=== PATIENT | male | born 1985 | race Caucasian/White ===

== ENCOUNTER 2016-10-18 | Inpatient (IN) | END 2017-10-17 23:59 | disposition other institution (70) | DRG 133 | DX: J96.10 Chronic respiratory failure, unspecified whether with hypoxia or hypercapnia (principal); G93.1 Anoxic brain damage, not elsewhere classified; G91.1 Obstructive hydrocephalus; Z93.0 Tracheostomy status; R13.10 Dysphagia, unspecified; I50.9 Heart failure, unspecified; Z93.1 Gastrostomy status; E11.9 Type 2 diabetes mellitus without complications; Z22.8 Carrier of other infectious diseases; Z98.2 Presence of cerebrospinal fluid drainage device; X58.XXXA Exposure to other specified factors, initial encounter; K59.00 Constipation, unspecified ==

== ENCOUNTER 2017-10-18 | Inpatient (IN) | END 2018-10-17 23:59 | disposition still patient (30) | DRG 133 | DX: J96.10 Chronic respiratory failure, unspecified whether with hypoxia or hypercapnia (principal); G93.1 Anoxic brain damage, not elsewhere classified; G91.1 Obstructive hydrocephalus; J18.9 Pneumonia, unspecified organism; Z93.0 Tracheostomy status; I50.9 Heart failure, unspecified; R13.10 Dysphagia, unspecified; Z93.1 Gastrostomy status; E11.9 Type 2 diabetes mellitus without complications; Z22.8 Carrier of other infectious diseases; Z98.2 Presence of cerebrospinal fluid drainage device; X58.XXXA Exposure to other specified factors, initial encounter; K59.00 Constipation, unspecified; E78.5 Hyperlipidemia, unspecified; H00.016 Hordeolum externum left eye, unspecified eyelid; H00.19 Chalazion unspecified eye, unspecified eyelid; L30.9 Dermatitis, unspecified ==

== ENCOUNTER 2018-10-18 | Inpatient (IN) | END 2019-10-17 23:59 | disposition still patient (30) | DRG 189 | DX: J96.10 Chronic respiratory failure, unspecified whether with hypoxia or hypercapnia (principal); G93.1 Anoxic brain damage, not elsewhere classified; G91.1 Obstructive hydrocephalus; Z93.0 Tracheostomy status; I50.9 Heart failure, unspecified; R13.10 Dysphagia, unspecified; Z93.1 Gastrostomy status; Z86.74 Personal history of sudden cardiac arrest; E11.9 Type 2 diabetes mellitus without complications; Z22.8 Carrier of other infectious diseases; Z98.2 Presence of cerebrospinal fluid drainage device; E78.5 Hyperlipidemia, unspecified; H01.003 Unspecified blepharitis right eye, unspecified eyelid; H10.9 Unspecified conjunctivitis; K21.9 Gastro-esophageal reflux disease without esophagitis; L08.9 Local infection of the skin and subcutaneous tissue, unspecified ==

== ENCOUNTER 2020-06-16 09:21 | Inpatient (IN) | payer MEDICARE, OTHER ==
[~2020-06-16] VITALS: Ht 167.6 cm; Wt 62.1 kg
[~2020-06-16 09:21] MED LIST: ACET650S26 GT; ALBU2.5V38 IH; BACL10TA GT; BISA10SU12 RC; CHOL100043 GT; HEPA500014 IJ; OMEG1CAP GT; OMEP20CA15 GT; [UNRECOGNIZED DRUG - OTHER] GT
--- NOTE | 2020-06-16 09:26 | NUR ---
MD at bedside to assess patient.
[2020-06-16] MEDS ORDERED: LORA10TA7 PO (10:01)
--- NOTE | 2020-06-16 10:05 | NUR ---
Patient suctiond via tracheostomy. Saturation 96%.
[2020-06-16] MEDS ORDERED: LACT-209 GT (10:10)
[2020-06-16] MEDS ORDERED: Z GUARD REMEDY PASTE TP (10:10)
[2020-06-16] MEDS ORDERED: VITAMIN A&D OINT TP (10:10)
[2020-06-16] MEDS ORDERED: HYDR237S13 TP (10:10)
[2020-06-16 11:38] LABS: BASOPHILS % (AUTO) 0.3 % (0.0-2.0); EOSINOPHILS # (AUTO) 0.1 K/uL (0.0-0.7); EOSINOPHILS % (AUTO) 0.7 % (0.0-7.0); HEMATOCRIT 47.6 % (36.7-47.1); HEMOGLOBIN 16.1 g/dL (12.5-16.3); LYMPHOCYTES # (AUTO) 2.2 K/uL (20.0-40.0); LYMPHOCYTES % (AUTO) 19.9 % (20.5-51.5); MEAN CORPUSCULAR HEMOGLOBIN 31.5 uug (23.8-33.4); MEAN CORPUSCULAR HGB CONC 34 g/dL (32.5-36.3); MEAN CORPUSCULAR VOLUME 93.2 fL (73.0-96.2); MONOCYTES % (AUTO) 8.7 % (0.0-11.0); NEUTROPHILS # (AUTO) 7.9 K/uL (1.8-8.9); NEUTROPHILS % (AUTO) 70.4 % (38.5-71.5); PLATELET COUNT (AUTO) 209 K/uL (152-348); WHITE BLOOD COUNT (AUTO) 11.2 K/uL (3.6-10.2)
[2020-06-16 11:45] LABS: CREATININE 0.8 mg/dL (0.6-1.3); POTASSIUM 4.6 mmol/L (3.5-5.1)
[2020-06-16 11:50] LABS: BILIRUBIN,TOTAL 0.7 mg/dL (0.2-1.0); TOTAL PROTEIN, SERUM 8.1 g/dL (6.4-8.2)
--- NOTE | 2020-06-16 12:47 | NUR ---
Report called to Rosalie patient being admitted to 3rd floor 312
[2020-06-16] MEDS ORDERED: HYDROCODONE/APAP 5-325MG TABLET GT PRN (13:00)
[2020-06-16] MEDS ORDERED: Z GUARD REMEDY PASTE 57 GM TUBE TOP PRN (13:00)
[2020-06-16] MEDS ORDERED: MAGNESIUM HYDROXIDE 30 ML LIQUID UDC GT PRN (13:00)
[2020-06-16] MEDS ORDERED: ONDANSETRON 4 MG/2 ML VIAL IV PRN (13:00)
--- NOTE | 2020-06-16 14:00 | NUR ---
Patient brought up from ER in bed. He is awake, eyes are open, unable to assess orientation. Patient shows no signs of respiratory distress at this time. Patient G-tube in out and patient is severely contracted. Patient has a mask on because he has been spitting at staff. Patient seems agitated when we try to reposition in bed. Patient is a aspiration risk so bed is elevated to 35 degrees. Patient is NPO. No IV access available. Safety precautions in place, be in the lowest position and locked with alarm activated. Will continue to observe and monitor. Addendum: 06/16/20 at 1916 by ANTOINETTE CHESTER RN Patient does have IV access in left forearm 20 gauge
[2020-06-16 15:00] VITALS: BP 122/46
--- NOTE | 2020-06-16 18:28 | NUR ---
Patient is resting in bed with no signs of distress noted. Patient is stable. No IV access. Patient is on 6 L of oxygen and saturating well. Patient is currently NPO pending EDG scheduled for tomorrow at 1130. Safety precautions in place, bed is lowest position and locked with alarm activated. Will endorse patient to the oncoming nurse.
--- NOTE | 2020-06-16 19:15 | NUR ---
Patient does have IV access in left forearm 20 gauge
--- NOTE | 2020-06-16 19:45 | NUR ---
Received patient asleep. Patient shows no signs or symptoms of distress at this time. Vital signs stable. NSR on tele monitor. Bed set to lowest position. Call light within reach. Padded side rails X2 are up. Will continue to monitor patient.
[2020-06-16 20:02] VITALS: BP 120/60
[2020-06-16] MEDS ORDERED: IV NS 1000 ML 1,000 ML IV PRN (21:30)
[2020-06-17 00:39] VITALS: BP 115/73
--- NOTE | 2020-06-17 00:45 | NUR ---
Report given to to GURJIT Moon for continuity of care.
[2020-06-17 04:00] VITALS: BP 113/61
[2020-06-17 06:37] LABS: BASOPHILS % (AUTO) 0.2 % (0.0-2.0); EOSINOPHILS # (AUTO) 0.1 K/uL (0.0-0.7); EOSINOPHILS % (AUTO) 0.8 % (0.0-7.0); HEMOGLOBIN 15.4 g/dL (12.5-16.3); LYMPHOCYTES # (AUTO) 2.4 K/uL (20.0-40.0); LYMPHOCYTES % (AUTO) 19.3 % (20.5-51.5); MEAN CORPUSCULAR HEMOGLOBIN 32.1 uug (23.8-33.4); MEAN CORPUSCULAR HGB CONC 34 g/dL (32.5-36.3); MEAN CORPUSCULAR VOLUME 93.7 fL (73.0-96.2); MONOCYTES # (AUTO) 1.6 K/uL (2.0-10.0); MONOCYTES % (AUTO) 12.4 % (0.0-11.0); NEUTROPHILS # (AUTO) 8.4 K/uL (1.8-8.9); NEUTROPHILS % (AUTO) 67.3 % (38.5-71.5); PLATELET COUNT (AUTO) 215 K/uL (152-348); WHITE BLOOD COUNT (AUTO) 12.5 K/uL (3.6-10.2)
--- NOTE | 2020-06-17 06:50 | NUR ---
Patient slept intermittently nonverbal with trach Fio2 at 28%, saturating well at 97% no s/s of distress.Bilateral upper ext and lower extremities contracted .HOB remained elevated.Suctioned PRN via trach tolerated well.Right upper arm 22 g intact with NS running well at 75cc /hr .Changed and repositioned patient with 2 person assist.Off load bilateral heel.Bed in lowest position and locked.Endorsed to oncoming shift.
[2020-06-17 06:54] LABS: CREATININE 0.8 mg/dL (0.6-1.3); MAGNESIUM 2.2 mg/dL (1.8-2.4); PHOSPHOROUS 3.3 mg/dL (2.5-4.9); POTASSIUM 4.1 mmol/L (3.5-5.1)
[2020-06-17 08:11] VITALS: BP 128/55
--- NOTE | 2020-06-17 09:40 | NUR ---
With I&O catheter patient with 350 cc urine output.
[2020-06-17] MEDS ORDERED: CLINDAMYCIN PHOSPHATE 600 MG/4 ML VIAL ONE (11:33)
--- NOTE | 2020-06-17 11:45 | NUR ---
Pt. taken down for PEG replacement. vitals stable.
--- NOTE | 2020-06-17 13:35 | NUR ---
Patient back from surgery G-T replaced vitals stable sbp of 117/67, HR of 88, 98.9, RR 18 and saturation of 98% on cool-aerosol. No visible signs of distress and orders to use G-t. received. Patient wearing a binder. Addendum: 06/17/20 at 1610 by AMANDA MCKEON RN PEG-T insertion site c.d.i. no s/of complications noted, binder abdominal binder in place.
[2020-06-17 13:36] VITALS: BP 117/67
--- NOTE | 2020-06-17 14:00 | NUR ---
Attending notified that patient is not wetting diaper, orders to continue monitor received.
[2020-06-17 16:00] VITALS: BP 140/75
--- NOTE | 2020-06-17 16:07 | NUR ---
Telephone report given to Palmira Natarajan. latest vitals reported: sbp 140/75, hr of 104 temp of 100.6 for which pt. was medicated and reported to receiving rn. SAt of 95-100% on cool aerosol. IV line to DENITA martin. Awaiting for pt. to be pickling grader.
--- NOTE | 2020-06-17 16:45 | NUR ---
Patient taken up via own bed by Palmira Natarajan. vitals stable no visible signs of distress.
== END 2020-06-17 16:40 | DRG 394 ==
LOC: ER 09:21 → TELE3 13:51
PROVIDERS: ADMIT Internal Medicine; ATTEND Internal Medicine
PROC: 0D20XUZ Change Feeding Device in Upper Intestinal Tract, External Approach (ICD-10-PCS; principal; 2020-06-17)
DX: Z43.1 Encounter for attention to gastrostomy (principal); G93.1 Anoxic brain damage, not elsewhere classified; J96.10 Chronic respiratory failure, unspecified whether with hypoxia or hypercapnia; G82.20 Paraplegia, unspecified; Z98.2 Presence of cerebrospinal fluid drainage device; D72.829 Elevated white blood cell count, unspecified; G40.909 Epilepsy, unspecified, not intractable, without status epilepticus; Z93.0 Tracheostomy status; K21.9 Gastro-esophageal reflux disease without esophagitis; Z86.69 Personal history of other diseases of the nervous system and sense organs
CPT/HCPCS: 36415; 71045; 74018; 83735; 84100; 85025; 85610; 87040; 87086; A4217; A4663; C1758; G0378; J3490; J7030

== ENCOUNTER → 2020-10-17 23:59 | Inpatient (IN) | payer MEDICARE, OTHER ==
[2019-10-19 11:28] VITALS: BP 125/61
[2019-10-19 20:14] VITALS: BP 95/58
[2019-10-19] MEDS: Z GUARD REMEDY PASTE 57 GM TUBE TOP SCH (20:28)
[2019-10-19] MEDS: [UNRECOGNIZED DRUG - OTHER] GT SCH (20:28)
[2019-10-19] MEDS: BACLOFEN 10 MG TABLET GT SCH (20:28)
[2019-10-19] MEDS: COD LIVER OIL/ZINC OXIDE OINT 113 GM TUBE TP SCH (20:28)
[2019-10-19] MEDS: BENZOYL PEROXIDE 10% GEL 60 GM TUBE TP SCH (20:28)
[2019-10-19] MEDS: OMEGA-3 FATTY ACIDS/FISH OIL CAPSULE GT SCH (20:28)
[2019-10-19] MEDS: [UNRECOGNIZED DRUG - OTHER] XX SCH (20:29)
[2019-10-19] MEDS: HYDROGEN PEROXIDE 3% 118 ML BOTTLE TP SCH (20:40)
[2019-10-19] MEDS: HEPARIN SODIUM,PORCINE 5,000 UNITS/ML VIAL SQ SCH (21:51)
[2019-10-19 22:25] VITALS: BP 95/58
[2019-10-20] MEDS: CHOLECALCIFEROL 1,000 UNIT TABLET GT SCH (05:51)
[2019-10-20] MEDS: LORATADINE 10 MG TABLET GT SCH (05:51)
[2019-10-20] MEDS: OMEPRAZOLE 20 MG CAPSULE.DR GT SCH (05:51)
[2019-10-20] MEDS: [UNRECOGNIZED DRUG - OTHER] GT SCH ×2 (08:07→20:25)
[2019-10-20] MEDS: BACLOFEN 10 MG TABLET GT SCH ×2 (08:07→20:25)
[2019-10-20] MEDS: HEPARIN SODIUM,PORCINE 5,000 UNITS/ML VIAL SQ SCH ×2 (08:08→21:00)
[2019-10-20] MEDS: COD LIVER OIL/ZINC OXIDE OINT 113 GM TUBE TP SCH ×2 (08:09→20:26)
[2019-10-20] MEDS: Z GUARD REMEDY PASTE 57 GM TUBE TOP SCH ×2 (08:09→20:26)
[2019-10-20] MEDS: VITAMINS A AND D OINT TP SCH (09:00)
[2019-10-20] MEDS: [UNRECOGNIZED DRUG - OTHER] XX SCH ×2 (09:00→20:26)
[2019-10-20] MEDS: HYDROGEN PEROXIDE 3% 118 ML BOTTLE TP SCH ×2 (09:54→21:31)
[2019-10-20 11:14] VITALS: BP 113/52
[2019-10-20 20:25] VITALS: BP 100/62
[2019-10-20] MEDS: OMEGA-3 FATTY ACIDS/FISH OIL CAPSULE GT SCH (20:25)
[2019-10-20] MEDS: BENZOYL PEROXIDE 10% GEL 60 GM TUBE TP SCH (20:26)
[2019-10-21] MEDS: JEVITY 1.2 1000 ML LIQUID GT PRN (05:31)
[2019-10-21] MEDS: LORATADINE 10 MG TABLET GT SCH (05:31)
[2019-10-21] MEDS: OMEPRAZOLE 20 MG CAPSULE.DR GT SCH (05:31)
[2019-10-21] MEDS: CHOLECALCIFEROL 1,000 UNIT TABLET GT SCH (05:31)
[2019-10-21 07:45] VITALS: BP 122/65
[2019-10-21] MEDS: [UNRECOGNIZED DRUG - OTHER] GT SCH ×2 (08:17→21:39)
[2019-10-21] MEDS: BACLOFEN 10 MG TABLET GT SCH ×2 (08:17→21:39)
[2019-10-21] MEDS: COD LIVER OIL/ZINC OXIDE OINT 113 GM TUBE TP SCH ×2 (08:18→21:46)
[2019-10-21] MEDS: Z GUARD REMEDY PASTE 57 GM TUBE TOP SCH ×2 (08:18→21:46)
[2019-10-21] MEDS: VITAMINS A AND D OINT TP SCH (08:19)
[2019-10-21] MEDS: [UNRECOGNIZED DRUG - OTHER] XX SCH ×2 (08:19→21:46)
[2019-10-21] MEDS: HEPARIN SODIUM,PORCINE 5,000 UNITS/ML VIAL SQ SCH ×2 (08:22→21:44)
[2019-10-21] MEDS: HYDROGEN PEROXIDE 3% 118 ML BOTTLE TP SCH ×2 (09:30→21:56)
[2019-10-21] MEDS: OMEGA-3 FATTY ACIDS/FISH OIL CAPSULE GT SCH (21:39)
[2019-10-21] MEDS: BENZOYL PEROXIDE 10% GEL 60 GM TUBE TP SCH (21:46)
[2019-10-21 22:35] VITALS: BP 100/70
[2019-10-22] MEDS: JEVITY 1.2 1000 ML LIQUID GT PRN (01:17)
[2019-10-22] MEDS: CHOLECALCIFEROL 1,000 UNIT TABLET GT SCH (06:04)
[2019-10-22] MEDS: OMEPRAZOLE 20 MG CAPSULE.DR GT SCH (06:04)
[2019-10-22] MEDS: LORATADINE 10 MG TABLET GT SCH (06:04)
[2019-10-22] MEDS: HYDROGEN PEROXIDE 3% 118 ML BOTTLE TP SCH ×2 (07:45→21:17)
[2019-10-22 08:03] VITALS: BP 108/67
[2019-10-22] MEDS: Z GUARD REMEDY PASTE 57 GM TUBE TOP SCH ×2 (08:33→21:47)
[2019-10-22] MEDS: HEPARIN SODIUM,PORCINE 5,000 UNITS/ML VIAL SQ SCH ×2 (08:33→20:21)
[2019-10-22] MEDS: BACLOFEN 10 MG TABLET GT SCH ×2 (08:33→20:19)
[2019-10-22] MEDS: [UNRECOGNIZED DRUG - OTHER] GT SCH ×2 (08:33→20:19)
[2019-10-22] MEDS: COD LIVER OIL/ZINC OXIDE OINT 113 GM TUBE TP SCH ×2 (08:34→21:47)
[2019-10-22] MEDS: [UNRECOGNIZED DRUG - OTHER] XX SCH ×2 (08:34→21:47)
[2019-10-22] MEDS: VITAMINS A AND D OINT TP SCH (08:34)
[2019-10-22] MEDS: OMEGA-3 FATTY ACIDS/FISH OIL CAPSULE GT SCH (20:19)
[2019-10-22] MEDS: BENZOYL PEROXIDE 10% GEL 60 GM TUBE TP SCH (21:47)
[2019-10-22 22:00] VITALS: BP 101/74
[2019-10-23] MEDS: CHOLECALCIFEROL 1,000 UNIT TABLET GT SCH (05:29)
[2019-10-23] MEDS: LORATADINE 10 MG TABLET GT SCH (05:29)
[2019-10-23] MEDS: OMEPRAZOLE 20 MG CAPSULE.DR GT SCH (05:29)
[2019-10-23] MEDS: JEVITY 1.2 1000 ML LIQUID GT PRN (06:03)
[2019-10-23 08:03] VITALS: BP 113/77
[2019-10-23] MEDS: [UNRECOGNIZED DRUG - OTHER] GT SCH ×2 (08:23→21:10)
[2019-10-23] MEDS: BACLOFEN 10 MG TABLET GT SCH ×2 (08:23→21:09)
[2019-10-23] MEDS: Z GUARD REMEDY PASTE 57 GM TUBE TOP SCH ×2 (08:24→21:10)
[2019-10-23] MEDS: HEPARIN SODIUM,PORCINE 5,000 UNITS/ML VIAL SQ SCH ×2 (08:24→21:14)
[2019-10-23] MEDS: COD LIVER OIL/ZINC OXIDE OINT 113 GM TUBE TP SCH ×2 (08:25→21:10)
[2019-10-23] MEDS: VITAMINS A AND D OINT TP SCH (08:25)
[2019-10-23] MEDS: HYDROGEN PEROXIDE 3% 118 ML BOTTLE TP SCH ×2 (09:00→21:07)
[2019-10-23] MEDS: [UNRECOGNIZED DRUG - OTHER] XX SCH ×2 (09:57→21:11)
[2019-10-23 20:29] VITALS: BP 110/69
[2019-10-23] MEDS: OMEGA-3 FATTY ACIDS/FISH OIL CAPSULE GT SCH (21:09)
[2019-10-23] MEDS: BENZOYL PEROXIDE 10% GEL 60 GM TUBE TP SCH (21:10)
[2019-10-24] MEDS: JEVITY 1.2 1000 ML LIQUID GT PRN (00:55)
[2019-10-24] MEDS: LORATADINE 10 MG TABLET GT SCH (05:52)
[2019-10-24] MEDS: CHOLECALCIFEROL 1,000 UNIT TABLET GT SCH (05:53)
[2019-10-24] MEDS: OMEPRAZOLE 20 MG CAPSULE.DR GT SCH (05:53)
[2019-10-24 08:03] VITALS: BP 118/72
[2019-10-24] MEDS: HEPARIN SODIUM,PORCINE 5,000 UNITS/ML VIAL SQ SCH ×2 (08:23→20:35)
[2019-10-24] MEDS: Z GUARD REMEDY PASTE 57 GM TUBE TOP SCH ×2 (08:34→20:33)
[2019-10-24] MEDS: [UNRECOGNIZED DRUG - OTHER] GT SCH ×2 (08:34→20:33)
[2019-10-24] MEDS: VITAMINS A AND D OINT TP SCH (08:34)
[2019-10-24] MEDS: BACLOFEN 10 MG TABLET GT SCH ×2 (08:34→20:33)
[2019-10-24] MEDS: COD LIVER OIL/ZINC OXIDE OINT 113 GM TUBE TP SCH ×2 (08:34→20:33)
[2019-10-24] MEDS: [UNRECOGNIZED DRUG - OTHER] XX SCH ×2 (08:35→20:33)
[2019-10-24] MEDS: HYDROGEN PEROXIDE 3% 118 ML BOTTLE TP SCH ×2 (09:00→20:33)
[2019-10-24 19:57] VITALS: BP 110/73
[2019-10-24] MEDS: OMEGA-3 FATTY ACIDS/FISH OIL CAPSULE GT SCH (20:33)
[2019-10-24] MEDS: BENZOYL PEROXIDE 10% GEL 60 GM TUBE TP SCH (20:40)
[2019-10-25] MEDS: LORATADINE 10 MG TABLET GT SCH (05:15)
[2019-10-25] MEDS: OMEPRAZOLE 20 MG CAPSULE.DR GT SCH (05:15)
[2019-10-25] MEDS: CHOLECALCIFEROL 1,000 UNIT TABLET GT SCH (05:16)
[2019-10-25 08:00] VITALS: BP 126/54
[2019-10-25] MEDS: Z GUARD REMEDY PASTE 57 GM TUBE TOP SCH ×2 (09:00→21:11)
[2019-10-25] MEDS: [UNRECOGNIZED DRUG - OTHER] GT SCH ×2 (09:00→21:10)
[2019-10-25] MEDS: [UNRECOGNIZED DRUG - OTHER] XX SCH ×2 (09:00→21:11)
[2019-10-25] MEDS: BACLOFEN 10 MG TABLET GT SCH ×2 (09:00→21:10)
[2019-10-25] MEDS: VITAMINS A AND D OINT TP SCH (09:00)
[2019-10-25] MEDS: COD LIVER OIL/ZINC OXIDE OINT 113 GM TUBE TP SCH ×2 (09:00→21:11)
[2019-10-25] MEDS: HEPARIN SODIUM,PORCINE 5,000 UNITS/ML VIAL SQ SCH ×2 (09:00→21:11)
[2019-10-25] MEDS: HYDROGEN PEROXIDE 3% 118 ML BOTTLE TP SCH ×2 (09:07→21:04)
--- NOTE | 2019-10-25 10:57 | NUR ---
SW called patient's mother Lizzette [phone] to discuss a time to meet to review and obtain signatures on patient's annual admission paperwork. Lizzette stated that she will be visiting the patient tomorrow night, and asked if SW can leave the forms for her to review and sign. CHARU stated that SW will leave the paperwork in a sealed envelope in patient's room, and that Lizzette can review and sign them, and return them to SW once she is done. Lizzette expressed agreement. CHARU prepared the packet of forms, and left them in patient's room, in a sealed envelope, with Lizzette's name written on the envelope.
[2019-10-25 20:19] VITALS: BP 101/73
[2019-10-25] MEDS: OMEGA-3 FATTY ACIDS/FISH OIL CAPSULE GT SCH (21:10)
[2019-10-25] MEDS: BENZOYL PEROXIDE 10% GEL 60 GM TUBE TP SCH (21:11)
[2019-10-25] MEDS: JEVITY 1.2 1000 ML LIQUID GT PRN (21:11)
[2019-10-26] MEDS: LORATADINE 10 MG TABLET GT SCH (06:20)
[2019-10-26] MEDS: CHOLECALCIFEROL 1,000 UNIT TABLET GT SCH (06:21)
[2019-10-26] MEDS: OMEPRAZOLE 20 MG CAPSULE.DR GT SCH (06:21)
[2019-10-26] MEDS: BACLOFEN 10 MG TABLET GT SCH ×2 (08:15→21:39)
[2019-10-26] MEDS: [UNRECOGNIZED DRUG - OTHER] GT SCH ×2 (08:16→21:39)
[2019-10-26] MEDS: VITAMINS A AND D OINT TP SCH (08:17)
[2019-10-26] MEDS: Z GUARD REMEDY PASTE 57 GM TUBE TOP SCH ×2 (08:17→21:42)
[2019-10-26] MEDS: HEPARIN SODIUM,PORCINE 5,000 UNITS/ML VIAL SQ SCH ×2 (08:17→21:41)
[2019-10-26] MEDS: COD LIVER OIL/ZINC OXIDE OINT 113 GM TUBE TP SCH ×2 (08:17→21:42)
[2019-10-26] MEDS: [UNRECOGNIZED DRUG - OTHER] XX SCH ×2 (08:18→21:44)
[2019-10-26 08:30] VITALS: BP 106/51
[2019-10-26] MEDS: HYDROGEN PEROXIDE 3% 118 ML BOTTLE TP SCH ×2 (09:00→21:57)
[2019-10-26] MEDS: JEVITY 1.2 1000 ML LIQUID GT PRN (17:11)
[2019-10-26 20:48] VITALS: BP 119/77
[2019-10-26] MEDS: OMEGA-3 FATTY ACIDS/FISH OIL CAPSULE GT SCH (21:38)
[2019-10-26] MEDS: BENZOYL PEROXIDE 10% GEL 60 GM TUBE TP SCH (21:42)
[2019-10-27] MEDS: OMEPRAZOLE 20 MG CAPSULE.DR GT SCH (06:00)
[2019-10-27] MEDS: CHOLECALCIFEROL 1,000 UNIT TABLET GT SCH (06:00)
[2019-10-27] MEDS: LORATADINE 10 MG TABLET GT SCH (06:00)
[2019-10-27 08:02] VITALS: BP 121/73
[2019-10-27] MEDS: [UNRECOGNIZED DRUG - OTHER] GT SCH ×2 (08:18→20:42)
[2019-10-27] MEDS: BACLOFEN 10 MG TABLET GT SCH ×2 (08:18→20:42)
[2019-10-27] MEDS: COD LIVER OIL/ZINC OXIDE OINT 113 GM TUBE TP SCH ×2 (08:19→20:42)
[2019-10-27] MEDS: Z GUARD REMEDY PASTE 57 GM TUBE TOP SCH ×2 (08:19→20:42)
[2019-10-27] MEDS: [UNRECOGNIZED DRUG - OTHER] XX SCH ×2 (08:19→20:42)
[2019-10-27] MEDS: HEPARIN SODIUM,PORCINE 5,000 UNITS/ML VIAL SQ SCH ×2 (08:19→20:42)
[2019-10-27] MEDS: VITAMINS A AND D OINT TP SCH (08:19)
[2019-10-27] MEDS: HYDROGEN PEROXIDE 3% 118 ML BOTTLE TP SCH ×2 (09:00→21:29)
[2019-10-27] MEDS: JEVITY 1.2 1000 ML LIQUID GT PRN (12:15)
[2019-10-27 20:41] VITALS: BP 111/76
[2019-10-27] MEDS: OMEGA-3 FATTY ACIDS/FISH OIL CAPSULE GT SCH (20:41)
[2019-10-27] MEDS: BENZOYL PEROXIDE 10% GEL 60 GM TUBE TP SCH (20:42)
[2019-10-28] MEDS: JEVITY 1.2 1000 ML LIQUID GT PRN ×2 (02:15→20:54)
[2019-10-28] MEDS: OMEPRAZOLE 20 MG CAPSULE.DR GT SCH (05:58)
[2019-10-28] MEDS: LORATADINE 10 MG TABLET GT SCH (05:58)
[2019-10-28] MEDS: CHOLECALCIFEROL 1,000 UNIT TABLET GT SCH (05:58)
[2019-10-28 08:02] VITALS: BP 128/86
[2019-10-28] MEDS: [UNRECOGNIZED DRUG - OTHER] XX SCH ×2 (09:00→20:26)
[2019-10-28] MEDS: Z GUARD REMEDY PASTE 57 GM TUBE TOP SCH ×2 (09:00→20:26)
[2019-10-28] MEDS: BACLOFEN 10 MG TABLET GT SCH ×2 (09:00→20:24)
[2019-10-28] MEDS: VITAMINS A AND D OINT TP SCH (09:00)
[2019-10-28] MEDS: [UNRECOGNIZED DRUG - OTHER] GT SCH ×2 (09:00→20:24)
[2019-10-28] MEDS: COD LIVER OIL/ZINC OXIDE OINT 113 GM TUBE TP SCH ×2 (09:00→20:26)
[2019-10-28] MEDS: HYDROGEN PEROXIDE 3% 118 ML BOTTLE TP SCH ×2 (09:00→20:52)
[2019-10-28] MEDS: HEPARIN SODIUM,PORCINE 5,000 UNITS/ML VIAL SQ SCH ×2 (09:00→20:24)
[2019-10-28] MEDS: OMEGA-3 FATTY ACIDS/FISH OIL CAPSULE GT SCH (20:24)
[2019-10-28] MEDS: BENZOYL PEROXIDE 10% GEL 60 GM TUBE TP SCH (20:26)
[2019-10-28 20:37] VITALS: BP 115/82
[2019-10-29] MEDS: CHOLECALCIFEROL 1,000 UNIT TABLET GT SCH (05:34)
[2019-10-29] MEDS: OMEPRAZOLE 20 MG CAPSULE.DR GT SCH (05:34)
[2019-10-29] MEDS: LORATADINE 10 MG TABLET GT SCH (05:34)
[2019-10-29 08:02] VITALS: BP 117/74
[2019-10-29] MEDS: HEPARIN SODIUM,PORCINE 5,000 UNITS/ML VIAL SQ SCH ×2 (08:33→20:19)
[2019-10-29] MEDS: [UNRECOGNIZED DRUG - OTHER] XX SCH ×2 (08:33→20:19)
[2019-10-29] MEDS: VITAMINS A AND D OINT TP SCH (08:33)
[2019-10-29] MEDS: Z GUARD REMEDY PASTE 57 GM TUBE TOP SCH ×2 (08:33→20:19)
[2019-10-29] MEDS: COD LIVER OIL/ZINC OXIDE OINT 113 GM TUBE TP SCH ×2 (08:33→20:19)
[2019-10-29] MEDS: BACLOFEN 10 MG TABLET GT SCH ×2 (09:06→20:18)
[2019-10-29] MEDS: [UNRECOGNIZED DRUG - OTHER] GT SCH ×2 (09:06→20:18)
[2019-10-29] MEDS: HYDROGEN PEROXIDE 3% 118 ML BOTTLE TP SCH ×2 (09:57→20:50)
[2019-10-29] MEDS: OMEGA-3 FATTY ACIDS/FISH OIL CAPSULE GT SCH (20:18)
[2019-10-29] MEDS: BENZOYL PEROXIDE 10% GEL 60 GM TUBE TP SCH (20:19)
[2019-10-29 20:20] VITALS: BP 110/66
[2019-10-30] MEDS: OMEPRAZOLE 20 MG CAPSULE.DR GT SCH (05:39)
[2019-10-30] MEDS: LORATADINE 10 MG TABLET GT SCH (05:39)
[2019-10-30] MEDS: CHOLECALCIFEROL 1,000 UNIT TABLET GT SCH (05:39)
[2019-10-30 08:03] VITALS: BP 110/65
[2019-10-30] MEDS: VITAMINS A AND D OINT TP SCH (09:00)
[2019-10-30] MEDS: COD LIVER OIL/ZINC OXIDE OINT 113 GM TUBE TP SCH ×2 (09:00→20:40)
[2019-10-30] MEDS: [UNRECOGNIZED DRUG - OTHER] GT SCH ×2 (09:00→20:39)
[2019-10-30] MEDS: BACLOFEN 10 MG TABLET GT SCH ×2 (09:00→20:39)
[2019-10-30] MEDS: HYDROGEN PEROXIDE 3% 118 ML BOTTLE TP SCH ×2 (09:00→20:13)
[2019-10-30] MEDS: HEPARIN SODIUM,PORCINE 5,000 UNITS/ML VIAL SQ SCH ×2 (09:00→21:43)
[2019-10-30] MEDS: [UNRECOGNIZED DRUG - OTHER] XX SCH ×2 (09:00→20:40)
[2019-10-30] MEDS: Z GUARD REMEDY PASTE 57 GM TUBE TOP SCH ×2 (09:00→20:40)
[2019-10-30] MEDS: OMEGA-3 FATTY ACIDS/FISH OIL CAPSULE GT SCH (20:39)
[2019-10-30] MEDS: BENZOYL PEROXIDE 10% GEL 60 GM TUBE TP SCH (20:40)
[2019-10-30 20:57] VITALS: BP 115/70
[2019-10-31] MEDS: CHOLECALCIFEROL 1,000 UNIT TABLET GT SCH (05:27)
[2019-10-31] MEDS: LORATADINE 10 MG TABLET GT SCH (05:27)
[2019-10-31] MEDS: OMEPRAZOLE 20 MG CAPSULE.DR GT SCH (05:27)
[2019-10-31 08:03] VITALS: BP 124/68
[2019-10-31] MEDS: HYDROGEN PEROXIDE 3% 118 ML BOTTLE TP SCH ×2 (09:00→20:58)
[2019-10-31] MEDS: BACLOFEN 10 MG TABLET GT SCH ×2 (09:21→21:24)
[2019-10-31] MEDS: [UNRECOGNIZED DRUG - OTHER] GT SCH ×2 (09:22→21:24)
[2019-10-31] MEDS: COD LIVER OIL/ZINC OXIDE OINT 113 GM TUBE TP SCH ×2 (09:24→21:24)
[2019-10-31] MEDS: HEPARIN SODIUM,PORCINE 5,000 UNITS/ML VIAL SQ SCH ×2 (09:24→21:29)
[2019-10-31] MEDS: Z GUARD REMEDY PASTE 57 GM TUBE TOP SCH ×2 (09:24→21:24)
[2019-10-31] MEDS: [UNRECOGNIZED DRUG - OTHER] XX SCH ×2 (09:24→21:24)
[2019-10-31] MEDS: VITAMINS A AND D OINT TP SCH (09:24)
[2019-10-31] MEDS: JEVITY 1.2 1000 ML LIQUID GT PRN (13:35)
[2019-10-31 20:17] VITALS: BP 119/78
[2019-10-31] MEDS: OMEGA-3 FATTY ACIDS/FISH OIL CAPSULE GT SCH (21:24)
[2019-10-31] MEDS: BENZOYL PEROXIDE 10% GEL 60 GM TUBE TP SCH (21:24)
[2019-11-01] MEDS: OMEPRAZOLE 20 MG CAPSULE.DR GT SCH (06:12)
[2019-11-01] MEDS: LORATADINE 10 MG TABLET GT SCH (06:12)
[2019-11-01] MEDS: CHOLECALCIFEROL 1,000 UNIT TABLET GT SCH (06:12)
[2019-11-01 08:03] VITALS: BP 122/55
[2019-11-01] MEDS: BACLOFEN 10 MG TABLET GT SCH ×2 (08:15→20:58)
[2019-11-01] MEDS: [UNRECOGNIZED DRUG - OTHER] GT SCH ×2 (08:15→20:58)
[2019-11-01] MEDS: Z GUARD REMEDY PASTE 57 GM TUBE TOP SCH ×2 (08:16→20:58)
[2019-11-01] MEDS: VITAMINS A AND D OINT TP SCH (08:16)
[2019-11-01] MEDS: COD LIVER OIL/ZINC OXIDE OINT 113 GM TUBE TP SCH ×2 (08:16→20:58)
[2019-11-01] MEDS: [UNRECOGNIZED DRUG - OTHER] XX SCH ×2 (08:16→20:59)
[2019-11-01] MEDS: HEPARIN SODIUM,PORCINE 5,000 UNITS/ML VIAL SQ SCH ×2 (08:16→21:08)
[2019-11-01] MEDS: HYDROGEN PEROXIDE 3% 118 ML BOTTLE TP SCH ×2 (08:42→21:08)
--- NOTE | 2019-11-01 11:23 | NUR ---
SW received patient's signed annual admission paperwork today, signed by patient's mother Lizzette. The paperwork included: Conditions of Admission, Patient Rights Acknowledgement, An Important Message from Medicare about your Rights, Documentation of Preferred Intensity of Care, Voluntary Prior Express Consent Form, Race and Ethnicity Patient Self-Identification, and the [facility] Agreement. For assessment/quarterly information, see patient's previous chart #[id number].
[2019-11-01 20:22] VITALS: BP 119/85
[2019-11-01] MEDS: OMEGA-3 FATTY ACIDS/FISH OIL CAPSULE GT SCH (20:58)
[2019-11-01] MEDS: BENZOYL PEROXIDE 10% GEL 60 GM TUBE TP SCH (20:59)
[2019-11-02] MEDS: JEVITY 1.2 1000 ML LIQUID GT PRN (04:27)
[2019-11-02] MEDS: CHOLECALCIFEROL 1,000 UNIT TABLET GT SCH (06:08)
[2019-11-02] MEDS: LORATADINE 10 MG TABLET GT SCH (06:08)
[2019-11-02] MEDS: OMEPRAZOLE 20 MG CAPSULE.DR GT SCH (06:08)
[2019-11-02 08:00] VITALS: BP_SYST 130; BP_SYST 150; BP_DIAS 120; BP_DIAS 60
[2019-11-02] MEDS: BACLOFEN 10 MG TABLET GT SCH ×2 (08:36→20:45)
[2019-11-02] MEDS: [UNRECOGNIZED DRUG - OTHER] GT SCH ×2 (08:36→20:50)
[2019-11-02] MEDS: HEPARIN SODIUM,PORCINE 5,000 UNITS/ML VIAL SQ SCH ×2 (08:36→20:51)
[2019-11-02] MEDS: VITAMINS A AND D OINT TP SCH (08:37)
[2019-11-02] MEDS: Z GUARD REMEDY PASTE 57 GM TUBE TOP SCH ×2 (08:37→20:50)
[2019-11-02] MEDS: COD LIVER OIL/ZINC OXIDE OINT 113 GM TUBE TP SCH ×2 (08:37→20:51)
[2019-11-02] MEDS: [UNRECOGNIZED DRUG - OTHER] XX SCH ×2 (08:37→20:51)
[2019-11-02] MEDS: HYDROGEN PEROXIDE 3% 118 ML BOTTLE TP SCH ×2 (09:20→21:30)
[2019-11-02 20:26] VITALS: BP 100/59
[2019-11-02] MEDS: OMEGA-3 FATTY ACIDS/FISH OIL CAPSULE GT SCH (20:45)
[2019-11-02] MEDS: BENZOYL PEROXIDE 10% GEL 60 GM TUBE TP SCH (20:51)
[2019-11-03] MEDS: JEVITY 1.2 1000 ML LIQUID GT PRN (01:28)
[2019-11-03] MEDS: LORATADINE 10 MG TABLET GT SCH (05:57)
[2019-11-03] MEDS: OMEPRAZOLE 20 MG CAPSULE.DR GT SCH (05:57)
[2019-11-03] MEDS: CHOLECALCIFEROL 1,000 UNIT TABLET GT SCH (05:57)
[2019-11-03 08:00] VITALS: BP 105/54
[2019-11-03] MEDS: HYDROGEN PEROXIDE 3% 118 ML BOTTLE TP SCH ×2 (09:00→21:23)
[2019-11-03] MEDS: HEPARIN SODIUM,PORCINE 5,000 UNITS/ML VIAL SQ SCH ×2 (09:10→21:32)
[2019-11-03] MEDS: [UNRECOGNIZED DRUG - OTHER] GT SCH ×2 (09:10→21:23)
[2019-11-03] MEDS: BACLOFEN 10 MG TABLET GT SCH ×2 (09:10→21:23)
[2019-11-03] MEDS: [UNRECOGNIZED DRUG - OTHER] XX SCH ×2 (09:11→21:23)
[2019-11-03] MEDS: Z GUARD REMEDY PASTE 57 GM TUBE TOP SCH ×2 (09:11→21:23)
[2019-11-03] MEDS: COD LIVER OIL/ZINC OXIDE OINT 113 GM TUBE TP SCH ×2 (09:11→21:23)
[2019-11-03] MEDS: VITAMINS A AND D OINT TP SCH (09:11)
[2019-11-03 20:15] VITALS: BP 113/69
[2019-11-03] MEDS: BENZOYL PEROXIDE 10% GEL 60 GM TUBE TP SCH (21:23)
[2019-11-03] MEDS: OMEGA-3 FATTY ACIDS/FISH OIL CAPSULE GT SCH (21:23)
[2019-11-04] MEDS: JEVITY 1.2 1000 ML LIQUID GT PRN (00:48)
[2019-11-04] MEDS: CHOLECALCIFEROL 1,000 UNIT TABLET GT SCH (05:01)
[2019-11-04] MEDS: LORATADINE 10 MG TABLET GT SCH (05:01)
[2019-11-04] MEDS: OMEPRAZOLE 20 MG CAPSULE.DR GT SCH (05:01)
[2019-11-04 08:05] VITALS: BP 108/66
[2019-11-04] MEDS: HYDROGEN PEROXIDE 3% 118 ML BOTTLE TP SCH ×2 (08:05→20:41)
[2019-11-04] MEDS: BACLOFEN 10 MG TABLET GT SCH ×2 (08:30→20:40)
[2019-11-04] MEDS: [UNRECOGNIZED DRUG - OTHER] GT SCH ×2 (08:30→20:40)
[2019-11-04] MEDS: HEPARIN SODIUM,PORCINE 5,000 UNITS/ML VIAL SQ SCH ×2 (08:34→20:43)
[2019-11-04] MEDS: Z GUARD REMEDY PASTE 57 GM TUBE TOP SCH ×2 (08:34→20:40)
[2019-11-04] MEDS: COD LIVER OIL/ZINC OXIDE OINT 113 GM TUBE TP SCH ×2 (08:34→20:41)
[2019-11-04] MEDS: [UNRECOGNIZED DRUG - OTHER] XX SCH ×2 (08:35→20:41)
[2019-11-04] MEDS: VITAMINS A AND D OINT TP SCH (08:35)
[2019-11-04] MEDS: ACETAMINOPHEN 650 MG/20 ML UDC- SA PATIENTS-FEVER ONLY GT PRN (17:30)
--- NOTE | 2019-11-04 18:20 | NUR ---
Noticed pt is breathing faster ,with moderate amount of thick yellowish secretions noted.temp 103 axillary p 115,f102 28 % with a o2 sat of 96%,b/p 109/65,checked for impaction,with moderated amount of soft Bm,Left message to Dr Diaz ,waiting for him to call back ,spoke to Hamzah,pt's mother and father aware.
--- NOTE | 2019-11-04 19:08 | NUR ---
DR Diaz call back with new orders noted.
--- NOTE | 2019-11-04 19:30 | NUR ---
Lizzette pt's mother aware of new orders .
[2019-11-04 19:37] LABS: BASOPHILS % (AUTO) 0.1 % (0.0-2.0); EOSINOPHILS % (AUTO) 0.3 % (0.0-7.0); HEMATOCRIT 44.8 % (36.7-47.1); HEMOGLOBIN 15.2 g/dL (12.5-16.3); LYMPHOCYTES # (AUTO) 0.8 K/uL (20.0-40.0); MEAN CORPUSCULAR HEMOGLOBIN 31.9 uug (23.8-33.4); MEAN CORPUSCULAR HGB CONC 34 g/dL (32.5-36.3); MEAN CORPUSCULAR VOLUME 94.3 fL (73.0-96.2); MONOCYTES # (AUTO) 1.2 K/uL (2.0-10.0); MONOCYTES % (AUTO) 14.9 % (0.0-11.0); NEUTROPHILS # (AUTO) 6.3 K/uL (1.8-8.9); NEUTROPHILS % (AUTO) 75.7 % (38.5-71.5); PLATELET COUNT (AUTO) 188 K/uL (152-348); RED BLOOD CELL COUNT(AUTO) 4.76 MIL/uL (4.06-5.63); WHITE BLOOD COUNT (AUTO) 8.3 K/uL (3.6-10.2)
[2019-11-04 19:59] LABS: CREATININE 0.9 mg/dL (0.6-1.3); POTASSIUM 3.7 mmol/L (3.5-5.1)
[2019-11-04 20:08] VITALS: BP 103/67
[2019-11-04] MEDS: OMEGA-3 FATTY ACIDS/FISH OIL CAPSULE GT SCH (20:40)
[2019-11-04] MEDS: BENZOYL PEROXIDE 10% GEL 60 GM TUBE TP SCH (20:41)
[2019-11-04] MEDS: ALBUTEROL SULFATE 2.5 MG/3 ML NEBU NEB PRN (20:51)
[2019-11-04 23:19] LABS: *BILIRUBIN,URIN NEGATIVE (NEGATIVE); *BLOOD, URINE NEGATIVE (NEGATIVE); *CLARITY,URINE CLOUDY (CLEAR); *COLOR,URINE YELLOW (YELLOW); *KETONES,URINE NEGATIVE (NEGATIVE); *UROBILINOGEN,URINE 0.2 E.U./dl (NORMAL); LEUKOCYTE ESTERASE ,URINE NEGATIVE (NEGATIVE); NITRITE, URINE NEGATIVE (NEGATIVE); PH,URINE 7.5 (5.0-8.0); UGLUCOSE NEGATIVE (NEGATIVE)
[2019-11-05 00:01] LABS: BACTERIA,URINE NONE SEEN /HPF (NONE SEEN); RBC,URINE NONE SEEN /HPF (0-3); SQUAMOUS EPITHELIAL CELL,UR NONE SEEN /HPF (NONE SEEN); WBC,URINE 0-3 /HPF (0-3)
[2019-11-05] MEDS: MEROPENEM 1 G in IV NORMAL SALINE 100 ML IV SCH ×4 (00:38→22:59)
[2019-11-05] MEDS: JEVITY 1.2 1000 ML LIQUID GT PRN ×2 (00:40→17:55)
--- NOTE | 2019-11-05 03:53 | NUR ---
STARTED ON IV N.S. @75ML/HR AND MERREM 1GM IVPB Q 8 HRS X 7 DAYS FOR FEVER, NO ADVERSE REACTION NOTED, T-98.9. NO RESPIRATORY DISTRESS NOTED. INFLUENZA ANTIGEN A+B: NOT DETECTED,NEGATIVE, LACTIC ACID-1.6, SLEPT ON AND OFF, BREATHING TX GIVEN, TOLERATED WELL.
[2019-11-05] MEDS: ACETAMINOPHEN 650 MG/20 ML UDC- SA PATIENTS-FEVER ONLY GT PRN (04:17)
[2019-11-05] MEDS: CHOLECALCIFEROL 1,000 UNIT TABLET GT SCH (05:06)
[2019-11-05] MEDS: LORATADINE 10 MG TABLET GT SCH (05:06)
[2019-11-05] MEDS: OMEPRAZOLE 20 MG CAPSULE.DR GT SCH (05:06)
[2019-11-05] MEDS: ALBUTEROL SULFATE 2.5 MG/3 ML NEBU NEB PRN (07:43)
[2019-11-05 08:04] VITALS: BP 101/70
[2019-11-05] MEDS: BACLOFEN 10 MG TABLET GT SCH ×2 (08:50→20:35)
[2019-11-05] MEDS: [UNRECOGNIZED DRUG - OTHER] GT SCH ×2 (08:50→20:35)
[2019-11-05] MEDS: HEPARIN SODIUM,PORCINE 5,000 UNITS/ML VIAL SQ SCH ×2 (08:53→20:38)
[2019-11-05] MEDS: [UNRECOGNIZED DRUG - OTHER] XX SCH ×2 (08:54→20:35)
[2019-11-05] MEDS: COD LIVER OIL/ZINC OXIDE OINT 113 GM TUBE TP SCH ×2 (08:54→20:35)
[2019-11-05] MEDS: VITAMINS A AND D OINT TP SCH (08:54)
[2019-11-05] MEDS: Z GUARD REMEDY PASTE 57 GM TUBE TOP SCH ×2 (08:54→20:35)
[2019-11-05] MEDS: HYDROGEN PEROXIDE 3% 118 ML BOTTLE TP SCH ×2 (09:00→21:06)
[2019-11-05] MEDS: IPRATROPIUM BROMIDE 0.5 MG/2.5 ML NEBU NEB SCH ×2 (13:21→19:21)
[2019-11-05] MEDS: ALBUTEROL SULFATE 2.5 MG/ 0.5 ML NEBU NEB SCH ×2 (13:21→19:21)
[2019-11-05 20:04] VITALS: BP 101/60
[2019-11-05] MEDS: OMEGA-3 FATTY ACIDS/FISH OIL CAPSULE GT SCH (20:35)
[2019-11-05] MEDS: BENZOYL PEROXIDE 10% GEL 60 GM TUBE TP SCH (20:35)
[2019-11-06] MEDS: ALBUTEROL SULFATE 2.5 MG/ 0.5 ML NEBU NEB SCH ×4 (00:40→19:12)
[2019-11-06] MEDS: IPRATROPIUM BROMIDE 0.5 MG/2.5 ML NEBU NEB SCH ×4 (00:40→19:12)
[2019-11-06] MEDS: CHOLECALCIFEROL 1,000 UNIT TABLET GT SCH (05:00)
[2019-11-06] MEDS: LORATADINE 10 MG TABLET GT SCH (05:00)
[2019-11-06] MEDS: OMEPRAZOLE 20 MG CAPSULE.DR GT SCH (05:00)
[2019-11-06] MEDS: MEROPENEM 1 G in IV NORMAL SALINE 100 ML IV SCH ×3 (05:12→22:24)
[2019-11-06] MEDS: ACETAMINOPHEN 650 MG/20 ML UDC- SA PATIENTS-FEVER ONLY GT PRN ×2 (07:05→16:03)
[2019-11-06 08:00] VITALS: BP 105/51
--- NOTE | 2019-11-06 08:00 | NUR ---
pt was seen by YARON GRESHAM aware of pt spiking temperature on Merrem 1 GM IV q 8hours. new ordered carried out for CBC and BMP. PRN tylenol 650 mg given for elevated temp. 10am faxed labs results to MD NO new orders at this time.
[2019-11-06] MEDS: BACLOFEN 10 MG TABLET GT SCH ×2 (08:28→21:01)
[2019-11-06] MEDS: [UNRECOGNIZED DRUG - OTHER] GT SCH ×2 (08:29→21:01)
[2019-11-06] MEDS: HEPARIN SODIUM,PORCINE 5,000 UNITS/ML VIAL SQ SCH ×2 (08:30→20:59)
[2019-11-06] MEDS: COD LIVER OIL/ZINC OXIDE OINT 113 GM TUBE TP SCH ×2 (08:30→21:01)
[2019-11-06] MEDS: Z GUARD REMEDY PASTE 57 GM TUBE TOP SCH ×2 (08:30→21:01)
[2019-11-06] MEDS: VITAMINS A AND D OINT TP SCH (09:00)
[2019-11-06] MEDS: [UNRECOGNIZED DRUG - OTHER] XX SCH ×2 (09:00→21:01)
[2019-11-06] MEDS: HYDROGEN PEROXIDE 3% 118 ML BOTTLE TP SCH ×2 (09:00→21:07)
[2019-11-06 09:20] LABS: CREATININE 0.8 mg/dL (0.6-1.3); POTASSIUM 3.7 mmol/L (3.5-5.1)
[2019-11-06 09:50] LABS: BASOPHILS % (AUTO) 0.2 % (0.0-2.0); EOSINOPHILS % (AUTO) 0.7 % (0.0-7.0); HEMATOCRIT 41.1 % (36.7-47.1); HEMOGLOBIN 13.9 g/dL (12.5-16.3); LYMPHOCYTES # (AUTO) 0.8 K/uL (20.0-40.0); LYMPHOCYTES % (AUTO) 12.7 % (20.5-51.5); MEAN CORPUSCULAR HEMOGLOBIN 31.9 uug (23.8-33.4); MEAN CORPUSCULAR HGB CONC 34 g/dL (32.5-36.3); MEAN CORPUSCULAR VOLUME 94.6 fL (73.0-96.2); MONOCYTES # (AUTO) 0.9 K/uL (2.0-10.0); MONOCYTES % (AUTO) 13.7 % (0.0-11.0); NEUTROPHILS # (AUTO) 4.5 K/uL (1.8-8.9); NEUTROPHILS % (AUTO) 72.7 % (38.5-71.5); PLATELET COUNT (AUTO) 144 K/uL (152-348); RED BLOOD CELL COUNT(AUTO) 4.34 MIL/uL (4.06-5.63)
[2019-11-06 09:57] LABS: WHITE BLOOD COUNT (AUTO) 6.2 K/uL (3.6-10.2)
[2019-11-06] MEDS: JEVITY 1.2 1000 ML LIQUID GT PRN ×2 (11:34→18:00)
--- NOTE | 2019-11-06 16:03 | NUR ---
Found pt with elevated temp of 101.2 axillary Tylenol 650mg/gt given PRN as ordered cooling measures initiated. Mother at bedside and aware. 1703 Rechecked temp 99.2 Axillary no pain/discomfort noted.
[2019-11-06 19:48] VITALS: BP 107/58
[2019-11-06] MEDS: OMEGA-3 FATTY ACIDS/FISH OIL CAPSULE GT SCH (21:00)
[2019-11-06] MEDS: BENZOYL PEROXIDE 10% GEL 60 GM TUBE TP SCH (21:01)
[2019-11-07] MEDS: ALBUTEROL SULFATE 2.5 MG/ 0.5 ML NEBU NEB SCH ×4 (00:54→19:23)
[2019-11-07] MEDS: IPRATROPIUM BROMIDE 0.5 MG/2.5 ML NEBU NEB SCH ×4 (00:54→19:23)
[2019-11-07] MEDS: LORATADINE 10 MG TABLET GT SCH (05:33)
[2019-11-07] MEDS: CHOLECALCIFEROL 1,000 UNIT TABLET GT SCH (05:33)
[2019-11-07] MEDS: OMEPRAZOLE 20 MG CAPSULE.DR GT SCH (05:33)
[2019-11-07] MEDS: MEROPENEM 1 G in IV NORMAL SALINE 100 ML IV SCH ×3 (05:44→21:43)
[2019-11-07 08:00] VITALS: BP 95/62
[2019-11-07] MEDS: HEPARIN SODIUM,PORCINE 5,000 UNITS/ML VIAL SQ SCH ×2 (08:05→20:19)
[2019-11-07] MEDS: Z GUARD REMEDY PASTE 57 GM TUBE TOP SCH ×2 (08:05→20:14)
[2019-11-07] MEDS: [UNRECOGNIZED DRUG - OTHER] GT SCH ×2 (08:05→20:14)
[2019-11-07] MEDS: [UNRECOGNIZED DRUG - OTHER] XX SCH ×2 (08:05→20:14)
[2019-11-07] MEDS: VITAMINS A AND D OINT TP SCH (08:05)
[2019-11-07] MEDS: BACLOFEN 10 MG TABLET GT SCH ×2 (08:05→20:14)
[2019-11-07] MEDS: COD LIVER OIL/ZINC OXIDE OINT 113 GM TUBE TP SCH ×2 (08:05→20:14)
[2019-11-07] MEDS: HYDROGEN PEROXIDE 3% 118 ML BOTTLE TP SCH ×2 (09:00→21:11)
--- NOTE | 2019-11-07 14:41 | NUR ---
INTERDISCIPLINARY PLAN OF CARE CONFERENCE was held today. Patient's parent were not able to attend the meeting. Dr. Castro and the Interdisciplinary Team reviewed the current plan of care in detail. RN reported on patient's current medical condition, findings of recent labs/tests, and subsequent treatment plan. See RN IDT conference notes. See also all other disciplines IDT notes and physician's progress notes for additional details.
--- NOTE | 2019-11-07 18:00 | NUR ---
Continue on Ivatb Merren 1 gm every 8 hours for 7 days,no adverse reaction noted,iv site changed to the R hand due to redness on the iv site.
[2019-11-07 19:35] VITALS: BP 122/81
[2019-11-07] MEDS: ACETAMINOPHEN 650 MG/20 ML UDC- SA PATIENTS-FEVER ONLY GT PRN (19:44)
[2019-11-07] MEDS: OMEGA-3 FATTY ACIDS/FISH OIL CAPSULE GT SCH (20:14)
[2019-11-07] MEDS: BENZOYL PEROXIDE 10% GEL 60 GM TUBE TP SCH (20:14)
[2019-11-07] MEDS: ALBUTEROL SULFATE 2.5 MG/3 ML NEBU NEB PRN (23:25)
[2019-11-08] MEDS: ALBUTEROL SULFATE 2.5 MG/ 0.5 ML NEBU NEB SCH ×2 (02:30→07:50)
[2019-11-08] MEDS: IPRATROPIUM BROMIDE 0.5 MG/2.5 ML NEBU NEB SCH ×2 (02:30→07:50)
[2019-11-08] MEDS: LORATADINE 10 MG TABLET GT SCH (05:19)
[2019-11-08] MEDS: CHOLECALCIFEROL 1,000 UNIT TABLET GT SCH (05:19)
[2019-11-08] MEDS: OMEPRAZOLE 20 MG CAPSULE.DR GT SCH (05:19)
[2019-11-08] MEDS: MEROPENEM 1 G in IV NORMAL SALINE 100 ML IV SCH ×3 (05:47→21:54)
[2019-11-08] MEDS: JEVITY 1.2 1000 ML LIQUID GT PRN (06:53)
--- NOTE | 2019-11-08 07:17 | NUR ---
Heplock on right hand pulled out, new IV heplock placed on Left hand g 20 with good blood return. Pt on Meropenem for fever and increased secretions and tachypnea, pt was noted with elevated temp of 100.2, provided with acetaminophen as and rechecked after 1 hr recorded 99.0. NO adverse reaction noted from IV ATB use. Continue to monitor.
[2019-11-08 08:00] VITALS: BP 104/52
[2019-11-08] MEDS: VITAMINS A AND D OINT TP SCH (09:10)
[2019-11-08] MEDS: Z GUARD REMEDY PASTE 57 GM TUBE TOP SCH ×2 (09:10→20:24)
[2019-11-08] MEDS: [UNRECOGNIZED DRUG - OTHER] GT SCH ×2 (09:10→20:24)
[2019-11-08] MEDS: BACLOFEN 10 MG TABLET GT SCH ×2 (09:10→20:24)
[2019-11-08] MEDS: [UNRECOGNIZED DRUG - OTHER] XX SCH ×2 (09:10→20:25)
[2019-11-08] MEDS: COD LIVER OIL/ZINC OXIDE OINT 113 GM TUBE TP SCH ×2 (09:10→20:25)
[2019-11-08] MEDS: HEPARIN SODIUM,PORCINE 5,000 UNITS/ML VIAL SQ SCH ×2 (09:12→21:00)
[2019-11-08] MEDS: HYDROGEN PEROXIDE 3% 118 ML BOTTLE TP SCH ×2 (09:14→20:57)
[2019-11-08] MEDS: ALBUTEROL SULFATE 2.5 MG/3 ML NEBU NEB PRN (19:38)
[2019-11-08 19:51] VITALS: BP 123/58
[2019-11-08] MEDS: OMEGA-3 FATTY ACIDS/FISH OIL CAPSULE GT SCH (20:24)
[2019-11-08] MEDS: BENZOYL PEROXIDE 10% GEL 60 GM TUBE TP SCH (20:25)
[2019-11-09] MEDS: JEVITY 1.2 1000 ML LIQUID GT PRN ×2 (03:00→20:04)
[2019-11-09] MEDS: CHOLECALCIFEROL 1,000 UNIT TABLET GT SCH (06:29)
[2019-11-09] MEDS: LORATADINE 10 MG TABLET GT SCH (06:29)
[2019-11-09] MEDS: OMEPRAZOLE 20 MG CAPSULE.DR GT SCH (06:29)
[2019-11-09] MEDS: MEROPENEM 1 G in IV NORMAL SALINE 100 ML IV SCH ×3 (06:56→21:58)
[2019-11-09 08:00] VITALS: BP 118/70
[2019-11-09] MEDS: [UNRECOGNIZED DRUG - OTHER] GT SCH ×2 (08:10→21:02)
[2019-11-09] MEDS: BACLOFEN 10 MG TABLET GT SCH ×2 (08:10→21:02)
[2019-11-09] MEDS: HEPARIN SODIUM,PORCINE 5,000 UNITS/ML VIAL SQ SCH ×2 (08:11→21:07)
[2019-11-09] MEDS: Z GUARD REMEDY PASTE 57 GM TUBE TOP SCH ×2 (08:18→21:02)
[2019-11-09] MEDS: [UNRECOGNIZED DRUG - OTHER] XX SCH ×2 (08:18→21:02)
[2019-11-09] MEDS: COD LIVER OIL/ZINC OXIDE OINT 113 GM TUBE TP SCH ×2 (08:18→21:02)
[2019-11-09] MEDS: VITAMINS A AND D OINT TP SCH (08:18)
[2019-11-09] MEDS: HYDROGEN PEROXIDE 3% 118 ML BOTTLE TP SCH ×2 (08:45→21:12)
[2019-11-09] MEDS: ALBUTEROL SULFATE 2.5 MG/3 ML NEBU NEB PRN (19:33)
[2019-11-09 20:38] VITALS: BP 112/70
[2019-11-09] MEDS: BENZOYL PEROXIDE 10% GEL 60 GM TUBE TP SCH (21:02)
[2019-11-09] MEDS: OMEGA-3 FATTY ACIDS/FISH OIL CAPSULE GT SCH (21:02)
--- NOTE | 2019-11-09 22:00 | NUR ---
Afebrile, trach intact and patent, on Merrem IV for fever, and increased secretions, IV site is intact and no signs of complications noted, no signs of any respiratory distress noted, suctioned with moderate pale yellow secretions, kept clean and comfortable.
[2019-11-10] MEDS: OMEPRAZOLE 20 MG CAPSULE.DR GT SCH (05:27)
[2019-11-10] MEDS: CHOLECALCIFEROL 1,000 UNIT TABLET GT SCH (05:27)
[2019-11-10] MEDS: LORATADINE 10 MG TABLET GT SCH (05:27)
[2019-11-10] MEDS: MEROPENEM 1 G in IV NORMAL SALINE 100 ML IV SCH ×3 (06:19→22:03)
[2019-11-10 08:00] VITALS: BP 107/59
[2019-11-10] MEDS: COD LIVER OIL/ZINC OXIDE OINT 113 GM TUBE TP SCH ×3 (08:02→21:08)
[2019-11-10] MEDS: [UNRECOGNIZED DRUG - OTHER] GT SCH ×3 (08:02→21:07)
[2019-11-10] MEDS: Z GUARD REMEDY PASTE 57 GM TUBE TOP SCH ×3 (08:02→21:08)
[2019-11-10] MEDS: VITAMINS A AND D OINT TP SCH (08:02)
[2019-11-10] MEDS: BACLOFEN 10 MG TABLET GT SCH ×3 (08:02→21:07)
[2019-11-10] MEDS: [UNRECOGNIZED DRUG - OTHER] XX SCH ×2 (08:03→21:08)
[2019-11-10] MEDS: HEPARIN SODIUM,PORCINE 5,000 UNITS/ML VIAL SQ SCH ×2 (08:24→21:08)
[2019-11-10] MEDS: HYDROGEN PEROXIDE 3% 118 ML BOTTLE TP SCH ×2 (09:00→21:08)
--- NOTE | 2019-11-10 09:27 | NUR ---
Received pt. in bed, non-communicative. Currently on IV Abx, noted with loose BM this AM. In no distress. All due medications administered as ordered. Kept pt. clean and dry. Turned and repositioned for comfort. Skin care rendered. Safety measures in place, all alarms working. Will continue to monitor accordingly.
[2019-11-10] MEDS: JEVITY 1.2 1000 ML LIQUID GT PRN (11:01)
[2019-11-10 20:45] VITALS: BP 122/68
[2019-11-10] MEDS: OMEGA-3 FATTY ACIDS/FISH OIL CAPSULE GT SCH (21:07)
[2019-11-10] MEDS: BENZOYL PEROXIDE 10% GEL 60 GM TUBE TP SCH (21:08)
--- NOTE | 2019-11-10 22:18 | NUR ---
On Merrem IV for fever, and increased secretions, no adverse reactions noted, IV site is intact and no signs of complications noted, no signs of any respiratory distress noted, suctioned with moderate pale yellow secretions, kept clean and comfortable.
[2019-11-11] MEDS: JEVITY 1.2 1000 ML LIQUID GT PRN (01:01)
[2019-11-11] MEDS: CHOLECALCIFEROL 1,000 UNIT TABLET GT SCH (05:47)
[2019-11-11] MEDS: LORATADINE 10 MG TABLET GT SCH (05:47)
[2019-11-11] MEDS: OMEPRAZOLE 20 MG CAPSULE.DR GT SCH (05:47)
[2019-11-11] MEDS: MEROPENEM 1 G in IV NORMAL SALINE 100 ML IV SCH ×2 (06:13→14:31)
[2019-11-11 08:00] VITALS: BP 114/60
[2019-11-11] MEDS: BACLOFEN 10 MG TABLET GT SCH ×2 (08:19→20:19)
[2019-11-11] MEDS: [UNRECOGNIZED DRUG - OTHER] GT SCH ×2 (08:19→20:19)
[2019-11-11] MEDS: VITAMINS A AND D OINT TP SCH (08:20)
[2019-11-11] MEDS: COD LIVER OIL/ZINC OXIDE OINT 113 GM TUBE TP SCH ×2 (08:20→20:19)
[2019-11-11] MEDS: HEPARIN SODIUM,PORCINE 5,000 UNITS/ML VIAL SQ SCH ×2 (08:20→20:19)
[2019-11-11] MEDS: [UNRECOGNIZED DRUG - OTHER] XX SCH ×2 (08:20→20:19)
[2019-11-11] MEDS: Z GUARD REMEDY PASTE 57 GM TUBE TOP SCH ×2 (08:20→20:19)
[2019-11-11] MEDS: HYDROGEN PEROXIDE 3% 118 ML BOTTLE TP SCH ×2 (09:00→21:09)
[2019-11-11] MEDS: OMEGA-3 FATTY ACIDS/FISH OIL CAPSULE GT SCH (20:19)
[2019-11-11] MEDS: BENZOYL PEROXIDE 10% GEL 60 GM TUBE TP SCH (20:19)
[2019-11-11 20:49] VITALS: BP 119/69
--- NOTE | 2019-11-11 21:47 | NUR ---
S/P antibiotic therapy for fever and increased secretions, trach is intact and patent, suctioned with moderate pale yellow secretions, no signs of respiratory distress noted, kept clean and comfortable.
[2019-11-12] MEDS: CHOLECALCIFEROL 1,000 UNIT TABLET GT SCH (05:34)
[2019-11-12] MEDS: OMEPRAZOLE 20 MG CAPSULE.DR GT SCH (05:34)
[2019-11-12] MEDS: LORATADINE 10 MG TABLET GT SCH (05:34)
--- NOTE | 2019-11-12 06:07 | NUR ---
Patient noted with left 2nd toe nail lifting, noted with dry blood on side of the nail, cleans e and initiated in- house treatment with triple antibiotic, no bleeding noted, handled affected nail gently, HR is 66, no signs of pain or discomfort noted, kept clean and comfortable.
[2019-11-12 08:00] VITALS: BP 125/77
[2019-11-12] MEDS: HYDROGEN PEROXIDE 3% 118 ML BOTTLE TP SCH ×2 (08:06→20:19)
[2019-11-12] MEDS: [UNRECOGNIZED DRUG - OTHER] GT SCH ×2 (08:15→20:19)
[2019-11-12] MEDS: BACLOFEN 10 MG TABLET GT SCH ×2 (08:15→20:18)
[2019-11-12] MEDS: Z GUARD REMEDY PASTE 57 GM TUBE TOP SCH ×2 (08:16→20:19)
[2019-11-12] MEDS: HEPARIN SODIUM,PORCINE 5,000 UNITS/ML VIAL SQ SCH ×2 (08:16→21:00)
[2019-11-12] MEDS: VITAMINS A AND D OINT TP SCH (08:17)
[2019-11-12] MEDS: COD LIVER OIL/ZINC OXIDE OINT 113 GM TUBE TP SCH ×2 (08:17→20:19)
[2019-11-12] MEDS: [UNRECOGNIZED DRUG - OTHER] XX SCH ×2 (08:18→20:19)
[2019-11-12] MEDS: NEOMY/BACITRA/POLYMYXIN B OINT UD PACKET TP SCH (09:00)
[2019-11-12] MEDS: JEVITY 1.2 1000 ML LIQUID GT PRN (12:43)
[2019-11-12 20:15] VITALS: BP 112/73
[2019-11-12] MEDS: BENZOYL PEROXIDE 10% GEL 60 GM TUBE TP SCH (20:19)
[2019-11-12] MEDS: OMEGA-3 FATTY ACIDS/FISH OIL CAPSULE GT SCH (20:20)
[2019-11-13] MEDS: CHOLECALCIFEROL 1,000 UNIT TABLET GT SCH (05:04)
[2019-11-13] MEDS: LORATADINE 10 MG TABLET GT SCH (05:04)
[2019-11-13] MEDS: OMEPRAZOLE 20 MG CAPSULE.DR GT SCH (05:04)
[2019-11-13 08:00] VITALS: BP 109/66
--- NOTE | 2019-11-13 08:37 | NUR ---
Pharmacy Update from 11/07/19 IDT meeting VS: Temp 98.9 BP 107/58 HR 85 LABS: (from 11/06/19) Wbc 6.2 H/H 13.9/41.1 Plt 144 Na 141 K 3.7 Cl 105 CO2 27 BUN/SCr 10/0.8 BS 168 Ca 8.7 MEDICATION USE REVIEWED: > Pt not on any anti-psych or anti-seizure medications > Pt on Heparin 5000 units q12hr; last plt 144. No signs of bleeding > Pt on Claritin 10mg daily :estimated CrCl is >120ml/min. Dose OK. > PRN MED USAGE: (Dec) Tylenol for pain used x 0 Tylenol for temp used x 0 Dulcolax used x 0 NEW ORDERS NOTED: > Albuterol 25mg q6hr ATC added 11/05-11/08 > Merrem 11/05-11/11 for possible pna - fevers, thick secretions Patient was reviewed and discussed in depth at IDT, with no medication issues or concerns noted per staff at this time. Remains stable, completing course of abx. No further recs per rx for now, will continue to monitor
[2019-11-13] MEDS: [UNRECOGNIZED DRUG - OTHER] GT SCH ×2 (08:39→21:27)
[2019-11-13] MEDS: BACLOFEN 10 MG TABLET GT SCH ×2 (08:39→21:27)
[2019-11-13] MEDS: Z GUARD REMEDY PASTE 57 GM TUBE TOP SCH ×2 (08:40→21:27)
[2019-11-13] MEDS: COD LIVER OIL/ZINC OXIDE OINT 113 GM TUBE TP SCH ×2 (08:40→21:27)
[2019-11-13] MEDS: HEPARIN SODIUM,PORCINE 5,000 UNITS/ML VIAL SQ SCH ×2 (08:40→21:00)
[2019-11-13] MEDS: HYDROGEN PEROXIDE 3% 118 ML BOTTLE TP SCH ×2 (09:00→21:51)
[2019-11-13] MEDS: VITAMINS A AND D OINT TP SCH (09:00)
[2019-11-13] MEDS: [UNRECOGNIZED DRUG - OTHER] XX SCH ×2 (09:00→21:28)
--- NOTE | 2019-11-13 09:06 | NUR ---
SEEN AND EXAMINED BY EFRAIN Vázquez AND WITH MYRAO.
[2019-11-13] MEDS: NEOMY/BACITRA/POLYMYXIN B OINT UD PACKET TP SCH (09:15)
[2019-11-13] MEDS: JEVITY 1.2 1000 ML LIQUID GT PRN (17:56)
[2019-11-13 20:09] VITALS: BP 118/74
[2019-11-13] MEDS: OMEGA-3 FATTY ACIDS/FISH OIL CAPSULE GT SCH (21:27)
[2019-11-13] MEDS: BENZOYL PEROXIDE 10% GEL 60 GM TUBE TP SCH (21:28)
[2019-11-14] MEDS: OMEPRAZOLE 20 MG CAPSULE.DR GT SCH (06:18)
[2019-11-14] MEDS: LORATADINE 10 MG TABLET GT SCH (06:18)
[2019-11-14] MEDS: CHOLECALCIFEROL 1,000 UNIT TABLET GT SCH (06:18)
[2019-11-14 08:03] VITALS: BP 112/65
[2019-11-14] MEDS: BACLOFEN 10 MG TABLET GT SCH ×2 (08:30→20:55)
[2019-11-14] MEDS: [UNRECOGNIZED DRUG - OTHER] GT SCH ×2 (08:32→20:55)
[2019-11-14] MEDS: HEPARIN SODIUM,PORCINE 5,000 UNITS/ML VIAL SQ SCH ×2 (08:36→20:58)
[2019-11-14] MEDS: Z GUARD REMEDY PASTE 57 GM TUBE TOP SCH ×2 (08:36→20:58)
[2019-11-14] MEDS: [UNRECOGNIZED DRUG - OTHER] XX SCH ×2 (08:37→20:58)
[2019-11-14] MEDS: NEOMY/BACITRA/POLYMYXIN B OINT UD PACKET TP SCH (08:37)
[2019-11-14] MEDS: VITAMINS A AND D OINT TP SCH (08:37)
[2019-11-14] MEDS: COD LIVER OIL/ZINC OXIDE OINT 113 GM TUBE TP SCH ×2 (08:37→20:58)
[2019-11-14] MEDS: HYDROGEN PEROXIDE 3% 118 ML BOTTLE TP SCH ×2 (09:00→21:05)
--- NOTE | 2019-11-14 11:00 | NUR ---
Seen and examined by Ame Cavanaugh,no new orders.
[2019-11-14] MEDS: JEVITY 1.2 1000 ML LIQUID GT PRN (12:04)
[2019-11-14 20:05] VITALS: BP 107/67
[2019-11-14] MEDS: OMEGA-3 FATTY ACIDS/FISH OIL CAPSULE GT SCH (20:54)
[2019-11-14] MEDS: BENZOYL PEROXIDE 10% GEL 60 GM TUBE TP SCH (20:58)
[2019-11-15] MEDS: JEVITY 1.2 1000 ML LIQUID GT PRN ×2 (05:00→21:32)
[2019-11-15] MEDS: OMEPRAZOLE 20 MG CAPSULE.DR GT SCH (06:15)
[2019-11-15] MEDS: CHOLECALCIFEROL 1,000 UNIT TABLET GT SCH (06:15)
[2019-11-15] MEDS: LORATADINE 10 MG TABLET GT SCH (06:15)
[2019-11-15 08:03] VITALS: BP 109/64
[2019-11-15] MEDS: BACLOFEN 10 MG TABLET GT SCH ×2 (08:12→21:14)
[2019-11-15] MEDS: [UNRECOGNIZED DRUG - OTHER] GT SCH ×2 (08:12→21:14)
[2019-11-15] MEDS: HYDROGEN PEROXIDE 3% 118 ML BOTTLE TP SCH ×2 (08:13→21:04)
[2019-11-15] MEDS: HEPARIN SODIUM,PORCINE 5,000 UNITS/ML VIAL SQ SCH ×2 (08:16→21:16)
[2019-11-15] MEDS: [UNRECOGNIZED DRUG - OTHER] XX SCH ×2 (08:19→21:19)
[2019-11-15] MEDS: VITAMINS A AND D OINT TP SCH (08:19)
[2019-11-15] MEDS: Z GUARD REMEDY PASTE 57 GM TUBE TOP SCH ×2 (08:19→21:18)
[2019-11-15] MEDS: NEOMY/BACITRA/POLYMYXIN B OINT UD PACKET TP SCH (08:19)
[2019-11-15] MEDS: COD LIVER OIL/ZINC OXIDE OINT 113 GM TUBE TP SCH ×2 (08:19→21:18)
[2019-11-15 19:49] VITALS: BP 121/73
[2019-11-15] MEDS: OMEGA-3 FATTY ACIDS/FISH OIL CAPSULE GT SCH (21:14)
[2019-11-15] MEDS: BENZOYL PEROXIDE 10% GEL 60 GM TUBE TP SCH (21:19)
[2019-11-16] MEDS: CHOLECALCIFEROL 1,000 UNIT TABLET GT SCH (06:14)
[2019-11-16] MEDS: LORATADINE 10 MG TABLET GT SCH (06:14)
[2019-11-16] MEDS: OMEPRAZOLE 20 MG CAPSULE.DR GT SCH (06:14)
[2019-11-16 08:02] VITALS: BP 137/79
[2019-11-16] MEDS: HYDROGEN PEROXIDE 3% 118 ML BOTTLE TP SCH ×2 (09:10→20:00)
[2019-11-16] MEDS: [UNRECOGNIZED DRUG - OTHER] GT SCH ×2 (09:26→20:00)
[2019-11-16] MEDS: BACLOFEN 10 MG TABLET GT SCH ×2 (09:26→20:00)
[2019-11-16] MEDS: Z GUARD REMEDY PASTE 57 GM TUBE TOP SCH ×2 (09:27→20:00)
[2019-11-16] MEDS: COD LIVER OIL/ZINC OXIDE OINT 113 GM TUBE TP SCH ×2 (09:27→20:00)
[2019-11-16] MEDS: [UNRECOGNIZED DRUG - OTHER] XX SCH ×2 (09:28→20:00)
[2019-11-16] MEDS: NEOMY/BACITRA/POLYMYXIN B OINT UD PACKET TP SCH (09:28)
[2019-11-16] MEDS: VITAMINS A AND D OINT TP SCH (09:28)
[2019-11-16] MEDS: HEPARIN SODIUM,PORCINE 5,000 UNITS/ML VIAL SQ SCH ×2 (09:32→21:00)
[2019-11-16] MEDS: JEVITY 1.2 1000 ML LIQUID GT PRN (17:18)
[2019-11-16 19:47] VITALS: BP 126/75
[2019-11-16] MEDS: OMEGA-3 FATTY ACIDS/FISH OIL CAPSULE GT SCH (20:00)
[2019-11-16] MEDS: BENZOYL PEROXIDE 10% GEL 60 GM TUBE TP SCH (20:00)
[2019-11-17] MEDS: OMEPRAZOLE 20 MG CAPSULE.DR GT SCH (05:06)
[2019-11-17] MEDS: LORATADINE 10 MG TABLET GT SCH (05:07)
[2019-11-17] MEDS: CHOLECALCIFEROL 1,000 UNIT TABLET GT SCH (05:07)
[2019-11-17 08:03] VITALS: BP 127/55
[2019-11-17] MEDS: BACLOFEN 10 MG TABLET GT SCH ×2 (08:14→21:41)
[2019-11-17] MEDS: Z GUARD REMEDY PASTE 57 GM TUBE TOP SCH ×2 (08:14→21:42)
[2019-11-17] MEDS: COD LIVER OIL/ZINC OXIDE OINT 113 GM TUBE TP SCH ×2 (08:14→21:42)
[2019-11-17] MEDS: NEOMY/BACITRA/POLYMYXIN B OINT UD PACKET TP SCH (08:14)
[2019-11-17] MEDS: [UNRECOGNIZED DRUG - OTHER] GT SCH ×2 (08:14→21:42)
[2019-11-17] MEDS: HEPARIN SODIUM,PORCINE 5,000 UNITS/ML VIAL SQ SCH ×2 (08:14→21:48)
[2019-11-17] MEDS: VITAMINS A AND D OINT TP SCH (08:14)
[2019-11-17] MEDS: [UNRECOGNIZED DRUG - OTHER] XX SCH ×2 (08:14→21:43)
[2019-11-17] MEDS: HYDROGEN PEROXIDE 3% 118 ML BOTTLE TP SCH ×2 (10:00→21:43)
[2019-11-17] MEDS: JEVITY 1.2 1000 ML LIQUID GT PRN (13:57)
[2019-11-17 20:00] VITALS: BP 128/59
[2019-11-17] MEDS: OMEGA-3 FATTY ACIDS/FISH OIL CAPSULE GT SCH (21:41)
[2019-11-17] MEDS: BENZOYL PEROXIDE 10% GEL 60 GM TUBE TP SCH (21:42)
[2019-11-18] MEDS: JEVITY 1.2 1000 ML LIQUID GT PRN ×2 (02:56→22:37)
[2019-11-18] MEDS: LORATADINE 10 MG TABLET GT SCH (05:17)
[2019-11-18] MEDS: CHOLECALCIFEROL 1,000 UNIT TABLET GT SCH (05:17)
[2019-11-18] MEDS: OMEPRAZOLE 20 MG CAPSULE.DR GT SCH (05:17)
[2019-11-18] MEDS: HYDROGEN PEROXIDE 3% 118 ML BOTTLE TP SCH ×2 (07:15→08:33)
[2019-11-18 08:05] VITALS: BP 108/64
[2019-11-18] MEDS: BACLOFEN 10 MG TABLET GT SCH ×2 (08:32→21:02)
[2019-11-18] MEDS: COD LIVER OIL/ZINC OXIDE OINT 113 GM TUBE TP SCH ×2 (08:33→21:02)
[2019-11-18] MEDS: [UNRECOGNIZED DRUG - OTHER] GT SCH ×2 (08:33→21:04)
[2019-11-18] MEDS: Z GUARD REMEDY PASTE 57 GM TUBE TOP SCH ×2 (08:33→21:02)
[2019-11-18] MEDS: NEOMY/BACITRA/POLYMYXIN B OINT UD PACKET TP SCH (08:34)
[2019-11-18] MEDS: [UNRECOGNIZED DRUG - OTHER] XX SCH ×2 (08:34→21:02)
[2019-11-18] MEDS: VITAMINS A AND D OINT TP SCH (08:34)
[2019-11-18] MEDS: HEPARIN SODIUM,PORCINE 5,000 UNITS/ML VIAL SQ SCH ×2 (08:38→21:07)
[2019-11-18 20:52] VITALS: BP 132/68
[2019-11-18] MEDS: BENZOYL PEROXIDE 10% GEL 60 GM TUBE TP SCH (21:02)
[2019-11-18] MEDS: OMEGA-3 FATTY ACIDS/FISH OIL CAPSULE GT SCH (21:02)
[2019-11-19] MEDS: OMEPRAZOLE 20 MG CAPSULE.DR GT SCH (06:11)
[2019-11-19] MEDS: LORATADINE 10 MG TABLET GT SCH (06:11)
[2019-11-19] MEDS: CHOLECALCIFEROL 1,000 UNIT TABLET GT SCH (06:11)
[2019-11-19 08:04] VITALS: BP 102/54
[2019-11-19] MEDS: [UNRECOGNIZED DRUG - OTHER] GT SCH ×2 (08:51→20:47)
[2019-11-19] MEDS: BACLOFEN 10 MG TABLET GT SCH ×2 (08:51→20:47)
[2019-11-19] MEDS: HEPARIN SODIUM,PORCINE 5,000 UNITS/ML VIAL SQ SCH ×2 (08:52→21:16)
[2019-11-19] MEDS: Z GUARD REMEDY PASTE 57 GM TUBE TOP SCH ×2 (08:52→20:47)
[2019-11-19] MEDS: COD LIVER OIL/ZINC OXIDE OINT 113 GM TUBE TP SCH ×2 (08:52→20:47)
[2019-11-19] MEDS: VITAMINS A AND D OINT TP SCH (08:53)
[2019-11-19] MEDS: [UNRECOGNIZED DRUG - OTHER] XX SCH ×2 (08:53→20:48)
[2019-11-19] MEDS: NEOMY/BACITRA/POLYMYXIN B OINT UD PACKET TP SCH (08:53)
[2019-11-19] MEDS: HYDROGEN PEROXIDE 3% 118 ML BOTTLE TP SCH ×2 (09:00→20:28)
[2019-11-19] MEDS: JEVITY 1.2 1000 ML LIQUID GT PRN (15:20)
[2019-11-19 20:22] VITALS: BP 126/65
[2019-11-19] MEDS: OMEGA-3 FATTY ACIDS/FISH OIL CAPSULE GT SCH (20:47)
[2019-11-19] MEDS: BENZOYL PEROXIDE 10% GEL 60 GM TUBE TP SCH (20:48)
[2019-11-20] MEDS: LORATADINE 10 MG TABLET GT SCH (05:40)
[2019-11-20] MEDS: OMEPRAZOLE 20 MG CAPSULE.DR GT SCH (05:40)
[2019-11-20] MEDS: CHOLECALCIFEROL 1,000 UNIT TABLET GT SCH (05:40)
[2019-11-20 08:03] VITALS: BP 101/68
[2019-11-20] MEDS: [UNRECOGNIZED DRUG - OTHER] GT SCH ×2 (08:40→20:33)
[2019-11-20] MEDS: BACLOFEN 10 MG TABLET GT SCH ×2 (08:40→20:33)
[2019-11-20] MEDS: Z GUARD REMEDY PASTE 57 GM TUBE TOP SCH ×2 (08:41→20:33)
[2019-11-20] MEDS: [UNRECOGNIZED DRUG - OTHER] XX SCH ×2 (08:41→20:33)
[2019-11-20] MEDS: VITAMINS A AND D OINT TP SCH (08:41)
[2019-11-20] MEDS: COD LIVER OIL/ZINC OXIDE OINT 113 GM TUBE TP SCH ×2 (08:41→20:33)
[2019-11-20] MEDS: NEOMY/BACITRA/POLYMYXIN B OINT UD PACKET TP SCH (08:41)
[2019-11-20] MEDS: HEPARIN SODIUM,PORCINE 5,000 UNITS/ML VIAL SQ SCH ×2 (08:41→20:33)
[2019-11-20] MEDS: HYDROGEN PEROXIDE 3% 118 ML BOTTLE TP SCH ×2 (09:58→21:06)
[2019-11-20 20:19] VITALS: BP 128/64
[2019-11-20] MEDS: OMEGA-3 FATTY ACIDS/FISH OIL CAPSULE GT SCH (20:32)
[2019-11-20] MEDS: BENZOYL PEROXIDE 10% GEL 60 GM TUBE TP SCH (20:33)
[2019-11-21] MEDS: LORATADINE 10 MG TABLET GT SCH (06:16)
[2019-11-21] MEDS: OMEPRAZOLE 20 MG CAPSULE.DR GT SCH (06:16)
[2019-11-21] MEDS: CHOLECALCIFEROL 1,000 UNIT TABLET GT SCH (06:16)
[2019-11-21] MEDS: JEVITY 1.2 1000 ML LIQUID GT PRN ×2 (06:17→21:58)
[2019-11-21 08:03] VITALS: BP 113/60
[2019-11-21] MEDS: BACLOFEN 10 MG TABLET GT SCH ×2 (08:43→21:58)
[2019-11-21] MEDS: [UNRECOGNIZED DRUG - OTHER] GT SCH ×2 (08:43→21:57)
[2019-11-21] MEDS: Z GUARD REMEDY PASTE 57 GM TUBE TOP SCH ×2 (08:43→21:58)
[2019-11-21] MEDS: HEPARIN SODIUM,PORCINE 5,000 UNITS/ML VIAL SQ SCH ×2 (08:43→22:00)
[2019-11-21] MEDS: COD LIVER OIL/ZINC OXIDE OINT 113 GM TUBE TP SCH ×2 (08:43→21:58)
[2019-11-21] MEDS: NEOMY/BACITRA/POLYMYXIN B OINT UD PACKET TP SCH (08:44)
[2019-11-21] MEDS: VITAMINS A AND D OINT TP SCH (08:44)
[2019-11-21] MEDS: [UNRECOGNIZED DRUG - OTHER] XX SCH ×2 (08:44→21:58)
[2019-11-21] MEDS: HYDROGEN PEROXIDE 3% 118 ML BOTTLE TP SCH ×2 (09:00→20:53)
[2019-11-21 20:24] VITALS: BP 129/69
[2019-11-21] MEDS: OMEGA-3 FATTY ACIDS/FISH OIL CAPSULE GT SCH (21:57)
[2019-11-21] MEDS: BENZOYL PEROXIDE 10% GEL 60 GM TUBE TP SCH (21:58)
[2019-11-22] MEDS: LORATADINE 10 MG TABLET GT SCH (05:07)
[2019-11-22] MEDS: CHOLECALCIFEROL 1,000 UNIT TABLET GT SCH (05:07)
[2019-11-22] MEDS: OMEPRAZOLE 20 MG CAPSULE.DR GT SCH (05:07)
[2019-11-22] MEDS: HYDROGEN PEROXIDE 3% 118 ML BOTTLE TP SCH ×2 (08:12→20:52)
[2019-11-22] MEDS: HEPARIN SODIUM,PORCINE 5,000 UNITS/ML VIAL SQ SCH ×2 (08:26→21:03)
[2019-11-22] MEDS: [UNRECOGNIZED DRUG - OTHER] GT SCH ×2 (08:26→21:17)
[2019-11-22] MEDS: VITAMINS A AND D OINT TP SCH (08:26)
[2019-11-22] MEDS: Z GUARD REMEDY PASTE 57 GM TUBE TOP SCH ×2 (08:26→21:17)
[2019-11-22] MEDS: BACLOFEN 10 MG TABLET GT SCH ×2 (08:26→21:17)
[2019-11-22] MEDS: COD LIVER OIL/ZINC OXIDE OINT 113 GM TUBE TP SCH (08:26)
[2019-11-22] MEDS: [UNRECOGNIZED DRUG - OTHER] XX SCH ×2 (08:26→21:17)
[2019-11-22 11:47] VITALS: BP 121/74
[2019-11-22 20:12] VITALS: BP 104/65
[2019-11-22] MEDS: BENZOYL PEROXIDE 10% GEL 60 GM TUBE TP SCH (21:17)
[2019-11-22] MEDS: OMEGA-3 FATTY ACIDS/FISH OIL CAPSULE GT SCH (21:17)
[2019-11-23] MEDS: CHOLECALCIFEROL 1,000 UNIT TABLET GT SCH (05:04)
[2019-11-23] MEDS: LORATADINE 10 MG TABLET GT SCH (05:04)
[2019-11-23] MEDS: OMEPRAZOLE 20 MG CAPSULE.DR GT SCH (05:04)
[2019-11-23] MEDS: VITAMINS A AND D OINT TP SCH (08:10)
[2019-11-23] MEDS: HEPARIN SODIUM,PORCINE 5,000 UNITS/ML VIAL SQ SCH ×2 (08:10→21:00)
[2019-11-23] MEDS: Z GUARD REMEDY PASTE 57 GM TUBE TOP SCH ×2 (08:10→21:00)
[2019-11-23] MEDS: [UNRECOGNIZED DRUG - OTHER] GT SCH ×2 (08:10→21:00)
[2019-11-23] MEDS: BACLOFEN 10 MG TABLET GT SCH ×2 (08:10→21:00)
[2019-11-23] MEDS: [UNRECOGNIZED DRUG - OTHER] XX SCH ×2 (08:11→21:00)
[2019-11-23 08:30] VITALS: BP 99/61
[2019-11-23] MEDS: HYDROGEN PEROXIDE 3% 118 ML BOTTLE TP SCH ×2 (09:59→21:23)
[2019-11-23 20:15] VITALS: BP 120/74
[2019-11-23] MEDS: BENZOYL PEROXIDE 10% GEL 60 GM TUBE TP SCH (21:00)
[2019-11-23] MEDS: OMEGA-3 FATTY ACIDS/FISH OIL CAPSULE GT SCH (21:00)
[2019-11-24] MEDS: JEVITY 1.2 1000 ML LIQUID GT PRN ×2 (01:00→17:45)
[2019-11-24] MEDS: CHOLECALCIFEROL 1,000 UNIT TABLET GT SCH (05:58)
[2019-11-24] MEDS: LORATADINE 10 MG TABLET GT SCH (05:58)
[2019-11-24] MEDS: OMEPRAZOLE 20 MG CAPSULE.DR GT SCH (05:58)
[2019-11-24 08:02] VITALS: BP 105/73
[2019-11-24] MEDS: HYDROGEN PEROXIDE 3% 118 ML BOTTLE TP SCH ×2 (09:02→20:36)
[2019-11-24] MEDS: [UNRECOGNIZED DRUG - OTHER] GT SCH ×2 (09:10→20:39)
[2019-11-24] MEDS: BACLOFEN 10 MG TABLET GT SCH ×2 (09:10→20:39)
[2019-11-24] MEDS: [UNRECOGNIZED DRUG - OTHER] XX SCH ×2 (09:13→20:40)
[2019-11-24] MEDS: VITAMINS A AND D OINT TP SCH (09:13)
[2019-11-24] MEDS: HEPARIN SODIUM,PORCINE 5,000 UNITS/ML VIAL SQ SCH ×2 (09:13→20:47)
[2019-11-24] MEDS: Z GUARD REMEDY PASTE 57 GM TUBE TOP SCH ×2 (09:13→20:40)
[2019-11-24 20:09] VITALS: BP 119/69
[2019-11-24] MEDS: OMEGA-3 FATTY ACIDS/FISH OIL CAPSULE GT SCH (20:39)
[2019-11-24] MEDS: BENZOYL PEROXIDE 10% GEL 60 GM TUBE TP SCH (20:40)
[2019-11-25] MEDS: CHOLECALCIFEROL 1,000 UNIT TABLET GT SCH (05:59)
[2019-11-25] MEDS: OMEPRAZOLE 20 MG CAPSULE.DR GT SCH (05:59)
[2019-11-25] MEDS: LORATADINE 10 MG TABLET GT SCH (05:59)
[2019-11-25 08:03] VITALS: BP 137/88
[2019-11-25] MEDS: BACLOFEN 10 MG TABLET GT SCH ×2 (08:44→20:17)
[2019-11-25] MEDS: [UNRECOGNIZED DRUG - OTHER] GT SCH ×2 (08:44→20:17)
[2019-11-25] MEDS: HEPARIN SODIUM,PORCINE 5,000 UNITS/ML VIAL SQ SCH ×2 (08:46→20:11)
[2019-11-25] MEDS: Z GUARD REMEDY PASTE 57 GM TUBE TOP SCH ×2 (08:46→20:17)
[2019-11-25] MEDS: [UNRECOGNIZED DRUG - OTHER] XX SCH ×2 (08:47→20:17)
[2019-11-25] MEDS: VITAMINS A AND D OINT TP SCH (08:47)
[2019-11-25] MEDS: JEVITY 1.2 1000 ML LIQUID GT PRN ×2 (08:52→22:06)
[2019-11-25] MEDS: HYDROGEN PEROXIDE 3% 118 ML BOTTLE TP SCH ×2 (09:00→21:00)
[2019-11-25] MEDS: BENZOYL PEROXIDE 10% GEL 60 GM TUBE TP SCH (20:17)
[2019-11-25] MEDS: OMEGA-3 FATTY ACIDS/FISH OIL CAPSULE GT SCH (20:17)
[2019-11-25 20:27] VITALS: BP 120/75
[2019-11-26] MEDS: OMEPRAZOLE 20 MG CAPSULE.DR GT SCH (06:03)
[2019-11-26] MEDS: LORATADINE 10 MG TABLET GT SCH (06:03)
[2019-11-26] MEDS: CHOLECALCIFEROL 1,000 UNIT TABLET GT SCH (06:03)
[2019-11-26] MEDS: HYDROGEN PEROXIDE 3% 118 ML BOTTLE TP SCH ×2 (07:10→20:03)
[2019-11-26 08:02] VITALS: BP 121/70
[2019-11-26] MEDS: [UNRECOGNIZED DRUG - OTHER] GT SCH ×2 (08:05→20:02)
[2019-11-26] MEDS: BACLOFEN 10 MG TABLET GT SCH ×2 (08:05→20:02)
[2019-11-26] MEDS: [UNRECOGNIZED DRUG - OTHER] XX SCH ×2 (08:07→20:03)
[2019-11-26] MEDS: Z GUARD REMEDY PASTE 57 GM TUBE TOP SCH ×2 (08:07→20:02)
[2019-11-26] MEDS: HEPARIN SODIUM,PORCINE 5,000 UNITS/ML VIAL SQ SCH ×2 (08:07→21:57)
[2019-11-26] MEDS: VITAMINS A AND D OINT TP SCH (08:07)
[2019-11-26] MEDS: JEVITY 1.2 1000 ML LIQUID GT PRN (17:18)
[2019-11-26] MEDS: OMEGA-3 FATTY ACIDS/FISH OIL CAPSULE GT SCH (20:02)
[2019-11-26] MEDS: BENZOYL PEROXIDE 10% GEL 60 GM TUBE TP SCH (20:03)
[2019-11-26 20:58] VITALS: BP 121/71
[2019-11-27] MEDS: LORATADINE 10 MG TABLET GT SCH (06:07)
[2019-11-27] MEDS: OMEPRAZOLE 20 MG CAPSULE.DR GT SCH (06:07)
[2019-11-27] MEDS: CHOLECALCIFEROL 1,000 UNIT TABLET GT SCH (06:07)
[2019-11-27] MEDS: VITAMINS A AND D OINT TP SCH (08:01)
[2019-11-27] MEDS: HEPARIN SODIUM,PORCINE 5,000 UNITS/ML VIAL SQ SCH ×2 (08:01→21:38)
[2019-11-27] MEDS: Z GUARD REMEDY PASTE 57 GM TUBE TOP SCH ×2 (08:01→21:31)
[2019-11-27] MEDS: [UNRECOGNIZED DRUG - OTHER] GT SCH ×2 (08:01→21:30)
[2019-11-27] MEDS: BACLOFEN 10 MG TABLET GT SCH ×2 (08:01→21:30)
[2019-11-27] MEDS: [UNRECOGNIZED DRUG - OTHER] XX SCH ×2 (08:02→21:31)
[2019-11-27 08:03] VITALS: BP 137/86
[2019-11-27] MEDS: HYDROGEN PEROXIDE 3% 118 ML BOTTLE TP SCH ×2 (09:56→21:06)
[2019-11-27 20:11] VITALS: BP 112/62
[2019-11-27] MEDS: OMEGA-3 FATTY ACIDS/FISH OIL CAPSULE GT SCH (21:30)
[2019-11-27] MEDS: BENZOYL PEROXIDE 10% GEL 60 GM TUBE TP SCH (21:31)
[2019-11-28] MEDS: LORATADINE 10 MG TABLET GT SCH (05:42)
[2019-11-28] MEDS: OMEPRAZOLE 20 MG CAPSULE.DR GT SCH (05:42)
[2019-11-28] MEDS: CHOLECALCIFEROL 1,000 UNIT TABLET GT SCH (05:42)
[2019-11-28 08:03] VITALS: BP 118/69
[2019-11-28] MEDS: HYDROGEN PEROXIDE 3% 118 ML BOTTLE TP SCH ×2 (09:00→20:36)
[2019-11-28] MEDS: VITAMINS A AND D OINT TP SCH (09:46)
[2019-11-28] MEDS: BACLOFEN 10 MG TABLET GT SCH ×2 (09:46→21:26)
[2019-11-28] MEDS: [UNRECOGNIZED DRUG - OTHER] XX SCH ×2 (09:46→21:26)
[2019-11-28] MEDS: Z GUARD REMEDY PASTE 57 GM TUBE TOP SCH ×2 (09:46→21:26)
[2019-11-28] MEDS: [UNRECOGNIZED DRUG - OTHER] GT SCH ×2 (09:46→21:26)
[2019-11-28] MEDS: HEPARIN SODIUM,PORCINE 5,000 UNITS/ML VIAL SQ SCH ×2 (09:48→21:00)
[2019-11-28 20:00] VITALS: BP 111/71
[2019-11-28] MEDS: BENZOYL PEROXIDE 10% GEL 60 GM TUBE TP SCH (21:26)
[2019-11-28] MEDS: OMEGA-3 FATTY ACIDS/FISH OIL CAPSULE GT SCH (21:26)
[2019-11-28] MEDS: JEVITY 1.2 1000 ML LIQUID GT PRN (21:29)
[2019-11-29] MEDS: CHOLECALCIFEROL 1,000 UNIT TABLET GT SCH (06:44)
[2019-11-29] MEDS: OMEPRAZOLE 20 MG CAPSULE.DR GT SCH (06:44)
[2019-11-29] MEDS: LORATADINE 10 MG TABLET GT SCH (06:44)
[2019-11-29 08:03] VITALS: BP 130/61
[2019-11-29] MEDS: VITAMINS A AND D OINT TP SCH (08:17)
[2019-11-29] MEDS: [UNRECOGNIZED DRUG - OTHER] XX SCH ×2 (08:17→21:36)
[2019-11-29] MEDS: BACLOFEN 10 MG TABLET GT SCH ×2 (08:17→21:36)
[2019-11-29] MEDS: [UNRECOGNIZED DRUG - OTHER] GT SCH ×2 (08:17→21:36)
[2019-11-29] MEDS: HEPARIN SODIUM,PORCINE 5,000 UNITS/ML VIAL SQ SCH ×2 (08:17→21:37)
[2019-11-29] MEDS: HYDROGEN PEROXIDE 3% 118 ML BOTTLE TP SCH ×2 (09:00→21:31)
[2019-11-29] MEDS: Z GUARD REMEDY PASTE 57 GM TUBE TOP SCH ×2 (09:19→21:36)
[2019-11-29 20:00] VITALS: BP 103/77
[2019-11-29] MEDS: BENZOYL PEROXIDE 10% GEL 60 GM TUBE TP SCH (21:36)
[2019-11-29] MEDS: OMEGA-3 FATTY ACIDS/FISH OIL CAPSULE GT SCH (21:36)
[2019-11-30] MEDS: CHOLECALCIFEROL 1,000 UNIT TABLET GT SCH (05:45)
[2019-11-30] MEDS: LORATADINE 10 MG TABLET GT SCH (05:45)
[2019-11-30] MEDS: OMEPRAZOLE 20 MG CAPSULE.DR GT SCH (05:45)
[2019-11-30] MEDS: Z GUARD REMEDY PASTE 57 GM TUBE TOP SCH ×2 (08:29→20:56)
[2019-11-30] MEDS: BACLOFEN 10 MG TABLET GT SCH ×2 (08:29→20:55)
[2019-11-30] MEDS: [UNRECOGNIZED DRUG - OTHER] GT SCH ×2 (08:29→20:55)
[2019-11-30] MEDS: VITAMINS A AND D OINT TP SCH (08:29)
[2019-11-30] MEDS: [UNRECOGNIZED DRUG - OTHER] XX SCH ×2 (08:29→20:56)
[2019-11-30] MEDS: HEPARIN SODIUM,PORCINE 5,000 UNITS/ML VIAL SQ SCH ×2 (08:29→21:00)
[2019-11-30] MEDS: HYDROGEN PEROXIDE 3% 118 ML BOTTLE TP SCH ×2 (08:40→21:04)
[2019-11-30 20:00] VITALS: BP 95/61
[2019-11-30] MEDS: OMEGA-3 FATTY ACIDS/FISH OIL CAPSULE GT SCH (20:55)
[2019-11-30] MEDS: BENZOYL PEROXIDE 10% GEL 60 GM TUBE TP SCH (20:56)
[2019-12-01] MEDS: JEVITY 1.2 1000 ML LIQUID GT PRN (02:53)
[2019-12-01] MEDS: OMEPRAZOLE 20 MG CAPSULE.DR GT SCH (06:10)
[2019-12-01] MEDS: CHOLECALCIFEROL 1,000 UNIT TABLET GT SCH (06:10)
[2019-12-01] MEDS: LORATADINE 10 MG TABLET GT SCH (06:10)
[2019-12-01] MEDS: HYDROGEN PEROXIDE 3% 118 ML BOTTLE TP SCH ×2 (09:00→20:30)
[2019-12-01] MEDS: [UNRECOGNIZED DRUG - OTHER] GT SCH ×2 (09:17→20:38)
[2019-12-01] MEDS: BACLOFEN 10 MG TABLET GT SCH ×2 (09:17→20:38)
[2019-12-01] MEDS: [UNRECOGNIZED DRUG - OTHER] XX SCH ×2 (09:18→20:38)
[2019-12-01] MEDS: VITAMINS A AND D OINT TP SCH (09:18)
[2019-12-01] MEDS: Z GUARD REMEDY PASTE 57 GM TUBE TOP SCH ×2 (09:18→20:38)
[2019-12-01] MEDS: HEPARIN SODIUM,PORCINE 5,000 UNITS/ML VIAL SQ SCH ×2 (09:18→20:37)
[2019-12-01 20:20] VITALS: BP 96/64
[2019-12-01] MEDS: OMEGA-3 FATTY ACIDS/FISH OIL CAPSULE GT SCH (20:38)
[2019-12-01] MEDS: BENZOYL PEROXIDE 10% GEL 60 GM TUBE TP SCH (20:38)
[2019-12-02] MEDS: JEVITY 1.2 1000 ML LIQUID GT PRN (00:06)
[2019-12-02] MEDS: LORATADINE 10 MG TABLET GT SCH (05:14)
[2019-12-02] MEDS: OMEPRAZOLE 20 MG CAPSULE.DR GT SCH (05:14)
[2019-12-02] MEDS: CHOLECALCIFEROL 1,000 UNIT TABLET GT SCH (05:14)
[2019-12-02] MEDS: [UNRECOGNIZED DRUG - OTHER] GT SCH ×2 (08:44→20:21)
[2019-12-02] MEDS: BACLOFEN 10 MG TABLET GT SCH ×2 (08:44→20:21)
[2019-12-02] MEDS: VITAMINS A AND D OINT TP SCH (08:46)
[2019-12-02] MEDS: [UNRECOGNIZED DRUG - OTHER] XX SCH ×2 (08:46→20:21)
[2019-12-02] MEDS: HEPARIN SODIUM,PORCINE 5,000 UNITS/ML VIAL SQ SCH ×2 (08:46→20:21)
[2019-12-02] MEDS: Z GUARD REMEDY PASTE 57 GM TUBE TOP SCH ×2 (08:46→20:21)
[2019-12-02] MEDS: HYDROGEN PEROXIDE 3% 118 ML BOTTLE TP SCH ×2 (09:00→21:27)
[2019-12-02 11:28] VITALS: BP 116/77
[2019-12-02 20:21] VITALS: BP 109/71
[2019-12-02] MEDS: BENZOYL PEROXIDE 10% GEL 60 GM TUBE TP SCH (20:21)
[2019-12-02] MEDS: OMEGA-3 FATTY ACIDS/FISH OIL CAPSULE GT SCH (20:21)
[2019-12-03] MEDS: JEVITY 1.2 1000 ML LIQUID GT PRN (02:50)
[2019-12-03] MEDS: CHOLECALCIFEROL 1,000 UNIT TABLET GT SCH (05:44)
[2019-12-03] MEDS: OMEPRAZOLE 20 MG CAPSULE.DR GT SCH (05:44)
[2019-12-03] MEDS: LORATADINE 10 MG TABLET GT SCH (05:44)
[2019-12-03] MEDS: [UNRECOGNIZED DRUG - OTHER] GT SCH ×2 (08:34→21:00)
[2019-12-03] MEDS: BACLOFEN 10 MG TABLET GT SCH ×2 (08:34→21:00)
[2019-12-03] MEDS: HEPARIN SODIUM,PORCINE 5,000 UNITS/ML VIAL SQ SCH ×2 (08:35→21:00)
[2019-12-03] MEDS: Z GUARD REMEDY PASTE 57 GM TUBE TOP SCH ×2 (08:36→21:00)
[2019-12-03] MEDS: VITAMINS A AND D OINT TP SCH (08:37)
[2019-12-03] MEDS: [UNRECOGNIZED DRUG - OTHER] XX SCH ×2 (08:37→21:00)
[2019-12-03] MEDS: HYDROGEN PEROXIDE 3% 118 ML BOTTLE TP SCH ×2 (09:00→20:31)
[2019-12-03 20:23] VITALS: BP 102/73
[2019-12-03] MEDS: OMEGA-3 FATTY ACIDS/FISH OIL CAPSULE GT SCH (21:00)
[2019-12-03] MEDS: BENZOYL PEROXIDE 10% GEL 60 GM TUBE TP SCH (21:00)
[2019-12-04] MEDS: OMEPRAZOLE 20 MG CAPSULE.DR GT SCH (05:02)
[2019-12-04] MEDS: LORATADINE 10 MG TABLET GT SCH (05:02)
[2019-12-04] MEDS: CHOLECALCIFEROL 1,000 UNIT TABLET GT SCH (05:02)
[2019-12-04 08:00] VITALS: BP 107/62
[2019-12-04] MEDS: HYDROGEN PEROXIDE 3% 118 ML BOTTLE TP SCH ×2 (08:08→20:16)
[2019-12-04] MEDS: BACLOFEN 10 MG TABLET GT SCH ×2 (08:32→20:15)
[2019-12-04] MEDS: [UNRECOGNIZED DRUG - OTHER] GT SCH ×2 (08:32→20:16)
[2019-12-04] MEDS: VITAMINS A AND D OINT TP SCH (08:33)
[2019-12-04] MEDS: HEPARIN SODIUM,PORCINE 5,000 UNITS/ML VIAL SQ SCH ×2 (08:33→21:55)
[2019-12-04] MEDS: Z GUARD REMEDY PASTE 57 GM TUBE TOP SCH ×2 (08:33→20:16)
[2019-12-04] MEDS: [UNRECOGNIZED DRUG - OTHER] XX SCH ×2 (09:00→20:16)
[2019-12-04] MEDS: JEVITY 1.2 1000 ML LIQUID GT PRN (17:51)
[2019-12-04] MEDS: OMEGA-3 FATTY ACIDS/FISH OIL CAPSULE GT SCH (20:15)
[2019-12-04] MEDS: BENZOYL PEROXIDE 10% GEL 60 GM TUBE TP SCH (20:16)
[2019-12-04 20:52] VITALS: BP 133/70
[2019-12-05] MEDS: OMEPRAZOLE 20 MG CAPSULE.DR GT SCH (05:02)
[2019-12-05] MEDS: CHOLECALCIFEROL 1,000 UNIT TABLET GT SCH (05:02)
[2019-12-05] MEDS: LORATADINE 10 MG TABLET GT SCH (05:02)
[2019-12-05 08:00] VITALS: BP 115/64
[2019-12-05] MEDS: BACLOFEN 10 MG TABLET GT SCH ×2 (08:47→21:00)
[2019-12-05] MEDS: VITAMINS A AND D OINT TP SCH (08:47)
[2019-12-05] MEDS: [UNRECOGNIZED DRUG - OTHER] XX SCH ×2 (08:47→21:00)
[2019-12-05] MEDS: Z GUARD REMEDY PASTE 57 GM TUBE TOP SCH ×2 (08:47→21:00)
[2019-12-05] MEDS: [UNRECOGNIZED DRUG - OTHER] GT SCH ×2 (08:47→21:00)
[2019-12-05] MEDS: HEPARIN SODIUM,PORCINE 5,000 UNITS/ML VIAL SQ SCH ×2 (08:49→21:00)
[2019-12-05] MEDS: HYDROGEN PEROXIDE 3% 118 ML BOTTLE TP SCH ×2 (09:41→20:58)
--- NOTE | 2019-12-05 14:22 | NUR ---
Pharmacy Update from Today's 12/05/19 IDT meeting VS: Temp 97.8 BP 115/64 HR 76 LABS: (from 11/06/19, no new labs) Wbc 6.2 H/H 13.9/41.1 Plt 144 Na 141 K 3.7 Cl 105 CO2 27 BUN/SCr 10/0.8 BS 168 Ca 8.7 MEDICATION USE REVIEWED: > Pt not on any anti-psych or anti-seizure medications > Pt on Heparin 5000 units q12hr; last plt 144. No signs of bleeding > Pt on Claritin 10mg daily :estimated CrCl is >120ml/min. Dose OK. > PRN MED USAGE: (Oct) Tylenol for pain used x 0 Tylenol for temp used x 5 Dulcolax used x 0 NEW ORDERS NOTED: > NA Patient was reviewed and discussed in depth at [facility], with no medication issues or concerns noted per staff at this time. No further recommendations at this time, will continue to monitor
--- NOTE | 2019-12-05 14:45 | NUR ---
INTERDISCIPLINARY PLAN OF CARE CONFERENCE was held today. Patient's parents were unable to attend the meeting. Dr. Castro and the Interdisciplinary Team reviewed the current plan of care in detail. RN reported on patient's current medical condition. No major changes were reported in patient's condition. See RN IDT conference notes. See also all other disciplines IDT notes and physician's progress notes for additional details.
[2019-12-05 19:47] VITALS: BP 109/79
[2019-12-05] MEDS: BENZOYL PEROXIDE 10% GEL 60 GM TUBE TP SCH (21:00)
[2019-12-05] MEDS: OMEGA-3 FATTY ACIDS/FISH OIL CAPSULE GT SCH (21:00)
[2019-12-06] MEDS: OMEPRAZOLE 20 MG CAPSULE.DR GT SCH (06:00)
[2019-12-06] MEDS: LORATADINE 10 MG TABLET GT SCH (06:00)
[2019-12-06] MEDS: CHOLECALCIFEROL 1,000 UNIT TABLET GT SCH (06:00)
--- NOTE | 2019-12-06 06:55 | NUR ---
shaquille paz n.p. was in, no new orders.
[2019-12-06 08:00] VITALS: BP 110/64
[2019-12-06] MEDS: [UNRECOGNIZED DRUG - OTHER] XX SCH ×2 (08:26→21:56)
[2019-12-06] MEDS: VITAMINS A AND D OINT TP SCH (08:26)
[2019-12-06] MEDS: BACLOFEN 10 MG TABLET GT SCH ×2 (08:26→21:53)
[2019-12-06] MEDS: [UNRECOGNIZED DRUG - OTHER] GT SCH ×2 (08:26→21:53)
[2019-12-06] MEDS: Z GUARD REMEDY PASTE 57 GM TUBE TOP SCH ×2 (08:26→21:55)
[2019-12-06] MEDS: HYDROGEN PEROXIDE 3% 118 ML BOTTLE TP SCH ×2 (09:00→21:39)
[2019-12-06] MEDS: HEPARIN SODIUM,PORCINE 5,000 UNITS/ML VIAL SQ SCH ×2 (09:00→21:55)
[2019-12-06] MEDS: JEVITY 1.2 1000 ML LIQUID GT PRN (10:42)
[2019-12-06] MEDS: OMEGA-3 FATTY ACIDS/FISH OIL CAPSULE GT SCH (21:52)
[2019-12-06] MEDS: BENZOYL PEROXIDE 10% GEL 60 GM TUBE TP SCH (21:55)
[2019-12-06 22:40] VITALS: BP 117/76
[2019-12-07] MEDS: JEVITY 1.2 1000 ML LIQUID GT PRN ×2 (04:00→21:00)
[2019-12-07] MEDS: CHOLECALCIFEROL 1,000 UNIT TABLET GT SCH (06:14)
[2019-12-07] MEDS: LORATADINE 10 MG TABLET GT SCH (06:14)
[2019-12-07] MEDS: OMEPRAZOLE 20 MG CAPSULE.DR GT SCH (06:14)
[2019-12-07 08:00] VITALS: BP 124/60
[2019-12-07] MEDS: [UNRECOGNIZED DRUG - OTHER] GT SCH ×2 (08:10→21:02)
[2019-12-07] MEDS: Z GUARD REMEDY PASTE 57 GM TUBE TOP SCH ×2 (08:10→21:03)
[2019-12-07] MEDS: BACLOFEN 10 MG TABLET GT SCH ×2 (08:10→21:02)
[2019-12-07] MEDS: [UNRECOGNIZED DRUG - OTHER] XX SCH ×2 (08:10→21:03)
[2019-12-07] MEDS: HEPARIN SODIUM,PORCINE 5,000 UNITS/ML VIAL SQ SCH ×2 (08:10→21:00)
[2019-12-07] MEDS: VITAMINS A AND D OINT TP SCH (08:10)
[2019-12-07] MEDS: HYDROGEN PEROXIDE 3% 118 ML BOTTLE TP SCH ×2 (09:00→21:11)
[2019-12-07] MEDS: OMEGA-3 FATTY ACIDS/FISH OIL CAPSULE GT SCH (21:01)
[2019-12-07] MEDS: BENZOYL PEROXIDE 10% GEL 60 GM TUBE TP SCH (21:03)
[2019-12-07 22:57] VITALS: BP 125/81
[2019-12-08] MEDS: OMEPRAZOLE 20 MG CAPSULE.DR GT SCH (05:03)
[2019-12-08] MEDS: LORATADINE 10 MG TABLET GT SCH (05:03)
[2019-12-08] MEDS: CHOLECALCIFEROL 1,000 UNIT TABLET GT SCH (05:03)
[2019-12-08] MEDS: BACLOFEN 10 MG TABLET GT SCH ×2 (08:39→20:01)
[2019-12-08] MEDS: [UNRECOGNIZED DRUG - OTHER] GT SCH ×2 (08:39→20:01)
[2019-12-08] MEDS: [UNRECOGNIZED DRUG - OTHER] XX SCH ×2 (08:40→21:00)
[2019-12-08] MEDS: HEPARIN SODIUM,PORCINE 5,000 UNITS/ML VIAL SQ SCH ×2 (08:40→21:00)
[2019-12-08] MEDS: VITAMINS A AND D OINT TP SCH (08:40)
[2019-12-08] MEDS: Z GUARD REMEDY PASTE 57 GM TUBE TOP SCH ×2 (08:40→21:00)
[2019-12-08] MEDS: HYDROGEN PEROXIDE 3% 118 ML BOTTLE TP SCH ×2 (09:15→20:51)
[2019-12-08 09:20] VITALS: BP 110/64
[2019-12-08] MEDS: JEVITY 1.2 1000 ML LIQUID GT PRN (17:31)
[2019-12-08] MEDS: OMEGA-3 FATTY ACIDS/FISH OIL CAPSULE GT SCH (20:01)
[2019-12-08] MEDS: BENZOYL PEROXIDE 10% GEL 60 GM TUBE TP SCH (21:00)
[2019-12-08 22:06] VITALS: BP 119/76
[2019-12-09] MEDS: CHOLECALCIFEROL 1,000 UNIT TABLET GT SCH (05:21)
[2019-12-09] MEDS: LORATADINE 10 MG TABLET GT SCH (05:21)
[2019-12-09] MEDS: OMEPRAZOLE 20 MG CAPSULE.DR GT SCH (05:21)
[2019-12-09] MEDS: BACLOFEN 10 MG TABLET GT SCH ×2 (09:49→21:52)
[2019-12-09] MEDS: [UNRECOGNIZED DRUG - OTHER] GT SCH ×2 (09:50→21:52)
[2019-12-09] MEDS: Z GUARD REMEDY PASTE 57 GM TUBE TOP SCH ×2 (09:51→21:52)
[2019-12-09] MEDS: HEPARIN SODIUM,PORCINE 5,000 UNITS/ML VIAL SQ SCH ×2 (09:51→21:00)
[2019-12-09] MEDS: VITAMINS A AND D OINT TP SCH (09:52)
[2019-12-09] MEDS: [UNRECOGNIZED DRUG - OTHER] XX SCH ×2 (09:52→21:52)
[2019-12-09] MEDS: HYDROGEN PEROXIDE 3% 118 ML BOTTLE TP SCH ×2 (09:52→21:00)
[2019-12-09 11:34] VITALS: BP 125/72
[2019-12-09] MEDS: JEVITY 1.2 1000 ML LIQUID GT PRN (13:42)
[2019-12-09] MEDS: BENZOYL PEROXIDE 10% GEL 60 GM TUBE TP SCH (21:52)
[2019-12-09] MEDS: OMEGA-3 FATTY ACIDS/FISH OIL CAPSULE GT SCH (21:52)
[2019-12-09 23:00] VITALS: BP 102/64
[2019-12-10] MEDS: CHOLECALCIFEROL 1,000 UNIT TABLET GT SCH (05:16)
[2019-12-10] MEDS: OMEPRAZOLE 20 MG CAPSULE.DR GT SCH (05:16)
[2019-12-10] MEDS: LORATADINE 10 MG TABLET GT SCH (05:16)
[2019-12-10 07:55] VITALS: BP 101/49
[2019-12-10] MEDS: [UNRECOGNIZED DRUG - OTHER] GT SCH ×2 (09:05→20:42)
[2019-12-10] MEDS: BACLOFEN 10 MG TABLET GT SCH ×2 (09:05→20:42)
[2019-12-10] MEDS: HEPARIN SODIUM,PORCINE 5,000 UNITS/ML VIAL SQ SCH ×2 (09:06→20:47)
[2019-12-10] MEDS: [UNRECOGNIZED DRUG - OTHER] XX SCH ×2 (09:06→20:42)
[2019-12-10] MEDS: VITAMINS A AND D OINT TP SCH (09:06)
[2019-12-10] MEDS: Z GUARD REMEDY PASTE 57 GM TUBE TOP SCH ×2 (09:06→20:42)
[2019-12-10] MEDS: HYDROGEN PEROXIDE 3% 118 ML BOTTLE TP SCH ×2 (09:42→21:20)
--- NOTE | 2019-12-10 12:00 | NUR ---
SEEN BY ALEXANDR CABALLERO.
[2019-12-10] MEDS: OMEGA-3 FATTY ACIDS/FISH OIL CAPSULE GT SCH (20:42)
[2019-12-10] MEDS: BENZOYL PEROXIDE 10% GEL 60 GM TUBE TP SCH (20:42)
[2019-12-10 22:28] VITALS: BP 108/75
[2019-12-11] MEDS: CHOLECALCIFEROL 1,000 UNIT TABLET GT SCH (05:48)
[2019-12-11] MEDS: LORATADINE 10 MG TABLET GT SCH (05:48)
[2019-12-11] MEDS: OMEPRAZOLE 20 MG CAPSULE.DR GT SCH (05:48)
[2019-12-11 08:04] VITALS: BP 136/50
--- NOTE | 2019-12-11 08:31 | NUR ---
PT. WAS SEEN AND EXAMINED BY EFRAIN CABALLERO.
[2019-12-11] MEDS: [UNRECOGNIZED DRUG - OTHER] GT SCH ×2 (08:46→20:45)
[2019-12-11] MEDS: Z GUARD REMEDY PASTE 57 GM TUBE TOP SCH ×2 (08:46→20:45)
[2019-12-11] MEDS: BACLOFEN 10 MG TABLET GT SCH ×2 (08:46→20:45)
[2019-12-11] MEDS: [UNRECOGNIZED DRUG - OTHER] XX SCH ×2 (08:47→20:45)
[2019-12-11] MEDS: VITAMINS A AND D OINT TP SCH (08:47)
[2019-12-11] MEDS: HEPARIN SODIUM,PORCINE 5,000 UNITS/ML VIAL SQ SCH ×2 (08:47→20:41)
[2019-12-11] MEDS: HYDROGEN PEROXIDE 3% 118 ML BOTTLE TP SCH ×2 (09:00→21:16)
[2019-12-11] MEDS: JEVITY 1.2 1000 ML LIQUID GT PRN (17:50)
[2019-12-11] MEDS: OMEGA-3 FATTY ACIDS/FISH OIL CAPSULE GT SCH (20:45)
[2019-12-11] MEDS: BENZOYL PEROXIDE 10% GEL 60 GM TUBE TP SCH (20:45)
[2019-12-11 21:00] VITALS: BP 119/77
[2019-12-12] MEDS: OMEPRAZOLE 20 MG CAPSULE.DR GT SCH (05:31)
[2019-12-12] MEDS: CHOLECALCIFEROL 1,000 UNIT TABLET GT SCH (05:31)
[2019-12-12] MEDS: LORATADINE 10 MG TABLET GT SCH (05:31)
[2019-12-12 08:03] VITALS: BP 91/49
[2019-12-12] MEDS: HYDROGEN PEROXIDE 3% 118 ML BOTTLE TP SCH ×2 (09:00→21:03)
[2019-12-12] MEDS: Z GUARD REMEDY PASTE 57 GM TUBE TOP SCH ×2 (09:52→20:27)
[2019-12-12] MEDS: [UNRECOGNIZED DRUG - OTHER] GT SCH ×2 (09:52→20:24)
[2019-12-12] MEDS: BACLOFEN 10 MG TABLET GT SCH ×2 (09:52→20:24)
[2019-12-12] MEDS: VITAMINS A AND D OINT TP SCH (09:52)
[2019-12-12] MEDS: [UNRECOGNIZED DRUG - OTHER] XX SCH ×2 (09:52→20:27)
[2019-12-12] MEDS: HEPARIN SODIUM,PORCINE 5,000 UNITS/ML VIAL SQ SCH ×2 (09:53→20:26)
[2019-12-12] MEDS: JEVITY 1.2 1000 ML LIQUID GT PRN (18:50)
[2019-12-12 19:42] VITALS: BP 105/58
[2019-12-12] MEDS: OMEGA-3 FATTY ACIDS/FISH OIL CAPSULE GT SCH (20:24)
[2019-12-12] MEDS: BENZOYL PEROXIDE 10% GEL 60 GM TUBE TP SCH (20:27)
[2019-12-13] MEDS: CHOLECALCIFEROL 1,000 UNIT TABLET GT SCH (05:51)
[2019-12-13] MEDS: LORATADINE 10 MG TABLET GT SCH (05:51)
[2019-12-13] MEDS: OMEPRAZOLE 20 MG CAPSULE.DR GT SCH (05:51)
[2019-12-13 08:03] VITALS: BP 98/52
[2019-12-13] MEDS: [UNRECOGNIZED DRUG - OTHER] GT SCH ×2 (08:38→21:08)
[2019-12-13] MEDS: BACLOFEN 10 MG TABLET GT SCH ×2 (08:38→21:08)
[2019-12-13] MEDS: HEPARIN SODIUM,PORCINE 5,000 UNITS/ML VIAL SQ SCH ×2 (08:43→21:00)
[2019-12-13] MEDS: Z GUARD REMEDY PASTE 57 GM TUBE TOP SCH ×2 (08:46→21:08)
[2019-12-13] MEDS: VITAMINS A AND D OINT TP SCH (08:47)
[2019-12-13] MEDS: [UNRECOGNIZED DRUG - OTHER] XX SCH ×2 (08:47→21:08)
[2019-12-13] MEDS: HYDROGEN PEROXIDE 3% 118 ML BOTTLE TP SCH ×2 (09:49→20:48)
[2019-12-13] MEDS: JEVITY 1.2 1000 ML LIQUID GT PRN (13:46)
[2019-12-13 19:35] VITALS: BP 95/65
[2019-12-13] MEDS: BENZOYL PEROXIDE 10% GEL 60 GM TUBE TP SCH (21:08)
[2019-12-13] MEDS: OMEGA-3 FATTY ACIDS/FISH OIL CAPSULE GT SCH (21:08)
[2019-12-14] MEDS: CHOLECALCIFEROL 1,000 UNIT TABLET GT SCH (05:14)
[2019-12-14] MEDS: OMEPRAZOLE 20 MG CAPSULE.DR GT SCH (05:14)
[2019-12-14] MEDS: LORATADINE 10 MG TABLET GT SCH (05:14)
[2019-12-14] MEDS: JEVITY 1.2 1000 ML LIQUID GT PRN ×2 (05:15→17:42)
[2019-12-14 08:30] VITALS: BP 98/59
[2019-12-14] MEDS: BACLOFEN 10 MG TABLET GT SCH ×2 (08:40→21:00)
[2019-12-14] MEDS: [UNRECOGNIZED DRUG - OTHER] GT SCH ×2 (08:40→21:00)
[2019-12-14] MEDS: Z GUARD REMEDY PASTE 57 GM TUBE TOP SCH ×2 (08:43→21:00)
[2019-12-14] MEDS: HEPARIN SODIUM,PORCINE 5,000 UNITS/ML VIAL SQ SCH ×2 (08:43→21:00)
[2019-12-14] MEDS: VITAMINS A AND D OINT TP SCH (09:00)
[2019-12-14] MEDS: [UNRECOGNIZED DRUG - OTHER] XX SCH ×2 (09:00→21:00)
[2019-12-14] MEDS: HYDROGEN PEROXIDE 3% 118 ML BOTTLE TP SCH ×2 (09:05→21:34)
[2019-12-14 19:43] VITALS: BP 107/78
[2019-12-14] MEDS: OMEGA-3 FATTY ACIDS/FISH OIL CAPSULE GT SCH (21:00)
[2019-12-14] MEDS: BENZOYL PEROXIDE 10% GEL 60 GM TUBE TP SCH (21:00)
[2019-12-15] MEDS: LORATADINE 10 MG TABLET GT SCH (05:52)
[2019-12-15] MEDS: CHOLECALCIFEROL 1,000 UNIT TABLET GT SCH (05:53)
[2019-12-15] MEDS: OMEPRAZOLE 20 MG CAPSULE.DR GT SCH (05:53)
[2019-12-15] MEDS: BACLOFEN 10 MG TABLET GT SCH ×2 (08:20→20:37)
[2019-12-15] MEDS: [UNRECOGNIZED DRUG - OTHER] GT SCH ×2 (08:20→20:37)
[2019-12-15] MEDS: Z GUARD REMEDY PASTE 57 GM TUBE TOP SCH ×2 (08:21→20:37)
[2019-12-15] MEDS: HEPARIN SODIUM,PORCINE 5,000 UNITS/ML VIAL SQ SCH ×2 (08:22→21:46)
[2019-12-15 08:30] VITALS: BP 117/61
[2019-12-15] MEDS: HYDROGEN PEROXIDE 3% 118 ML BOTTLE TP SCH ×2 (09:00→21:20)
[2019-12-15] MEDS: VITAMINS A AND D OINT TP SCH (09:00)
[2019-12-15] MEDS: [UNRECOGNIZED DRUG - OTHER] XX SCH ×2 (09:00→20:40)
[2019-12-15] MEDS: JEVITY 1.2 1000 ML LIQUID GT PRN (11:55)
[2019-12-15] MEDS: OMEGA-3 FATTY ACIDS/FISH OIL CAPSULE GT SCH (20:37)
[2019-12-15] MEDS: BENZOYL PEROXIDE 10% GEL 60 GM TUBE TP SCH (20:40)
[2019-12-15 20:55] VITALS: BP 102/61
[2019-12-16] MEDS: JEVITY 1.2 1000 ML LIQUID GT PRN ×2 (03:57→23:49)
[2019-12-16] MEDS: LORATADINE 10 MG TABLET GT SCH (06:06)
[2019-12-16] MEDS: OMEPRAZOLE 20 MG CAPSULE.DR GT SCH (06:06)
[2019-12-16] MEDS: CHOLECALCIFEROL 1,000 UNIT TABLET GT SCH (06:06)
[2019-12-16 08:00] VITALS: BP 104/47
[2019-12-16] MEDS: HYDROGEN PEROXIDE 3% 118 ML BOTTLE TP SCH ×2 (08:16→21:00)
[2019-12-16] MEDS: Z GUARD REMEDY PASTE 57 GM TUBE TOP SCH ×2 (08:46→20:42)
[2019-12-16] MEDS: VITAMINS A AND D OINT TP SCH (08:46)
[2019-12-16] MEDS: [UNRECOGNIZED DRUG - OTHER] XX SCH ×2 (08:46→20:43)
[2019-12-16] MEDS: BACLOFEN 10 MG TABLET GT SCH ×2 (08:47→20:42)
[2019-12-16] MEDS: [UNRECOGNIZED DRUG - OTHER] GT SCH ×2 (08:48→20:42)
[2019-12-16] MEDS: HEPARIN SODIUM,PORCINE 5,000 UNITS/ML VIAL SQ SCH ×2 (08:49→20:50)
--- NOTE | 2019-12-16 12:31 | NUR ---
Seen by Dr. Diaz, with no new orders.
[2019-12-16] MEDS: BENZOYL PEROXIDE 10% GEL 60 GM TUBE TP SCH (20:42)
[2019-12-16] MEDS: OMEGA-3 FATTY ACIDS/FISH OIL CAPSULE GT SCH (20:42)
[2019-12-16 22:00] VITALS: BP 116/72
[2019-12-17] MEDS: CHOLECALCIFEROL 1,000 UNIT TABLET GT SCH (06:09)
[2019-12-17] MEDS: OMEPRAZOLE 20 MG CAPSULE.DR GT SCH (06:09)
[2019-12-17] MEDS: LORATADINE 10 MG TABLET GT SCH (06:09)
[2019-12-17] MEDS: BACLOFEN 10 MG TABLET GT SCH ×2 (08:57→20:37)
[2019-12-17] MEDS: [UNRECOGNIZED DRUG - OTHER] GT SCH ×2 (09:00→20:37)
[2019-12-17] MEDS: VITAMINS A AND D OINT TP SCH (09:02)
[2019-12-17] MEDS: [UNRECOGNIZED DRUG - OTHER] XX SCH ×2 (09:02→20:37)
[2019-12-17] MEDS: Z GUARD REMEDY PASTE 57 GM TUBE TOP SCH ×2 (09:02→20:37)
[2019-12-17] MEDS: HEPARIN SODIUM,PORCINE 5,000 UNITS/ML VIAL SQ SCH ×2 (09:02→21:31)
[2019-12-17] MEDS: HYDROGEN PEROXIDE 3% 118 ML BOTTLE TP SCH ×2 (09:34→20:36)
[2019-12-17 11:11] VITALS: BP 110/58
[2019-12-17] MEDS: JEVITY 1.2 1000 ML LIQUID GT PRN (19:51)
[2019-12-17 20:03] VITALS: BP 100/70
[2019-12-17] MEDS: OMEGA-3 FATTY ACIDS/FISH OIL CAPSULE GT SCH (20:37)
[2019-12-17] MEDS: BENZOYL PEROXIDE 10% GEL 60 GM TUBE TP SCH (20:37)
[2019-12-18] MEDS: OMEPRAZOLE 20 MG CAPSULE.DR GT SCH (05:17)
[2019-12-18] MEDS: LORATADINE 10 MG TABLET GT SCH (05:17)
[2019-12-18] MEDS: CHOLECALCIFEROL 1,000 UNIT TABLET GT SCH (05:17)
[2019-12-18 08:03] VITALS: BP 125/53
[2019-12-18] MEDS: [UNRECOGNIZED DRUG - OTHER] GT SCH ×2 (08:13→20:06)
[2019-12-18] MEDS: BACLOFEN 10 MG TABLET GT SCH ×2 (08:13→20:04)
[2019-12-18] MEDS: Z GUARD REMEDY PASTE 57 GM TUBE TOP SCH ×2 (08:14→20:04)
[2019-12-18] MEDS: VITAMINS A AND D OINT TP SCH (08:14)
[2019-12-18] MEDS: [UNRECOGNIZED DRUG - OTHER] XX SCH ×2 (08:14→20:05)
[2019-12-18] MEDS: HEPARIN SODIUM,PORCINE 5,000 UNITS/ML VIAL SQ SCH ×2 (08:14→20:06)
[2019-12-18] MEDS: HYDROGEN PEROXIDE 3% 118 ML BOTTLE TP SCH ×2 (09:00→20:05)
[2019-12-18] MEDS: OMEGA-3 FATTY ACIDS/FISH OIL CAPSULE GT SCH (20:04)
[2019-12-18] MEDS: BENZOYL PEROXIDE 10% GEL 60 GM TUBE TP SCH (20:05)
[2019-12-18 20:06] VITALS: BP 96/63
[2019-12-19] MEDS: CHOLECALCIFEROL 1,000 UNIT TABLET GT SCH (05:12)
[2019-12-19] MEDS: LORATADINE 10 MG TABLET GT SCH (05:12)
[2019-12-19] MEDS: OMEPRAZOLE 20 MG CAPSULE.DR GT SCH (05:12)
[2019-12-19] MEDS: HYDROGEN PEROXIDE 3% 118 ML BOTTLE TP SCH ×2 (08:04→21:55)
[2019-12-19] MEDS: VITAMINS A AND D OINT TP SCH (08:24)
[2019-12-19] MEDS: BACLOFEN 10 MG TABLET GT SCH ×2 (08:24→21:19)
[2019-12-19] MEDS: Z GUARD REMEDY PASTE 57 GM TUBE TOP SCH ×2 (08:24→21:22)
[2019-12-19] MEDS: [UNRECOGNIZED DRUG - OTHER] GT SCH ×2 (08:24→21:19)
[2019-12-19] MEDS: HEPARIN SODIUM,PORCINE 5,000 UNITS/ML VIAL SQ SCH ×2 (08:25→21:22)
[2019-12-19] MEDS: [UNRECOGNIZED DRUG - OTHER] XX SCH ×2 (08:25→21:22)
[2019-12-19 08:30] VITALS: BP 123/77
[2019-12-19 19:39] VITALS: BP 104/65
[2019-12-19] MEDS: OMEGA-3 FATTY ACIDS/FISH OIL CAPSULE GT SCH (21:19)
[2019-12-19] MEDS: BENZOYL PEROXIDE 10% GEL 60 GM TUBE TP SCH (21:22)
[2019-12-20] MEDS: JEVITY 1.2 1000 ML LIQUID GT PRN (00:10)
[2019-12-20] MEDS: OMEPRAZOLE 20 MG CAPSULE.DR GT SCH (05:55)
[2019-12-20] MEDS: CHOLECALCIFEROL 1,000 UNIT TABLET GT SCH (05:55)
[2019-12-20] MEDS: LORATADINE 10 MG TABLET GT SCH (05:55)
[2019-12-20] MEDS: HYDROGEN PEROXIDE 3% 118 ML BOTTLE TP SCH ×2 (07:21→21:17)
[2019-12-20] MEDS: HEPARIN SODIUM,PORCINE 5,000 UNITS/ML VIAL SQ SCH ×2 (08:29→21:12)
[2019-12-20] MEDS: [UNRECOGNIZED DRUG - OTHER] XX SCH ×2 (08:29→21:12)
[2019-12-20] MEDS: BACLOFEN 10 MG TABLET GT SCH ×2 (08:29→21:11)
[2019-12-20] MEDS: [UNRECOGNIZED DRUG - OTHER] GT SCH ×2 (08:29→21:11)
[2019-12-20] MEDS: VITAMINS A AND D OINT TP SCH (08:29)
[2019-12-20] MEDS: Z GUARD REMEDY PASTE 57 GM TUBE TOP SCH ×2 (08:29→21:12)
[2019-12-20 11:22] VITALS: BP 106/69
[2019-12-20 20:03] VITALS: BP 104/58
[2019-12-20] MEDS: OMEGA-3 FATTY ACIDS/FISH OIL CAPSULE GT SCH (21:11)
[2019-12-20] MEDS: BENZOYL PEROXIDE 10% GEL 60 GM TUBE TP SCH (21:12)
[2019-12-21] MEDS: JEVITY 1.2 1000 ML LIQUID GT PRN ×2 (00:18→21:16)
[2019-12-21] MEDS: CHOLECALCIFEROL 1,000 UNIT TABLET GT SCH (05:46)
[2019-12-21] MEDS: OMEPRAZOLE 20 MG CAPSULE.DR GT SCH (05:46)
[2019-12-21] MEDS: LORATADINE 10 MG TABLET GT SCH (05:46)
[2019-12-21] MEDS: BACLOFEN 10 MG TABLET GT SCH ×2 (08:10→21:01)
[2019-12-21] MEDS: [UNRECOGNIZED DRUG - OTHER] GT SCH ×2 (08:10→21:01)
[2019-12-21] MEDS: HEPARIN SODIUM,PORCINE 5,000 UNITS/ML VIAL SQ SCH ×2 (08:12→21:02)
[2019-12-21] MEDS: VITAMINS A AND D OINT TP SCH (08:12)
[2019-12-21] MEDS: [UNRECOGNIZED DRUG - OTHER] XX SCH ×2 (08:12→21:02)
[2019-12-21] MEDS: Z GUARD REMEDY PASTE 57 GM TUBE TOP SCH ×2 (08:12→21:02)
[2019-12-21] MEDS: HYDROGEN PEROXIDE 3% 118 ML BOTTLE TP SCH ×2 (08:46→20:37)
[2019-12-21 11:59] VITALS: BP 128/65
--- NOTE | 2019-12-21 19:04 | NUR ---
SEEN BY DR. NEEMA CABALLERO.
[2019-12-21 20:45] VITALS: BP 120/77
[2019-12-21] MEDS: OMEGA-3 FATTY ACIDS/FISH OIL CAPSULE GT SCH (21:01)
[2019-12-21] MEDS: BENZOYL PEROXIDE 10% GEL 60 GM TUBE TP SCH (21:02)
[2019-12-22] MEDS: OMEPRAZOLE 20 MG CAPSULE.DR GT SCH (06:11)
[2019-12-22] MEDS: LORATADINE 10 MG TABLET GT SCH (06:11)
[2019-12-22] MEDS: CHOLECALCIFEROL 1,000 UNIT TABLET GT SCH (06:11)
[2019-12-22 08:02] VITALS: BP 128/81
[2019-12-22] MEDS: BACLOFEN 10 MG TABLET GT SCH ×2 (08:17→20:31)
[2019-12-22] MEDS: [UNRECOGNIZED DRUG - OTHER] GT SCH ×2 (08:17→20:31)
[2019-12-22] MEDS: HEPARIN SODIUM,PORCINE 5,000 UNITS/ML VIAL SQ SCH ×2 (08:18→20:31)
[2019-12-22] MEDS: Z GUARD REMEDY PASTE 57 GM TUBE TOP SCH ×2 (08:20→20:32)
[2019-12-22] MEDS: [UNRECOGNIZED DRUG - OTHER] XX SCH ×2 (08:20→20:32)
[2019-12-22] MEDS: VITAMINS A AND D OINT TP SCH (08:20)
[2019-12-22] MEDS: HYDROGEN PEROXIDE 3% 118 ML BOTTLE TP SCH ×2 (09:00→21:21)
[2019-12-22] MEDS: OMEGA-3 FATTY ACIDS/FISH OIL CAPSULE GT SCH (20:31)
[2019-12-22] MEDS: BENZOYL PEROXIDE 10% GEL 60 GM TUBE TP SCH (20:32)
[2019-12-22 20:42] VITALS: BP 110/70
[2019-12-23] MEDS: JEVITY 1.2 1000 ML LIQUID GT PRN (03:35)
[2019-12-23] MEDS: CHOLECALCIFEROL 1,000 UNIT TABLET GT SCH (05:06)
[2019-12-23] MEDS: OMEPRAZOLE 20 MG CAPSULE.DR GT SCH (05:06)
[2019-12-23] MEDS: LORATADINE 10 MG TABLET GT SCH (05:06)
[2019-12-23] MEDS: HYDROGEN PEROXIDE 3% 118 ML BOTTLE TP SCH ×2 (07:23→21:15)
[2019-12-23 08:03] VITALS: BP 128/68
[2019-12-23] MEDS: Z GUARD REMEDY PASTE 57 GM TUBE TOP SCH ×2 (08:56→20:23)
[2019-12-23] MEDS: [UNRECOGNIZED DRUG - OTHER] GT SCH ×2 (08:56→20:23)
[2019-12-23] MEDS: VITAMINS A AND D OINT TP SCH (08:56)
[2019-12-23] MEDS: [UNRECOGNIZED DRUG - OTHER] XX SCH ×2 (08:56→20:23)
[2019-12-23] MEDS: BACLOFEN 10 MG TABLET GT SCH ×2 (08:56→20:23)
[2019-12-23] MEDS: HEPARIN SODIUM,PORCINE 5,000 UNITS/ML VIAL SQ SCH ×2 (08:56→20:23)
[2019-12-23] MEDS: BENZOYL PEROXIDE 10% GEL 60 GM TUBE TP SCH (20:23)
[2019-12-23] MEDS: OMEGA-3 FATTY ACIDS/FISH OIL CAPSULE GT SCH (20:23)
[2019-12-23 20:44] VITALS: BP 118/80
[2019-12-24] MEDS: JEVITY 1.2 1000 ML LIQUID GT PRN ×2 (00:39→23:15)
[2019-12-24] MEDS: CHOLECALCIFEROL 1,000 UNIT TABLET GT SCH (05:15)
[2019-12-24] MEDS: LORATADINE 10 MG TABLET GT SCH (05:15)
[2019-12-24] MEDS: OMEPRAZOLE 20 MG CAPSULE.DR GT SCH (05:15)
[2019-12-24 08:02] VITALS: BP 114/74
[2019-12-24] MEDS: HYDROGEN PEROXIDE 3% 118 ML BOTTLE TP SCH ×2 (08:43→20:54)
[2019-12-24] MEDS: [UNRECOGNIZED DRUG - OTHER] GT SCH ×2 (09:25→20:25)
[2019-12-24] MEDS: BACLOFEN 10 MG TABLET GT SCH ×2 (09:25→20:25)
[2019-12-24] MEDS: [UNRECOGNIZED DRUG - OTHER] XX SCH ×2 (09:26→20:26)
[2019-12-24] MEDS: VITAMINS A AND D OINT TP SCH (09:26)
[2019-12-24] MEDS: HEPARIN SODIUM,PORCINE 5,000 UNITS/ML VIAL SQ SCH ×2 (09:26→20:26)
[2019-12-24] MEDS: Z GUARD REMEDY PASTE 57 GM TUBE TOP SCH ×2 (09:26→20:26)
[2019-12-24 20:15] VITALS: BP 112/73
[2019-12-24] MEDS: OMEGA-3 FATTY ACIDS/FISH OIL CAPSULE GT SCH (20:25)
[2019-12-24] MEDS: BENZOYL PEROXIDE 10% GEL 60 GM TUBE TP SCH (20:26)
[2019-12-25] MEDS: LORATADINE 10 MG TABLET GT SCH (05:13)
[2019-12-25] MEDS: CHOLECALCIFEROL 1,000 UNIT TABLET GT SCH (05:13)
[2019-12-25] MEDS: OMEPRAZOLE 20 MG CAPSULE.DR GT SCH (05:13)
[2019-12-25 08:03] VITALS: BP 113/51
[2019-12-25] MEDS: [UNRECOGNIZED DRUG - OTHER] GT SCH ×2 (08:58→21:22)
[2019-12-25] MEDS: BACLOFEN 10 MG TABLET GT SCH ×2 (08:58→21:21)
[2019-12-25] MEDS: HEPARIN SODIUM,PORCINE 5,000 UNITS/ML VIAL SQ SCH ×2 (09:00→21:23)
[2019-12-25] MEDS: VITAMINS A AND D OINT TP SCH (09:00)
[2019-12-25] MEDS: [UNRECOGNIZED DRUG - OTHER] XX SCH ×2 (09:00→21:24)
[2019-12-25] MEDS: Z GUARD REMEDY PASTE 57 GM TUBE TOP SCH ×2 (09:01→21:23)
[2019-12-25] MEDS: HYDROGEN PEROXIDE 3% 118 ML BOTTLE TP SCH ×2 (09:41→21:06)
[2019-12-25] MEDS: JEVITY 1.2 1000 ML LIQUID GT PRN (17:47)
[2019-12-25 20:12] VITALS: BP 109/64
[2019-12-25] MEDS: OMEGA-3 FATTY ACIDS/FISH OIL CAPSULE GT SCH (21:21)
[2019-12-25] MEDS: BENZOYL PEROXIDE 10% GEL 60 GM TUBE TP SCH (21:24)
[2019-12-26] MEDS: OMEPRAZOLE 20 MG CAPSULE.DR GT SCH (05:53)
[2019-12-26] MEDS: CHOLECALCIFEROL 1,000 UNIT TABLET GT SCH (05:53)
[2019-12-26] MEDS: LORATADINE 10 MG TABLET GT SCH (05:53)
[2019-12-26 08:03] VITALS: BP 105/57
[2019-12-26] MEDS: [UNRECOGNIZED DRUG - OTHER] GT SCH ×2 (08:17→21:00)
[2019-12-26] MEDS: BACLOFEN 10 MG TABLET GT SCH ×2 (08:17→21:00)
[2019-12-26] MEDS: HEPARIN SODIUM,PORCINE 5,000 UNITS/ML VIAL SQ SCH ×2 (08:21→21:01)
[2019-12-26] MEDS: Z GUARD REMEDY PASTE 57 GM TUBE TOP SCH ×2 (09:00→21:01)
[2019-12-26] MEDS: [UNRECOGNIZED DRUG - OTHER] XX SCH ×2 (09:00→21:01)
[2019-12-26] MEDS: VITAMINS A AND D OINT TP SCH (09:00)
[2019-12-26] MEDS: HYDROGEN PEROXIDE 3% 118 ML BOTTLE TP SCH ×2 (09:43→20:45)
[2019-12-26 20:18] VITALS: BP 108/66
[2019-12-26] MEDS: OMEGA-3 FATTY ACIDS/FISH OIL CAPSULE GT SCH (20:51)
[2019-12-26] MEDS: BENZOYL PEROXIDE 10% GEL 60 GM TUBE TP SCH (21:01)
[2019-12-27] MEDS: CHOLECALCIFEROL 1,000 UNIT TABLET GT SCH (05:58)
[2019-12-27] MEDS: LORATADINE 10 MG TABLET GT SCH (05:58)
[2019-12-27] MEDS: OMEPRAZOLE 20 MG CAPSULE.DR GT SCH (05:58)
[2019-12-27] MEDS: HEPARIN SODIUM,PORCINE 5,000 UNITS/ML VIAL SQ SCH ×2 (08:13→20:42)
[2019-12-27] MEDS: Z GUARD REMEDY PASTE 57 GM TUBE TOP SCH ×2 (08:14→20:44)
[2019-12-27] MEDS: BACLOFEN 10 MG TABLET GT SCH ×2 (08:14→20:41)
[2019-12-27] MEDS: [UNRECOGNIZED DRUG - OTHER] GT SCH ×2 (08:14→20:42)
[2019-12-27] MEDS: VITAMINS A AND D OINT TP SCH (08:22)
[2019-12-27] MEDS: [UNRECOGNIZED DRUG - OTHER] XX SCH ×2 (08:22→20:44)
[2019-12-27] MEDS: HYDROGEN PEROXIDE 3% 118 ML BOTTLE TP SCH ×2 (09:00→20:42)
[2019-12-27 09:36] VITALS: BP 122/53
[2019-12-27] MEDS: JEVITY 1.2 1000 ML LIQUID GT PRN (12:41)
[2019-12-27] MEDS: OMEGA-3 FATTY ACIDS/FISH OIL CAPSULE GT SCH (20:41)
[2019-12-27] MEDS: BENZOYL PEROXIDE 10% GEL 60 GM TUBE TP SCH (20:44)
[2019-12-28] MEDS: LORATADINE 10 MG TABLET GT SCH (06:17)
[2019-12-28] MEDS: OMEPRAZOLE 20 MG CAPSULE.DR GT SCH (06:17)
[2019-12-28] MEDS: CHOLECALCIFEROL 1,000 UNIT TABLET GT SCH (06:17)
[2019-12-28 08:30] VITALS: BP 103/57
[2019-12-28] MEDS: BACLOFEN 10 MG TABLET GT SCH ×2 (08:30→20:06)
[2019-12-28] MEDS: [UNRECOGNIZED DRUG - OTHER] GT SCH ×2 (08:30→20:06)
[2019-12-28] MEDS: HEPARIN SODIUM,PORCINE 5,000 UNITS/ML VIAL SQ SCH ×2 (08:33→20:20)
[2019-12-28] MEDS: Z GUARD REMEDY PASTE 57 GM TUBE TOP SCH ×2 (08:33→20:09)
[2019-12-28] MEDS: VITAMINS A AND D OINT TP SCH (08:33)
[2019-12-28] MEDS: [UNRECOGNIZED DRUG - OTHER] XX SCH ×2 (08:33→20:09)
[2019-12-28] MEDS: HYDROGEN PEROXIDE 3% 118 ML BOTTLE TP SCH ×2 (09:52→21:19)
[2019-12-28] MEDS: JEVITY 1.2 1000 ML LIQUID GT PRN (11:07)
[2019-12-28] MEDS: OMEGA-3 FATTY ACIDS/FISH OIL CAPSULE GT SCH (20:06)
[2019-12-28] MEDS: BENZOYL PEROXIDE 10% GEL 60 GM TUBE TP SCH (20:09)
[2019-12-28 20:20] VITALS: BP 113/72
[2019-12-29] MEDS: JEVITY 1.2 1000 ML LIQUID GT PRN (05:00)
[2019-12-29] MEDS: CHOLECALCIFEROL 1,000 UNIT TABLET GT SCH (05:39)
[2019-12-29] MEDS: OMEPRAZOLE 20 MG CAPSULE.DR GT SCH (05:39)
[2019-12-29] MEDS: LORATADINE 10 MG TABLET GT SCH (05:39)
[2019-12-29] MEDS: [UNRECOGNIZED DRUG - OTHER] GT SCH ×2 (08:14→20:03)
[2019-12-29] MEDS: BACLOFEN 10 MG TABLET GT SCH ×2 (08:14→20:03)
[2019-12-29] MEDS: HEPARIN SODIUM,PORCINE 5,000 UNITS/ML VIAL SQ SCH ×2 (08:15→21:33)
[2019-12-29] MEDS: Z GUARD REMEDY PASTE 57 GM TUBE TOP SCH ×2 (08:15→20:03)
[2019-12-29] MEDS: [UNRECOGNIZED DRUG - OTHER] XX SCH ×2 (08:15→20:03)
[2019-12-29] MEDS: VITAMINS A AND D OINT TP SCH (08:15)
[2019-12-29] MEDS: HYDROGEN PEROXIDE 3% 118 ML BOTTLE TP SCH ×2 (09:00→20:03)
[2019-12-29 11:19] VITALS: BP 125/71
--- NOTE | 2019-12-29 18:53 | NUR ---
This SW spoke with patient's father Daniel and mother Lizzette [phone] and informed them that per CDC and [facility] decision to minimize the risk of subacute residents becoming sick with the COVID-19 virus, visitation to all LTC facilities will be suspended, effective immediately, and until further notice. They both expressed understanding.
[2019-12-29] MEDS: OMEGA-3 FATTY ACIDS/FISH OIL CAPSULE GT SCH (20:03)
[2019-12-29] MEDS: BENZOYL PEROXIDE 10% GEL 60 GM TUBE TP SCH (20:03)
[2019-12-29 20:13] VITALS: BP 102/61
[2019-12-30] MEDS: JEVITY 1.2 1000 ML LIQUID GT PRN (04:36)
[2019-12-30] MEDS: OMEPRAZOLE 20 MG CAPSULE.DR GT SCH (05:09)
[2019-12-30] MEDS: LORATADINE 10 MG TABLET GT SCH (05:09)
[2019-12-30] MEDS: CHOLECALCIFEROL 1,000 UNIT TABLET GT SCH (05:09)
--- NOTE | 2019-12-30 08:00 | NUR ---
No respiratory distress noted,afebrile temp 97.4,trach to p mist 28 %,no changes of condition.
[2019-12-30] MEDS: BACLOFEN 10 MG TABLET GT SCH ×2 (08:35→21:29)
[2019-12-30] MEDS: [UNRECOGNIZED DRUG - OTHER] GT SCH ×2 (08:35→21:29)
[2019-12-30] MEDS: HEPARIN SODIUM,PORCINE 5,000 UNITS/ML VIAL SQ SCH ×2 (08:37→21:00)
[2019-12-30] MEDS: Z GUARD REMEDY PASTE 57 GM TUBE TOP SCH ×2 (08:37→21:29)
[2019-12-30] MEDS: VITAMINS A AND D OINT TP SCH (08:38)
[2019-12-30] MEDS: [UNRECOGNIZED DRUG - OTHER] XX SCH ×2 (08:38→21:29)
[2019-12-30] MEDS: HYDROGEN PEROXIDE 3% 118 ML BOTTLE TP SCH ×2 (09:00→21:30)
[2019-12-30 12:34] VITALS: BP 111/62
[2019-12-30 19:48] VITALS: BP 100/63
[2019-12-30] MEDS: BENZOYL PEROXIDE 10% GEL 60 GM TUBE TP SCH (21:29)
[2019-12-30] MEDS: OMEGA-3 FATTY ACIDS/FISH OIL CAPSULE GT SCH (21:29)
--- NOTE | 2019-12-30 21:30 | NUR ---
Patient is awake, temperature is 97.7 Fahrenheit, no respiratory distress, 02 sat @ 96%, HOB elevated, kept clean and comfortable.
[2019-12-31] MEDS: CHOLECALCIFEROL 1,000 UNIT TABLET GT SCH (05:44)
[2019-12-31] MEDS: OMEPRAZOLE 20 MG CAPSULE.DR GT SCH (05:44)
[2019-12-31] MEDS: LORATADINE 10 MG TABLET GT SCH (05:44)
[2019-12-31] MEDS: JEVITY 1.2 1000 ML LIQUID GT PRN (07:04)
[2019-12-31 08:03] VITALS: BP 130/64
[2019-12-31] MEDS: HYDROGEN PEROXIDE 3% 118 ML BOTTLE TP SCH ×2 (09:00→20:58)
[2019-12-31] MEDS: [UNRECOGNIZED DRUG - OTHER] GT SCH ×2 (09:25→20:34)
[2019-12-31] MEDS: Z GUARD REMEDY PASTE 57 GM TUBE TOP SCH ×2 (09:25→20:34)
[2019-12-31] MEDS: VITAMINS A AND D OINT TP SCH (09:25)
[2019-12-31] MEDS: BACLOFEN 10 MG TABLET GT SCH ×2 (09:25→20:34)
[2019-12-31] MEDS: HEPARIN SODIUM,PORCINE 5,000 UNITS/ML VIAL SQ SCH ×2 (09:25→20:36)
[2019-12-31] MEDS: [UNRECOGNIZED DRUG - OTHER] XX SCH ×2 (09:26→20:35)
--- NOTE | 2019-12-31 16:37 | NUR ---
Pt is afebrile temp 97.5,no increase secretions,no respiratory distress noted ,suctioned as needed,no changes of condition noted.
[2019-12-31 20:30] VITALS: BP 108/62
[2019-12-31] MEDS: OMEGA-3 FATTY ACIDS/FISH OIL CAPSULE GT SCH (20:34)
[2019-12-31] MEDS: BENZOYL PEROXIDE 10% GEL 60 GM TUBE TP SCH (20:34)
--- NOTE | 2019-12-31 21:45 | NUR ---
Afebrile, temperature is 97.8 Fahrenheit, trach is intact and patent, connected to vent, 02 sat is 97%, no respiratory distress noted, kept clean and comfortable.
[2020-01-01] MEDS: JEVITY 1.2 1000 ML LIQUID GT PRN ×2 (00:33→17:45)
[2020-01-01] MEDS: OMEPRAZOLE 20 MG CAPSULE.DR GT SCH (05:59)
[2020-01-01] MEDS: LORATADINE 10 MG TABLET GT SCH (05:59)
[2020-01-01] MEDS: CHOLECALCIFEROL 1,000 UNIT TABLET GT SCH (05:59)
[2020-01-01 08:03] VITALS: BP 128/63
[2020-01-01] MEDS: BACLOFEN 10 MG TABLET GT SCH ×2 (08:36→20:04)
[2020-01-01] MEDS: HEPARIN SODIUM,PORCINE 5,000 UNITS/ML VIAL SQ SCH ×2 (08:36→20:03)
[2020-01-01] MEDS: [UNRECOGNIZED DRUG - OTHER] GT SCH ×2 (08:36→20:04)
[2020-01-01] MEDS: Z GUARD REMEDY PASTE 57 GM TUBE TOP SCH ×2 (08:37→20:04)
[2020-01-01] MEDS: [UNRECOGNIZED DRUG - OTHER] XX SCH ×2 (08:37→20:04)
[2020-01-01] MEDS: VITAMINS A AND D OINT TP SCH (08:37)
[2020-01-01] MEDS: HYDROGEN PEROXIDE 3% 118 ML BOTTLE TP SCH ×2 (09:36→20:54)
--- NOTE | 2020-01-01 14:46 | NUR ---
Patient stable, no acute respiratory distress noted, repositioned q2hrs for comfort.
[2020-01-01] MEDS: OMEGA-3 FATTY ACIDS/FISH OIL CAPSULE GT SCH (20:04)
[2020-01-01] MEDS: BENZOYL PEROXIDE 10% GEL 60 GM TUBE TP SCH (20:04)
[2020-01-01 20:07] VITALS: BP 118/66
--- NOTE | 2020-01-01 21:31 | NUR ---
Temperature is 98.3, no SOB, no signs of any respiratory distress noted, patient is stable, turned and repositioned, kept clean and comfortable.
[2020-01-02] MEDS: CHOLECALCIFEROL 1,000 UNIT TABLET GT SCH (06:27)
[2020-01-02] MEDS: LORATADINE 10 MG TABLET GT SCH (06:27)
[2020-01-02] MEDS: OMEPRAZOLE 20 MG CAPSULE.DR GT SCH (06:27)
[2020-01-02 08:03] VITALS: BP 112/52
[2020-01-02] MEDS: HYDROGEN PEROXIDE 3% 118 ML BOTTLE TP SCH ×2 (08:21→20:52)
[2020-01-02] MEDS: BACLOFEN 10 MG TABLET GT SCH ×2 (08:38→20:44)
[2020-01-02] MEDS: [UNRECOGNIZED DRUG - OTHER] GT SCH ×2 (08:38→20:44)
[2020-01-02] MEDS: [UNRECOGNIZED DRUG - OTHER] XX SCH ×2 (08:39→20:44)
[2020-01-02] MEDS: VITAMINS A AND D OINT TP SCH (08:39)
[2020-01-02] MEDS: Z GUARD REMEDY PASTE 57 GM TUBE TOP SCH ×2 (08:39→20:44)
[2020-01-02] MEDS: HEPARIN SODIUM,PORCINE 5,000 UNITS/ML VIAL SQ SCH ×2 (08:39→20:44)
[2020-01-02] MEDS: JEVITY 1.2 1000 ML LIQUID GT PRN (17:02)
--- NOTE | 2020-01-02 18:12 | NUR ---
No respiratory distress noted,no increase secretions,afebrile temp98.6.
[2020-01-02 19:43] VITALS: BP 105/59
[2020-01-02] MEDS: OMEGA-3 FATTY ACIDS/FISH OIL CAPSULE GT SCH (20:44)
[2020-01-02] MEDS: BENZOYL PEROXIDE 10% GEL 60 GM TUBE TP SCH (20:44)
[2020-01-03] MEDS: OMEPRAZOLE 20 MG CAPSULE.DR GT SCH (05:40)
[2020-01-03] MEDS: LORATADINE 10 MG TABLET GT SCH (05:40)
[2020-01-03] MEDS: CHOLECALCIFEROL 1,000 UNIT TABLET GT SCH (05:40)
[2020-01-03 08:00] VITALS: BP 117/64
[2020-01-03] MEDS: [UNRECOGNIZED DRUG - OTHER] GT SCH ×2 (08:45→20:07)
[2020-01-03] MEDS: BACLOFEN 10 MG TABLET GT SCH ×2 (08:45→20:07)
[2020-01-03] MEDS: HEPARIN SODIUM,PORCINE 5,000 UNITS/ML VIAL SQ SCH ×2 (08:47→21:00)
[2020-01-03] MEDS: VITAMINS A AND D OINT TP SCH (08:48)
[2020-01-03] MEDS: Z GUARD REMEDY PASTE 57 GM TUBE TOP SCH ×2 (08:48→20:07)
[2020-01-03] MEDS: [UNRECOGNIZED DRUG - OTHER] XX SCH ×2 (08:48→20:07)
[2020-01-03] MEDS: HYDROGEN PEROXIDE 3% 118 ML BOTTLE TP SCH ×2 (09:23→21:57)
[2020-01-03] MEDS: JEVITY 1.2 1000 ML LIQUID GT PRN (15:45)
--- NOTE | 2020-01-03 18:15 | NUR ---
In stable condition,no respiratory distress,trach connected to p mist,afebrile temp 98.3.
[2020-01-03 19:45] VITALS: BP 100/61
[2020-01-03] MEDS: OMEGA-3 FATTY ACIDS/FISH OIL CAPSULE GT SCH (20:07)
[2020-01-03] MEDS: BENZOYL PEROXIDE 10% GEL 60 GM TUBE TP SCH (20:07)
[2020-01-04] MEDS: OMEPRAZOLE 20 MG CAPSULE.DR GT SCH (05:29)
[2020-01-04] MEDS: LORATADINE 10 MG TABLET GT SCH (05:29)
[2020-01-04] MEDS: CHOLECALCIFEROL 1,000 UNIT TABLET GT SCH (05:30)
[2020-01-04 08:00] VITALS: BP 120/64
[2020-01-04] MEDS: [UNRECOGNIZED DRUG - OTHER] GT SCH ×2 (08:31→20:47)
[2020-01-04] MEDS: BACLOFEN 10 MG TABLET GT SCH ×2 (08:31→20:47)
[2020-01-04] MEDS: VITAMINS A AND D OINT TP SCH (08:32)
[2020-01-04] MEDS: [UNRECOGNIZED DRUG - OTHER] XX SCH ×2 (08:32→20:47)
[2020-01-04] MEDS: HEPARIN SODIUM,PORCINE 5,000 UNITS/ML VIAL SQ SCH ×2 (08:32→21:04)
[2020-01-04] MEDS: Z GUARD REMEDY PASTE 57 GM TUBE TOP SCH ×2 (08:32→20:47)
[2020-01-04] MEDS: HYDROGEN PEROXIDE 3% 118 ML BOTTLE TP SCH ×2 (09:00→21:27)
[2020-01-04] MEDS: OMEGA-3 FATTY ACIDS/FISH OIL CAPSULE GT SCH (20:47)
[2020-01-04] MEDS: BENZOYL PEROXIDE 10% GEL 60 GM TUBE TP SCH (20:47)
[2020-01-04 20:55] VITALS: BP 100/64
[2020-01-05] MEDS: CHOLECALCIFEROL 1,000 UNIT TABLET GT SCH (06:06)
[2020-01-05] MEDS: LORATADINE 10 MG TABLET GT SCH (06:06)
[2020-01-05] MEDS: OMEPRAZOLE 20 MG CAPSULE.DR GT SCH (06:06)
[2020-01-05] MEDS: JEVITY 1.2 1000 ML LIQUID GT PRN (06:30)
[2020-01-05] MEDS: BACLOFEN 10 MG TABLET GT SCH ×2 (08:44→20:56)
[2020-01-05] MEDS: [UNRECOGNIZED DRUG - OTHER] XX SCH ×2 (08:44→20:56)
[2020-01-05] MEDS: [UNRECOGNIZED DRUG - OTHER] GT SCH ×2 (08:44→20:56)
[2020-01-05] MEDS: HEPARIN SODIUM,PORCINE 5,000 UNITS/ML VIAL SQ SCH ×2 (08:44→21:00)
[2020-01-05] MEDS: Z GUARD REMEDY PASTE 57 GM TUBE TOP SCH ×2 (08:44→20:56)
[2020-01-05] MEDS: VITAMINS A AND D OINT TP SCH (08:44)
[2020-01-05] MEDS: HYDROGEN PEROXIDE 3% 118 ML BOTTLE TP SCH ×2 (09:53→21:13)
[2020-01-05 11:25] VITALS: BP 109/67
[2020-01-05] MEDS: BENZOYL PEROXIDE 10% GEL 60 GM TUBE TP SCH (20:56)
[2020-01-05] MEDS: OMEGA-3 FATTY ACIDS/FISH OIL CAPSULE GT SCH (20:56)
[2020-01-05 21:44] VITALS: BP 102/65
[2020-01-06] MEDS: JEVITY 1.2 1000 ML LIQUID GT PRN (01:15)
[2020-01-06] MEDS: CHOLECALCIFEROL 1,000 UNIT TABLET GT SCH (05:08)
[2020-01-06] MEDS: LORATADINE 10 MG TABLET GT SCH (05:08)
[2020-01-06] MEDS: OMEPRAZOLE 20 MG CAPSULE.DR GT SCH (05:08)
[2020-01-06] MEDS: HEPARIN SODIUM,PORCINE 5,000 UNITS/ML VIAL SQ SCH ×2 (08:16→20:42)
[2020-01-06] MEDS: [UNRECOGNIZED DRUG - OTHER] GT SCH ×2 (08:19→20:40)
[2020-01-06] MEDS: [UNRECOGNIZED DRUG - OTHER] XX SCH ×2 (08:19→20:40)
[2020-01-06] MEDS: BACLOFEN 10 MG TABLET GT SCH ×2 (08:19→20:40)
[2020-01-06] MEDS: Z GUARD REMEDY PASTE 57 GM TUBE TOP SCH ×2 (08:19→20:40)
[2020-01-06] MEDS: VITAMINS A AND D OINT TP SCH (08:19)
[2020-01-06] MEDS: HYDROGEN PEROXIDE 3% 118 ML BOTTLE TP SCH ×2 (09:00→20:56)
--- NOTE | 2020-01-06 13:00 | NUR ---
SEEN BY DR. SANTA AND WITH NNO.
[2020-01-06] MEDS: OMEGA-3 FATTY ACIDS/FISH OIL CAPSULE GT SCH (20:40)
[2020-01-06] MEDS: BENZOYL PEROXIDE 10% GEL 60 GM TUBE TP SCH (20:40)
[2020-01-06 21:27] VITALS: BP 115/81
[2020-01-07] MEDS: JEVITY 1.2 1000 ML LIQUID GT PRN ×2 (02:49→23:37)
[2020-01-07] MEDS: CHOLECALCIFEROL 1,000 UNIT TABLET GT SCH (06:13)
[2020-01-07] MEDS: OMEPRAZOLE 20 MG CAPSULE.DR GT SCH (06:13)
[2020-01-07] MEDS: LORATADINE 10 MG TABLET GT SCH (06:13)
[2020-01-07] MEDS: HYDROGEN PEROXIDE 3% 118 ML BOTTLE TP SCH ×2 (07:50→21:11)
[2020-01-07 08:03] VITALS: BP 115/59
--- NOTE | 2020-01-07 08:38 | NUR ---
SEEN BY KALA ACOSTA WITH NNO.
[2020-01-07] MEDS: HEPARIN SODIUM,PORCINE 5,000 UNITS/ML VIAL SQ SCH ×2 (09:01→21:00)
[2020-01-07] MEDS: BACLOFEN 10 MG TABLET GT SCH ×2 (09:01→21:56)
[2020-01-07] MEDS: [UNRECOGNIZED DRUG - OTHER] GT SCH ×2 (09:01→21:56)
[2020-01-07] MEDS: VITAMINS A AND D OINT TP SCH (09:02)
[2020-01-07] MEDS: [UNRECOGNIZED DRUG - OTHER] XX SCH ×2 (09:02→21:57)
[2020-01-07] MEDS: Z GUARD REMEDY PASTE 57 GM TUBE TOP SCH ×2 (09:02→21:56)
[2020-01-07] MEDS: OMEGA-3 FATTY ACIDS/FISH OIL CAPSULE GT SCH (21:56)
[2020-01-07] MEDS: BENZOYL PEROXIDE 10% GEL 60 GM TUBE TP SCH (21:56)
[2020-01-07 22:45] VITALS: BP 105/58
[2020-01-08] MEDS: LORATADINE 10 MG TABLET GT SCH (05:49)
[2020-01-08] MEDS: CHOLECALCIFEROL 1,000 UNIT TABLET GT SCH (05:49)
[2020-01-08] MEDS: OMEPRAZOLE 20 MG CAPSULE.DR GT SCH (05:49)
--- NOTE | 2020-01-08 06:30 | NUR ---
GURJIT Thibodeaux reported scratch on the nose while changing patient. No bleeding. Dry and intact. Picture taken. Will continue to monitor.
[2020-01-08 08:05] VITALS: BP 107/55
[2020-01-08] MEDS: [UNRECOGNIZED DRUG - OTHER] GT SCH ×2 (08:25→20:39)
[2020-01-08] MEDS: BACLOFEN 10 MG TABLET GT SCH ×2 (08:25→20:39)
[2020-01-08] MEDS: HEPARIN SODIUM,PORCINE 5,000 UNITS/ML VIAL SQ SCH ×2 (08:34→20:46)
[2020-01-08] MEDS: Z GUARD REMEDY PASTE 57 GM TUBE TOP SCH ×2 (08:34→20:39)
[2020-01-08] MEDS: [UNRECOGNIZED DRUG - OTHER] XX SCH ×2 (08:34→20:39)
[2020-01-08] MEDS: VITAMINS A AND D OINT TP SCH (08:34)
[2020-01-08] MEDS: HYDROGEN PEROXIDE 3% 118 ML BOTTLE TP SCH ×2 (09:00→20:39)
[2020-01-08] MEDS: NEOMY/BACITRA/POLYMYXIN B OINT UD PACKET TP SCH (10:00)
[2020-01-08 20:00] VITALS: BP 107/73
[2020-01-08] MEDS: BENZOYL PEROXIDE 10% GEL 60 GM TUBE TP SCH (20:39)
[2020-01-08] MEDS: OMEGA-3 FATTY ACIDS/FISH OIL CAPSULE GT SCH (20:39)
[2020-01-08 20:56] VITALS: BP 149/92
[2020-01-09] MEDS: CHOLECALCIFEROL 1,000 UNIT TABLET GT SCH (05:22)
[2020-01-09] MEDS: LORATADINE 10 MG TABLET GT SCH (05:22)
[2020-01-09] MEDS: OMEPRAZOLE 20 MG CAPSULE.DR GT SCH (05:22)
[2020-01-09 08:03] VITALS: BP 130/73
[2020-01-09] MEDS: [UNRECOGNIZED DRUG - OTHER] GT SCH ×2 (08:42→21:00)
[2020-01-09] MEDS: BACLOFEN 10 MG TABLET GT SCH ×2 (08:42→21:00)
[2020-01-09] MEDS: Z GUARD REMEDY PASTE 57 GM TUBE TOP SCH ×2 (08:42→21:00)
[2020-01-09] MEDS: VITAMINS A AND D OINT TP SCH (08:43)
[2020-01-09] MEDS: [UNRECOGNIZED DRUG - OTHER] XX SCH ×2 (08:43→21:00)
[2020-01-09] MEDS: NEOMY/BACITRA/POLYMYXIN B OINT UD PACKET TP SCH (08:43)
[2020-01-09] MEDS: HEPARIN SODIUM,PORCINE 5,000 UNITS/ML VIAL SQ SCH ×2 (08:44→21:00)
[2020-01-09] MEDS: HYDROGEN PEROXIDE 3% 118 ML BOTTLE TP SCH ×2 (09:00→20:55)
--- NOTE | 2020-01-09 15:26 | NUR ---
Pharmacy Update from Today's 01/09/20 IDT meeting VS: Temp 98.7 BP 130/73 HR 91 LABS: (from 11/06/19, no new labs) Wbc 6.2 H/H 13.9/41.1 Plt 144 Na 141 K 3.7 Cl 105 CO2 27 BUN/SCr 10/0.8 BS 168 Ca 8.7 MEDICATION USE REVIEWED: > Pt not on any anti-psych or anti-seizure medications > Pt on Heparin 5000 units q12hr; last plt 144. No signs of bleeding > Pt on Claritin 10mg daily :estimated CrCl is >120ml/min. Dose OK. > PRN MED USAGE: (Nov) Tylenol for pain used x 0 Tylenol for temp used x 0 Dulcolax used x 0 NEW ORDERS NOTED: > NA Patient was reviewed and discussed in depth at IDT, with no medication issues or concerns noted per staff at this time. No further recommendations at this time, will continue to monitor
--- NOTE | 2020-01-09 15:34 | NUR ---
INTERDISCIPLINARY PLAN OF CARE CONFERENCE was held today. Patient's family was unable to attend the meeting. Dr. Castro and the Interdisciplinary Team reviewed the current plan of care in detail. RN reported on patient's medical condition. See RN IDT conference notes. No major changes in condition were reported. See also all other disciplines IDT notes and physician's progress notes for additional details.
[2020-01-09 20:15] VITALS: BP 102/61
[2020-01-09] MEDS: OMEGA-3 FATTY ACIDS/FISH OIL CAPSULE GT SCH (21:00)
[2020-01-09] MEDS: BENZOYL PEROXIDE 10% GEL 60 GM TUBE TP SCH (21:00)
[2020-01-10] MEDS: CHOLECALCIFEROL 1,000 UNIT TABLET GT SCH (06:12)
[2020-01-10] MEDS: OMEPRAZOLE 20 MG CAPSULE.DR GT SCH (06:12)
[2020-01-10] MEDS: LORATADINE 10 MG TABLET GT SCH (06:12)
[2020-01-10 08:03] VITALS: BP 100/51
[2020-01-10] MEDS: HYDROGEN PEROXIDE 3% 118 ML BOTTLE TP SCH ×2 (08:13→20:44)
[2020-01-10] MEDS: [UNRECOGNIZED DRUG - OTHER] XX SCH ×2 (09:28→20:39)
[2020-01-10] MEDS: [UNRECOGNIZED DRUG - OTHER] GT SCH ×2 (09:28→20:35)
[2020-01-10] MEDS: BACLOFEN 10 MG TABLET GT SCH ×2 (09:28→20:35)
[2020-01-10] MEDS: NEOMY/BACITRA/POLYMYXIN B OINT UD PACKET TP SCH (09:28)
[2020-01-10] MEDS: VITAMINS A AND D OINT TP SCH (09:28)
[2020-01-10] MEDS: Z GUARD REMEDY PASTE 57 GM TUBE TOP SCH ×2 (09:28→20:38)
[2020-01-10] MEDS: HEPARIN SODIUM,PORCINE 5,000 UNITS/ML VIAL SQ SCH ×2 (09:31→20:36)
[2020-01-10] MEDS: OMEGA-3 FATTY ACIDS/FISH OIL CAPSULE GT SCH (20:35)
[2020-01-10] MEDS: BENZOYL PEROXIDE 10% GEL 60 GM TUBE TP SCH (20:38)
[2020-01-10 20:43] VITALS: BP 121/57
[2020-01-11] MEDS: LORATADINE 10 MG TABLET GT SCH (05:53)
[2020-01-11] MEDS: OMEPRAZOLE 20 MG CAPSULE.DR GT SCH (05:53)
[2020-01-11] MEDS: CHOLECALCIFEROL 1,000 UNIT TABLET GT SCH (05:53)
[2020-01-11 08:04] VITALS: BP 126/72
[2020-01-11] MEDS: BACLOFEN 10 MG TABLET GT SCH ×2 (08:44→20:40)
[2020-01-11] MEDS: [UNRECOGNIZED DRUG - OTHER] GT SCH ×2 (08:45→20:42)
[2020-01-11] MEDS: Z GUARD REMEDY PASTE 57 GM TUBE TOP SCH ×2 (08:46→20:42)
[2020-01-11] MEDS: HEPARIN SODIUM,PORCINE 5,000 UNITS/ML VIAL SQ SCH ×2 (08:46→20:42)
[2020-01-11] MEDS: VITAMINS A AND D OINT TP SCH (09:00)
[2020-01-11] MEDS: HYDROGEN PEROXIDE 3% 118 ML BOTTLE TP SCH ×2 (09:00→20:42)
[2020-01-11] MEDS: NEOMY/BACITRA/POLYMYXIN B OINT UD PACKET TP SCH (09:00)
[2020-01-11] MEDS: [UNRECOGNIZED DRUG - OTHER] XX SCH ×2 (09:00→20:42)
[2020-01-11] MEDS: JEVITY 1.2 1000 ML LIQUID GT PRN (17:40)
[2020-01-11 20:04] VITALS: BP 110/62
[2020-01-11] MEDS: OMEGA-3 FATTY ACIDS/FISH OIL CAPSULE GT SCH (20:40)
[2020-01-11] MEDS: BENZOYL PEROXIDE 10% GEL 60 GM TUBE TP SCH (20:42)
[2020-01-12] MEDS: CHOLECALCIFEROL 1,000 UNIT TABLET GT SCH (05:44)
[2020-01-12] MEDS: OMEPRAZOLE 20 MG CAPSULE.DR GT SCH (05:44)
[2020-01-12] MEDS: LORATADINE 10 MG TABLET GT SCH (05:44)
[2020-01-12 08:02] VITALS: BP 108/56
[2020-01-12] MEDS: BACLOFEN 10 MG TABLET GT SCH ×2 (08:18→20:22)
[2020-01-12] MEDS: [UNRECOGNIZED DRUG - OTHER] GT SCH ×2 (08:18→20:22)
[2020-01-12] MEDS: Z GUARD REMEDY PASTE 57 GM TUBE TOP SCH ×2 (08:20→20:22)
[2020-01-12] MEDS: NEOMY/BACITRA/POLYMYXIN B OINT UD PACKET TP SCH (08:20)
[2020-01-12] MEDS: [UNRECOGNIZED DRUG - OTHER] XX SCH ×2 (08:20→20:22)
[2020-01-12] MEDS: VITAMINS A AND D OINT TP SCH (08:20)
[2020-01-12] MEDS: HEPARIN SODIUM,PORCINE 5,000 UNITS/ML VIAL SQ SCH ×2 (08:20→20:22)
[2020-01-12] MEDS: HYDROGEN PEROXIDE 3% 118 ML BOTTLE TP SCH ×2 (09:00→21:05)
--- NOTE | 2020-01-12 16:13 | NUR ---
This and Subacute Syrup Maker Joel Rodriguez provided an update to patient's mother Lizzette via email that per advisement from [facility], [facility], and CDC, visitation restrictions will continue to remain in place for all fci care facilities in order to protect the health and safety of residents and staff. Therefore [facility] will continue to restrict all visitations, until further notice.
[2020-01-12 20:07] VITALS: BP 115/61
[2020-01-12] MEDS: BENZOYL PEROXIDE 10% GEL 60 GM TUBE TP SCH (20:22)
[2020-01-12] MEDS: OMEGA-3 FATTY ACIDS/FISH OIL CAPSULE GT SCH (20:22)
[2020-01-12] MEDS: JEVITY 1.2 1000 ML LIQUID GT PRN (23:49)
[2020-01-13] MEDS: LORATADINE 10 MG TABLET GT SCH (05:41)
[2020-01-13] MEDS: CHOLECALCIFEROL 1,000 UNIT TABLET GT SCH (05:41)
[2020-01-13] MEDS: OMEPRAZOLE 20 MG CAPSULE.DR GT SCH (05:41)
[2020-01-13] MEDS: HYDROGEN PEROXIDE 3% 118 ML BOTTLE TP SCH ×2 (07:15→21:40)
[2020-01-13 08:00] VITALS: BP 120/62
[2020-01-13] MEDS: BACLOFEN 10 MG TABLET GT SCH ×2 (08:44→20:22)
[2020-01-13] MEDS: NEOMY/BACITRA/POLYMYXIN B OINT UD PACKET TP SCH (08:45)
[2020-01-13] MEDS: [UNRECOGNIZED DRUG - OTHER] GT SCH ×2 (08:45→20:22)
[2020-01-13] MEDS: Z GUARD REMEDY PASTE 57 GM TUBE TOP SCH ×2 (08:45→20:22)
[2020-01-13] MEDS: HEPARIN SODIUM,PORCINE 5,000 UNITS/ML VIAL SQ SCH ×2 (08:53→20:22)
[2020-01-13] MEDS: [UNRECOGNIZED DRUG - OTHER] XX SCH ×2 (09:21→20:22)
[2020-01-13] MEDS: VITAMINS A AND D OINT TP SCH (09:21)
[2020-01-13] MEDS: JEVITY 1.2 1000 ML LIQUID GT PRN (18:59)
[2020-01-13] MEDS: OMEGA-3 FATTY ACIDS/FISH OIL CAPSULE GT SCH (20:22)
[2020-01-13] MEDS: BENZOYL PEROXIDE 10% GEL 60 GM TUBE TP SCH (20:22)
[2020-01-13 20:32] VITALS: BP 100/69
[2020-01-14] MEDS: CHOLECALCIFEROL 1,000 UNIT TABLET GT SCH (05:11)
[2020-01-14] MEDS: OMEPRAZOLE 20 MG CAPSULE.DR GT SCH (05:11)
[2020-01-14] MEDS: LORATADINE 10 MG TABLET GT SCH (05:11)
[2020-01-14 08:00] VITALS: BP 114/54
[2020-01-14] MEDS: HYDROGEN PEROXIDE 3% 118 ML BOTTLE TP SCH ×2 (08:27→20:25)
[2020-01-14] MEDS: Z GUARD REMEDY PASTE 57 GM TUBE TOP SCH ×2 (08:45→20:27)
[2020-01-14] MEDS: [UNRECOGNIZED DRUG - OTHER] XX SCH ×2 (08:45→20:27)
[2020-01-14] MEDS: BACLOFEN 10 MG TABLET GT SCH ×2 (08:45→20:25)
[2020-01-14] MEDS: NEOMY/BACITRA/POLYMYXIN B OINT UD PACKET TP SCH (08:45)
[2020-01-14] MEDS: [UNRECOGNIZED DRUG - OTHER] GT SCH ×2 (08:45→20:25)
[2020-01-14] MEDS: HEPARIN SODIUM,PORCINE 5,000 UNITS/ML VIAL SQ SCH ×2 (08:45→20:29)
[2020-01-14] MEDS: VITAMINS A AND D OINT TP SCH (08:45)
[2020-01-14] MEDS: JEVITY 1.2 1000 ML LIQUID GT PRN (17:25)
[2020-01-14 20:07] VITALS: BP 123/79
[2020-01-14] MEDS: OMEGA-3 FATTY ACIDS/FISH OIL CAPSULE GT SCH (20:25)
[2020-01-14] MEDS: BENZOYL PEROXIDE 10% GEL 60 GM TUBE TP SCH (20:27)
[2020-01-15] MEDS: CHOLECALCIFEROL 1,000 UNIT TABLET GT SCH (05:09)
[2020-01-15] MEDS: OMEPRAZOLE 20 MG CAPSULE.DR GT SCH (05:09)
[2020-01-15] MEDS: LORATADINE 10 MG TABLET GT SCH (05:09)
[2020-01-15 08:00] VITALS: BP 105/62
[2020-01-15] MEDS: [UNRECOGNIZED DRUG - OTHER] XX SCH ×2 (08:20→21:00)
[2020-01-15] MEDS: Z GUARD REMEDY PASTE 57 GM TUBE TOP SCH ×2 (08:20→21:00)
[2020-01-15] MEDS: VITAMINS A AND D OINT TP SCH (08:20)
[2020-01-15] MEDS: BACLOFEN 10 MG TABLET GT SCH ×2 (08:20→21:59)
[2020-01-15] MEDS: [UNRECOGNIZED DRUG - OTHER] GT SCH ×2 (08:20→21:00)
[2020-01-15] MEDS: HEPARIN SODIUM,PORCINE 5,000 UNITS/ML VIAL SQ SCH ×2 (08:21→21:00)
[2020-01-15] MEDS: HYDROGEN PEROXIDE 3% 118 ML BOTTLE TP SCH ×2 (09:33→20:54)
[2020-01-15] MEDS: JEVITY 1.2 1000 ML LIQUID GT PRN (15:22)
[2020-01-15 20:00] VITALS: BP 100/67
[2020-01-15] MEDS: BENZOYL PEROXIDE 10% GEL 60 GM TUBE TP SCH (21:00)
[2020-01-15] MEDS: OMEGA-3 FATTY ACIDS/FISH OIL CAPSULE GT SCH (21:59)
[2020-01-16] MEDS: LORATADINE 10 MG TABLET GT SCH (05:39)
[2020-01-16] MEDS: OMEPRAZOLE 20 MG CAPSULE.DR GT SCH (05:40)
[2020-01-16] MEDS: CHOLECALCIFEROL 1,000 UNIT TABLET GT SCH (05:40)
[2020-01-16] MEDS: JEVITY 1.2 1000 ML LIQUID GT PRN ×2 (06:40→19:05)
[2020-01-16 08:03] VITALS: BP 123/54
--- NOTE | 2020-01-16 08:30 | NUR ---
Seen and examined by Jules MARRUFO,no new orders .
[2020-01-16] MEDS: HEPARIN SODIUM,PORCINE 5,000 UNITS/ML VIAL SQ SCH ×2 (08:55→21:57)
[2020-01-16] MEDS: BACLOFEN 10 MG TABLET GT SCH ×2 (08:55→21:57)
[2020-01-16] MEDS: [UNRECOGNIZED DRUG - OTHER] GT SCH ×2 (08:55→21:57)
[2020-01-16] MEDS: [UNRECOGNIZED DRUG - OTHER] XX SCH ×2 (08:56→21:57)
[2020-01-16] MEDS: VITAMINS A AND D OINT TP SCH (08:56)
[2020-01-16] MEDS: Z GUARD REMEDY PASTE 57 GM TUBE TOP SCH ×2 (08:56→21:57)
[2020-01-16] MEDS: HYDROGEN PEROXIDE 3% 118 ML BOTTLE TP SCH ×2 (09:32→21:51)
[2020-01-16 21:09] VITALS: BP 102/65
[2020-01-16] MEDS: BENZOYL PEROXIDE 10% GEL 60 GM TUBE TP SCH (21:57)
[2020-01-16] MEDS: OMEGA-3 FATTY ACIDS/FISH OIL CAPSULE GT SCH (21:57)
[2020-01-17] MEDS: LORATADINE 10 MG TABLET GT SCH (06:16)
[2020-01-17] MEDS: OMEPRAZOLE 20 MG CAPSULE.DR GT SCH (06:16)
[2020-01-17] MEDS: CHOLECALCIFEROL 1,000 UNIT TABLET GT SCH (06:16)
[2020-01-17] MEDS: HYDROGEN PEROXIDE 3% 118 ML BOTTLE TP SCH ×2 (07:58→21:29)
[2020-01-17 08:00] VITALS: BP 110/64
[2020-01-17] MEDS: [UNRECOGNIZED DRUG - OTHER] GT SCH ×2 (08:40→20:41)
[2020-01-17] MEDS: BACLOFEN 10 MG TABLET GT SCH ×2 (08:40→20:41)
[2020-01-17] MEDS: VITAMINS A AND D OINT TP SCH (08:41)
[2020-01-17] MEDS: [UNRECOGNIZED DRUG - OTHER] XX SCH ×2 (08:41→20:44)
[2020-01-17] MEDS: HEPARIN SODIUM,PORCINE 5,000 UNITS/ML VIAL SQ SCH ×2 (08:41→20:44)
[2020-01-17] MEDS: Z GUARD REMEDY PASTE 57 GM TUBE TOP SCH ×2 (08:41→20:44)
--- NOTE | 2020-01-17 14:00 | NUR ---
Operational Risk Consultant care done by Dr Duran.
--- NOTE | 2020-01-17 18:13 | NUR ---
Seen and examined by Dr Diaz with no new orders.
[2020-01-17 20:09] VITALS: BP 99/63
[2020-01-17] MEDS: OMEGA-3 FATTY ACIDS/FISH OIL CAPSULE GT SCH (20:41)
[2020-01-17] MEDS: BENZOYL PEROXIDE 10% GEL 60 GM TUBE TP SCH (20:44)
[2020-01-18] MEDS: OMEPRAZOLE 20 MG CAPSULE.DR GT SCH (06:21)
[2020-01-18] MEDS: CHOLECALCIFEROL 1,000 UNIT TABLET GT SCH (06:21)
[2020-01-18] MEDS: LORATADINE 10 MG TABLET GT SCH (06:21)
[2020-01-18 08:00] VITALS: BP 114/59
[2020-01-18] MEDS: BACLOFEN 10 MG TABLET GT SCH ×2 (08:31→20:41)
[2020-01-18] MEDS: [UNRECOGNIZED DRUG - OTHER] GT SCH ×2 (08:32→20:41)
[2020-01-18] MEDS: Z GUARD REMEDY PASTE 57 GM TUBE TOP SCH ×2 (08:32→20:43)
[2020-01-18] MEDS: HEPARIN SODIUM,PORCINE 5,000 UNITS/ML VIAL SQ SCH ×2 (08:33→20:43)
[2020-01-18] MEDS: VITAMINS A AND D OINT TP SCH (09:00)
[2020-01-18] MEDS: [UNRECOGNIZED DRUG - OTHER] XX SCH ×2 (09:00→20:43)
[2020-01-18] MEDS: HYDROGEN PEROXIDE 3% 118 ML BOTTLE TP SCH ×2 (09:00→21:02)
[2020-01-18] MEDS: JEVITY 1.2 1000 ML LIQUID GT PRN (11:45)
[2020-01-18 20:15] VITALS: BP 97/60
[2020-01-18] MEDS: OMEGA-3 FATTY ACIDS/FISH OIL CAPSULE GT SCH (20:41)
[2020-01-18] MEDS: BENZOYL PEROXIDE 10% GEL 60 GM TUBE TP SCH (20:43)
[2020-01-19] MEDS: LORATADINE 10 MG TABLET GT SCH (06:18)
[2020-01-19] MEDS: OMEPRAZOLE 20 MG CAPSULE.DR GT SCH (06:18)
[2020-01-19] MEDS: CHOLECALCIFEROL 1,000 UNIT TABLET GT SCH (06:18)
[2020-01-19 08:03] VITALS: BP 108/69
[2020-01-19] MEDS: [UNRECOGNIZED DRUG - OTHER] GT SCH ×2 (08:28→21:04)
[2020-01-19] MEDS: Z GUARD REMEDY PASTE 57 GM TUBE TOP SCH ×2 (08:28→21:03)
[2020-01-19] MEDS: VITAMINS A AND D OINT TP SCH (08:28)
[2020-01-19] MEDS: BACLOFEN 10 MG TABLET GT SCH ×2 (08:28→21:04)
[2020-01-19] MEDS: HEPARIN SODIUM,PORCINE 5,000 UNITS/ML VIAL SQ SCH ×2 (08:29→21:02)
[2020-01-19] MEDS: HYDROGEN PEROXIDE 3% 118 ML BOTTLE TP SCH ×2 (09:00→21:04)
[2020-01-19] MEDS: [UNRECOGNIZED DRUG - OTHER] XX SCH ×2 (09:00→21:04)
--- NOTE | 2020-01-19 09:57 | NUR ---
SEEN BY KALA STRANGE N.P. AND WITH NNO.
--- NOTE | 2020-01-19 11:07 | NUR ---
NEW ORDER CARRIED OUT FOR PT. EVAL FOR BOTH KNEES SPLINT.
[2020-01-19] MEDS: OMEGA-3 FATTY ACIDS/FISH OIL CAPSULE GT SCH (21:04)
[2020-01-19] MEDS: BENZOYL PEROXIDE 10% GEL 60 GM TUBE TP SCH (21:04)
[2020-01-19 21:09] VITALS: BP 92/60
[2020-01-20] MEDS: JEVITY 1.2 1000 ML LIQUID GT PRN ×2 (01:40→23:36)
[2020-01-20] MEDS: CHOLECALCIFEROL 1,000 UNIT TABLET GT SCH (05:28)
[2020-01-20] MEDS: LORATADINE 10 MG TABLET GT SCH (05:28)
[2020-01-20] MEDS: OMEPRAZOLE 20 MG CAPSULE.DR GT SCH (05:28)
[2020-01-20] MEDS: HYDROGEN PEROXIDE 3% 118 ML BOTTLE TP SCH ×2 (07:15→19:17)
[2020-01-20 08:02] VITALS: BP 94/61
[2020-01-20] MEDS: VITAMINS A AND D OINT TP SCH (08:44)
[2020-01-20] MEDS: Z GUARD REMEDY PASTE 57 GM TUBE TOP SCH ×2 (08:44→21:17)
[2020-01-20] MEDS: [UNRECOGNIZED DRUG - OTHER] GT SCH ×2 (08:44→21:17)
[2020-01-20] MEDS: BACLOFEN 10 MG TABLET GT SCH ×2 (08:44→21:17)
[2020-01-20] MEDS: [UNRECOGNIZED DRUG - OTHER] XX SCH ×2 (08:45→21:17)
[2020-01-20] MEDS: HEPARIN SODIUM,PORCINE 5,000 UNITS/ML VIAL SQ SCH ×2 (08:52→21:32)
[2020-01-20 20:11] VITALS: BP 136/74
[2020-01-20] MEDS: BENZOYL PEROXIDE 10% GEL 60 GM TUBE TP SCH (21:17)
[2020-01-20] MEDS: OMEGA-3 FATTY ACIDS/FISH OIL CAPSULE GT SCH (21:17)
--- NOTE | 2020-01-20 21:45 | NUR ---
Seen by Darcy Khan NP with no new orders.
[2020-01-21] MEDS: OMEPRAZOLE 20 MG CAPSULE.DR GT SCH (05:19)
[2020-01-21] MEDS: CHOLECALCIFEROL 1,000 UNIT TABLET GT SCH (05:19)
[2020-01-21] MEDS: LORATADINE 10 MG TABLET GT SCH (05:19)
[2020-01-21 08:03] VITALS: BP 138/72
[2020-01-21] MEDS: [UNRECOGNIZED DRUG - OTHER] GT SCH ×2 (08:12→20:28)
[2020-01-21] MEDS: HEPARIN SODIUM,PORCINE 5,000 UNITS/ML VIAL SQ SCH ×2 (08:12→20:31)
[2020-01-21] MEDS: VITAMINS A AND D OINT TP SCH (08:13)
[2020-01-21] MEDS: BACLOFEN 10 MG TABLET GT SCH ×2 (08:13→20:28)
[2020-01-21] MEDS: [UNRECOGNIZED DRUG - OTHER] XX SCH ×2 (08:13→20:28)
[2020-01-21] MEDS: Z GUARD REMEDY PASTE 57 GM TUBE TOP SCH ×2 (08:13→20:28)
[2020-01-21] MEDS: HYDROGEN PEROXIDE 3% 118 ML BOTTLE TP SCH ×2 (09:17→20:19)
[2020-01-21] MEDS: OMEGA-3 FATTY ACIDS/FISH OIL CAPSULE GT SCH (20:27)
[2020-01-21] MEDS: BENZOYL PEROXIDE 10% GEL 60 GM TUBE TP SCH (20:28)
[2020-01-21 21:09] VITALS: BP 91/53
[2020-01-22] MEDS: LORATADINE 10 MG TABLET GT SCH (05:23)
[2020-01-22] MEDS: CHOLECALCIFEROL 1,000 UNIT TABLET GT SCH (05:23)
[2020-01-22] MEDS: OMEPRAZOLE 20 MG CAPSULE.DR GT SCH (05:23)
[2020-01-22] MEDS: BACLOFEN 10 MG TABLET GT SCH ×2 (08:19→21:06)
[2020-01-22] MEDS: [UNRECOGNIZED DRUG - OTHER] GT SCH ×2 (08:19→21:06)
[2020-01-22] MEDS: HEPARIN SODIUM,PORCINE 5,000 UNITS/ML VIAL SQ SCH ×2 (08:22→21:53)
[2020-01-22] MEDS: [UNRECOGNIZED DRUG - OTHER] XX SCH ×2 (08:26→21:06)
[2020-01-22] MEDS: VITAMINS A AND D OINT TP SCH (08:26)
[2020-01-22] MEDS: Z GUARD REMEDY PASTE 57 GM TUBE TOP SCH ×2 (08:26→21:06)
[2020-01-22 08:30] VITALS: BP 90/58
[2020-01-22] MEDS: HYDROGEN PEROXIDE 3% 118 ML BOTTLE TP SCH ×2 (09:00→21:24)
--- NOTE | 2020-01-22 09:48 | NUR ---
SEEN AND EXAMINED BY DR. SANTA AND WITH NNO.
--- NOTE | 2020-01-22 10:47 | NUR ---
NEW ORDER WAS CARRIED OUT FROM DR. SANTA RECOMMENDED BY P.T.
[2020-01-22] MEDS: JEVITY 1.2 1000 ML LIQUID GT PRN (13:43)
[2020-01-22 20:54] VITALS: BP 90/55
[2020-01-22] MEDS: BENZOYL PEROXIDE 10% GEL 60 GM TUBE TP SCH (21:06)
[2020-01-22] MEDS: OMEGA-3 FATTY ACIDS/FISH OIL CAPSULE GT SCH (21:06)
[2020-01-23] MEDS: LORATADINE 10 MG TABLET GT SCH (05:07)
[2020-01-23] MEDS: OMEPRAZOLE 20 MG CAPSULE.DR GT SCH (05:07)
[2020-01-23] MEDS: CHOLECALCIFEROL 1,000 UNIT TABLET GT SCH (05:07)
[2020-01-23] MEDS: VITAMINS A AND D OINT TP SCH (09:21)
[2020-01-23] MEDS: Z GUARD REMEDY PASTE 57 GM TUBE TOP SCH ×2 (09:21→21:02)
[2020-01-23] MEDS: HYDROGEN PEROXIDE 3% 118 ML BOTTLE TP SCH ×2 (09:21→20:42)
[2020-01-23] MEDS: [UNRECOGNIZED DRUG - OTHER] XX SCH ×2 (09:21→21:02)
[2020-01-23] MEDS: [UNRECOGNIZED DRUG - OTHER] GT SCH ×2 (09:22→21:01)
[2020-01-23] MEDS: HEPARIN SODIUM,PORCINE 5,000 UNITS/ML VIAL SQ SCH ×2 (09:25→21:01)
[2020-01-23] MEDS: BACLOFEN 10 MG TABLET GT SCH ×2 (09:25→21:01)
[2020-01-23 10:16] VITALS: BP 105/58
[2020-01-23 20:16] VITALS: BP 104/54
[2020-01-23] MEDS: OMEGA-3 FATTY ACIDS/FISH OIL CAPSULE GT SCH (21:01)
[2020-01-23] MEDS: BENZOYL PEROXIDE 10% GEL 60 GM TUBE TP SCH (21:02)
[2020-01-24] MEDS: JEVITY 1.2 1000 ML LIQUID GT PRN (03:30)
[2020-01-24] MEDS: CHOLECALCIFEROL 1,000 UNIT TABLET GT SCH (06:10)
[2020-01-24] MEDS: LORATADINE 10 MG TABLET GT SCH (06:10)
[2020-01-24] MEDS: OMEPRAZOLE 20 MG CAPSULE.DR GT SCH (06:10)
[2020-01-24 08:00] VITALS: BP 120/62
[2020-01-24] MEDS: [UNRECOGNIZED DRUG - OTHER] GT SCH ×2 (08:16→21:01)
[2020-01-24] MEDS: BACLOFEN 10 MG TABLET GT SCH ×2 (08:16→21:00)
[2020-01-24] MEDS: Z GUARD REMEDY PASTE 57 GM TUBE TOP SCH ×2 (08:17→21:04)
[2020-01-24] MEDS: VITAMINS A AND D OINT TP SCH (08:17)
[2020-01-24] MEDS: [UNRECOGNIZED DRUG - OTHER] XX SCH ×2 (08:17→21:04)
[2020-01-24] MEDS: HEPARIN SODIUM,PORCINE 5,000 UNITS/ML VIAL SQ SCH ×2 (08:17→21:04)
[2020-01-24] MEDS: HYDROGEN PEROXIDE 3% 118 ML BOTTLE TP SCH ×2 (09:15→21:34)
[2020-01-24 20:04] VITALS: BP 113/66
[2020-01-24] MEDS: OMEGA-3 FATTY ACIDS/FISH OIL CAPSULE GT SCH (21:00)
[2020-01-24] MEDS: BENZOYL PEROXIDE 10% GEL 60 GM TUBE TP SCH (21:04)
[2020-01-25] MEDS: JEVITY 1.2 1000 ML LIQUID GT PRN (02:00)
[2020-01-25] MEDS: CHOLECALCIFEROL 1,000 UNIT TABLET GT SCH (06:20)
[2020-01-25] MEDS: LORATADINE 10 MG TABLET GT SCH (06:20)
[2020-01-25] MEDS: OMEPRAZOLE 20 MG CAPSULE.DR GT SCH (06:20)
[2020-01-25 08:00] VITALS: BP 110/63
[2020-01-25] MEDS: HYDROGEN PEROXIDE 3% 118 ML BOTTLE TP SCH ×2 (08:28→21:14)
[2020-01-25] MEDS: HEPARIN SODIUM,PORCINE 5,000 UNITS/ML VIAL SQ SCH ×2 (08:40→20:32)
[2020-01-25] MEDS: VITAMINS A AND D OINT TP SCH (08:41)
[2020-01-25] MEDS: [UNRECOGNIZED DRUG - OTHER] GT SCH ×2 (08:41→20:30)
[2020-01-25] MEDS: Z GUARD REMEDY PASTE 57 GM TUBE TOP SCH ×2 (08:41→20:32)
[2020-01-25] MEDS: [UNRECOGNIZED DRUG - OTHER] XX SCH ×2 (08:41→20:33)
[2020-01-25] MEDS: BACLOFEN 10 MG TABLET GT SCH ×2 (08:41→20:29)
[2020-01-25 20:00] VITALS: BP 105/68
[2020-01-25] MEDS: OMEGA-3 FATTY ACIDS/FISH OIL CAPSULE GT SCH (20:29)
[2020-01-25] MEDS: BENZOYL PEROXIDE 10% GEL 60 GM TUBE TP SCH (20:32)
[2020-01-26] MEDS: JEVITY 1.2 1000 ML LIQUID GT PRN (01:32)
[2020-01-26] MEDS: CHOLECALCIFEROL 1,000 UNIT TABLET GT SCH (06:08)
[2020-01-26] MEDS: OMEPRAZOLE 20 MG CAPSULE.DR GT SCH (06:08)
[2020-01-26] MEDS: LORATADINE 10 MG TABLET GT SCH (06:08)
[2020-01-26 08:02] VITALS: BP 114/61
[2020-01-26] MEDS: BACLOFEN 10 MG TABLET GT SCH ×2 (08:27→21:38)
[2020-01-26] MEDS: [UNRECOGNIZED DRUG - OTHER] GT SCH ×2 (08:27→21:38)
[2020-01-26] MEDS: Z GUARD REMEDY PASTE 57 GM TUBE TOP SCH ×2 (08:28→21:38)
[2020-01-26] MEDS: [UNRECOGNIZED DRUG - OTHER] XX SCH ×2 (08:28→21:38)
[2020-01-26] MEDS: VITAMINS A AND D OINT TP SCH (08:28)
[2020-01-26] MEDS: HEPARIN SODIUM,PORCINE 5,000 UNITS/ML VIAL SQ SCH ×2 (08:28→21:00)
[2020-01-26] MEDS: HYDROGEN PEROXIDE 3% 118 ML BOTTLE TP SCH ×2 (09:12→21:14)
[2020-01-26 21:18] VITALS: BP 106/72
[2020-01-26] MEDS: OMEGA-3 FATTY ACIDS/FISH OIL CAPSULE GT SCH (21:38)
[2020-01-26] MEDS: BENZOYL PEROXIDE 10% GEL 60 GM TUBE TP SCH (21:38)
[2020-01-27] MEDS: OMEPRAZOLE 20 MG CAPSULE.DR GT SCH (05:43)
[2020-01-27] MEDS: LORATADINE 10 MG TABLET GT SCH (05:43)
[2020-01-27] MEDS: CHOLECALCIFEROL 1,000 UNIT TABLET GT SCH (05:43)
[2020-01-27] MEDS: HYDROGEN PEROXIDE 3% 118 ML BOTTLE TP SCH ×2 (07:15→20:50)
[2020-01-27 08:02] VITALS: BP 109/68
[2020-01-27] MEDS: BACLOFEN 10 MG TABLET GT SCH ×2 (08:54→20:50)
[2020-01-27] MEDS: [UNRECOGNIZED DRUG - OTHER] GT SCH ×2 (08:54→20:50)
[2020-01-27] MEDS: VITAMINS A AND D OINT TP SCH (08:56)
[2020-01-27] MEDS: [UNRECOGNIZED DRUG - OTHER] XX SCH ×2 (08:56→20:50)
[2020-01-27] MEDS: HEPARIN SODIUM,PORCINE 5,000 UNITS/ML VIAL SQ SCH ×2 (08:56→21:00)
[2020-01-27] MEDS: Z GUARD REMEDY PASTE 57 GM TUBE TOP SCH ×2 (08:56→20:50)
[2020-01-27] MEDS: JEVITY 1.2 1000 ML LIQUID GT PRN (17:56)
[2020-01-27 19:52] VITALS: BP 101/65
[2020-01-27] MEDS: OMEGA-3 FATTY ACIDS/FISH OIL CAPSULE GT SCH (20:50)
[2020-01-27] MEDS: BENZOYL PEROXIDE 10% GEL 60 GM TUBE TP SCH (20:50)
[2020-01-28] MEDS: OMEPRAZOLE 20 MG CAPSULE.DR GT SCH (05:03)
[2020-01-28] MEDS: CHOLECALCIFEROL 1,000 UNIT TABLET GT SCH (05:03)
[2020-01-28] MEDS: LORATADINE 10 MG TABLET GT SCH (05:03)
[2020-01-28 08:03] VITALS: BP 108/68
[2020-01-28] MEDS: [UNRECOGNIZED DRUG - OTHER] GT SCH ×2 (09:00→20:53)
[2020-01-28] MEDS: Z GUARD REMEDY PASTE 57 GM TUBE TOP SCH ×2 (09:00→20:53)
[2020-01-28] MEDS: [UNRECOGNIZED DRUG - OTHER] XX SCH ×2 (09:00→21:50)
[2020-01-28] MEDS: VITAMINS A AND D OINT TP SCH (09:00)
[2020-01-28] MEDS: BACLOFEN 10 MG TABLET GT SCH ×2 (09:00→20:53)
[2020-01-28] MEDS: HEPARIN SODIUM,PORCINE 5,000 UNITS/ML VIAL SQ SCH ×2 (09:00→21:43)
[2020-01-28] MEDS: HYDROGEN PEROXIDE 3% 118 ML BOTTLE TP SCH ×2 (09:24→21:34)
--- NOTE | 2020-01-28 15:46 | NUR ---
HANDOVER REPORT GIVEN RESTING QUIETLY IN NO ACUTE DISTRESS
[2020-01-28] MEDS: JEVITY 1.2 1000 ML LIQUID GT PRN (18:23)
[2020-01-28 20:27] VITALS: BP 95/59
[2020-01-28] MEDS: OMEGA-3 FATTY ACIDS/FISH OIL CAPSULE GT SCH (20:53)
[2020-01-28] MEDS: BENZOYL PEROXIDE 10% GEL 60 GM TUBE TP SCH (21:50)
[2020-01-29] MEDS: LORATADINE 10 MG TABLET GT SCH (05:46)
[2020-01-29] MEDS: OMEPRAZOLE 20 MG CAPSULE.DR GT SCH (05:46)
[2020-01-29] MEDS: CHOLECALCIFEROL 1,000 UNIT TABLET GT SCH (05:46)
[2020-01-29 08:03] VITALS: BP 124/74
[2020-01-29] MEDS: HYDROGEN PEROXIDE 3% 118 ML BOTTLE TP SCH ×2 (08:06→20:01)
[2020-01-29] MEDS: HEPARIN SODIUM,PORCINE 5,000 UNITS/ML VIAL SQ SCH ×2 (08:18→20:33)
[2020-01-29] MEDS: VITAMINS A AND D OINT TP SCH (08:18)
[2020-01-29] MEDS: Z GUARD REMEDY PASTE 57 GM TUBE TOP SCH ×2 (08:18→20:01)
[2020-01-29] MEDS: [UNRECOGNIZED DRUG - OTHER] GT SCH ×2 (08:18→20:00)
[2020-01-29] MEDS: BACLOFEN 10 MG TABLET GT SCH ×2 (08:18→20:00)
[2020-01-29] MEDS: [UNRECOGNIZED DRUG - OTHER] XX SCH ×2 (08:18→20:01)
[2020-01-29] MEDS: OMEGA-3 FATTY ACIDS/FISH OIL CAPSULE GT SCH (20:00)
[2020-01-29] MEDS: BENZOYL PEROXIDE 10% GEL 60 GM TUBE TP SCH (20:01)
[2020-01-29 20:21] VITALS: BP 104/62
[2020-01-30] MEDS: JEVITY 1.2 1000 ML LIQUID GT PRN ×2 (04:23→22:20)
[2020-01-30] MEDS: OMEPRAZOLE 20 MG CAPSULE.DR GT SCH (05:04)
[2020-01-30] MEDS: LORATADINE 10 MG TABLET GT SCH (05:04)
[2020-01-30] MEDS: CHOLECALCIFEROL 1,000 UNIT TABLET GT SCH (05:04)
[2020-01-30 08:05] VITALS: BP 115/68
[2020-01-30] MEDS: [UNRECOGNIZED DRUG - OTHER] GT SCH ×2 (08:42→21:00)
[2020-01-30] MEDS: BACLOFEN 10 MG TABLET GT SCH ×2 (08:42→21:00)
[2020-01-30] MEDS: Z GUARD REMEDY PASTE 57 GM TUBE TOP SCH ×2 (08:43→21:00)
[2020-01-30] MEDS: VITAMINS A AND D OINT TP SCH (08:43)
[2020-01-30] MEDS: [UNRECOGNIZED DRUG - OTHER] XX SCH ×2 (08:43→21:00)
[2020-01-30] MEDS: HEPARIN SODIUM,PORCINE 5,000 UNITS/ML VIAL SQ SCH ×2 (08:43→21:00)
[2020-01-30] MEDS: HYDROGEN PEROXIDE 3% 118 ML BOTTLE TP SCH ×2 (09:00→21:00)
[2020-01-30] MEDS: BISACODYL 10 MG SUPP.RECT RC PRN (09:02)
[2020-01-30 20:45] VITALS: BP 105/79
[2020-01-30] MEDS: OMEGA-3 FATTY ACIDS/FISH OIL CAPSULE GT SCH (21:00)
[2020-01-30] MEDS: BENZOYL PEROXIDE 10% GEL 60 GM TUBE TP SCH (21:00)
[2020-01-31] MEDS: LORATADINE 10 MG TABLET GT SCH (05:55)
[2020-01-31] MEDS: OMEPRAZOLE 20 MG CAPSULE.DR GT SCH (05:55)
[2020-01-31] MEDS: CHOLECALCIFEROL 1,000 UNIT TABLET GT SCH (05:55)
[2020-01-31 08:00] VITALS: BP 106/59
[2020-01-31] MEDS: HYDROGEN PEROXIDE 3% 118 ML BOTTLE TP SCH ×2 (08:50→20:44)
[2020-01-31] MEDS: Z GUARD REMEDY PASTE 57 GM TUBE TOP SCH ×2 (09:00→20:44)
[2020-01-31] MEDS: [UNRECOGNIZED DRUG - OTHER] XX SCH ×2 (09:00→20:44)
[2020-01-31] MEDS: [UNRECOGNIZED DRUG - OTHER] GT SCH ×2 (09:00→20:44)
[2020-01-31] MEDS: VITAMINS A AND D OINT TP SCH (09:00)
[2020-01-31] MEDS: BACLOFEN 10 MG TABLET GT SCH ×2 (09:01→20:44)
[2020-01-31] MEDS: HEPARIN SODIUM,PORCINE 5,000 UNITS/ML VIAL SQ SCH ×2 (09:02→21:20)
[2020-01-31] MEDS: JEVITY 1.2 1000 ML LIQUID GT PRN (15:31)
[2020-01-31 20:30] VITALS: BP 103/65
[2020-01-31] MEDS: BENZOYL PEROXIDE 10% GEL 60 GM TUBE TP SCH (20:44)
[2020-01-31] MEDS: OMEGA-3 FATTY ACIDS/FISH OIL CAPSULE GT SCH (20:44)
[2020-02-01] MEDS: LORATADINE 10 MG TABLET GT SCH (05:11)
[2020-02-01] MEDS: CHOLECALCIFEROL 1,000 UNIT TABLET GT SCH (05:11)
[2020-02-01] MEDS: OMEPRAZOLE 20 MG CAPSULE.DR GT SCH (05:11)
[2020-02-01] MEDS: HYDROGEN PEROXIDE 3% 118 ML BOTTLE TP SCH ×2 (07:15→21:13)
[2020-02-01 08:04] VITALS: BP 105/50
[2020-02-01] MEDS: [UNRECOGNIZED DRUG - OTHER] GT SCH ×2 (08:15→20:01)
[2020-02-01] MEDS: Z GUARD REMEDY PASTE 57 GM TUBE TOP SCH ×2 (08:15→20:03)
[2020-02-01] MEDS: [UNRECOGNIZED DRUG - OTHER] XX SCH ×2 (08:15→20:03)
[2020-02-01] MEDS: BACLOFEN 10 MG TABLET GT SCH ×2 (08:15→20:01)
[2020-02-01] MEDS: VITAMINS A AND D OINT TP SCH (08:15)
[2020-02-01] MEDS: HEPARIN SODIUM,PORCINE 5,000 UNITS/ML VIAL SQ SCH ×2 (08:18→20:17)
--- NOTE | 2020-02-01 09:00 | NUR ---
Received pt in bed, no acute distress. All due AM medications given as ordered. Skin/wound care rendered. Will continue to monitor accordingly.
--- NOTE | 2020-02-01 13:30 | NUR ---
Nursing report given to receiving RN for continuation of care, no further question from receiving staff.
[2020-02-01] MEDS: OMEGA-3 FATTY ACIDS/FISH OIL CAPSULE GT SCH (20:01)
[2020-02-01] MEDS: BENZOYL PEROXIDE 10% GEL 60 GM TUBE TP SCH (20:03)
[2020-02-01] MEDS: JEVITY 1.2 1000 ML LIQUID GT PRN (20:03)
[2020-02-01 20:41] VITALS: BP 103/62
[2020-02-02] MEDS: LORATADINE 10 MG TABLET GT SCH (05:33)
[2020-02-02] MEDS: CHOLECALCIFEROL 1,000 UNIT TABLET GT SCH (05:33)
[2020-02-02] MEDS: OMEPRAZOLE 20 MG CAPSULE.DR GT SCH (05:33)
[2020-02-02 08:04] VITALS: BP 120/49
[2020-02-02] MEDS: BACLOFEN 10 MG TABLET GT SCH ×2 (08:31→20:59)
[2020-02-02] MEDS: [UNRECOGNIZED DRUG - OTHER] GT SCH ×2 (08:31→20:59)
[2020-02-02] MEDS: Z GUARD REMEDY PASTE 57 GM TUBE TOP SCH ×2 (08:32→21:00)
[2020-02-02] MEDS: [UNRECOGNIZED DRUG - OTHER] XX SCH ×2 (08:32→21:00)
[2020-02-02] MEDS: VITAMINS A AND D OINT TP SCH (08:32)
[2020-02-02] MEDS: HEPARIN SODIUM,PORCINE 5,000 UNITS/ML VIAL SQ SCH ×2 (08:32→20:59)
[2020-02-02] MEDS: HYDROGEN PEROXIDE 3% 118 ML BOTTLE TP SCH ×2 (09:00→21:18)
[2020-02-02 20:43] VITALS: BP 119/71
[2020-02-02] MEDS: OMEGA-3 FATTY ACIDS/FISH OIL CAPSULE GT SCH (20:59)
[2020-02-02] MEDS: BENZOYL PEROXIDE 10% GEL 60 GM TUBE TP SCH (21:00)
[2020-02-03] MEDS: LORATADINE 10 MG TABLET GT SCH (05:18)
[2020-02-03] MEDS: OMEPRAZOLE 20 MG CAPSULE.DR GT SCH (05:19)
[2020-02-03] MEDS: CHOLECALCIFEROL 1,000 UNIT TABLET GT SCH (05:19)
[2020-02-03 08:00] VITALS: BP 120/63
[2020-02-03] MEDS: [UNRECOGNIZED DRUG - OTHER] GT SCH ×2 (08:50→20:08)
[2020-02-03] MEDS: BACLOFEN 10 MG TABLET GT SCH ×2 (08:50→20:08)
[2020-02-03] MEDS: VITAMINS A AND D OINT TP SCH (08:53)
[2020-02-03] MEDS: Z GUARD REMEDY PASTE 57 GM TUBE TOP SCH ×2 (08:53→20:08)
[2020-02-03] MEDS: HEPARIN SODIUM,PORCINE 5,000 UNITS/ML VIAL SQ SCH ×2 (08:53→21:44)
[2020-02-03] MEDS: [UNRECOGNIZED DRUG - OTHER] XX SCH ×2 (08:53→20:09)
[2020-02-03] MEDS: HYDROGEN PEROXIDE 3% 118 ML BOTTLE TP SCH ×2 (09:00→20:48)
[2020-02-03] MEDS: JEVITY 1.2 1000 ML LIQUID GT PRN (17:40)
[2020-02-03] MEDS: OMEGA-3 FATTY ACIDS/FISH OIL CAPSULE GT SCH (20:08)
[2020-02-03] MEDS: BENZOYL PEROXIDE 10% GEL 60 GM TUBE TP SCH (20:08)
[2020-02-03 20:49] VITALS: BP 106/63
[2020-02-04] MEDS: OMEPRAZOLE 20 MG CAPSULE.DR GT SCH (05:15)
[2020-02-04] MEDS: CHOLECALCIFEROL 1,000 UNIT TABLET GT SCH (05:15)
[2020-02-04] MEDS: LORATADINE 10 MG TABLET GT SCH (05:15)
[2020-02-04 08:02] VITALS: BP 115/56
[2020-02-04] MEDS: BACLOFEN 10 MG TABLET GT SCH ×2 (09:34→20:44)
[2020-02-04] MEDS: VITAMINS A AND D OINT TP SCH (09:36)
[2020-02-04] MEDS: [UNRECOGNIZED DRUG - OTHER] GT SCH ×2 (09:36→20:44)
[2020-02-04] MEDS: Z GUARD REMEDY PASTE 57 GM TUBE TOP SCH ×2 (09:36→20:45)
[2020-02-04] MEDS: HYDROGEN PEROXIDE 3% 118 ML BOTTLE TP SCH ×2 (09:36→21:06)
[2020-02-04] MEDS: [UNRECOGNIZED DRUG - OTHER] XX SCH ×2 (09:37→20:45)
[2020-02-04] MEDS: HEPARIN SODIUM,PORCINE 5,000 UNITS/ML VIAL SQ SCH ×2 (09:38→20:46)
[2020-02-04 20:35] VITALS: BP 117/70
[2020-02-04] MEDS: OMEGA-3 FATTY ACIDS/FISH OIL CAPSULE GT SCH (20:44)
[2020-02-04] MEDS: BENZOYL PEROXIDE 10% GEL 60 GM TUBE TP SCH (20:45)
[2020-02-05] MEDS: OMEPRAZOLE 20 MG CAPSULE.DR GT SCH (06:22)
[2020-02-05] MEDS: CHOLECALCIFEROL 1,000 UNIT TABLET GT SCH (06:22)
[2020-02-05] MEDS: LORATADINE 10 MG TABLET GT SCH (06:22)
[2020-02-05 08:03] VITALS: BP 121/57
[2020-02-05] MEDS: BACLOFEN 10 MG TABLET GT SCH ×2 (08:30→21:57)
[2020-02-05] MEDS: [UNRECOGNIZED DRUG - OTHER] XX SCH ×2 (08:31→21:57)
[2020-02-05] MEDS: VITAMINS A AND D OINT TP SCH (08:31)
[2020-02-05] MEDS: HEPARIN SODIUM,PORCINE 5,000 UNITS/ML VIAL SQ SCH ×2 (08:31→21:58)
[2020-02-05] MEDS: Z GUARD REMEDY PASTE 57 GM TUBE TOP SCH ×2 (08:31→21:57)
[2020-02-05] MEDS: [UNRECOGNIZED DRUG - OTHER] GT SCH ×2 (08:31→21:57)
[2020-02-05] MEDS: HYDROGEN PEROXIDE 3% 118 ML BOTTLE TP SCH ×2 (09:00→21:37)
[2020-02-05 21:10] VITALS: BP 123/60
[2020-02-05] MEDS: OMEGA-3 FATTY ACIDS/FISH OIL CAPSULE GT SCH (21:57)
[2020-02-05] MEDS: BENZOYL PEROXIDE 10% GEL 60 GM TUBE TP SCH (21:57)
[2020-02-06] MEDS: JEVITY 1.2 1000 ML LIQUID GT PRN (01:16)
[2020-02-06] MEDS: CHOLECALCIFEROL 1,000 UNIT TABLET GT SCH (06:14)
[2020-02-06] MEDS: LORATADINE 10 MG TABLET GT SCH (06:14)
[2020-02-06] MEDS: OMEPRAZOLE 20 MG CAPSULE.DR GT SCH (06:14)
[2020-02-06 08:03] VITALS: BP 112/50
[2020-02-06] MEDS: BACLOFEN 10 MG TABLET GT SCH ×2 (08:26→21:35)
[2020-02-06] MEDS: [UNRECOGNIZED DRUG - OTHER] GT SCH ×2 (08:26→21:35)
[2020-02-06] MEDS: VITAMINS A AND D OINT TP SCH (08:28)
[2020-02-06] MEDS: HEPARIN SODIUM,PORCINE 5,000 UNITS/ML VIAL SQ SCH ×2 (08:28→21:38)
[2020-02-06] MEDS: Z GUARD REMEDY PASTE 57 GM TUBE TOP SCH ×2 (08:28→21:35)
[2020-02-06] MEDS: [UNRECOGNIZED DRUG - OTHER] XX SCH ×2 (08:28→21:35)
[2020-02-06] MEDS: HYDROGEN PEROXIDE 3% 118 ML BOTTLE TP SCH ×2 (09:00→21:21)
--- NOTE | 2020-02-06 14:20 | NUR ---
INTERDISCIPLINARY PLAN OF CARE CONFERENCE was held today. Patient's mother was unable to participate in the meeting. Dr. Castro and the Interdisciplinary Team reviewed the current plan of care in detail. RN reported on patient's medical condition. See RN IDT conference notes. No major changes in condition were reported. See also all other disciplines IDT notes and physician's progress notes for additional details.
--- NOTE | 2020-02-06 14:23 | NUR ---
SW called patient's mother Lizzette [phone] to check in on her and her family, and to assess for any concerns to community needs. CHARU was unable to connect with Lizzette, and therefore CHARU left Lizzette a voicemail message asking Lizzette to call this SW back.
--- NOTE | 2020-02-06 15:28 | NUR ---
Pharmacy Update from Today's 02/06/20 IDT meeting VS: Temp 98.4 BP 123/60 HR 76 LABS: (from 11/06/19, no new labs) Wbc 6.2 H/H 13.9/41.1 Plt 144 Na 141 K 3.7 Cl 105 CO2 27 BUN/SCr 10/0.8 BS 168 Ca 8.7 MEDICATION USE REVIEWED: > Pt not on any anti-psych or anti-seizure medications > Pt on Heparin 5000 units q12hr; last plt 144. No signs of bleeding > Pt on Claritin 10mg daily :estimated CrCl is >120ml/min. Dose OK. > PRN MED USAGE: (December) Tylenol for pain used x 0 Tylenol for temp used x 0 Dulcolax used x 0 NEW ORDERS NOTED: > NA Patient was reviewed and discussed in depth at [facility], with no medication issues or concerns noted per staff at this time. No further recommendations at this time, will continue to monitor
[2020-02-06 20:58] VITALS: BP 105/67
[2020-02-06] MEDS: BENZOYL PEROXIDE 10% GEL 60 GM TUBE TP SCH (21:35)
[2020-02-06] MEDS: OMEGA-3 FATTY ACIDS/FISH OIL CAPSULE GT SCH (21:35)
[2020-02-07] MEDS: LORATADINE 10 MG TABLET GT SCH (05:56)
[2020-02-07] MEDS: CHOLECALCIFEROL 1,000 UNIT TABLET GT SCH (05:56)
[2020-02-07] MEDS: OMEPRAZOLE 20 MG CAPSULE.DR GT SCH (05:56)
[2020-02-07 08:03] VITALS: BP 101/46
[2020-02-07] MEDS: HEPARIN SODIUM,PORCINE 5,000 UNITS/ML VIAL SQ SCH ×2 (09:00→21:21)
[2020-02-07] MEDS: [UNRECOGNIZED DRUG - OTHER] XX SCH ×2 (09:00→21:21)
[2020-02-07] MEDS: VITAMINS A AND D OINT TP SCH (09:00)
[2020-02-07] MEDS: Z GUARD REMEDY PASTE 57 GM TUBE TOP SCH ×2 (09:00→21:20)
[2020-02-07] MEDS: HYDROGEN PEROXIDE 3% 118 ML BOTTLE TP SCH ×2 (09:00→20:48)
[2020-02-07] MEDS: [UNRECOGNIZED DRUG - OTHER] GT SCH ×2 (09:00→21:20)
[2020-02-07] MEDS: BACLOFEN 10 MG TABLET GT SCH ×2 (09:00→21:20)
[2020-02-07] MEDS: JEVITY 1.2 1000 ML LIQUID GT PRN (13:25)
[2020-02-07 20:11] VITALS: BP 114/62
[2020-02-07] MEDS: OMEGA-3 FATTY ACIDS/FISH OIL CAPSULE GT SCH (21:20)
[2020-02-07] MEDS: BENZOYL PEROXIDE 10% GEL 60 GM TUBE TP SCH (21:20)
[2020-02-08] MEDS: CHOLECALCIFEROL 1,000 UNIT TABLET GT SCH (05:22)
[2020-02-08] MEDS: LORATADINE 10 MG TABLET GT SCH (05:22)
[2020-02-08] MEDS: OMEPRAZOLE 20 MG CAPSULE.DR GT SCH (05:22)
--- NOTE | 2020-02-08 06:00 | NUR ---
PT SLEPT INTERMITTENTLY.. PT IN NO ACUTE DISTRESS. TURNED AND REPOSITIONED. PRESCRIBED MEDICATION GIVEN AND PT TOLERATED IT WELL. WILL ENDORSE TO INCOMING NURSE FOR CONTINUITY OF CARE.
[2020-02-08 07:30] VITALS: BP 120/53
[2020-02-08] MEDS: VITAMINS A AND D OINT TP SCH (08:40)
[2020-02-08] MEDS: Z GUARD REMEDY PASTE 57 GM TUBE TOP SCH ×2 (08:40→20:52)
[2020-02-08] MEDS: [UNRECOGNIZED DRUG - OTHER] GT SCH ×2 (08:40→20:52)
[2020-02-08] MEDS: HEPARIN SODIUM,PORCINE 5,000 UNITS/ML VIAL SQ SCH ×2 (08:40→20:53)
[2020-02-08] MEDS: BACLOFEN 10 MG TABLET GT SCH ×2 (08:40→20:52)
[2020-02-08] MEDS: [UNRECOGNIZED DRUG - OTHER] XX SCH ×2 (08:40→20:52)
[2020-02-08] MEDS: HYDROGEN PEROXIDE 3% 118 ML BOTTLE TP SCH ×2 (09:00→20:49)
[2020-02-08] MEDS: JEVITY 1.2 1000 ML LIQUID GT PRN (09:34)
[2020-02-08 20:17] VITALS: BP 125/68
[2020-02-08] MEDS: BENZOYL PEROXIDE 10% GEL 60 GM TUBE TP SCH (20:52)
[2020-02-08] MEDS: OMEGA-3 FATTY ACIDS/FISH OIL CAPSULE GT SCH (20:52)
[2020-02-09] MEDS: JEVITY 1.2 1000 ML LIQUID GT PRN ×2 (03:41→22:30)
[2020-02-09] MEDS: OMEPRAZOLE 20 MG CAPSULE.DR GT SCH (05:51)
[2020-02-09] MEDS: LORATADINE 10 MG TABLET GT SCH (05:51)
[2020-02-09] MEDS: CHOLECALCIFEROL 1,000 UNIT TABLET GT SCH (05:51)
[2020-02-09 08:04] VITALS: BP 115/65
[2020-02-09] MEDS: HYDROGEN PEROXIDE 3% 118 ML BOTTLE TP SCH ×2 (09:32→21:36)
[2020-02-09] MEDS: BACLOFEN 10 MG TABLET GT SCH ×2 (09:36→20:42)
[2020-02-09] MEDS: [UNRECOGNIZED DRUG - OTHER] XX SCH ×2 (09:37→20:43)
[2020-02-09] MEDS: [UNRECOGNIZED DRUG - OTHER] GT SCH ×2 (09:37→20:42)
[2020-02-09] MEDS: VITAMINS A AND D OINT TP SCH (09:37)
[2020-02-09] MEDS: Z GUARD REMEDY PASTE 57 GM TUBE TOP SCH ×2 (09:37→20:42)
[2020-02-09] MEDS: HEPARIN SODIUM,PORCINE 5,000 UNITS/ML VIAL SQ SCH ×2 (09:45→20:44)
[2020-02-09 20:06] VITALS: BP 106/64
[2020-02-09] MEDS: OMEGA-3 FATTY ACIDS/FISH OIL CAPSULE GT SCH (20:42)
[2020-02-09] MEDS: BENZOYL PEROXIDE 10% GEL 60 GM TUBE TP SCH (20:42)
[2020-02-10] MEDS: OMEPRAZOLE 20 MG CAPSULE.DR GT SCH (05:25)
[2020-02-10] MEDS: LORATADINE 10 MG TABLET GT SCH (05:25)
[2020-02-10] MEDS: CHOLECALCIFEROL 1,000 UNIT TABLET GT SCH (05:25)
[2020-02-10 08:03] VITALS: BP 120/71
[2020-02-10] MEDS: HYDROGEN PEROXIDE 3% 118 ML BOTTLE TP SCH ×2 (08:22→21:26)
[2020-02-10] MEDS: BACLOFEN 10 MG TABLET GT SCH ×2 (09:28→20:34)
[2020-02-10] MEDS: [UNRECOGNIZED DRUG - OTHER] GT SCH ×2 (09:28→20:34)
[2020-02-10] MEDS: [UNRECOGNIZED DRUG - OTHER] XX SCH ×2 (09:30→20:35)
[2020-02-10] MEDS: Z GUARD REMEDY PASTE 57 GM TUBE TOP SCH ×2 (09:30→20:34)
[2020-02-10] MEDS: VITAMINS A AND D OINT TP SCH (09:30)
[2020-02-10] MEDS: HEPARIN SODIUM,PORCINE 5,000 UNITS/ML VIAL SQ SCH ×2 (09:30→20:53)
[2020-02-10] MEDS: JEVITY 1.2 1000 ML LIQUID GT PRN (17:14)
[2020-02-10 20:13] VITALS: BP 116/73
[2020-02-10] MEDS: OMEGA-3 FATTY ACIDS/FISH OIL CAPSULE GT SCH (20:34)
[2020-02-10] MEDS: BENZOYL PEROXIDE 10% GEL 60 GM TUBE TP SCH (20:35)
[2020-02-11] MEDS: LORATADINE 10 MG TABLET GT SCH (05:34)
[2020-02-11] MEDS: CHOLECALCIFEROL 1,000 UNIT TABLET GT SCH (05:34)
[2020-02-11] MEDS: OMEPRAZOLE 20 MG CAPSULE.DR GT SCH (05:34)
[2020-02-11] MEDS: HYDROGEN PEROXIDE 3% 118 ML BOTTLE TP SCH ×2 (07:55→20:43)
[2020-02-11 08:00] VITALS: BP 110/32
[2020-02-11] MEDS: BACLOFEN 10 MG TABLET GT SCH ×2 (08:27→20:42)
[2020-02-11] MEDS: [UNRECOGNIZED DRUG - OTHER] GT SCH ×2 (08:27→20:42)
[2020-02-11] MEDS: HEPARIN SODIUM,PORCINE 5,000 UNITS/ML VIAL SQ SCH ×2 (08:29→20:44)
[2020-02-11] MEDS: [UNRECOGNIZED DRUG - OTHER] XX SCH ×2 (08:32→20:43)
[2020-02-11] MEDS: VITAMINS A AND D OINT TP SCH (08:32)
[2020-02-11] MEDS: Z GUARD REMEDY PASTE 57 GM TUBE TOP SCH ×2 (08:32→20:42)
[2020-02-11] MEDS: OMEGA-3 FATTY ACIDS/FISH OIL CAPSULE GT SCH (20:42)
[2020-02-11] MEDS: BENZOYL PEROXIDE 10% GEL 60 GM TUBE TP SCH (20:43)
[2020-02-11 22:41] VITALS: BP 110/72
[2020-02-12] MEDS: JEVITY 1.2 1000 ML LIQUID GT PRN (00:02)
[2020-02-12] MEDS: OMEPRAZOLE 20 MG CAPSULE.DR GT SCH (04:56)
[2020-02-12] MEDS: CHOLECALCIFEROL 1,000 UNIT TABLET GT SCH (04:56)
[2020-02-12] MEDS: LORATADINE 10 MG TABLET GT SCH (04:56)
[2020-02-12 08:00] VITALS: BP 103/52
[2020-02-12] MEDS: BACLOFEN 10 MG TABLET GT SCH ×2 (08:46→20:19)
[2020-02-12] MEDS: [UNRECOGNIZED DRUG - OTHER] GT SCH ×2 (08:46→20:19)
[2020-02-12] MEDS: HEPARIN SODIUM,PORCINE 5,000 UNITS/ML VIAL SQ SCH ×2 (08:47→22:00)
[2020-02-12] MEDS: [UNRECOGNIZED DRUG - OTHER] XX SCH ×2 (08:48→20:19)
[2020-02-12] MEDS: Z GUARD REMEDY PASTE 57 GM TUBE TOP SCH ×2 (08:48→20:19)
[2020-02-12] MEDS: VITAMINS A AND D OINT TP SCH (08:48)
[2020-02-12] MEDS: HYDROGEN PEROXIDE 3% 118 ML BOTTLE TP SCH ×2 (09:08→20:19)
[2020-02-12] MEDS: BENZOYL PEROXIDE 10% GEL 60 GM TUBE TP SCH (20:19)
[2020-02-12] MEDS: OMEGA-3 FATTY ACIDS/FISH OIL CAPSULE GT SCH (20:19)
[2020-02-12 20:44] VITALS: BP 100/58
[2020-02-13] MEDS: LORATADINE 10 MG TABLET GT SCH (05:55)
[2020-02-13] MEDS: CHOLECALCIFEROL 1,000 UNIT TABLET GT SCH (05:57)
[2020-02-13] MEDS: OMEPRAZOLE 20 MG CAPSULE.DR GT SCH (05:58)
[2020-02-13 08:00] VITALS: BP 119/73
[2020-02-13] MEDS: [UNRECOGNIZED DRUG - OTHER] GT SCH ×2 (09:09→21:15)
[2020-02-13] MEDS: Z GUARD REMEDY PASTE 57 GM TUBE TOP SCH ×2 (09:09→21:16)
[2020-02-13] MEDS: BACLOFEN 10 MG TABLET GT SCH ×2 (09:09→21:15)
[2020-02-13] MEDS: VITAMINS A AND D OINT TP SCH (09:09)
[2020-02-13] MEDS: HEPARIN SODIUM,PORCINE 5,000 UNITS/ML VIAL SQ SCH ×2 (09:17→21:16)
[2020-02-13] MEDS: [UNRECOGNIZED DRUG - OTHER] XX SCH ×2 (09:18→21:16)
[2020-02-13] MEDS: HYDROGEN PEROXIDE 3% 118 ML BOTTLE TP SCH ×2 (09:51→21:34)
[2020-02-13 20:49] VITALS: BP 96/54
[2020-02-13] MEDS: OMEGA-3 FATTY ACIDS/FISH OIL CAPSULE GT SCH (21:14)
[2020-02-13] MEDS: JEVITY 1.2 1000 ML LIQUID GT PRN (21:16)
[2020-02-13] MEDS: BENZOYL PEROXIDE 10% GEL 60 GM TUBE TP SCH (21:16)
[2020-02-14] MEDS: LORATADINE 10 MG TABLET GT SCH (06:08)
[2020-02-14] MEDS: CHOLECALCIFEROL 1,000 UNIT TABLET GT SCH (06:08)
[2020-02-14] MEDS: OMEPRAZOLE 20 MG CAPSULE.DR GT SCH (06:08)
[2020-02-14 08:00] VITALS: BP 114/66
[2020-02-14] MEDS: Z GUARD REMEDY PASTE 57 GM TUBE TOP SCH ×2 (08:21→21:30)
[2020-02-14] MEDS: VITAMINS A AND D OINT TP SCH (08:21)
[2020-02-14] MEDS: BACLOFEN 10 MG TABLET GT SCH ×2 (08:21→21:28)
[2020-02-14] MEDS: [UNRECOGNIZED DRUG - OTHER] GT SCH ×2 (08:21→21:28)
[2020-02-14] MEDS: [UNRECOGNIZED DRUG - OTHER] XX SCH ×2 (08:21→21:30)
[2020-02-14] MEDS: HEPARIN SODIUM,PORCINE 5,000 UNITS/ML VIAL SQ SCH ×2 (08:29→21:30)
[2020-02-14] MEDS: HYDROGEN PEROXIDE 3% 118 ML BOTTLE TP SCH ×2 (09:00→21:00)
[2020-02-14] MEDS: JEVITY 1.2 1000 ML LIQUID GT PRN (17:44)
[2020-02-14 20:00] VITALS: BP 117/75
[2020-02-14] MEDS: OMEGA-3 FATTY ACIDS/FISH OIL CAPSULE GT SCH (21:27)
[2020-02-14] MEDS: BENZOYL PEROXIDE 10% GEL 60 GM TUBE TP SCH (21:30)
[2020-02-15] MEDS: LORATADINE 10 MG TABLET GT SCH (06:17)
[2020-02-15] MEDS: CHOLECALCIFEROL 1,000 UNIT TABLET GT SCH (06:17)
[2020-02-15] MEDS: OMEPRAZOLE 20 MG CAPSULE.DR GT SCH (06:17)
[2020-02-15 07:55] VITALS: BP 99/59
--- NOTE | 2020-02-15 09:00 | NUR ---
SEEN BY KALA STRANGE AND WITH NNO.
[2020-02-15] MEDS: [UNRECOGNIZED DRUG - OTHER] XX SCH ×2 (09:10→21:00)
[2020-02-15] MEDS: Z GUARD REMEDY PASTE 57 GM TUBE TOP SCH ×2 (09:10→21:00)
[2020-02-15] MEDS: BACLOFEN 10 MG TABLET GT SCH ×2 (09:10→20:58)
[2020-02-15] MEDS: [UNRECOGNIZED DRUG - OTHER] GT SCH ×2 (09:10→20:58)
[2020-02-15] MEDS: VITAMINS A AND D OINT TP SCH (09:10)
[2020-02-15] MEDS: HEPARIN SODIUM,PORCINE 5,000 UNITS/ML VIAL SQ SCH ×2 (09:11→21:00)
[2020-02-15] MEDS: HYDROGEN PEROXIDE 3% 118 ML BOTTLE TP SCH ×2 (09:57→21:19)
[2020-02-15 20:00] VITALS: BP_SYST 105; BP_SYST 117; BP_DIAS 53; BP_DIAS 63
[2020-02-15] MEDS: OMEGA-3 FATTY ACIDS/FISH OIL CAPSULE GT SCH (20:58)
[2020-02-15] MEDS: BENZOYL PEROXIDE 10% GEL 60 GM TUBE TP SCH (21:00)
[2020-02-16] MEDS: LORATADINE 10 MG TABLET GT SCH (05:53)
[2020-02-16] MEDS: CHOLECALCIFEROL 1,000 UNIT TABLET GT SCH (05:53)
[2020-02-16] MEDS: OMEPRAZOLE 20 MG CAPSULE.DR GT SCH (05:53)
[2020-02-16 08:09] VITALS: BP 101/60
[2020-02-16] MEDS: VITAMINS A AND D OINT TP SCH (09:35)
[2020-02-16] MEDS: HEPARIN SODIUM,PORCINE 5,000 UNITS/ML VIAL SQ SCH ×2 (09:35→20:12)
[2020-02-16] MEDS: BACLOFEN 10 MG TABLET GT SCH ×2 (09:35→20:12)
[2020-02-16] MEDS: Z GUARD REMEDY PASTE 57 GM TUBE TOP SCH ×2 (09:35→20:12)
[2020-02-16] MEDS: [UNRECOGNIZED DRUG - OTHER] XX SCH ×2 (09:35→20:12)
[2020-02-16] MEDS: [UNRECOGNIZED DRUG - OTHER] GT SCH ×2 (09:35→20:12)
[2020-02-16] MEDS: JEVITY 1.2 1000 ML LIQUID GT PRN ×2 (09:55→21:51)
[2020-02-16] MEDS: HYDROGEN PEROXIDE 3% 118 ML BOTTLE TP SCH ×2 (09:56→20:42)
--- NOTE | 2020-02-16 15:00 | NUR ---
SEEN BY DR. SANTA AND WITH NNO.
[2020-02-16 20:00] VITALS: BP 101/66
[2020-02-16] MEDS: BENZOYL PEROXIDE 10% GEL 60 GM TUBE TP SCH (20:12)
[2020-02-16] MEDS: OMEGA-3 FATTY ACIDS/FISH OIL CAPSULE GT SCH (20:12)
[2020-02-17] MEDS: LORATADINE 10 MG TABLET GT SCH (05:41)
[2020-02-17] MEDS: OMEPRAZOLE 20 MG CAPSULE.DR GT SCH (05:41)
[2020-02-17] MEDS: CHOLECALCIFEROL 1,000 UNIT TABLET GT SCH (05:41)
[2020-02-17 08:02] VITALS: BP 129/76
[2020-02-17] MEDS: HYDROGEN PEROXIDE 3% 118 ML BOTTLE TP SCH ×2 (08:23→21:40)
[2020-02-17] MEDS: [UNRECOGNIZED DRUG - OTHER] GT SCH ×2 (09:36→20:24)
[2020-02-17] MEDS: BACLOFEN 10 MG TABLET GT SCH ×2 (09:36→20:24)
[2020-02-17] MEDS: VITAMINS A AND D OINT TP SCH (09:36)
[2020-02-17] MEDS: Z GUARD REMEDY PASTE 57 GM TUBE TOP SCH ×2 (09:36→20:24)
[2020-02-17] MEDS: HEPARIN SODIUM,PORCINE 5,000 UNITS/ML VIAL SQ SCH ×2 (09:38→20:25)
[2020-02-17] MEDS: [UNRECOGNIZED DRUG - OTHER] XX SCH ×2 (09:55→20:24)
[2020-02-17] MEDS: JEVITY 1.2 1000 ML LIQUID GT PRN (15:55)
[2020-02-17 20:15] VITALS: BP 117/65
[2020-02-17] MEDS: BENZOYL PEROXIDE 10% GEL 60 GM TUBE TP SCH (20:24)
[2020-02-17] MEDS: OMEGA-3 FATTY ACIDS/FISH OIL CAPSULE GT SCH (20:24)
[2020-02-18] MEDS: OMEPRAZOLE 20 MG CAPSULE.DR GT SCH (05:07)
[2020-02-18] MEDS: CHOLECALCIFEROL 1,000 UNIT TABLET GT SCH (05:07)
[2020-02-18] MEDS: LORATADINE 10 MG TABLET GT SCH (05:07)
[2020-02-18 08:02] VITALS: BP 128/51
[2020-02-18] MEDS: HYDROGEN PEROXIDE 3% 118 ML BOTTLE TP SCH ×2 (08:38→21:22)
[2020-02-18] MEDS: BACLOFEN 10 MG TABLET GT SCH ×2 (09:11→20:30)
[2020-02-18] MEDS: [UNRECOGNIZED DRUG - OTHER] GT SCH ×2 (09:11→20:30)
[2020-02-18] MEDS: HEPARIN SODIUM,PORCINE 5,000 UNITS/ML VIAL SQ SCH ×2 (09:12→20:31)
[2020-02-18] MEDS: Z GUARD REMEDY PASTE 57 GM TUBE TOP SCH ×2 (09:12→20:30)
[2020-02-18] MEDS: VITAMINS A AND D OINT TP SCH (09:12)
[2020-02-18] MEDS: [UNRECOGNIZED DRUG - OTHER] XX SCH ×2 (09:13→20:30)
[2020-02-18 20:10] VITALS: BP 110/69
[2020-02-18] MEDS: BENZOYL PEROXIDE 10% GEL 60 GM TUBE TP SCH (20:30)
[2020-02-18] MEDS: OMEGA-3 FATTY ACIDS/FISH OIL CAPSULE GT SCH (20:30)
[2020-02-19] MEDS: OMEPRAZOLE 20 MG CAPSULE.DR GT SCH (05:51)
[2020-02-19] MEDS: CHOLECALCIFEROL 1,000 UNIT TABLET GT SCH (05:51)
[2020-02-19] MEDS: LORATADINE 10 MG TABLET GT SCH (05:51)
[2020-02-19 07:45] VITALS: BP 109/65
[2020-02-19] MEDS: [UNRECOGNIZED DRUG - OTHER] GT SCH ×2 (08:03→20:27)
[2020-02-19] MEDS: BACLOFEN 10 MG TABLET GT SCH ×2 (08:03→20:27)
[2020-02-19] MEDS: HYDROGEN PEROXIDE 3% 118 ML BOTTLE TP SCH ×2 (08:05→20:27)
[2020-02-19] MEDS: [UNRECOGNIZED DRUG - OTHER] XX SCH ×2 (08:05→20:27)
[2020-02-19] MEDS: VITAMINS A AND D OINT TP SCH (08:05)
[2020-02-19] MEDS: Z GUARD REMEDY PASTE 57 GM TUBE TOP SCH ×2 (08:05→20:27)
[2020-02-19] MEDS: HEPARIN SODIUM,PORCINE 5,000 UNITS/ML VIAL SQ SCH ×2 (08:06→21:52)
--- NOTE | 2020-02-19 11:51 | NUR ---
SEEN BY DR. SANTA AND WITH NNO.
[2020-02-19 19:50] VITALS: BP 96/74
[2020-02-19] MEDS: OMEGA-3 FATTY ACIDS/FISH OIL CAPSULE GT SCH (20:26)
[2020-02-19] MEDS: BENZOYL PEROXIDE 10% GEL 60 GM TUBE TP SCH (20:27)
[2020-02-20] MEDS: CHOLECALCIFEROL 1,000 UNIT TABLET GT SCH (05:17)
[2020-02-20] MEDS: OMEPRAZOLE 20 MG CAPSULE.DR GT SCH (05:17)
[2020-02-20] MEDS: LORATADINE 10 MG TABLET GT SCH (05:17)
[2020-02-20 07:42] VITALS: BP 117/60
[2020-02-20] MEDS: VITAMINS A AND D OINT TP SCH (08:23)
[2020-02-20] MEDS: HEPARIN SODIUM,PORCINE 5,000 UNITS/ML VIAL SQ SCH ×2 (08:23→21:11)
[2020-02-20] MEDS: Z GUARD REMEDY PASTE 57 GM TUBE TOP SCH ×2 (08:23→21:11)
[2020-02-20] MEDS: BACLOFEN 10 MG TABLET GT SCH ×2 (08:23→21:07)
[2020-02-20] MEDS: [UNRECOGNIZED DRUG - OTHER] GT SCH ×2 (08:23→21:07)
[2020-02-20] MEDS: [UNRECOGNIZED DRUG - OTHER] XX SCH ×2 (08:23→21:11)
[2020-02-20] MEDS: HYDROGEN PEROXIDE 3% 118 ML BOTTLE TP SCH ×2 (09:54→20:47)
[2020-02-20 19:53] VITALS: BP 110/48
[2020-02-20] MEDS: OMEGA-3 FATTY ACIDS/FISH OIL CAPSULE GT SCH (21:07)
[2020-02-20] MEDS: BENZOYL PEROXIDE 10% GEL 60 GM TUBE TP SCH (21:11)
[2020-02-21] MEDS: JEVITY 1.2 1000 ML LIQUID GT PRN (05:00)
[2020-02-21] MEDS: CHOLECALCIFEROL 1,000 UNIT TABLET GT SCH (06:09)
[2020-02-21] MEDS: OMEPRAZOLE 20 MG CAPSULE.DR GT SCH (06:09)
[2020-02-21] MEDS: LORATADINE 10 MG TABLET GT SCH (06:09)
[2020-02-21] MEDS: HYDROGEN PEROXIDE 3% 118 ML BOTTLE TP SCH ×2 (07:15→21:36)
[2020-02-21 07:45] VITALS: BP 117/60
[2020-02-21] MEDS: HEPARIN SODIUM,PORCINE 5,000 UNITS/ML VIAL SQ SCH ×2 (08:34→20:29)
[2020-02-21] MEDS: Z GUARD REMEDY PASTE 57 GM TUBE TOP SCH ×2 (08:34→20:29)
[2020-02-21] MEDS: [UNRECOGNIZED DRUG - OTHER] GT SCH ×2 (08:34→20:26)
[2020-02-21] MEDS: [UNRECOGNIZED DRUG - OTHER] XX SCH ×2 (08:34→20:29)
[2020-02-21] MEDS: BACLOFEN 10 MG TABLET GT SCH ×2 (08:34→20:26)
[2020-02-21] MEDS: VITAMINS A AND D OINT TP SCH (08:34)
[2020-02-21 20:00] VITALS: BP_SYST 104; BP_SYST 124; BP_DIAS 64; BP_DIAS 75
[2020-02-21] MEDS: OMEGA-3 FATTY ACIDS/FISH OIL CAPSULE GT SCH (20:26)
[2020-02-21] MEDS: BENZOYL PEROXIDE 10% GEL 60 GM TUBE TP SCH (20:29)
[2020-02-22] MEDS: JEVITY 1.2 1000 ML LIQUID GT PRN (01:15)
[2020-02-22] MEDS: OMEPRAZOLE 20 MG CAPSULE.DR GT SCH (06:19)
[2020-02-22] MEDS: LORATADINE 10 MG TABLET GT SCH (06:19)
[2020-02-22] MEDS: CHOLECALCIFEROL 1,000 UNIT TABLET GT SCH (06:20)
[2020-02-22 07:40] VITALS: BP 120/57
[2020-02-22] MEDS: HYDROGEN PEROXIDE 3% 118 ML BOTTLE TP SCH ×2 (09:00→21:04)
[2020-02-22] MEDS: [UNRECOGNIZED DRUG - OTHER] GT SCH ×2 (09:10→20:58)
[2020-02-22] MEDS: BACLOFEN 10 MG TABLET GT SCH ×2 (09:10→20:58)
[2020-02-22] MEDS: HEPARIN SODIUM,PORCINE 5,000 UNITS/ML VIAL SQ SCH ×2 (09:11→20:59)
[2020-02-22] MEDS: [UNRECOGNIZED DRUG - OTHER] XX SCH ×2 (09:12→21:00)
[2020-02-22] MEDS: VITAMINS A AND D OINT TP SCH (09:12)
[2020-02-22] MEDS: Z GUARD REMEDY PASTE 57 GM TUBE TOP SCH ×2 (09:12→21:00)
[2020-02-22 20:10] VITALS: BP 121/73
[2020-02-22] MEDS: OMEGA-3 FATTY ACIDS/FISH OIL CAPSULE GT SCH (20:58)
[2020-02-22] MEDS: BENZOYL PEROXIDE 10% GEL 60 GM TUBE TP SCH (21:00)
[2020-02-23] MEDS: JEVITY 1.2 1000 ML LIQUID GT PRN (02:00)
[2020-02-23] MEDS: OMEPRAZOLE 20 MG CAPSULE.DR GT SCH (05:13)
[2020-02-23] MEDS: LORATADINE 10 MG TABLET GT SCH (05:13)
[2020-02-23] MEDS: CHOLECALCIFEROL 1,000 UNIT TABLET GT SCH (05:13)
[2020-02-23 07:41] VITALS: BP 118/77
[2020-02-23] MEDS: HYDROGEN PEROXIDE 3% 118 ML BOTTLE TP SCH ×2 (08:24→21:23)
[2020-02-23] MEDS: BACLOFEN 10 MG TABLET GT SCH ×2 (09:39→21:50)
[2020-02-23] MEDS: [UNRECOGNIZED DRUG - OTHER] GT SCH ×2 (09:39→21:50)
[2020-02-23] MEDS: VITAMINS A AND D OINT TP SCH (09:40)
[2020-02-23] MEDS: [UNRECOGNIZED DRUG - OTHER] XX SCH ×2 (09:40→21:50)
[2020-02-23] MEDS: Z GUARD REMEDY PASTE 57 GM TUBE TOP SCH ×2 (09:40→21:50)
[2020-02-23] MEDS: HEPARIN SODIUM,PORCINE 5,000 UNITS/ML VIAL SQ SCH ×2 (09:42→21:00)
[2020-02-23 20:04] VITALS: BP 123/74
[2020-02-23] MEDS: BENZOYL PEROXIDE 10% GEL 60 GM TUBE TP SCH (21:50)
[2020-02-23] MEDS: OMEGA-3 FATTY ACIDS/FISH OIL CAPSULE GT SCH (21:50)
[2020-02-24] MEDS: JEVITY 1.2 1000 ML LIQUID GT PRN ×2 (02:49→17:38)
[2020-02-24] MEDS: LORATADINE 10 MG TABLET GT SCH (06:01)
[2020-02-24] MEDS: OMEPRAZOLE 20 MG CAPSULE.DR GT SCH (06:02)
[2020-02-24] MEDS: CHOLECALCIFEROL 1,000 UNIT TABLET GT SCH (06:02)
[2020-02-24 07:51] VITALS: BP 118/84
[2020-02-24] MEDS: [UNRECOGNIZED DRUG - OTHER] XX SCH ×2 (08:24→21:09)
[2020-02-24] MEDS: VITAMINS A AND D OINT TP SCH (08:24)
[2020-02-24] MEDS: BACLOFEN 10 MG TABLET GT SCH ×2 (08:24→21:09)
[2020-02-24] MEDS: [UNRECOGNIZED DRUG - OTHER] GT SCH ×2 (08:24→21:09)
[2020-02-24] MEDS: Z GUARD REMEDY PASTE 57 GM TUBE TOP SCH ×2 (08:24→21:09)
[2020-02-24] MEDS: HEPARIN SODIUM,PORCINE 5,000 UNITS/ML VIAL SQ SCH ×2 (08:25→21:00)
[2020-02-24] MEDS: HYDROGEN PEROXIDE 3% 118 ML BOTTLE TP SCH ×2 (08:44→20:40)
[2020-02-24 20:07] VITALS: BP 111/66
[2020-02-24] MEDS: BENZOYL PEROXIDE 10% GEL 60 GM TUBE TP SCH (21:09)
[2020-02-24] MEDS: OMEGA-3 FATTY ACIDS/FISH OIL CAPSULE GT SCH (21:09)
[2020-02-25] MEDS: CHOLECALCIFEROL 1,000 UNIT TABLET GT SCH (05:21)
[2020-02-25] MEDS: OMEPRAZOLE 20 MG CAPSULE.DR GT SCH (05:21)
[2020-02-25] MEDS: LORATADINE 10 MG TABLET GT SCH (05:21)
[2020-02-25] MEDS: HYDROGEN PEROXIDE 3% 118 ML BOTTLE TP SCH ×2 (07:15→21:39)
[2020-02-25 08:07] VITALS: BP 116/48
[2020-02-25] MEDS: BACLOFEN 10 MG TABLET GT SCH ×2 (08:18→20:03)
[2020-02-25] MEDS: Z GUARD REMEDY PASTE 57 GM TUBE TOP SCH ×2 (08:18→20:03)
[2020-02-25] MEDS: [UNRECOGNIZED DRUG - OTHER] GT SCH ×2 (08:18→20:03)
[2020-02-25] MEDS: VITAMINS A AND D OINT TP SCH (08:18)
[2020-02-25] MEDS: [UNRECOGNIZED DRUG - OTHER] XX SCH ×2 (08:18→20:03)
[2020-02-25] MEDS: HEPARIN SODIUM,PORCINE 5,000 UNITS/ML VIAL SQ SCH ×2 (08:19→21:00)
[2020-02-25] MEDS: JEVITY 1.2 1000 ML LIQUID GT PRN (13:30)
[2020-02-25] MEDS: OMEGA-3 FATTY ACIDS/FISH OIL CAPSULE GT SCH (20:03)
[2020-02-25] MEDS: BENZOYL PEROXIDE 10% GEL 60 GM TUBE TP SCH (20:03)
[2020-02-25 20:12] VITALS: BP 104/67
[2020-02-26] MEDS: OMEPRAZOLE 20 MG CAPSULE.DR GT SCH (05:31)
[2020-02-26] MEDS: CHOLECALCIFEROL 1,000 UNIT TABLET GT SCH (05:31)
[2020-02-26] MEDS: LORATADINE 10 MG TABLET GT SCH (05:31)
[2020-02-26 07:31] VITALS: BP 105/64
[2020-02-26] MEDS: [UNRECOGNIZED DRUG - OTHER] XX SCH ×2 (08:00→21:47)
[2020-02-26] MEDS: VITAMINS A AND D OINT TP SCH (08:00)
[2020-02-26] MEDS: [UNRECOGNIZED DRUG - OTHER] GT SCH ×2 (08:00→21:46)
[2020-02-26] MEDS: Z GUARD REMEDY PASTE 57 GM TUBE TOP SCH ×2 (08:00→21:46)
[2020-02-26] MEDS: BACLOFEN 10 MG TABLET GT SCH ×2 (08:01→21:46)
[2020-02-26] MEDS: HEPARIN SODIUM,PORCINE 5,000 UNITS/ML VIAL SQ SCH ×2 (08:03→21:50)
[2020-02-26] MEDS: HYDROGEN PEROXIDE 3% 118 ML BOTTLE TP SCH ×2 (09:10→21:02)
--- NOTE | 2020-02-26 09:30 | NUR ---
Seen by Adeola Pendleton with no new order.
[2020-02-26] MEDS: JEVITY 1.2 1000 ML LIQUID GT PRN (11:53)
[2020-02-26 20:22] VITALS: BP 115/71
[2020-02-26] MEDS: BENZOYL PEROXIDE 10% GEL 60 GM TUBE TP SCH (21:46)
[2020-02-26] MEDS: OMEGA-3 FATTY ACIDS/FISH OIL CAPSULE GT SCH (21:46)
[2020-02-27] MEDS: JEVITY 1.2 1000 ML LIQUID GT PRN (04:00)
[2020-02-27] MEDS: CHOLECALCIFEROL 1,000 UNIT TABLET GT SCH (05:45)
[2020-02-27] MEDS: OMEPRAZOLE 20 MG CAPSULE.DR GT SCH (05:45)
[2020-02-27] MEDS: LORATADINE 10 MG TABLET GT SCH (05:45)
[2020-02-27] MEDS: BACLOFEN 10 MG TABLET GT SCH ×2 (08:07→21:58)
[2020-02-27] MEDS: [UNRECOGNIZED DRUG - OTHER] GT SCH ×2 (08:07→21:58)
[2020-02-27 08:08] VITALS: BP 106/61
[2020-02-27] MEDS: Z GUARD REMEDY PASTE 57 GM TUBE TOP SCH ×2 (08:08→21:58)
[2020-02-27] MEDS: [UNRECOGNIZED DRUG - OTHER] XX SCH ×2 (08:08→21:58)
[2020-02-27] MEDS: VITAMINS A AND D OINT TP SCH (08:08)
[2020-02-27] MEDS: HEPARIN SODIUM,PORCINE 5,000 UNITS/ML VIAL SQ SCH ×2 (08:08→21:59)
[2020-02-27] MEDS: HYDROGEN PEROXIDE 3% 118 ML BOTTLE TP SCH ×2 (09:25→20:52)
[2020-02-27 20:00] VITALS: BP 103/56
[2020-02-27] MEDS: BENZOYL PEROXIDE 10% GEL 60 GM TUBE TP SCH (21:58)
[2020-02-27] MEDS: OMEGA-3 FATTY ACIDS/FISH OIL CAPSULE GT SCH (21:58)
[2020-02-28] MEDS: JEVITY 1.2 1000 ML LIQUID GT PRN ×2 (03:52→19:00)
[2020-02-28] MEDS: LORATADINE 10 MG TABLET GT SCH (05:30)
[2020-02-28] MEDS: OMEPRAZOLE 20 MG CAPSULE.DR GT SCH (05:30)
[2020-02-28] MEDS: CHOLECALCIFEROL 1,000 UNIT TABLET GT SCH (05:30)
[2020-02-28 07:35] VITALS: BP 107/60
[2020-02-28] MEDS: HYDROGEN PEROXIDE 3% 118 ML BOTTLE TP SCH ×2 (07:52→20:45)
[2020-02-28] MEDS: BACLOFEN 10 MG TABLET GT SCH ×2 (08:58→20:33)
[2020-02-28] MEDS: [UNRECOGNIZED DRUG - OTHER] GT SCH ×2 (08:58→20:33)
[2020-02-28] MEDS: Z GUARD REMEDY PASTE 57 GM TUBE TOP SCH ×2 (09:01→20:35)
[2020-02-28] MEDS: HEPARIN SODIUM,PORCINE 5,000 UNITS/ML VIAL SQ SCH ×2 (09:01→20:34)
[2020-02-28] MEDS: [UNRECOGNIZED DRUG - OTHER] XX SCH ×2 (09:02→20:35)
[2020-02-28] MEDS: VITAMINS A AND D OINT TP SCH (09:02)
--- NOTE | 2020-02-28 13:44 | NUR ---
1:15pm: CHARU called patient's mother Lizzette [phone] to check in. Lizzette was not available, and CHARU left Lizzette a voicemail message asking her to call CHARU back.
[2020-02-28 20:00] VITALS: BP 101/74
[2020-02-28] MEDS: OMEGA-3 FATTY ACIDS/FISH OIL CAPSULE GT SCH (20:32)
[2020-02-28] MEDS: BENZOYL PEROXIDE 10% GEL 60 GM TUBE TP SCH (20:35)
[2020-02-29] MEDS: OMEPRAZOLE 20 MG CAPSULE.DR GT SCH (05:34)
[2020-02-29] MEDS: LORATADINE 10 MG TABLET GT SCH (05:34)
[2020-02-29] MEDS: CHOLECALCIFEROL 1,000 UNIT TABLET GT SCH (05:34)
[2020-02-29 07:29] VITALS: BP 110/63
[2020-02-29] MEDS: BACLOFEN 10 MG TABLET GT SCH ×2 (08:36→21:42)
[2020-02-29] MEDS: HEPARIN SODIUM,PORCINE 5,000 UNITS/ML VIAL SQ SCH ×2 (08:37→21:00)
[2020-02-29] MEDS: Z GUARD REMEDY PASTE 57 GM TUBE TOP SCH ×2 (08:37→21:42)
[2020-02-29] MEDS: [UNRECOGNIZED DRUG - OTHER] GT SCH ×2 (08:37→21:42)
[2020-02-29] MEDS: VITAMINS A AND D OINT TP SCH (09:00)
[2020-02-29] MEDS: [UNRECOGNIZED DRUG - OTHER] XX SCH ×2 (09:00→21:42)
[2020-02-29] MEDS: HYDROGEN PEROXIDE 3% 118 ML BOTTLE TP SCH ×2 (09:00→21:04)
--- NOTE | 2020-02-29 09:09 | NUR ---
PT. WAS SEEN AND EXAMINED BY DR. SANTA AND WITH NNO.
[2020-02-29 20:00] VITALS: BP 97/68
[2020-02-29] MEDS: OMEGA-3 FATTY ACIDS/FISH OIL CAPSULE GT SCH (21:42)
[2020-02-29] MEDS: BENZOYL PEROXIDE 10% GEL 60 GM TUBE TP SCH (21:42)
[2020-03-01] MEDS: LORATADINE 10 MG TABLET GT SCH (05:20)
[2020-03-01] MEDS: CHOLECALCIFEROL 1,000 UNIT TABLET GT SCH (05:20)
[2020-03-01] MEDS: OMEPRAZOLE 20 MG CAPSULE.DR GT SCH (05:20)
[2020-03-01 07:30] VITALS: BP 110/67
[2020-03-01] MEDS: HYDROGEN PEROXIDE 3% 118 ML BOTTLE TP SCH ×2 (08:07→21:04)
[2020-03-01] MEDS: [UNRECOGNIZED DRUG - OTHER] GT SCH ×2 (08:59→21:09)
[2020-03-01] MEDS: BACLOFEN 10 MG TABLET GT SCH ×2 (08:59→21:09)
[2020-03-01] MEDS: Z GUARD REMEDY PASTE 57 GM TUBE TOP SCH ×2 (08:59→21:10)
[2020-03-01] MEDS: VITAMINS A AND D OINT TP SCH (09:01)
[2020-03-01] MEDS: [UNRECOGNIZED DRUG - OTHER] XX SCH ×2 (09:01→21:10)
[2020-03-01] MEDS: HEPARIN SODIUM,PORCINE 5,000 UNITS/ML VIAL SQ SCH ×2 (09:03→21:10)
[2020-03-01] MEDS: JEVITY 1.2 1000 ML LIQUID GT PRN (10:13)
[2020-03-01 20:00] VITALS: BP 101/67
[2020-03-01] MEDS: OMEGA-3 FATTY ACIDS/FISH OIL CAPSULE GT SCH (21:09)
[2020-03-01] MEDS: BENZOYL PEROXIDE 10% GEL 60 GM TUBE TP SCH (21:10)
[2020-03-02] MEDS: CHOLECALCIFEROL 1,000 UNIT TABLET GT SCH (05:16)
[2020-03-02] MEDS: OMEPRAZOLE 20 MG CAPSULE.DR GT SCH (05:16)
[2020-03-02] MEDS: LORATADINE 10 MG TABLET GT SCH (05:16)
[2020-03-02 07:39] VITALS: BP 120/68
[2020-03-02] MEDS: BACLOFEN 10 MG TABLET GT SCH ×2 (08:08→21:29)
[2020-03-02] MEDS: [UNRECOGNIZED DRUG - OTHER] GT SCH ×2 (08:08→21:29)
[2020-03-02] MEDS: HEPARIN SODIUM,PORCINE 5,000 UNITS/ML VIAL SQ SCH ×2 (08:10→21:30)
[2020-03-02] MEDS: Z GUARD REMEDY PASTE 57 GM TUBE TOP SCH ×2 (08:10→21:30)
[2020-03-02] MEDS: [UNRECOGNIZED DRUG - OTHER] XX SCH ×2 (08:10→21:30)
[2020-03-02] MEDS: VITAMINS A AND D OINT TP SCH (08:10)
[2020-03-02] MEDS: HYDROGEN PEROXIDE 3% 118 ML BOTTLE TP SCH ×2 (08:33→21:00)
[2020-03-02] MEDS: JEVITY 1.2 1000 ML LIQUID GT PRN (09:50)
[2020-03-02 20:00] VITALS: BP 116/71
[2020-03-02] MEDS: OMEGA-3 FATTY ACIDS/FISH OIL CAPSULE GT SCH (21:29)
[2020-03-02] MEDS: BENZOYL PEROXIDE 10% GEL 60 GM TUBE TP SCH (21:30)
[2020-03-03] MEDS: JEVITY 1.2 1000 ML LIQUID GT PRN ×2 (01:37→23:10)
[2020-03-03] MEDS: CHOLECALCIFEROL 1,000 UNIT TABLET GT SCH (05:58)
[2020-03-03] MEDS: OMEPRAZOLE 20 MG CAPSULE.DR GT SCH (05:58)
[2020-03-03] MEDS: LORATADINE 10 MG TABLET GT SCH (05:58)
[2020-03-03] MEDS: HYDROGEN PEROXIDE 3% 118 ML BOTTLE TP SCH ×2 (07:15→21:07)
[2020-03-03 07:28] VITALS: BP 103/62
[2020-03-03] MEDS: BACLOFEN 10 MG TABLET GT SCH ×2 (08:21→21:23)
[2020-03-03] MEDS: [UNRECOGNIZED DRUG - OTHER] GT SCH ×2 (08:21→21:23)
[2020-03-03] MEDS: VITAMINS A AND D OINT TP SCH (08:22)
[2020-03-03] MEDS: Z GUARD REMEDY PASTE 57 GM TUBE TOP SCH ×2 (08:22→21:23)
[2020-03-03] MEDS: HEPARIN SODIUM,PORCINE 5,000 UNITS/ML VIAL SQ SCH ×2 (08:26→21:00)
[2020-03-03] MEDS: [UNRECOGNIZED DRUG - OTHER] XX SCH ×2 (09:18→21:23)
[2020-03-03 20:18] VITALS: BP 105/64
[2020-03-03] MEDS: OMEGA-3 FATTY ACIDS/FISH OIL CAPSULE GT SCH (21:23)
[2020-03-03] MEDS: BENZOYL PEROXIDE 10% GEL 60 GM TUBE TP SCH (21:23)
[2020-03-04] MEDS: OMEPRAZOLE 20 MG CAPSULE.DR GT SCH (06:14)
[2020-03-04] MEDS: CHOLECALCIFEROL 1,000 UNIT TABLET GT SCH (06:14)
[2020-03-04] MEDS: LORATADINE 10 MG TABLET GT SCH (06:14)
[2020-03-04 07:46] VITALS: BP 117/50
[2020-03-04] MEDS: [UNRECOGNIZED DRUG - OTHER] GT SCH ×2 (08:32→21:31)
[2020-03-04] MEDS: BACLOFEN 10 MG TABLET GT SCH ×2 (08:32→21:31)
[2020-03-04] MEDS: HEPARIN SODIUM,PORCINE 5,000 UNITS/ML VIAL SQ SCH ×2 (08:36→21:00)
[2020-03-04] MEDS: [UNRECOGNIZED DRUG - OTHER] XX SCH ×2 (08:38→21:32)
[2020-03-04] MEDS: VITAMINS A AND D OINT TP SCH (08:38)
[2020-03-04] MEDS: Z GUARD REMEDY PASTE 57 GM TUBE TOP SCH ×2 (08:38→21:32)
[2020-03-04] MEDS: HYDROGEN PEROXIDE 3% 118 ML BOTTLE TP SCH ×2 (09:04→21:24)
--- NOTE | 2020-03-04 09:48 | NUR ---
SEEN AND EXAMINED Amaya STRANGE N.P. AND MYRAO.
--- NOTE | 2020-03-04 15:56 | NUR ---
CHARU sent patient's mother Lizzette an email informing him that effective March 05, video chats with the patient will be done through ZOOM.
[2020-03-04] MEDS: JEVITY 1.2 1000 ML LIQUID GT PRN (18:15)
[2020-03-04 20:19] VITALS: BP 118/53
[2020-03-04] MEDS: OMEGA-3 FATTY ACIDS/FISH OIL CAPSULE GT SCH (21:31)
[2020-03-04] MEDS: BENZOYL PEROXIDE 10% GEL 60 GM TUBE TP SCH (21:32)
[2020-03-05] MEDS: OMEPRAZOLE 20 MG CAPSULE.DR GT SCH (06:36)
[2020-03-05] MEDS: CHOLECALCIFEROL 1,000 UNIT TABLET GT SCH (06:36)
[2020-03-05] MEDS: LORATADINE 10 MG TABLET GT SCH (06:36)
[2020-03-05 07:30] VITALS: BP 119/66
[2020-03-05] MEDS: HEPARIN SODIUM,PORCINE 5,000 UNITS/ML VIAL SQ SCH ×2 (08:22→21:03)
[2020-03-05] MEDS: BACLOFEN 10 MG TABLET GT SCH ×2 (08:22→20:59)
[2020-03-05] MEDS: [UNRECOGNIZED DRUG - OTHER] GT SCH ×2 (08:22→20:59)
[2020-03-05] MEDS: Z GUARD REMEDY PASTE 57 GM TUBE TOP SCH ×2 (08:22→21:03)
[2020-03-05] MEDS: VITAMINS A AND D OINT TP SCH (08:22)
[2020-03-05] MEDS: [UNRECOGNIZED DRUG - OTHER] XX SCH ×2 (08:23→21:03)
[2020-03-05] MEDS: HYDROGEN PEROXIDE 3% 118 ML BOTTLE TP SCH ×2 (09:40→19:03)
--- NOTE | 2020-03-05 12:52 | NUR ---
INTERDISCIPLINARY PLAN OF CARE CONFERENCE was held today. Patient's mother was not available to participate in the meeting. Dr. Castro and the Interdisciplinary Team reviewed the current plan of care in detail. RN reported on patient's current medical condition and findings of most recent lab. No major changes in condition were reported at this time. See RN IDT conference notes. See all also other disciplines IDT notes and physician's progress notes for additional details.
--- NOTE | 2020-03-05 13:13 | NUR ---
Pharmacy Update from Today's 03/05/20 IDT meeting VS: Temp 97.7 BP 119/66 HR 68 LABS: (from 11/06/19, no new labs) Wbc 6.2 H/H 13.9/41.1 Plt 144 Na 141 K 3.7 Cl 105 CO2 27 BUN/SCr 10/0.8 BS 168 Ca 8.7 MEDICATION USE REVIEWED: > Pt not on any anti-psych or anti-seizure medications > Pt on Heparin 5000 units q12hr; last plt 144. No signs of bleeding > Pt on Claritin 10mg daily :estimated CrCl is >100ml/min. Dose OK. > PRN MED USAGE: (January) Tylenol for pain used x 0 Tylenol for temp used x 0 Dulcolax used x 1 NEW ORDERS NOTED: > NA Patient was reviewed and discussed in depth at NVT, with no medication issues or concerns noted per staff at this time. No further Rx recommendations at this time, will continue to monitor
[2020-03-05 20:54] VITALS: BP 135/81
[2020-03-05] MEDS: OMEGA-3 FATTY ACIDS/FISH OIL CAPSULE GT SCH (20:56)
[2020-03-05] MEDS: BENZOYL PEROXIDE 10% GEL 60 GM TUBE TP SCH (21:03)
[2020-03-06] MEDS: OMEPRAZOLE 20 MG CAPSULE.DR GT SCH (06:03)
[2020-03-06] MEDS: LORATADINE 10 MG TABLET GT SCH (06:03)
[2020-03-06] MEDS: CHOLECALCIFEROL 1,000 UNIT TABLET GT SCH (06:03)
[2020-03-06 07:44] VITALS: BP 101/55
[2020-03-06] MEDS: BACLOFEN 10 MG TABLET GT SCH ×2 (08:52→20:56)
[2020-03-06] MEDS: [UNRECOGNIZED DRUG - OTHER] GT SCH ×2 (08:52→20:56)
[2020-03-06] MEDS: HEPARIN SODIUM,PORCINE 5,000 UNITS/ML VIAL SQ SCH ×2 (08:53→20:57)
[2020-03-06] MEDS: [UNRECOGNIZED DRUG - OTHER] XX SCH ×2 (08:56→20:58)
[2020-03-06] MEDS: VITAMINS A AND D OINT TP SCH (08:56)
[2020-03-06] MEDS: Z GUARD REMEDY PASTE 57 GM TUBE TOP SCH ×2 (08:56→20:57)
[2020-03-06] MEDS: HYDROGEN PEROXIDE 3% 118 ML BOTTLE TP SCH ×2 (09:20→21:42)
[2020-03-06] MEDS: OMEGA-3 FATTY ACIDS/FISH OIL CAPSULE GT SCH (20:56)
[2020-03-06] MEDS: BENZOYL PEROXIDE 10% GEL 60 GM TUBE TP SCH (20:57)
[2020-03-06 23:23] VITALS: BP 120/82
[2020-03-07] MEDS: OMEPRAZOLE 20 MG CAPSULE.DR GT SCH (05:41)
[2020-03-07] MEDS: CHOLECALCIFEROL 1,000 UNIT TABLET GT SCH (05:41)
[2020-03-07] MEDS: LORATADINE 10 MG TABLET GT SCH (05:41)
[2020-03-07 07:40] VITALS: BP 133/64
[2020-03-07] MEDS: BACLOFEN 10 MG TABLET GT SCH ×2 (08:01→20:51)
[2020-03-07] MEDS: [UNRECOGNIZED DRUG - OTHER] GT SCH ×2 (08:01→20:51)
[2020-03-07] MEDS: Z GUARD REMEDY PASTE 57 GM TUBE TOP SCH ×2 (08:02→20:52)
[2020-03-07] MEDS: HEPARIN SODIUM,PORCINE 5,000 UNITS/ML VIAL SQ SCH ×2 (08:02→20:52)
[2020-03-07] MEDS: VITAMINS A AND D OINT TP SCH (08:02)
[2020-03-07] MEDS: [UNRECOGNIZED DRUG - OTHER] XX SCH ×2 (09:00→20:52)
[2020-03-07] MEDS: HYDROGEN PEROXIDE 3% 118 ML BOTTLE TP SCH ×2 (09:00→21:16)
[2020-03-07] MEDS: JEVITY 1.2 1000 ML LIQUID GT PRN (14:28)
[2020-03-07 20:19] VITALS: BP 108/69
[2020-03-07] MEDS: OMEGA-3 FATTY ACIDS/FISH OIL CAPSULE GT SCH (20:51)
[2020-03-07] MEDS: BENZOYL PEROXIDE 10% GEL 60 GM TUBE TP SCH (20:52)
[2020-03-08] MEDS: CHOLECALCIFEROL 1,000 UNIT TABLET GT SCH (05:39)
[2020-03-08] MEDS: OMEPRAZOLE 20 MG CAPSULE.DR GT SCH (05:39)
[2020-03-08] MEDS: LORATADINE 10 MG TABLET GT SCH (05:39)
[2020-03-08 07:34] VITALS: BP 108/65
[2020-03-08] MEDS: BACLOFEN 10 MG TABLET GT SCH ×2 (08:03→20:23)
[2020-03-08] MEDS: [UNRECOGNIZED DRUG - OTHER] GT SCH ×2 (08:03→20:23)
[2020-03-08] MEDS: Z GUARD REMEDY PASTE 57 GM TUBE TOP SCH ×2 (08:04→20:24)
[2020-03-08] MEDS: VITAMINS A AND D OINT TP SCH (08:04)
[2020-03-08] MEDS: [UNRECOGNIZED DRUG - OTHER] XX SCH ×2 (08:04→20:24)
[2020-03-08] MEDS: HEPARIN SODIUM,PORCINE 5,000 UNITS/ML VIAL SQ SCH ×2 (08:05→20:24)
[2020-03-08] MEDS: HYDROGEN PEROXIDE 3% 118 ML BOTTLE TP SCH ×2 (09:29→21:04)
[2020-03-08] MEDS: JEVITY 1.2 1000 ML LIQUID GT PRN ×2 (10:54→11:17)
--- NOTE | 2020-03-08 17:40 | NUR ---
Seen by Dr. Aviles with no new order.
[2020-03-08 20:15] VITALS: BP 103/73
[2020-03-08] MEDS: OMEGA-3 FATTY ACIDS/FISH OIL CAPSULE GT SCH (20:23)
[2020-03-08] MEDS: BENZOYL PEROXIDE 10% GEL 60 GM TUBE TP SCH (20:24)
[2020-03-09] MEDS: JEVITY 1.2 1000 ML LIQUID GT PRN ×2 (01:33→19:30)
[2020-03-09] MEDS: CHOLECALCIFEROL 1,000 UNIT TABLET GT SCH (05:38)
[2020-03-09] MEDS: OMEPRAZOLE 20 MG CAPSULE.DR GT SCH (05:38)
[2020-03-09] MEDS: LORATADINE 10 MG TABLET GT SCH (05:38)
[2020-03-09 07:41] VITALS: BP 120/66
[2020-03-09] MEDS: BACLOFEN 10 MG TABLET GT SCH ×2 (08:00→20:27)
[2020-03-09] MEDS: [UNRECOGNIZED DRUG - OTHER] GT SCH ×2 (08:00→20:27)
[2020-03-09] MEDS: VITAMINS A AND D OINT TP SCH (08:01)
[2020-03-09] MEDS: Z GUARD REMEDY PASTE 57 GM TUBE TOP SCH ×2 (08:01→20:27)
[2020-03-09] MEDS: [UNRECOGNIZED DRUG - OTHER] XX SCH ×2 (08:01→20:27)
[2020-03-09] MEDS: HEPARIN SODIUM,PORCINE 5,000 UNITS/ML VIAL SQ SCH ×2 (08:01→20:26)
[2020-03-09] MEDS: HYDROGEN PEROXIDE 3% 118 ML BOTTLE TP SCH ×2 (09:10→21:21)
[2020-03-09] MEDS: BENZOYL PEROXIDE 10% GEL 60 GM TUBE TP SCH (20:27)
[2020-03-09] MEDS: OMEGA-3 FATTY ACIDS/FISH OIL CAPSULE GT SCH (20:27)
[2020-03-09 21:39] VITALS: BP 107/75
[2020-03-10] MEDS: CHOLECALCIFEROL 1,000 UNIT TABLET GT SCH (05:35)
[2020-03-10] MEDS: OMEPRAZOLE 20 MG CAPSULE.DR GT SCH (05:35)
[2020-03-10] MEDS: LORATADINE 10 MG TABLET GT SCH (05:35)
[2020-03-10 07:38] VITALS: BP 109/70
[2020-03-10] MEDS: BACLOFEN 10 MG TABLET GT SCH ×2 (08:39→20:26)
[2020-03-10] MEDS: [UNRECOGNIZED DRUG - OTHER] GT SCH ×2 (08:39→20:26)
[2020-03-10] MEDS: HEPARIN SODIUM,PORCINE 5,000 UNITS/ML VIAL SQ SCH ×2 (08:41→20:27)
[2020-03-10] MEDS: Z GUARD REMEDY PASTE 57 GM TUBE TOP SCH ×2 (08:41→20:27)
[2020-03-10] MEDS: [UNRECOGNIZED DRUG - OTHER] XX SCH ×2 (08:43→20:27)
[2020-03-10] MEDS: VITAMINS A AND D OINT TP SCH (08:43)
[2020-03-10] MEDS: HYDROGEN PEROXIDE 3% 118 ML BOTTLE TP SCH ×2 (09:44→20:34)
[2020-03-10] MEDS: JEVITY 1.2 1000 ML LIQUID GT PRN (18:05)
[2020-03-10] MEDS: OMEGA-3 FATTY ACIDS/FISH OIL CAPSULE GT SCH (20:26)
[2020-03-10] MEDS: BENZOYL PEROXIDE 10% GEL 60 GM TUBE TP SCH (20:27)
[2020-03-10 20:53] VITALS: BP 105/68
[2020-03-11] MEDS: LORATADINE 10 MG TABLET GT SCH (05:37)
[2020-03-11] MEDS: CHOLECALCIFEROL 1,000 UNIT TABLET GT SCH (05:37)
[2020-03-11] MEDS: OMEPRAZOLE 20 MG CAPSULE.DR GT SCH (05:37)
[2020-03-11 08:01] VITALS: BP 100/59
[2020-03-11] MEDS: HEPARIN SODIUM,PORCINE 5,000 UNITS/ML VIAL SQ SCH ×2 (08:32→20:24)
[2020-03-11] MEDS: [UNRECOGNIZED DRUG - OTHER] XX SCH ×2 (08:32→20:25)
[2020-03-11] MEDS: Z GUARD REMEDY PASTE 57 GM TUBE TOP SCH ×2 (08:32→20:25)
[2020-03-11] MEDS: VITAMINS A AND D OINT TP SCH (08:32)
[2020-03-11] MEDS: BACLOFEN 10 MG TABLET GT SCH ×2 (08:32→20:24)
[2020-03-11] MEDS: [UNRECOGNIZED DRUG - OTHER] GT SCH ×2 (08:32→20:24)
[2020-03-11] MEDS: HYDROGEN PEROXIDE 3% 118 ML BOTTLE TP SCH ×2 (09:18→21:42)
[2020-03-11] MEDS: JEVITY 1.2 1000 ML LIQUID GT PRN (14:35)
[2020-03-11] MEDS: OMEGA-3 FATTY ACIDS/FISH OIL CAPSULE GT SCH (20:24)
[2020-03-11] MEDS: BENZOYL PEROXIDE 10% GEL 60 GM TUBE TP SCH (20:25)
[2020-03-11 21:04] VITALS: BP 101/66
[2020-03-12] MEDS: CHOLECALCIFEROL 1,000 UNIT TABLET GT SCH (05:17)
[2020-03-12] MEDS: OMEPRAZOLE 20 MG CAPSULE.DR GT SCH (05:17)
[2020-03-12] MEDS: LORATADINE 10 MG TABLET GT SCH (05:17)
[2020-03-12 07:46] VITALS: BP 100/55
[2020-03-12] MEDS: VITAMINS A AND D OINT TP SCH (08:41)
[2020-03-12] MEDS: [UNRECOGNIZED DRUG - OTHER] GT SCH ×2 (08:41→21:00)
[2020-03-12] MEDS: BACLOFEN 10 MG TABLET GT SCH ×2 (08:41→21:59)
[2020-03-12] MEDS: Z GUARD REMEDY PASTE 57 GM TUBE TOP SCH ×2 (08:41→21:00)
[2020-03-12] MEDS: HEPARIN SODIUM,PORCINE 5,000 UNITS/ML VIAL SQ SCH ×2 (08:41→21:00)
[2020-03-12] MEDS: [UNRECOGNIZED DRUG - OTHER] XX SCH ×2 (08:41→21:00)
[2020-03-12] MEDS: HYDROGEN PEROXIDE 3% 118 ML BOTTLE TP SCH ×2 (09:14→20:36)
[2020-03-12 20:05] VITALS: BP 108/70
[2020-03-12] MEDS: BENZOYL PEROXIDE 10% GEL 60 GM TUBE TP SCH (21:00)
[2020-03-12] MEDS: OMEGA-3 FATTY ACIDS/FISH OIL CAPSULE GT SCH (21:59)
[2020-03-13] MEDS: JEVITY 1.2 1000 ML LIQUID GT PRN (02:45)
[2020-03-13] MEDS: CHOLECALCIFEROL 1,000 UNIT TABLET GT SCH (06:23)
[2020-03-13] MEDS: LORATADINE 10 MG TABLET GT SCH (06:23)
[2020-03-13] MEDS: OMEPRAZOLE 20 MG CAPSULE.DR GT SCH (06:23)
[2020-03-13 08:03] VITALS: BP 121/77
[2020-03-13] MEDS: [UNRECOGNIZED DRUG - OTHER] GT SCH ×2 (08:50→21:32)
[2020-03-13] MEDS: BACLOFEN 10 MG TABLET GT SCH ×2 (08:50→21:32)
[2020-03-13] MEDS: VITAMINS A AND D OINT TP SCH (08:51)
[2020-03-13] MEDS: HEPARIN SODIUM,PORCINE 5,000 UNITS/ML VIAL SQ SCH ×2 (08:51→21:43)
[2020-03-13] MEDS: [UNRECOGNIZED DRUG - OTHER] XX SCH ×2 (08:51→21:33)
[2020-03-13] MEDS: Z GUARD REMEDY PASTE 57 GM TUBE TOP SCH ×2 (08:51→21:33)
[2020-03-13] MEDS: HYDROGEN PEROXIDE 3% 118 ML BOTTLE TP SCH ×2 (09:00→21:17)
--- NOTE | 2020-03-13 17:07 | NUR ---
New orders to do the Baseline [facility] Covid 19 test requirement.
[2020-03-13 20:08] VITALS: BP 113/70
[2020-03-13] MEDS: OMEGA-3 FATTY ACIDS/FISH OIL CAPSULE GT SCH (21:32)
[2020-03-13] MEDS: BENZOYL PEROXIDE 10% GEL 60 GM TUBE TP SCH (21:33)
[2020-03-14] MEDS: JEVITY 1.2 1000 ML LIQUID GT PRN (02:30)
[2020-03-14] MEDS: CHOLECALCIFEROL 1,000 UNIT TABLET GT SCH (05:45)
[2020-03-14] MEDS: OMEPRAZOLE 20 MG CAPSULE.DR GT SCH (05:45)
[2020-03-14] MEDS: LORATADINE 10 MG TABLET GT SCH (05:45)
[2020-03-14 07:47] VITALS: BP 116/60
[2020-03-14] MEDS: [UNRECOGNIZED DRUG - OTHER] GT SCH ×2 (08:38→21:25)
[2020-03-14] MEDS: BACLOFEN 10 MG TABLET GT SCH ×2 (08:38→21:25)
[2020-03-14] MEDS: HEPARIN SODIUM,PORCINE 5,000 UNITS/ML VIAL SQ SCH ×2 (08:39→21:26)
[2020-03-14] MEDS: VITAMINS A AND D OINT TP SCH (08:39)
[2020-03-14] MEDS: Z GUARD REMEDY PASTE 57 GM TUBE TOP SCH ×2 (08:39→21:26)
[2020-03-14] MEDS: [UNRECOGNIZED DRUG - OTHER] XX SCH ×2 (08:39→21:27)
[2020-03-14] MEDS: HYDROGEN PEROXIDE 3% 118 ML BOTTLE TP SCH ×2 (09:21→21:26)
[2020-03-14 20:10] VITALS: BP 103/55
[2020-03-14] MEDS: OMEGA-3 FATTY ACIDS/FISH OIL CAPSULE GT SCH (21:25)
[2020-03-14] MEDS: BENZOYL PEROXIDE 10% GEL 60 GM TUBE TP SCH (21:27)
[2020-03-15] MEDS: JEVITY 1.2 1000 ML LIQUID GT PRN ×2 (01:45→23:22)
[2020-03-15] MEDS: CHOLECALCIFEROL 1,000 UNIT TABLET GT SCH (05:09)
[2020-03-15] MEDS: OMEPRAZOLE 20 MG CAPSULE.DR GT SCH (05:09)
[2020-03-15] MEDS: LORATADINE 10 MG TABLET GT SCH (05:09)
[2020-03-15 07:42] VITALS: BP 105/64
[2020-03-15] MEDS: [UNRECOGNIZED DRUG - OTHER] GT SCH ×2 (08:13→21:36)
[2020-03-15] MEDS: BACLOFEN 10 MG TABLET GT SCH ×2 (08:13→21:36)
[2020-03-15] MEDS: HEPARIN SODIUM,PORCINE 5,000 UNITS/ML VIAL SQ SCH ×2 (08:14→21:00)
[2020-03-15] MEDS: [UNRECOGNIZED DRUG - OTHER] XX SCH ×2 (08:14→21:37)
[2020-03-15] MEDS: VITAMINS A AND D OINT TP SCH (08:14)
[2020-03-15] MEDS: Z GUARD REMEDY PASTE 57 GM TUBE TOP SCH ×2 (08:14→21:36)
[2020-03-15] MEDS: HYDROGEN PEROXIDE 3% 118 ML BOTTLE TP SCH ×2 (09:00→21:31)
[2020-03-15 20:27] VITALS: BP 109/73
[2020-03-15] MEDS: BENZOYL PEROXIDE 10% GEL 60 GM TUBE TP SCH (21:36)
[2020-03-15] MEDS: OMEGA-3 FATTY ACIDS/FISH OIL CAPSULE GT SCH (21:36)
[2020-03-16] MEDS: LORATADINE 10 MG TABLET GT SCH (06:09)
[2020-03-16] MEDS: OMEPRAZOLE 20 MG CAPSULE.DR GT SCH (06:09)
[2020-03-16] MEDS: CHOLECALCIFEROL 1,000 UNIT TABLET GT SCH (06:09)
[2020-03-16] MEDS: HYDROGEN PEROXIDE 3% 118 ML BOTTLE TP SCH ×2 (07:13→21:00)
[2020-03-16 07:34] VITALS: BP 120/62
--- NOTE | 2020-03-16 08:00 | NUR ---
PT. NEGATIVE FOR COVID 19 TEST.
[2020-03-16] MEDS: [UNRECOGNIZED DRUG - OTHER] GT SCH ×2 (08:50→20:57)
[2020-03-16] MEDS: BACLOFEN 10 MG TABLET GT SCH ×2 (08:50→20:57)
[2020-03-16] MEDS: Z GUARD REMEDY PASTE 57 GM TUBE TOP SCH ×2 (08:51→20:59)
[2020-03-16] MEDS: [UNRECOGNIZED DRUG - OTHER] XX SCH ×2 (08:51→20:59)
[2020-03-16] MEDS: VITAMINS A AND D OINT TP SCH (08:51)
[2020-03-16] MEDS: HEPARIN SODIUM,PORCINE 5,000 UNITS/ML VIAL SQ SCH ×2 (08:57→20:57)
[2020-03-16] MEDS: JEVITY 1.2 1000 ML LIQUID GT PRN (17:08)
[2020-03-16 20:01] VITALS: BP 114/60
[2020-03-16] MEDS: OMEGA-3 FATTY ACIDS/FISH OIL CAPSULE GT SCH (20:56)
[2020-03-16] MEDS: BENZOYL PEROXIDE 10% GEL 60 GM TUBE TP SCH (20:59)
[2020-03-17] MEDS: OMEPRAZOLE 20 MG CAPSULE.DR GT SCH (05:56)
[2020-03-17] MEDS: CHOLECALCIFEROL 1,000 UNIT TABLET GT SCH (05:56)
[2020-03-17] MEDS: LORATADINE 10 MG TABLET GT SCH (05:56)
[2020-03-17] MEDS: [UNRECOGNIZED DRUG - OTHER] GT SCH ×2 (08:11→21:00)
[2020-03-17] MEDS: BACLOFEN 10 MG TABLET GT SCH ×2 (08:11→21:00)
[2020-03-17 08:27] VITALS: BP 106/64
[2020-03-17] MEDS: HEPARIN SODIUM,PORCINE 5,000 UNITS/ML VIAL SQ SCH ×2 (08:46→21:00)
[2020-03-17] MEDS: [UNRECOGNIZED DRUG - OTHER] XX SCH ×2 (08:46→21:00)
[2020-03-17] MEDS: VITAMINS A AND D OINT TP SCH (08:46)
[2020-03-17] MEDS: Z GUARD REMEDY PASTE 57 GM TUBE TOP SCH ×2 (08:46→21:00)
[2020-03-17] MEDS: HYDROGEN PEROXIDE 3% 118 ML BOTTLE TP SCH ×2 (09:09→21:25)
[2020-03-17] MEDS: JEVITY 1.2 1000 ML LIQUID GT PRN (17:30)
[2020-03-17 20:14] VITALS: BP 119/67
[2020-03-17] MEDS: OMEGA-3 FATTY ACIDS/FISH OIL CAPSULE GT SCH (21:00)
[2020-03-17] MEDS: BENZOYL PEROXIDE 10% GEL 60 GM TUBE TP SCH (21:00)
[2020-03-18] MEDS: CHOLECALCIFEROL 1,000 UNIT TABLET GT SCH (06:02)
[2020-03-18] MEDS: LORATADINE 10 MG TABLET GT SCH (06:02)
[2020-03-18] MEDS: OMEPRAZOLE 20 MG CAPSULE.DR GT SCH (06:02)
[2020-03-18 08:02] VITALS: BP 112/66
[2020-03-18] MEDS: [UNRECOGNIZED DRUG - OTHER] XX SCH ×2 (09:00→21:37)
[2020-03-18] MEDS: Z GUARD REMEDY PASTE 57 GM TUBE TOP SCH ×2 (09:00→21:36)
[2020-03-18] MEDS: [UNRECOGNIZED DRUG - OTHER] GT SCH ×2 (09:00→21:34)
[2020-03-18] MEDS: BACLOFEN 10 MG TABLET GT SCH ×2 (09:00→21:34)
[2020-03-18] MEDS: HEPARIN SODIUM,PORCINE 5,000 UNITS/ML VIAL SQ SCH ×2 (09:00→21:36)
[2020-03-18] MEDS: VITAMINS A AND D OINT TP SCH (09:00)
[2020-03-18] MEDS: HYDROGEN PEROXIDE 3% 118 ML BOTTLE TP SCH ×2 (09:36→21:37)
[2020-03-18 21:04] VITALS: BP 127/87
[2020-03-18] MEDS: OMEGA-3 FATTY ACIDS/FISH OIL CAPSULE GT SCH (21:34)
[2020-03-18] MEDS: BENZOYL PEROXIDE 10% GEL 60 GM TUBE TP SCH (21:36)
[2020-03-19] MEDS: OMEPRAZOLE 20 MG CAPSULE.DR GT SCH (05:51)
[2020-03-19] MEDS: LORATADINE 10 MG TABLET GT SCH (05:51)
[2020-03-19] MEDS: CHOLECALCIFEROL 1,000 UNIT TABLET GT SCH (05:51)
[2020-03-19 07:48] VITALS: BP 113/54
[2020-03-19] MEDS: [UNRECOGNIZED DRUG - OTHER] GT SCH ×2 (09:06→20:47)
[2020-03-19] MEDS: Z GUARD REMEDY PASTE 57 GM TUBE TOP SCH ×2 (09:06→20:48)
[2020-03-19] MEDS: HYDROGEN PEROXIDE 3% 118 ML BOTTLE TP SCH ×2 (09:06→21:28)
[2020-03-19] MEDS: BACLOFEN 10 MG TABLET GT SCH ×2 (09:06→20:47)
[2020-03-19] MEDS: [UNRECOGNIZED DRUG - OTHER] XX SCH ×2 (09:07→20:48)
[2020-03-19] MEDS: HEPARIN SODIUM,PORCINE 5,000 UNITS/ML VIAL SQ SCH ×2 (09:07→20:51)
[2020-03-19] MEDS: VITAMINS A AND D OINT TP SCH (09:07)
[2020-03-19 20:39] VITALS: BP 113/68
[2020-03-19] MEDS: OMEGA-3 FATTY ACIDS/FISH OIL CAPSULE GT SCH (20:47)
[2020-03-19] MEDS: BENZOYL PEROXIDE 10% GEL 60 GM TUBE TP SCH (20:48)
[2020-03-20] MEDS: LORATADINE 10 MG TABLET GT SCH (05:49)
[2020-03-20] MEDS: CHOLECALCIFEROL 1,000 UNIT TABLET GT SCH (05:49)
[2020-03-20] MEDS: OMEPRAZOLE 20 MG CAPSULE.DR GT SCH (05:49)
[2020-03-20 07:42] VITALS: BP 98/58
[2020-03-20] MEDS: BACLOFEN 10 MG TABLET GT SCH ×2 (08:48→21:00)
[2020-03-20] MEDS: Z GUARD REMEDY PASTE 57 GM TUBE TOP SCH ×2 (08:50→21:00)
[2020-03-20] MEDS: [UNRECOGNIZED DRUG - OTHER] GT SCH ×2 (08:50→21:00)
[2020-03-20] MEDS: HEPARIN SODIUM,PORCINE 5,000 UNITS/ML VIAL SQ SCH ×2 (08:51→21:00)
[2020-03-20] MEDS: VITAMINS A AND D OINT TP SCH (09:00)
[2020-03-20] MEDS: HYDROGEN PEROXIDE 3% 118 ML BOTTLE TP SCH ×2 (09:00→21:01)
[2020-03-20] MEDS: [UNRECOGNIZED DRUG - OTHER] XX SCH ×2 (09:00→21:00)
[2020-03-20 20:24] VITALS: BP 102/67
[2020-03-20] MEDS: BENZOYL PEROXIDE 10% GEL 60 GM TUBE TP SCH (21:00)
[2020-03-20] MEDS: OMEGA-3 FATTY ACIDS/FISH OIL CAPSULE GT SCH (21:00)
[2020-03-21] MEDS: LORATADINE 10 MG TABLET GT SCH (05:25)
[2020-03-21] MEDS: OMEPRAZOLE 20 MG CAPSULE.DR GT SCH (05:25)
[2020-03-21] MEDS: CHOLECALCIFEROL 1,000 UNIT TABLET GT SCH (05:25)
[2020-03-21 07:45] VITALS: BP 116/62
[2020-03-21] MEDS: BACLOFEN 10 MG TABLET GT SCH ×2 (08:44→20:36)
[2020-03-21] MEDS: [UNRECOGNIZED DRUG - OTHER] GT SCH ×2 (08:44→20:36)
[2020-03-21] MEDS: Z GUARD REMEDY PASTE 57 GM TUBE TOP SCH ×2 (08:45→20:37)
[2020-03-21] MEDS: HEPARIN SODIUM,PORCINE 5,000 UNITS/ML VIAL SQ SCH ×2 (08:46→20:37)
[2020-03-21] MEDS: HYDROGEN PEROXIDE 3% 118 ML BOTTLE TP SCH ×2 (09:00→21:33)
[2020-03-21] MEDS: [UNRECOGNIZED DRUG - OTHER] XX SCH ×2 (09:00→20:37)
[2020-03-21] MEDS: VITAMINS A AND D OINT TP SCH (09:00)
[2020-03-21 20:00] VITALS: BP 118/74
[2020-03-21] MEDS: OMEGA-3 FATTY ACIDS/FISH OIL CAPSULE GT SCH (20:36)
[2020-03-21] MEDS: BENZOYL PEROXIDE 10% GEL 60 GM TUBE TP SCH (20:37)
[2020-03-22] MEDS: LORATADINE 10 MG TABLET GT SCH (05:04)
[2020-03-22] MEDS: CHOLECALCIFEROL 1,000 UNIT TABLET GT SCH (05:04)
[2020-03-22] MEDS: OMEPRAZOLE 20 MG CAPSULE.DR GT SCH (05:04)
[2020-03-22 07:35] VITALS: BP 114/72
[2020-03-22] MEDS: [UNRECOGNIZED DRUG - OTHER] GT SCH ×2 (08:43→21:01)
[2020-03-22] MEDS: BACLOFEN 10 MG TABLET GT SCH ×2 (08:43→21:01)
[2020-03-22] MEDS: Z GUARD REMEDY PASTE 57 GM TUBE TOP SCH ×2 (08:44→21:03)
[2020-03-22] MEDS: VITAMINS A AND D OINT TP SCH (08:44)
[2020-03-22] MEDS: [UNRECOGNIZED DRUG - OTHER] XX SCH ×2 (08:44→21:04)
[2020-03-22] MEDS: HEPARIN SODIUM,PORCINE 5,000 UNITS/ML VIAL SQ SCH ×2 (08:44→21:03)
[2020-03-22] MEDS: HYDROGEN PEROXIDE 3% 118 ML BOTTLE TP SCH ×2 (09:00→21:44)
[2020-03-22] MEDS: JEVITY 1.2 1000 ML LIQUID GT PRN (13:50)
[2020-03-22 20:25] VITALS: BP 106/64
[2020-03-22] MEDS: OMEGA-3 FATTY ACIDS/FISH OIL CAPSULE GT SCH (21:01)
[2020-03-22] MEDS: BENZOYL PEROXIDE 10% GEL 60 GM TUBE TP SCH (21:04)
[2020-03-23] MEDS: CHOLECALCIFEROL 1,000 UNIT TABLET GT SCH (06:06)
[2020-03-23] MEDS: OMEPRAZOLE 20 MG CAPSULE.DR GT SCH (06:06)
[2020-03-23] MEDS: LORATADINE 10 MG TABLET GT SCH (06:06)
[2020-03-23] MEDS: HYDROGEN PEROXIDE 3% 118 ML BOTTLE TP SCH ×2 (07:12→21:15)
[2020-03-23 07:42] VITALS: BP 111/70
[2020-03-23] MEDS: [UNRECOGNIZED DRUG - OTHER] GT SCH ×2 (08:24→20:43)
[2020-03-23] MEDS: VITAMINS A AND D OINT TP SCH (08:24)
[2020-03-23] MEDS: [UNRECOGNIZED DRUG - OTHER] XX SCH ×2 (08:24→20:43)
[2020-03-23] MEDS: BACLOFEN 10 MG TABLET GT SCH ×2 (08:24→20:43)
[2020-03-23] MEDS: Z GUARD REMEDY PASTE 57 GM TUBE TOP SCH ×2 (08:24→20:43)
[2020-03-23] MEDS: HEPARIN SODIUM,PORCINE 5,000 UNITS/ML VIAL SQ SCH ×2 (08:32→20:45)
[2020-03-23] MEDS: JEVITY 1.2 1000 ML LIQUID GT PRN (11:22)
[2020-03-23 20:00] VITALS: BP 107/72
[2020-03-23] MEDS: OMEGA-3 FATTY ACIDS/FISH OIL CAPSULE GT SCH (20:43)
[2020-03-23] MEDS: BENZOYL PEROXIDE 10% GEL 60 GM TUBE TP SCH (20:43)
[2020-03-24] MEDS: JEVITY 1.2 1000 ML LIQUID GT PRN (03:51)
[2020-03-24] MEDS: LORATADINE 10 MG TABLET GT SCH (05:48)
[2020-03-24] MEDS: OMEPRAZOLE 20 MG CAPSULE.DR GT SCH (05:48)
[2020-03-24] MEDS: CHOLECALCIFEROL 1,000 UNIT TABLET GT SCH (05:48)
[2020-03-24 07:31] VITALS: BP 117/63
[2020-03-24] MEDS: BACLOFEN 10 MG TABLET GT SCH ×2 (09:06→21:52)
[2020-03-24] MEDS: [UNRECOGNIZED DRUG - OTHER] GT SCH ×2 (09:07→21:52)
[2020-03-24] MEDS: HYDROGEN PEROXIDE 3% 118 ML BOTTLE TP SCH ×2 (09:09→21:10)
[2020-03-24] MEDS: Z GUARD REMEDY PASTE 57 GM TUBE TOP SCH ×2 (09:11→21:52)
[2020-03-24] MEDS: HEPARIN SODIUM,PORCINE 5,000 UNITS/ML VIAL SQ SCH ×2 (09:11→21:00)
[2020-03-24] MEDS: VITAMINS A AND D OINT TP SCH (09:11)
[2020-03-24] MEDS: [UNRECOGNIZED DRUG - OTHER] XX SCH ×2 (09:12→21:52)
[2020-03-24 20:51] VITALS: BP 118/62
[2020-03-24] MEDS: BENZOYL PEROXIDE 10% GEL 60 GM TUBE TP SCH (21:52)
[2020-03-24] MEDS: OMEGA-3 FATTY ACIDS/FISH OIL CAPSULE GT SCH (21:52)
[2020-03-25] MEDS: JEVITY 1.2 1000 ML LIQUID GT PRN ×2 (03:06→23:05)
[2020-03-25] MEDS: LORATADINE 10 MG TABLET GT SCH (06:23)
[2020-03-25] MEDS: OMEPRAZOLE 20 MG CAPSULE.DR GT SCH (06:23)
[2020-03-25] MEDS: CHOLECALCIFEROL 1,000 UNIT TABLET GT SCH (06:23)
[2020-03-25 07:27] VITALS: BP 116/63
[2020-03-25] MEDS: [UNRECOGNIZED DRUG - OTHER] GT SCH ×2 (08:37→21:24)
[2020-03-25] MEDS: BACLOFEN 10 MG TABLET GT SCH ×2 (08:37→21:24)
[2020-03-25] MEDS: HEPARIN SODIUM,PORCINE 5,000 UNITS/ML VIAL SQ SCH ×2 (08:39→21:00)
[2020-03-25] MEDS: VITAMINS A AND D OINT TP SCH (08:40)
[2020-03-25] MEDS: Z GUARD REMEDY PASTE 57 GM TUBE TOP SCH ×2 (08:40→21:24)
[2020-03-25] MEDS: [UNRECOGNIZED DRUG - OTHER] XX SCH ×2 (08:40→21:25)
[2020-03-25] MEDS: HYDROGEN PEROXIDE 3% 118 ML BOTTLE TP SCH ×2 (09:00→21:20)
[2020-03-25 20:28] VITALS: BP 117/64
[2020-03-25] MEDS: BENZOYL PEROXIDE 10% GEL 60 GM TUBE TP SCH (21:24)
[2020-03-25] MEDS: OMEGA-3 FATTY ACIDS/FISH OIL CAPSULE GT SCH (21:24)
[2020-03-26] MEDS: OMEPRAZOLE 20 MG CAPSULE.DR GT SCH (05:53)
[2020-03-26] MEDS: CHOLECALCIFEROL 1,000 UNIT TABLET GT SCH (05:53)
[2020-03-26] MEDS: LORATADINE 10 MG TABLET GT SCH (05:53)
[2020-03-26 07:25] VITALS: BP 133/98
[2020-03-26] MEDS: [UNRECOGNIZED DRUG - OTHER] GT SCH ×2 (09:10→20:45)
[2020-03-26] MEDS: BACLOFEN 10 MG TABLET GT SCH ×2 (09:10→20:45)
[2020-03-26] MEDS: HEPARIN SODIUM,PORCINE 5,000 UNITS/ML VIAL SQ SCH ×2 (09:11→20:46)
[2020-03-26] MEDS: [UNRECOGNIZED DRUG - OTHER] XX SCH ×2 (09:11→20:48)
[2020-03-26] MEDS: Z GUARD REMEDY PASTE 57 GM TUBE TOP SCH ×2 (09:11→20:47)
[2020-03-26] MEDS: VITAMINS A AND D OINT TP SCH (09:11)
[2020-03-26] MEDS: HYDROGEN PEROXIDE 3% 118 ML BOTTLE TP SCH ×2 (09:27→21:05)
--- NOTE | 2020-03-26 12:30 | NUR ---
Resident provided with video chat with his mother with no problem noted, pt. kept clean and comfortable, all needs anticipated.
[2020-03-26 20:04] VITALS: BP 110/68
[2020-03-26] MEDS: OMEGA-3 FATTY ACIDS/FISH OIL CAPSULE GT SCH (20:45)
[2020-03-26] MEDS: BENZOYL PEROXIDE 10% GEL 60 GM TUBE TP SCH (20:47)
[2020-03-27] MEDS: JEVITY 1.2 1000 ML LIQUID GT PRN (01:25)
[2020-03-27] MEDS: OMEPRAZOLE 20 MG CAPSULE.DR GT SCH (05:59)
[2020-03-27] MEDS: CHOLECALCIFEROL 1,000 UNIT TABLET GT SCH (05:59)
[2020-03-27] MEDS: LORATADINE 10 MG TABLET GT SCH (05:59)
[2020-03-27 07:46] VITALS: BP 101/67
[2020-03-27] MEDS: BACLOFEN 10 MG TABLET GT SCH ×2 (08:40→20:50)
[2020-03-27] MEDS: [UNRECOGNIZED DRUG - OTHER] GT SCH ×2 (08:40→20:50)
[2020-03-27] MEDS: HEPARIN SODIUM,PORCINE 5,000 UNITS/ML VIAL SQ SCH ×2 (08:41→20:50)
[2020-03-27] MEDS: Z GUARD REMEDY PASTE 57 GM TUBE TOP SCH ×2 (08:41→20:50)
[2020-03-27] MEDS: [UNRECOGNIZED DRUG - OTHER] XX SCH ×2 (08:41→20:51)
[2020-03-27] MEDS: VITAMINS A AND D OINT TP SCH (08:41)
[2020-03-27] MEDS: HYDROGEN PEROXIDE 3% 118 ML BOTTLE TP SCH ×2 (09:04→21:30)
[2020-03-27 20:06] VITALS: BP 116/70
[2020-03-27] MEDS: BENZOYL PEROXIDE 10% GEL 60 GM TUBE TP SCH (20:50)
[2020-03-27] MEDS: OMEGA-3 FATTY ACIDS/FISH OIL CAPSULE GT SCH (20:50)
[2020-03-28] MEDS: LORATADINE 10 MG TABLET GT SCH (06:07)
[2020-03-28] MEDS: CHOLECALCIFEROL 1,000 UNIT TABLET GT SCH (06:07)
[2020-03-28] MEDS: OMEPRAZOLE 20 MG CAPSULE.DR GT SCH (06:07)
[2020-03-28 07:46] VITALS: BP 119/64
[2020-03-28] MEDS: BACLOFEN 10 MG TABLET GT SCH ×2 (08:45→20:50)
[2020-03-28] MEDS: [UNRECOGNIZED DRUG - OTHER] GT SCH ×2 (08:45→20:50)
[2020-03-28] MEDS: HEPARIN SODIUM,PORCINE 5,000 UNITS/ML VIAL SQ SCH ×2 (08:46→20:52)
[2020-03-28] MEDS: Z GUARD REMEDY PASTE 57 GM TUBE TOP SCH ×2 (08:46→20:50)
[2020-03-28] MEDS: VITAMINS A AND D OINT TP SCH (08:46)
[2020-03-28] MEDS: [UNRECOGNIZED DRUG - OTHER] XX SCH ×2 (08:46→20:53)
[2020-03-28] MEDS: HYDROGEN PEROXIDE 3% 118 ML BOTTLE TP SCH ×2 (09:00→21:28)
[2020-03-28 20:00] VITALS: BP 98/66
[2020-03-28] MEDS: OMEGA-3 FATTY ACIDS/FISH OIL CAPSULE GT SCH (20:50)
[2020-03-28] MEDS: BENZOYL PEROXIDE 10% GEL 60 GM TUBE TP SCH (20:52)
[2020-03-29] MEDS: LORATADINE 10 MG TABLET GT SCH (06:17)
[2020-03-29] MEDS: CHOLECALCIFEROL 1,000 UNIT TABLET GT SCH (06:18)
[2020-03-29] MEDS: OMEPRAZOLE 20 MG CAPSULE.DR GT SCH (06:18)
[2020-03-29 07:43] VITALS: BP 107/56
[2020-03-29] MEDS: VITAMINS A AND D OINT TP SCH (08:06)
[2020-03-29] MEDS: [UNRECOGNIZED DRUG - OTHER] XX SCH ×2 (08:07→20:24)
[2020-03-29] MEDS: Z GUARD REMEDY PASTE 57 GM TUBE TOP SCH ×2 (08:07→20:23)
[2020-03-29] MEDS: [UNRECOGNIZED DRUG - OTHER] GT SCH ×3 (08:09→21:00)
[2020-03-29] MEDS: BACLOFEN 10 MG TABLET GT SCH ×2 (08:14→20:23)
[2020-03-29] MEDS: HEPARIN SODIUM,PORCINE 5,000 UNITS/ML VIAL SQ SCH ×2 (08:18→20:24)
[2020-03-29] MEDS: HYDROGEN PEROXIDE 3% 118 ML BOTTLE TP SCH ×2 (09:10→21:27)
[2020-03-29] MEDS: ACETAMINOPHEN 650 MG/20 ML UDC- SA PATIENTS-PAIN ONLY GT PRN (10:20)
[2020-03-29] MEDS: JEVITY 1.2 1000 ML LIQUID GT PRN (15:56)
[2020-03-29 20:00] VITALS: BP 118/69
[2020-03-29] MEDS: BENZOYL PEROXIDE 10% GEL 60 GM TUBE TP SCH (20:23)
[2020-03-29] MEDS: OMEGA-3 FATTY ACIDS/FISH OIL CAPSULE GT SCH (20:23)
[2020-03-30] MEDS: JEVITY 1.2 1000 ML LIQUID GT PRN ×2 (02:23→23:16)
[2020-03-30] MEDS: OMEPRAZOLE 20 MG CAPSULE.DR GT SCH (05:07)
[2020-03-30] MEDS: CHOLECALCIFEROL 1,000 UNIT TABLET GT SCH (05:07)
[2020-03-30] MEDS: LORATADINE 10 MG TABLET GT SCH (05:07)
[2020-03-30 07:36] VITALS: BP 114/71
--- NOTE | 2020-03-30 08:41 | NUR ---
MESSAGE LEFT TO PT'S MOTHER RE: FOCUS FACTOR NEED TO PROVIDE.
[2020-03-30] MEDS: Z GUARD REMEDY PASTE 57 GM TUBE TOP SCH ×2 (08:54→20:11)
[2020-03-30] MEDS: BACLOFEN 10 MG TABLET GT SCH ×2 (08:54→20:11)
[2020-03-30] MEDS: VITAMINS A AND D OINT TP SCH (08:54)
[2020-03-30] MEDS: [UNRECOGNIZED DRUG - OTHER] XX SCH ×2 (08:55→20:11)
[2020-03-30] MEDS: [UNRECOGNIZED DRUG - OTHER] GT SCH ×2 (08:56→20:11)
[2020-03-30] MEDS: HEPARIN SODIUM,PORCINE 5,000 UNITS/ML VIAL SQ SCH ×2 (09:10→20:13)
[2020-03-30] MEDS: HYDROGEN PEROXIDE 3% 118 ML BOTTLE TP SCH ×2 (09:16→21:08)
[2020-03-30 20:01] VITALS: BP 105/68
[2020-03-30] MEDS: OMEGA-3 FATTY ACIDS/FISH OIL CAPSULE GT SCH (20:11)
[2020-03-30] MEDS: BENZOYL PEROXIDE 10% GEL 60 GM TUBE TP SCH (20:11)
[2020-03-31] MEDS: OMEPRAZOLE 20 MG CAPSULE.DR GT SCH (05:03)
[2020-03-31] MEDS: CHOLECALCIFEROL 1,000 UNIT TABLET GT SCH (05:03)
[2020-03-31] MEDS: LORATADINE 10 MG TABLET GT SCH (05:03)
[2020-03-31 08:58] VITALS: BP 151/73
[2020-03-31] MEDS: Z GUARD REMEDY PASTE 57 GM TUBE TOP SCH ×2 (09:08→20:24)
[2020-03-31] MEDS: [UNRECOGNIZED DRUG - OTHER] XX SCH ×2 (09:08→20:24)
[2020-03-31] MEDS: BACLOFEN 10 MG TABLET GT SCH ×2 (09:08→20:22)
[2020-03-31] MEDS: VITAMINS A AND D OINT TP SCH (09:08)
[2020-03-31] MEDS: [UNRECOGNIZED DRUG - OTHER] GT SCH ×2 (09:08→20:22)
[2020-03-31] MEDS: HEPARIN SODIUM,PORCINE 5,000 UNITS/ML VIAL SQ SCH ×2 (09:11→20:24)
[2020-03-31] MEDS: HYDROGEN PEROXIDE 3% 118 ML BOTTLE TP SCH ×2 (09:48→21:15)
[2020-03-31 20:10] VITALS: BP 100/62
[2020-03-31] MEDS: OMEGA-3 FATTY ACIDS/FISH OIL CAPSULE GT SCH (20:22)
[2020-03-31] MEDS: BENZOYL PEROXIDE 10% GEL 60 GM TUBE TP SCH (20:24)
[2020-04-01] MEDS: CHOLECALCIFEROL 1,000 UNIT TABLET GT SCH (05:01)
[2020-04-01] MEDS: LORATADINE 10 MG TABLET GT SCH (05:01)
[2020-04-01] MEDS: OMEPRAZOLE 20 MG CAPSULE.DR GT SCH (05:01)
--- NOTE | 2020-04-01 06:25 | NUR ---
Seen by Darcy Khan NP with no new orders.
[2020-04-01 08:03] VITALS: BP 122/67
[2020-04-01] MEDS: BACLOFEN 10 MG TABLET GT SCH ×2 (08:32→21:12)
[2020-04-01] MEDS: [UNRECOGNIZED DRUG - OTHER] GT SCH ×2 (08:32→21:13)
[2020-04-01] MEDS: VITAMINS A AND D OINT TP SCH (08:35)
[2020-04-01] MEDS: HEPARIN SODIUM,PORCINE 5,000 UNITS/ML VIAL SQ SCH ×2 (08:35→21:00)
[2020-04-01] MEDS: [UNRECOGNIZED DRUG - OTHER] XX SCH ×2 (08:35→21:14)
[2020-04-01] MEDS: Z GUARD REMEDY PASTE 57 GM TUBE TOP SCH ×2 (08:35→21:14)
[2020-04-01] MEDS: HYDROGEN PEROXIDE 3% 118 ML BOTTLE TP SCH ×2 (09:00→21:22)
[2020-04-01] MEDS: JEVITY 1.2 1000 ML LIQUID GT PRN (17:16)
[2020-04-01 19:53] VITALS: BP 106/58
[2020-04-01] MEDS: OMEGA-3 FATTY ACIDS/FISH OIL CAPSULE GT SCH (21:12)
[2020-04-01] MEDS: BENZOYL PEROXIDE 10% GEL 60 GM TUBE TP SCH (21:14)
[2020-04-02] MEDS: OMEPRAZOLE 20 MG CAPSULE.DR GT SCH (05:16)
[2020-04-02] MEDS: CHOLECALCIFEROL 1,000 UNIT TABLET GT SCH (05:16)
[2020-04-02] MEDS: LORATADINE 10 MG TABLET GT SCH (05:16)
[2020-04-02 07:18] VITALS: BP 99/59
[2020-04-02] MEDS: BACLOFEN 10 MG TABLET GT SCH ×2 (08:58→21:21)
[2020-04-02] MEDS: [UNRECOGNIZED DRUG - OTHER] GT SCH ×2 (08:58→21:26)
[2020-04-02] MEDS: HEPARIN SODIUM,PORCINE 5,000 UNITS/ML VIAL SQ SCH ×2 (08:59→21:36)
[2020-04-02] MEDS: VITAMINS A AND D OINT TP SCH (09:04)
[2020-04-02] MEDS: [UNRECOGNIZED DRUG - OTHER] XX SCH ×2 (09:04→21:27)
[2020-04-02] MEDS: Z GUARD REMEDY PASTE 57 GM TUBE TOP SCH ×2 (09:04→21:27)
[2020-04-02] MEDS: HYDROGEN PEROXIDE 3% 118 ML BOTTLE TP SCH ×2 (09:58→21:08)
[2020-04-02] MEDS: JEVITY 1.2 1000 ML LIQUID GT PRN (12:04)
[2020-04-02 19:44] VITALS: BP 122/68
[2020-04-02] MEDS: OMEGA-3 FATTY ACIDS/FISH OIL CAPSULE GT SCH (21:21)
[2020-04-02] MEDS: BENZOYL PEROXIDE 10% GEL 60 GM TUBE TP SCH (21:27)
[2020-04-03] MEDS: LORATADINE 10 MG TABLET GT SCH (06:13)
[2020-04-03] MEDS: CHOLECALCIFEROL 1,000 UNIT TABLET GT SCH (06:13)
[2020-04-03] MEDS: OMEPRAZOLE 20 MG CAPSULE.DR GT SCH (06:13)
[2020-04-03] MEDS: HYDROGEN PEROXIDE 3% 118 ML BOTTLE TP SCH ×2 (07:25→21:17)
[2020-04-03 07:36] VITALS: BP 116/66
[2020-04-03] MEDS: [UNRECOGNIZED DRUG - OTHER] GT SCH ×2 (08:13→21:27)
[2020-04-03] MEDS: BACLOFEN 10 MG TABLET GT SCH ×2 (08:13→21:27)
[2020-04-03] MEDS: HEPARIN SODIUM,PORCINE 5,000 UNITS/ML VIAL SQ SCH ×2 (08:14→21:30)
[2020-04-03] MEDS: Z GUARD REMEDY PASTE 57 GM TUBE TOP SCH ×2 (08:16→21:30)
[2020-04-03] MEDS: VITAMINS A AND D OINT TP SCH (08:16)
[2020-04-03] MEDS: [UNRECOGNIZED DRUG - OTHER] XX SCH ×2 (08:16→21:30)
[2020-04-03] MEDS: JEVITY 1.2 1000 ML LIQUID GT PRN (12:33)
[2020-04-03 19:50] VITALS: BP 107/71
[2020-04-03] MEDS: OMEGA-3 FATTY ACIDS/FISH OIL CAPSULE GT SCH (21:27)
[2020-04-03] MEDS: BENZOYL PEROXIDE 10% GEL 60 GM TUBE TP SCH (21:30)
[2020-04-04] MEDS: JEVITY 1.2 1000 ML LIQUID GT PRN (04:31)
[2020-04-04] MEDS: OMEPRAZOLE 20 MG CAPSULE.DR GT SCH (05:27)
[2020-04-04] MEDS: LORATADINE 10 MG TABLET GT SCH (05:27)
[2020-04-04] MEDS: CHOLECALCIFEROL 1,000 UNIT TABLET GT SCH (05:28)
[2020-04-04 07:41] VITALS: BP 112/56
[2020-04-04] MEDS: [UNRECOGNIZED DRUG - OTHER] GT SCH ×2 (08:30→21:21)
[2020-04-04] MEDS: Z GUARD REMEDY PASTE 57 GM TUBE TOP SCH ×2 (08:30→21:22)
[2020-04-04] MEDS: VITAMINS A AND D OINT TP SCH (08:30)
[2020-04-04] MEDS: BACLOFEN 10 MG TABLET GT SCH ×2 (08:30→21:21)
[2020-04-04] MEDS: HEPARIN SODIUM,PORCINE 5,000 UNITS/ML VIAL SQ SCH ×2 (08:30→21:22)
[2020-04-04] MEDS: [UNRECOGNIZED DRUG - OTHER] XX SCH ×2 (08:31→21:22)
[2020-04-04] MEDS: HYDROGEN PEROXIDE 3% 118 ML BOTTLE TP SCH ×2 (09:00→21:53)
[2020-04-04 19:56] VITALS: BP 102/75
[2020-04-04] MEDS: OMEGA-3 FATTY ACIDS/FISH OIL CAPSULE GT SCH (21:21)
[2020-04-04] MEDS: BENZOYL PEROXIDE 10% GEL 60 GM TUBE TP SCH (21:22)
[2020-04-05] MEDS: JEVITY 1.2 1000 ML LIQUID GT PRN (03:52)
[2020-04-05] MEDS: OMEPRAZOLE 20 MG CAPSULE.DR GT SCH (06:08)
[2020-04-05] MEDS: CHOLECALCIFEROL 1,000 UNIT TABLET GT SCH (06:08)
[2020-04-05] MEDS: LORATADINE 10 MG TABLET GT SCH (06:08)
[2020-04-05 07:41] VITALS: BP 97/67
[2020-04-05] MEDS: HEPARIN SODIUM,PORCINE 5,000 UNITS/ML VIAL SQ SCH ×2 (08:34→21:00)
[2020-04-05] MEDS: BACLOFEN 10 MG TABLET GT SCH ×2 (08:34→21:17)
[2020-04-05] MEDS: [UNRECOGNIZED DRUG - OTHER] GT SCH ×2 (08:34→21:17)
[2020-04-05] MEDS: VITAMINS A AND D OINT TP SCH (08:34)
[2020-04-05] MEDS: [UNRECOGNIZED DRUG - OTHER] XX SCH ×2 (08:34→21:18)
[2020-04-05] MEDS: Z GUARD REMEDY PASTE 57 GM TUBE TOP SCH ×2 (08:34→21:17)
[2020-04-05] MEDS: HYDROGEN PEROXIDE 3% 118 ML BOTTLE TP SCH ×2 (09:49→21:20)
[2020-04-05 20:30] VITALS: BP 94/59
[2020-04-05] MEDS: OMEGA-3 FATTY ACIDS/FISH OIL CAPSULE GT SCH (21:17)
[2020-04-05] MEDS: BENZOYL PEROXIDE 10% GEL 60 GM TUBE TP SCH (21:17)
[2020-04-06] MEDS: JEVITY 1.2 1000 ML LIQUID GT PRN ×2 (01:34→21:00)
[2020-04-06] MEDS: LORATADINE 10 MG TABLET GT SCH (05:44)
[2020-04-06] MEDS: OMEPRAZOLE 20 MG CAPSULE.DR GT SCH (05:44)
[2020-04-06] MEDS: CHOLECALCIFEROL 1,000 UNIT TABLET GT SCH (05:45)
[2020-04-06 07:51] VITALS: BP 119/82
[2020-04-06] MEDS: Z GUARD REMEDY PASTE 57 GM TUBE TOP SCH ×2 (08:29→21:04)
[2020-04-06] MEDS: VITAMINS A AND D OINT TP SCH (08:29)
[2020-04-06] MEDS: [UNRECOGNIZED DRUG - OTHER] XX SCH ×2 (08:29→21:04)
[2020-04-06] MEDS: BACLOFEN 10 MG TABLET GT SCH ×2 (08:29→21:04)
[2020-04-06] MEDS: [UNRECOGNIZED DRUG - OTHER] GT SCH ×2 (08:29→21:04)
[2020-04-06] MEDS: HEPARIN SODIUM,PORCINE 5,000 UNITS/ML VIAL SQ SCH ×2 (08:30→20:47)
[2020-04-06] MEDS: HYDROGEN PEROXIDE 3% 118 ML BOTTLE TP SCH ×2 (09:00→21:00)
[2020-04-06 20:52] VITALS: BP 114/69
[2020-04-06] MEDS: OMEGA-3 FATTY ACIDS/FISH OIL CAPSULE GT SCH (21:04)
[2020-04-06] MEDS: BENZOYL PEROXIDE 10% GEL 60 GM TUBE TP SCH (21:04)
[2020-04-07] MEDS: CHOLECALCIFEROL 1,000 UNIT TABLET GT SCH (05:06)
[2020-04-07] MEDS: OMEPRAZOLE 20 MG CAPSULE.DR GT SCH (05:06)
[2020-04-07] MEDS: LORATADINE 10 MG TABLET GT SCH (05:06)
[2020-04-07 07:41] VITALS: BP 109/73
[2020-04-07] MEDS: [UNRECOGNIZED DRUG - OTHER] GT SCH ×2 (08:26→21:03)
[2020-04-07] MEDS: BACLOFEN 10 MG TABLET GT SCH ×2 (08:26→21:03)
[2020-04-07] MEDS: [UNRECOGNIZED DRUG - OTHER] XX SCH ×2 (08:27→21:05)
[2020-04-07] MEDS: Z GUARD REMEDY PASTE 57 GM TUBE TOP SCH ×2 (08:27→21:05)
[2020-04-07] MEDS: VITAMINS A AND D OINT TP SCH (08:27)
[2020-04-07] MEDS: HEPARIN SODIUM,PORCINE 5,000 UNITS/ML VIAL SQ SCH ×2 (08:27→21:05)
[2020-04-07] MEDS: HYDROGEN PEROXIDE 3% 118 ML BOTTLE TP SCH ×2 (09:00→21:49)
--- NOTE | 2020-04-07 18:40 | NUR ---
Pt stable at this time. No respiratory distress. Video chat provided with the family. Family was so happy and appreciated the effort of the staff.
[2020-04-07 20:10] VITALS: BP 100/66
[2020-04-07] MEDS: OMEGA-3 FATTY ACIDS/FISH OIL CAPSULE GT SCH (21:03)
[2020-04-07] MEDS: BENZOYL PEROXIDE 10% GEL 60 GM TUBE TP SCH (21:05)
[2020-04-08] MEDS: OMEPRAZOLE 20 MG CAPSULE.DR GT SCH (05:12)
[2020-04-08] MEDS: CHOLECALCIFEROL 1,000 UNIT TABLET GT SCH (05:12)
[2020-04-08] MEDS: LORATADINE 10 MG TABLET GT SCH (05:12)
[2020-04-08 07:43] VITALS: BP 126/75
[2020-04-08 08:01] VITALS: BP 126/75
[2020-04-08] MEDS: BACLOFEN 10 MG TABLET GT SCH ×2 (09:43→21:37)
[2020-04-08] MEDS: [UNRECOGNIZED DRUG - OTHER] GT SCH ×2 (09:43→21:37)
[2020-04-08] MEDS: Z GUARD REMEDY PASTE 57 GM TUBE TOP SCH ×2 (09:44→21:37)
[2020-04-08] MEDS: VITAMINS A AND D OINT TP SCH (09:44)
[2020-04-08] MEDS: HYDROGEN PEROXIDE 3% 118 ML BOTTLE TP SCH ×2 (09:44→21:19)
[2020-04-08] MEDS: [UNRECOGNIZED DRUG - OTHER] XX SCH ×2 (09:44→21:37)
[2020-04-08] MEDS: HEPARIN SODIUM,PORCINE 5,000 UNITS/ML VIAL SQ SCH ×2 (09:45→21:36)
[2020-04-08 20:20] VITALS: BP 116/68
[2020-04-08] MEDS: OMEGA-3 FATTY ACIDS/FISH OIL CAPSULE GT SCH (21:37)
[2020-04-08] MEDS: BENZOYL PEROXIDE 10% GEL 60 GM TUBE TP SCH (21:37)
[2020-04-09] MEDS: OMEPRAZOLE 20 MG CAPSULE.DR GT SCH (05:20)
[2020-04-09] MEDS: CHOLECALCIFEROL 1,000 UNIT TABLET GT SCH (05:20)
[2020-04-09] MEDS: LORATADINE 10 MG TABLET GT SCH (05:20)
[2020-04-09 07:58] VITALS: BP 107/55
[2020-04-09] MEDS: [UNRECOGNIZED DRUG - OTHER] XX SCH ×2 (08:40→21:43)
[2020-04-09] MEDS: Z GUARD REMEDY PASTE 57 GM TUBE TOP SCH ×2 (08:40→21:43)
[2020-04-09] MEDS: BACLOFEN 10 MG TABLET GT SCH ×2 (08:40→21:43)
[2020-04-09] MEDS: VITAMINS A AND D OINT TP SCH (08:40)
[2020-04-09] MEDS: [UNRECOGNIZED DRUG - OTHER] GT SCH ×2 (08:40→21:43)
[2020-04-09] MEDS: HEPARIN SODIUM,PORCINE 5,000 UNITS/ML VIAL SQ SCH ×2 (08:41→21:46)
[2020-04-09] MEDS: HYDROGEN PEROXIDE 3% 118 ML BOTTLE TP SCH ×2 (09:05→21:17)
--- NOTE | 2020-04-09 14:52 | NUR ---
INTERDISCIPLINARY PLAN OF CARE CONFERENCE was held today. Patient's parents were not able to participate in the meeting. Dr. Castro and the Interdisciplinary Team reviewed the current plan of care in detail. RN reported on patient's medical condition. No major changes in condition were reported. See RN IDT conference notes. See also all other disciplines IDT notes and physician's progress notes for additional details.
[2020-04-09] MEDS: JEVITY 1.2 1000 ML LIQUID GT PRN (14:57)
--- NOTE | 2020-04-09 15:56 | NUR ---
Pharmacy Update from Today's 04/09/20 IDT meeting VS: Temp 98.9 BP 126/75 HR 69 LABS: (from 11/06/19, no new labs) Wbc 6.2 H/H 13.9/41.1 Plt 144 Na 141 K 3.7 Cl 105 CO2 27 BUN/SCr 10/0.8 BS 168 Ca 8.7 MEDICATION USE REVIEWED: > Pt not on any anti-psych or anti-seizure medications > Pt on Heparin 5000 units q12hr; last plt 144. No signs of bleeding > Pt on Claritin 10mg daily :estimated CrCl is >100ml/min. Dose OK. > PRN MED USAGE: (February) Tylenol for pain used x 0 Tylenol for temp used x 0 Dulcolax used x 0 NEW ORDERS NOTED: > NA Patient was reviewed and discussed in depth at [facility], with no medication issues or concerns noted per staff at this time. No further Rx recommendations at this time, will continue to monitor
[2020-04-09] MEDS: BISACODYL 10 MG SUPP.RECT RC PRN (17:29)
[2020-04-09 19:53] VITALS: BP 105/69
[2020-04-09] MEDS: OMEGA-3 FATTY ACIDS/FISH OIL CAPSULE GT SCH (21:43)
[2020-04-10] MEDS: OMEPRAZOLE 20 MG CAPSULE.DR GT SCH (05:46)
[2020-04-10] MEDS: CHOLECALCIFEROL 1,000 UNIT TABLET GT SCH (05:46)
[2020-04-10] MEDS: LORATADINE 10 MG TABLET GT SCH (05:46)
[2020-04-10] MEDS: HYDROGEN PEROXIDE 3% 118 ML BOTTLE TP SCH ×2 (07:25→21:13)
[2020-04-10 07:36] VITALS: BP 124/79
[2020-04-10] MEDS: HEPARIN SODIUM,PORCINE 5,000 UNITS/ML VIAL SQ SCH ×2 (08:47→21:47)
[2020-04-10] MEDS: VITAMINS A AND D OINT TP SCH (08:48)
[2020-04-10] MEDS: BACLOFEN 10 MG TABLET GT SCH ×2 (08:48→20:22)
[2020-04-10] MEDS: [UNRECOGNIZED DRUG - OTHER] GT SCH ×2 (08:48→20:22)
[2020-04-10] MEDS: [UNRECOGNIZED DRUG - OTHER] XX SCH ×2 (08:48→20:22)
[2020-04-10] MEDS: Z GUARD REMEDY PASTE 57 GM TUBE TOP SCH ×2 (08:48→20:22)
[2020-04-10] MEDS: JEVITY 1.2 1000 ML LIQUID GT PRN (12:24)
[2020-04-10 20:05] VITALS: BP 111/51
[2020-04-10] MEDS: OMEGA-3 FATTY ACIDS/FISH OIL CAPSULE GT SCH (20:22)
[2020-04-11] MEDS: CHOLECALCIFEROL 1,000 UNIT TABLET GT SCH (06:00)
[2020-04-11] MEDS: OMEPRAZOLE 20 MG CAPSULE.DR GT SCH (06:00)
[2020-04-11] MEDS: LORATADINE 10 MG TABLET GT SCH (06:00)
[2020-04-11 07:47] VITALS: BP 111/61
[2020-04-11] MEDS: [UNRECOGNIZED DRUG - OTHER] GT SCH ×2 (08:05→20:57)
[2020-04-11] MEDS: BACLOFEN 10 MG TABLET GT SCH ×2 (08:05→20:57)
[2020-04-11] MEDS: HEPARIN SODIUM,PORCINE 5,000 UNITS/ML VIAL SQ SCH ×2 (08:06→22:19)
[2020-04-11] MEDS: Z GUARD REMEDY PASTE 57 GM TUBE TOP SCH ×2 (08:07→20:57)
[2020-04-11] MEDS: [UNRECOGNIZED DRUG - OTHER] XX SCH ×2 (08:07→20:56)
[2020-04-11] MEDS: VITAMINS A AND D OINT TP SCH (08:07)
[2020-04-11] MEDS: JEVITY 1.2 1000 ML LIQUID GT PRN ×2 (08:08→22:40)
[2020-04-11] MEDS: HYDROGEN PEROXIDE 3% 118 ML BOTTLE TP SCH ×2 (09:00→21:00)
--- NOTE | 2020-04-11 11:09 | NUR ---
CHARU called patient's mother Lizzette [phone] to check in on her and to notify her that patient is due for his annual eye exam. Lizzette was not available, and therefore this CHARU left Lizzette a voicemail message letting her know that the patient is scheduled for his annual eye exam and that some time in the next few days, Dr. Posey would be coming to do patient exams. CHARU's message included asking Lizzette to call this SW back and let her know if Lizzette would like Dr. Posey to complete patient's annual eye exam.
--- NOTE | 2020-04-11 11:23 | NUR ---
Patient's mother Lizzette called this SW back, in response to the voicemail this SW had left Lizzette earlier (see previous SS note). Lizzette stated that she is fine with the patient receiving his annual eye exam. Lizzette also asked this SW if SW could ask nursing to check patient's ears for any possible ear wax build-up, and CHARU stated that she will let the charge nurse know. Lizzette thanked this SW. CHARU checked-in with Lizzette to see how she was doing, and if she had any other concerns. Lizzette stated she and her family were doing well, and that they had no concerns at this time. Lizzette stated that she and her family were just hoping that the visitation restrictions would be lifted soon, so they can visit the patient. CHARU expressed understanding, and reassured Lizzette that as soon as the facility has further instructions from the health department regarding changes in visitation guidelines, that SW would notify Lizzette. Lizzette expressed understanding and thanked CHARU for her time. CHARU met with parts inspector Norma and informed her of Lizzette's request to check patient's ears for any wax build-up.
--- NOTE | 2020-04-11 14:23 | NUR ---
CHARU received a voicemail message from Lian at Dr. Posey's office [phone] Posey will be at this facility on 04/19/2020 in order to see the patient for his annual eye exam.
[2020-04-11 20:00] VITALS: BP_SYST 113; BP_SYST 156; BP_DIAS 65; BP_DIAS 95
[2020-04-11] MEDS: OMEGA-3 FATTY ACIDS/FISH OIL CAPSULE GT SCH (20:57)
[2020-04-12] MEDS: LORATADINE 10 MG TABLET GT SCH (05:02)
[2020-04-12] MEDS: CHOLECALCIFEROL 1,000 UNIT TABLET GT SCH (05:02)
[2020-04-12] MEDS: OMEPRAZOLE 20 MG CAPSULE.DR GT SCH (05:02)
[2020-04-12 07:46] VITALS: BP 121/74
[2020-04-12] MEDS: [UNRECOGNIZED DRUG - OTHER] GT SCH ×2 (08:13→20:08)
[2020-04-12] MEDS: BACLOFEN 10 MG TABLET GT SCH ×2 (08:13→20:08)
[2020-04-12] MEDS: [UNRECOGNIZED DRUG - OTHER] XX SCH ×2 (08:14→20:08)
[2020-04-12] MEDS: VITAMINS A AND D OINT TP SCH (08:14)
[2020-04-12] MEDS: HEPARIN SODIUM,PORCINE 5,000 UNITS/ML VIAL SQ SCH ×2 (08:14→20:15)
[2020-04-12] MEDS: Z GUARD REMEDY PASTE 57 GM TUBE TOP SCH ×2 (08:14→20:08)
[2020-04-12] MEDS: HYDROGEN PEROXIDE 3% 118 ML BOTTLE TP SCH ×2 (09:15→18:57)
[2020-04-12] MEDS: JEVITY 1.2 1000 ML LIQUID GT PRN (16:44)
--- NOTE | 2020-04-12 18:00 | NUR ---
PT. WAS SEEN AND EXAMINED BY DR. BETHEA AND WITH NNO.
[2020-04-12 20:00] VITALS: BP 101/65
[2020-04-12] MEDS: OMEGA-3 FATTY ACIDS/FISH OIL CAPSULE GT SCH (20:08)
[2020-04-13] MEDS: OMEPRAZOLE 20 MG CAPSULE.DR GT SCH (05:56)
[2020-04-13] MEDS: CHOLECALCIFEROL 1,000 UNIT TABLET GT SCH (05:56)
[2020-04-13] MEDS: LORATADINE 10 MG TABLET GT SCH (05:56)
[2020-04-13 07:36] VITALS: BP 118/76
[2020-04-13] MEDS: JEVITY 1.2 1000 ML LIQUID GT PRN (07:49)
[2020-04-13] MEDS: HYDROGEN PEROXIDE 3% 118 ML BOTTLE TP SCH ×2 (07:57→21:53)
[2020-04-13] MEDS: [UNRECOGNIZED DRUG - OTHER] GT SCH ×2 (08:03→21:00)
[2020-04-13] MEDS: BACLOFEN 10 MG TABLET GT SCH ×2 (08:03→21:00)
[2020-04-13] MEDS: HEPARIN SODIUM,PORCINE 5,000 UNITS/ML VIAL SQ SCH ×2 (08:06→21:00)
[2020-04-13] MEDS: [UNRECOGNIZED DRUG - OTHER] XX SCH ×2 (08:06→21:00)
[2020-04-13] MEDS: VITAMINS A AND D OINT TP SCH (08:06)
[2020-04-13] MEDS: Z GUARD REMEDY PASTE 57 GM TUBE TOP SCH ×2 (08:06→21:00)
[2020-04-13 19:32] VITALS: BP 99/64
[2020-04-13] MEDS: OMEGA-3 FATTY ACIDS/FISH OIL CAPSULE GT SCH (21:00)
[2020-04-14] MEDS: CHOLECALCIFEROL 1,000 UNIT TABLET GT SCH (06:10)
[2020-04-14] MEDS: OMEPRAZOLE 20 MG CAPSULE.DR GT SCH (06:10)
[2020-04-14] MEDS: LORATADINE 10 MG TABLET GT SCH (06:10)
[2020-04-14 07:38] VITALS: BP 109/66
[2020-04-14] MEDS: HYDROGEN PEROXIDE 3% 118 ML BOTTLE TP SCH ×2 (08:16→21:16)
[2020-04-14] MEDS: VITAMINS A AND D OINT TP SCH (09:20)
[2020-04-14] MEDS: [UNRECOGNIZED DRUG - OTHER] XX SCH ×2 (09:20→21:00)
[2020-04-14] MEDS: Z GUARD REMEDY PASTE 57 GM TUBE TOP SCH ×2 (09:20→21:00)
[2020-04-14] MEDS: [UNRECOGNIZED DRUG - OTHER] GT SCH ×2 (09:20→21:00)
[2020-04-14] MEDS: HEPARIN SODIUM,PORCINE 5,000 UNITS/ML VIAL SQ SCH ×2 (09:20→21:00)
[2020-04-14] MEDS: BACLOFEN 10 MG TABLET GT SCH ×2 (09:20→21:00)
[2020-04-14 19:46] VITALS: BP 110/71
[2020-04-14] MEDS: OMEGA-3 FATTY ACIDS/FISH OIL CAPSULE GT SCH (21:00)
[2020-04-15] MEDS: LORATADINE 10 MG TABLET GT SCH (06:00)
[2020-04-15] MEDS: CHOLECALCIFEROL 1,000 UNIT TABLET GT SCH (06:01)
[2020-04-15] MEDS: OMEPRAZOLE 20 MG CAPSULE.DR GT SCH (06:01)
[2020-04-15 07:37] VITALS: BP 99/50
[2020-04-15] MEDS: BACLOFEN 10 MG TABLET GT SCH ×2 (08:49→20:56)
[2020-04-15] MEDS: [UNRECOGNIZED DRUG - OTHER] GT SCH ×2 (08:49→20:56)
[2020-04-15] MEDS: Z GUARD REMEDY PASTE 57 GM TUBE TOP SCH ×2 (08:52→20:56)
[2020-04-15] MEDS: HEPARIN SODIUM,PORCINE 5,000 UNITS/ML VIAL SQ SCH ×2 (08:52→21:00)
[2020-04-15] MEDS: VITAMINS A AND D OINT TP SCH (08:52)
[2020-04-15] MEDS: [UNRECOGNIZED DRUG - OTHER] XX SCH ×2 (08:52→20:56)
[2020-04-15] MEDS: HYDROGEN PEROXIDE 3% 118 ML BOTTLE TP SCH ×2 (09:00→21:22)
--- NOTE | 2020-04-15 10:00 | NUR ---
SEEN BY KALA STRANGE N.P. AND WITH NNO.
--- NOTE | 2020-04-15 10:30 | NUR ---
ZOOM MEETING PROVIDED TO PT'S MOM.
[2020-04-15] MEDS: JEVITY 1.2 1000 ML LIQUID GT PRN (14:12)
[2020-04-15 20:30] VITALS: BP 108/69
[2020-04-15] MEDS: OMEGA-3 FATTY ACIDS/FISH OIL CAPSULE GT SCH (20:56)
[2020-04-16] MEDS: OMEPRAZOLE 20 MG CAPSULE.DR GT SCH (06:18)
[2020-04-16] MEDS: CHOLECALCIFEROL 1,000 UNIT TABLET GT SCH (06:18)
[2020-04-16] MEDS: LORATADINE 10 MG TABLET GT SCH (06:18)
[2020-04-16 07:15] VITALS: BP 117/65
[2020-04-16] MEDS: [UNRECOGNIZED DRUG - OTHER] GT SCH ×2 (08:57→21:30)
[2020-04-16] MEDS: BACLOFEN 10 MG TABLET GT SCH ×2 (08:57→21:30)
[2020-04-16] MEDS: HEPARIN SODIUM,PORCINE 5,000 UNITS/ML VIAL SQ SCH ×2 (08:58→21:32)
[2020-04-16] MEDS: VITAMINS A AND D OINT TP SCH (09:00)
[2020-04-16] MEDS: [UNRECOGNIZED DRUG - OTHER] XX SCH ×2 (09:00→21:32)
[2020-04-16] MEDS: HYDROGEN PEROXIDE 3% 118 ML BOTTLE TP SCH ×2 (09:00→21:26)
[2020-04-16] MEDS: Z GUARD REMEDY PASTE 57 GM TUBE TOP SCH ×2 (09:00→21:32)
--- NOTE | 2020-04-16 09:00 | NUR ---
SEEN BY KALA STRANGE N.P. AND WITH NNO.
[2020-04-16 20:45] VITALS: BP 97/54
[2020-04-16] MEDS: OMEGA-3 FATTY ACIDS/FISH OIL CAPSULE GT SCH (21:30)
[2020-04-16] MEDS: JEVITY 1.2 1000 ML LIQUID GT PRN (22:33)
[2020-04-17] MEDS: LORATADINE 10 MG TABLET GT SCH (06:25)
[2020-04-17] MEDS: CHOLECALCIFEROL 1,000 UNIT TABLET GT SCH (06:25)
[2020-04-17] MEDS: OMEPRAZOLE 20 MG CAPSULE.DR GT SCH (06:25)
[2020-04-17 07:43] VITALS: BP 123/71
[2020-04-17] MEDS: HYDROGEN PEROXIDE 3% 118 ML BOTTLE TP SCH ×2 (08:42→21:22)
[2020-04-17] MEDS: VITAMINS A AND D OINT TP SCH (09:00)
[2020-04-17] MEDS: [UNRECOGNIZED DRUG - OTHER] XX SCH ×2 (09:00→20:52)
[2020-04-17] MEDS: Z GUARD REMEDY PASTE 57 GM TUBE TOP SCH ×2 (09:00→20:52)
[2020-04-17] MEDS: [UNRECOGNIZED DRUG - OTHER] GT SCH ×2 (09:59→20:51)
[2020-04-17] MEDS: BACLOFEN 10 MG TABLET GT SCH ×2 (09:59→20:51)
[2020-04-17] MEDS: HEPARIN SODIUM,PORCINE 5,000 UNITS/ML VIAL SQ SCH ×2 (10:00→20:52)
[2020-04-17 20:46] VITALS: BP 103/58
[2020-04-17] MEDS: OMEGA-3 FATTY ACIDS/FISH OIL CAPSULE GT SCH (20:51)
[2020-04-18] MEDS: LORATADINE 10 MG TABLET GT SCH (06:18)
[2020-04-18] MEDS: CHOLECALCIFEROL 1,000 UNIT TABLET GT SCH (06:18)
[2020-04-18] MEDS: OMEPRAZOLE 20 MG CAPSULE.DR GT SCH (06:18)
[2020-04-18 07:47] VITALS: BP 127/66
[2020-04-18] MEDS: HYDROGEN PEROXIDE 3% 118 ML BOTTLE TP SCH ×2 (09:00→19:04)
[2020-04-18] MEDS: HEPARIN SODIUM,PORCINE 5,000 UNITS/ML VIAL SQ SCH ×2 (09:04→21:33)
[2020-04-18] MEDS: [UNRECOGNIZED DRUG - OTHER] GT SCH ×2 (09:04→21:33)
[2020-04-18] MEDS: BACLOFEN 10 MG TABLET GT SCH ×2 (09:04→21:33)
[2020-04-18] MEDS: VITAMINS A AND D OINT TP SCH (09:05)
[2020-04-18] MEDS: [UNRECOGNIZED DRUG - OTHER] XX SCH ×2 (09:05→21:34)
[2020-04-18] MEDS: Z GUARD REMEDY PASTE 57 GM TUBE TOP SCH ×2 (09:05→21:34)
[2020-04-18] MEDS: JEVITY 1.2 1000 ML LIQUID GT PRN (10:35)
[2020-04-18 20:00] VITALS: BP 108/77
[2020-04-18] MEDS: OMEGA-3 FATTY ACIDS/FISH OIL CAPSULE GT SCH (21:33)
[2020-04-19] MEDS: CHOLECALCIFEROL 1,000 UNIT TABLET GT SCH (06:01)
[2020-04-19] MEDS: LORATADINE 10 MG TABLET GT SCH (06:01)
[2020-04-19] MEDS: OMEPRAZOLE 20 MG CAPSULE.DR GT SCH (06:01)
[2020-04-19 07:53] VITALS: BP 116/84
[2020-04-19] MEDS: BACLOFEN 10 MG TABLET GT SCH ×2 (08:43→20:19)
[2020-04-19] MEDS: [UNRECOGNIZED DRUG - OTHER] GT SCH ×2 (08:43→20:19)
[2020-04-19] MEDS: HEPARIN SODIUM,PORCINE 5,000 UNITS/ML VIAL SQ SCH ×2 (08:43→20:20)
[2020-04-19] MEDS: [UNRECOGNIZED DRUG - OTHER] XX SCH ×2 (08:44→20:20)
[2020-04-19] MEDS: Z GUARD REMEDY PASTE 57 GM TUBE TOP SCH ×2 (08:44→20:20)
[2020-04-19] MEDS: VITAMINS A AND D OINT TP SCH (08:44)
[2020-04-19] MEDS: HYDROGEN PEROXIDE 3% 118 ML BOTTLE TP SCH ×2 (09:00→21:15)
--- NOTE | 2020-04-19 11:00 | NUR ---
Seen by Dr. Posey with no new order.
[2020-04-19 20:17] VITALS: BP 121/57
[2020-04-19] MEDS: OMEGA-3 FATTY ACIDS/FISH OIL CAPSULE GT SCH (20:19)
[2020-04-20] MEDS: LORATADINE 10 MG TABLET GT SCH (05:17)
[2020-04-20] MEDS: CHOLECALCIFEROL 1,000 UNIT TABLET GT SCH (05:17)
[2020-04-20] MEDS: OMEPRAZOLE 20 MG CAPSULE.DR GT SCH (05:17)
[2020-04-20 07:44] VITALS: BP 127/43
[2020-04-20] MEDS: BACLOFEN 10 MG TABLET GT SCH ×2 (08:21→20:20)
[2020-04-20] MEDS: HEPARIN SODIUM,PORCINE 5,000 UNITS/ML VIAL SQ SCH ×2 (08:22→20:21)
[2020-04-20] MEDS: [UNRECOGNIZED DRUG - OTHER] XX SCH ×2 (08:22→20:21)
[2020-04-20] MEDS: Z GUARD REMEDY PASTE 57 GM TUBE TOP SCH ×2 (08:22→20:21)
[2020-04-20] MEDS: [UNRECOGNIZED DRUG - OTHER] GT SCH ×2 (08:22→20:20)
[2020-04-20] MEDS: VITAMINS A AND D OINT TP SCH (08:22)
[2020-04-20] MEDS: HYDROGEN PEROXIDE 3% 118 ML BOTTLE TP SCH ×2 (09:00→21:15)
[2020-04-20] MEDS: JEVITY 1.2 1000 ML LIQUID GT PRN (16:16)
[2020-04-20 20:17] VITALS: BP 112/76
[2020-04-20] MEDS: OMEGA-3 FATTY ACIDS/FISH OIL CAPSULE GT SCH (20:20)
[2020-04-21] MEDS: LORATADINE 10 MG TABLET GT SCH (05:08)
[2020-04-21] MEDS: OMEPRAZOLE 20 MG CAPSULE.DR GT SCH (05:08)
[2020-04-21] MEDS: CHOLECALCIFEROL 1,000 UNIT TABLET GT SCH (05:08)
[2020-04-21 07:41] VITALS: BP 98/52
[2020-04-21] MEDS: HYDROGEN PEROXIDE 3% 118 ML BOTTLE TP SCH ×2 (09:00→21:15)
[2020-04-21] MEDS: [UNRECOGNIZED DRUG - OTHER] GT SCH ×2 (09:14→20:19)
[2020-04-21] MEDS: BACLOFEN 10 MG TABLET GT SCH ×2 (09:14→20:19)
[2020-04-21] MEDS: VITAMINS A AND D OINT TP SCH (09:15)
[2020-04-21] MEDS: Z GUARD REMEDY PASTE 57 GM TUBE TOP SCH ×2 (09:15→20:19)
[2020-04-21] MEDS: HEPARIN SODIUM,PORCINE 5,000 UNITS/ML VIAL SQ SCH ×2 (09:15→20:21)
[2020-04-21] MEDS: [UNRECOGNIZED DRUG - OTHER] XX SCH ×2 (09:15→20:19)
--- NOTE | 2020-04-21 10:49 | NUR ---
Seen by Darcy MARRUFO no new orders noted.
[2020-04-21] MEDS: OMEGA-3 FATTY ACIDS/FISH OIL CAPSULE GT SCH (20:19)
[2020-04-21 20:50] VITALS: BP 107/73
[2020-04-22] MEDS: OMEPRAZOLE 20 MG CAPSULE.DR GT SCH (05:26)
[2020-04-22] MEDS: CHOLECALCIFEROL 1,000 UNIT TABLET GT SCH (05:26)
[2020-04-22] MEDS: LORATADINE 10 MG TABLET GT SCH (05:26)
[2020-04-22 07:24] VITALS: BP 122/51
[2020-04-22] MEDS: HEPARIN SODIUM,PORCINE 5,000 UNITS/ML VIAL SQ SCH ×2 (09:00→21:00)
[2020-04-22] MEDS: [UNRECOGNIZED DRUG - OTHER] XX SCH ×2 (09:00→20:34)
[2020-04-22] MEDS: BACLOFEN 10 MG TABLET GT SCH ×2 (09:00→20:34)
[2020-04-22] MEDS: HYDROGEN PEROXIDE 3% 118 ML BOTTLE TP SCH ×2 (09:00→21:22)
[2020-04-22] MEDS: [UNRECOGNIZED DRUG - OTHER] GT SCH ×2 (09:00→20:34)
[2020-04-22] MEDS: VITAMINS A AND D OINT TP SCH (09:00)
[2020-04-22] MEDS: Z GUARD REMEDY PASTE 57 GM TUBE TOP SCH ×2 (09:00→20:34)
[2020-04-22] MEDS: JEVITY 1.2 1000 ML LIQUID GT PRN (17:59)
[2020-04-22] MEDS: OMEGA-3 FATTY ACIDS/FISH OIL CAPSULE GT SCH (20:34)
[2020-04-22 20:58] VITALS: BP 102/62
[2020-04-23] MEDS: OMEPRAZOLE 20 MG CAPSULE.DR GT SCH (06:45)
[2020-04-23] MEDS: CHOLECALCIFEROL 1,000 UNIT TABLET GT SCH (06:45)
[2020-04-23] MEDS: LORATADINE 10 MG TABLET GT SCH (06:45)
[2020-04-23 07:28] VITALS: BP 106/50
[2020-04-23] MEDS: [UNRECOGNIZED DRUG - OTHER] GT SCH ×2 (08:43→20:33)
[2020-04-23] MEDS: BACLOFEN 10 MG TABLET GT SCH ×2 (08:43→20:33)
[2020-04-23] MEDS: [UNRECOGNIZED DRUG - OTHER] XX SCH ×2 (08:44→20:36)
[2020-04-23] MEDS: VITAMINS A AND D OINT TP SCH (08:44)
[2020-04-23] MEDS: Z GUARD REMEDY PASTE 57 GM TUBE TOP SCH ×2 (08:44→20:36)
[2020-04-23] MEDS: HEPARIN SODIUM,PORCINE 5,000 UNITS/ML VIAL SQ SCH ×2 (08:45→20:36)
[2020-04-23] MEDS: HYDROGEN PEROXIDE 3% 118 ML BOTTLE TP SCH ×2 (09:33→21:51)
--- NOTE | 2020-04-23 14:01 | NUR ---
Pt. v/s wnl. No distress at this time. Video chat provided with the family (mom).
[2020-04-23 20:12] VITALS: BP 102/59
[2020-04-23] MEDS: OMEGA-3 FATTY ACIDS/FISH OIL CAPSULE GT SCH (20:33)
[2020-04-24] MEDS: LORATADINE 10 MG TABLET GT SCH (05:54)
[2020-04-24] MEDS: CHOLECALCIFEROL 1,000 UNIT TABLET GT SCH (05:54)
[2020-04-24] MEDS: OMEPRAZOLE 20 MG CAPSULE.DR GT SCH (05:54)
[2020-04-24 07:37] VITALS: BP 116/71
[2020-04-24] MEDS: HYDROGEN PEROXIDE 3% 118 ML BOTTLE TP SCH ×2 (09:00→21:47)
[2020-04-24] MEDS: VITAMINS A AND D OINT TP SCH (09:07)
[2020-04-24] MEDS: BACLOFEN 10 MG TABLET GT SCH ×2 (09:07→20:59)
[2020-04-24] MEDS: Z GUARD REMEDY PASTE 57 GM TUBE TOP SCH ×2 (09:07→21:03)
[2020-04-24] MEDS: [UNRECOGNIZED DRUG - OTHER] GT SCH ×2 (09:07→21:00)
[2020-04-24] MEDS: [UNRECOGNIZED DRUG - OTHER] XX SCH ×2 (09:08→21:03)
[2020-04-24] MEDS: HEPARIN SODIUM,PORCINE 5,000 UNITS/ML VIAL SQ SCH ×2 (09:15→21:03)
[2020-04-24] MEDS: JEVITY 1.2 1000 ML LIQUID GT PRN (11:41)
[2020-04-24 20:08] VITALS: BP 103/68
[2020-04-24] MEDS: OMEGA-3 FATTY ACIDS/FISH OIL CAPSULE GT SCH (20:59)
[2020-04-25] MEDS: LORATADINE 10 MG TABLET GT SCH (06:05)
[2020-04-25] MEDS: CHOLECALCIFEROL 1,000 UNIT TABLET GT SCH (06:05)
[2020-04-25] MEDS: OMEPRAZOLE 20 MG CAPSULE.DR GT SCH (06:05)
[2020-04-25 07:19] VITALS: BP 117/74
[2020-04-25] MEDS: [UNRECOGNIZED DRUG - OTHER] XX SCH ×2 (08:36→20:49)
[2020-04-25] MEDS: Z GUARD REMEDY PASTE 57 GM TUBE TOP SCH ×2 (08:36→20:49)
[2020-04-25] MEDS: [UNRECOGNIZED DRUG - OTHER] GT SCH ×2 (08:36→20:46)
[2020-04-25] MEDS: VITAMINS A AND D OINT TP SCH (08:36)
[2020-04-25] MEDS: HEPARIN SODIUM,PORCINE 5,000 UNITS/ML VIAL SQ SCH ×2 (08:39→20:49)
[2020-04-25] MEDS: HYDROGEN PEROXIDE 3% 118 ML BOTTLE TP SCH ×2 (09:00→21:22)
[2020-04-25] MEDS: BACLOFEN 10 MG TABLET GT SCH ×2 (09:15→20:46)
[2020-04-25] MEDS: JEVITY 1.2 1000 ML LIQUID GT PRN (10:13)
[2020-04-25 20:00] VITALS: BP 103/59
[2020-04-25] MEDS: OMEGA-3 FATTY ACIDS/FISH OIL CAPSULE GT SCH (20:46)
[2020-04-26] MEDS: CHOLECALCIFEROL 1,000 UNIT TABLET GT SCH (05:09)
[2020-04-26] MEDS: OMEPRAZOLE 20 MG CAPSULE.DR GT SCH (05:09)
[2020-04-26] MEDS: LORATADINE 10 MG TABLET GT SCH (05:09)
[2020-04-26 07:41] VITALS: BP 113/85
[2020-04-26] MEDS: BACLOFEN 10 MG TABLET GT SCH ×2 (08:22→21:19)
[2020-04-26] MEDS: VITAMINS A AND D OINT TP SCH (08:22)
[2020-04-26] MEDS: Z GUARD REMEDY PASTE 57 GM TUBE TOP SCH ×2 (08:22→21:20)
[2020-04-26] MEDS: [UNRECOGNIZED DRUG - OTHER] XX SCH ×2 (08:22→21:20)
[2020-04-26] MEDS: [UNRECOGNIZED DRUG - OTHER] GT SCH ×2 (08:22→21:19)
--- NOTE | 2020-04-26 08:53 | NUR ---
SEEN AND EXAMINED BY KALA STRANGE N.P. AND WITH NNO.
[2020-04-26] MEDS: HYDROGEN PEROXIDE 3% 118 ML BOTTLE TP SCH ×2 (09:00→21:02)
[2020-04-26] MEDS: HEPARIN SODIUM,PORCINE 5,000 UNITS/ML VIAL SQ SCH ×2 (09:08→21:00)
[2020-04-26] MEDS: JEVITY 1.2 1000 ML LIQUID GT PRN (11:12)
[2020-04-26 20:00] VITALS: BP 119/69
[2020-04-26] MEDS: OMEGA-3 FATTY ACIDS/FISH OIL CAPSULE GT SCH (21:19)
[2020-04-27] MEDS: OMEPRAZOLE 20 MG CAPSULE.DR GT SCH (06:08)
[2020-04-27] MEDS: CHOLECALCIFEROL 1,000 UNIT TABLET GT SCH (06:08)
[2020-04-27] MEDS: LORATADINE 10 MG TABLET GT SCH (06:08)
[2020-04-27 07:49] VITALS: BP 101/70
[2020-04-27] MEDS: VITAMINS A AND D OINT TP SCH (08:11)
[2020-04-27] MEDS: [UNRECOGNIZED DRUG - OTHER] XX SCH ×2 (08:11→20:44)
[2020-04-27] MEDS: Z GUARD REMEDY PASTE 57 GM TUBE TOP SCH ×2 (08:11→20:44)
[2020-04-27] MEDS: [UNRECOGNIZED DRUG - OTHER] GT SCH ×2 (08:11→20:43)
[2020-04-27] MEDS: HEPARIN SODIUM,PORCINE 5,000 UNITS/ML VIAL SQ SCH ×2 (08:13→20:45)
[2020-04-27] MEDS: BACLOFEN 10 MG TABLET GT SCH ×2 (08:16→20:42)
[2020-04-27] MEDS: HYDROGEN PEROXIDE 3% 118 ML BOTTLE TP SCH ×2 (09:13→20:44)
[2020-04-27 20:00] VITALS: BP 110/56
[2020-04-27] MEDS: OMEGA-3 FATTY ACIDS/FISH OIL CAPSULE GT SCH (20:42)
[2020-04-28] MEDS: JEVITY 1.2 1000 ML LIQUID GT PRN (01:40)
[2020-04-28] MEDS: LORATADINE 10 MG TABLET GT SCH (05:21)
[2020-04-28] MEDS: OMEPRAZOLE 20 MG CAPSULE.DR GT SCH (05:21)
[2020-04-28] MEDS: CHOLECALCIFEROL 1,000 UNIT TABLET GT SCH (05:21)
[2020-04-28 07:41] VITALS: BP 114/61
[2020-04-28] MEDS: Z GUARD REMEDY PASTE 57 GM TUBE TOP SCH ×2 (08:22→21:51)
[2020-04-28] MEDS: VITAMINS A AND D OINT TP SCH (08:22)
[2020-04-28] MEDS: HEPARIN SODIUM,PORCINE 5,000 UNITS/ML VIAL SQ SCH ×2 (08:22→21:54)
[2020-04-28] MEDS: BACLOFEN 10 MG TABLET GT SCH ×2 (08:22→21:51)
[2020-04-28] MEDS: [UNRECOGNIZED DRUG - OTHER] GT SCH ×2 (08:22→21:51)
[2020-04-28] MEDS: [UNRECOGNIZED DRUG - OTHER] XX SCH ×2 (08:22→21:51)
[2020-04-28] MEDS: HYDROGEN PEROXIDE 3% 118 ML BOTTLE TP SCH ×2 (09:34→21:06)
[2020-04-28 20:10] VITALS: BP 107/76
[2020-04-28] MEDS: OMEGA-3 FATTY ACIDS/FISH OIL CAPSULE GT SCH (21:51)
[2020-04-29] MEDS: LORATADINE 10 MG TABLET GT SCH (06:02)
[2020-04-29] MEDS: OMEPRAZOLE 20 MG CAPSULE.DR GT SCH (06:02)
[2020-04-29] MEDS: CHOLECALCIFEROL 1,000 UNIT TABLET GT SCH (06:02)
[2020-04-29 07:38] VITALS: BP 108/55
[2020-04-29] MEDS: BACLOFEN 10 MG TABLET GT SCH ×2 (08:03→21:00)
[2020-04-29] MEDS: [UNRECOGNIZED DRUG - OTHER] GT SCH ×2 (08:03→21:00)
[2020-04-29] MEDS: VITAMINS A AND D OINT TP SCH (08:06)
[2020-04-29] MEDS: [UNRECOGNIZED DRUG - OTHER] XX SCH ×2 (08:06→21:00)
[2020-04-29] MEDS: HEPARIN SODIUM,PORCINE 5,000 UNITS/ML VIAL SQ SCH ×2 (08:06→21:00)
[2020-04-29] MEDS: Z GUARD REMEDY PASTE 57 GM TUBE TOP SCH ×2 (08:06→21:00)
[2020-04-29] MEDS: HYDROGEN PEROXIDE 3% 118 ML BOTTLE TP SCH ×2 (08:07→21:18)
--- NOTE | 2020-04-29 11:00 | NUR ---
PROVIDED ZOOM WITH MOTHER.
[2020-04-29 20:30] VITALS: BP 99/60
[2020-04-29] MEDS: OMEGA-3 FATTY ACIDS/FISH OIL CAPSULE GT SCH (21:00)
[2020-04-30] MEDS: CHOLECALCIFEROL 1,000 UNIT TABLET GT SCH (06:12)
[2020-04-30] MEDS: OMEPRAZOLE 20 MG CAPSULE.DR GT SCH (06:12)
[2020-04-30] MEDS: LORATADINE 10 MG TABLET GT SCH (06:12)
[2020-04-30 07:27] VITALS: BP 93/41
[2020-04-30 08:00] VITALS: BP 111/79
[2020-04-30] MEDS: Z GUARD REMEDY PASTE 57 GM TUBE TOP SCH ×2 (08:48→20:46)
[2020-04-30] MEDS: [UNRECOGNIZED DRUG - OTHER] XX SCH ×2 (08:48→20:46)
[2020-04-30] MEDS: [UNRECOGNIZED DRUG - OTHER] GT SCH ×2 (08:48→20:45)
[2020-04-30] MEDS: BACLOFEN 10 MG TABLET GT SCH ×2 (08:48→20:45)
[2020-04-30] MEDS: VITAMINS A AND D OINT TP SCH (08:48)
[2020-04-30] MEDS: HYDROGEN PEROXIDE 3% 118 ML BOTTLE TP SCH ×2 (09:00→21:14)
[2020-04-30] MEDS: HEPARIN SODIUM,PORCINE 5,000 UNITS/ML VIAL SQ SCH ×2 (09:05→20:49)
[2020-04-30] MEDS: JEVITY 1.2 1000 ML LIQUID GT PRN (15:00)
[2020-04-30 20:00] VITALS: BP 107/77
[2020-04-30] MEDS: OMEGA-3 FATTY ACIDS/FISH OIL CAPSULE GT SCH (20:45)
[2020-05-01] MEDS: CHOLECALCIFEROL 1,000 UNIT TABLET GT SCH (05:51)
[2020-05-01] MEDS: LORATADINE 10 MG TABLET GT SCH (05:51)
[2020-05-01] MEDS: OMEPRAZOLE 20 MG CAPSULE.DR GT SCH (05:51)
[2020-05-01 07:44] VITALS: BP 113/68
[2020-05-01] MEDS: HYDROGEN PEROXIDE 3% 118 ML BOTTLE TP SCH ×2 (08:16→21:00)
[2020-05-01] MEDS: [UNRECOGNIZED DRUG - OTHER] GT SCH ×2 (08:39→21:13)
[2020-05-01] MEDS: BACLOFEN 10 MG TABLET GT SCH ×2 (08:39→21:13)
[2020-05-01] MEDS: HEPARIN SODIUM,PORCINE 5,000 UNITS/ML VIAL SQ SCH ×2 (08:40→21:15)
[2020-05-01] MEDS: [UNRECOGNIZED DRUG - OTHER] XX SCH ×2 (08:42→21:15)
[2020-05-01] MEDS: VITAMINS A AND D OINT TP SCH (08:42)
[2020-05-01] MEDS: Z GUARD REMEDY PASTE 57 GM TUBE TOP SCH ×2 (08:42→21:15)
[2020-05-01] MEDS: JEVITY 1.2 1000 ML LIQUID GT PRN (16:33)
[2020-05-01 20:00] VITALS: BP 103/70
[2020-05-01] MEDS: OMEGA-3 FATTY ACIDS/FISH OIL CAPSULE GT SCH (21:13)
[2020-05-02] MEDS: CHOLECALCIFEROL 1,000 UNIT TABLET GT SCH (06:16)
[2020-05-02] MEDS: LORATADINE 10 MG TABLET GT SCH (06:16)
[2020-05-02] MEDS: OMEPRAZOLE 20 MG CAPSULE.DR GT SCH (06:16)
[2020-05-02 07:41] VITALS: BP 120/60
[2020-05-02] MEDS: [UNRECOGNIZED DRUG - OTHER] GT SCH ×2 (08:14→20:45)
[2020-05-02] MEDS: BACLOFEN 10 MG TABLET GT SCH ×2 (08:14→20:45)
[2020-05-02] MEDS: HEPARIN SODIUM,PORCINE 5,000 UNITS/ML VIAL SQ SCH ×2 (08:24→20:42)
[2020-05-02] MEDS: [UNRECOGNIZED DRUG - OTHER] XX SCH ×2 (08:24→20:45)
[2020-05-02] MEDS: Z GUARD REMEDY PASTE 57 GM TUBE TOP SCH ×2 (08:24→20:45)
[2020-05-02] MEDS: VITAMINS A AND D OINT TP SCH (08:24)
[2020-05-02] MEDS: HYDROGEN PEROXIDE 3% 118 ML BOTTLE TP SCH ×2 (09:29→21:36)
[2020-05-02] MEDS: JEVITY 1.2 1000 ML LIQUID GT PRN (11:42)
[2020-05-02 20:43] VITALS: BP 105/72
[2020-05-02] MEDS: OMEGA-3 FATTY ACIDS/FISH OIL CAPSULE GT SCH (20:45)
--- NOTE | 2020-05-02 21:48 | NUR ---
NOTIFIED RESPONSIBLE LIBERTARIAN, ZHANG GARCIA, OF COVID-19 POSSIBLE EXPOSURE AND TESTING PLAN. RESPONSIBLE LIBERTARIAN VERBALIZED UNDERSTANDING.
--- NOTE | 2020-05-03 02:00 | NUR ---
New order for COVID-19 test per [facility] COVID-19 requirement.
[2020-05-03] MEDS: JEVITY 1.2 1000 ML LIQUID GT PRN (04:22)
[2020-05-03] MEDS: LORATADINE 10 MG TABLET GT SCH (06:29)
[2020-05-03] MEDS: CHOLECALCIFEROL 1,000 UNIT TABLET GT SCH (06:29)
[2020-05-03] MEDS: OMEPRAZOLE 20 MG CAPSULE.DR GT SCH (06:29)
[2020-05-03 08:29] VITALS: BP 107/65
[2020-05-03] MEDS: [UNRECOGNIZED DRUG - OTHER] GT SCH ×2 (08:33→21:18)
[2020-05-03] MEDS: HEPARIN SODIUM,PORCINE 5,000 UNITS/ML VIAL SQ SCH ×2 (08:33→21:19)
[2020-05-03] MEDS: BACLOFEN 10 MG TABLET GT SCH ×2 (08:33→21:18)
[2020-05-03] MEDS: Z GUARD REMEDY PASTE 57 GM TUBE TOP SCH ×2 (08:33→21:18)
[2020-05-03] MEDS: VITAMINS A AND D OINT TP SCH (08:34)
[2020-05-03] MEDS: [UNRECOGNIZED DRUG - OTHER] XX SCH ×2 (08:34→21:18)
[2020-05-03] MEDS: HYDROGEN PEROXIDE 3% 118 ML BOTTLE TP SCH ×2 (09:00→21:15)
[2020-05-03] MEDS: OMEGA-3 FATTY ACIDS/FISH OIL CAPSULE GT SCH (21:18)
[2020-05-03 22:26] VITALS: BP 132/75
[2020-05-04] MEDS: JEVITY 1.2 1000 ML LIQUID GT PRN ×2 (00:23→20:28)
[2020-05-04] MEDS: OMEPRAZOLE 20 MG CAPSULE.DR GT SCH (05:15)
[2020-05-04] MEDS: LORATADINE 10 MG TABLET GT SCH (05:15)
[2020-05-04] MEDS: CHOLECALCIFEROL 1,000 UNIT TABLET GT SCH (05:15)
[2020-05-04 07:36] VITALS: BP 113/76
[2020-05-04] MEDS: BACLOFEN 10 MG TABLET GT SCH ×2 (08:35→20:28)
[2020-05-04] MEDS: Z GUARD REMEDY PASTE 57 GM TUBE TOP SCH ×2 (08:36→20:28)
[2020-05-04] MEDS: [UNRECOGNIZED DRUG - OTHER] GT SCH ×2 (08:36→20:28)
[2020-05-04] MEDS: HYDROGEN PEROXIDE 3% 118 ML BOTTLE TP SCH ×2 (08:37→21:00)
[2020-05-04] MEDS: VITAMINS A AND D OINT TP SCH (08:37)
[2020-05-04] MEDS: [UNRECOGNIZED DRUG - OTHER] XX SCH ×2 (08:37→20:28)
[2020-05-04] MEDS: HEPARIN SODIUM,PORCINE 5,000 UNITS/ML VIAL SQ SCH ×2 (08:39→21:00)
[2020-05-04] MEDS: OMEGA-3 FATTY ACIDS/FISH OIL CAPSULE GT SCH (20:28)
[2020-05-04 23:07] VITALS: BP 98/63
[2020-05-05] MEDS: CHOLECALCIFEROL 1,000 UNIT TABLET GT SCH (05:38)
[2020-05-05] MEDS: LORATADINE 10 MG TABLET GT SCH (05:38)
[2020-05-05] MEDS: OMEPRAZOLE 20 MG CAPSULE.DR GT SCH (05:38)
[2020-05-05 07:43] VITALS: BP 111/66
[2020-05-05] MEDS: [UNRECOGNIZED DRUG - OTHER] GT SCH ×2 (08:05→21:23)
[2020-05-05] MEDS: Z GUARD REMEDY PASTE 57 GM TUBE TOP SCH ×2 (08:05→21:24)
[2020-05-05] MEDS: BACLOFEN 10 MG TABLET GT SCH ×2 (08:05→21:23)
[2020-05-05] MEDS: HEPARIN SODIUM,PORCINE 5,000 UNITS/ML VIAL SQ SCH ×2 (08:05→21:00)
[2020-05-05] MEDS: VITAMINS A AND D OINT TP SCH (08:06)
[2020-05-05] MEDS: [UNRECOGNIZED DRUG - OTHER] XX SCH ×2 (08:06→21:24)
[2020-05-05] MEDS: HYDROGEN PEROXIDE 3% 118 ML BOTTLE TP SCH ×2 (09:10→21:21)
[2020-05-05] MEDS: JEVITY 1.2 1000 ML LIQUID GT PRN (11:53)
[2020-05-05] MEDS: OMEGA-3 FATTY ACIDS/FISH OIL CAPSULE GT SCH (21:23)
[2020-05-05 23:26] VITALS: BP 98/66
[2020-05-06] MEDS: LORATADINE 10 MG TABLET GT SCH (06:29)
[2020-05-06] MEDS: CHOLECALCIFEROL 1,000 UNIT TABLET GT SCH (06:29)
[2020-05-06] MEDS: OMEPRAZOLE 20 MG CAPSULE.DR GT SCH (06:29)
[2020-05-06] MEDS: HYDROGEN PEROXIDE 3% 118 ML BOTTLE TP SCH ×2 (07:08→21:00)
[2020-05-06 07:47] VITALS: BP 117/75
[2020-05-06 07:56] VITALS: BP 117/75
[2020-05-06] MEDS: BACLOFEN 10 MG TABLET GT SCH ×2 (08:25→21:07)
[2020-05-06] MEDS: Z GUARD REMEDY PASTE 57 GM TUBE TOP SCH ×2 (08:26→21:07)
[2020-05-06] MEDS: VITAMINS A AND D OINT TP SCH (08:26)
[2020-05-06] MEDS: [UNRECOGNIZED DRUG - OTHER] XX SCH ×2 (08:26→21:07)
[2020-05-06] MEDS: [UNRECOGNIZED DRUG - OTHER] GT SCH ×2 (08:26→21:07)
[2020-05-06] MEDS: HEPARIN SODIUM,PORCINE 5,000 UNITS/ML VIAL SQ SCH ×2 (08:26→21:00)
[2020-05-06 20:09] VITALS: BP 110/66
[2020-05-06] MEDS: OMEGA-3 FATTY ACIDS/FISH OIL CAPSULE GT SCH (21:07)
[2020-05-07] MEDS: CHOLECALCIFEROL 1,000 UNIT TABLET GT SCH (05:34)
[2020-05-07] MEDS: OMEPRAZOLE 20 MG CAPSULE.DR GT SCH (05:34)
[2020-05-07] MEDS: LORATADINE 10 MG TABLET GT SCH (05:34)
[2020-05-07 07:34] VITALS: BP 110/58
[2020-05-07] MEDS: BACLOFEN 10 MG TABLET GT SCH ×2 (08:41→20:35)
[2020-05-07] MEDS: [UNRECOGNIZED DRUG - OTHER] GT SCH ×2 (08:41→20:35)
[2020-05-07] MEDS: [UNRECOGNIZED DRUG - OTHER] XX SCH ×2 (08:42→20:36)
[2020-05-07] MEDS: VITAMINS A AND D OINT TP SCH (08:42)
[2020-05-07] MEDS: Z GUARD REMEDY PASTE 57 GM TUBE TOP SCH ×2 (08:42→20:36)
[2020-05-07] MEDS: HEPARIN SODIUM,PORCINE 5,000 UNITS/ML VIAL SQ SCH ×2 (08:42→20:36)
[2020-05-07] MEDS: HYDROGEN PEROXIDE 3% 118 ML BOTTLE TP SCH ×2 (09:46→21:08)
--- NOTE | 2020-05-07 16:20 | NUR ---
Patient's mother is aware of COVID-19 testing results. Patient is negative.
--- NOTE | 2020-05-07 16:54 | NUR ---
INTERDISCIPLINARY PLAN OF CARE CONFERENCE was held today. Patient's parents were not available to participate in the meeting. Dr. Castro and the Interdisciplinary team reviewed the current plan of care in detail. RN reported on patient's current medical condition, stating that there have been no changes in condition. See RN IDT conference notes. See also all other disciplines IDT notes and physician's progress notes for additional details.
[2020-05-07 20:01] VITALS: BP 114/59
[2020-05-07] MEDS: OMEGA-3 FATTY ACIDS/FISH OIL CAPSULE GT SCH (20:35)
[2020-05-08] MEDS: JEVITY 1.2 1000 ML LIQUID GT PRN (01:59)
[2020-05-08] MEDS: OMEPRAZOLE 20 MG CAPSULE.DR GT SCH (05:48)
[2020-05-08] MEDS: CHOLECALCIFEROL 1,000 UNIT TABLET GT SCH (05:48)
[2020-05-08] MEDS: LORATADINE 10 MG TABLET GT SCH (05:48)
[2020-05-08 07:35] VITALS: BP 121/59
[2020-05-08] MEDS: [UNRECOGNIZED DRUG - OTHER] GT SCH ×2 (08:02→20:46)
[2020-05-08] MEDS: BACLOFEN 10 MG TABLET GT SCH ×2 (08:02→20:46)
[2020-05-08] MEDS: HEPARIN SODIUM,PORCINE 5,000 UNITS/ML VIAL SQ SCH ×2 (08:03→20:47)
[2020-05-08] MEDS: Z GUARD REMEDY PASTE 57 GM TUBE TOP SCH ×2 (08:03→20:47)
[2020-05-08] MEDS: VITAMINS A AND D OINT TP SCH (08:04)
[2020-05-08] MEDS: [UNRECOGNIZED DRUG - OTHER] XX SCH ×2 (08:04→20:47)
[2020-05-08] MEDS: HYDROGEN PEROXIDE 3% 118 ML BOTTLE TP SCH ×2 (08:34→21:04)
--- NOTE | 2020-05-08 16:46 | NUR ---
New order for COVID-19 test per [facility] COVID-19 requirement.
[2020-05-08 20:24] VITALS: BP 102/62
[2020-05-08] MEDS: OMEGA-3 FATTY ACIDS/FISH OIL CAPSULE GT SCH (20:46)
--- NOTE | 2020-05-08 20:47 | NUR ---
shaquille paz n.p. was in, no new orders.
[2020-05-09] MEDS: JEVITY 1.2 1000 ML LIQUID GT PRN ×2 (00:58→21:33)
[2020-05-09] MEDS: OMEPRAZOLE 20 MG CAPSULE.DR GT SCH (05:56)
[2020-05-09] MEDS: CHOLECALCIFEROL 1,000 UNIT TABLET GT SCH (05:56)
[2020-05-09] MEDS: LORATADINE 10 MG TABLET GT SCH (05:56)
[2020-05-09] MEDS: HYDROGEN PEROXIDE 3% 118 ML BOTTLE TP SCH ×2 (07:36→21:00)
[2020-05-09 07:52] VITALS: BP 91/50
[2020-05-09] MEDS: BACLOFEN 10 MG TABLET GT SCH ×2 (09:13→21:25)
[2020-05-09] MEDS: [UNRECOGNIZED DRUG - OTHER] GT SCH ×2 (09:13→21:25)
[2020-05-09] MEDS: VITAMINS A AND D OINT TP SCH (09:15)
[2020-05-09] MEDS: [UNRECOGNIZED DRUG - OTHER] XX SCH ×2 (09:15→21:26)
[2020-05-09] MEDS: Z GUARD REMEDY PASTE 57 GM TUBE TOP SCH ×2 (09:15→21:26)
[2020-05-09] MEDS: HEPARIN SODIUM,PORCINE 5,000 UNITS/ML VIAL SQ SCH ×2 (09:16→21:26)
--- NOTE | 2020-05-09 19:04 | NUR ---
PT'S MOTHER AWARE OF COVID 19 TESTING TOMORROW AND IN AGREEMENT.
[2020-05-09 19:53] VITALS: BP 107/63
[2020-05-09] MEDS: OMEGA-3 FATTY ACIDS/FISH OIL CAPSULE GT SCH (21:25)
[2020-05-10] MEDS: LORATADINE 10 MG TABLET GT SCH (06:11)
[2020-05-10] MEDS: CHOLECALCIFEROL 1,000 UNIT TABLET GT SCH (06:11)
[2020-05-10] MEDS: OMEPRAZOLE 20 MG CAPSULE.DR GT SCH (06:11)
[2020-05-10 08:00] VITALS: BP 123/51
[2020-05-10] MEDS: BACLOFEN 10 MG TABLET GT SCH ×2 (08:34→20:28)
[2020-05-10] MEDS: [UNRECOGNIZED DRUG - OTHER] GT SCH ×2 (08:34→20:28)
[2020-05-10] MEDS: VITAMINS A AND D OINT TP SCH (08:35)
[2020-05-10] MEDS: [UNRECOGNIZED DRUG - OTHER] XX SCH ×2 (08:35→20:28)
[2020-05-10] MEDS: Z GUARD REMEDY PASTE 57 GM TUBE TOP SCH ×2 (08:35→20:28)
[2020-05-10] MEDS: HEPARIN SODIUM,PORCINE 5,000 UNITS/ML VIAL SQ SCH ×2 (08:35→20:26)
[2020-05-10] MEDS: HYDROGEN PEROXIDE 3% 118 ML BOTTLE TP SCH ×2 (09:13→21:55)
[2020-05-10] MEDS: JEVITY 1.2 1000 ML LIQUID GT PRN (17:11)
[2020-05-10] MEDS: OMEGA-3 FATTY ACIDS/FISH OIL CAPSULE GT SCH (20:28)
[2020-05-10 20:58] VITALS: BP 110/72
[2020-05-11] MEDS: LORATADINE 10 MG TABLET GT SCH (05:45)
[2020-05-11] MEDS: OMEPRAZOLE 20 MG CAPSULE.DR GT SCH (05:45)
[2020-05-11] MEDS: CHOLECALCIFEROL 1,000 UNIT TABLET GT SCH (05:45)
[2020-05-11 07:36] VITALS: BP 110/62
[2020-05-11] MEDS: [UNRECOGNIZED DRUG - OTHER] GT SCH ×2 (08:56→20:21)
[2020-05-11] MEDS: HEPARIN SODIUM,PORCINE 5,000 UNITS/ML VIAL SQ SCH ×2 (08:56→20:22)
[2020-05-11] MEDS: BACLOFEN 10 MG TABLET GT SCH ×2 (08:56→20:21)
[2020-05-11] MEDS: Z GUARD REMEDY PASTE 57 GM TUBE TOP SCH ×2 (08:57→20:22)
[2020-05-11] MEDS: [UNRECOGNIZED DRUG - OTHER] XX SCH ×2 (08:57→20:22)
[2020-05-11] MEDS: VITAMINS A AND D OINT TP SCH (08:57)
[2020-05-11] MEDS: HYDROGEN PEROXIDE 3% 118 ML BOTTLE TP SCH ×2 (08:58→21:22)
[2020-05-11] MEDS: JEVITY 1.2 1000 ML LIQUID GT PRN (12:01)
--- NOTE | 2020-05-11 15:00 | NUR ---
COVID19 NEGATIVE.
[2020-05-11 20:13] VITALS: BP 114/59
[2020-05-11] MEDS: OMEGA-3 FATTY ACIDS/FISH OIL CAPSULE GT SCH (20:21)
[2020-05-12] MEDS: JEVITY 1.2 1000 ML LIQUID GT PRN ×2 (01:54→21:47)
[2020-05-12] MEDS: LORATADINE 10 MG TABLET GT SCH (05:54)
[2020-05-12] MEDS: OMEPRAZOLE 20 MG CAPSULE.DR GT SCH (05:54)
[2020-05-12] MEDS: CHOLECALCIFEROL 1,000 UNIT TABLET GT SCH (05:54)
[2020-05-12 07:31] VITALS: BP 106/58
[2020-05-12] MEDS: Z GUARD REMEDY PASTE 57 GM TUBE TOP SCH ×2 (08:32→20:24)
[2020-05-12] MEDS: VITAMINS A AND D OINT TP SCH (08:32)
[2020-05-12] MEDS: BACLOFEN 10 MG TABLET GT SCH ×2 (08:32→20:23)
[2020-05-12] MEDS: [UNRECOGNIZED DRUG - OTHER] XX SCH ×2 (08:32→20:24)
[2020-05-12] MEDS: [UNRECOGNIZED DRUG - OTHER] GT SCH ×2 (08:32→20:23)
[2020-05-12] MEDS: HEPARIN SODIUM,PORCINE 5,000 UNITS/ML VIAL SQ SCH ×2 (08:33→20:24)
[2020-05-12] MEDS: HYDROGEN PEROXIDE 3% 118 ML BOTTLE TP SCH ×2 (09:00→20:59)
--- NOTE | 2020-05-12 14:49 | NUR ---
PT'S MOTHER WAS AWARE THAT PT. WAS NEGATIVE FOR COVID 19 TEST.
[2020-05-12] MEDS: OMEGA-3 FATTY ACIDS/FISH OIL CAPSULE GT SCH (20:23)
[2020-05-12 20:45] VITALS: BP 104/65
[2020-05-13] MEDS: OMEPRAZOLE 20 MG CAPSULE.DR GT SCH (05:59)
[2020-05-13] MEDS: CHOLECALCIFEROL 1,000 UNIT TABLET GT SCH (05:59)
[2020-05-13] MEDS: LORATADINE 10 MG TABLET GT SCH (05:59)
[2020-05-13 08:00] VITALS: BP 117/68
[2020-05-13 08:09] VITALS: BP 117/68
[2020-05-13] MEDS: BACLOFEN 10 MG TABLET GT SCH ×2 (09:00→20:20)
[2020-05-13] MEDS: VITAMINS A AND D OINT TP SCH (09:00)
--- NOTE | 2020-05-13 09:00 | NUR ---
SEEN BY DR. SANTA AND WITH NNO.
[2020-05-13] MEDS: Z GUARD REMEDY PASTE 57 GM TUBE TOP SCH ×2 (09:01→20:21)
[2020-05-13] MEDS: [UNRECOGNIZED DRUG - OTHER] XX SCH ×2 (09:01→20:21)
[2020-05-13] MEDS: [UNRECOGNIZED DRUG - OTHER] GT SCH ×2 (09:02→20:20)
[2020-05-13] MEDS: HEPARIN SODIUM,PORCINE 5,000 UNITS/ML VIAL SQ SCH ×2 (09:03→21:00)
[2020-05-13] MEDS: HYDROGEN PEROXIDE 3% 118 ML BOTTLE TP SCH ×2 (09:24→21:18)
[2020-05-13] MEDS: JEVITY 1.2 1000 ML LIQUID GT PRN (18:36)
[2020-05-13] MEDS: OMEGA-3 FATTY ACIDS/FISH OIL CAPSULE GT SCH (20:20)
[2020-05-13 20:59] VITALS: BP 122/64
[2020-05-14] MEDS: LORATADINE 10 MG TABLET GT SCH (05:04)
[2020-05-14] MEDS: CHOLECALCIFEROL 1,000 UNIT TABLET GT SCH (05:04)
[2020-05-14] MEDS: OMEPRAZOLE 20 MG CAPSULE.DR GT SCH (05:04)
[2020-05-14 07:57] VITALS: BP 112/55
[2020-05-14] MEDS: BACLOFEN 10 MG TABLET GT SCH ×2 (08:46→20:33)
[2020-05-14] MEDS: [UNRECOGNIZED DRUG - OTHER] GT SCH ×2 (08:46→20:34)
[2020-05-14] MEDS: HEPARIN SODIUM,PORCINE 5,000 UNITS/ML VIAL SQ SCH ×2 (08:47→21:00)
[2020-05-14] MEDS: Z GUARD REMEDY PASTE 57 GM TUBE TOP SCH ×2 (08:48→20:37)
[2020-05-14] MEDS: VITAMINS A AND D OINT TP SCH (08:48)
[2020-05-14] MEDS: [UNRECOGNIZED DRUG - OTHER] XX SCH ×2 (08:50→20:37)
[2020-05-14] MEDS: HYDROGEN PEROXIDE 3% 118 ML BOTTLE TP SCH ×2 (09:35→20:52)
[2020-05-14] MEDS: JEVITY 1.2 1000 ML LIQUID GT PRN (15:15)
[2020-05-14 20:00] VITALS: BP 109/80
[2020-05-14] MEDS: OMEGA-3 FATTY ACIDS/FISH OIL CAPSULE GT SCH (20:33)
[2020-05-15] MEDS: CHOLECALCIFEROL 1,000 UNIT TABLET GT SCH (06:15)
[2020-05-15] MEDS: LORATADINE 10 MG TABLET GT SCH (06:15)
[2020-05-15] MEDS: OMEPRAZOLE 20 MG CAPSULE.DR GT SCH (06:15)
[2020-05-15 07:50] VITALS: BP 100/66
[2020-05-15] MEDS: [UNRECOGNIZED DRUG - OTHER] GT SCH ×2 (08:40→20:51)
[2020-05-15] MEDS: HEPARIN SODIUM,PORCINE 5,000 UNITS/ML VIAL SQ SCH ×2 (08:43→20:52)
[2020-05-15] MEDS: VITAMINS A AND D OINT TP SCH (08:46)
[2020-05-15] MEDS: [UNRECOGNIZED DRUG - OTHER] XX SCH ×2 (08:46→20:53)
[2020-05-15] MEDS: Z GUARD REMEDY PASTE 57 GM TUBE TOP SCH ×2 (08:46→20:53)
[2020-05-15] MEDS: BACLOFEN 10 MG TABLET GT SCH ×2 (08:47→20:51)
[2020-05-15] MEDS: HYDROGEN PEROXIDE 3% 118 ML BOTTLE TP SCH ×2 (09:00→21:08)
[2020-05-15] MEDS: JEVITY 1.2 1000 ML LIQUID GT PRN (10:31)
[2020-05-15 20:00] VITALS: BP 107/67
[2020-05-15] MEDS: OMEGA-3 FATTY ACIDS/FISH OIL CAPSULE GT SCH (20:51)
[2020-05-16] MEDS: JEVITY 1.2 1000 ML LIQUID GT PRN (02:39)
[2020-05-16] MEDS: CHOLECALCIFEROL 1,000 UNIT TABLET GT SCH (06:16)
[2020-05-16] MEDS: OMEPRAZOLE 20 MG CAPSULE.DR GT SCH (06:16)
[2020-05-16] MEDS: LORATADINE 10 MG TABLET GT SCH (06:16)
[2020-05-16 07:35] VITALS: BP 118/78
[2020-05-16] MEDS: HEPARIN SODIUM,PORCINE 5,000 UNITS/ML VIAL SQ SCH ×2 (08:03→20:33)
[2020-05-16] MEDS: [UNRECOGNIZED DRUG - OTHER] GT SCH ×2 (08:04→20:32)
[2020-05-16] MEDS: BACLOFEN 10 MG TABLET GT SCH ×2 (08:04→20:32)
[2020-05-16] MEDS: [UNRECOGNIZED DRUG - OTHER] XX SCH ×2 (08:07→20:35)
[2020-05-16] MEDS: VITAMINS A AND D OINT TP SCH (08:07)
[2020-05-16] MEDS: Z GUARD REMEDY PASTE 57 GM TUBE TOP SCH ×2 (08:07→20:34)
[2020-05-16] MEDS: HYDROGEN PEROXIDE 3% 118 ML BOTTLE TP SCH ×2 (09:00→21:25)
[2020-05-16 20:00] VITALS: BP 107/70
[2020-05-16] MEDS: OMEGA-3 FATTY ACIDS/FISH OIL CAPSULE GT SCH (20:32)
[2020-05-17] MEDS: JEVITY 1.2 1000 ML LIQUID GT PRN (01:30)
[2020-05-17] MEDS: OMEPRAZOLE 20 MG CAPSULE.DR GT SCH (06:14)
[2020-05-17] MEDS: CHOLECALCIFEROL 1,000 UNIT TABLET GT SCH (06:14)
[2020-05-17] MEDS: LORATADINE 10 MG TABLET GT SCH (06:14)
[2020-05-17 07:44] VITALS: BP 138/60
[2020-05-17] MEDS: [UNRECOGNIZED DRUG - OTHER] GT SCH ×2 (08:19→21:06)
[2020-05-17] MEDS: VITAMINS A AND D OINT TP SCH (08:19)
[2020-05-17] MEDS: Z GUARD REMEDY PASTE 57 GM TUBE TOP SCH ×2 (08:19→21:06)
[2020-05-17] MEDS: [UNRECOGNIZED DRUG - OTHER] XX SCH ×2 (08:19→21:06)
[2020-05-17] MEDS: BACLOFEN 10 MG TABLET GT SCH ×2 (08:19→21:05)
[2020-05-17] MEDS: HEPARIN SODIUM,PORCINE 5,000 UNITS/ML VIAL SQ SCH ×2 (08:20→21:00)
[2020-05-17] MEDS: HYDROGEN PEROXIDE 3% 118 ML BOTTLE TP SCH ×2 (09:00→21:15)
[2020-05-17 20:00] VITALS: BP 103/69
[2020-05-17] MEDS: OMEGA-3 FATTY ACIDS/FISH OIL CAPSULE GT SCH (21:05)
[2020-05-18] MEDS: JEVITY 1.2 1000 ML LIQUID GT PRN ×2 (02:42→18:03)
[2020-05-18] MEDS: OMEPRAZOLE 20 MG CAPSULE.DR GT SCH (05:57)
[2020-05-18] MEDS: LORATADINE 10 MG TABLET GT SCH (05:57)
[2020-05-18] MEDS: CHOLECALCIFEROL 1,000 UNIT TABLET GT SCH (05:57)
[2020-05-18 08:00] VITALS: BP 126/36
[2020-05-18] MEDS: [UNRECOGNIZED DRUG - OTHER] GT SCH ×2 (09:02→20:51)
[2020-05-18] MEDS: BACLOFEN 10 MG TABLET GT SCH ×2 (09:02→20:51)
[2020-05-18] MEDS: VITAMINS A AND D OINT TP SCH (09:02)
[2020-05-18] MEDS: Z GUARD REMEDY PASTE 57 GM TUBE TOP SCH ×2 (09:02→20:51)
[2020-05-18] MEDS: HEPARIN SODIUM,PORCINE 5,000 UNITS/ML VIAL SQ SCH ×2 (09:03→21:00)
[2020-05-18] MEDS: [UNRECOGNIZED DRUG - OTHER] XX SCH ×2 (09:03→20:53)
[2020-05-18] MEDS: HYDROGEN PEROXIDE 3% 118 ML BOTTLE TP SCH ×2 (09:31→21:15)
--- NOTE | 2020-05-18 16:30 | NUR ---
ZOOM MEETING PROVIDED TO PT'S MOM. PATIENT CLEAN AND COMFORTABLE. WILL CONTINUE TO MONITOR
[2020-05-18 20:00] VITALS: BP 98/66
[2020-05-18] MEDS: OMEGA-3 FATTY ACIDS/FISH OIL CAPSULE GT SCH (20:50)
[2020-05-19] MEDS: OMEPRAZOLE 20 MG CAPSULE.DR GT SCH (06:10)
[2020-05-19] MEDS: LORATADINE 10 MG TABLET GT SCH (06:10)
[2020-05-19] MEDS: CHOLECALCIFEROL 1,000 UNIT TABLET GT SCH (06:10)
[2020-05-19 07:46] VITALS: BP 114/69
[2020-05-19] MEDS: [UNRECOGNIZED DRUG - OTHER] GT SCH ×2 (08:26→21:00)
[2020-05-19] MEDS: BACLOFEN 10 MG TABLET GT SCH ×2 (08:26→21:00)
[2020-05-19] MEDS: [UNRECOGNIZED DRUG - OTHER] XX SCH ×2 (08:27→21:00)
[2020-05-19] MEDS: VITAMINS A AND D OINT TP SCH (08:27)
[2020-05-19] MEDS: Z GUARD REMEDY PASTE 57 GM TUBE TOP SCH ×2 (08:27→21:00)
[2020-05-19] MEDS: HYDROGEN PEROXIDE 3% 118 ML BOTTLE TP SCH ×2 (08:27→21:47)
[2020-05-19] MEDS: HEPARIN SODIUM,PORCINE 5,000 UNITS/ML VIAL SQ SCH ×2 (08:31→21:00)
[2020-05-19 20:00] VITALS: BP 117/70
[2020-05-19] MEDS: OMEGA-3 FATTY ACIDS/FISH OIL CAPSULE GT SCH (21:00)
[2020-05-20] MEDS: LORATADINE 10 MG TABLET GT SCH (05:06)
[2020-05-20] MEDS: CHOLECALCIFEROL 1,000 UNIT TABLET GT SCH (05:06)
[2020-05-20] MEDS: OMEPRAZOLE 20 MG CAPSULE.DR GT SCH (05:06)
[2020-05-20] MEDS: JEVITY 1.2 1000 ML LIQUID GT PRN (07:01)
[2020-05-20 07:35] VITALS: BP 110/51
[2020-05-20] MEDS: [UNRECOGNIZED DRUG - OTHER] GT SCH ×2 (08:12→21:29)
[2020-05-20] MEDS: Z GUARD REMEDY PASTE 57 GM TUBE TOP SCH ×2 (08:12→21:30)
[2020-05-20] MEDS: BACLOFEN 10 MG TABLET GT SCH ×2 (08:12→21:29)
[2020-05-20] MEDS: VITAMINS A AND D OINT TP SCH (08:12)
[2020-05-20] MEDS: [UNRECOGNIZED DRUG - OTHER] XX SCH ×2 (08:13→21:30)
[2020-05-20] MEDS: HEPARIN SODIUM,PORCINE 5,000 UNITS/ML VIAL SQ SCH ×2 (08:26→21:33)
[2020-05-20] MEDS: HYDROGEN PEROXIDE 3% 118 ML BOTTLE TP SCH ×2 (09:15→21:38)
[2020-05-20 20:08] VITALS: BP 113/51
[2020-05-20] MEDS: OMEGA-3 FATTY ACIDS/FISH OIL CAPSULE GT SCH (21:28)
[2020-05-21] MEDS: LORATADINE 10 MG TABLET GT SCH (05:07)
[2020-05-21] MEDS: CHOLECALCIFEROL 1,000 UNIT TABLET GT SCH (05:07)
[2020-05-21] MEDS: OMEPRAZOLE 20 MG CAPSULE.DR GT SCH (05:07)
[2020-05-21 07:27] VITALS: BP 99/50
[2020-05-21] MEDS: HEPARIN SODIUM,PORCINE 5,000 UNITS/ML VIAL SQ SCH ×2 (08:38→21:05)
[2020-05-21] MEDS: [UNRECOGNIZED DRUG - OTHER] GT SCH ×2 (08:38→21:03)
[2020-05-21] MEDS: BACLOFEN 10 MG TABLET GT SCH ×2 (08:38→21:03)
[2020-05-21] MEDS: Z GUARD REMEDY PASTE 57 GM TUBE TOP SCH ×2 (08:38→21:04)
[2020-05-21] MEDS: [UNRECOGNIZED DRUG - OTHER] XX SCH ×2 (08:39→21:04)
[2020-05-21] MEDS: VITAMINS A AND D OINT TP SCH (08:39)
[2020-05-21] MEDS: HYDROGEN PEROXIDE 3% 118 ML BOTTLE TP SCH ×2 (09:00→21:01)
[2020-05-21 20:24] VITALS: BP 100/52
[2020-05-21] MEDS: OMEGA-3 FATTY ACIDS/FISH OIL CAPSULE GT SCH (21:03)
[2020-05-22] MEDS: LORATADINE 10 MG TABLET GT SCH (05:03)
[2020-05-22] MEDS: OMEPRAZOLE 20 MG CAPSULE.DR GT SCH (05:03)
[2020-05-22] MEDS: CHOLECALCIFEROL 1,000 UNIT TABLET GT SCH (05:03)
[2020-05-22] MEDS: HYDROGEN PEROXIDE 3% 118 ML BOTTLE TP SCH ×2 (07:17→21:15)
[2020-05-22 07:52] VITALS: BP 112/69
[2020-05-22] MEDS: [UNRECOGNIZED DRUG - OTHER] GT SCH ×2 (08:45→21:50)
[2020-05-22] MEDS: BACLOFEN 10 MG TABLET GT SCH ×2 (08:45→21:50)
[2020-05-22] MEDS: VITAMINS A AND D OINT TP SCH (08:46)
[2020-05-22] MEDS: [UNRECOGNIZED DRUG - OTHER] XX SCH ×2 (08:46→21:50)
[2020-05-22] MEDS: HEPARIN SODIUM,PORCINE 5,000 UNITS/ML VIAL SQ SCH ×2 (08:46→21:00)
[2020-05-22] MEDS: Z GUARD REMEDY PASTE 57 GM TUBE TOP SCH ×2 (08:46→21:50)
[2020-05-22 20:23] VITALS: BP 114/66
[2020-05-22] MEDS: OMEGA-3 FATTY ACIDS/FISH OIL CAPSULE GT SCH (21:50)
[2020-05-23] MEDS: CHOLECALCIFEROL 1,000 UNIT TABLET GT SCH (06:02)
[2020-05-23] MEDS: LORATADINE 10 MG TABLET GT SCH (06:02)
[2020-05-23] MEDS: OMEPRAZOLE 20 MG CAPSULE.DR GT SCH (06:02)
[2020-05-23 07:53] VITALS: BP 128/71
[2020-05-23] MEDS: BACLOFEN 10 MG TABLET GT SCH ×2 (08:22→20:21)
[2020-05-23] MEDS: [UNRECOGNIZED DRUG - OTHER] GT SCH ×2 (08:22→20:21)
[2020-05-23] MEDS: HEPARIN SODIUM,PORCINE 5,000 UNITS/ML VIAL SQ SCH ×2 (08:24→21:46)
[2020-05-23] MEDS: Z GUARD REMEDY PASTE 57 GM TUBE TOP SCH ×2 (08:37→20:21)
[2020-05-23] MEDS: VITAMINS A AND D OINT TP SCH (08:37)
[2020-05-23] MEDS: [UNRECOGNIZED DRUG - OTHER] XX SCH ×2 (08:37→20:21)
[2020-05-23] MEDS: HYDROGEN PEROXIDE 3% 118 ML BOTTLE TP SCH ×2 (09:00→21:51)
[2020-05-23] MEDS: JEVITY 1.2 1000 ML LIQUID GT PRN (12:20)
[2020-05-23] MEDS: BISACODYL 10 MG SUPP.RECT RC PRN (12:26)
[2020-05-23] MEDS: OMEGA-3 FATTY ACIDS/FISH OIL CAPSULE GT SCH (20:21)
[2020-05-23 23:18] VITALS: BP 108/69
[2020-05-24] MEDS: JEVITY 1.2 1000 ML LIQUID GT PRN (04:49)
[2020-05-24] MEDS: CHOLECALCIFEROL 1,000 UNIT TABLET GT SCH (05:57)
[2020-05-24] MEDS: LORATADINE 10 MG TABLET GT SCH (05:57)
[2020-05-24] MEDS: OMEPRAZOLE 20 MG CAPSULE.DR GT SCH (05:57)
[2020-05-24 08:02] VITALS: BP 131/72
[2020-05-24] MEDS: [UNRECOGNIZED DRUG - OTHER] GT SCH ×2 (08:07→20:39)
[2020-05-24] MEDS: BACLOFEN 10 MG TABLET GT SCH ×2 (08:07→20:39)
[2020-05-24] MEDS: HEPARIN SODIUM,PORCINE 5,000 UNITS/ML VIAL SQ SCH ×2 (08:07→20:45)
[2020-05-24] MEDS: Z GUARD REMEDY PASTE 57 GM TUBE TOP SCH ×2 (08:07→20:39)
[2020-05-24] MEDS: [UNRECOGNIZED DRUG - OTHER] XX SCH ×2 (08:08→20:39)
[2020-05-24] MEDS: VITAMINS A AND D OINT TP SCH (08:08)
[2020-05-24] MEDS: HYDROGEN PEROXIDE 3% 118 ML BOTTLE TP SCH ×2 (09:21→21:17)
--- NOTE | 2020-05-24 14:15 | NUR ---
provided zoom for patient with mother. patient stable, no signs of any pain or distress noted at this time. will continue to monitor.
--- NOTE | 2020-05-24 17:09 | NUR ---
SEEN BY DR. SANTA AND WITH NNO.
[2020-05-24 20:07] VITALS: BP 127/64
[2020-05-24] MEDS: OMEGA-3 FATTY ACIDS/FISH OIL CAPSULE GT SCH (20:39)
[2020-05-25] MEDS: JEVITY 1.2 1000 ML LIQUID GT PRN ×2 (00:59→20:04)
--- NOTE | 2020-05-25 02:25 | NUR ---
Change previous GT site care to wash with soap and water and cover with dry dressing daily.
[2020-05-25] MEDS: LORATADINE 10 MG TABLET GT SCH (05:00)
[2020-05-25] MEDS: OMEPRAZOLE 20 MG CAPSULE.DR GT SCH (05:00)
[2020-05-25] MEDS: CHOLECALCIFEROL 1,000 UNIT TABLET GT SCH (05:00)
[2020-05-25 07:44] VITALS: BP 107/74
[2020-05-25] MEDS: HEPARIN SODIUM,PORCINE 5,000 UNITS/ML VIAL SQ SCH ×2 (08:14→21:44)
[2020-05-25] MEDS: [UNRECOGNIZED DRUG - OTHER] GT SCH ×2 (08:14→20:04)
[2020-05-25] MEDS: VITAMINS A AND D OINT TP SCH (08:14)
[2020-05-25] MEDS: BACLOFEN 10 MG TABLET GT SCH ×2 (08:14→20:04)
[2020-05-25] MEDS: Z GUARD REMEDY PASTE 57 GM TUBE TOP SCH ×2 (08:14→20:04)
[2020-05-25] MEDS: [UNRECOGNIZED DRUG - OTHER] XX SCH ×2 (08:15→20:04)
[2020-05-25] MEDS: HYDROGEN PEROXIDE 3% 118 ML BOTTLE TP SCH ×2 (09:00→19:05)
[2020-05-25] MEDS: OMEGA-3 FATTY ACIDS/FISH OIL CAPSULE GT SCH (20:04)
[2020-05-25 20:11] VITALS: BP 116/72
[2020-05-26] MEDS: CHOLECALCIFEROL 1,000 UNIT TABLET GT SCH (05:07)
[2020-05-26] MEDS: LORATADINE 10 MG TABLET GT SCH (05:07)
[2020-05-26] MEDS: OMEPRAZOLE 20 MG CAPSULE.DR GT SCH (05:07)
[2020-05-26] MEDS: BACLOFEN 10 MG TABLET GT SCH ×2 (08:42→20:58)
[2020-05-26] MEDS: [UNRECOGNIZED DRUG - OTHER] GT SCH ×2 (08:42→20:58)
[2020-05-26] MEDS: HEPARIN SODIUM,PORCINE 5,000 UNITS/ML VIAL SQ SCH ×2 (08:42→20:42)
[2020-05-26] MEDS: VITAMINS A AND D OINT TP SCH (08:43)
[2020-05-26] MEDS: [UNRECOGNIZED DRUG - OTHER] XX SCH ×2 (08:43→20:59)
[2020-05-26] MEDS: Z GUARD REMEDY PASTE 57 GM TUBE TOP SCH ×2 (08:43→20:59)
[2020-05-26] MEDS: HYDROGEN PEROXIDE 3% 118 ML BOTTLE TP SCH ×2 (09:14→20:59)
[2020-05-26 20:07] VITALS: BP 110/62
[2020-05-26] MEDS: OMEGA-3 FATTY ACIDS/FISH OIL CAPSULE GT SCH (20:58)
[2020-05-27] MEDS: CHOLECALCIFEROL 1,000 UNIT TABLET GT SCH (05:15)
[2020-05-27] MEDS: LORATADINE 10 MG TABLET GT SCH (05:15)
[2020-05-27] MEDS: OMEPRAZOLE 20 MG CAPSULE.DR GT SCH (05:15)
[2020-05-27 07:44] VITALS: BP 121/64
[2020-05-27] MEDS: Z GUARD REMEDY PASTE 57 GM TUBE TOP SCH ×2 (08:24→21:19)
[2020-05-27] MEDS: BACLOFEN 10 MG TABLET GT SCH ×2 (08:24→21:19)
[2020-05-27] MEDS: [UNRECOGNIZED DRUG - OTHER] GT SCH ×2 (08:24→21:19)
[2020-05-27] MEDS: [UNRECOGNIZED DRUG - OTHER] XX SCH ×2 (08:24→21:19)
[2020-05-27] MEDS: VITAMINS A AND D OINT TP SCH (08:24)
[2020-05-27] MEDS: HEPARIN SODIUM,PORCINE 5,000 UNITS/ML VIAL SQ SCH ×2 (08:25→21:00)
[2020-05-27] MEDS: HYDROGEN PEROXIDE 3% 118 ML BOTTLE TP SCH ×2 (09:00→20:52)
[2020-05-27 20:14] VITALS: BP 110/75
[2020-05-27] MEDS: OMEGA-3 FATTY ACIDS/FISH OIL CAPSULE GT SCH (21:19)
[2020-05-28] MEDS: OMEPRAZOLE 20 MG CAPSULE.DR GT SCH (06:35)
[2020-05-28] MEDS: LORATADINE 10 MG TABLET GT SCH (06:35)
[2020-05-28] MEDS: JEVITY 1.2 1000 ML LIQUID GT PRN (06:36)
[2020-05-28] MEDS: CHOLECALCIFEROL 1,000 UNIT TABLET GT SCH (06:36)
[2020-05-28 07:25] VITALS: BP 108/73
[2020-05-28] MEDS: Z GUARD REMEDY PASTE 57 GM TUBE TOP SCH ×2 (08:10→20:48)
[2020-05-28] MEDS: VITAMINS A AND D OINT TP SCH (08:10)
[2020-05-28] MEDS: [UNRECOGNIZED DRUG - OTHER] XX SCH ×2 (08:10→20:48)
[2020-05-28] MEDS: BACLOFEN 10 MG TABLET GT SCH ×2 (08:10→20:46)
[2020-05-28] MEDS: [UNRECOGNIZED DRUG - OTHER] GT SCH ×2 (08:10→20:46)
[2020-05-28] MEDS: HEPARIN SODIUM,PORCINE 5,000 UNITS/ML VIAL SQ SCH ×2 (08:12→20:48)
--- NOTE | 2020-05-28 09:00 | NUR ---
Seen and examined by Dr Diaz with new orders noted.
[2020-05-28] MEDS: HYDROGEN PEROXIDE 3% 118 ML BOTTLE TP SCH ×2 (09:15→21:02)
[2020-05-28 20:21] VITALS: BP 113/74
[2020-05-28] MEDS: OMEGA-3 FATTY ACIDS/FISH OIL CAPSULE GT SCH (20:46)
[2020-05-29] MEDS: JEVITY 1.2 1000 ML LIQUID GT PRN (04:52)
[2020-05-29] MEDS: CHOLECALCIFEROL 1,000 UNIT TABLET GT SCH (06:03)
[2020-05-29] MEDS: OMEPRAZOLE 20 MG CAPSULE.DR GT SCH (06:03)
[2020-05-29] MEDS: LORATADINE 10 MG TABLET GT SCH (06:03)
[2020-05-29 06:27] LABS: BASOPHILS % (AUTO) 0.4 % (0.0-2.0); EOSINOPHILS # (AUTO) 0.2 K/uL (0.0-0.7); EOSINOPHILS % (AUTO) 2.4 % (0.0-7.0); HEMATOCRIT 44.2 % (36.7-47.1); HEMOGLOBIN 15.4 g/dL (12.5-16.3); LYMPHOCYTES # (AUTO) 2.4 K/uL (20.0-40.0); LYMPHOCYTES % (AUTO) 34.4 % (20.5-51.5); MEAN CORPUSCULAR HEMOGLOBIN 32.1 uug (23.8-33.4); MEAN CORPUSCULAR HGB CONC 35 g/dL (32.5-36.3); MEAN CORPUSCULAR VOLUME 92.3 fL (73.0-96.2); MONOCYTES # (AUTO) 0.8 K/uL (2.0-10.0); MONOCYTES % (AUTO) 11.6 % (0.0-11.0); NEUTROPHILS # (AUTO) 3.5 K/uL (1.8-8.9); NEUTROPHILS % (AUTO) 51.2 % (38.5-71.5); PLATELET COUNT (AUTO) 213 K/uL (152-348); RED BLOOD CELL COUNT(AUTO) 4.79 MIL/uL (4.06-5.63); WHITE BLOOD COUNT (AUTO) 6.8 K/uL (3.6-10.2)
[2020-05-29 06:55] LABS: BILIRUBIN,TOTAL 0.4 mg/dL (0.2-1.0); CREATININE 0.9 mg/dL (0.6-1.3); POTASSIUM 3.7 mmol/L (3.5-5.1); TOTAL PROTEIN, SERUM 7.8 g/dL (6.4-8.2)
[2020-05-29 06:59] LABS: THYROID STIMULATING HORMONE 1.997 mIU/mL (0.358-3.740)
[2020-05-29 07:37] VITALS: BP 120/63
[2020-05-29] MEDS: HEPARIN SODIUM,PORCINE 5,000 UNITS/ML VIAL SQ SCH ×2 (08:11→20:44)
[2020-05-29] MEDS: [UNRECOGNIZED DRUG - OTHER] XX SCH ×2 (08:13→20:45)
[2020-05-29] MEDS: VITAMINS A AND D OINT TP SCH (08:13)
[2020-05-29] MEDS: BACLOFEN 10 MG TABLET GT SCH ×2 (08:13→20:42)
[2020-05-29] MEDS: [UNRECOGNIZED DRUG - OTHER] GT SCH ×2 (08:13→20:43)
[2020-05-29] MEDS: Z GUARD REMEDY PASTE 57 GM TUBE TOP SCH ×2 (08:13→20:44)
[2020-05-29] MEDS: HYDROGEN PEROXIDE 3% 118 ML BOTTLE TP SCH ×2 (09:31→21:15)
[2020-05-29 19:47] VITALS: BP 113/51
[2020-05-29] MEDS: OMEGA-3 FATTY ACIDS/FISH OIL CAPSULE GT SCH (20:42)
[2020-05-30] MEDS: JEVITY 1.2 1000 ML LIQUID GT PRN (03:00)
[2020-05-30] MEDS: LORATADINE 10 MG TABLET GT SCH (06:06)
[2020-05-30] MEDS: OMEPRAZOLE 20 MG CAPSULE.DR GT SCH (06:07)
[2020-05-30] MEDS: CHOLECALCIFEROL 1,000 UNIT TABLET GT SCH (06:07)
[2020-05-30] MEDS: HYDROGEN PEROXIDE 3% 118 ML BOTTLE TP SCH ×2 (07:13→20:54)
[2020-05-30 07:31] VITALS: BP 109/60
[2020-05-30] MEDS: [UNRECOGNIZED DRUG - OTHER] XX SCH ×2 (08:39→20:52)
[2020-05-30] MEDS: Z GUARD REMEDY PASTE 57 GM TUBE TOP SCH ×2 (08:39→20:51)
[2020-05-30] MEDS: HEPARIN SODIUM,PORCINE 5,000 UNITS/ML VIAL SQ SCH ×2 (08:39→20:51)
[2020-05-30] MEDS: BACLOFEN 10 MG TABLET GT SCH ×2 (08:39→20:51)
[2020-05-30] MEDS: [UNRECOGNIZED DRUG - OTHER] GT SCH ×2 (08:39→20:51)
[2020-05-30] MEDS: VITAMINS A AND D OINT TP SCH (08:39)
[2020-05-30 19:51] VITALS: BP 98/59
[2020-05-30] MEDS: OMEGA-3 FATTY ACIDS/FISH OIL CAPSULE GT SCH (20:51)
[2020-05-31] MEDS: JEVITY 1.2 1000 ML LIQUID GT PRN (00:31)
[2020-05-31] MEDS: CHOLECALCIFEROL 1,000 UNIT TABLET GT SCH (05:55)
[2020-05-31] MEDS: LORATADINE 10 MG TABLET GT SCH (05:55)
[2020-05-31] MEDS: OMEPRAZOLE 20 MG CAPSULE.DR GT SCH (05:55)
[2020-05-31 07:39] VITALS: BP 117/69
[2020-05-31] MEDS: [UNRECOGNIZED DRUG - OTHER] GT SCH ×2 (08:52→21:01)
[2020-05-31] MEDS: BACLOFEN 10 MG TABLET GT SCH ×2 (08:52→21:01)
[2020-05-31] MEDS: [UNRECOGNIZED DRUG - OTHER] XX SCH ×2 (08:53→21:02)
[2020-05-31] MEDS: HEPARIN SODIUM,PORCINE 5,000 UNITS/ML VIAL SQ SCH ×2 (08:53→21:00)
[2020-05-31] MEDS: VITAMINS A AND D OINT TP SCH (08:53)
[2020-05-31] MEDS: Z GUARD REMEDY PASTE 57 GM TUBE TOP SCH ×2 (08:53→21:02)
[2020-05-31] MEDS: HYDROGEN PEROXIDE 3% 118 ML BOTTLE TP SCH ×2 (09:00→21:15)
[2020-05-31 20:00] VITALS: BP 111/69
[2020-05-31] MEDS: OMEGA-3 FATTY ACIDS/FISH OIL CAPSULE GT SCH (21:01)
[2020-06-01] MEDS: JEVITY 1.2 1000 ML LIQUID GT PRN (02:56)
[2020-06-01] MEDS: CHOLECALCIFEROL 1,000 UNIT TABLET GT SCH (06:21)
[2020-06-01] MEDS: OMEPRAZOLE 20 MG CAPSULE.DR GT SCH (06:21)
[2020-06-01] MEDS: LORATADINE 10 MG TABLET GT SCH (06:21)
[2020-06-01 08:11] VITALS: BP 100/59
[2020-06-01] MEDS: HYDROGEN PEROXIDE 3% 118 ML BOTTLE TP PRN (08:45)
[2020-06-01] MEDS: [UNRECOGNIZED DRUG - OTHER] GT SCH ×2 (08:52→20:14)
[2020-06-01] MEDS: BACLOFEN 10 MG TABLET GT SCH ×2 (08:52→20:14)
[2020-06-01] MEDS: VITAMINS A AND D OINT TP SCH (08:54)
[2020-06-01] MEDS: HYDROGEN PEROXIDE 3% 118 ML BOTTLE TP SCH ×2 (08:54→21:45)
[2020-06-01] MEDS: [UNRECOGNIZED DRUG - OTHER] XX SCH ×2 (08:54→20:14)
[2020-06-01] MEDS: HEPARIN SODIUM,PORCINE 5,000 UNITS/ML VIAL SQ SCH ×2 (08:54→20:14)
[2020-06-01] MEDS: Z GUARD REMEDY PASTE 57 GM TUBE TOP SCH ×2 (08:54→20:14)
[2020-06-01 19:53] VITALS: BP 101/56
[2020-06-01] MEDS: OMEGA-3 FATTY ACIDS/FISH OIL CAPSULE GT SCH (20:14)
[2020-06-02] MEDS: CHOLECALCIFEROL 1,000 UNIT TABLET GT SCH (05:33)
[2020-06-02] MEDS: LORATADINE 10 MG TABLET GT SCH (05:33)
[2020-06-02] MEDS: OMEPRAZOLE 20 MG CAPSULE.DR GT SCH (05:33)
[2020-06-02 07:46] VITALS: BP 106/63
[2020-06-02] MEDS: HYDROGEN PEROXIDE 3% 118 ML BOTTLE TP SCH ×2 (08:05→20:38)
[2020-06-02] MEDS: [UNRECOGNIZED DRUG - OTHER] GT SCH ×2 (08:56→20:15)
[2020-06-02] MEDS: Z GUARD REMEDY PASTE 57 GM TUBE TOP SCH ×2 (08:56→20:15)
[2020-06-02] MEDS: BACLOFEN 10 MG TABLET GT SCH ×2 (08:56→20:15)
[2020-06-02] MEDS: VITAMINS A AND D OINT TP SCH (08:56)
[2020-06-02] MEDS: [UNRECOGNIZED DRUG - OTHER] XX SCH ×2 (08:57→20:15)
[2020-06-02] MEDS: HEPARIN SODIUM,PORCINE 5,000 UNITS/ML VIAL SQ SCH ×2 (08:59→20:15)
[2020-06-02] MEDS: JEVITY 1.2 1000 ML LIQUID GT PRN (15:31)
--- NOTE | 2020-06-02 16:30 | NUR ---
Covid19 test done.
[2020-06-02 19:56] VITALS: BP 106/76
[2020-06-02] MEDS: OMEGA-3 FATTY ACIDS/FISH OIL CAPSULE GT SCH (20:15)
[2020-06-03] MEDS: OMEPRAZOLE 20 MG CAPSULE.DR GT SCH (05:35)
[2020-06-03] MEDS: LORATADINE 10 MG TABLET GT SCH (05:35)
[2020-06-03] MEDS: CHOLECALCIFEROL 1,000 UNIT TABLET GT SCH (05:35)
[2020-06-03] MEDS: HYDROGEN PEROXIDE 3% 118 ML BOTTLE TP SCH ×2 (07:25→20:51)
[2020-06-03 07:31] VITALS: BP 138/70
[2020-06-03] MEDS: Z GUARD REMEDY PASTE 57 GM TUBE TOP SCH ×2 (08:34→21:53)
[2020-06-03] MEDS: VITAMINS A AND D OINT TP SCH (08:34)
[2020-06-03] MEDS: HEPARIN SODIUM,PORCINE 5,000 UNITS/ML VIAL SQ SCH ×2 (08:34→21:00)
[2020-06-03] MEDS: [UNRECOGNIZED DRUG - OTHER] XX SCH ×2 (08:34→21:53)
[2020-06-03] MEDS: BACLOFEN 10 MG TABLET GT SCH ×2 (08:34→21:52)
[2020-06-03] MEDS: [UNRECOGNIZED DRUG - OTHER] GT SCH ×2 (08:34→21:52)
--- NOTE | 2020-06-03 15:32 | NUR ---
SW called patient's mother Lizzette [phone] and informed her of possible COVID-19 exposure and testing plan for the current week and next week, as mandated by [facility] regulations. Lizzette expressed understanding, and thanked this SW for keeping her updated.
[2020-06-03 20:02] VITALS: BP 115/70
[2020-06-03] MEDS: OMEGA-3 FATTY ACIDS/FISH OIL CAPSULE GT SCH (21:52)
[2020-06-04] MEDS: OMEPRAZOLE 20 MG CAPSULE.DR GT SCH (06:07)
[2020-06-04] MEDS: LORATADINE 10 MG TABLET GT SCH (06:07)
[2020-06-04] MEDS: CHOLECALCIFEROL 1,000 UNIT TABLET GT SCH (06:07)
[2020-06-04 07:25] VITALS: BP 114/69
[2020-06-04] MEDS: [UNRECOGNIZED DRUG - OTHER] GT SCH ×2 (08:23→21:33)
[2020-06-04] MEDS: BACLOFEN 10 MG TABLET GT SCH ×2 (08:23→21:32)
[2020-06-04] MEDS: HEPARIN SODIUM,PORCINE 5,000 UNITS/ML VIAL SQ SCH ×2 (08:25→21:38)
[2020-06-04] MEDS: VITAMINS A AND D OINT TP SCH (08:27)
[2020-06-04] MEDS: [UNRECOGNIZED DRUG - OTHER] XX SCH ×2 (08:27→21:39)
[2020-06-04] MEDS: Z GUARD REMEDY PASTE 57 GM TUBE TOP SCH ×2 (08:27→21:38)
[2020-06-04] MEDS: HYDROGEN PEROXIDE 3% 118 ML BOTTLE TP SCH ×2 (09:35→21:23)
[2020-06-04 20:41] VITALS: BP 106/58
[2020-06-04] MEDS: OMEGA-3 FATTY ACIDS/FISH OIL CAPSULE GT SCH (21:32)
[2020-06-05] MEDS: JEVITY 1.2 1000 ML LIQUID GT PRN (05:00)
[2020-06-05] MEDS: OMEPRAZOLE 20 MG CAPSULE.DR GT SCH (06:02)
[2020-06-05] MEDS: CHOLECALCIFEROL 1,000 UNIT TABLET GT SCH (06:02)
[2020-06-05] MEDS: LORATADINE 10 MG TABLET GT SCH (06:02)
[2020-06-05 08:00] VITALS: BP 140/59
[2020-06-05] MEDS: BACLOFEN 10 MG TABLET GT SCH ×2 (08:20→21:13)
[2020-06-05] MEDS: [UNRECOGNIZED DRUG - OTHER] GT SCH ×2 (08:20→21:14)
[2020-06-05] MEDS: Z GUARD REMEDY PASTE 57 GM TUBE TOP SCH ×2 (08:21→21:14)
[2020-06-05] MEDS: VITAMINS A AND D OINT TP SCH (08:21)
[2020-06-05] MEDS: [UNRECOGNIZED DRUG - OTHER] XX SCH ×2 (08:21→21:14)
[2020-06-05] MEDS: HEPARIN SODIUM,PORCINE 5,000 UNITS/ML VIAL SQ SCH ×2 (08:25→21:14)
[2020-06-05] MEDS: HYDROGEN PEROXIDE 3% 118 ML BOTTLE TP SCH ×2 (08:55→20:06)
--- NOTE | 2020-06-05 19:00 | NUR ---
Lizzette Pt's mother notified COVID 19 results is negative.
[2020-06-05 20:13] VITALS: BP 114/70
[2020-06-05] MEDS: OMEGA-3 FATTY ACIDS/FISH OIL CAPSULE GT SCH (21:13)
[2020-06-06] MEDS: JEVITY 1.2 1000 ML LIQUID GT PRN ×2 (00:30→23:47)
[2020-06-06] MEDS: LORATADINE 10 MG TABLET GT SCH (05:37)
[2020-06-06] MEDS: OMEPRAZOLE 20 MG CAPSULE.DR GT SCH (05:37)
[2020-06-06] MEDS: CHOLECALCIFEROL 1,000 UNIT TABLET GT SCH (05:37)
[2020-06-06 08:03] VITALS: BP 113/63
[2020-06-06] MEDS: HYDROGEN PEROXIDE 3% 118 ML BOTTLE TP SCH ×2 (09:00→21:00)
[2020-06-06] MEDS: Z GUARD REMEDY PASTE 57 GM TUBE TOP SCH ×2 (09:21→20:19)
[2020-06-06] MEDS: [UNRECOGNIZED DRUG - OTHER] GT SCH ×2 (09:21→20:18)
[2020-06-06] MEDS: BACLOFEN 10 MG TABLET GT SCH ×2 (09:21→20:18)
[2020-06-06] MEDS: VITAMINS A AND D OINT TP SCH (09:21)
[2020-06-06] MEDS: [UNRECOGNIZED DRUG - OTHER] XX SCH ×2 (09:22→20:19)
[2020-06-06] MEDS: HEPARIN SODIUM,PORCINE 5,000 UNITS/ML VIAL SQ SCH ×2 (09:24→21:49)
[2020-06-06] MEDS: OMEGA-3 FATTY ACIDS/FISH OIL CAPSULE GT SCH (20:18)
[2020-06-06 20:24] VITALS: BP 100/60
[2020-06-07] MEDS: CHOLECALCIFEROL 1,000 UNIT TABLET GT SCH (05:50)
[2020-06-07] MEDS: LORATADINE 10 MG TABLET GT SCH (05:50)
[2020-06-07] MEDS: OMEPRAZOLE 20 MG CAPSULE.DR GT SCH (05:50)
[2020-06-07 08:00] VITALS: BP 153/48
[2020-06-07] MEDS: [UNRECOGNIZED DRUG - OTHER] GT SCH ×2 (08:31→21:10)
[2020-06-07] MEDS: BACLOFEN 10 MG TABLET GT SCH ×2 (08:31→21:10)
[2020-06-07] MEDS: HEPARIN SODIUM,PORCINE 5,000 UNITS/ML VIAL SQ SCH ×2 (08:32→21:00)
[2020-06-07] MEDS: VITAMINS A AND D OINT TP SCH (08:33)
[2020-06-07] MEDS: Z GUARD REMEDY PASTE 57 GM TUBE TOP SCH ×2 (08:33→21:11)
[2020-06-07] MEDS: [UNRECOGNIZED DRUG - OTHER] XX SCH ×2 (08:33→21:11)
[2020-06-07] MEDS: HYDROGEN PEROXIDE 3% 118 ML BOTTLE TP SCH ×2 (08:39→21:15)
--- NOTE | 2020-06-07 10:00 | NUR ---
SEEN BY ALEXANDR MARRUFO. AND WITH NNO.
--- NOTE | 2020-06-07 16:00 | NUR ---
SEEN BYDR. SANTA AND WITH NNO.
[2020-06-07 20:12] VITALS: BP 118/65
[2020-06-07] MEDS: OMEGA-3 FATTY ACIDS/FISH OIL CAPSULE GT SCH (21:10)
[2020-06-08] MEDS: JEVITY 1.2 1000 ML LIQUID GT PRN ×2 (00:53→16:09)
[2020-06-08] MEDS: CHOLECALCIFEROL 1,000 UNIT TABLET GT SCH (06:03)
[2020-06-08] MEDS: OMEPRAZOLE 20 MG CAPSULE.DR GT SCH (06:03)
[2020-06-08] MEDS: LORATADINE 10 MG TABLET GT SCH (06:03)
[2020-06-08 07:48] VITALS: BP 116/78
[2020-06-08] MEDS: HYDROGEN PEROXIDE 3% 118 ML BOTTLE TP SCH ×2 (08:07→21:30)
[2020-06-08] MEDS: BACLOFEN 10 MG TABLET GT SCH ×2 (08:46→20:46)
[2020-06-08] MEDS: [UNRECOGNIZED DRUG - OTHER] GT SCH ×2 (08:47→20:46)
[2020-06-08] MEDS: Z GUARD REMEDY PASTE 57 GM TUBE TOP SCH ×2 (08:51→20:46)
[2020-06-08] MEDS: HEPARIN SODIUM,PORCINE 5,000 UNITS/ML VIAL SQ SCH ×2 (08:51→21:00)
[2020-06-08] MEDS: [UNRECOGNIZED DRUG - OTHER] XX SCH ×2 (08:52→20:47)
[2020-06-08] MEDS: VITAMINS A AND D OINT TP SCH (08:52)
[2020-06-08 20:11] VITALS: BP 116/68
[2020-06-08] MEDS: OMEGA-3 FATTY ACIDS/FISH OIL CAPSULE GT SCH (20:46)
[2020-06-09] MEDS: CHOLECALCIFEROL 1,000 UNIT TABLET GT SCH (06:56)
[2020-06-09] MEDS: OMEPRAZOLE 20 MG CAPSULE.DR GT SCH (06:56)
[2020-06-09] MEDS: LORATADINE 10 MG TABLET GT SCH (06:56)
[2020-06-09 07:55] VITALS: BP 130/70
[2020-06-09] MEDS: BACLOFEN 10 MG TABLET GT SCH ×2 (08:40→21:00)
[2020-06-09] MEDS: HYDROGEN PEROXIDE 3% 118 ML BOTTLE TP SCH ×2 (08:41→19:08)
[2020-06-09] MEDS: [UNRECOGNIZED DRUG - OTHER] GT SCH ×2 (08:42→21:00)
[2020-06-09] MEDS: [UNRECOGNIZED DRUG - OTHER] XX SCH ×2 (08:43→21:00)
[2020-06-09] MEDS: VITAMINS A AND D OINT TP SCH (08:43)
[2020-06-09] MEDS: HEPARIN SODIUM,PORCINE 5,000 UNITS/ML VIAL SQ SCH ×2 (08:43→21:00)
[2020-06-09] MEDS: Z GUARD REMEDY PASTE 57 GM TUBE TOP SCH ×2 (08:43→21:00)
[2020-06-09] MEDS: JEVITY 1.2 1000 ML LIQUID GT PRN (08:47)
[2020-06-09 20:16] VITALS: BP 108/64
[2020-06-09] MEDS: OMEGA-3 FATTY ACIDS/FISH OIL CAPSULE GT SCH (21:00)
[2020-06-10] MEDS: OMEPRAZOLE 20 MG CAPSULE.DR GT SCH (05:46)
[2020-06-10] MEDS: LORATADINE 10 MG TABLET GT SCH (05:46)
[2020-06-10] MEDS: CHOLECALCIFEROL 1,000 UNIT TABLET GT SCH (05:46)
[2020-06-10 07:30] VITALS: BP 118/53
[2020-06-10] MEDS: BACLOFEN 10 MG TABLET GT SCH ×2 (08:11→20:23)
[2020-06-10] MEDS: VITAMINS A AND D OINT TP SCH (08:11)
[2020-06-10] MEDS: [UNRECOGNIZED DRUG - OTHER] GT SCH ×2 (08:11→20:23)
[2020-06-10] MEDS: HEPARIN SODIUM,PORCINE 5,000 UNITS/ML VIAL SQ SCH ×2 (08:11→21:33)
[2020-06-10] MEDS: Z GUARD REMEDY PASTE 57 GM TUBE TOP SCH ×2 (08:11→20:23)
[2020-06-10] MEDS: [UNRECOGNIZED DRUG - OTHER] XX SCH ×2 (08:12→20:23)
[2020-06-10] MEDS: HYDROGEN PEROXIDE 3% 118 ML BOTTLE TP SCH ×2 (09:31→21:04)
--- NOTE | 2020-06-10 15:30 | NUR ---
NEW ORDER FOR COVID 19 TEST CARRIED OUT.
--- NOTE | 2020-06-10 15:56 | NUR ---
MOTHER MADE AWARE OF PATIENT TESTING.
[2020-06-10] MEDS: JEVITY 1.2 1000 ML LIQUID GT PRN (17:38)
[2020-06-10] MEDS: OMEGA-3 FATTY ACIDS/FISH OIL CAPSULE GT SCH (20:23)
[2020-06-10 20:28] VITALS: BP 118/65
[2020-06-11] MEDS: CHOLECALCIFEROL 1,000 UNIT TABLET GT SCH (05:16)
[2020-06-11] MEDS: OMEPRAZOLE 20 MG CAPSULE.DR GT SCH (05:16)
[2020-06-11] MEDS: LORATADINE 10 MG TABLET GT SCH (05:16)
[2020-06-11 07:56] VITALS: BP 121/56
[2020-06-11] MEDS: Z GUARD REMEDY PASTE 57 GM TUBE TOP SCH ×2 (09:00→21:23)
[2020-06-11] MEDS: VITAMINS A AND D OINT TP SCH (09:00)
[2020-06-11] MEDS: BACLOFEN 10 MG TABLET GT SCH ×2 (09:00→21:23)
[2020-06-11] MEDS: [UNRECOGNIZED DRUG - OTHER] GT SCH ×2 (09:00→21:24)
[2020-06-11] MEDS: [UNRECOGNIZED DRUG - OTHER] XX SCH ×2 (09:01→21:24)
[2020-06-11] MEDS: HEPARIN SODIUM,PORCINE 5,000 UNITS/ML VIAL SQ SCH ×2 (09:03→21:00)
[2020-06-11] MEDS: HYDROGEN PEROXIDE 3% 118 ML BOTTLE TP SCH ×2 (09:05→21:14)
--- NOTE | 2020-06-11 15:28 | NUR ---
INTERDISCIPLINARY PLAN OF CARE CONFERENCE was held today. Patient's parents were not available to participate in the meeting. Dr. Castro and the Interdisciplinary Team reviewed the current plan of care in detail. RN reported on patient's medical condition and on findings of most recent labs. See RN IDT conference notes. No major changes in medical condition were reported by nursing or by other disciplines. See all other disciplines IDT notes and physician's progress notes for additional details.
[2020-06-11] MEDS: JEVITY 1.2 1000 ML LIQUID GT PRN (18:23)
[2020-06-11 20:00] VITALS: BP 103/66
[2020-06-11] MEDS: OMEGA-3 FATTY ACIDS/FISH OIL CAPSULE GT SCH (21:22)
[2020-06-12] MEDS: OMEPRAZOLE 20 MG CAPSULE.DR GT SCH (05:49)
[2020-06-12] MEDS: LORATADINE 10 MG TABLET GT SCH (05:49)
[2020-06-12] MEDS: CHOLECALCIFEROL 1,000 UNIT TABLET GT SCH (05:49)
[2020-06-12 08:03] VITALS: BP 109/51
[2020-06-12] MEDS: HEPARIN SODIUM,PORCINE 5,000 UNITS/ML VIAL SQ SCH ×2 (08:38→21:11)
[2020-06-12] MEDS: VITAMINS A AND D OINT TP SCH (08:40)
[2020-06-12] MEDS: Z GUARD REMEDY PASTE 57 GM TUBE TOP SCH ×2 (08:40→20:25)
[2020-06-12] MEDS: BACLOFEN 10 MG TABLET GT SCH ×2 (08:53→20:25)
[2020-06-12] MEDS: [UNRECOGNIZED DRUG - OTHER] GT SCH ×2 (08:53→20:25)
[2020-06-12] MEDS: [UNRECOGNIZED DRUG - OTHER] XX SCH ×2 (08:53→20:25)
[2020-06-12] MEDS: HYDROGEN PEROXIDE 3% 118 ML BOTTLE TP SCH ×2 (09:00→20:25)
[2020-06-12] MEDS: JEVITY 1.2 1000 ML LIQUID GT PRN (16:49)
--- NOTE | 2020-06-12 18:21 | NUR ---
Lizzette Pt's mother notified COVID 19 results is negative.
[2020-06-12 20:09] VITALS: BP 112/89
[2020-06-12] MEDS: OMEGA-3 FATTY ACIDS/FISH OIL CAPSULE GT SCH (20:25)
[2020-06-13] MEDS: CHOLECALCIFEROL 1,000 UNIT TABLET GT SCH (05:20)
[2020-06-13] MEDS: LORATADINE 10 MG TABLET GT SCH (05:20)
[2020-06-13] MEDS: OMEPRAZOLE 20 MG CAPSULE.DR GT SCH (05:20)
[2020-06-13 07:47] VITALS: BP 107/59
[2020-06-13] MEDS: VITAMINS A AND D OINT TP SCH (08:02)
[2020-06-13] MEDS: [UNRECOGNIZED DRUG - OTHER] GT SCH ×2 (08:02→20:53)
[2020-06-13] MEDS: BACLOFEN 10 MG TABLET GT SCH ×2 (08:02→20:53)
[2020-06-13] MEDS: Z GUARD REMEDY PASTE 57 GM TUBE TOP SCH ×2 (08:02→20:53)
[2020-06-13] MEDS: [UNRECOGNIZED DRUG - OTHER] XX SCH ×2 (08:17→20:53)
[2020-06-13] MEDS: HEPARIN SODIUM,PORCINE 5,000 UNITS/ML VIAL SQ SCH ×2 (08:20→21:57)
[2020-06-13] MEDS: HYDROGEN PEROXIDE 3% 118 ML BOTTLE TP SCH ×2 (09:00→20:50)
[2020-06-13] MEDS: JEVITY 1.2 1000 ML LIQUID GT PRN (11:06)
[2020-06-13 20:00] VITALS: BP 109/70
[2020-06-13] MEDS: OMEGA-3 FATTY ACIDS/FISH OIL CAPSULE GT SCH (20:53)
[2020-06-14] MEDS: CHOLECALCIFEROL 1,000 UNIT TABLET GT SCH (05:53)
[2020-06-14] MEDS: LORATADINE 10 MG TABLET GT SCH (05:53)
[2020-06-14] MEDS: OMEPRAZOLE 20 MG CAPSULE.DR GT SCH (05:53)
[2020-06-14 07:54] VITALS: BP 111/63
[2020-06-14] MEDS: HEPARIN SODIUM,PORCINE 5,000 UNITS/ML VIAL SQ SCH ×2 (08:51→21:00)
[2020-06-14] MEDS: BACLOFEN 10 MG TABLET GT SCH ×2 (08:54→21:01)
[2020-06-14] MEDS: [UNRECOGNIZED DRUG - OTHER] GT SCH ×2 (08:54→21:01)
[2020-06-14] MEDS: Z GUARD REMEDY PASTE 57 GM TUBE TOP SCH ×2 (08:55→21:01)
[2020-06-14] MEDS: VITAMINS A AND D OINT TP SCH (08:55)
[2020-06-14] MEDS: [UNRECOGNIZED DRUG - OTHER] XX SCH ×2 (08:57→21:02)
[2020-06-14] MEDS: HYDROGEN PEROXIDE 3% 118 ML BOTTLE TP SCH ×2 (09:00→21:29)
[2020-06-14] MEDS: JEVITY 1.2 1000 ML LIQUID GT PRN (10:07)
[2020-06-14 20:57] VITALS: BP 121/63
[2020-06-14] MEDS: OMEGA-3 FATTY ACIDS/FISH OIL CAPSULE GT SCH (21:01)
[2020-06-15] MEDS: JEVITY 1.2 1000 ML LIQUID GT PRN (03:24)
[2020-06-15] MEDS: CHOLECALCIFEROL 1,000 UNIT TABLET GT SCH (05:07)
[2020-06-15] MEDS: LORATADINE 10 MG TABLET GT SCH (05:07)
[2020-06-15] MEDS: OMEPRAZOLE 20 MG CAPSULE.DR GT SCH (05:07)
[2020-06-15 07:49] VITALS: BP 132/81
[2020-06-15] MEDS: [UNRECOGNIZED DRUG - OTHER] GT SCH ×2 (08:50→20:42)
[2020-06-15] MEDS: BACLOFEN 10 MG TABLET GT SCH ×2 (08:50→20:42)
[2020-06-15] MEDS: Z GUARD REMEDY PASTE 57 GM TUBE TOP SCH ×2 (08:51→20:42)
[2020-06-15] MEDS: HEPARIN SODIUM,PORCINE 5,000 UNITS/ML VIAL SQ SCH ×2 (08:51→22:00)
[2020-06-15] MEDS: HYDROGEN PEROXIDE 3% 118 ML BOTTLE TP SCH ×2 (08:52→21:07)
[2020-06-15] MEDS: VITAMINS A AND D OINT TP SCH (08:52)
[2020-06-15] MEDS: [UNRECOGNIZED DRUG - OTHER] XX SCH ×2 (08:52→20:43)
[2020-06-15] MEDS: OMEGA-3 FATTY ACIDS/FISH OIL CAPSULE GT SCH (20:42)
[2020-06-15 20:43] VITALS: BP 107/61
[2020-06-16] MEDS: JEVITY 1.2 1000 ML LIQUID GT PRN (00:35)
[2020-06-16] MEDS: LORATADINE 10 MG TABLET GT SCH (05:37)
[2020-06-16] MEDS: CHOLECALCIFEROL 1,000 UNIT TABLET GT SCH (05:38)
[2020-06-16] MEDS: OMEPRAZOLE 20 MG CAPSULE.DR GT SCH (05:38)
--- NOTE | 2020-06-16 08:00 | NUR ---
Reported by Steam And Gas Turbines Assembler,found gastrostomy out,tried to replace it as ordered,but unable to reinserted,due to resistance inside the stoma .
[2020-06-16 08:02] VITALS: BP 126/54
--- NOTE | 2020-06-16 08:45 | NUR ---
Dr leavitt call back aware of the Gt is out,with new orders noted to transfer pt to Er ,for Gt reinsertion,Lizzette pt's mother aware.
[2020-06-16] MEDS: VITAMINS A AND D OINT TP SCH (09:00)
--- NOTE | 2020-06-16 09:40 | NUR ---
Pt transfer to Er,report given to Ning Shukla.
--- NOTE | 2020-06-16 14:15 | NUR ---
Patient brought up from ER in bed. He is awake, eyes are open, unable to assess orientation. Patient shows no signs of respiratory distress at this time. Patient G-tube in out and patient is severely contracted. Patient has a mask on because he has been spitting at staff. Patient seems agitated when we try to reposition in bed. Patient is a aspiration risk so bed is elevated to 35 degrees. Patient is NPO. No IV access available. Safety precautions in place, be in the lowest position and locked with alarm activated. Will continue to observe and monitor.
--- NOTE | 2020-06-17 17:55 | NUR ---
Patient re-admitted to subacute unit, new gtube #20 was inserted, ok to use new gtube for water flushes and feeding, bp 112/66, p 88, r 18, o2sat 98 temp 101.2, cooling measures given, Dr. Diaz, notified of patient's condition, all orders verified, new orders given to do cbc, cmp, blood cultures x2, procalcitonin, urine c+s, Mother notified of son's condition.
[2020-06-17 18:00] VITALS: BP_SYST 112; BP_DIAS 64; BP_DIAS 66
[2020-06-17 20:00] VITALS: BP 110/60
--- NOTE | 2020-06-17 20:00 | NUR ---
pt in bed awake responsive on o2 trach with mask o2 sat 98% temp 99.9 p 100/min.according per md order labs cbc cmp blood c/s time2 procalcitonin,ua , urine c/s and chest x-ray.per contestant coordinator unable to get blood drow from pt and will be back again noted.
[2020-06-17] MEDS: HEPARIN SODIUM,PORCINE 5,000 UNITS/ML VIAL SQ SCH (21:00)
[2020-06-17] MEDS: [UNRECOGNIZED DRUG - OTHER] GT SCH (21:00)
[2020-06-17] MEDS: BACLOFEN 10 MG TABLET GT SCH (21:00)
[2020-06-17] MEDS: OMEGA-3 FATTY ACIDS/FISH OIL CAPSULE GT SCH (21:00)
[2020-06-17] MEDS: [UNRECOGNIZED DRUG - OTHER] XX SCH (21:00)
[2020-06-17] MEDS: Z GUARD REMEDY PASTE 57 GM TUBE TOP SCH (21:00)
--- NOTE | 2020-06-17 21:30 | NUR ---
ua & urine c/s was collected as order.senior electronics engineer came back and unble to get blood draw from pt noted.
[2020-06-17 21:44] LABS: *BILIRUBIN,URIN NEGATIVE (NEGATIVE); *CLARITY,URINE CLEAR (CLEAR); *COLOR,URINE AMBER (YELLOW); *KETONES,URINE NEGATIVE (NEGATIVE); *UROBILINOGEN,URINE 0.2 E.U./dl (NORMAL); LEUKOCYTE ESTERASE ,URINE NEGATIVE (NEGATIVE); NITRITE, URINE NEGATIVE (NEGATIVE); UGLUCOSE NEGATIVE (NEGATIVE)
[2020-06-17] MEDS: HYDROGEN PEROXIDE 3% 118 ML BOTTLE TP SCH (21:55)
[2020-06-17 21:56] LABS: *BLOOD, URINE TRACE INTACT (NEGATIVE)
[2020-06-17 22:24] LABS: BACTERIA,URINE NONE SEEN /HPF (NONE SEEN); MUCUS,URINE FEW /LPF (0-FEW); SQUAMOUS EPITHELIAL CELL,UR FEW /HPF (NONE SEEN); WBC,URINE 0-3 /HPF (0-3)
--- NOTE | 2020-06-17 22:30 | NUR ---
able to get blood draw by nurse and awaiting for lab result.
[2020-06-18 00:10] VITALS: BP 101/61
[2020-06-18 02:16] VITALS: BP 104/55
--- NOTE | 2020-06-18 03:33 | NUR ---
wire frame lamp shade maker came back to draw blood again due to hemolysis noted.
[2020-06-18 03:41] LABS: BASOPHILS % (AUTO) 0.3 % (0.0-2.0); EOSINOPHILS # (AUTO) 0.2 K/uL (0.0-0.7); EOSINOPHILS % (AUTO) 1.7 % (0.0-7.0); HEMATOCRIT 38.2 % (36.7-47.1); HEMOGLOBIN 13.4 g/dL (12.5-16.3); LYMPHOCYTES # (AUTO) 2.7 K/uL (20.0-40.0); LYMPHOCYTES % (AUTO) 29.1 % (20.5-51.5); MEAN CORPUSCULAR HEMOGLOBIN 32.4 uug (23.8-33.4); MEAN CORPUSCULAR HGB CONC 35 g/dL (32.5-36.3); MEAN CORPUSCULAR VOLUME 92.2 fL (73.0-96.2); MONOCYTES # (AUTO) 1.6 K/uL (2.0-10.0); MONOCYTES % (AUTO) 16.5 % (0.0-11.0); NEUTROPHILS # (AUTO) 4.9 K/uL (1.8-8.9); NEUTROPHILS % (AUTO) 52.4 % (38.5-71.5); PLATELET COUNT (AUTO) 195 K/uL (152-348); RED BLOOD CELL COUNT(AUTO) 4.15 MIL/uL (4.06-5.63); WHITE BLOOD COUNT (AUTO) 9.4 K/uL (3.6-10.2)
[2020-06-18 03:46] LABS: BILIRUBIN,TOTAL 0.8 mg/dL (0.2-1.0); CREATININE 0.8 mg/dL (0.6-1.3); POTASSIUM 3.7 mmol/L (3.5-5.1); TOTAL PROTEIN, SERUM 6.6 g/dL (6.4-8.2)
[2020-06-18 04:15] LABS: EOSINOPHILS % (MANUAL) 2 % (0-8); LYMPHOCYTES % (MANUAL) 24 % (20-40); MONOCYTES % (MANUAL) 13 % (2-10); NEUTROPHILS % (MANUAL) 61 % (42-75)
[2020-06-18 06:10] VITALS: BP 120/56
[2020-06-18] MEDS: CHOLECALCIFEROL 1,000 UNIT TABLET GT SCH (06:58)
[2020-06-18] MEDS: LORATADINE 10 MG TABLET GT SCH (06:58)
[2020-06-18] MEDS: OMEPRAZOLE 20 MG CAPSULE.DR GT SCH (06:58)
[2020-06-18 07:43] VITALS: BP 102/59
[2020-06-18] MEDS: BACLOFEN 10 MG TABLET GT SCH ×2 (09:00→21:19)
[2020-06-18] MEDS: VITAMINS A AND D OINT TP SCH (09:00)
[2020-06-18] MEDS: [UNRECOGNIZED DRUG - OTHER] XX SCH ×2 (09:00→21:20)
[2020-06-18] MEDS: HEPARIN SODIUM,PORCINE 5,000 UNITS/ML VIAL SQ SCH ×2 (09:00→21:00)
[2020-06-18] MEDS: [UNRECOGNIZED DRUG - OTHER] GT SCH ×2 (09:00→21:19)
[2020-06-18] MEDS: Z GUARD REMEDY PASTE 57 GM TUBE TOP SCH ×2 (09:00→21:20)
[2020-06-18] MEDS: HYDROGEN PEROXIDE 3% 118 ML BOTTLE TP SCH ×2 (09:28→21:14)
[2020-06-18 20:00] VITALS: BP 118/67
--- NOTE | 2020-06-18 20:00 | NUR ---
Temperature is 100.2, skin is warm to touch, cooling measures given, no signs of respiratory distress noted. Fluids given as ordered, will continue monitor.
[2020-06-18] MEDS: OMEGA-3 FATTY ACIDS/FISH OIL CAPSULE GT SCH (21:19)
[2020-06-18] MEDS: ACETAMINOPHEN 650 MG/20 ML UDC- SA PATIENTS-PAIN ONLY GT PRN (22:58)
[2020-06-19] VITALS: BP 114/55
[2020-06-19 04:00] VITALS: BP 94/56
[2020-06-19] MEDS: OMEPRAZOLE 20 MG CAPSULE.DR GT SCH (05:29)
[2020-06-19] MEDS: LORATADINE 10 MG TABLET GT SCH (05:29)
[2020-06-19] MEDS: CHOLECALCIFEROL 1,000 UNIT TABLET GT SCH (05:29)
[2020-06-19] MEDS: HYDROGEN PEROXIDE 3% 118 ML BOTTLE TP SCH ×2 (07:25→20:40)
[2020-06-19 08:00] VITALS: BP 121/68
[2020-06-19] MEDS: BACLOFEN 10 MG TABLET GT SCH ×2 (08:54→20:39)
[2020-06-19] MEDS: [UNRECOGNIZED DRUG - OTHER] GT SCH ×2 (08:54→20:40)
[2020-06-19] MEDS: VITAMINS A AND D OINT TP SCH (08:55)
[2020-06-19] MEDS: Z GUARD REMEDY PASTE 57 GM TUBE TOP SCH ×2 (08:55→20:40)
[2020-06-19] MEDS: [UNRECOGNIZED DRUG - OTHER] XX SCH ×2 (08:55→20:40)
[2020-06-19] MEDS: HEPARIN SODIUM,PORCINE 5,000 UNITS/ML VIAL SQ SCH ×2 (08:55→20:41)
[2020-06-19 20:00] VITALS: BP 123/75
[2020-06-19] MEDS: OMEGA-3 FATTY ACIDS/FISH OIL CAPSULE GT SCH (20:39)
--- NOTE | 2020-06-20 | NUR ---
Patient is afebrile, gt feeding tolerating well, GT is intact and patent, no signs of any distress, turned and repositioned, kept clean and comfortable. Addendum: 06/20/20 at 0535 by SREE LOYA RN STRAIGHTENING PRESS OPERATOR HELPER called and stated that PEG was out of place, inserted GT at this time, will order stat KUB to check for placement, will hold GT feeding and meds and will restart when GT proper GT placement is confirmed, Notified Dr. Diaz.
[2020-06-20] MEDS: LORATADINE 10 MG TABLET GT SCH (05:16)
[2020-06-20] MEDS: OMEPRAZOLE 20 MG CAPSULE.DR GT SCH (05:16)
[2020-06-20] MEDS: CHOLECALCIFEROL 1,000 UNIT TABLET GT SCH (05:16)
--- NOTE | 2020-06-20 07:59 | NUR ---
KUB resulted and is on satisfactory position, will start meds and feeding, Lizzette (Mother) was made aware and she requested to give Tylenol in case he has pain.
[2020-06-20 08:00] VITALS: BP 121/68
[2020-06-20] MEDS: HEPARIN SODIUM,PORCINE 5,000 UNITS/ML VIAL SQ SCH ×2 (08:10→21:14)
[2020-06-20] MEDS: Z GUARD REMEDY PASTE 57 GM TUBE TOP SCH ×2 (08:14→21:14)
[2020-06-20] MEDS: BACLOFEN 10 MG TABLET GT SCH ×2 (08:14→21:13)
[2020-06-20] MEDS: [UNRECOGNIZED DRUG - OTHER] GT SCH ×2 (08:14→21:13)
[2020-06-20] MEDS: VITAMINS A AND D OINT TP SCH (08:15)
[2020-06-20] MEDS: [UNRECOGNIZED DRUG - OTHER] XX SCH ×2 (08:15→21:14)
[2020-06-20] MEDS: HYDROGEN PEROXIDE 3% 118 ML BOTTLE TP SCH ×2 (09:00→21:07)
--- NOTE | 2020-06-20 09:04 | NUR ---
PT. WAS SEEN AND EXAMINED BY DR. SANTA AND WITH NNO BUT AWARE OF KUB RESULT WITH GASTROGRAFIN AND OK TO USE IT.
[2020-06-20 20:00] VITALS: BP 106/70
[2020-06-20] MEDS: OMEGA-3 FATTY ACIDS/FISH OIL CAPSULE GT SCH (21:13)
--- NOTE | 2020-06-20 22:15 | NUR ---
Afebrile, trach intact and patent, no signs of any distress, GT in place and is patent, flushing smoothly, no signs of any pain or discomfort at this time.
[2020-06-21] MEDS: LORATADINE 10 MG TABLET GT SCH (06:02)
[2020-06-21] MEDS: OMEPRAZOLE 20 MG CAPSULE.DR GT SCH (06:02)
[2020-06-21] MEDS: CHOLECALCIFEROL 1,000 UNIT TABLET GT SCH (06:02)
[2020-06-21 07:55] VITALS: BP 116/71
[2020-06-21] MEDS: BACLOFEN 10 MG TABLET GT SCH ×2 (08:37→20:21)
[2020-06-21] MEDS: Z GUARD REMEDY PASTE 57 GM TUBE TOP SCH ×2 (08:38→20:21)
[2020-06-21] MEDS: [UNRECOGNIZED DRUG - OTHER] GT SCH ×2 (08:38→20:21)
[2020-06-21] MEDS: HEPARIN SODIUM,PORCINE 5,000 UNITS/ML VIAL SQ SCH ×2 (08:40→20:21)
[2020-06-21] MEDS: VITAMINS A AND D OINT TP SCH (08:40)
[2020-06-21] MEDS: HYDROGEN PEROXIDE 3% 118 ML BOTTLE TP SCH ×2 (09:00→21:15)
[2020-06-21] MEDS: [UNRECOGNIZED DRUG - OTHER] XX SCH ×2 (09:00→20:21)
[2020-06-21] MEDS: JEVITY 1.2 1000 ML LIQUID GT PRN (16:39)
[2020-06-21 20:05] VITALS: BP 92/63
[2020-06-21] MEDS: OMEGA-3 FATTY ACIDS/FISH OIL CAPSULE GT SCH (20:21)
[2020-06-22] MEDS: LORATADINE 10 MG TABLET GT SCH (05:27)
[2020-06-22] MEDS: CHOLECALCIFEROL 1,000 UNIT TABLET GT SCH (05:27)
[2020-06-22] MEDS: OMEPRAZOLE 20 MG CAPSULE.DR GT SCH (05:27)
[2020-06-22 07:59] VITALS: BP 115/68
[2020-06-22] MEDS: BACLOFEN 10 MG TABLET GT SCH ×2 (08:48→20:18)
[2020-06-22] MEDS: [UNRECOGNIZED DRUG - OTHER] GT SCH ×2 (08:48→20:18)
[2020-06-22] MEDS: [UNRECOGNIZED DRUG - OTHER] XX SCH ×2 (08:49→20:18)
[2020-06-22] MEDS: VITAMINS A AND D OINT TP SCH (08:49)
[2020-06-22] MEDS: Z GUARD REMEDY PASTE 57 GM TUBE TOP SCH ×2 (08:49→20:18)
[2020-06-22] MEDS: HEPARIN SODIUM,PORCINE 5,000 UNITS/ML VIAL SQ SCH ×2 (08:49→20:18)
[2020-06-22] MEDS: HYDROGEN PEROXIDE 3% 118 ML BOTTLE TP SCH ×2 (09:07→21:25)
[2020-06-22] MEDS: JEVITY 1.2 1000 ML LIQUID GT PRN (12:42)
--- NOTE | 2020-06-22 18:50 | NUR ---
NEW ORDER WAS CARRIED OUT FOR ABDOMINAL BINDER FROM DR. BETHEA TO PREVENT PT. PULLING OUT G. TUBE WHEN FLEXED UPPER EXTREMITIES FRICTION ABDOMEN WHEN COUGHING AND CHECKING SKIN Q 2 HRS FOR ANY SKIN BREAKDOWN AND APPLYING A THIN CLOTH BETWEEN BINDER AND PT'S SKIN PER PT'S MOTHER' S REQUEST.
[2020-06-22] MEDS: OMEGA-3 FATTY ACIDS/FISH OIL CAPSULE GT SCH (20:18)
[2020-06-23] MEDS: OMEPRAZOLE 20 MG CAPSULE.DR GT SCH (05:40)
[2020-06-23] MEDS: LORATADINE 10 MG TABLET GT SCH (05:40)
[2020-06-23] MEDS: CHOLECALCIFEROL 1,000 UNIT TABLET GT SCH (05:40)
[2020-06-23 07:35] VITALS: BP 98/45
[2020-06-23] MEDS: [UNRECOGNIZED DRUG - OTHER] GT SCH ×2 (08:01→20:35)
[2020-06-23] MEDS: BACLOFEN 10 MG TABLET GT SCH ×2 (08:01→20:35)
[2020-06-23] MEDS: HEPARIN SODIUM,PORCINE 5,000 UNITS/ML VIAL SQ SCH ×2 (08:02→20:35)
[2020-06-23] MEDS: Z GUARD REMEDY PASTE 57 GM TUBE TOP SCH ×2 (08:02→20:35)
[2020-06-23] MEDS: [UNRECOGNIZED DRUG - OTHER] XX SCH ×2 (08:02→20:36)
[2020-06-23] MEDS: VITAMINS A AND D OINT TP SCH (08:02)
[2020-06-23] MEDS: HYDROGEN PEROXIDE 3% 118 ML BOTTLE TP SCH ×2 (08:53→21:25)
[2020-06-23] MEDS: JEVITY 1.2 1000 ML LIQUID GT PRN (16:10)
[2020-06-23 19:50] VITALS: BP 113/55
[2020-06-23] MEDS: OMEGA-3 FATTY ACIDS/FISH OIL CAPSULE GT SCH (20:35)
[2020-06-24] MEDS: OMEPRAZOLE 20 MG CAPSULE.DR GT SCH (06:00)
[2020-06-24] MEDS: LORATADINE 10 MG TABLET GT SCH (06:00)
[2020-06-24] MEDS: CHOLECALCIFEROL 1,000 UNIT TABLET GT SCH (06:00)
[2020-06-24 07:30] VITALS: BP 111/68
[2020-06-24] MEDS: HYDROGEN PEROXIDE 3% 118 ML BOTTLE TP SCH ×2 (08:21→21:32)
[2020-06-24] MEDS: BACLOFEN 10 MG TABLET GT SCH ×2 (09:10→20:51)
[2020-06-24] MEDS: [UNRECOGNIZED DRUG - OTHER] GT SCH ×2 (09:12→20:51)
[2020-06-24] MEDS: HEPARIN SODIUM,PORCINE 5,000 UNITS/ML VIAL SQ SCH ×2 (09:13→21:52)
[2020-06-24] MEDS: Z GUARD REMEDY PASTE 57 GM TUBE TOP SCH ×2 (09:13→20:51)
[2020-06-24] MEDS: [UNRECOGNIZED DRUG - OTHER] XX SCH ×2 (09:13→20:51)
[2020-06-24] MEDS: VITAMINS A AND D OINT TP SCH (09:13)
[2020-06-24] MEDS: JEVITY 1.2 1000 ML LIQUID GT PRN (13:35)
[2020-06-24 20:16] VITALS: BP 119/63
[2020-06-24] MEDS: OMEGA-3 FATTY ACIDS/FISH OIL CAPSULE GT SCH (20:51)
[2020-06-25] MEDS: OMEPRAZOLE 20 MG CAPSULE.DR GT SCH (06:52)
[2020-06-25] MEDS: LORATADINE 10 MG TABLET GT SCH (06:52)
[2020-06-25] MEDS: CHOLECALCIFEROL 1,000 UNIT TABLET GT SCH (06:52)
[2020-06-25] MEDS: HYDROGEN PEROXIDE 3% 118 ML BOTTLE TP SCH ×2 (07:13→21:15)
[2020-06-25 07:31] VITALS: BP 111/69
[2020-06-25] MEDS: Z GUARD REMEDY PASTE 57 GM TUBE TOP SCH ×2 (08:30→20:31)
[2020-06-25] MEDS: [UNRECOGNIZED DRUG - OTHER] XX SCH ×2 (08:30→20:32)
[2020-06-25] MEDS: VITAMINS A AND D OINT TP SCH (08:30)
[2020-06-25] MEDS: [UNRECOGNIZED DRUG - OTHER] GT SCH ×2 (08:31→20:31)
[2020-06-25] MEDS: BACLOFEN 10 MG TABLET GT SCH ×2 (08:31→20:31)
[2020-06-25] MEDS: HEPARIN SODIUM,PORCINE 5,000 UNITS/ML VIAL SQ SCH ×2 (08:33→21:09)
[2020-06-25] MEDS: JEVITY 1.2 1000 ML LIQUID GT PRN (14:06)
[2020-06-25 20:00] VITALS: BP 107/68
[2020-06-25] MEDS: OMEGA-3 FATTY ACIDS/FISH OIL CAPSULE GT SCH (20:31)
--- NOTE | 2020-06-25 21:15 | NUR ---
Received patient in stable respiratory condition on cool aerosol 28% FiO2. No SOB noted. Trach care done. Airway is patent and secured. Ambubag and spare trach at bedside. Will continue to monitor.
[2020-06-26] MEDS: OMEPRAZOLE 20 MG CAPSULE.DR GT SCH (06:44)
[2020-06-26] MEDS: LORATADINE 10 MG TABLET GT SCH (06:44)
[2020-06-26] MEDS: CHOLECALCIFEROL 1,000 UNIT TABLET GT SCH (06:44)
[2020-06-26] MEDS: JEVITY 1.2 1000 ML LIQUID GT PRN (06:44)
[2020-06-26] MEDS: HYDROGEN PEROXIDE 3% 118 ML BOTTLE TP SCH ×2 (07:15→21:59)
[2020-06-26 07:43] VITALS: BP 93/54
[2020-06-26] MEDS: BACLOFEN 10 MG TABLET GT SCH ×2 (08:23→20:24)
[2020-06-26] MEDS: [UNRECOGNIZED DRUG - OTHER] GT SCH ×2 (08:24→20:24)
[2020-06-26] MEDS: HEPARIN SODIUM,PORCINE 5,000 UNITS/ML VIAL SQ SCH ×2 (08:27→21:00)
[2020-06-26] MEDS: Z GUARD REMEDY PASTE 57 GM TUBE TOP SCH ×2 (08:28→20:24)
[2020-06-26] MEDS: VITAMINS A AND D OINT TP SCH (08:28)
[2020-06-26] MEDS: [UNRECOGNIZED DRUG - OTHER] XX SCH ×2 (08:28→20:25)
[2020-06-26 20:00] VITALS: BP 97/50
[2020-06-26] MEDS: OMEGA-3 FATTY ACIDS/FISH OIL CAPSULE GT SCH (20:24)
[2020-06-27] MEDS: JEVITY 1.2 1000 ML LIQUID GT PRN (06:55)
[2020-06-27] MEDS: LORATADINE 10 MG TABLET GT SCH (06:55)
[2020-06-27] MEDS: CHOLECALCIFEROL 1,000 UNIT TABLET GT SCH (06:55)
[2020-06-27] MEDS: OMEPRAZOLE 20 MG CAPSULE.DR GT SCH (06:55)
[2020-06-27 07:45] VITALS: BP 110/58
[2020-06-27] MEDS: Z GUARD REMEDY PASTE 57 GM TUBE TOP SCH ×2 (08:58→20:27)
[2020-06-27] MEDS: BACLOFEN 10 MG TABLET GT SCH ×2 (08:58→20:27)
[2020-06-27] MEDS: [UNRECOGNIZED DRUG - OTHER] GT SCH ×2 (08:58→20:27)
[2020-06-27] MEDS: VITAMINS A AND D OINT TP SCH (08:58)
[2020-06-27] MEDS: [UNRECOGNIZED DRUG - OTHER] XX SCH ×2 (08:58→20:27)
[2020-06-27] MEDS: HEPARIN SODIUM,PORCINE 5,000 UNITS/ML VIAL SQ SCH ×2 (08:58→20:33)
[2020-06-27] MEDS: HYDROGEN PEROXIDE 3% 118 ML BOTTLE TP SCH ×2 (09:43→21:06)
[2020-06-27 20:00] VITALS: BP 109/73
[2020-06-27] MEDS: OMEGA-3 FATTY ACIDS/FISH OIL CAPSULE GT SCH (20:27)
[2020-06-28] MEDS: OMEPRAZOLE 20 MG CAPSULE.DR GT SCH (06:23)
[2020-06-28] MEDS: CHOLECALCIFEROL 1,000 UNIT TABLET GT SCH (06:23)
[2020-06-28] MEDS: LORATADINE 10 MG TABLET GT SCH (06:23)
[2020-06-28 07:38] VITALS: BP 124/63
[2020-06-28] MEDS: HEPARIN SODIUM,PORCINE 5,000 UNITS/ML VIAL SQ SCH ×2 (08:31→21:00)
[2020-06-28] MEDS: VITAMINS A AND D OINT TP SCH (08:32)
[2020-06-28] MEDS: [UNRECOGNIZED DRUG - OTHER] GT SCH ×2 (08:32→21:00)
[2020-06-28] MEDS: Z GUARD REMEDY PASTE 57 GM TUBE TOP SCH ×2 (08:32→21:00)
[2020-06-28] MEDS: BACLOFEN 10 MG TABLET GT SCH ×2 (08:32→21:00)
[2020-06-28] MEDS: [UNRECOGNIZED DRUG - OTHER] XX SCH ×2 (08:32→21:00)
[2020-06-28] MEDS: HYDROGEN PEROXIDE 3% 118 ML BOTTLE TP SCH ×2 (08:58→21:21)
[2020-06-28] MEDS: JEVITY 1.2 1000 ML LIQUID GT PRN (13:15)
[2020-06-28] MEDS: OMEGA-3 FATTY ACIDS/FISH OIL CAPSULE GT SCH (21:00)
[2020-06-28 22:59] VITALS: BP 107/70
[2020-06-29] MEDS: CHOLECALCIFEROL 1,000 UNIT TABLET GT SCH (06:33)
[2020-06-29] MEDS: OMEPRAZOLE 20 MG CAPSULE.DR GT SCH (06:33)
[2020-06-29] MEDS: LORATADINE 10 MG TABLET GT SCH (06:33)
[2020-06-29] MEDS: HEPARIN SODIUM,PORCINE 5,000 UNITS/ML VIAL SQ SCH ×2 (08:03→20:43)
[2020-06-29] MEDS: [UNRECOGNIZED DRUG - OTHER] GT SCH ×2 (08:04→20:41)
[2020-06-29] MEDS: [UNRECOGNIZED DRUG - OTHER] XX SCH ×2 (08:04→20:42)
[2020-06-29] MEDS: BACLOFEN 10 MG TABLET GT SCH ×2 (08:04→20:41)
[2020-06-29] MEDS: Z GUARD REMEDY PASTE 57 GM TUBE TOP SCH ×2 (08:04→20:41)
[2020-06-29] MEDS: VITAMINS A AND D OINT TP SCH (08:04)
[2020-06-29 08:10] VITALS: BP 127/66
[2020-06-29] MEDS: HYDROGEN PEROXIDE 3% 118 ML BOTTLE TP SCH ×2 (09:05→21:43)
[2020-06-29] MEDS: JEVITY 1.2 1000 ML LIQUID GT PRN (10:34)
[2020-06-29] MEDS: OMEGA-3 FATTY ACIDS/FISH OIL CAPSULE GT SCH (20:41)
[2020-06-29 23:06] VITALS: BP 127/78
[2020-06-30] MEDS: JEVITY 1.2 1000 ML LIQUID GT PRN (03:06)
[2020-06-30] MEDS: LORATADINE 10 MG TABLET GT SCH (06:12)
[2020-06-30] MEDS: CHOLECALCIFEROL 1,000 UNIT TABLET GT SCH (06:12)
[2020-06-30] MEDS: OMEPRAZOLE 20 MG CAPSULE.DR GT SCH (06:12)
[2020-06-30] MEDS: HYDROGEN PEROXIDE 3% 118 ML BOTTLE TP SCH ×2 (07:35→20:42)
[2020-06-30 07:42] VITALS: BP 109/61
[2020-06-30] MEDS: [UNRECOGNIZED DRUG - OTHER] GT SCH ×2 (08:06→20:47)
[2020-06-30] MEDS: BACLOFEN 10 MG TABLET GT SCH ×2 (08:06→20:47)
[2020-06-30] MEDS: Z GUARD REMEDY PASTE 57 GM TUBE TOP SCH ×2 (08:07→20:47)
[2020-06-30] MEDS: VITAMINS A AND D OINT TP SCH (08:07)
[2020-06-30] MEDS: [UNRECOGNIZED DRUG - OTHER] XX SCH ×2 (08:07→20:47)
[2020-06-30] MEDS: HEPARIN SODIUM,PORCINE 5,000 UNITS/ML VIAL SQ SCH ×2 (08:08→21:00)
[2020-06-30] MEDS: OMEGA-3 FATTY ACIDS/FISH OIL CAPSULE GT SCH (20:47)
[2020-06-30 23:17] VITALS: BP 100/71
[2020-07-01] MEDS: JEVITY 1.2 1000 ML LIQUID GT PRN (03:21)
[2020-07-01] MEDS: OMEPRAZOLE 20 MG CAPSULE.DR GT SCH (06:41)
[2020-07-01] MEDS: CHOLECALCIFEROL 1,000 UNIT TABLET GT SCH (06:41)
[2020-07-01] MEDS: LORATADINE 10 MG TABLET GT SCH (06:41)
[2020-07-01 07:26] VITALS: BP 100/78
[2020-07-01] MEDS: HYDROGEN PEROXIDE 3% 118 ML BOTTLE TP SCH ×2 (07:50→21:21)
[2020-07-01] MEDS: [UNRECOGNIZED DRUG - OTHER] XX SCH ×2 (09:04→20:52)
[2020-07-01] MEDS: HEPARIN SODIUM,PORCINE 5,000 UNITS/ML VIAL SQ SCH ×2 (09:04→21:00)
[2020-07-01] MEDS: [UNRECOGNIZED DRUG - OTHER] GT SCH ×2 (09:04→20:51)
[2020-07-01] MEDS: VITAMINS A AND D OINT TP SCH (09:04)
[2020-07-01] MEDS: BACLOFEN 10 MG TABLET GT SCH ×2 (09:04→20:51)
[2020-07-01] MEDS: Z GUARD REMEDY PASTE 57 GM TUBE TOP SCH ×2 (09:04→20:51)
[2020-07-01 20:14] VITALS: BP 120/66
[2020-07-01] MEDS: OMEGA-3 FATTY ACIDS/FISH OIL CAPSULE GT SCH (20:51)
[2020-07-02] MEDS: JEVITY 1.2 1000 ML LIQUID GT PRN (01:20)
[2020-07-02] MEDS: OMEPRAZOLE 20 MG CAPSULE.DR GT SCH (05:27)
[2020-07-02] MEDS: CHOLECALCIFEROL 1,000 UNIT TABLET GT SCH (05:27)
[2020-07-02] MEDS: LORATADINE 10 MG TABLET GT SCH (05:27)
[2020-07-02 07:27] VITALS: BP 102/50
[2020-07-02] MEDS: BACLOFEN 10 MG TABLET GT SCH ×2 (08:29→20:59)
[2020-07-02] MEDS: [UNRECOGNIZED DRUG - OTHER] GT SCH ×2 (08:29→20:59)
[2020-07-02] MEDS: HEPARIN SODIUM,PORCINE 5,000 UNITS/ML VIAL SQ SCH ×2 (08:29→20:59)
[2020-07-02] MEDS: Z GUARD REMEDY PASTE 57 GM TUBE TOP SCH ×2 (08:29→20:59)
[2020-07-02] MEDS: VITAMINS A AND D OINT TP SCH (08:29)
[2020-07-02] MEDS: [UNRECOGNIZED DRUG - OTHER] XX SCH ×2 (08:29→21:00)
[2020-07-02] MEDS: HYDROGEN PEROXIDE 3% 118 ML BOTTLE TP SCH ×2 (08:38→21:51)
[2020-07-02 20:14] VITALS: BP 131/73
[2020-07-02] MEDS: OMEGA-3 FATTY ACIDS/FISH OIL CAPSULE GT SCH (20:54)
[2020-07-03] MEDS: OMEPRAZOLE 20 MG CAPSULE.DR GT SCH (05:48)
[2020-07-03] MEDS: LORATADINE 10 MG TABLET GT SCH (05:48)
[2020-07-03] MEDS: CHOLECALCIFEROL 1,000 UNIT TABLET GT SCH (05:48)
[2020-07-03 07:22] VITALS: BP 109/40
[2020-07-03] MEDS: BACLOFEN 10 MG TABLET GT SCH ×2 (08:26→20:45)
[2020-07-03] MEDS: Z GUARD REMEDY PASTE 57 GM TUBE TOP SCH ×2 (08:27→20:47)
[2020-07-03] MEDS: [UNRECOGNIZED DRUG - OTHER] GT SCH ×2 (08:27→20:46)
[2020-07-03] MEDS: HEPARIN SODIUM,PORCINE 5,000 UNITS/ML VIAL SQ SCH ×2 (08:29→20:47)
[2020-07-03] MEDS: [UNRECOGNIZED DRUG - OTHER] XX SCH ×2 (09:00→20:47)
[2020-07-03] MEDS: VITAMINS A AND D OINT TP SCH (09:00)
[2020-07-03] MEDS: HYDROGEN PEROXIDE 3% 118 ML BOTTLE TP SCH ×2 (09:12→21:03)
[2020-07-03] MEDS: JEVITY 1.2 1000 ML LIQUID GT PRN (16:58)
[2020-07-03 20:07] VITALS: BP 137/67
[2020-07-03] MEDS: OMEGA-3 FATTY ACIDS/FISH OIL CAPSULE GT SCH (20:44)
[2020-07-04] MEDS: OMEPRAZOLE 20 MG CAPSULE.DR GT SCH (05:58)
[2020-07-04] MEDS: CHOLECALCIFEROL 1,000 UNIT TABLET GT SCH (05:58)
[2020-07-04] MEDS: LORATADINE 10 MG TABLET GT SCH (05:58)
[2020-07-04] MEDS: BACLOFEN 10 MG TABLET GT SCH ×2 (08:01→21:05)
[2020-07-04] MEDS: [UNRECOGNIZED DRUG - OTHER] GT SCH ×2 (08:01→21:06)
[2020-07-04] MEDS: [UNRECOGNIZED DRUG - OTHER] XX SCH ×2 (08:02→21:09)
[2020-07-04] MEDS: HEPARIN SODIUM,PORCINE 5,000 UNITS/ML VIAL SQ SCH ×2 (08:02→21:09)
[2020-07-04] MEDS: Z GUARD REMEDY PASTE 57 GM TUBE TOP SCH ×2 (08:02→21:09)
[2020-07-04] MEDS: VITAMINS A AND D OINT TP SCH (08:02)
[2020-07-04 08:12] VITALS: BP 104/49
[2020-07-04] MEDS: HYDROGEN PEROXIDE 3% 118 ML BOTTLE TP SCH ×2 (09:00→21:46)
[2020-07-04] MEDS: JEVITY 1.2 1000 ML LIQUID GT PRN (14:40)
--- NOTE | 2020-07-04 17:30 | NUR ---
SEEN BY DR. BETHEA AND WITH NNO.
[2020-07-04 20:25] VITALS: BP 125/68
[2020-07-04] MEDS: OMEGA-3 FATTY ACIDS/FISH OIL CAPSULE GT SCH (21:05)
[2020-07-05] MEDS: OMEPRAZOLE 20 MG CAPSULE.DR GT SCH (06:16)
[2020-07-05] MEDS: CHOLECALCIFEROL 1,000 UNIT TABLET GT SCH (06:16)
[2020-07-05] MEDS: LORATADINE 10 MG TABLET GT SCH (06:16)
--- NOTE | 2020-07-05 07:30 | NUR ---
SEEN BY KALA STRANGE N.P. AND WITH NNO.
[2020-07-05 07:47] VITALS: BP 110/67
[2020-07-05] MEDS: VITAMINS A AND D OINT TP SCH (08:02)
[2020-07-05] MEDS: HEPARIN SODIUM,PORCINE 5,000 UNITS/ML VIAL SQ SCH ×2 (08:02→21:00)
[2020-07-05] MEDS: [UNRECOGNIZED DRUG - OTHER] XX SCH ×2 (08:02→20:27)
[2020-07-05] MEDS: Z GUARD REMEDY PASTE 57 GM TUBE TOP SCH ×2 (08:02→20:27)
[2020-07-05] MEDS: BACLOFEN 10 MG TABLET GT SCH ×2 (08:02→20:26)
[2020-07-05] MEDS: [UNRECOGNIZED DRUG - OTHER] GT SCH ×2 (08:02→20:27)
[2020-07-05] MEDS: HYDROGEN PEROXIDE 3% 118 ML BOTTLE TP SCH ×2 (09:13→20:27)
[2020-07-05] MEDS: JEVITY 1.2 1000 ML LIQUID GT PRN (10:23)
--- NOTE | 2020-07-05 16:00 | NUR ---
SEEN BY DR. SANTA AND WITH NNO.
[2020-07-05 20:21] VITALS: BP 115/72
[2020-07-05] MEDS: OMEGA-3 FATTY ACIDS/FISH OIL CAPSULE GT SCH (20:26)
[2020-07-06] MEDS: CHOLECALCIFEROL 1,000 UNIT TABLET GT SCH (05:09)
[2020-07-06] MEDS: LORATADINE 10 MG TABLET GT SCH (05:09)
[2020-07-06] MEDS: OMEPRAZOLE 20 MG CAPSULE.DR GT SCH (05:10)
[2020-07-06] MEDS: HYDROGEN PEROXIDE 3% 118 ML BOTTLE TP SCH ×2 (07:15→21:00)
[2020-07-06 07:37] VITALS: BP 123/86
[2020-07-06] MEDS: [UNRECOGNIZED DRUG - OTHER] GT SCH ×2 (08:41→20:22)
[2020-07-06] MEDS: BACLOFEN 10 MG TABLET GT SCH ×2 (08:41→20:22)
[2020-07-06] MEDS: [UNRECOGNIZED DRUG - OTHER] XX SCH ×2 (08:48→20:23)
[2020-07-06] MEDS: HEPARIN SODIUM,PORCINE 5,000 UNITS/ML VIAL SQ SCH ×2 (08:48→20:23)
[2020-07-06] MEDS: Z GUARD REMEDY PASTE 57 GM TUBE TOP SCH ×2 (08:48→20:23)
[2020-07-06] MEDS: VITAMINS A AND D OINT TP SCH (08:48)
[2020-07-06] MEDS: JEVITY 1.2 1000 ML LIQUID GT PRN (12:31)
[2020-07-06 20:04] VITALS: BP 123/67
[2020-07-06] MEDS: OMEGA-3 FATTY ACIDS/FISH OIL CAPSULE GT SCH (20:22)
[2020-07-07] MEDS: JEVITY 1.2 1000 ML LIQUID GT PRN ×2 (02:36→19:37)
--- NOTE | 2020-07-07 03:30 | NUR ---
Nurse noted patient's leg was rubbing on each other, noted with right alejandra scratch, no bleeding, cleanse and initiated in-house treatment, applied pillow in between the legs , turned and repositioned patient, kept patient clean and comfortable.
[2020-07-07] MEDS: LORATADINE 10 MG TABLET GT SCH (05:35)
[2020-07-07] MEDS: OMEPRAZOLE 20 MG CAPSULE.DR GT SCH (05:35)
[2020-07-07] MEDS: CHOLECALCIFEROL 1,000 UNIT TABLET GT SCH (05:35)
[2020-07-07 07:34] VITALS: BP 136/81
[2020-07-07] MEDS: HYDROGEN PEROXIDE 3% 118 ML BOTTLE TP PRN (07:42)
[2020-07-07] MEDS: BACLOFEN 10 MG TABLET GT SCH ×2 (08:38→20:27)
[2020-07-07] MEDS: [UNRECOGNIZED DRUG - OTHER] GT SCH ×2 (08:38→20:27)
[2020-07-07] MEDS: Z GUARD REMEDY PASTE 57 GM TUBE TOP SCH ×2 (08:38→20:27)
[2020-07-07] MEDS: VITAMINS A AND D OINT TP SCH (08:39)
[2020-07-07] MEDS: NEOMY/BACITRA/POLYMYXIN B OINT UD PACKET TP SCH ×2 (08:39→20:27)
[2020-07-07] MEDS: HEPARIN SODIUM,PORCINE 5,000 UNITS/ML VIAL SQ SCH ×2 (08:39→20:27)
[2020-07-07] MEDS: [UNRECOGNIZED DRUG - OTHER] XX SCH ×2 (08:39→20:27)
[2020-07-07] MEDS: HYDROGEN PEROXIDE 3% 118 ML BOTTLE TP SCH ×2 (09:00→20:34)
[2020-07-07 20:10] VITALS: BP 101/55
[2020-07-07] MEDS: OMEGA-3 FATTY ACIDS/FISH OIL CAPSULE GT SCH (20:27)
[2020-07-08] MEDS: LORATADINE 10 MG TABLET GT SCH (05:40)
[2020-07-08] MEDS: OMEPRAZOLE 20 MG CAPSULE.DR GT SCH (05:40)
[2020-07-08] MEDS: CHOLECALCIFEROL 1,000 UNIT TABLET GT SCH (05:40)
[2020-07-08] MEDS: HYDROGEN PEROXIDE 3% 118 ML BOTTLE TP SCH ×2 (07:20→21:10)
[2020-07-08 07:52] VITALS: BP 120/54
[2020-07-08] MEDS: BACLOFEN 10 MG TABLET GT SCH ×2 (08:57→20:08)
[2020-07-08] MEDS: NEOMY/BACITRA/POLYMYXIN B OINT UD PACKET TP SCH ×2 (08:58→20:08)
[2020-07-08] MEDS: [UNRECOGNIZED DRUG - OTHER] XX SCH ×2 (08:58→20:08)
[2020-07-08] MEDS: HEPARIN SODIUM,PORCINE 5,000 UNITS/ML VIAL SQ SCH ×2 (08:58→21:26)
[2020-07-08] MEDS: Z GUARD REMEDY PASTE 57 GM TUBE TOP SCH ×2 (08:58→20:08)
[2020-07-08] MEDS: VITAMINS A AND D OINT TP SCH (08:58)
[2020-07-08] MEDS: [UNRECOGNIZED DRUG - OTHER] GT SCH ×2 (08:58→20:08)
[2020-07-08] MEDS: OMEGA-3 FATTY ACIDS/FISH OIL CAPSULE GT SCH (20:08)
[2020-07-08 20:24] VITALS: BP 96/59
[2020-07-09] MEDS: OMEPRAZOLE 20 MG CAPSULE.DR GT SCH (05:29)
[2020-07-09] MEDS: CHOLECALCIFEROL 1,000 UNIT TABLET GT SCH (05:29)
[2020-07-09] MEDS: LORATADINE 10 MG TABLET GT SCH (05:29)
[2020-07-09 07:47] VITALS: BP 131/55
[2020-07-09] MEDS: HYDROGEN PEROXIDE 3% 118 ML BOTTLE TP SCH ×2 (08:58→20:56)
[2020-07-09] MEDS: [UNRECOGNIZED DRUG - OTHER] GT SCH ×2 (09:50→20:49)
[2020-07-09] MEDS: BACLOFEN 10 MG TABLET GT SCH ×2 (09:50→20:49)
[2020-07-09] MEDS: Z GUARD REMEDY PASTE 57 GM TUBE TOP SCH ×2 (09:52→20:52)
[2020-07-09] MEDS: [UNRECOGNIZED DRUG - OTHER] XX SCH ×2 (09:52→20:52)
[2020-07-09] MEDS: VITAMINS A AND D OINT TP SCH (09:52)
[2020-07-09] MEDS: NEOMY/BACITRA/POLYMYXIN B OINT UD PACKET TP SCH ×2 (09:52→20:52)
[2020-07-09] MEDS: HEPARIN SODIUM,PORCINE 5,000 UNITS/ML VIAL SQ SCH ×2 (09:52→20:51)
--- NOTE | 2020-07-09 16:11 | NUR ---
INTERDISCIPLINARY PLAN OF CARE CONFERENCE was held today. Patient's parents were not available to participate in the meeting. Dr. Castro and the Interdisciplinary Team reviewed the current plan of care in detail. RN reported on patient's medical condition and findings of recent labs. See RN IDT conference notes. No major changes in medical condition were reported by nursing or by other disciplines. See all other disciplines IDT notes and physician's progress notes for additional details.
--- NOTE | 2020-07-09 16:37 | NUR ---
NEW ORDER CARRIED OUT FROM DR. SANTA FOR COVID19 TEST ,PT'S MOTHER AWARE AND IN AGREEMENT.
[2020-07-09 20:02] VITALS: BP 98/67
[2020-07-09] MEDS: OMEGA-3 FATTY ACIDS/FISH OIL CAPSULE GT SCH (20:49)
[2020-07-10] MEDS: OMEPRAZOLE 20 MG CAPSULE.DR GT SCH (05:11)
[2020-07-10] MEDS: CHOLECALCIFEROL 1,000 UNIT TABLET GT SCH (05:11)
[2020-07-10] MEDS: LORATADINE 10 MG TABLET GT SCH (05:11)
[2020-07-10 07:26] VITALS: BP 115/56
[2020-07-10] MEDS: HYDROGEN PEROXIDE 3% 118 ML BOTTLE TP SCH ×2 (08:31→20:46)
[2020-07-10] MEDS: BACLOFEN 10 MG TABLET GT SCH ×2 (08:38→20:36)
[2020-07-10] MEDS: [UNRECOGNIZED DRUG - OTHER] GT SCH ×2 (08:38→20:36)
[2020-07-10] MEDS: HEPARIN SODIUM,PORCINE 5,000 UNITS/ML VIAL SQ SCH ×2 (08:39→20:51)
[2020-07-10] MEDS: NEOMY/BACITRA/POLYMYXIN B OINT UD PACKET TP SCH ×2 (09:00→20:36)
[2020-07-10] MEDS: VITAMINS A AND D OINT TP SCH (09:00)
[2020-07-10] MEDS: Z GUARD REMEDY PASTE 57 GM TUBE TOP SCH ×2 (09:00→20:36)
[2020-07-10] MEDS: [UNRECOGNIZED DRUG - OTHER] XX SCH ×2 (09:00→20:36)
--- NOTE | 2020-07-10 14:30 | NUR ---
Video call provided with pt's mother.
[2020-07-10] MEDS: OMEGA-3 FATTY ACIDS/FISH OIL CAPSULE GT SCH (20:30)
[2020-07-10 20:55] VITALS: BP 116/66
[2020-07-11] MEDS: JEVITY 1.2 1000 ML LIQUID GT PRN (00:56)
[2020-07-11] MEDS: LORATADINE 10 MG TABLET GT SCH (05:53)
[2020-07-11] MEDS: CHOLECALCIFEROL 1,000 UNIT TABLET GT SCH (05:53)
[2020-07-11] MEDS: OMEPRAZOLE 20 MG CAPSULE.DR GT SCH (05:53)
[2020-07-11 07:45] VITALS: BP 105/71
[2020-07-11] MEDS: Z GUARD REMEDY PASTE 57 GM TUBE TOP SCH ×2 (09:21→20:39)
[2020-07-11] MEDS: BACLOFEN 10 MG TABLET GT SCH ×2 (09:21→20:36)
[2020-07-11] MEDS: [UNRECOGNIZED DRUG - OTHER] GT SCH ×2 (09:21→20:38)
[2020-07-11] MEDS: HEPARIN SODIUM,PORCINE 5,000 UNITS/ML VIAL SQ SCH ×2 (09:21→20:38)
[2020-07-11] MEDS: NEOMY/BACITRA/POLYMYXIN B OINT UD PACKET TP SCH ×2 (09:21→20:39)
[2020-07-11] MEDS: VITAMINS A AND D OINT TP SCH (09:21)
[2020-07-11] MEDS: [UNRECOGNIZED DRUG - OTHER] XX SCH ×2 (09:22→20:39)
[2020-07-11] MEDS: HYDROGEN PEROXIDE 3% 118 ML BOTTLE TP SCH ×2 (09:31→20:50)
[2020-07-11 20:14] VITALS: BP 106/60
[2020-07-11] MEDS: OMEGA-3 FATTY ACIDS/FISH OIL CAPSULE GT SCH (20:36)
[2020-07-12] MEDS: JEVITY 1.2 1000 ML LIQUID GT PRN (00:22)
[2020-07-12] MEDS: CHOLECALCIFEROL 1,000 UNIT TABLET GT SCH (05:14)
[2020-07-12] MEDS: LORATADINE 10 MG TABLET GT SCH (05:14)
[2020-07-12] MEDS: OMEPRAZOLE 20 MG CAPSULE.DR GT SCH (05:14)
[2020-07-12 07:36] VITALS: BP 116/68
[2020-07-12] MEDS: BACLOFEN 10 MG TABLET GT SCH ×2 (08:03→20:16)
[2020-07-12] MEDS: [UNRECOGNIZED DRUG - OTHER] GT SCH ×2 (08:04→20:16)
--- NOTE | 2020-07-12 08:04 | NUR ---
focus factor not given. unavailable. mother aware to bring medication.
[2020-07-12] MEDS: VITAMINS A AND D OINT TP SCH (08:06)
[2020-07-12] MEDS: Z GUARD REMEDY PASTE 57 GM TUBE TOP SCH ×2 (08:06→20:17)
[2020-07-12] MEDS: HEPARIN SODIUM,PORCINE 5,000 UNITS/ML VIAL SQ SCH ×2 (08:06→21:53)
[2020-07-12] MEDS: NEOMY/BACITRA/POLYMYXIN B OINT UD PACKET TP SCH ×2 (08:06→20:17)
[2020-07-12] MEDS: [UNRECOGNIZED DRUG - OTHER] XX SCH ×2 (08:06→20:17)
--- NOTE | 2020-07-12 08:30 | NUR ---
ZOOM PROVIDED TO .
[2020-07-12] MEDS: HYDROGEN PEROXIDE 3% 118 ML BOTTLE TP SCH ×2 (08:52→21:15)
[2020-07-12] MEDS: OMEGA-3 FATTY ACIDS/FISH OIL CAPSULE GT SCH (20:16)
[2020-07-12 20:45] VITALS: BP 123/60
--- NOTE | 2020-07-12 21:15 | NUR ---
Patient received in stable respiratory condition on cool aerosol 28% FiO2. Ambubag and spare trach at bedside. Airway is patent and secured. Suctioned PRN. No SOB noted. Will continue to monitor.
[2020-07-13] MEDS: OMEPRAZOLE 20 MG CAPSULE.DR GT SCH (05:04)
[2020-07-13] MEDS: LORATADINE 10 MG TABLET GT SCH (05:04)
[2020-07-13] MEDS: CHOLECALCIFEROL 1,000 UNIT TABLET GT SCH (05:04)
[2020-07-13] MEDS: JEVITY 1.2 1000 ML LIQUID GT PRN ×2 (05:05→16:16)
[2020-07-13 07:52] VITALS: BP 119/72
[2020-07-13] MEDS: HEPARIN SODIUM,PORCINE 5,000 UNITS/ML VIAL SQ SCH ×2 (08:18→21:00)
[2020-07-13] MEDS: Z GUARD REMEDY PASTE 57 GM TUBE TOP SCH ×2 (08:18→20:03)
[2020-07-13] MEDS: NEOMY/BACITRA/POLYMYXIN B OINT UD PACKET TP SCH ×2 (08:18→20:03)
[2020-07-13] MEDS: [UNRECOGNIZED DRUG - OTHER] GT SCH ×2 (08:18→20:03)
[2020-07-13] MEDS: [UNRECOGNIZED DRUG - OTHER] XX SCH ×2 (08:18→20:03)
[2020-07-13] MEDS: BACLOFEN 10 MG TABLET GT SCH ×2 (08:18→20:03)
[2020-07-13] MEDS: VITAMINS A AND D OINT TP SCH (08:18)
[2020-07-13] MEDS: HYDROGEN PEROXIDE 3% 118 ML BOTTLE TP SCH ×2 (09:00→21:30)
[2020-07-13] MEDS: OMEGA-3 FATTY ACIDS/FISH OIL CAPSULE GT SCH (20:03)
[2020-07-13 20:50] VITALS: BP 124/74
[2020-07-14] MEDS: LORATADINE 10 MG TABLET GT SCH (06:11)
[2020-07-14] MEDS: CHOLECALCIFEROL 1,000 UNIT TABLET GT SCH (06:11)
[2020-07-14] MEDS: OMEPRAZOLE 20 MG CAPSULE.DR GT SCH (06:11)
[2020-07-14] MEDS: HYDROGEN PEROXIDE 3% 118 ML BOTTLE TP SCH ×2 (07:26→21:25)
[2020-07-14 07:45] VITALS: BP 112/61
[2020-07-14] MEDS: BACLOFEN 10 MG TABLET GT SCH ×2 (08:25→20:53)
[2020-07-14] MEDS: [UNRECOGNIZED DRUG - OTHER] GT SCH ×2 (08:25→20:53)
[2020-07-14] MEDS: Z GUARD REMEDY PASTE 57 GM TUBE TOP SCH ×2 (08:26→20:53)
[2020-07-14] MEDS: HEPARIN SODIUM,PORCINE 5,000 UNITS/ML VIAL SQ SCH ×2 (08:26→21:04)
[2020-07-14] MEDS: NEOMY/BACITRA/POLYMYXIN B OINT UD PACKET TP SCH ×2 (08:27→20:54)
[2020-07-14] MEDS: [UNRECOGNIZED DRUG - OTHER] XX SCH ×2 (08:27→20:54)
[2020-07-14] MEDS: VITAMINS A AND D OINT TP SCH (08:27)
[2020-07-14] MEDS: JEVITY 1.2 1000 ML LIQUID GT PRN (09:43)
[2020-07-14 20:28] VITALS: BP 115/71
[2020-07-14] MEDS: OMEGA-3 FATTY ACIDS/FISH OIL CAPSULE GT SCH (20:52)
[2020-07-15] MEDS: JEVITY 1.2 1000 ML LIQUID GT PRN (02:33)
[2020-07-15] MEDS: CHOLECALCIFEROL 1,000 UNIT TABLET GT SCH (06:06)
[2020-07-15] MEDS: LORATADINE 10 MG TABLET GT SCH (06:06)
[2020-07-15] MEDS: OMEPRAZOLE 20 MG CAPSULE.DR GT SCH (06:06)
[2020-07-15 07:10] VITALS: BP 150/66
[2020-07-15] MEDS: BACLOFEN 10 MG TABLET GT SCH ×2 (08:59→20:31)
[2020-07-15] MEDS: [UNRECOGNIZED DRUG - OTHER] GT SCH ×2 (08:59→20:31)
[2020-07-15] MEDS: [UNRECOGNIZED DRUG - OTHER] XX SCH ×2 (09:00→20:34)
[2020-07-15] MEDS: Z GUARD REMEDY PASTE 57 GM TUBE TOP SCH ×2 (09:00→20:34)
[2020-07-15] MEDS: VITAMINS A AND D OINT TP SCH (09:00)
[2020-07-15] MEDS: NEOMY/BACITRA/POLYMYXIN B OINT UD PACKET TP SCH ×2 (09:00→20:34)
[2020-07-15] MEDS: HYDROGEN PEROXIDE 3% 118 ML BOTTLE TP SCH ×2 (09:00→21:10)
[2020-07-15] MEDS: HEPARIN SODIUM,PORCINE 5,000 UNITS/ML VIAL SQ SCH ×2 (09:00→20:34)
--- NOTE | 2020-07-15 17:18 | NUR ---
PT'S MOTHER REFUSED TO GIVE CONSENT FOR FLU VACCINE.
[2020-07-15 20:04] VITALS: BP 131/69
[2020-07-15] MEDS: OMEGA-3 FATTY ACIDS/FISH OIL CAPSULE GT SCH (20:31)
[2020-07-16] MEDS: OMEPRAZOLE 20 MG CAPSULE.DR GT SCH (06:08)
[2020-07-16] MEDS: LORATADINE 10 MG TABLET GT SCH (06:08)
[2020-07-16] MEDS: CHOLECALCIFEROL 1,000 UNIT TABLET GT SCH (06:08)
[2020-07-16 07:24] VITALS: BP 121/78
[2020-07-16] MEDS: BACLOFEN 10 MG TABLET GT SCH ×2 (08:11→20:50)
[2020-07-16] MEDS: [UNRECOGNIZED DRUG - OTHER] GT SCH ×2 (08:11→20:50)
[2020-07-16] MEDS: HEPARIN SODIUM,PORCINE 5,000 UNITS/ML VIAL SQ SCH ×2 (08:13→20:58)
[2020-07-16] MEDS: Z GUARD REMEDY PASTE 57 GM TUBE TOP SCH ×2 (08:14→20:50)
[2020-07-16] MEDS: VITAMINS A AND D OINT TP SCH (08:15)
[2020-07-16] MEDS: NEOMY/BACITRA/POLYMYXIN B OINT UD PACKET TP SCH ×4 (08:15→20:50)
[2020-07-16] MEDS: [UNRECOGNIZED DRUG - OTHER] XX SCH ×2 (08:16→20:50)
[2020-07-16] MEDS: HYDROGEN PEROXIDE 3% 118 ML BOTTLE TP SCH ×2 (08:56→19:11)
--- NOTE | 2020-07-16 16:00 | NUR ---
video chat done with patient's mother.
[2020-07-16 20:00] VITALS: BP 101/64
[2020-07-16] MEDS: OMEGA-3 FATTY ACIDS/FISH OIL CAPSULE GT SCH (20:50)
[2020-07-16] MEDS: JEVITY 1.2 1000 ML LIQUID GT PRN ×2 (22:26)
[2020-07-17] MEDS: CHOLECALCIFEROL 1,000 UNIT TABLET GT SCH (06:05)
[2020-07-17] MEDS: LORATADINE 10 MG TABLET GT SCH (06:05)
[2020-07-17] MEDS: OMEPRAZOLE 20 MG CAPSULE.DR GT SCH (06:05)
[2020-07-17] MEDS: HEPARIN SODIUM,PORCINE 5,000 UNITS/ML VIAL SQ SCH ×2 (08:27→21:00)
[2020-07-17] MEDS: BACLOFEN 10 MG TABLET GT SCH ×2 (08:28→20:41)
[2020-07-17] MEDS: [UNRECOGNIZED DRUG - OTHER] GT SCH ×2 (08:28→20:41)
[2020-07-17] MEDS: NEOMY/BACITRA/POLYMYXIN B OINT UD PACKET TP SCH ×4 (08:29→20:41)
[2020-07-17] MEDS: VITAMINS A AND D OINT TP SCH (08:29)
[2020-07-17] MEDS: [UNRECOGNIZED DRUG - OTHER] XX SCH ×2 (08:29→20:42)
[2020-07-17] MEDS: Z GUARD REMEDY PASTE 57 GM TUBE TOP SCH ×2 (08:29→20:41)
[2020-07-17] MEDS: HYDROGEN PEROXIDE 3% 118 ML BOTTLE TP SCH ×2 (09:00→21:31)
[2020-07-17 10:07] VITALS: BP 120/64
[2020-07-17 20:00] VITALS: BP 114/62
[2020-07-17] MEDS: OMEGA-3 FATTY ACIDS/FISH OIL CAPSULE GT SCH (20:41)
[2020-07-18] MEDS: JEVITY 1.2 1000 ML LIQUID GT PRN (06:47)
[2020-07-18] MEDS: LORATADINE 10 MG TABLET GT SCH (06:47)
[2020-07-18] MEDS: CHOLECALCIFEROL 1,000 UNIT TABLET GT SCH (06:47)
[2020-07-18] MEDS: OMEPRAZOLE 20 MG CAPSULE.DR GT SCH (06:47)
[2020-07-18 07:23] VITALS: BP 117/62
[2020-07-18] MEDS: HYDROGEN PEROXIDE 3% 118 ML BOTTLE TP SCH ×2 (08:50→20:58)
[2020-07-18] MEDS: Z GUARD REMEDY PASTE 57 GM TUBE TOP SCH ×2 (08:56→21:00)
[2020-07-18] MEDS: BACLOFEN 10 MG TABLET GT SCH ×2 (08:56→21:00)
[2020-07-18] MEDS: [UNRECOGNIZED DRUG - OTHER] GT SCH ×2 (08:56→21:00)
[2020-07-18] MEDS: VITAMINS A AND D OINT TP SCH (08:56)
[2020-07-18] MEDS: HEPARIN SODIUM,PORCINE 5,000 UNITS/ML VIAL SQ SCH ×2 (08:56→21:00)
[2020-07-18] MEDS: NEOMY/BACITRA/POLYMYXIN B OINT UD PACKET TP SCH ×4 (08:56→21:00)
[2020-07-18] MEDS: [UNRECOGNIZED DRUG - OTHER] XX SCH ×2 (08:57→21:00)
[2020-07-18 20:00] VITALS: BP 105/70
[2020-07-18] MEDS: OMEGA-3 FATTY ACIDS/FISH OIL CAPSULE GT SCH (21:00)
[2020-07-19] MEDS: JEVITY 1.2 1000 ML LIQUID GT PRN ×2 (04:07→23:14)
[2020-07-19] MEDS: CHOLECALCIFEROL 1,000 UNIT TABLET GT SCH (05:21)
[2020-07-19] MEDS: OMEPRAZOLE 20 MG CAPSULE.DR GT SCH (05:21)
[2020-07-19] MEDS: LORATADINE 10 MG TABLET GT SCH (05:21)
[2020-07-19 07:35] VITALS: BP 118/82
[2020-07-19] MEDS: BACLOFEN 10 MG TABLET GT SCH ×2 (08:36→20:24)
[2020-07-19] MEDS: [UNRECOGNIZED DRUG - OTHER] GT SCH ×2 (08:36→20:24)
[2020-07-19] MEDS: HEPARIN SODIUM,PORCINE 5,000 UNITS/ML VIAL SQ SCH ×2 (08:37→20:24)
[2020-07-19] MEDS: [UNRECOGNIZED DRUG - OTHER] XX SCH ×2 (08:37→20:25)
[2020-07-19] MEDS: Z GUARD REMEDY PASTE 57 GM TUBE TOP SCH ×2 (08:37→20:24)
[2020-07-19] MEDS: VITAMINS A AND D OINT TP SCH (08:37)
[2020-07-19] MEDS: NEOMY/BACITRA/POLYMYXIN B OINT UD PACKET TP SCH ×4 (08:37→20:24)
[2020-07-19] MEDS: HYDROGEN PEROXIDE 3% 118 ML BOTTLE TP SCH ×2 (09:13→19:26)
[2020-07-19 20:00] VITALS: BP 112/77
[2020-07-19] MEDS: OMEGA-3 FATTY ACIDS/FISH OIL CAPSULE GT SCH (20:24)
[2020-07-20] MEDS: CHOLECALCIFEROL 1,000 UNIT TABLET GT SCH (05:25)
[2020-07-20] MEDS: OMEPRAZOLE 20 MG CAPSULE.DR GT SCH (05:25)
[2020-07-20] MEDS: LORATADINE 10 MG TABLET GT SCH (05:25)
--- NOTE | 2020-07-20 05:35 | NUR ---
Noted with scratches on left forearm, no bleeding noted, nails trimmed by staff, cleanse and initiated in-house treatment with triple antibiotic ointment, will continue monitor. Also noted with some redness on patient's head after using head and shoulder shampoo . No signs of any distress or shortness of breath, kept clean and comfortable. afebrile, temp is 98.2, will continue monitor.
[2020-07-20] MEDS: NEOMY/BACITRAC/POLYMI OINT 28.35 GM TUBE TOP SCH ×3 (05:52→20:22)
[2020-07-20 07:41] VITALS: BP 115/73
[2020-07-20] MEDS: HYDROGEN PEROXIDE 3% 118 ML BOTTLE TP SCH ×2 (08:42→21:00)
[2020-07-20] MEDS: BACLOFEN 10 MG TABLET GT SCH ×2 (09:00→20:21)
[2020-07-20] MEDS: [UNRECOGNIZED DRUG - OTHER] GT SCH ×2 (09:01→20:21)
[2020-07-20] MEDS: Z GUARD REMEDY PASTE 57 GM TUBE TOP SCH ×2 (09:02→20:22)
[2020-07-20] MEDS: NEOMY/BACITRA/POLYMYXIN B OINT UD PACKET TP SCH ×4 (09:03→20:22)
[2020-07-20] MEDS: [UNRECOGNIZED DRUG - OTHER] XX SCH ×2 (09:03→20:22)
[2020-07-20] MEDS: VITAMINS A AND D OINT TP SCH (09:03)
[2020-07-20] MEDS: HEPARIN SODIUM,PORCINE 5,000 UNITS/ML VIAL SQ SCH ×2 (09:06→20:22)
[2020-07-20] MEDS: JEVITY 1.2 1000 ML LIQUID GT PRN (17:50)
[2020-07-20 20:00] VITALS: BP 115/61
[2020-07-20] MEDS: OMEGA-3 FATTY ACIDS/FISH OIL CAPSULE GT SCH (20:21)
[2020-07-21] MEDS: LORATADINE 10 MG TABLET GT SCH (05:48)
[2020-07-21] MEDS: OMEPRAZOLE 20 MG CAPSULE.DR GT SCH (05:48)
[2020-07-21] MEDS: CHOLECALCIFEROL 1,000 UNIT TABLET GT SCH (05:48)
[2020-07-21 07:45] VITALS: BP 104/39
[2020-07-21] MEDS: [UNRECOGNIZED DRUG - OTHER] GT SCH ×2 (08:02→20:31)
[2020-07-21] MEDS: BACLOFEN 10 MG TABLET GT SCH ×2 (08:02→20:31)
[2020-07-21] MEDS: HEPARIN SODIUM,PORCINE 5,000 UNITS/ML VIAL SQ SCH ×2 (08:03→20:32)
[2020-07-21] MEDS: Z GUARD REMEDY PASTE 57 GM TUBE TOP SCH ×2 (08:03→20:32)
[2020-07-21] MEDS: NEOMY/BACITRAC/POLYMI OINT 28.35 GM TUBE TOP SCH ×2 (08:04→20:32)
[2020-07-21] MEDS: VITAMINS A AND D OINT TP SCH (08:04)
[2020-07-21] MEDS: [UNRECOGNIZED DRUG - OTHER] XX SCH ×2 (08:04→20:32)
[2020-07-21] MEDS: NEOMY/BACITRA/POLYMYXIN B OINT UD PACKET TP SCH ×2 (08:04→20:32)
[2020-07-21] MEDS: HYDROGEN PEROXIDE 3% 118 ML BOTTLE TP SCH ×2 (09:07→21:10)
--- NOTE | 2020-07-21 13:26 | NUR ---
SEEN BY DR. SANTA AND WITH NNO.
[2020-07-21] MEDS: JEVITY 1.2 1000 ML LIQUID GT PRN (17:15)
--- NOTE | 2020-07-21 17:50 | NUR ---
ZOOM PROVIDED TO MOTHER.
[2020-07-21] MEDS: OMEGA-3 FATTY ACIDS/FISH OIL CAPSULE GT SCH (20:31)
[2020-07-21 20:42] VITALS: BP 107/47
[2020-07-22] MEDS: OMEPRAZOLE 20 MG CAPSULE.DR GT SCH (05:19)
[2020-07-22] MEDS: LORATADINE 10 MG TABLET GT SCH (05:19)
[2020-07-22] MEDS: CHOLECALCIFEROL 1,000 UNIT TABLET GT SCH (05:19)
[2020-07-22 07:24] VITALS: BP 119/67
[2020-07-22] MEDS: [UNRECOGNIZED DRUG - OTHER] GT SCH ×2 (08:04→21:04)
[2020-07-22] MEDS: BACLOFEN 10 MG TABLET GT SCH ×2 (08:04→21:04)
[2020-07-22] MEDS: VITAMINS A AND D OINT TP SCH (08:06)
[2020-07-22] MEDS: NEOMY/BACITRA/POLYMYXIN B OINT UD PACKET TP SCH ×2 (08:06→21:05)
[2020-07-22] MEDS: [UNRECOGNIZED DRUG - OTHER] XX SCH ×2 (08:06→21:05)
[2020-07-22] MEDS: Z GUARD REMEDY PASTE 57 GM TUBE TOP SCH ×2 (08:06→21:04)
[2020-07-22] MEDS: HEPARIN SODIUM,PORCINE 5,000 UNITS/ML VIAL SQ SCH ×2 (08:06→21:00)
[2020-07-22] MEDS: NEOMY/BACITRAC/POLYMI OINT 28.35 GM TUBE TOP SCH ×2 (08:06→21:04)
[2020-07-22] MEDS: HYDROGEN PEROXIDE 3% 118 ML BOTTLE TP SCH ×2 (09:12→21:41)
--- NOTE | 2020-07-22 10:00 | NUR ---
SEEN BY ALEXANDR Ortiz AND WITH MRYAO.
[2020-07-22] MEDS: JEVITY 1.2 1000 ML LIQUID GT PRN (12:16)
[2020-07-22 20:43] VITALS: BP 118/68
[2020-07-22] MEDS: OMEGA-3 FATTY ACIDS/FISH OIL CAPSULE GT SCH (21:04)
[2020-07-23] MEDS: OMEPRAZOLE 20 MG CAPSULE.DR GT SCH (06:10)
[2020-07-23] MEDS: LORATADINE 10 MG TABLET GT SCH (06:10)
[2020-07-23] MEDS: CHOLECALCIFEROL 1,000 UNIT TABLET GT SCH (06:10)
[2020-07-23] MEDS: JEVITY 1.2 1000 ML LIQUID GT PRN (07:18)
[2020-07-23 07:19] VITALS: BP 99/54
[2020-07-23] MEDS: BACLOFEN 10 MG TABLET GT SCH ×2 (08:43→21:44)
[2020-07-23] MEDS: [UNRECOGNIZED DRUG - OTHER] GT SCH ×2 (08:44→21:45)
[2020-07-23] MEDS: HEPARIN SODIUM,PORCINE 5,000 UNITS/ML VIAL SQ SCH ×2 (08:45→21:46)
[2020-07-23] MEDS: VITAMINS A AND D OINT TP SCH (08:46)
[2020-07-23] MEDS: [UNRECOGNIZED DRUG - OTHER] XX SCH ×2 (08:46→21:46)
[2020-07-23] MEDS: Z GUARD REMEDY PASTE 57 GM TUBE TOP SCH ×2 (08:46→21:46)
[2020-07-23] MEDS: NEOMY/BACITRAC/POLYMI OINT 28.35 GM TUBE TOP SCH ×2 (08:46→21:46)
[2020-07-23] MEDS: HYDROGEN PEROXIDE 3% 118 ML BOTTLE TP SCH ×2 (09:24→21:20)
[2020-07-23 20:11] VITALS: BP 127/59
[2020-07-23] MEDS: OMEGA-3 FATTY ACIDS/FISH OIL CAPSULE GT SCH (21:44)
[2020-07-24] MEDS: JEVITY 1.2 1000 ML LIQUID GT PRN (04:00)
[2020-07-24] MEDS: CHOLECALCIFEROL 1,000 UNIT TABLET GT SCH (06:10)
[2020-07-24] MEDS: OMEPRAZOLE 20 MG CAPSULE.DR GT SCH (06:10)
[2020-07-24] MEDS: LORATADINE 10 MG TABLET GT SCH (06:10)
[2020-07-24] MEDS: HYDROGEN PEROXIDE 3% 118 ML BOTTLE TP SCH ×2 (07:06→21:10)
[2020-07-24 07:53] VITALS: BP 95/58
[2020-07-24] MEDS: Z GUARD REMEDY PASTE 57 GM TUBE TOP SCH ×2 (08:10→20:02)
[2020-07-24] MEDS: HEPARIN SODIUM,PORCINE 5,000 UNITS/ML VIAL SQ SCH ×2 (08:10→20:02)
[2020-07-24] MEDS: VITAMINS A AND D OINT TP SCH (08:11)
[2020-07-24] MEDS: NEOMY/BACITRAC/POLYMI OINT 28.35 GM TUBE TOP SCH ×2 (08:11→20:02)
[2020-07-24] MEDS: [UNRECOGNIZED DRUG - OTHER] XX SCH ×2 (08:11→20:02)
[2020-07-24] MEDS: BACLOFEN 10 MG TABLET GT SCH ×2 (08:11→20:01)
[2020-07-24] MEDS: [UNRECOGNIZED DRUG - OTHER] GT SCH ×2 (08:12→20:01)
--- NOTE | 2020-07-24 19:14 | NUR ---
Seen and examined by Darcy Khan Np with no new orders.
[2020-07-24] MEDS: OMEGA-3 FATTY ACIDS/FISH OIL CAPSULE GT SCH (20:01)
[2020-07-24 20:09] VITALS: BP 96/61
[2020-07-25] MEDS: JEVITY 1.2 1000 ML LIQUID GT PRN (03:12)
[2020-07-25] MEDS: CHOLECALCIFEROL 1,000 UNIT TABLET GT SCH (05:59)
[2020-07-25] MEDS: OMEPRAZOLE 20 MG CAPSULE.DR GT SCH (05:59)
[2020-07-25] MEDS: LORATADINE 10 MG TABLET GT SCH (05:59)
[2020-07-25 07:21] VITALS: BP 100/54
[2020-07-25] MEDS: HEPARIN SODIUM,PORCINE 5,000 UNITS/ML VIAL SQ SCH ×2 (08:32→20:40)
[2020-07-25] MEDS: BACLOFEN 10 MG TABLET GT SCH ×2 (08:40→20:38)
[2020-07-25] MEDS: [UNRECOGNIZED DRUG - OTHER] GT SCH ×2 (08:40→20:38)
[2020-07-25] MEDS: VITAMINS A AND D OINT TP SCH (08:46)
[2020-07-25] MEDS: Z GUARD REMEDY PASTE 57 GM TUBE TOP SCH ×2 (08:46→20:40)
[2020-07-25] MEDS: NEOMY/BACITRAC/POLYMI OINT 28.35 GM TUBE TOP SCH ×2 (08:46→20:40)
[2020-07-25] MEDS: [UNRECOGNIZED DRUG - OTHER] XX SCH ×2 (08:46→20:41)
[2020-07-25] MEDS: HYDROGEN PEROXIDE 3% 118 ML BOTTLE TP SCH ×2 (09:14→21:24)
[2020-07-25 20:03] VITALS: BP 99/55
[2020-07-25] MEDS: OMEGA-3 FATTY ACIDS/FISH OIL CAPSULE GT SCH (20:38)
--- NOTE | 2020-07-25 20:51 | NUR ---
CALLED RESPONSIBLE [employer]PUBL[employer], PHONG GARCIA ON [phone] AND INFORMED HER OF POSSIBLE COVID-19 EXPOSURE ON THE SUBACUTE UNIT AND THE FOLLOW UP TESTING PLAN FOR THE NEXT 14 DAYS, MANDATED BY [facility] REGULATIONS. ALSO NOTIFIED PHONG THAT NURSING WILL CALL HER WITH THE RESULT IT BECOMES AVAILABLE. PHONG EXPRESSED UNDERSTANDING.
--- NOTE | 2020-07-26 01:07 | NUR ---
Afebrile, trach is intact, no respiratory distress noted, 02 sat is 100%, will continue monitor.
[2020-07-26] MEDS: JEVITY 1.2 1000 ML LIQUID GT PRN (02:00)
[2020-07-26] MEDS: CHOLECALCIFEROL 1,000 UNIT TABLET GT SCH (06:16)
[2020-07-26] MEDS: LORATADINE 10 MG TABLET GT SCH (06:16)
[2020-07-26] MEDS: OMEPRAZOLE 20 MG CAPSULE.DR GT SCH (06:16)
[2020-07-26] MEDS: HYDROGEN PEROXIDE 3% 118 ML BOTTLE TP SCH ×2 (07:22→21:10)
[2020-07-26 07:42] VITALS: BP 112/56
[2020-07-26] MEDS: BACLOFEN 10 MG TABLET GT SCH ×2 (08:18→21:26)
[2020-07-26] MEDS: [UNRECOGNIZED DRUG - OTHER] GT SCH ×2 (08:19→21:26)
[2020-07-26] MEDS: HEPARIN SODIUM,PORCINE 5,000 UNITS/ML VIAL SQ SCH ×2 (08:21→21:00)
[2020-07-26] MEDS: NEOMY/BACITRAC/POLYMI OINT 28.35 GM TUBE TOP SCH (08:21)
[2020-07-26] MEDS: [UNRECOGNIZED DRUG - OTHER] XX SCH ×2 (08:21→21:27)
[2020-07-26] MEDS: VITAMINS A AND D OINT TP SCH (08:21)
[2020-07-26] MEDS: Z GUARD REMEDY PASTE 57 GM TUBE TOP SCH ×2 (08:21→21:27)
[2020-07-26 19:46] VITALS: BP 107/65
[2020-07-26] MEDS: OMEGA-3 FATTY ACIDS/FISH OIL CAPSULE GT SCH (21:26)
[2020-07-27] MEDS: CHOLECALCIFEROL 1,000 UNIT TABLET GT SCH (06:15)
[2020-07-27] MEDS: LORATADINE 10 MG TABLET GT SCH (06:15)
[2020-07-27] MEDS: OMEPRAZOLE 20 MG CAPSULE.DR GT SCH (06:15)
[2020-07-27 07:25] VITALS: BP 116/63
[2020-07-27] MEDS: BACLOFEN 10 MG TABLET GT SCH ×2 (08:28→20:37)
[2020-07-27] MEDS: [UNRECOGNIZED DRUG - OTHER] GT SCH ×2 (08:29→20:37)
[2020-07-27] MEDS: Z GUARD REMEDY PASTE 57 GM TUBE TOP SCH ×2 (08:30→20:38)
[2020-07-27] MEDS: VITAMINS A AND D OINT TP SCH (08:30)
[2020-07-27] MEDS: [UNRECOGNIZED DRUG - OTHER] XX SCH ×2 (08:30→20:38)
[2020-07-27] MEDS: HEPARIN SODIUM,PORCINE 5,000 UNITS/ML VIAL SQ SCH ×2 (08:30→20:37)
[2020-07-27] MEDS: HYDROGEN PEROXIDE 3% 118 ML BOTTLE TP SCH ×2 (09:00→21:03)
[2020-07-27 20:04] VITALS: BP 115/59
[2020-07-27] MEDS: OMEGA-3 FATTY ACIDS/FISH OIL CAPSULE GT SCH (20:37)
[2020-07-27] MEDS: JEVITY 1.2 1000 ML LIQUID GT PRN (21:45)
[2020-07-28] MEDS: OMEPRAZOLE 20 MG CAPSULE.DR GT SCH (05:37)
[2020-07-28] MEDS: LORATADINE 10 MG TABLET GT SCH (05:37)
[2020-07-28] MEDS: CHOLECALCIFEROL 1,000 UNIT TABLET GT SCH (05:37)
[2020-07-28 07:25] VITALS: BP 123/55
[2020-07-28] MEDS: HYDROGEN PEROXIDE 3% 118 ML BOTTLE TP SCH ×2 (07:38→21:27)
[2020-07-28] MEDS: BACLOFEN 10 MG TABLET GT SCH ×2 (09:39→21:01)
[2020-07-28] MEDS: [UNRECOGNIZED DRUG - OTHER] GT SCH ×2 (09:39→21:01)
[2020-07-28] MEDS: VITAMINS A AND D OINT TP SCH (09:40)
[2020-07-28] MEDS: [UNRECOGNIZED DRUG - OTHER] XX SCH ×2 (09:40→21:01)
[2020-07-28] MEDS: HEPARIN SODIUM,PORCINE 5,000 UNITS/ML VIAL SQ SCH ×2 (09:40→21:00)
[2020-07-28] MEDS: Z GUARD REMEDY PASTE 57 GM TUBE TOP SCH ×2 (09:40→21:01)
[2020-07-28 20:52] VITALS: BP 126/60
[2020-07-28] MEDS: OMEGA-3 FATTY ACIDS/FISH OIL CAPSULE GT SCH (21:01)
[2020-07-29] MEDS: LORATADINE 10 MG TABLET GT SCH (06:09)
[2020-07-29] MEDS: CHOLECALCIFEROL 1,000 UNIT TABLET GT SCH (06:09)
[2020-07-29] MEDS: OMEPRAZOLE 20 MG CAPSULE.DR GT SCH (06:09)
[2020-07-29 07:38] VITALS: BP 110/57
[2020-07-29] MEDS: BACLOFEN 10 MG TABLET GT SCH ×2 (08:19→20:52)
[2020-07-29] MEDS: [UNRECOGNIZED DRUG - OTHER] GT SCH ×2 (08:19→20:52)
[2020-07-29] MEDS: HEPARIN SODIUM,PORCINE 5,000 UNITS/ML VIAL SQ SCH ×2 (08:20→20:54)
[2020-07-29] MEDS: Z GUARD REMEDY PASTE 57 GM TUBE TOP SCH ×2 (08:20→20:52)
[2020-07-29] MEDS: [UNRECOGNIZED DRUG - OTHER] XX SCH ×2 (08:20→20:53)
[2020-07-29] MEDS: VITAMINS A AND D OINT TP SCH (08:20)
[2020-07-29] MEDS: HYDROGEN PEROXIDE 3% 118 ML BOTTLE TP SCH ×2 (09:13→21:21)
[2020-07-29 20:05] VITALS: BP 112/58
[2020-07-29] MEDS: OMEGA-3 FATTY ACIDS/FISH OIL CAPSULE GT SCH (20:52)
[2020-07-30] MEDS: CHOLECALCIFEROL 1,000 UNIT TABLET GT SCH (05:04)
[2020-07-30] MEDS: LORATADINE 10 MG TABLET GT SCH (05:04)
[2020-07-30] MEDS: OMEPRAZOLE 20 MG CAPSULE.DR GT SCH (05:04)
[2020-07-30 07:19] VITALS: BP 104/48
[2020-07-30] MEDS: HYDROGEN PEROXIDE 3% 118 ML BOTTLE TP SCH ×2 (07:23→21:00)
[2020-07-30] MEDS: [UNRECOGNIZED DRUG - OTHER] GT SCH ×2 (08:16→20:49)
[2020-07-30] MEDS: BACLOFEN 10 MG TABLET GT SCH ×2 (08:16→20:49)
[2020-07-30] MEDS: Z GUARD REMEDY PASTE 57 GM TUBE TOP SCH ×2 (08:17→20:49)
[2020-07-30] MEDS: HEPARIN SODIUM,PORCINE 5,000 UNITS/ML VIAL SQ SCH ×2 (08:17→20:57)
[2020-07-30] MEDS: VITAMINS A AND D OINT TP SCH (08:17)
[2020-07-30] MEDS: [UNRECOGNIZED DRUG - OTHER] XX SCH ×2 (08:17→20:49)
[2020-07-30] MEDS: JEVITY 1.2 1000 ML LIQUID GT PRN (17:56)
[2020-07-30 20:04] VITALS: BP 122/72
[2020-07-30] MEDS: OMEGA-3 FATTY ACIDS/FISH OIL CAPSULE GT SCH (20:48)
[2020-07-31] MEDS: JEVITY 1.2 1000 ML LIQUID GT PRN (04:00)
[2020-07-31] MEDS: LORATADINE 10 MG TABLET GT SCH (05:53)
[2020-07-31] MEDS: OMEPRAZOLE 20 MG CAPSULE.DR GT SCH (05:54)
[2020-07-31] MEDS: CHOLECALCIFEROL 1,000 UNIT TABLET GT SCH (05:54)
--- NOTE | 2020-07-31 06:21 | NUR ---
shaquille paz n.p. was in, no new orders.
[2020-07-31 07:29] VITALS: BP 112/71
[2020-07-31] MEDS: BACLOFEN 10 MG TABLET GT SCH ×2 (08:43→20:04)
[2020-07-31] MEDS: Z GUARD REMEDY PASTE 57 GM TUBE TOP SCH ×2 (08:45→20:04)
[2020-07-31] MEDS: [UNRECOGNIZED DRUG - OTHER] GT SCH ×2 (08:45→20:05)
[2020-07-31] MEDS: HEPARIN SODIUM,PORCINE 5,000 UNITS/ML VIAL SQ SCH ×2 (08:46→20:08)
[2020-07-31] MEDS: VITAMINS A AND D OINT TP SCH (09:00)
[2020-07-31] MEDS: [UNRECOGNIZED DRUG - OTHER] XX SCH ×2 (09:00→20:04)
[2020-07-31] MEDS: HYDROGEN PEROXIDE 3% 118 ML BOTTLE TP SCH ×2 (09:25→20:04)
--- NOTE | 2020-07-31 18:45 | NUR ---
Lizzette pt's mother notified RE: Covid 19 negative.
[2020-07-31] MEDS: OMEGA-3 FATTY ACIDS/FISH OIL CAPSULE GT SCH (20:04)
[2020-07-31 20:53] VITALS: BP 127/58
[2020-08-01] MEDS: JEVITY 1.2 1000 ML LIQUID GT PRN (02:04)
[2020-08-01] MEDS: CHOLECALCIFEROL 1,000 UNIT TABLET GT SCH (05:33)
[2020-08-01] MEDS: OMEPRAZOLE 20 MG CAPSULE.DR GT SCH (05:33)
[2020-08-01] MEDS: LORATADINE 10 MG TABLET GT SCH (05:33)
[2020-08-01 08:07] VITALS: BP 104/60
[2020-08-01] MEDS: HYDROGEN PEROXIDE 3% 118 ML BOTTLE TP SCH ×2 (08:29→20:58)
[2020-08-01] MEDS: [UNRECOGNIZED DRUG - OTHER] GT SCH ×2 (08:32→20:30)
[2020-08-01] MEDS: BACLOFEN 10 MG TABLET GT SCH ×2 (08:32→20:30)
[2020-08-01] MEDS: HEPARIN SODIUM,PORCINE 5,000 UNITS/ML VIAL SQ SCH ×2 (08:33→21:00)
[2020-08-01] MEDS: Z GUARD REMEDY PASTE 57 GM TUBE TOP SCH ×2 (08:34→20:30)
[2020-08-01] MEDS: VITAMINS A AND D OINT TP SCH (08:43)
[2020-08-01] MEDS: [UNRECOGNIZED DRUG - OTHER] XX SCH ×2 (09:00→20:30)
--- NOTE | 2020-08-01 18:33 | NUR ---
SEEN BY DR. BETHEA AND WITH NNO.
[2020-08-01] MEDS: OMEGA-3 FATTY ACIDS/FISH OIL CAPSULE GT SCH (20:30)
[2020-08-01 23:16] VITALS: BP 117/62
[2020-08-02] MEDS: JEVITY 1.2 1000 ML LIQUID GT PRN ×2 (02:11→22:03)
[2020-08-02] MEDS: OMEPRAZOLE 20 MG CAPSULE.DR GT SCH (05:32)
[2020-08-02] MEDS: LORATADINE 10 MG TABLET GT SCH (05:32)
[2020-08-02] MEDS: CHOLECALCIFEROL 1,000 UNIT TABLET GT SCH (05:32)
[2020-08-02 07:52] VITALS: BP 122/55
[2020-08-02] MEDS: BACLOFEN 10 MG TABLET GT SCH ×2 (08:35→21:54)
[2020-08-02] MEDS: HEPARIN SODIUM,PORCINE 5,000 UNITS/ML VIAL SQ SCH ×2 (08:35→21:54)
[2020-08-02] MEDS: [UNRECOGNIZED DRUG - OTHER] GT SCH ×2 (08:35→21:54)
[2020-08-02] MEDS: VITAMINS A AND D OINT TP SCH (08:35)
[2020-08-02] MEDS: [UNRECOGNIZED DRUG - OTHER] XX SCH ×2 (08:35→21:55)
[2020-08-02] MEDS: Z GUARD REMEDY PASTE 57 GM TUBE TOP SCH ×2 (08:35→21:55)
[2020-08-02] MEDS: HYDROGEN PEROXIDE 3% 118 ML BOTTLE TP SCH ×2 (09:43→21:19)
[2020-08-02 20:20] VITALS: BP 92/63
[2020-08-02] MEDS: OMEGA-3 FATTY ACIDS/FISH OIL CAPSULE GT SCH (21:54)
[2020-08-02 22:00] VITALS: BP 122/55
[2020-08-03] MEDS: LORATADINE 10 MG TABLET GT SCH (05:47)
[2020-08-03] MEDS: OMEPRAZOLE 20 MG CAPSULE.DR GT SCH (05:47)
[2020-08-03] MEDS: CHOLECALCIFEROL 1,000 UNIT TABLET GT SCH (05:48)
[2020-08-03 07:21] VITALS: BP 116/64
[2020-08-03] MEDS: HEPARIN SODIUM,PORCINE 5,000 UNITS/ML VIAL SQ SCH ×2 (08:26→20:53)
[2020-08-03] MEDS: BACLOFEN 10 MG TABLET GT SCH ×2 (08:27→20:53)
[2020-08-03] MEDS: [UNRECOGNIZED DRUG - OTHER] GT SCH ×2 (08:27→20:53)
[2020-08-03] MEDS: Z GUARD REMEDY PASTE 57 GM TUBE TOP SCH ×2 (08:30→20:55)
[2020-08-03] MEDS: VITAMINS A AND D OINT TP SCH (08:33)
[2020-08-03] MEDS: [UNRECOGNIZED DRUG - OTHER] XX SCH ×2 (08:33→20:55)
[2020-08-03] MEDS: HYDROGEN PEROXIDE 3% 118 ML BOTTLE TP SCH ×2 (09:14→21:10)
--- NOTE | 2020-08-03 18:09 | NUR ---
PT HAD VIDEO CHAT VIA ZOOM AT THIS TIME WITH PT'S MOTHER FOR 3 MIN.
[2020-08-03] MEDS: JEVITY 1.2 1000 ML LIQUID GT PRN (18:21)
[2020-08-03 20:24] VITALS: BP 121/68
[2020-08-03] MEDS: OMEGA-3 FATTY ACIDS/FISH OIL CAPSULE GT SCH (20:53)
[2020-08-04] MEDS: CHOLECALCIFEROL 1,000 UNIT TABLET GT SCH (05:15)
[2020-08-04] MEDS: OMEPRAZOLE 20 MG CAPSULE.DR GT SCH (05:15)
[2020-08-04] MEDS: LORATADINE 10 MG TABLET GT SCH (05:15)
[2020-08-04 07:38] VITALS: BP 124/58
[2020-08-04] MEDS: [UNRECOGNIZED DRUG - OTHER] XX SCH ×2 (08:25→20:54)
[2020-08-04] MEDS: VITAMINS A AND D OINT TP SCH (08:25)
[2020-08-04] MEDS: [UNRECOGNIZED DRUG - OTHER] GT SCH ×2 (08:25→20:54)
[2020-08-04] MEDS: HEPARIN SODIUM,PORCINE 5,000 UNITS/ML VIAL SQ SCH ×2 (08:25→21:00)
[2020-08-04] MEDS: BACLOFEN 10 MG TABLET GT SCH ×2 (08:25→20:53)
[2020-08-04] MEDS: Z GUARD REMEDY PASTE 57 GM TUBE TOP SCH ×2 (08:25→20:54)
[2020-08-04] MEDS: HYDROGEN PEROXIDE 3% 118 ML BOTTLE TP SCH ×2 (09:07→21:05)
[2020-08-04] MEDS: JEVITY 1.2 1000 ML LIQUID GT PRN (11:40)
--- NOTE | 2020-08-04 16:20 | NUR ---
NEW ORDER CARRIED OUT FROM DR. SANTA FOR COVID 19 TEST ([facility] REQUIREMENT) AND PT''S MOTHER IN AGREEMENT.
[2020-08-04 20:42] VITALS: BP 111/57
[2020-08-04] MEDS: OMEGA-3 FATTY ACIDS/FISH OIL CAPSULE GT SCH (20:53)
[2020-08-05] MEDS: OMEPRAZOLE 20 MG CAPSULE.DR GT SCH (06:09)
[2020-08-05] MEDS: LORATADINE 10 MG TABLET GT SCH (06:09)
[2020-08-05] MEDS: CHOLECALCIFEROL 1,000 UNIT TABLET GT SCH (06:09)
[2020-08-05] MEDS: JEVITY 1.2 1000 ML LIQUID GT PRN (07:10)
[2020-08-05 07:59] VITALS: BP 127/85
[2020-08-05] MEDS: Z GUARD REMEDY PASTE 57 GM TUBE TOP SCH ×2 (08:26→20:39)
[2020-08-05] MEDS: [UNRECOGNIZED DRUG - OTHER] GT SCH ×2 (08:26→20:39)
[2020-08-05] MEDS: VITAMINS A AND D OINT TP SCH (08:26)
[2020-08-05] MEDS: BACLOFEN 10 MG TABLET GT SCH ×2 (08:26→20:39)
[2020-08-05] MEDS: HEPARIN SODIUM,PORCINE 5,000 UNITS/ML VIAL SQ SCH ×2 (08:26→21:00)
[2020-08-05] MEDS: [UNRECOGNIZED DRUG - OTHER] XX SCH ×2 (08:27→20:39)
[2020-08-05] MEDS: HYDROGEN PEROXIDE 3% 118 ML BOTTLE TP SCH ×2 (09:57→21:00)
--- NOTE | 2020-08-05 19:09 | NUR ---
PT'S MOTHER AWARE OF NEGATIVE COVID 19 TEST.
[2020-08-05 20:24] VITALS: BP 113/74
[2020-08-05] MEDS: OMEGA-3 FATTY ACIDS/FISH OIL CAPSULE GT SCH (20:39)
[2020-08-06] MEDS: LORATADINE 10 MG TABLET GT SCH (05:50)
[2020-08-06] MEDS: CHOLECALCIFEROL 1,000 UNIT TABLET GT SCH (05:50)
[2020-08-06] MEDS: OMEPRAZOLE 20 MG CAPSULE.DR GT SCH (05:50)
[2020-08-06] MEDS: JEVITY 1.2 1000 ML LIQUID GT PRN (06:02)
[2020-08-06] MEDS: HYDROGEN PEROXIDE 3% 118 ML BOTTLE TP SCH ×2 (07:38→21:10)
[2020-08-06 07:39] VITALS: BP 124/54
[2020-08-06] MEDS: BACLOFEN 10 MG TABLET GT SCH ×2 (08:58→21:35)
[2020-08-06] MEDS: Z GUARD REMEDY PASTE 57 GM TUBE TOP SCH ×2 (08:59→21:37)
[2020-08-06] MEDS: VITAMINS A AND D OINT TP SCH (08:59)
[2020-08-06] MEDS: [UNRECOGNIZED DRUG - OTHER] XX SCH ×2 (08:59→21:37)
[2020-08-06] MEDS: [UNRECOGNIZED DRUG - OTHER] GT SCH ×2 (08:59→21:35)
[2020-08-06] MEDS: HEPARIN SODIUM,PORCINE 5,000 UNITS/ML VIAL SQ SCH ×2 (09:05→21:37)
[2020-08-06 20:16] VITALS: BP 105/57
[2020-08-06] MEDS: OMEGA-3 FATTY ACIDS/FISH OIL CAPSULE GT SCH (21:35)
[2020-08-07] MEDS: JEVITY 1.2 1000 ML LIQUID GT PRN (04:15)
[2020-08-07] MEDS: OMEPRAZOLE 20 MG CAPSULE.DR GT SCH (05:09)
[2020-08-07] MEDS: LORATADINE 10 MG TABLET GT SCH (05:09)
[2020-08-07] MEDS: CHOLECALCIFEROL 1,000 UNIT TABLET GT SCH (05:10)
[2020-08-07 07:53] VITALS: BP 112/54
[2020-08-07] MEDS: HEPARIN SODIUM,PORCINE 5,000 UNITS/ML VIAL SQ SCH ×2 (08:40→21:02)
[2020-08-07] MEDS: Z GUARD REMEDY PASTE 57 GM TUBE TOP SCH ×2 (08:42→21:02)
[2020-08-07] MEDS: [UNRECOGNIZED DRUG - OTHER] GT SCH ×2 (08:42→21:01)
[2020-08-07] MEDS: BACLOFEN 10 MG TABLET GT SCH ×2 (08:42→21:01)
[2020-08-07] MEDS: [UNRECOGNIZED DRUG - OTHER] XX SCH ×2 (08:43→21:02)
[2020-08-07] MEDS: VITAMINS A AND D OINT TP SCH (08:43)
[2020-08-07] MEDS: HYDROGEN PEROXIDE 3% 118 ML BOTTLE TP SCH ×2 (09:00→21:10)
[2020-08-07] MEDS: NEOMY/BACITRA/POLYMYXIN B OINT UD PACKET TP SCH ×2 (15:33→21:02)
[2020-08-07 20:00] VITALS: BP 121/53
[2020-08-07] MEDS: OMEGA-3 FATTY ACIDS/FISH OIL CAPSULE GT SCH (21:01)
[2020-08-08] MEDS: OMEPRAZOLE 20 MG CAPSULE.DR GT SCH (06:16)
[2020-08-08] MEDS: LORATADINE 10 MG TABLET GT SCH (06:16)
[2020-08-08] MEDS: CHOLECALCIFEROL 1,000 UNIT TABLET GT SCH (06:16)
[2020-08-08] MEDS: HYDROGEN PEROXIDE 3% 118 ML BOTTLE TP SCH ×2 (07:37→21:18)
[2020-08-08 07:49] VITALS: BP 126/68
[2020-08-08] MEDS: BACLOFEN 10 MG TABLET GT SCH ×2 (08:15→20:51)
[2020-08-08] MEDS: [UNRECOGNIZED DRUG - OTHER] GT SCH ×2 (08:15→20:51)
[2020-08-08] MEDS: HEPARIN SODIUM,PORCINE 5,000 UNITS/ML VIAL SQ SCH ×2 (08:16→20:52)
[2020-08-08] MEDS: Z GUARD REMEDY PASTE 57 GM TUBE TOP SCH ×2 (08:17→20:52)
[2020-08-08] MEDS: NEOMY/BACITRA/POLYMYXIN B OINT UD PACKET TP SCH ×2 (08:17→20:52)
[2020-08-08] MEDS: VITAMINS A AND D OINT TP SCH (08:17)
[2020-08-08] MEDS: [UNRECOGNIZED DRUG - OTHER] XX SCH ×2 (08:17→20:52)
[2020-08-08] MEDS: JEVITY 1.2 1000 ML LIQUID GT PRN (17:55)
[2020-08-08 20:00] VITALS: BP 103/52
[2020-08-08] MEDS: OMEGA-3 FATTY ACIDS/FISH OIL CAPSULE GT SCH (20:51)
[2020-08-09] MEDS: CHOLECALCIFEROL 1,000 UNIT TABLET GT SCH (06:14)
[2020-08-09] MEDS: OMEPRAZOLE 20 MG CAPSULE.DR GT SCH (06:14)
[2020-08-09] MEDS: LORATADINE 10 MG TABLET GT SCH (06:14)
[2020-08-09] MEDS: HYDROGEN PEROXIDE 3% 118 ML BOTTLE TP SCH ×2 (07:28→21:26)
[2020-08-09 07:41] VITALS: BP 125/65
[2020-08-09] MEDS: BACLOFEN 10 MG TABLET GT SCH ×2 (08:02→20:21)
[2020-08-09] MEDS: [UNRECOGNIZED DRUG - OTHER] GT SCH ×2 (08:02→20:21)
[2020-08-09] MEDS: HEPARIN SODIUM,PORCINE 5,000 UNITS/ML VIAL SQ SCH ×2 (08:03→20:22)
[2020-08-09] MEDS: NEOMY/BACITRA/POLYMYXIN B OINT UD PACKET TP SCH ×2 (08:03→20:22)
[2020-08-09] MEDS: Z GUARD REMEDY PASTE 57 GM TUBE TOP SCH ×2 (08:03→20:22)
[2020-08-09] MEDS: VITAMINS A AND D OINT TP SCH (08:03)
[2020-08-09] MEDS: [UNRECOGNIZED DRUG - OTHER] XX SCH ×2 (08:03→20:22)
[2020-08-09] MEDS: JEVITY 1.2 1000 ML LIQUID GT PRN (15:26)
[2020-08-09 20:10] VITALS: BP 117/68
[2020-08-09] MEDS: OMEGA-3 FATTY ACIDS/FISH OIL CAPSULE GT SCH (20:21)
[2020-08-10] MEDS: CHOLECALCIFEROL 1,000 UNIT TABLET GT SCH (05:26)
[2020-08-10] MEDS: LORATADINE 10 MG TABLET GT SCH (05:26)
[2020-08-10] MEDS: OMEPRAZOLE 20 MG CAPSULE.DR GT SCH (05:26)
[2020-08-10 07:51] VITALS: BP 112/61
[2020-08-10] MEDS: HEPARIN SODIUM,PORCINE 5,000 UNITS/ML VIAL SQ SCH ×2 (08:13→20:29)
[2020-08-10] MEDS: BACLOFEN 10 MG TABLET GT SCH ×2 (08:13→20:28)
[2020-08-10] MEDS: [UNRECOGNIZED DRUG - OTHER] GT SCH ×2 (08:13→20:28)
[2020-08-10] MEDS: NEOMY/BACITRA/POLYMYXIN B OINT UD PACKET TP SCH ×2 (08:14→20:28)
[2020-08-10] MEDS: VITAMINS A AND D OINT TP SCH (08:14)
[2020-08-10] MEDS: Z GUARD REMEDY PASTE 57 GM TUBE TOP SCH ×2 (08:14→20:28)
[2020-08-10] MEDS: [UNRECOGNIZED DRUG - OTHER] XX SCH ×2 (08:14→20:28)
[2020-08-10] MEDS: HYDROGEN PEROXIDE 3% 118 ML BOTTLE TP SCH ×2 (09:00→21:26)
[2020-08-10] MEDS: JEVITY 1.2 1000 ML LIQUID GT PRN (11:05)
[2020-08-10 20:26] VITALS: BP 122/65
[2020-08-10] MEDS: OMEGA-3 FATTY ACIDS/FISH OIL CAPSULE GT SCH (20:28)
[2020-08-11] MEDS: JEVITY 1.2 1000 ML LIQUID GT PRN (01:41)
[2020-08-11] MEDS: OMEPRAZOLE 20 MG CAPSULE.DR GT SCH (05:40)
[2020-08-11] MEDS: CHOLECALCIFEROL 1,000 UNIT TABLET GT SCH (05:40)
[2020-08-11] MEDS: LORATADINE 10 MG TABLET GT SCH (05:40)
[2020-08-11 07:48] VITALS: BP 102/56
[2020-08-11] MEDS: BACLOFEN 10 MG TABLET GT SCH ×2 (08:43→20:30)
[2020-08-11] MEDS: [UNRECOGNIZED DRUG - OTHER] GT SCH ×2 (08:43→20:30)
[2020-08-11] MEDS: [UNRECOGNIZED DRUG - OTHER] XX SCH ×2 (08:44→20:30)
[2020-08-11] MEDS: Z GUARD REMEDY PASTE 57 GM TUBE TOP SCH ×2 (08:44→20:30)
[2020-08-11] MEDS: HEPARIN SODIUM,PORCINE 5,000 UNITS/ML VIAL SQ SCH ×2 (08:44→20:31)
[2020-08-11] MEDS: NEOMY/BACITRA/POLYMYXIN B OINT UD PACKET TP SCH ×2 (08:44→20:30)
[2020-08-11] MEDS: VITAMINS A AND D OINT TP SCH (08:44)
[2020-08-11] MEDS: HYDROGEN PEROXIDE 3% 118 ML BOTTLE TP SCH ×2 (09:00→21:48)
[2020-08-11 20:25] VITALS: BP 120/75
[2020-08-11] MEDS: OMEGA-3 FATTY ACIDS/FISH OIL CAPSULE GT SCH (20:30)
[2020-08-12] MEDS: JEVITY 1.2 1000 ML LIQUID GT PRN (02:05)
[2020-08-12] MEDS: LORATADINE 10 MG TABLET GT SCH (05:53)
[2020-08-12] MEDS: CHOLECALCIFEROL 1,000 UNIT TABLET GT SCH (05:53)
[2020-08-12] MEDS: OMEPRAZOLE 20 MG CAPSULE.DR GT SCH (05:53)
[2020-08-12 07:51] VITALS: BP 104/62
[2020-08-12] MEDS: NEOMY/BACITRA/POLYMYXIN B OINT UD PACKET TP SCH (09:00)
[2020-08-12] MEDS: [UNRECOGNIZED DRUG - OTHER] XX SCH ×2 (09:00→20:34)
[2020-08-12] MEDS: Z GUARD REMEDY PASTE 57 GM TUBE TOP SCH ×2 (09:00→20:34)
[2020-08-12] MEDS: HEPARIN SODIUM,PORCINE 5,000 UNITS/ML VIAL SQ SCH ×2 (09:00→21:00)
[2020-08-12] MEDS: [UNRECOGNIZED DRUG - OTHER] GT SCH ×2 (09:00→20:34)
[2020-08-12] MEDS: VITAMINS A AND D OINT TP SCH (09:00)
[2020-08-12] MEDS: HYDROGEN PEROXIDE 3% 118 ML BOTTLE TP SCH ×2 (09:00→21:35)
[2020-08-12] MEDS: BACLOFEN 10 MG TABLET GT SCH ×2 (09:00→20:34)
[2020-08-12 20:17] VITALS: BP 110/65
[2020-08-12] MEDS: OMEGA-3 FATTY ACIDS/FISH OIL CAPSULE GT SCH (20:32)
[2020-08-13] MEDS: LORATADINE 10 MG TABLET GT SCH (06:27)
[2020-08-13] MEDS: CHOLECALCIFEROL 1,000 UNIT TABLET GT SCH (06:27)
[2020-08-13] MEDS: OMEPRAZOLE 20 MG CAPSULE.DR GT SCH (06:27)
[2020-08-13] MEDS: HYDROGEN PEROXIDE 3% 118 ML BOTTLE TP SCH ×2 (07:05→21:54)
[2020-08-13 07:49] VITALS: BP 109/76
[2020-08-13] MEDS: BACLOFEN 10 MG TABLET GT SCH ×2 (08:27→21:26)
[2020-08-13] MEDS: VITAMINS A AND D OINT TP SCH (08:32)
[2020-08-13] MEDS: Z GUARD REMEDY PASTE 57 GM TUBE TOP SCH ×2 (08:32→21:29)
[2020-08-13] MEDS: [UNRECOGNIZED DRUG - OTHER] GT SCH ×2 (08:32→21:27)
[2020-08-13] MEDS: [UNRECOGNIZED DRUG - OTHER] XX SCH ×2 (08:32→21:29)
[2020-08-13] MEDS: HEPARIN SODIUM,PORCINE 5,000 UNITS/ML VIAL SQ SCH ×2 (08:34→21:27)
--- NOTE | 2020-08-13 15:29 | NUR ---
INTERDISCIPLINARY PLAN OF CARE CONFERENCE was held today. Patient's family was not available to participate in the meeting. Dr. Castro and the Interdisciplinary team reviewed the current plan of care in detail. RN reported on the patient's medical condition. No major changes in condition were reported by RN or by other disciplines in patient's condition. See RN IDT conference notes. See also all other disciplines IDT notes and physician's progress notes for additional details.
[2020-08-13 20:23] VITALS: BP 111/78
[2020-08-13] MEDS: OMEGA-3 FATTY ACIDS/FISH OIL CAPSULE GT SCH (21:26)
[2020-08-14] MEDS: JEVITY 1.2 1000 ML LIQUID GT PRN (04:30)
[2020-08-14] MEDS: CHOLECALCIFEROL 1,000 UNIT TABLET GT SCH (06:16)
[2020-08-14] MEDS: LORATADINE 10 MG TABLET GT SCH (06:16)
[2020-08-14] MEDS: OMEPRAZOLE 20 MG CAPSULE.DR GT SCH (06:16)
[2020-08-14 07:44] VITALS: BP 120/62
[2020-08-14] MEDS: HYDROGEN PEROXIDE 3% 118 ML BOTTLE TP SCH ×2 (09:00→21:10)
[2020-08-14] MEDS: VITAMINS A AND D OINT TP SCH (09:13)
[2020-08-14] MEDS: [UNRECOGNIZED DRUG - OTHER] GT SCH ×2 (09:13→21:43)
[2020-08-14] MEDS: [UNRECOGNIZED DRUG - OTHER] XX SCH ×2 (09:13→21:43)
[2020-08-14] MEDS: BACLOFEN 10 MG TABLET GT SCH ×2 (09:13→21:43)
[2020-08-14] MEDS: Z GUARD REMEDY PASTE 57 GM TUBE TOP SCH ×2 (09:13→21:43)
[2020-08-14] MEDS: HEPARIN SODIUM,PORCINE 5,000 UNITS/ML VIAL SQ SCH ×2 (09:14→21:43)
--- NOTE | 2020-08-14 10:00 | NUR ---
Lizzette pt's mother notified RE: Covid 19 test result negative.
[2020-08-14 20:14] VITALS: BP 110/58
[2020-08-14] MEDS: OMEGA-3 FATTY ACIDS/FISH OIL CAPSULE GT SCH (21:43)
[2020-08-15] MEDS: JEVITY 1.2 1000 ML LIQUID GT PRN (01:45)
[2020-08-15] MEDS: OMEPRAZOLE 20 MG CAPSULE.DR GT SCH (05:37)
[2020-08-15] MEDS: LORATADINE 10 MG TABLET GT SCH (05:37)
[2020-08-15] MEDS: CHOLECALCIFEROL 1,000 UNIT TABLET GT SCH (05:37)
[2020-08-15 07:53] VITALS: BP 121/63
[2020-08-15] MEDS: [UNRECOGNIZED DRUG - OTHER] GT SCH ×2 (08:14→21:20)
[2020-08-15] MEDS: BACLOFEN 10 MG TABLET GT SCH ×2 (08:14→21:19)
[2020-08-15] MEDS: Z GUARD REMEDY PASTE 57 GM TUBE TOP SCH ×2 (08:15→21:23)
[2020-08-15] MEDS: [UNRECOGNIZED DRUG - OTHER] XX SCH ×2 (08:15→21:23)
[2020-08-15] MEDS: VITAMINS A AND D OINT TP SCH (08:15)
[2020-08-15] MEDS: HEPARIN SODIUM,PORCINE 5,000 UNITS/ML VIAL SQ SCH ×2 (08:16→21:22)
[2020-08-15] MEDS: HYDROGEN PEROXIDE 3% 118 ML BOTTLE TP SCH ×2 (09:29→21:11)
[2020-08-15 20:00] VITALS: BP 136/78
[2020-08-15] MEDS: OMEGA-3 FATTY ACIDS/FISH OIL CAPSULE GT SCH (21:19)
[2020-08-16] MEDS: JEVITY 1.2 1000 ML LIQUID GT PRN ×2 (01:30→17:26)
[2020-08-16] MEDS: LORATADINE 10 MG TABLET GT SCH (06:05)
[2020-08-16] MEDS: OMEPRAZOLE 20 MG CAPSULE.DR GT SCH (06:05)
[2020-08-16] MEDS: CHOLECALCIFEROL 1,000 UNIT TABLET GT SCH (06:05)
[2020-08-16] MEDS: HYDROGEN PEROXIDE 3% 118 ML BOTTLE TP SCH ×2 (07:09→20:57)
[2020-08-16 07:30] VITALS: BP 110/64
[2020-08-16] MEDS: [UNRECOGNIZED DRUG - OTHER] GT SCH ×2 (08:19→21:11)
[2020-08-16] MEDS: BACLOFEN 10 MG TABLET GT SCH ×2 (08:19→21:11)
[2020-08-16] MEDS: Z GUARD REMEDY PASTE 57 GM TUBE TOP SCH ×2 (08:21→21:11)
[2020-08-16] MEDS: HEPARIN SODIUM,PORCINE 5,000 UNITS/ML VIAL SQ SCH ×2 (08:21→21:00)
[2020-08-16] MEDS: [UNRECOGNIZED DRUG - OTHER] XX SCH ×2 (08:23→21:12)
[2020-08-16] MEDS: VITAMINS A AND D OINT TP SCH (08:23)
[2020-08-16 20:26] VITALS: BP 102/67
[2020-08-16] MEDS: OMEGA-3 FATTY ACIDS/FISH OIL CAPSULE GT SCH (21:11)
[2020-08-17] MEDS: CHOLECALCIFEROL 1,000 UNIT TABLET GT SCH (06:06)
[2020-08-17] MEDS: OMEPRAZOLE 20 MG CAPSULE.DR GT SCH (06:06)
[2020-08-17] MEDS: LORATADINE 10 MG TABLET GT SCH (06:06)
[2020-08-17] MEDS: HYDROGEN PEROXIDE 3% 118 ML BOTTLE TP SCH ×2 (07:15→21:30)
[2020-08-17 07:29] VITALS: BP 116/61
[2020-08-17] MEDS: BACLOFEN 10 MG TABLET GT SCH ×2 (08:21→20:29)
[2020-08-17] MEDS: [UNRECOGNIZED DRUG - OTHER] GT SCH ×2 (08:21→20:29)
[2020-08-17] MEDS: Z GUARD REMEDY PASTE 57 GM TUBE TOP SCH ×2 (08:23→20:29)
[2020-08-17] MEDS: [UNRECOGNIZED DRUG - OTHER] XX SCH ×2 (08:23→20:29)
[2020-08-17] MEDS: VITAMINS A AND D OINT TP SCH (08:23)
[2020-08-17] MEDS: HEPARIN SODIUM,PORCINE 5,000 UNITS/ML VIAL SQ SCH ×2 (08:23→21:54)
--- NOTE | 2020-08-17 19:37 | NUR ---
MESSAGE LEFT TO PT'S MOTHER RE: LAUNDRY SUPERINTENDENT ACCIDENTLY BROKE THE PT'S HOLINESS ICON THAT PT. HAS AT BEDSIDE WHEN SHE WAS TURNING PT.
[2020-08-17] MEDS: OMEGA-3 FATTY ACIDS/FISH OIL CAPSULE GT SCH (20:29)
[2020-08-17 20:30] VITALS: BP 116/69
[2020-08-18] MEDS: JEVITY 1.2 1000 ML LIQUID GT PRN (06:48)
[2020-08-18] MEDS: LORATADINE 10 MG TABLET GT SCH (06:48)
[2020-08-18] MEDS: OMEPRAZOLE 20 MG CAPSULE.DR GT SCH (06:48)
[2020-08-18] MEDS: CHOLECALCIFEROL 1,000 UNIT TABLET GT SCH (06:48)
[2020-08-18 07:30] VITALS: BP 100/69
[2020-08-18] MEDS: HYDROGEN PEROXIDE 3% 118 ML BOTTLE TP SCH ×2 (07:32→21:07)
[2020-08-18] MEDS: [UNRECOGNIZED DRUG - OTHER] GT SCH ×2 (08:29→21:58)
[2020-08-18] MEDS: BACLOFEN 10 MG TABLET GT SCH ×2 (08:29→21:57)
[2020-08-18] MEDS: HEPARIN SODIUM,PORCINE 5,000 UNITS/ML VIAL SQ SCH ×2 (08:30→21:59)
[2020-08-18] MEDS: Z GUARD REMEDY PASTE 57 GM TUBE TOP SCH ×2 (08:30→21:00)
[2020-08-18] MEDS: VITAMINS A AND D OINT TP SCH (08:30)
[2020-08-18] MEDS: [UNRECOGNIZED DRUG - OTHER] XX SCH ×2 (08:30→21:00)
--- NOTE | 2020-08-18 15:06 | NUR ---
PT'S MOTHER WAS CALLED AND MESSAGE WAS LEFT AT THIS TIME RE: NEW ORDER CARRIED OUT FROM DR. SANTA FOR COVID19 TEST PER [facility] REQUIREMENT.
[2020-08-18 20:16] VITALS: BP 106/50
[2020-08-18] MEDS: OMEGA-3 FATTY ACIDS/FISH OIL CAPSULE GT SCH (21:57)
[2020-08-19] MEDS: CHOLECALCIFEROL 1,000 UNIT TABLET GT SCH (05:28)
[2020-08-19] MEDS: OMEPRAZOLE 20 MG CAPSULE.DR GT SCH (05:28)
[2020-08-19] MEDS: LORATADINE 10 MG TABLET GT SCH (05:28)
[2020-08-19] MEDS: JEVITY 1.2 1000 ML LIQUID GT PRN (06:53)
[2020-08-19 07:44] VITALS: BP 95/42
[2020-08-19] MEDS: HYDROGEN PEROXIDE 3% 118 ML BOTTLE TP SCH ×2 (09:38→21:37)
[2020-08-19] MEDS: BACLOFEN 10 MG TABLET GT SCH ×2 (09:52→20:36)
[2020-08-19] MEDS: [UNRECOGNIZED DRUG - OTHER] GT SCH ×2 (09:52→20:36)
[2020-08-19] MEDS: HEPARIN SODIUM,PORCINE 5,000 UNITS/ML VIAL SQ SCH ×2 (09:55→20:45)
[2020-08-19] MEDS: VITAMINS A AND D OINT TP SCH (09:56)
[2020-08-19] MEDS: Z GUARD REMEDY PASTE 57 GM TUBE TOP SCH ×2 (09:56→20:37)
[2020-08-19] MEDS: [UNRECOGNIZED DRUG - OTHER] XX SCH ×2 (09:56→20:37)
--- NOTE | 2020-08-19 13:38 | NUR ---
PT'S MOTHER AWARE OF NEGATIVE RESULT FOR COVID19 TEST FROM YESTERDAY.
[2020-08-19 20:00] VITALS: BP 108/77
[2020-08-19] MEDS: OMEGA-3 FATTY ACIDS/FISH OIL CAPSULE GT SCH (20:36)
[2020-08-20] MEDS: JEVITY 1.2 1000 ML LIQUID GT PRN ×2 (01:13→18:55)
[2020-08-20] MEDS: CHOLECALCIFEROL 1,000 UNIT TABLET GT SCH (05:45)
[2020-08-20] MEDS: LORATADINE 10 MG TABLET GT SCH (05:45)
[2020-08-20] MEDS: OMEPRAZOLE 20 MG CAPSULE.DR GT SCH (05:45)
[2020-08-20 07:30] VITALS: BP 111/56
[2020-08-20] MEDS: BACLOFEN 10 MG TABLET GT SCH ×2 (08:24→20:45)
[2020-08-20] MEDS: Z GUARD REMEDY PASTE 57 GM TUBE TOP SCH ×2 (08:24→20:46)
[2020-08-20] MEDS: [UNRECOGNIZED DRUG - OTHER] XX SCH ×2 (08:24→20:46)
[2020-08-20] MEDS: VITAMINS A AND D OINT TP SCH (08:24)
[2020-08-20] MEDS: [UNRECOGNIZED DRUG - OTHER] GT SCH ×2 (08:24→20:45)
[2020-08-20] MEDS: HEPARIN SODIUM,PORCINE 5,000 UNITS/ML VIAL SQ SCH ×2 (08:24→21:58)
[2020-08-20] MEDS: HYDROGEN PEROXIDE 3% 118 ML BOTTLE TP SCH ×2 (09:49→21:27)
[2020-08-20 20:45] VITALS: BP 125/64
[2020-08-20] MEDS: OMEGA-3 FATTY ACIDS/FISH OIL CAPSULE GT SCH (20:45)
[2020-08-20 20:49] VITALS: BP 113/60
[2020-08-21] MEDS: CHOLECALCIFEROL 1,000 UNIT TABLET GT SCH (05:30)
[2020-08-21] MEDS: OMEPRAZOLE 20 MG CAPSULE.DR GT SCH (05:30)
[2020-08-21] MEDS: LORATADINE 10 MG TABLET GT SCH (05:30)
[2020-08-21] MEDS: HYDROGEN PEROXIDE 3% 118 ML BOTTLE TP SCH ×2 (07:39→20:34)
[2020-08-21 07:49] VITALS: BP 123/58
[2020-08-21] MEDS: Z GUARD REMEDY PASTE 57 GM TUBE TOP SCH ×2 (08:23→20:44)
[2020-08-21] MEDS: VITAMINS A AND D OINT TP SCH (08:23)
[2020-08-21] MEDS: [UNRECOGNIZED DRUG - OTHER] XX SCH ×2 (08:23→20:44)
[2020-08-21] MEDS: [UNRECOGNIZED DRUG - OTHER] GT SCH ×2 (08:23→20:44)
[2020-08-21] MEDS: BACLOFEN 10 MG TABLET GT SCH ×2 (08:23→20:43)
[2020-08-21] MEDS: HEPARIN SODIUM,PORCINE 5,000 UNITS/ML VIAL SQ SCH ×2 (08:25→21:44)
[2020-08-21] MEDS: JEVITY 1.2 1000 ML LIQUID GT PRN (18:01)
[2020-08-21 20:18] VITALS: BP 113/71
[2020-08-21] MEDS: OMEGA-3 FATTY ACIDS/FISH OIL CAPSULE GT SCH (20:43)
[2020-08-22] MEDS: OMEPRAZOLE 20 MG CAPSULE.DR GT SCH (06:41)
[2020-08-22] MEDS: LORATADINE 10 MG TABLET GT SCH (06:41)
[2020-08-22] MEDS: CHOLECALCIFEROL 1,000 UNIT TABLET GT SCH (06:41)
[2020-08-22 07:42] VITALS: BP 115/49
[2020-08-22] MEDS: BACLOFEN 10 MG TABLET GT SCH ×2 (08:26→20:33)
[2020-08-22] MEDS: HEPARIN SODIUM,PORCINE 5,000 UNITS/ML VIAL SQ SCH ×2 (08:26→20:31)
[2020-08-22] MEDS: [UNRECOGNIZED DRUG - OTHER] GT SCH ×2 (08:26→20:33)
[2020-08-22] MEDS: VITAMINS A AND D OINT TP SCH (08:27)
[2020-08-22] MEDS: [UNRECOGNIZED DRUG - OTHER] XX SCH ×2 (08:27→20:34)
[2020-08-22] MEDS: Z GUARD REMEDY PASTE 57 GM TUBE TOP SCH ×2 (08:27→20:34)
[2020-08-22] MEDS: HYDROGEN PEROXIDE 3% 118 ML BOTTLE TP SCH ×2 (09:00→21:16)
[2020-08-22 20:18] VITALS: BP 114/67
[2020-08-22] MEDS: OMEGA-3 FATTY ACIDS/FISH OIL CAPSULE GT SCH (20:33)
[2020-08-23] MEDS: OMEPRAZOLE 20 MG CAPSULE.DR GT SCH (05:25)
[2020-08-23] MEDS: LORATADINE 10 MG TABLET GT SCH (05:25)
[2020-08-23] MEDS: CHOLECALCIFEROL 1,000 UNIT TABLET GT SCH (05:25)
[2020-08-23 07:45] VITALS: BP 112/62
[2020-08-23] MEDS: HEPARIN SODIUM,PORCINE 5,000 UNITS/ML VIAL SQ SCH ×2 (08:05→21:03)
[2020-08-23] MEDS: [UNRECOGNIZED DRUG - OTHER] GT SCH ×2 (08:05→21:03)
[2020-08-23] MEDS: Z GUARD REMEDY PASTE 57 GM TUBE TOP SCH ×2 (08:05→21:03)
[2020-08-23] MEDS: BACLOFEN 10 MG TABLET GT SCH ×2 (08:05→21:02)
[2020-08-23] MEDS: [UNRECOGNIZED DRUG - OTHER] XX SCH ×2 (08:06→21:04)
[2020-08-23] MEDS: VITAMINS A AND D OINT TP SCH (08:06)
[2020-08-23] MEDS: HYDROGEN PEROXIDE 3% 118 ML BOTTLE TP SCH ×2 (08:17→21:24)
[2020-08-23] MEDS: JEVITY 1.2 1000 ML LIQUID GT PRN (14:47)
[2020-08-23 20:11] VITALS: BP 121/77
[2020-08-23] MEDS: OMEGA-3 FATTY ACIDS/FISH OIL CAPSULE GT SCH (21:02)
[2020-08-24] MEDS: CHOLECALCIFEROL 1,000 UNIT TABLET GT SCH (05:42)
[2020-08-24] MEDS: OMEPRAZOLE 20 MG CAPSULE.DR GT SCH (05:42)
[2020-08-24] MEDS: LORATADINE 10 MG TABLET GT SCH (05:42)
[2020-08-24 08:03] VITALS: BP 112/66
[2020-08-24] MEDS: HEPARIN SODIUM,PORCINE 5,000 UNITS/ML VIAL SQ SCH ×2 (08:07→21:35)
[2020-08-24] MEDS: [UNRECOGNIZED DRUG - OTHER] GT SCH ×2 (08:17→21:34)
[2020-08-24] MEDS: BACLOFEN 10 MG TABLET GT SCH ×2 (08:17→21:34)
[2020-08-24] MEDS: [UNRECOGNIZED DRUG - OTHER] XX SCH ×2 (08:18→21:36)
[2020-08-24] MEDS: Z GUARD REMEDY PASTE 57 GM TUBE TOP SCH ×2 (08:18→21:35)
[2020-08-24] MEDS: VITAMINS A AND D OINT TP SCH (08:18)
[2020-08-24] MEDS: HYDROGEN PEROXIDE 3% 118 ML BOTTLE TP SCH ×2 (09:12→21:13)
[2020-08-24] MEDS: JEVITY 1.2 1000 ML LIQUID GT PRN (11:31)
[2020-08-24 20:20] VITALS: BP 103/68
[2020-08-24] MEDS: OMEGA-3 FATTY ACIDS/FISH OIL CAPSULE GT SCH (21:34)
[2020-08-25] MEDS: CHOLECALCIFEROL 1,000 UNIT TABLET GT SCH (05:49)
[2020-08-25] MEDS: LORATADINE 10 MG TABLET GT SCH (05:49)
[2020-08-25] MEDS: OMEPRAZOLE 20 MG CAPSULE.DR GT SCH (05:49)
[2020-08-25 07:50] VITALS: BP 104/71
[2020-08-25] MEDS: HYDROGEN PEROXIDE 3% 118 ML BOTTLE TP SCH ×2 (08:50→18:58)
[2020-08-25] MEDS: VITAMINS A AND D OINT TP SCH (09:43)
[2020-08-25] MEDS: [UNRECOGNIZED DRUG - OTHER] GT SCH ×2 (09:43→21:09)
[2020-08-25] MEDS: BACLOFEN 10 MG TABLET GT SCH ×2 (09:43→21:08)
[2020-08-25] MEDS: [UNRECOGNIZED DRUG - OTHER] XX SCH ×2 (09:43→21:10)
[2020-08-25] MEDS: HEPARIN SODIUM,PORCINE 5,000 UNITS/ML VIAL SQ SCH ×2 (09:43→21:09)
[2020-08-25] MEDS: Z GUARD REMEDY PASTE 57 GM TUBE TOP SCH ×2 (09:43→21:10)
[2020-08-25] MEDS: JEVITY 1.2 1000 ML LIQUID GT PRN (14:00)
--- NOTE | 2020-08-25 18:36 | NUR ---
Covid 19 test done today.per [facility] requirement.Responsible republican notified.
[2020-08-25 20:22] VITALS: BP 106/70
[2020-08-25] MEDS: OMEGA-3 FATTY ACIDS/FISH OIL CAPSULE GT SCH (21:08)
[2020-08-26] MEDS: CHOLECALCIFEROL 1,000 UNIT TABLET GT SCH (05:00)
[2020-08-26] MEDS: LORATADINE 10 MG TABLET GT SCH (05:00)
[2020-08-26] MEDS: OMEPRAZOLE 20 MG CAPSULE.DR GT SCH (05:00)
[2020-08-26] MEDS: HYDROGEN PEROXIDE 3% 118 ML BOTTLE TP SCH ×2 (07:03→21:12)
[2020-08-26 07:32] VITALS: BP 114/74
[2020-08-26] MEDS: [UNRECOGNIZED DRUG - OTHER] GT SCH ×2 (08:24→20:41)
[2020-08-26] MEDS: BACLOFEN 10 MG TABLET GT SCH ×2 (08:24→20:41)
[2020-08-26] MEDS: Z GUARD REMEDY PASTE 57 GM TUBE TOP SCH ×2 (08:25→20:41)
[2020-08-26] MEDS: HEPARIN SODIUM,PORCINE 5,000 UNITS/ML VIAL SQ SCH ×2 (08:25→21:00)
[2020-08-26] MEDS: VITAMINS A AND D OINT TP SCH (08:25)
[2020-08-26] MEDS: [UNRECOGNIZED DRUG - OTHER] XX SCH ×2 (08:26→20:41)
[2020-08-26] MEDS: OMEGA-3 FATTY ACIDS/FISH OIL CAPSULE GT SCH (20:41)
[2020-08-26 20:43] VITALS: BP 116/73
[2020-08-27] MEDS: CHOLECALCIFEROL 1,000 UNIT TABLET GT SCH (06:35)
[2020-08-27] MEDS: LORATADINE 10 MG TABLET GT SCH (06:35)
[2020-08-27] MEDS: OMEPRAZOLE 20 MG CAPSULE.DR GT SCH (06:35)
[2020-08-27 07:25] VITALS: BP 123/57
[2020-08-27 07:27] VITALS: BP 123/57
[2020-08-27] MEDS: HYDROGEN PEROXIDE 3% 118 ML BOTTLE TP SCH ×2 (07:45→21:00)
[2020-08-27] MEDS: Z GUARD REMEDY PASTE 57 GM TUBE TOP SCH ×2 (08:42→21:06)
[2020-08-27] MEDS: [UNRECOGNIZED DRUG - OTHER] XX SCH ×2 (08:42→21:06)
[2020-08-27] MEDS: BACLOFEN 10 MG TABLET GT SCH ×2 (08:42→21:05)
[2020-08-27] MEDS: [UNRECOGNIZED DRUG - OTHER] GT SCH ×2 (08:42→21:05)
[2020-08-27] MEDS: VITAMINS A AND D OINT TP SCH (08:42)
[2020-08-27] MEDS: HEPARIN SODIUM,PORCINE 5,000 UNITS/ML VIAL SQ SCH ×2 (08:45→21:06)
--- NOTE | 2020-08-27 15:30 | NUR ---
video chat done with pt's mother at this time.
[2020-08-27 20:04] VITALS: BP 125/60
[2020-08-27] MEDS: OMEGA-3 FATTY ACIDS/FISH OIL CAPSULE GT SCH (21:05)
[2020-08-27] MEDS: JEVITY 1.2 1000 ML LIQUID GT PRN (23:28)
[2020-08-28] MEDS: CHOLECALCIFEROL 1,000 UNIT TABLET GT SCH (06:03)
[2020-08-28] MEDS: LORATADINE 10 MG TABLET GT SCH (06:03)
[2020-08-28] MEDS: OMEPRAZOLE 20 MG CAPSULE.DR GT SCH (06:03)
[2020-08-28 07:28] VITALS: BP 114/65
[2020-08-28] MEDS: BACLOFEN 10 MG TABLET GT SCH ×2 (08:48→20:44)
[2020-08-28] MEDS: [UNRECOGNIZED DRUG - OTHER] GT SCH ×2 (08:49→20:44)
[2020-08-28] MEDS: VITAMINS A AND D OINT TP SCH (08:52)
[2020-08-28] MEDS: HEPARIN SODIUM,PORCINE 5,000 UNITS/ML VIAL SQ SCH ×2 (08:52→20:54)
[2020-08-28] MEDS: [UNRECOGNIZED DRUG - OTHER] XX SCH ×2 (08:52→20:45)
[2020-08-28] MEDS: Z GUARD REMEDY PASTE 57 GM TUBE TOP SCH ×2 (08:52→20:45)
[2020-08-28] MEDS: HYDROGEN PEROXIDE 3% 118 ML BOTTLE TP SCH ×2 (09:00→21:44)
--- NOTE | 2020-08-28 18:00 | NUR ---
Lizzette pt's mother notified RE: Covid 19 test result negative.
[2020-08-28 20:00] VITALS: BP 106/68
[2020-08-28] MEDS: OMEGA-3 FATTY ACIDS/FISH OIL CAPSULE GT SCH (20:44)
[2020-08-28] MEDS: JEVITY 1.2 1000 ML LIQUID GT PRN (20:52)
[2020-08-29] MEDS: CHOLECALCIFEROL 1,000 UNIT TABLET GT SCH (06:31)
[2020-08-29] MEDS: LORATADINE 10 MG TABLET GT SCH (06:31)
[2020-08-29] MEDS: OMEPRAZOLE 20 MG CAPSULE.DR GT SCH (06:31)
[2020-08-29 07:47] VITALS: BP 110/64
[2020-08-29] MEDS: VITAMINS A AND D OINT TP SCH (08:32)
[2020-08-29] MEDS: Z GUARD REMEDY PASTE 57 GM TUBE TOP SCH ×2 (08:32→20:58)
[2020-08-29] MEDS: BACLOFEN 10 MG TABLET GT SCH ×2 (08:32→20:57)
[2020-08-29] MEDS: [UNRECOGNIZED DRUG - OTHER] XX SCH ×2 (08:32→20:58)
[2020-08-29] MEDS: [UNRECOGNIZED DRUG - OTHER] GT SCH ×2 (08:32→20:57)
[2020-08-29] MEDS: HEPARIN SODIUM,PORCINE 5,000 UNITS/ML VIAL SQ SCH ×2 (08:37→20:58)
[2020-08-29] MEDS: HYDROGEN PEROXIDE 3% 118 ML BOTTLE TP SCH ×2 (09:59→21:35)
[2020-08-29 20:00] VITALS: BP 126/78
[2020-08-29] MEDS: OMEGA-3 FATTY ACIDS/FISH OIL CAPSULE GT SCH (20:57)
[2020-08-30] MEDS: CHOLECALCIFEROL 1,000 UNIT TABLET GT SCH (05:53)
[2020-08-30] MEDS: LORATADINE 10 MG TABLET GT SCH (05:53)
[2020-08-30] MEDS: OMEPRAZOLE 20 MG CAPSULE.DR GT SCH (05:53)
[2020-08-30 07:29] VITALS: BP 131/67
[2020-08-30] MEDS: BACLOFEN 10 MG TABLET GT SCH ×2 (08:34→20:29)
[2020-08-30] MEDS: [UNRECOGNIZED DRUG - OTHER] GT SCH ×2 (08:35→20:29)
[2020-08-30] MEDS: Z GUARD REMEDY PASTE 57 GM TUBE TOP SCH ×2 (08:35→20:29)
[2020-08-30] MEDS: HEPARIN SODIUM,PORCINE 5,000 UNITS/ML VIAL SQ SCH ×2 (08:35→20:33)
[2020-08-30] MEDS: VITAMINS A AND D OINT TP SCH (08:36)
[2020-08-30] MEDS: [UNRECOGNIZED DRUG - OTHER] XX SCH ×2 (08:36→20:29)
[2020-08-30] MEDS: HYDROGEN PEROXIDE 3% 118 ML BOTTLE TP SCH ×2 (08:38→21:17)
--- NOTE | 2020-08-30 15:40 | NUR ---
PT. WAS SEEN BY DR. CARRION AND WITH NNO.
--- NOTE | 2020-08-30 16:15 | NUR ---
SEEN BY DR. SANTA AND WITH NNO.
[2020-08-30 20:00] VITALS: BP 126/70
[2020-08-30] MEDS: OMEGA-3 FATTY ACIDS/FISH OIL CAPSULE GT SCH (20:29)
[2020-08-31] MEDS: OMEPRAZOLE 20 MG CAPSULE.DR GT SCH (05:29)
[2020-08-31] MEDS: LORATADINE 10 MG TABLET GT SCH (05:29)
[2020-08-31] MEDS: CHOLECALCIFEROL 1,000 UNIT TABLET GT SCH (05:30)
[2020-08-31] MEDS: HYDROGEN PEROXIDE 3% 118 ML BOTTLE TP SCH ×2 (07:10→21:38)
[2020-08-31 07:27] VITALS: BP 123/69
[2020-08-31] MEDS: BACLOFEN 10 MG TABLET GT SCH ×2 (08:36→20:45)
[2020-08-31] MEDS: [UNRECOGNIZED DRUG - OTHER] GT SCH ×2 (08:37→20:45)
[2020-08-31] MEDS: Z GUARD REMEDY PASTE 57 GM TUBE TOP SCH ×2 (08:41→20:45)
[2020-08-31] MEDS: HEPARIN SODIUM,PORCINE 5,000 UNITS/ML VIAL SQ SCH ×2 (08:41→21:55)
[2020-08-31] MEDS: VITAMINS A AND D OINT TP SCH (09:00)
[2020-08-31] MEDS: [UNRECOGNIZED DRUG - OTHER] XX SCH ×2 (09:00→20:45)
[2020-08-31] MEDS: JEVITY 1.2 1000 ML LIQUID GT PRN (12:47)
[2020-08-31 19:30] VITALS: BP 102/66
[2020-08-31] MEDS: OMEGA-3 FATTY ACIDS/FISH OIL CAPSULE GT SCH (20:45)
[2020-09-01] MEDS: OMEPRAZOLE 20 MG CAPSULE.DR GT SCH (05:51)
[2020-09-01] MEDS: LORATADINE 10 MG TABLET GT SCH (05:51)
[2020-09-01] MEDS: CHOLECALCIFEROL 1,000 UNIT TABLET GT SCH (05:51)
[2020-09-01] MEDS: HYDROGEN PEROXIDE 3% 118 ML BOTTLE TP SCH ×2 (07:15→20:08)
[2020-09-01 07:30] VITALS: BP 107/68
[2020-09-01] MEDS: [UNRECOGNIZED DRUG - OTHER] GT SCH ×2 (08:29→20:08)
[2020-09-01] MEDS: BACLOFEN 10 MG TABLET GT SCH ×2 (08:29→20:08)
[2020-09-01] MEDS: Z GUARD REMEDY PASTE 57 GM TUBE TOP SCH ×2 (08:30→20:08)
[2020-09-01] MEDS: VITAMINS A AND D OINT TP SCH (08:30)
[2020-09-01] MEDS: JEVITY 1.2 1000 ML LIQUID GT PRN (08:30)
[2020-09-01] MEDS: [UNRECOGNIZED DRUG - OTHER] XX SCH ×2 (08:30→20:08)
[2020-09-01] MEDS: HEPARIN SODIUM,PORCINE 5,000 UNITS/ML VIAL SQ SCH ×2 (08:30→21:00)
[2020-09-01 19:38] VITALS: BP 126/51
[2020-09-01] MEDS: OMEGA-3 FATTY ACIDS/FISH OIL CAPSULE GT SCH (20:07)
[2020-09-02] MEDS: CHOLECALCIFEROL 1,000 UNIT TABLET GT SCH (05:31)
[2020-09-02] MEDS: OMEPRAZOLE 20 MG CAPSULE.DR GT SCH (05:31)
[2020-09-02] MEDS: LORATADINE 10 MG TABLET GT SCH (05:31)
--- NOTE | 2020-09-02 07:01 | NUR ---
Will test patient for COVID-19 today.
[2020-09-02] MEDS: HYDROGEN PEROXIDE 3% 118 ML BOTTLE TP SCH ×2 (07:15→20:11)
[2020-09-02 07:52] VITALS: BP 96/66
[2020-09-02] MEDS: BACLOFEN 10 MG TABLET GT SCH ×2 (08:51→20:11)
[2020-09-02] MEDS: [UNRECOGNIZED DRUG - OTHER] GT SCH ×2 (08:51→20:11)
[2020-09-02] MEDS: Z GUARD REMEDY PASTE 57 GM TUBE TOP SCH ×2 (08:53→20:11)
[2020-09-02] MEDS: HEPARIN SODIUM,PORCINE 5,000 UNITS/ML VIAL SQ SCH ×2 (08:53→21:00)
[2020-09-02] MEDS: [UNRECOGNIZED DRUG - OTHER] XX SCH ×2 (08:53→20:11)
[2020-09-02] MEDS: VITAMINS A AND D OINT TP SCH (08:53)
--- NOTE | 2020-09-02 15:35 | NUR ---
PT. SEEN NAD EXAMINED BY DR. SANTA AND WITH NNO.
--- NOTE | 2020-09-02 17:28 | NUR ---
NO COVID 19 TEST REQUIRED TODAY BY [facility] PT'S MOTHER AWARE.
[2020-09-02] MEDS: OMEGA-3 FATTY ACIDS/FISH OIL CAPSULE GT SCH (20:11)
[2020-09-02 20:18] VITALS: BP 105/61
[2020-09-03] MEDS: OMEPRAZOLE 20 MG CAPSULE.DR GT SCH (05:27)
[2020-09-03] MEDS: LORATADINE 10 MG TABLET GT SCH (05:27)
[2020-09-03] MEDS: CHOLECALCIFEROL 1,000 UNIT TABLET GT SCH (05:28)
[2020-09-03 08:04] VITALS: BP 102/66
[2020-09-03] MEDS: HYDROGEN PEROXIDE 3% 118 ML BOTTLE TP SCH ×2 (09:21→21:05)
[2020-09-03] MEDS: BACLOFEN 10 MG TABLET GT SCH ×2 (09:27→20:04)
[2020-09-03] MEDS: [UNRECOGNIZED DRUG - OTHER] GT SCH ×2 (09:28→20:04)
[2020-09-03] MEDS: HEPARIN SODIUM,PORCINE 5,000 UNITS/ML VIAL SQ SCH ×2 (09:33→20:04)
[2020-09-03] MEDS: VITAMINS A AND D OINT TP SCH (09:34)
[2020-09-03] MEDS: Z GUARD REMEDY PASTE 57 GM TUBE TOP SCH ×2 (09:34→20:04)
[2020-09-03] MEDS: [UNRECOGNIZED DRUG - OTHER] XX SCH ×2 (09:34→20:04)
--- NOTE | 2020-09-03 13:59 | NUR ---
INTERDISCIPLINARY PLAN OF CARE CONFERENCE was held today. Patient's parents were not available to participate in the meeting. Dr. Castro and the Interdisciplinary team reviewed the current plan of care in detail. RN reported on the patient's medical condition. No major changes in patient's condition were reported by RN or by the other disciplines. See RN IDT conference notes. See also all other disciplines IDT notes and physician's progress notes for additional details.
[2020-09-03] MEDS: JEVITY 1.2 1000 ML LIQUID GT PRN (18:45)
[2020-09-03 20:02] VITALS: BP 113/67
[2020-09-03] MEDS: OMEGA-3 FATTY ACIDS/FISH OIL CAPSULE GT SCH (20:04)
[2020-09-04] MEDS: OMEPRAZOLE 20 MG CAPSULE.DR GT SCH (06:12)
[2020-09-04] MEDS: CHOLECALCIFEROL 1,000 UNIT TABLET GT SCH (06:12)
[2020-09-04] MEDS: LORATADINE 10 MG TABLET GT SCH (06:12)
[2020-09-04] MEDS: HYDROGEN PEROXIDE 3% 118 ML BOTTLE TP PRN (07:22)
[2020-09-04 07:41] VITALS: BP 120/61
[2020-09-04] MEDS: BACLOFEN 10 MG TABLET GT SCH ×2 (08:48→21:00)
[2020-09-04] MEDS: [UNRECOGNIZED DRUG - OTHER] XX SCH ×2 (08:48→21:00)
[2020-09-04] MEDS: Z GUARD REMEDY PASTE 57 GM TUBE TOP SCH ×2 (08:48→21:00)
[2020-09-04] MEDS: [UNRECOGNIZED DRUG - OTHER] GT SCH ×2 (08:48→21:00)
[2020-09-04] MEDS: VITAMINS A AND D OINT TP SCH (08:48)
[2020-09-04] MEDS: HEPARIN SODIUM,PORCINE 5,000 UNITS/ML VIAL SQ SCH ×2 (08:51→21:00)
[2020-09-04 20:19] VITALS: BP 101/58
[2020-09-04] MEDS: OMEGA-3 FATTY ACIDS/FISH OIL CAPSULE GT SCH (21:00)
[2020-09-04] MEDS: HYDROGEN PEROXIDE 3% 118 ML BOTTLE TP SCH (21:24)
[2020-09-05] MEDS: LORATADINE 10 MG TABLET GT SCH (06:14)
[2020-09-05] MEDS: CHOLECALCIFEROL 1,000 UNIT TABLET GT SCH (06:14)
[2020-09-05] MEDS: OMEPRAZOLE 20 MG CAPSULE.DR GT SCH (06:14)
[2020-09-05 07:37] VITALS: BP 110/64
[2020-09-05] MEDS: [UNRECOGNIZED DRUG - OTHER] GT SCH ×2 (08:21→21:26)
[2020-09-05] MEDS: BACLOFEN 10 MG TABLET GT SCH ×2 (08:21→21:25)
[2020-09-05] MEDS: HEPARIN SODIUM,PORCINE 5,000 UNITS/ML VIAL SQ SCH ×2 (08:22→21:31)
[2020-09-05] MEDS: VITAMINS A AND D OINT TP SCH (08:22)
[2020-09-05] MEDS: Z GUARD REMEDY PASTE 57 GM TUBE TOP SCH ×2 (08:22→21:28)
[2020-09-05] MEDS: [UNRECOGNIZED DRUG - OTHER] XX SCH ×2 (08:22→21:28)
[2020-09-05] MEDS: HYDROGEN PEROXIDE 3% 118 ML BOTTLE TP SCH ×2 (09:17→21:42)
[2020-09-05] MEDS: JEVITY 1.2 1000 ML LIQUID GT PRN (12:07)
[2020-09-05 20:10] VITALS: BP 99/66
[2020-09-05] MEDS: OMEGA-3 FATTY ACIDS/FISH OIL CAPSULE GT SCH (21:25)
[2020-09-06] MEDS: JEVITY 1.2 1000 ML LIQUID GT PRN (05:58)
[2020-09-06] MEDS: OMEPRAZOLE 20 MG CAPSULE.DR GT SCH (05:58)
[2020-09-06] MEDS: LORATADINE 10 MG TABLET GT SCH (05:58)
[2020-09-06] MEDS: CHOLECALCIFEROL 1,000 UNIT TABLET GT SCH (05:58)
[2020-09-06 07:39] VITALS: BP 96/53
[2020-09-06] MEDS: BACLOFEN 10 MG TABLET GT SCH ×2 (08:21→21:38)
[2020-09-06] MEDS: [UNRECOGNIZED DRUG - OTHER] GT SCH ×2 (08:21→21:38)
[2020-09-06] MEDS: Z GUARD REMEDY PASTE 57 GM TUBE TOP SCH ×2 (08:23→21:38)
[2020-09-06] MEDS: VITAMINS A AND D OINT TP SCH (08:23)
[2020-09-06] MEDS: HEPARIN SODIUM,PORCINE 5,000 UNITS/ML VIAL SQ SCH ×2 (08:23→21:00)
[2020-09-06] MEDS: [UNRECOGNIZED DRUG - OTHER] XX SCH ×2 (08:23→21:38)
[2020-09-06] MEDS: HYDROGEN PEROXIDE 3% 118 ML BOTTLE TP SCH ×2 (08:57→21:15)
[2020-09-06] MEDS: OMEGA-3 FATTY ACIDS/FISH OIL CAPSULE GT SCH (21:38)
[2020-09-06 22:39] VITALS: BP 98/62
[2020-09-07] MEDS: JEVITY 1.2 1000 ML LIQUID GT PRN ×2 (01:21→17:42)
[2020-09-07] MEDS: CHOLECALCIFEROL 1,000 UNIT TABLET GT SCH (05:47)
[2020-09-07] MEDS: LORATADINE 10 MG TABLET GT SCH (05:47)
[2020-09-07] MEDS: OMEPRAZOLE 20 MG CAPSULE.DR GT SCH (05:47)
[2020-09-07 07:42] VITALS: BP 122/69
[2020-09-07] MEDS: BACLOFEN 10 MG TABLET GT SCH ×2 (08:45→20:40)
[2020-09-07] MEDS: [UNRECOGNIZED DRUG - OTHER] XX SCH ×2 (08:45→20:40)
[2020-09-07] MEDS: VITAMINS A AND D OINT TP SCH (08:45)
[2020-09-07] MEDS: [UNRECOGNIZED DRUG - OTHER] GT SCH ×2 (08:45→20:40)
[2020-09-07] MEDS: Z GUARD REMEDY PASTE 57 GM TUBE TOP SCH ×2 (08:45→20:40)
[2020-09-07] MEDS: HEPARIN SODIUM,PORCINE 5,000 UNITS/ML VIAL SQ SCH ×2 (08:46→20:50)
[2020-09-07] MEDS: HYDROGEN PEROXIDE 3% 118 ML BOTTLE TP SCH ×2 (09:04→20:40)
[2020-09-07] MEDS: OMEGA-3 FATTY ACIDS/FISH OIL CAPSULE GT SCH (20:40)
[2020-09-07 22:22] VITALS: BP 112/64
[2020-09-08] MEDS: OMEPRAZOLE 20 MG CAPSULE.DR GT SCH (05:01)
[2020-09-08] MEDS: LORATADINE 10 MG TABLET GT SCH (05:01)
[2020-09-08] MEDS: CHOLECALCIFEROL 1,000 UNIT TABLET GT SCH (05:02)
[2020-09-08 07:42] VITALS: BP 124/60
[2020-09-08] MEDS: BACLOFEN 10 MG TABLET GT SCH ×2 (08:52→21:05)
[2020-09-08] MEDS: VITAMINS A AND D OINT TP SCH (08:52)
[2020-09-08] MEDS: [UNRECOGNIZED DRUG - OTHER] GT SCH ×2 (08:52→21:05)
[2020-09-08] MEDS: [UNRECOGNIZED DRUG - OTHER] XX SCH ×2 (08:52→21:05)
[2020-09-08] MEDS: Z GUARD REMEDY PASTE 57 GM TUBE TOP SCH ×2 (08:52→21:05)
[2020-09-08] MEDS: HEPARIN SODIUM,PORCINE 5,000 UNITS/ML VIAL SQ SCH ×2 (08:59→21:57)
[2020-09-08] MEDS: HYDROGEN PEROXIDE 3% 118 ML BOTTLE TP SCH ×2 (09:19→20:34)
[2020-09-08 19:55] VITALS: BP 122/64
[2020-09-08] MEDS: OMEGA-3 FATTY ACIDS/FISH OIL CAPSULE GT SCH (21:05)
[2020-09-09] MEDS: LORATADINE 10 MG TABLET GT SCH (06:19)
[2020-09-09] MEDS: OMEPRAZOLE 20 MG CAPSULE.DR GT SCH (06:19)
[2020-09-09] MEDS: CHOLECALCIFEROL 1,000 UNIT TABLET GT SCH (06:19)
[2020-09-09 08:03] VITALS: BP 97/63
[2020-09-09] MEDS: HYDROGEN PEROXIDE 3% 118 ML BOTTLE TP PRN (08:18)
[2020-09-09] MEDS: BACLOFEN 10 MG TABLET GT SCH ×2 (08:42→20:54)
[2020-09-09] MEDS: [UNRECOGNIZED DRUG - OTHER] GT SCH ×2 (08:44→20:54)
[2020-09-09] MEDS: Z GUARD REMEDY PASTE 57 GM TUBE TOP SCH ×2 (08:46→20:55)
[2020-09-09] MEDS: VITAMINS A AND D OINT TP SCH (08:46)
[2020-09-09] MEDS: [UNRECOGNIZED DRUG - OTHER] XX SCH ×2 (08:47→20:55)
[2020-09-09] MEDS: HEPARIN SODIUM,PORCINE 5,000 UNITS/ML VIAL SQ SCH ×2 (08:50→21:06)
[2020-09-09] MEDS: HYDROGEN PEROXIDE 3% 118 ML BOTTLE TP SCH ×2 (09:00→18:53)
[2020-09-09] MEDS: JEVITY 1.2 1000 ML LIQUID GT PRN (12:22)
[2020-09-09 20:08] VITALS: BP 91/58
[2020-09-09] MEDS: OMEGA-3 FATTY ACIDS/FISH OIL CAPSULE GT SCH (20:54)
[2020-09-10] MEDS: JEVITY 1.2 1000 ML LIQUID GT PRN (04:49)
[2020-09-10] MEDS: CHOLECALCIFEROL 1,000 UNIT TABLET GT SCH (05:42)
[2020-09-10] MEDS: OMEPRAZOLE 20 MG CAPSULE.DR GT SCH (05:42)
[2020-09-10] MEDS: LORATADINE 10 MG TABLET GT SCH (05:42)
[2020-09-10 07:30] VITALS: BP 118/70
[2020-09-10] MEDS: BACLOFEN 10 MG TABLET GT SCH ×2 (08:35→20:12)
[2020-09-10] MEDS: HEPARIN SODIUM,PORCINE 5,000 UNITS/ML VIAL SQ SCH ×2 (08:35→20:14)
[2020-09-10] MEDS: [UNRECOGNIZED DRUG - OTHER] GT SCH ×2 (08:35→20:12)
[2020-09-10] MEDS: [UNRECOGNIZED DRUG - OTHER] XX SCH ×2 (08:36→20:12)
[2020-09-10] MEDS: Z GUARD REMEDY PASTE 57 GM TUBE TOP SCH ×2 (08:36→20:12)
[2020-09-10] MEDS: VITAMINS A AND D OINT TP SCH (08:36)
[2020-09-10] MEDS: HYDROGEN PEROXIDE 3% 118 ML BOTTLE TP SCH ×2 (09:38→20:30)
[2020-09-10] MEDS: OMEGA-3 FATTY ACIDS/FISH OIL CAPSULE GT SCH (20:12)
[2020-09-10 20:46] VITALS: BP 119/35
[2020-09-11] MEDS: JEVITY 1.2 1000 ML LIQUID GT PRN (01:57)
[2020-09-11] MEDS: CHOLECALCIFEROL 1,000 UNIT TABLET GT SCH (05:17)
[2020-09-11] MEDS: LORATADINE 10 MG TABLET GT SCH (05:17)
[2020-09-11] MEDS: OMEPRAZOLE 20 MG CAPSULE.DR GT SCH (05:17)
[2020-09-11 07:51] VITALS: BP 128/44
[2020-09-11] MEDS: BACLOFEN 10 MG TABLET GT SCH ×2 (08:37→20:01)
[2020-09-11] MEDS: [UNRECOGNIZED DRUG - OTHER] XX SCH ×2 (08:38→20:01)
[2020-09-11] MEDS: Z GUARD REMEDY PASTE 57 GM TUBE TOP SCH ×2 (08:38→20:01)
[2020-09-11] MEDS: [UNRECOGNIZED DRUG - OTHER] GT SCH ×2 (08:38→20:01)
[2020-09-11] MEDS: VITAMINS A AND D OINT TP SCH (08:38)
[2020-09-11] MEDS: HEPARIN SODIUM,PORCINE 5,000 UNITS/ML VIAL SQ SCH ×2 (08:39→20:03)
[2020-09-11] MEDS: HYDROGEN PEROXIDE 3% 118 ML BOTTLE TP SCH ×2 (09:33→21:00)
[2020-09-11 20:00] VITALS: BP 98/71
[2020-09-11] MEDS: OMEGA-3 FATTY ACIDS/FISH OIL CAPSULE GT SCH (20:01)
[2020-09-12] MEDS: JEVITY 1.2 1000 ML LIQUID GT PRN ×2 (00:06→18:23)
[2020-09-12] MEDS: CHOLECALCIFEROL 1,000 UNIT TABLET GT SCH (06:18)
[2020-09-12] MEDS: OMEPRAZOLE 20 MG CAPSULE.DR GT SCH (06:18)
[2020-09-12] MEDS: LORATADINE 10 MG TABLET GT SCH (06:18)
[2020-09-12 07:34] VITALS: BP 103/60
[2020-09-12] MEDS: HEPARIN SODIUM,PORCINE 5,000 UNITS/ML VIAL SQ SCH ×2 (09:12→20:55)
[2020-09-12] MEDS: VITAMINS A AND D OINT TP SCH (09:13)
[2020-09-12] MEDS: [UNRECOGNIZED DRUG - OTHER] XX SCH ×2 (09:13→20:16)
[2020-09-12] MEDS: Z GUARD REMEDY PASTE 57 GM TUBE TOP SCH ×2 (09:13→20:16)
[2020-09-12] MEDS: [UNRECOGNIZED DRUG - OTHER] GT SCH ×2 (09:16→20:16)
[2020-09-12] MEDS: BACLOFEN 10 MG TABLET GT SCH ×2 (09:16→20:16)
[2020-09-12] MEDS: HYDROGEN PEROXIDE 3% 118 ML BOTTLE TP SCH ×2 (09:45→21:25)
[2020-09-12 20:00] VITALS: BP 111/69
[2020-09-12] MEDS: OMEGA-3 FATTY ACIDS/FISH OIL CAPSULE GT SCH (20:16)
[2020-09-13] MEDS: OMEPRAZOLE 20 MG CAPSULE.DR GT SCH (06:14)
[2020-09-13] MEDS: LORATADINE 10 MG TABLET GT SCH (06:14)
[2020-09-13] MEDS: CHOLECALCIFEROL 1,000 UNIT TABLET GT SCH (06:14)
[2020-09-13] MEDS: HYDROGEN PEROXIDE 3% 118 ML BOTTLE TP SCH ×2 (07:47→21:15)
[2020-09-13 07:51] VITALS: BP 109/51
[2020-09-13] MEDS: [UNRECOGNIZED DRUG - OTHER] GT SCH ×2 (08:47→21:06)
[2020-09-13] MEDS: BACLOFEN 10 MG TABLET GT SCH ×2 (08:47→21:05)
[2020-09-13] MEDS: VITAMINS A AND D OINT TP SCH (08:48)
[2020-09-13] MEDS: Z GUARD REMEDY PASTE 57 GM TUBE TOP SCH ×2 (08:48→21:06)
[2020-09-13] MEDS: HEPARIN SODIUM,PORCINE 5,000 UNITS/ML VIAL SQ SCH ×2 (08:48→21:08)
[2020-09-13] MEDS: [UNRECOGNIZED DRUG - OTHER] XX SCH ×2 (08:49→21:06)
[2020-09-13] MEDS: JEVITY 1.2 1000 ML LIQUID GT PRN (12:32)
[2020-09-13 20:00] VITALS: BP 110/74
[2020-09-13] MEDS: OMEGA-3 FATTY ACIDS/FISH OIL CAPSULE GT SCH (21:05)
[2020-09-14] MEDS: JEVITY 1.2 1000 ML LIQUID GT PRN (04:08)
[2020-09-14] MEDS: CHOLECALCIFEROL 1,000 UNIT TABLET GT SCH (05:31)
[2020-09-14] MEDS: OMEPRAZOLE 20 MG CAPSULE.DR GT SCH (05:31)
[2020-09-14] MEDS: LORATADINE 10 MG TABLET GT SCH (05:31)
[2020-09-14] MEDS: HYDROGEN PEROXIDE 3% 118 ML BOTTLE TP SCH ×2 (07:15→21:15)
[2020-09-14 08:00] VITALS: BP 126/57
[2020-09-14] MEDS: [UNRECOGNIZED DRUG - OTHER] GT SCH ×2 (08:50→21:00)
[2020-09-14] MEDS: BACLOFEN 10 MG TABLET GT SCH ×2 (08:50→21:00)
[2020-09-14] MEDS: HEPARIN SODIUM,PORCINE 5,000 UNITS/ML VIAL SQ SCH ×2 (08:53→21:01)
[2020-09-14] MEDS: [UNRECOGNIZED DRUG - OTHER] XX SCH ×2 (08:55→21:00)
[2020-09-14] MEDS: VITAMINS A AND D OINT TP SCH (08:55)
[2020-09-14] MEDS: Z GUARD REMEDY PASTE 57 GM TUBE TOP SCH ×2 (08:55→21:00)
[2020-09-14 20:07] VITALS: BP 116/60
[2020-09-14] MEDS: OMEGA-3 FATTY ACIDS/FISH OIL CAPSULE GT SCH (21:00)
[2020-09-15] MEDS: JEVITY 1.2 1000 ML LIQUID GT PRN (01:23)
[2020-09-15] MEDS: LORATADINE 10 MG TABLET GT SCH (05:46)
[2020-09-15] MEDS: OMEPRAZOLE 20 MG CAPSULE.DR GT SCH (05:46)
[2020-09-15] MEDS: CHOLECALCIFEROL 1,000 UNIT TABLET GT SCH (05:46)
[2020-09-15 07:37] VITALS: BP 105/55
[2020-09-15] MEDS: BACLOFEN 10 MG TABLET GT SCH ×2 (08:27→20:59)
[2020-09-15] MEDS: [UNRECOGNIZED DRUG - OTHER] GT SCH ×2 (08:27→20:59)
[2020-09-15] MEDS: HEPARIN SODIUM,PORCINE 5,000 UNITS/ML VIAL SQ SCH ×2 (08:28→21:00)
[2020-09-15] MEDS: VITAMINS A AND D OINT TP SCH (08:29)
[2020-09-15] MEDS: [UNRECOGNIZED DRUG - OTHER] XX SCH ×2 (08:29→21:00)
[2020-09-15] MEDS: Z GUARD REMEDY PASTE 57 GM TUBE TOP SCH ×2 (08:29→20:59)
[2020-09-15] MEDS: HYDROGEN PEROXIDE 3% 118 ML BOTTLE TP SCH ×2 (09:51→21:02)
--- NOTE | 2020-09-15 12:12 | NUR ---
Pt's mother and resp. [employer] party aware and in agreement of covid [address] Diaz per [facility] requirement.
[2020-09-15 20:26] VITALS: BP 104/64
[2020-09-15] MEDS: OMEGA-3 FATTY ACIDS/FISH OIL CAPSULE GT SCH (20:59)
[2020-09-16] MEDS: JEVITY 1.2 1000 ML LIQUID GT PRN ×2 (01:04→22:30)
[2020-09-16] MEDS: LORATADINE 10 MG TABLET GT SCH (05:51)
[2020-09-16] MEDS: OMEPRAZOLE 20 MG CAPSULE.DR GT SCH (05:51)
[2020-09-16] MEDS: CHOLECALCIFEROL 1,000 UNIT TABLET GT SCH (05:51)
[2020-09-16 07:34] VITALS: BP 112/65
[2020-09-16] MEDS: BACLOFEN 10 MG TABLET GT SCH ×2 (09:12→20:52)
[2020-09-16] MEDS: [UNRECOGNIZED DRUG - OTHER] GT SCH ×2 (09:12→20:52)
[2020-09-16] MEDS: [UNRECOGNIZED DRUG - OTHER] XX SCH ×2 (09:13→20:52)
[2020-09-16] MEDS: VITAMINS A AND D OINT TP SCH (09:13)
[2020-09-16] MEDS: Z GUARD REMEDY PASTE 57 GM TUBE TOP SCH ×2 (09:13→20:52)
[2020-09-16] MEDS: HEPARIN SODIUM,PORCINE 5,000 UNITS/ML VIAL SQ SCH ×2 (09:13→21:00)
[2020-09-16] MEDS: HYDROGEN PEROXIDE 3% 118 ML BOTTLE TP SCH ×2 (09:49→21:23)
[2020-09-16 20:00] VITALS: BP 120/71
[2020-09-16] MEDS: OMEGA-3 FATTY ACIDS/FISH OIL CAPSULE GT SCH (20:52)
[2020-09-17] MEDS: OMEPRAZOLE 20 MG CAPSULE.DR GT SCH (05:47)
[2020-09-17] MEDS: LORATADINE 10 MG TABLET GT SCH (05:47)
[2020-09-17] MEDS: CHOLECALCIFEROL 1,000 UNIT TABLET GT SCH (05:47)
--- NOTE | 2020-09-17 06:39 | NUR ---
g tube came out, reinserted gt without difficulty, kub with gastrografin to confirm gt placement ordered.
[2020-09-17] MEDS: HYDROGEN PEROXIDE 3% 118 ML BOTTLE TP SCH ×2 (07:22→21:11)
[2020-09-17 07:23] VITALS: BP 109/58
[2020-09-17] MEDS: HEPARIN SODIUM,PORCINE 5,000 UNITS/ML VIAL SQ SCH ×2 (08:27→20:55)
[2020-09-17] MEDS: [UNRECOGNIZED DRUG - OTHER] XX SCH ×2 (08:29→20:56)
[2020-09-17] MEDS: VITAMINS A AND D OINT TP SCH (08:29)
[2020-09-17] MEDS: [UNRECOGNIZED DRUG - OTHER] GT SCH ×2 (08:29→20:52)
[2020-09-17] MEDS: BACLOFEN 10 MG TABLET GT SCH ×2 (08:29→20:51)
[2020-09-17] MEDS: Z GUARD REMEDY PASTE 57 GM TUBE TOP SCH ×2 (08:29→20:56)
--- NOTE | 2020-09-17 11:06 | NUR ---
PT'S MOTHER AWARE OF COVID 19 TEST NEGATIVE.
--- NOTE | 2020-09-17 15:30 | NUR ---
Seen and examined by Dr Diaz,no new orders.
[2020-09-17 20:00] VITALS: BP 99/69
[2020-09-17] MEDS: OMEGA-3 FATTY ACIDS/FISH OIL CAPSULE GT SCH (20:51)
[2020-09-18] MEDS: CHOLECALCIFEROL 1,000 UNIT TABLET GT SCH (06:17)
[2020-09-18] MEDS: LORATADINE 10 MG TABLET GT SCH (06:17)
[2020-09-18] MEDS: OMEPRAZOLE 20 MG CAPSULE.DR GT SCH (06:17)
[2020-09-18] MEDS: HYDROGEN PEROXIDE 3% 118 ML BOTTLE TP SCH ×2 (07:15→20:57)
[2020-09-18 07:24] VITALS: BP 110/77
[2020-09-18] MEDS: BACLOFEN 10 MG TABLET GT SCH ×2 (08:38→20:48)
[2020-09-18] MEDS: [UNRECOGNIZED DRUG - OTHER] GT SCH ×2 (08:38→20:48)
[2020-09-18] MEDS: Z GUARD REMEDY PASTE 57 GM TUBE TOP SCH ×2 (08:39→20:50)
[2020-09-18] MEDS: HEPARIN SODIUM,PORCINE 5,000 UNITS/ML VIAL SQ SCH ×2 (08:39→20:50)
[2020-09-18] MEDS: VITAMINS A AND D OINT TP SCH (09:00)
[2020-09-18] MEDS: [UNRECOGNIZED DRUG - OTHER] XX SCH ×2 (09:30→20:50)
[2020-09-18] MEDS: JEVITY 1.2 1000 ML LIQUID GT PRN (12:57)
[2020-09-18 20:00] VITALS: BP 111/68
[2020-09-18] MEDS: OMEGA-3 FATTY ACIDS/FISH OIL CAPSULE GT SCH (20:48)
--- NOTE | 2020-09-19 03:05 | NUR ---
Patient is afebrile, temperature is 98.6, no signs of any distress, 02 sat @ 99%, fluids given as ordered, kept clean and comfortable, will continue monitor.
[2020-09-19] MEDS: CHOLECALCIFEROL 1,000 UNIT TABLET GT SCH (05:58)
[2020-09-19] MEDS: LORATADINE 10 MG TABLET GT SCH (05:58)
[2020-09-19] MEDS: OMEPRAZOLE 20 MG CAPSULE.DR GT SCH (05:58)
[2020-09-19] MEDS: HYDROGEN PEROXIDE 3% 118 ML BOTTLE TP SCH ×2 (07:15→21:42)
[2020-09-19] MEDS: ACETAMINOPHEN 650 MG/20 ML UDC- SA PATIENTS-FEVER ONLY GT PRN ×2 (07:57→17:55)
[2020-09-19] MEDS: [UNRECOGNIZED DRUG - OTHER] GT SCH ×2 (08:07→20:56)
[2020-09-19] MEDS: HEPARIN SODIUM,PORCINE 5,000 UNITS/ML VIAL SQ SCH ×2 (08:07→20:58)
[2020-09-19] MEDS: BACLOFEN 10 MG TABLET GT SCH ×2 (08:07→20:55)
[2020-09-19] MEDS: VITAMINS A AND D OINT TP SCH (08:08)
[2020-09-19] MEDS: Z GUARD REMEDY PASTE 57 GM TUBE TOP SCH ×2 (08:08→20:58)
[2020-09-19 08:09] VITALS: BP 109/75
[2020-09-19] MEDS: [UNRECOGNIZED DRUG - OTHER] XX SCH ×2 (08:10→20:58)
[2020-09-19] MEDS: JEVITY 1.2 1000 ML LIQUID GT PRN (08:10)
--- NOTE | 2020-09-19 09:20 | NUR ---
NOTED WITH ELEVATED TEMP OF 100.7 AND PULSE OF 104. PAGED AND NOTIFIED DR BETHEA, WITH NEW ORDERS, NOTED AND CARRIED OUT.
[2020-09-19] MEDS: levoFLOXacin 750 MG TABLET GT SCH (11:00)
--- NOTE | 2020-09-19 11:20 | NUR ---
PATIENT'S MOTHER MADE AWARE OF THE ELEVATED TEMP AND THE MD'S PLAN OF CARE. MOTHER AGREED.
[2020-09-19 11:25] LABS: BASOPHILS % (AUTO) 0.2 % (0.0-2.0); EOSINOPHILS # (AUTO) 0.1 K/uL (0.0-0.7); EOSINOPHILS % (AUTO) 0.2 % (0.0-7.0); HEMATOCRIT 43.9 % (36.7-47.1); HEMOGLOBIN 14.8 g/dL (12.5-16.3); LYMPHOCYTES # (AUTO) 2.9 K/uL (20.0-40.0); LYMPHOCYTES % (AUTO) 13.1 % (20.5-51.5); MEAN CORPUSCULAR HEMOGLOBIN 31.5 uug (23.8-33.4); MEAN CORPUSCULAR HGB CONC 34 g/dL (32.5-36.3); MEAN CORPUSCULAR VOLUME 93.5 fL (73.0-96.2); MONOCYTES # (AUTO) 2.8 K/uL (2.0-10.0); MONOCYTES % (AUTO) 12.4 % (0.0-11.0); NEUTROPHILS # (AUTO) 16.6 K/uL (1.8-8.9); NEUTROPHILS % (AUTO) 74.1 % (38.5-71.5); PLATELET COUNT (AUTO) 235 K/uL (152-348); WHITE BLOOD COUNT (AUTO) 22.4 K/uL (3.6-10.2)
[2020-09-19 11:28] LABS: CARBON DIOXIDE 28 mmol/L (21-32); CHLORIDE 101 mmol/L (98-107); CREATININE 0.6 mg/dL (0.6-1.3); GLUCOSE 91 mg/dL (74-106); POTASSIUM 3.8 mmol/L (3.5-5.1); UREA NITROGEN, BLOOD 11 mg/dL (7-18)
--- NOTE | 2020-09-19 17:02 | NUR ---
CALLED AND NOTIFIED [employer] OF ANNUAL PPD TEST. NOTIFIED ZHANG OF THE PPD TEST AND SHE OKAYED TO GIVE TEST.
--- NOTE | 2020-09-19 18:20 | NUR ---
PATIENT NOTED WITH ELEVATED TEMP OF 102.4 AND PULSE 110. LABS SHOW ELEVATED WBC OF 22.4 ATELECTASIS / INFILTRATION. PAGED DR BETHEA AND LEFT MESSAGE FOR HIS ON-CALL, DR WILKERSON.WAITING FOR A CALL BACK. ENDORSED TO NEXT SHIFT TO FOLLOW UP.
[2020-09-19 20:00] VITALS: BP 95/58
--- NOTE | 2020-09-19 20:27 | NUR ---
Notified Dr. Christopher about CXR and lab results with no new orders.
[2020-09-19] MEDS: OMEGA-3 FATTY ACIDS/FISH OIL CAPSULE GT SCH (20:55)
--- NOTE | 2020-09-19 22:00 | NUR ---
Temperature is 98.4, no signs of any distress, on Levaquin 750mg via gt daily for fever, no adverse reactions noted, suctioned with yellow secretions, fluids given as ordered, kept clean and comfortable.
[2020-09-20] MEDS: JEVITY 1.2 1000 ML LIQUID GT PRN ×2 (01:00→18:40)
[2020-09-20] MEDS: CHOLECALCIFEROL 1,000 UNIT TABLET GT SCH (06:03)
[2020-09-20] MEDS: LORATADINE 10 MG TABLET GT SCH (06:03)
[2020-09-20] MEDS: OMEPRAZOLE 20 MG CAPSULE.DR GT SCH (06:03)
--- NOTE | 2020-09-20 06:23 | NUR ---
T: 98.6, afebrile, no signs of any distress, sleeping comfortably,Kept clean and comfortable, will continue monitor.
[2020-09-20 07:30] VITALS: BP 105/68
[2020-09-20] MEDS: BACLOFEN 10 MG TABLET GT SCH ×2 (09:08→20:28)
[2020-09-20] MEDS: [UNRECOGNIZED DRUG - OTHER] GT SCH ×2 (09:08→20:28)
[2020-09-20] MEDS: VITAMINS A AND D OINT TP SCH (09:09)
[2020-09-20] MEDS: [UNRECOGNIZED DRUG - OTHER] XX SCH ×2 (09:09→20:28)
[2020-09-20] MEDS: HEPARIN SODIUM,PORCINE 5,000 UNITS/ML VIAL SQ SCH ×2 (09:09→20:20)
[2020-09-20] MEDS: Z GUARD REMEDY PASTE 57 GM TUBE TOP SCH ×2 (09:09→20:28)
[2020-09-20] MEDS: HYDROGEN PEROXIDE 3% 118 ML BOTTLE TP SCH ×2 (09:37→21:50)
[2020-09-20] MEDS: levoFLOXacin 750 MG TABLET GT SCH (10:02)
--- NOTE | 2020-09-20 15:11 | NUR ---
Seen by Adeola Pendleton, notified of pt's condition, cbc ordered for tomorrow.
--- NOTE | 2020-09-20 20:00 | NUR ---
Patient noted with right 2nd finger reddish discoloration, no swelling noted, skin is intact, handled very gently, will continue monitor.
[2020-09-20 20:11] VITALS: BP 118/68
[2020-09-20] MEDS: OMEGA-3 FATTY ACIDS/FISH OIL CAPSULE GT SCH (20:28)
--- NOTE | 2020-09-20 20:41 | NUR ---
Afebrile, trach is intact and patent, suctioned with yellow secretions, gt feeding tolerating well, no vomiting noted. Remains on Levaquin via gt for fever, no adverse reactions noted. Turned and repositioned, kept clean and comfortable.
[2020-09-21] MEDS: LORATADINE 10 MG TABLET GT SCH (05:35)
[2020-09-21] MEDS: OMEPRAZOLE 20 MG CAPSULE.DR GT SCH (05:35)
[2020-09-21] MEDS: CHOLECALCIFEROL 1,000 UNIT TABLET GT SCH (05:35)
[2020-09-21 07:56] VITALS: BP 107/65
[2020-09-21] MEDS: [UNRECOGNIZED DRUG - OTHER] GT SCH ×2 (08:11→20:17)
[2020-09-21] MEDS: BACLOFEN 10 MG TABLET GT SCH ×2 (08:11→20:17)
[2020-09-21] MEDS: Z GUARD REMEDY PASTE 57 GM TUBE TOP SCH ×2 (08:12→20:18)
[2020-09-21] MEDS: HEPARIN SODIUM,PORCINE 5,000 UNITS/ML VIAL SQ SCH ×2 (08:12→20:18)
[2020-09-21] MEDS: [UNRECOGNIZED DRUG - OTHER] XX SCH ×2 (08:12→20:18)
[2020-09-21] MEDS: VITAMINS A AND D OINT TP SCH (08:12)
[2020-09-21] MEDS: HYDROGEN PEROXIDE 3% 118 ML BOTTLE TP SCH ×2 (09:00→21:00)
[2020-09-21] MEDS: levoFLOXacin 750 MG TABLET GT SCH (11:59)
[2020-09-21] MEDS: JEVITY 1.2 1000 ML LIQUID GT PRN (11:59)
[2020-09-21 12:52] LABS: BASOPHILS % (AUTO) 0.4 % (0.0-2.0); EOSINOPHILS # (AUTO) 0.1 K/uL (0.0-0.7); EOSINOPHILS % (AUTO) 1.7 % (0.0-7.0); HEMATOCRIT 42.2 % (36.7-47.1); HEMOGLOBIN 14.2 g/dL (12.5-16.3); LYMPHOCYTES # (AUTO) 2.2 K/uL (20.0-40.0); LYMPHOCYTES % (AUTO) 26.7 % (20.5-51.5); MEAN CORPUSCULAR HEMOGLOBIN 31.5 uug (23.8-33.4); MEAN CORPUSCULAR HGB CONC 34 g/dL (32.5-36.3); MEAN CORPUSCULAR VOLUME 93.8 fL (73.0-96.2); MONOCYTES # (AUTO) 1.1 K/uL (2.0-10.0); MONOCYTES % (AUTO) 13.5 % (0.0-11.0); NEUTROPHILS # (AUTO) 4.7 K/uL (1.8-8.9); NEUTROPHILS % (AUTO) 57.7 % (38.5-71.5); PLATELET COUNT (AUTO) 224 K/uL (152-348); WHITE BLOOD COUNT (AUTO) 8.1 K/uL (3.6-10.2)
[2020-09-21 20:12] VITALS: BP 114/62
[2020-09-21] MEDS: OMEGA-3 FATTY ACIDS/FISH OIL CAPSULE GT SCH (20:17)
[2020-09-22] MEDS: JEVITY 1.2 1000 ML LIQUID GT PRN ×3 (03:10→22:56)
[2020-09-22] MEDS: LORATADINE 10 MG TABLET GT SCH (05:51)
[2020-09-22] MEDS: CHOLECALCIFEROL 1,000 UNIT TABLET GT SCH (05:51)
[2020-09-22] MEDS: OMEPRAZOLE 20 MG CAPSULE.DR GT SCH (05:51)
[2020-09-22] MEDS: HYDROGEN PEROXIDE 3% 118 ML BOTTLE TP SCH ×2 (07:38→21:29)
[2020-09-22 07:40] VITALS: BP 96/54
[2020-09-22] MEDS: Z GUARD REMEDY PASTE 57 GM TUBE TOP SCH ×2 (08:24→20:20)
[2020-09-22] MEDS: BACLOFEN 10 MG TABLET GT SCH ×2 (08:24→20:20)
[2020-09-22] MEDS: [UNRECOGNIZED DRUG - OTHER] GT SCH ×2 (08:24→20:20)
[2020-09-22] MEDS: [UNRECOGNIZED DRUG - OTHER] XX SCH ×2 (08:24→20:20)
[2020-09-22] MEDS: VITAMINS A AND D OINT TP SCH (08:24)
[2020-09-22] MEDS: HEPARIN SODIUM,PORCINE 5,000 UNITS/ML VIAL SQ SCH ×2 (08:25→20:20)
[2020-09-22] MEDS: levoFLOXacin 750 MG TABLET GT SCH (11:07)
--- NOTE | 2020-09-22 18:18 | NUR ---
Resident continues on Levofloxacin 750mg tab via gt x 5 days for increased temp. No ASE noted. Tolerating ATB therapy well. Remains afebrile. No pain/discomfort noted. Kept Dry and clean. All needs anticipated and rendered. Will continue to monitor.
[2020-09-22] MEDS: OMEGA-3 FATTY ACIDS/FISH OIL CAPSULE GT SCH (20:20)
[2020-09-22 20:47] VITALS: BP 114/80
[2020-09-23] MEDS: LORATADINE 10 MG TABLET GT SCH (05:48)
[2020-09-23] MEDS: OMEPRAZOLE 20 MG CAPSULE.DR GT SCH (05:48)
[2020-09-23] MEDS: CHOLECALCIFEROL 1,000 UNIT TABLET GT SCH (05:49)
[2020-09-23 07:55] VITALS: BP 111/66
[2020-09-23] MEDS: HEPARIN SODIUM,PORCINE 5,000 UNITS/ML VIAL SQ SCH ×2 (08:21→21:00)
[2020-09-23] MEDS: BACLOFEN 10 MG TABLET GT SCH ×2 (08:21→21:16)
[2020-09-23] MEDS: [UNRECOGNIZED DRUG - OTHER] GT SCH ×2 (08:21→21:16)
[2020-09-23] MEDS: Z GUARD REMEDY PASTE 57 GM TUBE TOP SCH ×2 (08:22→21:16)
[2020-09-23] MEDS: VITAMINS A AND D OINT TP SCH (08:22)
[2020-09-23] MEDS: [UNRECOGNIZED DRUG - OTHER] XX SCH ×2 (08:22→21:17)
[2020-09-23] MEDS: HYDROGEN PEROXIDE 3% 118 ML BOTTLE TP SCH ×2 (09:24→19:04)
[2020-09-23] MEDS: levoFLOXacin 750 MG TABLET GT SCH (11:51)
--- NOTE | 2020-09-23 16:17 | NUR ---
Mother notified covid19 test will be done today, Mother requested to be called only results are positive.
[2020-09-23 20:02] VITALS: BP 116/72
[2020-09-23] MEDS: OMEGA-3 FATTY ACIDS/FISH OIL CAPSULE GT SCH (21:16)
[2020-09-24] MEDS: LORATADINE 10 MG TABLET GT SCH (05:59)
[2020-09-24] MEDS: CHOLECALCIFEROL 1,000 UNIT TABLET GT SCH (05:59)
[2020-09-24] MEDS: OMEPRAZOLE 20 MG CAPSULE.DR GT SCH (05:59)
[2020-09-24 07:35] VITALS: BP 101/63
[2020-09-24] MEDS: HEPARIN SODIUM,PORCINE 5,000 UNITS/ML VIAL SQ SCH ×2 (08:16→20:02)
[2020-09-24] MEDS: [UNRECOGNIZED DRUG - OTHER] XX SCH ×2 (08:17→20:02)
[2020-09-24] MEDS: BACLOFEN 10 MG TABLET GT SCH ×2 (08:17→20:01)
[2020-09-24] MEDS: Z GUARD REMEDY PASTE 57 GM TUBE TOP SCH ×2 (08:17→20:02)
[2020-09-24] MEDS: [UNRECOGNIZED DRUG - OTHER] GT SCH ×2 (08:17→20:01)
[2020-09-24] MEDS: VITAMINS A AND D OINT TP SCH (08:17)
[2020-09-24] MEDS: HYDROGEN PEROXIDE 3% 118 ML BOTTLE TP SCH ×2 (08:45→21:41)
[2020-09-24] MEDS: JEVITY 1.2 1000 ML LIQUID GT PRN (14:00)
[2020-09-24] MEDS: OMEGA-3 FATTY ACIDS/FISH OIL CAPSULE GT SCH (20:01)
[2020-09-24 20:22] VITALS: BP 110/67
[2020-09-25] MEDS: OMEPRAZOLE 20 MG CAPSULE.DR GT SCH (06:03)
[2020-09-25] MEDS: CHOLECALCIFEROL 1,000 UNIT TABLET GT SCH (06:03)
[2020-09-25] MEDS: LORATADINE 10 MG TABLET GT SCH (06:03)
[2020-09-25] MEDS: HYDROGEN PEROXIDE 3% 118 ML BOTTLE TP SCH ×2 (07:18→21:36)
[2020-09-25 07:45] VITALS: BP 106/62
[2020-09-25] MEDS: [UNRECOGNIZED DRUG - OTHER] GT SCH ×2 (08:27→21:22)
[2020-09-25] MEDS: BACLOFEN 10 MG TABLET GT SCH ×2 (08:27→21:22)
[2020-09-25] MEDS: HEPARIN SODIUM,PORCINE 5,000 UNITS/ML VIAL SQ SCH ×2 (08:28→21:35)
[2020-09-25] MEDS: [UNRECOGNIZED DRUG - OTHER] XX SCH ×2 (08:29→21:22)
[2020-09-25] MEDS: VITAMINS A AND D OINT TP SCH (08:29)
[2020-09-25] MEDS: Z GUARD REMEDY PASTE 57 GM TUBE TOP SCH ×2 (08:29→21:22)
[2020-09-25] MEDS: JEVITY 1.2 1000 ML LIQUID GT PRN (12:30)
--- NOTE | 2020-09-25 15:30 | NUR ---
VIDEO CHAT DONE WITH PT'S MOTHER.
[2020-09-25 20:03] VITALS: BP 131/78
[2020-09-25] MEDS: OMEGA-3 FATTY ACIDS/FISH OIL CAPSULE GT SCH (21:22)
[2020-09-26] MEDS: JEVITY 1.2 1000 ML LIQUID GT PRN (05:00)
[2020-09-26] MEDS: CHOLECALCIFEROL 1,000 UNIT TABLET GT SCH (05:48)
[2020-09-26] MEDS: LORATADINE 10 MG TABLET GT SCH (05:48)
[2020-09-26] MEDS: OMEPRAZOLE 20 MG CAPSULE.DR GT SCH (05:48)
[2020-09-26 07:49] VITALS: BP 111/79
[2020-09-26] MEDS: VITAMINS A AND D OINT TP SCH (08:30)
[2020-09-26] MEDS: Z GUARD REMEDY PASTE 57 GM TUBE TOP SCH ×2 (08:30→20:02)
[2020-09-26] MEDS: [UNRECOGNIZED DRUG - OTHER] GT SCH ×2 (08:30→20:02)
[2020-09-26] MEDS: BACLOFEN 10 MG TABLET GT SCH ×2 (08:30→20:02)
[2020-09-26] MEDS: HEPARIN SODIUM,PORCINE 5,000 UNITS/ML VIAL SQ SCH ×2 (08:31→21:00)
[2020-09-26] MEDS: [UNRECOGNIZED DRUG - OTHER] XX SCH ×2 (09:00→20:02)
[2020-09-26] MEDS: HYDROGEN PEROXIDE 3% 118 ML BOTTLE TP SCH ×2 (09:39→20:50)
--- NOTE | 2020-09-26 16:47 | NUR ---
SEEN BY KALA STRANGE AND DR. SANTA AND WITH NNO.
[2020-09-26 20:00] VITALS: BP 105/69
[2020-09-26] MEDS: OMEGA-3 FATTY ACIDS/FISH OIL CAPSULE GT SCH (20:02)
[2020-09-27] MEDS: JEVITY 1.2 1000 ML LIQUID GT PRN ×2 (00:30→17:28)
[2020-09-27] MEDS: LORATADINE 10 MG TABLET GT SCH (05:42)
[2020-09-27] MEDS: OMEPRAZOLE 20 MG CAPSULE.DR GT SCH (05:42)
[2020-09-27] MEDS: CHOLECALCIFEROL 1,000 UNIT TABLET GT SCH (05:42)
[2020-09-27 07:37] VITALS: BP 107/62
[2020-09-27] MEDS: [UNRECOGNIZED DRUG - OTHER] GT SCH ×2 (08:21→21:15)
[2020-09-27] MEDS: BACLOFEN 10 MG TABLET GT SCH ×2 (08:21→21:15)
[2020-09-27] MEDS: [UNRECOGNIZED DRUG - OTHER] XX SCH ×2 (08:22→21:00)
[2020-09-27] MEDS: VITAMINS A AND D OINT TP SCH (08:22)
[2020-09-27] MEDS: HEPARIN SODIUM,PORCINE 5,000 UNITS/ML VIAL SQ SCH ×2 (08:22→21:00)
[2020-09-27] MEDS: Z GUARD REMEDY PASTE 57 GM TUBE TOP SCH ×2 (08:22→21:15)
[2020-09-27] MEDS: HYDROGEN PEROXIDE 3% 118 ML BOTTLE TP SCH ×2 (09:00→21:57)
[2020-09-27 19:20] VITALS: BP 110/65
[2020-09-27] MEDS: OMEGA-3 FATTY ACIDS/FISH OIL CAPSULE GT SCH (21:15)
--- NOTE | 2020-09-28 02:00 | NUR ---
For COVID-19 testing as per [facility] requirement.
[2020-09-28] MEDS: CHOLECALCIFEROL 1,000 UNIT TABLET GT SCH (06:33)
[2020-09-28] MEDS: OMEPRAZOLE 20 MG CAPSULE.DR GT SCH (06:33)
[2020-09-28] MEDS: LORATADINE 10 MG TABLET GT SCH (06:33)
[2020-09-28] MEDS: HYDROGEN PEROXIDE 3% 118 ML BOTTLE TP SCH ×2 (07:15→21:00)
[2020-09-28] MEDS: [UNRECOGNIZED DRUG - OTHER] XX SCH ×2 (09:00→20:12)
--- NOTE | 2020-09-28 09:00 | NUR ---
PT'S MOTHER AWARE OF PT'S COVID 19 TEST FOR TODAY.
[2020-09-28] MEDS: BACLOFEN 10 MG TABLET GT SCH ×2 (09:38→20:11)
[2020-09-28] MEDS: [UNRECOGNIZED DRUG - OTHER] GT SCH ×2 (09:38→20:11)
[2020-09-28] MEDS: Z GUARD REMEDY PASTE 57 GM TUBE TOP SCH ×2 (09:39→20:12)
[2020-09-28] MEDS: HEPARIN SODIUM,PORCINE 5,000 UNITS/ML VIAL SQ SCH ×2 (09:39→21:18)
[2020-09-28] MEDS: VITAMINS A AND D OINT TP SCH (09:39)
[2020-09-28] MEDS: JEVITY 1.2 1000 ML LIQUID GT PRN (12:06)
[2020-09-28 19:25] VITALS: BP 127/58
[2020-09-28] MEDS: OMEGA-3 FATTY ACIDS/FISH OIL CAPSULE GT SCH (20:11)
[2020-09-29] MEDS: OMEPRAZOLE 20 MG CAPSULE.DR GT SCH (05:22)
[2020-09-29] MEDS: JEVITY 1.2 1000 ML LIQUID GT PRN (05:22)
[2020-09-29] MEDS: LORATADINE 10 MG TABLET GT SCH (05:22)
[2020-09-29] MEDS: CHOLECALCIFEROL 1,000 UNIT TABLET GT SCH (05:22)
[2020-09-29] MEDS: HYDROGEN PEROXIDE 3% 118 ML BOTTLE TP SCH ×2 (07:56→21:20)
[2020-09-29 07:57] VITALS: BP 106/83
[2020-09-29] MEDS: Z GUARD REMEDY PASTE 57 GM TUBE TOP SCH ×2 (08:43→21:42)
[2020-09-29] MEDS: [UNRECOGNIZED DRUG - OTHER] GT SCH ×2 (08:43→21:42)
[2020-09-29] MEDS: BACLOFEN 10 MG TABLET GT SCH ×2 (08:43→21:41)
[2020-09-29] MEDS: [UNRECOGNIZED DRUG - OTHER] XX SCH ×2 (08:44→21:42)
[2020-09-29] MEDS: VITAMINS A AND D OINT TP SCH (08:44)
[2020-09-29] MEDS: HEPARIN SODIUM,PORCINE 5,000 UNITS/ML VIAL SQ SCH ×2 (09:57→21:00)
--- NOTE | 2020-09-29 18:08 | NUR ---
MESSAGE LEFT TO PT'S MOTHER RE: NEGATIVE COVID 19 TEST.
[2020-09-29 19:25] VITALS: BP 127/58
[2020-09-29] MEDS: OMEGA-3 FATTY ACIDS/FISH OIL CAPSULE GT SCH (21:41)
[2020-09-30] MEDS: JEVITY 1.2 1000 ML LIQUID GT PRN (02:02)
[2020-09-30] MEDS: OMEPRAZOLE 20 MG CAPSULE.DR GT SCH (05:58)
[2020-09-30] MEDS: CHOLECALCIFEROL 1,000 UNIT TABLET GT SCH (05:58)
[2020-09-30] MEDS: LORATADINE 10 MG TABLET GT SCH (05:58)
[2020-09-30 07:35] VITALS: BP 102/50
[2020-09-30] MEDS: BACLOFEN 10 MG TABLET GT SCH ×2 (08:16→21:00)
[2020-09-30] MEDS: [UNRECOGNIZED DRUG - OTHER] GT SCH ×2 (08:16→21:00)
[2020-09-30] MEDS: Z GUARD REMEDY PASTE 57 GM TUBE TOP SCH ×2 (08:21→21:00)
[2020-09-30] MEDS: VITAMINS A AND D OINT TP SCH (08:21)
[2020-09-30] MEDS: [UNRECOGNIZED DRUG - OTHER] XX SCH ×2 (08:22→21:01)
[2020-09-30] MEDS: HYDROGEN PEROXIDE 3% 118 ML BOTTLE TP SCH ×2 (08:31→21:15)
[2020-09-30] MEDS: HEPARIN SODIUM,PORCINE 5,000 UNITS/ML VIAL SQ SCH ×2 (09:00→20:59)
--- NOTE | 2020-09-30 18:59 | NUR ---
Video call provided with pt. and family (mother). No complaints and issues brought up so far. Pt. stable at this time. Will continue to monitor.
[2020-09-30 20:09] VITALS: BP 113/65
[2020-09-30] MEDS: OMEGA-3 FATTY ACIDS/FISH OIL CAPSULE GT SCH (21:00)
[2020-09-30 22:30] VITALS: BP 113/65
[2020-10-01] MEDS: JEVITY 1.2 1000 ML LIQUID GT PRN (01:12)
[2020-10-01] MEDS: CHOLECALCIFEROL 1,000 UNIT TABLET GT SCH (05:48)
[2020-10-01] MEDS: OMEPRAZOLE 20 MG CAPSULE.DR GT SCH (05:48)
[2020-10-01] MEDS: LORATADINE 10 MG TABLET GT SCH (05:48)
[2020-10-01 07:27] VITALS: BP 114/62
[2020-10-01] MEDS: [UNRECOGNIZED DRUG - OTHER] GT SCH ×2 (09:00→20:57)
[2020-10-01] MEDS: HEPARIN SODIUM,PORCINE 5,000 UNITS/ML VIAL SQ SCH ×2 (09:00→20:57)
[2020-10-01] MEDS: BACLOFEN 10 MG TABLET GT SCH ×2 (09:00→20:57)
[2020-10-01] MEDS: Z GUARD REMEDY PASTE 57 GM TUBE TOP SCH ×2 (09:00→20:57)
[2020-10-01] MEDS: VITAMINS A AND D OINT TP SCH (09:00)
[2020-10-01] MEDS: HYDROGEN PEROXIDE 3% 118 ML BOTTLE TP SCH ×2 (09:00→21:05)
[2020-10-01] MEDS: [UNRECOGNIZED DRUG - OTHER] XX SCH ×2 (09:00→20:57)
[2020-10-01 20:00] VITALS: BP 105/69
[2020-10-01] MEDS: OMEGA-3 FATTY ACIDS/FISH OIL CAPSULE GT SCH (20:57)
[2020-10-02] MEDS: JEVITY 1.2 1000 ML LIQUID GT PRN (00:11)
[2020-10-02] MEDS: OMEPRAZOLE 20 MG CAPSULE.DR GT SCH (05:33)
[2020-10-02] MEDS: LORATADINE 10 MG TABLET GT SCH (05:33)
[2020-10-02] MEDS: CHOLECALCIFEROL 1,000 UNIT TABLET GT SCH (05:33)
[2020-10-02 07:24] VITALS: BP 115/63
[2020-10-02 07:28] VITALS: BP 115/63
[2020-10-02] MEDS: [UNRECOGNIZED DRUG - OTHER] GT SCH ×2 (08:33→20:39)
[2020-10-02] MEDS: [UNRECOGNIZED DRUG - OTHER] XX SCH ×2 (08:33→20:39)
[2020-10-02] MEDS: BACLOFEN 10 MG TABLET GT SCH ×2 (08:33→20:39)
[2020-10-02] MEDS: Z GUARD REMEDY PASTE 57 GM TUBE TOP SCH ×2 (08:33→20:39)
[2020-10-02] MEDS: VITAMINS A AND D OINT TP SCH (08:33)
[2020-10-02] MEDS: HEPARIN SODIUM,PORCINE 5,000 UNITS/ML VIAL SQ SCH ×2 (08:37→21:55)
[2020-10-02] MEDS: HYDROGEN PEROXIDE 3% 118 ML BOTTLE TP SCH ×2 (09:45→21:15)
[2020-10-02 20:00] VITALS: BP 104/68
[2020-10-02] MEDS: OMEGA-3 FATTY ACIDS/FISH OIL CAPSULE GT SCH (20:38)
[2020-10-03] MEDS: JEVITY 1.2 1000 ML LIQUID GT PRN ×2 (01:00→20:18)
[2020-10-03] MEDS: OMEPRAZOLE 20 MG CAPSULE.DR GT SCH (06:24)
[2020-10-03] MEDS: LORATADINE 10 MG TABLET GT SCH (06:24)
[2020-10-03] MEDS: CHOLECALCIFEROL 1,000 UNIT TABLET GT SCH (06:24)
[2020-10-03 07:38] VITALS: BP 106/67
[2020-10-03] MEDS: HYDROGEN PEROXIDE 3% 118 ML BOTTLE TP SCH ×2 (07:38→21:00)
[2020-10-03] MEDS: BACLOFEN 10 MG TABLET GT SCH ×2 (08:26→20:17)
[2020-10-03] MEDS: [UNRECOGNIZED DRUG - OTHER] GT SCH ×2 (08:26→20:17)
[2020-10-03] MEDS: [UNRECOGNIZED DRUG - OTHER] XX SCH ×2 (08:26→20:18)
[2020-10-03] MEDS: VITAMINS A AND D OINT TP SCH (08:26)
[2020-10-03] MEDS: Z GUARD REMEDY PASTE 57 GM TUBE TOP SCH ×2 (08:26→20:17)
[2020-10-03] MEDS: HEPARIN SODIUM,PORCINE 5,000 UNITS/ML VIAL SQ SCH ×2 (08:34→20:38)
--- NOTE | 2020-10-03 16:51 | NUR ---
Seen by Dr Diaz,no new orders.
[2020-10-03 20:00] VITALS: BP 108/76
[2020-10-03] MEDS: OMEGA-3 FATTY ACIDS/FISH OIL CAPSULE GT SCH (20:17)
[2020-10-04] MEDS: CHOLECALCIFEROL 1,000 UNIT TABLET GT SCH (05:44)
[2020-10-04] MEDS: LORATADINE 10 MG TABLET GT SCH (05:44)
[2020-10-04] MEDS: OMEPRAZOLE 20 MG CAPSULE.DR GT SCH (05:44)
[2020-10-04] MEDS: HYDROGEN PEROXIDE 3% 118 ML BOTTLE TP SCH ×2 (07:16→21:35)
[2020-10-04 07:39] VITALS: BP 118/70
[2020-10-04] MEDS: [UNRECOGNIZED DRUG - OTHER] GT SCH ×2 (08:19→20:50)
[2020-10-04] MEDS: BACLOFEN 10 MG TABLET GT SCH ×2 (08:19→20:50)
[2020-10-04] MEDS: Z GUARD REMEDY PASTE 57 GM TUBE TOP SCH ×2 (08:21→20:50)
[2020-10-04] MEDS: HEPARIN SODIUM,PORCINE 5,000 UNITS/ML VIAL SQ SCH ×2 (08:21→20:50)
[2020-10-04] MEDS: VITAMINS A AND D OINT TP SCH (08:21)
[2020-10-04] MEDS: [UNRECOGNIZED DRUG - OTHER] XX SCH ×2 (08:21→20:50)
[2020-10-04] MEDS: JEVITY 1.2 1000 ML LIQUID GT PRN (17:06)
[2020-10-04 20:01] VITALS: BP 115/69
[2020-10-04] MEDS: OMEGA-3 FATTY ACIDS/FISH OIL CAPSULE GT SCH (20:50)
[2020-10-05] MEDS: CHOLECALCIFEROL 1,000 UNIT TABLET GT SCH (05:35)
[2020-10-05] MEDS: LORATADINE 10 MG TABLET GT SCH (05:35)
[2020-10-05] MEDS: OMEPRAZOLE 20 MG CAPSULE.DR GT SCH (05:35)
[2020-10-05] MEDS: HYDROGEN PEROXIDE 3% 118 ML BOTTLE TP SCH ×2 (07:48→21:00)
[2020-10-05 07:53] VITALS: BP 113/71
[2020-10-05] MEDS: [UNRECOGNIZED DRUG - OTHER] GT SCH ×2 (08:21→20:46)
[2020-10-05] MEDS: BACLOFEN 10 MG TABLET GT SCH ×2 (08:21→20:46)
[2020-10-05] MEDS: HEPARIN SODIUM,PORCINE 5,000 UNITS/ML VIAL SQ SCH ×2 (08:22→21:03)
[2020-10-05] MEDS: Z GUARD REMEDY PASTE 57 GM TUBE TOP SCH ×2 (08:22→20:46)
[2020-10-05] MEDS: VITAMINS A AND D OINT TP SCH (08:23)
[2020-10-05] MEDS: [UNRECOGNIZED DRUG - OTHER] XX SCH ×2 (08:23→20:46)
[2020-10-05] MEDS: JEVITY 1.2 1000 ML LIQUID GT PRN (12:39)
--- NOTE | 2020-10-05 16:00 | NUR ---
Zoom video call provided for Pt with mom. No concerns/complaints addressed at this time.
--- NOTE | 2020-10-05 18:30 | NUR ---
New orders noted for Nizoral shampoo for dandruff ,Lizzette pt's mother notified regarding the new orders.
[2020-10-05 20:16] VITALS: BP 108/59
[2020-10-05] MEDS: OMEGA-3 FATTY ACIDS/FISH OIL CAPSULE GT SCH (20:46)
[2020-10-06] MEDS: CHOLECALCIFEROL 1,000 UNIT TABLET GT SCH (05:59)
[2020-10-06] MEDS: LORATADINE 10 MG TABLET GT SCH (05:59)
[2020-10-06] MEDS: OMEPRAZOLE 20 MG CAPSULE.DR GT SCH (05:59)
[2020-10-06] MEDS: HYDROGEN PEROXIDE 3% 118 ML BOTTLE TP SCH ×2 (07:27→19:41)
[2020-10-06 07:28] VITALS: BP 143/45
[2020-10-06] MEDS: BACLOFEN 10 MG TABLET GT SCH ×2 (09:06→20:49)
[2020-10-06] MEDS: [UNRECOGNIZED DRUG - OTHER] GT SCH ×2 (09:06→20:49)
[2020-10-06] MEDS: HEPARIN SODIUM,PORCINE 5,000 UNITS/ML VIAL SQ SCH ×2 (09:08→21:00)
[2020-10-06] MEDS: JEVITY 1.2 1000 ML LIQUID GT PRN (09:08)
[2020-10-06] MEDS: VITAMINS A AND D OINT TP SCH (09:08)
[2020-10-06] MEDS: Z GUARD REMEDY PASTE 57 GM TUBE TOP SCH ×2 (09:08→20:50)
[2020-10-06] MEDS: [UNRECOGNIZED DRUG - OTHER] XX SCH ×2 (09:08→20:50)
[2020-10-06 19:49] VITALS: BP 131/65
[2020-10-06] MEDS: OMEGA-3 FATTY ACIDS/FISH OIL CAPSULE GT SCH (20:49)
[2020-10-07] MEDS: OMEPRAZOLE 20 MG CAPSULE.DR GT SCH (06:15)
[2020-10-07] MEDS: CHOLECALCIFEROL 1,000 UNIT TABLET GT SCH (06:15)
[2020-10-07] MEDS: LORATADINE 10 MG TABLET GT SCH (06:15)
[2020-10-07] MEDS: JEVITY 1.2 1000 ML LIQUID GT PRN ×2 (06:59→23:07)
[2020-10-07 07:28] VITALS: BP 124/65
[2020-10-07] MEDS: BACLOFEN 10 MG TABLET GT SCH ×2 (08:11→21:01)
[2020-10-07] MEDS: [UNRECOGNIZED DRUG - OTHER] XX SCH ×2 (08:11→21:07)
[2020-10-07] MEDS: [UNRECOGNIZED DRUG - OTHER] GT SCH ×2 (08:11→21:01)
[2020-10-07] MEDS: Z GUARD REMEDY PASTE 57 GM TUBE TOP SCH ×2 (08:11→21:01)
[2020-10-07] MEDS: VITAMINS A AND D OINT TP SCH (08:11)
[2020-10-07] MEDS: HEPARIN SODIUM,PORCINE 5,000 UNITS/ML VIAL SQ SCH ×2 (08:11→21:00)
[2020-10-07] MEDS: HYDROGEN PEROXIDE 3% 118 ML BOTTLE TP SCH ×2 (09:09→21:31)
[2020-10-07 20:06] VITALS: BP 118/68
[2020-10-07] MEDS: OMEGA-3 FATTY ACIDS/FISH OIL CAPSULE GT SCH (21:00)
[2020-10-08] MEDS: CHOLECALCIFEROL 1,000 UNIT TABLET GT SCH (06:10)
[2020-10-08] MEDS: LORATADINE 10 MG TABLET GT SCH (06:10)
[2020-10-08] MEDS: OMEPRAZOLE 20 MG CAPSULE.DR GT SCH (06:10)
[2020-10-08 07:34] VITALS: BP 113/71
[2020-10-08] MEDS: HYDROGEN PEROXIDE 3% 118 ML BOTTLE TP SCH ×2 (07:51→21:00)
[2020-10-08] MEDS: HEPARIN SODIUM,PORCINE 5,000 UNITS/ML VIAL SQ SCH ×2 (08:19→20:38)
[2020-10-08] MEDS: Z GUARD REMEDY PASTE 57 GM TUBE TOP SCH ×2 (08:20→20:39)
[2020-10-08] MEDS: VITAMINS A AND D OINT TP SCH (08:20)
[2020-10-08] MEDS: BACLOFEN 10 MG TABLET GT SCH ×2 (08:20→20:37)
[2020-10-08] MEDS: [UNRECOGNIZED DRUG - OTHER] GT SCH ×2 (08:20→20:37)
[2020-10-08] MEDS: [UNRECOGNIZED DRUG - OTHER] XX SCH ×2 (08:20→20:39)
--- NOTE | 2020-10-08 13:16 | NUR ---
New orders noted for L and R groin rashes, for 21 days.
--- NOTE | 2020-10-08 16:25 | NUR ---
INTERDISCIPLINARY PLAN OF CARE CONFERENCE was held today. Patient's parents were not available to participate in the meeting today. Dr. Castro and the Interdisciplinary team reviewed the current plan of care in detail. RN reported on the patient's medical condition. No major changes in patient's condition were reported by RN or by any of the other disciplines. See RN IDT conference notes. See also all other disciplines IDT notes and physician's progress notes for additional details.
[2020-10-08] MEDS: JEVITY 1.2 1000 ML LIQUID GT PRN (19:06)
[2020-10-08] MEDS: OMEGA-3 FATTY ACIDS/FISH OIL CAPSULE GT SCH (20:37)
[2020-10-08] MEDS: TRIAMCINOLONE ACET 0.1% CREAM 15 GM TUBE TP SCH (21:49)
[2020-10-08 22:54] VITALS: BP 128/62
[2020-10-09] MEDS: CHOLECALCIFEROL 1,000 UNIT TABLET GT SCH (05:16)
[2020-10-09] MEDS: LORATADINE 10 MG TABLET GT SCH (05:16)
[2020-10-09] MEDS: OMEPRAZOLE 20 MG CAPSULE.DR GT SCH (05:16)
[2020-10-09 07:48] VITALS: BP 127/85
[2020-10-09] MEDS: BACLOFEN 10 MG TABLET GT SCH ×2 (08:20→21:25)
[2020-10-09] MEDS: [UNRECOGNIZED DRUG - OTHER] GT SCH ×2 (08:26→21:25)
[2020-10-09] MEDS: TRIAMCINOLONE ACET 0.1% CREAM 15 GM TUBE TP SCH ×2 (08:27→21:26)
[2020-10-09] MEDS: Z GUARD REMEDY PASTE 57 GM TUBE TOP SCH ×2 (08:27→21:26)
[2020-10-09] MEDS: KETOCONAZOLE 2% SHAMPOO 120 ML BOTTLE TP SCH (08:27)
[2020-10-09] MEDS: VITAMINS A AND D OINT TP SCH (08:27)
[2020-10-09] MEDS: NYSTATIN CREAM 30 GM TUBE TP SCH ×2 (08:27→21:26)
[2020-10-09] MEDS: [UNRECOGNIZED DRUG - OTHER] XX SCH ×2 (08:28→21:26)
[2020-10-09] MEDS: HEPARIN SODIUM,PORCINE 5,000 UNITS/ML VIAL SQ SCH ×2 (08:31→21:26)
[2020-10-09] MEDS: HYDROGEN PEROXIDE 3% 118 ML BOTTLE TP SCH ×2 (09:00→21:37)
--- NOTE | 2020-10-09 14:30 | NUR ---
SEEN BY DR. SANTA AND WITH NNO.
[2020-10-09 20:09] VITALS: BP 112/70
[2020-10-09 20:45] VITALS: BP 112/87
[2020-10-09] MEDS: OMEGA-3 FATTY ACIDS/FISH OIL CAPSULE GT SCH (21:25)
[2020-10-10] MEDS: OMEPRAZOLE 20 MG CAPSULE.DR GT SCH (06:12)
[2020-10-10] MEDS: LORATADINE 10 MG TABLET GT SCH (06:12)
[2020-10-10] MEDS: CHOLECALCIFEROL 1,000 UNIT TABLET GT SCH (06:12)
[2020-10-10 07:53] VITALS: BP 122/65
[2020-10-10] MEDS: [UNRECOGNIZED DRUG - OTHER] GT SCH ×2 (08:13→20:19)
[2020-10-10] MEDS: BACLOFEN 10 MG TABLET GT SCH ×2 (08:13→20:19)
[2020-10-10] MEDS: Z GUARD REMEDY PASTE 57 GM TUBE TOP SCH ×2 (08:13→20:19)
[2020-10-10] MEDS: VITAMINS A AND D OINT TP SCH (08:14)
[2020-10-10] MEDS: HEPARIN SODIUM,PORCINE 5,000 UNITS/ML VIAL SQ SCH ×2 (08:14→21:56)
[2020-10-10] MEDS: TRIAMCINOLONE ACET 0.1% CREAM 15 GM TUBE TP SCH ×2 (08:15→20:19)
[2020-10-10] MEDS: NYSTATIN CREAM 30 GM TUBE TP SCH ×2 (08:15→20:19)
[2020-10-10] MEDS: HYDROGEN PEROXIDE 3% 118 ML BOTTLE TP SCH ×2 (09:00→21:05)
[2020-10-10] MEDS: [UNRECOGNIZED DRUG - OTHER] XX SCH ×2 (09:00→20:19)
--- NOTE | 2020-10-10 12:23 | NUR ---
Spoke with Pt's father Daniel Peralta. At this point verbal consent NOT given by Daniel Peralta for patient to receive COVID 19 Vaccine. Daniel Peralta states that he will discuss with regarding COVID 19 vaccination.
[2020-10-10] MEDS: JEVITY 1.2 1000 ML LIQUID GT PRN (12:28)
[2020-10-10 20:07] VITALS: BP 120/57
[2020-10-10] MEDS: OMEGA-3 FATTY ACIDS/FISH OIL CAPSULE GT SCH (20:19)
[2020-10-11] MEDS: CHOLECALCIFEROL 1,000 UNIT TABLET GT SCH (06:01)
[2020-10-11] MEDS: JEVITY 1.2 1000 ML LIQUID GT PRN (06:01)
[2020-10-11] MEDS: OMEPRAZOLE 20 MG CAPSULE.DR GT SCH (06:01)
[2020-10-11] MEDS: LORATADINE 10 MG TABLET GT SCH (06:01)
[2020-10-11 07:54] VITALS: BP 102/48
[2020-10-11] MEDS: HYDROGEN PEROXIDE 3% 118 ML BOTTLE TP SCH ×2 (08:57→21:36)
[2020-10-11] MEDS: [UNRECOGNIZED DRUG - OTHER] GT SCH ×2 (09:05→21:08)
[2020-10-11] MEDS: BACLOFEN 10 MG TABLET GT SCH ×2 (09:05→21:08)
[2020-10-11] MEDS: Z GUARD REMEDY PASTE 57 GM TUBE TOP SCH ×2 (09:05→21:10)
[2020-10-11] MEDS: TRIAMCINOLONE ACET 0.1% CREAM 15 GM TUBE TP SCH ×2 (09:06→21:10)
[2020-10-11] MEDS: VITAMINS A AND D OINT TP SCH (09:06)
[2020-10-11] MEDS: HEPARIN SODIUM,PORCINE 5,000 UNITS/ML VIAL SQ SCH ×2 (09:06→21:08)
[2020-10-11] MEDS: NYSTATIN CREAM 30 GM TUBE TP SCH ×2 (09:06→21:10)
[2020-10-11] MEDS: [UNRECOGNIZED DRUG - OTHER] XX SCH ×2 (09:06→21:10)
--- NOTE | 2020-10-11 11:30 | NUR ---
SEEN ANDAXAMINED BY DR. SANTA AND WITH NNO.
--- NOTE | 2020-10-11 16:00 | NUR ---
Video chat done with pt's parents.
[2020-10-11 20:40] VITALS: BP 116/87
[2020-10-11] MEDS: OMEGA-3 FATTY ACIDS/FISH OIL CAPSULE GT SCH (21:07)
[2020-10-12] MEDS: JEVITY 1.2 1000 ML LIQUID GT PRN (04:46)
[2020-10-12] MEDS: CHOLECALCIFEROL 1,000 UNIT TABLET GT SCH (05:20)
[2020-10-12] MEDS: OMEPRAZOLE 20 MG CAPSULE.DR GT SCH (05:20)
[2020-10-12] MEDS: LORATADINE 10 MG TABLET GT SCH (05:20)
[2020-10-12] MEDS: HYDROGEN PEROXIDE 3% 118 ML BOTTLE TP SCH ×2 (07:38→21:09)
[2020-10-12 07:53] VITALS: BP 120/67
[2020-10-12] MEDS: [UNRECOGNIZED DRUG - OTHER] GT SCH ×2 (08:23→20:38)
[2020-10-12] MEDS: BACLOFEN 10 MG TABLET GT SCH ×2 (08:23→20:35)
[2020-10-12] MEDS: HEPARIN SODIUM,PORCINE 5,000 UNITS/ML VIAL SQ SCH ×2 (08:24→20:42)
[2020-10-12] MEDS: TRIAMCINOLONE ACET 0.1% CREAM 15 GM TUBE TP SCH ×2 (08:25→20:44)
[2020-10-12] MEDS: KETOCONAZOLE 2% SHAMPOO 120 ML BOTTLE TP SCH (08:25)
[2020-10-12] MEDS: NYSTATIN CREAM 30 GM TUBE TP SCH ×2 (08:25→20:44)
[2020-10-12] MEDS: VITAMINS A AND D OINT TP SCH (08:25)
[2020-10-12] MEDS: Z GUARD REMEDY PASTE 57 GM TUBE TOP SCH ×2 (08:25→20:44)
[2020-10-12] MEDS: [UNRECOGNIZED DRUG - OTHER] XX SCH ×2 (08:26→20:45)
--- NOTE | 2020-10-12 16:41 | NUR ---
PT'S MOTHER ZHANG GARCIA WAS CALLED AND MESSAGE LEFT RE: NEGATIVE COVID 19 TEST AND ALSO RE: COVID 19 VACCINE CONSENT REQUIRED.
[2020-10-12 19:53] VITALS: BP 117/61
[2020-10-12] MEDS: OMEGA-3 FATTY ACIDS/FISH OIL CAPSULE GT SCH (20:35)
[2020-10-13] MEDS: JEVITY 1.2 1000 ML LIQUID GT PRN ×2 (01:05→23:39)
[2020-10-13] MEDS: LORATADINE 10 MG TABLET GT SCH (06:05)
[2020-10-13] MEDS: CHOLECALCIFEROL 1,000 UNIT TABLET GT SCH (06:05)
[2020-10-13] MEDS: OMEPRAZOLE 20 MG CAPSULE.DR GT SCH (06:05)
[2020-10-13 07:46] VITALS: BP 120/57
[2020-10-13] MEDS: [UNRECOGNIZED DRUG - OTHER] GT SCH ×2 (08:08→20:45)
[2020-10-13] MEDS: BACLOFEN 10 MG TABLET GT SCH ×2 (08:08→20:45)
[2020-10-13] MEDS: VITAMINS A AND D OINT TP SCH (08:09)
[2020-10-13] MEDS: TRIAMCINOLONE ACET 0.1% CREAM 15 GM TUBE TP SCH ×2 (08:09→20:46)
[2020-10-13] MEDS: [UNRECOGNIZED DRUG - OTHER] XX SCH ×2 (08:09→20:46)
[2020-10-13] MEDS: Z GUARD REMEDY PASTE 57 GM TUBE TOP SCH ×2 (08:09→20:45)
[2020-10-13] MEDS: NYSTATIN CREAM 30 GM TUBE TP SCH ×2 (08:09→20:46)
[2020-10-13] MEDS: HEPARIN SODIUM,PORCINE 5,000 UNITS/ML VIAL SQ SCH ×2 (09:02→20:56)
[2020-10-13] MEDS: HYDROGEN PEROXIDE 3% 118 ML BOTTLE TP SCH ×2 (09:20→20:34)
[2020-10-13 20:44] VITALS: BP 101/58
[2020-10-13] MEDS: OMEGA-3 FATTY ACIDS/FISH OIL CAPSULE GT SCH (20:45)
[2020-10-14] MEDS: LORATADINE 10 MG TABLET GT SCH (05:07)
[2020-10-14] MEDS: CHOLECALCIFEROL 1,000 UNIT TABLET GT SCH (05:07)
[2020-10-14] MEDS: OMEPRAZOLE 20 MG CAPSULE.DR GT SCH (05:07)
[2020-10-14] MEDS: HYDROGEN PEROXIDE 3% 118 ML BOTTLE TP SCH ×2 (07:15→21:51)
[2020-10-14 07:40] VITALS: BP 119/56
[2020-10-14] MEDS: BACLOFEN 10 MG TABLET GT SCH ×2 (08:31→20:20)
[2020-10-14] MEDS: [UNRECOGNIZED DRUG - OTHER] GT SCH ×2 (08:31→20:21)
[2020-10-14] MEDS: NYSTATIN CREAM 30 GM TUBE TP SCH ×2 (08:33→20:21)
[2020-10-14] MEDS: HEPARIN SODIUM,PORCINE 5,000 UNITS/ML VIAL SQ SCH ×2 (08:33→20:20)
[2020-10-14] MEDS: Z GUARD REMEDY PASTE 57 GM TUBE TOP SCH ×2 (08:33→20:21)
[2020-10-14] MEDS: TRIAMCINOLONE ACET 0.1% CREAM 15 GM TUBE TP SCH ×2 (08:33→20:21)
[2020-10-14] MEDS: VITAMINS A AND D OINT TP SCH (08:34)
[2020-10-14] MEDS: [UNRECOGNIZED DRUG - OTHER] XX SCH ×2 (08:34→20:21)
--- NOTE | 2020-10-14 09:58 | NUR ---
Spoke with Lizzette Peralta, Pt's mother. Consent NOT given by Lizzette Peralta for COVID 19 vaccine for Pt.
[2020-10-14 20:02] VITALS: BP 113/55
[2020-10-14] MEDS: OMEGA-3 FATTY ACIDS/FISH OIL CAPSULE GT SCH (20:20)
[2020-10-14] MEDS: JEVITY 1.2 1000 ML LIQUID GT PRN (20:33)
[2020-10-15] MEDS: LORATADINE 10 MG TABLET GT SCH (06:03)
[2020-10-15] MEDS: CHOLECALCIFEROL 1,000 UNIT TABLET GT SCH (06:03)
[2020-10-15] MEDS: OMEPRAZOLE 20 MG CAPSULE.DR GT SCH (06:03)
[2020-10-15] MEDS: HYDROGEN PEROXIDE 3% 118 ML BOTTLE TP SCH ×2 (07:29→21:15)
[2020-10-15 07:35] VITALS: BP 106/55
[2020-10-15] MEDS: BACLOFEN 10 MG TABLET GT SCH ×2 (08:40→20:24)
[2020-10-15] MEDS: TRIAMCINOLONE ACET 0.1% CREAM 15 GM TUBE TP SCH ×2 (08:41→20:24)
[2020-10-15] MEDS: Z GUARD REMEDY PASTE 57 GM TUBE TOP SCH ×2 (08:41→20:24)
[2020-10-15] MEDS: [UNRECOGNIZED DRUG - OTHER] GT SCH ×2 (08:41→20:24)
[2020-10-15] MEDS: [UNRECOGNIZED DRUG - OTHER] XX SCH ×2 (08:42→20:24)
[2020-10-15] MEDS: NYSTATIN CREAM 30 GM TUBE TP SCH ×2 (08:42→20:24)
[2020-10-15] MEDS: VITAMINS A AND D OINT TP SCH (08:42)
[2020-10-15] MEDS: HEPARIN SODIUM,PORCINE 5,000 UNITS/ML VIAL SQ SCH ×2 (08:44→20:21)
[2020-10-15] MEDS: JEVITY 1.2 1000 ML LIQUID GT PRN (17:20)
[2020-10-15 20:22] VITALS: BP 107/61
[2020-10-15] MEDS: OMEGA-3 FATTY ACIDS/FISH OIL CAPSULE GT SCH (20:24)
[2020-10-16] MEDS: OMEPRAZOLE 20 MG CAPSULE.DR GT SCH (06:03)
[2020-10-16] MEDS: LORATADINE 10 MG TABLET GT SCH (06:03)
[2020-10-16] MEDS: CHOLECALCIFEROL 1,000 UNIT TABLET GT SCH (06:03)
[2020-10-16 07:40] VITALS: BP 131/81
[2020-10-16] MEDS: BACLOFEN 10 MG TABLET GT SCH ×2 (08:13→21:20)
[2020-10-16] MEDS: [UNRECOGNIZED DRUG - OTHER] GT SCH ×2 (08:13→21:20)
[2020-10-16] MEDS: HEPARIN SODIUM,PORCINE 5,000 UNITS/ML VIAL SQ SCH ×2 (08:14→21:00)
[2020-10-16] MEDS: NYSTATIN CREAM 30 GM TUBE TP SCH ×2 (08:15→21:20)
[2020-10-16] MEDS: TRIAMCINOLONE ACET 0.1% CREAM 15 GM TUBE TP SCH ×2 (08:15→21:20)
[2020-10-16] MEDS: Z GUARD REMEDY PASTE 57 GM TUBE TOP SCH ×2 (08:15→21:20)
[2020-10-16] MEDS: VITAMINS A AND D OINT TP SCH (08:16)
[2020-10-16] MEDS: KETOCONAZOLE 2% SHAMPOO 120 ML BOTTLE TP SCH (08:16)
[2020-10-16] MEDS: [UNRECOGNIZED DRUG - OTHER] XX SCH ×2 (08:16→21:20)
[2020-10-16] MEDS: HYDROGEN PEROXIDE 3% 118 ML BOTTLE TP SCH ×2 (10:06→21:15)
--- NOTE | 2020-10-16 10:44 | NUR ---
video chat done with Lizzette wise's mother, she was notified of focus factor running low.
[2020-10-16] MEDS: JEVITY 1.2 1000 ML LIQUID GT PRN (12:39)
[2020-10-16 20:00] VITALS: BP 119/75
[2020-10-16] MEDS: OMEGA-3 FATTY ACIDS/FISH OIL CAPSULE GT SCH (21:20)
[~2020-10-17] VITALS: Ht 167.6 cm; Wt 61.2 kg
[2020-10-17] MEDS: OMEPRAZOLE 20 MG CAPSULE.DR GT SCH (06:53)
[2020-10-17] MEDS: CHOLECALCIFEROL 1,000 UNIT TABLET GT SCH (06:53)
[2020-10-17] MEDS: LORATADINE 10 MG TABLET GT SCH (06:53)
[2020-10-17] MEDS: JEVITY 1.2 1000 ML LIQUID GT PRN (07:40)
[2020-10-17 08:00] VITALS: BP 107/77
[2020-10-17] MEDS: BACLOFEN 10 MG TABLET GT SCH ×2 (08:30→21:04)
[2020-10-17] MEDS: [UNRECOGNIZED DRUG - OTHER] GT SCH ×2 (08:31→21:04)
[2020-10-17] MEDS: HEPARIN SODIUM,PORCINE 5,000 UNITS/ML VIAL SQ SCH ×2 (08:33→21:08)
[2020-10-17] MEDS: NYSTATIN CREAM 30 GM TUBE TP SCH ×2 (08:36→21:04)
[2020-10-17] MEDS: Z GUARD REMEDY PASTE 57 GM TUBE TOP SCH ×2 (08:36→21:04)
[2020-10-17] MEDS: TRIAMCINOLONE ACET 0.1% CREAM 15 GM TUBE TP SCH ×2 (08:36→21:04)
[2020-10-17] MEDS: VITAMINS A AND D OINT TP SCH (08:36)
[2020-10-17] MEDS: [UNRECOGNIZED DRUG - OTHER] XX SCH ×2 (08:37→21:04)
[2020-10-17] MEDS: HYDROGEN PEROXIDE 3% 118 ML BOTTLE TP SCH ×2 (09:00→18:37)
[2020-10-17 20:17] VITALS: BP 107/69
[2020-10-17] MEDS: OMEGA-3 FATTY ACIDS/FISH OIL CAPSULE GT SCH (21:04)
[~2020-10-17 23:59] MED LIST changes: +DIATR MEGLU/DIATRIZOATE SODIUM 30 ML BOTTLE ONE; +DIATR MEGLU/DIATRIZOATE SODIUM 30 ML BOTTLE PO ONE; +HYDR237S13 TP; +HYDROCORTISONE 2.5% CREAM 20 GM TUBE TOP PRN; +IV NS 1000 ML 1,000 ML IV ONE; +LACT-209 GT; +LORA10TA7 PO; +TUBERCULIN,PURIF.PROT.DERIV. 5 TU/0.1 ML TEST ID ONE; +VITAMIN A&D OINT TP; +Z GUARD REMEDY PASTE 57 GM TUBE TOP PRN; +Z GUARD REMEDY PASTE TP
[2020-10-18] MEDS: JEVITY 1.2 1000 ML LIQUID GT PRN ×3 (01:48→18:21)
[2020-10-18] MEDS: OMEPRAZOLE 20 MG CAPSULE.DR GT SCH (05:27)
[2020-10-18] MEDS: LORATADINE 10 MG TABLET GT SCH (05:27)
[2020-10-18] MEDS: CHOLECALCIFEROL 1,000 UNIT TABLET GT SCH (05:27)
[2020-10-18 07:52] VITALS: BP 108/58
[2020-10-18] MEDS: [UNRECOGNIZED DRUG - OTHER] GT SCH ×2 (08:11→20:16)
[2020-10-18] MEDS: TRIAMCINOLONE ACET 0.1% CREAM 15 GM TUBE TP SCH ×2 (08:11→20:16)
[2020-10-18] MEDS: NYSTATIN CREAM 30 GM TUBE TP SCH ×2 (08:11→20:16)
[2020-10-18] MEDS: Z GUARD REMEDY PASTE 57 GM TUBE TOP SCH ×2 (08:11→20:16)
[2020-10-18] MEDS: BACLOFEN 10 MG TABLET GT SCH ×2 (08:11→20:16)
[2020-10-18] MEDS: VITAMINS A AND D OINT TP SCH (08:12)
[2020-10-18] MEDS: HEPARIN SODIUM,PORCINE 5,000 UNITS/ML VIAL SQ SCH ×2 (08:12→20:17)
[2020-10-18] MEDS: [UNRECOGNIZED DRUG - OTHER] XX SCH ×2 (08:12→20:16)
[2020-10-18] MEDS: HYDROGEN PEROXIDE 3% 118 ML BOTTLE TP SCH ×2 (09:00→21:48)
[2020-10-18 19:20] VITALS: BP 106/68
[2020-10-18] MEDS: OMEGA-3 FATTY ACIDS/FISH OIL CAPSULE GT SCH (20:16)
[2020-10-19] MEDS: OMEPRAZOLE 20 MG CAPSULE.DR GT SCH (05:26)
[2020-10-19] MEDS: CHOLECALCIFEROL 1,000 UNIT TABLET GT SCH (05:26)
[2020-10-19] MEDS: LORATADINE 10 MG TABLET GT SCH (05:26)
[2020-10-19 08:00] VITALS: BP 108/40
[2020-10-19] MEDS: BACLOFEN 10 MG TABLET GT SCH ×2 (08:21→20:20)
[2020-10-19] MEDS: [UNRECOGNIZED DRUG - OTHER] GT SCH ×2 (08:21→20:20)
[2020-10-19] MEDS: HEPARIN SODIUM,PORCINE 5,000 UNITS/ML VIAL SQ SCH ×2 (08:27→20:21)
[2020-10-19] MEDS: Z GUARD REMEDY PASTE 57 GM TUBE TOP SCH ×2 (08:27→20:21)
[2020-10-19] MEDS: TRIAMCINOLONE ACET 0.1% CREAM 15 GM TUBE TP SCH ×2 (08:27→20:21)
[2020-10-19] MEDS: [UNRECOGNIZED DRUG - OTHER] XX SCH ×2 (08:28→20:21)
[2020-10-19] MEDS: KETOCONAZOLE 2% SHAMPOO 120 ML BOTTLE TP SCH (08:28)
[2020-10-19] MEDS: VITAMINS A AND D OINT TP SCH (08:28)
[2020-10-19] MEDS: NYSTATIN CREAM 30 GM TUBE TP SCH ×2 (08:28→20:21)
[2020-10-19] MEDS: HYDROGEN PEROXIDE 3% 118 ML BOTTLE TP SCH ×2 (09:00→21:00)
[2020-10-19] MEDS: JEVITY 1.2 1000 ML LIQUID GT PRN ×2 (11:33→23:24)
[2020-10-19 19:25] VITALS: BP 118/64
[2020-10-19] MEDS: OMEGA-3 FATTY ACIDS/FISH OIL CAPSULE GT SCH (20:20)
[2020-10-20] MEDS: CHOLECALCIFEROL 1,000 UNIT TABLET GT SCH (05:44)
[2020-10-20] MEDS: OMEPRAZOLE 20 MG CAPSULE.DR GT SCH (05:44)
[2020-10-20] MEDS: LORATADINE 10 MG TABLET GT SCH (05:44)
[2020-10-20 07:49] VITALS: BP 134/45
[2020-10-20] MEDS: [UNRECOGNIZED DRUG - OTHER] GT SCH ×2 (08:24→20:08)
[2020-10-20] MEDS: BACLOFEN 10 MG TABLET GT SCH ×2 (08:24→20:08)
[2020-10-20] MEDS: Z GUARD REMEDY PASTE 57 GM TUBE TOP SCH ×2 (08:25→20:08)
[2020-10-20] MEDS: VITAMINS A AND D OINT TP SCH (08:25)
[2020-10-20] MEDS: TRIAMCINOLONE ACET 0.1% CREAM 15 GM TUBE TP SCH ×2 (08:25→20:08)
[2020-10-20] MEDS: NYSTATIN CREAM 30 GM TUBE TP SCH ×2 (08:25→20:08)
[2020-10-20] MEDS: HEPARIN SODIUM,PORCINE 5,000 UNITS/ML VIAL SQ SCH ×2 (08:25→20:11)
[2020-10-20] MEDS: [UNRECOGNIZED DRUG - OTHER] XX SCH ×2 (08:25→20:08)
[2020-10-20] MEDS: HYDROGEN PEROXIDE 3% 118 ML BOTTLE TP SCH ×2 (09:00→20:47)
--- NOTE | 2020-10-20 17:50 | NUR ---
Seen and examined by Dr Diaz,no new orders noted.
[2020-10-20] MEDS: OMEGA-3 FATTY ACIDS/FISH OIL CAPSULE GT SCH (20:08)
[2020-10-20 20:45] VITALS: BP 113/73
[2020-10-20] MEDS: JEVITY 1.2 1000 ML LIQUID GT PRN (22:51)
[2020-10-21] MEDS: CHOLECALCIFEROL 1,000 UNIT TABLET GT SCH (05:45)
[2020-10-21] MEDS: OMEPRAZOLE 20 MG CAPSULE.DR GT SCH (05:45)
[2020-10-21] MEDS: LORATADINE 10 MG TABLET GT SCH (05:45)
[2020-10-21 07:36] VITALS: BP 117/67
== END | disposition still patient (30) | DRG 189 ==
LOC: SA 10-18
PROVIDERS: ADMIT Internal Medicine; ATTEND Internal Medicine
DX: J96.10 Chronic respiratory failure, unspecified whether with hypoxia or hypercapnia (principal); G93.1 Anoxic brain damage, not elsewhere classified; G91.2 (Idiopathic) normal pressure hydrocephalus; Z93.0 Tracheostomy status; R13.10 Dysphagia, unspecified; Z93.1 Gastrostomy status; Z98.2 Presence of cerebrospinal fluid drainage device; E78.5 Hyperlipidemia, unspecified; K21.9 Gastro-esophageal reflux disease without esophagitis; E78.1 Pure hyperglyceridemia
CPT/HCPCS: 36415; 70030-TC; 71045; 74018; 82652; 83605; 84443; 85025; 86580; 87040; 87070; 87086; 87400; 94640; 94664; A4663; C1758; J1644; J2185; J3490; J7030; Q9963; U0003

== ENCOUNTER 2022-08-20 09:37 | Outpatient (CLI) | payer MEDICARE, OTHER ==
[~2022-08-20 09:37] MED LIST changes: -DIATR MEGLU/DIATRIZOATE SODIUM 30 ML BOTTLE ONE; -DIATR MEGLU/DIATRIZOATE SODIUM 30 ML BOTTLE PO ONE; -HYDROCORTISONE 2.5% CREAM 20 GM TUBE TOP PRN; -IV NS 1000 ML 1,000 ML IV ONE; -TUBERCULIN,PURIF.PROT.DERIV. 5 TU/0.1 ML TEST ID ONE; -Z GUARD REMEDY PASTE 57 GM TUBE TOP PRN; -[UNRECOGNIZED DRUG - OTHER] GT
== END 2022-08-20 23:59 | disposition home or self-care (01) ==
LOC: CT 09:37
PROVIDERS: ATTEND Internal Medicine
DX: K43.9 Ventral hernia without obstruction or gangrene (principal); K80.20 Calculus of gallbladder without cholecystitis without obstruction; N20.0 Calculus of kidney; I70.0 Atherosclerosis of aorta; J98.11 Atelectasis; M47.816 Spondylosis without myelopathy or radiculopathy, lumbar region; Z98.2 Presence of cerebrospinal fluid drainage device

== ENCOUNTER 2022-10-18 | Inpatient (IN) | payer MEDICARE, OTHER ==
[~2022-10-18] MED LIST changes: -HEPA500014 IJ; +HEPA500014 SUBCUT; +LORA10TA7 GT; -LORA10TA7 PO
[2022-10-18] MEDS ORDERED: DOCU-141 GT (23:54)
[2022-10-18] MEDS ORDERED: KETO15CR2 TP (23:54)
[2022-10-19] MEDS ORDERED: [UNRECOGNIZED DRUG - CODE] TP (05:51)
[2022-10-19] MEDS ORDERED: FOCUS FACTOR GT (05:51)
[2022-10-20] MEDS: BACLOFEN 10 MG TABLET GT SCH (09:00)
[2022-10-20] MEDS: REMEDY ESSENTIAL ZINC PASTE 113 GM TOP SCH (09:00)
[2022-10-20] MEDS: DOCUSATE SODIUM 100 MG/10 ML LIQUID UDC GT SCH (09:00)
[2022-10-20] MEDS: HEPARIN SODIUM,PORCINE 5,000 UNITS/ML VIAL SQ SCH (09:00)
[2022-10-20] MEDS ORDERED: ALBUTEROL SULFATE 2.5 MG/3 ML NEBU NEB PRN (09:30)
[2022-10-20] MEDS ORDERED: HYDROGEN PEROXIDE 3% 118 ML BOTTLE TP PRN (09:30)
[2022-10-20] MEDS ORDERED: REMEDY ESSENTIAL ZINC PASTE 113 GM TOP PRN (09:30)
[2022-10-20] MEDS ORDERED: ACETAMINOPHEN 650 MG/20 ML UDC- SA PATIENTS-FEVER ONLY GT PRN (09:30)
[2022-10-21] MEDS ORDERED: OMEPRAZOLE 20 MG CAPSULE.DR GT SCH (06:00)
[2022-10-24] MEDS: MEROPENEM 1 G in IV NORMAL SALINE 100 ML IV SCH (18:50)
[2022-10-24 19:16] VITALS: TEMP 98.5
[2022-10-24] MEDS ORDERED: ONDANSETRON HCL 4 MG/5 ML UDC ORAL SOL GT PRN (19:30)
[2022-10-24] MEDS ORDERED: IPRATROPIUM/ALBUTEROL SULFATE 14.7 GM INHALER INH PRN (19:45)
[2022-10-24 20:00] VITALS: TEMP 98.4
[2022-10-24] MEDS: DOCUSATE SODIUM 100 MG/10 ML LIQUID UDC GT SCH (21:00)
[2022-10-24] MEDS: OMEGA-3 FATTY ACIDS/FISH OIL CAPSULE GT SCH (21:00)
[2022-10-24] MEDS: REMEDY ESSENTIAL ZINC PASTE 113 GM TOP SCH (21:00)
[2022-10-24] MEDS: HEPARIN SODIUM,PORCINE 5,000 UNITS/ML VIAL SQ SCH (21:00)
[2022-10-24 21:05] VITALS: O2SAT 99
[2022-10-24] MEDS: HYDROGEN PEROXIDE 3% 118 ML BOTTLE TP SCH (21:51)
[2022-10-25] VITALS: TEMP 98.2
[2022-10-25] MEDS: NORMAL SALINE FLUSH 10 ML DISP.SYRIN IV SCH ×3 (02:35→21:00)
[2022-10-25] MEDS: MEROPENEM 1 G in IV NORMAL SALINE 100 ML IV SCH ×3 (02:35→18:33)
[2022-10-25 04:00] VITALS: TEMP 98.8
[2022-10-25] MEDS: PANTOPRAZOLE ORAL SUSPENSION 40 MG SUSPDR.PKT GT SCH (06:30)
[2022-10-25] MEDS: LORATADINE 10 MG TABLET GT SCH (06:30)
[2022-10-25] MEDS: CHOLECALCIFEROL 1,000 UNIT TABLET GT SCH (06:30)
[2022-10-25 08:00] VITALS: TEMP 98.6
[2022-10-25 09:00] VITALS: O2SAT 99
[2022-10-25] MEDS: ZINC OXIDE OINT 30 GM TUBE TP SCH ×2 (09:00→21:00)
[2022-10-25] MEDS: HEPARIN SODIUM,PORCINE 5,000 UNITS/ML VIAL SQ SCH ×2 (09:00→21:00)
[2022-10-25] MEDS: HYDROGEN PEROXIDE 3% 118 ML BOTTLE TP SCH ×2 (09:00→21:00)
[2022-10-25] MEDS: BACLOFEN 10 MG TABLET GT SCH ×3 (09:14→17:00)
[2022-10-25] MEDS: DOCUSATE SODIUM 100 MG/10 ML LIQUID UDC GT SCH ×2 (09:14→21:00)
[2022-10-25] MEDS: REMEDY ESSENTIAL ZINC PASTE 113 GM TOP SCH ×2 (09:15→21:00)
[2022-10-25 20:00] VITALS: TEMP 98.6
[2022-10-25] MEDS: OMEGA-3 FATTY ACIDS/FISH OIL CAPSULE GT SCH (21:00)
[2022-10-26] MEDS: MEROPENEM 1 G in IV NORMAL SALINE 100 ML IV SCH ×3 (02:23→19:14)
[2022-10-26] MEDS: PANTOPRAZOLE ORAL SUSPENSION 40 MG SUSPDR.PKT GT SCH (05:38)
[2022-10-26] MEDS: LORATADINE 10 MG TABLET GT SCH (05:38)
[2022-10-26] MEDS: CHOLECALCIFEROL 1,000 UNIT TABLET GT SCH (05:38)
[2022-10-26 08:00] VITALS: TEMP 98.6
[2022-10-26] MEDS: NORMAL SALINE FLUSH 10 ML DISP.SYRIN IV SCH ×2 (09:00→21:00)
[2022-10-26] MEDS: REMEDY ESSENTIAL ZINC PASTE 113 GM TOP SCH ×2 (09:49→21:00)
[2022-10-26] MEDS: DOCUSATE SODIUM 100 MG/10 ML LIQUID UDC GT SCH ×2 (09:49→21:00)
[2022-10-26] MEDS: ZINC OXIDE OINT 30 GM TUBE TP SCH ×2 (09:49→21:00)
[2022-10-26] MEDS: BACLOFEN 10 MG TABLET GT SCH ×3 (09:49→18:00)
[2022-10-26] MEDS: HEPARIN SODIUM,PORCINE 5,000 UNITS/ML VIAL SQ SCH ×2 (09:49→21:00)
[2022-10-26] MEDS: HYDROGEN PEROXIDE 3% 118 ML BOTTLE TP SCH ×2 (09:55→21:00)
[2022-10-26] MEDS: JEVITY 1.2 1000 ML LIQUID GT PRN (14:32)
[2022-10-26 21:00] VITALS: O2SAT 99
[2022-10-26] MEDS: OMEGA-3 FATTY ACIDS/FISH OIL CAPSULE GT SCH (21:00)
[2022-10-26 21:30] VITALS: TEMP 97.8
[2022-10-27] MEDS: MEROPENEM 1 G in IV NORMAL SALINE 100 ML IV SCH ×3 (02:30→17:55)
[2022-10-27] MEDS: PANTOPRAZOLE ORAL SUSPENSION 40 MG SUSPDR.PKT GT SCH (06:00)
[2022-10-27] MEDS: CHOLECALCIFEROL 1,000 UNIT TABLET GT SCH (06:00)
[2022-10-27] MEDS: LORATADINE 10 MG TABLET GT SCH (06:00)
[2022-10-27] MEDS: HYDROGEN PEROXIDE 3% 118 ML BOTTLE TP SCH ×2 (07:40→20:21)
[2022-10-27] MEDS: DOCUSATE SODIUM 100 MG/10 ML LIQUID UDC GT SCH ×2 (09:52→21:00)
[2022-10-27] MEDS: NORMAL SALINE FLUSH 10 ML DISP.SYRIN IV SCH ×2 (09:52→21:00)
[2022-10-27] MEDS: BACLOFEN 10 MG TABLET GT SCH ×3 (09:53→16:38)
[2022-10-27] MEDS: ZINC OXIDE OINT 30 GM TUBE TP SCH ×2 (09:56→21:00)
[2022-10-27] MEDS: HEPARIN SODIUM,PORCINE 5,000 UNITS/ML VIAL SQ SCH ×2 (09:56→21:00)
[2022-10-27] MEDS: REMEDY ESSENTIAL ZINC PASTE 113 GM TOP SCH ×2 (09:56→21:00)
[2022-10-27 10:10] VITALS: O2SAT 99
[2022-10-27 11:13] VITALS: TEMP 97.5
[2022-10-27] MEDS: JEVITY 1.2 1000 ML LIQUID GT PRN (14:13)
[2022-10-27] MEDS: ACETAMINOPHEN 650 MG/20 ML UDC- SA PATIENTS-PAIN ONLY GT PRN (17:46)
[2022-10-27 20:50] VITALS: O2SAT 99
[2022-10-27] MEDS: OMEGA-3 FATTY ACIDS/FISH OIL CAPSULE GT SCH (21:00)
[2022-10-28 01:18] VITALS: TEMP 97.1
[2022-10-28] MEDS: MEROPENEM 1 G in IV NORMAL SALINE 100 ML IV SCH ×3 (02:16→18:14)
[2022-10-28] MEDS: PANTOPRAZOLE ORAL SUSPENSION 40 MG SUSPDR.PKT GT SCH (06:00)
[2022-10-28] MEDS: LORATADINE 10 MG TABLET GT SCH (06:00)
[2022-10-28] MEDS: CHOLECALCIFEROL 1,000 UNIT TABLET GT SCH (06:00)
[2022-10-28 07:41] VITALS: TEMP 98.7
[2022-10-28] MEDS: BACLOFEN 10 MG TABLET GT SCH ×3 (09:00→17:00)
[2022-10-28] MEDS: REMEDY ESSENTIAL ZINC PASTE 113 GM TOP SCH ×2 (09:00→21:00)
[2022-10-28] MEDS: NORMAL SALINE FLUSH 10 ML DISP.SYRIN IV SCH ×2 (09:00→21:00)
[2022-10-28] MEDS: KETOCONAZOLE 2% SHAMPOO 120 ML BOTTLE TP SCH (09:00)
[2022-10-28] MEDS: HEPARIN SODIUM,PORCINE 5,000 UNITS/ML VIAL SQ SCH ×2 (09:00→21:00)
[2022-10-28] MEDS: DOCUSATE SODIUM 100 MG/10 ML LIQUID UDC GT SCH ×2 (09:00→21:00)
[2022-10-28] MEDS: ZINC OXIDE OINT 30 GM TUBE TP SCH ×2 (09:00→21:00)
[2022-10-28] MEDS: HYDROGEN PEROXIDE 3% 118 ML BOTTLE TP SCH ×2 (09:05→21:25)
[2022-10-28 09:30] VITALS: O2SAT 99
[2022-10-28 20:00] VITALS: TEMP 98.1
[2022-10-28] MEDS: OMEGA-3 FATTY ACIDS/FISH OIL CAPSULE GT SCH (21:00)
[2022-10-28 21:25] VITALS: O2SAT 99
[2022-10-29] MEDS: MEROPENEM 1 G in IV NORMAL SALINE 100 ML IV SCH ×2 (02:30→09:41)
[2022-10-29] MEDS: PANTOPRAZOLE ORAL SUSPENSION 40 MG SUSPDR.PKT GT SCH (06:02)
[2022-10-29] MEDS: LORATADINE 10 MG TABLET GT SCH (06:02)
[2022-10-29] MEDS: CHOLECALCIFEROL 1,000 UNIT TABLET GT SCH (06:02)
[2022-10-29 07:36] VITALS: O2SAT 99
[2022-10-29 07:47] VITALS: TEMP 98.2
[2022-10-29] MEDS: HYDROGEN PEROXIDE 3% 118 ML BOTTLE TP SCH ×2 (08:28→21:00)
[2022-10-29] MEDS: DOCUSATE SODIUM 100 MG/10 ML LIQUID UDC GT SCH ×2 (09:40→21:43)
[2022-10-29] MEDS: ZINC OXIDE OINT 30 GM TUBE TP SCH ×2 (09:41→21:47)
[2022-10-29] MEDS: NORMAL SALINE FLUSH 10 ML DISP.SYRIN IV SCH ×2 (09:41→21:00)
[2022-10-29] MEDS: BACLOFEN 10 MG TABLET GT SCH ×3 (09:41→17:10)
[2022-10-29] MEDS: REMEDY ESSENTIAL ZINC PASTE 113 GM TOP SCH ×2 (09:41→21:43)
[2022-10-29] MEDS: HEPARIN SODIUM,PORCINE 5,000 UNITS/ML VIAL SQ SCH ×2 (09:43→21:00)
[2022-10-29] MEDS: JEVITY 1.2 1000 ML LIQUID GT PRN (10:50)
[2022-10-29 16:41] VITALS: O2SAT 99
[2022-10-29 19:20] VITALS: O2SAT 99
[2022-10-29 20:00] VITALS: TEMP 98
[2022-10-29] MEDS: OMEGA-3 FATTY ACIDS/FISH OIL CAPSULE GT SCH (21:43)
[2022-10-30] MEDS: JEVITY 1.2 1000 ML LIQUID GT PRN (04:30)
[2022-10-30] MEDS: PANTOPRAZOLE ORAL SUSPENSION 40 MG SUSPDR.PKT GT SCH (06:03)
[2022-10-30] MEDS: CHOLECALCIFEROL 1,000 UNIT TABLET GT SCH (06:03)
[2022-10-30] MEDS: LORATADINE 10 MG TABLET GT SCH (06:03)
[2022-10-30 07:40] VITALS: TEMP 98.8
[2022-10-30] MEDS: HYDROGEN PEROXIDE 3% 118 ML BOTTLE TP SCH ×2 (08:10→21:12)
[2022-10-30] MEDS: NORMAL SALINE FLUSH 10 ML DISP.SYRIN IV SCH ×2 (09:00→21:00)
[2022-10-30] MEDS: ZINC OXIDE OINT 30 GM TUBE TP SCH ×2 (09:00→20:25)
[2022-10-30] MEDS: DOCUSATE SODIUM 100 MG/10 ML LIQUID UDC GT SCH ×2 (09:28→20:25)
[2022-10-30] MEDS: BACLOFEN 10 MG TABLET GT SCH ×3 (09:29→17:21)
[2022-10-30] MEDS: REMEDY ESSENTIAL ZINC PASTE 113 GM TOP SCH ×2 (09:29→20:25)
[2022-10-30] MEDS: HEPARIN SODIUM,PORCINE 5,000 UNITS/ML VIAL SQ SCH ×2 (09:29→20:50)
[2022-10-30 10:30] VITALS: O2SAT 97
[2022-10-30 20:00] VITALS: TEMP 97.8
[2022-10-30] MEDS: OMEGA-3 FATTY ACIDS/FISH OIL CAPSULE GT SCH (20:25)
[2022-10-30 21:28] VITALS: O2SAT 97
[2022-10-31] MEDS: JEVITY 1.2 1000 ML LIQUID GT PRN ×2 (02:02→22:31)
[2022-10-31] MEDS: CHOLECALCIFEROL 1,000 UNIT TABLET GT SCH (05:35)
[2022-10-31] MEDS: LORATADINE 10 MG TABLET GT SCH (05:35)
[2022-10-31] MEDS: PANTOPRAZOLE ORAL SUSPENSION 40 MG SUSPDR.PKT GT SCH (05:35)
[2022-10-31 07:40] VITALS: O2SAT 99
[2022-10-31] MEDS: HYDROGEN PEROXIDE 3% 118 ML BOTTLE TP SCH ×2 (07:42→21:09)
[2022-10-31] MEDS: NORMAL SALINE FLUSH 10 ML DISP.SYRIN IV SCH ×2 (09:00→21:00)
[2022-10-31] MEDS: BACLOFEN 10 MG TABLET GT SCH ×3 (09:34→17:51)
[2022-10-31] MEDS: DOCUSATE SODIUM 100 MG/10 ML LIQUID UDC GT SCH ×2 (09:34→20:26)
[2022-10-31] MEDS: REMEDY ESSENTIAL ZINC PASTE 113 GM TOP SCH ×2 (09:35→20:26)
[2022-10-31] MEDS: KETOCONAZOLE 2% SHAMPOO 120 ML BOTTLE TP SCH (09:35)
[2022-10-31] MEDS: ZINC OXIDE OINT 30 GM TUBE TP SCH ×2 (09:35→20:26)
[2022-10-31] MEDS: HEPARIN SODIUM,PORCINE 5,000 UNITS/ML VIAL SQ SCH ×2 (09:36→21:58)
[2022-10-31 17:11] VITALS: O2SAT 99
[2022-10-31 20:00] VITALS: TEMP 97.9
[2022-10-31] MEDS: OMEGA-3 FATTY ACIDS/FISH OIL CAPSULE GT SCH (20:26)
[2022-10-31 21:22] VITALS: O2SAT 99
[2022-11-01] MEDS: LORATADINE 10 MG TABLET GT SCH (05:28)
[2022-11-01] MEDS: CHOLECALCIFEROL 1,000 UNIT TABLET GT SCH (05:28)
[2022-11-01] MEDS: PANTOPRAZOLE ORAL SUSPENSION 40 MG SUSPDR.PKT GT SCH (05:28)
[2022-11-01 07:43] VITALS: TEMP 99
[2022-11-01] MEDS: BACLOFEN 10 MG TABLET GT SCH ×3 (08:14→16:58)
[2022-11-01] MEDS: ZINC OXIDE OINT 30 GM TUBE TP SCH ×2 (08:14→21:00)
[2022-11-01] MEDS: HEPARIN SODIUM,PORCINE 5,000 UNITS/ML VIAL SQ SCH ×2 (08:14→20:14)
[2022-11-01] MEDS: REMEDY ESSENTIAL ZINC PASTE 113 GM TOP SCH ×2 (08:14→20:16)
[2022-11-01] MEDS: DOCUSATE SODIUM 100 MG/10 ML LIQUID UDC GT SCH ×2 (08:14→20:12)
[2022-11-01 09:00] VITALS: O2SAT 97
[2022-11-01] MEDS: NORMAL SALINE FLUSH 10 ML DISP.SYRIN IV SCH ×2 (09:00→21:00)
[2022-11-01] MEDS: HYDROGEN PEROXIDE 3% 118 ML BOTTLE TP SCH ×2 (09:27→21:46)
[2022-11-01] MEDS: JEVITY 1.2 1000 ML LIQUID GT PRN (18:01)
[2022-11-01 19:58] VITALS: TEMP 98
[2022-11-01] MEDS: OMEGA-3 FATTY ACIDS/FISH OIL CAPSULE GT SCH (20:12)
[2022-11-01 22:48] VITALS: O2SAT 99
[2022-11-02] MEDS: LORATADINE 10 MG TABLET GT SCH (05:39)
[2022-11-02] MEDS: CHOLECALCIFEROL 1,000 UNIT TABLET GT SCH (05:40)
[2022-11-02] MEDS: PANTOPRAZOLE ORAL SUSPENSION 40 MG SUSPDR.PKT GT SCH (05:40)
[2022-11-02] MEDS: HYDROGEN PEROXIDE 3% 118 ML BOTTLE TP SCH ×2 (07:21→21:24)
[2022-11-02 07:24] VITALS: TEMP 98.8
[2022-11-02] MEDS: BACLOFEN 10 MG TABLET GT SCH ×3 (08:28→17:10)
[2022-11-02] MEDS: ZINC OXIDE OINT 30 GM TUBE TP SCH ×2 (08:28→21:00)
[2022-11-02] MEDS: REMEDY ESSENTIAL ZINC PASTE 113 GM TOP SCH ×2 (08:28→21:00)
[2022-11-02] MEDS: DOCUSATE SODIUM 100 MG/10 ML LIQUID UDC GT SCH ×2 (08:28→21:00)
[2022-11-02] MEDS: ACETAMINOPHEN 650 MG/20 ML UDC- SA PATIENTS-PAIN ONLY GT PRN (08:32)
[2022-11-02] MEDS: HEPARIN SODIUM,PORCINE 5,000 UNITS/ML VIAL SQ SCH ×2 (08:32→21:00)
[2022-11-02 10:40] VITALS: O2SAT 99
[2022-11-02] MEDS: JEVITY 1.2 1000 ML LIQUID GT PRN (14:22)
[2022-11-02 20:00] VITALS: TEMP 98.4
[2022-11-02] MEDS: OMEGA-3 FATTY ACIDS/FISH OIL CAPSULE GT SCH (21:00)
[2022-11-02 21:25] VITALS: O2SAT 99
[2022-11-03] MEDS: LORATADINE 10 MG TABLET GT SCH (06:40)
[2022-11-03] MEDS: CHOLECALCIFEROL 1,000 UNIT TABLET GT SCH (06:40)
[2022-11-03] MEDS: PANTOPRAZOLE ORAL SUSPENSION 40 MG SUSPDR.PKT GT SCH (06:40)
[2022-11-03 07:17] VITALS: TEMP 98.5
[2022-11-03] MEDS: HYDROGEN PEROXIDE 3% 118 ML BOTTLE TP SCH ×2 (07:18→19:28)
[2022-11-03 08:30] LABS: BASOPHILS # (AUTO) 0.1 K/UL (0.0-0.2); BASOPHILS % (AUTO) 0.6 % (0.0-2.0); EOSINOPHILS # (AUTO) 0.2 K/uL (0.0-0.7); EOSINOPHILS % (AUTO) 2.5 % (0.0-7.0); HEMATOCRIT 40.5 % (36.7-47.1); HEMOGLOBIN 13.4 g/dL (12.5-16.3); LYMPHOCYTES # (AUTO) 2.8 K/uL (0.8-4.8); LYMPHOCYTES % (AUTO) 32.3 % (20.5-51.5); MEAN CORPUSCULAR HEMOGLOBIN 30.4 uug (23.8-33.4); MEAN CORPUSCULAR HGB CONC 33 g/dL (32.5-36.3); MEAN CORPUSCULAR VOLUME 91.9 fL (73.0-96.2); MONOCYTES # (AUTO) 1.1 K/uL (0.1-1.30); MONOCYTES % (AUTO) 12.3 % (0.0-11.0); NEUTROPHILS # (AUTO) 4.6 K/uL (1.8-8.9); NEUTROPHILS % (AUTO) 52.3 % (38.5-71.5); PLATELET COUNT (AUTO) 281 K/uL (152-348); RED BLOOD CELL COUNT(AUTO) 4.41 MIL/uL (4.06-5.63); RED CELL DISTRIBUTION WIDTH 13.3 % (12.1-16.2); WHITE BLOOD COUNT (AUTO) 8.7 K/uL (3.6-10.2)
[2022-11-03 08:37] LABS: DIFFERENTIAL COMMENT 1
[2022-11-03] MEDS: BACLOFEN 10 MG TABLET GT SCH ×3 (08:38→17:02)
[2022-11-03] MEDS: DOCUSATE SODIUM 100 MG/10 ML LIQUID UDC GT SCH ×2 (08:38→21:31)
[2022-11-03] MEDS: REMEDY ESSENTIAL ZINC PASTE 113 GM TOP SCH ×2 (08:38→21:32)
[2022-11-03] MEDS: ZINC OXIDE OINT 30 GM TUBE TP SCH ×2 (08:39→21:32)
[2022-11-03] MEDS: HEPARIN SODIUM,PORCINE 5,000 UNITS/ML VIAL SQ SCH ×2 (09:00→21:37)
[2022-11-03 09:11] LABS: ALBUMIN 3.4 g/dL (3.4-5.0); BILIRUBIN,TOTAL 0.4 mg/dL (0.2-1.0); C-REACTIVE PROTEIN 1.9 mg/dL (0.0-0.9); CALCIUM 9.6 mg/dL (8.5-10.1); CREATININE 0.7 mg/dL (0.6-1.3); MAGNESIUM 1.9 mg/dL (1.8-2.4); PHOSPHOROUS 4.3 mg/dL (2.5-4.9); POTASSIUM 4.4 mmol/L (3.5-5.1)
[2022-11-03 10:35] VITALS: O2SAT 99
[2022-11-03] MEDS: JEVITY 1.2 1000 ML LIQUID GT PRN (11:51)
[2022-11-03 20:21] VITALS: TEMP 98
[2022-11-03 21:30] VITALS: O2SAT 99
[2022-11-03] MEDS: OMEGA-3 FATTY ACIDS/FISH OIL CAPSULE GT SCH (21:31)
[2022-11-04] MEDS: JEVITY 1.2 1000 ML LIQUID GT PRN (03:29)
[2022-11-04] MEDS: PANTOPRAZOLE ORAL SUSPENSION 40 MG SUSPDR.PKT GT SCH (05:07)
[2022-11-04] MEDS: CHOLECALCIFEROL 1,000 UNIT TABLET GT SCH (05:07)
[2022-11-04] MEDS: LORATADINE 10 MG TABLET GT SCH (05:07)
[2022-11-04 07:30] VITALS: TEMP 98.7
[2022-11-04] MEDS: DOCUSATE SODIUM 100 MG/10 ML LIQUID UDC GT SCH ×2 (08:35→20:10)
[2022-11-04] MEDS: BACLOFEN 10 MG TABLET GT SCH ×3 (08:35→17:04)
[2022-11-04] MEDS: KETOCONAZOLE 2% SHAMPOO 120 ML BOTTLE TP SCH (08:36)
[2022-11-04] MEDS: REMEDY ESSENTIAL ZINC PASTE 113 GM TOP SCH ×2 (08:36→20:10)
[2022-11-04] MEDS: ZINC OXIDE OINT 30 GM TUBE TP SCH ×2 (08:36→20:11)
[2022-11-04] MEDS: HEPARIN SODIUM,PORCINE 5,000 UNITS/ML VIAL SQ SCH ×2 (08:39→20:10)
[2022-11-04 09:10] VITALS: O2SAT 99
[2022-11-04] MEDS: HYDROGEN PEROXIDE 3% 118 ML BOTTLE TP SCH ×2 (09:22→21:25)
[2022-11-04 20:00] VITALS: TEMP 98.2
[2022-11-04] MEDS: OMEGA-3 FATTY ACIDS/FISH OIL CAPSULE GT SCH (20:10)
[2022-11-04 20:30] VITALS: O2SAT 99
[2022-11-05] MEDS: JEVITY 1.2 1000 ML LIQUID GT PRN (03:00)
[2022-11-05] MEDS: LORATADINE 10 MG TABLET GT SCH (06:16)
[2022-11-05] MEDS: PANTOPRAZOLE ORAL SUSPENSION 40 MG SUSPDR.PKT GT SCH (06:16)
[2022-11-05] MEDS: CHOLECALCIFEROL 1,000 UNIT TABLET GT SCH (06:16)
[2022-11-05] MEDS: HYDROGEN PEROXIDE 3% 118 ML BOTTLE TP SCH ×2 (07:27→19:10)
[2022-11-05 07:46] VITALS: TEMP 98.3
[2022-11-05] MEDS: DOCUSATE SODIUM 100 MG/10 ML LIQUID UDC GT SCH ×2 (08:30→21:00)
[2022-11-05] MEDS: BACLOFEN 10 MG TABLET GT SCH ×3 (08:31→17:10)
[2022-11-05] MEDS: ZINC OXIDE OINT 30 GM TUBE TP SCH ×2 (08:31→21:00)
[2022-11-05] MEDS: REMEDY ESSENTIAL ZINC PASTE 113 GM TOP SCH ×2 (08:31→21:00)
[2022-11-05] MEDS: HEPARIN SODIUM,PORCINE 5,000 UNITS/ML VIAL SQ SCH ×2 (08:32→21:00)
[2022-11-05 10:30] VITALS: O2SAT 98
[2022-11-05 19:40] VITALS: O2SAT 99
[2022-11-05 20:03] VITALS: TEMP 98.2
[2022-11-05] MEDS: OMEGA-3 FATTY ACIDS/FISH OIL CAPSULE GT SCH (21:00)
[2022-11-06] MEDS: LORATADINE 10 MG TABLET GT SCH (06:42)
[2022-11-06] MEDS: CHOLECALCIFEROL 1,000 UNIT TABLET GT SCH (06:42)
[2022-11-06] MEDS: PANTOPRAZOLE ORAL SUSPENSION 40 MG SUSPDR.PKT GT SCH (06:42)
[2022-11-06 07:47] VITALS: TEMP 97.7
[2022-11-06 08:20] VITALS: O2SAT 97
[2022-11-06] MEDS: HYDROGEN PEROXIDE 3% 118 ML BOTTLE TP SCH ×2 (08:20→19:10)
[2022-11-06] MEDS: DOCUSATE SODIUM 100 MG/10 ML LIQUID UDC GT SCH ×2 (08:41→21:00)
[2022-11-06] MEDS: REMEDY ESSENTIAL ZINC PASTE 113 GM TOP SCH ×2 (08:45→21:00)
[2022-11-06] MEDS: ZINC OXIDE OINT 30 GM TUBE TP SCH ×2 (08:45→21:00)
[2022-11-06] MEDS: BACLOFEN 10 MG TABLET GT SCH ×3 (08:45→17:09)
[2022-11-06] MEDS: HEPARIN SODIUM,PORCINE 5,000 UNITS/ML VIAL SQ SCH ×2 (08:46→21:00)
[2022-11-06 20:05] VITALS: O2SAT 99
[2022-11-06 20:09] VITALS: TEMP 98.3
[2022-11-06] MEDS: OMEGA-3 FATTY ACIDS/FISH OIL CAPSULE GT SCH (21:00)
[2022-11-07] MEDS: JEVITY 1.2 1000 ML LIQUID GT PRN (03:00)
[2022-11-07] MEDS: PANTOPRAZOLE ORAL SUSPENSION 40 MG SUSPDR.PKT GT SCH (06:33)
[2022-11-07] MEDS: LORATADINE 10 MG TABLET GT SCH (06:33)
[2022-11-07] MEDS: CHOLECALCIFEROL 1,000 UNIT TABLET GT SCH (06:33)
[2022-11-07 07:15] VITALS: O2SAT 97
[2022-11-07] MEDS: HYDROGEN PEROXIDE 3% 118 ML BOTTLE TP SCH ×2 (07:15→19:01)
[2022-11-07 07:57] VITALS: TEMP 98.9
[2022-11-07] MEDS: HEPARIN SODIUM,PORCINE 5,000 UNITS/ML VIAL SQ SCH ×2 (09:00→21:00)
[2022-11-07] MEDS: DOCUSATE SODIUM 100 MG/10 ML LIQUID UDC GT SCH ×2 (09:52→21:00)
[2022-11-07] MEDS: KETOCONAZOLE 2% SHAMPOO 120 ML BOTTLE TP SCH (09:53)
[2022-11-07] MEDS: BACLOFEN 10 MG TABLET GT SCH ×3 (09:53→17:46)
[2022-11-07] MEDS: REMEDY ESSENTIAL ZINC PASTE 113 GM TOP SCH ×2 (09:53→21:00)
[2022-11-07] MEDS: ZINC OXIDE OINT 30 GM TUBE TP SCH ×2 (09:54→21:00)
[2022-11-07 19:44] VITALS: TEMP 97.9
[2022-11-07 20:05] VITALS: O2SAT 99
[2022-11-07] MEDS: OMEGA-3 FATTY ACIDS/FISH OIL CAPSULE GT SCH (21:00)
[2022-11-08] MEDS: PANTOPRAZOLE ORAL SUSPENSION 40 MG SUSPDR.PKT GT SCH (06:30)
[2022-11-08] MEDS: CHOLECALCIFEROL 1,000 UNIT TABLET GT SCH (06:30)
[2022-11-08] MEDS: LORATADINE 10 MG TABLET GT SCH (06:30)
[2022-11-08] MEDS: HEPARIN SODIUM,PORCINE 5,000 UNITS/ML VIAL SQ SCH ×2 (08:25→21:00)
[2022-11-08] MEDS: REMEDY ESSENTIAL ZINC PASTE 113 GM TOP SCH ×2 (08:25→21:00)
[2022-11-08] MEDS: DOCUSATE SODIUM 100 MG/10 ML LIQUID UDC GT SCH ×2 (08:25→21:00)
[2022-11-08] MEDS: BACLOFEN 10 MG TABLET GT SCH ×3 (08:25→16:55)
[2022-11-08] MEDS: ZINC OXIDE OINT 30 GM TUBE TP SCH ×2 (08:25→21:00)
[2022-11-08 09:20] VITALS: O2SAT 97
[2022-11-08] MEDS: HYDROGEN PEROXIDE 3% 118 ML BOTTLE TP SCH ×2 (09:41→21:10)
[2022-11-08 11:54] VITALS: TEMP 98.3
[2022-11-08 19:20] VITALS: O2SAT 99
[2022-11-08 20:00] VITALS: TEMP 98.2
[2022-11-08] MEDS: OMEGA-3 FATTY ACIDS/FISH OIL CAPSULE GT SCH (21:00)
[2022-11-09] MEDS: JEVITY 1.2 1000 ML LIQUID GT PRN (05:00)
[2022-11-09] MEDS: LORATADINE 10 MG TABLET GT SCH (06:24)
[2022-11-09] MEDS: PANTOPRAZOLE ORAL SUSPENSION 40 MG SUSPDR.PKT GT SCH (06:24)
[2022-11-09] MEDS: CHOLECALCIFEROL 1,000 UNIT TABLET GT SCH (06:24)
[2022-11-09 07:21] VITALS: TEMP 97.5
[2022-11-09 09:20] VITALS: O2SAT 97
[2022-11-09] MEDS: BACLOFEN 10 MG TABLET GT SCH ×3 (09:35→17:16)
[2022-11-09] MEDS: DOCUSATE SODIUM 100 MG/10 ML LIQUID UDC GT SCH ×2 (09:35→21:00)
[2022-11-09] MEDS: REMEDY ESSENTIAL ZINC PASTE 113 GM TOP SCH ×2 (09:36→21:00)
[2022-11-09] MEDS: HEPARIN SODIUM,PORCINE 5,000 UNITS/ML VIAL SQ SCH ×2 (09:36→21:00)
[2022-11-09] MEDS: ZINC OXIDE OINT 30 GM TUBE TP SCH ×2 (09:36→21:00)
[2022-11-09] MEDS: HYDROGEN PEROXIDE 3% 118 ML BOTTLE TP SCH ×2 (09:36→21:00)
[2022-11-09] MEDS: ACETAMINOPHEN 650 MG/20 ML UDC- SA PATIENTS-PAIN ONLY GT PRN (10:06)
[2022-11-09 19:25] VITALS: O2SAT 99
[2022-11-09 19:56] VITALS: TEMP 97.7
[2022-11-09] MEDS: OMEGA-3 FATTY ACIDS/FISH OIL CAPSULE GT SCH (21:00)
[2022-11-10] MEDS: JEVITY 1.2 1000 ML LIQUID GT PRN (02:00)
[2022-11-10] MEDS: LORATADINE 10 MG TABLET GT SCH (06:40)
[2022-11-10] MEDS: CHOLECALCIFEROL 1,000 UNIT TABLET GT SCH (06:40)
[2022-11-10] MEDS: PANTOPRAZOLE ORAL SUSPENSION 40 MG SUSPDR.PKT GT SCH (06:40)
[2022-11-10] MEDS: HYDROGEN PEROXIDE 3% 118 ML BOTTLE TP SCH ×2 (07:15→21:46)
[2022-11-10 07:25] VITALS: TEMP 98.5
[2022-11-10] MEDS: BACLOFEN 10 MG TABLET GT SCH ×3 (08:57→17:19)
[2022-11-10] MEDS: DOCUSATE SODIUM 100 MG/10 ML LIQUID UDC GT SCH ×2 (08:57→21:50)
[2022-11-10] MEDS: REMEDY ESSENTIAL ZINC PASTE 113 GM TOP SCH ×2 (08:59→21:45)
[2022-11-10] MEDS: HEPARIN SODIUM,PORCINE 5,000 UNITS/ML VIAL SQ SCH ×2 (08:59→21:49)
[2022-11-10] MEDS: ZINC OXIDE OINT 30 GM TUBE TP SCH ×2 (09:00→21:46)
[2022-11-10 10:30] VITALS: O2SAT 99
[2022-11-10 19:53] VITALS: TEMP 97.9
[2022-11-10 21:20] VITALS: O2SAT 99
[2022-11-10] MEDS: OMEGA-3 FATTY ACIDS/FISH OIL CAPSULE GT SCH (21:45)
[2022-11-11] MEDS: JEVITY 1.2 1000 ML LIQUID GT PRN ×2 (02:10→18:13)
[2022-11-11] MEDS: PANTOPRAZOLE ORAL SUSPENSION 40 MG SUSPDR.PKT GT SCH (06:31)
[2022-11-11] MEDS: LORATADINE 10 MG TABLET GT SCH (06:31)
[2022-11-11] MEDS: CHOLECALCIFEROL 1,000 UNIT TABLET GT SCH (06:31)
[2022-11-11 07:20] VITALS: TEMP 98.3
[2022-11-11] MEDS: BACLOFEN 10 MG TABLET GT SCH ×3 (08:58→17:13)
[2022-11-11] MEDS: DOCUSATE SODIUM 100 MG/10 ML LIQUID UDC GT SCH ×2 (08:58→21:23)
[2022-11-11] MEDS: HEPARIN SODIUM,PORCINE 5,000 UNITS/ML VIAL SQ SCH ×2 (09:00→21:23)
[2022-11-11] MEDS: REMEDY ESSENTIAL ZINC PASTE 113 GM TOP SCH ×2 (09:00→21:24)
[2022-11-11] MEDS: KETOCONAZOLE 2% SHAMPOO 120 ML BOTTLE TP SCH (09:00)
[2022-11-11] MEDS: ZINC OXIDE OINT 30 GM TUBE TP SCH ×2 (09:02→21:24)
[2022-11-11] MEDS: HYDROGEN PEROXIDE 3% 118 ML BOTTLE TP SCH ×2 (09:05→19:15)
[2022-11-11] MEDS: ACETAMINOPHEN 650 MG/20 ML UDC- SA PATIENTS-PAIN ONLY GT PRN (09:46)
[2022-11-11 20:21] VITALS: TEMP 97.6
[2022-11-11 20:51] VITALS: O2SAT 99
[2022-11-11] MEDS: OMEGA-3 FATTY ACIDS/FISH OIL CAPSULE GT SCH (21:23)
[2022-11-12] MEDS: CHOLECALCIFEROL 1,000 UNIT TABLET GT SCH (06:52)
[2022-11-12] MEDS: LORATADINE 10 MG TABLET GT SCH (06:52)
[2022-11-12] MEDS: PANTOPRAZOLE ORAL SUSPENSION 40 MG SUSPDR.PKT GT SCH (06:52)
[2022-11-12 07:53] VITALS: TEMP 98.6
[2022-11-12] MEDS: HYDROGEN PEROXIDE 3% 118 ML BOTTLE TP SCH ×2 (08:07→21:25)
[2022-11-12] MEDS: DOCUSATE SODIUM 100 MG/10 ML LIQUID UDC GT SCH ×2 (09:07→20:30)
[2022-11-12] MEDS: BACLOFEN 10 MG TABLET GT SCH ×3 (09:07→16:38)
[2022-11-12] MEDS: HEPARIN SODIUM,PORCINE 5,000 UNITS/ML VIAL SQ SCH ×2 (09:14→21:04)
[2022-11-12] MEDS: ZINC OXIDE OINT 30 GM TUBE TP SCH ×2 (09:15→20:37)
[2022-11-12] MEDS: REMEDY ESSENTIAL ZINC PASTE 113 GM TOP SCH ×2 (09:15→20:37)
[2022-11-12 15:34] VITALS: O2SAT 95
[2022-11-12 19:05] VITALS: O2SAT 99
[2022-11-12 20:26] VITALS: TEMP 98.4
[2022-11-12] MEDS: OMEGA-3 FATTY ACIDS/FISH OIL CAPSULE GT SCH (20:30)
[2022-11-13] MEDS: JEVITY 1.2 1000 ML LIQUID GT PRN (02:32)
[2022-11-13] MEDS: LORATADINE 10 MG TABLET GT SCH (05:52)
[2022-11-13] MEDS: PANTOPRAZOLE ORAL SUSPENSION 40 MG SUSPDR.PKT GT SCH (05:52)
[2022-11-13] MEDS: CHOLECALCIFEROL 1,000 UNIT TABLET GT SCH (05:52)
[2022-11-13 07:15] VITALS: O2SAT 99
[2022-11-13] MEDS: HYDROGEN PEROXIDE 3% 118 ML BOTTLE TP SCH ×2 (07:15→21:18)
[2022-11-13 07:44] VITALS: TEMP 98.6
[2022-11-13] MEDS: REMEDY ESSENTIAL ZINC PASTE 113 GM TOP SCH ×2 (08:45→20:45)
[2022-11-13] MEDS: ZINC OXIDE OINT 30 GM TUBE TP SCH ×2 (08:45→20:45)
[2022-11-13] MEDS: HEPARIN SODIUM,PORCINE 5,000 UNITS/ML VIAL SQ SCH ×2 (08:45→21:06)
[2022-11-13] MEDS: BACLOFEN 10 MG TABLET GT SCH ×3 (08:45→17:29)
[2022-11-13] MEDS: DOCUSATE SODIUM 100 MG/10 ML LIQUID UDC GT SCH ×2 (08:45→20:45)
[2022-11-13 20:15] VITALS: TEMP 98.7
[2022-11-13] MEDS: OMEGA-3 FATTY ACIDS/FISH OIL CAPSULE GT SCH (20:45)
[2022-11-13 21:35] VITALS: O2SAT 99
[2022-11-14] MEDS: PANTOPRAZOLE ORAL SUSPENSION 40 MG SUSPDR.PKT GT SCH (05:03)
[2022-11-14] MEDS: JEVITY 1.2 1000 ML LIQUID GT PRN (05:03)
[2022-11-14] MEDS: LORATADINE 10 MG TABLET GT SCH (05:03)
[2022-11-14] MEDS: CHOLECALCIFEROL 1,000 UNIT TABLET GT SCH (05:03)
[2022-11-14 07:44] VITALS: TEMP 98.3
[2022-11-14] MEDS: BACLOFEN 10 MG TABLET GT SCH ×3 (08:42→17:36)
[2022-11-14] MEDS: DOCUSATE SODIUM 100 MG/10 ML LIQUID UDC GT SCH ×2 (08:42→21:00)
[2022-11-14] MEDS: REMEDY ESSENTIAL ZINC PASTE 113 GM TOP SCH ×2 (08:43→21:00)
[2022-11-14] MEDS: HEPARIN SODIUM,PORCINE 5,000 UNITS/ML VIAL SQ SCH ×2 (08:43→21:00)
[2022-11-14] MEDS: HYDROGEN PEROXIDE 3% 118 ML BOTTLE TP SCH ×2 (09:06→21:11)
[2022-11-14] MEDS: KETOCONAZOLE 2% SHAMPOO 120 ML BOTTLE TP SCH (09:46)
[2022-11-14] MEDS: ZINC OXIDE OINT 30 GM TUBE TP SCH ×2 (09:46→21:00)
[2022-11-14 10:30] VITALS: O2SAT 99
[2022-11-14 20:15] VITALS: TEMP 99.1
[2022-11-14] MEDS: OMEGA-3 FATTY ACIDS/FISH OIL CAPSULE GT SCH (21:00)
[2022-11-15] MEDS: CHOLECALCIFEROL 1,000 UNIT TABLET GT SCH (05:21)
[2022-11-15] MEDS: LORATADINE 10 MG TABLET GT SCH (05:21)
[2022-11-15] MEDS: PANTOPRAZOLE ORAL SUSPENSION 40 MG SUSPDR.PKT GT SCH (05:21)
[2022-11-15 06:10] VITALS: O2SAT 99
[2022-11-15 08:02] VITALS: TEMP 98.2
[2022-11-15] MEDS: DOCUSATE SODIUM 100 MG/10 ML LIQUID UDC GT SCH ×2 (08:56→20:28)
[2022-11-15] MEDS: BACLOFEN 10 MG TABLET GT SCH ×3 (08:58→17:43)
[2022-11-15] MEDS: HYDROGEN PEROXIDE 3% 118 ML BOTTLE TP SCH ×2 (09:00→21:02)
[2022-11-15] MEDS: HEPARIN SODIUM,PORCINE 5,000 UNITS/ML VIAL SQ SCH ×2 (09:08→21:00)
[2022-11-15] MEDS: REMEDY ESSENTIAL ZINC PASTE 113 GM TOP SCH ×2 (09:10→20:29)
[2022-11-15] MEDS: ZINC OXIDE OINT 30 GM TUBE TP SCH ×2 (09:10→20:29)
[2022-11-15 10:00] VITALS: O2SAT 99
[2022-11-15 20:26] VITALS: TEMP 98.5
[2022-11-15] MEDS: OMEGA-3 FATTY ACIDS/FISH OIL CAPSULE GT SCH (20:29)
[2022-11-15 21:21] VITALS: O2SAT 99
[2022-11-16] MEDS: LORATADINE 10 MG TABLET GT SCH (05:08)
[2022-11-16] MEDS: PANTOPRAZOLE ORAL SUSPENSION 40 MG SUSPDR.PKT GT SCH (05:08)
[2022-11-16] MEDS: CHOLECALCIFEROL 1,000 UNIT TABLET GT SCH (05:09)
[2022-11-16 07:24] VITALS: TEMP 98.8
[2022-11-16] MEDS: DOCUSATE SODIUM 100 MG/10 ML LIQUID UDC GT SCH ×2 (08:21→20:12)
[2022-11-16] MEDS: HEPARIN SODIUM,PORCINE 5,000 UNITS/ML VIAL SQ SCH ×2 (08:21→20:13)
[2022-11-16] MEDS: BACLOFEN 10 MG TABLET GT SCH ×3 (08:21→16:41)
[2022-11-16] MEDS: ZINC OXIDE OINT 30 GM TUBE TP SCH ×2 (08:23→20:13)
[2022-11-16] MEDS: REMEDY ESSENTIAL ZINC PASTE 113 GM TOP SCH ×2 (08:23→20:13)
[2022-11-16] MEDS: ACETAMINOPHEN 650 MG/20 ML UDC- SA PATIENTS-PAIN ONLY GT PRN (08:23)
[2022-11-16 09:20] VITALS: O2SAT 99
[2022-11-16] MEDS: HYDROGEN PEROXIDE 3% 118 ML BOTTLE TP SCH ×2 (09:37→21:00)
[2022-11-16] MEDS: JEVITY 1.2 1000 ML LIQUID GT PRN (10:40)
[2022-11-16 19:20] VITALS: O2SAT 99
[2022-11-16] MEDS: OMEGA-3 FATTY ACIDS/FISH OIL CAPSULE GT SCH (20:12)
[2022-11-16 20:24] VITALS: TEMP 98.6
[2022-11-17] MEDS: PANTOPRAZOLE ORAL SUSPENSION 40 MG SUSPDR.PKT GT SCH (05:00)
[2022-11-17] MEDS: CHOLECALCIFEROL 1,000 UNIT TABLET GT SCH (05:00)
[2022-11-17] MEDS: LORATADINE 10 MG TABLET GT SCH (05:00)
[2022-11-17 07:20] VITALS: TEMP 98.1
[2022-11-17 07:26] VITALS: O2SAT 99
[2022-11-17] MEDS: BACLOFEN 10 MG TABLET GT SCH ×3 (08:20→16:30)
[2022-11-17] MEDS: DOCUSATE SODIUM 100 MG/10 ML LIQUID UDC GT SCH ×2 (08:20→20:05)
[2022-11-17] MEDS: ZINC OXIDE OINT 30 GM TUBE TP SCH ×2 (08:20→20:08)
[2022-11-17] MEDS: ACETAMINOPHEN 650 MG/20 ML UDC- SA PATIENTS-PAIN ONLY GT PRN (08:20)
[2022-11-17] MEDS: REMEDY ESSENTIAL ZINC PASTE 113 GM TOP SCH ×2 (08:20→20:07)
[2022-11-17] MEDS: HEPARIN SODIUM,PORCINE 5,000 UNITS/ML VIAL SQ SCH ×2 (08:22→20:06)
[2022-11-17] MEDS: HYDROGEN PEROXIDE 3% 118 ML BOTTLE TP SCH ×2 (09:53→19:27)
[2022-11-17] MEDS: JEVITY 1.2 1000 ML LIQUID GT PRN (16:30)
[2022-11-17 19:15] VITALS: O2SAT 99
[2022-11-17 19:48] VITALS: TEMP 98.6
[2022-11-17] MEDS: OMEGA-3 FATTY ACIDS/FISH OIL CAPSULE GT SCH (20:05)
[2022-11-18] MEDS: PANTOPRAZOLE ORAL SUSPENSION 40 MG SUSPDR.PKT GT SCH (06:26)
[2022-11-18] MEDS: CHOLECALCIFEROL 1,000 UNIT TABLET GT SCH (06:26)
[2022-11-18] MEDS: LORATADINE 10 MG TABLET GT SCH (06:26)
[2022-11-18 07:25] VITALS: TEMP 98.3
[2022-11-18] MEDS: DOCUSATE SODIUM 100 MG/10 ML LIQUID UDC GT SCH ×2 (09:00→20:10)
[2022-11-18] MEDS: HEPARIN SODIUM,PORCINE 5,000 UNITS/ML VIAL SQ SCH ×2 (09:00→20:13)
[2022-11-18] MEDS: KETOCONAZOLE 2% SHAMPOO 120 ML BOTTLE TP SCH (09:00)
[2022-11-18] MEDS: BACLOFEN 10 MG TABLET GT SCH ×3 (09:00→17:00)
[2022-11-18] MEDS: REMEDY ESSENTIAL ZINC PASTE 113 GM TOP SCH ×2 (09:00→20:13)
[2022-11-18] MEDS: ZINC OXIDE OINT 30 GM TUBE TP SCH ×2 (09:00→20:13)
[2022-11-18 09:15] VITALS: O2SAT 99
[2022-11-18] MEDS: HYDROGEN PEROXIDE 3% 118 ML BOTTLE TP SCH ×2 (09:22→21:55)
[2022-11-18 19:41] VITALS: TEMP 97.9
[2022-11-18] MEDS: OMEGA-3 FATTY ACIDS/FISH OIL CAPSULE GT SCH (20:11)
[2022-11-18 20:55] VITALS: O2SAT 99
[2022-11-19] MEDS: PANTOPRAZOLE ORAL SUSPENSION 40 MG SUSPDR.PKT GT SCH (05:43)
[2022-11-19] MEDS: CHOLECALCIFEROL 1,000 UNIT TABLET GT SCH (05:43)
[2022-11-19] MEDS: LORATADINE 10 MG TABLET GT SCH (05:43)
[2022-11-19 07:28] VITALS: TEMP 97.4
[2022-11-19] MEDS: DOCUSATE SODIUM 100 MG/10 ML LIQUID UDC GT SCH ×2 (08:22→20:05)
[2022-11-19] MEDS: BACLOFEN 10 MG TABLET GT SCH ×3 (08:22→17:26)
[2022-11-19] MEDS: ZINC OXIDE OINT 30 GM TUBE TP SCH ×2 (08:23→20:14)
[2022-11-19] MEDS: REMEDY ESSENTIAL ZINC PASTE 113 GM TOP SCH ×2 (08:23→20:14)
[2022-11-19] MEDS: HEPARIN SODIUM,PORCINE 5,000 UNITS/ML VIAL SQ SCH ×2 (08:24→20:06)
[2022-11-19] MEDS: HYDROGEN PEROXIDE 3% 118 ML BOTTLE TP SCH ×2 (09:00→19:29)
[2022-11-19] MEDS: JEVITY 1.2 1000 ML LIQUID GT PRN (13:49)
[2022-11-19 14:36] VITALS: O2SAT 95
[2022-11-19 19:51] VITALS: TEMP 98.4
[2022-11-19 20:05] VITALS: O2SAT 99
[2022-11-19] MEDS: OMEGA-3 FATTY ACIDS/FISH OIL CAPSULE GT SCH (20:05)
[2022-11-20] MEDS: JEVITY 1.2 1000 ML LIQUID GT PRN (04:30)
[2022-11-20] MEDS: LORATADINE 10 MG TABLET GT SCH (06:16)
[2022-11-20] MEDS: CHOLECALCIFEROL 1,000 UNIT TABLET GT SCH (06:16)
[2022-11-20] MEDS: PANTOPRAZOLE ORAL SUSPENSION 40 MG SUSPDR.PKT GT SCH (06:16)
[2022-11-20 07:58] VITALS: TEMP 97.4
[2022-11-20] MEDS: HYDROGEN PEROXIDE 3% 118 ML BOTTLE TP SCH ×2 (08:36→18:50)
[2022-11-20] MEDS: BACLOFEN 10 MG TABLET GT SCH ×3 (09:06→17:24)
[2022-11-20] MEDS: DOCUSATE SODIUM 100 MG/10 ML LIQUID UDC GT SCH ×2 (09:06→21:00)
[2022-11-20] MEDS: ZINC OXIDE OINT 30 GM TUBE TP SCH ×2 (09:09→21:00)
[2022-11-20] MEDS: REMEDY ESSENTIAL ZINC PASTE 113 GM TOP SCH ×2 (09:09→21:00)
[2022-11-20] MEDS: HEPARIN SODIUM,PORCINE 5,000 UNITS/ML VIAL SQ SCH ×2 (09:09→21:00)
[2022-11-20 10:40] VITALS: O2SAT 98
[2022-11-20 18:50] VITALS: O2SAT 98
[2022-11-20 19:53] VITALS: TEMP 98.3
[2022-11-20] MEDS: OMEGA-3 FATTY ACIDS/FISH OIL CAPSULE GT SCH (21:00)
[2022-11-21] MEDS: LORATADINE 10 MG TABLET GT SCH (06:34)
[2022-11-21] MEDS: CHOLECALCIFEROL 1,000 UNIT TABLET GT SCH (06:34)
[2022-11-21] MEDS: PANTOPRAZOLE ORAL SUSPENSION 40 MG SUSPDR.PKT GT SCH (06:34)
[2022-11-21] MEDS: HYDROGEN PEROXIDE 3% 118 ML BOTTLE TP SCH ×2 (07:30→21:20)
[2022-11-21 07:50] VITALS: O2SAT 98
[2022-11-21 07:53] VITALS: TEMP 98.3
[2022-11-21] MEDS: DOCUSATE SODIUM 100 MG/10 ML LIQUID UDC GT SCH ×2 (08:41→20:57)
[2022-11-21] MEDS: REMEDY ESSENTIAL ZINC PASTE 113 GM TOP SCH ×2 (08:42→20:58)
[2022-11-21] MEDS: ZINC OXIDE OINT 30 GM TUBE TP SCH ×2 (08:42→20:58)
[2022-11-21] MEDS: KETOCONAZOLE 2% SHAMPOO 120 ML BOTTLE TP SCH (08:43)
[2022-11-21] MEDS: BACLOFEN 10 MG TABLET GT SCH ×3 (08:43→17:12)
[2022-11-21] MEDS: HEPARIN SODIUM,PORCINE 5,000 UNITS/ML VIAL SQ SCH ×2 (08:50→21:04)
[2022-11-21 19:48] VITALS: TEMP 99.1
[2022-11-21] MEDS: OMEGA-3 FATTY ACIDS/FISH OIL CAPSULE GT SCH (20:58)
[2022-11-21] MEDS: JEVITY 1.2 1000 ML LIQUID GT PRN (21:05)
[2022-11-21 21:10] VITALS: O2SAT 99
[2022-11-22] MEDS: CHOLECALCIFEROL 1,000 UNIT TABLET GT SCH (06:23)
[2022-11-22] MEDS: LORATADINE 10 MG TABLET GT SCH (06:23)
[2022-11-22] MEDS: PANTOPRAZOLE ORAL SUSPENSION 40 MG SUSPDR.PKT GT SCH (06:23)
[2022-11-22 07:49] VITALS: TEMP 97.8
[2022-11-22] MEDS: DOCUSATE SODIUM 100 MG/10 ML LIQUID UDC GT SCH ×2 (08:43→21:00)
[2022-11-22] MEDS: BACLOFEN 10 MG TABLET GT SCH ×3 (08:43→17:00)
[2022-11-22] MEDS: HEPARIN SODIUM,PORCINE 5,000 UNITS/ML VIAL SQ SCH ×2 (08:45→21:00)
[2022-11-22] MEDS: ZINC OXIDE OINT 30 GM TUBE TP SCH ×2 (08:45→21:00)
[2022-11-22] MEDS: REMEDY ESSENTIAL ZINC PASTE 113 GM TOP SCH ×2 (08:45→21:00)
[2022-11-22] MEDS: HYDROGEN PEROXIDE 3% 118 ML BOTTLE TP SCH ×2 (09:00→21:09)
[2022-11-22 10:00] VITALS: O2SAT 99
[2022-11-22] MEDS: JEVITY 1.2 1000 ML LIQUID GT PRN (15:32)
[2022-11-22 20:14] VITALS: TEMP 98.1
[2022-11-22] MEDS: OMEGA-3 FATTY ACIDS/FISH OIL CAPSULE GT SCH (21:00)
[2022-11-22 21:11] VITALS: O2SAT 99
[2022-11-23] MEDS: LORATADINE 10 MG TABLET GT SCH (03:38)
[2022-11-23] MEDS: PANTOPRAZOLE ORAL SUSPENSION 40 MG SUSPDR.PKT GT SCH (05:32)
[2022-11-23] MEDS: CHOLECALCIFEROL 1,000 UNIT TABLET GT SCH (05:33)
[2022-11-23] MEDS: JEVITY 1.2 1000 ML LIQUID GT PRN (05:34)
[2022-11-23 07:22] VITALS: TEMP 97.5
[2022-11-23] MEDS: DOCUSATE SODIUM 100 MG/10 ML LIQUID UDC GT SCH ×2 (08:31→21:00)
[2022-11-23] MEDS: BACLOFEN 10 MG TABLET GT SCH ×3 (08:31→17:13)
[2022-11-23] MEDS: REMEDY ESSENTIAL ZINC PASTE 113 GM TOP SCH ×2 (08:32→21:00)
[2022-11-23] MEDS: HEPARIN SODIUM,PORCINE 5,000 UNITS/ML VIAL SQ SCH ×2 (08:32→21:00)
[2022-11-23] MEDS: ZINC OXIDE OINT 30 GM TUBE TP SCH ×2 (08:32→21:00)
[2022-11-23] MEDS: HYDROGEN PEROXIDE 3% 118 ML BOTTLE TP SCH ×2 (09:09→21:05)
[2022-11-23 20:38] VITALS: TEMP 97.9
[2022-11-23] MEDS: OMEGA-3 FATTY ACIDS/FISH OIL CAPSULE GT SCH (21:00)
[2022-11-23 21:05] VITALS: O2SAT 99
[2022-11-24] MEDS: PANTOPRAZOLE ORAL SUSPENSION 40 MG SUSPDR.PKT GT SCH (06:00)
[2022-11-24] MEDS: LORATADINE 10 MG TABLET GT SCH (06:00)
[2022-11-24] MEDS: CHOLECALCIFEROL 1,000 UNIT TABLET GT SCH (06:00)
[2022-11-24 07:09] VITALS: TEMP 98.3
[2022-11-24] MEDS: HYDROGEN PEROXIDE 3% 118 ML BOTTLE TP SCH ×2 (07:36→20:42)
[2022-11-24] MEDS: HEPARIN SODIUM,PORCINE 5,000 UNITS/ML VIAL SQ SCH ×2 (09:00→21:00)
[2022-11-24] MEDS: DOCUSATE SODIUM 100 MG/10 ML LIQUID UDC GT SCH ×2 (09:00→21:00)
[2022-11-24] MEDS: REMEDY ESSENTIAL ZINC PASTE 113 GM TOP SCH ×2 (09:00→21:00)
[2022-11-24] MEDS: ZINC OXIDE OINT 30 GM TUBE TP SCH ×2 (09:00→21:00)
[2022-11-24] MEDS: BACLOFEN 10 MG TABLET GT SCH ×3 (09:00→17:41)
[2022-11-24] MEDS: ACETAMINOPHEN 650 MG/20 ML UDC- SA PATIENTS-PAIN ONLY GT PRN (10:19)
[2022-11-24 10:35] VITALS: O2SAT 99
[2022-11-24 20:11] VITALS: TEMP 98.9
[2022-11-24 20:43] VITALS: O2SAT 99
[2022-11-24] MEDS: OMEGA-3 FATTY ACIDS/FISH OIL CAPSULE GT SCH (21:00)
[2022-11-25] MEDS: JEVITY 1.2 1000 ML LIQUID GT PRN (04:00)
[2022-11-25] MEDS: CHOLECALCIFEROL 1,000 UNIT TABLET GT SCH (06:56)
[2022-11-25] MEDS: LORATADINE 10 MG TABLET GT SCH (06:56)
[2022-11-25] MEDS: PANTOPRAZOLE ORAL SUSPENSION 40 MG SUSPDR.PKT GT SCH (06:56)
[2022-11-25 07:22] VITALS: TEMP 98.6
[2022-11-25] MEDS: DOCUSATE SODIUM 100 MG/10 ML LIQUID UDC GT SCH ×2 (08:21→21:00)
[2022-11-25] MEDS: BACLOFEN 10 MG TABLET GT SCH ×3 (08:21→16:59)
[2022-11-25] MEDS: HEPARIN SODIUM,PORCINE 5,000 UNITS/ML VIAL SQ SCH ×2 (08:22→21:00)
[2022-11-25] MEDS: ZINC OXIDE OINT 30 GM TUBE TP SCH ×2 (08:23→21:00)
[2022-11-25] MEDS: REMEDY ESSENTIAL ZINC PASTE 113 GM TOP SCH ×2 (08:23→21:00)
[2022-11-25] MEDS: KETOCONAZOLE 2% SHAMPOO 120 ML BOTTLE TP SCH (08:23)
[2022-11-25] MEDS: HYDROGEN PEROXIDE 3% 118 ML BOTTLE TP SCH ×2 (09:07→21:42)
[2022-11-25 10:30] VITALS: O2SAT 98
[2022-11-25 20:41] VITALS: TEMP 98.4
[2022-11-25 21:00] VITALS: O2SAT 99
[2022-11-25] MEDS: OMEGA-3 FATTY ACIDS/FISH OIL CAPSULE GT SCH (21:00)
[2022-11-26] MEDS: JEVITY 1.2 1000 ML LIQUID GT PRN ×2 (05:30→19:59)
[2022-11-26] MEDS: PANTOPRAZOLE ORAL SUSPENSION 40 MG SUSPDR.PKT GT SCH (06:35)
[2022-11-26] MEDS: LORATADINE 10 MG TABLET GT SCH (06:35)
[2022-11-26] MEDS: CHOLECALCIFEROL 1,000 UNIT TABLET GT SCH (06:35)
[2022-11-26 07:52] VITALS: TEMP 98.1
[2022-11-26] MEDS: DOCUSATE SODIUM 100 MG/10 ML LIQUID UDC GT SCH ×2 (08:32→20:10)
[2022-11-26] MEDS: REMEDY ESSENTIAL ZINC PASTE 113 GM TOP SCH ×2 (08:33→20:10)
[2022-11-26] MEDS: BACLOFEN 10 MG TABLET GT SCH ×3 (08:33→17:35)
[2022-11-26] MEDS: HEPARIN SODIUM,PORCINE 5,000 UNITS/ML VIAL SQ SCH ×2 (08:38→21:57)
[2022-11-26] MEDS: ZINC OXIDE OINT 30 GM TUBE TP SCH ×2 (09:00→20:10)
[2022-11-26] MEDS: HYDROGEN PEROXIDE 3% 118 ML BOTTLE TP SCH ×2 (09:16→20:50)
[2022-11-26 14:34] VITALS: O2SAT 95
[2022-11-26 19:53] VITALS: TEMP 97.6
[2022-11-26] MEDS: OMEGA-3 FATTY ACIDS/FISH OIL CAPSULE GT SCH (20:10)
[2022-11-26 21:05] VITALS: O2SAT 99
[2022-11-27] MEDS: PANTOPRAZOLE ORAL SUSPENSION 40 MG SUSPDR.PKT GT SCH (05:17)
[2022-11-27] MEDS: CHOLECALCIFEROL 1,000 UNIT TABLET GT SCH (05:17)
[2022-11-27] MEDS: LORATADINE 10 MG TABLET GT SCH (05:17)
[2022-11-27] MEDS: HYDROGEN PEROXIDE 3% 118 ML BOTTLE TP SCH ×2 (07:25→21:35)
[2022-11-27 07:27] VITALS: O2SAT 98
[2022-11-27 07:45] VITALS: TEMP 98.1
[2022-11-27] MEDS: BACLOFEN 10 MG TABLET GT SCH ×3 (08:47→17:16)
[2022-11-27] MEDS: DOCUSATE SODIUM 100 MG/10 ML LIQUID UDC GT SCH ×2 (08:47→20:22)
[2022-11-27] MEDS: REMEDY ESSENTIAL ZINC PASTE 113 GM TOP SCH ×2 (08:48→20:22)
[2022-11-27] MEDS: ZINC OXIDE OINT 30 GM TUBE TP SCH ×2 (08:48→20:22)
[2022-11-27] MEDS: HEPARIN SODIUM,PORCINE 5,000 UNITS/ML VIAL SQ SCH ×2 (08:49→21:00)
[2022-11-27] MEDS: JEVITY 1.2 1000 ML LIQUID GT PRN (17:28)
[2022-11-27 20:00] VITALS: TEMP 98.7
[2022-11-27 20:10] VITALS: O2SAT 99
[2022-11-27] MEDS: OMEGA-3 FATTY ACIDS/FISH OIL CAPSULE GT SCH (20:22)
[2022-11-28] MEDS: PANTOPRAZOLE ORAL SUSPENSION 40 MG SUSPDR.PKT GT SCH (05:32)
[2022-11-28] MEDS: CHOLECALCIFEROL 1,000 UNIT TABLET GT SCH (05:32)
[2022-11-28] MEDS: LORATADINE 10 MG TABLET GT SCH (05:32)
[2022-11-28 07:15] VITALS: O2SAT 98
[2022-11-28] MEDS: HYDROGEN PEROXIDE 3% 118 ML BOTTLE TP SCH ×2 (07:15→21:01)
[2022-11-28 07:43] VITALS: TEMP 98.7
[2022-11-28] MEDS: DOCUSATE SODIUM 100 MG/10 ML LIQUID UDC GT SCH ×2 (09:06→20:09)
[2022-11-28] MEDS: BACLOFEN 10 MG TABLET GT SCH ×3 (09:07→17:30)
[2022-11-28] MEDS: ZINC OXIDE OINT 30 GM TUBE TP SCH ×2 (09:07→20:09)
[2022-11-28] MEDS: REMEDY ESSENTIAL ZINC PASTE 113 GM TOP SCH ×2 (09:07→20:09)
[2022-11-28] MEDS: KETOCONAZOLE 2% SHAMPOO 120 ML BOTTLE TP SCH (09:07)
[2022-11-28] MEDS: HEPARIN SODIUM,PORCINE 5,000 UNITS/ML VIAL SQ SCH ×2 (09:08→21:00)
[2022-11-28] MEDS: JEVITY 1.2 1000 ML LIQUID GT PRN (13:59)
[2022-11-28 20:00] VITALS: TEMP 97.7
[2022-11-28] MEDS: OMEGA-3 FATTY ACIDS/FISH OIL CAPSULE GT SCH (20:09)
[2022-11-28 21:09] VITALS: O2SAT 99
[2022-11-29] MEDS: CHOLECALCIFEROL 1,000 UNIT TABLET GT SCH (05:26)
[2022-11-29] MEDS: LORATADINE 10 MG TABLET GT SCH (05:26)
[2022-11-29] MEDS: PANTOPRAZOLE ORAL SUSPENSION 40 MG SUSPDR.PKT GT SCH (05:26)
[2022-11-29 07:50] VITALS: TEMP 98.7
[2022-11-29] MEDS: HYDROGEN PEROXIDE 3% 118 ML BOTTLE TP SCH ×2 (08:13→21:08)
[2022-11-29] MEDS: ZINC OXIDE OINT 30 GM TUBE TP SCH ×2 (08:49→21:00)
[2022-11-29] MEDS: BACLOFEN 10 MG TABLET GT SCH ×3 (08:49→16:52)
[2022-11-29] MEDS: DOCUSATE SODIUM 100 MG/10 ML LIQUID UDC GT SCH ×2 (08:49→21:00)
[2022-11-29] MEDS: REMEDY ESSENTIAL ZINC PASTE 113 GM TOP SCH ×2 (08:49→21:00)
[2022-11-29] MEDS: HEPARIN SODIUM,PORCINE 5,000 UNITS/ML VIAL SQ SCH ×2 (08:52→21:00)
[2022-11-29 10:40] VITALS: O2SAT 99
[2022-11-29] MEDS: OMEGA-3 FATTY ACIDS/FISH OIL CAPSULE GT SCH (21:00)
[2022-11-29 21:29] VITALS: O2SAT 99
[2022-11-30] MEDS: PANTOPRAZOLE ORAL SUSPENSION 40 MG SUSPDR.PKT GT SCH (06:00)
[2022-11-30] MEDS: CHOLECALCIFEROL 1,000 UNIT TABLET GT SCH (06:00)
[2022-11-30] MEDS: LORATADINE 10 MG TABLET GT SCH (06:00)
[2022-11-30 08:02] VITALS: TEMP 97.8
[2022-11-30] MEDS: BACLOFEN 10 MG TABLET GT SCH ×3 (08:15→17:00)
[2022-11-30] MEDS: ZINC OXIDE OINT 30 GM TUBE TP SCH ×2 (08:15→20:37)
[2022-11-30] MEDS: DOCUSATE SODIUM 100 MG/10 ML LIQUID UDC GT SCH ×2 (08:15→20:34)
[2022-11-30] MEDS: REMEDY ESSENTIAL ZINC PASTE 113 GM TOP SCH ×2 (08:15→20:37)
[2022-11-30] MEDS: ACETAMINOPHEN 650 MG/20 ML UDC- SA PATIENTS-PAIN ONLY GT PRN (08:16)
[2022-11-30] MEDS: HEPARIN SODIUM,PORCINE 5,000 UNITS/ML VIAL SQ SCH ×2 (08:19→20:37)
[2022-11-30 09:35] VITALS: O2SAT 98
[2022-11-30] MEDS: HYDROGEN PEROXIDE 3% 118 ML BOTTLE TP SCH ×2 (09:38→21:45)
[2022-11-30 20:00] VITALS: TEMP 97.9
[2022-11-30] MEDS: OMEGA-3 FATTY ACIDS/FISH OIL CAPSULE GT SCH (20:37)
[2022-11-30 21:20] VITALS: O2SAT 98
[2022-12-01] MEDS: LORATADINE 10 MG TABLET GT SCH (06:04)
[2022-12-01] MEDS: CHOLECALCIFEROL 1,000 UNIT TABLET GT SCH (06:04)
[2022-12-01] MEDS: PANTOPRAZOLE ORAL SUSPENSION 40 MG SUSPDR.PKT GT SCH (06:04)
[2022-12-01 07:18] VITALS: TEMP 98.7
[2022-12-01] MEDS: DOCUSATE SODIUM 100 MG/10 ML LIQUID UDC GT SCH ×2 (08:00→20:18)
[2022-12-01] MEDS: BACLOFEN 10 MG TABLET GT SCH ×3 (08:00→16:38)
[2022-12-01] MEDS: REMEDY ESSENTIAL ZINC PASTE 113 GM TOP SCH ×2 (08:00→20:19)
[2022-12-01] MEDS: ACETAMINOPHEN 650 MG/20 ML UDC- SA PATIENTS-PAIN ONLY GT PRN (08:01)
[2022-12-01] MEDS: HEPARIN SODIUM,PORCINE 5,000 UNITS/ML VIAL SQ SCH ×2 (08:10→20:19)
[2022-12-01] MEDS: ZINC OXIDE OINT 30 GM TUBE TP SCH ×2 (08:12→20:19)
[2022-12-01 08:31] VITALS: O2SAT 98
[2022-12-01] MEDS: HYDROGEN PEROXIDE 3% 118 ML BOTTLE TP SCH ×2 (08:31→21:11)
[2022-12-01 20:00] VITALS: TEMP 98
[2022-12-01] MEDS: OMEGA-3 FATTY ACIDS/FISH OIL CAPSULE GT SCH (20:18)
[2022-12-01 21:11] VITALS: O2SAT 98
[2022-12-02] MEDS: LORATADINE 10 MG TABLET GT SCH (05:49)
[2022-12-02] MEDS: CHOLECALCIFEROL 1,000 UNIT TABLET GT SCH (05:49)
[2022-12-02] MEDS: PANTOPRAZOLE ORAL SUSPENSION 40 MG SUSPDR.PKT GT SCH (05:49)
[2022-12-02 08:00] VITALS: TEMP 98
[2022-12-02] MEDS: HYDROGEN PEROXIDE 3% 118 ML BOTTLE TP SCH ×2 (08:16→21:19)
[2022-12-02] MEDS: DOCUSATE SODIUM 100 MG/10 ML LIQUID UDC GT SCH ×2 (08:45→20:20)
[2022-12-02] MEDS: BACLOFEN 10 MG TABLET GT SCH ×3 (08:45→16:19)
[2022-12-02] MEDS: HEPARIN SODIUM,PORCINE 5,000 UNITS/ML VIAL SQ SCH ×2 (08:48→21:23)
[2022-12-02] MEDS: REMEDY ESSENTIAL ZINC PASTE 113 GM TOP SCH ×2 (08:48→20:20)
[2022-12-02] MEDS: ZINC OXIDE OINT 30 GM TUBE TP SCH ×2 (08:49→20:20)
[2022-12-02] MEDS: KETOCONAZOLE 2% SHAMPOO 120 ML BOTTLE TP SCH (08:49)
[2022-12-02 09:15] VITALS: O2SAT 98
[2022-12-02] MEDS: JEVITY 1.2 1000 ML LIQUID GT PRN (13:14)
[2022-12-02 19:50] VITALS: O2SAT 98
[2022-12-02 20:00] VITALS: TEMP 98
[2022-12-02] MEDS: OMEGA-3 FATTY ACIDS/FISH OIL CAPSULE GT SCH (20:20)
[2022-12-03] MEDS: LORATADINE 10 MG TABLET GT SCH (05:58)
[2022-12-03] MEDS: CHOLECALCIFEROL 1,000 UNIT TABLET GT SCH (05:58)
[2022-12-03] MEDS: PANTOPRAZOLE ORAL SUSPENSION 40 MG SUSPDR.PKT GT SCH (05:58)
[2022-12-03 07:20] VITALS: O2SAT 98
[2022-12-03] MEDS: HYDROGEN PEROXIDE 3% 118 ML BOTTLE TP SCH ×2 (07:21→19:10)
[2022-12-03 07:40] VITALS: TEMP 98.3
[2022-12-03] MEDS: HEPARIN SODIUM,PORCINE 5,000 UNITS/ML VIAL SQ SCH ×2 (08:53→21:38)
[2022-12-03] MEDS: REMEDY ESSENTIAL ZINC PASTE 113 GM TOP SCH ×2 (08:54→20:05)
[2022-12-03] MEDS: ZINC OXIDE OINT 30 GM TUBE TP SCH ×2 (08:54→20:05)
[2022-12-03] MEDS: BACLOFEN 10 MG TABLET GT SCH ×3 (08:54→16:31)
[2022-12-03] MEDS: DOCUSATE SODIUM 100 MG/10 ML LIQUID UDC GT SCH ×2 (08:54→20:05)
[2022-12-03 19:45] VITALS: O2SAT 98
[2022-12-03 20:00] VITALS: TEMP 97.9
[2022-12-03] MEDS: OMEGA-3 FATTY ACIDS/FISH OIL CAPSULE GT SCH (20:05)
[2022-12-04] MEDS: LORATADINE 10 MG TABLET GT SCH (06:00)
[2022-12-04] MEDS: PANTOPRAZOLE ORAL SUSPENSION 40 MG SUSPDR.PKT GT SCH (06:00)
[2022-12-04] MEDS: CHOLECALCIFEROL 1,000 UNIT TABLET GT SCH (06:00)
[2022-12-04] MEDS: HYDROGEN PEROXIDE 3% 118 ML BOTTLE TP SCH ×2 (07:25→19:15)
[2022-12-04 07:51] VITALS: TEMP 98.1
[2022-12-04] MEDS: REMEDY ESSENTIAL ZINC PASTE 113 GM TOP SCH ×2 (09:04→20:12)
[2022-12-04] MEDS: BACLOFEN 10 MG TABLET GT SCH ×3 (09:04→16:40)
[2022-12-04] MEDS: ZINC OXIDE OINT 30 GM TUBE TP SCH ×2 (09:04→20:12)
[2022-12-04] MEDS: DOCUSATE SODIUM 100 MG/10 ML LIQUID UDC GT SCH ×2 (09:04→20:12)
[2022-12-04] MEDS: HEPARIN SODIUM,PORCINE 5,000 UNITS/ML VIAL SQ SCH ×2 (09:09→21:00)
[2022-12-04 10:00] VITALS: O2SAT 98
[2022-12-04] MEDS: OMEGA-3 FATTY ACIDS/FISH OIL CAPSULE GT SCH (20:12)
[2022-12-04] MEDS: JEVITY 1.2 1000 ML LIQUID GT PRN (20:12)
[2022-12-04 20:46] VITALS: TEMP 98.8
[2022-12-04 22:14] VITALS: O2SAT 98
[2022-12-05] MEDS: PANTOPRAZOLE ORAL SUSPENSION 40 MG SUSPDR.PKT GT SCH (05:21)
[2022-12-05] MEDS: CHOLECALCIFEROL 1,000 UNIT TABLET GT SCH (05:21)
[2022-12-05] MEDS: LORATADINE 10 MG TABLET GT SCH (05:21)
[2022-12-05 08:00] VITALS: TEMP 98.4
[2022-12-05] MEDS: HYDROGEN PEROXIDE 3% 118 ML BOTTLE TP SCH ×2 (08:16→20:55)
[2022-12-05] MEDS: BACLOFEN 10 MG TABLET GT SCH ×3 (08:31→17:32)
[2022-12-05] MEDS: DOCUSATE SODIUM 100 MG/10 ML LIQUID UDC GT SCH ×2 (08:31→20:28)
[2022-12-05] MEDS: ZINC OXIDE OINT 30 GM TUBE TP SCH ×2 (08:33→20:29)
[2022-12-05] MEDS: REMEDY ESSENTIAL ZINC PASTE 113 GM TOP SCH ×2 (08:33→20:28)
[2022-12-05] MEDS: KETOCONAZOLE 2% SHAMPOO 120 ML BOTTLE TP SCH (08:33)
[2022-12-05] MEDS: HEPARIN SODIUM,PORCINE 5,000 UNITS/ML VIAL SQ SCH ×2 (08:33→21:00)
[2022-12-05 10:30] VITALS: O2SAT 98
[2022-12-05 20:16] VITALS: TEMP 98.7
[2022-12-05] MEDS: OMEGA-3 FATTY ACIDS/FISH OIL CAPSULE GT SCH (20:28)
[2022-12-05 22:53] VITALS: O2SAT 98
[2022-12-06] MEDS: JEVITY 1.2 1000 ML LIQUID GT PRN (02:01)
[2022-12-06] MEDS: LORATADINE 10 MG TABLET GT SCH (05:15)
[2022-12-06] MEDS: PANTOPRAZOLE ORAL SUSPENSION 40 MG SUSPDR.PKT GT SCH (05:15)
[2022-12-06] MEDS: CHOLECALCIFEROL 1,000 UNIT TABLET GT SCH (05:15)
[2022-12-06 07:32] VITALS: TEMP 98.2
[2022-12-06] MEDS: DOCUSATE SODIUM 100 MG/10 ML LIQUID UDC GT SCH ×2 (08:33→21:12)
[2022-12-06] MEDS: BACLOFEN 10 MG TABLET GT SCH ×3 (08:33→17:17)
[2022-12-06] MEDS: HYDROGEN PEROXIDE 3% 118 ML BOTTLE TP SCH ×2 (08:34→21:00)
[2022-12-06] MEDS: REMEDY ESSENTIAL ZINC PASTE 113 GM TOP SCH ×2 (08:34→21:13)
[2022-12-06] MEDS: ZINC OXIDE OINT 30 GM TUBE TP SCH ×2 (08:34→21:14)
[2022-12-06] MEDS: HEPARIN SODIUM,PORCINE 5,000 UNITS/ML VIAL SQ SCH ×2 (08:45→21:11)
[2022-12-06 10:00] VITALS: O2SAT 98
[2022-12-06 19:12] VITALS: O2SAT 98
[2022-12-06 20:49] VITALS: TEMP 98.4
[2022-12-06] MEDS: OMEGA-3 FATTY ACIDS/FISH OIL CAPSULE GT SCH (21:12)
[2022-12-07] MEDS: PANTOPRAZOLE ORAL SUSPENSION 40 MG SUSPDR.PKT GT SCH (06:07)
[2022-12-07] MEDS: LORATADINE 10 MG TABLET GT SCH (06:07)
[2022-12-07] MEDS: CHOLECALCIFEROL 1,000 UNIT TABLET GT SCH (06:08)
[2022-12-07 08:00] VITALS: TEMP 97.6
[2022-12-07] MEDS: BACLOFEN 10 MG TABLET GT SCH ×3 (08:35→17:24)
[2022-12-07] MEDS: DOCUSATE SODIUM 100 MG/10 ML LIQUID UDC GT SCH ×2 (08:35→20:01)
[2022-12-07] MEDS: REMEDY ESSENTIAL ZINC PASTE 113 GM TOP SCH ×2 (08:36→20:01)
[2022-12-07] MEDS: ZINC OXIDE OINT 30 GM TUBE TP SCH ×2 (08:36→20:01)
[2022-12-07] MEDS: HEPARIN SODIUM,PORCINE 5,000 UNITS/ML VIAL SQ SCH ×2 (08:36→21:15)
[2022-12-07] MEDS: HYDROGEN PEROXIDE 3% 118 ML BOTTLE TP SCH ×2 (09:00→21:04)
[2022-12-07 10:05] VITALS: O2SAT 98
[2022-12-07] MEDS: JEVITY 1.2 1000 ML LIQUID GT PRN (13:34)
[2022-12-07] MEDS: OMEGA-3 FATTY ACIDS/FISH OIL CAPSULE GT SCH (20:01)
[2022-12-07] MEDS: [UNRECOGNIZED DRUG - OTHER] GT SCH (20:01)
[2022-12-07] MEDS: [UNRECOGNIZED DRUG - OTHER] TOP SCH (20:01)
[2022-12-07 20:17] VITALS: TEMP 98.7
[2022-12-07 21:04] VITALS: O2SAT 99
[2022-12-08] MEDS: CHOLECALCIFEROL 1,000 UNIT TABLET GT SCH (05:13)
[2022-12-08] MEDS: PANTOPRAZOLE ORAL SUSPENSION 40 MG SUSPDR.PKT GT SCH (05:13)
[2022-12-08] MEDS: LORATADINE 10 MG TABLET GT SCH (05:13)
[2022-12-08] MEDS: HYDROGEN PEROXIDE 3% 118 ML BOTTLE TP SCH ×2 (07:42→20:48)
[2022-12-08 08:00] VITALS: TEMP 98.8
[2022-12-08] MEDS: BACLOFEN 10 MG TABLET GT SCH ×3 (08:41→17:34)
[2022-12-08] MEDS: DOCUSATE SODIUM 100 MG/10 ML LIQUID UDC GT SCH ×2 (08:41→20:02)
[2022-12-08] MEDS: [UNRECOGNIZED DRUG - OTHER] GT SCH ×2 (08:41→20:02)
[2022-12-08] MEDS: VITAMINS A AND D OINT 42 GM TUBE TP SCH (08:42)
[2022-12-08] MEDS: [UNRECOGNIZED DRUG - OTHER] TOP SCH ×2 (08:42→20:03)
[2022-12-08] MEDS: HEPARIN SODIUM,PORCINE 5,000 UNITS/ML VIAL SQ SCH ×2 (08:42→21:52)
[2022-12-08] MEDS: REMEDY ESSENTIAL ZINC PASTE 113 GM TOP SCH ×2 (08:42→20:03)
[2022-12-08] MEDS: ZINC OXIDE OINT 30 GM TUBE TP SCH ×2 (08:42→20:03)
[2022-12-08 10:10] VITALS: O2SAT 98
[2022-12-08] MEDS: JEVITY 1.2 1000 ML LIQUID GT PRN (18:31)
[2022-12-08 19:50] VITALS: O2SAT 99
[2022-12-08] MEDS: OMEGA-3 FATTY ACIDS/FISH OIL CAPSULE GT SCH (20:02)
[2022-12-08 20:27] VITALS: TEMP 98.6
[2022-12-09] MEDS: CHOLECALCIFEROL 1,000 UNIT TABLET GT SCH (05:07)
[2022-12-09] MEDS: PANTOPRAZOLE ORAL SUSPENSION 40 MG SUSPDR.PKT GT SCH (05:07)
[2022-12-09] MEDS: LORATADINE 10 MG TABLET GT SCH (05:07)
[2022-12-09 07:39] VITALS: TEMP 97.7
[2022-12-09 07:45] VITALS: O2SAT 98
[2022-12-09] MEDS: HYDROGEN PEROXIDE 3% 118 ML BOTTLE TP SCH ×2 (08:09→21:00)
[2022-12-09] MEDS: DOCUSATE SODIUM 100 MG/10 ML LIQUID UDC GT SCH ×2 (08:37→21:08)
[2022-12-09] MEDS: BACLOFEN 10 MG TABLET GT SCH ×3 (08:37→17:06)
[2022-12-09] MEDS: [UNRECOGNIZED DRUG - OTHER] GT SCH ×2 (08:37→21:08)
[2022-12-09] MEDS: KETOCONAZOLE 2% SHAMPOO 120 ML BOTTLE TP SCH (08:38)
[2022-12-09] MEDS: [UNRECOGNIZED DRUG - OTHER] TOP SCH ×2 (08:38→21:08)
[2022-12-09] MEDS: ZINC OXIDE OINT 30 GM TUBE TP SCH ×2 (08:38→21:00)
[2022-12-09] MEDS: VITAMINS A AND D OINT 42 GM TUBE TP SCH (08:38)
[2022-12-09] MEDS: REMEDY ESSENTIAL ZINC PASTE 113 GM TOP SCH ×2 (08:38→21:00)
[2022-12-09] MEDS: HEPARIN SODIUM,PORCINE 5,000 UNITS/ML VIAL SQ SCH ×2 (08:38→21:00)
[2022-12-09 18:08] VITALS: O2SAT 99
[2022-12-09] MEDS: OMEGA-3 FATTY ACIDS/FISH OIL CAPSULE GT SCH (21:06)
[2022-12-09 21:24] VITALS: TEMP 98
[2022-12-10] MEDS: PANTOPRAZOLE ORAL SUSPENSION 40 MG SUSPDR.PKT GT SCH (06:44)
[2022-12-10] MEDS: LORATADINE 10 MG TABLET GT SCH (06:45)
[2022-12-10] MEDS: CHOLECALCIFEROL 1,000 UNIT TABLET GT SCH (06:45)
[2022-12-10] MEDS: HYDROGEN PEROXIDE 3% 118 ML BOTTLE TP SCH ×2 (08:42→19:15)
[2022-12-10] MEDS: DOCUSATE SODIUM 100 MG/10 ML LIQUID UDC GT SCH ×2 (08:43→20:26)
[2022-12-10] MEDS: BACLOFEN 10 MG TABLET GT SCH ×3 (08:43→17:00)
[2022-12-10] MEDS: [UNRECOGNIZED DRUG - OTHER] GT SCH ×2 (08:45→20:28)
[2022-12-10] MEDS: [UNRECOGNIZED DRUG - OTHER] TOP SCH ×2 (08:45→20:29)
[2022-12-10] MEDS: REMEDY ESSENTIAL ZINC PASTE 113 GM TOP SCH ×2 (08:46→20:29)
[2022-12-10] MEDS: VITAMINS A AND D OINT 42 GM TUBE TP SCH (08:46)
[2022-12-10] MEDS: ZINC OXIDE OINT 30 GM TUBE TP SCH ×2 (08:46→20:29)
[2022-12-10] MEDS: HEPARIN SODIUM,PORCINE 5,000 UNITS/ML VIAL SQ SCH ×2 (09:00→20:29)
[2022-12-10 16:33] VITALS: O2SAT 95
[2022-12-10 20:00] VITALS: TEMP 97.7
[2022-12-10] MEDS: OMEGA-3 FATTY ACIDS/FISH OIL CAPSULE GT SCH (20:28)
[2022-12-10 20:52] VITALS: O2SAT 99
[2022-12-11] MEDS: PANTOPRAZOLE ORAL SUSPENSION 40 MG SUSPDR.PKT GT SCH (05:11)
[2022-12-11] MEDS: LORATADINE 10 MG TABLET GT SCH (05:11)
[2022-12-11] MEDS: CHOLECALCIFEROL 1,000 UNIT TABLET GT SCH (05:11)
[2022-12-11 08:00] VITALS: TEMP 97.4
[2022-12-11] MEDS: VITAMINS A AND D OINT 42 GM TUBE TP SCH (09:00)
[2022-12-11] MEDS: ZINC OXIDE OINT 30 GM TUBE TP SCH ×2 (09:00→20:37)
[2022-12-11] MEDS: HYDROGEN PEROXIDE 3% 118 ML BOTTLE TP SCH ×2 (09:00→21:53)
[2022-12-11] MEDS: DOCUSATE SODIUM 100 MG/10 ML LIQUID UDC GT SCH ×2 (09:33→20:34)
[2022-12-11] MEDS: BACLOFEN 10 MG TABLET GT SCH ×3 (09:35→17:00)
[2022-12-11] MEDS: [UNRECOGNIZED DRUG - OTHER] GT SCH ×2 (09:36→20:34)
[2022-12-11] MEDS: [UNRECOGNIZED DRUG - OTHER] TOP SCH ×2 (09:38→20:37)
[2022-12-11] MEDS: REMEDY ESSENTIAL ZINC PASTE 113 GM TOP SCH ×2 (09:38→20:37)
[2022-12-11] MEDS: HEPARIN SODIUM,PORCINE 5,000 UNITS/ML VIAL SQ SCH ×2 (09:57→20:45)
[2022-12-11 10:40] VITALS: O2SAT 98
[2022-12-11 20:02] VITALS: O2SAT 99
[2022-12-11] MEDS: OMEGA-3 FATTY ACIDS/FISH OIL CAPSULE GT SCH (20:34)
[2022-12-11 20:37] VITALS: TEMP 98.7
[2022-12-12 05:56] VITALS: O2SAT 99
[2022-12-12] MEDS: LORATADINE 10 MG TABLET GT SCH (05:58)
[2022-12-12] MEDS: PANTOPRAZOLE ORAL SUSPENSION 40 MG SUSPDR.PKT GT SCH (05:59)
[2022-12-12] MEDS: CHOLECALCIFEROL 1,000 UNIT TABLET GT SCH (05:59)
[2022-12-12 07:44] VITALS: TEMP 97.7
[2022-12-12] MEDS: [UNRECOGNIZED DRUG - OTHER] GT SCH ×2 (08:15→20:35)
[2022-12-12] MEDS: BACLOFEN 10 MG TABLET GT SCH ×3 (08:15→16:35)
[2022-12-12] MEDS: DOCUSATE SODIUM 100 MG/10 ML LIQUID UDC GT SCH ×2 (08:15→20:35)
[2022-12-12] MEDS: VITAMINS A AND D OINT 42 GM TUBE TP SCH (08:16)
[2022-12-12] MEDS: HEPARIN SODIUM,PORCINE 5,000 UNITS/ML VIAL SQ SCH ×2 (08:16→20:51)
[2022-12-12] MEDS: ZINC OXIDE OINT 30 GM TUBE TP SCH ×2 (08:16→20:39)
[2022-12-12] MEDS: KETOCONAZOLE 2% SHAMPOO 120 ML BOTTLE TP SCH (08:16)
[2022-12-12] MEDS: REMEDY ESSENTIAL ZINC PASTE 113 GM TOP SCH ×2 (08:16→20:39)
[2022-12-12] MEDS: [UNRECOGNIZED DRUG - OTHER] TOP SCH ×2 (08:16→20:38)
[2022-12-12 08:35] VITALS: O2SAT 98
[2022-12-12] MEDS: HYDROGEN PEROXIDE 3% 118 ML BOTTLE TP SCH ×2 (08:35→18:05)
[2022-12-12] MEDS: JEVITY 1.2 1000 ML LIQUID GT PRN (16:35)
[2022-12-12 18:05] VITALS: O2SAT 99
[2022-12-12 20:00] VITALS: TEMP 98.8
[2022-12-12] MEDS: OMEGA-3 FATTY ACIDS/FISH OIL CAPSULE GT SCH (20:35)
[2022-12-13 00:46] VITALS: O2SAT 99
[2022-12-13] MEDS: PANTOPRAZOLE ORAL SUSPENSION 40 MG SUSPDR.PKT GT SCH (05:33)
[2022-12-13] MEDS: LORATADINE 10 MG TABLET GT SCH (05:33)
[2022-12-13] MEDS: CHOLECALCIFEROL 1,000 UNIT TABLET GT SCH (05:33)
[2022-12-13 07:56] VITALS: TEMP 98.1
[2022-12-13] MEDS: DOCUSATE SODIUM 100 MG/10 ML LIQUID UDC GT SCH ×2 (08:20→20:49)
[2022-12-13] MEDS: BACLOFEN 10 MG TABLET GT SCH ×3 (08:20→17:10)
[2022-12-13] MEDS: [UNRECOGNIZED DRUG - OTHER] GT SCH ×2 (08:20→20:49)
[2022-12-13] MEDS: HEPARIN SODIUM,PORCINE 5,000 UNITS/ML VIAL SQ SCH ×2 (08:21→21:59)
[2022-12-13] MEDS: [UNRECOGNIZED DRUG - OTHER] TOP SCH ×2 (08:21→20:50)
[2022-12-13] MEDS: ZINC OXIDE OINT 30 GM TUBE TP SCH ×2 (08:21→20:50)
[2022-12-13] MEDS: VITAMINS A AND D OINT 42 GM TUBE TP SCH (08:21)
[2022-12-13] MEDS: REMEDY ESSENTIAL ZINC PASTE 113 GM TOP SCH ×2 (08:21→20:50)
[2022-12-13] MEDS: HYDROGEN PEROXIDE 3% 118 ML BOTTLE TP SCH ×2 (09:00→21:00)
[2022-12-13 09:30] VITALS: O2SAT 98
[2022-12-13] MEDS: JEVITY 1.2 1000 ML LIQUID GT PRN (10:41)
[2022-12-13 19:45] VITALS: O2SAT 99
[2022-12-13 20:36] VITALS: TEMP 97.7
[2022-12-13] MEDS: OMEGA-3 FATTY ACIDS/FISH OIL CAPSULE GT SCH (20:49)
[2022-12-14] MEDS: PANTOPRAZOLE ORAL SUSPENSION 40 MG SUSPDR.PKT GT SCH (06:17)
[2022-12-14] MEDS: CHOLECALCIFEROL 1,000 UNIT TABLET GT SCH (06:17)
[2022-12-14] MEDS: LORATADINE 10 MG TABLET GT SCH (06:17)
[2022-12-14 07:20] VITALS: TEMP 98.6
[2022-12-14] MEDS: DOCUSATE SODIUM 100 MG/10 ML LIQUID UDC GT SCH ×2 (08:19→20:46)
[2022-12-14] MEDS: BACLOFEN 10 MG TABLET GT SCH ×3 (08:19→17:06)
[2022-12-14] MEDS: [UNRECOGNIZED DRUG - OTHER] GT SCH ×2 (08:24→20:46)
[2022-12-14] MEDS: [UNRECOGNIZED DRUG - OTHER] TOP SCH ×2 (09:00→20:47)
[2022-12-14] MEDS: REMEDY ESSENTIAL ZINC PASTE 113 GM TOP SCH ×2 (09:00→20:47)
[2022-12-14] MEDS: HEPARIN SODIUM,PORCINE 5,000 UNITS/ML VIAL SQ SCH ×2 (09:00→21:52)
[2022-12-14] MEDS: ZINC OXIDE OINT 30 GM TUBE TP SCH ×2 (09:00→20:47)
[2022-12-14] MEDS: VITAMINS A AND D OINT 42 GM TUBE TP SCH (09:00)
[2022-12-14] MEDS: HYDROGEN PEROXIDE 3% 118 ML BOTTLE TP SCH ×2 (09:27→21:32)
[2022-12-14 09:30] VITALS: O2SAT 98
[2022-12-14] MEDS: ACETAMINOPHEN 650 MG/20 ML UDC- SA PATIENTS-PAIN ONLY GT PRN (12:14)
[2022-12-14 20:00] VITALS: TEMP 98
[2022-12-14] MEDS: OMEGA-3 FATTY ACIDS/FISH OIL CAPSULE GT SCH (20:46)
[2022-12-14 21:32] VITALS: O2SAT 99
[2022-12-15] MEDS: PANTOPRAZOLE ORAL SUSPENSION 40 MG SUSPDR.PKT GT SCH (05:58)
[2022-12-15] MEDS: CHOLECALCIFEROL 1,000 UNIT TABLET GT SCH (05:58)
[2022-12-15] MEDS: LORATADINE 10 MG TABLET GT SCH (05:58)
[2022-12-15] MEDS: JEVITY 1.2 1000 ML LIQUID GT PRN (05:58)
[2022-12-15 07:19] VITALS: TEMP 98.6
[2022-12-15] MEDS: BISACODYL 10 MG SUPP.RECT RC PRN (07:39)
[2022-12-15] MEDS: DOCUSATE SODIUM 100 MG/10 ML LIQUID UDC GT SCH ×2 (08:29→20:31)
[2022-12-15] MEDS: [UNRECOGNIZED DRUG - OTHER] GT SCH ×2 (08:29→20:31)
[2022-12-15] MEDS: [UNRECOGNIZED DRUG - OTHER] TOP SCH ×2 (08:34→20:31)
[2022-12-15] MEDS: HEPARIN SODIUM,PORCINE 5,000 UNITS/ML VIAL SQ SCH ×2 (08:36→21:00)
[2022-12-15] MEDS: BACLOFEN 10 MG TABLET GT SCH ×3 (08:49→17:30)
[2022-12-15] MEDS: HYDROGEN PEROXIDE 3% 118 ML BOTTLE TP SCH ×2 (09:19→21:22)
[2022-12-15] MEDS: REMEDY ESSENTIAL ZINC PASTE 113 GM TOP SCH ×2 (09:32→20:31)
[2022-12-15] MEDS: VITAMINS A AND D OINT 42 GM TUBE TP SCH (09:33)
[2022-12-15] MEDS: ZINC OXIDE OINT 30 GM TUBE TP SCH ×2 (09:33→20:31)
[2022-12-15 10:30] VITALS: O2SAT 97
[2022-12-15] MEDS: OMEGA-3 FATTY ACIDS/FISH OIL CAPSULE GT SCH (20:31)
[2022-12-15 21:11] VITALS: TEMP 99
[2022-12-15 21:23] VITALS: O2SAT 99
[2022-12-16] MEDS: LORATADINE 10 MG TABLET GT SCH (06:44)
[2022-12-16] MEDS: CHOLECALCIFEROL 1,000 UNIT TABLET GT SCH (06:44)
[2022-12-16] MEDS: PANTOPRAZOLE ORAL SUSPENSION 40 MG SUSPDR.PKT GT SCH (06:44)
[2022-12-16 08:00] VITALS: TEMP 98.8
[2022-12-16] MEDS: DOCUSATE SODIUM 100 MG/10 ML LIQUID UDC GT SCH ×2 (08:30→20:29)
[2022-12-16] MEDS: [UNRECOGNIZED DRUG - OTHER] GT SCH ×2 (08:31→20:29)
[2022-12-16] MEDS: BACLOFEN 10 MG TABLET GT SCH ×3 (08:31→17:21)
[2022-12-16] MEDS: KETOCONAZOLE 2% SHAMPOO 120 ML BOTTLE TP SCH (08:33)
[2022-12-16] MEDS: REMEDY ESSENTIAL ZINC PASTE 113 GM TOP SCH ×2 (08:33→20:29)
[2022-12-16] MEDS: HEPARIN SODIUM,PORCINE 5,000 UNITS/ML VIAL SQ SCH ×2 (08:33→22:00)
[2022-12-16] MEDS: [UNRECOGNIZED DRUG - OTHER] TOP SCH ×2 (08:33→20:29)
[2022-12-16] MEDS: ZINC OXIDE OINT 30 GM TUBE TP SCH ×2 (08:33→20:29)
[2022-12-16] MEDS: VITAMINS A AND D OINT 42 GM TUBE TP SCH (08:33)
[2022-12-16 09:15] VITALS: O2SAT 98
[2022-12-16] MEDS: HYDROGEN PEROXIDE 3% 118 ML BOTTLE TP SCH ×2 (09:16→19:13)
[2022-12-16 20:05] VITALS: O2SAT 99
[2022-12-16 20:16] VITALS: TEMP 98.4
[2022-12-16] MEDS: OMEGA-3 FATTY ACIDS/FISH OIL CAPSULE GT SCH (20:29)
[2022-12-17] MEDS: CHOLECALCIFEROL 1,000 UNIT TABLET GT SCH (05:16)
[2022-12-17] MEDS: LORATADINE 10 MG TABLET GT SCH (05:16)
[2022-12-17] MEDS: PANTOPRAZOLE ORAL SUSPENSION 40 MG SUSPDR.PKT GT SCH (05:16)
[2022-12-17 08:00] VITALS: TEMP 98.8
[2022-12-17] MEDS: DOCUSATE SODIUM 100 MG/10 ML LIQUID UDC GT SCH ×2 (08:32→20:59)
[2022-12-17] MEDS: BACLOFEN 10 MG TABLET GT SCH ×3 (08:32→16:25)
[2022-12-17] MEDS: [UNRECOGNIZED DRUG - OTHER] GT SCH ×2 (08:32→20:59)
[2022-12-17] MEDS: [UNRECOGNIZED DRUG - OTHER] TOP SCH ×2 (08:35→20:59)
[2022-12-17] MEDS: REMEDY ESSENTIAL ZINC PASTE 113 GM TOP SCH ×2 (08:35→20:59)
[2022-12-17] MEDS: VITAMINS A AND D OINT 42 GM TUBE TP SCH (08:35)
[2022-12-17] MEDS: HEPARIN SODIUM,PORCINE 5,000 UNITS/ML VIAL SQ SCH ×2 (08:35→21:51)
[2022-12-17] MEDS: ZINC OXIDE OINT 30 GM TUBE TP SCH ×2 (08:36→20:59)
[2022-12-17] MEDS: HYDROGEN PEROXIDE 3% 118 ML BOTTLE TP SCH ×2 (08:57→19:14)
[2022-12-17 12:33] VITALS: O2SAT 95
[2022-12-17] MEDS: JEVITY 1.2 1000 ML LIQUID GT PRN (18:45)
[2022-12-17 20:00] VITALS: TEMP 97.9; O2SAT 99
[2022-12-17] MEDS: OMEGA-3 FATTY ACIDS/FISH OIL CAPSULE GT SCH (20:59)
[2022-12-18] MEDS: PANTOPRAZOLE ORAL SUSPENSION 40 MG SUSPDR.PKT GT SCH (05:53)
[2022-12-18] MEDS: CHOLECALCIFEROL 1,000 UNIT TABLET GT SCH (05:53)
[2022-12-18] MEDS: LORATADINE 10 MG TABLET GT SCH (05:53)
[2022-12-18 07:15] VITALS: O2SAT 98
[2022-12-18] MEDS: HYDROGEN PEROXIDE 3% 118 ML BOTTLE TP SCH ×2 (07:15→21:18)
[2022-12-18 07:42] VITALS: TEMP 97
[2022-12-18] MEDS: DOCUSATE SODIUM 100 MG/10 ML LIQUID UDC GT SCH ×2 (08:46→20:28)
[2022-12-18] MEDS: [UNRECOGNIZED DRUG - OTHER] GT SCH ×2 (08:46→20:28)
[2022-12-18] MEDS: BACLOFEN 10 MG TABLET GT SCH ×3 (08:46→17:36)
[2022-12-18] MEDS: HEPARIN SODIUM,PORCINE 5,000 UNITS/ML VIAL SQ SCH ×2 (08:51→21:00)
[2022-12-18] MEDS: [UNRECOGNIZED DRUG - OTHER] TOP SCH ×2 (08:51→20:28)
[2022-12-18] MEDS: REMEDY ESSENTIAL ZINC PASTE 113 GM TOP SCH ×2 (08:51→20:28)
[2022-12-18] MEDS: ZINC OXIDE OINT 30 GM TUBE TP SCH ×2 (08:51→20:28)
[2022-12-18] MEDS: VITAMINS A AND D OINT 42 GM TUBE TP SCH (08:51)
[2022-12-18 19:35] VITALS: O2SAT 98
[2022-12-18 20:00] VITALS: TEMP 97.9
[2022-12-18] MEDS: OMEGA-3 FATTY ACIDS/FISH OIL CAPSULE GT SCH (20:28)
[2022-12-19] MEDS: CHOLECALCIFEROL 1,000 UNIT TABLET GT SCH (05:41)
[2022-12-19] MEDS: LORATADINE 10 MG TABLET GT SCH (05:41)
[2022-12-19] MEDS: OMEPRAZOLE 20 MG CAPSULE.DR GT SCH (05:41)
[2022-12-19 07:48] VITALS: TEMP 98.3
[2022-12-19] MEDS: HYDROGEN PEROXIDE 3% 118 ML BOTTLE TP SCH ×2 (08:54→21:19)
[2022-12-19 09:02] VITALS: O2SAT 95
[2022-12-19] MEDS: DOCUSATE SODIUM 100 MG/10 ML LIQUID UDC GT SCH ×2 (09:17→20:23)
[2022-12-19] MEDS: REMEDY ESSENTIAL ZINC PASTE 113 GM TOP SCH ×2 (09:17→20:23)
[2022-12-19] MEDS: [UNRECOGNIZED DRUG - OTHER] GT SCH ×2 (09:17→20:23)
[2022-12-19] MEDS: BACLOFEN 10 MG TABLET GT SCH ×3 (09:17→16:11)
[2022-12-19] MEDS: [UNRECOGNIZED DRUG - OTHER] TOP SCH ×2 (09:17→20:23)
[2022-12-19] MEDS: VITAMINS A AND D OINT 42 GM TUBE TP SCH (09:18)
[2022-12-19] MEDS: ZINC OXIDE OINT 30 GM TUBE TP SCH ×2 (09:18→20:24)
[2022-12-19] MEDS: KETOCONAZOLE 2% SHAMPOO 120 ML BOTTLE TP SCH (09:18)
[2022-12-19] MEDS: HEPARIN SODIUM,PORCINE 5,000 UNITS/ML VIAL SQ SCH ×2 (09:19→21:39)
[2022-12-19] MEDS: JEVITY 1.2 1000 ML LIQUID GT PRN (16:13)
[2022-12-19 20:00] VITALS: TEMP 97.9
[2022-12-19] MEDS: OMEGA-3 FATTY ACIDS/FISH OIL CAPSULE GT SCH (20:23)
[2022-12-19 21:19] VITALS: O2SAT 99
[2022-12-20] MEDS: LORATADINE 10 MG TABLET GT SCH (05:35)
[2022-12-20] MEDS: CHOLECALCIFEROL 1,000 UNIT TABLET GT SCH (05:35)
[2022-12-20] MEDS: OMEPRAZOLE 20 MG CAPSULE.DR GT SCH (05:35)
[2022-12-20 07:36] VITALS: TEMP 98
[2022-12-20] MEDS: [UNRECOGNIZED DRUG - OTHER] TOP SCH ×2 (08:50→20:40)
[2022-12-20] MEDS: [UNRECOGNIZED DRUG - OTHER] GT SCH ×2 (08:50→20:39)
[2022-12-20] MEDS: DOCUSATE SODIUM 100 MG/10 ML LIQUID UDC GT SCH ×2 (08:50→20:39)
[2022-12-20] MEDS: REMEDY ESSENTIAL ZINC PASTE 113 GM TOP SCH ×2 (08:50→20:40)
[2022-12-20] MEDS: BACLOFEN 10 MG TABLET GT SCH ×3 (08:50→17:16)
[2022-12-20] MEDS: VITAMINS A AND D OINT 42 GM TUBE TP SCH (08:50)
[2022-12-20] MEDS: ZINC OXIDE OINT 30 GM TUBE TP SCH ×2 (08:51→20:40)
[2022-12-20] MEDS: HEPARIN SODIUM,PORCINE 5,000 UNITS/ML VIAL SQ SCH ×2 (08:51→20:40)
[2022-12-20 09:20] VITALS: O2SAT 99
[2022-12-20] MEDS: HYDROGEN PEROXIDE 3% 118 ML BOTTLE TP SCH ×2 (09:24→19:22)
[2022-12-20 20:03] VITALS: TEMP 98.3
[2022-12-20 20:05] VITALS: O2SAT 99
[2022-12-20] MEDS: OMEGA-3 FATTY ACIDS/FISH OIL CAPSULE GT SCH (20:39)
[2022-12-21] MEDS: OMEPRAZOLE 20 MG CAPSULE.DR GT SCH (05:26)
[2022-12-21] MEDS: LORATADINE 10 MG TABLET GT SCH (05:26)
[2022-12-21] MEDS: CHOLECALCIFEROL 1,000 UNIT TABLET GT SCH (05:26)
[2022-12-21 07:49] VITALS: TEMP 97.6
[2022-12-21] MEDS: HYDROGEN PEROXIDE 3% 118 ML BOTTLE TP SCH ×2 (08:55→21:28)
[2022-12-21] MEDS: [UNRECOGNIZED DRUG - OTHER] GT SCH ×2 (08:59→20:44)
[2022-12-21] MEDS: BACLOFEN 10 MG TABLET GT SCH ×3 (08:59→17:04)
[2022-12-21] MEDS: DOCUSATE SODIUM 100 MG/10 ML LIQUID UDC GT SCH ×2 (08:59→20:44)
[2022-12-21] MEDS: HEPARIN SODIUM,PORCINE 5,000 UNITS/ML VIAL SQ SCH ×2 (09:00→20:44)
[2022-12-21] MEDS: [UNRECOGNIZED DRUG - OTHER] TOP SCH ×2 (09:01→20:44)
[2022-12-21] MEDS: REMEDY ESSENTIAL ZINC PASTE 113 GM TOP SCH ×2 (09:01→20:44)
[2022-12-21] MEDS: VITAMINS A AND D OINT 42 GM TUBE TP SCH (09:01)
[2022-12-21] MEDS: ZINC OXIDE OINT 30 GM TUBE TP SCH ×2 (09:01→20:45)
[2022-12-21] MEDS: JEVITY 1.2 1000 ML LIQUID GT PRN (09:15)
[2022-12-21 10:30] VITALS: O2SAT 98
[2022-12-21 20:26] VITALS: TEMP 98.2
[2022-12-21] MEDS: OMEGA-3 FATTY ACIDS/FISH OIL CAPSULE GT SCH (20:44)
[2022-12-21 21:01] VITALS: O2SAT 99
[2022-12-22] MEDS: CHOLECALCIFEROL 1,000 UNIT TABLET GT SCH (05:08)
[2022-12-22] MEDS: OMEPRAZOLE 20 MG CAPSULE.DR GT SCH (05:08)
[2022-12-22] MEDS: LORATADINE 10 MG TABLET GT SCH (05:08)
[2022-12-22 08:00] VITALS: TEMP 97.2
[2022-12-22] MEDS: DOCUSATE SODIUM 100 MG/10 ML LIQUID UDC GT SCH ×2 (08:29→20:07)
[2022-12-22] MEDS: BACLOFEN 10 MG TABLET GT SCH ×3 (08:29→16:42)
[2022-12-22] MEDS: [UNRECOGNIZED DRUG - OTHER] GT SCH ×2 (08:30→20:09)
[2022-12-22] MEDS: HEPARIN SODIUM,PORCINE 5,000 UNITS/ML VIAL SQ SCH ×2 (08:34→20:09)
[2022-12-22] MEDS: REMEDY ESSENTIAL ZINC PASTE 113 GM TOP SCH ×2 (08:35→20:11)
[2022-12-22] MEDS: [UNRECOGNIZED DRUG - OTHER] TOP SCH ×2 (08:35→20:11)
[2022-12-22] MEDS: ZINC OXIDE OINT 30 GM TUBE TP SCH ×2 (09:21→20:12)
[2022-12-22] MEDS: VITAMINS A AND D OINT 42 GM TUBE TP SCH (09:21)
[2022-12-22] MEDS: HYDROGEN PEROXIDE 3% 118 ML BOTTLE TP SCH ×2 (09:37→21:02)
[2022-12-22 10:30] VITALS: O2SAT 98
[2022-12-22] MEDS: JEVITY 1.2 1000 ML LIQUID GT PRN (14:29)
[2022-12-22 19:57] VITALS: TEMP 98
[2022-12-22] MEDS: OMEGA-3 FATTY ACIDS/FISH OIL CAPSULE GT SCH (20:08)
[2022-12-22 21:00] VITALS: O2SAT 99
[2022-12-23] MEDS: CHOLECALCIFEROL 1,000 UNIT TABLET GT SCH (05:27)
[2022-12-23] MEDS: OMEPRAZOLE 20 MG CAPSULE.DR GT SCH (05:27)
[2022-12-23] MEDS: LORATADINE 10 MG TABLET GT SCH (05:27)
[2022-12-23 08:00] VITALS: TEMP 97
[2022-12-23] MEDS: [UNRECOGNIZED DRUG - OTHER] GT SCH ×2 (08:41→20:01)
[2022-12-23] MEDS: BACLOFEN 10 MG TABLET GT SCH ×3 (08:41→17:14)
[2022-12-23] MEDS: DOCUSATE SODIUM 100 MG/10 ML LIQUID UDC GT SCH ×2 (08:41→20:01)
[2022-12-23] MEDS: [UNRECOGNIZED DRUG - OTHER] TOP SCH ×2 (08:43→20:04)
[2022-12-23] MEDS: HEPARIN SODIUM,PORCINE 5,000 UNITS/ML VIAL SQ SCH ×2 (08:43→20:02)
[2022-12-23] MEDS: REMEDY ESSENTIAL ZINC PASTE 113 GM TOP SCH ×2 (08:44→20:04)
[2022-12-23] MEDS: VITAMINS A AND D OINT 42 GM TUBE TP SCH (08:44)
[2022-12-23] MEDS: KETOCONAZOLE 2% SHAMPOO 120 ML BOTTLE TP SCH (08:44)
[2022-12-23] MEDS: ZINC OXIDE OINT 30 GM TUBE TP SCH ×2 (08:44→20:04)
[2022-12-23 09:25] VITALS: O2SAT 98; O2SAT 99
[2022-12-23] MEDS: HYDROGEN PEROXIDE 3% 118 ML BOTTLE TP SCH ×2 (09:32→19:17)
[2022-12-23 20:00] VITALS: TEMP 98.6
[2022-12-23] MEDS: OMEGA-3 FATTY ACIDS/FISH OIL CAPSULE GT SCH (20:01)
[2022-12-23 20:59] VITALS: O2SAT 99
[2022-12-24] MEDS: JEVITY 1.2 1000 ML LIQUID GT PRN (01:30)
[2022-12-24] MEDS: CHOLECALCIFEROL 1,000 UNIT TABLET GT SCH (05:25)
[2022-12-24] MEDS: OMEPRAZOLE 20 MG CAPSULE.DR GT SCH (05:25)
[2022-12-24] MEDS: LORATADINE 10 MG TABLET GT SCH (05:25)
[2022-12-24 07:20] VITALS: O2SAT 99
[2022-12-24 08:00] VITALS: TEMP 98.2
[2022-12-24] MEDS: DOCUSATE SODIUM 100 MG/10 ML LIQUID UDC GT SCH ×2 (08:59→20:06)
[2022-12-24] MEDS: BACLOFEN 10 MG TABLET GT SCH ×3 (08:59→17:19)
[2022-12-24] MEDS: [UNRECOGNIZED DRUG - OTHER] GT SCH ×2 (09:00→20:06)
[2022-12-24] MEDS: VITAMINS A AND D OINT 42 GM TUBE TP SCH (09:00)
[2022-12-24] MEDS: HYDROGEN PEROXIDE 3% 118 ML BOTTLE TP SCH ×2 (09:00→19:06)
[2022-12-24] MEDS: ZINC OXIDE OINT 30 GM TUBE TP SCH ×2 (09:00→20:09)
[2022-12-24] MEDS: [UNRECOGNIZED DRUG - OTHER] TOP SCH ×2 (09:00→20:08)
[2022-12-24] MEDS: HEPARIN SODIUM,PORCINE 5,000 UNITS/ML VIAL SQ SCH ×2 (09:01→20:07)
[2022-12-24] MEDS: REMEDY ESSENTIAL ZINC PASTE 113 GM TOP SCH ×2 (09:01→20:08)
[2022-12-24 19:22] VITALS: O2SAT 99
[2022-12-24 20:00] VITALS: TEMP 97.8
[2022-12-24] MEDS: OMEGA-3 FATTY ACIDS/FISH OIL CAPSULE GT SCH (20:06)
[2022-12-25] MEDS: OMEPRAZOLE 20 MG CAPSULE.DR GT SCH (05:24)
[2022-12-25] MEDS: LORATADINE 10 MG TABLET GT SCH (05:24)
[2022-12-25] MEDS: CHOLECALCIFEROL 1,000 UNIT TABLET GT SCH (05:24)
[2022-12-25] MEDS: JEVITY 1.2 1000 ML LIQUID GT PRN (05:27)
[2022-12-25 07:48] VITALS: TEMP 98.4
[2022-12-25] MEDS: HYDROGEN PEROXIDE 3% 118 ML BOTTLE TP SCH ×2 (09:00→21:22)
[2022-12-25] MEDS: [UNRECOGNIZED DRUG - OTHER] GT SCH ×2 (09:14→20:00)
[2022-12-25] MEDS: DOCUSATE SODIUM 100 MG/10 ML LIQUID UDC GT SCH ×2 (09:14→20:00)
[2022-12-25] MEDS: BACLOFEN 10 MG TABLET GT SCH ×3 (09:14→16:03)
[2022-12-25] MEDS: HEPARIN SODIUM,PORCINE 5,000 UNITS/ML VIAL SQ SCH ×2 (09:15→21:00)
[2022-12-25] MEDS: REMEDY ESSENTIAL ZINC PASTE 113 GM TOP SCH ×2 (09:15→20:01)
[2022-12-25] MEDS: [UNRECOGNIZED DRUG - OTHER] TOP SCH ×2 (09:15→20:01)
[2022-12-25] MEDS: VITAMINS A AND D OINT 42 GM TUBE TP SCH (09:15)
[2022-12-25] MEDS: ZINC OXIDE OINT 30 GM TUBE TP SCH ×2 (09:15→20:01)
[2022-12-25 20:00] VITALS: TEMP 97.9
[2022-12-25] MEDS: OMEGA-3 FATTY ACIDS/FISH OIL CAPSULE GT SCH (20:00)
[2022-12-25 21:38] VITALS: O2SAT 99
[2022-12-26] MEDS: CHOLECALCIFEROL 1,000 UNIT TABLET GT SCH (05:24)
[2022-12-26] MEDS: LORATADINE 10 MG TABLET GT SCH (05:24)
[2022-12-26] MEDS: OMEPRAZOLE 20 MG CAPSULE.DR GT SCH (05:24)
[2022-12-26 07:15] VITALS: O2SAT 99
[2022-12-26] MEDS: HYDROGEN PEROXIDE 3% 118 ML BOTTLE TP SCH ×2 (07:15→20:52)
[2022-12-26 07:36] VITALS: TEMP 98.1
[2022-12-26] MEDS: DOCUSATE SODIUM 100 MG/10 ML LIQUID UDC GT SCH ×2 (09:22→21:08)
[2022-12-26] MEDS: [UNRECOGNIZED DRUG - OTHER] GT SCH ×2 (09:23→21:08)
[2022-12-26] MEDS: BACLOFEN 10 MG TABLET GT SCH ×3 (09:23→17:37)
[2022-12-26] MEDS: HEPARIN SODIUM,PORCINE 5,000 UNITS/ML VIAL SQ SCH ×2 (09:25→21:00)
[2022-12-26] MEDS: KETOCONAZOLE 2% SHAMPOO 120 ML BOTTLE TP SCH (09:26)
[2022-12-26] MEDS: REMEDY ESSENTIAL ZINC PASTE 113 GM TOP SCH ×2 (09:26→21:08)
[2022-12-26] MEDS: VITAMINS A AND D OINT 42 GM TUBE TP SCH (09:26)
[2022-12-26] MEDS: ZINC OXIDE OINT 30 GM TUBE TP SCH ×2 (09:26→21:08)
[2022-12-26] MEDS: [UNRECOGNIZED DRUG - OTHER] TOP SCH ×2 (09:26→21:08)
[2022-12-26] MEDS: JEVITY 1.2 1000 ML LIQUID GT PRN (12:50)
[2022-12-26 20:00] VITALS: TEMP 97.9
[2022-12-26 21:00] VITALS: O2SAT 99
[2022-12-26] MEDS: OMEGA-3 FATTY ACIDS/FISH OIL CAPSULE GT SCH (21:08)
[2022-12-27] MEDS: LORATADINE 10 MG TABLET GT SCH (05:39)
[2022-12-27] MEDS: OMEPRAZOLE 20 MG CAPSULE.DR GT SCH (05:39)
[2022-12-27] MEDS: CHOLECALCIFEROL 1,000 UNIT TABLET GT SCH (05:39)
[2022-12-27 07:44] VITALS: TEMP 98
[2022-12-27] MEDS: BACLOFEN 10 MG TABLET GT SCH ×3 (08:55→17:23)
[2022-12-27] MEDS: DOCUSATE SODIUM 100 MG/10 ML LIQUID UDC GT SCH ×2 (08:55→21:19)
[2022-12-27] MEDS: [UNRECOGNIZED DRUG - OTHER] GT SCH ×2 (08:59→21:19)
[2022-12-27] MEDS: HEPARIN SODIUM,PORCINE 5,000 UNITS/ML VIAL SQ SCH ×2 (09:00→21:20)
[2022-12-27] MEDS: HYDROGEN PEROXIDE 3% 118 ML BOTTLE TP SCH ×2 (09:00→21:04)
[2022-12-27] MEDS: ZINC OXIDE OINT 30 GM TUBE TP SCH ×2 (09:00→21:20)
[2022-12-27] MEDS: [UNRECOGNIZED DRUG - OTHER] TOP SCH ×2 (09:00→21:20)
[2022-12-27] MEDS: VITAMINS A AND D OINT 42 GM TUBE TP SCH (09:00)
[2022-12-27] MEDS: REMEDY ESSENTIAL ZINC PASTE 113 GM TOP SCH ×2 (09:00→21:20)
[2022-12-27] MEDS: ACETAMINOPHEN 650 MG/20 ML UDC- SA PATIENTS-PAIN ONLY GT PRN ×2 (09:01→18:35)
[2022-12-27 09:50] VITALS: O2SAT 99
[2022-12-27 20:24] VITALS: TEMP 98.5
[2022-12-27] MEDS: OMEGA-3 FATTY ACIDS/FISH OIL CAPSULE GT SCH (21:19)
[2022-12-27 21:23] VITALS: O2SAT 99
[2022-12-28] MEDS: LORATADINE 10 MG TABLET GT SCH (05:30)
[2022-12-28] MEDS: OMEPRAZOLE 20 MG CAPSULE.DR GT SCH (05:30)
[2022-12-28] MEDS: CHOLECALCIFEROL 1,000 UNIT TABLET GT SCH (05:30)
[2022-12-28 08:00] VITALS: TEMP 98.2
[2022-12-28] MEDS: BACLOFEN 10 MG TABLET GT SCH ×3 (09:45→18:00)
[2022-12-28] MEDS: DOCUSATE SODIUM 100 MG/10 ML LIQUID UDC GT SCH ×2 (09:45→20:37)
[2022-12-28] MEDS: [UNRECOGNIZED DRUG - OTHER] GT SCH ×2 (09:45→20:37)
[2022-12-28] MEDS: [UNRECOGNIZED DRUG - OTHER] TOP SCH ×2 (09:47→20:39)
[2022-12-28] MEDS: ZINC OXIDE OINT 30 GM TUBE TP SCH ×2 (09:47→20:39)
[2022-12-28] MEDS: HEPARIN SODIUM,PORCINE 5,000 UNITS/ML VIAL SQ SCH ×2 (09:47→20:39)
[2022-12-28] MEDS: VITAMINS A AND D OINT 42 GM TUBE TP SCH (09:47)
[2022-12-28] MEDS: REMEDY ESSENTIAL ZINC PASTE 113 GM TOP SCH ×2 (09:47→20:39)
[2022-12-28] MEDS: HYDROGEN PEROXIDE 3% 118 ML BOTTLE TP SCH ×2 (09:49→21:06)
[2022-12-28] MEDS: ACETAMINOPHEN 650 MG/20 ML UDC- SA PATIENTS-PAIN ONLY GT PRN (09:49)
[2022-12-28 10:22] LABS: BASOPHILS % (AUTO) 0.6 % (0.0-2.0); EOSINOPHILS # (AUTO) 0.1 K/uL (0.0-0.7); EOSINOPHILS % (AUTO) 1.7 % (0.0-7.0); HEMATOCRIT 42.8 % (36.7-47.1); HEMOGLOBIN 14.4 g/dL (12.5-16.3); LYMPHOCYTES # (AUTO) 2.2 K/uL (0.8-4.8); LYMPHOCYTES % (AUTO) 28.9 % (20.5-51.5); MEAN CORPUSCULAR HEMOGLOBIN 30.9 uug (23.8-33.4); MEAN CORPUSCULAR HGB CONC 34 g/dL (32.5-36.3); MONOCYTES # (AUTO) 0.6 K/uL (0.1-1.30); MONOCYTES % (AUTO) 7.5 % (0.0-11.0); NEUTROPHILS # (AUTO) 4.7 K/uL (1.8-8.9); NEUTROPHILS % (AUTO) 61.3 % (38.5-71.5); PLATELET COUNT (AUTO) 225 K/uL (152-348); RED BLOOD CELL COUNT(AUTO) 4.65 MIL/uL (4.06-5.63); RED CELL DISTRIBUTION WIDTH 13.2 % (12.1-16.2); WHITE BLOOD COUNT (AUTO) 7.7 K/uL (3.6-10.2)
[2022-12-28 10:36] LABS: DIFFERENTIAL COMMENT 1
[2022-12-28 10:43] LABS: CALCIUM 9.8 mg/dL (8.5-10.1); CREATININE 0.7 mg/dL (0.6-1.3); POTASSIUM 3.8 mmol/L (3.5-5.1)
[2022-12-28 11:32] LABS: *BILIRUBIN,URIN NEGATIVE (NEGATIVE); *BLOOD, URINE NEGATIVE (NEGATIVE); *CLARITY,URINE CLEAR (CLEAR); *COLOR,URINE YELLOW (YELLOW); *KETONES,URINE NEGATIVE (NEGATIVE); *PROTEIN,URINE NEGATIVE (NEGATIVE); *UROBILINOGEN,URINE 0.2 E.U./dl (NORMAL); LEUKOCYTE ESTERASE ,URINE NEGATIVE (NEGATIVE); NITRITE, URINE NEGATIVE (NEGATIVE); PH,URINE 6.5 (5.0-8.0); UGLUCOSE NEGATIVE (NEGATIVE)
[2022-12-28] MEDS: OMEGA-3 FATTY ACIDS/FISH OIL CAPSULE GT SCH (20:37)
[2022-12-28 21:00] VITALS: O2SAT 99
[2022-12-28 21:05] VITALS: TEMP 98.5
[2022-12-29] MEDS: JEVITY 1.2 1000 ML LIQUID GT PRN (04:04)
[2022-12-29] MEDS: OMEPRAZOLE 20 MG CAPSULE.DR GT SCH (05:17)
[2022-12-29] MEDS: CHOLECALCIFEROL 1,000 UNIT TABLET GT SCH (05:17)
[2022-12-29] MEDS: LORATADINE 10 MG TABLET GT SCH (05:17)
[2022-12-29 07:15] VITALS: O2SAT 99
[2022-12-29] MEDS: HYDROGEN PEROXIDE 3% 118 ML BOTTLE TP SCH ×2 (07:15→21:57)
[2022-12-29 08:00] VITALS: TEMP 98.9
[2022-12-29] MEDS: HEPARIN SODIUM,PORCINE 5,000 UNITS/ML VIAL SQ SCH ×2 (09:54→20:14)
[2022-12-29] MEDS: [UNRECOGNIZED DRUG - OTHER] GT SCH ×2 (09:58→20:14)
[2022-12-29] MEDS: BACLOFEN 10 MG TABLET GT SCH ×3 (09:58→17:06)
[2022-12-29] MEDS: DOCUSATE SODIUM 100 MG/10 ML LIQUID UDC GT SCH ×2 (09:59→20:14)
[2022-12-29] MEDS: VITAMINS A AND D OINT 42 GM TUBE TP SCH (09:59)
[2022-12-29] MEDS: [UNRECOGNIZED DRUG - OTHER] TOP SCH ×2 (09:59→20:14)
[2022-12-29] MEDS: REMEDY ESSENTIAL ZINC PASTE 113 GM TOP SCH ×2 (09:59→20:15)
[2022-12-29] MEDS: ZINC OXIDE OINT 30 GM TUBE TP SCH ×2 (10:00→20:15)
[2022-12-29] MEDS: ACETAMINOPHEN 650 MG/20 ML UDC- SA PATIENTS-PAIN ONLY GT PRN (12:44)
[2022-12-29 19:57] VITALS: TEMP 97.9
[2022-12-29] MEDS: OMEGA-3 FATTY ACIDS/FISH OIL CAPSULE GT SCH (20:14)
[2022-12-29 21:57] VITALS: O2SAT 99
[2022-12-30] MEDS: OMEPRAZOLE 20 MG CAPSULE.DR GT SCH (06:18)
[2022-12-30] MEDS: LORATADINE 10 MG TABLET GT SCH (06:18)
[2022-12-30] MEDS: CHOLECALCIFEROL 1,000 UNIT TABLET GT SCH (06:18)
[2022-12-30 08:00] VITALS: TEMP 98.7
[2022-12-30] MEDS: [UNRECOGNIZED DRUG - OTHER] GT SCH ×2 (08:26→20:23)
[2022-12-30] MEDS: DOCUSATE SODIUM 100 MG/10 ML LIQUID UDC GT SCH ×2 (08:26→20:23)
[2022-12-30] MEDS: BACLOFEN 10 MG TABLET GT SCH ×3 (08:26→16:55)
[2022-12-30] MEDS: HEPARIN SODIUM,PORCINE 5,000 UNITS/ML VIAL SQ SCH ×2 (08:30→20:24)
[2022-12-30] MEDS: REMEDY ESSENTIAL ZINC PASTE 113 GM TOP SCH ×2 (08:30→20:24)
[2022-12-30] MEDS: KETOCONAZOLE 2% SHAMPOO 120 ML BOTTLE TP SCH (08:30)
[2022-12-30] MEDS: [UNRECOGNIZED DRUG - OTHER] TOP SCH ×2 (08:30→20:24)
[2022-12-30] MEDS: ZINC OXIDE OINT 30 GM TUBE TP SCH ×2 (08:33→20:24)
[2022-12-30] MEDS: VITAMINS A AND D OINT 42 GM TUBE TP SCH (08:33)
[2022-12-30] MEDS: HYDROGEN PEROXIDE 3% 118 ML BOTTLE TP SCH ×2 (08:33→21:10)
[2022-12-30 09:10] VITALS: O2SAT 99
[2022-12-30] MEDS: OMEGA-3 FATTY ACIDS/FISH OIL CAPSULE GT SCH (20:23)
[2022-12-30 21:10] VITALS: O2SAT 99
[2022-12-30 21:15] VITALS: TEMP 97.9
[2022-12-31] MEDS: OMEPRAZOLE 20 MG CAPSULE.DR GT SCH (05:25)
[2022-12-31] MEDS: LORATADINE 10 MG TABLET GT SCH (05:25)
[2022-12-31] MEDS: CHOLECALCIFEROL 1,000 UNIT TABLET GT SCH (05:25)
[2022-12-31 08:00] VITALS: TEMP 97.8
[2022-12-31] MEDS: [UNRECOGNIZED DRUG - OTHER] GT SCH ×2 (08:34→20:10)
[2022-12-31] MEDS: VITAMINS A AND D OINT 42 GM TUBE TP SCH (08:34)
[2022-12-31] MEDS: BACLOFEN 10 MG TABLET GT SCH ×3 (08:34→17:18)
[2022-12-31] MEDS: REMEDY ESSENTIAL ZINC PASTE 113 GM TOP SCH ×2 (08:34→20:10)
[2022-12-31] MEDS: [UNRECOGNIZED DRUG - OTHER] TOP SCH ×2 (08:34→20:10)
[2022-12-31] MEDS: DOCUSATE SODIUM 100 MG/10 ML LIQUID UDC GT SCH ×2 (08:34→20:10)
[2022-12-31] MEDS: HEPARIN SODIUM,PORCINE 5,000 UNITS/ML VIAL SQ SCH ×2 (08:34→20:10)
[2022-12-31] MEDS: ZINC OXIDE OINT 30 GM TUBE TP SCH ×2 (08:35→20:11)
[2022-12-31] MEDS: HYDROGEN PEROXIDE 3% 118 ML BOTTLE TP SCH ×2 (09:26→19:10)
[2022-12-31 10:50] VITALS: O2SAT 98
[2022-12-31 19:45] VITALS: O2SAT 99
[2022-12-31 19:53] VITALS: TEMP 98.8
[2022-12-31] MEDS: OMEGA-3 FATTY ACIDS/FISH OIL CAPSULE GT SCH (20:10)
[2023-01-01] MEDS: JEVITY 1.2 1000 ML LIQUID GT PRN (01:10)
[2023-01-01] MEDS: LORATADINE 10 MG TABLET GT SCH (06:18)
[2023-01-01] MEDS: CHOLECALCIFEROL 1,000 UNIT TABLET GT SCH (06:18)
[2023-01-01] MEDS: OMEPRAZOLE 20 MG CAPSULE.DR GT SCH (06:18)
[2023-01-01 07:15] VITALS: O2SAT 98
[2023-01-01] MEDS: HYDROGEN PEROXIDE 3% 118 ML BOTTLE TP SCH ×2 (07:15→19:15)
[2023-01-01 07:29] VITALS: TEMP 98.8
[2023-01-01] MEDS: [UNRECOGNIZED DRUG - OTHER] GT SCH ×2 (08:19→21:00)
[2023-01-01] MEDS: BACLOFEN 10 MG TABLET GT SCH ×3 (08:19→17:18)
[2023-01-01] MEDS: DOCUSATE SODIUM 100 MG/10 ML LIQUID UDC GT SCH ×2 (08:19→21:00)
[2023-01-01] MEDS: HEPARIN SODIUM,PORCINE 5,000 UNITS/ML VIAL SQ SCH ×2 (08:20→21:00)
[2023-01-01] MEDS: [UNRECOGNIZED DRUG - OTHER] TOP SCH ×2 (08:20→21:00)
[2023-01-01] MEDS: ZINC OXIDE OINT 30 GM TUBE TP SCH ×2 (08:20→21:00)
[2023-01-01] MEDS: REMEDY ESSENTIAL ZINC PASTE 113 GM TOP SCH ×2 (08:20→21:00)
[2023-01-01] MEDS: VITAMINS A AND D OINT 42 GM TUBE TP SCH (08:20)
[2023-01-01 19:35] VITALS: O2SAT 99
[2023-01-01 20:00] VITALS: TEMP 97.8
[2023-01-01] MEDS: OMEGA-3 FATTY ACIDS/FISH OIL CAPSULE GT SCH (21:00)
[2023-01-02] MEDS: CHOLECALCIFEROL 1,000 UNIT TABLET GT SCH (06:00)
[2023-01-02] MEDS: LORATADINE 10 MG TABLET GT SCH (06:00)
[2023-01-02] MEDS: OMEPRAZOLE 20 MG CAPSULE.DR GT SCH (06:00)
[2023-01-02 07:37] VITALS: TEMP 98.5
[2023-01-02 09:20] VITALS: O2SAT 98
[2023-01-02] MEDS: HYDROGEN PEROXIDE 3% 118 ML BOTTLE TP SCH ×2 (09:20→19:11)
[2023-01-02] MEDS: DOCUSATE SODIUM 100 MG/10 ML LIQUID UDC GT SCH ×2 (09:28→21:27)
[2023-01-02] MEDS: HEPARIN SODIUM,PORCINE 5,000 UNITS/ML VIAL SQ SCH ×2 (09:30→21:33)
[2023-01-02] MEDS: BACLOFEN 10 MG TABLET GT SCH ×3 (09:30→16:57)
[2023-01-02] MEDS: [UNRECOGNIZED DRUG - OTHER] GT SCH ×2 (09:30→21:28)
[2023-01-02] MEDS: [UNRECOGNIZED DRUG - OTHER] TOP SCH ×2 (09:31→21:28)
[2023-01-02] MEDS: REMEDY ESSENTIAL ZINC PASTE 113 GM TOP SCH ×2 (09:31→21:28)
[2023-01-02] MEDS: ZINC OXIDE OINT 30 GM TUBE TP SCH ×2 (09:31→21:28)
[2023-01-02] MEDS: KETOCONAZOLE 2% SHAMPOO 120 ML BOTTLE TP SCH (09:31)
[2023-01-02] MEDS: VITAMINS A AND D OINT 42 GM TUBE TP SCH (09:31)
[2023-01-02 19:45] VITALS: O2SAT 99
[2023-01-02 20:00] VITALS: TEMP 98
[2023-01-02] MEDS: OMEGA-3 FATTY ACIDS/FISH OIL CAPSULE GT SCH (21:27)
[2023-01-03] MEDS: JEVITY 1.2 1000 ML LIQUID GT PRN ×2 (00:41→22:45)
[2023-01-03] MEDS: CHOLECALCIFEROL 1,000 UNIT TABLET GT SCH (06:00)
[2023-01-03] MEDS: OMEPRAZOLE 20 MG CAPSULE.DR GT SCH (06:00)
[2023-01-03] MEDS: LORATADINE 10 MG TABLET GT SCH (06:00)
[2023-01-03 07:40] VITALS: TEMP 98.6
[2023-01-03] MEDS: HYDROGEN PEROXIDE 3% 118 ML BOTTLE TP SCH ×2 (09:03→19:06)
[2023-01-03 09:20] VITALS: O2SAT 98
[2023-01-03] MEDS: [UNRECOGNIZED DRUG - OTHER] GT SCH ×2 (09:26→20:22)
[2023-01-03] MEDS: BACLOFEN 10 MG TABLET GT SCH ×3 (09:26→17:37)
[2023-01-03] MEDS: DOCUSATE SODIUM 100 MG/10 ML LIQUID UDC GT SCH ×2 (09:26→20:21)
[2023-01-03] MEDS: HEPARIN SODIUM,PORCINE 5,000 UNITS/ML VIAL SQ SCH ×2 (09:27→20:22)
[2023-01-03] MEDS: [UNRECOGNIZED DRUG - OTHER] TOP SCH ×2 (09:27→20:22)
[2023-01-03] MEDS: ZINC OXIDE OINT 30 GM TUBE TP SCH ×2 (09:28→20:23)
[2023-01-03] MEDS: VITAMINS A AND D OINT 42 GM TUBE TP SCH (09:28)
[2023-01-03] MEDS: REMEDY ESSENTIAL ZINC PASTE 113 GM TOP SCH ×2 (09:28→20:22)
[2023-01-03 19:53] VITALS: TEMP 98.7
[2023-01-03 20:20] VITALS: O2SAT 99
[2023-01-03] MEDS: OMEGA-3 FATTY ACIDS/FISH OIL CAPSULE GT SCH (20:22)
[2023-01-04] MEDS: LORATADINE 10 MG TABLET GT SCH (05:31)
[2023-01-04] MEDS: CHOLECALCIFEROL 1,000 UNIT TABLET GT SCH (05:32)
[2023-01-04] MEDS: OMEPRAZOLE 20 MG CAPSULE.DR GT SCH (05:32)
[2023-01-04 07:34] VITALS: TEMP 98.8
[2023-01-04] MEDS: DOCUSATE SODIUM 100 MG/10 ML LIQUID UDC GT SCH ×2 (08:49→20:46)
[2023-01-04] MEDS: [UNRECOGNIZED DRUG - OTHER] GT SCH ×2 (08:50→20:46)
[2023-01-04] MEDS: ACETAMINOPHEN 650 MG/20 ML UDC- SA PATIENTS-PAIN ONLY GT PRN (08:50)
[2023-01-04] MEDS: BACLOFEN 10 MG TABLET GT SCH ×3 (08:50→17:36)
[2023-01-04] MEDS: VITAMINS A AND D OINT 42 GM TUBE TP SCH (08:51)
[2023-01-04] MEDS: REMEDY ESSENTIAL ZINC PASTE 113 GM TOP SCH ×2 (08:51→20:47)
[2023-01-04] MEDS: ZINC OXIDE OINT 30 GM TUBE TP SCH ×2 (08:51→20:48)
[2023-01-04] MEDS: [UNRECOGNIZED DRUG - OTHER] TOP SCH ×2 (08:51→20:47)
[2023-01-04] MEDS: HEPARIN SODIUM,PORCINE 5,000 UNITS/ML VIAL SQ SCH ×2 (08:54→20:47)
[2023-01-04] MEDS: HYDROGEN PEROXIDE 3% 118 ML BOTTLE TP SCH ×2 (09:17→19:04)
[2023-01-04 09:20] VITALS: O2SAT 98
[2023-01-04 20:29] VITALS: TEMP 98
[2023-01-04] MEDS: OMEGA-3 FATTY ACIDS/FISH OIL CAPSULE GT SCH (20:46)
[2023-01-04 21:22] VITALS: O2SAT 99
[2023-01-04] MEDS: JEVITY 1.2 1000 ML LIQUID GT PRN (22:29)
[2023-01-05] MEDS: CHOLECALCIFEROL 1,000 UNIT TABLET GT SCH (05:11)
[2023-01-05] MEDS: OMEPRAZOLE 20 MG CAPSULE.DR GT SCH (05:11)
[2023-01-05] MEDS: LORATADINE 10 MG TABLET GT SCH (05:11)
[2023-01-05 07:24] VITALS: TEMP 98.5
[2023-01-05] MEDS: [UNRECOGNIZED DRUG - OTHER] GT SCH ×2 (08:16→21:00)
[2023-01-05] MEDS: HEPARIN SODIUM,PORCINE 5,000 UNITS/ML VIAL SQ SCH ×2 (08:16→21:00)
[2023-01-05] MEDS: DOCUSATE SODIUM 100 MG/10 ML LIQUID UDC GT SCH ×2 (08:16→21:00)
[2023-01-05] MEDS: VITAMINS A AND D OINT 42 GM TUBE TP SCH (08:16)
[2023-01-05] MEDS: [UNRECOGNIZED DRUG - OTHER] TOP SCH ×2 (08:16→21:00)
[2023-01-05] MEDS: ZINC OXIDE OINT 30 GM TUBE TP SCH ×2 (08:16→21:00)
[2023-01-05] MEDS: BACLOFEN 10 MG TABLET GT SCH ×3 (08:16→16:21)
[2023-01-05] MEDS: REMEDY ESSENTIAL ZINC PASTE 113 GM TOP SCH ×2 (08:16→21:00)
[2023-01-05] MEDS: HYDROGEN PEROXIDE 3% 118 ML BOTTLE TP SCH ×2 (08:35→20:45)
[2023-01-05 10:00] VITALS: O2SAT 99
[2023-01-05] MEDS: ACETAMINOPHEN 650 MG/20 ML UDC- SA PATIENTS-PAIN ONLY GT PRN (12:16)
[2023-01-05] MEDS ORDERED: ALBUTEROL SULFATE 2.5 MG/3 ML NEBU NEB PRN (14:15)
[2023-01-05] MEDS: JEVITY 1.2 1000 ML LIQUID GT PRN (18:45)
[2023-01-05 20:00] VITALS: TEMP 97.8
[2023-01-05 20:45] VITALS: O2SAT 99
[2023-01-05] MEDS: OMEGA-3 FATTY ACIDS/FISH OIL CAPSULE GT SCH (21:00)
[2023-01-06] MEDS: OMEPRAZOLE 20 MG CAPSULE.DR GT SCH (06:13)
[2023-01-06] MEDS: LORATADINE 10 MG TABLET GT SCH (06:13)
[2023-01-06] MEDS: CHOLECALCIFEROL 1,000 UNIT TABLET GT SCH (06:13)
[2023-01-06 07:32] VITALS: TEMP 98.7
[2023-01-06] MEDS: HEPARIN SODIUM,PORCINE 5,000 UNITS/ML VIAL SQ SCH ×2 (08:28→20:31)
[2023-01-06] MEDS: BACLOFEN 10 MG TABLET GT SCH ×3 (08:29→17:34)
[2023-01-06] MEDS: [UNRECOGNIZED DRUG - OTHER] GT SCH ×2 (08:29→20:31)
[2023-01-06] MEDS: DOCUSATE SODIUM 100 MG/10 ML LIQUID UDC GT SCH ×2 (08:29→20:31)
[2023-01-06] MEDS: ZINC OXIDE OINT 30 GM TUBE TP SCH ×2 (08:30→20:31)
[2023-01-06] MEDS: KETOCONAZOLE 2% SHAMPOO 120 ML BOTTLE TP SCH (08:30)
[2023-01-06] MEDS: REMEDY ESSENTIAL ZINC PASTE 113 GM TOP SCH ×2 (08:30→20:31)
[2023-01-06] MEDS: VITAMINS A AND D OINT 42 GM TUBE TP SCH (08:30)
[2023-01-06] MEDS: [UNRECOGNIZED DRUG - OTHER] TOP SCH ×2 (08:30→20:31)
[2023-01-06 09:20] VITALS: O2SAT 99
[2023-01-06] MEDS: HYDROGEN PEROXIDE 3% 118 ML BOTTLE TP SCH ×2 (09:28→21:18)
[2023-01-06 19:39] VITALS: TEMP 97.8
[2023-01-06] MEDS: OMEGA-3 FATTY ACIDS/FISH OIL CAPSULE GT SCH (20:31)
[2023-01-06 21:19] VITALS: O2SAT 99
[2023-01-07] MEDS: LORATADINE 10 MG TABLET GT SCH (06:16)
[2023-01-07] MEDS: OMEPRAZOLE 20 MG CAPSULE.DR GT SCH (06:16)
[2023-01-07] MEDS: CHOLECALCIFEROL 1,000 UNIT TABLET GT SCH (06:17)
[2023-01-07 07:15] VITALS: O2SAT 99
[2023-01-07 07:39] VITALS: TEMP 98
[2023-01-07] MEDS: HYDROGEN PEROXIDE 3% 118 ML BOTTLE TP SCH ×2 (09:28→19:06)
[2023-01-07] MEDS: DOCUSATE SODIUM 100 MG/10 ML LIQUID UDC GT SCH ×2 (09:43→20:14)
[2023-01-07] MEDS: BACLOFEN 10 MG TABLET GT SCH ×3 (09:44→16:11)
[2023-01-07] MEDS: [UNRECOGNIZED DRUG - OTHER] GT SCH ×2 (09:48→20:14)
[2023-01-07] MEDS: HEPARIN SODIUM,PORCINE 5,000 UNITS/ML VIAL SQ SCH ×2 (09:50→21:32)
[2023-01-07] MEDS: REMEDY ESSENTIAL ZINC PASTE 113 GM TOP SCH ×2 (09:51→20:14)
[2023-01-07] MEDS: [UNRECOGNIZED DRUG - OTHER] TOP SCH ×2 (09:51→20:14)
[2023-01-07] MEDS: VITAMINS A AND D OINT 42 GM TUBE TP SCH (09:52)
[2023-01-07] MEDS: ZINC OXIDE OINT 30 GM TUBE TP SCH ×2 (09:56→20:14)
[2023-01-07] MEDS: JEVITY 1.2 1000 ML LIQUID GT PRN (12:39)
[2023-01-07 17:15] VITALS: O2SAT 99
[2023-01-07 19:45] VITALS: O2SAT 99
[2023-01-07 19:58] VITALS: TEMP 98.6
[2023-01-07] MEDS: OMEGA-3 FATTY ACIDS/FISH OIL CAPSULE GT SCH (20:14)
[2023-01-08] MEDS: JEVITY 1.2 1000 ML LIQUID GT PRN (05:09)
[2023-01-08] MEDS: OMEPRAZOLE 20 MG CAPSULE.DR GT SCH (05:09)
[2023-01-08] MEDS: LORATADINE 10 MG TABLET GT SCH (05:09)
[2023-01-08] MEDS: CHOLECALCIFEROL 1,000 UNIT TABLET GT SCH (05:09)
[2023-01-08 07:15] VITALS: O2SAT 99
[2023-01-08] MEDS: HYDROGEN PEROXIDE 3% 118 ML BOTTLE TP SCH ×2 (07:15→18:19)
[2023-01-08 07:38] VITALS: TEMP 98.4
[2023-01-08] MEDS: DOCUSATE SODIUM 100 MG/10 ML LIQUID UDC GT SCH ×2 (08:50→21:06)
[2023-01-08] MEDS: BACLOFEN 10 MG TABLET GT SCH ×3 (08:50→17:25)
[2023-01-08] MEDS: [UNRECOGNIZED DRUG - OTHER] GT SCH ×2 (08:50→21:06)
[2023-01-08] MEDS: HEPARIN SODIUM,PORCINE 5,000 UNITS/ML VIAL SQ SCH ×2 (08:52→21:13)
[2023-01-08] MEDS: [UNRECOGNIZED DRUG - OTHER] TOP SCH ×2 (08:55→21:06)
[2023-01-08] MEDS: REMEDY ESSENTIAL ZINC PASTE 113 GM TOP SCH ×2 (08:55→21:06)
[2023-01-08] MEDS: VITAMINS A AND D OINT 42 GM TUBE TP SCH (08:56)
[2023-01-08] MEDS: ZINC OXIDE OINT 30 GM TUBE TP SCH ×2 (08:56→21:06)
[2023-01-08 18:19] VITALS: O2SAT 99
[2023-01-08 20:11] VITALS: TEMP 98.4
[2023-01-08] MEDS: OMEGA-3 FATTY ACIDS/FISH OIL CAPSULE GT SCH (21:06)
[2023-01-08 23:14] VITALS: O2SAT 99
[2023-01-09] MEDS: JEVITY 1.2 1000 ML LIQUID GT PRN (02:38)
[2023-01-09] MEDS: CHOLECALCIFEROL 1,000 UNIT TABLET GT SCH (05:31)
[2023-01-09] MEDS: LORATADINE 10 MG TABLET GT SCH (05:31)
[2023-01-09] MEDS: OMEPRAZOLE 20 MG CAPSULE.DR GT SCH (05:31)
[2023-01-09] MEDS: DOCUSATE SODIUM 100 MG/10 ML LIQUID UDC GT SCH ×2 (08:21→20:06)
[2023-01-09] MEDS: BACLOFEN 10 MG TABLET GT SCH ×3 (08:21→17:55)
[2023-01-09] MEDS: [UNRECOGNIZED DRUG - OTHER] GT SCH ×2 (08:21→20:06)
[2023-01-09] MEDS: VITAMINS A AND D OINT 42 GM TUBE TP SCH (08:22)
[2023-01-09] MEDS: [UNRECOGNIZED DRUG - OTHER] TOP SCH ×2 (08:22→20:08)
[2023-01-09] MEDS: REMEDY ESSENTIAL ZINC PASTE 113 GM TOP SCH ×2 (08:22→20:08)
[2023-01-09] MEDS: KETOCONAZOLE 2% SHAMPOO 120 ML BOTTLE TP SCH (08:22)
[2023-01-09] MEDS: ZINC OXIDE OINT 30 GM TUBE TP SCH ×2 (08:22→20:08)
[2023-01-09] MEDS: HEPARIN SODIUM,PORCINE 5,000 UNITS/ML VIAL SQ SCH ×2 (08:23→20:08)
[2023-01-09 08:24] VITALS: TEMP 98.8
[2023-01-09] MEDS: HYDROGEN PEROXIDE 3% 118 ML BOTTLE TP SCH ×2 (09:41→21:48)
[2023-01-09 10:05] VITALS: O2SAT 99
[2023-01-09] MEDS: OMEGA-3 FATTY ACIDS/FISH OIL CAPSULE GT SCH (20:06)
[2023-01-09 20:11] VITALS: O2SAT 99
[2023-01-09 20:22] VITALS: TEMP 98.8
[2023-01-10] MEDS: JEVITY 1.2 1000 ML LIQUID GT PRN ×2 (01:52→23:23)
[2023-01-10] MEDS: OMEPRAZOLE 20 MG CAPSULE.DR GT SCH (05:42)
[2023-01-10] MEDS: CHOLECALCIFEROL 1,000 UNIT TABLET GT SCH (05:42)
[2023-01-10] MEDS: LORATADINE 10 MG TABLET GT SCH (05:42)
[2023-01-10 07:29] VITALS: TEMP 98.9
[2023-01-10] MEDS: BACLOFEN 10 MG TABLET GT SCH ×3 (08:31→17:25)
[2023-01-10] MEDS: DOCUSATE SODIUM 100 MG/10 ML LIQUID UDC GT SCH ×2 (08:31→20:06)
[2023-01-10] MEDS: [UNRECOGNIZED DRUG - OTHER] GT SCH ×2 (08:32→20:06)
[2023-01-10] MEDS: HEPARIN SODIUM,PORCINE 5,000 UNITS/ML VIAL SQ SCH ×2 (08:32→20:06)
[2023-01-10] MEDS: ZINC OXIDE OINT 30 GM TUBE TP SCH ×2 (08:33→20:07)
[2023-01-10] MEDS: [UNRECOGNIZED DRUG - OTHER] TOP SCH ×2 (08:33→20:06)
[2023-01-10] MEDS: REMEDY ESSENTIAL ZINC PASTE 113 GM TOP SCH ×2 (08:33→20:07)
[2023-01-10] MEDS: VITAMINS A AND D OINT 42 GM TUBE TP SCH (08:33)
[2023-01-10 09:18] VITALS: O2SAT 99
[2023-01-10] MEDS: HYDROGEN PEROXIDE 3% 118 ML BOTTLE TP SCH ×2 (09:19→22:53)
[2023-01-10 19:50] VITALS: TEMP 98.4
[2023-01-10] MEDS: OMEGA-3 FATTY ACIDS/FISH OIL CAPSULE GT SCH (20:06)
[2023-01-10 20:37] VITALS: O2SAT 99
[2023-01-11] MEDS: OMEPRAZOLE 20 MG CAPSULE.DR GT SCH (05:25)
[2023-01-11] MEDS: CHOLECALCIFEROL 1,000 UNIT TABLET GT SCH (05:25)
[2023-01-11] MEDS: LORATADINE 10 MG TABLET GT SCH (05:25)
[2023-01-11 07:38] VITALS: TEMP 98.3
[2023-01-11 09:20] VITALS: O2SAT 99
[2023-01-11] MEDS: HYDROGEN PEROXIDE 3% 118 ML BOTTLE TP SCH ×2 (09:49→21:31)
[2023-01-11] MEDS: BACLOFEN 10 MG TABLET GT SCH ×3 (09:57→17:40)
[2023-01-11] MEDS: DOCUSATE SODIUM 100 MG/10 ML LIQUID UDC GT SCH ×2 (09:57→20:17)
[2023-01-11] MEDS: [UNRECOGNIZED DRUG - OTHER] GT SCH ×2 (09:58→20:19)
[2023-01-11] MEDS: VITAMINS A AND D OINT 42 GM TUBE TP SCH (09:59)
[2023-01-11] MEDS: [UNRECOGNIZED DRUG - OTHER] TOP SCH ×2 (09:59→20:21)
[2023-01-11] MEDS: REMEDY ESSENTIAL ZINC PASTE 113 GM TOP SCH ×2 (09:59→20:22)
[2023-01-11] MEDS: ZINC OXIDE OINT 30 GM TUBE TP SCH ×2 (09:59→20:22)
[2023-01-11] MEDS: HEPARIN SODIUM,PORCINE 5,000 UNITS/ML VIAL SQ SCH ×2 (11:08→20:21)
[2023-01-11 19:20] VITALS: O2SAT 99
[2023-01-11 19:55] VITALS: TEMP 98.3
[2023-01-11] MEDS: OMEGA-3 FATTY ACIDS/FISH OIL CAPSULE GT SCH (20:18)
[2023-01-12] MEDS: JEVITY 1.2 1000 ML LIQUID GT PRN ×2 (01:30→23:30)
[2023-01-12] MEDS: LORATADINE 10 MG TABLET GT SCH (06:48)
[2023-01-12] MEDS: OMEPRAZOLE 20 MG CAPSULE.DR GT SCH (06:49)
[2023-01-12] MEDS: CHOLECALCIFEROL 1,000 UNIT TABLET GT SCH (06:49)
[2023-01-12 07:15] VITALS: O2SAT 99
[2023-01-12] MEDS: HYDROGEN PEROXIDE 3% 118 ML BOTTLE TP SCH ×2 (07:15→19:12)
[2023-01-12 07:29] VITALS: TEMP 98.3
[2023-01-12] MEDS: DOCUSATE SODIUM 100 MG/10 ML LIQUID UDC GT SCH ×2 (08:36→21:17)
[2023-01-12] MEDS: BACLOFEN 10 MG TABLET GT SCH ×3 (08:36→17:43)
[2023-01-12] MEDS: [UNRECOGNIZED DRUG - OTHER] GT SCH ×2 (08:37→21:18)
[2023-01-12] MEDS: HEPARIN SODIUM,PORCINE 5,000 UNITS/ML VIAL SQ SCH ×2 (08:37→21:19)
[2023-01-12] MEDS: REMEDY ESSENTIAL ZINC PASTE 113 GM TOP SCH ×2 (08:38→21:22)
[2023-01-12] MEDS: [UNRECOGNIZED DRUG - OTHER] TOP SCH ×2 (08:38→21:22)
[2023-01-12] MEDS: ZINC OXIDE OINT 30 GM TUBE TP SCH ×2 (08:38→21:22)
[2023-01-12] MEDS: VITAMINS A AND D OINT 42 GM TUBE TP SCH (08:38)
[2023-01-12 20:08] VITALS: TEMP 98.6
[2023-01-12 21:14] VITALS: O2SAT 99
[2023-01-12] MEDS: OMEGA-3 FATTY ACIDS/FISH OIL CAPSULE GT SCH (21:18)
[2023-01-13] MEDS: LORATADINE 10 MG TABLET GT SCH (05:51)
[2023-01-13] MEDS: OMEPRAZOLE 20 MG CAPSULE.DR GT SCH (05:51)
[2023-01-13] MEDS: CHOLECALCIFEROL 1,000 UNIT TABLET GT SCH (05:51)
[2023-01-13 07:46] VITALS: TEMP 97.6
[2023-01-13] MEDS: HYDROGEN PEROXIDE 3% 118 ML BOTTLE TP SCH ×2 (08:36→20:43)
[2023-01-13 09:15] VITALS: O2SAT 99
[2023-01-13] MEDS: DOCUSATE SODIUM 100 MG/10 ML LIQUID UDC GT SCH ×2 (09:23→21:27)
[2023-01-13] MEDS: BACLOFEN 10 MG TABLET GT SCH ×3 (09:23→17:15)
[2023-01-13] MEDS: [UNRECOGNIZED DRUG - OTHER] GT SCH ×2 (09:24→21:27)
[2023-01-13] MEDS: HEPARIN SODIUM,PORCINE 5,000 UNITS/ML VIAL SQ SCH ×2 (09:25→21:28)
[2023-01-13] MEDS: REMEDY ESSENTIAL ZINC PASTE 113 GM TOP SCH ×2 (09:25→21:31)
[2023-01-13] MEDS: [UNRECOGNIZED DRUG - OTHER] TOP SCH ×2 (09:25→21:31)
[2023-01-13] MEDS: ZINC OXIDE OINT 30 GM TUBE TP SCH ×2 (09:26→21:31)
[2023-01-13] MEDS: VITAMINS A AND D OINT 42 GM TUBE TP SCH (09:26)
[2023-01-13] MEDS: KETOCONAZOLE 2% SHAMPOO 120 ML BOTTLE TP SCH (09:26)
[2023-01-13] MEDS: JEVITY 1.2 1000 ML LIQUID GT PRN (19:00)
[2023-01-13 20:44] VITALS: O2SAT 99
[2023-01-13] MEDS: OMEGA-3 FATTY ACIDS/FISH OIL CAPSULE GT SCH (21:27)
[2023-01-13 22:01] VITALS: TEMP 97.7
[2023-01-14] MEDS: LORATADINE 10 MG TABLET GT SCH (06:17)
[2023-01-14] MEDS: CHOLECALCIFEROL 1,000 UNIT TABLET GT SCH (06:17)
[2023-01-14] MEDS: OMEPRAZOLE 20 MG CAPSULE.DR GT SCH (06:17)
[2023-01-14 07:15] VITALS: O2SAT 99
[2023-01-14 08:00] VITALS: TEMP 98.1
[2023-01-14] MEDS: HYDROGEN PEROXIDE 3% 118 ML BOTTLE TP SCH ×2 (08:12→21:10)
[2023-01-14] MEDS: DOCUSATE SODIUM 100 MG/10 ML LIQUID UDC GT SCH ×2 (09:26→21:21)
[2023-01-14] MEDS: BACLOFEN 10 MG TABLET GT SCH ×3 (09:26→16:21)
[2023-01-14] MEDS: [UNRECOGNIZED DRUG - OTHER] GT SCH ×2 (09:27→21:21)
[2023-01-14] MEDS: [UNRECOGNIZED DRUG - OTHER] TOP SCH ×2 (09:31→21:24)
[2023-01-14] MEDS: REMEDY ESSENTIAL ZINC PASTE 113 GM TOP SCH ×2 (09:31→21:24)
[2023-01-14] MEDS: VITAMINS A AND D OINT 42 GM TUBE TP SCH (09:31)
[2023-01-14] MEDS: ZINC OXIDE OINT 30 GM TUBE TP SCH ×2 (09:32→21:24)
[2023-01-14] MEDS: HEPARIN SODIUM,PORCINE 5,000 UNITS/ML VIAL SQ SCH ×2 (09:33→21:22)
[2023-01-14 20:02] VITALS: O2SAT 99
[2023-01-14 20:43] VITALS: TEMP 98.9
[2023-01-14] MEDS: OMEGA-3 FATTY ACIDS/FISH OIL CAPSULE GT SCH (21:21)
[2023-01-15] MEDS: OMEPRAZOLE 20 MG CAPSULE.DR GT SCH (05:22)
[2023-01-15] MEDS: LORATADINE 10 MG TABLET GT SCH (05:22)
[2023-01-15] MEDS: CHOLECALCIFEROL 1,000 UNIT TABLET GT SCH (05:22)
[2023-01-15 07:15] VITALS: O2SAT 99
[2023-01-15] MEDS: HYDROGEN PEROXIDE 3% 118 ML BOTTLE TP SCH ×2 (07:15→19:09)
[2023-01-15 08:00] VITALS: TEMP 98.8
[2023-01-15] MEDS: HEPARIN SODIUM,PORCINE 5,000 UNITS/ML VIAL SQ SCH ×2 (09:40→23:13)
[2023-01-15] MEDS: BACLOFEN 10 MG TABLET GT SCH ×3 (09:40→17:37)
[2023-01-15] MEDS: REMEDY ESSENTIAL ZINC PASTE 113 GM TOP SCH ×2 (09:40→21:00)
[2023-01-15] MEDS: ZINC OXIDE OINT 30 GM TUBE TP SCH ×2 (09:40→21:00)
[2023-01-15] MEDS: VITAMINS A AND D OINT 42 GM TUBE TP SCH (09:40)
[2023-01-15] MEDS: [UNRECOGNIZED DRUG - OTHER] GT SCH ×2 (09:40→21:00)
[2023-01-15] MEDS: DOCUSATE SODIUM 100 MG/10 ML LIQUID UDC GT SCH ×2 (09:40→21:00)
[2023-01-15] MEDS: [UNRECOGNIZED DRUG - OTHER] TOP SCH ×2 (09:40→21:00)
[2023-01-15] MEDS: JEVITY 1.2 1000 ML LIQUID GT PRN (13:51)
[2023-01-15 20:40] VITALS: TEMP 98.9
[2023-01-15] MEDS: OMEGA-3 FATTY ACIDS/FISH OIL CAPSULE GT SCH (21:00)
[2023-01-15 21:18] VITALS: O2SAT 99
[2023-01-16] MEDS: LORATADINE 10 MG TABLET GT SCH (06:25)
[2023-01-16] MEDS: OMEPRAZOLE 20 MG CAPSULE.DR GT SCH (06:25)
[2023-01-16] MEDS: CHOLECALCIFEROL 1,000 UNIT TABLET GT SCH (06:25)
[2023-01-16] MEDS ORDERED: ONDANSETRON HCL 4 MG TABLET GT PRN (07:30)
[2023-01-16 08:00] VITALS: TEMP 98
[2023-01-16] MEDS: HYDROGEN PEROXIDE 3% 118 ML BOTTLE TP SCH ×2 (09:37→21:00)
[2023-01-16] MEDS: DOCUSATE SODIUM 100 MG/10 ML LIQUID UDC GT SCH ×2 (09:43→21:00)
[2023-01-16] MEDS: [UNRECOGNIZED DRUG - OTHER] GT SCH ×2 (09:43→21:00)
[2023-01-16] MEDS: BACLOFEN 10 MG TABLET GT SCH ×3 (09:43→17:19)
[2023-01-16] MEDS: HEPARIN SODIUM,PORCINE 5,000 UNITS/ML VIAL SQ SCH ×2 (09:45→21:00)
[2023-01-16] MEDS: KETOCONAZOLE 2% SHAMPOO 120 ML BOTTLE TP SCH (09:46)
[2023-01-16] MEDS: REMEDY ESSENTIAL ZINC PASTE 113 GM TOP SCH ×2 (09:46→21:00)
[2023-01-16] MEDS: ZINC OXIDE OINT 30 GM TUBE TP SCH ×2 (09:46→21:00)
[2023-01-16] MEDS: VITAMINS A AND D OINT 42 GM TUBE TP SCH (09:46)
[2023-01-16] MEDS: [UNRECOGNIZED DRUG - OTHER] TOP SCH ×2 (09:46→21:00)
[2023-01-16 10:30] VITALS: O2SAT 99
[2023-01-16 20:23] VITALS: TEMP 97.9
[2023-01-16] MEDS: OMEGA-3 FATTY ACIDS/FISH OIL CAPSULE GT SCH (21:00)
[2023-01-17] MEDS: CHOLECALCIFEROL 1,000 UNIT TABLET GT SCH (06:07)
[2023-01-17] MEDS: OMEPRAZOLE 20 MG CAPSULE.DR GT SCH (06:07)
[2023-01-17] MEDS: LORATADINE 10 MG TABLET GT SCH (06:07)
[2023-01-17 07:44] VITALS: TEMP 98.8
[2023-01-17] MEDS: DOCUSATE SODIUM 100 MG/10 ML LIQUID UDC GT SCH ×2 (08:58→20:17)
[2023-01-17] MEDS: [UNRECOGNIZED DRUG - OTHER] GT SCH ×2 (08:58→20:17)
[2023-01-17] MEDS: BACLOFEN 10 MG TABLET GT SCH ×3 (08:58→17:39)
[2023-01-17] MEDS: ZINC OXIDE OINT 30 GM TUBE TP SCH ×2 (08:59→20:17)
[2023-01-17] MEDS: REMEDY ESSENTIAL ZINC PASTE 113 GM TOP SCH ×2 (08:59→20:17)
[2023-01-17] MEDS: [UNRECOGNIZED DRUG - OTHER] TOP SCH ×2 (08:59→20:17)
[2023-01-17] MEDS: VITAMINS A AND D OINT 42 GM TUBE TP SCH (08:59)
[2023-01-17] MEDS: HEPARIN SODIUM,PORCINE 5,000 UNITS/ML VIAL SQ SCH ×2 (08:59→21:59)
[2023-01-17 09:20] VITALS: O2SAT 99
[2023-01-17] MEDS: HYDROGEN PEROXIDE 3% 118 ML BOTTLE TP SCH ×2 (09:52→21:12)
[2023-01-17 20:05] VITALS: O2SAT 99
[2023-01-17] MEDS: OMEGA-3 FATTY ACIDS/FISH OIL CAPSULE GT SCH (20:17)
[2023-01-17 20:36] VITALS: TEMP 98.5
[2023-01-18] MEDS: CHOLECALCIFEROL 1,000 UNIT TABLET GT SCH (05:40)
[2023-01-18] MEDS: OMEPRAZOLE 20 MG CAPSULE.DR GT SCH (05:40)
[2023-01-18] MEDS: LORATADINE 10 MG TABLET GT SCH (05:40)
[2023-01-18 08:00] VITALS: TEMP 98.2
[2023-01-18] MEDS: DOCUSATE SODIUM 100 MG/10 ML LIQUID UDC GT SCH ×2 (08:28→20:24)
[2023-01-18] MEDS: BACLOFEN 10 MG TABLET GT SCH ×3 (08:29→17:49)
[2023-01-18] MEDS: [UNRECOGNIZED DRUG - OTHER] GT SCH ×2 (08:29→20:24)
[2023-01-18] MEDS: [UNRECOGNIZED DRUG - OTHER] TOP SCH ×2 (08:30→20:24)
[2023-01-18] MEDS: HEPARIN SODIUM,PORCINE 5,000 UNITS/ML VIAL SQ SCH ×2 (08:33→20:25)
[2023-01-18] MEDS: ACETAMINOPHEN 650 MG/20 ML UDC- SA PATIENTS-PAIN ONLY GT PRN (08:36)
[2023-01-18 09:20] VITALS: O2SAT 99
[2023-01-18] MEDS: HYDROGEN PEROXIDE 3% 118 ML BOTTLE TP SCH ×2 (09:22→21:37)
[2023-01-18] MEDS: ZINC OXIDE OINT 30 GM TUBE TP SCH ×2 (09:56→20:24)
[2023-01-18] MEDS: REMEDY ESSENTIAL ZINC PASTE 113 GM TOP SCH ×2 (09:56→20:24)
[2023-01-18] MEDS: VITAMINS A AND D OINT 42 GM TUBE TP SCH (09:56)
[2023-01-18] MEDS: JEVITY 1.2 1000 ML LIQUID GT PRN (17:49)
[2023-01-18 20:06] VITALS: TEMP 97.9
[2023-01-18 20:15] VITALS: O2SAT 99
[2023-01-18] MEDS: OMEGA-3 FATTY ACIDS/FISH OIL CAPSULE GT SCH (20:24)
[2023-01-19] MEDS: LORATADINE 10 MG TABLET GT SCH (05:02)
[2023-01-19] MEDS: CHOLECALCIFEROL 1,000 UNIT TABLET GT SCH (05:02)
[2023-01-19] MEDS: OMEPRAZOLE 20 MG CAPSULE.DR GT SCH (05:02)
[2023-01-19 08:00] VITALS: TEMP 97.5
[2023-01-19] MEDS: [UNRECOGNIZED DRUG - OTHER] GT SCH ×2 (08:15→20:28)
[2023-01-19] MEDS: DOCUSATE SODIUM 100 MG/10 ML LIQUID UDC GT SCH ×2 (08:15→20:28)
[2023-01-19] MEDS: BACLOFEN 10 MG TABLET GT SCH ×3 (08:15→16:46)
[2023-01-19] MEDS: [UNRECOGNIZED DRUG - OTHER] TOP SCH ×2 (08:16→20:28)
[2023-01-19] MEDS: REMEDY ESSENTIAL ZINC PASTE 113 GM TOP SCH ×2 (08:16→20:29)
[2023-01-19] MEDS: ZINC OXIDE OINT 30 GM TUBE TP SCH ×2 (08:16→20:29)
[2023-01-19] MEDS: VITAMINS A AND D OINT 42 GM TUBE TP SCH (08:16)
[2023-01-19] MEDS: HEPARIN SODIUM,PORCINE 5,000 UNITS/ML VIAL SQ SCH ×2 (08:17→20:28)
[2023-01-19] MEDS: HYDROGEN PEROXIDE 3% 118 ML BOTTLE TP SCH ×2 (09:00→21:40)
[2023-01-19 10:40] VITALS: O2SAT 99
[2023-01-19] MEDS: JEVITY 1.2 1000 ML LIQUID GT PRN (13:19)
[2023-01-19 19:59] VITALS: TEMP 97.7
[2023-01-19 20:02] VITALS: O2SAT 99
[2023-01-19] MEDS: OMEGA-3 FATTY ACIDS/FISH OIL CAPSULE GT SCH (20:28)
[2023-01-20] MEDS: LORATADINE 10 MG TABLET GT SCH (05:37)
[2023-01-20] MEDS: CHOLECALCIFEROL 1,000 UNIT TABLET GT SCH (05:37)
[2023-01-20] MEDS: OMEPRAZOLE 20 MG CAPSULE.DR GT SCH (05:37)
[2023-01-20 07:51] VITALS: TEMP 98
[2023-01-20] MEDS: DOCUSATE SODIUM 100 MG/10 ML LIQUID UDC GT SCH ×2 (08:23→20:31)
[2023-01-20] MEDS: [UNRECOGNIZED DRUG - OTHER] GT SCH ×2 (08:24→20:31)
[2023-01-20] MEDS: REMEDY ESSENTIAL ZINC PASTE 113 GM TOP SCH ×2 (08:24→20:32)
[2023-01-20] MEDS: [UNRECOGNIZED DRUG - OTHER] TOP SCH ×2 (08:24→20:31)
[2023-01-20] MEDS: BACLOFEN 10 MG TABLET GT SCH ×3 (08:24→17:53)
[2023-01-20] MEDS: HEPARIN SODIUM,PORCINE 5,000 UNITS/ML VIAL SQ SCH ×2 (08:25→20:31)
[2023-01-20] MEDS: VITAMINS A AND D OINT 42 GM TUBE TP SCH (08:25)
[2023-01-20] MEDS: KETOCONAZOLE 2% SHAMPOO 120 ML BOTTLE TP SCH (08:25)
[2023-01-20] MEDS: ZINC OXIDE OINT 30 GM TUBE TP SCH ×2 (08:25→20:32)
[2023-01-20] MEDS: HYDROGEN PEROXIDE 3% 118 ML BOTTLE TP SCH ×2 (08:35→19:07)
[2023-01-20 09:25] VITALS: O2SAT 99
[2023-01-20] MEDS: OMEGA-3 FATTY ACIDS/FISH OIL CAPSULE GT SCH (20:31)
[2023-01-20 21:00] VITALS: O2SAT 99
[2023-01-21] MEDS: JEVITY 1.2 1000 ML LIQUID GT PRN (04:00)
[2023-01-21] MEDS: OMEPRAZOLE 20 MG CAPSULE.DR GT SCH (05:30)
[2023-01-21] MEDS: LORATADINE 10 MG TABLET GT SCH (05:30)
[2023-01-21] MEDS: CHOLECALCIFEROL 1,000 UNIT TABLET GT SCH (05:30)
[2023-01-21 07:57] VITALS: TEMP 98.4
[2023-01-21] MEDS: HYDROGEN PEROXIDE 3% 118 ML BOTTLE TP SCH ×2 (08:09→21:00)
[2023-01-21] MEDS: REMEDY ESSENTIAL ZINC PASTE 113 GM TOP SCH ×2 (09:00→20:52)
[2023-01-21] MEDS: DOCUSATE SODIUM 100 MG/10 ML LIQUID UDC GT SCH ×2 (09:00→20:51)
[2023-01-21] MEDS: [UNRECOGNIZED DRUG - OTHER] TOP SCH ×2 (09:00→20:52)
[2023-01-21] MEDS: BACLOFEN 10 MG TABLET GT SCH ×3 (09:00→17:00)
[2023-01-21] MEDS: VITAMINS A AND D OINT 42 GM TUBE TP SCH (09:00)
[2023-01-21] MEDS: ZINC OXIDE OINT 30 GM TUBE TP SCH ×2 (09:00→20:52)
[2023-01-21] MEDS: HEPARIN SODIUM,PORCINE 5,000 UNITS/ML VIAL SQ SCH ×2 (09:00→20:51)
[2023-01-21] MEDS: [UNRECOGNIZED DRUG - OTHER] GT SCH ×2 (09:00→20:51)
[2023-01-21 10:30] VITALS: O2SAT 99
[2023-01-21 19:30] VITALS: O2SAT 99
[2023-01-21 20:00] VITALS: TEMP 98.7
[2023-01-21] MEDS: OMEGA-3 FATTY ACIDS/FISH OIL CAPSULE GT SCH (20:51)
[2023-01-22] MEDS: LORATADINE 10 MG TABLET GT SCH (06:04)
[2023-01-22] MEDS: CHOLECALCIFEROL 1,000 UNIT TABLET GT SCH (06:05)
[2023-01-22] MEDS: OMEPRAZOLE 20 MG CAPSULE.DR GT SCH (06:05)
[2023-01-22 07:41] VITALS: TEMP 98.9
[2023-01-22 07:55] VITALS: O2SAT 99
[2023-01-22] MEDS: HYDROGEN PEROXIDE 3% 118 ML BOTTLE TP SCH ×2 (07:55→23:18)
[2023-01-22] MEDS: HEPARIN SODIUM,PORCINE 5,000 UNITS/ML VIAL SQ SCH ×2 (08:39→21:00)
[2023-01-22] MEDS: [UNRECOGNIZED DRUG - OTHER] GT SCH ×2 (08:40→21:00)
[2023-01-22] MEDS: BACLOFEN 10 MG TABLET GT SCH ×3 (08:40→16:22)
[2023-01-22] MEDS: DOCUSATE SODIUM 100 MG/10 ML LIQUID UDC GT SCH ×2 (08:40→21:00)
[2023-01-22] MEDS: REMEDY ESSENTIAL ZINC PASTE 113 GM TOP SCH ×2 (08:40→21:00)
[2023-01-22] MEDS: VITAMINS A AND D OINT 42 GM TUBE TP SCH (08:40)
[2023-01-22] MEDS: [UNRECOGNIZED DRUG - OTHER] TOP SCH ×2 (08:40→21:00)
[2023-01-22] MEDS: ZINC OXIDE OINT 30 GM TUBE TP SCH ×2 (08:40→21:00)
[2023-01-22] MEDS: JEVITY 1.2 1000 ML LIQUID GT PRN (16:23)
[2023-01-22 19:53] VITALS: O2SAT 99
[2023-01-22 20:53] VITALS: TEMP 98
[2023-01-22] MEDS: OMEGA-3 FATTY ACIDS/FISH OIL CAPSULE GT SCH (21:00)
[2023-01-23] MEDS: CHOLECALCIFEROL 1,000 UNIT TABLET GT SCH (06:23)
[2023-01-23] MEDS: OMEPRAZOLE 20 MG CAPSULE.DR GT SCH (06:24)
[2023-01-23] MEDS: LORATADINE 10 MG TABLET GT SCH (06:24)
[2023-01-23 07:15] VITALS: O2SAT 99
[2023-01-23 07:35] VITALS: TEMP 98.8
[2023-01-23 08:15] VITALS: O2SAT 98
[2023-01-23] MEDS: [UNRECOGNIZED DRUG - OTHER] GT SCH ×2 (09:02→21:09)
[2023-01-23] MEDS: DOCUSATE SODIUM 100 MG/10 ML LIQUID UDC GT SCH ×2 (09:02→21:09)
[2023-01-23] MEDS: BACLOFEN 10 MG TABLET GT SCH ×3 (09:02→17:36)
[2023-01-23] MEDS: HEPARIN SODIUM,PORCINE 5,000 UNITS/ML VIAL SQ SCH ×2 (09:04→21:00)
[2023-01-23] MEDS: KETOCONAZOLE 2% SHAMPOO 120 ML BOTTLE TP SCH (09:07)
[2023-01-23] MEDS: ZINC OXIDE OINT 30 GM TUBE TP SCH ×2 (09:07→21:10)
[2023-01-23] MEDS: REMEDY ESSENTIAL ZINC PASTE 113 GM TOP SCH ×2 (09:07→21:10)
[2023-01-23] MEDS: VITAMINS A AND D OINT 42 GM TUBE TP SCH (09:07)
[2023-01-23] MEDS: [UNRECOGNIZED DRUG - OTHER] TOP SCH ×2 (09:07→21:09)
[2023-01-23] MEDS: JEVITY 1.2 1000 ML LIQUID GT PRN (09:14)
[2023-01-23] MEDS: HYDROGEN PEROXIDE 3% 118 ML BOTTLE TP SCH ×2 (09:41→21:03)
[2023-01-23 20:47] VITALS: TEMP 98
[2023-01-23 21:08] VITALS: O2SAT 99
[2023-01-23] MEDS: OMEGA-3 FATTY ACIDS/FISH OIL CAPSULE GT SCH (21:09)
[2023-01-24] MEDS: JEVITY 1.2 1000 ML LIQUID GT PRN (04:01)
[2023-01-24] MEDS: LORATADINE 10 MG TABLET GT SCH (05:53)
[2023-01-24] MEDS: OMEPRAZOLE 20 MG CAPSULE.DR GT SCH (05:53)
[2023-01-24] MEDS: CHOLECALCIFEROL 1,000 UNIT TABLET GT SCH (05:53)
[2023-01-24 07:47] VITALS: TEMP 97.8
[2023-01-24] MEDS: ZINC OXIDE OINT 30 GM TUBE TP SCH ×2 (09:12→21:00)
[2023-01-24] MEDS: VITAMINS A AND D OINT 42 GM TUBE TP SCH (09:12)
[2023-01-24] MEDS: [UNRECOGNIZED DRUG - OTHER] GT SCH ×2 (09:12→21:00)
[2023-01-24] MEDS: BACLOFEN 10 MG TABLET GT SCH ×3 (09:12→17:14)
[2023-01-24] MEDS: HEPARIN SODIUM,PORCINE 5,000 UNITS/ML VIAL SQ SCH ×2 (09:12→21:00)
[2023-01-24] MEDS: [UNRECOGNIZED DRUG - OTHER] TOP SCH ×2 (09:12→21:00)
[2023-01-24] MEDS: REMEDY ESSENTIAL ZINC PASTE 113 GM TOP SCH ×2 (09:12→21:00)
[2023-01-24] MEDS: DOCUSATE SODIUM 100 MG/10 ML LIQUID UDC GT SCH ×2 (09:12→21:00)
[2023-01-24 09:25] VITALS: O2SAT 99
[2023-01-24] MEDS: HYDROGEN PEROXIDE 3% 118 ML BOTTLE TP SCH ×2 (09:40→21:00)
[2023-01-24 19:31] VITALS: O2SAT 99
[2023-01-24 20:12] VITALS: TEMP 98.8
[2023-01-24] MEDS: OMEGA-3 FATTY ACIDS/FISH OIL CAPSULE GT SCH (21:00)
[2023-01-25] MEDS: CHOLECALCIFEROL 1,000 UNIT TABLET GT SCH (06:00)
[2023-01-25] MEDS: LORATADINE 10 MG TABLET GT SCH (06:00)
[2023-01-25] MEDS: OMEPRAZOLE 20 MG CAPSULE.DR GT SCH (06:00)
[2023-01-25 07:30] VITALS: TEMP 98
[2023-01-25] MEDS: DOCUSATE SODIUM 100 MG/10 ML LIQUID UDC GT SCH ×2 (08:40→20:15)
[2023-01-25] MEDS: HEPARIN SODIUM,PORCINE 5,000 UNITS/ML VIAL SQ SCH ×2 (08:40→20:18)
[2023-01-25] MEDS: [UNRECOGNIZED DRUG - OTHER] GT SCH ×2 (08:40→20:16)
[2023-01-25] MEDS: BACLOFEN 10 MG TABLET GT SCH ×3 (08:40→17:35)
[2023-01-25] MEDS: VITAMINS A AND D OINT 42 GM TUBE TP SCH (08:41)
[2023-01-25] MEDS: [UNRECOGNIZED DRUG - OTHER] TOP SCH ×2 (08:41→20:21)
[2023-01-25] MEDS: REMEDY ESSENTIAL ZINC PASTE 113 GM TOP SCH ×2 (08:41→20:21)
[2023-01-25] MEDS: ZINC OXIDE OINT 30 GM TUBE TP SCH ×2 (08:41→20:21)
[2023-01-25] MEDS: HYDROGEN PEROXIDE 3% 118 ML BOTTLE TP SCH ×2 (09:18→21:13)
[2023-01-25] MEDS ORDERED: BENZOYL PEROXIDE 5% 60 GM GEL..GRAM. TP SCH (17:00)
[2023-01-25] MEDS: BENZOYL PEROXIDE 10% GEL 60 GM TUBE TP SCH (18:22)
[2023-01-25 19:20] VITALS: O2SAT 99
[2023-01-25 19:59] VITALS: TEMP 99.2
[2023-01-25] MEDS: OMEGA-3 FATTY ACIDS/FISH OIL CAPSULE GT SCH (20:15)
[2023-01-26] MEDS: OMEPRAZOLE 20 MG CAPSULE.DR GT SCH (05:12)
[2023-01-26] MEDS: CHOLECALCIFEROL 1,000 UNIT TABLET GT SCH (05:12)
[2023-01-26] MEDS: LORATADINE 10 MG TABLET GT SCH (05:12)
[2023-01-26] MEDS: HYDROGEN PEROXIDE 3% 118 ML BOTTLE TP SCH ×2 (08:13→19:25)
[2023-01-26] MEDS: DOCUSATE SODIUM 100 MG/10 ML LIQUID UDC GT SCH ×2 (08:20→20:07)
[2023-01-26] MEDS: [UNRECOGNIZED DRUG - OTHER] GT SCH ×2 (08:20→20:08)
[2023-01-26] MEDS: REMEDY ESSENTIAL ZINC PASTE 113 GM TOP SCH ×2 (08:20→20:08)
[2023-01-26] MEDS: [UNRECOGNIZED DRUG - OTHER] TOP SCH ×2 (08:20→20:08)
[2023-01-26] MEDS: BACLOFEN 10 MG TABLET GT SCH ×3 (08:20→17:02)
[2023-01-26] MEDS: VITAMINS A AND D OINT 42 GM TUBE TP SCH (08:20)
[2023-01-26] MEDS: ZINC OXIDE OINT 30 GM TUBE TP SCH ×2 (08:21→20:08)
[2023-01-26] MEDS: HEPARIN SODIUM,PORCINE 5,000 UNITS/ML VIAL SQ SCH ×2 (09:00→20:22)
[2023-01-26 09:14] VITALS: TEMP 98.8
[2023-01-26] MEDS: BENZOYL PEROXIDE 10% GEL 60 GM TUBE TP SCH (17:02)
[2023-01-26] MEDS: JEVITY 1.2 1000 ML LIQUID GT PRN (17:27)
[2023-01-26 19:25] VITALS: O2SAT 99
[2023-01-26 19:50] VITALS: TEMP 98.2
[2023-01-26] MEDS: OMEGA-3 FATTY ACIDS/FISH OIL CAPSULE GT SCH (20:08)
[2023-01-27] MEDS: CHOLECALCIFEROL 1,000 UNIT TABLET GT SCH (06:06)
[2023-01-27] MEDS: OMEPRAZOLE 20 MG CAPSULE.DR GT SCH (06:06)
[2023-01-27] MEDS: LORATADINE 10 MG TABLET GT SCH (06:06)
[2023-01-27] MEDS: REMEDY ESSENTIAL ZINC PASTE 113 GM TOP SCH ×2 (08:32→20:26)
[2023-01-27] MEDS: BENZOYL PEROXIDE 10% GEL 60 GM TUBE TP SCH ×2 (08:32→17:43)
[2023-01-27] MEDS: [UNRECOGNIZED DRUG - OTHER] TOP SCH ×2 (08:32→20:26)
[2023-01-27] MEDS: DOCUSATE SODIUM 100 MG/10 ML LIQUID UDC GT SCH ×2 (08:32→20:25)
[2023-01-27] MEDS: [UNRECOGNIZED DRUG - OTHER] GT SCH ×2 (08:32→20:25)
[2023-01-27] MEDS: BACLOFEN 10 MG TABLET GT SCH ×3 (08:32→17:42)
[2023-01-27] MEDS: ZINC OXIDE OINT 30 GM TUBE TP SCH ×2 (08:33→20:26)
[2023-01-27] MEDS: VITAMINS A AND D OINT 42 GM TUBE TP SCH (08:33)
[2023-01-27] MEDS: KETOCONAZOLE 2% SHAMPOO 120 ML BOTTLE TP SCH (08:33)
[2023-01-27] MEDS: HEPARIN SODIUM,PORCINE 5,000 UNITS/ML VIAL SQ SCH ×2 (08:34→20:25)
[2023-01-27 09:09] VITALS: TEMP 98
[2023-01-27] MEDS: HYDROGEN PEROXIDE 3% 118 ML BOTTLE TP SCH ×2 (09:14→19:20)
[2023-01-27] MEDS: JEVITY 1.2 1000 ML LIQUID GT PRN (12:55)
[2023-01-27 19:20] VITALS: O2SAT 99
[2023-01-27 19:52] VITALS: TEMP 98.3
[2023-01-27] MEDS: OMEGA-3 FATTY ACIDS/FISH OIL CAPSULE GT SCH (20:25)
[2023-01-28] MEDS: OMEPRAZOLE 20 MG CAPSULE.DR GT SCH (05:54)
[2023-01-28] MEDS: LORATADINE 10 MG TABLET GT SCH (05:54)
[2023-01-28] MEDS: CHOLECALCIFEROL 1,000 UNIT TABLET GT SCH (05:54)
[2023-01-28] MEDS: HYDROGEN PEROXIDE 3% 118 ML BOTTLE TP SCH ×2 (07:29→22:02)
[2023-01-28 08:10] VITALS: TEMP 97.8
[2023-01-28] MEDS: DOCUSATE SODIUM 100 MG/10 ML LIQUID UDC GT SCH ×2 (09:00→20:56)
[2023-01-28] MEDS: [UNRECOGNIZED DRUG - OTHER] GT SCH ×2 (09:00→20:56)
[2023-01-28] MEDS: [UNRECOGNIZED DRUG - OTHER] TOP SCH ×2 (09:00→20:56)
[2023-01-28] MEDS: BACLOFEN 10 MG TABLET GT SCH ×3 (09:00→17:30)
[2023-01-28] MEDS: HEPARIN SODIUM,PORCINE 5,000 UNITS/ML VIAL SQ SCH ×2 (09:00→20:56)
[2023-01-28] MEDS: BENZOYL PEROXIDE 10% GEL 60 GM TUBE TP SCH ×2 (09:00→17:30)
[2023-01-28] MEDS: REMEDY ESSENTIAL ZINC PASTE 113 GM TOP SCH ×2 (09:00→20:56)
[2023-01-28] MEDS: ZINC OXIDE OINT 30 GM TUBE TP SCH ×2 (09:00→20:57)
[2023-01-28] MEDS: VITAMINS A AND D OINT 42 GM TUBE TP SCH (09:00)
[2023-01-28 11:08] VITALS: O2SAT 98
[2023-01-28 19:58] VITALS: O2SAT 99
[2023-01-28 20:00] VITALS: TEMP 97.8
[2023-01-28] MEDS: OMEGA-3 FATTY ACIDS/FISH OIL CAPSULE GT SCH (20:56)
[2023-01-29] MEDS: JEVITY 1.2 1000 ML LIQUID GT PRN (02:52)
[2023-01-29] MEDS: CHOLECALCIFEROL 1,000 UNIT TABLET GT SCH (05:06)
[2023-01-29] MEDS: LORATADINE 10 MG TABLET GT SCH (05:06)
[2023-01-29] MEDS: OMEPRAZOLE 20 MG CAPSULE.DR GT SCH (05:06)
[2023-01-29 07:21] VITALS: O2SAT 98
[2023-01-29 07:43] VITALS: TEMP 98.9
[2023-01-29] MEDS: HYDROGEN PEROXIDE 3% 118 ML BOTTLE TP SCH ×2 (09:08→19:16)
[2023-01-29] MEDS: DOCUSATE SODIUM 100 MG/10 ML LIQUID UDC GT SCH ×2 (09:48→20:16)
[2023-01-29] MEDS: BACLOFEN 10 MG TABLET GT SCH ×3 (09:49→17:47)
[2023-01-29] MEDS: [UNRECOGNIZED DRUG - OTHER] GT SCH ×2 (09:51→20:16)
[2023-01-29] MEDS: HEPARIN SODIUM,PORCINE 5,000 UNITS/ML VIAL SQ SCH ×2 (09:52→20:18)
[2023-01-29] MEDS: REMEDY ESSENTIAL ZINC PASTE 113 GM TOP SCH ×2 (09:53→20:19)
[2023-01-29] MEDS: VITAMINS A AND D OINT 42 GM TUBE TP SCH (09:53)
[2023-01-29] MEDS: ZINC OXIDE OINT 30 GM TUBE TP SCH ×2 (09:53→20:19)
[2023-01-29] MEDS: [UNRECOGNIZED DRUG - OTHER] TOP SCH ×2 (09:53→20:18)
[2023-01-29] MEDS: BENZOYL PEROXIDE 10% GEL 60 GM TUBE TP SCH ×2 (09:53→17:47)
[2023-01-29 20:00] VITALS: TEMP 97.8
[2023-01-29] MEDS: OMEGA-3 FATTY ACIDS/FISH OIL CAPSULE GT SCH (20:16)
[2023-01-29 21:11] VITALS: O2SAT 98
[2023-01-30] MEDS: JEVITY 1.2 1000 ML LIQUID GT PRN ×2 (01:33→17:52)
[2023-01-30] MEDS: CHOLECALCIFEROL 1,000 UNIT TABLET GT SCH (05:50)
[2023-01-30] MEDS: LORATADINE 10 MG TABLET GT SCH (05:50)
[2023-01-30] MEDS: OMEPRAZOLE 20 MG CAPSULE.DR GT SCH (05:50)
[2023-01-30 07:47] VITALS: TEMP 99.1
[2023-01-30] MEDS: HYDROGEN PEROXIDE 3% 118 ML BOTTLE TP SCH ×2 (09:35→21:02)
[2023-01-30] MEDS: DOCUSATE SODIUM 100 MG/10 ML LIQUID UDC GT SCH ×2 (09:38→21:38)
[2023-01-30] MEDS: BACLOFEN 10 MG TABLET GT SCH ×3 (09:42→17:51)
[2023-01-30] MEDS: [UNRECOGNIZED DRUG - OTHER] GT SCH ×2 (09:42→21:39)
[2023-01-30] MEDS: VITAMINS A AND D OINT 42 GM TUBE TP SCH (09:45)
[2023-01-30] MEDS: REMEDY ESSENTIAL ZINC PASTE 113 GM TOP SCH ×2 (09:45→21:39)
[2023-01-30] MEDS: BENZOYL PEROXIDE 10% GEL 60 GM TUBE TP SCH ×2 (09:45→17:51)
[2023-01-30] MEDS: KETOCONAZOLE 2% SHAMPOO 120 ML BOTTLE TP SCH (09:45)
[2023-01-30] MEDS: ZINC OXIDE OINT 30 GM TUBE TP SCH ×2 (09:45→21:39)
[2023-01-30] MEDS: [UNRECOGNIZED DRUG - OTHER] TOP SCH ×2 (09:45→21:39)
[2023-01-30] MEDS: HEPARIN SODIUM,PORCINE 5,000 UNITS/ML VIAL SQ SCH ×2 (09:45→21:48)
[2023-01-30 10:30] VITALS: O2SAT 98
[2023-01-30 20:00] VITALS: TEMP 98
[2023-01-30 21:14] VITALS: O2SAT 98
[2023-01-30] MEDS: OMEGA-3 FATTY ACIDS/FISH OIL CAPSULE GT SCH (21:38)
[2023-01-31] MEDS: LORATADINE 10 MG TABLET GT SCH (05:51)
[2023-01-31] MEDS: OMEPRAZOLE 20 MG CAPSULE.DR GT SCH (05:53)
[2023-01-31] MEDS: CHOLECALCIFEROL 1,000 UNIT TABLET GT SCH (05:53)
[2023-01-31 08:06] VITALS: TEMP 99.4
[2023-01-31] MEDS: BACLOFEN 10 MG TABLET GT SCH ×3 (08:43→16:43)
[2023-01-31] MEDS: DOCUSATE SODIUM 100 MG/10 ML LIQUID UDC GT SCH ×2 (08:43→21:09)
[2023-01-31] MEDS: [UNRECOGNIZED DRUG - OTHER] GT SCH ×2 (08:43→21:10)
[2023-01-31] MEDS: REMEDY ESSENTIAL ZINC PASTE 113 GM TOP SCH ×2 (08:44→21:13)
[2023-01-31] MEDS: HEPARIN SODIUM,PORCINE 5,000 UNITS/ML VIAL SQ SCH ×2 (08:44→21:11)
[2023-01-31] MEDS: [UNRECOGNIZED DRUG - OTHER] TOP SCH ×2 (08:44→21:13)
[2023-01-31] MEDS: BENZOYL PEROXIDE 10% GEL 60 GM TUBE TP SCH ×2 (08:45→16:43)
[2023-01-31] MEDS: ZINC OXIDE OINT 30 GM TUBE TP SCH ×2 (08:45→21:13)
[2023-01-31] MEDS: VITAMINS A AND D OINT 42 GM TUBE TP SCH (08:45)
[2023-01-31] MEDS: HYDROGEN PEROXIDE 3% 118 ML BOTTLE TP SCH ×2 (09:15→21:00)
[2023-01-31 12:42] VITALS: O2SAT 95
[2023-01-31 20:00] VITALS: TEMP 98.9
[2023-01-31 20:30] VITALS: O2SAT 98
[2023-01-31] MEDS: OMEGA-3 FATTY ACIDS/FISH OIL CAPSULE GT SCH (21:10)
[2023-02-01] MEDS: OMEPRAZOLE 20 MG CAPSULE.DR GT SCH (06:24)
[2023-02-01] MEDS: LORATADINE 10 MG TABLET GT SCH (06:24)
[2023-02-01] MEDS: CHOLECALCIFEROL 1,000 UNIT TABLET GT SCH (06:24)
[2023-02-01 08:00] VITALS: TEMP 98.3
[2023-02-01] MEDS: [UNRECOGNIZED DRUG - OTHER] GT SCH ×2 (08:19→21:32)
[2023-02-01] MEDS: DOCUSATE SODIUM 100 MG/10 ML LIQUID UDC GT SCH ×2 (08:19→21:31)
[2023-02-01] MEDS: BACLOFEN 10 MG TABLET GT SCH ×3 (08:19→17:27)
[2023-02-01] MEDS: BENZOYL PEROXIDE 10% GEL 60 GM TUBE TP SCH ×2 (08:20→17:28)
[2023-02-01] MEDS: REMEDY ESSENTIAL ZINC PASTE 113 GM TOP SCH ×2 (08:20→21:34)
[2023-02-01] MEDS: [UNRECOGNIZED DRUG - OTHER] TOP SCH ×2 (08:20→21:34)
[2023-02-01] MEDS: ZINC OXIDE OINT 30 GM TUBE TP SCH ×2 (08:21→21:34)
[2023-02-01] MEDS: VITAMINS A AND D OINT 42 GM TUBE TP SCH (08:21)
[2023-02-01] MEDS: HEPARIN SODIUM,PORCINE 5,000 UNITS/ML VIAL SQ SCH ×2 (08:22→21:00)
[2023-02-01 09:30] VITALS: O2SAT 98
[2023-02-01] MEDS: HYDROGEN PEROXIDE 3% 118 ML BOTTLE TP SCH ×2 (09:32→21:31)
[2023-02-01] MEDS: JEVITY 1.2 1000 ML LIQUID GT PRN (16:56)
[2023-02-01 19:15] VITALS: O2SAT 98
[2023-02-01 20:00] VITALS: TEMP 97.8
[2023-02-01] MEDS: OMEGA-3 FATTY ACIDS/FISH OIL CAPSULE GT SCH (21:32)
[2023-02-02] MEDS: OMEPRAZOLE 20 MG CAPSULE.DR GT SCH (05:54)
[2023-02-02] MEDS: CHOLECALCIFEROL 1,000 UNIT TABLET GT SCH (05:54)
[2023-02-02] MEDS: LORATADINE 10 MG TABLET GT SCH (05:54)
[2023-02-02 07:14] VITALS: TEMP 98.9
[2023-02-02] MEDS: REMEDY ESSENTIAL ZINC PASTE 113 GM TOP SCH ×2 (08:45→21:35)
[2023-02-02] MEDS: DOCUSATE SODIUM 100 MG/10 ML LIQUID UDC GT SCH ×2 (08:45→21:31)
[2023-02-02] MEDS: [UNRECOGNIZED DRUG - OTHER] GT SCH ×2 (08:45→21:32)
[2023-02-02] MEDS: [UNRECOGNIZED DRUG - OTHER] TOP SCH ×2 (08:45→21:35)
[2023-02-02] MEDS: BACLOFEN 10 MG TABLET GT SCH ×3 (08:45→16:54)
[2023-02-02] MEDS: ZINC OXIDE OINT 30 GM TUBE TP SCH ×2 (08:46→21:35)
[2023-02-02] MEDS: VITAMINS A AND D OINT 42 GM TUBE TP SCH (08:46)
[2023-02-02] MEDS: BENZOYL PEROXIDE 10% GEL 60 GM TUBE TP SCH ×2 (08:46→16:54)
[2023-02-02] MEDS: HEPARIN SODIUM,PORCINE 5,000 UNITS/ML VIAL SQ SCH ×2 (08:47→21:33)
[2023-02-02] MEDS: HYDROGEN PEROXIDE 3% 118 ML BOTTLE TP SCH ×2 (09:00→21:00)
[2023-02-02] MEDS: JEVITY 1.2 1000 ML LIQUID GT PRN (14:26)
[2023-02-02 20:00] VITALS: TEMP 97.8
[2023-02-02 21:32] VITALS: O2SAT 98
[2023-02-02] MEDS: OMEGA-3 FATTY ACIDS/FISH OIL CAPSULE GT SCH (21:32)
[2023-02-03] MEDS: CHOLECALCIFEROL 1,000 UNIT TABLET GT SCH (05:59)
[2023-02-03] MEDS: LORATADINE 10 MG TABLET GT SCH (05:59)
[2023-02-03] MEDS: OMEPRAZOLE 20 MG CAPSULE.DR GT SCH (05:59)
[2023-02-03 07:20] VITALS: TEMP 98.9
[2023-02-03] MEDS: DOCUSATE SODIUM 100 MG/10 ML LIQUID UDC GT SCH ×2 (09:34→21:00)
[2023-02-03] MEDS: BACLOFEN 10 MG TABLET GT SCH ×3 (09:34→17:09)
[2023-02-03] MEDS: [UNRECOGNIZED DRUG - OTHER] GT SCH ×2 (09:35→21:01)
[2023-02-03] MEDS: HEPARIN SODIUM,PORCINE 5,000 UNITS/ML VIAL SQ SCH ×2 (09:36→21:02)
[2023-02-03] MEDS: BENZOYL PEROXIDE 10% GEL 60 GM TUBE TP SCH ×2 (09:37→17:09)
[2023-02-03] MEDS: REMEDY ESSENTIAL ZINC PASTE 113 GM TOP SCH ×2 (09:37→21:04)
[2023-02-03] MEDS: [UNRECOGNIZED DRUG - OTHER] TOP SCH ×2 (09:37→21:04)
[2023-02-03] MEDS: VITAMINS A AND D OINT 42 GM TUBE TP SCH (09:38)
[2023-02-03] MEDS: ZINC OXIDE OINT 30 GM TUBE TP SCH ×2 (09:38→21:04)
[2023-02-03] MEDS: KETOCONAZOLE 2% SHAMPOO 120 ML BOTTLE TP SCH (09:38)
[2023-02-03] MEDS: HYDROGEN PEROXIDE 3% 118 ML BOTTLE TP SCH ×2 (09:38→21:03)
[2023-02-03 10:00] VITALS: O2SAT 98
[2023-02-03] MEDS: JEVITY 1.2 1000 ML LIQUID GT PRN (14:27)
[2023-02-03 19:20] VITALS: O2SAT 98
[2023-02-03 20:00] VITALS: TEMP 97.8
[2023-02-03] MEDS: OMEGA-3 FATTY ACIDS/FISH OIL CAPSULE GT SCH (21:00)
[2023-02-04] MEDS: OMEPRAZOLE 20 MG CAPSULE.DR GT SCH (05:40)
[2023-02-04] MEDS: CHOLECALCIFEROL 1,000 UNIT TABLET GT SCH (05:40)
[2023-02-04] MEDS: LORATADINE 10 MG TABLET GT SCH (05:40)
[2023-02-04] MEDS: JEVITY 1.2 1000 ML LIQUID GT PRN (06:22)
[2023-02-04 07:40] VITALS: O2SAT 98
[2023-02-04 07:48] VITALS: TEMP 98.4
[2023-02-04] MEDS: HYDROGEN PEROXIDE 3% 118 ML BOTTLE TP SCH ×2 (08:18→21:54)
[2023-02-04] MEDS: DOCUSATE SODIUM 100 MG/10 ML LIQUID UDC GT SCH ×2 (09:05→21:37)
[2023-02-04] MEDS: BACLOFEN 10 MG TABLET GT SCH ×3 (09:06→16:54)
[2023-02-04] MEDS: [UNRECOGNIZED DRUG - OTHER] GT SCH ×2 (09:07→21:37)
[2023-02-04] MEDS: HEPARIN SODIUM,PORCINE 5,000 UNITS/ML VIAL SQ SCH ×2 (09:10→21:39)
[2023-02-04] MEDS: REMEDY ESSENTIAL ZINC PASTE 113 GM TOP SCH ×2 (09:12→21:39)
[2023-02-04] MEDS: [UNRECOGNIZED DRUG - OTHER] TOP SCH ×2 (09:12→21:39)
[2023-02-04] MEDS: VITAMINS A AND D OINT 42 GM TUBE TP SCH (09:12)
[2023-02-04] MEDS: BENZOYL PEROXIDE 10% GEL 60 GM TUBE TP SCH ×2 (09:12→16:55)
[2023-02-04] MEDS: ZINC OXIDE OINT 30 GM TUBE TP SCH ×2 (09:12→21:39)
[2023-02-04 20:00] VITALS: TEMP 97.9
[2023-02-04] MEDS: OMEGA-3 FATTY ACIDS/FISH OIL CAPSULE GT SCH (21:37)
[2023-02-05] MEDS: JEVITY 1.2 1000 ML LIQUID GT PRN (02:00)
[2023-02-05] MEDS: OMEPRAZOLE 20 MG CAPSULE.DR GT SCH (05:32)
[2023-02-05] MEDS: LORATADINE 10 MG TABLET GT SCH (05:32)
[2023-02-05] MEDS: CHOLECALCIFEROL 1,000 UNIT TABLET GT SCH (05:32)
[2023-02-05 07:53] VITALS: TEMP 99.1
[2023-02-05] MEDS: DOCUSATE SODIUM 100 MG/10 ML LIQUID UDC GT SCH ×2 (08:39→21:23)
[2023-02-05] MEDS: BACLOFEN 10 MG TABLET GT SCH ×3 (08:39→17:21)
[2023-02-05] MEDS: [UNRECOGNIZED DRUG - OTHER] GT SCH ×2 (08:40→21:24)
[2023-02-05] MEDS: HEPARIN SODIUM,PORCINE 5,000 UNITS/ML VIAL SQ SCH ×2 (08:40→21:00)
[2023-02-05] MEDS: BENZOYL PEROXIDE 10% GEL 60 GM TUBE TP SCH ×2 (08:41→17:21)
[2023-02-05] MEDS: REMEDY ESSENTIAL ZINC PASTE 113 GM TOP SCH ×2 (08:41→21:27)
[2023-02-05] MEDS: [UNRECOGNIZED DRUG - OTHER] TOP SCH ×2 (08:41→21:27)
[2023-02-05] MEDS: VITAMINS A AND D OINT 42 GM TUBE TP SCH (08:41)
[2023-02-05] MEDS: ZINC OXIDE OINT 30 GM TUBE TP SCH ×2 (08:41→21:27)
[2023-02-05] MEDS: HYDROGEN PEROXIDE 3% 118 ML BOTTLE TP SCH ×2 (09:57→22:59)
[2023-02-05 10:30] VITALS: O2SAT 98
[2023-02-05 19:37] VITALS: O2SAT 98
[2023-02-05 20:00] VITALS: TEMP 97.9
[2023-02-05] MEDS: OMEGA-3 FATTY ACIDS/FISH OIL CAPSULE GT SCH (21:24)
[2023-02-06] MEDS: JEVITY 1.2 1000 ML LIQUID GT PRN (02:08)
[2023-02-06] MEDS: LORATADINE 10 MG TABLET GT SCH (05:37)
[2023-02-06] MEDS: CHOLECALCIFEROL 1,000 UNIT TABLET GT SCH (05:37)
[2023-02-06] MEDS: OMEPRAZOLE 20 MG CAPSULE.DR GT SCH (05:37)
[2023-02-06 07:42] VITALS: TEMP 98.4
[2023-02-06] MEDS: DOCUSATE SODIUM 100 MG/10 ML LIQUID UDC GT SCH ×2 (08:41→20:40)
[2023-02-06] MEDS: [UNRECOGNIZED DRUG - OTHER] GT SCH ×2 (08:42→20:41)
[2023-02-06] MEDS: BACLOFEN 10 MG TABLET GT SCH ×3 (08:42→17:53)
[2023-02-06] MEDS: [UNRECOGNIZED DRUG - OTHER] TOP SCH ×2 (08:45→20:43)
[2023-02-06] MEDS: REMEDY ESSENTIAL ZINC PASTE 113 GM TOP SCH ×2 (08:45→20:43)
[2023-02-06] MEDS: HEPARIN SODIUM,PORCINE 5,000 UNITS/ML VIAL SQ SCH ×2 (08:45→21:00)
[2023-02-06] MEDS: HYDROGEN PEROXIDE 3% 118 ML BOTTLE TP SCH ×2 (08:56→21:15)
[2023-02-06] MEDS: BENZOYL PEROXIDE 10% GEL 60 GM TUBE TP SCH ×2 (09:00→17:53)
[2023-02-06] MEDS: ZINC OXIDE OINT 30 GM TUBE TP SCH ×2 (09:24→20:43)
[2023-02-06] MEDS: KETOCONAZOLE 2% SHAMPOO 120 ML BOTTLE TP SCH (09:24)
[2023-02-06] MEDS: VITAMINS A AND D OINT 42 GM TUBE TP SCH (09:24)
[2023-02-06 10:30] VITALS: O2SAT 99
[2023-02-06 20:00] VITALS: TEMP 97.9
[2023-02-06] MEDS: OMEGA-3 FATTY ACIDS/FISH OIL CAPSULE GT SCH (20:40)
[2023-02-07] MEDS: OMEPRAZOLE 20 MG CAPSULE.DR GT SCH (05:55)
[2023-02-07] MEDS: LORATADINE 10 MG TABLET GT SCH (05:55)
[2023-02-07] MEDS: CHOLECALCIFEROL 1,000 UNIT TABLET GT SCH (05:55)
[2023-02-07 07:29] VITALS: TEMP 99
[2023-02-07] MEDS: DOCUSATE SODIUM 100 MG/10 ML LIQUID UDC GT SCH ×2 (08:21→20:56)
[2023-02-07] MEDS: BACLOFEN 10 MG TABLET GT SCH ×3 (08:21→16:17)
[2023-02-07] MEDS: [UNRECOGNIZED DRUG - OTHER] GT SCH ×2 (08:22→20:56)
[2023-02-07] MEDS: HEPARIN SODIUM,PORCINE 5,000 UNITS/ML VIAL SQ SCH ×2 (08:24→20:58)
[2023-02-07] MEDS: BENZOYL PEROXIDE 10% GEL 60 GM TUBE TP SCH ×2 (08:26→16:18)
[2023-02-07] MEDS: [UNRECOGNIZED DRUG - OTHER] TOP SCH ×2 (08:26→20:56)
[2023-02-07] MEDS: REMEDY ESSENTIAL ZINC PASTE 113 GM TOP SCH ×2 (08:26→20:56)
[2023-02-07] MEDS: VITAMINS A AND D OINT 42 GM TUBE TP SCH (08:27)
[2023-02-07] MEDS: ZINC OXIDE OINT 30 GM TUBE TP SCH ×2 (08:28→21:07)
[2023-02-07 09:20] VITALS: O2SAT 99
[2023-02-07] MEDS: HYDROGEN PEROXIDE 3% 118 ML BOTTLE TP SCH ×2 (09:49→21:11)
[2023-02-07 20:00] VITALS: TEMP 98
[2023-02-07] MEDS: OMEGA-3 FATTY ACIDS/FISH OIL CAPSULE GT SCH (20:56)
[2023-02-07 21:18] VITALS: O2SAT 99
[2023-02-08] MEDS: CHOLECALCIFEROL 1,000 UNIT TABLET GT SCH (06:54)
[2023-02-08] MEDS: OMEPRAZOLE 20 MG CAPSULE.DR GT SCH (06:54)
[2023-02-08] MEDS: LORATADINE 10 MG TABLET GT SCH (06:54)
[2023-02-08 07:38] VITALS: TEMP 98.9
[2023-02-08] MEDS: BACLOFEN 10 MG TABLET GT SCH ×3 (08:18→17:00)
[2023-02-08] MEDS: [UNRECOGNIZED DRUG - OTHER] GT SCH ×2 (08:18→20:39)
[2023-02-08] MEDS: DOCUSATE SODIUM 100 MG/10 ML LIQUID UDC GT SCH ×2 (08:18→20:39)
[2023-02-08] MEDS: HEPARIN SODIUM,PORCINE 5,000 UNITS/ML VIAL SQ SCH ×2 (08:19→20:40)
[2023-02-08] MEDS: REMEDY ESSENTIAL ZINC PASTE 113 GM TOP SCH ×2 (08:19→20:40)
[2023-02-08] MEDS: [UNRECOGNIZED DRUG - OTHER] TOP SCH ×2 (08:19→20:40)
[2023-02-08] MEDS: BENZOYL PEROXIDE 10% GEL 60 GM TUBE TP SCH ×2 (08:20→17:00)
[2023-02-08] MEDS: VITAMINS A AND D OINT 42 GM TUBE TP SCH (08:20)
[2023-02-08] MEDS: ZINC OXIDE OINT 30 GM TUBE TP SCH ×2 (08:20→20:40)
[2023-02-08] MEDS: HYDROGEN PEROXIDE 3% 118 ML BOTTLE TP SCH ×2 (09:05→21:40)
[2023-02-08 09:35] VITALS: O2SAT 99
[2023-02-08 20:00] VITALS: TEMP 97.9
[2023-02-08 20:10] VITALS: O2SAT 99
[2023-02-08] MEDS: JEVITY 1.2 1000 ML LIQUID GT PRN (20:31)
[2023-02-08] MEDS: OMEGA-3 FATTY ACIDS/FISH OIL CAPSULE GT SCH (20:39)
[2023-02-09] MEDS: CHOLECALCIFEROL 1,000 UNIT TABLET GT SCH (05:51)
[2023-02-09] MEDS: LORATADINE 10 MG TABLET GT SCH (05:51)
[2023-02-09] MEDS: OMEPRAZOLE 20 MG CAPSULE.DR GT SCH (05:51)
[2023-02-09 07:19] VITALS: TEMP 98.7
[2023-02-09] MEDS: [UNRECOGNIZED DRUG - OTHER] GT SCH ×2 (08:52→20:38)
[2023-02-09] MEDS: BACLOFEN 10 MG TABLET GT SCH ×3 (08:52→17:01)
[2023-02-09] MEDS: DOCUSATE SODIUM 100 MG/10 ML LIQUID UDC GT SCH ×2 (08:52→20:37)
[2023-02-09] MEDS: HEPARIN SODIUM,PORCINE 5,000 UNITS/ML VIAL SQ SCH ×2 (08:53→20:39)
[2023-02-09] MEDS: VITAMINS A AND D OINT 42 GM TUBE TP SCH (08:53)
[2023-02-09] MEDS: REMEDY ESSENTIAL ZINC PASTE 113 GM TOP SCH ×2 (08:53→20:39)
[2023-02-09] MEDS: ZINC OXIDE OINT 30 GM TUBE TP SCH ×2 (08:53→20:39)
[2023-02-09] MEDS: [UNRECOGNIZED DRUG - OTHER] TOP SCH ×2 (08:53→20:38)
[2023-02-09 09:00] VITALS: O2SAT 99
[2023-02-09] MEDS: HYDROGEN PEROXIDE 3% 118 ML BOTTLE TP SCH ×2 (09:00→19:17)
[2023-02-09 20:00] VITALS: TEMP 98
[2023-02-09] MEDS: OMEGA-3 FATTY ACIDS/FISH OIL CAPSULE GT SCH (20:38)
[2023-02-09 21:00] VITALS: O2SAT 99
[2023-02-10] MEDS: JEVITY 1.2 1000 ML LIQUID GT PRN (06:08)
[2023-02-10] MEDS: OMEPRAZOLE 20 MG CAPSULE.DR GT SCH (06:08)
[2023-02-10] MEDS: LORATADINE 10 MG TABLET GT SCH (06:08)
[2023-02-10] MEDS: CHOLECALCIFEROL 1,000 UNIT TABLET GT SCH (06:08)
[2023-02-10 08:00] VITALS: TEMP 97.6
[2023-02-10] MEDS: [UNRECOGNIZED DRUG - OTHER] GT SCH ×2 (08:29→21:51)
[2023-02-10] MEDS: BACLOFEN 10 MG TABLET GT SCH ×3 (08:29→17:26)
[2023-02-10] MEDS: DOCUSATE SODIUM 100 MG/10 ML LIQUID UDC GT SCH ×2 (08:29→21:51)
[2023-02-10] MEDS: [UNRECOGNIZED DRUG - OTHER] TOP SCH ×2 (08:30→21:56)
[2023-02-10] MEDS: REMEDY ESSENTIAL ZINC PASTE 113 GM TOP SCH ×2 (08:30→21:56)
[2023-02-10] MEDS: HEPARIN SODIUM,PORCINE 5,000 UNITS/ML VIAL SQ SCH ×2 (08:30→21:58)
[2023-02-10] MEDS: KETOCONAZOLE 2% SHAMPOO 120 ML BOTTLE TP SCH (08:31)
[2023-02-10] MEDS: ZINC OXIDE OINT 30 GM TUBE TP SCH ×2 (08:31→21:56)
[2023-02-10] MEDS: VITAMINS A AND D OINT 42 GM TUBE TP SCH (08:31)
[2023-02-10] MEDS: HYDROGEN PEROXIDE 3% 118 ML BOTTLE TP SCH ×2 (08:42→20:56)
[2023-02-10 09:35] VITALS: O2SAT 99
[2023-02-10 20:00] VITALS: TEMP 97.9
[2023-02-10 20:55] VITALS: O2SAT 99
[2023-02-10] MEDS: OMEGA-3 FATTY ACIDS/FISH OIL CAPSULE GT SCH (21:51)
[2023-02-11] MEDS: CHOLECALCIFEROL 1,000 UNIT TABLET GT SCH (06:35)
[2023-02-11] MEDS: OMEPRAZOLE 20 MG CAPSULE.DR GT SCH (06:36)
[2023-02-11] MEDS: LORATADINE 10 MG TABLET GT SCH (06:36)
[2023-02-11] MEDS: HYDROGEN PEROXIDE 3% 118 ML BOTTLE TP SCH ×2 (07:22→21:00)
[2023-02-11 08:00] VITALS: TEMP 97.6
[2023-02-11] MEDS: BACLOFEN 10 MG TABLET GT SCH ×3 (08:48→17:00)
[2023-02-11] MEDS: [UNRECOGNIZED DRUG - OTHER] GT SCH ×2 (08:48→20:45)
[2023-02-11] MEDS: DOCUSATE SODIUM 100 MG/10 ML LIQUID UDC GT SCH ×2 (08:48→20:45)
[2023-02-11] MEDS: ZINC OXIDE OINT 30 GM TUBE TP SCH ×2 (08:49→20:45)
[2023-02-11] MEDS: REMEDY ESSENTIAL ZINC PASTE 113 GM TOP SCH ×2 (08:49→20:45)
[2023-02-11] MEDS: VITAMINS A AND D OINT 42 GM TUBE TP SCH (08:49)
[2023-02-11] MEDS: [UNRECOGNIZED DRUG - OTHER] TOP SCH ×2 (08:49→20:45)
[2023-02-11] MEDS: HEPARIN SODIUM,PORCINE 5,000 UNITS/ML VIAL SQ SCH ×2 (08:52→21:00)
[2023-02-11 10:35] VITALS: O2SAT 97
[2023-02-11 20:00] VITALS: TEMP 98
[2023-02-11 20:02] VITALS: O2SAT 99
[2023-02-11] MEDS: OMEGA-3 FATTY ACIDS/FISH OIL CAPSULE GT SCH (20:45)
[2023-02-12] MEDS: JEVITY 1.2 1000 ML LIQUID GT PRN (02:09)
[2023-02-12] MEDS: LORATADINE 10 MG TABLET GT SCH (05:46)
[2023-02-12] MEDS: CHOLECALCIFEROL 1,000 UNIT TABLET GT SCH (05:46)
[2023-02-12] MEDS: OMEPRAZOLE 20 MG CAPSULE.DR GT SCH (05:46)
[2023-02-12 07:24] VITALS: TEMP 98.2
[2023-02-12] MEDS: HYDROGEN PEROXIDE 3% 118 ML BOTTLE TP SCH ×2 (07:40→19:02)
[2023-02-12 07:41] VITALS: O2SAT 99
[2023-02-12] MEDS: DOCUSATE SODIUM 100 MG/10 ML LIQUID UDC GT SCH ×2 (09:38→20:26)
[2023-02-12] MEDS: BACLOFEN 10 MG TABLET GT SCH ×3 (09:39→16:54)
[2023-02-12] MEDS: HEPARIN SODIUM,PORCINE 5,000 UNITS/ML VIAL SQ SCH ×2 (09:39→20:52)
[2023-02-12] MEDS: [UNRECOGNIZED DRUG - OTHER] GT SCH ×2 (09:39→20:26)
[2023-02-12] MEDS: REMEDY ESSENTIAL ZINC PASTE 113 GM TOP SCH ×2 (09:41→20:26)
[2023-02-12] MEDS: [UNRECOGNIZED DRUG - OTHER] TOP SCH ×2 (09:41→20:26)
[2023-02-12] MEDS: VITAMINS A AND D OINT 42 GM TUBE TP SCH (09:42)
[2023-02-12] MEDS: ZINC OXIDE OINT 30 GM TUBE TP SCH ×2 (09:42→20:27)
[2023-02-12 19:55] VITALS: O2SAT 99
[2023-02-12] MEDS: OMEGA-3 FATTY ACIDS/FISH OIL CAPSULE GT SCH (20:26)
[2023-02-12 20:48] VITALS: TEMP 97.3
[2023-02-13] MEDS: JEVITY 1.2 1000 ML LIQUID GT PRN ×2 (00:39→20:31)
[2023-02-13] MEDS: OMEPRAZOLE 20 MG CAPSULE.DR GT SCH (05:26)
[2023-02-13] MEDS: CHOLECALCIFEROL 1,000 UNIT TABLET GT SCH (05:26)
[2023-02-13] MEDS: LORATADINE 10 MG TABLET GT SCH (05:26)
[2023-02-13 07:58] VITALS: TEMP 98.1
[2023-02-13 08:50] VITALS: O2SAT 98
[2023-02-13] MEDS: HYDROGEN PEROXIDE 3% 118 ML BOTTLE TP SCH ×2 (08:50→19:06)
[2023-02-13] MEDS: [UNRECOGNIZED DRUG - OTHER] GT SCH ×2 (09:00→21:00)
[2023-02-13] MEDS: REMEDY ESSENTIAL ZINC PASTE 113 GM TOP SCH ×2 (09:00→20:31)
[2023-02-13] MEDS: BACLOFEN 10 MG TABLET GT SCH ×3 (09:01→17:09)
[2023-02-13] MEDS: DOCUSATE SODIUM 100 MG/10 ML LIQUID UDC GT SCH ×2 (09:01→20:31)
[2023-02-13] MEDS: HEPARIN SODIUM,PORCINE 5,000 UNITS/ML VIAL SQ SCH ×2 (09:02→21:00)
[2023-02-13] MEDS: [UNRECOGNIZED DRUG - OTHER] TOP SCH ×2 (09:02→20:31)
[2023-02-13] MEDS: ZINC OXIDE OINT 30 GM TUBE TP SCH ×2 (09:03→20:31)
[2023-02-13] MEDS: KETOCONAZOLE 2% SHAMPOO 120 ML BOTTLE TP SCH (09:03)
[2023-02-13] MEDS: VITAMINS A AND D OINT 42 GM TUBE TP SCH (09:03)
[2023-02-13 20:00] VITALS: TEMP 98.8
[2023-02-13] MEDS: OMEGA-3 FATTY ACIDS/FISH OIL CAPSULE GT SCH (20:31)
[2023-02-13 20:58] VITALS: O2SAT 99
[2023-02-14] MEDS: LORATADINE 10 MG TABLET GT SCH (05:37)
[2023-02-14] MEDS: CHOLECALCIFEROL 1,000 UNIT TABLET GT SCH (05:37)
[2023-02-14] MEDS: OMEPRAZOLE 20 MG CAPSULE.DR GT SCH (05:37)
[2023-02-14 07:25] VITALS: O2SAT 98
[2023-02-14 07:35] VITALS: TEMP 98.2
[2023-02-14] MEDS: DOCUSATE SODIUM 100 MG/10 ML LIQUID UDC GT SCH ×2 (08:47→20:12)
[2023-02-14] MEDS: [UNRECOGNIZED DRUG - OTHER] GT SCH ×2 (08:47→20:12)
[2023-02-14] MEDS: BACLOFEN 10 MG TABLET GT SCH ×3 (08:47→17:20)
[2023-02-14] MEDS: HEPARIN SODIUM,PORCINE 5,000 UNITS/ML VIAL SQ SCH ×2 (08:48→20:13)
[2023-02-14] MEDS: REMEDY ESSENTIAL ZINC PASTE 113 GM TOP SCH ×2 (08:48→20:13)
[2023-02-14] MEDS: ZINC OXIDE OINT 30 GM TUBE TP SCH ×2 (08:48→20:13)
[2023-02-14] MEDS: [UNRECOGNIZED DRUG - OTHER] TOP SCH ×2 (08:48→20:13)
[2023-02-14] MEDS: VITAMINS A AND D OINT 42 GM TUBE TP SCH (08:48)
[2023-02-14] MEDS: HYDROGEN PEROXIDE 3% 118 ML BOTTLE TP SCH ×2 (09:05→20:56)
[2023-02-14 19:58] VITALS: TEMP 99.2
[2023-02-14] MEDS: OMEGA-3 FATTY ACIDS/FISH OIL CAPSULE GT SCH (20:12)
[2023-02-14 20:56] VITALS: O2SAT 99
[2023-02-15] MEDS: LORATADINE 10 MG TABLET GT SCH (05:26)
[2023-02-15] MEDS: OMEPRAZOLE 20 MG CAPSULE.DR GT SCH (05:26)
[2023-02-15] MEDS: CHOLECALCIFEROL 1,000 UNIT TABLET GT SCH (05:26)
[2023-02-15 07:21] VITALS: TEMP 99.2
[2023-02-15] MEDS: HYDROGEN PEROXIDE 3% 118 ML BOTTLE TP SCH ×2 (09:01→21:00)
[2023-02-15 09:30] VITALS: O2SAT 98
[2023-02-15] MEDS: DOCUSATE SODIUM 100 MG/10 ML LIQUID UDC GT SCH ×2 (09:31→20:35)
[2023-02-15] MEDS: [UNRECOGNIZED DRUG - OTHER] GT SCH ×2 (09:32→20:35)
[2023-02-15] MEDS: BACLOFEN 10 MG TABLET GT SCH ×3 (09:32→16:50)
[2023-02-15] MEDS: [UNRECOGNIZED DRUG - OTHER] TOP SCH ×2 (09:33→20:35)
[2023-02-15] MEDS: HEPARIN SODIUM,PORCINE 5,000 UNITS/ML VIAL SQ SCH ×2 (09:33→20:35)
[2023-02-15] MEDS: REMEDY ESSENTIAL ZINC PASTE 113 GM TOP SCH ×2 (09:33→20:35)
[2023-02-15] MEDS: ZINC OXIDE OINT 30 GM TUBE TP SCH ×2 (09:33→20:35)
[2023-02-15] MEDS: VITAMINS A AND D OINT 42 GM TUBE TP SCH (09:33)
[2023-02-15 19:51] VITALS: TEMP 98.4
[2023-02-15 20:20] VITALS: O2SAT 99
[2023-02-15] MEDS: OMEGA-3 FATTY ACIDS/FISH OIL CAPSULE GT SCH (20:35)
[2023-02-16] MEDS: JEVITY 1.2 1000 ML LIQUID GT PRN (04:11)
[2023-02-16] MEDS: OMEPRAZOLE 20 MG CAPSULE.DR GT SCH (05:31)
[2023-02-16] MEDS: CHOLECALCIFEROL 1,000 UNIT TABLET GT SCH (05:31)
[2023-02-16] MEDS: LORATADINE 10 MG TABLET GT SCH (05:31)
[2023-02-16] MEDS: HYDROGEN PEROXIDE 3% 118 ML BOTTLE TP SCH ×2 (07:41→21:49)
[2023-02-16 08:03] VITALS: TEMP 97.7
[2023-02-16] MEDS: BACLOFEN 10 MG TABLET GT SCH ×3 (08:55→17:13)
[2023-02-16] MEDS: DOCUSATE SODIUM 100 MG/10 ML LIQUID UDC GT SCH ×2 (08:55→21:47)
[2023-02-16] MEDS: [UNRECOGNIZED DRUG - OTHER] GT SCH ×2 (08:55→21:48)
[2023-02-16] MEDS: ZINC OXIDE OINT 30 GM TUBE TP SCH ×2 (08:57→21:49)
[2023-02-16] MEDS: VITAMINS A AND D OINT 42 GM TUBE TP SCH (08:57)
[2023-02-16] MEDS: HEPARIN SODIUM,PORCINE 5,000 UNITS/ML VIAL SQ SCH ×2 (08:57→21:00)
[2023-02-16] MEDS: REMEDY ESSENTIAL ZINC PASTE 113 GM TOP SCH ×2 (08:57→21:48)
[2023-02-16] MEDS: [UNRECOGNIZED DRUG - OTHER] TOP SCH ×2 (08:57→21:48)
[2023-02-16 10:30] VITALS: O2SAT 99
[2023-02-16 19:59] VITALS: TEMP 97.8
[2023-02-16] MEDS: OMEGA-3 FATTY ACIDS/FISH OIL CAPSULE GT SCH (21:47)
[2023-02-16 21:50] VITALS: O2SAT 99
[2023-02-17] MEDS: OMEPRAZOLE 20 MG CAPSULE.DR GT SCH (06:09)
[2023-02-17] MEDS: CHOLECALCIFEROL 1,000 UNIT TABLET GT SCH (06:09)
[2023-02-17] MEDS: LORATADINE 10 MG TABLET GT SCH (06:09)
[2023-02-17] MEDS: JEVITY 1.2 1000 ML LIQUID GT PRN (07:16)
[2023-02-17 07:33] VITALS: TEMP 97.3
[2023-02-17] MEDS: HYDROGEN PEROXIDE 3% 118 ML BOTTLE TP SCH ×2 (08:30→21:00)
[2023-02-17] MEDS: DOCUSATE SODIUM 100 MG/10 ML LIQUID UDC GT SCH ×2 (08:38→20:31)
[2023-02-17] MEDS: [UNRECOGNIZED DRUG - OTHER] GT SCH ×2 (08:38→20:31)
[2023-02-17] MEDS: VITAMINS A AND D OINT 42 GM TUBE TP SCH (08:39)
[2023-02-17] MEDS: [UNRECOGNIZED DRUG - OTHER] TOP SCH ×2 (08:39→20:32)
[2023-02-17] MEDS: ZINC OXIDE OINT 30 GM TUBE TP SCH ×2 (08:39→20:32)
[2023-02-17] MEDS: REMEDY ESSENTIAL ZINC PASTE 113 GM TOP SCH ×2 (08:39→20:31)
[2023-02-17] MEDS: BACLOFEN 10 MG TABLET GT SCH ×3 (08:39→17:36)
[2023-02-17] MEDS: KETOCONAZOLE 2% SHAMPOO 120 ML BOTTLE TP SCH (08:39)
[2023-02-17] MEDS: HEPARIN SODIUM,PORCINE 5,000 UNITS/ML VIAL SQ SCH ×2 (08:42→21:44)
[2023-02-17 09:20] VITALS: O2SAT 99
[2023-02-17 19:58] VITALS: TEMP 98.5
[2023-02-17] MEDS: OMEGA-3 FATTY ACIDS/FISH OIL CAPSULE GT SCH (20:31)
[2023-02-17 21:00] VITALS: O2SAT 99
[2023-02-18] MEDS: LORATADINE 10 MG TABLET GT SCH (05:28)
[2023-02-18] MEDS: OMEPRAZOLE 20 MG CAPSULE.DR GT SCH (05:28)
[2023-02-18] MEDS: CHOLECALCIFEROL 1,000 UNIT TABLET GT SCH (05:28)
[2023-02-18] MEDS: HYDROGEN PEROXIDE 3% 118 ML BOTTLE TP SCH ×2 (07:28→21:00)
[2023-02-18 07:53] VITALS: TEMP 99.3
[2023-02-18] MEDS: DOCUSATE SODIUM 100 MG/10 ML LIQUID UDC GT SCH ×2 (08:56→20:29)
[2023-02-18] MEDS: BACLOFEN 10 MG TABLET GT SCH ×3 (08:57→17:29)
[2023-02-18] MEDS: [UNRECOGNIZED DRUG - OTHER] GT SCH ×2 (08:57→20:31)
[2023-02-18] MEDS: [UNRECOGNIZED DRUG - OTHER] TOP SCH ×2 (08:57→20:31)
[2023-02-18] MEDS: VITAMINS A AND D OINT 42 GM TUBE TP SCH (08:57)
[2023-02-18] MEDS: ZINC OXIDE OINT 30 GM TUBE TP SCH ×2 (08:57→20:31)
[2023-02-18] MEDS: REMEDY ESSENTIAL ZINC PASTE 113 GM TOP SCH ×2 (08:57→20:31)
[2023-02-18] MEDS: HEPARIN SODIUM,PORCINE 5,000 UNITS/ML VIAL SQ SCH ×2 (09:00→20:38)
[2023-02-18 10:30] VITALS: O2SAT 97
[2023-02-18 20:25] VITALS: O2SAT 99
[2023-02-18] MEDS: OMEGA-3 FATTY ACIDS/FISH OIL CAPSULE GT SCH (20:29)
[2023-02-18 20:51] VITALS: TEMP 97.6
[2023-02-19] MEDS: OMEPRAZOLE 20 MG CAPSULE.DR GT SCH (06:53)
[2023-02-19] MEDS: LORATADINE 10 MG TABLET GT SCH (06:53)
[2023-02-19] MEDS: CHOLECALCIFEROL 1,000 UNIT TABLET GT SCH (06:53)
[2023-02-19 07:46] VITALS: TEMP 98.5
[2023-02-19 08:30] VITALS: O2SAT 97
[2023-02-19] MEDS: HYDROGEN PEROXIDE 3% 118 ML BOTTLE TP SCH ×2 (09:46→21:01)
[2023-02-19] MEDS: [UNRECOGNIZED DRUG - OTHER] GT SCH ×2 (09:54→20:18)
[2023-02-19] MEDS: DOCUSATE SODIUM 100 MG/10 ML LIQUID UDC GT SCH ×2 (09:54→20:18)
[2023-02-19] MEDS: BACLOFEN 10 MG TABLET GT SCH ×3 (09:54→17:40)
[2023-02-19] MEDS: ZINC OXIDE OINT 30 GM TUBE TP SCH ×2 (09:55→20:22)
[2023-02-19] MEDS: HEPARIN SODIUM,PORCINE 5,000 UNITS/ML VIAL SQ SCH ×2 (09:55→21:00)
[2023-02-19] MEDS: REMEDY ESSENTIAL ZINC PASTE 113 GM TOP SCH ×2 (09:55→20:22)
[2023-02-19] MEDS: VITAMINS A AND D OINT 42 GM TUBE TP SCH (09:55)
[2023-02-19] MEDS: [UNRECOGNIZED DRUG - OTHER] TOP SCH ×2 (09:55→20:21)
[2023-02-19] MEDS: OMEGA-3 FATTY ACIDS/FISH OIL CAPSULE GT SCH (20:18)
[2023-02-19 21:00] VITALS: TEMP 97.9
[2023-02-19 21:25] VITALS: O2SAT 99
[2023-02-20] MEDS: JEVITY 1.2 1000 ML LIQUID GT PRN ×2 (01:11→18:27)
[2023-02-20] MEDS: CHOLECALCIFEROL 1,000 UNIT TABLET GT SCH (06:06)
[2023-02-20] MEDS: LORATADINE 10 MG TABLET GT SCH (06:06)
[2023-02-20] MEDS: OMEPRAZOLE 20 MG CAPSULE.DR GT SCH (06:06)
[2023-02-20 07:28] VITALS: O2SAT 97
[2023-02-20] MEDS: HYDROGEN PEROXIDE 3% 118 ML BOTTLE TP SCH ×2 (07:28→19:11)
[2023-02-20 08:00] VITALS: BP 113/61; TEMP 98.6; O2SAT 100
[2023-02-20] MEDS: DOCUSATE SODIUM 100 MG/10 ML LIQUID UDC GT SCH ×2 (08:27→20:11)
[2023-02-20] MEDS: BACLOFEN 10 MG TABLET GT SCH ×3 (08:28→16:02)
[2023-02-20] MEDS: [UNRECOGNIZED DRUG - OTHER] GT SCH ×2 (08:28→20:11)
[2023-02-20] MEDS: HEPARIN SODIUM,PORCINE 5,000 UNITS/ML VIAL SQ SCH ×2 (08:29→20:24)
[2023-02-20] MEDS: VITAMINS A AND D OINT 42 GM TUBE TP SCH (08:33)
[2023-02-20] MEDS: [UNRECOGNIZED DRUG - OTHER] TOP SCH ×2 (08:33→20:15)
[2023-02-20] MEDS: REMEDY ESSENTIAL ZINC PASTE 113 GM TOP SCH ×2 (08:33→20:15)
[2023-02-20] MEDS: ZINC OXIDE OINT 30 GM TUBE TP SCH ×2 (08:33→20:15)
[2023-02-20] MEDS: KETOCONAZOLE 2% SHAMPOO 120 ML BOTTLE TP SCH (08:33)
[2023-02-20] MEDS: OMEGA-3 FATTY ACIDS/FISH OIL CAPSULE GT SCH (20:11)
[2023-02-20 21:46] VITALS: TEMP 98.7
[2023-02-21] MEDS: OMEPRAZOLE 20 MG CAPSULE.DR GT SCH (06:26)
[2023-02-21] MEDS: CHOLECALCIFEROL 1,000 UNIT TABLET GT SCH (06:26)
[2023-02-21] MEDS: LORATADINE 10 MG TABLET GT SCH (06:26)
[2023-02-21 07:46] VITALS: TEMP 98.3
[2023-02-21] MEDS: DOCUSATE SODIUM 100 MG/10 ML LIQUID UDC GT SCH ×2 (08:07→20:04)
[2023-02-21] MEDS: BACLOFEN 10 MG TABLET GT SCH ×3 (08:07→16:36)
[2023-02-21] MEDS: [UNRECOGNIZED DRUG - OTHER] GT SCH ×2 (08:08→20:04)
[2023-02-21] MEDS: HEPARIN SODIUM,PORCINE 5,000 UNITS/ML VIAL SQ SCH ×2 (08:10→20:05)
[2023-02-21] MEDS: [UNRECOGNIZED DRUG - OTHER] TOP SCH ×2 (08:10→20:05)
[2023-02-21] MEDS: VITAMINS A AND D OINT 42 GM TUBE TP SCH (08:11)
[2023-02-21] MEDS: REMEDY ESSENTIAL ZINC PASTE 113 GM TOP SCH ×2 (08:11→20:05)
[2023-02-21] MEDS: ZINC OXIDE OINT 30 GM TUBE TP SCH ×2 (08:11→20:05)
[2023-02-21] MEDS: HYDROGEN PEROXIDE 3% 118 ML BOTTLE TP SCH ×2 (09:00→20:57)
[2023-02-21 09:30] VITALS: O2SAT 97
[2023-02-21] MEDS: JEVITY 1.2 1000 ML LIQUID GT PRN (16:14)
[2023-02-21] MEDS: OMEGA-3 FATTY ACIDS/FISH OIL CAPSULE GT SCH (20:04)
[2023-02-21 20:11] VITALS: TEMP 98.5
[2023-02-21 21:02] VITALS: O2SAT 99
[2023-02-22] MEDS: OMEPRAZOLE 20 MG CAPSULE.DR GT SCH (05:39)
[2023-02-22] MEDS: LORATADINE 10 MG TABLET GT SCH (05:39)
[2023-02-22] MEDS: CHOLECALCIFEROL 1,000 UNIT TABLET GT SCH (05:39)
[2023-02-22 07:44] VITALS: TEMP 99.1
[2023-02-22] MEDS: BACLOFEN 10 MG TABLET GT SCH ×3 (08:40→17:30)
[2023-02-22] MEDS: DOCUSATE SODIUM 100 MG/10 ML LIQUID UDC GT SCH ×2 (08:40→20:12)
[2023-02-22] MEDS: [UNRECOGNIZED DRUG - OTHER] GT SCH ×2 (08:41→20:15)
[2023-02-22] MEDS: [UNRECOGNIZED DRUG - OTHER] TOP SCH ×2 (08:42→20:18)
[2023-02-22] MEDS: HEPARIN SODIUM,PORCINE 5,000 UNITS/ML VIAL SQ SCH ×2 (08:42→21:46)
[2023-02-22] MEDS: ZINC OXIDE OINT 30 GM TUBE TP SCH ×2 (08:43→20:18)
[2023-02-22] MEDS: REMEDY ESSENTIAL ZINC PASTE 113 GM TOP SCH ×2 (08:43→20:18)
[2023-02-22] MEDS: VITAMINS A AND D OINT 42 GM TUBE TP SCH (08:43)
[2023-02-22] MEDS: HYDROGEN PEROXIDE 3% 118 ML BOTTLE TP SCH ×2 (09:00→21:20)
[2023-02-22 09:20] VITALS: O2SAT 97
[2023-02-22 10:00] VITALS: O2SAT 98
[2023-02-22] MEDS: JEVITY 1.2 1000 ML LIQUID GT PRN (14:03)
[2023-02-22 20:10] VITALS: O2SAT 99
[2023-02-22 20:11] VITALS: TEMP 98.2
[2023-02-22] MEDS: OMEGA-3 FATTY ACIDS/FISH OIL CAPSULE GT SCH (20:12)
[2023-02-23] MEDS: JEVITY 1.2 1000 ML LIQUID GT PRN (05:00)
[2023-02-23] MEDS: LORATADINE 10 MG TABLET GT SCH (06:12)
[2023-02-23] MEDS: CHOLECALCIFEROL 1,000 UNIT TABLET GT SCH (06:12)
[2023-02-23] MEDS: OMEPRAZOLE 20 MG CAPSULE.DR GT SCH (06:12)
[2023-02-23 07:23] VITALS: TEMP 98.5
[2023-02-23] MEDS: HYDROGEN PEROXIDE 3% 118 ML BOTTLE TP SCH ×2 (07:23→21:32)
[2023-02-23 07:24] VITALS: O2SAT 97
[2023-02-23] MEDS: DOCUSATE SODIUM 100 MG/10 ML LIQUID UDC GT SCH ×2 (08:29→20:07)
[2023-02-23] MEDS: BACLOFEN 10 MG TABLET GT SCH ×3 (08:30→16:06)
[2023-02-23] MEDS: [UNRECOGNIZED DRUG - OTHER] GT SCH ×2 (08:30→20:07)
[2023-02-23] MEDS: REMEDY ESSENTIAL ZINC PASTE 113 GM TOP SCH ×2 (08:31→20:11)
[2023-02-23] MEDS: ZINC OXIDE OINT 30 GM TUBE TP SCH ×2 (08:31→20:11)
[2023-02-23] MEDS: VITAMINS A AND D OINT 42 GM TUBE TP SCH (08:31)
[2023-02-23] MEDS: [UNRECOGNIZED DRUG - OTHER] TOP SCH ×2 (08:31→20:11)
[2023-02-23] MEDS: HEPARIN SODIUM,PORCINE 5,000 UNITS/ML VIAL SQ SCH ×2 (08:32→20:09)
[2023-02-23 19:20] VITALS: O2SAT 99
[2023-02-23 19:55] VITALS: TEMP 98.7
[2023-02-23] MEDS: OMEGA-3 FATTY ACIDS/FISH OIL CAPSULE GT SCH (20:07)
[2023-02-24] MEDS: JEVITY 1.2 1000 ML LIQUID GT PRN (03:33)
[2023-02-24] MEDS: CHOLECALCIFEROL 1,000 UNIT TABLET GT SCH (06:07)
[2023-02-24] MEDS: OMEPRAZOLE 20 MG CAPSULE.DR GT SCH (06:07)
[2023-02-24] MEDS: LORATADINE 10 MG TABLET GT SCH (06:07)
[2023-02-24 07:25] VITALS: TEMP 97
[2023-02-24] MEDS: DOCUSATE SODIUM 100 MG/10 ML LIQUID UDC GT SCH ×2 (08:36→20:01)
[2023-02-24] MEDS: BACLOFEN 10 MG TABLET GT SCH ×3 (08:36→17:38)
[2023-02-24] MEDS: [UNRECOGNIZED DRUG - OTHER] GT SCH ×2 (08:36→20:06)
[2023-02-24] MEDS: HEPARIN SODIUM,PORCINE 5,000 UNITS/ML VIAL SQ SCH ×2 (08:38→21:00)
[2023-02-24] MEDS: VITAMINS A AND D OINT 42 GM TUBE TP SCH (08:40)
[2023-02-24] MEDS: KETOCONAZOLE 2% SHAMPOO 120 ML BOTTLE TP SCH (08:40)
[2023-02-24] MEDS: REMEDY ESSENTIAL ZINC PASTE 113 GM TOP SCH ×2 (08:40→20:09)
[2023-02-24] MEDS: [UNRECOGNIZED DRUG - OTHER] TOP SCH ×2 (08:40→20:09)
[2023-02-24] MEDS: ZINC OXIDE OINT 30 GM TUBE TP SCH ×2 (08:40→20:09)
[2023-02-24] MEDS: HYDROGEN PEROXIDE 3% 118 ML BOTTLE TP SCH ×2 (09:03→20:46)
[2023-02-24 10:30] VITALS: O2SAT 97
[2023-02-24 19:25] VITALS: O2SAT 97
[2023-02-24] MEDS: OMEGA-3 FATTY ACIDS/FISH OIL CAPSULE GT SCH (20:06)
[2023-02-24 20:09] VITALS: TEMP 98.4
[2023-02-25] MEDS: JEVITY 1.2 1000 ML LIQUID GT PRN (01:46)
[2023-02-25] MEDS: OMEPRAZOLE 20 MG CAPSULE.DR GT SCH (05:46)
[2023-02-25] MEDS: CHOLECALCIFEROL 1,000 UNIT TABLET GT SCH (05:46)
[2023-02-25] MEDS: LORATADINE 10 MG TABLET GT SCH (05:46)
[2023-02-25 07:40] VITALS: O2SAT 96
[2023-02-25] MEDS: HYDROGEN PEROXIDE 3% 118 ML BOTTLE TP SCH ×2 (07:43→19:22)
[2023-02-25] MEDS: [UNRECOGNIZED DRUG - OTHER] GT SCH ×2 (08:31→20:13)
[2023-02-25] MEDS: BACLOFEN 10 MG TABLET GT SCH ×3 (08:31→17:11)
[2023-02-25] MEDS: DOCUSATE SODIUM 100 MG/10 ML LIQUID UDC GT SCH ×2 (08:31→20:13)
[2023-02-25] MEDS: HEPARIN SODIUM,PORCINE 5,000 UNITS/ML VIAL SQ SCH ×2 (08:32→21:29)
[2023-02-25] MEDS: VITAMINS A AND D OINT 42 GM TUBE TP SCH (08:33)
[2023-02-25] MEDS: [UNRECOGNIZED DRUG - OTHER] TOP SCH ×2 (08:33→20:14)
[2023-02-25] MEDS: ZINC OXIDE OINT 30 GM TUBE TP SCH ×2 (08:33→20:17)
[2023-02-25] MEDS: REMEDY ESSENTIAL ZINC PASTE 113 GM TOP SCH ×2 (08:33→20:16)
[2023-02-25 15:32] VITALS: O2SAT 96
[2023-02-25 20:00] VITALS: TEMP 99
[2023-02-25 20:05] VITALS: O2SAT 99
[2023-02-25] MEDS: OMEGA-3 FATTY ACIDS/FISH OIL CAPSULE GT SCH (20:13)
[2023-02-26] MEDS: JEVITY 1.2 1000 ML LIQUID GT PRN ×2 (01:10→19:58)
[2023-02-26] MEDS: OMEPRAZOLE 20 MG CAPSULE.DR GT SCH (06:27)
[2023-02-26] MEDS: CHOLECALCIFEROL 1,000 UNIT TABLET GT SCH (06:27)
[2023-02-26] MEDS: LORATADINE 10 MG TABLET GT SCH (06:27)
[2023-02-26 07:15] VITALS: O2SAT 97
[2023-02-26 07:45] VITALS: TEMP 99.2
[2023-02-26] MEDS: [UNRECOGNIZED DRUG - OTHER] GT SCH ×2 (09:27→20:09)
[2023-02-26] MEDS: BACLOFEN 10 MG TABLET GT SCH ×3 (09:27→17:35)
[2023-02-26] MEDS: VITAMINS A AND D OINT 42 GM TUBE TP SCH (09:27)
[2023-02-26] MEDS: REMEDY ESSENTIAL ZINC PASTE 113 GM TOP SCH ×2 (09:27→20:09)
[2023-02-26] MEDS: DOCUSATE SODIUM 100 MG/10 ML LIQUID UDC GT SCH ×2 (09:27→20:09)
[2023-02-26] MEDS: HYDROGEN PEROXIDE 3% 118 ML BOTTLE TP SCH ×2 (09:27→19:16)
[2023-02-26] MEDS: [UNRECOGNIZED DRUG - OTHER] TOP SCH ×2 (09:27→20:09)
[2023-02-26] MEDS: ZINC OXIDE OINT 30 GM TUBE TP SCH ×2 (09:28→20:09)
[2023-02-26] MEDS: HEPARIN SODIUM,PORCINE 5,000 UNITS/ML VIAL SQ SCH ×2 (09:32→20:17)
[2023-02-26] MEDS: OMEGA-3 FATTY ACIDS/FISH OIL CAPSULE GT SCH (20:09)
[2023-02-26 20:14] VITALS: TEMP 98.9
[2023-02-26 20:16] VITALS: O2SAT 99
[2023-02-27] MEDS: CHOLECALCIFEROL 1,000 UNIT TABLET GT SCH (06:08)
[2023-02-27] MEDS: LORATADINE 10 MG TABLET GT SCH (06:08)
[2023-02-27] MEDS: OMEPRAZOLE 20 MG CAPSULE.DR GT SCH (06:08)
[2023-02-27 07:42] VITALS: TEMP 98.1
[2023-02-27] MEDS: HYDROGEN PEROXIDE 3% 118 ML BOTTLE TP SCH ×2 (08:57→21:10)
[2023-02-27] MEDS: VITAMINS A AND D OINT 42 GM TUBE TP SCH (09:21)
[2023-02-27] MEDS: ZINC OXIDE OINT 30 GM TUBE TP SCH ×2 (09:21→21:21)
[2023-02-27] MEDS: KETOCONAZOLE 2% SHAMPOO 120 ML BOTTLE TP SCH (09:22)
[2023-02-27] MEDS: REMEDY ESSENTIAL ZINC PASTE 113 GM TOP SCH ×2 (09:22→21:21)
[2023-02-27] MEDS: [UNRECOGNIZED DRUG - OTHER] GT SCH ×2 (09:22→21:24)
[2023-02-27] MEDS: DOCUSATE SODIUM 100 MG/10 ML LIQUID UDC GT SCH ×2 (09:22→21:21)
[2023-02-27] MEDS: [UNRECOGNIZED DRUG - OTHER] TOP SCH ×2 (09:22→21:21)
[2023-02-27] MEDS: BACLOFEN 10 MG TABLET GT SCH ×3 (09:22→17:22)
[2023-02-27] MEDS: HEPARIN SODIUM,PORCINE 5,000 UNITS/ML VIAL SQ SCH ×2 (09:24→21:57)
[2023-02-27 10:30] VITALS: O2SAT 97
[2023-02-27 20:33] VITALS: TEMP 98.3
[2023-02-27 21:10] VITALS: O2SAT 99
[2023-02-27] MEDS: OMEGA-3 FATTY ACIDS/FISH OIL CAPSULE GT SCH (21:21)
[2023-02-28] MEDS: LORATADINE 10 MG TABLET GT SCH (05:49)
[2023-02-28] MEDS: CHOLECALCIFEROL 1,000 UNIT TABLET GT SCH (05:50)
[2023-02-28] MEDS: OMEPRAZOLE 20 MG CAPSULE.DR GT SCH (05:50)
[2023-02-28 07:32] VITALS: TEMP 98.6
[2023-02-28] MEDS: REMEDY ESSENTIAL ZINC PASTE 113 GM TOP SCH ×2 (08:18→21:00)
[2023-02-28] MEDS: DOCUSATE SODIUM 100 MG/10 ML LIQUID UDC GT SCH ×2 (08:18→21:00)
[2023-02-28] MEDS: [UNRECOGNIZED DRUG - OTHER] GT SCH ×2 (08:18→21:00)
[2023-02-28] MEDS: BACLOFEN 10 MG TABLET GT SCH ×3 (08:18→16:31)
[2023-02-28] MEDS: ZINC OXIDE OINT 30 GM TUBE TP SCH ×2 (08:18→21:00)
[2023-02-28] MEDS: HEPARIN SODIUM,PORCINE 5,000 UNITS/ML VIAL SQ SCH (08:18)
[2023-02-28] MEDS: VITAMINS A AND D OINT 42 GM TUBE TP SCH (08:18)
[2023-02-28] MEDS: [UNRECOGNIZED DRUG - OTHER] TOP SCH ×2 (08:18→21:00)
[2023-02-28 08:50] VITALS: O2SAT 97
[2023-02-28] MEDS: HYDROGEN PEROXIDE 3% 118 ML BOTTLE TP SCH ×2 (09:56→21:00)
[2023-02-28 20:23] VITALS: TEMP 98.7
[2023-03-01] MEDS: OMEGA-3 FATTY ACIDS/FISH OIL CAPSULE GT SCH ×2 (00:20→20:29)
[2023-03-01] MEDS: HEPARIN SODIUM,PORCINE 5,000 UNITS/ML VIAL SQ SCH ×3 (00:27→21:00)
[2023-03-01] MEDS: CHOLECALCIFEROL 1,000 UNIT TABLET GT SCH (06:44)
[2023-03-01] MEDS: OMEPRAZOLE 20 MG CAPSULE.DR GT SCH (06:44)
[2023-03-01] MEDS: LORATADINE 10 MG TABLET GT SCH (06:45)
[2023-03-01 07:21] LABS: BASOPHILS # (AUTO) 0.1 K/UL (0.0-0.2); BASOPHILS % (AUTO) 0.5 % (0.0-2.0); EOSINOPHILS # (AUTO) 0.2 K/uL (0.0-0.7); EOSINOPHILS % (AUTO) 1.6 % (0.0-7.0); HEMATOCRIT 41.6 % (36.7-47.1); HEMOGLOBIN 14.2 g/dL (12.5-16.3); LYMPHOCYTES % (AUTO) 29.8 % (20.5-51.5); MEAN CORPUSCULAR HEMOGLOBIN 31.4 uug (23.8-33.4); MEAN CORPUSCULAR HGB CONC 34 g/dL (32.5-36.3); MONOCYTES # (AUTO) 1.3 K/uL (0.1-1.30); MONOCYTES % (AUTO) 10.1 % (0.0-11.0); NEUTROPHILS # (AUTO) 7.7 K/uL (1.8-8.9); PLATELET COUNT (AUTO) 230 K/uL (152-348); RED BLOOD CELL COUNT(AUTO) 4.52 MIL/uL (4.06-5.63); RED CELL DISTRIBUTION WIDTH 12.9 % (12.1-16.2); WHITE BLOOD COUNT (AUTO) 13.3 K/uL (3.6-10.2)
[2023-03-01 07:25] VITALS: TEMP 98.9
[2023-03-01 07:41] LABS: CALCIUM 9.4 mg/dL (8.5-10.1); CREATININE 0.7 mg/dL (0.6-1.3); MAGNESIUM 1.9 mg/dL (1.8-2.4); POTASSIUM 3.8 mmol/L (3.5-5.1)
[2023-03-01 07:56] LABS: DIFFERENTIAL COMMENT 1
[2023-03-01] MEDS: VITAMINS A AND D OINT 42 GM TUBE TP SCH (09:00)
[2023-03-01] MEDS: ZINC OXIDE OINT 30 GM TUBE TP SCH ×2 (09:00→20:29)
[2023-03-01] MEDS: [UNRECOGNIZED DRUG - OTHER] GT SCH ×2 (09:00→20:29)
[2023-03-01] MEDS: BACLOFEN 10 MG TABLET GT SCH ×3 (09:00→16:14)
[2023-03-01] MEDS: DOCUSATE SODIUM 100 MG/10 ML LIQUID UDC GT SCH ×2 (09:00→20:29)
[2023-03-01] MEDS: [UNRECOGNIZED DRUG - OTHER] TOP SCH ×2 (09:00→20:29)
[2023-03-01] MEDS: HYDROGEN PEROXIDE 3% 118 ML BOTTLE TP SCH ×2 (09:04→21:00)
[2023-03-01 09:35] VITALS: O2SAT 97
[2023-03-01] MEDS: REMEDY ESSENTIAL ZINC PASTE 113 GM TOP SCH ×2 (10:12→20:29)
[2023-03-01 19:51] VITALS: TEMP 98.8
[2023-03-01 20:10] VITALS: O2SAT 99
[2023-03-02] MEDS: JEVITY 1.2 1000 ML LIQUID GT PRN ×2 (01:04→18:48)
[2023-03-02] MEDS: LORATADINE 10 MG TABLET GT SCH (06:00)
[2023-03-02] MEDS: CHOLECALCIFEROL 1,000 UNIT TABLET GT SCH (06:00)
[2023-03-02] MEDS: OMEPRAZOLE 20 MG CAPSULE.DR GT SCH (06:00)
[2023-03-02 07:21] VITALS: TEMP 99.3
[2023-03-02] MEDS: ACETAMINOPHEN 650 MG/20 ML UDC- SA PATIENTS-PAIN ONLY GT PRN (07:45)
[2023-03-02] MEDS: HYDROGEN PEROXIDE 3% 118 ML BOTTLE TP SCH ×2 (08:11→21:00)
[2023-03-02] MEDS: [UNRECOGNIZED DRUG - OTHER] GT SCH ×2 (08:16→21:00)
[2023-03-02] MEDS: VITAMINS A AND D OINT 42 GM TUBE TP SCH (08:16)
[2023-03-02] MEDS: [UNRECOGNIZED DRUG - OTHER] TOP SCH ×2 (08:16→21:00)
[2023-03-02] MEDS: DOCUSATE SODIUM 100 MG/10 ML LIQUID UDC GT SCH ×2 (08:16→21:00)
[2023-03-02] MEDS: REMEDY ESSENTIAL ZINC PASTE 113 GM TOP SCH ×2 (08:16→21:00)
[2023-03-02] MEDS: BACLOFEN 10 MG TABLET GT SCH ×3 (08:16→16:34)
[2023-03-02] MEDS: ZINC OXIDE OINT 30 GM TUBE TP SCH ×2 (08:16→21:00)
[2023-03-02] MEDS: HEPARIN SODIUM,PORCINE 5,000 UNITS/ML VIAL SQ SCH ×2 (09:08→21:00)
[2023-03-02 10:30] VITALS: O2SAT 97
[2023-03-02 20:09] VITALS: TEMP 98.3
[2023-03-02] MEDS: OMEGA-3 FATTY ACIDS/FISH OIL CAPSULE GT SCH (21:00)
[2023-03-03] MEDS: LORATADINE 10 MG TABLET GT SCH (05:51)
[2023-03-03] MEDS: CHOLECALCIFEROL 1,000 UNIT TABLET GT SCH (05:51)
[2023-03-03] MEDS: OMEPRAZOLE 20 MG CAPSULE.DR GT SCH (05:51)
[2023-03-03 07:27] VITALS: TEMP 99.5
[2023-03-03] MEDS: DOCUSATE SODIUM 100 MG/10 ML LIQUID UDC GT SCH ×2 (08:36→20:36)
[2023-03-03] MEDS: HEPARIN SODIUM,PORCINE 5,000 UNITS/ML VIAL SQ SCH ×2 (08:39→21:00)
[2023-03-03] MEDS: [UNRECOGNIZED DRUG - OTHER] GT SCH ×2 (08:40→20:36)
[2023-03-03] MEDS: [UNRECOGNIZED DRUG - OTHER] TOP SCH ×2 (08:40→20:37)
[2023-03-03] MEDS: BACLOFEN 10 MG TABLET GT SCH ×3 (08:40→17:00)
[2023-03-03] MEDS: ZINC OXIDE OINT 30 GM TUBE TP SCH ×2 (08:41→20:37)
[2023-03-03] MEDS: KETOCONAZOLE 2% SHAMPOO 120 ML BOTTLE TP SCH (08:41)
[2023-03-03] MEDS: VITAMINS A AND D OINT 42 GM TUBE TP SCH (08:41)
[2023-03-03] MEDS: REMEDY ESSENTIAL ZINC PASTE 113 GM TOP SCH ×2 (08:41→20:37)
[2023-03-03] MEDS: HYDROGEN PEROXIDE 3% 118 ML BOTTLE TP SCH ×2 (09:10→19:19)
[2023-03-03 09:35] VITALS: O2SAT 97
[2023-03-03 20:19] VITALS: TEMP 98.2
[2023-03-03] MEDS: OMEGA-3 FATTY ACIDS/FISH OIL CAPSULE GT SCH (20:36)
[2023-03-03 20:42] VITALS: O2SAT 98
[2023-03-04] MEDS: OMEPRAZOLE 20 MG CAPSULE.DR GT SCH (05:23)
[2023-03-04] MEDS: CHOLECALCIFEROL 1,000 UNIT TABLET GT SCH (05:23)
[2023-03-04] MEDS: LORATADINE 10 MG TABLET GT SCH (05:23)
[2023-03-04 07:48] VITALS: TEMP 97.4
[2023-03-04] MEDS: HYDROGEN PEROXIDE 3% 118 ML BOTTLE TP SCH ×2 (09:00→21:00)
[2023-03-04] MEDS: BACLOFEN 10 MG TABLET GT SCH ×3 (09:02→16:42)
[2023-03-04] MEDS: DOCUSATE SODIUM 100 MG/10 ML LIQUID UDC GT SCH ×2 (09:02→20:29)
[2023-03-04] MEDS: [UNRECOGNIZED DRUG - OTHER] GT SCH ×2 (09:02→20:29)
[2023-03-04] MEDS: VITAMINS A AND D OINT 42 GM TUBE TP SCH (09:03)
[2023-03-04] MEDS: HEPARIN SODIUM,PORCINE 5,000 UNITS/ML VIAL SQ SCH ×2 (09:03→21:00)
[2023-03-04] MEDS: [UNRECOGNIZED DRUG - OTHER] TOP SCH ×2 (09:03→20:29)
[2023-03-04] MEDS: ZINC OXIDE OINT 30 GM TUBE TP SCH ×2 (09:03→20:30)
[2023-03-04] MEDS: REMEDY ESSENTIAL ZINC PASTE 113 GM TOP SCH ×2 (09:03→20:29)
[2023-03-04 10:00] VITALS: O2SAT 97
[2023-03-04] MEDS: JEVITY 1.2 1000 ML LIQUID GT PRN (14:00)
[2023-03-04 19:59] VITALS: TEMP 98
[2023-03-04 20:15] VITALS: O2SAT 98
[2023-03-04] MEDS: OMEGA-3 FATTY ACIDS/FISH OIL CAPSULE GT SCH (20:29)
[2023-03-05] MEDS: LORATADINE 10 MG TABLET GT SCH (05:29)
[2023-03-05] MEDS: OMEPRAZOLE 20 MG CAPSULE.DR GT SCH (05:29)
[2023-03-05] MEDS: CHOLECALCIFEROL 1,000 UNIT TABLET GT SCH (05:29)
[2023-03-05 07:15] VITALS: O2SAT 97
[2023-03-05] MEDS: HYDROGEN PEROXIDE 3% 118 ML BOTTLE TP SCH ×2 (07:15→21:26)
[2023-03-05 07:43] VITALS: TEMP 97.3
[2023-03-05] MEDS: DOCUSATE SODIUM 100 MG/10 ML LIQUID UDC GT SCH ×2 (08:29→20:22)
[2023-03-05] MEDS: [UNRECOGNIZED DRUG - OTHER] TOP SCH ×2 (08:29→21:48)
[2023-03-05] MEDS: HEPARIN SODIUM,PORCINE 5,000 UNITS/ML VIAL SQ SCH ×2 (08:29→21:48)
[2023-03-05] MEDS: [UNRECOGNIZED DRUG - OTHER] GT SCH ×2 (08:29→20:22)
[2023-03-05] MEDS: BACLOFEN 10 MG TABLET GT SCH ×3 (08:29→16:16)
[2023-03-05] MEDS: ZINC OXIDE OINT 30 GM TUBE TP SCH ×2 (08:30→20:22)
[2023-03-05] MEDS: VITAMINS A AND D OINT 42 GM TUBE TP SCH (08:30)
[2023-03-05] MEDS: REMEDY ESSENTIAL ZINC PASTE 113 GM TOP SCH ×2 (08:30→20:22)
[2023-03-05] MEDS: JEVITY 1.2 1000 ML LIQUID GT PRN (09:23)
[2023-03-05 19:50] VITALS: O2SAT 98
[2023-03-05 20:00] VITALS: TEMP 97.9
[2023-03-05] MEDS: OMEGA-3 FATTY ACIDS/FISH OIL CAPSULE GT SCH (20:22)
[2023-03-06] MEDS: JEVITY 1.2 1000 ML LIQUID GT PRN (03:27)
[2023-03-06] MEDS: OMEPRAZOLE 20 MG CAPSULE.DR GT SCH (05:21)
[2023-03-06] MEDS: LORATADINE 10 MG TABLET GT SCH (05:21)
[2023-03-06] MEDS: CHOLECALCIFEROL 1,000 UNIT TABLET GT SCH (05:21)
[2023-03-06 07:49] VITALS: TEMP 97.5
[2023-03-06] MEDS: DOCUSATE SODIUM 100 MG/10 ML LIQUID UDC GT SCH ×2 (08:18→21:21)
[2023-03-06] MEDS: HEPARIN SODIUM,PORCINE 5,000 UNITS/ML VIAL SQ SCH ×2 (08:18→21:00)
[2023-03-06] MEDS: BACLOFEN 10 MG TABLET GT SCH ×3 (08:18→16:46)
[2023-03-06] MEDS: [UNRECOGNIZED DRUG - OTHER] GT SCH ×2 (08:18→21:21)
[2023-03-06] MEDS: [UNRECOGNIZED DRUG - OTHER] TOP SCH ×2 (08:19→21:21)
[2023-03-06] MEDS: REMEDY ESSENTIAL ZINC PASTE 113 GM TOP SCH ×2 (08:19→21:21)
[2023-03-06] MEDS: VITAMINS A AND D OINT 42 GM TUBE TP SCH (08:19)
[2023-03-06] MEDS: ZINC OXIDE OINT 30 GM TUBE TP SCH ×2 (08:19→21:21)
[2023-03-06] MEDS: KETOCONAZOLE 2% SHAMPOO 120 ML BOTTLE TP SCH (08:19)
[2023-03-06 09:29] VITALS: O2SAT 97
[2023-03-06] MEDS: HYDROGEN PEROXIDE 3% 118 ML BOTTLE TP SCH ×2 (09:29→23:27)
[2023-03-06 20:00] VITALS: TEMP 97.9
[2023-03-06] MEDS: OMEGA-3 FATTY ACIDS/FISH OIL CAPSULE GT SCH (21:21)
[2023-03-07] MEDS: JEVITY 1.2 1000 ML LIQUID GT PRN (00:48)
[2023-03-07] MEDS: LORATADINE 10 MG TABLET GT SCH (05:05)
[2023-03-07] MEDS: CHOLECALCIFEROL 1,000 UNIT TABLET GT SCH (05:05)
[2023-03-07] MEDS: OMEPRAZOLE 20 MG CAPSULE.DR GT SCH (05:05)
[2023-03-07] MEDS: HYDROGEN PEROXIDE 3% 118 ML BOTTLE TP SCH ×2 (07:15→20:41)
[2023-03-07 07:56] VITALS: TEMP 99.7
[2023-03-07] MEDS: [UNRECOGNIZED DRUG - OTHER] GT SCH ×2 (08:43→21:12)
[2023-03-07] MEDS: DOCUSATE SODIUM 100 MG/10 ML LIQUID UDC GT SCH ×2 (08:43→21:12)
[2023-03-07] MEDS: BACLOFEN 10 MG TABLET GT SCH ×3 (08:43→17:24)
[2023-03-07] MEDS: ZINC OXIDE OINT 30 GM TUBE TP SCH ×2 (08:44→21:12)
[2023-03-07] MEDS: VITAMINS A AND D OINT 42 GM TUBE TP SCH (08:44)
[2023-03-07] MEDS: [UNRECOGNIZED DRUG - OTHER] TOP SCH ×2 (08:44→21:12)
[2023-03-07] MEDS: REMEDY ESSENTIAL ZINC PASTE 113 GM TOP SCH ×2 (08:44→21:12)
[2023-03-07] MEDS: HEPARIN SODIUM,PORCINE 5,000 UNITS/ML VIAL SQ SCH ×2 (08:44→21:13)
[2023-03-07 10:40] VITALS: O2SAT 99
[2023-03-07 20:18] VITALS: TEMP 98.6
[2023-03-07 20:52] VITALS: O2SAT 98
[2023-03-07] MEDS: OMEGA-3 FATTY ACIDS/FISH OIL CAPSULE GT SCH (21:12)
[2023-03-08] MEDS: JEVITY 1.2 1000 ML LIQUID GT PRN (00:41)
[2023-03-08] MEDS: CHOLECALCIFEROL 1,000 UNIT TABLET GT SCH (05:32)
[2023-03-08] MEDS: LORATADINE 10 MG TABLET GT SCH (05:32)
[2023-03-08] MEDS: OMEPRAZOLE 20 MG CAPSULE.DR GT SCH (05:32)
[2023-03-08 07:22] VITALS: TEMP 98.9
[2023-03-08] MEDS: HEPARIN SODIUM,PORCINE 5,000 UNITS/ML VIAL SQ SCH ×2 (08:24→21:00)
[2023-03-08] MEDS: REMEDY ESSENTIAL ZINC PASTE 113 GM TOP SCH ×2 (08:24→20:24)
[2023-03-08] MEDS: VITAMINS A AND D OINT 42 GM TUBE TP SCH (08:24)
[2023-03-08] MEDS: [UNRECOGNIZED DRUG - OTHER] GT SCH ×2 (08:24→20:23)
[2023-03-08] MEDS: DOCUSATE SODIUM 100 MG/10 ML LIQUID UDC GT SCH ×2 (08:24→20:23)
[2023-03-08] MEDS: [UNRECOGNIZED DRUG - OTHER] TOP SCH ×2 (08:24→20:23)
[2023-03-08] MEDS: ZINC OXIDE OINT 30 GM TUBE TP SCH ×2 (08:24→20:24)
[2023-03-08] MEDS: BACLOFEN 10 MG TABLET GT SCH ×3 (08:24→17:43)
[2023-03-08] MEDS: HYDROGEN PEROXIDE 3% 118 ML BOTTLE TP SCH ×2 (09:00→18:52)
[2023-03-08 09:25] VITALS: O2SAT 99
[2023-03-08 19:42] VITALS: TEMP 97.7
[2023-03-08] MEDS: OMEGA-3 FATTY ACIDS/FISH OIL CAPSULE GT SCH (20:23)
[2023-03-09] MEDS: CHOLECALCIFEROL 1,000 UNIT TABLET GT SCH (05:36)
[2023-03-09] MEDS: LORATADINE 10 MG TABLET GT SCH (05:36)
[2023-03-09] MEDS: OMEPRAZOLE 20 MG CAPSULE.DR GT SCH (05:36)
[2023-03-09 07:20] VITALS: TEMP 98.4
[2023-03-09 07:44] LABS: BASOPHILS % (AUTO) 0.6 % (0.0-2.0); EOSINOPHILS # (AUTO) 0.2 K/uL (0.0-0.7); EOSINOPHILS % (AUTO) 2.5 % (0.0-7.0); HEMATOCRIT 42.4 % (36.7-47.1); HEMOGLOBIN 14.3 g/dL (12.5-16.3); LYMPHOCYTES # (AUTO) 1.9 K/uL (0.8-4.8); LYMPHOCYTES % (AUTO) 31.1 % (20.5-51.5); MEAN CORPUSCULAR HGB CONC 34 g/dL (32.5-36.3); MEAN CORPUSCULAR VOLUME 91.7 fL (73.0-96.2); MONOCYTES # (AUTO) 0.7 K/uL (0.1-1.30); MONOCYTES % (AUTO) 10.8 % (0.0-11.0); NEUTROPHILS # (AUTO) 3.3 K/uL (1.8-8.9); PLATELET COUNT (AUTO) 214 K/uL (152-348); RED BLOOD CELL COUNT(AUTO) 4.62 MIL/uL (4.06-5.63); RED CELL DISTRIBUTION WIDTH 12.8 % (12.1-16.2)
[2023-03-09 07:54] LABS: DIFFERENTIAL COMMENT 1
[2023-03-09 07:56] LABS: CALCIUM 9.6 mg/dL (8.5-10.1); CREATININE 0.7 mg/dL (0.6-1.3); POTASSIUM 4.1 mmol/L (3.5-5.1)
[2023-03-09] MEDS: HYDROGEN PEROXIDE 3% 118 ML BOTTLE TP SCH ×2 (08:22→21:00)
[2023-03-09] MEDS: [UNRECOGNIZED DRUG - OTHER] GT SCH ×2 (08:24→21:36)
[2023-03-09] MEDS: ZINC OXIDE OINT 30 GM TUBE TP SCH ×2 (08:24→21:39)
[2023-03-09] MEDS: BACLOFEN 10 MG TABLET GT SCH ×3 (08:24→16:51)
[2023-03-09] MEDS: VITAMINS A AND D OINT 42 GM TUBE TP SCH (08:24)
[2023-03-09] MEDS: [UNRECOGNIZED DRUG - OTHER] TOP SCH ×2 (08:24→21:38)
[2023-03-09] MEDS: DOCUSATE SODIUM 100 MG/10 ML LIQUID UDC GT SCH ×2 (08:24→21:36)
[2023-03-09] MEDS: REMEDY ESSENTIAL ZINC PASTE 113 GM TOP SCH ×2 (08:24→21:39)
[2023-03-09 09:20] VITALS: O2SAT 99
[2023-03-09] MEDS: HEPARIN SODIUM,PORCINE 5,000 UNITS/ML VIAL SQ SCH ×2 (09:43→21:37)
[2023-03-09 20:01] VITALS: TEMP 98.3
[2023-03-09 20:25] VITALS: O2SAT 99
[2023-03-09] MEDS: OMEGA-3 FATTY ACIDS/FISH OIL CAPSULE GT SCH (21:36)
[2023-03-10] MEDS: JEVITY 1.2 1000 ML LIQUID GT PRN (04:37)
[2023-03-10] MEDS: LORATADINE 10 MG TABLET GT SCH (06:02)
[2023-03-10] MEDS: OMEPRAZOLE 20 MG CAPSULE.DR GT SCH (06:02)
[2023-03-10] MEDS: CHOLECALCIFEROL 1,000 UNIT TABLET GT SCH (06:02)
[2023-03-10 07:56] VITALS: TEMP 98.2
[2023-03-10] MEDS: HYDROGEN PEROXIDE 3% 118 ML BOTTLE TP SCH ×2 (08:47→21:18)
[2023-03-10] MEDS: BACLOFEN 10 MG TABLET GT SCH ×3 (09:02→17:00)
[2023-03-10] MEDS: [UNRECOGNIZED DRUG - OTHER] GT SCH ×2 (09:02→21:10)
[2023-03-10] MEDS: DOCUSATE SODIUM 100 MG/10 ML LIQUID UDC GT SCH ×2 (09:02→21:08)
[2023-03-10] MEDS: VITAMINS A AND D OINT 42 GM TUBE TP SCH (09:03)
[2023-03-10] MEDS: [UNRECOGNIZED DRUG - OTHER] TOP SCH ×2 (09:03→21:13)
[2023-03-10] MEDS: HEPARIN SODIUM,PORCINE 5,000 UNITS/ML VIAL SQ SCH ×2 (09:03→21:13)
[2023-03-10] MEDS: KETOCONAZOLE 2% SHAMPOO 120 ML BOTTLE TP SCH (09:03)
[2023-03-10] MEDS: ZINC OXIDE OINT 30 GM TUBE TP SCH ×2 (09:03→21:13)
[2023-03-10] MEDS: REMEDY ESSENTIAL ZINC PASTE 113 GM TOP SCH ×2 (09:03→21:13)
[2023-03-10 09:50] VITALS: O2SAT 99
[2023-03-10 20:30] VITALS: O2SAT 99
[2023-03-10 20:47] VITALS: TEMP 98
[2023-03-10] MEDS: OMEGA-3 FATTY ACIDS/FISH OIL CAPSULE GT SCH (21:10)
[2023-03-11] MEDS: JEVITY 1.2 1000 ML LIQUID GT PRN (02:30)
[2023-03-11] MEDS: OMEPRAZOLE 20 MG CAPSULE.DR GT SCH (05:46)
[2023-03-11] MEDS: LORATADINE 10 MG TABLET GT SCH (05:46)
[2023-03-11] MEDS: CHOLECALCIFEROL 1,000 UNIT TABLET GT SCH (05:46)
[2023-03-11 07:31] VITALS: TEMP 98.5
[2023-03-11] MEDS: HEPARIN SODIUM,PORCINE 5,000 UNITS/ML VIAL SQ SCH ×2 (08:33→20:05)
[2023-03-11] MEDS: DOCUSATE SODIUM 100 MG/10 ML LIQUID UDC GT SCH ×2 (08:34→20:02)
[2023-03-11] MEDS: BACLOFEN 10 MG TABLET GT SCH ×3 (08:34→17:32)
[2023-03-11] MEDS: [UNRECOGNIZED DRUG - OTHER] GT SCH ×2 (08:34→20:03)
[2023-03-11] MEDS: [UNRECOGNIZED DRUG - OTHER] TOP SCH ×2 (08:35→20:10)
[2023-03-11] MEDS: REMEDY ESSENTIAL ZINC PASTE 113 GM TOP SCH ×2 (08:35→20:10)
[2023-03-11] MEDS: VITAMINS A AND D OINT 42 GM TUBE TP SCH (08:35)
[2023-03-11] MEDS: ZINC OXIDE OINT 30 GM TUBE TP SCH ×2 (08:35→20:10)
[2023-03-11] MEDS: HYDROGEN PEROXIDE 3% 118 ML BOTTLE TP SCH ×2 (09:00→19:14)
[2023-03-11 16:51] VITALS: O2SAT 95
[2023-03-11 19:35] VITALS: TEMP 98.4
[2023-03-11 20:00] VITALS: O2SAT 99
[2023-03-11] MEDS: OMEGA-3 FATTY ACIDS/FISH OIL CAPSULE GT SCH (20:03)
[2023-03-12] MEDS: JEVITY 1.2 1000 ML LIQUID GT PRN (01:52)
[2023-03-12] MEDS: LORATADINE 10 MG TABLET GT SCH (05:45)
[2023-03-12] MEDS: OMEPRAZOLE 20 MG CAPSULE.DR GT SCH (05:45)
[2023-03-12] MEDS: CHOLECALCIFEROL 1,000 UNIT TABLET GT SCH (05:45)
[2023-03-12 07:15] VITALS: O2SAT 99
[2023-03-12] MEDS: HYDROGEN PEROXIDE 3% 118 ML BOTTLE TP SCH ×2 (07:15→19:12)
[2023-03-12 07:35] VITALS: TEMP 98
[2023-03-12] MEDS: HEPARIN SODIUM,PORCINE 5,000 UNITS/ML VIAL SQ SCH ×2 (08:29→21:00)
[2023-03-12] MEDS: [UNRECOGNIZED DRUG - OTHER] GT SCH ×2 (08:29→21:30)
[2023-03-12] MEDS: DOCUSATE SODIUM 100 MG/10 ML LIQUID UDC GT SCH ×2 (08:29→21:30)
[2023-03-12] MEDS: BACLOFEN 10 MG TABLET GT SCH ×3 (08:29→17:51)
[2023-03-12] MEDS: REMEDY ESSENTIAL ZINC PASTE 113 GM TOP SCH ×2 (08:30→21:30)
[2023-03-12] MEDS: VITAMINS A AND D OINT 42 GM TUBE TP SCH (08:30)
[2023-03-12] MEDS: [UNRECOGNIZED DRUG - OTHER] TOP SCH ×2 (08:30→21:30)
[2023-03-12] MEDS: ZINC OXIDE OINT 30 GM TUBE TP SCH ×2 (08:30→21:30)
[2023-03-12 19:56] VITALS: TEMP 97.7
[2023-03-12] MEDS: OMEGA-3 FATTY ACIDS/FISH OIL CAPSULE GT SCH (21:30)
[2023-03-12 22:02] VITALS: O2SAT 99
[2023-03-13] MEDS: CHOLECALCIFEROL 1,000 UNIT TABLET GT SCH (05:23)
[2023-03-13] MEDS: OMEPRAZOLE 20 MG CAPSULE.DR GT SCH (05:23)
[2023-03-13] MEDS: LORATADINE 10 MG TABLET GT SCH (05:23)
[2023-03-13 08:00] VITALS: TEMP 98.8
[2023-03-13] MEDS: BACLOFEN 10 MG TABLET GT SCH ×3 (08:25→16:22)
[2023-03-13] MEDS: [UNRECOGNIZED DRUG - OTHER] GT SCH ×2 (08:25→21:00)
[2023-03-13] MEDS: DOCUSATE SODIUM 100 MG/10 ML LIQUID UDC GT SCH ×2 (08:25→21:00)
[2023-03-13] MEDS: ZINC OXIDE OINT 30 GM TUBE TP SCH ×2 (08:26→21:00)
[2023-03-13] MEDS: HEPARIN SODIUM,PORCINE 5,000 UNITS/ML VIAL SQ SCH ×2 (08:26→21:00)
[2023-03-13] MEDS: REMEDY ESSENTIAL ZINC PASTE 113 GM TOP SCH ×2 (08:26→21:00)
[2023-03-13] MEDS: KETOCONAZOLE 2% SHAMPOO 120 ML BOTTLE TP SCH (08:26)
[2023-03-13] MEDS: [UNRECOGNIZED DRUG - OTHER] TOP SCH ×2 (08:26→21:00)
[2023-03-13] MEDS: VITAMINS A AND D OINT 42 GM TUBE TP SCH (08:26)
[2023-03-13] MEDS: HYDROGEN PEROXIDE 3% 118 ML BOTTLE TP SCH ×2 (09:22→19:16)
[2023-03-13 13:02] VITALS: O2SAT 95
[2023-03-13] MEDS: JEVITY 1.2 1000 ML LIQUID GT PRN (15:16)
[2023-03-13 20:32] VITALS: TEMP 98
[2023-03-13] MEDS: OMEGA-3 FATTY ACIDS/FISH OIL CAPSULE GT SCH (21:00)
[2023-03-14] MEDS: LORATADINE 10 MG TABLET GT SCH (06:28)
[2023-03-14] MEDS: CHOLECALCIFEROL 1,000 UNIT TABLET GT SCH (06:29)
[2023-03-14] MEDS: OMEPRAZOLE 20 MG CAPSULE.DR GT SCH (06:29)
[2023-03-14 08:00] VITALS: TEMP 98
[2023-03-14] MEDS: DOCUSATE SODIUM 100 MG/10 ML LIQUID UDC GT SCH ×2 (08:32→21:14)
[2023-03-14] MEDS: BACLOFEN 10 MG TABLET GT SCH ×3 (08:32→16:15)
[2023-03-14] MEDS: HEPARIN SODIUM,PORCINE 5,000 UNITS/ML VIAL SQ SCH ×2 (08:32→21:17)
[2023-03-14] MEDS: VITAMINS A AND D OINT 42 GM TUBE TP SCH (08:33)
[2023-03-14] MEDS: [UNRECOGNIZED DRUG - OTHER] GT SCH ×2 (08:33→21:14)
[2023-03-14] MEDS: REMEDY ESSENTIAL ZINC PASTE 113 GM TOP SCH ×2 (08:33→21:13)
[2023-03-14] MEDS: [UNRECOGNIZED DRUG - OTHER] TOP SCH ×2 (08:33→21:14)
[2023-03-14] MEDS: ZINC OXIDE OINT 30 GM TUBE TP SCH ×2 (08:33→21:00)
[2023-03-14] MEDS: JEVITY 1.2 1000 ML LIQUID GT PRN (09:24)
[2023-03-14 10:26] VITALS: O2SAT 98
[2023-03-14] MEDS: HYDROGEN PEROXIDE 3% 118 ML BOTTLE TP SCH ×2 (10:45→21:02)
[2023-03-14 19:05] VITALS: O2SAT 99
[2023-03-14 20:00] VITALS: TEMP 97.9
[2023-03-14] MEDS: OMEGA-3 FATTY ACIDS/FISH OIL CAPSULE GT SCH (21:14)
[2023-03-15] MEDS: OMEPRAZOLE 20 MG CAPSULE.DR GT SCH (05:57)
[2023-03-15] MEDS: LORATADINE 10 MG TABLET GT SCH (05:57)
[2023-03-15] MEDS: CHOLECALCIFEROL 1,000 UNIT TABLET GT SCH (05:58)
[2023-03-15 08:00] VITALS: TEMP 99.5
[2023-03-15] MEDS: DOCUSATE SODIUM 100 MG/10 ML LIQUID UDC GT SCH ×2 (08:23→21:11)
[2023-03-15] MEDS: BACLOFEN 10 MG TABLET GT SCH ×3 (08:25→16:51)
[2023-03-15] MEDS: [UNRECOGNIZED DRUG - OTHER] GT SCH ×2 (08:25→21:11)
[2023-03-15] MEDS: VITAMINS A AND D OINT 42 GM TUBE TP SCH (08:27)
[2023-03-15] MEDS: ZINC OXIDE OINT 30 GM TUBE TP SCH ×2 (08:27→21:11)
[2023-03-15] MEDS: HEPARIN SODIUM,PORCINE 5,000 UNITS/ML VIAL SQ SCH ×2 (08:27→21:11)
[2023-03-15] MEDS: [UNRECOGNIZED DRUG - OTHER] TOP SCH ×2 (08:27→21:11)
[2023-03-15] MEDS: REMEDY ESSENTIAL ZINC PASTE 113 GM TOP SCH ×2 (08:27→21:11)
[2023-03-15 09:25] VITALS: O2SAT 99
[2023-03-15] MEDS: HYDROGEN PEROXIDE 3% 118 ML BOTTLE TP SCH ×2 (09:51→19:29)
[2023-03-15 19:02] VITALS: O2SAT 99
[2023-03-15 20:21] VITALS: TEMP 98.6
[2023-03-15] MEDS: OMEGA-3 FATTY ACIDS/FISH OIL CAPSULE GT SCH (21:11)
[2023-03-16] MEDS: JEVITY 1.2 1000 ML LIQUID GT PRN (01:55)
[2023-03-16] MEDS: LORATADINE 10 MG TABLET GT SCH (05:00)
[2023-03-16] MEDS: OMEPRAZOLE 20 MG CAPSULE.DR GT SCH (05:01)
[2023-03-16] MEDS: CHOLECALCIFEROL 1,000 UNIT TABLET GT SCH (05:01)
[2023-03-16 07:24] VITALS: TEMP 98.7
[2023-03-16] MEDS: HYDROGEN PEROXIDE 3% 118 ML BOTTLE TP SCH ×2 (07:29→21:00)
[2023-03-16] MEDS: ZINC OXIDE OINT 30 GM TUBE TP SCH ×2 (08:15→20:29)
[2023-03-16] MEDS: REMEDY ESSENTIAL ZINC PASTE 113 GM TOP SCH ×2 (08:15→20:29)
[2023-03-16] MEDS: VITAMINS A AND D OINT 42 GM TUBE TP SCH (08:15)
[2023-03-16] MEDS: [UNRECOGNIZED DRUG - OTHER] TOP SCH ×2 (08:15→20:29)
[2023-03-16] MEDS: DOCUSATE SODIUM 100 MG/10 ML LIQUID UDC GT SCH ×2 (08:15→20:25)
[2023-03-16] MEDS: [UNRECOGNIZED DRUG - OTHER] GT SCH ×2 (08:15→20:27)
[2023-03-16] MEDS: BACLOFEN 10 MG TABLET GT SCH ×3 (08:15→16:18)
[2023-03-16] MEDS: HEPARIN SODIUM,PORCINE 5,000 UNITS/ML VIAL SQ SCH ×2 (08:16→20:29)
[2023-03-16 10:30] VITALS: O2SAT 99
[2023-03-16 19:51] VITALS: TEMP 98.7
[2023-03-16 20:05] VITALS: O2SAT 99
[2023-03-16] MEDS: OMEGA-3 FATTY ACIDS/FISH OIL CAPSULE GT SCH (20:26)
[2023-03-17] MEDS: JEVITY 1.2 1000 ML LIQUID GT PRN (00:14)
[2023-03-17] MEDS: LORATADINE 10 MG TABLET GT SCH (05:10)
[2023-03-17] MEDS: CHOLECALCIFEROL 1,000 UNIT TABLET GT SCH (05:10)
[2023-03-17] MEDS: OMEPRAZOLE 20 MG CAPSULE.DR GT SCH (05:10)
[2023-03-17 07:33] VITALS: TEMP 98.5
[2023-03-17] MEDS: HYDROGEN PEROXIDE 3% 118 ML BOTTLE TP SCH ×2 (08:55→20:27)
[2023-03-17] MEDS: [UNRECOGNIZED DRUG - OTHER] GT SCH ×2 (09:10→20:25)
[2023-03-17] MEDS: DOCUSATE SODIUM 100 MG/10 ML LIQUID UDC GT SCH ×2 (09:10→20:25)
[2023-03-17] MEDS: BACLOFEN 10 MG TABLET GT SCH ×3 (09:10→17:43)
[2023-03-17] MEDS: VITAMINS A AND D OINT 42 GM TUBE TP SCH (09:11)
[2023-03-17] MEDS: ZINC OXIDE OINT 30 GM TUBE TP SCH ×2 (09:11→20:27)
[2023-03-17] MEDS: KETOCONAZOLE 2% SHAMPOO 120 ML BOTTLE TP SCH (09:11)
[2023-03-17] MEDS: REMEDY ESSENTIAL ZINC PASTE 113 GM TOP SCH ×2 (09:11→20:27)
[2023-03-17] MEDS: [UNRECOGNIZED DRUG - OTHER] TOP SCH ×2 (09:11→20:27)
[2023-03-17] MEDS: ACETAMINOPHEN 650 MG/20 ML UDC- SA PATIENTS-PAIN ONLY GT PRN (09:13)
[2023-03-17] MEDS: HEPARIN SODIUM,PORCINE 5,000 UNITS/ML VIAL SQ SCH ×2 (09:25→20:26)
[2023-03-17 09:50] VITALS: O2SAT 99
[2023-03-17 20:08] VITALS: TEMP 97.8
[2023-03-17] MEDS: OMEGA-3 FATTY ACIDS/FISH OIL CAPSULE GT SCH (20:25)
[2023-03-18] MEDS: JEVITY 1.2 1000 ML LIQUID GT PRN (00:35)
[2023-03-18] MEDS: LORATADINE 10 MG TABLET GT SCH (06:14)
[2023-03-18] MEDS: CHOLECALCIFEROL 1,000 UNIT TABLET GT SCH (06:14)
[2023-03-18] MEDS: OMEPRAZOLE 20 MG CAPSULE.DR GT SCH (06:14)
[2023-03-18 07:25] VITALS: O2SAT 99
[2023-03-18 07:53] VITALS: TEMP 98.3
[2023-03-18] MEDS: DOCUSATE SODIUM 100 MG/10 ML LIQUID UDC GT SCH ×2 (08:49→21:58)
[2023-03-18] MEDS: [UNRECOGNIZED DRUG - OTHER] TOP SCH ×2 (08:49→21:59)
[2023-03-18] MEDS: HEPARIN SODIUM,PORCINE 5,000 UNITS/ML VIAL SQ SCH ×2 (08:49→21:59)
[2023-03-18] MEDS: [UNRECOGNIZED DRUG - OTHER] GT SCH ×2 (08:49→21:58)
[2023-03-18] MEDS: BACLOFEN 10 MG TABLET GT SCH ×3 (08:49→16:49)
[2023-03-18] MEDS: REMEDY ESSENTIAL ZINC PASTE 113 GM TOP SCH ×2 (08:50→21:59)
[2023-03-18] MEDS: VITAMINS A AND D OINT 42 GM TUBE TP SCH (08:50)
[2023-03-18] MEDS: ZINC OXIDE OINT 30 GM TUBE TP SCH ×2 (08:50→21:59)
[2023-03-18] MEDS: HYDROGEN PEROXIDE 3% 118 ML BOTTLE TP SCH ×2 (09:00→21:00)
[2023-03-18 20:00] VITALS: TEMP 97.4
[2023-03-18 20:15] VITALS: O2SAT 99
[2023-03-18] MEDS: OMEGA-3 FATTY ACIDS/FISH OIL CAPSULE GT SCH (21:58)
[2023-03-19] MEDS: CHOLECALCIFEROL 1,000 UNIT TABLET GT SCH (06:20)
[2023-03-19] MEDS: LORATADINE 10 MG TABLET GT SCH (06:20)
[2023-03-19] MEDS: OMEPRAZOLE 20 MG CAPSULE.DR GT SCH (06:20)
[2023-03-19 07:15] VITALS: O2SAT 99
[2023-03-19] MEDS: HYDROGEN PEROXIDE 3% 118 ML BOTTLE TP SCH ×2 (07:15→19:06)
[2023-03-19 07:59] VITALS: TEMP 97.7
[2023-03-19] MEDS: REMEDY ESSENTIAL ZINC PASTE 113 GM TOP SCH ×2 (08:09→20:44)
[2023-03-19] MEDS: BACLOFEN 10 MG TABLET GT SCH ×3 (08:09→17:44)
[2023-03-19] MEDS: DOCUSATE SODIUM 100 MG/10 ML LIQUID UDC GT SCH ×2 (08:09→20:40)
[2023-03-19] MEDS: [UNRECOGNIZED DRUG - OTHER] TOP SCH ×2 (08:09→20:43)
[2023-03-19] MEDS: [UNRECOGNIZED DRUG - OTHER] GT SCH ×2 (08:09→20:40)
[2023-03-19] MEDS: ZINC OXIDE OINT 30 GM TUBE TP SCH ×2 (08:11→20:44)
[2023-03-19] MEDS: VITAMINS A AND D OINT 42 GM TUBE TP SCH (08:11)
[2023-03-19] MEDS: HEPARIN SODIUM,PORCINE 5,000 UNITS/ML VIAL SQ SCH ×2 (08:11→20:43)
[2023-03-19] MEDS: JEVITY 1.2 1000 ML LIQUID GT PRN (18:04)
[2023-03-19 19:55] VITALS: O2SAT 99
[2023-03-19] MEDS: OMEGA-3 FATTY ACIDS/FISH OIL CAPSULE GT SCH (20:40)
[2023-03-19 20:44] VITALS: TEMP 98.7
[2023-03-20] MEDS: CHOLECALCIFEROL 1,000 UNIT TABLET GT SCH (06:07)
[2023-03-20] MEDS: OMEPRAZOLE 20 MG CAPSULE.DR GT SCH (06:07)
[2023-03-20] MEDS: LORATADINE 10 MG TABLET GT SCH (06:07)
[2023-03-20] MEDS: HYDROGEN PEROXIDE 3% 118 ML BOTTLE TP SCH ×2 (07:19→19:03)
[2023-03-20 07:37] VITALS: TEMP 98.2
[2023-03-20] MEDS: DOCUSATE SODIUM 100 MG/10 ML LIQUID UDC GT SCH ×2 (08:27→20:41)
[2023-03-20] MEDS: BACLOFEN 10 MG TABLET GT SCH ×3 (08:28→17:44)
[2023-03-20] MEDS: [UNRECOGNIZED DRUG - OTHER] GT SCH ×2 (08:29→20:41)
[2023-03-20] MEDS: HEPARIN SODIUM,PORCINE 5,000 UNITS/ML VIAL SQ SCH ×2 (08:32→20:52)
[2023-03-20] MEDS: REMEDY ESSENTIAL ZINC PASTE 113 GM TOP SCH ×2 (09:00→20:42)
[2023-03-20] MEDS: ZINC OXIDE OINT 30 GM TUBE TP SCH ×2 (09:00→20:42)
[2023-03-20] MEDS: KETOCONAZOLE 2% SHAMPOO 120 ML BOTTLE TP SCH (09:00)
[2023-03-20] MEDS: [UNRECOGNIZED DRUG - OTHER] TOP SCH ×2 (09:00→20:42)
[2023-03-20] MEDS: VITAMINS A AND D OINT 42 GM TUBE TP SCH (09:00)
[2023-03-20 10:40] VITALS: O2SAT 99
[2023-03-20 19:35] VITALS: O2SAT 99
[2023-03-20] MEDS: OMEGA-3 FATTY ACIDS/FISH OIL CAPSULE GT SCH (20:41)
[2023-03-20 20:48] VITALS: TEMP 98
[2023-03-21] MEDS: OMEPRAZOLE 20 MG CAPSULE.DR GT SCH (05:00)
[2023-03-21] MEDS: LORATADINE 10 MG TABLET GT SCH (05:00)
[2023-03-21] MEDS: CHOLECALCIFEROL 1,000 UNIT TABLET GT SCH (05:00)
[2023-03-21 07:41] VITALS: TEMP 98.6
[2023-03-21] MEDS: BACLOFEN 10 MG TABLET GT SCH ×3 (08:37→17:37)
[2023-03-21] MEDS: [UNRECOGNIZED DRUG - OTHER] GT SCH ×2 (08:37→20:40)
[2023-03-21] MEDS: DOCUSATE SODIUM 100 MG/10 ML LIQUID UDC GT SCH ×2 (08:37→20:40)
[2023-03-21] MEDS: VITAMINS A AND D OINT 42 GM TUBE TP SCH (08:38)
[2023-03-21] MEDS: REMEDY ESSENTIAL ZINC PASTE 113 GM TOP SCH ×2 (08:38→20:43)
[2023-03-21] MEDS: ZINC OXIDE OINT 30 GM TUBE TP SCH ×2 (08:38→20:43)
[2023-03-21] MEDS: [UNRECOGNIZED DRUG - OTHER] TOP SCH ×2 (08:38→20:42)
[2023-03-21] MEDS: HEPARIN SODIUM,PORCINE 5,000 UNITS/ML VIAL SQ SCH ×2 (08:38→20:42)
[2023-03-21] MEDS: HYDROGEN PEROXIDE 3% 118 ML BOTTLE TP SCH ×2 (09:39→20:07)
[2023-03-21 09:50] VITALS: O2SAT 99
[2023-03-21 20:26] VITALS: TEMP 98
[2023-03-21] MEDS: OMEGA-3 FATTY ACIDS/FISH OIL CAPSULE GT SCH (20:40)
[2023-03-21] MEDS: JEVITY 1.2 1000 ML LIQUID GT PRN (23:54)
[2023-03-22] MEDS: LORATADINE 10 MG TABLET GT SCH (05:22)
[2023-03-22] MEDS: OMEPRAZOLE 20 MG CAPSULE.DR GT SCH (05:22)
[2023-03-22] MEDS: CHOLECALCIFEROL 1,000 UNIT TABLET GT SCH (05:22)
[2023-03-22 07:25] VITALS: TEMP 98.8
[2023-03-22] MEDS: BACLOFEN 10 MG TABLET GT SCH ×3 (09:06→17:23)
[2023-03-22] MEDS: DOCUSATE SODIUM 100 MG/10 ML LIQUID UDC GT SCH ×2 (09:06→21:41)
[2023-03-22] MEDS: [UNRECOGNIZED DRUG - OTHER] GT SCH ×2 (09:06→21:41)
[2023-03-22] MEDS: HEPARIN SODIUM,PORCINE 5,000 UNITS/ML VIAL SQ SCH ×2 (09:07→21:00)
[2023-03-22] MEDS: REMEDY ESSENTIAL ZINC PASTE 113 GM TOP SCH ×2 (09:08→21:41)
[2023-03-22] MEDS: [UNRECOGNIZED DRUG - OTHER] TOP SCH ×2 (09:08→21:41)
[2023-03-22] MEDS: ZINC OXIDE OINT 30 GM TUBE TP SCH ×2 (09:08→21:41)
[2023-03-22] MEDS: VITAMINS A AND D OINT 42 GM TUBE TP SCH (09:08)
[2023-03-22] MEDS: HYDROGEN PEROXIDE 3% 118 ML BOTTLE TP SCH ×2 (09:26→19:27)
[2023-03-22 09:30] VITALS: O2SAT 99
[2023-03-22 19:27] VITALS: O2SAT 99
[2023-03-22 20:16] VITALS: TEMP 97.3
[2023-03-22] MEDS: OMEGA-3 FATTY ACIDS/FISH OIL CAPSULE GT SCH (21:41)
[2023-03-23] MEDS: JEVITY 1.2 1000 ML LIQUID GT PRN (03:00)
[2023-03-23] MEDS: OMEPRAZOLE 20 MG CAPSULE.DR GT SCH (06:53)
[2023-03-23] MEDS: CHOLECALCIFEROL 1,000 UNIT TABLET GT SCH (06:53)
[2023-03-23] MEDS: LORATADINE 10 MG TABLET GT SCH (06:53)
[2023-03-23 07:15] VITALS: O2SAT 99
[2023-03-23] MEDS: HYDROGEN PEROXIDE 3% 118 ML BOTTLE TP SCH ×2 (07:15→21:00)
[2023-03-23 07:21] VITALS: TEMP 98.3
[2023-03-23] MEDS: DOCUSATE SODIUM 100 MG/10 ML LIQUID UDC GT SCH ×2 (08:26→20:16)
[2023-03-23] MEDS: [UNRECOGNIZED DRUG - OTHER] GT SCH ×2 (08:26→20:16)
[2023-03-23] MEDS: BACLOFEN 10 MG TABLET GT SCH ×3 (08:26→16:52)
[2023-03-23] MEDS: [UNRECOGNIZED DRUG - OTHER] TOP SCH ×2 (08:27→20:18)
[2023-03-23] MEDS: ZINC OXIDE OINT 30 GM TUBE TP SCH ×2 (08:27→20:19)
[2023-03-23] MEDS: HEPARIN SODIUM,PORCINE 5,000 UNITS/ML VIAL SQ SCH ×2 (08:27→20:18)
[2023-03-23] MEDS: REMEDY ESSENTIAL ZINC PASTE 113 GM TOP SCH ×2 (08:27→20:19)
[2023-03-23] MEDS: VITAMINS A AND D OINT 42 GM TUBE TP SCH (08:27)
[2023-03-23 19:15] VITALS: O2SAT 99
[2023-03-23] MEDS: OMEGA-3 FATTY ACIDS/FISH OIL CAPSULE GT SCH (20:16)
[2023-03-23 21:00] VITALS: TEMP 97.6
[2023-03-24] MEDS: OMEPRAZOLE 20 MG CAPSULE.DR GT SCH (06:47)
[2023-03-24] MEDS: CHOLECALCIFEROL 1,000 UNIT TABLET GT SCH (06:47)
[2023-03-24] MEDS: LORATADINE 10 MG TABLET GT SCH (06:47)
[2023-03-24 08:00] VITALS: TEMP 98.8
[2023-03-24] MEDS: HYDROGEN PEROXIDE 3% 118 ML BOTTLE TP SCH ×2 (08:17→21:00)
[2023-03-24] MEDS: DOCUSATE SODIUM 100 MG/10 ML LIQUID UDC GT SCH ×2 (08:22→20:29)
[2023-03-24] MEDS: BACLOFEN 10 MG TABLET GT SCH ×3 (08:22→17:00)
[2023-03-24] MEDS: [UNRECOGNIZED DRUG - OTHER] GT SCH ×2 (08:22→20:29)
[2023-03-24] MEDS: HEPARIN SODIUM,PORCINE 5,000 UNITS/ML VIAL SQ SCH ×2 (08:23→20:30)
[2023-03-24] MEDS: [UNRECOGNIZED DRUG - OTHER] TOP SCH ×2 (08:25→20:29)
[2023-03-24] MEDS: KETOCONAZOLE 2% SHAMPOO 120 ML BOTTLE TP SCH (08:26)
[2023-03-24] MEDS: VITAMINS A AND D OINT 42 GM TUBE TP SCH (08:26)
[2023-03-24] MEDS: REMEDY ESSENTIAL ZINC PASTE 113 GM TOP SCH ×2 (08:26→20:29)
[2023-03-24] MEDS: ZINC OXIDE OINT 30 GM TUBE TP SCH ×2 (08:26→20:29)
[2023-03-24 09:45] VITALS: O2SAT 99
[2023-03-24] MEDS: JEVITY 1.2 1000 ML LIQUID GT PRN (14:32)
[2023-03-24 19:57] VITALS: TEMP 98.5
[2023-03-24 20:10] VITALS: O2SAT 99
[2023-03-24] MEDS: OMEGA-3 FATTY ACIDS/FISH OIL CAPSULE GT SCH (20:29)
[2023-03-25] MEDS: OMEPRAZOLE 20 MG CAPSULE.DR GT SCH (05:40)
[2023-03-25] MEDS: LORATADINE 10 MG TABLET GT SCH (05:40)
[2023-03-25] MEDS: CHOLECALCIFEROL 1,000 UNIT TABLET GT SCH (05:40)
[2023-03-25] MEDS: HYDROGEN PEROXIDE 3% 118 ML BOTTLE TP SCH ×2 (07:25→21:00)
[2023-03-25 08:00] VITALS: TEMP 97.2
[2023-03-25] MEDS: BACLOFEN 10 MG TABLET GT SCH ×3 (08:09→17:23)
[2023-03-25] MEDS: REMEDY ESSENTIAL ZINC PASTE 113 GM TOP SCH ×2 (08:09→20:43)
[2023-03-25] MEDS: [UNRECOGNIZED DRUG - OTHER] TOP SCH ×2 (08:09→20:43)
[2023-03-25] MEDS: VITAMINS A AND D OINT 42 GM TUBE TP SCH (08:09)
[2023-03-25] MEDS: [UNRECOGNIZED DRUG - OTHER] GT SCH ×2 (08:09→20:42)
[2023-03-25] MEDS: ZINC OXIDE OINT 30 GM TUBE TP SCH ×2 (08:09→20:43)
[2023-03-25] MEDS: DOCUSATE SODIUM 100 MG/10 ML LIQUID UDC GT SCH ×2 (08:09→20:42)
[2023-03-25] MEDS: HEPARIN SODIUM,PORCINE 5,000 UNITS/ML VIAL SQ SCH ×2 (08:11→21:00)
[2023-03-25 10:30] VITALS: O2SAT 98
[2023-03-25 20:02] VITALS: TEMP 98.2
[2023-03-25] MEDS: OMEGA-3 FATTY ACIDS/FISH OIL CAPSULE GT SCH (20:42)
[2023-03-26] MEDS: LORATADINE 10 MG TABLET GT SCH (06:11)
[2023-03-26] MEDS: OMEPRAZOLE 20 MG CAPSULE.DR GT SCH (06:12)
[2023-03-26] MEDS: CHOLECALCIFEROL 1,000 UNIT TABLET GT SCH (06:12)
[2023-03-26] MEDS: HYDROGEN PEROXIDE 3% 118 ML BOTTLE TP SCH ×2 (07:15→21:00)
[2023-03-26 07:42] VITALS: TEMP 98.5
[2023-03-26] MEDS: BACLOFEN 10 MG TABLET GT SCH ×3 (08:54→16:51)
[2023-03-26] MEDS: DOCUSATE SODIUM 100 MG/10 ML LIQUID UDC GT SCH ×2 (08:54→20:37)
[2023-03-26] MEDS: [UNRECOGNIZED DRUG - OTHER] TOP SCH ×2 (08:55→20:37)
[2023-03-26] MEDS: [UNRECOGNIZED DRUG - OTHER] GT SCH ×2 (08:55→20:37)
[2023-03-26] MEDS: REMEDY ESSENTIAL ZINC PASTE 113 GM TOP SCH ×2 (08:56→20:37)
[2023-03-26] MEDS: VITAMINS A AND D OINT 42 GM TUBE TP SCH (08:57)
[2023-03-26] MEDS: ZINC OXIDE OINT 30 GM TUBE TP SCH ×2 (08:58→20:37)
[2023-03-26 09:00] VITALS: O2SAT 99
[2023-03-26] MEDS: HEPARIN SODIUM,PORCINE 5,000 UNITS/ML VIAL SQ SCH ×2 (09:02→21:00)
[2023-03-26] MEDS: JEVITY 1.2 1000 ML LIQUID GT PRN (09:23)
[2023-03-26 18:25] VITALS: O2SAT 98
[2023-03-26 20:15] VITALS: TEMP 97.7
[2023-03-26] MEDS: OMEGA-3 FATTY ACIDS/FISH OIL CAPSULE GT SCH (20:37)
[2023-03-27] MEDS: JEVITY 1.2 1000 ML LIQUID GT PRN (03:11)
[2023-03-27] MEDS: OMEPRAZOLE 20 MG CAPSULE.DR GT SCH (05:10)
[2023-03-27] MEDS: LORATADINE 10 MG TABLET GT SCH (05:10)
[2023-03-27] MEDS: CHOLECALCIFEROL 1,000 UNIT TABLET GT SCH (05:10)
[2023-03-27 07:26] VITALS: TEMP 98.5
[2023-03-27] MEDS: REMEDY ESSENTIAL ZINC PASTE 113 GM TOP SCH ×2 (09:42→20:17)
[2023-03-27] MEDS: HYDROGEN PEROXIDE 3% 118 ML BOTTLE TP SCH ×2 (09:42→21:00)
[2023-03-27] MEDS: DOCUSATE SODIUM 100 MG/10 ML LIQUID UDC GT SCH ×2 (09:42→20:17)
[2023-03-27] MEDS: [UNRECOGNIZED DRUG - OTHER] GT SCH ×2 (09:42→20:17)
[2023-03-27] MEDS: KETOCONAZOLE 2% SHAMPOO 120 ML BOTTLE TP SCH (09:42)
[2023-03-27] MEDS: ZINC OXIDE OINT 30 GM TUBE TP SCH ×2 (09:42→20:17)
[2023-03-27] MEDS: BACLOFEN 10 MG TABLET GT SCH ×3 (09:42→16:48)
[2023-03-27] MEDS: VITAMINS A AND D OINT 42 GM TUBE TP SCH (09:42)
[2023-03-27] MEDS: [UNRECOGNIZED DRUG - OTHER] TOP SCH ×2 (09:42→20:17)
[2023-03-27] MEDS: HEPARIN SODIUM,PORCINE 5,000 UNITS/ML VIAL SQ SCH ×2 (09:44→21:00)
[2023-03-27 14:43] VITALS: O2SAT 95
[2023-03-27 19:55] VITALS: TEMP 98.3
[2023-03-27] MEDS: OMEGA-3 FATTY ACIDS/FISH OIL CAPSULE GT SCH (20:17)
[2023-03-27 21:00] VITALS: O2SAT 99
[2023-03-28] MEDS: JEVITY 1.2 1000 ML LIQUID GT PRN (01:18)
[2023-03-28] MEDS: OMEPRAZOLE 20 MG CAPSULE.DR GT SCH (05:14)
[2023-03-28] MEDS: CHOLECALCIFEROL 1,000 UNIT TABLET GT SCH (05:14)
[2023-03-28] MEDS: LORATADINE 10 MG TABLET GT SCH (05:14)
[2023-03-28 07:30] VITALS: TEMP 98.9
[2023-03-28] MEDS: HYDROGEN PEROXIDE 3% 118 ML BOTTLE TP SCH ×2 (08:13→19:11)
[2023-03-28] MEDS: BACLOFEN 10 MG TABLET GT SCH ×3 (09:03→16:56)
[2023-03-28] MEDS: VITAMINS A AND D OINT 42 GM TUBE TP SCH (09:03)
[2023-03-28] MEDS: [UNRECOGNIZED DRUG - OTHER] TOP SCH ×2 (09:03→20:30)
[2023-03-28] MEDS: HEPARIN SODIUM,PORCINE 5,000 UNITS/ML VIAL SQ SCH ×2 (09:03→20:30)
[2023-03-28] MEDS: DOCUSATE SODIUM 100 MG/10 ML LIQUID UDC GT SCH ×2 (09:03→20:29)
[2023-03-28] MEDS: ZINC OXIDE OINT 30 GM TUBE TP SCH ×2 (09:03→20:31)
[2023-03-28] MEDS: [UNRECOGNIZED DRUG - OTHER] GT SCH ×2 (09:03→20:29)
[2023-03-28] MEDS: REMEDY ESSENTIAL ZINC PASTE 113 GM TOP SCH ×2 (09:03→20:31)
[2023-03-28 09:30] VITALS: O2SAT 99
[2023-03-28 19:59] VITALS: TEMP 98.1
[2023-03-28] MEDS: OMEGA-3 FATTY ACIDS/FISH OIL CAPSULE GT SCH (20:29)
[2023-03-28 22:33] VITALS: O2SAT 99
[2023-03-29] MEDS: JEVITY 1.2 1000 ML LIQUID GT PRN (00:19)
[2023-03-29] MEDS: LORATADINE 10 MG TABLET GT SCH (05:27)
[2023-03-29] MEDS: OMEPRAZOLE 20 MG CAPSULE.DR GT SCH (05:27)
[2023-03-29] MEDS: CHOLECALCIFEROL 1,000 UNIT TABLET GT SCH (05:27)
[2023-03-29 08:00] VITALS: TEMP 97.7
[2023-03-29] MEDS: HYDROGEN PEROXIDE 3% 118 ML BOTTLE TP SCH ×2 (08:35→19:43)
[2023-03-29] MEDS: HEPARIN SODIUM,PORCINE 5,000 UNITS/ML VIAL SQ SCH ×2 (09:00→20:48)
[2023-03-29] MEDS: REMEDY ESSENTIAL ZINC PASTE 113 GM TOP SCH ×2 (09:10→20:48)
[2023-03-29] MEDS: DOCUSATE SODIUM 100 MG/10 ML LIQUID UDC GT SCH ×2 (09:10→20:48)
[2023-03-29] MEDS: [UNRECOGNIZED DRUG - OTHER] TOP SCH ×2 (09:10→20:48)
[2023-03-29] MEDS: VITAMINS A AND D OINT 42 GM TUBE TP SCH (09:10)
[2023-03-29] MEDS: [UNRECOGNIZED DRUG - OTHER] GT SCH ×2 (09:10→20:48)
[2023-03-29] MEDS: BACLOFEN 10 MG TABLET GT SCH ×3 (09:10→16:56)
[2023-03-29] MEDS: ZINC OXIDE OINT 30 GM TUBE TP SCH ×2 (09:11→20:48)
[2023-03-29 09:45] VITALS: O2SAT 99
[2023-03-29] MEDS: OMEGA-3 FATTY ACIDS/FISH OIL CAPSULE GT SCH (20:48)
[2023-03-29 22:46] VITALS: TEMP 98.5
[2023-03-30] MEDS: JEVITY 1.2 1000 ML LIQUID GT PRN ×2 (00:30→17:36)
[2023-03-30] MEDS: CHOLECALCIFEROL 1,000 UNIT TABLET GT SCH (05:39)
[2023-03-30] MEDS: LORATADINE 10 MG TABLET GT SCH (05:39)
[2023-03-30] MEDS: OMEPRAZOLE 20 MG CAPSULE.DR GT SCH (05:39)
[2023-03-30 07:23] VITALS: TEMP 99.3
[2023-03-30] MEDS: BACLOFEN 10 MG TABLET GT SCH ×3 (08:14→17:23)
[2023-03-30] MEDS: REMEDY ESSENTIAL ZINC PASTE 113 GM TOP SCH ×2 (08:14→20:13)
[2023-03-30] MEDS: [UNRECOGNIZED DRUG - OTHER] GT SCH ×2 (08:14→20:12)
[2023-03-30] MEDS: [UNRECOGNIZED DRUG - OTHER] TOP SCH ×2 (08:14→20:13)
[2023-03-30] MEDS: VITAMINS A AND D OINT 42 GM TUBE TP SCH (08:14)
[2023-03-30] MEDS: DOCUSATE SODIUM 100 MG/10 ML LIQUID UDC GT SCH ×2 (08:14→20:10)
[2023-03-30] MEDS: ZINC OXIDE OINT 30 GM TUBE TP SCH ×2 (08:14→20:13)
[2023-03-30] MEDS: HEPARIN SODIUM,PORCINE 5,000 UNITS/ML VIAL SQ SCH ×2 (08:15→20:13)
[2023-03-30] MEDS: HYDROGEN PEROXIDE 3% 118 ML BOTTLE TP SCH ×2 (08:30→19:18)
[2023-03-30 10:40] VITALS: O2SAT 97
[2023-03-30 20:00] VITALS: O2SAT 99
[2023-03-30] MEDS: OMEGA-3 FATTY ACIDS/FISH OIL CAPSULE GT SCH (20:12)
[2023-03-30 20:19] VITALS: TEMP 98.6
[2023-03-31] MEDS: CHOLECALCIFEROL 1,000 UNIT TABLET GT SCH (05:53)
[2023-03-31] MEDS: LORATADINE 10 MG TABLET GT SCH (05:53)
[2023-03-31] MEDS: OMEPRAZOLE 20 MG CAPSULE.DR GT SCH (05:53)
[2023-03-31 07:25] VITALS: O2SAT 97
[2023-03-31 07:39] VITALS: TEMP 98.7
[2023-03-31] MEDS: HYDROGEN PEROXIDE 3% 118 ML BOTTLE TP SCH ×2 (08:53→21:07)
[2023-03-31] MEDS: DOCUSATE SODIUM 100 MG/10 ML LIQUID UDC GT SCH ×2 (09:13→20:09)
[2023-03-31] MEDS: BACLOFEN 10 MG TABLET GT SCH ×3 (09:13→17:34)
[2023-03-31] MEDS: KETOCONAZOLE 2% SHAMPOO 120 ML BOTTLE TP SCH (09:14)
[2023-03-31] MEDS: REMEDY ESSENTIAL ZINC PASTE 113 GM TOP SCH ×2 (09:14→20:10)
[2023-03-31] MEDS: [UNRECOGNIZED DRUG - OTHER] GT SCH ×2 (09:14→20:09)
[2023-03-31] MEDS: VITAMINS A AND D OINT 42 GM TUBE TP SCH (09:14)
[2023-03-31] MEDS: [UNRECOGNIZED DRUG - OTHER] TOP SCH ×2 (09:14→20:09)
[2023-03-31] MEDS: ZINC OXIDE OINT 30 GM TUBE TP SCH ×2 (09:14→20:10)
[2023-03-31] MEDS: HEPARIN SODIUM,PORCINE 5,000 UNITS/ML VIAL SQ SCH ×2 (09:18→20:09)
[2023-03-31] MEDS: JEVITY 1.2 1000 ML LIQUID GT PRN (14:00)
[2023-03-31 20:03] VITALS: O2SAT 99
[2023-03-31] MEDS: OMEGA-3 FATTY ACIDS/FISH OIL CAPSULE GT SCH (20:09)
[2023-03-31 23:21] VITALS: TEMP 97.6
[2023-04-01] MEDS: OMEPRAZOLE 20 MG CAPSULE.DR GT SCH (05:53)
[2023-04-01] MEDS: LORATADINE 10 MG TABLET GT SCH (05:53)
[2023-04-01] MEDS: CHOLECALCIFEROL 1,000 UNIT TABLET GT SCH (05:53)
[2023-04-01 07:38] VITALS: TEMP 98.2
[2023-04-01] MEDS: [UNRECOGNIZED DRUG - OTHER] GT SCH ×2 (09:11→20:03)
[2023-04-01] MEDS: BACLOFEN 10 MG TABLET GT SCH ×3 (09:11→17:28)
[2023-04-01] MEDS: DOCUSATE SODIUM 100 MG/10 ML LIQUID UDC GT SCH ×2 (09:11→20:03)
[2023-04-01] MEDS: ZINC OXIDE OINT 30 GM TUBE TP SCH ×2 (09:12→20:04)
[2023-04-01] MEDS: REMEDY ESSENTIAL ZINC PASTE 113 GM TOP SCH ×2 (09:12→20:04)
[2023-04-01] MEDS: VITAMINS A AND D OINT 42 GM TUBE TP SCH (09:12)
[2023-04-01] MEDS: HEPARIN SODIUM,PORCINE 5,000 UNITS/ML VIAL SQ SCH ×2 (09:12→20:04)
[2023-04-01] MEDS: [UNRECOGNIZED DRUG - OTHER] TOP SCH ×2 (09:12→20:04)
[2023-04-01] MEDS: HYDROGEN PEROXIDE 3% 118 ML BOTTLE TP SCH ×2 (09:19→21:27)
[2023-04-01 12:35] VITALS: O2SAT 95
[2023-04-01 20:00] VITALS: O2SAT 99
[2023-04-01] MEDS: OMEGA-3 FATTY ACIDS/FISH OIL CAPSULE GT SCH (20:03)
[2023-04-01 23:02] VITALS: TEMP 98.6
[2023-04-01 23:04] VITALS: TEMP 98.3
[2023-04-02] MEDS: JEVITY 1.2 1000 ML LIQUID GT PRN ×2 (02:16→22:00)
[2023-04-02] MEDS: LORATADINE 10 MG TABLET GT SCH (05:54)
[2023-04-02] MEDS: OMEPRAZOLE 20 MG CAPSULE.DR GT SCH (05:54)
[2023-04-02] MEDS: CHOLECALCIFEROL 1,000 UNIT TABLET GT SCH (05:54)
[2023-04-02 08:12] VITALS: TEMP 98.2
[2023-04-02 08:24] VITALS: O2SAT 95
[2023-04-02] MEDS: ZINC OXIDE OINT 30 GM TUBE TP SCH ×2 (09:00→20:43)
[2023-04-02] MEDS: [UNRECOGNIZED DRUG - OTHER] TOP SCH ×2 (09:00→20:42)
[2023-04-02] MEDS: VITAMINS A AND D OINT 42 GM TUBE TP SCH (09:00)
[2023-04-02] MEDS: REMEDY ESSENTIAL ZINC PASTE 113 GM TOP SCH ×2 (09:00→20:43)
[2023-04-02] MEDS: BACLOFEN 10 MG TABLET GT SCH ×3 (09:08→17:00)
[2023-04-02] MEDS: [UNRECOGNIZED DRUG - OTHER] GT SCH ×2 (09:09→20:41)
[2023-04-02] MEDS: DOCUSATE SODIUM 100 MG/10 ML LIQUID UDC GT SCH ×2 (09:09→20:40)
[2023-04-02] MEDS: HEPARIN SODIUM,PORCINE 5,000 UNITS/ML VIAL SQ SCH ×2 (09:12→20:42)
[2023-04-02] MEDS: HYDROGEN PEROXIDE 3% 118 ML BOTTLE TP SCH ×2 (09:37→21:48)
[2023-04-02 20:15] VITALS: TEMP 97.7
[2023-04-02 20:30] VITALS: O2SAT 99
[2023-04-02] MEDS: OMEGA-3 FATTY ACIDS/FISH OIL CAPSULE GT SCH (20:41)
[2023-04-03] MEDS: OMEPRAZOLE 20 MG CAPSULE.DR GT SCH (05:23)
[2023-04-03] MEDS: CHOLECALCIFEROL 1,000 UNIT TABLET GT SCH (05:23)
[2023-04-03] MEDS: LORATADINE 10 MG TABLET GT SCH (05:23)
[2023-04-03 07:15] VITALS: O2SAT 95
[2023-04-03 08:00] VITALS: TEMP 98
[2023-04-03] MEDS: [UNRECOGNIZED DRUG - OTHER] GT SCH ×2 (08:47→20:28)
[2023-04-03] MEDS: DOCUSATE SODIUM 100 MG/10 ML LIQUID UDC GT SCH ×2 (08:47→20:28)
[2023-04-03] MEDS: BACLOFEN 10 MG TABLET GT SCH ×3 (08:47→17:18)
[2023-04-03] MEDS: HEPARIN SODIUM,PORCINE 5,000 UNITS/ML VIAL SQ SCH ×2 (08:48→21:00)
[2023-04-03] MEDS: KETOCONAZOLE 2% SHAMPOO 120 ML BOTTLE TP SCH (09:10)
[2023-04-03] MEDS: REMEDY ESSENTIAL ZINC PASTE 113 GM TOP SCH ×2 (09:10→20:29)
[2023-04-03] MEDS: [UNRECOGNIZED DRUG - OTHER] TOP SCH ×2 (09:10→20:29)
[2023-04-03] MEDS: VITAMINS A AND D OINT 42 GM TUBE TP SCH (09:10)
[2023-04-03] MEDS: HYDROGEN PEROXIDE 3% 118 ML BOTTLE TP SCH ×2 (09:10→22:28)
[2023-04-03] MEDS: ZINC OXIDE OINT 30 GM TUBE TP SCH ×2 (09:10→20:29)
[2023-04-03 19:55] VITALS: O2SAT 99
[2023-04-03] MEDS: OMEGA-3 FATTY ACIDS/FISH OIL CAPSULE GT SCH (20:28)
[2023-04-03 20:53] VITALS: TEMP 97.8
[2023-04-04] MEDS: LORATADINE 10 MG TABLET GT SCH (06:18)
[2023-04-04] MEDS: OMEPRAZOLE 20 MG CAPSULE.DR GT SCH (06:18)
[2023-04-04] MEDS: CHOLECALCIFEROL 1,000 UNIT TABLET GT SCH (06:18)
[2023-04-04 07:35] VITALS: TEMP 98.4
[2023-04-04] MEDS: VITAMINS A AND D OINT 42 GM TUBE TP SCH (09:00)
[2023-04-04] MEDS: REMEDY ESSENTIAL ZINC PASTE 113 GM TOP SCH ×2 (09:00→21:00)
[2023-04-04] MEDS: [UNRECOGNIZED DRUG - OTHER] TOP SCH ×2 (09:00→21:00)
[2023-04-04] MEDS: ZINC OXIDE OINT 30 GM TUBE TP SCH ×2 (09:00→21:00)
[2023-04-04] MEDS: HYDROGEN PEROXIDE 3% 118 ML BOTTLE TP SCH ×2 (09:22→21:10)
[2023-04-04 09:35] VITALS: O2SAT 95
[2023-04-04] MEDS: DOCUSATE SODIUM 100 MG/10 ML LIQUID UDC GT SCH ×2 (09:48→21:00)
[2023-04-04] MEDS: [UNRECOGNIZED DRUG - OTHER] GT SCH ×2 (09:49→21:00)
[2023-04-04] MEDS: BACLOFEN 10 MG TABLET GT SCH ×3 (09:49→17:46)
[2023-04-04] MEDS: HEPARIN SODIUM,PORCINE 5,000 UNITS/ML VIAL SQ SCH ×2 (09:55→21:00)
[2023-04-04] MEDS: JEVITY 1.2 1000 ML LIQUID GT PRN (18:52)
[2023-04-04 20:18] VITALS: TEMP 98.3
[2023-04-04 20:40] VITALS: O2SAT 99
[2023-04-04] MEDS: OMEGA-3 FATTY ACIDS/FISH OIL CAPSULE GT SCH (21:00)
[2023-04-05] MEDS: CHOLECALCIFEROL 1,000 UNIT TABLET GT SCH (05:19)
[2023-04-05] MEDS: LORATADINE 10 MG TABLET GT SCH (05:19)
[2023-04-05] MEDS: OMEPRAZOLE 20 MG CAPSULE.DR GT SCH (05:19)
[2023-04-05 07:28] VITALS: TEMP 98.8
[2023-04-05] MEDS: HEPARIN SODIUM,PORCINE 5,000 UNITS/ML VIAL SQ SCH ×2 (08:59→21:25)
[2023-04-05] MEDS: BACLOFEN 10 MG TABLET GT SCH ×3 (09:00→17:39)
[2023-04-05] MEDS: VITAMINS A AND D OINT 42 GM TUBE TP SCH (09:00)
[2023-04-05] MEDS: [UNRECOGNIZED DRUG - OTHER] TOP SCH ×2 (09:00→21:27)
[2023-04-05] MEDS: ZINC OXIDE OINT 30 GM TUBE TP SCH ×2 (09:00→21:27)
[2023-04-05] MEDS: REMEDY ESSENTIAL ZINC PASTE 113 GM TOP SCH ×2 (09:00→21:27)
[2023-04-05] MEDS: [UNRECOGNIZED DRUG - OTHER] GT SCH ×2 (09:00→21:24)
[2023-04-05] MEDS: DOCUSATE SODIUM 100 MG/10 ML LIQUID UDC GT SCH ×2 (09:00→21:23)
[2023-04-05] MEDS: HYDROGEN PEROXIDE 3% 118 ML BOTTLE TP SCH ×2 (09:15→19:23)
[2023-04-05 10:00] VITALS: O2SAT 95
[2023-04-05 19:55] VITALS: O2SAT 99
[2023-04-05 19:56] VITALS: TEMP 98.8
[2023-04-05] MEDS: OMEGA-3 FATTY ACIDS/FISH OIL CAPSULE GT SCH (21:24)
[2023-04-06] MEDS: LORATADINE 10 MG TABLET GT SCH (06:03)
[2023-04-06] MEDS: CHOLECALCIFEROL 1,000 UNIT TABLET GT SCH (06:03)
[2023-04-06] MEDS: OMEPRAZOLE 20 MG CAPSULE.DR GT SCH (06:03)
[2023-04-06 07:10] VITALS: O2SAT 95
[2023-04-06 07:28] VITALS: TEMP 98.8
[2023-04-06] MEDS: DOCUSATE SODIUM 100 MG/10 ML LIQUID UDC GT SCH ×2 (08:30→21:24)
[2023-04-06] MEDS: BACLOFEN 10 MG TABLET GT SCH ×3 (08:30→16:53)
[2023-04-06] MEDS: HEPARIN SODIUM,PORCINE 5,000 UNITS/ML VIAL SQ SCH ×2 (08:31→21:27)
[2023-04-06] MEDS: [UNRECOGNIZED DRUG - OTHER] TOP SCH ×2 (08:32→21:29)
[2023-04-06] MEDS: ZINC OXIDE OINT 30 GM TUBE TP SCH ×2 (08:32→21:29)
[2023-04-06] MEDS: REMEDY ESSENTIAL ZINC PASTE 113 GM TOP SCH ×2 (08:32→21:29)
[2023-04-06] MEDS: [UNRECOGNIZED DRUG - OTHER] GT SCH ×2 (08:32→21:27)
[2023-04-06] MEDS: VITAMINS A AND D OINT 42 GM TUBE TP SCH (08:32)
[2023-04-06] MEDS: HYDROGEN PEROXIDE 3% 118 ML BOTTLE TP SCH ×2 (09:31→19:06)
[2023-04-06 19:47] VITALS: TEMP 98.7
[2023-04-06 19:55] VITALS: O2SAT 99
[2023-04-06] MEDS: OMEGA-3 FATTY ACIDS/FISH OIL CAPSULE GT SCH (21:24)
[2023-04-07] MEDS: JEVITY 1.2 1000 ML LIQUID GT PRN (03:51)
[2023-04-07] MEDS: LORATADINE 10 MG TABLET GT SCH (05:26)
[2023-04-07] MEDS: CHOLECALCIFEROL 1,000 UNIT TABLET GT SCH (05:26)
[2023-04-07] MEDS: OMEPRAZOLE 20 MG CAPSULE.DR GT SCH (05:26)
[2023-04-07 08:00] VITALS: TEMP 97.7
[2023-04-07] MEDS: HYDROGEN PEROXIDE 3% 118 ML BOTTLE TP SCH ×2 (08:54→21:01)
[2023-04-07] MEDS: HEPARIN SODIUM,PORCINE 5,000 UNITS/ML VIAL SQ SCH ×2 (08:55→20:40)
[2023-04-07] MEDS: ZINC OXIDE OINT 30 GM TUBE TP SCH ×2 (08:57→20:42)
[2023-04-07] MEDS: KETOCONAZOLE 2% SHAMPOO 120 ML BOTTLE TP SCH (08:57)
[2023-04-07] MEDS: REMEDY ESSENTIAL ZINC PASTE 113 GM TOP SCH ×2 (08:57→20:42)
[2023-04-07] MEDS: VITAMINS A AND D OINT 42 GM TUBE TP SCH (08:57)
[2023-04-07] MEDS: [UNRECOGNIZED DRUG - OTHER] TOP SCH ×2 (08:57→20:42)
[2023-04-07] MEDS: BACLOFEN 10 MG TABLET GT SCH ×3 (08:59→17:31)
[2023-04-07] MEDS: DOCUSATE SODIUM 100 MG/10 ML LIQUID UDC GT SCH ×2 (08:59→20:39)
[2023-04-07] MEDS: [UNRECOGNIZED DRUG - OTHER] GT SCH ×2 (08:59→20:39)
[2023-04-07 09:40] VITALS: O2SAT 99
[2023-04-07 19:49] VITALS: TEMP 98.6
[2023-04-07] MEDS: OMEGA-3 FATTY ACIDS/FISH OIL CAPSULE GT SCH (20:39)
[2023-04-07 20:56] VITALS: O2SAT 99
[2023-04-08] MEDS: JEVITY 1.2 1000 ML LIQUID GT PRN (03:00)
[2023-04-08] MEDS: CHOLECALCIFEROL 1,000 UNIT TABLET GT SCH (06:05)
[2023-04-08] MEDS: OMEPRAZOLE 20 MG CAPSULE.DR GT SCH (06:05)
[2023-04-08] MEDS: LORATADINE 10 MG TABLET GT SCH (06:05)
[2023-04-08 07:20] VITALS: O2SAT 99
[2023-04-08 08:00] VITALS: TEMP 97.7
[2023-04-08] MEDS: HYDROGEN PEROXIDE 3% 118 ML BOTTLE TP SCH ×2 (08:57→19:07)
[2023-04-08] MEDS: [UNRECOGNIZED DRUG - OTHER] GT SCH ×2 (09:36→20:34)
[2023-04-08] MEDS: DOCUSATE SODIUM 100 MG/10 ML LIQUID UDC GT SCH ×2 (09:36→20:34)
[2023-04-08] MEDS: [UNRECOGNIZED DRUG - OTHER] TOP SCH ×2 (09:36→20:40)
[2023-04-08] MEDS: BACLOFEN 10 MG TABLET GT SCH ×3 (09:36→17:43)
[2023-04-08] MEDS: HEPARIN SODIUM,PORCINE 5,000 UNITS/ML VIAL SQ SCH ×2 (09:37→20:36)
[2023-04-08] MEDS: REMEDY ESSENTIAL ZINC PASTE 113 GM TOP SCH ×2 (09:37→20:40)
[2023-04-08] MEDS: ZINC OXIDE OINT 30 GM TUBE TP SCH ×2 (09:37→20:40)
[2023-04-08] MEDS: VITAMINS A AND D OINT 42 GM TUBE TP SCH (09:37)
[2023-04-08 19:50] VITALS: O2SAT 99
[2023-04-08 20:00] VITALS: TEMP 98.6
[2023-04-08] MEDS: OMEGA-3 FATTY ACIDS/FISH OIL CAPSULE GT SCH (20:34)
[2023-04-09] MEDS: JEVITY 1.2 1000 ML LIQUID GT PRN (00:35)
[2023-04-09] MEDS: LORATADINE 10 MG TABLET GT SCH (05:31)
[2023-04-09] MEDS: CHOLECALCIFEROL 1,000 UNIT TABLET GT SCH (05:31)
[2023-04-09] MEDS: OMEPRAZOLE 20 MG CAPSULE.DR GT SCH (05:31)
[2023-04-09] MEDS: HYDROGEN PEROXIDE 3% 118 ML BOTTLE TP SCH ×2 (07:36→21:32)
[2023-04-09 08:00] VITALS: TEMP 99.1
[2023-04-09] MEDS: DOCUSATE SODIUM 100 MG/10 ML LIQUID UDC GT SCH ×2 (08:46→20:31)
[2023-04-09] MEDS: [UNRECOGNIZED DRUG - OTHER] GT SCH ×2 (08:46→20:31)
[2023-04-09] MEDS: BACLOFEN 10 MG TABLET GT SCH ×3 (08:46→17:37)
[2023-04-09] MEDS: REMEDY ESSENTIAL ZINC PASTE 113 GM TOP SCH ×2 (08:47→20:34)
[2023-04-09] MEDS: HEPARIN SODIUM,PORCINE 5,000 UNITS/ML VIAL SQ SCH ×2 (08:47→20:50)
[2023-04-09] MEDS: VITAMINS A AND D OINT 42 GM TUBE TP SCH (08:47)
[2023-04-09] MEDS: [UNRECOGNIZED DRUG - OTHER] TOP SCH ×2 (08:47→20:34)
[2023-04-09] MEDS: ZINC OXIDE OINT 30 GM TUBE TP SCH ×2 (08:47→20:34)
[2023-04-09 10:30] VITALS: O2SAT 98
[2023-04-09 20:00] VITALS: TEMP 97.6
[2023-04-09] MEDS: OMEGA-3 FATTY ACIDS/FISH OIL CAPSULE GT SCH (20:31)
[2023-04-09 21:00] VITALS: O2SAT 99
[2023-04-10] MEDS: JEVITY 1.2 1000 ML LIQUID GT PRN (02:00)
[2023-04-10] MEDS: OMEPRAZOLE 20 MG CAPSULE.DR GT SCH (05:45)
[2023-04-10] MEDS: CHOLECALCIFEROL 1,000 UNIT TABLET GT SCH (05:45)
[2023-04-10] MEDS: LORATADINE 10 MG TABLET GT SCH (05:45)
[2023-04-10 08:00] VITALS: TEMP 98
[2023-04-10] MEDS: HYDROGEN PEROXIDE 3% 118 ML BOTTLE TP SCH ×2 (09:11→21:00)
[2023-04-10] MEDS: ZINC OXIDE OINT 30 GM TUBE TP SCH ×2 (09:21→20:34)
[2023-04-10] MEDS: [UNRECOGNIZED DRUG - OTHER] GT SCH ×2 (09:21→20:34)
[2023-04-10] MEDS: VITAMINS A AND D OINT 42 GM TUBE TP SCH (09:21)
[2023-04-10] MEDS: BACLOFEN 10 MG TABLET GT SCH ×3 (09:21→16:47)
[2023-04-10] MEDS: REMEDY ESSENTIAL ZINC PASTE 113 GM TOP SCH ×2 (09:21→20:34)
[2023-04-10] MEDS: DOCUSATE SODIUM 100 MG/10 ML LIQUID UDC GT SCH ×2 (09:21→20:34)
[2023-04-10] MEDS: [UNRECOGNIZED DRUG - OTHER] TOP SCH ×2 (09:21→20:34)
[2023-04-10] MEDS: HEPARIN SODIUM,PORCINE 5,000 UNITS/ML VIAL SQ SCH ×2 (09:21→21:00)
[2023-04-10] MEDS: KETOCONAZOLE 2% SHAMPOO 120 ML BOTTLE TP SCH (09:21)
[2023-04-10 15:28] VITALS: O2SAT 95
[2023-04-10 20:22] VITALS: TEMP 98.7
[2023-04-10] MEDS: OMEGA-3 FATTY ACIDS/FISH OIL CAPSULE GT SCH (20:34)
[2023-04-11] MEDS: CHOLECALCIFEROL 1,000 UNIT TABLET GT SCH (06:58)
[2023-04-11] MEDS: LORATADINE 10 MG TABLET GT SCH (06:58)
[2023-04-11] MEDS: OMEPRAZOLE 20 MG CAPSULE.DR GT SCH (06:58)
[2023-04-11 07:30] VITALS: TEMP 98
[2023-04-11] MEDS: BACLOFEN 10 MG TABLET GT SCH ×3 (08:50→17:14)
[2023-04-11] MEDS: [UNRECOGNIZED DRUG - OTHER] TOP SCH ×2 (08:50→20:23)
[2023-04-11] MEDS: DOCUSATE SODIUM 100 MG/10 ML LIQUID UDC GT SCH ×2 (08:50→20:23)
[2023-04-11] MEDS: [UNRECOGNIZED DRUG - OTHER] GT SCH ×2 (08:50→20:23)
[2023-04-11] MEDS: HEPARIN SODIUM,PORCINE 5,000 UNITS/ML VIAL SQ SCH ×2 (08:51→20:23)
[2023-04-11] MEDS: VITAMINS A AND D OINT 42 GM TUBE TP SCH (08:51)
[2023-04-11] MEDS: REMEDY ESSENTIAL ZINC PASTE 113 GM TOP SCH ×2 (08:51→20:23)
[2023-04-11] MEDS: ZINC OXIDE OINT 30 GM TUBE TP SCH ×2 (08:51→20:23)
[2023-04-11 09:10] VITALS: O2SAT 99
[2023-04-11] MEDS: HYDROGEN PEROXIDE 3% 118 ML BOTTLE TP SCH ×2 (09:10→20:12)
[2023-04-11 20:05] VITALS: TEMP 98.7
[2023-04-11] MEDS: OMEGA-3 FATTY ACIDS/FISH OIL CAPSULE GT SCH (20:23)
[2023-04-12] MEDS: JEVITY 1.2 1000 ML LIQUID GT PRN (03:00)
[2023-04-12] MEDS: OMEPRAZOLE 20 MG CAPSULE.DR GT SCH (05:23)
[2023-04-12] MEDS: LORATADINE 10 MG TABLET GT SCH (05:23)
[2023-04-12] MEDS: CHOLECALCIFEROL 1,000 UNIT TABLET GT SCH (05:23)
[2023-04-12 07:25] VITALS: TEMP 98.9
[2023-04-12] MEDS: [UNRECOGNIZED DRUG - OTHER] GT SCH ×2 (08:50→20:25)
[2023-04-12] MEDS: DOCUSATE SODIUM 100 MG/10 ML LIQUID UDC GT SCH ×2 (08:50→20:25)
[2023-04-12] MEDS: HEPARIN SODIUM,PORCINE 5,000 UNITS/ML VIAL SQ SCH ×2 (08:50→20:26)
[2023-04-12] MEDS: BACLOFEN 10 MG TABLET GT SCH ×3 (08:50→17:09)
[2023-04-12] MEDS: REMEDY ESSENTIAL ZINC PASTE 113 GM TOP SCH ×2 (08:51→20:26)
[2023-04-12] MEDS: VITAMINS A AND D OINT 42 GM TUBE TP SCH (08:51)
[2023-04-12] MEDS: ZINC OXIDE OINT 30 GM TUBE TP SCH ×2 (08:51→20:26)
[2023-04-12] MEDS: [UNRECOGNIZED DRUG - OTHER] TOP SCH ×2 (08:51→20:26)
[2023-04-12] MEDS: HYDROGEN PEROXIDE 3% 118 ML BOTTLE TP SCH ×2 (09:41→21:00)
[2023-04-12 10:05] VITALS: O2SAT 98
[2023-04-12 19:36] VITALS: TEMP 98.8
[2023-04-12 20:05] VITALS: O2SAT 99
[2023-04-12] MEDS: OMEGA-3 FATTY ACIDS/FISH OIL CAPSULE GT SCH (20:25)
[2023-04-13] MEDS: JEVITY 1.2 1000 ML LIQUID GT PRN (03:00)
[2023-04-13] MEDS: LORATADINE 10 MG TABLET GT SCH (06:55)
[2023-04-13] MEDS: CHOLECALCIFEROL 1,000 UNIT TABLET GT SCH (06:55)
[2023-04-13] MEDS: OMEPRAZOLE 20 MG CAPSULE.DR GT SCH (06:55)
[2023-04-13 07:24] VITALS: TEMP 99.4
[2023-04-13 07:26] VITALS: TEMP 97.8
[2023-04-13] MEDS: HYDROGEN PEROXIDE 3% 118 ML BOTTLE TP SCH ×2 (07:28→19:02)
[2023-04-13] MEDS: [UNRECOGNIZED DRUG - OTHER] GT SCH ×2 (08:50→20:12)
[2023-04-13] MEDS: DOCUSATE SODIUM 100 MG/10 ML LIQUID UDC GT SCH ×2 (08:50→20:12)
[2023-04-13] MEDS: BACLOFEN 10 MG TABLET GT SCH ×3 (08:50→16:32)
[2023-04-13] MEDS: ZINC OXIDE OINT 30 GM TUBE TP SCH ×2 (08:51→20:12)
[2023-04-13] MEDS: REMEDY ESSENTIAL ZINC PASTE 113 GM TOP SCH ×2 (08:51→20:12)
[2023-04-13] MEDS: [UNRECOGNIZED DRUG - OTHER] TOP SCH ×2 (08:51→20:12)
[2023-04-13] MEDS: VITAMINS A AND D OINT 42 GM TUBE TP SCH (08:51)
[2023-04-13] MEDS: HEPARIN SODIUM,PORCINE 5,000 UNITS/ML VIAL SQ SCH ×2 (08:53→20:12)
[2023-04-13 10:30] VITALS: O2SAT 99
[2023-04-13 19:59] VITALS: TEMP 98.6
[2023-04-13] MEDS: OMEGA-3 FATTY ACIDS/FISH OIL CAPSULE GT SCH (20:12)
[2023-04-13 20:40] VITALS: O2SAT 99
[2023-04-14] MEDS: JEVITY 1.2 1000 ML LIQUID GT PRN (03:00)
[2023-04-14] MEDS: LORATADINE 10 MG TABLET GT SCH (06:39)
[2023-04-14] MEDS: OMEPRAZOLE 20 MG CAPSULE.DR GT SCH (06:39)
[2023-04-14] MEDS: CHOLECALCIFEROL 1,000 UNIT TABLET GT SCH (06:39)
[2023-04-14 07:25] VITALS: TEMP 99
[2023-04-14] MEDS: HYDROGEN PEROXIDE 3% 118 ML BOTTLE TP SCH ×2 (09:00→19:08)
[2023-04-14 09:20] VITALS: O2SAT 99
[2023-04-14] MEDS: REMEDY ESSENTIAL ZINC PASTE 113 GM TOP SCH ×2 (09:25→21:58)
[2023-04-14] MEDS: [UNRECOGNIZED DRUG - OTHER] TOP SCH ×2 (09:25→21:58)
[2023-04-14] MEDS: DOCUSATE SODIUM 100 MG/10 ML LIQUID UDC GT SCH ×2 (09:25→21:57)
[2023-04-14] MEDS: [UNRECOGNIZED DRUG - OTHER] GT SCH ×2 (09:25→21:57)
[2023-04-14] MEDS: BACLOFEN 10 MG TABLET GT SCH ×3 (09:25→16:41)
[2023-04-14] MEDS: VITAMINS A AND D OINT 42 GM TUBE TP SCH (09:26)
[2023-04-14] MEDS: KETOCONAZOLE 2% SHAMPOO 120 ML BOTTLE TP SCH (09:26)
[2023-04-14] MEDS: ZINC OXIDE OINT 30 GM TUBE TP SCH ×2 (09:26→21:58)
[2023-04-14] MEDS: HEPARIN SODIUM,PORCINE 5,000 UNITS/ML VIAL SQ SCH ×2 (09:27→21:00)
[2023-04-14 19:48] VITALS: TEMP 99.1
[2023-04-14 20:20] VITALS: O2SAT 99
[2023-04-14] MEDS: OMEGA-3 FATTY ACIDS/FISH OIL CAPSULE GT SCH (21:57)
[2023-04-15] MEDS: LORATADINE 10 MG TABLET GT SCH (05:38)
[2023-04-15] MEDS: OMEPRAZOLE 20 MG CAPSULE.DR GT SCH (05:38)
[2023-04-15] MEDS: CHOLECALCIFEROL 1,000 UNIT TABLET GT SCH (05:38)
[2023-04-15 07:47] VITALS: TEMP 97.4
[2023-04-15] MEDS: DOCUSATE SODIUM 100 MG/10 ML LIQUID UDC GT SCH ×2 (08:08→20:31)
[2023-04-15] MEDS: BACLOFEN 10 MG TABLET GT SCH ×3 (08:09→17:39)
[2023-04-15] MEDS: [UNRECOGNIZED DRUG - OTHER] GT SCH ×2 (08:09→20:31)
[2023-04-15] MEDS: REMEDY ESSENTIAL ZINC PASTE 113 GM TOP SCH ×2 (08:10→20:34)
[2023-04-15] MEDS: [UNRECOGNIZED DRUG - OTHER] TOP SCH ×2 (08:10→20:34)
[2023-04-15] MEDS: HEPARIN SODIUM,PORCINE 5,000 UNITS/ML VIAL SQ SCH ×2 (08:14→20:34)
[2023-04-15] MEDS: VITAMINS A AND D OINT 42 GM TUBE TP SCH (08:15)
[2023-04-15] MEDS: ZINC OXIDE OINT 30 GM TUBE TP SCH ×2 (08:15→20:34)
[2023-04-15] MEDS: HYDROGEN PEROXIDE 3% 118 ML BOTTLE TP SCH ×2 (08:42→19:06)
[2023-04-15 14:38] VITALS: O2SAT 95
[2023-04-15 19:55] VITALS: O2SAT 99
[2023-04-15 20:26] VITALS: TEMP 98.6
[2023-04-15] MEDS: OMEGA-3 FATTY ACIDS/FISH OIL CAPSULE GT SCH (20:30)
[2023-04-16] MEDS: OMEPRAZOLE 20 MG CAPSULE.DR GT SCH (05:35)
[2023-04-16] MEDS: CHOLECALCIFEROL 1,000 UNIT TABLET GT SCH (05:35)
[2023-04-16] MEDS: LORATADINE 10 MG TABLET GT SCH (05:35)
[2023-04-16 07:36] VITALS: TEMP 97.3
[2023-04-16 07:54] VITALS: O2SAT 99
[2023-04-16] MEDS: HYDROGEN PEROXIDE 3% 118 ML BOTTLE TP SCH ×2 (07:54→19:06)
[2023-04-16] MEDS: HEPARIN SODIUM,PORCINE 5,000 UNITS/ML VIAL SQ SCH ×2 (09:46→21:00)
[2023-04-16] MEDS: [UNRECOGNIZED DRUG - OTHER] TOP SCH ×2 (09:46→20:40)
[2023-04-16] MEDS: [UNRECOGNIZED DRUG - OTHER] GT SCH ×2 (09:46→20:40)
[2023-04-16] MEDS: DOCUSATE SODIUM 100 MG/10 ML LIQUID UDC GT SCH ×2 (09:46→20:40)
[2023-04-16] MEDS: BACLOFEN 10 MG TABLET GT SCH ×3 (09:46→17:50)
[2023-04-16] MEDS: REMEDY ESSENTIAL ZINC PASTE 113 GM TOP SCH ×2 (09:46→20:40)
[2023-04-16] MEDS: ZINC OXIDE OINT 30 GM TUBE TP SCH ×2 (09:47→20:40)
[2023-04-16] MEDS: VITAMINS A AND D OINT 42 GM TUBE TP SCH (09:47)
[2023-04-16 19:46] VITALS: TEMP 98.7
[2023-04-16 19:55] VITALS: O2SAT 99
[2023-04-16] MEDS: OMEGA-3 FATTY ACIDS/FISH OIL CAPSULE GT SCH (20:40)
[2023-04-17] MEDS: OMEPRAZOLE 20 MG CAPSULE.DR GT SCH (05:21)
[2023-04-17] MEDS: LORATADINE 10 MG TABLET GT SCH (05:21)
[2023-04-17] MEDS: CHOLECALCIFEROL 1,000 UNIT TABLET GT SCH (05:22)
[2023-04-17 07:15] VITALS: O2SAT 99
[2023-04-17] MEDS: HYDROGEN PEROXIDE 3% 118 ML BOTTLE TP SCH ×2 (07:15→21:00)
[2023-04-17 08:00] VITALS: TEMP 97.6
[2023-04-17] MEDS: HEPARIN SODIUM,PORCINE 5,000 UNITS/ML VIAL SQ SCH ×2 (08:38→21:00)
[2023-04-17] MEDS: DOCUSATE SODIUM 100 MG/10 ML LIQUID UDC GT SCH ×2 (08:41→20:38)
[2023-04-17] MEDS: BACLOFEN 10 MG TABLET GT SCH ×3 (08:41→16:20)
[2023-04-17] MEDS: [UNRECOGNIZED DRUG - OTHER] TOP SCH ×2 (08:42→20:38)
[2023-04-17] MEDS: [UNRECOGNIZED DRUG - OTHER] GT SCH ×2 (08:42→20:38)
[2023-04-17] MEDS: REMEDY ESSENTIAL ZINC PASTE 113 GM TOP SCH ×2 (08:43→20:38)
[2023-04-17] MEDS: VITAMINS A AND D OINT 42 GM TUBE TP SCH (08:43)
[2023-04-17] MEDS: KETOCONAZOLE 2% SHAMPOO 120 ML BOTTLE TP SCH (08:43)
[2023-04-17] MEDS: ZINC OXIDE OINT 30 GM TUBE TP SCH ×2 (08:45→20:38)
[2023-04-17] MEDS: JEVITY 1.2 1000 ML LIQUID GT PRN (12:17)
[2023-04-17 20:00] VITALS: TEMP 98.8
[2023-04-17] MEDS: OMEGA-3 FATTY ACIDS/FISH OIL CAPSULE GT SCH (20:38)
[2023-04-18] MEDS: LORATADINE 10 MG TABLET GT SCH (05:22)
[2023-04-18] MEDS: CHOLECALCIFEROL 1,000 UNIT TABLET GT SCH (05:23)
[2023-04-18] MEDS: OMEPRAZOLE 20 MG CAPSULE.DR GT SCH (05:23)
[2023-04-18 07:35] VITALS: TEMP 98.9
[2023-04-18] MEDS: DOCUSATE SODIUM 100 MG/10 ML LIQUID UDC GT SCH ×2 (08:23→20:26)
[2023-04-18] MEDS: BACLOFEN 10 MG TABLET GT SCH ×3 (08:24→17:07)
[2023-04-18] MEDS: [UNRECOGNIZED DRUG - OTHER] GT SCH ×2 (08:24→20:27)
[2023-04-18] MEDS: VITAMINS A AND D OINT 42 GM TUBE TP SCH (08:26)
[2023-04-18] MEDS: ZINC OXIDE OINT 30 GM TUBE TP SCH ×2 (08:26→20:30)
[2023-04-18] MEDS: REMEDY ESSENTIAL ZINC PASTE 113 GM TOP SCH ×2 (08:26→20:30)
[2023-04-18] MEDS: HEPARIN SODIUM,PORCINE 5,000 UNITS/ML VIAL SQ SCH ×2 (08:26→20:30)
[2023-04-18] MEDS: [UNRECOGNIZED DRUG - OTHER] TOP SCH ×2 (08:26→20:30)
[2023-04-18] MEDS: HYDROGEN PEROXIDE 3% 118 ML BOTTLE TP SCH ×2 (09:38→20:54)
[2023-04-18 09:45] VITALS: O2SAT 99
[2023-04-18] MEDS: OMEGA-3 FATTY ACIDS/FISH OIL CAPSULE GT SCH (20:26)
[2023-04-18 20:35] VITALS: TEMP 99.1
[2023-04-18 20:54] VITALS: O2SAT 99
[2023-04-19] MEDS: OMEPRAZOLE 20 MG CAPSULE.DR GT SCH (05:12)
[2023-04-19] MEDS: CHOLECALCIFEROL 1,000 UNIT TABLET GT SCH (05:12)
[2023-04-19] MEDS: LORATADINE 10 MG TABLET GT SCH (05:12)
[2023-04-19 07:25] VITALS: TEMP 98.1
[2023-04-19] MEDS: BACLOFEN 10 MG TABLET GT SCH ×3 (08:49→17:12)
[2023-04-19] MEDS: ZINC OXIDE OINT 30 GM TUBE TP SCH ×2 (08:49→21:00)
[2023-04-19] MEDS: [UNRECOGNIZED DRUG - OTHER] TOP SCH ×2 (08:49→21:00)
[2023-04-19] MEDS: VITAMINS A AND D OINT 42 GM TUBE TP SCH (08:49)
[2023-04-19] MEDS: DOCUSATE SODIUM 100 MG/10 ML LIQUID UDC GT SCH ×2 (08:49→21:00)
[2023-04-19] MEDS: REMEDY ESSENTIAL ZINC PASTE 113 GM TOP SCH ×2 (08:49→21:00)
[2023-04-19] MEDS: HEPARIN SODIUM,PORCINE 5,000 UNITS/ML VIAL SQ SCH ×2 (08:49→21:00)
[2023-04-19] MEDS: [UNRECOGNIZED DRUG - OTHER] GT SCH ×2 (08:49→21:00)
[2023-04-19] MEDS: HYDROGEN PEROXIDE 3% 118 ML BOTTLE TP SCH ×2 (09:23→21:00)
[2023-04-19 10:00] VITALS: O2SAT 99
[2023-04-19 20:26] VITALS: TEMP 98.6
[2023-04-19] MEDS: OMEGA-3 FATTY ACIDS/FISH OIL CAPSULE GT SCH (21:00)
[2023-04-20 05:03] VITALS: O2SAT 99
[2023-04-20] MEDS: OMEPRAZOLE 20 MG CAPSULE.DR GT SCH (05:39)
[2023-04-20] MEDS: CHOLECALCIFEROL 1,000 UNIT TABLET GT SCH (05:39)
[2023-04-20] MEDS: LORATADINE 10 MG TABLET GT SCH (05:39)
[2023-04-20 07:23] VITALS: TEMP 98.8
[2023-04-20 07:57] VITALS: O2SAT 99
[2023-04-20] MEDS: HYDROGEN PEROXIDE 3% 118 ML BOTTLE TP SCH ×2 (07:57→21:29)
[2023-04-20] MEDS: VITAMINS A AND D OINT 42 GM TUBE TP SCH (08:40)
[2023-04-20] MEDS: [UNRECOGNIZED DRUG - OTHER] GT SCH ×2 (08:40→20:20)
[2023-04-20] MEDS: REMEDY ESSENTIAL ZINC PASTE 113 GM TOP SCH ×2 (08:40→20:21)
[2023-04-20] MEDS: BACLOFEN 10 MG TABLET GT SCH ×3 (08:40→17:11)
[2023-04-20] MEDS: DOCUSATE SODIUM 100 MG/10 ML LIQUID UDC GT SCH ×2 (08:40→20:20)
[2023-04-20] MEDS: [UNRECOGNIZED DRUG - OTHER] TOP SCH ×2 (08:40→20:21)
[2023-04-20] MEDS: ZINC OXIDE OINT 30 GM TUBE TP SCH ×2 (08:41→20:21)
[2023-04-20] MEDS: HEPARIN SODIUM,PORCINE 5,000 UNITS/ML VIAL SQ SCH ×2 (08:57→20:21)
[2023-04-20 20:00] VITALS: TEMP 98.5
[2023-04-20 20:01] VITALS: O2SAT 98
[2023-04-20] MEDS: OMEGA-3 FATTY ACIDS/FISH OIL CAPSULE GT SCH (20:20)
[2023-04-21] MEDS: JEVITY 1.2 1000 ML LIQUID GT PRN ×2 (00:15→22:38)
[2023-04-21] MEDS: OMEPRAZOLE 20 MG CAPSULE.DR GT SCH (06:43)
[2023-04-21] MEDS: LORATADINE 10 MG TABLET GT SCH (06:43)
[2023-04-21] MEDS: CHOLECALCIFEROL 1,000 UNIT TABLET GT SCH (06:43)
[2023-04-21] MEDS: BACLOFEN 10 MG TABLET GT SCH ×3 (09:00→17:35)
[2023-04-21] MEDS: HEPARIN SODIUM,PORCINE 5,000 UNITS/ML VIAL SQ SCH ×2 (09:00→20:09)
[2023-04-21] MEDS: [UNRECOGNIZED DRUG - OTHER] GT SCH ×2 (09:00→20:09)
[2023-04-21] MEDS: ZINC OXIDE OINT 30 GM TUBE TP SCH ×2 (09:00→20:10)
[2023-04-21] MEDS: VITAMINS A AND D OINT 42 GM TUBE TP SCH (09:00)
[2023-04-21] MEDS: DOCUSATE SODIUM 100 MG/10 ML LIQUID UDC GT SCH ×2 (09:00→20:09)
[2023-04-21] MEDS: KETOCONAZOLE 2% SHAMPOO 120 ML BOTTLE TP SCH (09:00)
[2023-04-21] MEDS: REMEDY ESSENTIAL ZINC PASTE 113 GM TOP SCH ×2 (09:00→20:10)
[2023-04-21] MEDS: HYDROGEN PEROXIDE 3% 118 ML BOTTLE TP SCH ×2 (09:00→21:23)
[2023-04-21] MEDS: [UNRECOGNIZED DRUG - OTHER] TOP SCH ×2 (09:00→20:09)
[2023-04-21 12:26] VITALS: O2SAT 99
[2023-04-21 14:21] VITALS: TEMP 98.4
[2023-04-21 19:00] VITALS: O2SAT 98
[2023-04-21] MEDS: OMEGA-3 FATTY ACIDS/FISH OIL CAPSULE GT SCH (20:09)
[2023-04-21 21:04] VITALS: TEMP 98.2
[2023-04-22] MEDS: OMEPRAZOLE 20 MG CAPSULE.DR GT SCH (05:17)
[2023-04-22] MEDS: LORATADINE 10 MG TABLET GT SCH (05:17)
[2023-04-22] MEDS: CHOLECALCIFEROL 1,000 UNIT TABLET GT SCH (05:17)
[2023-04-22 07:46] VITALS: TEMP 97.7
[2023-04-22 08:17] VITALS: O2SAT 99
[2023-04-22] MEDS: ZINC OXIDE OINT 30 GM TUBE TP SCH ×2 (08:50→20:15)
[2023-04-22] MEDS: [UNRECOGNIZED DRUG - OTHER] TOP SCH ×2 (08:50→20:15)
[2023-04-22] MEDS: BACLOFEN 10 MG TABLET GT SCH ×3 (08:50→17:32)
[2023-04-22] MEDS: DOCUSATE SODIUM 100 MG/10 ML LIQUID UDC GT SCH ×2 (08:50→20:14)
[2023-04-22] MEDS: VITAMINS A AND D OINT 42 GM TUBE TP SCH (08:50)
[2023-04-22] MEDS: REMEDY ESSENTIAL ZINC PASTE 113 GM TOP SCH ×2 (08:50→20:15)
[2023-04-22] MEDS: [UNRECOGNIZED DRUG - OTHER] GT SCH ×2 (08:50→20:14)
[2023-04-22] MEDS: HEPARIN SODIUM,PORCINE 5,000 UNITS/ML VIAL SQ SCH ×2 (08:55→20:15)
[2023-04-22] MEDS: HYDROGEN PEROXIDE 3% 118 ML BOTTLE TP SCH ×2 (09:53→20:59)
[2023-04-22 20:00] VITALS: TEMP 97.5
[2023-04-22] MEDS: OMEGA-3 FATTY ACIDS/FISH OIL CAPSULE GT SCH (20:14)
[2023-04-22] MEDS: JEVITY 1.2 1000 ML LIQUID GT PRN (20:15)
[2023-04-22 21:23] VITALS: O2SAT 99
[2023-04-23] MEDS: LORATADINE 10 MG TABLET GT SCH (05:17)
[2023-04-23] MEDS: OMEPRAZOLE 20 MG CAPSULE.DR GT SCH (05:17)
[2023-04-23] MEDS: CHOLECALCIFEROL 1,000 UNIT TABLET GT SCH (05:17)
[2023-04-23 08:00] VITALS: TEMP 97.9
[2023-04-23] MEDS: HEPARIN SODIUM,PORCINE 5,000 UNITS/ML VIAL SQ SCH ×2 (09:02→21:00)
[2023-04-23] MEDS: BACLOFEN 10 MG TABLET GT SCH ×3 (09:02→16:31)
[2023-04-23] MEDS: DOCUSATE SODIUM 100 MG/10 ML LIQUID UDC GT SCH ×2 (09:02→20:18)
[2023-04-23] MEDS: [UNRECOGNIZED DRUG - OTHER] GT SCH ×2 (09:02→20:18)
[2023-04-23] MEDS: [UNRECOGNIZED DRUG - OTHER] TOP SCH ×2 (09:03→20:19)
[2023-04-23] MEDS: REMEDY ESSENTIAL ZINC PASTE 113 GM TOP SCH ×2 (09:03→20:19)
[2023-04-23] MEDS: VITAMINS A AND D OINT 42 GM TUBE TP SCH (09:03)
[2023-04-23] MEDS: ZINC OXIDE OINT 30 GM TUBE TP SCH ×2 (09:04→20:19)
[2023-04-23 09:10] VITALS: O2SAT 99
[2023-04-23] MEDS: HYDROGEN PEROXIDE 3% 118 ML BOTTLE TP SCH ×2 (09:10→21:54)
[2023-04-23] MEDS: JEVITY 1.2 1000 ML LIQUID GT PRN (19:01)
[2023-04-23 19:45] VITALS: O2SAT 99
[2023-04-23] MEDS: OMEGA-3 FATTY ACIDS/FISH OIL CAPSULE GT SCH (20:18)
[2023-04-23 20:52] VITALS: TEMP 97.8
[2023-04-23 20:53] VITALS: TEMP 98.8
[2023-04-24] MEDS: OMEPRAZOLE 20 MG CAPSULE.DR GT SCH (05:51)
[2023-04-24] MEDS: CHOLECALCIFEROL 1,000 UNIT TABLET GT SCH (05:51)
[2023-04-24] MEDS: LORATADINE 10 MG TABLET GT SCH (05:51)
[2023-04-24 07:26] LABS: BASOPHILS % (AUTO) 0.4 % (0.0-2.0); EOSINOPHILS # (AUTO) 0.1 K/uL (0.0-0.7); EOSINOPHILS % (AUTO) 1.4 % (0.0-7.0); HEMATOCRIT 41.3 % (36.7-47.1); HEMOGLOBIN 14.1 g/dL (12.5-16.3); LYMPHOCYTES # (AUTO) 1.9 K/uL (0.8-4.8); LYMPHOCYTES % (AUTO) 23.9 % (20.5-51.5); MEAN CORPUSCULAR HEMOGLOBIN 31.3 uug (23.8-33.4); MEAN CORPUSCULAR HGB CONC 34 g/dL (32.5-36.3); MEAN CORPUSCULAR VOLUME 91.8 fL (73.0-96.2); MONOCYTES # (AUTO) 0.8 K/uL (0.1-1.30); MONOCYTES % (AUTO) 9.8 % (0.0-11.0); NEUTROPHILS # (AUTO) 5.2 K/uL (1.8-8.9); NEUTROPHILS % (AUTO) 64.5 % (38.5-71.5); PLATELET COUNT (AUTO) 210 K/uL (152-348)
[2023-04-24] MEDS: HYDROGEN PEROXIDE 3% 118 ML BOTTLE TP SCH ×2 (07:27→21:00)
[2023-04-24 07:41] LABS: DIFFERENTIAL COMMENT 1
[2023-04-24 07:48] LABS: CALCIUM 9.7 mg/dL (8.5-10.1); CARBON DIOXIDE 30 mmol/L (21-32); CHLORIDE 102 mmol/L (98-107); CREATININE 0.6 mg/dL (0.6-1.3); GLUCOSE 111 mg/dL (74-106); POTASSIUM 4.2 mmol/L (3.5-5.1); SODIUM SERUM 138 mmol/L (136-145); UREA NITROGEN, BLOOD 11 mg/dL (7-18)
[2023-04-24 07:51] VITALS: TEMP 98.2
[2023-04-24] MEDS: BACLOFEN 10 MG TABLET GT SCH ×3 (08:39→16:48)
[2023-04-24] MEDS: [UNRECOGNIZED DRUG - OTHER] GT SCH ×2 (08:39→20:17)
[2023-04-24] MEDS: DOCUSATE SODIUM 100 MG/10 ML LIQUID UDC GT SCH ×2 (08:39→20:17)
[2023-04-24] MEDS: HEPARIN SODIUM,PORCINE 5,000 UNITS/ML VIAL SQ SCH ×2 (08:43→21:54)
[2023-04-24] MEDS: KETOCONAZOLE 2% SHAMPOO 120 ML BOTTLE TP SCH (08:43)
[2023-04-24] MEDS: REMEDY ESSENTIAL ZINC PASTE 113 GM TOP SCH ×2 (08:43→20:17)
[2023-04-24] MEDS: [UNRECOGNIZED DRUG - OTHER] TOP SCH ×2 (08:43→20:17)
[2023-04-24] MEDS: VITAMINS A AND D OINT 42 GM TUBE TP SCH (08:43)
[2023-04-24] MEDS: ZINC OXIDE OINT 30 GM TUBE TP SCH ×2 (08:44→20:17)
[2023-04-24 10:40] VITALS: O2SAT 97
[2023-04-24 10:50] VITALS: O2SAT 98
[2023-04-24] MEDS: JEVITY 1.2 1000 ML LIQUID GT PRN (15:12)
[2023-04-24 20:00] VITALS: TEMP 98.5
[2023-04-24] MEDS: OMEGA-3 FATTY ACIDS/FISH OIL CAPSULE GT SCH (20:17)
[2023-04-25] MEDS: OMEPRAZOLE 20 MG CAPSULE.DR GT SCH (06:46)
[2023-04-25] MEDS: CHOLECALCIFEROL 1,000 UNIT TABLET GT SCH (06:46)
[2023-04-25] MEDS: LORATADINE 10 MG TABLET GT SCH (06:46)
[2023-04-25 07:49] VITALS: TEMP 98.6
[2023-04-25] MEDS: DOCUSATE SODIUM 100 MG/10 ML LIQUID UDC GT SCH ×2 (08:01→20:30)
[2023-04-25] MEDS: BACLOFEN 10 MG TABLET GT SCH ×3 (08:01→17:19)
[2023-04-25] MEDS: [UNRECOGNIZED DRUG - OTHER] GT SCH ×2 (08:01→20:31)
[2023-04-25] MEDS: HEPARIN SODIUM,PORCINE 5,000 UNITS/ML VIAL SQ SCH ×2 (08:02→20:35)
[2023-04-25] MEDS: [UNRECOGNIZED DRUG - OTHER] TOP SCH ×2 (08:02→20:35)
[2023-04-25] MEDS: ZINC OXIDE OINT 30 GM TUBE TP SCH ×2 (08:03→20:35)
[2023-04-25] MEDS: REMEDY ESSENTIAL ZINC PASTE 113 GM TOP SCH ×2 (08:03→20:35)
[2023-04-25] MEDS: VITAMINS A AND D OINT 42 GM TUBE TP SCH (08:03)
[2023-04-25] MEDS: HYDROGEN PEROXIDE 3% 118 ML BOTTLE TP SCH ×2 (09:00→18:56)
[2023-04-25 09:55] VITALS: O2SAT 97
[2023-04-25 19:45] VITALS: O2SAT 99
[2023-04-25 20:00] VITALS: TEMP 97.8
[2023-04-25] MEDS: OMEGA-3 FATTY ACIDS/FISH OIL CAPSULE GT SCH (20:31)
[2023-04-26] MEDS: JEVITY 1.2 1000 ML LIQUID GT PRN ×2 (02:51→23:35)
[2023-04-26] MEDS: LORATADINE 10 MG TABLET GT SCH (05:17)
[2023-04-26] MEDS: CHOLECALCIFEROL 1,000 UNIT TABLET GT SCH (05:17)
[2023-04-26] MEDS: OMEPRAZOLE 20 MG CAPSULE.DR GT SCH (05:17)
[2023-04-26 07:20] VITALS: TEMP 98.5
[2023-04-26] MEDS: BACLOFEN 10 MG TABLET GT SCH ×3 (08:01→16:25)
[2023-04-26] MEDS: [UNRECOGNIZED DRUG - OTHER] GT SCH ×2 (08:01→20:03)
[2023-04-26] MEDS: DOCUSATE SODIUM 100 MG/10 ML LIQUID UDC GT SCH ×2 (08:01→20:03)
[2023-04-26] MEDS: [UNRECOGNIZED DRUG - OTHER] TOP SCH ×2 (08:02→20:04)
[2023-04-26] MEDS: ZINC OXIDE OINT 30 GM TUBE TP SCH ×2 (08:02→20:04)
[2023-04-26] MEDS: VITAMINS A AND D OINT 42 GM TUBE TP SCH (08:02)
[2023-04-26] MEDS: HYDROGEN PEROXIDE 3% 118 ML BOTTLE TP SCH ×2 (08:02→19:18)
[2023-04-26] MEDS: REMEDY ESSENTIAL ZINC PASTE 113 GM TOP SCH ×2 (08:02→20:04)
[2023-04-26] MEDS: HEPARIN SODIUM,PORCINE 5,000 UNITS/ML VIAL SQ SCH ×2 (08:04→20:04)
[2023-04-26 09:50] VITALS: O2SAT 97
[2023-04-26 19:19] VITALS: O2SAT 99
[2023-04-26] MEDS: OMEGA-3 FATTY ACIDS/FISH OIL CAPSULE GT SCH (20:03)
[2023-04-26 20:07] VITALS: TEMP 97.6
[2023-04-27] MEDS: LORATADINE 10 MG TABLET GT SCH (05:14)
[2023-04-27] MEDS: CHOLECALCIFEROL 1,000 UNIT TABLET GT SCH (05:14)
[2023-04-27] MEDS: OMEPRAZOLE 20 MG CAPSULE.DR GT SCH (05:14)
[2023-04-27 07:22] VITALS: TEMP 98.3
[2023-04-27] MEDS: HYDROGEN PEROXIDE 3% 118 ML BOTTLE TP SCH ×2 (07:32→19:03)
[2023-04-27] MEDS: HEPARIN SODIUM,PORCINE 5,000 UNITS/ML VIAL SQ SCH ×2 (08:20→20:12)
[2023-04-27] MEDS: DOCUSATE SODIUM 100 MG/10 ML LIQUID UDC GT SCH ×2 (08:47→20:08)
[2023-04-27] MEDS: [UNRECOGNIZED DRUG - OTHER] GT SCH ×2 (08:47→20:10)
[2023-04-27] MEDS: BACLOFEN 10 MG TABLET GT SCH ×3 (08:47→17:25)
[2023-04-27] MEDS: ZINC OXIDE OINT 30 GM TUBE TP SCH ×2 (08:48→20:13)
[2023-04-27] MEDS: VITAMINS A AND D OINT 42 GM TUBE TP SCH (08:48)
[2023-04-27] MEDS: REMEDY ESSENTIAL ZINC PASTE 113 GM TOP SCH ×2 (08:48→20:13)
[2023-04-27] MEDS: [UNRECOGNIZED DRUG - OTHER] TOP SCH ×2 (08:48→20:13)
[2023-04-27 10:25] VITALS: O2SAT 99
[2023-04-27 19:30] VITALS: O2SAT 99
[2023-04-27 20:00] VITALS: TEMP 98.3
[2023-04-27] MEDS: OMEGA-3 FATTY ACIDS/FISH OIL CAPSULE GT SCH (20:10)
[2023-04-28] MEDS: OMEPRAZOLE 20 MG CAPSULE.DR GT SCH (05:27)
[2023-04-28] MEDS: LORATADINE 10 MG TABLET GT SCH (05:27)
[2023-04-28] MEDS: CHOLECALCIFEROL 1,000 UNIT TABLET GT SCH (05:27)
[2023-04-28 07:28] VITALS: TEMP 97.9
[2023-04-28 07:45] VITALS: O2SAT 98
[2023-04-28] MEDS: DOCUSATE SODIUM 100 MG/10 ML LIQUID UDC GT SCH ×2 (08:48→20:14)
[2023-04-28] MEDS: [UNRECOGNIZED DRUG - OTHER] GT SCH ×2 (08:48→20:14)
[2023-04-28] MEDS: HEPARIN SODIUM,PORCINE 5,000 UNITS/ML VIAL SQ SCH ×2 (08:48→20:16)
[2023-04-28] MEDS: BACLOFEN 10 MG TABLET GT SCH ×3 (08:48→17:57)
[2023-04-28] MEDS: VITAMINS A AND D OINT 42 GM TUBE TP SCH (08:52)
[2023-04-28] MEDS: ZINC OXIDE OINT 30 GM TUBE TP SCH ×2 (08:52→20:18)
[2023-04-28] MEDS: REMEDY ESSENTIAL ZINC PASTE 113 GM TOP SCH ×2 (08:52→20:18)
[2023-04-28] MEDS: [UNRECOGNIZED DRUG - OTHER] TOP SCH ×2 (08:52→20:18)
[2023-04-28] MEDS: KETOCONAZOLE 2% SHAMPOO 120 ML BOTTLE TP SCH (08:52)
[2023-04-28] MEDS: HYDROGEN PEROXIDE 3% 118 ML BOTTLE TP SCH ×2 (09:00→21:23)
[2023-04-28 20:05] VITALS: O2SAT 98
[2023-04-28] MEDS: OMEGA-3 FATTY ACIDS/FISH OIL CAPSULE GT SCH (20:14)
[2023-04-28 20:26] VITALS: TEMP 97.9
[2023-04-29] MEDS: CHOLECALCIFEROL 1,000 UNIT TABLET GT SCH (05:34)
[2023-04-29] MEDS: OMEPRAZOLE 20 MG CAPSULE.DR GT SCH (05:34)
[2023-04-29] MEDS: LORATADINE 10 MG TABLET GT SCH (05:34)
[2023-04-29] MEDS: HYDROGEN PEROXIDE 3% 118 ML BOTTLE TP SCH ×2 (07:06→21:27)
[2023-04-29 07:21] VITALS: O2SAT 98
[2023-04-29 07:42] VITALS: TEMP 98
[2023-04-29] MEDS: DOCUSATE SODIUM 100 MG/10 ML LIQUID UDC GT SCH ×2 (08:33→20:21)
[2023-04-29] MEDS: [UNRECOGNIZED DRUG - OTHER] GT SCH ×2 (08:33→20:21)
[2023-04-29] MEDS: BACLOFEN 10 MG TABLET GT SCH ×3 (08:33→17:38)
[2023-04-29] MEDS: HEPARIN SODIUM,PORCINE 5,000 UNITS/ML VIAL SQ SCH ×2 (08:34→20:23)
[2023-04-29] MEDS: VITAMINS A AND D OINT 42 GM TUBE TP SCH (08:36)
[2023-04-29] MEDS: [UNRECOGNIZED DRUG - OTHER] TOP SCH ×2 (08:36→20:25)
[2023-04-29] MEDS: ZINC OXIDE OINT 30 GM TUBE TP SCH ×2 (08:36→20:25)
[2023-04-29] MEDS: REMEDY ESSENTIAL ZINC PASTE 113 GM TOP SCH ×2 (08:36→20:25)
[2023-04-29 20:00] VITALS: O2SAT 99
[2023-04-29 20:14] VITALS: TEMP 98.3
[2023-04-29] MEDS: OMEGA-3 FATTY ACIDS/FISH OIL CAPSULE GT SCH (20:21)
[2023-04-30] MEDS: CHOLECALCIFEROL 1,000 UNIT TABLET GT SCH (05:30)
[2023-04-30] MEDS: LORATADINE 10 MG TABLET GT SCH (05:30)
[2023-04-30] MEDS: OMEPRAZOLE 20 MG CAPSULE.DR GT SCH (05:30)
[2023-04-30 07:43] VITALS: TEMP 98.6
[2023-04-30] MEDS: DOCUSATE SODIUM 100 MG/10 ML LIQUID UDC GT SCH ×2 (08:41→21:27)
[2023-04-30] MEDS: BACLOFEN 10 MG TABLET GT SCH ×3 (08:43→17:44)
[2023-04-30] MEDS: [UNRECOGNIZED DRUG - OTHER] GT SCH ×2 (08:43→21:27)
[2023-04-30] MEDS: [UNRECOGNIZED DRUG - OTHER] TOP SCH ×2 (08:45→21:30)
[2023-04-30] MEDS: VITAMINS A AND D OINT 42 GM TUBE TP SCH (08:45)
[2023-04-30] MEDS: HEPARIN SODIUM,PORCINE 5,000 UNITS/ML VIAL SQ SCH ×2 (08:45→21:00)
[2023-04-30] MEDS: REMEDY ESSENTIAL ZINC PASTE 113 GM TOP SCH ×2 (08:45→21:30)
[2023-04-30] MEDS: ZINC OXIDE OINT 30 GM TUBE TP SCH ×2 (08:45→21:30)
[2023-04-30] MEDS: HYDROGEN PEROXIDE 3% 118 ML BOTTLE TP SCH ×2 (09:23→19:09)
[2023-04-30 09:30] VITALS: O2SAT 99
[2023-04-30 19:45] VITALS: O2SAT 99
[2023-04-30 20:09] VITALS: TEMP 98.5
[2023-04-30] MEDS: OMEGA-3 FATTY ACIDS/FISH OIL CAPSULE GT SCH (21:27)
[2023-05-01] MEDS: LORATADINE 10 MG TABLET GT SCH (05:30)
[2023-05-01] MEDS: OMEPRAZOLE 20 MG CAPSULE.DR GT SCH (05:30)
[2023-05-01] MEDS: CHOLECALCIFEROL 1,000 UNIT TABLET GT SCH (06:00)
[2023-05-01 08:00] VITALS: TEMP 97.2
[2023-05-01 08:22] VITALS: O2SAT 99
[2023-05-01] MEDS: DOCUSATE SODIUM 100 MG/10 ML LIQUID UDC GT SCH ×2 (08:22→20:36)
[2023-05-01] MEDS: KETOCONAZOLE 2% SHAMPOO 120 ML BOTTLE TP SCH (08:23)
[2023-05-01] MEDS: [UNRECOGNIZED DRUG - OTHER] TOP SCH ×2 (08:23→20:37)
[2023-05-01] MEDS: BACLOFEN 10 MG TABLET GT SCH ×3 (08:23→16:52)
[2023-05-01] MEDS: [UNRECOGNIZED DRUG - OTHER] GT SCH ×2 (08:23→20:36)
[2023-05-01] MEDS: ZINC OXIDE OINT 30 GM TUBE TP SCH ×2 (08:23→20:37)
[2023-05-01] MEDS: REMEDY ESSENTIAL ZINC PASTE 113 GM TOP SCH ×2 (08:23→20:37)
[2023-05-01] MEDS: VITAMINS A AND D OINT 42 GM TUBE TP SCH (08:23)
[2023-05-01] MEDS: HEPARIN SODIUM,PORCINE 5,000 UNITS/ML VIAL SQ SCH ×2 (09:08→21:00)
[2023-05-01] MEDS: HYDROGEN PEROXIDE 3% 118 ML BOTTLE TP SCH ×2 (09:27→20:14)
[2023-05-01] MEDS: JEVITY 1.2 1000 ML LIQUID GT PRN (10:24)
[2023-05-01 19:28] VITALS: O2SAT 98
[2023-05-01 19:52] VITALS: TEMP 98.2
[2023-05-01] MEDS: OMEGA-3 FATTY ACIDS/FISH OIL CAPSULE GT SCH (20:36)
[2023-05-02] MEDS: JEVITY 1.2 1000 ML LIQUID GT PRN (02:49)
[2023-05-02] MEDS: LORATADINE 10 MG TABLET GT SCH (05:24)
[2023-05-02] MEDS: CHOLECALCIFEROL 1,000 UNIT TABLET GT SCH (05:24)
[2023-05-02] MEDS: OMEPRAZOLE 20 MG CAPSULE.DR GT SCH (05:24)
[2023-05-02 07:20] VITALS: O2SAT 99
[2023-05-02 07:36] VITALS: TEMP 98.8
[2023-05-02] MEDS: DOCUSATE SODIUM 100 MG/10 ML LIQUID UDC GT SCH ×2 (08:07→20:29)
[2023-05-02] MEDS: [UNRECOGNIZED DRUG - OTHER] GT SCH ×2 (08:07→20:29)
[2023-05-02] MEDS: BACLOFEN 10 MG TABLET GT SCH ×3 (08:07→17:54)
[2023-05-02] MEDS: [UNRECOGNIZED DRUG - OTHER] TOP SCH ×2 (08:08→20:29)
[2023-05-02] MEDS: ZINC OXIDE OINT 30 GM TUBE TP SCH ×2 (08:08→20:29)
[2023-05-02] MEDS: VITAMINS A AND D OINT 42 GM TUBE TP SCH (08:08)
[2023-05-02] MEDS: REMEDY ESSENTIAL ZINC PASTE 113 GM TOP SCH ×2 (08:08→20:29)
[2023-05-02] MEDS: HEPARIN SODIUM,PORCINE 5,000 UNITS/ML VIAL SQ SCH ×2 (08:08→20:29)
[2023-05-02] MEDS: HYDROGEN PEROXIDE 3% 118 ML BOTTLE TP SCH ×2 (08:42→21:21)
[2023-05-02 19:50] VITALS: TEMP 98.3
[2023-05-02] MEDS: OMEGA-3 FATTY ACIDS/FISH OIL CAPSULE GT SCH (20:29)
[2023-05-02 20:53] VITALS: O2SAT 99
[2023-05-03] MEDS: JEVITY 1.2 1000 ML LIQUID GT PRN (02:31)
[2023-05-03] MEDS: OMEPRAZOLE 20 MG CAPSULE.DR GT SCH (05:25)
[2023-05-03] MEDS: LORATADINE 10 MG TABLET GT SCH (05:25)
[2023-05-03] MEDS: CHOLECALCIFEROL 1,000 UNIT TABLET GT SCH (05:26)
[2023-05-03 07:27] VITALS: TEMP 98.9
[2023-05-03] MEDS: HEPARIN SODIUM,PORCINE 5,000 UNITS/ML VIAL SQ SCH ×2 (09:30→21:13)
[2023-05-03] MEDS: [UNRECOGNIZED DRUG - OTHER] TOP SCH ×2 (09:30→21:46)
[2023-05-03] MEDS: ZINC OXIDE OINT 30 GM TUBE TP SCH ×2 (09:30→21:46)
[2023-05-03] MEDS: VITAMINS A AND D OINT 42 GM TUBE TP SCH (09:30)
[2023-05-03] MEDS: BACLOFEN 10 MG TABLET GT SCH ×3 (09:30→16:38)
[2023-05-03] MEDS: [UNRECOGNIZED DRUG - OTHER] GT SCH ×2 (09:30→21:46)
[2023-05-03] MEDS: DOCUSATE SODIUM 100 MG/10 ML LIQUID UDC GT SCH ×2 (09:30→21:46)
[2023-05-03] MEDS: REMEDY ESSENTIAL ZINC PASTE 113 GM TOP SCH ×2 (09:30→21:46)
[2023-05-03] MEDS: HYDROGEN PEROXIDE 3% 118 ML BOTTLE TP SCH ×2 (09:49→21:00)
[2023-05-03 16:52] VITALS: O2SAT 95
[2023-05-03 19:50] VITALS: TEMP 98.7
[2023-05-03 20:15] VITALS: O2SAT 99
[2023-05-03] MEDS: OMEGA-3 FATTY ACIDS/FISH OIL CAPSULE GT SCH (21:46)
[2023-05-04] MEDS: OMEPRAZOLE 20 MG CAPSULE.DR GT SCH (05:22)
[2023-05-04] MEDS: LORATADINE 10 MG TABLET GT SCH (05:22)
[2023-05-04] MEDS: CHOLECALCIFEROL 1,000 UNIT TABLET GT SCH (05:22)
[2023-05-04 07:15] VITALS: O2SAT 95
[2023-05-04] MEDS: HYDROGEN PEROXIDE 3% 118 ML BOTTLE TP SCH ×2 (07:15→19:37)
[2023-05-04 07:25] VITALS: TEMP 98.4
[2023-05-04] MEDS: BACLOFEN 10 MG TABLET GT SCH ×3 (08:52→16:55)
[2023-05-04] MEDS: VITAMINS A AND D OINT 42 GM TUBE TP SCH (08:52)
[2023-05-04] MEDS: DOCUSATE SODIUM 100 MG/10 ML LIQUID UDC GT SCH ×2 (08:52→20:17)
[2023-05-04] MEDS: [UNRECOGNIZED DRUG - OTHER] GT SCH ×2 (08:52→20:17)
[2023-05-04] MEDS: REMEDY ESSENTIAL ZINC PASTE 113 GM TOP SCH ×2 (08:52→20:18)
[2023-05-04] MEDS: HEPARIN SODIUM,PORCINE 5,000 UNITS/ML VIAL SQ SCH ×2 (08:52→21:00)
[2023-05-04] MEDS: [UNRECOGNIZED DRUG - OTHER] TOP SCH ×2 (08:52→20:18)
[2023-05-04] MEDS: ZINC OXIDE OINT 30 GM TUBE TP SCH ×2 (08:54→20:18)
[2023-05-04 20:13] VITALS: TEMP 98.6
[2023-05-04] MEDS: OMEGA-3 FATTY ACIDS/FISH OIL CAPSULE GT SCH (20:17)
[2023-05-05] MEDS: OMEPRAZOLE 20 MG CAPSULE.DR GT SCH (05:12)
[2023-05-05] MEDS: LORATADINE 10 MG TABLET GT SCH (05:12)
[2023-05-05] MEDS: CHOLECALCIFEROL 1,000 UNIT TABLET GT SCH (05:12)
[2023-05-05 08:00] VITALS: TEMP 99.1
[2023-05-05] MEDS: [UNRECOGNIZED DRUG - OTHER] GT SCH ×2 (08:14→20:25)
[2023-05-05] MEDS: DOCUSATE SODIUM 100 MG/10 ML LIQUID UDC GT SCH ×2 (08:14→20:25)
[2023-05-05] MEDS: [UNRECOGNIZED DRUG - OTHER] TOP SCH ×2 (08:14→20:26)
[2023-05-05] MEDS: BACLOFEN 10 MG TABLET GT SCH ×3 (08:14→16:18)
[2023-05-05] MEDS: REMEDY ESSENTIAL ZINC PASTE 113 GM TOP SCH ×2 (08:14→20:26)
[2023-05-05] MEDS: KETOCONAZOLE 2% SHAMPOO 120 ML BOTTLE TP SCH (08:15)
[2023-05-05] MEDS: VITAMINS A AND D OINT 42 GM TUBE TP SCH (08:15)
[2023-05-05] MEDS: ZINC OXIDE OINT 30 GM TUBE TP SCH ×2 (08:15→20:26)
[2023-05-05] MEDS: HEPARIN SODIUM,PORCINE 5,000 UNITS/ML VIAL SQ SCH ×2 (08:17→20:26)
[2023-05-05] MEDS: JEVITY 1.2 1000 ML LIQUID GT PRN ×2 (08:20→20:26)
[2023-05-05] MEDS: HYDROGEN PEROXIDE 3% 118 ML BOTTLE TP SCH ×2 (09:00→21:07)
[2023-05-05 09:30] VITALS: O2SAT 95
[2023-05-05 19:53] VITALS: TEMP 98.9
[2023-05-05 20:00] VITALS: O2SAT 95
[2023-05-05] MEDS: OMEGA-3 FATTY ACIDS/FISH OIL CAPSULE GT SCH (20:25)
[2023-05-06] MEDS: LORATADINE 10 MG TABLET GT SCH (05:15)
[2023-05-06] MEDS: OMEPRAZOLE 20 MG CAPSULE.DR GT SCH (05:15)
[2023-05-06] MEDS: CHOLECALCIFEROL 1,000 UNIT TABLET GT SCH (05:15)
[2023-05-06 08:00] VITALS: TEMP 98.8
[2023-05-06] MEDS: [UNRECOGNIZED DRUG - OTHER] GT SCH ×2 (08:49→20:07)
[2023-05-06] MEDS: BACLOFEN 10 MG TABLET GT SCH ×3 (08:49→17:54)
[2023-05-06] MEDS: DOCUSATE SODIUM 100 MG/10 ML LIQUID UDC GT SCH ×2 (08:49→20:07)
[2023-05-06] MEDS: ZINC OXIDE OINT 30 GM TUBE TP SCH ×2 (08:51→20:08)
[2023-05-06] MEDS: VITAMINS A AND D OINT 42 GM TUBE TP SCH (08:51)
[2023-05-06] MEDS: [UNRECOGNIZED DRUG - OTHER] TOP SCH ×2 (08:51→20:08)
[2023-05-06] MEDS: REMEDY ESSENTIAL ZINC PASTE 113 GM TOP SCH ×2 (08:51→20:08)
[2023-05-06] MEDS: HEPARIN SODIUM,PORCINE 5,000 UNITS/ML VIAL SQ SCH ×2 (08:51→20:08)
[2023-05-06] MEDS: HYDROGEN PEROXIDE 3% 118 ML BOTTLE TP SCH ×2 (09:53→21:15)
[2023-05-06 16:10] VITALS: O2SAT 95
[2023-05-06 19:49] VITALS: TEMP 98.2
[2023-05-06] MEDS: OMEGA-3 FATTY ACIDS/FISH OIL CAPSULE GT SCH (20:07)
[2023-05-06 20:10] VITALS: O2SAT 96
[2023-05-07] MEDS: JEVITY 1.2 1000 ML LIQUID GT PRN ×2 (01:54→22:27)
[2023-05-07] MEDS: LORATADINE 10 MG TABLET GT SCH (05:59)
[2023-05-07] MEDS: OMEPRAZOLE 20 MG CAPSULE.DR GT SCH (05:59)
[2023-05-07] MEDS: CHOLECALCIFEROL 1,000 UNIT TABLET GT SCH (05:59)
[2023-05-07 07:15] VITALS: O2SAT 95
[2023-05-07] MEDS: HYDROGEN PEROXIDE 3% 118 ML BOTTLE TP SCH ×2 (07:15→21:10)
[2023-05-07 07:46] VITALS: TEMP 98.8
[2023-05-07] MEDS: DOCUSATE SODIUM 100 MG/10 ML LIQUID UDC GT SCH ×2 (08:48→20:26)
[2023-05-07] MEDS: BACLOFEN 10 MG TABLET GT SCH ×3 (08:48→16:24)
[2023-05-07] MEDS: REMEDY ESSENTIAL ZINC PASTE 113 GM TOP SCH ×2 (08:49→20:26)
[2023-05-07] MEDS: ZINC OXIDE OINT 30 GM TUBE TP SCH ×2 (08:49→20:26)
[2023-05-07] MEDS: [UNRECOGNIZED DRUG - OTHER] TOP SCH ×2 (08:49→20:26)
[2023-05-07] MEDS: HEPARIN SODIUM,PORCINE 5,000 UNITS/ML VIAL SQ SCH ×2 (08:49→20:51)
[2023-05-07] MEDS: VITAMINS A AND D OINT 42 GM TUBE TP SCH (08:49)
[2023-05-07] MEDS: [UNRECOGNIZED DRUG - OTHER] GT SCH ×2 (08:49→20:26)
[2023-05-07 19:55] VITALS: O2SAT 98
[2023-05-07 20:00] VITALS: TEMP 97.7
[2023-05-07] MEDS: OMEGA-3 FATTY ACIDS/FISH OIL CAPSULE GT SCH (20:26)
[2023-05-08] MEDS: CHOLECALCIFEROL 1,000 UNIT TABLET GT SCH (06:30)
[2023-05-08] MEDS: OMEPRAZOLE 20 MG CAPSULE.DR GT SCH (06:30)
[2023-05-08] MEDS: LORATADINE 10 MG TABLET GT SCH (06:30)
[2023-05-08 07:35] VITALS: O2SAT 97
[2023-05-08] MEDS: DOCUSATE SODIUM 100 MG/10 ML LIQUID UDC GT SCH ×2 (09:16→21:00)
[2023-05-08] MEDS: BACLOFEN 10 MG TABLET GT SCH ×3 (09:17→16:53)
[2023-05-08] MEDS: REMEDY ESSENTIAL ZINC PASTE 113 GM TOP SCH ×2 (09:18→21:00)
[2023-05-08] MEDS: VITAMINS A AND D OINT 42 GM TUBE TP SCH (09:18)
[2023-05-08] MEDS: KETOCONAZOLE 2% SHAMPOO 120 ML BOTTLE TP SCH (09:18)
[2023-05-08] MEDS: ZINC OXIDE OINT 30 GM TUBE TP SCH ×2 (09:19→21:00)
[2023-05-08] MEDS: HYDROGEN PEROXIDE 3% 118 ML BOTTLE TP SCH ×2 (09:19→21:37)
[2023-05-08] MEDS: [UNRECOGNIZED DRUG - OTHER] GT SCH ×2 (09:21→21:00)
[2023-05-08] MEDS: [UNRECOGNIZED DRUG - OTHER] TOP SCH ×2 (09:21→21:00)
[2023-05-08] MEDS: HEPARIN SODIUM,PORCINE 5,000 UNITS/ML VIAL SQ SCH ×2 (09:22→21:00)
[2023-05-08 12:01] VITALS: TEMP 98
[2023-05-08 19:40] VITALS: O2SAT 95
[2023-05-08 20:00] VITALS: BP 143/53; TEMP 97; O2SAT 98
[2023-05-08] MEDS: OMEGA-3 FATTY ACIDS/FISH OIL CAPSULE GT SCH (21:00)
[2023-05-08] MEDS: JEVITY 1.2 1000 ML LIQUID GT PRN (22:27)
[2023-05-09 01:36] VITALS: TEMP 97
[2023-05-09] MEDS: LORATADINE 10 MG TABLET GT SCH (05:28)
[2023-05-09] MEDS: OMEPRAZOLE 20 MG CAPSULE.DR GT SCH (05:29)
[2023-05-09] MEDS: CHOLECALCIFEROL 1,000 UNIT TABLET GT SCH (05:29)
[2023-05-09 07:30] VITALS: O2SAT 97
[2023-05-09 07:37] VITALS: TEMP 98.3
[2023-05-09] MEDS: DOCUSATE SODIUM 100 MG/10 ML LIQUID UDC GT SCH ×2 (08:22→20:46)
[2023-05-09] MEDS: BACLOFEN 10 MG TABLET GT SCH ×3 (08:23→16:23)
[2023-05-09] MEDS: REMEDY ESSENTIAL ZINC PASTE 113 GM TOP SCH ×2 (08:23→20:49)
[2023-05-09] MEDS: [UNRECOGNIZED DRUG - OTHER] TOP SCH ×2 (08:23→20:48)
[2023-05-09] MEDS: [UNRECOGNIZED DRUG - OTHER] GT SCH ×2 (08:23→20:46)
[2023-05-09] MEDS: ZINC OXIDE OINT 30 GM TUBE TP SCH ×2 (08:24→20:49)
[2023-05-09] MEDS: VITAMINS A AND D OINT 42 GM TUBE TP SCH (08:24)
[2023-05-09] MEDS: HEPARIN SODIUM,PORCINE 5,000 UNITS/ML VIAL SQ SCH ×2 (08:39→20:47)
[2023-05-09] MEDS: HYDROGEN PEROXIDE 3% 118 ML BOTTLE TP SCH ×2 (09:07→20:22)
[2023-05-09] MEDS: JEVITY 1.2 1000 ML LIQUID GT PRN (16:23)
[2023-05-09 19:29] VITALS: O2SAT 98
[2023-05-09 19:40] VITALS: TEMP 98.4
[2023-05-09] MEDS: OMEGA-3 FATTY ACIDS/FISH OIL CAPSULE GT SCH (20:46)
[2023-05-10] MEDS: LORATADINE 10 MG TABLET GT SCH (05:11)
[2023-05-10] MEDS: OMEPRAZOLE 20 MG CAPSULE.DR GT SCH (05:11)
[2023-05-10] MEDS: CHOLECALCIFEROL 1,000 UNIT TABLET GT SCH (05:11)
[2023-05-10 07:21] VITALS: TEMP 98
[2023-05-10] MEDS: BACLOFEN 10 MG TABLET GT SCH ×3 (08:28→16:30)
[2023-05-10] MEDS: DOCUSATE SODIUM 100 MG/10 ML LIQUID UDC GT SCH ×2 (08:28→20:25)
[2023-05-10] MEDS: [UNRECOGNIZED DRUG - OTHER] TOP SCH ×2 (08:29→20:27)
[2023-05-10] MEDS: ZINC OXIDE OINT 30 GM TUBE TP SCH ×2 (08:29→20:27)
[2023-05-10] MEDS: VITAMINS A AND D OINT 42 GM TUBE TP SCH (08:29)
[2023-05-10] MEDS: [UNRECOGNIZED DRUG - OTHER] GT SCH ×2 (08:29→20:27)
[2023-05-10] MEDS: REMEDY ESSENTIAL ZINC PASTE 113 GM TOP SCH ×2 (08:29→20:27)
[2023-05-10] MEDS: HEPARIN SODIUM,PORCINE 5,000 UNITS/ML VIAL SQ SCH ×2 (08:33→20:27)
[2023-05-10 09:45] VITALS: O2SAT 95
[2023-05-10] MEDS: HYDROGEN PEROXIDE 3% 118 ML BOTTLE TP SCH ×2 (09:53→21:00)
[2023-05-10] MEDS: JEVITY 1.2 1000 ML LIQUID GT PRN (14:46)
[2023-05-10 19:38] VITALS: TEMP 98.3
[2023-05-10 19:39] VITALS: O2SAT 98
[2023-05-10 20:05] VITALS: O2SAT 98
[2023-05-10] MEDS: OMEGA-3 FATTY ACIDS/FISH OIL CAPSULE GT SCH (20:25)
[2023-05-11] MEDS: CHOLECALCIFEROL 1,000 UNIT TABLET GT SCH (05:27)
[2023-05-11] MEDS: LORATADINE 10 MG TABLET GT SCH (05:27)
[2023-05-11] MEDS: OMEPRAZOLE 20 MG CAPSULE.DR GT SCH (05:27)
[2023-05-11 07:23] VITALS: TEMP 97.7
[2023-05-11] MEDS: [UNRECOGNIZED DRUG - OTHER] GT SCH ×2 (08:27→21:00)
[2023-05-11] MEDS: [UNRECOGNIZED DRUG - OTHER] TOP SCH ×2 (08:27→21:00)
[2023-05-11] MEDS: DOCUSATE SODIUM 100 MG/10 ML LIQUID UDC GT SCH ×2 (08:27→21:00)
[2023-05-11] MEDS: BACLOFEN 10 MG TABLET GT SCH ×3 (08:27→16:55)
[2023-05-11] MEDS: ZINC OXIDE OINT 30 GM TUBE TP SCH ×2 (08:28→21:00)
[2023-05-11] MEDS: VITAMINS A AND D OINT 42 GM TUBE TP SCH (08:28)
[2023-05-11] MEDS: REMEDY ESSENTIAL ZINC PASTE 113 GM TOP SCH ×2 (08:28→21:00)
[2023-05-11] MEDS: HEPARIN SODIUM,PORCINE 5,000 UNITS/ML VIAL SQ SCH ×2 (08:30→21:00)
[2023-05-11] MEDS: HYDROGEN PEROXIDE 3% 118 ML BOTTLE TP SCH ×2 (08:47→19:21)
[2023-05-11 10:25] VITALS: O2SAT 99
[2023-05-11] MEDS: JEVITY 1.2 1000 ML LIQUID GT PRN (11:08)
[2023-05-11 19:51] VITALS: TEMP 98.6
[2023-05-11 20:45] VITALS: O2SAT 99
[2023-05-11] MEDS: OMEGA-3 FATTY ACIDS/FISH OIL CAPSULE GT SCH (21:00)
[2023-05-12] MEDS: JEVITY 1.2 1000 ML LIQUID GT PRN (02:12)
[2023-05-12] MEDS: OMEPRAZOLE 20 MG CAPSULE.DR GT SCH (06:07)
[2023-05-12] MEDS: LORATADINE 10 MG TABLET GT SCH (06:07)
[2023-05-12] MEDS: CHOLECALCIFEROL 1,000 UNIT TABLET GT SCH (06:07)
[2023-05-12 07:19] VITALS: TEMP 97.8
[2023-05-12] MEDS: [UNRECOGNIZED DRUG - OTHER] GT SCH ×2 (08:24→20:43)
[2023-05-12] MEDS: REMEDY ESSENTIAL ZINC PASTE 113 GM TOP SCH ×2 (08:24→20:45)
[2023-05-12] MEDS: [UNRECOGNIZED DRUG - OTHER] TOP SCH ×2 (08:24→20:45)
[2023-05-12] MEDS: DOCUSATE SODIUM 100 MG/10 ML LIQUID UDC GT SCH ×2 (08:24→20:43)
[2023-05-12] MEDS: BACLOFEN 10 MG TABLET GT SCH ×3 (08:24→17:21)
[2023-05-12] MEDS: HEPARIN SODIUM,PORCINE 5,000 UNITS/ML VIAL SQ SCH ×2 (08:25→20:44)
[2023-05-12] MEDS: VITAMINS A AND D OINT 42 GM TUBE TP SCH (08:26)
[2023-05-12] MEDS: KETOCONAZOLE 2% SHAMPOO 120 ML BOTTLE TP SCH (08:26)
[2023-05-12] MEDS: ZINC OXIDE OINT 30 GM TUBE TP SCH ×2 (08:26→20:45)
[2023-05-12] MEDS: HYDROGEN PEROXIDE 3% 118 ML BOTTLE TP SCH ×2 (08:54→21:30)
[2023-05-12 09:50] VITALS: O2SAT 99
[2023-05-12 20:00] VITALS: TEMP 98.1
[2023-05-12 20:10] VITALS: O2SAT 99
[2023-05-12] MEDS: OMEGA-3 FATTY ACIDS/FISH OIL CAPSULE GT SCH (20:43)
[2023-05-13] MEDS: LORATADINE 10 MG TABLET GT SCH (05:48)
[2023-05-13] MEDS: JEVITY 1.2 1000 ML LIQUID GT PRN (05:48)
[2023-05-13] MEDS: OMEPRAZOLE 20 MG CAPSULE.DR GT SCH (05:48)
[2023-05-13] MEDS: CHOLECALCIFEROL 1,000 UNIT TABLET GT SCH (05:48)
[2023-05-13 07:20] VITALS: O2SAT 99
[2023-05-13 07:59] VITALS: TEMP 99.2
[2023-05-13] MEDS: HEPARIN SODIUM,PORCINE 5,000 UNITS/ML VIAL SQ SCH ×2 (08:37→21:00)
[2023-05-13] MEDS: [UNRECOGNIZED DRUG - OTHER] GT SCH ×2 (08:38→21:00)
[2023-05-13] MEDS: REMEDY ESSENTIAL ZINC PASTE 113 GM TOP SCH ×2 (08:38→21:00)
[2023-05-13] MEDS: BACLOFEN 10 MG TABLET GT SCH ×3 (08:38→17:01)
[2023-05-13] MEDS: ZINC OXIDE OINT 30 GM TUBE TP SCH ×2 (08:38→21:00)
[2023-05-13] MEDS: VITAMINS A AND D OINT 42 GM TUBE TP SCH (08:38)
[2023-05-13] MEDS: [UNRECOGNIZED DRUG - OTHER] TOP SCH ×2 (08:38→21:00)
[2023-05-13] MEDS: DOCUSATE SODIUM 100 MG/10 ML LIQUID UDC GT SCH ×2 (08:38→21:00)
[2023-05-13] MEDS: HYDROGEN PEROXIDE 3% 118 ML BOTTLE TP SCH ×2 (08:53→21:00)
[2023-05-13 19:40] VITALS: O2SAT 98
[2023-05-13] MEDS: OMEGA-3 FATTY ACIDS/FISH OIL CAPSULE GT SCH (21:00)
[2023-05-14] MEDS: JEVITY 1.2 1000 ML LIQUID GT PRN ×2 (02:10→20:27)
[2023-05-14] MEDS: CHOLECALCIFEROL 1,000 UNIT TABLET GT SCH (05:50)
[2023-05-14] MEDS: OMEPRAZOLE 20 MG CAPSULE.DR GT SCH (05:50)
[2023-05-14] MEDS: LORATADINE 10 MG TABLET GT SCH (05:50)
[2023-05-14] MEDS: HYDROGEN PEROXIDE 3% 118 ML BOTTLE TP SCH ×2 (08:10→20:50)
[2023-05-14 08:15] VITALS: TEMP 98
[2023-05-14] MEDS: HEPARIN SODIUM,PORCINE 5,000 UNITS/ML VIAL SQ SCH ×2 (09:00→20:35)
[2023-05-14] MEDS: REMEDY ESSENTIAL ZINC PASTE 113 GM TOP SCH ×2 (09:00→20:27)
[2023-05-14] MEDS: DOCUSATE SODIUM 100 MG/10 ML LIQUID UDC GT SCH ×2 (09:00→20:26)
[2023-05-14] MEDS: ZINC OXIDE OINT 30 GM TUBE TP SCH ×2 (09:00→20:27)
[2023-05-14] MEDS: BACLOFEN 10 MG TABLET GT SCH ×3 (09:00→16:41)
[2023-05-14] MEDS: VITAMINS A AND D OINT 42 GM TUBE TP SCH (09:00)
[2023-05-14] MEDS: [UNRECOGNIZED DRUG - OTHER] GT SCH ×2 (09:00→20:26)
[2023-05-14] MEDS: [UNRECOGNIZED DRUG - OTHER] TOP SCH ×2 (09:00→20:26)
[2023-05-14 10:50] VITALS: O2SAT 99
[2023-05-14 19:24] VITALS: O2SAT 99
[2023-05-14] MEDS: OMEGA-3 FATTY ACIDS/FISH OIL CAPSULE GT SCH (20:26)
[2023-05-14 21:25] VITALS: TEMP 98.4
[2023-05-15] MEDS: LORATADINE 10 MG TABLET GT SCH (06:17)
[2023-05-15] MEDS: OMEPRAZOLE 20 MG CAPSULE.DR GT SCH (06:17)
[2023-05-15] MEDS: CHOLECALCIFEROL 1,000 UNIT TABLET GT SCH (06:17)
[2023-05-15 07:06] VITALS: O2SAT 99
[2023-05-15 08:27] VITALS: TEMP 98.3
[2023-05-15] MEDS: HYDROGEN PEROXIDE 3% 118 ML BOTTLE TP SCH ×2 (08:29→19:06)
[2023-05-15] MEDS: [UNRECOGNIZED DRUG - OTHER] GT SCH ×2 (08:35→20:08)
[2023-05-15] MEDS: BACLOFEN 10 MG TABLET GT SCH ×3 (08:35→17:40)
[2023-05-15] MEDS: DOCUSATE SODIUM 100 MG/10 ML LIQUID UDC GT SCH ×2 (08:35→20:08)
[2023-05-15] MEDS: REMEDY ESSENTIAL ZINC PASTE 113 GM TOP SCH ×2 (08:36→20:09)
[2023-05-15] MEDS: [UNRECOGNIZED DRUG - OTHER] TOP SCH ×2 (08:36→20:09)
[2023-05-15] MEDS: KETOCONAZOLE 2% SHAMPOO 120 ML BOTTLE TP SCH (08:36)
[2023-05-15] MEDS: VITAMINS A AND D OINT 42 GM TUBE TP SCH (08:36)
[2023-05-15] MEDS: ZINC OXIDE OINT 30 GM TUBE TP SCH ×2 (08:36→20:09)
[2023-05-15] MEDS: HEPARIN SODIUM,PORCINE 5,000 UNITS/ML VIAL SQ SCH ×2 (08:36→20:09)
[2023-05-15 15:29] VITALS: O2SAT 99
[2023-05-15] MEDS: JEVITY 1.2 1000 ML LIQUID GT PRN (17:41)
[2023-05-15 20:00] VITALS: TEMP 98.5
[2023-05-15] MEDS: OMEGA-3 FATTY ACIDS/FISH OIL CAPSULE GT SCH (20:08)
[2023-05-15 20:30] VITALS: O2SAT 99
[2023-05-16] MEDS ORDERED: DIATR MEGLU/DIATRIZOATE SODIUM 30 ML BOTTLE ONE (05:43)
[2023-05-16] MEDS: LORATADINE 10 MG TABLET GT SCH (06:50)
[2023-05-16] MEDS: OMEPRAZOLE 20 MG CAPSULE.DR GT SCH (06:50)
[2023-05-16] MEDS: CHOLECALCIFEROL 1,000 UNIT TABLET GT SCH (06:50)
[2023-05-16 08:07] VITALS: TEMP 98.2
[2023-05-16 08:10] VITALS: O2SAT 98
[2023-05-16] MEDS: DOCUSATE SODIUM 100 MG/10 ML LIQUID UDC GT SCH ×2 (08:21→21:08)
[2023-05-16] MEDS: [UNRECOGNIZED DRUG - OTHER] GT SCH ×2 (08:21→21:08)
[2023-05-16] MEDS: BACLOFEN 10 MG TABLET GT SCH ×3 (08:21→16:35)
[2023-05-16] MEDS: HEPARIN SODIUM,PORCINE 5,000 UNITS/ML VIAL SQ SCH ×2 (08:22→21:00)
[2023-05-16] MEDS: ZINC OXIDE OINT 30 GM TUBE TP SCH ×2 (08:23→21:08)
[2023-05-16] MEDS: REMEDY ESSENTIAL ZINC PASTE 113 GM TOP SCH ×2 (08:23→21:08)
[2023-05-16] MEDS: VITAMINS A AND D OINT 42 GM TUBE TP SCH (08:23)
[2023-05-16] MEDS: [UNRECOGNIZED DRUG - OTHER] TOP SCH ×2 (08:23→21:08)
[2023-05-16] MEDS: HYDROGEN PEROXIDE 3% 118 ML BOTTLE TP SCH ×2 (09:04→21:47)
[2023-05-16] MEDS: JEVITY 1.2 1000 ML LIQUID GT PRN (12:32)
[2023-05-16 20:00] VITALS: TEMP 98.6
[2023-05-16] MEDS: OMEGA-3 FATTY ACIDS/FISH OIL CAPSULE GT SCH (21:08)
[2023-05-16 22:12] VITALS: O2SAT 99
[2023-05-17] MEDS: JEVITY 1.2 1000 ML LIQUID GT PRN (05:07)
[2023-05-17] MEDS: CHOLECALCIFEROL 1,000 UNIT TABLET GT SCH (05:07)
[2023-05-17] MEDS: OMEPRAZOLE 20 MG CAPSULE.DR GT SCH (05:07)
[2023-05-17] MEDS: LORATADINE 10 MG TABLET GT SCH (05:07)
[2023-05-17 07:40] VITALS: TEMP 98.1
[2023-05-17] MEDS: [UNRECOGNIZED DRUG - OTHER] GT SCH ×2 (08:08→20:25)
[2023-05-17] MEDS: REMEDY ESSENTIAL ZINC PASTE 113 GM TOP SCH ×2 (08:08→20:25)
[2023-05-17] MEDS: VITAMINS A AND D OINT 42 GM TUBE TP SCH (08:08)
[2023-05-17] MEDS: DOCUSATE SODIUM 100 MG/10 ML LIQUID UDC GT SCH ×2 (08:08→20:25)
[2023-05-17] MEDS: [UNRECOGNIZED DRUG - OTHER] TOP SCH ×2 (08:08→20:25)
[2023-05-17] MEDS: BACLOFEN 10 MG TABLET GT SCH ×3 (08:08→17:29)
[2023-05-17] MEDS: HEPARIN SODIUM,PORCINE 5,000 UNITS/ML VIAL SQ SCH ×2 (08:09→20:25)
[2023-05-17] MEDS: ZINC OXIDE OINT 30 GM TUBE TP SCH ×2 (08:09→20:25)
[2023-05-17] MEDS: HYDROGEN PEROXIDE 3% 118 ML BOTTLE TP SCH ×2 (09:32→21:43)
[2023-05-17 09:45] VITALS: O2SAT 98
[2023-05-17 20:00] VITALS: TEMP 97.7; O2SAT 99
[2023-05-17] MEDS: OMEGA-3 FATTY ACIDS/FISH OIL CAPSULE GT SCH (20:25)
[2023-05-18] MEDS: JEVITY 1.2 1000 ML LIQUID GT PRN (02:32)
[2023-05-18] MEDS: CHOLECALCIFEROL 1,000 UNIT TABLET GT SCH (05:03)
[2023-05-18] MEDS: LORATADINE 10 MG TABLET GT SCH (05:03)
[2023-05-18] MEDS: OMEPRAZOLE 20 MG CAPSULE.DR GT SCH (05:03)
[2023-05-18 07:15] VITALS: O2SAT 98
[2023-05-18] MEDS: HYDROGEN PEROXIDE 3% 118 ML BOTTLE TP SCH ×2 (07:15→21:58)
[2023-05-18 07:50] VITALS: TEMP 97.6
[2023-05-18] MEDS: HEPARIN SODIUM,PORCINE 5,000 UNITS/ML VIAL SQ SCH ×2 (08:02→20:26)
[2023-05-18] MEDS: DOCUSATE SODIUM 100 MG/10 ML LIQUID UDC GT SCH ×2 (08:03→20:26)
[2023-05-18] MEDS: [UNRECOGNIZED DRUG - OTHER] GT SCH ×2 (08:05→20:26)
[2023-05-18] MEDS: BACLOFEN 10 MG TABLET GT SCH ×3 (08:05→16:02)
[2023-05-18] MEDS: [UNRECOGNIZED DRUG - OTHER] TOP SCH ×2 (08:06→20:26)
[2023-05-18] MEDS: REMEDY ESSENTIAL ZINC PASTE 113 GM TOP SCH ×2 (08:06→20:27)
[2023-05-18] MEDS: VITAMINS A AND D OINT 42 GM TUBE TP SCH (08:06)
[2023-05-18] MEDS: ZINC OXIDE OINT 30 GM TUBE TP SCH ×2 (08:06→20:27)
[2023-05-18 19:25] VITALS: O2SAT 99
[2023-05-18 20:00] VITALS: TEMP 97.8
[2023-05-18] MEDS: OMEGA-3 FATTY ACIDS/FISH OIL CAPSULE GT SCH (20:26)
[2023-05-19] MEDS: JEVITY 1.2 1000 ML LIQUID GT PRN ×2 (01:00→04:00)
[2023-05-19] MEDS: OMEPRAZOLE 20 MG CAPSULE.DR GT SCH (06:05)
[2023-05-19] MEDS: LORATADINE 10 MG TABLET GT SCH (06:05)
[2023-05-19] MEDS: CHOLECALCIFEROL 1,000 UNIT TABLET GT SCH (06:05)
[2023-05-19 07:39] VITALS: TEMP 97.3
[2023-05-19] MEDS: BACLOFEN 10 MG TABLET GT SCH ×3 (08:43→17:53)
[2023-05-19] MEDS: [UNRECOGNIZED DRUG - OTHER] GT SCH ×2 (08:43→20:12)
[2023-05-19] MEDS: DOCUSATE SODIUM 100 MG/10 ML LIQUID UDC GT SCH ×2 (08:43→20:12)
[2023-05-19] MEDS: [UNRECOGNIZED DRUG - OTHER] TOP SCH ×2 (08:44→20:13)
[2023-05-19] MEDS: REMEDY ESSENTIAL ZINC PASTE 113 GM TOP SCH ×2 (08:44→20:13)
[2023-05-19] MEDS: KETOCONAZOLE 2% SHAMPOO 120 ML BOTTLE TP SCH (08:44)
[2023-05-19] MEDS: VITAMINS A AND D OINT 42 GM TUBE TP SCH (08:44)
[2023-05-19] MEDS: ZINC OXIDE OINT 30 GM TUBE TP SCH ×2 (08:44→20:13)
[2023-05-19] MEDS: HEPARIN SODIUM,PORCINE 5,000 UNITS/ML VIAL SQ SCH ×2 (08:47→20:13)
[2023-05-19] MEDS: HYDROGEN PEROXIDE 3% 118 ML BOTTLE TP SCH ×2 (09:31→20:48)
[2023-05-19 20:00] VITALS: TEMP 98.8
[2023-05-19] MEDS: OMEGA-3 FATTY ACIDS/FISH OIL CAPSULE GT SCH (20:12)
[2023-05-19 20:58] VITALS: O2SAT 99
[2023-05-20] MEDS: OMEPRAZOLE 20 MG CAPSULE.DR GT SCH (05:22)
[2023-05-20] MEDS: CHOLECALCIFEROL 1,000 UNIT TABLET GT SCH (05:22)
[2023-05-20] MEDS: LORATADINE 10 MG TABLET GT SCH (05:22)
[2023-05-20 07:15] VITALS: O2SAT 98
[2023-05-20 08:00] VITALS: TEMP 98.8
[2023-05-20] MEDS: [UNRECOGNIZED DRUG - OTHER] TOP SCH ×2 (08:44→20:24)
[2023-05-20] MEDS: BACLOFEN 10 MG TABLET GT SCH ×3 (08:44→16:40)
[2023-05-20] MEDS: DOCUSATE SODIUM 100 MG/10 ML LIQUID UDC GT SCH ×2 (08:44→20:23)
[2023-05-20] MEDS: [UNRECOGNIZED DRUG - OTHER] GT SCH ×2 (08:44→20:23)
[2023-05-20] MEDS: ZINC OXIDE OINT 30 GM TUBE TP SCH ×2 (08:45→20:24)
[2023-05-20] MEDS: VITAMINS A AND D OINT 42 GM TUBE TP SCH (08:45)
[2023-05-20] MEDS: REMEDY ESSENTIAL ZINC PASTE 113 GM TOP SCH ×2 (08:45→20:24)
[2023-05-20] MEDS: HEPARIN SODIUM,PORCINE 5,000 UNITS/ML VIAL SQ SCH ×2 (08:45→20:24)
[2023-05-20] MEDS: HYDROGEN PEROXIDE 3% 118 ML BOTTLE TP SCH ×2 (09:06→20:48)
[2023-05-20] MEDS: JEVITY 1.2 1000 ML LIQUID GT PRN ×2 (19:15)
[2023-05-20 20:00] VITALS: TEMP 98.8
[2023-05-20] MEDS: OMEGA-3 FATTY ACIDS/FISH OIL CAPSULE GT SCH (20:23)
[2023-05-20 20:54] VITALS: O2SAT 99
[2023-05-21] MEDS: LORATADINE 10 MG TABLET GT SCH (05:29)
[2023-05-21] MEDS: CHOLECALCIFEROL 1,000 UNIT TABLET GT SCH (05:29)
[2023-05-21] MEDS: OMEPRAZOLE 20 MG CAPSULE.DR GT SCH (05:29)
[2023-05-21] MEDS: HYDROGEN PEROXIDE 3% 118 ML BOTTLE TP SCH ×2 (07:37→19:04)
[2023-05-21 08:00] VITALS: TEMP 98.2
[2023-05-21] MEDS: BACLOFEN 10 MG TABLET GT SCH ×3 (08:34→17:28)
[2023-05-21] MEDS: [UNRECOGNIZED DRUG - OTHER] GT SCH ×2 (08:34→21:00)
[2023-05-21] MEDS: DOCUSATE SODIUM 100 MG/10 ML LIQUID UDC GT SCH ×2 (08:34→21:00)
[2023-05-21] MEDS: ZINC OXIDE OINT 30 GM TUBE TP SCH ×2 (08:35→21:00)
[2023-05-21] MEDS: [UNRECOGNIZED DRUG - OTHER] TOP SCH ×2 (08:35→21:00)
[2023-05-21] MEDS: HEPARIN SODIUM,PORCINE 5,000 UNITS/ML VIAL SQ SCH ×2 (08:35→21:00)
[2023-05-21] MEDS: VITAMINS A AND D OINT 42 GM TUBE TP SCH (08:35)
[2023-05-21] MEDS: REMEDY ESSENTIAL ZINC PASTE 113 GM TOP SCH ×2 (08:35→21:00)
[2023-05-21 10:30] VITALS: O2SAT 98
[2023-05-21] MEDS: JEVITY 1.2 1000 ML LIQUID GT PRN (14:18)
[2023-05-21 19:15] VITALS: O2SAT 99
[2023-05-21 20:00] VITALS: TEMP 97.9
[2023-05-21] MEDS: OMEGA-3 FATTY ACIDS/FISH OIL CAPSULE GT SCH (21:00)
[2023-05-22] MEDS: CHOLECALCIFEROL 1,000 UNIT TABLET GT SCH (05:51)
[2023-05-22] MEDS: OMEPRAZOLE 20 MG CAPSULE.DR GT SCH (05:51)
[2023-05-22] MEDS: LORATADINE 10 MG TABLET GT SCH (05:51)
[2023-05-22 08:00] VITALS: TEMP 97.8
[2023-05-22 08:20] VITALS: O2SAT 99
[2023-05-22] MEDS: HYDROGEN PEROXIDE 3% 118 ML BOTTLE TP SCH ×2 (08:43→21:00)
[2023-05-22] MEDS: DOCUSATE SODIUM 100 MG/10 ML LIQUID UDC GT SCH ×2 (09:00→20:35)
[2023-05-22] MEDS: REMEDY ESSENTIAL ZINC PASTE 113 GM TOP SCH ×2 (09:03→20:38)
[2023-05-22] MEDS: [UNRECOGNIZED DRUG - OTHER] TOP SCH ×2 (09:03→20:35)
[2023-05-22] MEDS: VITAMINS A AND D OINT 42 GM TUBE TP SCH (09:03)
[2023-05-22] MEDS: [UNRECOGNIZED DRUG - OTHER] GT SCH ×2 (09:04→20:35)
[2023-05-22] MEDS: KETOCONAZOLE 2% SHAMPOO 120 ML BOTTLE TP SCH (09:04)
[2023-05-22] MEDS: ZINC OXIDE OINT 30 GM TUBE TP SCH ×2 (09:04→20:38)
[2023-05-22] MEDS: HEPARIN SODIUM,PORCINE 5,000 UNITS/ML VIAL SQ SCH ×2 (09:05→21:00)
[2023-05-22] MEDS: BACLOFEN 10 MG TABLET GT SCH ×3 (09:10→17:56)
[2023-05-22 19:36] VITALS: TEMP 98.3
[2023-05-22 20:10] VITALS: O2SAT 99
[2023-05-22] MEDS: OMEGA-3 FATTY ACIDS/FISH OIL CAPSULE GT SCH (20:35)
[2023-05-23] MEDS: LORATADINE 10 MG TABLET GT SCH (05:04)
[2023-05-23] MEDS: OMEPRAZOLE 20 MG CAPSULE.DR GT SCH (05:04)
[2023-05-23] MEDS: CHOLECALCIFEROL 1,000 UNIT TABLET GT SCH (05:04)
[2023-05-23 07:27] VITALS: TEMP 99
[2023-05-23 08:10] VITALS: O2SAT 98
[2023-05-23] MEDS: DOCUSATE SODIUM 100 MG/10 ML LIQUID UDC GT SCH ×2 (08:50→20:30)
[2023-05-23] MEDS: [UNRECOGNIZED DRUG - OTHER] GT SCH ×2 (08:51→20:30)
[2023-05-23] MEDS: BACLOFEN 10 MG TABLET GT SCH ×3 (08:51→17:21)
[2023-05-23] MEDS: REMEDY ESSENTIAL ZINC PASTE 113 GM TOP SCH ×2 (08:52→20:32)
[2023-05-23] MEDS: [UNRECOGNIZED DRUG - OTHER] TOP SCH ×2 (08:52→20:31)
[2023-05-23] MEDS: HEPARIN SODIUM,PORCINE 5,000 UNITS/ML VIAL SQ SCH ×2 (08:52→20:30)
[2023-05-23] MEDS: VITAMINS A AND D 5 GM UD PKT TP SCH (08:52)
[2023-05-23] MEDS: ZINC OXIDE OINT 30 GM TUBE TP SCH ×2 (08:52→20:32)
[2023-05-23] MEDS: HYDROGEN PEROXIDE 3% 118 ML BOTTLE TP SCH ×2 (09:44→21:58)
[2023-05-23] MEDS: JEVITY 1.2 1000 ML LIQUID GT PRN (11:52)
[2023-05-23 19:39] VITALS: TEMP 99
[2023-05-23] MEDS: OMEGA-3 FATTY ACIDS/FISH OIL CAPSULE GT SCH (20:30)
[2023-05-24] MEDS: JEVITY 1.2 1000 ML LIQUID GT PRN ×2 (03:44→18:02)
[2023-05-24] MEDS: LORATADINE 10 MG TABLET GT SCH (05:21)
[2023-05-24] MEDS: OMEPRAZOLE 20 MG CAPSULE.DR GT SCH (05:21)
[2023-05-24] MEDS: CHOLECALCIFEROL 1,000 UNIT TABLET GT SCH (05:21)
[2023-05-24 08:00] VITALS: TEMP 98.1
[2023-05-24] MEDS: DOCUSATE SODIUM 100 MG/10 ML LIQUID UDC GT SCH ×2 (08:59→20:22)
[2023-05-24] MEDS: [UNRECOGNIZED DRUG - OTHER] GT SCH ×2 (08:59→20:23)
[2023-05-24] MEDS: BACLOFEN 10 MG TABLET GT SCH ×3 (08:59→17:23)
[2023-05-24 09:00] VITALS: O2SAT 98
[2023-05-24] MEDS: [UNRECOGNIZED DRUG - OTHER] TOP SCH ×2 (09:00→20:25)
[2023-05-24] MEDS: VITAMINS A AND D 5 GM UD PKT TP SCH (09:01)
[2023-05-24] MEDS: REMEDY ESSENTIAL ZINC PASTE 113 GM TOP SCH ×2 (09:01→20:25)
[2023-05-24] MEDS: ZINC OXIDE OINT 30 GM TUBE TP SCH ×2 (09:01→20:25)
[2023-05-24] MEDS: HEPARIN SODIUM,PORCINE 5,000 UNITS/ML VIAL SQ SCH ×2 (09:02→20:25)
[2023-05-24] MEDS: HYDROGEN PEROXIDE 3% 118 ML BOTTLE TP SCH ×2 (09:10→21:30)
[2023-05-24 20:08] VITALS: TEMP 98.5
[2023-05-24] MEDS: OMEGA-3 FATTY ACIDS/FISH OIL CAPSULE GT SCH (20:22)
[2023-05-24 20:56] VITALS: O2SAT 99
[2023-05-25] MEDS: LORATADINE 10 MG TABLET GT SCH (05:17)
[2023-05-25] MEDS: CHOLECALCIFEROL 1,000 UNIT TABLET GT SCH (05:17)
[2023-05-25] MEDS: OMEPRAZOLE 20 MG CAPSULE.DR GT SCH (05:17)
[2023-05-25 08:00] VITALS: TEMP 98.2
[2023-05-25] MEDS: HEPARIN SODIUM,PORCINE 5,000 UNITS/ML VIAL SQ SCH ×2 (08:20→21:00)
[2023-05-25] MEDS: HYDROGEN PEROXIDE 3% 118 ML BOTTLE TP SCH ×2 (08:20→23:09)
[2023-05-25] MEDS: DOCUSATE SODIUM 100 MG/10 ML LIQUID UDC GT SCH ×2 (08:26→21:00)
[2023-05-25] MEDS: [UNRECOGNIZED DRUG - OTHER] GT SCH ×2 (08:26→21:00)
[2023-05-25] MEDS: [UNRECOGNIZED DRUG - OTHER] TOP SCH ×2 (08:26→21:00)
[2023-05-25] MEDS: REMEDY ESSENTIAL ZINC PASTE 113 GM TOP SCH ×2 (08:26→21:00)
[2023-05-25] MEDS: BACLOFEN 10 MG TABLET GT SCH ×3 (08:26→17:27)
[2023-05-25] MEDS: VITAMINS A AND D 5 GM UD PKT TP SCH (08:35)
[2023-05-25] MEDS: ZINC OXIDE OINT 30 GM TUBE TP SCH ×2 (08:35→21:00)
[2023-05-25 10:30] VITALS: O2SAT 99
[2023-05-25 20:04] VITALS: TEMP 98.3
[2023-05-25] MEDS: OMEGA-3 FATTY ACIDS/FISH OIL CAPSULE GT SCH (21:00)
[2023-05-26] MEDS: CHOLECALCIFEROL 1,000 UNIT TABLET GT SCH (06:30)
[2023-05-26] MEDS: LORATADINE 10 MG TABLET GT SCH (06:30)
[2023-05-26] MEDS: OMEPRAZOLE 20 MG CAPSULE.DR GT SCH (06:30)
[2023-05-26 08:00] VITALS: TEMP 97.6
[2023-05-26] MEDS: DOCUSATE SODIUM 100 MG/10 ML LIQUID UDC GT SCH ×2 (08:30→21:00)
[2023-05-26] MEDS: [UNRECOGNIZED DRUG - OTHER] TOP SCH ×2 (08:30→21:00)
[2023-05-26] MEDS: KETOCONAZOLE 2% SHAMPOO 120 ML BOTTLE TP SCH (08:30)
[2023-05-26] MEDS: [UNRECOGNIZED DRUG - OTHER] GT SCH ×2 (08:30→21:00)
[2023-05-26] MEDS: BACLOFEN 10 MG TABLET GT SCH ×3 (08:30→17:00)
[2023-05-26] MEDS: REMEDY ESSENTIAL ZINC PASTE 113 GM TOP SCH ×2 (08:30→21:00)
[2023-05-26] MEDS: ZINC OXIDE OINT 30 GM TUBE TP SCH ×2 (08:31→21:00)
[2023-05-26] MEDS: VITAMINS A AND D 5 GM UD PKT TP SCH (08:31)
[2023-05-26] MEDS: HEPARIN SODIUM,PORCINE 5,000 UNITS/ML VIAL SQ SCH ×2 (08:33→21:00)
[2023-05-26] MEDS: HYDROGEN PEROXIDE 3% 118 ML BOTTLE TP SCH ×2 (09:00→21:00)
[2023-05-26 10:00] VITALS: O2SAT 98
[2023-05-26 20:10] VITALS: TEMP 98.7
[2023-05-26 20:15] VITALS: O2SAT 99
[2023-05-26] MEDS: OMEGA-3 FATTY ACIDS/FISH OIL CAPSULE GT SCH (21:00)
[2023-05-27] MEDS: JEVITY 1.2 1000 ML LIQUID GT PRN ×2 (03:00→18:45)
[2023-05-27] MEDS: LORATADINE 10 MG TABLET GT SCH (06:59)
[2023-05-27] MEDS: CHOLECALCIFEROL 1,000 UNIT TABLET GT SCH (06:59)
[2023-05-27] MEDS: OMEPRAZOLE 20 MG CAPSULE.DR GT SCH (06:59)
[2023-05-27 08:00] VITALS: TEMP 97.8
[2023-05-27] MEDS: BACLOFEN 10 MG TABLET GT SCH ×3 (08:20→16:25)
[2023-05-27] MEDS: DOCUSATE SODIUM 100 MG/10 ML LIQUID UDC GT SCH ×2 (08:20→20:27)
[2023-05-27] MEDS: [UNRECOGNIZED DRUG - OTHER] GT SCH ×2 (08:20→20:27)
[2023-05-27] MEDS: HEPARIN SODIUM,PORCINE 5,000 UNITS/ML VIAL SQ SCH ×2 (08:21→20:27)
[2023-05-27] MEDS: REMEDY ESSENTIAL ZINC PASTE 113 GM TOP SCH ×2 (08:21→20:27)
[2023-05-27] MEDS: VITAMINS A AND D 5 GM UD PKT TP SCH (08:21)
[2023-05-27] MEDS: [UNRECOGNIZED DRUG - OTHER] TOP SCH ×2 (08:21→20:27)
[2023-05-27] MEDS: ZINC OXIDE OINT 30 GM TUBE TP SCH ×2 (08:22→20:27)
[2023-05-27] MEDS: HYDROGEN PEROXIDE 3% 118 ML BOTTLE TP SCH ×2 (09:00→21:24)
[2023-05-27 17:46] VITALS: O2SAT 95
[2023-05-27 20:00] VITALS: TEMP 98.6
[2023-05-27 20:12] VITALS: O2SAT 98
[2023-05-27] MEDS: OMEGA-3 FATTY ACIDS/FISH OIL CAPSULE GT SCH (20:27)
[2023-05-28] MEDS: LORATADINE 10 MG TABLET GT SCH (05:57)
[2023-05-28] MEDS: OMEPRAZOLE 20 MG CAPSULE.DR GT SCH (05:57)
[2023-05-28] MEDS: CHOLECALCIFEROL 1,000 UNIT TABLET GT SCH (05:57)
[2023-05-28 07:49] VITALS: TEMP 98
[2023-05-28] MEDS: [UNRECOGNIZED DRUG - OTHER] GT SCH ×2 (08:28→20:38)
[2023-05-28] MEDS: DOCUSATE SODIUM 100 MG/10 ML LIQUID UDC GT SCH ×2 (08:28→20:41)
[2023-05-28] MEDS: BACLOFEN 10 MG TABLET GT SCH ×3 (08:28→16:54)
[2023-05-28] MEDS: [UNRECOGNIZED DRUG - OTHER] TOP SCH ×2 (08:31→20:38)
[2023-05-28] MEDS: HEPARIN SODIUM,PORCINE 5,000 UNITS/ML VIAL SQ SCH ×2 (08:31→21:32)
[2023-05-28] MEDS: REMEDY ESSENTIAL ZINC PASTE 113 GM TOP SCH ×2 (08:32→20:39)
[2023-05-28] MEDS: VITAMINS A AND D 5 GM UD PKT TP SCH (08:32)
[2023-05-28] MEDS: ZINC OXIDE OINT 30 GM TUBE TP SCH ×2 (08:32→20:39)
[2023-05-28 09:00] VITALS: O2SAT 99
[2023-05-28] MEDS: HYDROGEN PEROXIDE 3% 118 ML BOTTLE TP SCH ×2 (09:00→19:16)
[2023-05-28] MEDS: JEVITY 1.2 1000 ML LIQUID GT PRN (16:31)
[2023-05-28 19:45] VITALS: O2SAT 98
[2023-05-28 20:00] VITALS: TEMP 98.4
[2023-05-28] MEDS: OMEGA-3 FATTY ACIDS/FISH OIL CAPSULE GT SCH (20:38)
[2023-05-29] MEDS: OMEPRAZOLE 20 MG CAPSULE.DR GT SCH (05:14)
[2023-05-29] MEDS: LORATADINE 10 MG TABLET GT SCH (05:14)
[2023-05-29] MEDS: CHOLECALCIFEROL 1,000 UNIT TABLET GT SCH (05:14)
[2023-05-29 07:15] VITALS: O2SAT 99
[2023-05-29] MEDS: HYDROGEN PEROXIDE 3% 118 ML BOTTLE TP SCH ×2 (07:15→19:23)
[2023-05-29 07:36] VITALS: TEMP 98.8
[2023-05-29] MEDS: [UNRECOGNIZED DRUG - OTHER] GT SCH ×2 (09:11→20:12)
[2023-05-29] MEDS: DOCUSATE SODIUM 100 MG/10 ML LIQUID UDC GT SCH ×2 (09:11→20:12)
[2023-05-29] MEDS: BACLOFEN 10 MG TABLET GT SCH ×3 (09:11→16:47)
[2023-05-29] MEDS: ZINC OXIDE OINT 30 GM TUBE TP SCH ×2 (09:15→20:12)
[2023-05-29] MEDS: HEPARIN SODIUM,PORCINE 5,000 UNITS/ML VIAL SQ SCH ×2 (09:15→21:00)
[2023-05-29] MEDS: REMEDY ESSENTIAL ZINC PASTE 113 GM TOP SCH ×2 (09:15→20:12)
[2023-05-29] MEDS: [UNRECOGNIZED DRUG - OTHER] TOP SCH ×2 (09:15→20:12)
[2023-05-29] MEDS: KETOCONAZOLE 2% SHAMPOO 120 ML BOTTLE TP SCH (09:15)
[2023-05-29] MEDS: VITAMINS A AND D 5 GM UD PKT TP SCH (09:15)
[2023-05-29] MEDS: JEVITY 1.2 1000 ML LIQUID GT PRN (11:57)
[2023-05-29 19:40] VITALS: O2SAT 98
[2023-05-29] MEDS: OMEGA-3 FATTY ACIDS/FISH OIL CAPSULE GT SCH (20:12)
[2023-05-29 20:20] VITALS: TEMP 98.6
[2023-05-30] MEDS: JEVITY 1.2 1000 ML LIQUID GT PRN ×2 (03:13→23:30)
[2023-05-30] MEDS: LORATADINE 10 MG TABLET GT SCH (06:10)
[2023-05-30] MEDS: CHOLECALCIFEROL 1,000 UNIT TABLET GT SCH (06:10)
[2023-05-30] MEDS: OMEPRAZOLE 20 MG CAPSULE.DR GT SCH (06:10)
[2023-05-30 08:01] VITALS: TEMP 98.3
[2023-05-30] MEDS: BACLOFEN 10 MG TABLET GT SCH ×3 (08:41→17:15)
[2023-05-30] MEDS: [UNRECOGNIZED DRUG - OTHER] GT SCH ×2 (08:41→20:17)
[2023-05-30] MEDS: DOCUSATE SODIUM 100 MG/10 ML LIQUID UDC GT SCH ×2 (08:41→20:17)
[2023-05-30] MEDS: REMEDY ESSENTIAL ZINC PASTE 113 GM TOP SCH ×2 (08:43→20:18)
[2023-05-30] MEDS: HEPARIN SODIUM,PORCINE 5,000 UNITS/ML VIAL SQ SCH ×2 (08:43→20:17)
[2023-05-30] MEDS: VITAMINS A AND D 5 GM UD PKT TP SCH (08:43)
[2023-05-30] MEDS: [UNRECOGNIZED DRUG - OTHER] TOP SCH ×2 (08:43→20:18)
[2023-05-30] MEDS: ZINC OXIDE OINT 30 GM TUBE TP SCH ×2 (08:44→20:18)
[2023-05-30] MEDS: HYDROGEN PEROXIDE 3% 118 ML BOTTLE TP SCH ×2 (09:17→20:41)
[2023-05-30 09:30] VITALS: O2SAT 99
[2023-05-30 19:50] VITALS: TEMP 98.4
[2023-05-30] MEDS: OMEGA-3 FATTY ACIDS/FISH OIL CAPSULE GT SCH (20:17)
[2023-05-30 20:41] VITALS: O2SAT 99
[2023-05-31] MEDS: LORATADINE 10 MG TABLET GT SCH (05:09)
[2023-05-31] MEDS: OMEPRAZOLE 20 MG CAPSULE.DR GT SCH (05:09)
[2023-05-31] MEDS: CHOLECALCIFEROL 1,000 UNIT TABLET GT SCH (05:09)
[2023-05-31 07:33] VITALS: TEMP 98.8
[2023-05-31 08:30] VITALS: O2SAT 99
[2023-05-31] MEDS: HYDROGEN PEROXIDE 3% 118 ML BOTTLE TP SCH ×2 (09:19→21:00)
[2023-05-31] MEDS: HEPARIN SODIUM,PORCINE 5,000 UNITS/ML VIAL SQ SCH ×2 (09:28→20:17)
[2023-05-31] MEDS: VITAMINS A AND D 5 GM UD PKT TP SCH (09:29)
[2023-05-31] MEDS: [UNRECOGNIZED DRUG - OTHER] TOP SCH ×2 (09:29→20:18)
[2023-05-31] MEDS: ZINC OXIDE OINT 30 GM TUBE TP SCH ×2 (09:29→20:19)
[2023-05-31] MEDS: DOCUSATE SODIUM 100 MG/10 ML LIQUID UDC GT SCH ×2 (09:29→20:12)
[2023-05-31] MEDS: [UNRECOGNIZED DRUG - OTHER] GT SCH ×2 (09:29→20:14)
[2023-05-31] MEDS: REMEDY ESSENTIAL ZINC PASTE 113 GM TOP SCH ×2 (09:29→20:19)
[2023-05-31] MEDS: BACLOFEN 10 MG TABLET GT SCH ×3 (09:29→17:02)
[2023-05-31 19:51] VITALS: TEMP 98.6
[2023-05-31] MEDS: OMEGA-3 FATTY ACIDS/FISH OIL CAPSULE GT SCH (20:14)
[2023-05-31 21:00] VITALS: O2SAT 99
[2023-06-01] MEDS: CHOLECALCIFEROL 1,000 UNIT TABLET GT SCH (05:25)
[2023-06-01] MEDS: LORATADINE 10 MG TABLET GT SCH (05:25)
[2023-06-01] MEDS: OMEPRAZOLE 20 MG CAPSULE.DR GT SCH (05:25)
[2023-06-01 07:26] VITALS: TEMP 98.4
[2023-06-01 08:30] VITALS: O2SAT 99
[2023-06-01] MEDS: REMEDY ESSENTIAL ZINC PASTE 113 GM TOP SCH ×2 (08:46→20:17)
[2023-06-01] MEDS: BACLOFEN 10 MG TABLET GT SCH ×3 (08:46→17:41)
[2023-06-01] MEDS: ZINC OXIDE OINT 30 GM TUBE TP SCH ×2 (08:46→20:17)
[2023-06-01] MEDS: [UNRECOGNIZED DRUG - OTHER] TOP SCH ×2 (08:46→20:14)
[2023-06-01] MEDS: DOCUSATE SODIUM 100 MG/10 ML LIQUID UDC GT SCH ×2 (08:46→20:10)
[2023-06-01] MEDS: VITAMINS A AND D 5 GM UD PKT TP SCH (08:46)
[2023-06-01] MEDS: [UNRECOGNIZED DRUG - OTHER] GT SCH ×2 (08:46→20:13)
[2023-06-01] MEDS: HYDROGEN PEROXIDE 3% 118 ML BOTTLE TP SCH ×2 (09:00→19:15)
[2023-06-01] MEDS: HEPARIN SODIUM,PORCINE 5,000 UNITS/ML VIAL SQ SCH ×2 (09:33→20:14)
[2023-06-01 19:30] VITALS: O2SAT 99
[2023-06-01 19:46] VITALS: TEMP 98.6
[2023-06-01] MEDS: OMEGA-3 FATTY ACIDS/FISH OIL CAPSULE GT SCH (20:12)
[2023-06-02] MEDS: JEVITY 1.2 1000 ML LIQUID GT PRN (02:00)
[2023-06-02] MEDS: CHOLECALCIFEROL 1,000 UNIT TABLET GT SCH (05:16)
[2023-06-02] MEDS: OMEPRAZOLE 20 MG CAPSULE.DR GT SCH (05:16)
[2023-06-02] MEDS: LORATADINE 10 MG TABLET GT SCH (05:16)
[2023-06-02 08:00] VITALS: TEMP 98.6
[2023-06-02] MEDS: HYDROGEN PEROXIDE 3% 118 ML BOTTLE TP SCH ×2 (08:53→21:20)
[2023-06-02 09:00] VITALS: O2SAT 99
[2023-06-02] MEDS: DOCUSATE SODIUM 100 MG/10 ML LIQUID UDC GT SCH ×2 (09:03→20:14)
[2023-06-02] MEDS: HEPARIN SODIUM,PORCINE 5,000 UNITS/ML VIAL SQ SCH ×2 (09:04→20:15)
[2023-06-02] MEDS: BACLOFEN 10 MG TABLET GT SCH ×3 (09:05→16:22)
[2023-06-02] MEDS: REMEDY ESSENTIAL ZINC PASTE 113 GM TOP SCH ×2 (09:06→20:17)
[2023-06-02] MEDS: [UNRECOGNIZED DRUG - OTHER] TOP SCH ×2 (09:06→20:17)
[2023-06-02] MEDS: ZINC OXIDE OINT 30 GM TUBE TP SCH ×2 (09:06→20:17)
[2023-06-02] MEDS: KETOCONAZOLE 2% SHAMPOO 120 ML BOTTLE TP SCH (09:06)
[2023-06-02] MEDS: [UNRECOGNIZED DRUG - OTHER] GT SCH ×2 (09:06→20:14)
[2023-06-02] MEDS: VITAMINS A AND D 5 GM UD PKT TP SCH (09:06)
[2023-06-02 19:44] VITALS: TEMP 97.7
[2023-06-02] MEDS: OMEGA-3 FATTY ACIDS/FISH OIL CAPSULE GT SCH (20:14)
[2023-06-02 23:10] VITALS: O2SAT 98
[2023-06-03] MEDS: JEVITY 1.2 1000 ML LIQUID GT PRN (01:15)
[2023-06-03] MEDS: LORATADINE 10 MG TABLET GT SCH (05:23)
[2023-06-03] MEDS: CHOLECALCIFEROL 1,000 UNIT TABLET GT SCH (05:23)
[2023-06-03] MEDS: OMEPRAZOLE 20 MG CAPSULE.DR GT SCH (05:23)
[2023-06-03] MEDS: HYDROGEN PEROXIDE 3% 118 ML BOTTLE TP SCH ×2 (08:24→22:28)
[2023-06-03 08:52] VITALS: TEMP 97.8
[2023-06-03] MEDS: DOCUSATE SODIUM 100 MG/10 ML LIQUID UDC GT SCH ×2 (08:52→20:10)
[2023-06-03] MEDS: BACLOFEN 10 MG TABLET GT SCH ×3 (08:52→17:09)
[2023-06-03] MEDS: [UNRECOGNIZED DRUG - OTHER] GT SCH ×2 (08:53→20:10)
[2023-06-03] MEDS: HEPARIN SODIUM,PORCINE 5,000 UNITS/ML VIAL SQ SCH ×2 (08:54→20:13)
[2023-06-03] MEDS: REMEDY ESSENTIAL ZINC PASTE 113 GM TOP SCH ×2 (08:55→20:12)
[2023-06-03] MEDS: [UNRECOGNIZED DRUG - OTHER] TOP SCH ×2 (08:55→20:12)
[2023-06-03] MEDS: ZINC OXIDE OINT 30 GM TUBE TP SCH ×2 (08:55→20:12)
[2023-06-03] MEDS: VITAMINS A AND D 5 GM UD PKT TP SCH (08:55)
[2023-06-03 10:25] VITALS: O2SAT 99
[2023-06-03 19:38] VITALS: TEMP 97.5
[2023-06-03] MEDS: OMEGA-3 FATTY ACIDS/FISH OIL CAPSULE GT SCH (20:10)
[2023-06-04] MEDS: JEVITY 1.2 1000 ML LIQUID GT PRN ×2 (01:00→17:34)
[2023-06-04 03:45] VITALS: O2SAT 98
[2023-06-04] MEDS: LORATADINE 10 MG TABLET GT SCH (05:09)
[2023-06-04] MEDS: CHOLECALCIFEROL 1,000 UNIT TABLET GT SCH (05:10)
[2023-06-04] MEDS: OMEPRAZOLE 20 MG CAPSULE.DR GT SCH (05:10)
[2023-06-04 07:15] VITALS: O2SAT 99
[2023-06-04] MEDS: HYDROGEN PEROXIDE 3% 118 ML BOTTLE TP SCH ×2 (07:15→21:03)
[2023-06-04 07:41] VITALS: TEMP 99
[2023-06-04] MEDS: VITAMINS A AND D 5 GM UD PKT TP SCH (08:28)
[2023-06-04] MEDS: REMEDY ESSENTIAL ZINC PASTE 113 GM TOP SCH ×2 (08:28→20:52)
[2023-06-04] MEDS: [UNRECOGNIZED DRUG - OTHER] GT SCH ×2 (08:28→20:52)
[2023-06-04] MEDS: BACLOFEN 10 MG TABLET GT SCH ×3 (08:28→16:31)
[2023-06-04] MEDS: ZINC OXIDE OINT 30 GM TUBE TP SCH ×2 (08:28→20:52)
[2023-06-04] MEDS: DOCUSATE SODIUM 100 MG/10 ML LIQUID UDC GT SCH ×2 (08:28→20:47)
[2023-06-04] MEDS: [UNRECOGNIZED DRUG - OTHER] TOP SCH ×2 (08:28→20:52)
[2023-06-04] MEDS: HEPARIN SODIUM,PORCINE 5,000 UNITS/ML VIAL SQ SCH ×2 (08:29→21:00)
[2023-06-04 19:50] VITALS: TEMP 98.1
[2023-06-04 20:10] VITALS: O2SAT 99
[2023-06-04] MEDS: OMEGA-3 FATTY ACIDS/FISH OIL CAPSULE GT SCH (20:50)
[2023-06-05] MEDS: LORATADINE 10 MG TABLET GT SCH (06:38)
[2023-06-05] MEDS: CHOLECALCIFEROL 1,000 UNIT TABLET GT SCH (06:39)
[2023-06-05] MEDS: OMEPRAZOLE 20 MG CAPSULE.DR GT SCH (06:40)
[2023-06-05 07:41] VITALS: TEMP 99.1
[2023-06-05] MEDS: HYDROGEN PEROXIDE 3% 118 ML BOTTLE TP SCH ×2 (08:39→19:06)
[2023-06-05] MEDS: BACLOFEN 10 MG TABLET GT SCH ×3 (09:06→16:43)
[2023-06-05] MEDS: [UNRECOGNIZED DRUG - OTHER] GT SCH ×2 (09:06→21:47)
[2023-06-05] MEDS: DOCUSATE SODIUM 100 MG/10 ML LIQUID UDC GT SCH ×2 (09:06→21:47)
[2023-06-05] MEDS: HEPARIN SODIUM,PORCINE 5,000 UNITS/ML VIAL SQ SCH ×2 (09:07→21:00)
[2023-06-05] MEDS: KETOCONAZOLE 2% SHAMPOO 120 ML BOTTLE TP SCH (09:07)
[2023-06-05] MEDS: [UNRECOGNIZED DRUG - OTHER] TOP SCH ×2 (09:07→21:47)
[2023-06-05] MEDS: REMEDY ESSENTIAL ZINC PASTE 113 GM TOP SCH ×2 (09:07→21:47)
[2023-06-05] MEDS: VITAMINS A AND D 5 GM UD PKT TP SCH (09:08)
[2023-06-05] MEDS: ZINC OXIDE OINT 30 GM TUBE TP SCH ×2 (09:08→21:47)
[2023-06-05 12:19] VITALS: O2SAT 95
[2023-06-05] MEDS: JEVITY 1.2 1000 ML LIQUID GT PRN (12:45)
[2023-06-05 20:00] VITALS: TEMP 97.9
[2023-06-05] MEDS: OMEGA-3 FATTY ACIDS/FISH OIL CAPSULE GT SCH (21:47)
[2023-06-06] MEDS: LORATADINE 10 MG TABLET GT SCH (05:24)
[2023-06-06] MEDS: OMEPRAZOLE 20 MG CAPSULE.DR GT SCH (05:24)
[2023-06-06] MEDS: CHOLECALCIFEROL 1,000 UNIT TABLET GT SCH (05:24)
[2023-06-06] MEDS: JEVITY 1.2 1000 ML LIQUID GT PRN ×2 (05:25→23:19)
[2023-06-06 07:32] VITALS: TEMP 98.9
[2023-06-06] MEDS: HYDROGEN PEROXIDE 3% 118 ML BOTTLE TP SCH ×2 (09:00→21:00)
[2023-06-06] MEDS: DOCUSATE SODIUM 100 MG/10 ML LIQUID UDC GT SCH ×2 (09:23→21:31)
[2023-06-06] MEDS: [UNRECOGNIZED DRUG - OTHER] GT SCH ×2 (09:27→21:31)
[2023-06-06] MEDS: BACLOFEN 10 MG TABLET GT SCH ×3 (09:27→17:01)
[2023-06-06] MEDS: [UNRECOGNIZED DRUG - OTHER] TOP SCH ×2 (09:29→21:32)
[2023-06-06] MEDS: REMEDY ESSENTIAL ZINC PASTE 113 GM TOP SCH ×2 (09:29→21:32)
[2023-06-06] MEDS: HEPARIN SODIUM,PORCINE 5,000 UNITS/ML VIAL SQ SCH ×2 (09:29→21:31)
[2023-06-06] MEDS: VITAMINS A AND D 5 GM UD PKT TP SCH (09:29)
[2023-06-06] MEDS: ZINC OXIDE OINT 30 GM TUBE TP SCH ×2 (09:29→21:32)
[2023-06-06 10:20] VITALS: O2SAT 99
[2023-06-06 19:40] VITALS: TEMP 98.2
[2023-06-06 20:05] VITALS: O2SAT 99
[2023-06-06] MEDS: OMEGA-3 FATTY ACIDS/FISH OIL CAPSULE GT SCH (21:31)
[2023-06-07] MEDS: LORATADINE 10 MG TABLET GT SCH (05:24)
[2023-06-07] MEDS: CHOLECALCIFEROL 1,000 UNIT TABLET GT SCH (05:24)
[2023-06-07] MEDS: OMEPRAZOLE 20 MG CAPSULE.DR GT SCH (05:24)
[2023-06-07 07:27] VITALS: TEMP 98.8
[2023-06-07] MEDS: HYDROGEN PEROXIDE 3% 118 ML BOTTLE TP SCH ×2 (08:45→21:00)
[2023-06-07] MEDS: VITAMINS A AND D 5 GM UD PKT TP SCH (09:06)
[2023-06-07] MEDS: [UNRECOGNIZED DRUG - OTHER] TOP SCH ×2 (09:06→20:22)
[2023-06-07] MEDS: ZINC OXIDE OINT 30 GM TUBE TP SCH ×2 (09:06→20:22)
[2023-06-07] MEDS: DOCUSATE SODIUM 100 MG/10 ML LIQUID UDC GT SCH ×2 (09:06→20:21)
[2023-06-07] MEDS: REMEDY ESSENTIAL ZINC PASTE 113 GM TOP SCH ×2 (09:06→20:22)
[2023-06-07] MEDS: BACLOFEN 10 MG TABLET GT SCH ×3 (09:06→17:59)
[2023-06-07] MEDS: HEPARIN SODIUM,PORCINE 5,000 UNITS/ML VIAL SQ SCH ×2 (09:06→20:22)
[2023-06-07] MEDS: [UNRECOGNIZED DRUG - OTHER] GT SCH ×2 (09:06→20:21)
[2023-06-07 09:10] VITALS: O2SAT 99
[2023-06-07] MEDS: JEVITY 1.2 1000 ML LIQUID GT PRN (17:59)
[2023-06-07 19:50] VITALS: TEMP 99.8
[2023-06-07] MEDS: OMEGA-3 FATTY ACIDS/FISH OIL CAPSULE GT SCH (20:21)
[2023-06-07 20:25] VITALS: O2SAT 99
[2023-06-08 00:49] VITALS: TEMP 98.3
[2023-06-08] MEDS: LORATADINE 10 MG TABLET GT SCH (05:13)
[2023-06-08] MEDS: OMEPRAZOLE 20 MG CAPSULE.DR GT SCH (05:13)
[2023-06-08] MEDS: CHOLECALCIFEROL 1,000 UNIT TABLET GT SCH (05:13)
[2023-06-08 07:28] VITALS: TEMP 98.7
[2023-06-08] MEDS: DOCUSATE SODIUM 100 MG/10 ML LIQUID UDC GT SCH ×2 (08:39→20:36)
[2023-06-08] MEDS: BACLOFEN 10 MG TABLET GT SCH ×3 (08:41→16:23)
[2023-06-08] MEDS: [UNRECOGNIZED DRUG - OTHER] GT SCH ×2 (08:41→20:36)
[2023-06-08] MEDS: HEPARIN SODIUM,PORCINE 5,000 UNITS/ML VIAL SQ SCH ×2 (08:42→20:36)
[2023-06-08] MEDS: [UNRECOGNIZED DRUG - OTHER] TOP SCH ×2 (08:42→20:37)
[2023-06-08] MEDS: ZINC OXIDE OINT 30 GM TUBE TP SCH ×2 (08:42→20:37)
[2023-06-08] MEDS: REMEDY ESSENTIAL ZINC PASTE 113 GM TOP SCH ×2 (08:42→20:37)
[2023-06-08] MEDS: VITAMINS A AND D 5 GM UD PKT TP SCH (08:42)
[2023-06-08] MEDS: ACETAMINOPHEN 650 MG/20 ML UDC- SA PATIENTS-PAIN ONLY GT PRN (08:43)
[2023-06-08] MEDS: HYDROGEN PEROXIDE 3% 118 ML BOTTLE TP SCH ×2 (09:08→20:42)
[2023-06-08 10:40] VITALS: O2SAT 99
[2023-06-08] MEDS: JEVITY 1.2 1000 ML LIQUID GT PRN (11:29)
[2023-06-08 19:56] VITALS: TEMP 98.9
[2023-06-08] MEDS: OMEGA-3 FATTY ACIDS/FISH OIL CAPSULE GT SCH (20:36)
[2023-06-08 20:43] VITALS: O2SAT 99
[2023-06-09] MEDS: JEVITY 1.2 1000 ML LIQUID GT PRN (04:06)
[2023-06-09] MEDS: CHOLECALCIFEROL 1,000 UNIT TABLET GT SCH (05:36)
[2023-06-09] MEDS: LORATADINE 10 MG TABLET GT SCH (05:36)
[2023-06-09] MEDS: OMEPRAZOLE 20 MG CAPSULE.DR GT SCH (05:36)
[2023-06-09 07:23] VITALS: TEMP 98.8
[2023-06-09] MEDS: HYDROGEN PEROXIDE 3% 118 ML BOTTLE TP SCH ×2 (09:00→21:00)
[2023-06-09] MEDS: BACLOFEN 10 MG TABLET GT SCH ×3 (09:06→16:17)
[2023-06-09] MEDS: [UNRECOGNIZED DRUG - OTHER] GT SCH ×2 (09:06→20:10)
[2023-06-09] MEDS: REMEDY ESSENTIAL ZINC PASTE 113 GM TOP SCH ×2 (09:06→20:11)
[2023-06-09] MEDS: KETOCONAZOLE 2% SHAMPOO 120 ML BOTTLE TP SCH (09:06)
[2023-06-09] MEDS: VITAMINS A AND D 5 GM UD PKT TP SCH (09:06)
[2023-06-09] MEDS: DOCUSATE SODIUM 100 MG/10 ML LIQUID UDC GT SCH ×2 (09:06→20:10)
[2023-06-09] MEDS: [UNRECOGNIZED DRUG - OTHER] TOP SCH ×2 (09:06→20:11)
[2023-06-09] MEDS: ZINC OXIDE OINT 30 GM TUBE TP SCH ×2 (09:07→20:11)
[2023-06-09] MEDS: HEPARIN SODIUM,PORCINE 5,000 UNITS/ML VIAL SQ SCH ×2 (09:09→20:11)
[2023-06-09 10:51] VITALS: O2SAT 99
[2023-06-09 19:59] VITALS: TEMP 98.7
[2023-06-09 20:05] VITALS: O2SAT 99
[2023-06-09] MEDS: OMEGA-3 FATTY ACIDS/FISH OIL CAPSULE GT SCH (20:10)
[2023-06-10] MEDS: JEVITY 1.2 1000 ML LIQUID GT PRN (03:30)
[2023-06-10] MEDS: LORATADINE 10 MG TABLET GT SCH (05:52)
[2023-06-10] MEDS: CHOLECALCIFEROL 1,000 UNIT TABLET GT SCH (05:52)
[2023-06-10] MEDS: OMEPRAZOLE 20 MG CAPSULE.DR GT SCH (05:52)
[2023-06-10 08:01] VITALS: TEMP 98
[2023-06-10] MEDS: DOCUSATE SODIUM 100 MG/10 ML LIQUID UDC GT SCH ×2 (08:38→20:11)
[2023-06-10] MEDS: BACLOFEN 10 MG TABLET GT SCH ×3 (08:39→16:26)
[2023-06-10] MEDS: [UNRECOGNIZED DRUG - OTHER] GT SCH ×2 (08:40→20:11)
[2023-06-10] MEDS: VITAMINS A AND D 5 GM UD PKT TP SCH (08:42)
[2023-06-10] MEDS: HEPARIN SODIUM,PORCINE 5,000 UNITS/ML VIAL SQ SCH ×2 (08:42→20:11)
[2023-06-10] MEDS: REMEDY ESSENTIAL ZINC PASTE 113 GM TOP SCH ×2 (08:42→20:12)
[2023-06-10] MEDS: ZINC OXIDE OINT 30 GM TUBE TP SCH ×2 (08:42→20:12)
[2023-06-10] MEDS: [UNRECOGNIZED DRUG - OTHER] TOP SCH ×2 (08:42→20:12)
[2023-06-10] MEDS: HYDROGEN PEROXIDE 3% 118 ML BOTTLE TP SCH ×2 (09:00→20:57)
[2023-06-10 14:53] VITALS: O2SAT 95
[2023-06-10 20:00] VITALS: TEMP 98.4
[2023-06-10 20:05] VITALS: O2SAT 98
[2023-06-10] MEDS: OMEGA-3 FATTY ACIDS/FISH OIL CAPSULE GT SCH (20:11)
[2023-06-11] MEDS: JEVITY 1.2 1000 ML LIQUID GT PRN ×2 (01:05→16:20)
[2023-06-11] MEDS: LORATADINE 10 MG TABLET GT SCH (05:32)
[2023-06-11] MEDS: CHOLECALCIFEROL 1,000 UNIT TABLET GT SCH (05:32)
[2023-06-11] MEDS: OMEPRAZOLE 20 MG CAPSULE.DR GT SCH (05:32)
[2023-06-11 07:15] VITALS: O2SAT 95
[2023-06-11] MEDS: HYDROGEN PEROXIDE 3% 118 ML BOTTLE TP SCH ×2 (07:15→19:12)
[2023-06-11 07:52] VITALS: TEMP 98.1
[2023-06-11] MEDS: [UNRECOGNIZED DRUG - OTHER] GT SCH ×2 (08:27→21:00)
[2023-06-11] MEDS: DOCUSATE SODIUM 100 MG/10 ML LIQUID UDC GT SCH ×2 (08:27→21:00)
[2023-06-11] MEDS: BACLOFEN 10 MG TABLET GT SCH ×3 (08:27→16:49)
[2023-06-11] MEDS: VITAMINS A AND D 5 GM UD PKT TP SCH (08:29)
[2023-06-11] MEDS: REMEDY ESSENTIAL ZINC PASTE 113 GM TOP SCH ×2 (08:29→21:00)
[2023-06-11] MEDS: ZINC OXIDE OINT 30 GM TUBE TP SCH ×2 (08:29→21:00)
[2023-06-11] MEDS: HEPARIN SODIUM,PORCINE 5,000 UNITS/ML VIAL SQ SCH ×2 (08:29→21:00)
[2023-06-11] MEDS: [UNRECOGNIZED DRUG - OTHER] TOP SCH ×2 (08:29→21:00)
[2023-06-11 19:35] VITALS: O2SAT 98
[2023-06-11 20:00] VITALS: TEMP 98.8
[2023-06-11] MEDS: OMEGA-3 FATTY ACIDS/FISH OIL CAPSULE GT SCH (21:00)
[2023-06-12] MEDS: LORATADINE 10 MG TABLET GT SCH (05:52)
[2023-06-12] MEDS: CHOLECALCIFEROL 1,000 UNIT TABLET GT SCH (05:52)
[2023-06-12] MEDS: OMEPRAZOLE 20 MG CAPSULE.DR GT SCH (05:52)
[2023-06-12 07:00] VITALS: O2SAT 98
[2023-06-12] MEDS: JEVITY 1.2 1000 ML LIQUID GT PRN (08:00)
[2023-06-12 08:11] VITALS: TEMP 97.4
[2023-06-12] MEDS: HYDROGEN PEROXIDE 3% 118 ML BOTTLE TP SCH ×2 (09:02→20:35)
[2023-06-12] MEDS: BACLOFEN 10 MG TABLET GT SCH ×3 (09:03→17:28)
[2023-06-12] MEDS: VITAMINS A AND D 5 GM UD PKT TP SCH (09:03)
[2023-06-12] MEDS: KETOCONAZOLE 2% SHAMPOO 120 ML BOTTLE TP SCH (09:03)
[2023-06-12] MEDS: [UNRECOGNIZED DRUG - OTHER] GT SCH ×2 (09:03→20:16)
[2023-06-12] MEDS: REMEDY ESSENTIAL ZINC PASTE 113 GM TOP SCH ×2 (09:03→20:16)
[2023-06-12] MEDS: DOCUSATE SODIUM 100 MG/10 ML LIQUID UDC GT SCH ×2 (09:03→20:16)
[2023-06-12] MEDS: HEPARIN SODIUM,PORCINE 5,000 UNITS/ML VIAL SQ SCH ×2 (09:03→21:00)
[2023-06-12] MEDS: [UNRECOGNIZED DRUG - OTHER] TOP SCH ×2 (09:03→20:16)
[2023-06-12] MEDS: ZINC OXIDE OINT 30 GM TUBE TP SCH ×2 (09:04→20:16)
[2023-06-12 20:00] VITALS: TEMP 98.6
[2023-06-12] MEDS: OMEGA-3 FATTY ACIDS/FISH OIL CAPSULE GT SCH (20:16)
[2023-06-12 20:50] VITALS: O2SAT 98
[2023-06-13] MEDS: CHOLECALCIFEROL 1,000 UNIT TABLET GT SCH (06:11)
[2023-06-13] MEDS: OMEPRAZOLE 20 MG CAPSULE.DR GT SCH (06:11)
[2023-06-13] MEDS: LORATADINE 10 MG TABLET GT SCH (06:11)
[2023-06-13 07:45] VITALS: TEMP 98.3
[2023-06-13] MEDS: [UNRECOGNIZED DRUG - OTHER] GT SCH ×2 (08:59→20:10)
[2023-06-13] MEDS: DOCUSATE SODIUM 100 MG/10 ML LIQUID UDC GT SCH ×2 (08:59→20:10)
[2023-06-13] MEDS: BACLOFEN 10 MG TABLET GT SCH ×3 (08:59→17:23)
[2023-06-13] MEDS: HEPARIN SODIUM,PORCINE 5,000 UNITS/ML VIAL SQ SCH ×2 (09:00→20:11)
[2023-06-13] MEDS: ZINC OXIDE OINT 30 GM TUBE TP SCH ×2 (09:00→20:11)
[2023-06-13] MEDS: REMEDY ESSENTIAL ZINC PASTE 113 GM TOP SCH ×2 (09:00→20:11)
[2023-06-13] MEDS: [UNRECOGNIZED DRUG - OTHER] TOP SCH ×2 (09:00→20:11)
[2023-06-13] MEDS: VITAMINS A AND D 5 GM UD PKT TP SCH (09:00)
[2023-06-13] MEDS: HYDROGEN PEROXIDE 3% 118 ML BOTTLE TP SCH ×2 (09:15→21:00)
[2023-06-13] MEDS: JEVITY 1.2 1000 ML LIQUID GT PRN (17:29)
[2023-06-13 19:43] VITALS: TEMP 98.1
[2023-06-13] MEDS: OMEGA-3 FATTY ACIDS/FISH OIL CAPSULE GT SCH (20:10)
[2023-06-13 20:33] VITALS: O2SAT 98
[2023-06-14] MEDS: CHOLECALCIFEROL 1,000 UNIT TABLET GT SCH (05:36)
[2023-06-14] MEDS: LORATADINE 10 MG TABLET GT SCH (05:36)
[2023-06-14] MEDS: OMEPRAZOLE 20 MG CAPSULE.DR GT SCH (05:36)
[2023-06-14 07:21] VITALS: TEMP 98.4
[2023-06-14 08:30] VITALS: O2SAT 95
[2023-06-14] MEDS: ZINC OXIDE OINT 30 GM TUBE TP SCH ×2 (08:32→20:19)
[2023-06-14] MEDS: DOCUSATE SODIUM 100 MG/10 ML LIQUID UDC GT SCH ×2 (08:32→20:17)
[2023-06-14] MEDS: VITAMINS A AND D 5 GM UD PKT TP SCH (08:32)
[2023-06-14] MEDS: [UNRECOGNIZED DRUG - OTHER] GT SCH ×2 (08:32→20:18)
[2023-06-14] MEDS: BACLOFEN 10 MG TABLET GT SCH ×3 (08:32→17:11)
[2023-06-14] MEDS: REMEDY ESSENTIAL ZINC PASTE 113 GM TOP SCH ×2 (08:32→20:19)
[2023-06-14] MEDS: [UNRECOGNIZED DRUG - OTHER] TOP SCH ×2 (08:32→20:19)
[2023-06-14] MEDS: HEPARIN SODIUM,PORCINE 5,000 UNITS/ML VIAL SQ SCH ×2 (08:32→20:18)
[2023-06-14] MEDS: HYDROGEN PEROXIDE 3% 118 ML BOTTLE TP SCH ×2 (09:06→21:25)
[2023-06-14 19:47] VITALS: TEMP 97.8
[2023-06-14] MEDS: OMEGA-3 FATTY ACIDS/FISH OIL CAPSULE GT SCH (20:18)
[2023-06-15 01:10] VITALS: O2SAT 96
[2023-06-15] MEDS: LORATADINE 10 MG TABLET GT SCH (05:01)
[2023-06-15] MEDS: CHOLECALCIFEROL 1,000 UNIT TABLET GT SCH (05:01)
[2023-06-15] MEDS: OMEPRAZOLE 20 MG CAPSULE.DR GT SCH (05:01)
[2023-06-15 07:28] VITALS: TEMP 97.7
[2023-06-15] MEDS: VITAMINS A AND D 5 GM UD PKT TP SCH (08:38)
[2023-06-15] MEDS: [UNRECOGNIZED DRUG - OTHER] GT SCH ×2 (08:38→20:17)
[2023-06-15] MEDS: [UNRECOGNIZED DRUG - OTHER] TOP SCH ×2 (08:38→20:17)
[2023-06-15] MEDS: REMEDY ESSENTIAL ZINC PASTE 113 GM TOP SCH ×2 (08:38→20:17)
[2023-06-15] MEDS: DOCUSATE SODIUM 100 MG/10 ML LIQUID UDC GT SCH ×2 (08:38→20:17)
[2023-06-15] MEDS: ZINC OXIDE OINT 30 GM TUBE TP SCH ×2 (08:38→20:17)
[2023-06-15] MEDS: BACLOFEN 10 MG TABLET GT SCH ×3 (08:38→16:05)
[2023-06-15 09:10] VITALS: O2SAT 95
[2023-06-15] MEDS: HYDROGEN PEROXIDE 3% 118 ML BOTTLE TP SCH ×2 (09:10→20:17)
[2023-06-15] MEDS: HEPARIN SODIUM,PORCINE 5,000 UNITS/ML VIAL SQ SCH ×2 (09:21→21:00)
[2023-06-15 19:45] VITALS: TEMP 98
[2023-06-15] MEDS: OMEGA-3 FATTY ACIDS/FISH OIL CAPSULE GT SCH (20:17)
[2023-06-15 20:35] VITALS: O2SAT 99
[2023-06-16] MEDS: OMEPRAZOLE 20 MG CAPSULE.DR GT SCH (05:17)
[2023-06-16] MEDS: LORATADINE 10 MG TABLET GT SCH (05:17)
[2023-06-16] MEDS: CHOLECALCIFEROL 1,000 UNIT TABLET GT SCH (05:18)
[2023-06-16 08:00] VITALS: TEMP 99.2
[2023-06-16 08:30] VITALS: O2SAT 99
[2023-06-16] MEDS: BACLOFEN 10 MG TABLET GT SCH ×3 (09:09→17:00)
[2023-06-16] MEDS: [UNRECOGNIZED DRUG - OTHER] TOP SCH ×2 (09:09→20:14)
[2023-06-16] MEDS: DOCUSATE SODIUM 100 MG/10 ML LIQUID UDC GT SCH ×2 (09:09→20:12)
[2023-06-16] MEDS: HEPARIN SODIUM,PORCINE 5,000 UNITS/ML VIAL SQ SCH ×2 (09:09→21:00)
[2023-06-16] MEDS: [UNRECOGNIZED DRUG - OTHER] GT SCH ×2 (09:10→20:12)
[2023-06-16] MEDS: VITAMINS A AND D 5 GM UD PKT TP SCH (09:16)
[2023-06-16] MEDS: REMEDY ESSENTIAL ZINC PASTE 113 GM TOP SCH ×2 (09:16→20:14)
[2023-06-16] MEDS: ZINC OXIDE OINT 30 GM TUBE TP SCH ×2 (09:16→20:14)
[2023-06-16] MEDS: KETOCONAZOLE 2% SHAMPOO 120 ML BOTTLE TP SCH (09:16)
[2023-06-16] MEDS: HYDROGEN PEROXIDE 3% 118 ML BOTTLE TP SCH ×2 (09:46→20:56)
[2023-06-16] MEDS: JEVITY 1.2 1000 ML LIQUID GT PRN (18:28)
[2023-06-16 19:47] VITALS: TEMP 97.9
[2023-06-16] MEDS: OMEGA-3 FATTY ACIDS/FISH OIL CAPSULE GT SCH (20:12)
[2023-06-16 20:57] VITALS: O2SAT 99
[2023-06-17] MEDS: CHOLECALCIFEROL 1,000 UNIT TABLET GT SCH (06:17)
[2023-06-17] MEDS: OMEPRAZOLE 20 MG CAPSULE.DR GT SCH (06:17)
[2023-06-17] MEDS: LORATADINE 10 MG TABLET GT SCH (06:17)
[2023-06-17] MEDS: HYDROGEN PEROXIDE 3% 118 ML BOTTLE TP SCH ×2 (07:28→21:11)
[2023-06-17 08:00] VITALS: TEMP 98.2
[2023-06-17] MEDS: [UNRECOGNIZED DRUG - OTHER] GT SCH ×2 (08:37→21:00)
[2023-06-17] MEDS: DOCUSATE SODIUM 100 MG/10 ML LIQUID UDC GT SCH ×2 (08:37→21:00)
[2023-06-17] MEDS: BACLOFEN 10 MG TABLET GT SCH ×3 (08:37→16:51)
[2023-06-17] MEDS: VITAMINS A AND D 5 GM UD PKT TP SCH (08:40)
[2023-06-17] MEDS: HEPARIN SODIUM,PORCINE 5,000 UNITS/ML VIAL SQ SCH ×2 (08:40→21:01)
[2023-06-17] MEDS: REMEDY ESSENTIAL ZINC PASTE 113 GM TOP SCH ×2 (08:40→21:01)
[2023-06-17] MEDS: [UNRECOGNIZED DRUG - OTHER] TOP SCH ×2 (08:40→21:01)
[2023-06-17] MEDS: ZINC OXIDE OINT 30 GM TUBE TP SCH ×2 (08:40→21:01)
[2023-06-17 10:35] VITALS: O2SAT 98
[2023-06-17] MEDS: JEVITY 1.2 1000 ML LIQUID GT PRN (16:51)
[2023-06-17 20:00] VITALS: O2SAT 98
[2023-06-17 20:06] VITALS: TEMP 97.9
[2023-06-17] MEDS: OMEGA-3 FATTY ACIDS/FISH OIL CAPSULE GT SCH (21:00)
[2023-06-18] MEDS: CHOLECALCIFEROL 1,000 UNIT TABLET GT SCH (05:08)
[2023-06-18] MEDS: LORATADINE 10 MG TABLET GT SCH (05:08)
[2023-06-18] MEDS: OMEPRAZOLE 20 MG CAPSULE.DR GT SCH (05:08)
[2023-06-18 07:15] VITALS: TEMP 98.4; O2SAT 99
[2023-06-18] MEDS: HYDROGEN PEROXIDE 3% 118 ML BOTTLE TP SCH ×2 (08:51→21:00)
[2023-06-18] MEDS: VITAMINS A AND D 5 GM UD PKT TP SCH (09:18)
[2023-06-18] MEDS: [UNRECOGNIZED DRUG - OTHER] GT SCH ×2 (09:18→20:36)
[2023-06-18] MEDS: BACLOFEN 10 MG TABLET GT SCH ×3 (09:18→17:41)
[2023-06-18] MEDS: DOCUSATE SODIUM 100 MG/10 ML LIQUID UDC GT SCH ×2 (09:18→20:36)
[2023-06-18] MEDS: REMEDY ESSENTIAL ZINC PASTE 113 GM TOP SCH ×2 (09:18→20:36)
[2023-06-18] MEDS: HEPARIN SODIUM,PORCINE 5,000 UNITS/ML VIAL SQ SCH ×2 (09:18→21:00)
[2023-06-18] MEDS: [UNRECOGNIZED DRUG - OTHER] TOP SCH ×2 (09:18→20:36)
[2023-06-18] MEDS: ZINC OXIDE OINT 30 GM TUBE TP SCH ×2 (09:19→20:36)
[2023-06-18] MEDS: JEVITY 1.2 1000 ML LIQUID GT PRN (11:56)
[2023-06-18 20:00] VITALS: TEMP 98.7
[2023-06-18] MEDS: OMEGA-3 FATTY ACIDS/FISH OIL CAPSULE GT SCH (20:36)
[2023-06-18 21:00] VITALS: O2SAT 98
[2023-06-19] MEDS: LORATADINE 10 MG TABLET GT SCH (05:39)
[2023-06-19] MEDS: OMEPRAZOLE 20 MG CAPSULE.DR GT SCH (05:39)
[2023-06-19] MEDS: CHOLECALCIFEROL 1,000 UNIT TABLET GT SCH (05:39)
[2023-06-19 07:34] VITALS: TEMP 97.5
[2023-06-19] MEDS: BACLOFEN 10 MG TABLET GT SCH ×3 (08:34→17:29)
[2023-06-19] MEDS: DOCUSATE SODIUM 100 MG/10 ML LIQUID UDC GT SCH ×2 (08:34→20:37)
[2023-06-19] MEDS: KETOCONAZOLE 2% SHAMPOO 120 ML BOTTLE TP SCH (08:35)
[2023-06-19] MEDS: [UNRECOGNIZED DRUG - OTHER] TOP SCH ×2 (08:35→20:37)
[2023-06-19] MEDS: REMEDY ESSENTIAL ZINC PASTE 113 GM TOP SCH ×2 (08:35→20:37)
[2023-06-19] MEDS: [UNRECOGNIZED DRUG - OTHER] GT SCH ×2 (08:35→20:37)
[2023-06-19] MEDS: ZINC OXIDE OINT 30 GM TUBE TP SCH ×2 (08:36→20:38)
[2023-06-19] MEDS: VITAMINS A AND D 5 GM UD PKT TP SCH (08:36)
[2023-06-19] MEDS: HEPARIN SODIUM,PORCINE 5,000 UNITS/ML VIAL SQ SCH ×2 (08:40→21:00)
[2023-06-19] MEDS: HYDROGEN PEROXIDE 3% 118 ML BOTTLE TP SCH ×2 (09:00→21:11)
[2023-06-19 17:12] VITALS: O2SAT 95
[2023-06-19 19:45] VITALS: TEMP 97.9
[2023-06-19 20:05] VITALS: O2SAT 99
[2023-06-19] MEDS: OMEGA-3 FATTY ACIDS/FISH OIL CAPSULE GT SCH (20:37)
[2023-06-20] MEDS: LORATADINE 10 MG TABLET GT SCH (05:26)
[2023-06-20] MEDS: CHOLECALCIFEROL 1,000 UNIT TABLET GT SCH (05:26)
[2023-06-20] MEDS: OMEPRAZOLE 20 MG CAPSULE.DR GT SCH (05:26)
[2023-06-20] MEDS: BACLOFEN 10 MG TABLET GT SCH ×3 (08:35→16:50)
[2023-06-20] MEDS: [UNRECOGNIZED DRUG - OTHER] GT SCH ×2 (08:35→20:35)
[2023-06-20] MEDS: DOCUSATE SODIUM 100 MG/10 ML LIQUID UDC GT SCH ×2 (08:35→20:35)
[2023-06-20] MEDS: HEPARIN SODIUM,PORCINE 5,000 UNITS/ML VIAL SQ SCH ×2 (08:36→20:35)
[2023-06-20] MEDS: [UNRECOGNIZED DRUG - OTHER] TOP SCH ×2 (08:36→20:35)
[2023-06-20] MEDS: ZINC OXIDE OINT 30 GM TUBE TP SCH ×2 (08:37→20:36)
[2023-06-20] MEDS: REMEDY ESSENTIAL ZINC PASTE 113 GM TOP SCH ×2 (08:37→20:35)
[2023-06-20] MEDS: VITAMINS A AND D 5 GM UD PKT TP SCH (08:37)
[2023-06-20 08:40] VITALS: O2SAT 99
[2023-06-20] MEDS: HYDROGEN PEROXIDE 3% 118 ML BOTTLE TP SCH ×2 (09:00→21:00)
[2023-06-20] MEDS: JEVITY 1.2 1000 ML LIQUID GT PRN (11:34)
[2023-06-20 11:45] VITALS: TEMP 97.6
[2023-06-20 19:53] VITALS: TEMP 97.2
[2023-06-20 20:10] VITALS: O2SAT 99
[2023-06-20] MEDS: OMEGA-3 FATTY ACIDS/FISH OIL CAPSULE GT SCH (20:35)
[2023-06-21] MEDS: JEVITY 1.2 1000 ML LIQUID GT PRN (03:52)
[2023-06-21] MEDS: LORATADINE 10 MG TABLET GT SCH (05:21)
[2023-06-21] MEDS: OMEPRAZOLE 20 MG CAPSULE.DR GT SCH (05:21)
[2023-06-21] MEDS: CHOLECALCIFEROL 1,000 UNIT TABLET GT SCH (05:21)
[2023-06-21] MEDS: HYDROGEN PEROXIDE 3% 118 ML BOTTLE TP SCH ×2 (07:11→19:13)
[2023-06-21 07:28] VITALS: TEMP 98.6
[2023-06-21] MEDS: [UNRECOGNIZED DRUG - OTHER] GT SCH ×2 (08:39→20:05)
[2023-06-21] MEDS: BACLOFEN 10 MG TABLET GT SCH ×3 (08:39→17:48)
[2023-06-21] MEDS: DOCUSATE SODIUM 100 MG/10 ML LIQUID UDC GT SCH ×2 (08:39→20:04)
[2023-06-21] MEDS: [UNRECOGNIZED DRUG - OTHER] TOP SCH ×2 (08:51→20:08)
[2023-06-21] MEDS: HEPARIN SODIUM,PORCINE 5,000 UNITS/ML VIAL SQ SCH ×2 (08:51→20:06)
[2023-06-21] MEDS: REMEDY ESSENTIAL ZINC PASTE 113 GM TOP SCH ×2 (08:51→20:08)
[2023-06-21] MEDS: VITAMINS A AND D 5 GM UD PKT TP SCH (08:51)
[2023-06-21] MEDS: ZINC OXIDE OINT 30 GM TUBE TP SCH ×2 (08:51→20:08)
[2023-06-21 10:06] VITALS: O2SAT 99
[2023-06-21] MEDS: OMEGA-3 FATTY ACIDS/FISH OIL CAPSULE GT SCH (20:04)
[2023-06-21 20:07] VITALS: TEMP 98.6
[2023-06-22 02:38] VITALS: O2SAT 96
[2023-06-22] MEDS: JEVITY 1.2 1000 ML LIQUID GT PRN (03:00)
[2023-06-22] MEDS: LORATADINE 10 MG TABLET GT SCH (06:15)
[2023-06-22] MEDS: OMEPRAZOLE 20 MG CAPSULE.DR GT SCH (06:15)
[2023-06-22] MEDS: CHOLECALCIFEROL 1,000 UNIT TABLET GT SCH (06:15)
[2023-06-22 07:20] VITALS: O2SAT 99
[2023-06-22 07:27] VITALS: TEMP 98.1
[2023-06-22] MEDS: DOCUSATE SODIUM 100 MG/10 ML LIQUID UDC GT SCH ×2 (08:17→20:07)
[2023-06-22] MEDS: BACLOFEN 10 MG TABLET GT SCH ×3 (08:17→16:20)
[2023-06-22] MEDS: [UNRECOGNIZED DRUG - OTHER] GT SCH ×2 (08:18→20:07)
[2023-06-22] MEDS: HEPARIN SODIUM,PORCINE 5,000 UNITS/ML VIAL SQ SCH ×2 (08:21→20:08)
[2023-06-22] MEDS: [UNRECOGNIZED DRUG - OTHER] TOP SCH ×2 (08:21→20:11)
[2023-06-22] MEDS: REMEDY ESSENTIAL ZINC PASTE 113 GM TOP SCH ×2 (08:21→20:11)
[2023-06-22] MEDS: ZINC OXIDE OINT 30 GM TUBE TP SCH ×2 (08:21→20:11)
[2023-06-22] MEDS: VITAMINS A AND D 5 GM UD PKT TP SCH (08:21)
[2023-06-22] MEDS: HYDROGEN PEROXIDE 3% 118 ML BOTTLE TP SCH ×2 (09:43→20:50)
[2023-06-22 20:00] VITALS: TEMP 99.4
[2023-06-22] MEDS: OMEGA-3 FATTY ACIDS/FISH OIL CAPSULE GT SCH (20:07)
[2023-06-22] MEDS: ACETAMINOPHEN 650 MG/20 ML UDC- SA PATIENTS-PAIN ONLY GT PRN (20:12)
[2023-06-22 20:40] VITALS: O2SAT 96
[2023-06-23] MEDS: JEVITY 1.2 1000 ML LIQUID GT PRN (02:37)
[2023-06-23] MEDS: LORATADINE 10 MG TABLET GT SCH (05:39)
[2023-06-23] MEDS: CHOLECALCIFEROL 1,000 UNIT TABLET GT SCH (05:39)
[2023-06-23] MEDS: OMEPRAZOLE 20 MG CAPSULE.DR GT SCH (05:39)
[2023-06-23 07:24] VITALS: TEMP 98.5
[2023-06-23] MEDS: DOCUSATE SODIUM 100 MG/10 ML LIQUID UDC GT SCH ×2 (08:26→20:03)
[2023-06-23] MEDS: BACLOFEN 10 MG TABLET GT SCH ×3 (08:26→17:13)
[2023-06-23] MEDS: REMEDY ESSENTIAL ZINC PASTE 113 GM TOP SCH ×2 (08:27→20:03)
[2023-06-23] MEDS: [UNRECOGNIZED DRUG - OTHER] GT SCH ×2 (08:27→20:03)
[2023-06-23] MEDS: [UNRECOGNIZED DRUG - OTHER] TOP SCH ×2 (08:28→20:03)
[2023-06-23] MEDS: HYDROGEN PEROXIDE 3% 118 ML BOTTLE TP SCH ×2 (08:28→20:59)
[2023-06-23] MEDS: ZINC OXIDE OINT 30 GM TUBE TP SCH ×2 (08:28→20:04)
[2023-06-23] MEDS: VITAMINS A AND D 5 GM UD PKT TP SCH (08:28)
[2023-06-23] MEDS: KETOCONAZOLE 2% SHAMPOO 120 ML BOTTLE TP SCH (08:28)
[2023-06-23] MEDS: HEPARIN SODIUM,PORCINE 5,000 UNITS/ML VIAL SQ SCH ×2 (08:31→20:03)
[2023-06-23 08:40] VITALS: O2SAT 99
[2023-06-23 19:45] VITALS: TEMP 97.4
[2023-06-23] MEDS: OMEGA-3 FATTY ACIDS/FISH OIL CAPSULE GT SCH (20:03)
[2023-06-23] MEDS: NEOMY/BACITRA/POLYMYXIN B OINT UD PACKET TP SCH (20:04)
[2023-06-23 20:10] VITALS: O2SAT 99
[2023-06-24] MEDS: JEVITY 1.2 1000 ML LIQUID GT PRN (00:37)
[2023-06-24] MEDS: CHOLECALCIFEROL 1,000 UNIT TABLET GT SCH (05:40)
[2023-06-24] MEDS: OMEPRAZOLE 20 MG CAPSULE.DR GT SCH (05:40)
[2023-06-24] MEDS: LORATADINE 10 MG TABLET GT SCH (05:40)
[2023-06-24 08:03] VITALS: TEMP 98.9
[2023-06-24] MEDS: BACLOFEN 10 MG TABLET GT SCH ×3 (08:31→17:00)
[2023-06-24] MEDS: DOCUSATE SODIUM 100 MG/10 ML LIQUID UDC GT SCH ×2 (08:31→20:11)
[2023-06-24] MEDS: [UNRECOGNIZED DRUG - OTHER] GT SCH ×2 (08:31→20:11)
[2023-06-24] MEDS: REMEDY ESSENTIAL ZINC PASTE 113 GM TOP SCH ×2 (08:33→20:11)
[2023-06-24] MEDS: [UNRECOGNIZED DRUG - OTHER] TOP SCH ×2 (08:33→20:11)
[2023-06-24] MEDS: HEPARIN SODIUM,PORCINE 5,000 UNITS/ML VIAL SQ SCH ×2 (08:33→20:11)
[2023-06-24] MEDS: ZINC OXIDE OINT 30 GM TUBE TP SCH ×2 (08:34→20:11)
[2023-06-24] MEDS: NEOMY/BACITRA/POLYMYXIN B OINT UD PACKET TP SCH ×2 (08:34→20:11)
[2023-06-24] MEDS: VITAMINS A AND D 5 GM UD PKT TP SCH (08:34)
[2023-06-24] MEDS: HYDROGEN PEROXIDE 3% 118 ML BOTTLE TP SCH ×2 (08:49→21:07)
[2023-06-24 15:06] VITALS: O2SAT 95
[2023-06-24 20:00] VITALS: TEMP 98.6
[2023-06-24] MEDS: OMEGA-3 FATTY ACIDS/FISH OIL CAPSULE GT SCH (20:11)
[2023-06-24 21:07] VITALS: O2SAT 99
[2023-06-25] MEDS: OMEPRAZOLE 20 MG CAPSULE.DR GT SCH (05:57)
[2023-06-25] MEDS: LORATADINE 10 MG TABLET GT SCH (05:57)
[2023-06-25] MEDS: CHOLECALCIFEROL 1,000 UNIT TABLET GT SCH (05:57)
[2023-06-25 07:20] VITALS: O2SAT 95
[2023-06-25 07:49] VITALS: TEMP 97.6
[2023-06-25] MEDS: BACLOFEN 10 MG TABLET GT SCH ×3 (08:40→17:38)
[2023-06-25] MEDS: [UNRECOGNIZED DRUG - OTHER] GT SCH ×2 (08:40→20:10)
[2023-06-25] MEDS: DOCUSATE SODIUM 100 MG/10 ML LIQUID UDC GT SCH ×2 (08:40→20:10)
[2023-06-25] MEDS: HYDROGEN PEROXIDE 3% 118 ML BOTTLE TP SCH ×2 (08:45→21:31)
[2023-06-25] MEDS: HEPARIN SODIUM,PORCINE 5,000 UNITS/ML VIAL SQ SCH ×2 (08:50→20:52)
[2023-06-25] MEDS: [UNRECOGNIZED DRUG - OTHER] TOP SCH ×2 (08:54→20:10)
[2023-06-25] MEDS: REMEDY ESSENTIAL ZINC PASTE 113 GM TOP SCH ×2 (08:54→20:10)
[2023-06-25] MEDS: NEOMY/BACITRA/POLYMYXIN B OINT UD PACKET TP SCH ×2 (08:55→21:11)
[2023-06-25] MEDS: VITAMINS A AND D 5 GM UD PKT TP SCH (08:55)
[2023-06-25] MEDS: ZINC OXIDE OINT 30 GM TUBE TP SCH ×2 (08:55→21:11)
[2023-06-25] MEDS: TOBRAMYCIN 0.3% OPHT DROP 5 ML BOTTLE RIGHTEYE SCH ×4 (09:27→20:07)
[2023-06-25 10:20] VITALS: O2SAT 98
[2023-06-25] MEDS: JEVITY 1.2 1000 ML LIQUID GT PRN (17:45)
[2023-06-25 20:00] VITALS: TEMP 98.8
[2023-06-25] MEDS: OMEGA-3 FATTY ACIDS/FISH OIL CAPSULE GT SCH (20:10)
[2023-06-25 21:31] VITALS: O2SAT 99
[2023-06-26] MEDS: TOBRAMYCIN 0.3% OPHT DROP 5 ML BOTTLE RIGHTEYE SCH ×6 (04:06→20:00)
[2023-06-26] MEDS: LORATADINE 10 MG TABLET GT SCH (05:29)
[2023-06-26] MEDS: OMEPRAZOLE 20 MG CAPSULE.DR GT SCH (05:29)
[2023-06-26] MEDS: CHOLECALCIFEROL 1,000 UNIT TABLET GT SCH (05:29)
[2023-06-26] MEDS: HYDROGEN PEROXIDE 3% 118 ML BOTTLE TP SCH ×2 (07:31→21:24)
[2023-06-26 08:00] VITALS: TEMP 98
[2023-06-26] MEDS: [UNRECOGNIZED DRUG - OTHER] GT SCH ×2 (08:02→21:19)
[2023-06-26] MEDS: BACLOFEN 10 MG TABLET GT SCH ×3 (08:02→16:46)
[2023-06-26] MEDS: DOCUSATE SODIUM 100 MG/10 ML LIQUID UDC GT SCH ×2 (08:02→21:17)
[2023-06-26] MEDS: KETOCONAZOLE 2% SHAMPOO 120 ML BOTTLE TP SCH (08:03)
[2023-06-26] MEDS: HEPARIN SODIUM,PORCINE 5,000 UNITS/ML VIAL SQ SCH ×2 (08:03→21:51)
[2023-06-26] MEDS: REMEDY ESSENTIAL ZINC PASTE 113 GM TOP SCH ×2 (08:03→21:20)
[2023-06-26] MEDS: NEOMY/BACITRA/POLYMYXIN B OINT UD PACKET TP SCH ×2 (08:03→21:20)
[2023-06-26] MEDS: [UNRECOGNIZED DRUG - OTHER] TOP SCH ×2 (08:03→21:20)
[2023-06-26] MEDS: VITAMINS A AND D 5 GM UD PKT TP SCH (08:03)
[2023-06-26] MEDS: ZINC OXIDE OINT 30 GM TUBE TP SCH ×2 (08:03→21:20)
[2023-06-26 10:30] VITALS: O2SAT 95
[2023-06-26] MEDS: JEVITY 1.2 1000 ML LIQUID GT PRN (12:12)
[2023-06-26 20:00] VITALS: TEMP 98.4
[2023-06-26] MEDS: OMEGA-3 FATTY ACIDS/FISH OIL CAPSULE GT SCH (21:18)
[2023-06-26 21:24] VITALS: O2SAT 99
[2023-06-27] MEDS: TOBRAMYCIN 0.3% OPHT DROP 5 ML BOTTLE RIGHTEYE SCH ×6 (00:46→20:24)
[2023-06-27] MEDS: JEVITY 1.2 1000 ML LIQUID GT PRN (03:32)
[2023-06-27] MEDS: OMEPRAZOLE 20 MG CAPSULE.DR GT SCH (06:15)
[2023-06-27] MEDS: CHOLECALCIFEROL 1,000 UNIT TABLET GT SCH (06:15)
[2023-06-27] MEDS: LORATADINE 10 MG TABLET GT SCH (06:15)
[2023-06-27 07:33] VITALS: TEMP 98.9
[2023-06-27] MEDS: DOCUSATE SODIUM 100 MG/10 ML LIQUID UDC GT SCH ×2 (08:30→20:24)
[2023-06-27] MEDS: NEOMY/BACITRA/POLYMYXIN B OINT UD PACKET TP SCH ×2 (08:30→20:26)
[2023-06-27] MEDS: VITAMINS A AND D 5 GM UD PKT TP SCH (08:30)
[2023-06-27] MEDS: [UNRECOGNIZED DRUG - OTHER] GT SCH ×2 (08:30→20:24)
[2023-06-27] MEDS: [UNRECOGNIZED DRUG - OTHER] TOP SCH ×2 (08:30→20:26)
[2023-06-27] MEDS: BACLOFEN 10 MG TABLET GT SCH ×3 (08:30→16:31)
[2023-06-27] MEDS: REMEDY ESSENTIAL ZINC PASTE 113 GM TOP SCH ×2 (08:30→20:26)
[2023-06-27] MEDS: HEPARIN SODIUM,PORCINE 5,000 UNITS/ML VIAL SQ SCH ×2 (08:30→20:25)
[2023-06-27] MEDS: ZINC OXIDE OINT 30 GM TUBE TP SCH ×2 (08:30→20:26)
[2023-06-27] MEDS: HYDROGEN PEROXIDE 3% 118 ML BOTTLE TP SCH ×2 (09:00→20:34)
[2023-06-27 09:10] VITALS: O2SAT 95
[2023-06-27 20:19] VITALS: TEMP 98.6
[2023-06-27] MEDS: OMEGA-3 FATTY ACIDS/FISH OIL CAPSULE GT SCH (20:24)
[2023-06-27 20:49] VITALS: O2SAT 99
[2023-06-28] MEDS: TOBRAMYCIN 0.3% OPHT DROP 5 ML BOTTLE RIGHTEYE SCH ×6 (00:49→20:00)
[2023-06-28] MEDS: OMEPRAZOLE 20 MG CAPSULE.DR GT SCH (05:16)
[2023-06-28] MEDS: LORATADINE 10 MG TABLET GT SCH (05:16)
[2023-06-28] MEDS: CHOLECALCIFEROL 1,000 UNIT TABLET GT SCH (05:16)
[2023-06-28 07:26] VITALS: TEMP 98.7
[2023-06-28] MEDS: NEOMY/BACITRA/POLYMYXIN B OINT UD PACKET TP SCH ×2 (09:00→21:07)
[2023-06-28] MEDS: ZINC OXIDE OINT 30 GM TUBE TP SCH ×2 (09:00→21:07)
[2023-06-28] MEDS: [UNRECOGNIZED DRUG - OTHER] GT SCH ×2 (09:00→21:06)
[2023-06-28] MEDS: VITAMINS A AND D 5 GM UD PKT TP SCH (09:00)
[2023-06-28] MEDS: [UNRECOGNIZED DRUG - OTHER] TOP SCH ×2 (09:00→21:06)
[2023-06-28] MEDS: HEPARIN SODIUM,PORCINE 5,000 UNITS/ML VIAL SQ SCH ×2 (09:00→21:11)
[2023-06-28] MEDS: REMEDY ESSENTIAL ZINC PASTE 113 GM TOP SCH ×2 (09:00→21:06)
[2023-06-28] MEDS: DOCUSATE SODIUM 100 MG/10 ML LIQUID UDC GT SCH ×2 (09:00→21:06)
[2023-06-28] MEDS: BACLOFEN 10 MG TABLET GT SCH ×3 (09:00→16:54)
[2023-06-28] MEDS: HYDROGEN PEROXIDE 3% 118 ML BOTTLE TP SCH ×2 (09:27→21:11)
[2023-06-28 15:29] VITALS: O2SAT 95
[2023-06-28 20:02] VITALS: O2SAT 99
[2023-06-28 20:12] VITALS: TEMP 98.1
[2023-06-28] MEDS: OMEGA-3 FATTY ACIDS/FISH OIL CAPSULE GT SCH (21:06)
[2023-06-29] MEDS: TOBRAMYCIN 0.3% OPHT DROP 5 ML BOTTLE RIGHTEYE SCH ×6 (00:13→20:00)
[2023-06-29] MEDS: OMEPRAZOLE 20 MG CAPSULE.DR GT SCH (05:20)
[2023-06-29] MEDS: LORATADINE 10 MG TABLET GT SCH (05:20)
[2023-06-29] MEDS: CHOLECALCIFEROL 1,000 UNIT TABLET GT SCH (05:20)
[2023-06-29] MEDS: HYDROGEN PEROXIDE 3% 118 ML BOTTLE TP SCH ×2 (07:23→20:52)
[2023-06-29 07:26] VITALS: TEMP 98.7
[2023-06-29] MEDS: BACLOFEN 10 MG TABLET GT SCH ×3 (08:54→17:20)
[2023-06-29] MEDS: [UNRECOGNIZED DRUG - OTHER] GT SCH ×2 (08:54→20:22)
[2023-06-29] MEDS: DOCUSATE SODIUM 100 MG/10 ML LIQUID UDC GT SCH ×2 (08:54→20:19)
[2023-06-29] MEDS: HEPARIN SODIUM,PORCINE 5,000 UNITS/ML VIAL SQ SCH (08:55)
[2023-06-29] MEDS: [UNRECOGNIZED DRUG - OTHER] TOP SCH ×2 (08:55→20:22)
[2023-06-29] MEDS: REMEDY ESSENTIAL ZINC PASTE 113 GM TOP SCH ×2 (08:55→20:22)
[2023-06-29] MEDS: VITAMINS A AND D 5 GM UD PKT TP SCH (09:00)
[2023-06-29] MEDS: ZINC OXIDE OINT 30 GM TUBE TP SCH ×2 (09:00→20:23)
[2023-06-29] MEDS: NEOMY/BACITRA/POLYMYXIN B OINT UD PACKET TP SCH ×2 (09:00→20:23)
[2023-06-29 09:16] VITALS: O2SAT 95
[2023-06-29] MEDS: OMEGA-3 FATTY ACIDS/FISH OIL CAPSULE GT SCH (20:22)
[2023-06-29 20:37] VITALS: TEMP 98.6
[2023-06-29 20:52] VITALS: O2SAT 99
[2023-06-30] MEDS: TOBRAMYCIN 0.3% OPHT DROP 5 ML BOTTLE RIGHTEYE SCH ×7 (00:01→23:49)
[2023-06-30] MEDS: CHOLECALCIFEROL 1,000 UNIT TABLET GT SCH (05:22)
[2023-06-30] MEDS: LORATADINE 10 MG TABLET GT SCH (05:22)
[2023-06-30] MEDS: OMEPRAZOLE 20 MG CAPSULE.DR GT SCH (05:22)
[2023-06-30 08:00] VITALS: TEMP 97.8
[2023-06-30] MEDS: HYDROGEN PEROXIDE 3% 118 ML BOTTLE TP SCH ×2 (08:51→20:42)
[2023-06-30] MEDS: DOCUSATE SODIUM 100 MG/10 ML LIQUID UDC GT SCH ×2 (08:52→20:22)
[2023-06-30] MEDS: [UNRECOGNIZED DRUG - OTHER] GT SCH ×2 (08:53→20:23)
[2023-06-30] MEDS: [UNRECOGNIZED DRUG - OTHER] TOP SCH ×2 (08:53→20:23)
[2023-06-30] MEDS: BACLOFEN 10 MG TABLET GT SCH ×3 (08:53→17:00)
[2023-06-30] MEDS: REMEDY ESSENTIAL ZINC PASTE 113 GM TOP SCH ×2 (08:53→20:23)
[2023-06-30] MEDS: NEOMY/BACITRA/POLYMYXIN B OINT UD PACKET TP SCH ×2 (08:53→20:23)
[2023-06-30] MEDS: KETOCONAZOLE 2% SHAMPOO 120 ML BOTTLE TP SCH (08:53)
[2023-06-30] MEDS: VITAMINS A AND D 5 GM UD PKT TP SCH (08:54)
[2023-06-30] MEDS: ZINC OXIDE OINT 30 GM TUBE TP SCH ×2 (08:54→20:23)
[2023-06-30 09:40] VITALS: O2SAT 95
[2023-06-30 20:20] VITALS: TEMP 98.7
[2023-06-30] MEDS: OMEGA-3 FATTY ACIDS/FISH OIL CAPSULE GT SCH (20:22)
[2023-06-30 20:43] VITALS: O2SAT 99
[2023-07-01] MEDS: TOBRAMYCIN 0.3% OPHT DROP 5 ML BOTTLE RIGHTEYE SCH ×5 (04:00→20:00)
[2023-07-01] MEDS: OMEPRAZOLE 20 MG CAPSULE.DR GT SCH (05:41)
[2023-07-01] MEDS: LORATADINE 10 MG TABLET GT SCH (05:41)
[2023-07-01] MEDS: CHOLECALCIFEROL 1,000 UNIT TABLET GT SCH (05:41)
[2023-07-01] MEDS: HYDROGEN PEROXIDE 3% 118 ML BOTTLE TP SCH ×2 (07:16→19:23)
[2023-07-01 08:00] VITALS: TEMP 98.2
[2023-07-01] MEDS: DOCUSATE SODIUM 100 MG/10 ML LIQUID UDC GT SCH ×2 (08:27→20:30)
[2023-07-01] MEDS: [UNRECOGNIZED DRUG - OTHER] TOP SCH ×2 (08:30→20:30)
[2023-07-01] MEDS: [UNRECOGNIZED DRUG - OTHER] GT SCH ×2 (08:30→20:30)
[2023-07-01] MEDS: BACLOFEN 10 MG TABLET GT SCH ×3 (08:30→17:27)
[2023-07-01] MEDS: VITAMINS A AND D 5 GM UD PKT TP SCH (09:00)
[2023-07-01] MEDS: NEOMY/BACITRA/POLYMYXIN B OINT UD PACKET TP SCH ×2 (09:00→20:30)
[2023-07-01] MEDS: ZINC OXIDE OINT 30 GM TUBE TP SCH ×2 (09:00→20:30)
[2023-07-01] MEDS: REMEDY ESSENTIAL ZINC PASTE 113 GM TOP SCH ×2 (09:00→20:30)
[2023-07-01 10:45] VITALS: O2SAT 98
[2023-07-01] MEDS: OMEGA-3 FATTY ACIDS/FISH OIL CAPSULE GT SCH (20:30)
[2023-07-01 22:13] VITALS: TEMP 98.3
[2023-07-01 23:20] VITALS: O2SAT 97
[2023-07-02] MEDS: TOBRAMYCIN 0.3% OPHT DROP 5 ML BOTTLE RIGHTEYE SCH ×2 (00:37→04:00)
[2023-07-02] MEDS: LORATADINE 10 MG TABLET GT SCH (05:17)
[2023-07-02] MEDS: CHOLECALCIFEROL 1,000 UNIT TABLET GT SCH (05:17)
[2023-07-02] MEDS: OMEPRAZOLE 20 MG CAPSULE.DR GT SCH (05:17)
[2023-07-02] MEDS: HYDROGEN PEROXIDE 3% 118 ML BOTTLE TP SCH ×2 (07:57→21:50)
[2023-07-02 08:02] VITALS: TEMP 98
[2023-07-02] MEDS: DOCUSATE SODIUM 100 MG/10 ML LIQUID UDC GT SCH ×2 (09:11→20:19)
[2023-07-02] MEDS: BACLOFEN 10 MG TABLET GT SCH ×3 (09:11→17:30)
[2023-07-02] MEDS: ZINC OXIDE OINT 30 GM TUBE TP SCH ×2 (09:12→20:20)
[2023-07-02] MEDS: NEOMY/BACITRA/POLYMYXIN B OINT UD PACKET TP SCH ×2 (09:12→20:19)
[2023-07-02] MEDS: REMEDY ESSENTIAL ZINC PASTE 113 GM TOP SCH ×2 (09:12→20:19)
[2023-07-02] MEDS: JEVITY 1.2 1000 ML LIQUID GT PRN (09:12)
[2023-07-02] MEDS: [UNRECOGNIZED DRUG - OTHER] GT SCH ×2 (09:12→20:19)
[2023-07-02] MEDS: [UNRECOGNIZED DRUG - OTHER] TOP SCH ×2 (09:12→20:19)
[2023-07-02] MEDS: VITAMINS A AND D 5 GM UD PKT TP SCH (09:12)
[2023-07-02 10:50] VITALS: O2SAT 98
[2023-07-02] MEDS: OMEGA-3 FATTY ACIDS/FISH OIL CAPSULE GT SCH (20:19)
[2023-07-02] MEDS: HEPARIN SODIUM,PORCINE 5,000 UNITS/ML VIAL SQ SCH (21:00)
[2023-07-02 21:26] VITALS: TEMP 98.2
[2023-07-03 00:07] VITALS: O2SAT 96
[2023-07-03] MEDS: CHOLECALCIFEROL 1,000 UNIT TABLET GT SCH (05:13)
[2023-07-03] MEDS: LORATADINE 10 MG TABLET GT SCH (05:13)
[2023-07-03] MEDS: OMEPRAZOLE 20 MG CAPSULE.DR GT SCH (05:13)
[2023-07-03] MEDS: JEVITY 1.2 1000 ML LIQUID GT PRN (05:16)
[2023-07-03 07:47] VITALS: TEMP 99.3
[2023-07-03] MEDS: HYDROGEN PEROXIDE 3% 118 ML BOTTLE TP SCH ×2 (09:00→21:00)
[2023-07-03] MEDS: [UNRECOGNIZED DRUG - OTHER] GT SCH ×2 (09:09→20:03)
[2023-07-03] MEDS: DOCUSATE SODIUM 100 MG/10 ML LIQUID UDC GT SCH ×2 (09:09→20:03)
[2023-07-03] MEDS: BACLOFEN 10 MG TABLET GT SCH ×3 (09:09→18:00)
[2023-07-03] MEDS: ZINC OXIDE OINT 30 GM TUBE TP SCH ×2 (09:10→20:03)
[2023-07-03] MEDS: VITAMINS A AND D 5 GM UD PKT TP SCH (09:10)
[2023-07-03] MEDS: KETOCONAZOLE 2% SHAMPOO 120 ML BOTTLE TP SCH (09:10)
[2023-07-03] MEDS: REMEDY ESSENTIAL ZINC PASTE 113 GM TOP SCH ×2 (09:10→20:03)
[2023-07-03] MEDS: [UNRECOGNIZED DRUG - OTHER] TOP SCH ×2 (09:10→20:03)
[2023-07-03] MEDS: NEOMY/BACITRA/POLYMYXIN B OINT UD PACKET TP SCH ×2 (09:10→20:03)
[2023-07-03] MEDS: HEPARIN SODIUM,PORCINE 5,000 UNITS/ML VIAL SQ SCH ×2 (09:10→21:53)
[2023-07-03] MEDS: ACETAMINOPHEN 650 MG/20 ML UDC- SA PATIENTS-PAIN ONLY GT PRN (09:18)
[2023-07-03 10:40] VITALS: O2SAT 98
[2023-07-03] MEDS: OMEGA-3 FATTY ACIDS/FISH OIL CAPSULE GT SCH (20:03)
[2023-07-03 20:10] VITALS: O2SAT 96
[2023-07-03 23:15] VITALS: TEMP 98.1
[2023-07-04] MEDS: OMEPRAZOLE 20 MG CAPSULE.DR GT SCH (05:26)
[2023-07-04] MEDS: LORATADINE 10 MG TABLET GT SCH (05:26)
[2023-07-04] MEDS: CHOLECALCIFEROL 1,000 UNIT TABLET GT SCH (05:26)
[2023-07-04] MEDS: JEVITY 1.2 1000 ML LIQUID GT PRN ×2 (05:27→20:17)
[2023-07-04 07:54] VITALS: TEMP 98.5
[2023-07-04] MEDS: DOCUSATE SODIUM 100 MG/10 ML LIQUID UDC GT SCH ×2 (09:03→20:11)
[2023-07-04] MEDS: BACLOFEN 10 MG TABLET GT SCH ×3 (09:07→16:46)
[2023-07-04] MEDS: [UNRECOGNIZED DRUG - OTHER] GT SCH ×2 (09:08→20:12)
[2023-07-04] MEDS: ZINC OXIDE OINT 30 GM TUBE TP SCH ×2 (09:13→20:14)
[2023-07-04] MEDS: HEPARIN SODIUM,PORCINE 5,000 UNITS/ML VIAL SQ SCH ×2 (09:13→20:12)
[2023-07-04] MEDS: REMEDY ESSENTIAL ZINC PASTE 113 GM TOP SCH ×2 (09:13→20:14)
[2023-07-04] MEDS: NEOMY/BACITRA/POLYMYXIN B OINT UD PACKET TP SCH ×2 (09:13→20:14)
[2023-07-04] MEDS: VITAMINS A AND D 5 GM UD PKT TP SCH (09:13)
[2023-07-04] MEDS: [UNRECOGNIZED DRUG - OTHER] TOP SCH ×2 (09:13→20:14)
[2023-07-04 09:20] VITALS: O2SAT 98
[2023-07-04] MEDS: HYDROGEN PEROXIDE 3% 118 ML BOTTLE TP SCH ×2 (09:34→20:20)
[2023-07-04 19:27] VITALS: O2SAT 96
[2023-07-04] MEDS: OMEGA-3 FATTY ACIDS/FISH OIL CAPSULE GT SCH (20:11)
[2023-07-04 20:14] VITALS: TEMP 98.5
[2023-07-05] MEDS: CHOLECALCIFEROL 1,000 UNIT TABLET GT SCH (05:06)
[2023-07-05] MEDS: LORATADINE 10 MG TABLET GT SCH (05:06)
[2023-07-05] MEDS: OMEPRAZOLE 20 MG CAPSULE.DR GT SCH (05:06)
[2023-07-05 07:28] VITALS: TEMP 98.1
[2023-07-05 09:00] VITALS: O2SAT 98
[2023-07-05] MEDS: HYDROGEN PEROXIDE 3% 118 ML BOTTLE TP SCH ×2 (09:07→19:14)
[2023-07-05] MEDS: BACLOFEN 10 MG TABLET GT SCH ×3 (09:23→16:51)
[2023-07-05] MEDS: DOCUSATE SODIUM 100 MG/10 ML LIQUID UDC GT SCH ×2 (09:23→20:34)
[2023-07-05] MEDS: [UNRECOGNIZED DRUG - OTHER] GT SCH ×2 (09:23→20:35)
[2023-07-05] MEDS: HEPARIN SODIUM,PORCINE 5,000 UNITS/ML VIAL SQ SCH ×2 (09:29→20:35)
[2023-07-05] MEDS: [UNRECOGNIZED DRUG - OTHER] TOP SCH ×2 (09:31→20:35)
[2023-07-05] MEDS: NEOMY/BACITRA/POLYMYXIN B OINT UD PACKET TP SCH ×2 (09:34→20:36)
[2023-07-05] MEDS: VITAMINS A AND D 5 GM UD PKT TP SCH (09:34)
[2023-07-05] MEDS: REMEDY ESSENTIAL ZINC PASTE 113 GM TOP SCH ×2 (09:34→20:36)
[2023-07-05] MEDS: ZINC OXIDE OINT 30 GM TUBE TP SCH ×2 (09:34→20:36)
[2023-07-05 19:40] VITALS: TEMP 98.3
[2023-07-05 20:00] VITALS: O2SAT 96
[2023-07-05] MEDS: OMEGA-3 FATTY ACIDS/FISH OIL CAPSULE GT SCH (20:34)
[2023-07-06] MEDS: OMEPRAZOLE 20 MG CAPSULE.DR GT SCH (05:14)
[2023-07-06] MEDS: CHOLECALCIFEROL 1,000 UNIT TABLET GT SCH (05:14)
[2023-07-06] MEDS: LORATADINE 10 MG TABLET GT SCH (05:14)
[2023-07-06] MEDS: HYDROGEN PEROXIDE 3% 118 ML BOTTLE TP SCH ×2 (07:14→20:49)
[2023-07-06 07:47] VITALS: TEMP 98.5
[2023-07-06] MEDS: BACLOFEN 10 MG TABLET GT SCH ×3 (08:36→16:20)
[2023-07-06] MEDS: DOCUSATE SODIUM 100 MG/10 ML LIQUID UDC GT SCH ×2 (08:36→20:38)
[2023-07-06] MEDS: [UNRECOGNIZED DRUG - OTHER] TOP SCH ×2 (08:37→20:41)
[2023-07-06] MEDS: [UNRECOGNIZED DRUG - OTHER] GT SCH ×2 (08:37→20:38)
[2023-07-06] MEDS: REMEDY ESSENTIAL ZINC PASTE 113 GM TOP SCH ×2 (08:38→20:41)
[2023-07-06] MEDS: VITAMINS A AND D 5 GM UD PKT TP SCH (08:38)
[2023-07-06] MEDS: NEOMY/BACITRA/POLYMYXIN B OINT UD PACKET TP SCH ×2 (08:38→20:41)
[2023-07-06] MEDS: ZINC OXIDE OINT 30 GM TUBE TP SCH ×2 (08:38→20:41)
[2023-07-06] MEDS: HEPARIN SODIUM,PORCINE 5,000 UNITS/ML VIAL SQ SCH ×2 (08:39→20:41)
[2023-07-06 10:40] VITALS: O2SAT 98
[2023-07-06] MEDS: JEVITY 1.2 1000 ML LIQUID GT PRN (16:21)
[2023-07-06 19:40] VITALS: TEMP 98.7
[2023-07-06] MEDS: OMEGA-3 FATTY ACIDS/FISH OIL CAPSULE GT SCH (20:38)
[2023-07-06 20:50] VITALS: O2SAT 99
[2023-07-07] MEDS: CHOLECALCIFEROL 1,000 UNIT TABLET GT SCH (06:08)
[2023-07-07] MEDS: LORATADINE 10 MG TABLET GT SCH (06:08)
[2023-07-07] MEDS: OMEPRAZOLE 20 MG CAPSULE.DR GT SCH (06:08)
[2023-07-07 07:19] VITALS: TEMP 98.4
[2023-07-07] MEDS: DOCUSATE SODIUM 100 MG/10 ML LIQUID UDC GT SCH ×2 (08:47→20:01)
[2023-07-07] MEDS: [UNRECOGNIZED DRUG - OTHER] GT SCH ×2 (08:48→20:01)
[2023-07-07] MEDS: BACLOFEN 10 MG TABLET GT SCH ×3 (08:48→16:36)
[2023-07-07] MEDS: [UNRECOGNIZED DRUG - OTHER] TOP SCH ×2 (08:48→20:01)
[2023-07-07] MEDS: KETOCONAZOLE 2% SHAMPOO 120 ML BOTTLE TP SCH (08:49)
[2023-07-07] MEDS: VITAMINS A AND D 5 GM UD PKT TP SCH (08:49)
[2023-07-07] MEDS: ZINC OXIDE OINT 30 GM TUBE TP SCH ×2 (08:49→20:01)
[2023-07-07] MEDS: NEOMY/BACITRA/POLYMYXIN B OINT UD PACKET TP SCH (08:49)
[2023-07-07] MEDS: REMEDY ESSENTIAL ZINC PASTE 113 GM TOP SCH ×2 (08:49→20:01)
[2023-07-07] MEDS: HEPARIN SODIUM,PORCINE 5,000 UNITS/ML VIAL SQ SCH ×2 (08:52→21:00)
[2023-07-07] MEDS: HYDROGEN PEROXIDE 3% 118 ML BOTTLE TP SCH ×2 (09:14→19:24)
[2023-07-07 10:00] VITALS: O2SAT 98
[2023-07-07] MEDS: JEVITY 1.2 1000 ML LIQUID GT PRN (12:36)
[2023-07-07 20:00] VITALS: TEMP 98.2; O2SAT 99
[2023-07-07] MEDS: OMEGA-3 FATTY ACIDS/FISH OIL CAPSULE GT SCH (20:01)
[2023-07-08] MEDS: CHOLECALCIFEROL 1,000 UNIT TABLET GT SCH (05:27)
[2023-07-08] MEDS: OMEPRAZOLE 20 MG CAPSULE.DR GT SCH (05:27)
[2023-07-08] MEDS: LORATADINE 10 MG TABLET GT SCH (05:27)
[2023-07-08] MEDS: JEVITY 1.2 1000 ML LIQUID GT PRN (05:30)
[2023-07-08 07:57] VITALS: TEMP 98.7
[2023-07-08] MEDS: [UNRECOGNIZED DRUG - OTHER] GT SCH ×2 (09:01→20:40)
[2023-07-08] MEDS: DOCUSATE SODIUM 100 MG/10 ML LIQUID UDC GT SCH ×2 (09:01→20:40)
[2023-07-08] MEDS: BACLOFEN 10 MG TABLET GT SCH ×3 (09:01→17:05)
[2023-07-08] MEDS: HEPARIN SODIUM,PORCINE 5,000 UNITS/ML VIAL SQ SCH ×2 (09:02→20:40)
[2023-07-08] MEDS: [UNRECOGNIZED DRUG - OTHER] TOP SCH ×2 (09:02→20:40)
[2023-07-08] MEDS: ZINC OXIDE OINT 30 GM TUBE TP SCH ×2 (09:03→20:40)
[2023-07-08] MEDS: REMEDY ESSENTIAL ZINC PASTE 113 GM TOP SCH ×2 (09:03→20:40)
[2023-07-08] MEDS: VITAMINS A AND D 5 GM UD PKT TP SCH (09:03)
[2023-07-08] MEDS: HYDROGEN PEROXIDE 3% 118 ML BOTTLE TP SCH ×2 (09:10→21:24)
[2023-07-08 17:15] VITALS: O2SAT 95
[2023-07-08 20:00] VITALS: TEMP 98.6
[2023-07-08] MEDS: OMEGA-3 FATTY ACIDS/FISH OIL CAPSULE GT SCH (20:40)
[2023-07-08 20:50] VITALS: O2SAT 99
[2023-07-09] MEDS: JEVITY 1.2 1000 ML LIQUID GT PRN (01:33)
[2023-07-09] MEDS: CHOLECALCIFEROL 1,000 UNIT TABLET GT SCH (05:33)
[2023-07-09] MEDS: OMEPRAZOLE 20 MG CAPSULE.DR GT SCH (05:33)
[2023-07-09] MEDS: LORATADINE 10 MG TABLET GT SCH (05:33)
[2023-07-09 07:43] VITALS: TEMP 98.4
[2023-07-09] MEDS: BACLOFEN 10 MG TABLET GT SCH ×3 (08:41→17:09)
[2023-07-09] MEDS: [UNRECOGNIZED DRUG - OTHER] GT SCH ×2 (08:41→20:52)
[2023-07-09] MEDS: DOCUSATE SODIUM 100 MG/10 ML LIQUID UDC GT SCH ×2 (08:41→20:52)
[2023-07-09] MEDS: HEPARIN SODIUM,PORCINE 5,000 UNITS/ML VIAL SQ SCH ×2 (08:42→21:00)
[2023-07-09] MEDS: ZINC OXIDE OINT 30 GM TUBE TP SCH ×2 (08:42→20:52)
[2023-07-09] MEDS: VITAMINS A AND D 5 GM UD PKT TP SCH (08:42)
[2023-07-09] MEDS: [UNRECOGNIZED DRUG - OTHER] TOP SCH ×2 (08:42→20:52)
[2023-07-09] MEDS: REMEDY ESSENTIAL ZINC PASTE 113 GM TOP SCH ×2 (08:42→20:52)
[2023-07-09 09:00] VITALS: O2SAT 98
[2023-07-09] MEDS: HYDROGEN PEROXIDE 3% 118 ML BOTTLE TP SCH ×2 (09:00→20:58)
[2023-07-09 20:00] VITALS: TEMP 98.2
[2023-07-09 20:10] VITALS: O2SAT 99
[2023-07-09] MEDS: OMEGA-3 FATTY ACIDS/FISH OIL CAPSULE GT SCH (20:52)
[2023-07-10] MEDS: CHOLECALCIFEROL 1,000 UNIT TABLET GT SCH (05:58)
[2023-07-10] MEDS: OMEPRAZOLE 20 MG CAPSULE.DR GT SCH (05:58)
[2023-07-10] MEDS: LORATADINE 10 MG TABLET GT SCH (05:58)
[2023-07-10] MEDS: HYDROGEN PEROXIDE 3% 118 ML BOTTLE TP SCH ×3 (07:52→19:19)
[2023-07-10 08:00] VITALS: TEMP 98.8
[2023-07-10] MEDS: DOCUSATE SODIUM 100 MG/10 ML LIQUID UDC GT SCH ×2 (08:08→20:45)
[2023-07-10] MEDS: VITAMINS A AND D 5 GM UD PKT TP SCH (08:08)
[2023-07-10] MEDS: REMEDY ESSENTIAL ZINC PASTE 113 GM TOP SCH ×2 (08:08→20:45)
[2023-07-10] MEDS: KETOCONAZOLE 2% SHAMPOO 120 ML BOTTLE TP SCH (08:08)
[2023-07-10] MEDS: BACLOFEN 10 MG TABLET GT SCH ×3 (08:08→17:56)
[2023-07-10] MEDS: [UNRECOGNIZED DRUG - OTHER] TOP SCH ×2 (08:08→20:45)
[2023-07-10] MEDS: ZINC OXIDE OINT 30 GM TUBE TP SCH ×2 (08:08→20:45)
[2023-07-10] MEDS: [UNRECOGNIZED DRUG - OTHER] GT SCH ×2 (08:08→20:45)
[2023-07-10] MEDS: HEPARIN SODIUM,PORCINE 5,000 UNITS/ML VIAL SQ SCH ×2 (08:08→21:53)
[2023-07-10 10:40] VITALS: O2SAT 98
[2023-07-10] MEDS: JEVITY 1.2 1000 ML LIQUID GT PRN (12:11)
[2023-07-10 19:55] VITALS: O2SAT 99
[2023-07-10 20:00] VITALS: TEMP 98.6
[2023-07-10] MEDS: OMEGA-3 FATTY ACIDS/FISH OIL CAPSULE GT SCH (20:45)
[2023-07-11] MEDS: JEVITY 1.2 1000 ML LIQUID GT PRN (04:24)
[2023-07-11] MEDS: OMEPRAZOLE 20 MG CAPSULE.DR GT SCH (05:31)
[2023-07-11] MEDS: CHOLECALCIFEROL 1,000 UNIT TABLET GT SCH (05:31)
[2023-07-11] MEDS: LORATADINE 10 MG TABLET GT SCH (05:31)
[2023-07-11 07:32] VITALS: TEMP 98
[2023-07-11] MEDS: BACLOFEN 10 MG TABLET GT SCH ×3 (08:32→17:29)
[2023-07-11] MEDS: [UNRECOGNIZED DRUG - OTHER] GT SCH ×2 (08:32→20:25)
[2023-07-11] MEDS: [UNRECOGNIZED DRUG - OTHER] TOP SCH ×2 (08:32→20:25)
[2023-07-11] MEDS: REMEDY ESSENTIAL ZINC PASTE 113 GM TOP SCH ×2 (08:32→20:25)
[2023-07-11] MEDS: DOCUSATE SODIUM 100 MG/10 ML LIQUID UDC GT SCH ×2 (08:32→20:25)
[2023-07-11] MEDS: HEPARIN SODIUM,PORCINE 5,000 UNITS/ML VIAL SQ SCH ×2 (08:32→20:25)
[2023-07-11] MEDS: VITAMINS A AND D 5 GM UD PKT TP SCH (08:33)
[2023-07-11] MEDS: ZINC OXIDE OINT 30 GM TUBE TP SCH ×2 (08:33→20:25)
[2023-07-11 10:50] VITALS: O2SAT 99
[2023-07-11 19:47] VITALS: TEMP 97.6
[2023-07-11] MEDS: OMEGA-3 FATTY ACIDS/FISH OIL CAPSULE GT SCH (20:25)
[2023-07-11] MEDS: HYDROGEN PEROXIDE 3% 118 ML BOTTLE TP SCH (20:30)
[2023-07-11 20:58] VITALS: O2SAT 99
[2023-07-12] MEDS: LORATADINE 10 MG TABLET GT SCH (05:37)
[2023-07-12] MEDS: OMEPRAZOLE 20 MG CAPSULE.DR GT SCH (05:37)
[2023-07-12] MEDS: CHOLECALCIFEROL 1,000 UNIT TABLET GT SCH (05:37)
[2023-07-12 07:16] VITALS: TEMP 97.8
[2023-07-12] MEDS: DOCUSATE SODIUM 100 MG/10 ML LIQUID UDC GT SCH ×2 (08:44→20:25)
[2023-07-12] MEDS: BACLOFEN 10 MG TABLET GT SCH ×3 (08:44→17:35)
[2023-07-12] MEDS: [UNRECOGNIZED DRUG - OTHER] GT SCH ×2 (08:44→20:25)
[2023-07-12] MEDS: [UNRECOGNIZED DRUG - OTHER] TOP SCH ×2 (08:47→20:25)
[2023-07-12] MEDS: HEPARIN SODIUM,PORCINE 5,000 UNITS/ML VIAL SQ SCH ×2 (08:47→20:25)
[2023-07-12] MEDS: VITAMINS A AND D 5 GM UD PKT TP SCH (08:48)
[2023-07-12] MEDS: ZINC OXIDE OINT 30 GM TUBE TP SCH ×2 (08:48→20:26)
[2023-07-12] MEDS: REMEDY ESSENTIAL ZINC PASTE 113 GM TOP SCH ×2 (08:48→20:26)
[2023-07-12 09:10] VITALS: O2SAT 98
[2023-07-12] MEDS: HYDROGEN PEROXIDE 3% 118 ML BOTTLE TP SCH ×2 (09:21→21:48)
[2023-07-12 19:47] VITALS: TEMP 97.9
[2023-07-12] MEDS: OMEGA-3 FATTY ACIDS/FISH OIL CAPSULE GT SCH (20:25)
[2023-07-13 04:00] VITALS: O2SAT 99
[2023-07-13] MEDS: OMEPRAZOLE 20 MG CAPSULE.DR GT SCH (05:41)
[2023-07-13] MEDS: LORATADINE 10 MG TABLET GT SCH (05:41)
[2023-07-13] MEDS: CHOLECALCIFEROL 1,000 UNIT TABLET GT SCH (05:41)
[2023-07-13 07:18] VITALS: TEMP 98.6
[2023-07-13] MEDS: HYDROGEN PEROXIDE 3% 118 ML BOTTLE TP SCH ×2 (07:35→21:04)
[2023-07-13] MEDS: [UNRECOGNIZED DRUG - OTHER] GT SCH ×2 (09:25→20:17)
[2023-07-13] MEDS: BACLOFEN 10 MG TABLET GT SCH ×3 (09:25→16:48)
[2023-07-13] MEDS: DOCUSATE SODIUM 100 MG/10 ML LIQUID UDC GT SCH ×2 (09:25→20:15)
[2023-07-13] MEDS: [UNRECOGNIZED DRUG - OTHER] TOP SCH ×2 (09:26→20:18)
[2023-07-13] MEDS: HEPARIN SODIUM,PORCINE 5,000 UNITS/ML VIAL SQ SCH ×2 (09:26→20:18)
[2023-07-13] MEDS: VITAMINS A AND D 5 GM UD PKT TP SCH (09:26)
[2023-07-13] MEDS: ZINC OXIDE OINT 30 GM TUBE TP SCH ×2 (09:26→20:19)
[2023-07-13] MEDS: REMEDY ESSENTIAL ZINC PASTE 113 GM TOP SCH ×2 (09:26→20:19)
[2023-07-13 10:40] VITALS: O2SAT 98
[2023-07-13 20:00] VITALS: TEMP 97.6
[2023-07-13] MEDS: OMEGA-3 FATTY ACIDS/FISH OIL CAPSULE GT SCH (20:15)
[2023-07-13 21:05] VITALS: O2SAT 99
[2023-07-14] MEDS: JEVITY 1.2 1000 ML LIQUID GT PRN (06:00)
[2023-07-14] MEDS: LORATADINE 10 MG TABLET GT SCH (06:11)
[2023-07-14] MEDS: OMEPRAZOLE 20 MG CAPSULE.DR GT SCH (06:11)
[2023-07-14] MEDS: CHOLECALCIFEROL 1,000 UNIT TABLET GT SCH (06:11)
[2023-07-14 08:00] VITALS: TEMP 97.8
[2023-07-14] MEDS: [UNRECOGNIZED DRUG - OTHER] GT SCH ×2 (08:39→21:49)
[2023-07-14] MEDS: BACLOFEN 10 MG TABLET GT SCH ×3 (08:39→17:56)
[2023-07-14] MEDS: DOCUSATE SODIUM 100 MG/10 ML LIQUID UDC GT SCH ×2 (08:39→21:47)
[2023-07-14] MEDS: ZINC OXIDE OINT 30 GM TUBE TP SCH ×2 (08:43→21:51)
[2023-07-14] MEDS: VITAMINS A AND D 5 GM UD PKT TP SCH (08:43)
[2023-07-14] MEDS: KETOCONAZOLE 2% SHAMPOO 120 ML BOTTLE TP SCH (08:43)
[2023-07-14] MEDS: [UNRECOGNIZED DRUG - OTHER] TOP SCH ×2 (08:43→21:51)
[2023-07-14] MEDS: REMEDY ESSENTIAL ZINC PASTE 113 GM TOP SCH ×2 (08:43→21:51)
[2023-07-14] MEDS: HEPARIN SODIUM,PORCINE 5,000 UNITS/ML VIAL SQ SCH ×2 (08:43→21:50)
[2023-07-14] MEDS: HYDROGEN PEROXIDE 3% 118 ML BOTTLE TP SCH ×2 (08:46→21:48)
[2023-07-14 09:00] VITALS: O2SAT 98
[2023-07-14 20:00] VITALS: TEMP 98.4
[2023-07-14] MEDS: OMEGA-3 FATTY ACIDS/FISH OIL CAPSULE GT SCH (21:49)
[2023-07-15 00:01] VITALS: O2SAT 95
[2023-07-15] MEDS: JEVITY 1.2 1000 ML LIQUID GT PRN ×2 (01:00→23:00)
[2023-07-15] MEDS: OMEPRAZOLE 20 MG CAPSULE.DR GT SCH (05:54)
[2023-07-15] MEDS: LORATADINE 10 MG TABLET GT SCH (05:54)
[2023-07-15] MEDS: CHOLECALCIFEROL 1,000 UNIT TABLET GT SCH (05:54)
[2023-07-15] MEDS: HYDROGEN PEROXIDE 3% 118 ML BOTTLE TP SCH ×2 (07:15→21:07)
[2023-07-15 08:00] VITALS: TEMP 97.6
[2023-07-15] MEDS: BACLOFEN 10 MG TABLET GT SCH ×3 (09:12→17:50)
[2023-07-15] MEDS: DOCUSATE SODIUM 100 MG/10 ML LIQUID UDC GT SCH ×2 (09:12→20:02)
[2023-07-15] MEDS: [UNRECOGNIZED DRUG - OTHER] GT SCH ×2 (09:12→20:03)
[2023-07-15] MEDS: REMEDY ESSENTIAL ZINC PASTE 113 GM TOP SCH ×2 (09:13→20:05)
[2023-07-15] MEDS: VITAMINS A AND D 5 GM UD PKT TP SCH (09:13)
[2023-07-15] MEDS: [UNRECOGNIZED DRUG - OTHER] TOP SCH ×2 (09:13→20:05)
[2023-07-15] MEDS: ZINC OXIDE OINT 30 GM TUBE TP SCH ×2 (09:13→20:05)
[2023-07-15] MEDS: HEPARIN SODIUM,PORCINE 5,000 UNITS/ML VIAL SQ SCH ×2 (09:13→20:04)
[2023-07-15 10:45] VITALS: O2SAT 98
[2023-07-15 19:52] VITALS: TEMP 98.1
[2023-07-15] MEDS: OMEGA-3 FATTY ACIDS/FISH OIL CAPSULE GT SCH (20:03)
[2023-07-15 20:10] VITALS: O2SAT 97
[2023-07-16] MEDS: LORATADINE 10 MG TABLET GT SCH (05:01)
[2023-07-16] MEDS: OMEPRAZOLE 20 MG CAPSULE.DR GT SCH (05:02)
[2023-07-16] MEDS: CHOLECALCIFEROL 1,000 UNIT TABLET GT SCH (05:02)
[2023-07-16] MEDS: HYDROGEN PEROXIDE 3% 118 ML BOTTLE TP SCH ×2 (07:09→20:49)
[2023-07-16 08:00] VITALS: TEMP 98.6
[2023-07-16] MEDS: [UNRECOGNIZED DRUG - OTHER] GT SCH ×2 (09:03→20:07)
[2023-07-16] MEDS: DOCUSATE SODIUM 100 MG/10 ML LIQUID UDC GT SCH ×2 (09:03→20:07)
[2023-07-16] MEDS: BACLOFEN 10 MG TABLET GT SCH ×3 (09:03→16:56)
[2023-07-16] MEDS: VITAMINS A AND D 5 GM UD PKT TP SCH (09:07)
[2023-07-16] MEDS: [UNRECOGNIZED DRUG - OTHER] TOP SCH ×2 (09:07→20:07)
[2023-07-16] MEDS: REMEDY ESSENTIAL ZINC PASTE 113 GM TOP SCH ×2 (09:07→20:07)
[2023-07-16] MEDS: HEPARIN SODIUM,PORCINE 5,000 UNITS/ML VIAL SQ SCH ×2 (09:07→21:00)
[2023-07-16] MEDS: ZINC OXIDE OINT 30 GM TUBE TP SCH ×2 (09:07→20:07)
[2023-07-16 09:14] VITALS: O2SAT 98
[2023-07-16] MEDS: JEVITY 1.2 1000 ML LIQUID GT PRN (18:31)
[2023-07-16 19:52] VITALS: TEMP 98.2
[2023-07-16] MEDS: OMEGA-3 FATTY ACIDS/FISH OIL CAPSULE GT SCH (20:07)
[2023-07-16 20:10] VITALS: O2SAT 99
[2023-07-17] MEDS: CHOLECALCIFEROL 1,000 UNIT TABLET GT SCH (05:17)
[2023-07-17] MEDS: OMEPRAZOLE 20 MG CAPSULE.DR GT SCH (05:17)
[2023-07-17] MEDS: LORATADINE 10 MG TABLET GT SCH (05:17)
[2023-07-17 06:00] VITALS: TEMP 98.6
[2023-07-17 07:10] VITALS: O2SAT 99
[2023-07-17 07:50] VITALS: TEMP 98.5
[2023-07-17] MEDS: DOCUSATE SODIUM 100 MG/10 ML LIQUID UDC GT SCH ×2 (08:59→20:14)
[2023-07-17] MEDS: BACLOFEN 10 MG TABLET GT SCH ×3 (08:59→17:53)
[2023-07-17] MEDS: VITAMINS A AND D 5 GM UD PKT TP SCH (09:00)
[2023-07-17] MEDS: KETOCONAZOLE 2% SHAMPOO 120 ML BOTTLE TP SCH (09:00)
[2023-07-17] MEDS: [UNRECOGNIZED DRUG - OTHER] TOP SCH ×2 (09:00→20:20)
[2023-07-17] MEDS: ZINC OXIDE OINT 30 GM TUBE TP SCH ×2 (09:00→20:20)
[2023-07-17] MEDS: [UNRECOGNIZED DRUG - OTHER] GT SCH ×2 (09:00→20:16)
[2023-07-17] MEDS: REMEDY ESSENTIAL ZINC PASTE 113 GM TOP SCH ×2 (09:00→20:20)
[2023-07-17] MEDS: HYDROGEN PEROXIDE 3% 118 ML BOTTLE TP SCH ×2 (09:00→21:00)
[2023-07-17] MEDS: HEPARIN SODIUM,PORCINE 5,000 UNITS/ML VIAL SQ SCH ×2 (09:01→20:18)
[2023-07-17 20:02] VITALS: O2SAT 99
[2023-07-17] MEDS: OMEGA-3 FATTY ACIDS/FISH OIL CAPSULE GT SCH (20:15)
[2023-07-18] MEDS: CHOLECALCIFEROL 1,000 UNIT TABLET GT SCH (06:00)
[2023-07-18] MEDS: OMEPRAZOLE 20 MG CAPSULE.DR GT SCH (06:00)
[2023-07-18] MEDS: LORATADINE 10 MG TABLET GT SCH (06:00)
[2023-07-18] MEDS: HYDROGEN PEROXIDE 3% 118 ML BOTTLE TP SCH ×2 (07:24→23:02)
[2023-07-18 07:45] VITALS: TEMP 98.2
[2023-07-18] MEDS: DOCUSATE SODIUM 100 MG/10 ML LIQUID UDC GT SCH ×2 (08:25→20:52)
[2023-07-18] MEDS: VITAMINS A AND D 5 GM UD PKT TP SCH (08:26)
[2023-07-18] MEDS: ZINC OXIDE OINT 30 GM TUBE TP SCH ×2 (08:26→20:53)
[2023-07-18] MEDS: [UNRECOGNIZED DRUG - OTHER] TOP SCH ×2 (08:26→20:53)
[2023-07-18] MEDS: REMEDY ESSENTIAL ZINC PASTE 113 GM TOP SCH ×2 (08:26→20:53)
[2023-07-18] MEDS: BACLOFEN 10 MG TABLET GT SCH ×3 (08:26→17:57)
[2023-07-18] MEDS: [UNRECOGNIZED DRUG - OTHER] GT SCH ×2 (08:26→20:52)
[2023-07-18] MEDS: HEPARIN SODIUM,PORCINE 5,000 UNITS/ML VIAL SQ SCH ×2 (08:27→20:53)
[2023-07-18 09:00] VITALS: O2SAT 99
[2023-07-18] MEDS: JEVITY 1.2 1000 ML LIQUID GT PRN (12:09)
[2023-07-18 20:00] VITALS: TEMP 98.2
[2023-07-18] MEDS: OMEGA-3 FATTY ACIDS/FISH OIL CAPSULE GT SCH (20:52)
[2023-07-19] MEDS: JEVITY 1.2 1000 ML LIQUID GT PRN (03:52)
[2023-07-19 04:10] VITALS: O2SAT 99
[2023-07-19] MEDS: CHOLECALCIFEROL 1,000 UNIT TABLET GT SCH (05:14)
[2023-07-19] MEDS: OMEPRAZOLE 20 MG CAPSULE.DR GT SCH (05:14)
[2023-07-19] MEDS: LORATADINE 10 MG TABLET GT SCH (05:14)
[2023-07-19 07:28] VITALS: TEMP 97.7
[2023-07-19] MEDS: HEPARIN SODIUM,PORCINE 5,000 UNITS/ML VIAL SQ SCH ×2 (09:00→20:24)
[2023-07-19] MEDS: HYDROGEN PEROXIDE 3% 118 ML BOTTLE TP SCH ×2 (09:00→20:59)
[2023-07-19] MEDS: BACLOFEN 10 MG TABLET GT SCH ×3 (09:24→17:23)
[2023-07-19] MEDS: [UNRECOGNIZED DRUG - OTHER] GT SCH ×2 (09:24→20:23)
[2023-07-19] MEDS: DOCUSATE SODIUM 100 MG/10 ML LIQUID UDC GT SCH ×2 (09:24→20:23)
[2023-07-19] MEDS: [UNRECOGNIZED DRUG - OTHER] TOP SCH ×2 (09:25→20:24)
[2023-07-19] MEDS: VITAMINS A AND D 5 GM UD PKT TP SCH (09:25)
[2023-07-19] MEDS: ZINC OXIDE OINT 30 GM TUBE TP SCH ×2 (09:25→20:24)
[2023-07-19] MEDS: REMEDY ESSENTIAL ZINC PASTE 113 GM TOP SCH ×2 (09:25→20:24)
[2023-07-19 19:12] VITALS: O2SAT 99
[2023-07-19 19:53] VITALS: TEMP 97.5
[2023-07-19] MEDS: OMEGA-3 FATTY ACIDS/FISH OIL CAPSULE GT SCH (20:23)
[2023-07-20] MEDS: LORATADINE 10 MG TABLET GT SCH (05:07)
[2023-07-20] MEDS: OMEPRAZOLE 20 MG CAPSULE.DR GT SCH (05:07)
[2023-07-20] MEDS: CHOLECALCIFEROL 1,000 UNIT TABLET GT SCH (05:07)
[2023-07-20 07:25] VITALS: TEMP 97.6
[2023-07-20] MEDS: HYDROGEN PEROXIDE 3% 118 ML BOTTLE TP SCH ×2 (08:24→19:17)
[2023-07-20] MEDS: ZINC OXIDE OINT 30 GM TUBE TP SCH ×2 (08:38→20:41)
[2023-07-20] MEDS: [UNRECOGNIZED DRUG - OTHER] TOP SCH ×2 (08:38→20:41)
[2023-07-20] MEDS: [UNRECOGNIZED DRUG - OTHER] GT SCH ×2 (08:38→20:41)
[2023-07-20] MEDS: VITAMINS A AND D 5 GM UD PKT TP SCH (08:38)
[2023-07-20] MEDS: REMEDY ESSENTIAL ZINC PASTE 113 GM TOP SCH ×2 (08:38→20:41)
[2023-07-20] MEDS: BACLOFEN 10 MG TABLET GT SCH ×3 (08:38→16:32)
[2023-07-20] MEDS: DOCUSATE SODIUM 100 MG/10 ML LIQUID UDC GT SCH ×2 (08:38→20:41)
[2023-07-20] MEDS: HEPARIN SODIUM,PORCINE 5,000 UNITS/ML VIAL SQ SCH ×2 (08:42→20:41)
[2023-07-20 10:50] VITALS: O2SAT 99
[2023-07-20 20:00] VITALS: TEMP 98.4
[2023-07-20 20:25] VITALS: O2SAT 99
[2023-07-20] MEDS: OMEGA-3 FATTY ACIDS/FISH OIL CAPSULE GT SCH (20:41)
[2023-07-20] MEDS: JEVITY 1.2 1000 ML LIQUID GT PRN (22:49)
[2023-07-21] MEDS: CHOLECALCIFEROL 1,000 UNIT TABLET GT SCH (06:06)
[2023-07-21] MEDS: OMEPRAZOLE 20 MG CAPSULE.DR GT SCH (06:06)
[2023-07-21] MEDS: LORATADINE 10 MG TABLET GT SCH (06:06)
[2023-07-21 07:17] VITALS: TEMP 98.3
[2023-07-21] MEDS: HYDROGEN PEROXIDE 3% 118 ML BOTTLE TP SCH ×2 (09:01→20:46)
[2023-07-21] MEDS: BACLOFEN 10 MG TABLET GT SCH ×3 (09:07→17:33)
[2023-07-21] MEDS: DOCUSATE SODIUM 100 MG/10 ML LIQUID UDC GT SCH ×2 (09:07→20:28)
[2023-07-21] MEDS: [UNRECOGNIZED DRUG - OTHER] GT SCH ×2 (09:07→20:28)
[2023-07-21] MEDS: HEPARIN SODIUM,PORCINE 5,000 UNITS/ML VIAL SQ SCH ×2 (09:07→20:40)
[2023-07-21] MEDS: KETOCONAZOLE 2% SHAMPOO 120 ML BOTTLE TP SCH (09:08)
[2023-07-21] MEDS: [UNRECOGNIZED DRUG - OTHER] TOP SCH ×2 (09:08→20:29)
[2023-07-21] MEDS: VITAMINS A AND D 5 GM UD PKT TP SCH (09:08)
[2023-07-21] MEDS: REMEDY ESSENTIAL ZINC PASTE 113 GM TOP SCH ×2 (09:08→20:29)
[2023-07-21] MEDS: ZINC OXIDE OINT 30 GM TUBE TP SCH ×2 (09:08→20:29)
[2023-07-21 09:10] VITALS: O2SAT 99
[2023-07-21] MEDS: JEVITY 1.2 1000 ML LIQUID GT PRN (19:05)
[2023-07-21 20:00] VITALS: TEMP 98.4
[2023-07-21 20:10] VITALS: O2SAT 98
[2023-07-21] MEDS: OMEGA-3 FATTY ACIDS/FISH OIL CAPSULE GT SCH (20:28)
[2023-07-22] MEDS: LORATADINE 10 MG TABLET GT SCH (05:34)
[2023-07-22] MEDS: OMEPRAZOLE 20 MG CAPSULE.DR GT SCH (05:34)
[2023-07-22] MEDS: CHOLECALCIFEROL 1,000 UNIT TABLET GT SCH (05:34)
[2023-07-22 07:52] VITALS: TEMP 98.7
[2023-07-22] MEDS: HEPARIN SODIUM,PORCINE 5,000 UNITS/ML VIAL SQ SCH ×2 (08:45→20:17)
[2023-07-22] MEDS: [UNRECOGNIZED DRUG - OTHER] GT SCH ×2 (08:45→20:15)
[2023-07-22] MEDS: DOCUSATE SODIUM 100 MG/10 ML LIQUID UDC GT SCH ×2 (08:45→20:15)
[2023-07-22] MEDS: BACLOFEN 10 MG TABLET GT SCH ×3 (08:45→17:32)
[2023-07-22] MEDS: [UNRECOGNIZED DRUG - OTHER] TOP SCH ×2 (08:46→20:15)
[2023-07-22] MEDS: REMEDY ESSENTIAL ZINC PASTE 113 GM TOP SCH ×2 (08:46→20:15)
[2023-07-22] MEDS: VITAMINS A AND D 5 GM UD PKT TP SCH (08:46)
[2023-07-22] MEDS: ZINC OXIDE OINT 30 GM TUBE TP SCH ×2 (08:47→20:15)
[2023-07-22] MEDS: BISACODYL 10 MG SUPP.RECT RC PRN (08:51)
[2023-07-22] MEDS: HYDROGEN PEROXIDE 3% 118 ML BOTTLE TP SCH ×2 (09:19→20:44)
[2023-07-22] MEDS: JEVITY 1.2 1000 ML LIQUID GT PRN (12:55)
[2023-07-22 18:23] VITALS: O2SAT 95
[2023-07-22 20:00] VITALS: TEMP 98.6
[2023-07-22 20:10] VITALS: O2SAT 99
[2023-07-22] MEDS: OMEGA-3 FATTY ACIDS/FISH OIL CAPSULE GT SCH (20:15)
[2023-07-23] MEDS: LORATADINE 10 MG TABLET GT SCH (06:09)
[2023-07-23] MEDS: OMEPRAZOLE 20 MG CAPSULE.DR GT SCH (06:09)
[2023-07-23] MEDS: CHOLECALCIFEROL 1,000 UNIT TABLET GT SCH (06:09)
[2023-07-23 07:53] VITALS: TEMP 97
[2023-07-23] MEDS: DOCUSATE SODIUM 100 MG/10 ML LIQUID UDC GT SCH ×2 (08:26→20:08)
[2023-07-23] MEDS: BACLOFEN 10 MG TABLET GT SCH ×3 (08:31→16:58)
[2023-07-23] MEDS: [UNRECOGNIZED DRUG - OTHER] GT SCH ×2 (08:32→20:08)
[2023-07-23] MEDS: HEPARIN SODIUM,PORCINE 5,000 UNITS/ML VIAL SQ SCH ×2 (08:33→21:00)
[2023-07-23] MEDS: [UNRECOGNIZED DRUG - OTHER] TOP SCH ×2 (08:33→20:08)
[2023-07-23] MEDS: REMEDY ESSENTIAL ZINC PASTE 113 GM TOP SCH ×2 (08:34→20:22)
[2023-07-23] MEDS: VITAMINS A AND D 5 GM UD PKT TP SCH (08:34)
[2023-07-23] MEDS: ZINC OXIDE OINT 30 GM TUBE TP SCH ×2 (08:34→20:23)
[2023-07-23] MEDS: JEVITY 1.2 1000 ML LIQUID GT PRN (08:38)
[2023-07-23 09:00] VITALS: O2SAT 99
[2023-07-23] MEDS: HYDROGEN PEROXIDE 3% 118 ML BOTTLE TP SCH ×2 (09:16→21:00)
[2023-07-23 20:00] VITALS: TEMP 98.8
[2023-07-23] MEDS: OMEGA-3 FATTY ACIDS/FISH OIL CAPSULE GT SCH (20:08)
[2023-07-23 22:24] VITALS: O2SAT 99
[2023-07-24] MEDS: JEVITY 1.2 1000 ML LIQUID GT PRN (03:21)
[2023-07-24] MEDS: CHOLECALCIFEROL 1,000 UNIT TABLET GT SCH (06:23)
[2023-07-24] MEDS: OMEPRAZOLE 20 MG CAPSULE.DR GT SCH (06:23)
[2023-07-24] MEDS: LORATADINE 10 MG TABLET GT SCH (06:23)
[2023-07-24 08:00] VITALS: TEMP 97.6
[2023-07-24] MEDS: HYDROGEN PEROXIDE 3% 118 ML BOTTLE TP SCH ×2 (08:54→21:01)
[2023-07-24] MEDS: [UNRECOGNIZED DRUG - OTHER] GT SCH ×2 (09:41→21:35)
[2023-07-24] MEDS: DOCUSATE SODIUM 100 MG/10 ML LIQUID UDC GT SCH ×2 (09:41→21:35)
[2023-07-24] MEDS: BACLOFEN 10 MG TABLET GT SCH ×3 (09:41→16:29)
[2023-07-24] MEDS: HEPARIN SODIUM,PORCINE 5,000 UNITS/ML VIAL SQ SCH ×2 (09:47→21:00)
[2023-07-24] MEDS: KETOCONAZOLE 2% SHAMPOO 120 ML BOTTLE TP SCH (09:47)
[2023-07-24] MEDS: REMEDY ESSENTIAL ZINC PASTE 113 GM TOP SCH ×2 (09:47→21:35)
[2023-07-24] MEDS: VITAMINS A AND D 5 GM UD PKT TP SCH (09:47)
[2023-07-24] MEDS: [UNRECOGNIZED DRUG - OTHER] TOP SCH ×2 (09:47→21:35)
[2023-07-24] MEDS: ZINC OXIDE OINT 30 GM TUBE TP SCH ×2 (09:47→21:35)
[2023-07-24 10:40] VITALS: O2SAT 97
[2023-07-24 20:00] VITALS: TEMP 98.2
[2023-07-24 21:01] VITALS: O2SAT 99
[2023-07-24] MEDS: OMEGA-3 FATTY ACIDS/FISH OIL CAPSULE GT SCH (21:35)
[2023-07-25] MEDS: JEVITY 1.2 1000 ML LIQUID GT PRN ×2 (00:36→20:59)
[2023-07-25] MEDS: OMEPRAZOLE 20 MG CAPSULE.DR GT SCH (06:12)
[2023-07-25] MEDS: LORATADINE 10 MG TABLET GT SCH (06:12)
[2023-07-25] MEDS: CHOLECALCIFEROL 1,000 UNIT TABLET GT SCH (06:12)
[2023-07-25] MEDS: HYDROGEN PEROXIDE 3% 118 ML BOTTLE TP SCH ×2 (07:23→21:01)
[2023-07-25 07:34] VITALS: TEMP 99
[2023-07-25] MEDS: DOCUSATE SODIUM 100 MG/10 ML LIQUID UDC GT SCH ×2 (08:42→20:23)
[2023-07-25] MEDS: [UNRECOGNIZED DRUG - OTHER] GT SCH ×2 (08:43→20:25)
[2023-07-25] MEDS: BACLOFEN 10 MG TABLET GT SCH ×3 (08:43→17:08)
[2023-07-25] MEDS: HEPARIN SODIUM,PORCINE 5,000 UNITS/ML VIAL SQ SCH ×2 (08:44→20:26)
[2023-07-25] MEDS: REMEDY ESSENTIAL ZINC PASTE 113 GM TOP SCH ×2 (08:45→20:26)
[2023-07-25] MEDS: ZINC OXIDE OINT 30 GM TUBE TP SCH ×2 (08:45→20:26)
[2023-07-25] MEDS: [UNRECOGNIZED DRUG - OTHER] TOP SCH ×2 (08:45→20:26)
[2023-07-25] MEDS: VITAMINS A AND D 5 GM UD PKT TP SCH (08:45)
[2023-07-25 10:50] VITALS: O2SAT 99
[2023-07-25 19:58] VITALS: TEMP 98.2
[2023-07-25] MEDS: OMEGA-3 FATTY ACIDS/FISH OIL CAPSULE GT SCH (20:23)
[2023-07-25 21:02] VITALS: O2SAT 99
[2023-07-26] MEDS: LORATADINE 10 MG TABLET GT SCH (05:19)
[2023-07-26] MEDS: OMEPRAZOLE 20 MG CAPSULE.DR GT SCH (05:19)
[2023-07-26] MEDS: CHOLECALCIFEROL 1,000 UNIT TABLET GT SCH (05:19)
[2023-07-26 07:07] VITALS: O2SAT 99
[2023-07-26 08:00] VITALS: TEMP 98.1
[2023-07-26] MEDS: HYDROGEN PEROXIDE 3% 118 ML BOTTLE TP SCH ×2 (08:15→21:49)
[2023-07-26] MEDS: BACLOFEN 10 MG TABLET GT SCH ×3 (08:33→17:08)
[2023-07-26] MEDS: DOCUSATE SODIUM 100 MG/10 ML LIQUID UDC GT SCH (08:33)
[2023-07-26] MEDS: [UNRECOGNIZED DRUG - OTHER] GT SCH (08:35)
[2023-07-26] MEDS: HEPARIN SODIUM,PORCINE 5,000 UNITS/ML VIAL SQ SCH (08:41)
[2023-07-26] MEDS: VITAMINS A AND D 5 GM UD PKT TP SCH (08:42)
[2023-07-26] MEDS: REMEDY ESSENTIAL ZINC PASTE 113 GM TOP SCH (08:42)
[2023-07-26] MEDS: ZINC OXIDE OINT 30 GM TUBE TP SCH (08:43)
[2023-07-26] MEDS: [UNRECOGNIZED DRUG - OTHER] TOP SCH (09:00)
[2023-07-26 19:48] VITALS: O2SAT 98
[2023-07-26 20:02] VITALS: TEMP 98.5
[2023-07-27] MEDS: DOCUSATE SODIUM 100 MG/10 ML LIQUID UDC GT SCH ×3 (00:09→20:42)
[2023-07-27] MEDS: OMEGA-3 FATTY ACIDS/FISH OIL CAPSULE GT SCH ×2 (00:10→20:42)
[2023-07-27] MEDS: [UNRECOGNIZED DRUG - OTHER] GT SCH ×3 (00:10→20:42)
[2023-07-27] MEDS: [UNRECOGNIZED DRUG - OTHER] TOP SCH ×3 (00:12→20:43)
[2023-07-27] MEDS: ZINC OXIDE OINT 30 GM TUBE TP SCH ×3 (00:13→20:43)
[2023-07-27] MEDS: REMEDY ESSENTIAL ZINC PASTE 113 GM TOP SCH ×3 (00:13→20:43)
[2023-07-27] MEDS: HEPARIN SODIUM,PORCINE 5,000 UNITS/ML VIAL SQ SCH ×3 (00:18→20:46)
[2023-07-27] MEDS: LORATADINE 10 MG TABLET GT SCH (05:37)
[2023-07-27] MEDS: OMEPRAZOLE 20 MG CAPSULE.DR GT SCH (05:37)
[2023-07-27] MEDS: CHOLECALCIFEROL 1,000 UNIT TABLET GT SCH (05:38)
[2023-07-27 08:00] VITALS: TEMP 98
[2023-07-27 08:10] VITALS: O2SAT 97
[2023-07-27] MEDS: BACLOFEN 10 MG TABLET GT SCH ×3 (08:55→17:36)
[2023-07-27] MEDS: VITAMINS A AND D 5 GM UD PKT TP SCH (09:00)
[2023-07-27] MEDS: HYDROGEN PEROXIDE 3% 118 ML BOTTLE TP SCH ×2 (09:39→21:01)
[2023-07-27] MEDS: JEVITY 1.2 1000 ML LIQUID GT PRN (17:36)
[2023-07-27 19:49] VITALS: TEMP 98.2
[2023-07-27 21:30] VITALS: O2SAT 99
[2023-07-28] MEDS: CHOLECALCIFEROL 1,000 UNIT TABLET GT SCH (05:16)
[2023-07-28] MEDS: OMEPRAZOLE 20 MG CAPSULE.DR GT SCH (05:16)
[2023-07-28] MEDS: LORATADINE 10 MG TABLET GT SCH (05:16)
[2023-07-28 08:00] VITALS: TEMP 98; TEMP 98.3
[2023-07-28] MEDS: BACLOFEN 10 MG TABLET GT SCH ×3 (08:35→16:38)
[2023-07-28] MEDS: DOCUSATE SODIUM 100 MG/10 ML LIQUID UDC GT SCH ×2 (08:37→21:00)
[2023-07-28] MEDS: [UNRECOGNIZED DRUG - OTHER] GT SCH ×2 (08:38→21:00)
[2023-07-28] MEDS: HEPARIN SODIUM,PORCINE 5,000 UNITS/ML VIAL SQ SCH ×2 (08:39→21:00)
[2023-07-28 08:40] VITALS: O2SAT 99
[2023-07-28] MEDS: REMEDY ESSENTIAL ZINC PASTE 113 GM TOP SCH ×2 (08:40→21:00)
[2023-07-28] MEDS: HYDROGEN PEROXIDE 3% 118 ML BOTTLE TP SCH ×2 (08:40→20:15)
[2023-07-28] MEDS: ZINC OXIDE OINT 30 GM TUBE TP SCH ×2 (08:43→21:00)
[2023-07-28] MEDS: VITAMINS A AND D 5 GM UD PKT TP SCH (08:43)
[2023-07-28] MEDS: KETOCONAZOLE 2% SHAMPOO 120 ML BOTTLE TP SCH (08:44)
[2023-07-28] MEDS: [UNRECOGNIZED DRUG - OTHER] TOP SCH ×2 (08:45→21:00)
[2023-07-28 19:16] VITALS: O2SAT 99
[2023-07-28 20:00] VITALS: TEMP 97.8
[2023-07-28] MEDS: OMEGA-3 FATTY ACIDS/FISH OIL CAPSULE GT SCH (21:00)
[2023-07-29] MEDS: LORATADINE 10 MG TABLET GT SCH (05:45)
[2023-07-29] MEDS: CHOLECALCIFEROL 1,000 UNIT TABLET GT SCH (05:45)
[2023-07-29] MEDS: OMEPRAZOLE 20 MG CAPSULE.DR GT SCH (05:45)
[2023-07-29 06:45] VITALS: O2SAT 98
[2023-07-29 08:00] VITALS: TEMP 98.4
[2023-07-29] MEDS: REMEDY ESSENTIAL ZINC PASTE 113 GM TOP SCH ×2 (09:00→21:00)
[2023-07-29] MEDS: BACLOFEN 10 MG TABLET GT SCH ×3 (09:00→16:43)
[2023-07-29] MEDS: VITAMINS A AND D 5 GM UD PKT TP SCH (09:00)
[2023-07-29] MEDS: HYDROGEN PEROXIDE 3% 118 ML BOTTLE TP SCH ×2 (09:00→20:56)
[2023-07-29] MEDS: [UNRECOGNIZED DRUG - OTHER] GT SCH ×2 (09:00→21:00)
[2023-07-29] MEDS: DOCUSATE SODIUM 100 MG/10 ML LIQUID UDC GT SCH ×2 (09:00→21:00)
[2023-07-29] MEDS: [UNRECOGNIZED DRUG - OTHER] TOP SCH ×2 (09:00→21:00)
[2023-07-29] MEDS: ZINC OXIDE OINT 30 GM TUBE TP SCH ×2 (09:00→21:00)
[2023-07-29] MEDS: HEPARIN SODIUM,PORCINE 5,000 UNITS/ML VIAL SQ SCH ×2 (10:18→21:00)
[2023-07-29] MEDS: JEVITY 1.2 1000 ML LIQUID GT PRN (10:43)
[2023-07-29 20:05] VITALS: O2SAT 99
[2023-07-29] MEDS: OMEGA-3 FATTY ACIDS/FISH OIL CAPSULE GT SCH (21:00)
[2023-07-30] MEDS: CHOLECALCIFEROL 1,000 UNIT TABLET GT SCH (06:19)
[2023-07-30] MEDS: OMEPRAZOLE 20 MG CAPSULE.DR GT SCH (06:19)
[2023-07-30] MEDS: LORATADINE 10 MG TABLET GT SCH (06:19)
[2023-07-30] MEDS: HYDROGEN PEROXIDE 3% 118 ML BOTTLE TP SCH ×2 (08:12→21:00)
[2023-07-30 09:00] VITALS: O2SAT 98
[2023-07-30] MEDS: DOCUSATE SODIUM 100 MG/10 ML LIQUID UDC GT SCH ×2 (09:00→21:00)
[2023-07-30] MEDS: ZINC OXIDE OINT 30 GM TUBE TP SCH ×2 (09:00→21:00)
[2023-07-30] MEDS: VITAMINS A AND D 5 GM UD PKT TP SCH (09:00)
[2023-07-30] MEDS: BACLOFEN 10 MG TABLET GT SCH ×3 (09:00→16:40)
[2023-07-30] MEDS: HEPARIN SODIUM,PORCINE 5,000 UNITS/ML VIAL SQ SCH ×2 (09:00→21:00)
[2023-07-30] MEDS: [UNRECOGNIZED DRUG - OTHER] GT SCH ×2 (09:00→21:00)
[2023-07-30] MEDS: [UNRECOGNIZED DRUG - OTHER] TOP SCH ×2 (09:00→21:00)
[2023-07-30] MEDS: REMEDY ESSENTIAL ZINC PASTE 113 GM TOP SCH ×2 (09:00→21:00)
[2023-07-30 13:41] VITALS: TEMP 97.8
[2023-07-30] MEDS: OMEGA-3 FATTY ACIDS/FISH OIL CAPSULE GT SCH (21:00)
[2023-07-31 04:10] VITALS: O2SAT 99
[2023-07-31] MEDS: OMEPRAZOLE 20 MG CAPSULE.DR GT SCH (05:07)
[2023-07-31] MEDS: CHOLECALCIFEROL 1,000 UNIT TABLET GT SCH (05:07)
[2023-07-31] MEDS: LORATADINE 10 MG TABLET GT SCH (05:07)
[2023-07-31 08:08] VITALS: TEMP 98.4
[2023-07-31 08:32] VITALS: O2SAT 99
[2023-07-31] MEDS: HYDROGEN PEROXIDE 3% 118 ML BOTTLE TP SCH ×2 (09:31→21:02)
[2023-07-31] MEDS: BACLOFEN 10 MG TABLET GT SCH ×3 (09:47→17:35)
[2023-07-31] MEDS: ZINC OXIDE OINT 30 GM TUBE TP SCH ×2 (09:47→21:41)
[2023-07-31] MEDS: REMEDY ESSENTIAL ZINC PASTE 113 GM TOP SCH ×2 (09:47→21:41)
[2023-07-31] MEDS: [UNRECOGNIZED DRUG - OTHER] TOP SCH ×2 (09:47→21:41)
[2023-07-31] MEDS: [UNRECOGNIZED DRUG - OTHER] GT SCH ×2 (09:47→21:41)
[2023-07-31] MEDS: VITAMINS A AND D 5 GM UD PKT TP SCH (09:47)
[2023-07-31] MEDS: DOCUSATE SODIUM 100 MG/10 ML LIQUID UDC GT SCH ×2 (09:47→21:40)
[2023-07-31] MEDS: HEPARIN SODIUM,PORCINE 5,000 UNITS/ML VIAL SQ SCH ×2 (09:47→21:00)
[2023-07-31] MEDS: KETOCONAZOLE 2% SHAMPOO 120 ML BOTTLE TP SCH (09:47)
[2023-07-31 20:00] VITALS: TEMP 97.8
[2023-07-31 20:10] VITALS: O2SAT 98
[2023-07-31] MEDS: OMEGA-3 FATTY ACIDS/FISH OIL CAPSULE GT SCH (21:41)
[2023-08-01] MEDS: JEVITY 1.2 1000 ML LIQUID GT PRN
[2023-08-01] MEDS: CHOLECALCIFEROL 1,000 UNIT TABLET GT SCH (05:52)
[2023-08-01] MEDS: OMEPRAZOLE 20 MG CAPSULE.DR GT SCH (05:52)
[2023-08-01] MEDS: LORATADINE 10 MG TABLET GT SCH (05:52)
[2023-08-01 07:34] VITALS: TEMP 98.7
[2023-08-01] MEDS: HYDROGEN PEROXIDE 3% 118 ML BOTTLE TP SCH ×2 (08:13→19:21)
[2023-08-01 09:00] VITALS: O2SAT 98
[2023-08-01] MEDS: [UNRECOGNIZED DRUG - OTHER] TOP SCH ×2 (09:00→20:40)
[2023-08-01] MEDS: HEPARIN SODIUM,PORCINE 5,000 UNITS/ML VIAL SQ SCH ×2 (09:00→21:00)
[2023-08-01] MEDS: REMEDY ESSENTIAL ZINC PASTE 113 GM TOP SCH ×2 (09:00→20:40)
[2023-08-01] MEDS: ZINC OXIDE OINT 30 GM TUBE TP SCH ×2 (09:00→20:40)
[2023-08-01] MEDS: DOCUSATE SODIUM 100 MG/10 ML LIQUID UDC GT SCH ×2 (09:00→20:40)
[2023-08-01] MEDS: NEOMY/BACITRA/POLYMYXIN B OINT UD PACKET TP SCH ×2 (09:00→20:40)
[2023-08-01] MEDS: BACLOFEN 10 MG TABLET GT SCH ×3 (09:00→17:24)
[2023-08-01] MEDS: VITAMINS A AND D 5 GM UD PKT TP SCH (09:00)
[2023-08-01] MEDS: [UNRECOGNIZED DRUG - OTHER] GT SCH ×2 (09:00→20:40)
[2023-08-01 19:42] VITALS: TEMP 98.1
[2023-08-01] MEDS: OMEGA-3 FATTY ACIDS/FISH OIL CAPSULE GT SCH (20:40)
[2023-08-01 21:20] VITALS: O2SAT 98
[2023-08-02] MEDS: OMEPRAZOLE 20 MG CAPSULE.DR GT SCH (05:51)
[2023-08-02] MEDS: LORATADINE 10 MG TABLET GT SCH (05:51)
[2023-08-02] MEDS: CHOLECALCIFEROL 1,000 UNIT TABLET GT SCH (05:51)
[2023-08-02 07:17] VITALS: TEMP 98.8
[2023-08-02] MEDS: BACLOFEN 10 MG TABLET GT SCH ×3 (08:33→17:58)
[2023-08-02] MEDS: [UNRECOGNIZED DRUG - OTHER] TOP SCH ×2 (08:33→20:14)
[2023-08-02] MEDS: DOCUSATE SODIUM 100 MG/10 ML LIQUID UDC GT SCH ×2 (08:33→20:14)
[2023-08-02] MEDS: HEPARIN SODIUM,PORCINE 5,000 UNITS/ML VIAL SQ SCH ×2 (08:33→21:42)
[2023-08-02] MEDS: [UNRECOGNIZED DRUG - OTHER] GT SCH ×2 (08:33→20:14)
[2023-08-02] MEDS: REMEDY ESSENTIAL ZINC PASTE 113 GM TOP SCH ×2 (08:34→20:14)
[2023-08-02] MEDS: ZINC OXIDE OINT 30 GM TUBE TP SCH ×2 (08:34→20:14)
[2023-08-02] MEDS: VITAMINS A AND D 5 GM UD PKT TP SCH (08:34)
[2023-08-02] MEDS: NEOMY/BACITRA/POLYMYXIN B OINT UD PACKET TP SCH ×2 (08:34→20:14)
[2023-08-02 08:55] VITALS: O2SAT 98
[2023-08-02] MEDS: HYDROGEN PEROXIDE 3% 118 ML BOTTLE TP SCH ×2 (09:38→23:13)
[2023-08-02] MEDS: OMEGA-3 FATTY ACIDS/FISH OIL CAPSULE GT SCH (20:14)
[2023-08-02 20:42] VITALS: TEMP 98.5
[2023-08-03 02:36] VITALS: O2SAT 99
[2023-08-03] MEDS: LORATADINE 10 MG TABLET GT SCH (05:17)
[2023-08-03] MEDS: JEVITY 1.2 1000 ML LIQUID GT PRN (05:17)
[2023-08-03] MEDS: CHOLECALCIFEROL 1,000 UNIT TABLET GT SCH (05:17)
[2023-08-03] MEDS: OMEPRAZOLE 20 MG CAPSULE.DR GT SCH (05:17)
[2023-08-03 07:17] VITALS: TEMP 98.5
[2023-08-03] MEDS: HYDROGEN PEROXIDE 3% 118 ML BOTTLE TP SCH ×2 (07:26→20:44)
[2023-08-03] MEDS: REMEDY ESSENTIAL ZINC PASTE 113 GM TOP SCH ×2 (09:02→20:39)
[2023-08-03] MEDS: VITAMINS A AND D 5 GM UD PKT TP SCH (09:02)
[2023-08-03] MEDS: ZINC OXIDE OINT 30 GM TUBE TP SCH ×2 (09:02→20:39)
[2023-08-03] MEDS: NEOMY/BACITRA/POLYMYXIN B OINT UD PACKET TP SCH ×2 (09:02→20:39)
[2023-08-03] MEDS: [UNRECOGNIZED DRUG - OTHER] TOP SCH ×2 (09:02→20:39)
[2023-08-03] MEDS: DOCUSATE SODIUM 100 MG/10 ML LIQUID UDC GT SCH ×2 (09:02→20:36)
[2023-08-03] MEDS: [UNRECOGNIZED DRUG - OTHER] GT SCH ×2 (09:02→20:36)
[2023-08-03] MEDS: BACLOFEN 10 MG TABLET GT SCH ×3 (09:02→17:27)
[2023-08-03] MEDS: HEPARIN SODIUM,PORCINE 5,000 UNITS/ML VIAL SQ SCH ×2 (09:03→20:37)
[2023-08-03 10:50] VITALS: O2SAT 99
[2023-08-03 19:43] VITALS: TEMP 98.6
[2023-08-03] MEDS: OMEGA-3 FATTY ACIDS/FISH OIL CAPSULE GT SCH (20:36)
[2023-08-03 20:44] VITALS: O2SAT 99
[2023-08-04] MEDS: JEVITY 1.2 1000 ML LIQUID GT PRN ×2 (00:59→23:00)
[2023-08-04] MEDS: OMEPRAZOLE 20 MG CAPSULE.DR GT SCH (05:48)
[2023-08-04] MEDS: LORATADINE 10 MG TABLET GT SCH (05:48)
[2023-08-04] MEDS: CHOLECALCIFEROL 1,000 UNIT TABLET GT SCH (05:49)
[2023-08-04 07:26] VITALS: TEMP 98.8
[2023-08-04 09:00] VITALS: O2SAT 99
[2023-08-04] MEDS: VITAMINS A AND D 5 GM UD PKT TP SCH (09:00)
[2023-08-04] MEDS: REMEDY ESSENTIAL ZINC PASTE 113 GM TOP SCH ×2 (09:00→20:20)
[2023-08-04] MEDS: KETOCONAZOLE 2% SHAMPOO 120 ML BOTTLE TP SCH (09:00)
[2023-08-04] MEDS: DOCUSATE SODIUM 100 MG/10 ML LIQUID UDC GT SCH ×2 (09:00→20:17)
[2023-08-04] MEDS: [UNRECOGNIZED DRUG - OTHER] GT SCH ×2 (09:00→20:17)
[2023-08-04] MEDS: HYDROGEN PEROXIDE 3% 118 ML BOTTLE TP SCH ×2 (09:00→21:00)
[2023-08-04] MEDS: BACLOFEN 10 MG TABLET GT SCH ×3 (09:00→17:00)
[2023-08-04] MEDS: [UNRECOGNIZED DRUG - OTHER] TOP SCH ×2 (09:00→20:20)
[2023-08-04] MEDS: NEOMY/BACITRA/POLYMYXIN B OINT UD PACKET TP SCH ×2 (09:00→20:20)
[2023-08-04] MEDS: HEPARIN SODIUM,PORCINE 5,000 UNITS/ML VIAL SQ SCH ×2 (09:00→20:19)
[2023-08-04] MEDS: ZINC OXIDE OINT 30 GM TUBE TP SCH ×2 (10:00→20:20)
[2023-08-04 19:56] VITALS: TEMP 98
[2023-08-04] MEDS: OMEGA-3 FATTY ACIDS/FISH OIL CAPSULE GT SCH (20:17)
[2023-08-05 03:00] VITALS: O2SAT 99
[2023-08-05] MEDS: CHOLECALCIFEROL 1,000 UNIT TABLET GT SCH (05:47)
[2023-08-05] MEDS: OMEPRAZOLE 20 MG CAPSULE.DR GT SCH (05:47)
[2023-08-05] MEDS: LORATADINE 10 MG TABLET GT SCH (05:47)
[2023-08-05 07:38] VITALS: TEMP 98.7
[2023-08-05] MEDS: [UNRECOGNIZED DRUG - OTHER] GT SCH ×2 (08:25→20:26)
[2023-08-05] MEDS: BACLOFEN 10 MG TABLET GT SCH ×3 (08:25→17:33)
[2023-08-05] MEDS: DOCUSATE SODIUM 100 MG/10 ML LIQUID UDC GT SCH ×2 (08:25→20:26)
[2023-08-05] MEDS: VITAMINS A AND D 5 GM UD PKT TP SCH (08:26)
[2023-08-05] MEDS: NEOMY/BACITRA/POLYMYXIN B OINT UD PACKET TP SCH ×2 (08:26→20:28)
[2023-08-05] MEDS: HEPARIN SODIUM,PORCINE 5,000 UNITS/ML VIAL SQ SCH ×2 (08:26→20:28)
[2023-08-05] MEDS: ZINC OXIDE OINT 30 GM TUBE TP SCH ×2 (08:26→20:28)
[2023-08-05] MEDS: [UNRECOGNIZED DRUG - OTHER] TOP SCH ×2 (08:26→20:28)
[2023-08-05] MEDS: REMEDY ESSENTIAL ZINC PASTE 113 GM TOP SCH ×2 (08:26→20:28)
[2023-08-05] MEDS: HYDROGEN PEROXIDE 3% 118 ML BOTTLE TP SCH ×2 (09:42→21:00)
[2023-08-05 16:20] VITALS: O2SAT 95
[2023-08-05 20:10] VITALS: TEMP 98.3
[2023-08-05] MEDS: OMEGA-3 FATTY ACIDS/FISH OIL CAPSULE GT SCH (20:26)
[2023-08-06 00:23] VITALS: O2SAT 99
[2023-08-06] MEDS: LORATADINE 10 MG TABLET GT SCH (05:21)
[2023-08-06] MEDS: OMEPRAZOLE 20 MG CAPSULE.DR GT SCH (05:21)
[2023-08-06] MEDS: CHOLECALCIFEROL 1,000 UNIT TABLET GT SCH (05:21)
[2023-08-06 07:50] VITALS: TEMP 97.2
[2023-08-06] MEDS: DOCUSATE SODIUM 100 MG/10 ML LIQUID UDC GT SCH ×2 (08:02→21:05)
[2023-08-06] MEDS: [UNRECOGNIZED DRUG - OTHER] GT SCH ×2 (08:03→21:06)
[2023-08-06] MEDS: REMEDY ESSENTIAL ZINC PASTE 113 GM TOP SCH ×2 (08:03→21:07)
[2023-08-06] MEDS: BACLOFEN 10 MG TABLET GT SCH ×3 (08:03→16:54)
[2023-08-06] MEDS: [UNRECOGNIZED DRUG - OTHER] TOP SCH ×2 (08:03→21:07)
[2023-08-06] MEDS: NEOMY/BACITRA/POLYMYXIN B OINT UD PACKET TP SCH ×2 (08:03→21:07)
[2023-08-06] MEDS: HEPARIN SODIUM,PORCINE 5,000 UNITS/ML VIAL SQ SCH ×2 (08:03→21:10)
[2023-08-06] MEDS: ZINC OXIDE OINT 30 GM TUBE TP SCH ×2 (08:03→21:07)
[2023-08-06] MEDS: VITAMINS A AND D 5 GM UD PKT TP SCH (08:03)
[2023-08-06 08:44] VITALS: O2SAT 98
[2023-08-06] MEDS: HYDROGEN PEROXIDE 3% 118 ML BOTTLE TP SCH (09:51)
[2023-08-06] MEDS: JEVITY 1.2 1000 ML LIQUID GT PRN (18:44)
[2023-08-06 19:49] VITALS: TEMP 97.8
[2023-08-06] MEDS: OMEGA-3 FATTY ACIDS/FISH OIL CAPSULE GT SCH (21:06)
[2023-08-07] MEDS: HYDROGEN PEROXIDE 3% 118 ML BOTTLE TP SCH ×3 (01:58→21:00)
[2023-08-07 02:26] VITALS: O2SAT 97
[2023-08-07] MEDS: OMEPRAZOLE 20 MG CAPSULE.DR GT SCH (05:09)
[2023-08-07] MEDS: CHOLECALCIFEROL 1,000 UNIT TABLET GT SCH (05:09)
[2023-08-07] MEDS: LORATADINE 10 MG TABLET GT SCH (05:09)
[2023-08-07 08:00] VITALS: TEMP 98
[2023-08-07] MEDS: DOCUSATE SODIUM 100 MG/10 ML LIQUID UDC GT SCH ×2 (08:11→20:22)
[2023-08-07] MEDS: BACLOFEN 10 MG TABLET GT SCH ×3 (08:11→16:44)
[2023-08-07] MEDS: [UNRECOGNIZED DRUG - OTHER] GT SCH ×2 (08:11→20:23)
[2023-08-07] MEDS: HEPARIN SODIUM,PORCINE 5,000 UNITS/ML VIAL SQ SCH ×2 (08:12→21:41)
[2023-08-07] MEDS: KETOCONAZOLE 2% SHAMPOO 120 ML BOTTLE TP SCH (08:13)
[2023-08-07] MEDS: [UNRECOGNIZED DRUG - OTHER] TOP SCH ×2 (08:13→20:23)
[2023-08-07] MEDS: REMEDY ESSENTIAL ZINC PASTE 113 GM TOP SCH ×2 (08:13→20:23)
[2023-08-07] MEDS: ZINC OXIDE OINT 30 GM TUBE TP SCH ×2 (08:14→20:24)
[2023-08-07] MEDS: NEOMY/BACITRA/POLYMYXIN B OINT UD PACKET TP SCH ×2 (08:14→20:23)
[2023-08-07] MEDS: VITAMINS A AND D 5 GM UD PKT TP SCH (08:14)
[2023-08-07 08:18] VITALS: TEMP 98.1
[2023-08-07 10:40] VITALS: O2SAT 99
[2023-08-07] MEDS: JEVITY 1.2 1000 ML LIQUID GT PRN (12:14)
[2023-08-07] MEDS: OMEGA-3 FATTY ACIDS/FISH OIL CAPSULE GT SCH (20:22)
[2023-08-07 21:22] VITALS: O2SAT 97
[2023-08-08] MEDS: JEVITY 1.2 1000 ML LIQUID GT PRN ×2 (03:39→23:24)
[2023-08-08] MEDS: LORATADINE 10 MG TABLET GT SCH (06:20)
[2023-08-08] MEDS: CHOLECALCIFEROL 1,000 UNIT TABLET GT SCH (06:20)
[2023-08-08] MEDS: OMEPRAZOLE 20 MG CAPSULE.DR GT SCH (06:20)
[2023-08-08 07:44] VITALS: TEMP 98.1
[2023-08-08] MEDS: [UNRECOGNIZED DRUG - OTHER] GT SCH ×2 (08:17→20:33)
[2023-08-08] MEDS: BACLOFEN 10 MG TABLET GT SCH ×3 (08:17→17:17)
[2023-08-08] MEDS: DOCUSATE SODIUM 100 MG/10 ML LIQUID UDC GT SCH ×2 (08:17→20:33)
[2023-08-08] MEDS: REMEDY ESSENTIAL ZINC PASTE 113 GM TOP SCH ×2 (08:18→20:33)
[2023-08-08] MEDS: HEPARIN SODIUM,PORCINE 5,000 UNITS/ML VIAL SQ SCH ×2 (08:18→20:33)
[2023-08-08] MEDS: [UNRECOGNIZED DRUG - OTHER] TOP SCH ×2 (08:18→20:33)
[2023-08-08] MEDS: VITAMINS A AND D 5 GM UD PKT TP SCH (08:19)
[2023-08-08] MEDS: ZINC OXIDE OINT 30 GM TUBE TP SCH ×2 (08:19→20:33)
[2023-08-08] MEDS: NEOMY/BACITRA/POLYMYXIN B OINT UD PACKET TP SCH ×2 (08:19→20:33)
[2023-08-08] MEDS: HYDROGEN PEROXIDE 3% 118 ML BOTTLE TP SCH ×2 (09:00→20:41)
[2023-08-08 19:49] VITALS: TEMP 98.3
[2023-08-08] MEDS: OMEGA-3 FATTY ACIDS/FISH OIL CAPSULE GT SCH (20:33)
[2023-08-08 21:01] VITALS: O2SAT 97
[2023-08-09] MEDS: CHOLECALCIFEROL 1,000 UNIT TABLET GT SCH (05:10)
[2023-08-09] MEDS: OMEPRAZOLE 20 MG CAPSULE.DR GT SCH (05:10)
[2023-08-09] MEDS: LORATADINE 10 MG TABLET GT SCH (05:10)
[2023-08-09 07:45] VITALS: TEMP 98.2
[2023-08-09] MEDS: HYDROGEN PEROXIDE 3% 118 ML BOTTLE TP SCH ×2 (08:49→21:10)
[2023-08-09] MEDS: DOCUSATE SODIUM 100 MG/10 ML LIQUID UDC GT SCH ×2 (09:00→20:31)
[2023-08-09] MEDS: BACLOFEN 10 MG TABLET GT SCH ×3 (09:00→17:33)
[2023-08-09] MEDS: ZINC OXIDE OINT 30 GM TUBE TP SCH ×2 (09:00→20:31)
[2023-08-09] MEDS: REMEDY ESSENTIAL ZINC PASTE 113 GM TOP SCH ×2 (09:00→20:31)
[2023-08-09] MEDS: HEPARIN SODIUM,PORCINE 5,000 UNITS/ML VIAL SQ SCH ×2 (09:00→20:31)
[2023-08-09] MEDS: VITAMINS A AND D 5 GM UD PKT TP SCH (09:00)
[2023-08-09] MEDS: [UNRECOGNIZED DRUG - OTHER] GT SCH ×2 (09:00→20:31)
[2023-08-09] MEDS: [UNRECOGNIZED DRUG - OTHER] TOP SCH ×2 (09:00→20:31)
[2023-08-09] MEDS: NEOMY/BACITRA/POLYMYXIN B OINT UD PACKET TP SCH ×2 (09:00→20:31)
[2023-08-09] MEDS ORDERED: DIATR MEGLU/DIATRIZOATE SODIUM 30 ML BOTTLE ONE (10:41)
[2023-08-09] MEDS: ACETAMINOPHEN 650 MG/20 ML UDC- SA PATIENTS-PAIN ONLY GT PRN (14:51)
[2023-08-09 15:04] VITALS: O2SAT 95
[2023-08-09 19:56] VITALS: TEMP 99
[2023-08-09] MEDS: OMEGA-3 FATTY ACIDS/FISH OIL CAPSULE GT SCH (20:31)
[2023-08-09 21:10] VITALS: O2SAT 99
[2023-08-10] MEDS: JEVITY 1.2 1000 ML LIQUID GT PRN ×2 (01:10→18:17)
[2023-08-10] MEDS: CHOLECALCIFEROL 1,000 UNIT TABLET GT SCH (05:15)
[2023-08-10] MEDS: LORATADINE 10 MG TABLET GT SCH (05:15)
[2023-08-10] MEDS: OMEPRAZOLE 20 MG CAPSULE.DR GT SCH (05:15)
[2023-08-10 07:26] VITALS: TEMP 99.4
[2023-08-10] MEDS: HYDROGEN PEROXIDE 3% 118 ML BOTTLE TP SCH ×2 (07:39→22:00)
[2023-08-10] MEDS: [UNRECOGNIZED DRUG - OTHER] GT SCH ×2 (08:34→20:35)
[2023-08-10] MEDS: DOCUSATE SODIUM 100 MG/10 ML LIQUID UDC GT SCH ×2 (08:34→20:35)
[2023-08-10] MEDS: BACLOFEN 10 MG TABLET GT SCH ×3 (08:34→16:22)
[2023-08-10] MEDS: HEPARIN SODIUM,PORCINE 5,000 UNITS/ML VIAL SQ SCH ×2 (08:36→20:36)
[2023-08-10] MEDS: ZINC OXIDE OINT 30 GM TUBE TP SCH ×2 (08:38→20:36)
[2023-08-10] MEDS: REMEDY ESSENTIAL ZINC PASTE 113 GM TOP SCH ×2 (08:38→20:36)
[2023-08-10] MEDS: NEOMY/BACITRA/POLYMYXIN B OINT UD PACKET TP SCH ×2 (08:38→20:36)
[2023-08-10] MEDS: VITAMINS A AND D 5 GM UD PKT TP SCH (08:38)
[2023-08-10] MEDS: [UNRECOGNIZED DRUG - OTHER] TOP SCH ×2 (08:38→20:36)
[2023-08-10 10:40] VITALS: O2SAT 99
[2023-08-10 19:50] VITALS: TEMP 99
[2023-08-10] MEDS: OMEGA-3 FATTY ACIDS/FISH OIL CAPSULE GT SCH (20:35)
[2023-08-10 22:00] VITALS: O2SAT 99
[2023-08-11] MEDS: OMEPRAZOLE 20 MG CAPSULE.DR GT SCH (05:27)
[2023-08-11] MEDS: CHOLECALCIFEROL 1,000 UNIT TABLET GT SCH (05:27)
[2023-08-11] MEDS: LORATADINE 10 MG TABLET GT SCH (05:27)
[2023-08-11] MEDS: HYDROGEN PEROXIDE 3% 118 ML BOTTLE TP SCH ×2 (08:25→20:45)
[2023-08-11] MEDS: BACLOFEN 10 MG TABLET GT SCH ×3 (08:35→17:00)
[2023-08-11] MEDS: DOCUSATE SODIUM 100 MG/10 ML LIQUID UDC GT SCH ×2 (08:35→20:12)
[2023-08-11] MEDS: [UNRECOGNIZED DRUG - OTHER] GT SCH ×2 (08:39→20:12)
[2023-08-11] MEDS: [UNRECOGNIZED DRUG - OTHER] TOP SCH ×2 (08:40→20:13)
[2023-08-11] MEDS: KETOCONAZOLE 2% SHAMPOO 120 ML BOTTLE TP SCH (08:40)
[2023-08-11] MEDS: HEPARIN SODIUM,PORCINE 5,000 UNITS/ML VIAL SQ SCH ×2 (08:40→20:13)
[2023-08-11] MEDS: REMEDY ESSENTIAL ZINC PASTE 113 GM TOP SCH ×2 (08:40→20:13)
[2023-08-11] MEDS: VITAMINS A AND D 5 GM UD PKT TP SCH (08:40)
[2023-08-11] MEDS: ZINC OXIDE OINT 30 GM TUBE TP SCH ×2 (08:40→20:15)
[2023-08-11] MEDS: NEOMY/BACITRA/POLYMYXIN B OINT UD PACKET TP SCH ×2 (08:40→20:14)
[2023-08-11 09:00] VITALS: O2SAT 99
[2023-08-11 10:13] VITALS: TEMP 99.1
[2023-08-11 19:20] VITALS: O2SAT 99
[2023-08-11] MEDS: OMEGA-3 FATTY ACIDS/FISH OIL CAPSULE GT SCH (20:12)
[2023-08-11 20:18] VITALS: BP 118/73; TEMP 98.1; O2SAT 96
[2023-08-11] MEDS: JEVITY 1.2 1000 ML LIQUID GT PRN (22:38)
[2023-08-12] MEDS: CHOLECALCIFEROL 1,000 UNIT TABLET GT SCH (05:30)
[2023-08-12] MEDS: LORATADINE 10 MG TABLET GT SCH (05:30)
[2023-08-12] MEDS: OMEPRAZOLE 20 MG CAPSULE.DR GT SCH (05:30)
[2023-08-12 08:00] VITALS: TEMP 97.8
[2023-08-12] MEDS: [UNRECOGNIZED DRUG - OTHER] GT SCH ×2 (08:32→20:17)
[2023-08-12] MEDS: BACLOFEN 10 MG TABLET GT SCH ×3 (08:32→17:40)
[2023-08-12] MEDS: DOCUSATE SODIUM 100 MG/10 ML LIQUID UDC GT SCH ×2 (08:32→20:17)
[2023-08-12] MEDS: [UNRECOGNIZED DRUG - OTHER] TOP SCH ×2 (08:36→20:17)
[2023-08-12] MEDS: REMEDY ESSENTIAL ZINC PASTE 113 GM TOP SCH ×2 (08:36→20:18)
[2023-08-12] MEDS: VITAMINS A AND D 5 GM UD PKT TP SCH (08:36)
[2023-08-12] MEDS: HEPARIN SODIUM,PORCINE 5,000 UNITS/ML VIAL SQ SCH ×2 (08:36→20:17)
[2023-08-12] MEDS: NEOMY/BACITRA/POLYMYXIN B OINT UD PACKET TP SCH ×2 (08:36→20:18)
[2023-08-12] MEDS: ZINC OXIDE OINT 30 GM TUBE TP SCH ×2 (08:36→20:18)
[2023-08-12 08:40] VITALS: O2SAT 99
[2023-08-12] MEDS: HYDROGEN PEROXIDE 3% 118 ML BOTTLE TP SCH ×2 (09:00→21:45)
[2023-08-12 12:32] VITALS: TEMP 97.8
[2023-08-12 19:25] VITALS: O2SAT 99
[2023-08-12 19:37] VITALS: TEMP 98.4
[2023-08-12] MEDS: OMEGA-3 FATTY ACIDS/FISH OIL CAPSULE GT SCH (20:17)
[2023-08-12] MEDS: JEVITY 1.2 1000 ML LIQUID GT PRN (22:34)
[2023-08-13] MEDS: OMEPRAZOLE 20 MG CAPSULE.DR GT SCH (05:49)
[2023-08-13] MEDS: CHOLECALCIFEROL 1,000 UNIT TABLET GT SCH (05:49)
[2023-08-13] MEDS: LORATADINE 10 MG TABLET GT SCH (05:49)
[2023-08-13 08:00] VITALS: TEMP 98
[2023-08-13] MEDS: HYDROGEN PEROXIDE 3% 118 ML BOTTLE TP SCH ×2 (08:30→21:17)
[2023-08-13] MEDS: HEPARIN SODIUM,PORCINE 5,000 UNITS/ML VIAL SQ SCH ×2 (09:30→21:54)
[2023-08-13] MEDS: BACLOFEN 10 MG TABLET GT SCH ×3 (09:43→16:46)
[2023-08-13] MEDS: [UNRECOGNIZED DRUG - OTHER] GT SCH ×2 (09:43→20:49)
[2023-08-13] MEDS: DOCUSATE SODIUM 100 MG/10 ML LIQUID UDC GT SCH ×2 (09:43→20:46)
[2023-08-13] MEDS: ZINC OXIDE OINT 30 GM TUBE TP SCH ×2 (09:46→20:50)
[2023-08-13] MEDS: NEOMY/BACITRA/POLYMYXIN B OINT UD PACKET TP SCH ×2 (09:46→20:50)
[2023-08-13] MEDS: VITAMINS A AND D 5 GM UD PKT TP SCH (09:46)
[2023-08-13] MEDS: REMEDY ESSENTIAL ZINC PASTE 113 GM TOP SCH ×2 (09:46→20:50)
[2023-08-13] MEDS: [UNRECOGNIZED DRUG - OTHER] TOP SCH ×2 (09:46→20:49)
[2023-08-13 10:30] VITALS: O2SAT 97
[2023-08-13 20:22] VITALS: TEMP 98.7
[2023-08-13] MEDS: OMEGA-3 FATTY ACIDS/FISH OIL CAPSULE GT SCH (20:49)
[2023-08-13 21:19] VITALS: O2SAT 99
[2023-08-14] MEDS: LORATADINE 10 MG TABLET GT SCH (06:45)
[2023-08-14] MEDS: OMEPRAZOLE 20 MG CAPSULE.DR GT SCH (06:45)
[2023-08-14] MEDS: CHOLECALCIFEROL 1,000 UNIT TABLET GT SCH (06:45)
[2023-08-14 08:04] VITALS: TEMP 98.2
[2023-08-14] MEDS: BACLOFEN 10 MG TABLET GT SCH ×3 (08:52→16:19)
[2023-08-14] MEDS: [UNRECOGNIZED DRUG - OTHER] GT SCH ×2 (09:05→20:21)
[2023-08-14] MEDS: DOCUSATE SODIUM 100 MG/10 ML LIQUID UDC GT SCH ×2 (09:05→20:21)
[2023-08-14] MEDS: REMEDY ESSENTIAL ZINC PASTE 113 GM TOP SCH ×2 (09:07→21:00)
[2023-08-14] MEDS: [UNRECOGNIZED DRUG - OTHER] TOP SCH ×2 (09:07→21:00)
[2023-08-14] MEDS: HYDROGEN PEROXIDE 3% 118 ML BOTTLE TP SCH ×3 (09:07→20:56)
[2023-08-14] MEDS: HEPARIN SODIUM,PORCINE 5,000 UNITS/ML VIAL SQ SCH ×2 (09:07→21:00)
[2023-08-14] MEDS: NEOMY/BACITRA/POLYMYXIN B OINT UD PACKET TP SCH ×2 (09:08→21:00)
[2023-08-14] MEDS: VITAMINS A AND D 5 GM UD PKT TP SCH (09:16)
[2023-08-14] MEDS: ZINC OXIDE OINT 30 GM TUBE TP SCH ×2 (09:18→21:00)
[2023-08-14] MEDS: KETOCONAZOLE 2% SHAMPOO 120 ML BOTTLE TP SCH (09:18)
[2023-08-14 14:59] VITALS: O2SAT 95
[2023-08-14 19:46] VITALS: TEMP 98.5
[2023-08-14 19:55] VITALS: O2SAT 99
[2023-08-14] MEDS: OMEGA-3 FATTY ACIDS/FISH OIL CAPSULE GT SCH (20:21)
[2023-08-15] MEDS: OMEPRAZOLE 20 MG CAPSULE.DR GT SCH (06:00)
[2023-08-15] MEDS: CHOLECALCIFEROL 1,000 UNIT TABLET GT SCH (06:00)
[2023-08-15] MEDS: LORATADINE 10 MG TABLET GT SCH (06:00)
[2023-08-15] MEDS: DOCUSATE SODIUM 100 MG/10 ML LIQUID UDC GT SCH ×2 (08:37→20:29)
[2023-08-15] MEDS: HEPARIN SODIUM,PORCINE 5,000 UNITS/ML VIAL SQ SCH ×2 (08:37→20:29)
[2023-08-15] MEDS: [UNRECOGNIZED DRUG - OTHER] GT SCH ×2 (08:37→20:29)
[2023-08-15] MEDS: BACLOFEN 10 MG TABLET GT SCH ×3 (08:37→17:36)
[2023-08-15] MEDS: VITAMINS A AND D 5 GM UD PKT TP SCH (08:38)
[2023-08-15] MEDS: [UNRECOGNIZED DRUG - OTHER] TOP SCH ×2 (08:38→20:30)
[2023-08-15] MEDS: REMEDY ESSENTIAL ZINC PASTE 113 GM TOP SCH ×2 (08:38→20:32)
[2023-08-15] MEDS: ZINC OXIDE OINT 30 GM TUBE TP SCH ×2 (08:38→20:32)
[2023-08-15] MEDS: NEOMY/BACITRA/POLYMYXIN B OINT UD PACKET TP SCH ×2 (08:38→20:32)
[2023-08-15] MEDS: HYDROGEN PEROXIDE 3% 118 ML BOTTLE TP SCH ×2 (09:00→19:09)
[2023-08-15 10:00] VITALS: O2SAT 97
[2023-08-15 11:24] VITALS: TEMP 97.8
[2023-08-15 19:40] VITALS: O2SAT 99
[2023-08-15 19:45] VITALS: TEMP 97.9
[2023-08-15] MEDS: OMEGA-3 FATTY ACIDS/FISH OIL CAPSULE GT SCH (20:29)
[2023-08-16] MEDS: JEVITY 1.2 1000 ML LIQUID GT PRN ×2 (00:20→23:55)
[2023-08-16] MEDS: OMEPRAZOLE 20 MG CAPSULE.DR GT SCH (05:11)
[2023-08-16] MEDS: LORATADINE 10 MG TABLET GT SCH (05:11)
[2023-08-16] MEDS: CHOLECALCIFEROL 1,000 UNIT TABLET GT SCH (05:11)
[2023-08-16 08:00] VITALS: TEMP 97.8
[2023-08-16] MEDS: [UNRECOGNIZED DRUG - OTHER] GT SCH ×2 (08:44→21:00)
[2023-08-16] MEDS: BACLOFEN 10 MG TABLET GT SCH ×3 (08:44→17:53)
[2023-08-16] MEDS: DOCUSATE SODIUM 100 MG/10 ML LIQUID UDC GT SCH ×2 (08:44→21:00)
[2023-08-16] MEDS: [UNRECOGNIZED DRUG - OTHER] TOP SCH ×2 (08:45→21:00)
[2023-08-16] MEDS: ZINC OXIDE OINT 30 GM TUBE TP SCH ×2 (08:45→21:00)
[2023-08-16] MEDS: VITAMINS A AND D 5 GM UD PKT TP SCH (08:45)
[2023-08-16] MEDS: NEOMY/BACITRA/POLYMYXIN B OINT UD PACKET TP SCH ×2 (08:45→21:00)
[2023-08-16] MEDS: HEPARIN SODIUM,PORCINE 5,000 UNITS/ML VIAL SQ SCH ×2 (08:45→21:00)
[2023-08-16] MEDS: REMEDY ESSENTIAL ZINC PASTE 113 GM TOP SCH ×2 (08:45→21:00)
[2023-08-16 09:00] VITALS: O2SAT 97
[2023-08-16] MEDS: HYDROGEN PEROXIDE 3% 118 ML BOTTLE TP SCH ×2 (09:00→21:10)
[2023-08-16 19:18] VITALS: O2SAT 99
[2023-08-16 20:22] VITALS: TEMP 98.2
[2023-08-16] MEDS: OMEGA-3 FATTY ACIDS/FISH OIL CAPSULE GT SCH (21:00)
[2023-08-17] MEDS: OMEPRAZOLE 20 MG CAPSULE.DR GT SCH (05:33)
[2023-08-17] MEDS: LORATADINE 10 MG TABLET GT SCH (05:33)
[2023-08-17] MEDS: CHOLECALCIFEROL 1,000 UNIT TABLET GT SCH (05:34)
[2023-08-17] MEDS: HYDROGEN PEROXIDE 3% 118 ML BOTTLE TP SCH ×2 (09:00→19:43)
[2023-08-17] MEDS: NEOMY/BACITRA/POLYMYXIN B OINT UD PACKET TP SCH ×2 (09:00→20:04)
[2023-08-17] MEDS: HEPARIN SODIUM,PORCINE 5,000 UNITS/ML VIAL SQ SCH ×2 (09:05→20:02)
[2023-08-17] MEDS: DOCUSATE SODIUM 100 MG/10 ML LIQUID UDC GT SCH ×2 (09:09→20:00)
[2023-08-17] MEDS: [UNRECOGNIZED DRUG - OTHER] TOP SCH ×2 (09:10→20:02)
[2023-08-17] MEDS: BACLOFEN 10 MG TABLET GT SCH ×3 (09:10→17:57)
[2023-08-17] MEDS: [UNRECOGNIZED DRUG - OTHER] GT SCH ×2 (09:10→20:00)
[2023-08-17 09:12] VITALS: TEMP 97.6
[2023-08-17] MEDS: REMEDY ESSENTIAL ZINC PASTE 113 GM TOP SCH ×2 (09:13→20:04)
[2023-08-17] MEDS: ZINC OXIDE OINT 30 GM TUBE TP SCH ×2 (09:13→20:04)
[2023-08-17] MEDS: VITAMINS A AND D 5 GM UD PKT TP SCH (09:13)
[2023-08-17 10:50] VITALS: O2SAT 97
[2023-08-17] MEDS: JEVITY 1.2 1000 ML LIQUID GT PRN (18:06)
[2023-08-17 19:20] VITALS: O2SAT 97
[2023-08-17] MEDS: OMEGA-3 FATTY ACIDS/FISH OIL CAPSULE GT SCH (20:00)
[2023-08-17 20:10] VITALS: TEMP 97.8
[2023-08-18] MEDS: OMEPRAZOLE 20 MG CAPSULE.DR GT SCH (06:11)
[2023-08-18] MEDS: CHOLECALCIFEROL 1,000 UNIT TABLET GT SCH (06:11)
[2023-08-18] MEDS: LORATADINE 10 MG TABLET GT SCH (06:11)
[2023-08-18] MEDS: HYDROGEN PEROXIDE 3% 118 ML BOTTLE TP SCH ×2 (07:17→19:15)
[2023-08-18 07:29] VITALS: TEMP 97.6
[2023-08-18] MEDS: DOCUSATE SODIUM 100 MG/10 ML LIQUID UDC GT SCH ×2 (09:27→20:06)
[2023-08-18] MEDS: BACLOFEN 10 MG TABLET GT SCH ×3 (09:28→17:57)
[2023-08-18] MEDS: [UNRECOGNIZED DRUG - OTHER] TOP SCH ×2 (09:29→20:09)
[2023-08-18] MEDS: ZINC OXIDE OINT 30 GM TUBE TP SCH ×2 (09:29→20:10)
[2023-08-18] MEDS: REMEDY ESSENTIAL ZINC PASTE 113 GM TOP SCH ×2 (09:29→20:09)
[2023-08-18] MEDS: VITAMINS A AND D 5 GM UD PKT TP SCH (09:29)
[2023-08-18] MEDS: [UNRECOGNIZED DRUG - OTHER] GT SCH ×2 (09:29→20:06)
[2023-08-18] MEDS: NEOMY/BACITRA/POLYMYXIN B OINT UD PACKET TP SCH ×2 (09:29→20:09)
[2023-08-18] MEDS: KETOCONAZOLE 2% SHAMPOO 120 ML BOTTLE TP SCH (09:29)
[2023-08-18] MEDS: HEPARIN SODIUM,PORCINE 5,000 UNITS/ML VIAL SQ SCH ×2 (09:47→20:07)
[2023-08-18 12:32] VITALS: O2SAT 97
[2023-08-18 19:50] VITALS: TEMP 98.2
[2023-08-18 20:00] VITALS: O2SAT 97
[2023-08-18] MEDS: OMEGA-3 FATTY ACIDS/FISH OIL CAPSULE GT SCH (20:06)
[2023-08-18] MEDS: JEVITY 1.2 1000 ML LIQUID GT PRN (23:15)
[2023-08-19] MEDS: OMEPRAZOLE 20 MG CAPSULE.DR GT SCH (06:03)
[2023-08-19] MEDS: CHOLECALCIFEROL 1,000 UNIT TABLET GT SCH (06:03)
[2023-08-19] MEDS: LORATADINE 10 MG TABLET GT SCH (06:03)
[2023-08-19 07:42] VITALS: TEMP 98.6
[2023-08-19] MEDS: DOCUSATE SODIUM 100 MG/10 ML LIQUID UDC GT SCH ×2 (09:53→21:00)
[2023-08-19] MEDS: BACLOFEN 10 MG TABLET GT SCH ×3 (09:54→16:25)
[2023-08-19] MEDS: [UNRECOGNIZED DRUG - OTHER] GT SCH ×2 (09:54→21:00)
[2023-08-19] MEDS: REMEDY ESSENTIAL ZINC PASTE 113 GM TOP SCH ×2 (09:55→21:00)
[2023-08-19] MEDS: HYDROGEN PEROXIDE 3% 118 ML BOTTLE TP SCH ×2 (09:55→21:08)
[2023-08-19] MEDS: NEOMY/BACITRA/POLYMYXIN B OINT UD PACKET TP SCH ×2 (09:55→21:00)
[2023-08-19] MEDS: [UNRECOGNIZED DRUG - OTHER] TOP SCH ×2 (09:55→21:00)
[2023-08-19] MEDS: VITAMINS A AND D 5 GM UD PKT TP SCH (09:56)
[2023-08-19] MEDS: ZINC OXIDE OINT 30 GM TUBE TP SCH ×2 (09:56→21:00)
[2023-08-19] MEDS: HEPARIN SODIUM,PORCINE 5,000 UNITS/ML VIAL SQ SCH ×2 (10:00→21:00)
[2023-08-19 16:21] VITALS: O2SAT 95
[2023-08-19 19:49] VITALS: TEMP 98.6
[2023-08-19 20:10] VITALS: O2SAT 98
[2023-08-19] MEDS: OMEGA-3 FATTY ACIDS/FISH OIL CAPSULE GT SCH (21:00)
[2023-08-20] MEDS: JEVITY 1.2 1000 ML LIQUID GT PRN ×2 (01:00→22:00)
[2023-08-20] MEDS: LORATADINE 10 MG TABLET GT SCH (05:29)
[2023-08-20] MEDS: CHOLECALCIFEROL 1,000 UNIT TABLET GT SCH (05:29)
[2023-08-20] MEDS: OMEPRAZOLE 20 MG CAPSULE.DR GT SCH (05:29)
[2023-08-20 07:45] VITALS: TEMP 98.7
[2023-08-20 09:00] VITALS: O2SAT 97
[2023-08-20] MEDS: HYDROGEN PEROXIDE 3% 118 ML BOTTLE TP SCH ×2 (09:00→20:45)
[2023-08-20] MEDS: BACLOFEN 10 MG TABLET GT SCH ×3 (09:46→17:47)
[2023-08-20] MEDS: DOCUSATE SODIUM 100 MG/10 ML LIQUID UDC GT SCH ×2 (09:46→21:42)
[2023-08-20] MEDS: [UNRECOGNIZED DRUG - OTHER] GT SCH ×2 (09:47→21:42)
[2023-08-20] MEDS: [UNRECOGNIZED DRUG - OTHER] TOP SCH ×2 (09:47→21:43)
[2023-08-20] MEDS: REMEDY ESSENTIAL ZINC PASTE 113 GM TOP SCH ×2 (09:47→21:43)
[2023-08-20] MEDS: NEOMY/BACITRA/POLYMYXIN B OINT UD PACKET TP SCH ×2 (09:48→21:43)
[2023-08-20] MEDS: VITAMINS A AND D 5 GM UD PKT TP SCH (09:48)
[2023-08-20] MEDS: ZINC OXIDE OINT 30 GM TUBE TP SCH ×2 (09:48→21:43)
[2023-08-20] MEDS: HEPARIN SODIUM,PORCINE 5,000 UNITS/ML VIAL SQ SCH ×2 (10:03→21:49)
[2023-08-20 20:45] VITALS: O2SAT 99
[2023-08-20] MEDS: OMEGA-3 FATTY ACIDS/FISH OIL CAPSULE GT SCH (21:42)
[2023-08-20 22:30] VITALS: TEMP 98.8
[2023-08-21] MEDS: CHOLECALCIFEROL 1,000 UNIT TABLET GT SCH (06:13)
[2023-08-21] MEDS: OMEPRAZOLE 20 MG CAPSULE.DR GT SCH (06:13)
[2023-08-21] MEDS: LORATADINE 10 MG TABLET GT SCH (06:13)
[2023-08-21 07:15] VITALS: O2SAT 97
[2023-08-21 07:45] VITALS: TEMP 98.6
[2023-08-21] MEDS: DOCUSATE SODIUM 100 MG/10 ML LIQUID UDC GT SCH ×2 (08:56→20:02)
[2023-08-21] MEDS: [UNRECOGNIZED DRUG - OTHER] TOP SCH ×2 (08:57→20:02)
[2023-08-21] MEDS: BACLOFEN 10 MG TABLET GT SCH ×3 (08:57→17:34)
[2023-08-21] MEDS: [UNRECOGNIZED DRUG - OTHER] GT SCH ×2 (08:57→20:02)
[2023-08-21] MEDS: REMEDY ESSENTIAL ZINC PASTE 113 GM TOP SCH ×2 (08:57→20:02)
[2023-08-21] MEDS: HEPARIN SODIUM,PORCINE 5,000 UNITS/ML VIAL SQ SCH ×2 (09:01→21:00)
[2023-08-21] MEDS: VITAMINS A AND D 5 GM UD PKT TP SCH (09:02)
[2023-08-21] MEDS: KETOCONAZOLE 2% SHAMPOO 120 ML BOTTLE TP SCH (09:02)
[2023-08-21] MEDS: NEOMY/BACITRA/POLYMYXIN B OINT UD PACKET TP SCH ×2 (09:02→20:03)
[2023-08-21] MEDS: ZINC OXIDE OINT 30 GM TUBE TP SCH ×2 (09:02→20:03)
[2023-08-21] MEDS: HYDROGEN PEROXIDE 3% 118 ML BOTTLE TP SCH ×2 (09:10→21:00)
[2023-08-21] MEDS: JEVITY 1.2 1000 ML LIQUID GT PRN (18:37)
[2023-08-21 20:00] VITALS: TEMP 98.2
[2023-08-21] MEDS: OMEGA-3 FATTY ACIDS/FISH OIL CAPSULE GT SCH (20:02)
[2023-08-22 00:10] VITALS: O2SAT 98
[2023-08-22] MEDS: CHOLECALCIFEROL 1,000 UNIT TABLET GT SCH (05:35)
[2023-08-22] MEDS: OMEPRAZOLE 20 MG CAPSULE.DR GT SCH (05:35)
[2023-08-22] MEDS: LORATADINE 10 MG TABLET GT SCH (05:35)
[2023-08-22 07:41] VITALS: TEMP 98.5
[2023-08-22 08:20] VITALS: O2SAT 97
[2023-08-22] MEDS: DOCUSATE SODIUM 100 MG/10 ML LIQUID UDC GT SCH ×2 (08:26→20:43)
[2023-08-22] MEDS: BACLOFEN 10 MG TABLET GT SCH ×3 (08:26→17:26)
[2023-08-22] MEDS: [UNRECOGNIZED DRUG - OTHER] GT SCH ×2 (08:26→20:44)
[2023-08-22] MEDS: HEPARIN SODIUM,PORCINE 5,000 UNITS/ML VIAL SQ SCH ×2 (08:27→20:45)
[2023-08-22] MEDS: [UNRECOGNIZED DRUG - OTHER] TOP SCH ×2 (08:28→20:47)
[2023-08-22] MEDS: NEOMY/BACITRA/POLYMYXIN B OINT UD PACKET TP SCH ×2 (08:28→20:47)
[2023-08-22] MEDS: REMEDY ESSENTIAL ZINC PASTE 113 GM TOP SCH ×2 (08:28→20:47)
[2023-08-22] MEDS: VITAMINS A AND D 5 GM UD PKT TP SCH (08:29)
[2023-08-22] MEDS: ZINC OXIDE OINT 30 GM TUBE TP SCH ×2 (08:29→20:47)
[2023-08-22] MEDS: HYDROGEN PEROXIDE 3% 118 ML BOTTLE TP SCH ×2 (09:00→20:39)
[2023-08-22] MEDS: JEVITY 1.2 1000 ML LIQUID GT PRN (14:30)
[2023-08-22 19:30] VITALS: O2SAT 99
[2023-08-22 19:47] VITALS: TEMP 98.6
[2023-08-22] MEDS: OMEGA-3 FATTY ACIDS/FISH OIL CAPSULE GT SCH (20:44)
[2023-08-23] MEDS: LORATADINE 10 MG TABLET GT SCH (05:14)
[2023-08-23] MEDS: OMEPRAZOLE 20 MG CAPSULE.DR GT SCH (05:14)
[2023-08-23] MEDS: CHOLECALCIFEROL 1,000 UNIT TABLET GT SCH (05:14)
[2023-08-23 07:20] VITALS: TEMP 97.8
[2023-08-23 08:50] VITALS: O2SAT 97
[2023-08-23] MEDS: HYDROGEN PEROXIDE 3% 118 ML BOTTLE TP SCH ×2 (09:11→21:00)
[2023-08-23] MEDS: DOCUSATE SODIUM 100 MG/10 ML LIQUID UDC GT SCH ×2 (09:27→20:28)
[2023-08-23] MEDS: [UNRECOGNIZED DRUG - OTHER] GT SCH ×2 (09:29→20:28)
[2023-08-23] MEDS: BACLOFEN 10 MG TABLET GT SCH ×3 (09:29→17:47)
[2023-08-23] MEDS: [UNRECOGNIZED DRUG - OTHER] TOP SCH ×2 (09:30→20:28)
[2023-08-23] MEDS: NEOMY/BACITRA/POLYMYXIN B OINT UD PACKET TP SCH ×2 (09:30→20:28)
[2023-08-23] MEDS: REMEDY ESSENTIAL ZINC PASTE 113 GM TOP SCH ×2 (09:30→20:28)
[2023-08-23] MEDS: VITAMINS A AND D 5 GM UD PKT TP SCH (09:33)
[2023-08-23] MEDS: ZINC OXIDE OINT 30 GM TUBE TP SCH ×2 (09:35→20:29)
[2023-08-23] MEDS: HEPARIN SODIUM,PORCINE 5,000 UNITS/ML VIAL SQ SCH ×2 (09:43→20:30)
[2023-08-23] MEDS: JEVITY 1.2 1000 ML LIQUID GT PRN (11:32)
[2023-08-23 19:54] VITALS: TEMP 98.2
[2023-08-23] MEDS: OMEGA-3 FATTY ACIDS/FISH OIL CAPSULE GT SCH (20:28)
[2023-08-24 00:12] VITALS: O2SAT 98
[2023-08-24] MEDS: CHOLECALCIFEROL 1,000 UNIT TABLET GT SCH (06:13)
[2023-08-24] MEDS: OMEPRAZOLE 20 MG CAPSULE.DR GT SCH (06:13)
[2023-08-24] MEDS: LORATADINE 10 MG TABLET GT SCH (06:13)
[2023-08-24 07:18] VITALS: TEMP 98.8
[2023-08-24] MEDS: REMEDY ESSENTIAL ZINC PASTE 113 GM TOP SCH ×2 (09:00→20:39)
[2023-08-24] MEDS: NEOMY/BACITRA/POLYMYXIN B OINT UD PACKET TP SCH ×2 (09:00→20:39)
[2023-08-24] MEDS: DOCUSATE SODIUM 100 MG/10 ML LIQUID UDC GT SCH ×2 (09:00→20:38)
[2023-08-24] MEDS: VITAMINS A AND D 5 GM UD PKT TP SCH (09:00)
[2023-08-24] MEDS: HEPARIN SODIUM,PORCINE 5,000 UNITS/ML VIAL SQ SCH ×2 (09:00→21:00)
[2023-08-24] MEDS: ZINC OXIDE OINT 30 GM TUBE TP SCH ×2 (09:00→20:39)
[2023-08-24] MEDS: BACLOFEN 10 MG TABLET GT SCH ×3 (09:00→17:36)
[2023-08-24] MEDS: [UNRECOGNIZED DRUG - OTHER] GT SCH ×2 (09:00→20:39)
[2023-08-24] MEDS: [UNRECOGNIZED DRUG - OTHER] TOP SCH ×2 (09:00→20:39)
[2023-08-24] MEDS: HYDROGEN PEROXIDE 3% 118 ML BOTTLE TP SCH ×2 (09:24→21:05)
[2023-08-24 10:40] VITALS: O2SAT 98
[2023-08-24 19:45] VITALS: TEMP 98.7
[2023-08-24] MEDS: OMEGA-3 FATTY ACIDS/FISH OIL CAPSULE GT SCH (20:38)
[2023-08-24 21:06] VITALS: O2SAT 99
[2023-08-25] MEDS: JEVITY 1.2 1000 ML LIQUID GT PRN ×2 (02:00→17:53)
[2023-08-25] MEDS: LORATADINE 10 MG TABLET GT SCH (06:49)
[2023-08-25] MEDS: OMEPRAZOLE 20 MG CAPSULE.DR GT SCH (06:49)
[2023-08-25] MEDS: CHOLECALCIFEROL 1,000 UNIT TABLET GT SCH (06:49)
[2023-08-25 08:00] VITALS: TEMP 97.8
[2023-08-25] MEDS: BACLOFEN 10 MG TABLET GT SCH ×3 (09:19→16:38)
[2023-08-25] MEDS: DOCUSATE SODIUM 100 MG/10 ML LIQUID UDC GT SCH ×2 (09:19→20:07)
[2023-08-25] MEDS: HEPARIN SODIUM,PORCINE 5,000 UNITS/ML VIAL SQ SCH ×2 (09:21→21:00)
[2023-08-25] MEDS: VITAMINS A AND D 5 GM UD PKT TP SCH (09:22)
[2023-08-25] MEDS: HYDROGEN PEROXIDE 3% 118 ML BOTTLE TP SCH ×2 (09:22→20:58)
[2023-08-25] MEDS: KETOCONAZOLE 2% SHAMPOO 120 ML BOTTLE TP SCH (09:22)
[2023-08-25] MEDS: ZINC OXIDE OINT 30 GM TUBE TP SCH ×2 (09:22→20:08)
[2023-08-25] MEDS: NEOMY/BACITRA/POLYMYXIN B OINT UD PACKET TP SCH ×2 (09:22→20:07)
[2023-08-25] MEDS: REMEDY ESSENTIAL ZINC PASTE 113 GM TOP SCH ×2 (09:22→20:07)
[2023-08-25] MEDS: [UNRECOGNIZED DRUG - OTHER] TOP SCH ×2 (09:23→20:07)
[2023-08-25] MEDS: [UNRECOGNIZED DRUG - OTHER] GT SCH ×2 (09:23→20:07)
[2023-08-25 10:00] VITALS: O2SAT 97; O2SAT 98
[2023-08-25] MEDS: OMEGA-3 FATTY ACIDS/FISH OIL CAPSULE GT SCH (20:07)
[2023-08-25 20:33] VITALS: TEMP 98.5
[2023-08-25 20:58] VITALS: O2SAT 99
[2023-08-26] MEDS: CHOLECALCIFEROL 1,000 UNIT TABLET GT SCH (06:18)
[2023-08-26] MEDS: OMEPRAZOLE 20 MG CAPSULE.DR GT SCH (06:18)
[2023-08-26] MEDS: LORATADINE 10 MG TABLET GT SCH (06:18)
[2023-08-26] MEDS: DOCUSATE SODIUM 100 MG/10 ML LIQUID UDC GT SCH ×2 (08:28→21:22)
[2023-08-26] MEDS: [UNRECOGNIZED DRUG - OTHER] GT SCH ×2 (08:29→21:22)
[2023-08-26] MEDS: BACLOFEN 10 MG TABLET GT SCH ×3 (08:29→16:32)
[2023-08-26] MEDS: HEPARIN SODIUM,PORCINE 5,000 UNITS/ML VIAL SQ SCH ×2 (08:31→21:00)
[2023-08-26] MEDS: VITAMINS A AND D 5 GM UD PKT TP SCH (08:32)
[2023-08-26] MEDS: [UNRECOGNIZED DRUG - OTHER] TOP SCH ×2 (08:32→21:22)
[2023-08-26] MEDS: NEOMY/BACITRA/POLYMYXIN B OINT UD PACKET TP SCH ×2 (08:32→21:22)
[2023-08-26] MEDS: REMEDY ESSENTIAL ZINC PASTE 113 GM TOP SCH ×2 (08:32→21:22)
[2023-08-26] MEDS: ZINC OXIDE OINT 30 GM TUBE TP SCH ×2 (08:33→21:23)
[2023-08-26 09:00] VITALS: O2SAT 97
[2023-08-26] MEDS: HYDROGEN PEROXIDE 3% 118 ML BOTTLE TP SCH ×2 (09:11→20:50)
[2023-08-26 11:33] VITALS: TEMP 97.4
[2023-08-26] MEDS: JEVITY 1.2 1000 ML LIQUID GT PRN (14:26)
[2023-08-26 19:59] VITALS: TEMP 98.8
[2023-08-26 20:10] VITALS: O2SAT 98
[2023-08-26] MEDS: OMEGA-3 FATTY ACIDS/FISH OIL CAPSULE GT SCH (21:22)
[2023-08-27] MEDS: LORATADINE 10 MG TABLET GT SCH (06:36)
[2023-08-27] MEDS: OMEPRAZOLE 20 MG CAPSULE.DR GT SCH (06:36)
[2023-08-27] MEDS: CHOLECALCIFEROL 1,000 UNIT TABLET GT SCH (06:36)
[2023-08-27 08:00] VITALS: TEMP 97.8
[2023-08-27] MEDS: HYDROGEN PEROXIDE 3% 118 ML BOTTLE TP SCH ×2 (08:52→19:15)
[2023-08-27] MEDS: NEOMY/BACITRA/POLYMYXIN B OINT UD PACKET TP SCH ×2 (09:00→21:00)
[2023-08-27] MEDS: HEPARIN SODIUM,PORCINE 5,000 UNITS/ML VIAL SQ SCH ×2 (09:00→21:00)
[2023-08-27] MEDS: [UNRECOGNIZED DRUG - OTHER] TOP SCH ×2 (09:00→21:00)
[2023-08-27] MEDS: DOCUSATE SODIUM 100 MG/10 ML LIQUID UDC GT SCH ×2 (09:00→20:23)
[2023-08-27] MEDS: [UNRECOGNIZED DRUG - OTHER] GT SCH ×2 (09:00→20:23)
[2023-08-27] MEDS: REMEDY ESSENTIAL ZINC PASTE 113 GM TOP SCH ×2 (09:00→21:00)
[2023-08-27] MEDS: ZINC OXIDE OINT 30 GM TUBE TP SCH ×2 (09:00→21:00)
[2023-08-27] MEDS: BACLOFEN 10 MG TABLET GT SCH ×3 (09:00→17:26)
[2023-08-27] MEDS: VITAMINS A AND D 5 GM UD PKT TP SCH (09:00)
[2023-08-27 10:50] VITALS: O2SAT 99
[2023-08-27] MEDS: JEVITY 1.2 1000 ML LIQUID GT PRN (17:27)
[2023-08-27 20:00] VITALS: TEMP 98.4; O2SAT 98
[2023-08-27] MEDS: OMEGA-3 FATTY ACIDS/FISH OIL CAPSULE GT SCH (20:23)
[2023-08-28] MEDS: LORATADINE 10 MG TABLET GT SCH (06:04)
[2023-08-28] MEDS: OMEPRAZOLE 20 MG CAPSULE.DR GT SCH (06:04)
[2023-08-28] MEDS: CHOLECALCIFEROL 1,000 UNIT TABLET GT SCH (06:04)
[2023-08-28 08:00] VITALS: TEMP 97.8
[2023-08-28] MEDS: HYDROGEN PEROXIDE 3% 118 ML BOTTLE TP SCH ×2 (08:39→19:11)
[2023-08-28] MEDS: HEPARIN SODIUM,PORCINE 5,000 UNITS/ML VIAL SQ SCH ×2 (09:00→21:00)
[2023-08-28] MEDS: [UNRECOGNIZED DRUG - OTHER] TOP SCH ×2 (09:03→21:30)
[2023-08-28] MEDS: KETOCONAZOLE 2% SHAMPOO 120 ML BOTTLE TP SCH (09:03)
[2023-08-28] MEDS: REMEDY ESSENTIAL ZINC PASTE 113 GM TOP SCH ×2 (09:03→21:31)
[2023-08-28] MEDS: BACLOFEN 10 MG TABLET GT SCH ×3 (09:03→17:55)
[2023-08-28] MEDS: DOCUSATE SODIUM 100 MG/10 ML LIQUID UDC GT SCH ×2 (09:03→21:27)
[2023-08-28] MEDS: [UNRECOGNIZED DRUG - OTHER] GT SCH ×2 (09:03→21:30)
[2023-08-28] MEDS: VITAMINS A AND D 5 GM UD PKT TP SCH (09:04)
[2023-08-28] MEDS: NEOMY/BACITRA/POLYMYXIN B OINT UD PACKET TP SCH ×2 (09:04→21:31)
[2023-08-28] MEDS: ZINC OXIDE OINT 30 GM TUBE TP SCH ×2 (09:04→21:31)
[2023-08-28 14:30] VITALS: O2SAT 95
[2023-08-28 19:45] VITALS: O2SAT 98
[2023-08-28 20:00] VITALS: TEMP 97.9
[2023-08-28] MEDS: OMEGA-3 FATTY ACIDS/FISH OIL CAPSULE GT SCH (21:27)
[2023-08-29] MEDS: OMEPRAZOLE 20 MG CAPSULE.DR GT SCH (06:34)
[2023-08-29] MEDS: CHOLECALCIFEROL 1,000 UNIT TABLET GT SCH (06:34)
[2023-08-29] MEDS: LORATADINE 10 MG TABLET GT SCH (06:34)
[2023-08-29 07:29] VITALS: TEMP 98.3
[2023-08-29] MEDS: [UNRECOGNIZED DRUG - OTHER] GT SCH ×2 (08:49→21:32)
[2023-08-29] MEDS: DOCUSATE SODIUM 100 MG/10 ML LIQUID UDC GT SCH ×2 (08:49→21:32)
[2023-08-29] MEDS: BACLOFEN 10 MG TABLET GT SCH ×3 (08:49→17:13)
[2023-08-29] MEDS: REMEDY ESSENTIAL ZINC PASTE 113 GM TOP SCH ×2 (08:50→21:33)
[2023-08-29] MEDS: ZINC OXIDE OINT 30 GM TUBE TP SCH ×2 (08:50→21:33)
[2023-08-29] MEDS: [UNRECOGNIZED DRUG - OTHER] TOP SCH ×2 (08:50→21:33)
[2023-08-29] MEDS: VITAMINS A AND D 5 GM UD PKT TP SCH (08:50)
[2023-08-29] MEDS: HEPARIN SODIUM,PORCINE 5,000 UNITS/ML VIAL SQ SCH ×2 (09:01→21:00)
[2023-08-29 09:23] VITALS: O2SAT 99
[2023-08-29] MEDS: HYDROGEN PEROXIDE 3% 118 ML BOTTLE TP SCH ×2 (09:23→21:33)
[2023-08-29 19:48] VITALS: TEMP 97.2
[2023-08-29] MEDS: OMEGA-3 FATTY ACIDS/FISH OIL CAPSULE GT SCH (21:32)
[2023-08-30 03:20] VITALS: O2SAT 97
[2023-08-30] MEDS: LORATADINE 10 MG TABLET GT SCH (05:26)
[2023-08-30] MEDS: CHOLECALCIFEROL 1,000 UNIT TABLET GT SCH (05:26)
[2023-08-30] MEDS: OMEPRAZOLE 20 MG CAPSULE.DR GT SCH (05:26)
[2023-08-30 07:31] VITALS: TEMP 97.8
[2023-08-30] MEDS: BACLOFEN 10 MG TABLET GT SCH ×3 (08:51→17:00)
[2023-08-30] MEDS: DOCUSATE SODIUM 100 MG/10 ML LIQUID UDC GT SCH ×2 (08:51→20:22)
[2023-08-30] MEDS: [UNRECOGNIZED DRUG - OTHER] GT SCH ×2 (08:51→20:22)
[2023-08-30] MEDS: HEPARIN SODIUM,PORCINE 5,000 UNITS/ML VIAL SQ SCH ×2 (08:52→21:00)
[2023-08-30 09:00] VITALS: O2SAT 99
[2023-08-30] MEDS: HYDROGEN PEROXIDE 3% 118 ML BOTTLE TP SCH ×2 (09:07→20:23)
[2023-08-30] MEDS: VITAMINS A AND D 5 GM UD PKT TP SCH (09:10)
[2023-08-30] MEDS: ZINC OXIDE OINT 30 GM TUBE TP SCH ×2 (09:10→20:23)
[2023-08-30] MEDS: [UNRECOGNIZED DRUG - OTHER] TOP SCH ×2 (09:10→20:22)
[2023-08-30] MEDS: REMEDY ESSENTIAL ZINC PASTE 113 GM TOP SCH ×2 (09:10→20:23)
[2023-08-30] MEDS: JEVITY 1.2 1000 ML LIQUID GT PRN (13:13)
[2023-08-30 19:48] VITALS: TEMP 98
[2023-08-30] MEDS: OMEGA-3 FATTY ACIDS/FISH OIL CAPSULE GT SCH (20:22)
[2023-08-31 00:08] VITALS: O2SAT 98
[2023-08-31] MEDS: JEVITY 1.2 1000 ML LIQUID GT PRN (03:49)
[2023-08-31] MEDS: OMEPRAZOLE 20 MG CAPSULE.DR GT SCH (06:07)
[2023-08-31] MEDS: CHOLECALCIFEROL 1,000 UNIT TABLET GT SCH (06:07)
[2023-08-31] MEDS: LORATADINE 10 MG TABLET GT SCH (06:07)
[2023-08-31 07:21] VITALS: TEMP 98.3
[2023-08-31] MEDS: HYDROGEN PEROXIDE 3% 118 ML BOTTLE TP SCH ×2 (08:26→20:14)
[2023-08-31] MEDS: [UNRECOGNIZED DRUG - OTHER] GT SCH ×2 (08:52→20:14)
[2023-08-31] MEDS: BACLOFEN 10 MG TABLET GT SCH ×3 (08:52→17:30)
[2023-08-31] MEDS: DOCUSATE SODIUM 100 MG/10 ML LIQUID UDC GT SCH ×2 (08:52→20:14)
[2023-08-31] MEDS: ZINC OXIDE OINT 30 GM TUBE TP SCH ×2 (08:54→20:15)
[2023-08-31] MEDS: [UNRECOGNIZED DRUG - OTHER] TOP SCH ×2 (08:54→20:14)
[2023-08-31] MEDS: REMEDY ESSENTIAL ZINC PASTE 113 GM TOP SCH ×2 (08:54→20:14)
[2023-08-31] MEDS: VITAMINS A AND D 5 GM UD PKT TP SCH (08:54)
[2023-08-31] MEDS: HEPARIN SODIUM,PORCINE 5,000 UNITS/ML VIAL SQ SCH ×2 (08:54→21:00)
[2023-08-31 10:50] VITALS: O2SAT 99
[2023-08-31] MEDS: ACETAMINOPHEN 650 MG/20 ML UDC- SA PATIENTS-PAIN ONLY GT PRN ×2 (12:54→20:18)
[2023-08-31 19:47] VITALS: TEMP 98.1
[2023-08-31] MEDS: OMEGA-3 FATTY ACIDS/FISH OIL CAPSULE GT SCH (20:14)
[2023-08-31 21:15] VITALS: O2SAT 99
[2023-09-01] MEDS: LORATADINE 10 MG TABLET GT SCH (05:16)
[2023-09-01] MEDS: CHOLECALCIFEROL 1,000 UNIT TABLET GT SCH (05:16)
[2023-09-01] MEDS: OMEPRAZOLE 20 MG CAPSULE.DR GT SCH (05:16)
[2023-09-01 07:26] VITALS: TEMP 98.3
[2023-09-01] MEDS: BACLOFEN 10 MG TABLET GT SCH ×3 (08:38→17:31)
[2023-09-01] MEDS: [UNRECOGNIZED DRUG - OTHER] GT SCH ×2 (08:38→20:17)
[2023-09-01] MEDS: DOCUSATE SODIUM 100 MG/10 ML LIQUID UDC GT SCH ×2 (08:38→20:17)
[2023-09-01] MEDS: [UNRECOGNIZED DRUG - OTHER] TOP SCH ×2 (08:38→20:17)
[2023-09-01] MEDS: HEPARIN SODIUM,PORCINE 5,000 UNITS/ML VIAL SQ SCH ×2 (08:40→21:00)
[2023-09-01] MEDS: REMEDY ESSENTIAL ZINC PASTE 113 GM TOP SCH ×2 (08:46→20:18)
[2023-09-01] MEDS: VITAMINS A AND D 5 GM UD PKT TP SCH (08:46)
[2023-09-01] MEDS: ZINC OXIDE OINT 30 GM TUBE TP SCH ×2 (08:46→20:18)
[2023-09-01] MEDS: KETOCONAZOLE 2% SHAMPOO 120 ML BOTTLE TP SCH (08:46)
[2023-09-01 09:00] VITALS: O2SAT 99
[2023-09-01] MEDS: HYDROGEN PEROXIDE 3% 118 ML BOTTLE TP SCH ×2 (09:46→19:17)
[2023-09-01 19:51] VITALS: TEMP 98.2
[2023-09-01 20:05] VITALS: O2SAT 99
[2023-09-01] MEDS: OMEGA-3 FATTY ACIDS/FISH OIL CAPSULE GT SCH (20:17)
[2023-09-02] MEDS: OMEPRAZOLE 20 MG CAPSULE.DR GT SCH (06:05)
[2023-09-02] MEDS: LORATADINE 10 MG TABLET GT SCH (06:05)
[2023-09-02] MEDS: CHOLECALCIFEROL 1,000 UNIT TABLET GT SCH (06:05)
[2023-09-02 07:58] VITALS: TEMP 97.6
[2023-09-02] MEDS: HYDROGEN PEROXIDE 3% 118 ML BOTTLE TP SCH ×2 (09:30→19:06)
[2023-09-02] MEDS: HEPARIN SODIUM,PORCINE 5,000 UNITS/ML VIAL SQ SCH ×2 (09:31→21:00)
[2023-09-02] MEDS: BACLOFEN 10 MG TABLET GT SCH ×3 (09:34→16:13)
[2023-09-02] MEDS: DOCUSATE SODIUM 100 MG/10 ML LIQUID UDC GT SCH ×2 (09:34→20:05)
[2023-09-02] MEDS: ZINC OXIDE OINT 30 GM TUBE TP SCH ×2 (09:34→20:05)
[2023-09-02] MEDS: VITAMINS A AND D 5 GM UD PKT TP SCH (09:34)
[2023-09-02] MEDS: REMEDY ESSENTIAL ZINC PASTE 113 GM TOP SCH ×2 (09:34→20:05)
[2023-09-02] MEDS: [UNRECOGNIZED DRUG - OTHER] TOP SCH ×2 (09:34→20:05)
[2023-09-02] MEDS: [UNRECOGNIZED DRUG - OTHER] GT SCH ×2 (09:34→20:05)
[2023-09-02 13:10] VITALS: O2SAT 95; O2SAT 97
[2023-09-02 19:50] VITALS: O2SAT 99
[2023-09-02 20:00] VITALS: TEMP 97.7
[2023-09-02] MEDS: OMEGA-3 FATTY ACIDS/FISH OIL CAPSULE GT SCH (20:05)
[2023-09-03] MEDS: CHOLECALCIFEROL 1,000 UNIT TABLET GT SCH (06:01)
[2023-09-03] MEDS: LORATADINE 10 MG TABLET GT SCH (06:01)
[2023-09-03] MEDS: OMEPRAZOLE 20 MG CAPSULE.DR GT SCH (06:01)
[2023-09-03 07:29] VITALS: TEMP 98.1
[2023-09-03] MEDS: HYDROGEN PEROXIDE 3% 118 ML BOTTLE TP SCH ×2 (07:44→19:24)
[2023-09-03 07:45] VITALS: O2SAT 99
[2023-09-03] MEDS: [UNRECOGNIZED DRUG - OTHER] TOP SCH ×2 (08:48→21:00)
[2023-09-03] MEDS: REMEDY ESSENTIAL ZINC PASTE 113 GM TOP SCH ×2 (08:48→21:00)
[2023-09-03] MEDS: [UNRECOGNIZED DRUG - OTHER] GT SCH ×2 (08:48→21:00)
[2023-09-03] MEDS: VITAMINS A AND D 5 GM UD PKT TP SCH (08:48)
[2023-09-03] MEDS: DOCUSATE SODIUM 100 MG/10 ML LIQUID UDC GT SCH ×2 (08:48→21:00)
[2023-09-03] MEDS: ZINC OXIDE OINT 30 GM TUBE TP SCH ×2 (08:48→21:00)
[2023-09-03] MEDS: BACLOFEN 10 MG TABLET GT SCH ×3 (08:48→17:15)
[2023-09-03] MEDS: HEPARIN SODIUM,PORCINE 5,000 UNITS/ML VIAL SQ SCH ×2 (08:48→21:00)
[2023-09-03 19:55] VITALS: O2SAT 99
[2023-09-03 20:03] VITALS: TEMP 97.6
[2023-09-03] MEDS: ACETAMINOPHEN 650 MG/20 ML UDC- SA PATIENTS-PAIN ONLY GT PRN (20:13)
[2023-09-03] MEDS: OMEGA-3 FATTY ACIDS/FISH OIL CAPSULE GT SCH (21:00)
[2023-09-04] MEDS: JEVITY 1.2 1000 ML LIQUID GT PRN (00:49)
[2023-09-04] MEDS: LORATADINE 10 MG TABLET GT SCH (06:16)
[2023-09-04] MEDS: CHOLECALCIFEROL 1,000 UNIT TABLET GT SCH (06:16)
[2023-09-04] MEDS: OMEPRAZOLE 20 MG CAPSULE.DR GT SCH (06:16)
[2023-09-04] MEDS: DOCUSATE SODIUM 100 MG/10 ML LIQUID UDC GT SCH ×2 (08:23→20:06)
[2023-09-04] MEDS: [UNRECOGNIZED DRUG - OTHER] GT SCH ×2 (08:23→20:05)
[2023-09-04] MEDS: BACLOFEN 10 MG TABLET GT SCH ×3 (08:23→16:57)
[2023-09-04] MEDS: VITAMINS A AND D 5 GM UD PKT TP SCH (08:24)
[2023-09-04] MEDS: REMEDY ESSENTIAL ZINC PASTE 113 GM TOP SCH ×2 (08:24→21:00)
[2023-09-04] MEDS: ZINC OXIDE OINT 30 GM TUBE TP SCH ×2 (08:24→21:00)
[2023-09-04] MEDS: HEPARIN SODIUM,PORCINE 5,000 UNITS/ML VIAL SQ SCH ×2 (08:24→21:00)
[2023-09-04] MEDS: KETOCONAZOLE 2% SHAMPOO 120 ML BOTTLE TP SCH (08:24)
[2023-09-04] MEDS: [UNRECOGNIZED DRUG - OTHER] TOP SCH ×2 (08:24→21:00)
[2023-09-04] MEDS: HYDROGEN PEROXIDE 3% 118 ML BOTTLE TP SCH ×2 (09:00→21:25)
[2023-09-04 10:45] VITALS: O2SAT 98
[2023-09-04 12:33] VITALS: TEMP 98
[2023-09-04 19:25] VITALS: O2SAT 98
[2023-09-04 20:00] VITALS: TEMP 97.5
[2023-09-04] MEDS: OMEGA-3 FATTY ACIDS/FISH OIL CAPSULE GT SCH (20:06)
[2023-09-05] MEDS: OMEPRAZOLE 20 MG CAPSULE.DR GT SCH (06:28)
[2023-09-05] MEDS: LORATADINE 10 MG TABLET GT SCH (06:28)
[2023-09-05] MEDS: CHOLECALCIFEROL 1,000 UNIT TABLET GT SCH (06:28)
[2023-09-05] MEDS: ACETAMINOPHEN 650 MG/20 ML UDC- SA PATIENTS-PAIN ONLY GT PRN (06:29)
[2023-09-05 07:42] VITALS: TEMP 98.3
[2023-09-05] MEDS: [UNRECOGNIZED DRUG - OTHER] GT SCH ×2 (08:17→20:30)
[2023-09-05] MEDS: DOCUSATE SODIUM 100 MG/10 ML LIQUID UDC GT SCH ×2 (08:19→20:29)
[2023-09-05] MEDS: BACLOFEN 10 MG TABLET GT SCH ×3 (08:19→17:27)
[2023-09-05] MEDS: HEPARIN SODIUM,PORCINE 5,000 UNITS/ML VIAL SQ SCH ×2 (08:19→21:57)
[2023-09-05] MEDS: [UNRECOGNIZED DRUG - OTHER] TOP SCH ×2 (09:26→20:30)
[2023-09-05] MEDS: REMEDY ESSENTIAL ZINC PASTE 113 GM TOP SCH ×2 (09:26→20:30)
[2023-09-05] MEDS: VITAMINS A AND D 5 GM UD PKT TP SCH (09:26)
[2023-09-05] MEDS: ZINC OXIDE OINT 30 GM TUBE TP SCH ×2 (09:26→20:31)
[2023-09-05 09:30] VITALS: O2SAT 99
[2023-09-05] MEDS: HYDROGEN PEROXIDE 3% 118 ML BOTTLE TP SCH ×2 (09:47→19:04)
[2023-09-05] MEDS: JEVITY 1.2 1000 ML LIQUID GT PRN (14:36)
[2023-09-05 20:05] VITALS: TEMP 98.4
[2023-09-05] MEDS: OMEGA-3 FATTY ACIDS/FISH OIL CAPSULE GT SCH (20:29)
[2023-09-05 20:55] VITALS: O2SAT 99
[2023-09-06] MEDS: CHOLECALCIFEROL 1,000 UNIT TABLET GT SCH (05:13)
[2023-09-06] MEDS: OMEPRAZOLE 20 MG CAPSULE.DR GT SCH (05:13)
[2023-09-06] MEDS: JEVITY 1.2 1000 ML LIQUID GT PRN (05:13)
[2023-09-06] MEDS: LORATADINE 10 MG TABLET GT SCH (05:13)
[2023-09-06 07:25] VITALS: TEMP 98.8
[2023-09-06] MEDS: HYDROGEN PEROXIDE 3% 118 ML BOTTLE TP SCH ×2 (08:33→20:42)
[2023-09-06] MEDS: BACLOFEN 10 MG TABLET GT SCH ×3 (09:01→17:38)
[2023-09-06] MEDS: DOCUSATE SODIUM 100 MG/10 ML LIQUID UDC GT SCH ×2 (09:01→20:08)
[2023-09-06] MEDS: [UNRECOGNIZED DRUG - OTHER] GT SCH ×2 (09:01→20:08)
[2023-09-06] MEDS: HEPARIN SODIUM,PORCINE 5,000 UNITS/ML VIAL SQ SCH ×2 (09:03→20:10)
[2023-09-06] MEDS: REMEDY ESSENTIAL ZINC PASTE 113 GM TOP SCH ×2 (09:08→20:12)
[2023-09-06] MEDS: [UNRECOGNIZED DRUG - OTHER] TOP SCH ×2 (09:08→20:12)
[2023-09-06] MEDS: VITAMINS A AND D 5 GM UD PKT TP SCH (09:08)
[2023-09-06] MEDS: ZINC OXIDE OINT 30 GM TUBE TP SCH ×2 (09:08→20:12)
[2023-09-06 09:20] VITALS: O2SAT 99
[2023-09-06 19:52] VITALS: TEMP 97.8
[2023-09-06] MEDS: OMEGA-3 FATTY ACIDS/FISH OIL CAPSULE GT SCH (20:08)
[2023-09-06 20:42] VITALS: O2SAT 99
[2023-09-07] MEDS: JEVITY 1.2 1000 ML LIQUID GT PRN ×2 (00:40→23:00)
[2023-09-07] MEDS: CHOLECALCIFEROL 1,000 UNIT TABLET GT SCH (06:28)
[2023-09-07] MEDS: OMEPRAZOLE 20 MG CAPSULE.DR GT SCH (06:28)
[2023-09-07] MEDS: LORATADINE 10 MG TABLET GT SCH (06:28)
[2023-09-07 07:20] VITALS: TEMP 99
[2023-09-07] MEDS: VITAMINS A AND D 5 GM UD PKT TP SCH (09:00)
[2023-09-07] MEDS: ZINC OXIDE OINT 30 GM TUBE TP SCH ×2 (09:00→20:18)
[2023-09-07] MEDS: [UNRECOGNIZED DRUG - OTHER] GT SCH ×2 (09:20→20:16)
[2023-09-07] MEDS: REMEDY ESSENTIAL ZINC PASTE 113 GM TOP SCH ×2 (09:20→20:18)
[2023-09-07] MEDS: DOCUSATE SODIUM 100 MG/10 ML LIQUID UDC GT SCH ×2 (09:20→20:15)
[2023-09-07] MEDS: [UNRECOGNIZED DRUG - OTHER] TOP SCH ×2 (09:20→20:18)
[2023-09-07] MEDS: BACLOFEN 10 MG TABLET GT SCH ×3 (09:20→16:19)
[2023-09-07] MEDS: HEPARIN SODIUM,PORCINE 5,000 UNITS/ML VIAL SQ SCH ×2 (09:22→20:18)
[2023-09-07] MEDS: HYDROGEN PEROXIDE 3% 118 ML BOTTLE TP SCH ×2 (09:38→20:38)
[2023-09-07 10:40] VITALS: O2SAT 99
[2023-09-07 19:53] VITALS: TEMP 97.8
[2023-09-07] MEDS: OMEGA-3 FATTY ACIDS/FISH OIL CAPSULE GT SCH (20:16)
[2023-09-07 20:39] VITALS: O2SAT 99
[2023-09-08] MEDS: LORATADINE 10 MG TABLET GT SCH (05:34)
[2023-09-08] MEDS: OMEPRAZOLE 20 MG CAPSULE.DR GT SCH (05:34)
[2023-09-08] MEDS: CHOLECALCIFEROL 1,000 UNIT TABLET GT SCH (05:34)
[2023-09-08] MEDS: HYDROGEN PEROXIDE 3% 118 ML BOTTLE TP SCH ×2 (09:00→19:08)
[2023-09-08 09:30] VITALS: O2SAT 99
[2023-09-08] MEDS: [UNRECOGNIZED DRUG - OTHER] GT SCH ×2 (09:42→20:19)
[2023-09-08] MEDS: BACLOFEN 10 MG TABLET GT SCH ×3 (09:42→17:00)
[2023-09-08] MEDS: DOCUSATE SODIUM 100 MG/10 ML LIQUID UDC GT SCH ×2 (09:42→20:17)
[2023-09-08] MEDS: HEPARIN SODIUM,PORCINE 5,000 UNITS/ML VIAL SQ SCH ×2 (09:44→20:19)
[2023-09-08] MEDS: ZINC OXIDE OINT 30 GM TUBE TP SCH ×2 (09:45→20:19)
[2023-09-08] MEDS: REMEDY ESSENTIAL ZINC PASTE 113 GM TOP SCH ×2 (09:45→20:19)
[2023-09-08] MEDS: VITAMINS A AND D 5 GM UD PKT TP SCH (09:45)
[2023-09-08] MEDS: KETOCONAZOLE 2% SHAMPOO 120 ML BOTTLE TP SCH (09:45)
[2023-09-08] MEDS: [UNRECOGNIZED DRUG - OTHER] TOP SCH ×2 (09:45→20:19)
[2023-09-08 10:45] VITALS: TEMP 97.6
[2023-09-08] MEDS: JEVITY 1.2 1000 ML LIQUID GT PRN (18:28)
[2023-09-08 19:48] VITALS: TEMP 98.5
[2023-09-08] MEDS: OMEGA-3 FATTY ACIDS/FISH OIL CAPSULE GT SCH (20:17)
[2023-09-08 20:45] VITALS: O2SAT 99
[2023-09-09] MEDS: OMEPRAZOLE 20 MG CAPSULE.DR GT SCH (05:51)
[2023-09-09] MEDS: LORATADINE 10 MG TABLET GT SCH (05:51)
[2023-09-09] MEDS: CHOLECALCIFEROL 1,000 UNIT TABLET GT SCH (05:51)
[2023-09-09 07:42] VITALS: TEMP 98.1
[2023-09-09] MEDS: HYDROGEN PEROXIDE 3% 118 ML BOTTLE TP SCH ×2 (09:00→20:34)
[2023-09-09] MEDS: DOCUSATE SODIUM 100 MG/10 ML LIQUID UDC GT SCH ×2 (09:03→21:19)
[2023-09-09] MEDS: [UNRECOGNIZED DRUG - OTHER] GT SCH ×2 (09:03→21:19)
[2023-09-09] MEDS: BACLOFEN 10 MG TABLET GT SCH ×3 (09:03→16:38)
[2023-09-09] MEDS: VITAMINS A AND D 5 GM UD PKT TP SCH (09:05)
[2023-09-09] MEDS: REMEDY ESSENTIAL ZINC PASTE 113 GM TOP SCH ×2 (09:05→21:23)
[2023-09-09] MEDS: ZINC OXIDE OINT 30 GM TUBE TP SCH ×2 (09:05→21:23)
[2023-09-09] MEDS: [UNRECOGNIZED DRUG - OTHER] TOP SCH ×2 (09:05→21:23)
[2023-09-09] MEDS: HEPARIN SODIUM,PORCINE 5,000 UNITS/ML VIAL SQ SCH ×2 (09:05→21:22)
[2023-09-09 10:45] VITALS: O2SAT 98
[2023-09-09] MEDS: JEVITY 1.2 1000 ML LIQUID GT PRN (14:32)
[2023-09-09 19:50] VITALS: TEMP 98.8
[2023-09-09 20:34] VITALS: O2SAT 99
[2023-09-09] MEDS: OMEGA-3 FATTY ACIDS/FISH OIL CAPSULE GT SCH (21:19)
[2023-09-10] MEDS: LORATADINE 10 MG TABLET GT SCH (05:14)
[2023-09-10] MEDS: OMEPRAZOLE 20 MG CAPSULE.DR GT SCH (05:14)
[2023-09-10] MEDS: CHOLECALCIFEROL 1,000 UNIT TABLET GT SCH (05:14)
[2023-09-10 07:29] VITALS: TEMP 98
[2023-09-10] MEDS: [UNRECOGNIZED DRUG - OTHER] GT SCH ×2 (08:30→21:42)
[2023-09-10] MEDS: BACLOFEN 10 MG TABLET GT SCH ×3 (08:30→17:20)
[2023-09-10] MEDS: DOCUSATE SODIUM 100 MG/10 ML LIQUID UDC GT SCH ×2 (08:30→21:42)
[2023-09-10] MEDS: [UNRECOGNIZED DRUG - OTHER] TOP SCH ×2 (08:31→21:44)
[2023-09-10] MEDS: HEPARIN SODIUM,PORCINE 5,000 UNITS/ML VIAL SQ SCH ×2 (08:31→21:00)
[2023-09-10] MEDS: VITAMINS A AND D 5 GM UD PKT TP SCH (08:31)
[2023-09-10] MEDS: ZINC OXIDE OINT 30 GM TUBE TP SCH ×2 (08:31→21:44)
[2023-09-10] MEDS: REMEDY ESSENTIAL ZINC PASTE 113 GM TOP SCH ×2 (08:31→21:44)
[2023-09-10] MEDS: HYDROGEN PEROXIDE 3% 118 ML BOTTLE TP SCH ×2 (09:00→19:33)
[2023-09-10 10:30] VITALS: O2SAT 98
[2023-09-10 19:05] VITALS: O2SAT 99
[2023-09-10 20:33] VITALS: TEMP 97.8
[2023-09-10] MEDS: OMEGA-3 FATTY ACIDS/FISH OIL CAPSULE GT SCH (21:42)
[2023-09-11] MEDS: JEVITY 1.2 1000 ML LIQUID GT PRN ×2 (02:04→22:31)
[2023-09-11] MEDS: OMEPRAZOLE 20 MG CAPSULE.DR GT SCH (05:55)
[2023-09-11] MEDS: LORATADINE 10 MG TABLET GT SCH (05:55)
[2023-09-11] MEDS: CHOLECALCIFEROL 1,000 UNIT TABLET GT SCH (05:55)
[2023-09-11] MEDS: HYDROGEN PEROXIDE 3% 118 ML BOTTLE TP SCH ×2 (09:29→21:20)
[2023-09-11] MEDS: BACLOFEN 10 MG TABLET GT SCH ×3 (09:45→17:00)
[2023-09-11] MEDS: DOCUSATE SODIUM 100 MG/10 ML LIQUID UDC GT SCH ×2 (09:45→21:00)
[2023-09-11] MEDS: [UNRECOGNIZED DRUG - OTHER] GT SCH ×2 (09:46→21:00)
[2023-09-11] MEDS: [UNRECOGNIZED DRUG - OTHER] TOP SCH ×2 (09:47→21:00)
[2023-09-11] MEDS: REMEDY ESSENTIAL ZINC PASTE 113 GM TOP SCH ×2 (09:47→21:00)
[2023-09-11] MEDS: KETOCONAZOLE 2% SHAMPOO 120 ML BOTTLE TP SCH (09:50)
[2023-09-11] MEDS: VITAMINS A AND D 5 GM UD PKT TP SCH (09:50)
[2023-09-11] MEDS: ZINC OXIDE OINT 30 GM TUBE TP SCH ×2 (09:51→21:00)
[2023-09-11] MEDS: HEPARIN SODIUM,PORCINE 5,000 UNITS/ML VIAL SQ SCH ×2 (09:56→21:00)
[2023-09-11] MEDS: ACETAMINOPHEN 650 MG/20 ML UDC- SA PATIENTS-PAIN ONLY GT PRN (11:27)
[2023-09-11 15:48] VITALS: O2SAT 97
[2023-09-11 19:00] VITALS: O2SAT 98
[2023-09-11 20:00] VITALS: TEMP 98
[2023-09-11] MEDS: OMEGA-3 FATTY ACIDS/FISH OIL CAPSULE GT SCH (21:00)
[2023-09-12] MEDS: LORATADINE 10 MG TABLET GT SCH (05:42)
[2023-09-12] MEDS: CHOLECALCIFEROL 1,000 UNIT TABLET GT SCH (05:42)
[2023-09-12] MEDS: OMEPRAZOLE 20 MG CAPSULE.DR GT SCH (05:42)
[2023-09-12 08:00] VITALS: TEMP 98.6
[2023-09-12] MEDS: HYDROGEN PEROXIDE 3% 118 ML BOTTLE TP SCH ×2 (09:00→19:08)
[2023-09-12 09:10] VITALS: O2SAT 98
[2023-09-12] MEDS: DOCUSATE SODIUM 100 MG/10 ML LIQUID UDC GT SCH ×2 (09:30→21:22)
[2023-09-12] MEDS: BACLOFEN 10 MG TABLET GT SCH ×3 (09:31→17:00)
[2023-09-12] MEDS: [UNRECOGNIZED DRUG - OTHER] GT SCH ×2 (09:31→21:22)
[2023-09-12] MEDS: ZINC OXIDE OINT 30 GM TUBE TP SCH ×2 (09:32→21:23)
[2023-09-12] MEDS: VITAMINS A AND D 5 GM UD PKT TP SCH (09:32)
[2023-09-12] MEDS: REMEDY ESSENTIAL ZINC PASTE 113 GM TOP SCH ×2 (09:32→21:22)
[2023-09-12] MEDS: [UNRECOGNIZED DRUG - OTHER] TOP SCH ×2 (09:32→21:22)
[2023-09-12] MEDS: HEPARIN SODIUM,PORCINE 5,000 UNITS/ML VIAL SQ SCH ×2 (09:38→21:00)
[2023-09-12] MEDS: JEVITY 1.2 1000 ML LIQUID GT PRN (18:46)
[2023-09-12 19:25] VITALS: O2SAT 99
[2023-09-12 20:06] VITALS: TEMP 98.7
[2023-09-12 21:22] VITALS: O2SAT 99
[2023-09-12] MEDS: OMEGA-3 FATTY ACIDS/FISH OIL CAPSULE GT SCH (21:22)
[2023-09-13] MEDS: CHOLECALCIFEROL 1,000 UNIT TABLET GT SCH (06:40)
[2023-09-13] MEDS: LORATADINE 10 MG TABLET GT SCH (06:40)
[2023-09-13] MEDS: OMEPRAZOLE 20 MG CAPSULE.DR GT SCH (06:40)
[2023-09-13 08:00] VITALS: TEMP 98.3
[2023-09-13] MEDS: DOCUSATE SODIUM 100 MG/10 ML LIQUID UDC GT SCH ×2 (09:04→21:26)
[2023-09-13] MEDS: [UNRECOGNIZED DRUG - OTHER] GT SCH ×2 (09:04→21:27)
[2023-09-13] MEDS: BACLOFEN 10 MG TABLET GT SCH ×3 (09:04→17:06)
[2023-09-13 09:05] VITALS: O2SAT 98
[2023-09-13] MEDS: HEPARIN SODIUM,PORCINE 5,000 UNITS/ML VIAL SQ SCH ×2 (09:05→21:28)
[2023-09-13] MEDS: REMEDY ESSENTIAL ZINC PASTE 113 GM TOP SCH ×2 (09:05→21:30)
[2023-09-13] MEDS: VITAMINS A AND D 5 GM UD PKT TP SCH (09:05)
[2023-09-13] MEDS: ZINC OXIDE OINT 30 GM TUBE TP SCH ×2 (09:05→21:30)
[2023-09-13] MEDS: [UNRECOGNIZED DRUG - OTHER] TOP SCH ×2 (09:05→21:30)
[2023-09-13] MEDS: HYDROGEN PEROXIDE 3% 118 ML BOTTLE TP SCH ×2 (09:19→19:11)
[2023-09-13 19:25] VITALS: O2SAT 99
[2023-09-13 19:55] VITALS: TEMP 98.3
[2023-09-13] MEDS: OMEGA-3 FATTY ACIDS/FISH OIL CAPSULE GT SCH (21:27)
[2023-09-14] MEDS: LORATADINE 10 MG TABLET GT SCH (06:25)
[2023-09-14] MEDS: CHOLECALCIFEROL 1,000 UNIT TABLET GT SCH (06:25)
[2023-09-14] MEDS: OMEPRAZOLE 20 MG CAPSULE.DR GT SCH (06:25)
[2023-09-14] MEDS: JEVITY 1.2 1000 ML LIQUID GT PRN (06:44)
[2023-09-14 08:00] VITALS: TEMP 97.8
[2023-09-14] MEDS: BACLOFEN 10 MG TABLET GT SCH ×3 (08:24→16:59)
[2023-09-14] MEDS: [UNRECOGNIZED DRUG - OTHER] GT SCH ×2 (08:24→21:21)
[2023-09-14] MEDS: DOCUSATE SODIUM 100 MG/10 ML LIQUID UDC GT SCH ×2 (08:24→21:21)
[2023-09-14] MEDS: [UNRECOGNIZED DRUG - OTHER] TOP SCH ×2 (08:25→21:24)
[2023-09-14] MEDS: HEPARIN SODIUM,PORCINE 5,000 UNITS/ML VIAL SQ SCH ×2 (08:25→21:23)
[2023-09-14] MEDS: REMEDY ESSENTIAL ZINC PASTE 113 GM TOP SCH ×2 (08:25→21:24)
[2023-09-14] MEDS: VITAMINS A AND D 5 GM UD PKT TP SCH (08:25)
[2023-09-14] MEDS: ZINC OXIDE OINT 30 GM TUBE TP SCH ×2 (08:25→21:24)
[2023-09-14] MEDS: HYDROGEN PEROXIDE 3% 118 ML BOTTLE TP SCH ×2 (09:00→21:07)
[2023-09-14 10:45] VITALS: O2SAT 98
[2023-09-14 19:37] VITALS: TEMP 98.2
[2023-09-14 21:07] VITALS: O2SAT 99
[2023-09-14] MEDS: OMEGA-3 FATTY ACIDS/FISH OIL CAPSULE GT SCH (21:21)
[2023-09-15] MEDS: JEVITY 1.2 1000 ML LIQUID GT PRN (03:53)
[2023-09-15] MEDS: OMEPRAZOLE 20 MG CAPSULE.DR GT SCH (05:39)
[2023-09-15] MEDS: CHOLECALCIFEROL 1,000 UNIT TABLET GT SCH (05:39)
[2023-09-15] MEDS: LORATADINE 10 MG TABLET GT SCH (05:39)
[2023-09-15 07:28] VITALS: TEMP 97.6
[2023-09-15] MEDS: DOCUSATE SODIUM 100 MG/10 ML LIQUID UDC GT SCH ×2 (08:39→20:14)
[2023-09-15] MEDS: BACLOFEN 10 MG TABLET GT SCH ×3 (08:39→17:28)
[2023-09-15] MEDS: [UNRECOGNIZED DRUG - OTHER] GT SCH ×2 (08:41→20:14)
[2023-09-15] MEDS: HEPARIN SODIUM,PORCINE 5,000 UNITS/ML VIAL SQ SCH ×2 (08:43→20:15)
[2023-09-15] MEDS: [UNRECOGNIZED DRUG - OTHER] TOP SCH ×2 (08:43→20:15)
[2023-09-15] MEDS: REMEDY ESSENTIAL ZINC PASTE 113 GM TOP SCH ×2 (08:45→20:15)
[2023-09-15] MEDS: VITAMINS A AND D 5 GM UD PKT TP SCH (08:46)
[2023-09-15] MEDS: ZINC OXIDE OINT 30 GM TUBE TP SCH ×2 (08:46→20:15)
[2023-09-15] MEDS: KETOCONAZOLE 2% SHAMPOO 120 ML BOTTLE TP SCH (08:46)
[2023-09-15 09:54] VITALS: O2SAT 98
[2023-09-15] MEDS: HYDROGEN PEROXIDE 3% 118 ML BOTTLE TP SCH ×2 (09:55→20:42)
[2023-09-15 19:49] VITALS: TEMP 98.4
[2023-09-15 20:10] VITALS: O2SAT 99
[2023-09-15] MEDS: OMEGA-3 FATTY ACIDS/FISH OIL CAPSULE GT SCH (20:15)
[2023-09-16] MEDS: LORATADINE 10 MG TABLET GT SCH (06:49)
[2023-09-16] MEDS: OMEPRAZOLE 20 MG CAPSULE.DR GT SCH (06:49)
[2023-09-16] MEDS: CHOLECALCIFEROL 1,000 UNIT TABLET GT SCH (06:49)
[2023-09-16 07:49] VITALS: TEMP 98.3
[2023-09-16] MEDS: HYDROGEN PEROXIDE 3% 118 ML BOTTLE TP SCH ×2 (08:11→21:00)
[2023-09-16] MEDS: DOCUSATE SODIUM 100 MG/10 ML LIQUID UDC GT SCH ×2 (09:50→21:32)
[2023-09-16] MEDS: BACLOFEN 10 MG TABLET GT SCH ×3 (09:51→17:40)
[2023-09-16] MEDS: ZINC OXIDE OINT 30 GM TUBE TP SCH ×2 (09:51→21:33)
[2023-09-16] MEDS: [UNRECOGNIZED DRUG - OTHER] TOP SCH ×2 (09:51→21:33)
[2023-09-16] MEDS: VITAMINS A AND D 5 GM UD PKT TP SCH (09:51)
[2023-09-16] MEDS: REMEDY ESSENTIAL ZINC PASTE 113 GM TOP SCH ×2 (09:51→21:33)
[2023-09-16] MEDS: [UNRECOGNIZED DRUG - OTHER] GT SCH ×2 (09:51→21:32)
[2023-09-16] MEDS: HEPARIN SODIUM,PORCINE 5,000 UNITS/ML VIAL SQ SCH ×2 (09:53→21:33)
[2023-09-16 15:02] VITALS: O2SAT 97
[2023-09-16] MEDS: JEVITY 1.2 1000 ML LIQUID GT PRN ×2 (15:08→15:12)
[2023-09-16 19:46] VITALS: TEMP 98.1
[2023-09-16 20:05] VITALS: O2SAT 99
[2023-09-16] MEDS: OMEGA-3 FATTY ACIDS/FISH OIL CAPSULE GT SCH (21:32)
[2023-09-17] MEDS: OMEPRAZOLE 20 MG CAPSULE.DR GT SCH (05:20)
[2023-09-17] MEDS: CHOLECALCIFEROL 1,000 UNIT TABLET GT SCH (05:20)
[2023-09-17] MEDS: LORATADINE 10 MG TABLET GT SCH (05:20)
[2023-09-17 07:41] VITALS: TEMP 98.3
[2023-09-17] MEDS: HYDROGEN PEROXIDE 3% 118 ML BOTTLE TP SCH ×2 (08:10→19:09)
[2023-09-17] MEDS: DOCUSATE SODIUM 100 MG/10 ML LIQUID UDC GT SCH ×2 (08:11→20:16)
[2023-09-17] MEDS: [UNRECOGNIZED DRUG - OTHER] TOP SCH ×2 (08:12→20:16)
[2023-09-17] MEDS: REMEDY ESSENTIAL ZINC PASTE 113 GM TOP SCH ×2 (08:12→20:16)
[2023-09-17] MEDS: BACLOFEN 10 MG TABLET GT SCH ×3 (08:12→17:44)
[2023-09-17] MEDS: [UNRECOGNIZED DRUG - OTHER] GT SCH ×2 (08:12→20:16)
[2023-09-17] MEDS: HEPARIN SODIUM,PORCINE 5,000 UNITS/ML VIAL SQ SCH ×2 (08:14→21:00)
[2023-09-17] MEDS: ZINC OXIDE OINT 30 GM TUBE TP SCH ×2 (09:00→20:16)
[2023-09-17] MEDS: VITAMINS A AND D 5 GM UD PKT TP SCH (09:00)
[2023-09-17] MEDS: NEOMY/BACITRA/POLYMYXIN B OINT UD PACKET TP SCH ×2 (09:00→20:16)
[2023-09-17 10:40] VITALS: O2SAT 98
[2023-09-17] MEDS: JEVITY 1.2 1000 ML LIQUID GT PRN (13:08)
[2023-09-17 19:39] VITALS: TEMP 98.4
[2023-09-17 20:00] VITALS: O2SAT 99
[2023-09-17] MEDS: OMEGA-3 FATTY ACIDS/FISH OIL CAPSULE GT SCH (20:16)
[2023-09-18] MEDS: LORATADINE 10 MG TABLET GT SCH (05:03)
[2023-09-18] MEDS: CHOLECALCIFEROL 1,000 UNIT TABLET GT SCH (05:03)
[2023-09-18] MEDS: JEVITY 1.2 1000 ML LIQUID GT PRN ×2 (05:03→22:09)
[2023-09-18] MEDS: OMEPRAZOLE 20 MG CAPSULE.DR GT SCH (05:03)
[2023-09-18 07:41] VITALS: TEMP 97.8
[2023-09-18] MEDS: HYDROGEN PEROXIDE 3% 118 ML BOTTLE TP SCH ×2 (09:00→19:04)
[2023-09-18] MEDS: DOCUSATE SODIUM 100 MG/10 ML LIQUID UDC GT SCH ×2 (09:46→20:29)
[2023-09-18] MEDS: BACLOFEN 10 MG TABLET GT SCH ×3 (09:46→16:22)
[2023-09-18] MEDS: [UNRECOGNIZED DRUG - OTHER] GT SCH ×2 (09:46→20:29)
[2023-09-18] MEDS: HEPARIN SODIUM,PORCINE 5,000 UNITS/ML VIAL SQ SCH ×2 (09:46→20:29)
[2023-09-18] MEDS: NEOMY/BACITRA/POLYMYXIN B OINT UD PACKET TP SCH ×2 (09:47→20:29)
[2023-09-18] MEDS: REMEDY ESSENTIAL ZINC PASTE 113 GM TOP SCH ×2 (09:47→20:29)
[2023-09-18] MEDS: VITAMINS A AND D 5 GM UD PKT TP SCH (09:47)
[2023-09-18] MEDS: [UNRECOGNIZED DRUG - OTHER] TOP SCH ×2 (09:47→20:29)
[2023-09-18] MEDS: ZINC OXIDE OINT 30 GM TUBE TP SCH ×2 (09:47→20:30)
[2023-09-18] MEDS: KETOCONAZOLE 2% SHAMPOO 120 ML BOTTLE TP SCH (09:47)
[2023-09-18 10:40] VITALS: O2SAT 98
[2023-09-18 19:50] VITALS: O2SAT 99
[2023-09-18 20:19] VITALS: TEMP 98.2
[2023-09-18] MEDS: OMEGA-3 FATTY ACIDS/FISH OIL CAPSULE GT SCH (20:29)
[2023-09-18] MEDS: ACETAMINOPHEN 650 MG/20 ML UDC- SA PATIENTS-PAIN ONLY GT PRN (22:11)
[2023-09-19] MEDS: OMEPRAZOLE 20 MG CAPSULE.DR GT SCH (05:21)
[2023-09-19] MEDS: CHOLECALCIFEROL 1,000 UNIT TABLET GT SCH (05:21)
[2023-09-19] MEDS: LORATADINE 10 MG TABLET GT SCH (05:21)
[2023-09-19 07:37] VITALS: TEMP 98.9
[2023-09-19 09:00] VITALS: O2SAT 98
[2023-09-19] MEDS: DOCUSATE SODIUM 100 MG/10 ML LIQUID UDC GT SCH ×2 (09:33→20:13)
[2023-09-19] MEDS: BACLOFEN 10 MG TABLET GT SCH ×3 (09:33→17:26)
[2023-09-19] MEDS: [UNRECOGNIZED DRUG - OTHER] GT SCH ×2 (09:34→20:14)
[2023-09-19] MEDS: HEPARIN SODIUM,PORCINE 5,000 UNITS/ML VIAL SQ SCH ×2 (09:34→20:14)
[2023-09-19] MEDS: [UNRECOGNIZED DRUG - OTHER] TOP SCH ×2 (09:35→20:15)
[2023-09-19] MEDS: REMEDY ESSENTIAL ZINC PASTE 113 GM TOP SCH ×2 (09:35→20:15)
[2023-09-19] MEDS: NEOMY/BACITRA/POLYMYXIN B OINT UD PACKET TP SCH ×2 (09:36→20:15)
[2023-09-19] MEDS: ZINC OXIDE OINT 30 GM TUBE TP SCH ×2 (09:36→20:15)
[2023-09-19] MEDS: VITAMINS A AND D 5 GM UD PKT TP SCH (09:36)
[2023-09-19] MEDS: HYDROGEN PEROXIDE 3% 118 ML BOTTLE TP SCH ×2 (09:52→21:09)
[2023-09-19] MEDS: JEVITY 1.2 1000 ML LIQUID GT PRN (17:26)
[2023-09-19 19:31] VITALS: O2SAT 99
[2023-09-19 19:55] VITALS: TEMP 98.8
[2023-09-19] MEDS: OMEGA-3 FATTY ACIDS/FISH OIL CAPSULE GT SCH (20:14)
[2023-09-20] MEDS: OMEPRAZOLE 20 MG CAPSULE.DR GT SCH (05:08)
[2023-09-20] MEDS: CHOLECALCIFEROL 1,000 UNIT TABLET GT SCH (05:08)
[2023-09-20] MEDS: LORATADINE 10 MG TABLET GT SCH (05:08)
[2023-09-20 07:26] VITALS: TEMP 98.6
[2023-09-20] MEDS: HYDROGEN PEROXIDE 3% 118 ML BOTTLE TP SCH ×2 (08:44→19:03)
[2023-09-20] MEDS: [UNRECOGNIZED DRUG - OTHER] GT SCH ×2 (09:03→20:28)
[2023-09-20] MEDS: BACLOFEN 10 MG TABLET GT SCH ×3 (09:03→17:09)
[2023-09-20] MEDS: DOCUSATE SODIUM 100 MG/10 ML LIQUID UDC GT SCH ×2 (09:03→20:28)
[2023-09-20] MEDS: HEPARIN SODIUM,PORCINE 5,000 UNITS/ML VIAL SQ SCH ×2 (09:05→21:00)
[2023-09-20] MEDS: REMEDY ESSENTIAL ZINC PASTE 113 GM TOP SCH ×2 (09:05→20:28)
[2023-09-20] MEDS: ZINC OXIDE OINT 30 GM TUBE TP SCH ×2 (09:05→20:28)
[2023-09-20] MEDS: VITAMINS A AND D 5 GM UD PKT TP SCH (09:05)
[2023-09-20] MEDS: [UNRECOGNIZED DRUG - OTHER] TOP SCH ×2 (09:05→20:28)
[2023-09-20] MEDS: NEOMY/BACITRA/POLYMYXIN B OINT UD PACKET TP SCH ×3 (09:05→20:28)
[2023-09-20 09:10] VITALS: O2SAT 98
[2023-09-20 19:25] VITALS: O2SAT 99
[2023-09-20 19:41] VITALS: TEMP 98.9
[2023-09-20] MEDS: OMEGA-3 FATTY ACIDS/FISH OIL CAPSULE GT SCH (20:28)
[2023-09-20] MEDS: ACETAMINOPHEN 650 MG/20 ML UDC- SA PATIENTS-PAIN ONLY GT PRN (20:28)
[2023-09-21] MEDS: LORATADINE 10 MG TABLET GT SCH (06:45)
[2023-09-21] MEDS: CHOLECALCIFEROL 1,000 UNIT TABLET GT SCH (06:45)
[2023-09-21] MEDS: OMEPRAZOLE 20 MG CAPSULE.DR GT SCH (06:45)
[2023-09-21] MEDS: HYDROGEN PEROXIDE 3% 118 ML BOTTLE TP SCH ×2 (07:23→19:05)
[2023-09-21 08:49] VITALS: TEMP 99
[2023-09-21] MEDS: BACLOFEN 10 MG TABLET GT SCH ×3 (09:13→17:18)
[2023-09-21] MEDS: [UNRECOGNIZED DRUG - OTHER] GT SCH ×2 (09:13→20:18)
[2023-09-21] MEDS: DOCUSATE SODIUM 100 MG/10 ML LIQUID UDC GT SCH ×2 (09:13→20:18)
[2023-09-21] MEDS: HEPARIN SODIUM,PORCINE 5,000 UNITS/ML VIAL SQ SCH ×2 (09:14→20:18)
[2023-09-21] MEDS: ZINC OXIDE OINT 30 GM TUBE TP SCH ×2 (09:15→20:19)
[2023-09-21] MEDS: VITAMINS A AND D 5 GM UD PKT TP SCH (09:15)
[2023-09-21] MEDS: [UNRECOGNIZED DRUG - OTHER] TOP SCH ×2 (09:15→20:18)
[2023-09-21] MEDS: NEOMY/BACITRA/POLYMYXIN B OINT UD PACKET TP SCH ×4 (09:15→20:19)
[2023-09-21] MEDS: REMEDY ESSENTIAL ZINC PASTE 113 GM TOP SCH ×2 (09:15→20:18)
[2023-09-21 10:40] VITALS: O2SAT 98
[2023-09-21 19:29] VITALS: TEMP 99
[2023-09-21 19:50] VITALS: O2SAT 99
[2023-09-21] MEDS: OMEGA-3 FATTY ACIDS/FISH OIL CAPSULE GT SCH (20:18)
[2023-09-22] MEDS: LORATADINE 10 MG TABLET GT SCH (05:19)
[2023-09-22] MEDS: CHOLECALCIFEROL 1,000 UNIT TABLET GT SCH (05:19)
[2023-09-22] MEDS: OMEPRAZOLE 20 MG CAPSULE.DR GT SCH (05:19)
[2023-09-22 07:33] VITALS: TEMP 98.4
[2023-09-22 09:00] VITALS: O2SAT 98
[2023-09-22] MEDS: HYDROGEN PEROXIDE 3% 118 ML BOTTLE TP SCH ×2 (09:28→19:21)
[2023-09-22] MEDS: BACLOFEN 10 MG TABLET GT SCH ×3 (09:48→16:25)
[2023-09-22] MEDS: DOCUSATE SODIUM 100 MG/10 ML LIQUID UDC GT SCH ×2 (09:48→20:17)
[2023-09-22] MEDS: [UNRECOGNIZED DRUG - OTHER] TOP SCH ×2 (09:49→20:17)
[2023-09-22] MEDS: [UNRECOGNIZED DRUG - OTHER] GT SCH ×2 (09:49→20:17)
[2023-09-22] MEDS: NEOMY/BACITRA/POLYMYXIN B OINT UD PACKET TP SCH ×4 (09:50→20:17)
[2023-09-22] MEDS: KETOCONAZOLE 2% SHAMPOO 120 ML BOTTLE TP SCH (09:50)
[2023-09-22] MEDS: VITAMINS A AND D 5 GM UD PKT TP SCH (09:51)
[2023-09-22] MEDS: REMEDY ESSENTIAL ZINC PASTE 113 GM TOP SCH ×2 (09:51→20:17)
[2023-09-22] MEDS: ZINC OXIDE OINT 30 GM TUBE TP SCH ×2 (09:51→20:17)
[2023-09-22] MEDS: HEPARIN SODIUM,PORCINE 5,000 UNITS/ML VIAL SQ SCH ×2 (09:55→21:00)
[2023-09-22 19:53] VITALS: TEMP 98.8
[2023-09-22 19:55] VITALS: O2SAT 99
[2023-09-22] MEDS: OMEGA-3 FATTY ACIDS/FISH OIL CAPSULE GT SCH (20:17)
[2023-09-23] MEDS: LORATADINE 10 MG TABLET GT SCH (05:31)
[2023-09-23] MEDS: CHOLECALCIFEROL 1,000 UNIT TABLET GT SCH (05:31)
[2023-09-23] MEDS: JEVITY 1.2 1000 ML LIQUID GT PRN ×2 (05:31→20:44)
[2023-09-23] MEDS: OMEPRAZOLE 20 MG CAPSULE.DR GT SCH (05:31)
[2023-09-23 07:39] VITALS: TEMP 98.6
[2023-09-23] MEDS: BACLOFEN 10 MG TABLET GT SCH ×3 (09:00→16:28)
[2023-09-23] MEDS: NEOMY/BACITRA/POLYMYXIN B OINT UD PACKET TP SCH ×4 (09:00→20:44)
[2023-09-23] MEDS: REMEDY ESSENTIAL ZINC PASTE 113 GM TOP SCH ×2 (09:00→20:44)
[2023-09-23] MEDS: VITAMINS A AND D 5 GM UD PKT TP SCH (09:00)
[2023-09-23] MEDS: [UNRECOGNIZED DRUG - OTHER] GT SCH ×2 (09:00→20:43)
[2023-09-23] MEDS: HYDROGEN PEROXIDE 3% 118 ML BOTTLE TP SCH ×2 (09:00→19:06)
[2023-09-23] MEDS: [UNRECOGNIZED DRUG - OTHER] TOP SCH ×2 (09:00→20:43)
[2023-09-23] MEDS: DOCUSATE SODIUM 100 MG/10 ML LIQUID UDC GT SCH ×2 (09:00→20:43)
[2023-09-23] MEDS: HEPARIN SODIUM,PORCINE 5,000 UNITS/ML VIAL SQ SCH ×2 (09:00→20:52)
[2023-09-23] MEDS: ZINC OXIDE OINT 30 GM TUBE TP SCH ×2 (09:00→20:44)
[2023-09-23 10:45] VITALS: O2SAT 98
[2023-09-23 20:00] VITALS: TEMP 97.8
[2023-09-23] MEDS: OMEGA-3 FATTY ACIDS/FISH OIL CAPSULE GT SCH (20:43)
[2023-09-23 21:05] VITALS: O2SAT 99
[2023-09-24] MEDS: CHOLECALCIFEROL 1,000 UNIT TABLET GT SCH (05:19)
[2023-09-24] MEDS: LORATADINE 10 MG TABLET GT SCH (05:19)
[2023-09-24] MEDS: OMEPRAZOLE 20 MG CAPSULE.DR GT SCH (05:19)
[2023-09-24] MEDS: HYDROGEN PEROXIDE 3% 118 ML BOTTLE TP SCH ×2 (07:30→20:45)
[2023-09-24 07:32] VITALS: TEMP 98.1
[2023-09-24] MEDS: DOCUSATE SODIUM 100 MG/10 ML LIQUID UDC GT SCH ×2 (08:54→20:37)
[2023-09-24] MEDS: BACLOFEN 10 MG TABLET GT SCH ×3 (08:55→17:03)
[2023-09-24] MEDS: [UNRECOGNIZED DRUG - OTHER] GT SCH ×2 (08:55→20:38)
[2023-09-24] MEDS: HEPARIN SODIUM,PORCINE 5,000 UNITS/ML VIAL SQ SCH ×2 (08:59→21:00)
[2023-09-24] MEDS: REMEDY ESSENTIAL ZINC PASTE 113 GM TOP SCH ×2 (09:00→20:38)
[2023-09-24] MEDS: [UNRECOGNIZED DRUG - OTHER] TOP SCH ×2 (09:00→20:38)
[2023-09-24] MEDS: NEOMY/BACITRA/POLYMYXIN B OINT UD PACKET TP SCH ×2 (09:00→20:38)
[2023-09-24] MEDS: VITAMINS A AND D 5 GM UD PKT TP SCH (09:00)
[2023-09-24] MEDS: ZINC OXIDE OINT 30 GM TUBE TP SCH ×2 (09:00→20:38)
[2023-09-24 10:40] VITALS: O2SAT 98; O2SAT 99
[2023-09-24 20:00] VITALS: TEMP 97.8
[2023-09-24 20:10] VITALS: O2SAT 99
[2023-09-24] MEDS: OMEGA-3 FATTY ACIDS/FISH OIL CAPSULE GT SCH (20:38)
[2023-09-25] MEDS: JEVITY 1.2 1000 ML LIQUID GT PRN (04:33)
[2023-09-25] MEDS: LORATADINE 10 MG TABLET GT SCH (05:30)
[2023-09-25] MEDS: CHOLECALCIFEROL 1,000 UNIT TABLET GT SCH (05:30)
[2023-09-25] MEDS: OMEPRAZOLE 20 MG CAPSULE.DR GT SCH (05:30)
[2023-09-25 07:43] VITALS: TEMP 98.2
[2023-09-25] MEDS: HYDROGEN PEROXIDE 3% 118 ML BOTTLE TP SCH ×2 (08:13→21:38)
[2023-09-25] MEDS: DOCUSATE SODIUM 100 MG/10 ML LIQUID UDC GT SCH ×2 (09:22→20:54)
[2023-09-25] MEDS: BACLOFEN 10 MG TABLET GT SCH ×3 (09:29→16:58)
[2023-09-25] MEDS: [UNRECOGNIZED DRUG - OTHER] GT SCH ×2 (09:30→20:54)
[2023-09-25] MEDS: REMEDY ESSENTIAL ZINC PASTE 113 GM TOP SCH ×2 (09:30→20:54)
[2023-09-25] MEDS: [UNRECOGNIZED DRUG - OTHER] TOP SCH ×2 (09:30→20:54)
[2023-09-25] MEDS: KETOCONAZOLE 2% SHAMPOO 120 ML BOTTLE TP SCH (09:30)
[2023-09-25] MEDS: NEOMY/BACITRA/POLYMYXIN B OINT UD PACKET TP SCH ×2 (09:30→20:54)
[2023-09-25] MEDS: VITAMINS A AND D 5 GM UD PKT TP SCH (09:31)
[2023-09-25] MEDS: ZINC OXIDE OINT 30 GM TUBE TP SCH ×2 (09:32→20:54)
[2023-09-25] MEDS: HEPARIN SODIUM,PORCINE 5,000 UNITS/ML VIAL SQ SCH ×2 (09:42→21:00)
[2023-09-25 14:37] VITALS: O2SAT 97
[2023-09-25 20:17] VITALS: TEMP 98.3
[2023-09-25] MEDS: OMEGA-3 FATTY ACIDS/FISH OIL CAPSULE GT SCH (20:54)
[2023-09-25 21:39] VITALS: O2SAT 99
[2023-09-26] MEDS: JEVITY 1.2 1000 ML LIQUID GT PRN ×2 (01:25→23:34)
[2023-09-26] MEDS: OMEPRAZOLE 20 MG CAPSULE.DR GT SCH (05:04)
[2023-09-26] MEDS: LORATADINE 10 MG TABLET GT SCH (05:04)
[2023-09-26] MEDS: CHOLECALCIFEROL 1,000 UNIT TABLET GT SCH (05:04)
[2023-09-26 07:32] VITALS: TEMP 97.1
[2023-09-26] MEDS: [UNRECOGNIZED DRUG - OTHER] GT SCH ×2 (08:44→20:16)
[2023-09-26] MEDS: BACLOFEN 10 MG TABLET GT SCH ×3 (08:44→17:10)
[2023-09-26] MEDS: DOCUSATE SODIUM 100 MG/10 ML LIQUID UDC GT SCH ×2 (08:44→20:16)
[2023-09-26] MEDS: HEPARIN SODIUM,PORCINE 5,000 UNITS/ML VIAL SQ SCH ×2 (08:47→21:50)
[2023-09-26] MEDS: NEOMY/BACITRA/POLYMYXIN B OINT UD PACKET TP SCH ×2 (08:48→21:49)
[2023-09-26] MEDS: ZINC OXIDE OINT 30 GM TUBE TP SCH ×2 (08:48→20:16)
[2023-09-26] MEDS: VITAMINS A AND D 5 GM UD PKT TP SCH (08:48)
[2023-09-26] MEDS: REMEDY ESSENTIAL ZINC PASTE 113 GM TOP SCH ×2 (08:48→20:16)
[2023-09-26] MEDS: [UNRECOGNIZED DRUG - OTHER] TOP SCH ×2 (08:48→20:16)
[2023-09-26 08:50] VITALS: O2SAT 98
[2023-09-26] MEDS: HYDROGEN PEROXIDE 3% 118 ML BOTTLE TP SCH ×2 (09:15→19:04)
[2023-09-26] MEDS ORDERED: TUBERCULIN,PURIF.PROT.DERIV. 5 TU/0.1 ML TEST ID SCH (12:00)
[2023-09-26 19:25] VITALS: O2SAT 99
[2023-09-26 20:00] VITALS: TEMP 98.3
[2023-09-26] MEDS: OMEGA-3 FATTY ACIDS/FISH OIL CAPSULE GT SCH (20:16)
[2023-09-27] MEDS: LORATADINE 10 MG TABLET GT SCH (05:19)
[2023-09-27] MEDS: CHOLECALCIFEROL 1,000 UNIT TABLET GT SCH (05:19)
[2023-09-27] MEDS: OMEPRAZOLE 20 MG CAPSULE.DR GT SCH (05:19)
[2023-09-27 07:30] VITALS: TEMP 99.2
[2023-09-27] MEDS: [UNRECOGNIZED DRUG - OTHER] GT SCH ×2 (08:31→21:10)
[2023-09-27] MEDS: DOCUSATE SODIUM 100 MG/10 ML LIQUID UDC GT SCH ×2 (08:31→21:09)
[2023-09-27] MEDS: BACLOFEN 10 MG TABLET GT SCH ×3 (08:31→17:26)
[2023-09-27] MEDS: REMEDY ESSENTIAL ZINC PASTE 113 GM TOP SCH ×2 (08:32→21:13)
[2023-09-27] MEDS: [UNRECOGNIZED DRUG - OTHER] TOP SCH ×2 (08:32→21:13)
[2023-09-27] MEDS: NEOMY/BACITRA/POLYMYXIN B OINT UD PACKET TP SCH ×2 (08:32→21:13)
[2023-09-27] MEDS: HEPARIN SODIUM,PORCINE 5,000 UNITS/ML VIAL SQ SCH ×2 (08:32→21:11)
[2023-09-27] MEDS: ZINC OXIDE OINT 30 GM TUBE TP SCH ×2 (08:32→21:13)
[2023-09-27] MEDS: VITAMINS A AND D 5 GM UD PKT TP SCH (08:32)
[2023-09-27] MEDS: HYDROGEN PEROXIDE 3% 118 ML BOTTLE TP SCH ×2 (09:05→19:25)
[2023-09-27 10:00] VITALS: O2SAT 98
[2023-09-27 19:25] VITALS: O2SAT 99
[2023-09-27 20:00] VITALS: TEMP 98.3
[2023-09-27] MEDS: OMEGA-3 FATTY ACIDS/FISH OIL CAPSULE GT SCH (21:10)
[2023-09-28] MEDS: LORATADINE 10 MG TABLET GT SCH (06:12)
[2023-09-28] MEDS: CHOLECALCIFEROL 1,000 UNIT TABLET GT SCH (06:12)
[2023-09-28] MEDS: OMEPRAZOLE 20 MG CAPSULE.DR GT SCH (06:12)
[2023-09-28 07:34] VITALS: TEMP 98
[2023-09-28] MEDS: ZINC OXIDE OINT 30 GM TUBE TP SCH ×2 (08:36→21:23)
[2023-09-28] MEDS: BACLOFEN 10 MG TABLET GT SCH ×3 (08:36→17:53)
[2023-09-28] MEDS: DOCUSATE SODIUM 100 MG/10 ML LIQUID UDC GT SCH ×2 (08:36→21:25)
[2023-09-28] MEDS: REMEDY ESSENTIAL ZINC PASTE 113 GM TOP SCH ×2 (08:36→21:23)
[2023-09-28] MEDS: [UNRECOGNIZED DRUG - OTHER] TOP SCH ×2 (08:36→21:23)
[2023-09-28] MEDS: NEOMY/BACITRA/POLYMYXIN B OINT UD PACKET TP SCH ×2 (08:36→21:23)
[2023-09-28] MEDS: VITAMINS A AND D 5 GM UD PKT TP SCH (08:36)
[2023-09-28] MEDS: [UNRECOGNIZED DRUG - OTHER] GT SCH ×2 (08:36→21:22)
[2023-09-28] MEDS: HYDROGEN PEROXIDE 3% 118 ML BOTTLE TP SCH ×2 (09:00→20:44)
[2023-09-28] MEDS: HEPARIN SODIUM,PORCINE 5,000 UNITS/ML VIAL SQ SCH ×2 (09:43→21:23)
[2023-09-28 10:45] VITALS: O2SAT 98
[2023-09-28] MEDS ORDERED: TUBERCULIN,PURIF.PROT.DERIV. 5 TU/0.1 ML TEST ID ONE (14:00)
[2023-09-28 20:08] VITALS: TEMP 97.7
[2023-09-28 20:44] VITALS: O2SAT 99
[2023-09-28] MEDS: OMEGA-3 FATTY ACIDS/FISH OIL CAPSULE GT SCH (21:21)
[2023-09-29] MEDS: LORATADINE 10 MG TABLET GT SCH (05:21)
[2023-09-29] MEDS: CHOLECALCIFEROL 1,000 UNIT TABLET GT SCH (05:22)
[2023-09-29] MEDS: OMEPRAZOLE 20 MG CAPSULE.DR GT SCH (05:22)
[2023-09-29 07:32] VITALS: TEMP 97.6
[2023-09-29] MEDS: HYDROGEN PEROXIDE 3% 118 ML BOTTLE TP SCH ×2 (09:30→21:00)
[2023-09-29] MEDS: KETOCONAZOLE 2% SHAMPOO 120 ML BOTTLE TP SCH (09:42)
[2023-09-29] MEDS: DOCUSATE SODIUM 100 MG/10 ML LIQUID UDC GT SCH ×2 (09:42→21:32)
[2023-09-29] MEDS: [UNRECOGNIZED DRUG - OTHER] GT SCH ×2 (09:42→21:34)
[2023-09-29] MEDS: BACLOFEN 10 MG TABLET GT SCH ×3 (09:42→17:59)
[2023-09-29] MEDS: NEOMY/BACITRA/POLYMYXIN B OINT UD PACKET TP SCH ×2 (09:42→21:38)
[2023-09-29] MEDS: [UNRECOGNIZED DRUG - OTHER] TOP SCH ×2 (09:42→21:38)
[2023-09-29] MEDS: REMEDY ESSENTIAL ZINC PASTE 113 GM TOP SCH ×2 (09:42→21:38)
[2023-09-29] MEDS: ZINC OXIDE OINT 30 GM TUBE TP SCH ×2 (09:43→21:38)
[2023-09-29] MEDS: VITAMINS A AND D 5 GM UD PKT TP SCH (09:43)
[2023-09-29] MEDS: HEPARIN SODIUM,PORCINE 5,000 UNITS/ML VIAL SQ SCH ×2 (09:53→21:35)
[2023-09-29 19:45] VITALS: TEMP 97
[2023-09-29 20:10] VITALS: O2SAT 98
[2023-09-29] MEDS: OMEGA-3 FATTY ACIDS/FISH OIL CAPSULE GT SCH (21:33)
[2023-09-30] MEDS: JEVITY 1.2 1000 ML LIQUID GT PRN (04:00)
[2023-09-30] MEDS: OMEPRAZOLE 20 MG CAPSULE.DR GT SCH (05:29)
[2023-09-30] MEDS: LORATADINE 10 MG TABLET GT SCH (05:29)
[2023-09-30] MEDS: CHOLECALCIFEROL 1,000 UNIT TABLET GT SCH (05:29)
[2023-09-30 07:35] VITALS: TEMP 97.6
[2023-09-30 08:40] VITALS: O2SAT 98
[2023-09-30] MEDS: BACLOFEN 10 MG TABLET GT SCH ×3 (09:21→17:50)
[2023-09-30] MEDS: DOCUSATE SODIUM 100 MG/10 ML LIQUID UDC GT SCH ×2 (09:21→20:00)
[2023-09-30] MEDS: [UNRECOGNIZED DRUG - OTHER] GT SCH ×2 (09:21→20:00)
[2023-09-30] MEDS: HEPARIN SODIUM,PORCINE 5,000 UNITS/ML VIAL SQ SCH ×2 (09:24→21:00)
[2023-09-30] MEDS: [UNRECOGNIZED DRUG - OTHER] TOP SCH ×2 (09:25→20:00)
[2023-09-30] MEDS: REMEDY ESSENTIAL ZINC PASTE 113 GM TOP SCH ×2 (09:25→20:01)
[2023-09-30] MEDS: NEOMY/BACITRA/POLYMYXIN B OINT UD PACKET TP SCH ×2 (09:25→20:01)
[2023-09-30] MEDS: ZINC OXIDE OINT 30 GM TUBE TP SCH ×2 (09:25→20:01)
[2023-09-30] MEDS: VITAMINS A AND D 5 GM UD PKT TP SCH (09:25)
[2023-09-30] MEDS: HYDROGEN PEROXIDE 3% 118 ML BOTTLE TP SCH ×2 (09:58→20:01)
[2023-09-30 19:52] VITALS: TEMP 98.2
[2023-09-30] MEDS: OMEGA-3 FATTY ACIDS/FISH OIL CAPSULE GT SCH (20:00)
[2023-10-01] MEDS: OMEPRAZOLE 20 MG CAPSULE.DR GT SCH (05:47)
[2023-10-01] MEDS: LORATADINE 10 MG TABLET GT SCH (05:47)
[2023-10-01] MEDS: CHOLECALCIFEROL 1,000 UNIT TABLET GT SCH (05:47)
[2023-10-01 07:25] VITALS: O2SAT 98
[2023-10-01] MEDS: HYDROGEN PEROXIDE 3% 118 ML BOTTLE TP SCH ×2 (07:25→21:14)
[2023-10-01 07:47] VITALS: TEMP 98
[2023-10-01] MEDS: BACLOFEN 10 MG TABLET GT SCH ×3 (08:57→17:21)
[2023-10-01] MEDS: DOCUSATE SODIUM 100 MG/10 ML LIQUID UDC GT SCH ×2 (08:57→20:07)
[2023-10-01] MEDS: [UNRECOGNIZED DRUG - OTHER] GT SCH ×2 (08:58→20:08)
[2023-10-01] MEDS: HEPARIN SODIUM,PORCINE 5,000 UNITS/ML VIAL SQ SCH ×2 (08:59→21:00)
[2023-10-01 09:00] VITALS: O2SAT 98
[2023-10-01] MEDS: ZINC OXIDE OINT 30 GM TUBE TP SCH ×2 (09:02→20:08)
[2023-10-01] MEDS: VITAMINS A AND D 5 GM UD PKT TP SCH (09:02)
[2023-10-01] MEDS: REMEDY ESSENTIAL ZINC PASTE 113 GM TOP SCH ×2 (09:02→20:08)
[2023-10-01] MEDS: NEOMY/BACITRA/POLYMYXIN B OINT UD PACKET TP SCH ×2 (09:02→20:08)
[2023-10-01] MEDS: [UNRECOGNIZED DRUG - OTHER] TOP SCH ×2 (09:02→20:08)
[2023-10-01] MEDS: JEVITY 1.2 1000 ML LIQUID GT PRN (17:20)
[2023-10-01 20:00] VITALS: TEMP 99
[2023-10-01] MEDS: OMEGA-3 FATTY ACIDS/FISH OIL CAPSULE GT SCH (20:07)
[2023-10-02] MEDS: OMEPRAZOLE 20 MG CAPSULE.DR GT SCH (06:00)
[2023-10-02] MEDS: LORATADINE 10 MG TABLET GT SCH (06:00)
[2023-10-02] MEDS: CHOLECALCIFEROL 1,000 UNIT TABLET GT SCH (06:00)
[2023-10-02 07:48] VITALS: TEMP 97.8
[2023-10-02] MEDS: DOCUSATE SODIUM 100 MG/10 ML LIQUID UDC GT SCH ×2 (08:34→21:00)
[2023-10-02] MEDS: BACLOFEN 10 MG TABLET GT SCH ×3 (08:35→17:09)
[2023-10-02] MEDS: [UNRECOGNIZED DRUG - OTHER] GT SCH ×2 (08:35→21:00)
[2023-10-02] MEDS: [UNRECOGNIZED DRUG - OTHER] TOP SCH ×2 (08:36→21:00)
[2023-10-02] MEDS: NEOMY/BACITRA/POLYMYXIN B OINT UD PACKET TP SCH ×2 (08:36→21:00)
[2023-10-02] MEDS: HEPARIN SODIUM,PORCINE 5,000 UNITS/ML VIAL SQ SCH ×2 (08:36→21:00)
[2023-10-02] MEDS: VITAMINS A AND D 5 GM UD PKT TP SCH (08:36)
[2023-10-02] MEDS: KETOCONAZOLE 2% SHAMPOO 120 ML BOTTLE TP SCH (08:36)
[2023-10-02] MEDS: REMEDY ESSENTIAL ZINC PASTE 113 GM TOP SCH ×2 (08:36→21:00)
[2023-10-02] MEDS: ZINC OXIDE OINT 30 GM TUBE TP SCH ×2 (08:36→21:00)
[2023-10-02 08:38] VITALS: O2SAT 98
[2023-10-02] MEDS: HYDROGEN PEROXIDE 3% 118 ML BOTTLE TP SCH ×2 (09:06→20:26)
[2023-10-02] MEDS: JEVITY 1.2 1000 ML LIQUID GT PRN (13:03)
[2023-10-02 20:00] VITALS: TEMP 98.1
[2023-10-02] MEDS: OMEGA-3 FATTY ACIDS/FISH OIL CAPSULE GT SCH (21:00)
[2023-10-02 21:11] VITALS: O2SAT 98
[2023-10-03] MEDS: OMEPRAZOLE 20 MG CAPSULE.DR GT SCH (06:00)
[2023-10-03] MEDS: LORATADINE 10 MG TABLET GT SCH (06:00)
[2023-10-03] MEDS: CHOLECALCIFEROL 1,000 UNIT TABLET GT SCH (06:00)
[2023-10-03 07:40] VITALS: TEMP 98.1
[2023-10-03 08:35] VITALS: O2SAT 98
[2023-10-03] MEDS: [UNRECOGNIZED DRUG - OTHER] TOP SCH ×2 (08:58→20:35)
[2023-10-03] MEDS: NEOMY/BACITRA/POLYMYXIN B OINT UD PACKET TP SCH ×2 (08:58→20:35)
[2023-10-03] MEDS: [UNRECOGNIZED DRUG - OTHER] GT SCH ×2 (08:58→20:34)
[2023-10-03] MEDS: VITAMINS A AND D 5 GM UD PKT TP SCH (08:58)
[2023-10-03] MEDS: BACLOFEN 10 MG TABLET GT SCH ×3 (08:58→17:52)
[2023-10-03] MEDS: DOCUSATE SODIUM 100 MG/10 ML LIQUID UDC GT SCH ×2 (08:58→20:34)
[2023-10-03] MEDS: REMEDY ESSENTIAL ZINC PASTE 113 GM TOP SCH ×2 (08:58→20:35)
[2023-10-03] MEDS: HEPARIN SODIUM,PORCINE 5,000 UNITS/ML VIAL SQ SCH ×2 (08:58→20:35)
[2023-10-03] MEDS: ZINC OXIDE OINT 30 GM TUBE TP SCH ×2 (08:58→20:35)
[2023-10-03] MEDS: HYDROGEN PEROXIDE 3% 118 ML BOTTLE TP SCH ×2 (09:00→19:19)
[2023-10-03] MEDS: JEVITY 1.2 1000 ML LIQUID GT PRN (14:41)
[2023-10-03 19:25] VITALS: O2SAT 98
[2023-10-03 20:00] VITALS: TEMP 98.2; TEMP 98.6
[2023-10-03] MEDS: OMEGA-3 FATTY ACIDS/FISH OIL CAPSULE GT SCH (20:34)
[2023-10-04] MEDS: OMEPRAZOLE 20 MG CAPSULE.DR GT SCH (05:16)
[2023-10-04] MEDS: LORATADINE 10 MG TABLET GT SCH (05:16)
[2023-10-04] MEDS: CHOLECALCIFEROL 1,000 UNIT TABLET GT SCH (05:16)
[2023-10-04 07:23] VITALS: TEMP 98.6
[2023-10-04] MEDS: BACLOFEN 10 MG TABLET GT SCH ×3 (08:37→16:43)
[2023-10-04] MEDS: DOCUSATE SODIUM 100 MG/10 ML LIQUID UDC GT SCH ×2 (08:37→20:37)
[2023-10-04] MEDS: [UNRECOGNIZED DRUG - OTHER] GT SCH ×2 (08:38→20:37)
[2023-10-04] MEDS: [UNRECOGNIZED DRUG - OTHER] TOP SCH ×2 (08:39→20:39)
[2023-10-04] MEDS: HEPARIN SODIUM,PORCINE 5,000 UNITS/ML VIAL SQ SCH ×2 (08:39→20:37)
[2023-10-04] MEDS: REMEDY ESSENTIAL ZINC PASTE 113 GM TOP SCH ×2 (08:40→20:39)
[2023-10-04] MEDS: NEOMY/BACITRA/POLYMYXIN B OINT UD PACKET TP SCH (08:40)
[2023-10-04] MEDS: VITAMINS A AND D 5 GM UD PKT TP SCH (08:40)
[2023-10-04] MEDS: ZINC OXIDE OINT 30 GM TUBE TP SCH ×2 (08:40→20:40)
[2023-10-04 08:45] VITALS: O2SAT 99
[2023-10-04] MEDS: HYDROGEN PEROXIDE 3% 118 ML BOTTLE TP SCH ×2 (09:07→21:00)
[2023-10-04] MEDS: JEVITY 1.2 1000 ML LIQUID GT PRN (12:36)
[2023-10-04 20:00] VITALS: TEMP 97.6
[2023-10-04] MEDS: OMEGA-3 FATTY ACIDS/FISH OIL CAPSULE GT SCH (20:37)
[2023-10-04 20:45] VITALS: O2SAT 98
[2023-10-05] MEDS: JEVITY 1.2 1000 ML LIQUID GT PRN (04:59)
[2023-10-05] MEDS: OMEPRAZOLE 20 MG CAPSULE.DR GT SCH (05:00)
[2023-10-05] MEDS: LORATADINE 10 MG TABLET GT SCH (05:00)
[2023-10-05] MEDS: CHOLECALCIFEROL 1,000 UNIT TABLET GT SCH (05:00)
[2023-10-05 07:21] VITALS: TEMP 98.7
[2023-10-05] MEDS: DOCUSATE SODIUM 100 MG/10 ML LIQUID UDC GT SCH ×2 (08:50→20:19)
[2023-10-05] MEDS: BACLOFEN 10 MG TABLET GT SCH ×3 (08:51→16:33)
[2023-10-05] MEDS: [UNRECOGNIZED DRUG - OTHER] GT SCH ×2 (08:52→20:19)
[2023-10-05] MEDS: VITAMINS A AND D 5 GM UD PKT TP SCH (08:52)
[2023-10-05] MEDS: ZINC OXIDE OINT 30 GM TUBE TP SCH ×2 (08:52→20:20)
[2023-10-05] MEDS: REMEDY ESSENTIAL ZINC PASTE 113 GM TOP SCH ×2 (08:52→20:20)
[2023-10-05] MEDS: [UNRECOGNIZED DRUG - OTHER] TOP SCH ×2 (08:53→20:20)
[2023-10-05] MEDS: HYDROGEN PEROXIDE 3% 118 ML BOTTLE TP SCH ×2 (09:00→21:00)
[2023-10-05] MEDS: HEPARIN SODIUM,PORCINE 5,000 UNITS/ML VIAL SQ SCH ×2 (09:01→20:20)
[2023-10-05 10:40] VITALS: O2SAT 99
[2023-10-05 20:00] VITALS: TEMP 98.2
[2023-10-05] MEDS: OMEGA-3 FATTY ACIDS/FISH OIL CAPSULE GT SCH (20:19)
[2023-10-06 00:17] VITALS: O2SAT 99
[2023-10-06] MEDS: JEVITY 1.2 1000 ML LIQUID GT PRN (02:02)
[2023-10-06] MEDS: OMEPRAZOLE 20 MG CAPSULE.DR GT SCH (05:11)
[2023-10-06] MEDS: CHOLECALCIFEROL 1,000 UNIT TABLET GT SCH (05:11)
[2023-10-06] MEDS: LORATADINE 10 MG TABLET GT SCH (05:11)
[2023-10-06 07:55] VITALS: TEMP 97.8
[2023-10-06] MEDS: [UNRECOGNIZED DRUG - OTHER] GT SCH ×2 (08:40→20:09)
[2023-10-06] MEDS: DOCUSATE SODIUM 100 MG/10 ML LIQUID UDC GT SCH ×2 (08:40→20:09)
[2023-10-06] MEDS: [UNRECOGNIZED DRUG - OTHER] TOP SCH ×2 (08:42→20:10)
[2023-10-06] MEDS: REMEDY ESSENTIAL ZINC PASTE 113 GM TOP SCH ×2 (08:42→20:10)
[2023-10-06] MEDS: ZINC OXIDE OINT 30 GM TUBE TP SCH ×2 (08:42→20:10)
[2023-10-06] MEDS: KETOCONAZOLE 2% SHAMPOO 120 ML BOTTLE TP SCH (08:42)
[2023-10-06] MEDS: VITAMINS A AND D 5 GM UD PKT TP SCH (08:42)
[2023-10-06] MEDS: BACLOFEN 10 MG TABLET GT SCH ×3 (08:44→17:24)
[2023-10-06] MEDS: HEPARIN SODIUM,PORCINE 5,000 UNITS/ML VIAL SQ SCH ×2 (08:49→20:10)
[2023-10-06 09:00] VITALS: O2SAT 99
[2023-10-06] MEDS: HYDROGEN PEROXIDE 3% 118 ML BOTTLE TP SCH ×2 (09:00→20:40)
[2023-10-06 18:50] VITALS: O2SAT 98
[2023-10-06 20:00] VITALS: TEMP 97.8
[2023-10-06] MEDS: OMEGA-3 FATTY ACIDS/FISH OIL CAPSULE GT SCH (20:09)
[2023-10-07] MEDS: JEVITY 1.2 1000 ML LIQUID GT PRN (02:00)
[2023-10-07] MEDS: CHOLECALCIFEROL 1,000 UNIT TABLET GT SCH (05:27)
[2023-10-07] MEDS: OMEPRAZOLE 20 MG CAPSULE.DR GT SCH (05:27)
[2023-10-07] MEDS: LORATADINE 10 MG TABLET GT SCH (05:27)
[2023-10-07] MEDS: HYDROGEN PEROXIDE 3% 118 ML BOTTLE TP SCH ×2 (07:05→22:08)
[2023-10-07 08:00] VITALS: TEMP 97.3
[2023-10-07] MEDS: DOCUSATE SODIUM 100 MG/10 ML LIQUID UDC GT SCH ×2 (09:33→20:13)
[2023-10-07] MEDS: BACLOFEN 10 MG TABLET GT SCH ×3 (09:34→16:59)
[2023-10-07] MEDS: [UNRECOGNIZED DRUG - OTHER] GT SCH ×2 (09:34→20:13)
[2023-10-07] MEDS: VITAMINS A AND D 5 GM UD PKT TP SCH (09:35)
[2023-10-07] MEDS: REMEDY ESSENTIAL ZINC PASTE 113 GM TOP SCH ×2 (09:35→20:13)
[2023-10-07] MEDS: ZINC OXIDE OINT 30 GM TUBE TP SCH ×2 (09:35→20:13)
[2023-10-07] MEDS: [UNRECOGNIZED DRUG - OTHER] TOP SCH ×2 (09:35→20:13)
[2023-10-07] MEDS: HEPARIN SODIUM,PORCINE 5,000 UNITS/ML VIAL SQ SCH ×2 (09:37→21:00)
[2023-10-07 10:45] VITALS: O2SAT 98
[2023-10-07 19:58] VITALS: O2SAT 98
[2023-10-07 20:00] VITALS: TEMP 98.2
[2023-10-07] MEDS: OMEGA-3 FATTY ACIDS/FISH OIL CAPSULE GT SCH (20:13)
[2023-10-08] MEDS: JEVITY 1.2 1000 ML LIQUID GT PRN ×2 (00:41→18:45)
[2023-10-08] MEDS: CHOLECALCIFEROL 1,000 UNIT TABLET GT SCH (05:35)
[2023-10-08] MEDS: OMEPRAZOLE 20 MG CAPSULE.DR GT SCH (05:35)
[2023-10-08] MEDS: LORATADINE 10 MG TABLET GT SCH (05:35)
[2023-10-08 07:10] VITALS: O2SAT 98
[2023-10-08] MEDS: HYDROGEN PEROXIDE 3% 118 ML BOTTLE TP SCH ×2 (07:10→19:13)
[2023-10-08 08:00] VITALS: BP 99/60; TEMP 98; O2SAT 98
[2023-10-08] MEDS: DOCUSATE SODIUM 100 MG/10 ML LIQUID UDC GT SCH ×2 (08:10→20:24)
[2023-10-08] MEDS: BACLOFEN 10 MG TABLET GT SCH ×3 (08:10→17:08)
[2023-10-08] MEDS: ZINC OXIDE OINT 30 GM TUBE TP SCH ×2 (08:11→20:24)
[2023-10-08] MEDS: VITAMINS A AND D 5 GM UD PKT TP SCH (08:11)
[2023-10-08] MEDS: [UNRECOGNIZED DRUG - OTHER] TOP SCH ×2 (08:11→20:24)
[2023-10-08] MEDS: REMEDY ESSENTIAL ZINC PASTE 113 GM TOP SCH ×2 (08:11→20:24)
[2023-10-08] MEDS: [UNRECOGNIZED DRUG - OTHER] GT SCH ×2 (08:11→20:24)
[2023-10-08] MEDS: HEPARIN SODIUM,PORCINE 5,000 UNITS/ML VIAL SQ SCH ×2 (08:13→21:00)
[2023-10-08 19:55] VITALS: O2SAT 98
[2023-10-08 20:00] VITALS: TEMP 98
[2023-10-08] MEDS: OMEGA-3 FATTY ACIDS/FISH OIL CAPSULE GT SCH (20:24)
[2023-10-09] MEDS: LORATADINE 10 MG TABLET GT SCH (06:53)
[2023-10-09] MEDS: OMEPRAZOLE 20 MG CAPSULE.DR GT SCH (06:53)
[2023-10-09] MEDS: CHOLECALCIFEROL 1,000 UNIT TABLET GT SCH (06:53)
[2023-10-09 08:25] VITALS: TEMP 97
[2023-10-09] MEDS: DOCUSATE SODIUM 100 MG/10 ML LIQUID UDC GT SCH ×2 (09:21→20:21)
[2023-10-09] MEDS: [UNRECOGNIZED DRUG - OTHER] GT SCH ×2 (09:22→20:21)
[2023-10-09] MEDS: REMEDY ESSENTIAL ZINC PASTE 113 GM TOP SCH ×2 (09:22→20:21)
[2023-10-09] MEDS: BACLOFEN 10 MG TABLET GT SCH ×3 (09:22→16:36)
[2023-10-09] MEDS: [UNRECOGNIZED DRUG - OTHER] TOP SCH ×2 (09:22→20:21)
[2023-10-09] MEDS: ZINC OXIDE OINT 30 GM TUBE TP SCH ×2 (09:28→20:21)
[2023-10-09] MEDS: VITAMINS A AND D 5 GM UD PKT TP SCH (09:28)
[2023-10-09] MEDS: HEPARIN SODIUM,PORCINE 5,000 UNITS/ML VIAL SQ SCH ×2 (09:28→21:00)
[2023-10-09] MEDS: KETOCONAZOLE 2% SHAMPOO 120 ML BOTTLE TP SCH (09:28)
[2023-10-09] MEDS: HYDROGEN PEROXIDE 3% 118 ML BOTTLE TP SCH ×2 (09:56→21:00)
[2023-10-09 10:00] VITALS: O2SAT 97
[2023-10-09] MEDS: JEVITY 1.2 1000 ML LIQUID GT PRN (14:46)
[2023-10-09 20:00] VITALS: TEMP 98.6
[2023-10-09] MEDS: OMEGA-3 FATTY ACIDS/FISH OIL CAPSULE GT SCH (20:21)
[2023-10-10] MEDS: OMEPRAZOLE 20 MG CAPSULE.DR GT SCH (05:33)
[2023-10-10] MEDS: CHOLECALCIFEROL 1,000 UNIT TABLET GT SCH (05:33)
[2023-10-10] MEDS: JEVITY 1.2 1000 ML LIQUID GT PRN (05:33)
[2023-10-10] MEDS: LORATADINE 10 MG TABLET GT SCH (05:33)
[2023-10-10 07:30] VITALS: TEMP 98.5
[2023-10-10 08:52] VITALS: O2SAT 98
[2023-10-10] MEDS: HYDROGEN PEROXIDE 3% 118 ML BOTTLE TP SCH ×2 (09:33→19:13)
[2023-10-10] MEDS: [UNRECOGNIZED DRUG - OTHER] GT SCH ×2 (09:34→21:04)
[2023-10-10] MEDS: DOCUSATE SODIUM 100 MG/10 ML LIQUID UDC GT SCH ×2 (09:34→21:04)
[2023-10-10] MEDS: BACLOFEN 10 MG TABLET GT SCH ×3 (09:34→17:39)
[2023-10-10] MEDS: REMEDY ESSENTIAL ZINC PASTE 113 GM TOP SCH ×2 (09:35→21:00)
[2023-10-10] MEDS: VITAMINS A AND D 5 GM UD PKT TP SCH (09:35)
[2023-10-10] MEDS: [UNRECOGNIZED DRUG - OTHER] TOP SCH ×2 (09:35→21:00)
[2023-10-10] MEDS: ZINC OXIDE OINT 30 GM TUBE TP SCH ×2 (09:35→21:00)
[2023-10-10] MEDS: HEPARIN SODIUM,PORCINE 5,000 UNITS/ML VIAL SQ SCH ×2 (09:43→21:00)
[2023-10-10] MEDS: ACETAMINOPHEN 650 MG/20 ML UDC- SA PATIENTS-PAIN ONLY GT PRN (15:11)
[2023-10-10 19:35] VITALS: O2SAT 98
[2023-10-10 20:27] VITALS: TEMP 98.3
[2023-10-10] MEDS: OMEGA-3 FATTY ACIDS/FISH OIL CAPSULE GT SCH (21:04)
[2023-10-11] MEDS: OMEPRAZOLE 20 MG CAPSULE.DR GT SCH (06:56)
[2023-10-11] MEDS: CHOLECALCIFEROL 1,000 UNIT TABLET GT SCH (06:56)
[2023-10-11] MEDS: LORATADINE 10 MG TABLET GT SCH (06:56)
[2023-10-11 08:00] VITALS: TEMP 98.9
[2023-10-11] MEDS: [UNRECOGNIZED DRUG - OTHER] GT SCH ×2 (08:55→20:13)
[2023-10-11] MEDS: DOCUSATE SODIUM 100 MG/10 ML LIQUID UDC GT SCH ×2 (08:55→20:12)
[2023-10-11] MEDS: BACLOFEN 10 MG TABLET GT SCH ×3 (08:55→17:47)
[2023-10-11] MEDS: ZINC OXIDE OINT 30 GM TUBE TP SCH ×2 (08:56→20:13)
[2023-10-11] MEDS: VITAMINS A AND D 5 GM UD PKT TP SCH (08:56)
[2023-10-11] MEDS: REMEDY ESSENTIAL ZINC PASTE 113 GM TOP SCH ×2 (08:56→20:13)
[2023-10-11] MEDS: [UNRECOGNIZED DRUG - OTHER] TOP SCH ×2 (08:56→20:13)
[2023-10-11 09:00] VITALS: O2SAT 98
[2023-10-11] MEDS: HYDROGEN PEROXIDE 3% 118 ML BOTTLE TP SCH ×2 (09:00→20:51)
[2023-10-11] MEDS: HEPARIN SODIUM,PORCINE 5,000 UNITS/ML VIAL SQ SCH ×2 (09:02→21:00)
[2023-10-11] MEDS: JEVITY 1.2 1000 ML LIQUID GT PRN (10:45)
[2023-10-11 20:00] VITALS: TEMP 98; TEMP 99.1
[2023-10-11] MEDS: OMEGA-3 FATTY ACIDS/FISH OIL CAPSULE GT SCH (20:13)
[2023-10-11 20:30] VITALS: O2SAT 98
[2023-10-12] MEDS: CHOLECALCIFEROL 1,000 UNIT TABLET GT SCH (06:15)
[2023-10-12] MEDS: JEVITY 1.2 1000 ML LIQUID GT PRN (06:15)
[2023-10-12] MEDS: LORATADINE 10 MG TABLET GT SCH (06:15)
[2023-10-12] MEDS: OMEPRAZOLE 20 MG CAPSULE.DR GT SCH (06:15)
[2023-10-12] MEDS: REMEDY ESSENTIAL ZINC PASTE 113 GM TOP SCH ×2 (08:39→20:19)
[2023-10-12] MEDS: VITAMINS A AND D 5 GM UD PKT TP SCH (08:39)
[2023-10-12] MEDS: DOCUSATE SODIUM 100 MG/10 ML LIQUID UDC GT SCH ×2 (08:39→20:18)
[2023-10-12] MEDS: [UNRECOGNIZED DRUG - OTHER] TOP SCH ×2 (08:39→20:19)
[2023-10-12] MEDS: [UNRECOGNIZED DRUG - OTHER] GT SCH ×2 (08:39→20:18)
[2023-10-12] MEDS: ZINC OXIDE OINT 30 GM TUBE TP SCH ×2 (08:39→20:19)
[2023-10-12] MEDS: BACLOFEN 10 MG TABLET GT SCH ×3 (08:39→17:00)
[2023-10-12] MEDS: HEPARIN SODIUM,PORCINE 5,000 UNITS/ML VIAL SQ SCH ×2 (09:00→20:19)
[2023-10-12] MEDS: HYDROGEN PEROXIDE 3% 118 ML BOTTLE TP SCH ×2 (09:27→19:27)
[2023-10-12 13:02] VITALS: O2SAT 97
[2023-10-12 17:19] VITALS: TEMP 98.9
[2023-10-12 17:22] VITALS: TEMP 98.9
[2023-10-12 19:15] VITALS: O2SAT 99
[2023-10-12 20:16] VITALS: TEMP 98.8
[2023-10-12] MEDS: OMEGA-3 FATTY ACIDS/FISH OIL CAPSULE GT SCH (20:18)
[2023-10-13] MEDS: JEVITY 1.2 1000 ML LIQUID GT PRN (01:00)
[2023-10-13] MEDS: LORATADINE 10 MG TABLET GT SCH (05:44)
[2023-10-13] MEDS: OMEPRAZOLE 20 MG CAPSULE.DR GT SCH (05:44)
[2023-10-13] MEDS: CHOLECALCIFEROL 1,000 UNIT TABLET GT SCH (05:44)
[2023-10-13 07:30] VITALS: TEMP 98.7
[2023-10-13 08:40] VITALS: O2SAT 98
[2023-10-13] MEDS: HYDROGEN PEROXIDE 3% 118 ML BOTTLE TP SCH ×2 (09:16→19:13)
[2023-10-13] MEDS: HEPARIN SODIUM,PORCINE 5,000 UNITS/ML VIAL SQ SCH ×2 (09:49→20:11)
[2023-10-13] MEDS: [UNRECOGNIZED DRUG - OTHER] TOP SCH ×2 (09:50→20:12)
[2023-10-13] MEDS: [UNRECOGNIZED DRUG - OTHER] GT SCH ×2 (09:50→20:11)
[2023-10-13] MEDS: REMEDY ESSENTIAL ZINC PASTE 113 GM TOP SCH ×2 (09:50→20:12)
[2023-10-13] MEDS: VITAMINS A AND D 5 GM UD PKT TP SCH (09:50)
[2023-10-13] MEDS: DOCUSATE SODIUM 100 MG/10 ML LIQUID UDC GT SCH ×2 (09:50→20:11)
[2023-10-13] MEDS: BACLOFEN 10 MG TABLET GT SCH ×3 (09:50→17:05)
[2023-10-13] MEDS: KETOCONAZOLE 2% SHAMPOO 120 ML BOTTLE TP SCH (09:50)
[2023-10-13] MEDS: ZINC OXIDE OINT 30 GM TUBE TP SCH ×2 (09:51→20:12)
[2023-10-13 19:55] VITALS: O2SAT 99
[2023-10-13 19:59] VITALS: TEMP 98.3
[2023-10-13] MEDS: OMEGA-3 FATTY ACIDS/FISH OIL CAPSULE GT SCH (20:11)
[2023-10-14] MEDS: JEVITY 1.2 1000 ML LIQUID GT PRN ×2 (01:10→20:09)
[2023-10-14] MEDS: OMEPRAZOLE 20 MG CAPSULE.DR GT SCH (06:15)
[2023-10-14] MEDS: LORATADINE 10 MG TABLET GT SCH (06:15)
[2023-10-14] MEDS: CHOLECALCIFEROL 1,000 UNIT TABLET GT SCH (06:15)
[2023-10-14 07:54] VITALS: TEMP 97
[2023-10-14] MEDS: BACLOFEN 10 MG TABLET GT SCH ×3 (08:33→17:47)
[2023-10-14] MEDS: [UNRECOGNIZED DRUG - OTHER] GT SCH ×2 (08:33→20:08)
[2023-10-14] MEDS: DOCUSATE SODIUM 100 MG/10 ML LIQUID UDC GT SCH ×2 (08:33→20:08)
[2023-10-14] MEDS: HEPARIN SODIUM,PORCINE 5,000 UNITS/ML VIAL SQ SCH ×2 (08:34→20:09)
[2023-10-14] MEDS: REMEDY ESSENTIAL ZINC PASTE 113 GM TOP SCH ×2 (08:35→20:09)
[2023-10-14] MEDS: VITAMINS A AND D 5 GM UD PKT TP SCH (08:35)
[2023-10-14] MEDS: [UNRECOGNIZED DRUG - OTHER] TOP SCH ×2 (08:35→20:09)
[2023-10-14] MEDS: ZINC OXIDE OINT 30 GM TUBE TP SCH ×2 (08:35→20:09)
[2023-10-14] MEDS: HYDROGEN PEROXIDE 3% 118 ML BOTTLE TP SCH ×2 (09:06→19:12)
[2023-10-14 17:37] VITALS: O2SAT 97
[2023-10-14 19:50] VITALS: O2SAT 99
[2023-10-14 20:01] VITALS: TEMP 98.6
[2023-10-14] MEDS: OMEGA-3 FATTY ACIDS/FISH OIL CAPSULE GT SCH (20:08)
[2023-10-15] MEDS: LORATADINE 10 MG TABLET GT SCH (05:48)
[2023-10-15] MEDS: CHOLECALCIFEROL 1,000 UNIT TABLET GT SCH (05:48)
[2023-10-15] MEDS: OMEPRAZOLE 20 MG CAPSULE.DR GT SCH (05:48)
[2023-10-15 07:25] VITALS: O2SAT 97
[2023-10-15] MEDS: HYDROGEN PEROXIDE 3% 118 ML BOTTLE TP SCH ×2 (07:25→20:57)
[2023-10-15 07:55] VITALS: TEMP 97.7
[2023-10-15] MEDS: BACLOFEN 10 MG TABLET GT SCH ×3 (08:28→17:56)
[2023-10-15] MEDS: DOCUSATE SODIUM 100 MG/10 ML LIQUID UDC GT SCH ×2 (08:28→21:00)
[2023-10-15] MEDS: [UNRECOGNIZED DRUG - OTHER] GT SCH ×2 (08:28→21:00)
[2023-10-15] MEDS: REMEDY ESSENTIAL ZINC PASTE 113 GM TOP SCH ×2 (08:31→21:00)
[2023-10-15] MEDS: [UNRECOGNIZED DRUG - OTHER] TOP SCH ×2 (08:31→21:00)
[2023-10-15] MEDS: VITAMINS A AND D 5 GM UD PKT TP SCH (08:31)
[2023-10-15] MEDS: ZINC OXIDE OINT 30 GM TUBE TP SCH ×2 (08:31→21:00)
[2023-10-15] MEDS: HEPARIN SODIUM,PORCINE 5,000 UNITS/ML VIAL SQ SCH ×2 (08:31→21:00)
[2023-10-15] MEDS: JEVITY 1.2 1000 ML LIQUID GT PRN (14:24)
[2023-10-15 20:15] VITALS: O2SAT 97
[2023-10-15] MEDS: OMEGA-3 FATTY ACIDS/FISH OIL CAPSULE GT SCH (21:00)
[2023-10-15 22:25] VITALS: TEMP 98.2
[2023-10-16] MEDS: LORATADINE 10 MG TABLET GT SCH (06:30)
[2023-10-16] MEDS: OMEPRAZOLE 20 MG CAPSULE.DR GT SCH (06:30)
[2023-10-16] MEDS: CHOLECALCIFEROL 1,000 UNIT TABLET GT SCH (06:30)
[2023-10-16 07:45] VITALS: TEMP 98.4
[2023-10-16] MEDS: HYDROGEN PEROXIDE 3% 118 ML BOTTLE TP SCH ×2 (08:40→19:20)
[2023-10-16] MEDS: [UNRECOGNIZED DRUG - OTHER] GT SCH ×2 (09:42→21:00)
[2023-10-16] MEDS: BACLOFEN 10 MG TABLET GT SCH ×3 (09:42→17:45)
[2023-10-16] MEDS: [UNRECOGNIZED DRUG - OTHER] TOP SCH ×2 (09:42→21:00)
[2023-10-16] MEDS: KETOCONAZOLE 2% SHAMPOO 120 ML BOTTLE TP SCH (09:42)
[2023-10-16] MEDS: REMEDY ESSENTIAL ZINC PASTE 113 GM TOP SCH ×2 (09:42→21:00)
[2023-10-16] MEDS: ZINC OXIDE OINT 30 GM TUBE TP SCH ×2 (09:42→21:00)
[2023-10-16] MEDS: VITAMINS A AND D 5 GM UD PKT TP SCH (09:42)
[2023-10-16] MEDS: DOCUSATE SODIUM 100 MG/10 ML LIQUID UDC GT SCH ×2 (09:42→21:00)
[2023-10-16] MEDS: HEPARIN SODIUM,PORCINE 5,000 UNITS/ML VIAL SQ SCH ×2 (09:42→21:00)
[2023-10-16 10:40] VITALS: O2SAT 98
[2023-10-16] MEDS: JEVITY 1.2 1000 ML LIQUID GT PRN (12:24)
[2023-10-16 19:25] VITALS: O2SAT 97
[2023-10-16] MEDS: OMEGA-3 FATTY ACIDS/FISH OIL CAPSULE GT SCH (21:00)
[2023-10-16 22:00] VITALS: TEMP 97.5
[2023-10-16] MEDS: ACETAMINOPHEN 650 MG/20 ML UDC- SA PATIENTS-PAIN ONLY GT PRN (22:22)
[2023-10-17] MEDS: CHOLECALCIFEROL 1,000 UNIT TABLET GT SCH (05:01)
[2023-10-17] MEDS: LORATADINE 10 MG TABLET GT SCH (05:01)
[2023-10-17] MEDS: OMEPRAZOLE 20 MG CAPSULE.DR GT SCH (05:01)
[2023-10-17 08:15] VITALS: TEMP 97.8
[2023-10-17] MEDS: DOCUSATE SODIUM 100 MG/10 ML LIQUID UDC GT SCH ×2 (09:00→21:00)
[2023-10-17] MEDS: [UNRECOGNIZED DRUG - OTHER] GT SCH ×2 (09:00→21:00)
[2023-10-17] MEDS: BACLOFEN 10 MG TABLET GT SCH ×3 (09:00→17:36)
[2023-10-17] MEDS: HEPARIN SODIUM,PORCINE 5,000 UNITS/ML VIAL SQ SCH ×2 (09:01→21:00)
[2023-10-17] MEDS: ZINC OXIDE OINT 30 GM TUBE TP SCH ×2 (09:01→21:00)
[2023-10-17] MEDS: [UNRECOGNIZED DRUG - OTHER] TOP SCH ×2 (09:01→21:00)
[2023-10-17] MEDS: REMEDY ESSENTIAL ZINC PASTE 113 GM TOP SCH ×2 (09:01→21:00)
[2023-10-17] MEDS: VITAMINS A AND D 5 GM UD PKT TP SCH (09:01)
[2023-10-17] MEDS: JEVITY 1.2 1000 ML LIQUID GT PRN (09:02)
[2023-10-17] MEDS: HYDROGEN PEROXIDE 3% 118 ML BOTTLE TP SCH ×2 (09:32→19:03)
[2023-10-17 10:00] VITALS: O2SAT 98
[2023-10-17 20:15] VITALS: O2SAT 98
[2023-10-17] MEDS: OMEGA-3 FATTY ACIDS/FISH OIL CAPSULE GT SCH (21:00)
[2023-10-18] MEDS: CHOLECALCIFEROL 1,000 UNIT TABLET GT SCH (06:13)
[2023-10-18] MEDS: OMEPRAZOLE 20 MG CAPSULE.DR GT SCH (06:13)
[2023-10-18] MEDS: LORATADINE 10 MG TABLET GT SCH (06:13)
[2023-10-18] MEDS: JEVITY 1.2 1000 ML LIQUID GT PRN ×2 (06:15→22:57)
[2023-10-18 07:28] VITALS: TEMP 99.3
[2023-10-18 07:41] VITALS: O2SAT 98
[2023-10-18] MEDS: BACLOFEN 10 MG TABLET GT SCH ×3 (08:15→17:34)
[2023-10-18] MEDS: DOCUSATE SODIUM 100 MG/10 ML LIQUID UDC GT SCH ×2 (08:15→20:28)
[2023-10-18] MEDS: HEPARIN SODIUM,PORCINE 5,000 UNITS/ML VIAL SQ SCH ×2 (08:16→20:29)
[2023-10-18] MEDS: [UNRECOGNIZED DRUG - OTHER] TOP SCH ×2 (08:16→20:29)
[2023-10-18] MEDS: [UNRECOGNIZED DRUG - OTHER] GT SCH ×2 (08:16→20:28)
[2023-10-18] MEDS: REMEDY ESSENTIAL ZINC PASTE 113 GM TOP SCH ×2 (08:16→20:29)
[2023-10-18] MEDS: ZINC OXIDE OINT 30 GM TUBE TP SCH ×2 (08:16→20:29)
[2023-10-18] MEDS: VITAMINS A AND D 5 GM UD PKT TP SCH (08:16)
[2023-10-18] MEDS: HYDROGEN PEROXIDE 3% 118 ML BOTTLE TP SCH ×2 (09:02→19:13)
[2023-10-18 20:02] VITALS: O2SAT 98
[2023-10-18] MEDS: OMEGA-3 FATTY ACIDS/FISH OIL CAPSULE GT SCH (20:28)
[2023-10-18 21:06] VITALS: TEMP 99
[2023-10-19] MEDS: LORATADINE 10 MG TABLET GT SCH (05:13)
[2023-10-19] MEDS: CHOLECALCIFEROL 1,000 UNIT TABLET GT SCH (05:13)
[2023-10-19] MEDS: OMEPRAZOLE 20 MG CAPSULE.DR GT SCH (05:13)
== END 2023-10-17 23:59 | disposition still patient (30) | DRG 189 ==
LOC: SA → SA1 05-13 17:54 → SA 05-16 17:59
PROVIDERS: ADMIT Internal Medicine; ATTEND Internal Medicine
DX: J96.11 Chronic respiratory failure with hypoxia (principal); U07.1 COVID-19; G91.2 (Idiopathic) normal pressure hydrocephalus; G93.1 Anoxic brain damage, not elsewhere classified; R40.3 Persistent vegetative state; J98.11 Atelectasis; E78.1 Pure hyperglyceridemia; G40.909 Epilepsy, unspecified, not intractable, without status epilepticus; K21.9 Gastro-esophageal reflux disease without esophagitis; R13.10 Dysphagia, unspecified; Z93.1 Gastrostomy status; Z93.0 Tracheostomy status; Z98.2 Presence of cerebrospinal fluid drainage device; Z88.1 Allergy status to other antibiotic agents; Z86.74 Personal history of sudden cardiac arrest; L71.9 Rosacea, unspecified; K43.9 Ventral hernia without obstruction or gangrene; H10.9 Unspecified conjunctivitis; L73.9 Follicular disorder, unspecified; L89.309 Pressure ulcer of unspecified buttock, unspecified stage
CPT/HCPCS: 36415; 70250; 71045; 74018; 83735; 84100; 85025; 86140; 86580; 94640; A4663; A6209; A9150; C1758; J1644; J2185; J3490; Q9963; U0003

== ENCOUNTER 2022-10-18 22:16 | Inpatient (IN) | payer MEDICARE, OTHER ==
[~2022-10-18] VITALS: Ht 165.1 cm; Wt 73.5 kg
--- NOTE | 2022-10-18 22:39 | NUR ---
Dr Carrero at bedside MSE in progress
[2022-10-18] MEDS ORDERED: IPRATROPIUM BROMIDE 0.5 MG/2.5 ML NEBU NEB ONE (22:45)
[2022-10-18] MEDS ORDERED: MEROPENEM 1,000 MG in IV NORMAL SALINE 100 ML IV ONE (22:45)
[2022-10-18] MEDS ORDERED: IV NORMAL SALINE 1000 ML BAG IV ONE (22:45)
[2022-10-18] MEDS ORDERED: ALBUTEROL SULFATE 2.5 MG/3 ML NEBU NEB ONE (22:45)
[2022-10-18] MEDS ORDERED: VANCOMYCIN IV 1,000 MG in IV DEXTROSE 5% 250 ML IV ONE (22:45)
[2022-10-18] MEDS ORDERED: MEROPENEM 1GM/NS 100ML IVPB **ER PYXIS ONLY IV ONE (22:48)
[2022-10-18] MEDS ORDERED: VANCOMYCIN IV 200 ML ONE (22:48)
[2022-10-18] MEDS ORDERED: IPRATROPIUM BROMIDE 0.5 MG/2.5 ML NEBU ONE (23:03)
[2022-10-18] MEDS ORDERED: ALBUTEROL SULFATE 2.5 MG/3 ML NEBU ONE (23:03)
[2022-10-18 23:19] LABS: HEMATOCRIT 39.2 % (36.7-47.1); MEAN CORPUSCULAR HEMOGLOBIN 30.8 uug (23.8-33.4); MEAN CORPUSCULAR VOLUME 90.4 fL (73.0-96.2); PLATELET COUNT (AUTO) 197 K/uL (152-348)
[2022-10-18 23:26] LABS: CREATININE 0.8 mg/dL (0.6-1.3); POTASSIUM 3.7 mmol/L (3.5-5.1)
[2022-10-18 23:30] LABS: BAND % (MANUAL) 2 % (0-10); LYMPHOCYTES % (MANUAL) 12 % (20-40); MONOCYTES % (MANUAL) 10 % (2-10); NEUTROPHILS % (MANUAL) 76 % (42-75)
--- NOTE | 2022-10-18 23:35 | NUR ---
Patient saturating @79%. notified
--- NOTE | 2022-10-18 23:36 | NUR ---
Called Leonardo LUND Made aware about patient's SpO2
[2022-10-18] MEDS ORDERED: DOCU-141 GT (23:54)
[2022-10-18] MEDS ORDERED: KETO15CR2 TP (23:54)
[2022-10-18 23:58] LABS: *BILIRUBIN,URIN NEGATIVE (NEGATIVE); *BLOOD, URINE NEGATIVE (NEGATIVE); *CLARITY,URINE CLEAR (CLEAR); *COLOR,URINE YELLOW (YELLOW); *KETONES,URINE TRACE (NEGATIVE); *UROBILINOGEN,URINE 0.2 E.U./dl (NORMAL); LEUKOCYTE ESTERASE ,URINE NEGATIVE (NEGATIVE); NITRITE, URINE NEGATIVE (NEGATIVE); PH,URINE 6.5 (5.0-8.0); UGLUCOSE NEGATIVE (NEGATIVE)
--- NOTE | 2022-10-19 00:31 | NUR ---
PATIENT IN ER, ON TRACH C0LLAR , ORDERED 1 HOUR NEB VIA TRACH WITH 10MG ALBUTEROL/ 0.5MG ATROVENT, @ 23:00 - GOOD PROD. COUGH, SUCTIONED, LIGHT PALE YELL. TINGE SECRETIONS, STRONG COUGH; DE SAT ONCE CALLED TO ER, PT PLACED ON 10LM; VIA TRACH WAS 98% SAT , STABLE WILL MONITOR CLOSELY Addendum: 10/19/22 at 0034 by ELIO HENRY Amended: Links added.
--- NOTE | 2022-10-19 01:09 | NUR ---
called [facility] for panel call. Maranda DIRECTOR SUPPLIER QUALITY - aviation safety officer
--- NOTE | 2022-10-19 01:11 | NUR ---
called 3rd floor for TELE bed. Saeed CAGLE will call back for bed assignment
--- NOTE | 2022-10-19 01:12 | NUR ---
Saeed RN called back, patient assigned to room 324
--- NOTE | 2022-10-19 01:18 | NUR ---
Rose Marie Low DIVEMASTER called, patient has been accepted
[2022-10-19] MEDS ORDERED: ONDANSETRON 4 MG/2 ML VIAL IV PRN (02:15)
[2022-10-19] MEDS ORDERED: DEXAMETHASONE SOD PHOSPHATE 4 MG INJ IV ONE (02:15)
[2022-10-19] MEDS ORDERED: ALBUTEROL SULFATE 8 GM HFA.AER.AD IH PRN (02:15)
[2022-10-19] MEDS ORDERED: ACETAMINOPHEN 650 MG/20.3 ML LIQUID UDC GT PRN (02:15)
--- NOTE | 2022-10-19 03:11 | NUR ---
Pt. admitted to TELE , under care of Maranda DIRECTOR OF ENVIRONMENTAL SERVICES Belongs List completed
[2022-10-19 03:58] VITALS: BP 139/62
--- NOTE | 2022-10-19 04:30 | NUR ---
Pt admitted to room 324; pt is febrile at 104F; cooling measures done and to be given tylenol; oral care and trache care done; suctioned copious white secretions orally and via trache; incontinence care done; continue to monitor; continue plan of care.
--- NOTE | 2022-10-19 05:23 | NUR ---
PER BETHANIE @ the lab: COVID PCR received yesterday while pt was in 4th floor; observed PCR order by Maranda MARRUFO cancelled by computer.
[2022-10-19] MEDS ORDERED: DEXAMETHASONE SOD PHOSPHATE 10 MG INJ ONE (05:43)
[2022-10-19] MEDS ORDERED: ALBUTEROL SULFATE 2.5 MG/3 ML NEBU NEB PRN (05:45)
[2022-10-19] MEDS ORDERED: [UNRECOGNIZED DRUG - CODE] TP (05:51)
[2022-10-19] MEDS ORDERED: FOCUS FACTOR GT (05:51)
[2022-10-19 06:08] VITALS: BP 130/66
--- NOTE | 2022-10-19 06:12 | NUR ---
latest temp 101.5; continue cooling measures; continue to monitor.
[2022-10-19 07:15] LABS: HEMATOCRIT 37.4 % (36.7-47.1); MEAN CORPUSCULAR HEMOGLOBIN 30.9 uug (23.8-33.4); MEAN CORPUSCULAR VOLUME 91.5 fL (73.0-96.2); PLATELET COUNT (AUTO) 173 K/uL (152-348)
[2022-10-19 07:37] LABS: BILIRUBIN,TOTAL 0.2 mg/dL (0.2-1.0); CREATININE 0.8 mg/dL (0.6-1.3); MAGNESIUM 1.7 mg/dL (1.8-2.4); PHOSPHOROUS 2.7 mg/dL (2.5-4.9); POTASSIUM 3.6 mmol/L (3.5-5.1); TOTAL PROTEIN, SERUM 7.2 g/dL (6.4-8.2)
--- NOTE | 2022-10-19 08:00 | NUR ---
Temp 99.7 Suctioned patient. Repositioned pt for comfort. Started G tube feeding as ordered. No residual noted. G tube audible in stomach. Call light is within reach. Pt on droplet isolation. Pt is in no acute distress. Pt comfortable in bed.
[2022-10-19 08:20] VITALS: BP 110/58
[2022-10-19] MEDS ORDERED: ACETAMINOPHEN 650 MG/20 ML UDC- SA PATIENTS-PAIN ONLY GT PRN (08:30)
[2022-10-19] MEDS ORDERED: KETOCONAZOLE 2% CREAM 30 GM TUBE TP SCH (08:30)
[2022-10-19] MEDS ORDERED: BISACODYL 10 MG SUPP.RECT RC PRN (08:30)
[2022-10-19] MEDS ORDERED: JEVITY 1.2 1000 ML LIQUID GT SCH (08:30)
[2022-10-19] MEDS ORDERED: REMEDY ESSENTIAL ZINC PASTE 113 GM TOP PRN (08:45)
[2022-10-19] MEDS ORDERED: MAGNESIUM OXIDE 400 MG TABLET GT ONE (08:45)
[2022-10-19] MEDS ORDERED: POTASSIUM CHLORIDE 50 ML IV SCH (08:45)
[2022-10-19] MEDS ORDERED: DOCUSATE SODIUM 100 MG CAPSULE PO SCH (09:00)
[2022-10-19] MEDS ORDERED: MEROPENEM 500 MG in IV NORMAL SALINE 50 ML IV SCH (09:00)
[2022-10-19] MEDS ORDERED: Medication Not On Formulary EA (Heparin Sodium,Porcine (Heparin Sodium) 5,000 UNIT) SUBCUT SCH (09:00)
[2022-10-19] MEDS: DOCUSATE SODIUM 100 MG/10 ML LIQUID UDC GT SCH ×2 (09:30→20:26)
[2022-10-19] MEDS: BACLOFEN 10 MG TABLET GT SCH ×3 (09:30→16:41)
[2022-10-19] MEDS: JEVITY 1.2 1000 ML LIQUID GT PRN (09:31)
[2022-10-19] MEDS: MEROPENEM 1 G in IV NORMAL SALINE 100 ML IV SCH ×2 (09:31→16:40)
[2022-10-19] MEDS: HEPARIN SODIUM,PORCINE 5,000 UNITS/ML VIAL SQ SCH ×2 (09:31→20:26)
[2022-10-19] MEDS: LORATADINE 10 MG TABLET GT SCH (09:34)
[2022-10-19] MEDS: PANTOPRAZOLE ORAL SUSPENSION 40 MG SUSPDR.PKT GT SCH (09:35)
[2022-10-19 12:04] VITALS: BP 117/71
--- NOTE | 2022-10-19 16:00 | NUR ---
current temp 98.4 Suctioned pt and repositioned for comfort. Pt on [employer] bed.
[2022-10-19 16:37] VITALS: BP 101/54
--- NOTE | 2022-10-19 18:00 | NUR ---
Covid swab done and sent to lab. Pt is in no acute distress. Call light is within reach. Frequent suction done.
[2022-10-19 20:00] VITALS: BP 105/69
[2022-10-19] MEDS: OMEGA-3 FATTY ACIDS/FISH OIL CAPSULE GT SCH (20:26)
[2022-10-19] MEDS: ACETAMINOPHEN 650 MG/20.3 ML LIQUID UDC GT PRN (21:00)
[2022-10-20] VITALS: BP 102/71
[2022-10-20] MEDS: MEROPENEM 1 G in IV NORMAL SALINE 100 ML IV SCH ×3 (00:39→16:35)
[2022-10-20] MEDS: LORATADINE 10 MG TABLET GT SCH (05:15)
[2022-10-20] MEDS: PANTOPRAZOLE ORAL SUSPENSION 40 MG SUSPDR.PKT GT SCH (05:15)
[2022-10-20] MEDS: CHOLECALCIFEROL 1,000 UNIT TABLET GT SCH (05:16)
[2022-10-20] MEDS: ACETAMINOPHEN 650 MG/20.3 ML LIQUID UDC GT PRN ×2 (05:59→17:56)
[2022-10-20] MEDS ORDERED: Medication Not On Formulary EA (Omeprazole 20 MG) GT SCH (06:00)
[2022-10-20 06:09] VITALS: BP 102/65
[2022-10-20 07:22] LABS: HEMATOCRIT 40.7 % (36.7-47.1); PLATELET COUNT (AUTO) 189 K/uL (152-348)
[2022-10-20 07:37] LABS: BILIRUBIN,TOTAL 0.2 mg/dL (0.2-1.0); CREATININE 0.7 mg/dL (0.6-1.3); MAGNESIUM 2.2 mg/dL (1.8-2.4); PHOSPHOROUS 3.4 mg/dL (2.5-4.9); POTASSIUM 3.9 mmol/L (3.5-5.1); TOTAL PROTEIN, SERUM 7.8 g/dL (6.4-8.2)
--- NOTE | 2022-10-20 08:00 | NUR ---
awake with eyes open, contracted, 6L02 via tracheostomy sat at 99%, suctioned of thin whitish phlegm small amount, oral care done, repositioned to side with heels off loaded, GT clamped- tube fdg scheuled at 10am, dsg at site changed, needs attended and safety measures maintained
[2022-10-20] MEDS: BACLOFEN 10 MG TABLET GT SCH ×3 (08:41→16:35)
[2022-10-20] MEDS: DOCUSATE SODIUM 100 MG/10 ML LIQUID UDC GT SCH ×2 (08:41→21:13)
[2022-10-20] MEDS: HEPARIN SODIUM,PORCINE 5,000 UNITS/ML VIAL SQ SCH ×2 (08:44→21:14)
--- NOTE | 2022-10-20 10:00 | NUR ---
jevity 1.2 started as scheduled via GT, no residual noted
[2022-10-20] MEDS: JEVITY 1.2 1000 ML LIQUID GT PRN (10:15)
[2022-10-20 10:58] VITALS: BP 97/62
--- NOTE | 2022-10-20 13:50 | NUR ---
peripheral IV site swollen- pt is hard stick, called Dr Wilson and midline ordered
--- NOTE | 2022-10-20 15:30 | NUR ---
midline nurse here and placed on right upper arm
[2022-10-20 15:46] VITALS: BP 94/65
--- NOTE | 2022-10-20 18:16 | NUR ---
suctioned of thin secretions via trache,no distress noted repositioned and washed and kept clean and dry, no distress noted, remains on t-piece at 6L 02 sat at 98-100%, tele SR 70's , all needs attended and met, safety measures maintained
[2022-10-20 20:00] VITALS: BP_SYST 105; BP_SYST 110; BP_DIAS 65; BP_DIAS 69
[2022-10-20] MEDS: OMEGA-3 FATTY ACIDS/FISH OIL CAPSULE GT SCH (21:13)
[2022-10-21] MEDS: MEROPENEM 1 G in IV NORMAL SALINE 100 ML IV SCH ×3 (00:25→18:27)
[2022-10-21 04:00] VITALS: BP 111/66
[2022-10-21] MEDS: CHOLECALCIFEROL 1,000 UNIT TABLET GT SCH (06:00)
[2022-10-21] MEDS: LORATADINE 10 MG TABLET GT SCH (06:00)
[2022-10-21] MEDS: PANTOPRAZOLE ORAL SUSPENSION 40 MG SUSPDR.PKT GT SCH (06:00)
[2022-10-21 07:14] LABS: HEMATOCRIT 38.2 % (36.7-47.1); MEAN CORPUSCULAR HEMOGLOBIN 31.2 uug (23.8-33.4); MEAN CORPUSCULAR VOLUME 91.5 fL (73.0-96.2); PLATELET COUNT (AUTO) 190 K/uL (152-348)
[2022-10-21 07:29] LABS: CREATININE 0.7 mg/dL (0.6-1.3); MAGNESIUM 1.8 mg/dL (1.8-2.4); PHOSPHOROUS 3.1 mg/dL (2.5-4.9)
[2022-10-21] MEDS: DOCUSATE SODIUM 100 MG/10 ML LIQUID UDC GT SCH ×2 (09:44→22:35)
[2022-10-21] MEDS: BACLOFEN 10 MG TABLET GT SCH ×3 (09:44→18:23)
[2022-10-21] MEDS: HEPARIN SODIUM,PORCINE 5,000 UNITS/ML VIAL SQ SCH ×2 (09:46→22:37)
[2022-10-21] MEDS: ALBUTEROL SULFATE 2.5 MG/3 ML NEBU NEB SCH ×3 (11:30→21:31)
[2022-10-21] MEDS: IPRATROPIUM BROMIDE 0.5 MG/2.5 ML NEBU NEB SCH ×3 (11:30→21:31)
--- NOTE | 2022-10-21 11:33 | NUR ---
DR DOMINGUEZ HERE SEEN PATIENT WITH NEW ORDERS AND NOTED.
[2022-10-21 11:46] VITALS: BP 105/53
[2022-10-21] MEDS: ACETAMINOPHEN 650 MG/20.3 ML LIQUID UDC GT PRN (12:58)
--- NOTE | 2022-10-21 12:58 | NUR ---
TEMP AT THIS TIME IS 100.6 MEDICATED WITH TYLENOL COOLING MEASURES STARTED MADE COMFORTABLE WILL CONTINUE TO OBSERVE.
[2022-10-21] MEDS: JEVITY 1.2 1000 ML LIQUID GT PRN (13:15)
[2022-10-21 15:45] VITALS: BP 106/60
--- NOTE | 2022-10-21 18:00 | NUR ---
TOLERATE GT FEEDINGS ORDERED WITH NO GASTRIC RESIDUAL TURNED AND REPOSITIONED TRACT INTACT TO TRACH COLLAR MASK AT 5L/M FREQUENT SUCTIONING WITH THICK SECRETIONS TRACH CARE DONE MAX ASSIST FOR ALL ADL REMAIN ON COVID ISOLATION AND PRECAUTION WILL CONTINUE TO OBSERVE.
[2022-10-21 20:00] VITALS: BP 123/68
[2022-10-21] MEDS: OMEGA-3 FATTY ACIDS/FISH OIL CAPSULE GT SCH (22:36)
[2022-10-22 00:11] VITALS: BP 125/71
[2022-10-22] MEDS: MEROPENEM 1 G in IV NORMAL SALINE 100 ML IV SCH ×3 (00:27→18:25)
[2022-10-22 04:00] VITALS: BP 118/64
[2022-10-22] MEDS: LORATADINE 10 MG TABLET GT SCH (05:17)
[2022-10-22] MEDS: PANTOPRAZOLE ORAL SUSPENSION 40 MG SUSPDR.PKT GT SCH (05:17)
[2022-10-22] MEDS: CHOLECALCIFEROL 1,000 UNIT TABLET GT SCH (05:17)
[2022-10-22 07:10] LABS: HEMATOCRIT 39.8 % (36.7-47.1); MEAN CORPUSCULAR HEMOGLOBIN 30.7 uug (23.8-33.4); MEAN CORPUSCULAR VOLUME 91.9 fL (73.0-96.2); PLATELET COUNT (AUTO) 182 K/uL (152-348)
--- NOTE | 2022-10-22 07:30 | NUR ---
NIGHT REPORT: 1) SAFETY: (a)Patient has iv access LAC 20G - saline locked, however, on IV ATB. (b) No sign of infection, inflammation observed, site is patent, intact and flushing. 2) BREATHING: No signs of SOB - patient has trach - needs suctioning frequently - on 4liters. 3) MOBILITY: Patient is bed bound - bed alarm activated. 4) SKIN:Intact, no rash or discoloration observed. 5) PAIN: No c/o of pain or non verbal sign of pain. 6) EATING & DRINKING: NPO - has a PEG and Jevity 1.2 running at 65ml/hr. No residual, or vomiting. PLAN: (i) Continue to be on PEG feeds. (ii)Patient needs all care
--- NOTE | 2022-10-22 07:30 | NUR ---
REPORT GIVEN TO GURJIT NUÑEZ
[2022-10-22] MEDS: ALBUTEROL SULFATE 2.5 MG/3 ML NEBU NEB SCH ×4 (07:35→20:15)
[2022-10-22] MEDS: IPRATROPIUM BROMIDE 0.5 MG/2.5 ML NEBU NEB SCH ×4 (07:35→20:15)
[2022-10-22 07:36] LABS: CREATININE 0.7 mg/dL (0.6-1.3); MAGNESIUM 2.1 mg/dL (1.8-2.4); PHOSPHOROUS 3.6 mg/dL (2.5-4.9)
[2022-10-22 08:44] LABS: NEUTROPHILS % (MANUAL) 0 % (42-75)
--- NOTE | 2022-10-22 10:00 | NUR ---
PEG feed started and running as per regime.
--- NOTE | 2022-10-22 10:00 | NUR ---
Patient requiring frequent suctioning and turning
[2022-10-22] MEDS: ACETAMINOPHEN 650 MG/20.3 ML LIQUID UDC GT PRN (11:25)
[2022-10-22] MEDS: BACLOFEN 10 MG TABLET GT SCH ×3 (11:25→18:26)
[2022-10-22] MEDS: DOCUSATE SODIUM 100 MG/10 ML LIQUID UDC GT SCH ×2 (11:26→21:11)
[2022-10-22 11:40] VITALS: BP 116/55
[2022-10-22] MEDS: HEPARIN SODIUM,PORCINE 5,000 UNITS/ML VIAL SQ SCH ×2 (12:18→21:13)
[2022-10-22 16:30] VITALS: BP 106/69
--- NOTE | 2022-10-22 16:45 | NUR ---
Patient's mother called to check on patient - will call later
--- NOTE | 2022-10-22 18:30 | NUR ---
Will endorse care accordingly to night nurse.
--- NOTE | 2022-10-22 19:45 | NUR ---
Checked on patient and needed suctioning accordingly
[2022-10-22 20:00] VITALS: BP 118/70
[2022-10-22] MEDS: OMEGA-3 FATTY ACIDS/FISH OIL CAPSULE GT SCH (21:11)
--- NOTE | 2022-10-22 21:22 | NUR ---
PATIENT COVID POSITIVE, SUCTION, NO NEB RX GIVEN .Ravi CAMPUZANO WATERSHED COORDINATOR Addendum: 10/22/22 at 2122 by ELIO CAMPUZANO RT Amended: Links added.
[2022-10-23] VITALS: BP 117/62
[2022-10-23] MEDS: MEROPENEM 1 G in IV NORMAL SALINE 100 ML IV SCH ×3 (01:06→17:50)
[2022-10-23 04:00] VITALS: BP 126/73
[2022-10-23] MEDS: PANTOPRAZOLE ORAL SUSPENSION 40 MG SUSPDR.PKT GT SCH (06:01)
[2022-10-23] MEDS: LORATADINE 10 MG TABLET GT SCH (06:01)
[2022-10-23] MEDS: CHOLECALCIFEROL 1,000 UNIT TABLET GT SCH (06:01)
[2022-10-23 06:58] LABS: HEMATOCRIT 41.5 % (36.7-47.1); MEAN CORPUSCULAR HEMOGLOBIN 30.3 uug (23.8-33.4); MEAN CORPUSCULAR VOLUME 91.2 fL (73.0-96.2); PLATELET COUNT (AUTO) 207 K/uL (152-348)
--- NOTE | 2022-10-23 07:08 | NUR ---
Patient slept intermittently, suctioned as needed. No acute distress noted. Tolerated GT feeding. Repositioned, needs assessed and attended to.
[2022-10-23 07:09] LABS: CREATININE 0.7 mg/dL (0.6-1.3); MAGNESIUM 2.1 mg/dL (1.8-2.4); PHOSPHOROUS 3.3 mg/dL (2.5-4.9); POTASSIUM 4.4 mmol/L (3.5-5.1)
[2022-10-23 07:39] LABS: NEUTROPHILS % (MANUAL) 0 % (42-75)
[2022-10-23] MEDS: IPRATROPIUM BROMIDE 0.5 MG/2.5 ML NEBU NEB SCH ×4 (08:25→19:39)
[2022-10-23] MEDS: ALBUTEROL SULFATE 2.5 MG/3 ML NEBU NEB SCH ×4 (08:25→19:39)
[2022-10-23] MEDS: DOCUSATE SODIUM 100 MG/10 ML LIQUID UDC GT SCH ×2 (09:21→21:14)
[2022-10-23] MEDS: BACLOFEN 10 MG TABLET GT SCH ×3 (09:21→17:49)
[2022-10-23] MEDS: HEPARIN SODIUM,PORCINE 5,000 UNITS/ML VIAL SQ SCH ×2 (09:22→21:20)
[2022-10-23 11:43] VITALS: BP 110/66
[2022-10-23 16:06] VITALS: BP 99/66
[2022-10-23 20:00] VITALS: BP 113/63
[2022-10-23] MEDS: OMEGA-3 FATTY ACIDS/FISH OIL CAPSULE GT SCH (21:14)
[2022-10-24] VITALS: BP 120/68
[2022-10-24] MEDS: MEROPENEM 1 G in IV NORMAL SALINE 100 ML IV SCH ×2 (00:22→09:08)
[2022-10-24 04:00] VITALS: BP 108/63
[2022-10-24] MEDS: CHOLECALCIFEROL 1,000 UNIT TABLET GT SCH (06:00)
[2022-10-24] MEDS: PANTOPRAZOLE ORAL SUSPENSION 40 MG SUSPDR.PKT GT SCH (06:00)
[2022-10-24] MEDS: LORATADINE 10 MG TABLET GT SCH (06:00)
[2022-10-24] MEDS: IPRATROPIUM BROMIDE 0.5 MG/2.5 ML NEBU NEB SCH ×3 (07:35→15:07)
[2022-10-24 07:46] LABS: HEMATOCRIT 41.2 % (36.7-47.1); MEAN CORPUSCULAR HEMOGLOBIN 30.2 uug (23.8-33.4); MEAN CORPUSCULAR VOLUME 91.5 fL (73.0-96.2); PLATELET COUNT (AUTO) 207 K/uL (152-348)
--- NOTE | 2022-10-24 08:00 | NUR ---
PT SLEPT DURING THE NIGHT NO SIGNS OF DISTRESSED NOTED. PT IS DAILY WEIGHT IS 162 THIS AM TOLERATED WELL GT FEEDING TURNED OFF ORDERED THIS AM AND TO RESTART AT 1000 PT SUCTIONED PLRN BY NURSE ALONG WITH RT. PT IS ON TELE SHOWING NSR. WILL CONTINUE TO MONITOR.
[2022-10-24 08:07] LABS: CREATININE 0.7 mg/dL (0.6-1.3); MAGNESIUM 2.1 mg/dL (1.8-2.4); PHOSPHOROUS 3.3 mg/dL (2.5-4.9); POTASSIUM 4.4 mmol/L (3.5-5.1)
[2022-10-24] MEDS: BACLOFEN 10 MG TABLET GT SCH ×2 (09:06→12:37)
[2022-10-24] MEDS: DOCUSATE SODIUM 100 MG/10 ML LIQUID UDC GT SCH (09:06)
[2022-10-24] MEDS: HEPARIN SODIUM,PORCINE 5,000 UNITS/ML VIAL SQ SCH (09:07)
[2022-10-24 09:51] LABS: NEUTROPHILS % (MANUAL) 0 % (42-75)
[2022-10-24 12:50] VITALS: BP 101/62
[2022-10-24 16:22] VITALS: BP 116/66
== END 2022-10-24 15:05 | DRG 871 ==
LOC: ER 22:20 → TELE3 10-19 00:54
PROVIDERS: ADMIT Internal Medicine; ATTEND Internal Medicine
PROC: 05H533Z Insertion of Infusion Device into Right Subclavian Vein, Percutaneous Approach (ICD-10-PCS; principal; 2022-10-20)
PROC: B546ZZA Ultrasonography of Right Subclavian Vein, Guidance (ICD-10-PCS; 2022-10-20)
DX: A41.89 Other specified sepsis (principal); G92.8 Other toxic encephalopathy; U07.1 COVID-19; J12.82 Pneumonia due to coronavirus disease 2019; G93.1 Anoxic brain damage, not elsewhere classified; D68.59 Other primary thrombophilia; E44.1 Mild protein-calorie malnutrition; J96.11 Chronic respiratory failure with hypoxia; R40.3 Persistent vegetative state; G91.2 (Idiopathic) normal pressure hydrocephalus; E78.1 Pure hyperglyceridemia; G40.909 Epilepsy, unspecified, not intractable, without status epilepticus; Z28.310 Unvaccinated for COVID-19; Z93.0 Tracheostomy status; Z98.2 Presence of cerebrospinal fluid drainage device; Z86.74 Personal history of sudden cardiac arrest; R13.10 Dysphagia, unspecified; K21.9 Gastro-esophageal reflux disease without esophagitis; H10.9 Unspecified conjunctivitis; Z68.27 Body mass index [BMI] 27.0-27.9, adult; Z93.1 Gastrostomy status; Z88.1 Allergy status to other antibiotic agents; L89.309 Pressure ulcer of unspecified buttock, unspecified stage; R73.9 Hyperglycemia, unspecified
CPT/HCPCS: 36415; 70030-TC; 71045; 83605; 83615; 83735; 84100; 84443; 85025; 86140; 87040; 87400; 93005; 94640; 94664; 99082-TC; A4663; A6213; C1758; G0378; J1100; J1644; J2185; J3370; J3480; J3535; J3590; J7040

== ENCOUNTER 2022-12-21 15:22 | Outpatient (CLI) | payer MEDICARE, OTHER ==
[~2022-12-21 15:22] MED LIST changes: +DOCU-141 GT; +FOCUS FACTOR GT; +KETO15CR2 TP; +[UNRECOGNIZED DRUG - CODE] TP
== END 2022-12-21 23:59 | disposition home or self-care (01) ==
LOC: CT 15:22
PROVIDERS: ATTEND Internal Medicine
DX: J34.2 Deviated nasal septum (principal); I51.7 Cardiomegaly; G91.8 Other hydrocephalus
CPT/HCPCS: 70450

== ENCOUNTER 2024-01-03 07:50 | Inpatient (IN) | payer MEDICARE, OTHER ==
[~2024-01-03] VITALS: Ht 167.6 cm; Wt 59.9 kg
[2024-01-03 09:45] VITALS: TEMP 98.6
[2024-01-03] MEDS ORDERED: ROPIVACAINE HCL/PF 0.5% ( 5 MG/ML ) , 20 ML VIAL ONE (09:50)
[2024-01-03] MEDS ORDERED: ALBUMIN HUMAN 5% 500 ML ONE (09:51)
[2024-01-03] MEDS ORDERED: KETAMINE HCL 500 MG/5 ML VIAL ONE (09:51)
[2024-01-03] MEDS ORDERED: ROCURONIUM BROMIDE 50 MG/5 ML VIAL ONE (09:51)
[2024-01-03] MEDS: CLINDAMYCIN PHOSPHATE IV 600 MG in IV DEXTROSE 5% 100 ML IV ONE (10:00)
[2024-01-03] MEDS ORDERED: PROPOFOL 200 MG/20 ML BOTTLE ONE (10:00)
[2024-01-03] MEDS ORDERED: MORPHINE SULFATE 2 MG/1 ML DISP.SYRIN IV PRN (15:15)
[2024-01-03] MEDS ORDERED: ALBUTEROL SULFATE 2.5 MG/3 ML NEBU IH PRN (15:15)
[2024-01-03] MEDS ORDERED: ONDANSETRON 4 MG/2 ML VIAL IV PRN (15:15)
[2024-01-03 15:35] VITALS: O2SAT 98
[2024-01-03] MEDS: IV D5/ 0.9% NACL 1,000 ML IV PRN (15:48)
[2024-01-03 16:00] VITALS: BP 113/74; TEMP 98.2; O2SAT 98
[2024-01-03] MEDS ORDERED: levoFLOXacin 500 MG/D5W 500 MG in PREMIXED 1 EACH IV SCH (17:00)
[2024-01-03] MEDS: METRONIDAZOLE 500 MG/NS 100ML 500 MG in PREMIXED 1 EACH IV SCH (17:14)
[2024-01-03 20:00] VITALS: BP 107/58; TEMP 98.5; O2SAT 96
[2024-01-03] MEDS: levoFLOXacin 500 MG/D5W 500 MG in PREMIXED 1 EACH IV SCH (20:24)
[2024-01-03] MEDS: HEPARIN SODIUM,PORCINE 5,000 UNITS/ML VIAL SQ SCH (20:25)
[2024-01-03 23:00] VITALS: O2SAT 96
[2024-01-04] VITALS (11 sets, daily range): BP systolic 102–127; BP diastolic 66–85; TEMP 97.9–102; O2SAT 94–99
[2024-01-04 08:15] LABS: BASOPHILS % (AUTO) 0.1 % (0.0-2.0); HEMATOCRIT 41.4 % (36.7-47.1); HEMOGLOBIN 14.3 g/dL (12.5-16.3); LYMPHOCYTES # (AUTO) 1.2 K/uL (0.8-4.8); LYMPHOCYTES % (AUTO) 4.8 % (20.5-51.5); MEAN CORPUSCULAR HEMOGLOBIN 32.1 uug (23.8-33.4); MEAN CORPUSCULAR HGB CONC 34 g/dL (32.5-36.3); MEAN CORPUSCULAR VOLUME 93.4 fL (73.0-96.2); MONOCYTES # (AUTO) 2.4 K/uL (0.1-1.30); MONOCYTES % (AUTO) 9.8 % (0.0-11.0); NEUTROPHILS # (AUTO) 20.6 K/uL (1.8-8.9); NEUTROPHILS % (AUTO) 85.3 % (38.5-71.5); PLATELET COUNT (AUTO) 240 K/uL (152-348); RED BLOOD CELL COUNT(AUTO) 4.44 MIL/uL (4.06-5.63); RED CELL DISTRIBUTION WIDTH 12.9 % (12.1-16.2); WHITE BLOOD COUNT (AUTO) 24.2 K/uL (3.6-10.2)
[2024-01-04 08:32] LABS: DIFFERENTIAL COMMENT 1
[2024-01-04 08:34] LABS: ALBUMIN 3.5 g/dL (3.4-5.0); BILIRUBIN,TOTAL 0.7 mg/dL (0.2-1.0); CALCIUM 9.1 mg/dL (8.5-10.1); CREATININE 0.8 mg/dL (0.6-1.3); MAGNESIUM 1.8 mg/dL (1.8-2.4); PHOSPHOROUS 2.4 mg/dL (2.5-4.9); POTASSIUM 3.8 mmol/L (3.5-5.1); TOTAL PROTEIN, SERUM 7.1 g/dL (6.4-8.2)
[2024-01-04] MEDS: ACETAMINOPHEN 650 MG SUPP.RECT RC PRN (08:40)
[2024-01-04 08:41] LABS: THYROID STIMULATING HORMONE 0.334 mIU/mL (0.358-3.740)
[2024-01-04] MEDS: PANTOPRAZOLE SODIUM 40 MG VIAL IV SCH (08:42)
[2024-01-04] MEDS: KETOROLAC TROMETHAMINE 15 MG INJ IVP PRN (08:49)
[2024-01-04] MEDS: SODIUM PHOSPHATE MM 15 MMOL in IV NORMAL SALINE 250 ML IV ONE (18:30)
[2024-01-04] MEDS: LINEZOLID IV 600 MG in PREMIXED 1 EACH IV SCH (21:58)
[2024-01-05] VITALS (11 sets, daily range): BP systolic 110–119; BP diastolic 75–97; TEMP 98.1–99.5; O2SAT 94–98
[2024-01-05 09:41] LABS: BASOPHILS # (AUTO) 0.1 K/UL (0.0-0.2); BASOPHILS % (AUTO) 0.4 % (0.0-2.0); HEMATOCRIT 45.1 % (36.7-47.1); HEMOGLOBIN 15.5 g/dL (12.5-16.3); LYMPHOCYTES # (AUTO) 1.4 K/uL (0.8-4.8); LYMPHOCYTES % (AUTO) 4.6 % (20.5-51.5); MEAN CORPUSCULAR HEMOGLOBIN 31.6 uug (23.8-33.4); MEAN CORPUSCULAR HGB CONC 34 g/dL (32.5-36.3); MEAN CORPUSCULAR VOLUME 92.1 fL (73.0-96.2); MONOCYTES # (AUTO) 1.5 K/uL (0.1-1.30); MONOCYTES % (AUTO) 4.9 % (0.0-11.0); NEUTROPHILS # (AUTO) 26.9 K/uL (1.8-8.9); NEUTROPHILS % (AUTO) 90.1 % (38.5-71.5); PLATELET COUNT (AUTO) 251 K/uL (152-348); RED CELL DISTRIBUTION WIDTH 12.9 % (12.1-16.2); WHITE BLOOD COUNT (AUTO) 29.8 K/uL (3.6-10.2)
[2024-01-05 09:58] LABS: ALBUMIN 2.6 g/dL (3.4-5.0); BILIRUBIN,TOTAL 0.9 mg/dL (0.2-1.0); POTASSIUM 3.6 mmol/L (3.5-5.1); TOTAL PROTEIN, SERUM 6.6 g/dL (6.4-8.2)
[2024-01-05 10:01] LABS: DIFFERENTIAL COMMENT 1
[2024-01-05 10:33] LABS: HIV-1 p24 ANTIGEN NON REACTIVE (NONREACTIVE); HIV-1/2 ANTIBODY NON REACTIVE (NONREACTIVE)
[2024-01-05] MEDS ORDERED: REMEDY ESSENTIAL ZINC PASTE 113 GM TOP PRN (11:00)
[2024-01-05 14:22] LABS: *BLOOD, URINE 3+ (NEGATIVE); *CLARITY,URINE CLEAR (CLEAR); *COLOR,URINE AMBER (YELLOW); *KETONES,URINE TRACE (NEGATIVE); *PROTEIN,URINE 2+ (NEGATIVE); *UROBILINOGEN,URINE 0.2 E.U./dl (NORMAL); LEUKOCYTE ESTERASE ,URINE NEGATIVE (NEGATIVE); NITRITE, URINE NEGATIVE (NEGATIVE); PH,URINE 5.5 (5.0-8.0)
[2024-01-05 14:24] LABS: *BILIRUBIN,URIN 1+ (NEGATIVE); UGLUCOSE 2+ (NEGATIVE)
[2024-01-05 14:58] LABS: BACTERIA,URINE MODERATE /HPF (NONE SEEN); MUCUS,URINE MANY /LPF (0-FEW); RBC,URINE TNTC /HPF (0-3); WBC,URINE 0-3 /HPF (0-3)
[2024-01-05] MEDS ORDERED: BISACODYL 10 MG SUPP.RECT RC PRN (18:00)
[2024-01-05] MEDS: REMEDY ESSENTIAL ZINC PASTE 113 GM TOP SCH (20:51)
[2024-01-06] VITALS (7 sets, daily range): BP systolic 109–155; BP diastolic 71–102; TEMP 97.9–99.2; O2SAT 93–100
[2024-01-06 07:06] LABS: BASOPHILS % (AUTO) 0.1 % (0.0-2.0); HEMATOCRIT 39.5 % (36.7-47.1); HEMOGLOBIN 13.9 g/dL (12.5-16.3); LYMPHOCYTES % (AUTO) 3.5 % (20.5-51.5); MEAN CORPUSCULAR HEMOGLOBIN 31.8 uug (23.8-33.4); MEAN CORPUSCULAR HGB CONC 35 g/dL (32.5-36.3); MEAN CORPUSCULAR VOLUME 90.5 fL (73.0-96.2); MONOCYTES # (AUTO) 1.5 K/uL (0.1-1.30); MONOCYTES % (AUTO) 4.9 % (0.0-11.0); NEUTROPHILS # (AUTO) 27.2 K/uL (1.8-8.9); NEUTROPHILS % (AUTO) 91.5 % (38.5-71.5); PLATELET COUNT (AUTO) 234 K/uL (152-348); RED BLOOD CELL COUNT(AUTO) 4.36 MIL/uL (4.06-5.63); RED CELL DISTRIBUTION WIDTH 13.1 % (12.1-16.2); WHITE BLOOD COUNT (AUTO) 29.7 K/uL (3.6-10.2)
[2024-01-06 07:15] LABS: DIFFERENTIAL COMMENT 1
[2024-01-06 07:18] LABS: ALBUMIN 2.2 g/dL (3.4-5.0); CALCIUM 8.9 mg/dL (8.5-10.1); CREATININE 0.8 mg/dL (0.6-1.3); POTASSIUM 3.1 mmol/L (3.5-5.1); TOTAL PROTEIN, SERUM 6.2 g/dL (6.4-8.2)
[2024-01-06] MEDS: IV NS 1000 ML 1,000 ML IV SCH (09:20)
[2024-01-06 09:47] LABS: ABG BASE EXCESS -11.3 mmol/L (-2.0-2.0); ABG HCO3 14.6 mmol/L (22.0-26.0); ABG PCO2 33.5 mmHg (35.0-48.0); ABG PH 7.257 (7.340-7.440); ABG PO2 61.6 mmHg (75.0-100.0); ABG SITE RIGHT RADIAL; ABG TOTAL HEMOGLOBIN 15.3 G/dL (14.0-18.0); AaDO2 88.3 mmHg; COHb 0.5 % (0.0-3.9); MetHb 0.4 % (0.0-1.5); O2Hb 90.5 % (94.0-97.0)
[2024-01-06] MEDS: POTASSIUM CHLORIDE 50 ML IV SCH (10:08)
[2024-01-06 17:38] LABS: ABG BASE EXCESS -4.4 mmol/L (-2.0-2.0); ABG HCO3 18.4 mmol/L (22.0-26.0); ABG PCO2 27.9 mmHg (35.0-48.0); ABG PH 7.436 (7.340-7.440); ABG PO2 102.1 mmHg (75.0-100.0); ABG SITE RIGHT RADIAL; ABG TOTAL HEMOGLOBIN 13.6 G/dL (14.0-18.0); AaDO2 97.9 mmHg; COHb 0.1 % (0.0-3.9); MetHb 0.4 % (0.0-1.5); O2Hb 97.9 % (94.0-97.0); VT, ABG 450 mL
[2024-01-06] MEDS ORDERED: IV NORMAL SALINE 250 ML IV ONE (19:04)
[2024-01-06] MEDS ORDERED: SWABABLE VALVE TRANSFER SET EA MC ONE (19:04)
[2024-01-06] MEDS ORDERED: IOHEXOL 300MG/ML 100 ML INFUS..BTL ONE (19:04)
[2024-01-06] MEDS ORDERED: DIATR MEGLU/DIATRIZOATE SODIUM 30 ML BOTTLE ONE (19:43)
[2024-01-07] VITALS: BP 111/70; TEMP 97.8; O2SAT 94
[2024-01-07] MEDS: ONDANSETRON 4 MG/2 ML VIAL IV PRN (01:40)
[2024-01-07 04:00] VITALS: BP 110/52; TEMP 97.9; O2SAT 98
[2024-01-07 06:27] LABS: ABG BASE EXCESS -0.1 mmol/L (-2.0-2.0); ABG HCO3 23.1 mmol/L (22.0-26.0); ABG PCO2 33.5 mmHg (35.0-48.0); ABG PH 7.456 (7.340-7.440); ABG PO2 84.4 mmHg (75.0-100.0); ABG SITE RIGHT RADIAL; ABG TOTAL HEMOGLOBIN 15.1 G/dL (14.0-18.0); AaDO2 96.9 mmHg; COHb 0.5 % (0.0-3.9); MetHb 0.4 % (0.0-1.5); O2Hb 96.7 % (94.0-97.0); VT, ABG 450 mL
[2024-01-07 07:22] LABS: CALCIUM 8.5 mg/dL (8.5-10.1); CREATININE 0.8 mg/dL (0.6-1.3); POTASSIUM 3.3 mmol/L (3.5-5.1)
[2024-01-07 07:33] LABS: BILIRUBIN,TOTAL 0.9 mg/dL (0.2-1.0); TOTAL PROTEIN, SERUM 5.7 g/dL (6.4-8.2)
[2024-01-07 07:43] LABS: MAGNESIUM 2.1 mg/dL (1.8-2.4)
[2024-01-07 07:45] VITALS: BP 100/73; TEMP 99.1; O2SAT 100
[2024-01-07 09:04] LABS: BASOPHILS % (AUTO) 0.1 % (0.0-2.0); EOSINOPHILS # (AUTO) 0.1 K/uL (0.0-0.7); EOSINOPHILS % (AUTO) 0.2 % (0.0-7.0); HEMATOCRIT 35.1 % (36.7-47.1); LYMPHOCYTES # (AUTO) 0.8 K/uL (0.8-4.8); LYMPHOCYTES % (AUTO) 3.6 % (20.5-51.5); MEAN CORPUSCULAR HEMOGLOBIN 31.3 uug (23.8-33.4); MEAN CORPUSCULAR HGB CONC 34 g/dL (32.5-36.3); MEAN CORPUSCULAR VOLUME 91.6 fL (73.0-96.2); MONOCYTES % (AUTO) 4.4 % (0.0-11.0); NEUTROPHILS # (AUTO) 20.7 K/uL (1.8-8.9); NEUTROPHILS % (AUTO) 91.7 % (38.5-71.5); PLATELET COUNT (AUTO) 235 K/uL (152-348); RED BLOOD CELL COUNT(AUTO) 3.84 MIL/uL (4.06-5.63); RED CELL DISTRIBUTION WIDTH 13.2 % (12.1-16.2); WHITE BLOOD COUNT (AUTO) 22.6 K/uL (3.6-10.2)
[2024-01-07 09:09] LABS: DIFFERENTIAL COMMENT 1
[2024-01-07] MEDS: POTASSIUM CHLORIDE 50 ML IV SCH (09:32)
[2024-01-07 10:36] LABS: PHOSPHOROUS 0.5 mg/dL (2.5-4.9)
[2024-01-07 11:32] VITALS: BP 102/64; TEMP 98.6; O2SAT 95
[2024-01-07] MEDS ORDERED: POTASSIUM PHOSPHATE MM 15 MMOL in IV NORMAL SALINE 250 ML IV STA (11:45)
[2024-01-07] MEDS: POTASSIUM PHOSPHATE MM 15 MMOL in IV NORMAL SALINE 250 ML IV ONE ×2 (12:19→20:28)
[2024-01-07] MEDS ORDERED: IOHEXOL 300MG/ML 100 ML INFUS..BTL ONE (14:24)
[2024-01-07] MEDS ORDERED: IV NORMAL SALINE 250 ML IV ONE (14:25)
[2024-01-07] MEDS ORDERED: SWABABLE VALVE TRANSFER SET EA MC ONE (14:25)
[2024-01-07 16:12] VITALS: BP 115/80; TEMP 98.7; O2SAT 99
[2024-01-07 20:00] VITALS: BP 107/77; TEMP 99; O2SAT 93
[2024-01-08] VITALS: BP 101/58; TEMP 97.9; O2SAT 98
[2024-01-08 04:00] VITALS: BP 101/67; TEMP 100.4; O2SAT 97
[2024-01-08 07:34] LABS: BASOPHILS % (AUTO) 0.1 % (0.0-2.0); EOSINOPHILS # (AUTO) 0.2 K/uL (0.0-0.7); EOSINOPHILS % (AUTO) 1.1 % (0.0-7.0); HEMATOCRIT 33.4 % (36.7-47.1); HEMOGLOBIN 11.6 g/dL (12.5-16.3); LYMPHOCYTES # (AUTO) 1.3 K/uL (0.8-4.8); LYMPHOCYTES % (AUTO) 6.7 % (20.5-51.5); MEAN CORPUSCULAR HEMOGLOBIN 31.9 uug (23.8-33.4); MEAN CORPUSCULAR HGB CONC 35 g/dL (32.5-36.3); MEAN CORPUSCULAR VOLUME 91.5 fL (73.0-96.2); MONOCYTES # (AUTO) 1.7 K/uL (0.1-1.30); MONOCYTES % (AUTO) 8.8 % (0.0-11.0); NEUTROPHILS # (AUTO) 15.6 K/uL (1.8-8.9); NEUTROPHILS % (AUTO) 83.3 % (38.5-71.5); PLATELET COUNT (AUTO) 228 K/uL (152-348); RED BLOOD CELL COUNT(AUTO) 3.65 MIL/uL (4.06-5.63); RED CELL DISTRIBUTION WIDTH 13.3 % (12.1-16.2); WHITE BLOOD COUNT (AUTO) 18.7 K/uL (3.6-10.2)
[2024-01-08 07:37] VITALS: BP 109/79; TEMP 98; O2SAT 97
[2024-01-08 07:44] LABS: DIFFERENTIAL COMMENT 1
[2024-01-08 07:45] LABS: ALANINE AMINOTRANSFERASE 17 U/L (16-63); ALBUMIN 1.9 g/dL (3.4-5.0); ALKALINE PHOSPHATASE 67 U/L (50-136); ASPARTATE AMINOTRANSFERASE 12 U/L (15-37); BILIRUBIN,TOTAL 0.8 mg/dL (0.2-1.0); CALCIUM 7.9 mg/dL (8.5-10.1); CARBON DIOXIDE 26 mmol/L (21-32); CHLORIDE 114 mmol/L (98-107); CREATININE 0.6 mg/dL (0.6-1.3); GLUCOSE 132 mg/dL (74-106); POTASSIUM 3.1 mmol/L (3.5-5.1); SODIUM SERUM 148 mmol/L (136-145); TOTAL PROTEIN, SERUM 5.7 g/dL (6.4-8.2); UREA NITROGEN, BLOOD 13 mg/dL (7-18)
[2024-01-08 07:48] LABS: PHOSPHOROUS 1.9 mg/dL (2.5-4.9)
[2024-01-08 08:41] LABS: ABG BASE EXCESS -0.3 mmol/L (-2.0-2.0); ABG HCO3 21.8 mmol/L (22.0-26.0); ABG PCO2 28.3 mmHg (35.0-48.0); ABG PH 7.505 (7.340-7.440); ABG PO2 84.8 mmHg (75.0-100.0); ABG SITE RIGHT RADIAL; ABG TOTAL HEMOGLOBIN 12.1 G/dL (14.0-18.0); AaDO2 97.3 mmHg; COHb 0.3 % (0.0-3.9); MetHb 0.3 % (0.0-1.5); O2Hb 96.8 % (94.0-97.0); VT, ABG 450 mL
[2024-01-08] MEDS ORDERED: NORMAL SALINE IV ONE (10:15)
[2024-01-08] MEDS ORDERED: POTASSIUM PHOSPHATE MM IV ONE (10:15)
[2024-01-08 11:19] VITALS: BP 133/76; TEMP 97.6; O2SAT 96
[2024-01-08] MEDS: POTASSIUM PHOSPHATE MM 15 MMOL in IV NORMAL SALINE 250 ML IV ONE ×2 (11:40→21:17)
[2024-01-08] MEDS ORDERED: POTASSIUM PHOSPHATE MM 15 MMOL in IV NORMAL SALINE 250 ML IV ONE (11:45)
[2024-01-08] MEDS ORDERED: POTASSIUM PHOSPHATE MM 7.5 MMOL in IV NORMAL SALINE 97.5 ML IV SCH (13:00)
[2024-01-08 15:41] VITALS: BP 124/71; TEMP 98; O2SAT 100
[2024-01-08 22:15] VITALS: BP 103/62; TEMP 99.7; O2SAT 98
[2024-01-09 00:09] VITALS: BP 119/79; TEMP 100.4; O2SAT 98
[2024-01-09 04:00] VITALS: BP 124/83; TEMP 98.7; O2SAT 99
[2024-01-09 07:15] LABS: BASOPHILS % (AUTO) 0.1 % (0.0-2.0); EOSINOPHILS # (AUTO) 0.2 K/uL (0.0-0.7); EOSINOPHILS % (AUTO) 1.4 % (0.0-7.0); HEMATOCRIT 32.3 % (36.7-47.1); HEMOGLOBIN 11.2 g/dL (12.5-16.3); LYMPHOCYTES # (AUTO) 1.8 K/uL (0.8-4.8); LYMPHOCYTES % (AUTO) 11.3 % (20.5-51.5); MEAN CORPUSCULAR HEMOGLOBIN 31.6 uug (23.8-33.4); MEAN CORPUSCULAR HGB CONC 35 g/dL (32.5-36.3); MEAN CORPUSCULAR VOLUME 91.4 fL (73.0-96.2); MONOCYTES # (AUTO) 1.9 K/uL (0.1-1.30); MONOCYTES % (AUTO) 12.5 % (0.0-11.0); NEUTROPHILS # (AUTO) 11.6 K/uL (1.8-8.9); NEUTROPHILS % (AUTO) 74.7 % (38.5-71.5); PLATELET COUNT (AUTO) 243 K/uL (152-348); RED BLOOD CELL COUNT(AUTO) 3.54 MIL/uL (4.06-5.63); RED CELL DISTRIBUTION WIDTH 13.5 % (12.1-16.2); WHITE BLOOD COUNT (AUTO) 15.5 K/uL (3.6-10.2)
[2024-01-09 07:37] LABS: ALANINE AMINOTRANSFERASE 20 U/L (16-63); ALBUMIN 1.9 g/dL (3.4-5.0); ALKALINE PHOSPHATASE 67 U/L (50-136); ASPARTATE AMINOTRANSFERASE 15 U/L (15-37); BILIRUBIN,TOTAL 0.8 mg/dL (0.2-1.0); CALCIUM 7.8 mg/dL (8.5-10.1); CARBON DIOXIDE 26 mmol/L (21-32); CHLORIDE 114 mmol/L (98-107); CREATININE 0.6 mg/dL (0.6-1.3); GLUCOSE 132 mg/dL (74-106); POTASSIUM 3.3 mmol/L (3.5-5.1); SODIUM SERUM 150 mmol/L (136-145); TOTAL PROTEIN, SERUM 5.7 g/dL (6.4-8.2); UREA NITROGEN, BLOOD 11 mg/dL (7-18)
[2024-01-09 07:42] VITALS: BP 106/75; TEMP 98.9; O2SAT 99
[2024-01-09 07:47] LABS: DIFFERENTIAL COMMENT 1
[2024-01-09 11:48] VITALS: BP 118/73; TEMP 99.8; O2SAT 100
[2024-01-09] MEDS: POTASSIUM CHLORIDE 50 ML IV SCH (13:39)
[2024-01-09 16:00] VITALS: BP 113/56; TEMP 100.4; O2SAT 100
[2024-01-09 20:00] VITALS: BP 128/77; TEMP 100; O2SAT 99
[2024-01-10] VITALS: TEMP 99.7
[2024-01-10 06:04] VITALS: TEMP 99.3
[2024-01-10 07:01] LABS: BASOPHILS % (AUTO) 0.2 % (0.0-2.0); EOSINOPHILS # (AUTO) 0.2 K/uL (0.0-0.7); EOSINOPHILS % (AUTO) 1.5 % (0.0-7.0); HEMATOCRIT 32.3 % (36.7-47.1); HEMOGLOBIN 11.4 g/dL (12.5-16.3); LYMPHOCYTES # (AUTO) 2.5 K/uL (0.8-4.8); LYMPHOCYTES % (AUTO) 15.9 % (20.5-51.5); MEAN CORPUSCULAR HEMOGLOBIN 32.6 uug (23.8-33.4); MEAN CORPUSCULAR HGB CONC 35 g/dL (32.5-36.3); MEAN CORPUSCULAR VOLUME 92.6 fL (73.0-96.2); MONOCYTES # (AUTO) 2.3 K/uL (0.1-1.30); MONOCYTES % (AUTO) 14.8 % (0.0-11.0); NEUTROPHILS # (AUTO) 10.4 K/uL (1.8-8.9); NEUTROPHILS % (AUTO) 67.6 % (38.5-71.5); PLATELET COUNT (AUTO) 217 K/uL (152-348); RED BLOOD CELL COUNT(AUTO) 3.49 MIL/uL (4.06-5.63); RED CELL DISTRIBUTION WIDTH 13.6 % (12.1-16.2); WHITE BLOOD COUNT (AUTO) 15.4 K/uL (3.6-10.2)
[2024-01-10 07:05] LABS: DIFFERENTIAL COMMENT 1
[2024-01-10 07:25] LABS: CALCIUM 7.5 mg/dL (8.5-10.1); CARBON DIOXIDE 25 mmol/L (21-32); CHLORIDE 111 mmol/L (98-107); CREATININE 0.5 mg/dL (0.6-1.3); GLUCOSE 130 mg/dL (74-106); POTASSIUM 3.6 mmol/L (3.5-5.1); SODIUM SERUM 146 mmol/L (136-145); UREA NITROGEN, BLOOD 8 mg/dL (7-18)
[2024-01-10 07:34] LABS: ALANINE AMINOTRANSFERASE 19 U/L (16-63); ALBUMIN 1.8 g/dL (3.4-5.0); ALKALINE PHOSPHATASE 69 U/L (50-136); ASPARTATE AMINOTRANSFERASE 21 U/L (15-37); BILIRUBIN,TOTAL 0.6 mg/dL (0.2-1.0); TOTAL PROTEIN, SERUM 5.5 g/dL (6.4-8.2)
[2024-01-10 07:53] VITALS: BP 111/58; TEMP 99.2; O2SAT 98
[2024-01-10 12:00] VITALS: BP 137/71; TEMP 98.5; O2SAT 100
[2024-01-10] MEDS ORDERED: DIATR MEGLU/DIATRIZOATE SODIUM 30 ML BOTTLE ONE ×2 (14:17→14:49)
[2024-01-10] MEDS ORDERED: IOHEXOL 300MG/ML 100 ML INFUS..BTL ONE (14:17)
[2024-01-10] MEDS ORDERED: SWABABLE VALVE TRANSFER SET EA MC ONE (14:17)
[2024-01-10] MEDS ORDERED: IV NORMAL SALINE 0 ML IV ONE (14:17)
[2024-01-10 16:16] VITALS: BP 117/71; TEMP 98.7; O2SAT 100
[2024-01-10 20:31] VITALS: BP 107/71; TEMP 100.6; O2SAT 98
[2024-01-11] VITALS (7 sets, daily range): BP systolic 112–143; BP diastolic 73–88; TEMP 98.1–100; O2SAT 98–100
[2024-01-11 06:50] LABS: BASOPHILS % (AUTO) 0.3 % (0.0-2.0); EOSINOPHILS # (AUTO) 0.1 K/uL (0.0-0.7); EOSINOPHILS % (AUTO) 0.4 % (0.0-7.0); HEMATOCRIT 32.5 % (36.7-47.1); HEMOGLOBIN 11.3 g/dL (12.5-16.3); LYMPHOCYTES # (AUTO) 1.6 K/uL (0.8-4.8); LYMPHOCYTES % (AUTO) 11.5 % (20.5-51.5); MEAN CORPUSCULAR HGB CONC 35 g/dL (32.5-36.3); MEAN CORPUSCULAR VOLUME 91.8 fL (73.0-96.2); MONOCYTES # (AUTO) 1.7 K/uL (0.1-1.30); NEUTROPHILS # (AUTO) 10.8 K/uL (1.8-8.9); NEUTROPHILS % (AUTO) 75.8 % (38.5-71.5); PLATELET COUNT (AUTO) 274 K/uL (152-348); RED BLOOD CELL COUNT(AUTO) 3.54 MIL/uL (4.06-5.63); RED CELL DISTRIBUTION WIDTH 13.5 % (12.1-16.2); WHITE BLOOD COUNT (AUTO) 14.3 K/uL (3.6-10.2)
[2024-01-11 07:05] LABS: ALANINE AMINOTRANSFERASE 33 U/L (16-63); ALBUMIN 1.8 g/dL (3.4-5.0); ALKALINE PHOSPHATASE 76 U/L (50-136); ASPARTATE AMINOTRANSFERASE 41 U/L (15-37); BILIRUBIN,TOTAL 0.7 mg/dL (0.2-1.0); CALCIUM 8.3 mg/dL (8.5-10.1); CARBON DIOXIDE 29 mmol/L (21-32); CHLORIDE 108 mmol/L (98-107); CREATININE 0.6 mg/dL (0.6-1.3); GLUCOSE 149 mg/dL (74-106); POTASSIUM 3.1 mmol/L (3.5-5.1); SODIUM SERUM 142 mmol/L (136-145); TOTAL PROTEIN, SERUM 5.6 g/dL (6.4-8.2); UREA NITROGEN, BLOOD 6 mg/dL (7-18)
[2024-01-11 07:12] LABS: MAGNESIUM 2.1 mg/dL (1.8-2.4); PHOSPHOROUS 2.9 mg/dL (2.5-4.9)
[2024-01-11 07:32] LABS: DIFFERENTIAL COMMENT 1
[2024-01-11] MEDS: POTASSIUM CHLORIDE 50 ML IV SCH (09:15)
[2024-01-11 14:21] LABS: METAMYELOCYTES % 3 % (0-1)
[2024-01-11 14:22] LABS: LYMPHOCYTES % (MANUAL) 14 % (20-40); MONOCYTES % (MANUAL) 11 % (2-10); NEUTROPHILS % (MANUAL) 72 % (42-75); PLATELET ESTIMATE ADEQUATE
[2024-01-12 00:05] VITALS: BP 125/77; TEMP 98.8; O2SAT 96
[2024-01-12] MEDS: IV NS 1000 ML 1,000 ML IV PRN (03:51)
[2024-01-12 04:00] VITALS: BP 130/76; TEMP 98.6; O2SAT 97
[2024-01-12 06:56] LABS: BASOPHILS % (AUTO) 0.1 % (0.0-2.0); EOSINOPHILS # (AUTO) 0.1 K/uL (0.0-0.7); EOSINOPHILS % (AUTO) 0.4 % (0.0-7.0); HEMATOCRIT 31.3 % (36.7-47.1); HEMOGLOBIN 10.9 g/dL (12.5-16.3); LYMPHOCYTES # (AUTO) 2.2 K/uL (0.8-4.8); LYMPHOCYTES % (AUTO) 14.7 % (20.5-51.5); MEAN CORPUSCULAR HEMOGLOBIN 31.8 uug (23.8-33.4); MEAN CORPUSCULAR HGB CONC 35 g/dL (32.5-36.3); MONOCYTES # (AUTO) 1.8 K/uL (0.1-1.30); MONOCYTES % (AUTO) 12.3 % (0.0-11.0); NEUTROPHILS # (AUTO) 10.8 K/uL (1.8-8.9); NEUTROPHILS % (AUTO) 72.5 % (38.5-71.5); PLATELET COUNT (AUTO) 283 K/uL (152-348); RED BLOOD CELL COUNT(AUTO) 3.43 MIL/uL (4.06-5.63); WHITE BLOOD COUNT (AUTO) 14.9 K/uL (3.6-10.2)
[2024-01-12 07:03] LABS: ALANINE AMINOTRANSFERASE 40 U/L (16-63); ALBUMIN 1.8 g/dL (3.4-5.0); ALKALINE PHOSPHATASE 73 U/L (50-136); ASPARTATE AMINOTRANSFERASE 44 U/L (15-37); BILIRUBIN,TOTAL 0.5 mg/dL (0.2-1.0); CALCIUM 8.1 mg/dL (8.5-10.1); CARBON DIOXIDE 25 mmol/L (21-32); CHLORIDE 107 mmol/L (98-107); CREATININE 0.6 mg/dL (0.6-1.3); GLUCOSE 139 mg/dL (74-106); SODIUM SERUM 139 mmol/L (136-145); TOTAL PROTEIN, SERUM 5.5 g/dL (6.4-8.2); UREA NITROGEN, BLOOD 5 mg/dL (7-18)
[2024-01-12 07:08] LABS: POTASSIUM 2.8 mmol/L (3.5-5.1)
[2024-01-12 07:17] LABS: DIFFERENTIAL COMMENT 1
[2024-01-12 08:00] VITALS: BP 129/79; TEMP 98.8; O2SAT 97
[2024-01-12] MEDS ORDERED: POTASSIUM CHLORIDE 10 MEQ, LIDOCAINE 1% 1 ML in IV DEXTROSE 5% 100 ML IV SCH (09:00)
[2024-01-12] MEDS: POTASSIUM CHLORIDE 50 ML IV SCH (10:19)
[2024-01-12 11:42] VITALS: BP 121/74; TEMP 98.7; O2SAT 98
[2024-01-12 16:00] VITALS: BP 123/73; TEMP 98.4; O2SAT 98
[2024-01-12 20:00] VITALS: BP 123/51; TEMP 99.2; O2SAT 96
[2024-01-12] MEDS: CEFTAZIDIME IV SCH (21:36)
[2024-01-12] MEDS: AVIBACTAM IV SCH (21:36)
[2024-01-12] MEDS: NORMAL SALINE IV SCH (21:36)
[2024-01-13] VITALS (7 sets, daily range): BP systolic 108–127; BP diastolic 62–65; TEMP 97.6–99.6; O2SAT 94–99
[2024-01-13] MEDS ORDERED: TPN/PPN PER PHARMACY IV PRN (15:30)
[2024-01-13 16:20] LABS: BASOPHILS % (AUTO) 0.2 % (0.0-2.0); EOSINOPHILS # (AUTO) 0.1 K/uL (0.0-0.7); EOSINOPHILS % (AUTO) 0.4 % (0.0-7.0); HEMATOCRIT 33.7 % (36.7-47.1); HEMOGLOBIN 11.4 g/dL (12.5-16.3); LYMPHOCYTES % (AUTO) 11.7 % (20.5-51.5); MEAN CORPUSCULAR HEMOGLOBIN 32.2 uug (23.8-33.4); MEAN CORPUSCULAR HGB CONC 34 g/dL (32.5-36.3); MEAN CORPUSCULAR VOLUME 95.5 fL (73.0-96.2); MONOCYTES # (AUTO) 1.7 K/uL (0.1-1.30); NEUTROPHILS # (AUTO) 13.1 K/uL (1.8-8.9); NEUTROPHILS % (AUTO) 77.7 % (38.5-71.5); PLATELET COUNT (AUTO) 230 K/uL (152-348); RED BLOOD CELL COUNT(AUTO) 3.53 MIL/uL (4.06-5.63); RED CELL DISTRIBUTION WIDTH 13.6 % (12.1-16.2); WHITE BLOOD COUNT (AUTO) 16.8 K/uL (3.6-10.2)
[2024-01-13 16:21] LABS: ALANINE AMINOTRANSFERASE 42 U/L (16-63); ALBUMIN 1.9 g/dL (3.4-5.0); ALKALINE PHOSPHATASE 84 U/L (50-136); ASPARTATE AMINOTRANSFERASE 47 U/L (15-37); BILIRUBIN,TOTAL 0.4 mg/dL (0.2-1.0); CALCIUM 7.9 mg/dL (8.5-10.1); CARBON DIOXIDE 22 mmol/L (21-32); CHLORIDE 108 mmol/L (98-107); CREATININE 0.5 mg/dL (0.6-1.3); GLUCOSE 142 mg/dL (74-106); POTASSIUM 3.3 mmol/L (3.5-5.1); SODIUM SERUM 140 mmol/L (136-145); TOTAL PROTEIN, SERUM 5.8 g/dL (6.4-8.2); UREA NITROGEN, BLOOD 5 mg/dL (7-18)
[2024-01-13] MEDS ORDERED: DEXTROSE 50% 50 ML DISP.SYRIN IV PRN (18:30)
[2024-01-13 21:44] LABS: DIFFERENTIAL COMMENT 1
[2024-01-13] MEDS: IV 10% DEXTROSE 1,000 ML IV PRN (23:33)
[2024-01-13] MEDS: BLOOD SUGAR DIAGNOSTIC 1 EACH STRIP VI SCH (23:53)
[2024-01-14] VITALS: BP 129/85; TEMP 98.1; O2SAT 97
[2024-01-14 04:00] VITALS: BP 121/71; TEMP 98; O2SAT 97
[2024-01-14] MEDS: INSULIN REGULAR, HUMAN 300 UNIT/3 ML VIAL SQ PRN (05:09)
[2024-01-14 07:42] VITALS: BP 120/50; TEMP 98.3; O2SAT 97
[2024-01-14 07:46] LABS: BASOPHILS # (AUTO) 0.1 K/UL (0.0-0.2); BASOPHILS % (AUTO) 0.4 % (0.0-2.0); EOSINOPHILS # (AUTO) 0.1 K/uL (0.0-0.7); EOSINOPHILS % (AUTO) 0.6 % (0.0-7.0); HEMATOCRIT 31.5 % (36.7-47.1); LYMPHOCYTES # (AUTO) 1.9 K/uL (0.8-4.8); LYMPHOCYTES % (AUTO) 13.6 % (20.5-51.5); MEAN CORPUSCULAR HEMOGLOBIN 31.5 uug (23.8-33.4); MEAN CORPUSCULAR HGB CONC 35 g/dL (32.5-36.3); MEAN CORPUSCULAR VOLUME 90.3 fL (73.0-96.2); MONOCYTES # (AUTO) 1.6 K/uL (0.1-1.30); MONOCYTES % (AUTO) 11.6 % (0.0-11.0); NEUTROPHILS # (AUTO) 10.4 K/uL (1.8-8.9); NEUTROPHILS % (AUTO) 73.8 % (38.5-71.5); PLATELET COUNT (AUTO) 293 K/uL (152-348); RED BLOOD CELL COUNT(AUTO) 3.49 MIL/uL (4.06-5.63); RED CELL DISTRIBUTION WIDTH 13.3 % (12.1-16.2); WHITE BLOOD COUNT (AUTO) 14.1 K/uL (3.6-10.2)
[2024-01-14 07:59] LABS: ALANINE AMINOTRANSFERASE 35 U/L (16-63); ALKALINE PHOSPHATASE 82 U/L (50-136); ASPARTATE AMINOTRANSFERASE 25 U/L (15-37); BILIRUBIN,TOTAL 0.5 mg/dL (0.2-1.0); CALCIUM 8.2 mg/dL (8.5-10.1); CARBON DIOXIDE 26 mmol/L (21-32); CHLORIDE 105 mmol/L (98-107); CREATININE 0.5 mg/dL (0.6-1.3); GLUCOSE 151 mg/dL (74-106); POTASSIUM 2.9 mmol/L (3.5-5.1); SODIUM SERUM 140 mmol/L (136-145); UREA NITROGEN, BLOOD 3 mg/dL (7-18)
[2024-01-14 08:00] LABS: PHOSPHOROUS 2.3 mg/dL (2.5-4.9)
[2024-01-14 08:08] LABS: DIFFERENTIAL COMMENT 1
[2024-01-14] MEDS ORDERED: POTASSIUM CHLORIDE 20 MEQ POWDER PACKET GT SCH (09:45)
[2024-01-14] MEDS: POTASSIUM CHLORIDE 50 ML IV ONE (11:23)
[2024-01-14] MEDS: POTASSIUM CHLORIDE 50 ML IV SCH (11:26)
[2024-01-14 11:53] VITALS: BP 114/72; TEMP 98.2; O2SAT 98
[2024-01-14] MEDS ORDERED: IV 10% DEXTROSE 1,000 ML IV PRN (13:15)
[2024-01-14] MEDS: [UNRECOGNIZED DRUG - OTHER] IV SCH (14:02)
[2024-01-14] MEDS: POTASSIUM PHOSPHATE MM 15 MMOL in IV NORMAL SALINE 250 ML IV ONE (14:02)
[2024-01-14] MEDS: MVI ADULT IV SCH (14:02)
[2024-01-14] MEDS: TRACE ELEMENTS IV SCH (14:02)
[2024-01-14 16:35] VITALS: BP 117/65; TEMP 97.9; O2SAT 98
[2024-01-14 20:00] VITALS: BP 118/75; TEMP 97.7; O2SAT 98
[2024-01-15 00:05] VITALS: BP 117/73; TEMP 98; O2SAT 97
[2024-01-15 04:06] VITALS: BP 119/71; TEMP 98.5; O2SAT 97
[2024-01-15 06:15] LABS: BASOPHILS % (AUTO) 0.3 % (0.0-2.0); EOSINOPHILS # (AUTO) 0.2 K/uL (0.0-0.7); EOSINOPHILS % (AUTO) 1.5 % (0.0-7.0); HEMATOCRIT 33.5 % (36.7-47.1); HEMOGLOBIN 11.6 g/dL (12.5-16.3); LYMPHOCYTES % (AUTO) 14.2 % (20.5-51.5); MEAN CORPUSCULAR HEMOGLOBIN 31.5 uug (23.8-33.4); MEAN CORPUSCULAR HGB CONC 35 g/dL (32.5-36.3); MEAN CORPUSCULAR VOLUME 90.9 fL (73.0-96.2); MONOCYTES # (AUTO) 1.7 K/uL (0.1-1.30); MONOCYTES % (AUTO) 11.7 % (0.0-11.0); NEUTROPHILS # (AUTO) 10.3 K/uL (1.8-8.9); NEUTROPHILS % (AUTO) 72.3 % (38.5-71.5); PLATELET COUNT (AUTO) 330 K/uL (152-348); RED BLOOD CELL COUNT(AUTO) 3.68 MIL/uL (4.06-5.63); RED CELL DISTRIBUTION WIDTH 13.1 % (12.1-16.2); WHITE BLOOD COUNT (AUTO) 14.3 K/uL (3.6-10.2)
[2024-01-15 06:24] LABS: DIFFERENTIAL COMMENT 1
[2024-01-15 06:32] LABS: ALANINE AMINOTRANSFERASE 35 U/L (16-63); ALBUMIN 2.1 g/dL (3.4-5.0); ALKALINE PHOSPHATASE 73 U/L (50-136); ASPARTATE AMINOTRANSFERASE 16 U/L (15-37); BILIRUBIN,TOTAL 0.5 mg/dL (0.2-1.0); CALCIUM 8.1 mg/dL (8.5-10.1); CARBON DIOXIDE 26 mmol/L (21-32); CHLORIDE 104 mmol/L (98-107); CREATININE 0.5 mg/dL (0.6-1.3); GLUCOSE 159 mg/dL (74-106); MAGNESIUM 1.9 mg/dL (1.8-2.4); POTASSIUM 3.1 mmol/L (3.5-5.1); SODIUM SERUM 138 mmol/L (136-145); TOTAL PROTEIN, SERUM 6.4 g/dL (6.4-8.2); UREA NITROGEN, BLOOD 5 mg/dL (7-18)
[2024-01-15 07:50] VITALS: BP 114/61; TEMP 99.6; O2SAT 100
[2024-01-15] MEDS: IV NS 1000 ML 1,000 ML IV PRN (09:29)
[2024-01-15] MEDS: POTASSIUM CHLORIDE 50 ML IV SCH (09:32)
[2024-01-15 12:00] VITALS: BP 108/68; TEMP 99.5; O2SAT 98
[2024-01-15] MEDS: [UNRECOGNIZED DRUG - OTHER] IV SCH (13:08)
[2024-01-15] MEDS: IV FAT EMULSIONS 20% 250 ML IV ONE (13:08)
[2024-01-15] MEDS: POTASSIUM CHLORIDE IV SCH (13:08)
[2024-01-15] MEDS: SODIUM CHLORIDE IV SCH (13:08)
[2024-01-15 16:35] VITALS: BP 117/75; TEMP 99.6; O2SAT 98
[2024-01-15] MEDS: BLOOD SUGAR DIAGNOSTIC 1 EACH STRIP VI SCH (17:19)
[2024-01-15 20:37] VITALS: BP 116/72; TEMP 98.4; O2SAT 95
[2024-01-16 00:03] VITALS: BP 123/69; TEMP 98.4; O2SAT 99
[2024-01-16] MEDS: TPN BOTTLE #3 IV PRN (02:37)
[2024-01-16 04:00] VITALS: BP 115/72; TEMP 98.9; O2SAT 98
[2024-01-16 07:28] LABS: BASOPHILS % (AUTO) 0.1 % (0.0-2.0); EOSINOPHILS # (AUTO) 0.2 K/uL (0.0-0.7); EOSINOPHILS % (AUTO) 1.5 % (0.0-7.0); HEMATOCRIT 36.9 % (36.7-47.1); HEMOGLOBIN 12.6 g/dL (12.5-16.3); LYMPHOCYTES # (AUTO) 1.7 K/uL (0.8-4.8); LYMPHOCYTES % (AUTO) 12.4 % (20.5-51.5); MEAN CORPUSCULAR HGB CONC 34 g/dL (32.5-36.3); MEAN CORPUSCULAR VOLUME 94.1 fL (73.0-96.2); MONOCYTES # (AUTO) 1.8 K/uL (0.1-1.30); MONOCYTES % (AUTO) 13.2 % (0.0-11.0); NEUTROPHILS # (AUTO) 9.9 K/uL (1.8-8.9); NEUTROPHILS % (AUTO) 72.8 % (38.5-71.5); PLATELET COUNT (AUTO) 237 K/uL (152-348); RED BLOOD CELL COUNT(AUTO) 3.93 MIL/uL (4.06-5.63); RED CELL DISTRIBUTION WIDTH 13.6 % (12.1-16.2); WHITE BLOOD COUNT (AUTO) 13.6 K/uL (3.6-10.2)
[2024-01-16 07:32] LABS: DIFFERENTIAL COMMENT 1
[2024-01-16 08:34] LABS: ALANINE AMINOTRANSFERASE 21 U/L (16-63); ALBUMIN 2.4 g/dL (3.4-5.0); ALKALINE PHOSPHATASE 70 U/L (50-136); ASPARTATE AMINOTRANSFERASE 12 U/L (15-37); BILIRUBIN,TOTAL 0.3 mg/dL (0.2-1.0); CARBON DIOXIDE 26 mmol/L (21-32); CHLORIDE 104 mmol/L (98-107); CREATININE 0.6 mg/dL (0.6-1.3); GLUCOSE 166 mg/dL (74-106); MAGNESIUM 2.1 mg/dL (1.8-2.4); PHOSPHOROUS 2.4 mg/dL (2.5-4.9); POTASSIUM 3.9 mmol/L (3.5-5.1); SODIUM SERUM 138 mmol/L (136-145); TOTAL PROTEIN, SERUM 7.3 g/dL (6.4-8.2); UREA NITROGEN, BLOOD 9 mg/dL (7-18)
[2024-01-16 08:40] LABS: CALCIUM 8.6 mg/dL (8.5-10.1)
[2024-01-16 12:30] VITALS: BP 107/68; TEMP 98.2; O2SAT 99
[2024-01-16] MEDS: TPN IV ONE (12:31)
[2024-01-16 16:00] VITALS: BP 106/66; TEMP 98.4; O2SAT 98
[2024-01-16 20:00] VITALS: BP 98/64; TEMP 99; O2SAT 99
[2024-01-16] MEDS: TPN BAG # 5 IV ONE (23:35)
[2024-01-17] VITALS: BP 123/76; TEMP 99.1; O2SAT 95
[2024-01-17 04:30] VITALS: BP 113/82; TEMP 100; O2SAT 95
[2024-01-17 07:36] VITALS: BP 116/70; TEMP 99.9; O2SAT 95
[2024-01-17 07:57] LABS: BASOPHILS % (AUTO) 0.2 % (0.0-2.0); EOSINOPHILS # (AUTO) 0.2 K/uL (0.0-0.7); EOSINOPHILS % (AUTO) 1.4 % (0.0-7.0); HEMATOCRIT 35.2 % (36.7-47.1); LYMPHOCYTES # (AUTO) 1.9 K/uL (0.8-4.8); LYMPHOCYTES % (AUTO) 11.5 % (20.5-51.5); MEAN CORPUSCULAR HEMOGLOBIN 31.9 uug (23.8-33.4); MEAN CORPUSCULAR HGB CONC 34 g/dL (32.5-36.3); MEAN CORPUSCULAR VOLUME 93.2 fL (73.0-96.2); MONOCYTES # (AUTO) 1.8 K/uL (0.1-1.30); MONOCYTES % (AUTO) 10.7 % (0.0-11.0); NEUTROPHILS # (AUTO) 12.5 K/uL (1.8-8.9); NEUTROPHILS % (AUTO) 76.2 % (38.5-71.5); PLATELET COUNT (AUTO) 352 K/uL (152-348); RED BLOOD CELL COUNT(AUTO) 3.77 MIL/uL (4.06-5.63); RED CELL DISTRIBUTION WIDTH 13.3 % (12.1-16.2); WHITE BLOOD COUNT (AUTO) 16.4 K/uL (3.6-10.2)
[2024-01-17 08:02] LABS: DIFFERENTIAL COMMENT 1
[2024-01-17 08:24] LABS: ALANINE AMINOTRANSFERASE 14 U/L (16-63); ALBUMIN 2.4 g/dL (3.4-5.0); ALKALINE PHOSPHATASE 65 U/L (50-136); ASPARTATE AMINOTRANSFERASE 7 U/L (15-37); BILIRUBIN,TOTAL 0.3 mg/dL (0.2-1.0); CALCIUM 8.5 mg/dL (8.5-10.1); CARBON DIOXIDE 24 mmol/L (21-32); CHLORIDE 104 mmol/L (98-107); CREATININE 0.6 mg/dL (0.6-1.3); GLUCOSE 191 mg/dL (74-106); SODIUM SERUM 136 mmol/L (136-145); UREA NITROGEN, BLOOD 11 mg/dL (7-18)
[2024-01-17 09:04] LABS: MAGNESIUM 2.1 mg/dL (1.8-2.4); PHOSPHOROUS 1.9 mg/dL (2.5-4.9)
[2024-01-17] MEDS ORDERED: TPN IV ONE (10:00)
[2024-01-17 11:36] VITALS: BP 106/64; TEMP 99.6; O2SAT 96
[2024-01-17] MEDS: IV FAT EMULSIONS 20% 250 ML IV ONE (11:51)
[2024-01-17] MEDS: TPN IV ONE ×2 (11:52→21:00)
[2024-01-17] MEDS ORDERED: levETIRAcetam 500 MG/5 ML LIQUID UDC GT SCH (13:15)
[2024-01-17] MEDS: levETIRAcetam IV 500 MG in IV DEXTROSE 5% 100 ML IV SCH (13:53)
[2024-01-17 16:00] VITALS: BP 117/83; TEMP 99.5; O2SAT 97
[2024-01-17 20:48] VITALS: BP 103/68; TEMP 99.2; O2SAT 99
[2024-01-17] MEDS ORDERED: POTASSIUM CHLORIDE IV ONE (21:00)
[2024-01-17] MEDS ORDERED: SODIUM CHLORIDE IV ONE (21:00)
[2024-01-17] MEDS ORDERED: [UNRECOGNIZED DRUG - OTHER] IV ONE (21:00)
[2024-01-18 00:22] VITALS: BP 111/63; TEMP 99.2; O2SAT 96
[2024-01-18 04:00] VITALS: BP 108/57; TEMP 98.9; O2SAT 99
[2024-01-18 06:59] LABS: BASOPHILS % (AUTO) 0.4 % (0.0-2.0); EOSINOPHILS # (AUTO) 0.2 K/uL (0.0-0.7); EOSINOPHILS % (AUTO) 2.4 % (0.0-7.0); HEMATOCRIT 34.9 % (36.7-47.1); HEMOGLOBIN 12.2 g/dL (12.5-16.3); LYMPHOCYTES # (AUTO) 1.5 K/uL (0.8-4.8); LYMPHOCYTES % (AUTO) 15.4 % (20.5-51.5); MEAN CORPUSCULAR HEMOGLOBIN 32.1 uug (23.8-33.4); MEAN CORPUSCULAR HGB CONC 35 g/dL (32.5-36.3); MONOCYTES # (AUTO) 1.3 K/uL (0.1-1.30); MONOCYTES % (AUTO) 14.3 % (0.0-11.0); NEUTROPHILS # (AUTO) 6.4 K/uL (1.8-8.9); NEUTROPHILS % (AUTO) 67.5 % (38.5-71.5); PLATELET COUNT (AUTO) 372 K/uL (152-348); RED CELL DISTRIBUTION WIDTH 13.7 % (12.1-16.2); WHITE BLOOD COUNT (AUTO) 9.4 K/uL (3.6-10.2)
[2024-01-18 07:25] LABS: CALCIUM 8.4 mg/dL (8.5-10.1); CARBON DIOXIDE 26 mmol/L (21-32); CHLORIDE 104 mmol/L (98-107); CREATININE 0.5 mg/dL (0.6-1.3); GLUCOSE 203 mg/dL (74-106); PHOSPHOROUS 2.4 mg/dL (2.5-4.9); POTASSIUM 3.4 mmol/L (3.5-5.1); SODIUM SERUM 138 mmol/L (136-145); UREA NITROGEN, BLOOD 10 mg/dL (7-18)
[2024-01-18 07:33] LABS: DIFFERENTIAL COMMENT 1
[2024-01-18 08:00] VITALS: BP 113/73; TEMP 99; O2SAT 99
[2024-01-18] MEDS ORDERED: TPN IV ONE (08:00)
[2024-01-18] MEDS: TPN IV ONE (09:03)
[2024-01-18] MEDS: POTASSIUM PHOSPHATE MM 15 MMOL in IV NORMAL SALINE 250 ML IV ONE (09:07)
[2024-01-18] MEDS ORDERED: TPN BAG #9 IV SCH ×4 (11:00→20:00)
[2024-01-18 12:00] VITALS: BP 122/75; TEMP 98.7; O2SAT 99
[2024-01-18 16:00] VITALS: BP 117/61; TEMP 97.2; O2SAT 99
[2024-01-18] MEDS: TPN BAG #9 IV SCH (18:07)
[2024-01-18 20:00] VITALS: BP 120/62; TEMP 98.6; O2SAT 99
[2024-01-18] MEDS ORDERED: TPN BAG #10 IV SCH ×2 (23:00)
[2024-01-19 00:36] VITALS: BP 130/70; TEMP 98.2; O2SAT 98
[2024-01-19] MEDS: TPN BAG #10 IV SCH (05:30)
[2024-01-19 06:26] VITALS: BP 113/68; TEMP 98.2; O2SAT 100
[2024-01-19] MEDS ORDERED: TPN BAG #10 IV SCH (07:00)
[2024-01-19 07:58] LABS: BASOPHILS % (AUTO) 0.4 % (0.0-2.0); EOSINOPHILS # (AUTO) 0.2 K/uL (0.0-0.7); EOSINOPHILS % (AUTO) 2.6 % (0.0-7.0); HEMOGLOBIN 11.9 g/dL (12.5-16.3); LYMPHOCYTES # (AUTO) 1.4 K/uL (0.8-4.8); LYMPHOCYTES % (AUTO) 15.4 % (20.5-51.5); MEAN CORPUSCULAR HEMOGLOBIN 31.9 uug (23.8-33.4); MEAN CORPUSCULAR HGB CONC 34 g/dL (32.5-36.3); MEAN CORPUSCULAR VOLUME 93.9 fL (73.0-96.2); MONOCYTES # (AUTO) 1.5 K/uL (0.1-1.30); MONOCYTES % (AUTO) 17.1 % (0.0-11.0); NEUTROPHILS # (AUTO) 5.7 K/uL (1.8-8.9); NEUTROPHILS % (AUTO) 64.5 % (38.5-71.5); PLATELET COUNT (AUTO) 301 K/uL (152-348); RED BLOOD CELL COUNT(AUTO) 3.73 MIL/uL (4.06-5.63); WHITE BLOOD COUNT (AUTO) 8.9 K/uL (3.6-10.2)
[2024-01-19 08:00] VITALS: BP 107/70; TEMP 99.9; O2SAT 99
[2024-01-19 08:08] LABS: DIFFERENTIAL COMMENT 1
[2024-01-19 08:13] LABS: CALCIUM 8.2 mg/dL (8.5-10.1); CARBON DIOXIDE 24 mmol/L (21-32); CHLORIDE 104 mmol/L (98-107); CREATININE 0.5 mg/dL (0.6-1.3); GLUCOSE 213 mg/dL (74-106); MAGNESIUM 2.1 mg/dL (1.8-2.4); PHOSPHOROUS 2.9 mg/dL (2.5-4.9); POTASSIUM 3.7 mmol/L (3.5-5.1); SODIUM SERUM 134 mmol/L (136-145); UREA NITROGEN, BLOOD 10 mg/dL (7-18)
[2024-01-19 08:35] LABS: TRIGLYCERIDES 110 MG/DL (30-150)
[2024-01-19] MEDS: IV FAT EMULSIONS 20% 250 ML IV SCH (09:07)
[2024-01-19 11:56] VITALS: BP 104/77; TEMP 97.9; O2SAT 97
[2024-01-19 14:40] LABS: BAND % (MANUAL) 8 % (0-10); LYMPHOCYTES % (MANUAL) 15 % (20-40); MONOCYTES % (MANUAL) 15 % (2-10); NEUTROPHILS % (MANUAL) 61 % (42-75)
[2024-01-19 14:41] LABS: PLATELET ESTIMATE ADEQUATE
[2024-01-19 16:01] VITALS: BP 103/73; TEMP 99.1; O2SAT 99
[2024-01-19] MEDS: TPN BAG #11 IV SCH (16:31)
[2024-01-19] MEDS: levETIRAcetam IV 500 MG in IV DEXTROSE 5% 100 ML IV ONE (17:31)
[2024-01-19 20:10] VITALS: BP 122/76; TEMP 98.4; O2SAT 99
[2024-01-20 00:20] VITALS: BP 134/75; TEMP 98.2; O2SAT 97
[2024-01-20] MEDS: TPN BAG #12 IV SCH (03:39)
[2024-01-20 04:15] VITALS: BP 95/57; TEMP 99.4; O2SAT 99
[2024-01-20 08:00] VITALS: BP 108/86; TEMP 98.1; O2SAT 99
[2024-01-20 08:26] LABS: BASOPHILS # (AUTO) 0.1 K/UL (0.0-0.2); BASOPHILS % (AUTO) 1.5 % (0.0-2.0); EOSINOPHILS # (AUTO) 0.3 K/uL (0.0-0.7); EOSINOPHILS % (AUTO) 3.3 % (0.0-7.0); HEMATOCRIT 32.6 % (36.7-47.1); HEMOGLOBIN 11.2 g/dL (12.5-16.3); LYMPHOCYTES # (AUTO) 1.7 K/uL (0.8-4.8); LYMPHOCYTES % (AUTO) 21.1 % (20.5-51.5); MEAN CORPUSCULAR HEMOGLOBIN 31.7 uug (23.8-33.4); MEAN CORPUSCULAR HGB CONC 34 g/dL (32.5-36.3); MEAN CORPUSCULAR VOLUME 92.5 fL (73.0-96.2); MONOCYTES # (AUTO) 1.4 K/uL (0.1-1.30); MONOCYTES % (AUTO) 18.3 % (0.0-11.0); NEUTROPHILS # (AUTO) 4.4 K/uL (1.8-8.9); NEUTROPHILS % (AUTO) 55.8 % (38.5-71.5); PLATELET COUNT (AUTO) 279 K/uL (152-348); RED BLOOD CELL COUNT(AUTO) 3.52 MIL/uL (4.06-5.63); RED CELL DISTRIBUTION WIDTH 13.6 % (12.1-16.2); WHITE BLOOD COUNT (AUTO) 7.9 K/uL (3.6-10.2)
[2024-01-20 08:45] LABS: DIFFERENTIAL COMMENT 1
[2024-01-20 08:47] LABS: CALCIUM 8.3 mg/dL (8.5-10.1); CARBON DIOXIDE 28 mmol/L (21-32); CHLORIDE 104 mmol/L (98-107); CREATININE 0.5 mg/dL (0.6-1.3); GLUCOSE 140 mg/dL (74-106); LYMPHOCYTES % (MANUAL) 0 % (20-40); MAGNESIUM 1.8 mg/dL (1.8-2.4); NEUTROPHILS % (MANUAL) 0 % (42-75); PHOSPHOROUS 3.2 mg/dL (2.5-4.9); POTASSIUM 3.5 mmol/L (3.5-5.1); SODIUM SERUM 138 mmol/L (136-145); UREA NITROGEN, BLOOD 9 mg/dL (7-18)
[2024-01-20] MEDS ORDERED: levETIRAcetam IV 500 MG in IV DEXTROSE 5% 100 ML IV SCH (09:15)
== END 2024-01-20 11:05 | disposition short-term general hospital (02) | DRG 853 ==
LOC: DS 07:50 → TELE-TD3 14:21 → TELE3 17:13
PROVIDERS: ADMIT Internal Medicine; ATTEND Internal Medicine
PROC: 0W9G40Z Drainage of Peritoneal Cavity with Drainage Device, Percutaneous Endoscopic Approach (ICD-10-PCS; principal; 2024-01-03)
PROC: 0DNW4ZZ Release Peritoneum, Percutaneous Endoscopic Approach (ICD-10-PCS; 2024-01-03)
PROC: 05HB33Z Insertion of Infusion Device into Right Basilic Vein, Percutaneous Approach (ICD-10-PCS; 2024-01-05)
PROC: 5A1955Z Respiratory Ventilation, Greater than 96 Consecutive Hours (ICD-10-PCS; 2024-01-06)
PROC: 02HV33Z Insertion of Infusion Device into Superior Vena Cava, Percutaneous Approach (ICD-10-PCS; 2024-01-18)
DX: A41.9 Sepsis, unspecified organism (principal); J96.21 Acute and chronic respiratory failure with hypoxia; K63.1 Perforation of intestine (nontraumatic); G93.1 Anoxic brain damage, not elsewhere classified; G91.2 (Idiopathic) normal pressure hydrocephalus; T85.02XA Displacement of ventricular intracranial (communicating) shunt, initial encounter; D68.59 Other primary thrombophilia; T79.7XXA Traumatic subcutaneous emphysema, initial encounter; K66.0 Peritoneal adhesions (postprocedural) (postinfection); R65.20 Severe sepsis without septic shock; K66.8 Other specified disorders of peritoneum; Z98.2 Presence of cerebrospinal fluid drainage device; Z93.0 Tracheostomy status; Z86.74 Personal history of sudden cardiac arrest; Z86.16 Personal history of COVID-19; Z74.09 Other reduced mobility; M62.838 Other muscle spasm; G89.29 Other chronic pain; K43.9 Ventral hernia without obstruction or gangrene; R13.10 Dysphagia, unspecified; K80.20 Calculus of gallbladder without cholecystitis without obstruction; Z93.4 Other artificial openings of gastrointestinal tract status; G40.909 Epilepsy, unspecified, not intractable, without status epilepticus; Z88.1 Allergy status to other antibiotic agents; R79.1 Abnormal coagulation profile; E87.6 Hypokalemia; E83.39 Other disorders of phosphorus metabolism; H10.9 Unspecified conjunctivitis; E78.1 Pure hyperglyceridemia; M62.49 Contracture of muscle, multiple sites
CPT/HCPCS: 36415; 36569; 36600; 70030-TC; 70450; 71045; 82803; 83550; 83605; 83735; 84100; 84443; 84478; 85025; 85730; 86803; 87040; 87806; 93005; 94002; 94003; 94640; 94760; A4649; C1758; C9113; G0378; J1100; J1644; J1815; J1885; J1953; J1956; J2020; J2405; J2795; J3475; J3480; J3490; J7040; J7042; J7131; P9045; Q9963; Q9967

== ENCOUNTER 2024-02-25 20:56 | Outpatient (CLI) | payer MEDICARE, OTHER | END 2024-02-25 23:59 | disposition home or self-care (01) | LOC: CT 20:56 | PROVIDERS: ATTEND Internal Medicine Pulmonary Disease | DX: N20.0 Calculus of kidney (principal); M47.817 Spondylosis without myelopathy or radiculopathy, lumbosacral region; I70.0 Atherosclerosis of aorta ==

== ENCOUNTER 2024-03-07 13:57 | Inpatient (IN) | payer MEDICARE, OTHER ==
[~2024-03-07] VITALS: Ht 167.6 cm; Wt 67.1 kg
[~2024-03-07 13:57] MED LIST changes: +NEOM1OIN19 TP
[2024-03-07] MEDS: IV NORMAL SALINE 1000 ML BAG IV ONE (15:16)
[2024-03-07] MEDS: LORAZEPAM 0.5 MG TABLET PO ONE (15:19)
[2024-03-07] MEDS: ACETAMINOPHEN 650 MG SUPP.RECT RC ONE (15:19)
[2024-03-07 15:35] LABS: LACTIC ACID 2.1 mmol/L (0.4-2.0)
[2024-03-07 15:43] LABS: *BILIRUBIN,URIN NEGATIVE (NEGATIVE); *BLOOD, URINE NEGATIVE (NEGATIVE); *CLARITY,URINE CLEAR (CLEAR); *COLOR,URINE YELLOW (YELLOW); *KETONES,URINE NEGATIVE (NEGATIVE); *PROTEIN,URINE 1+ (NEGATIVE); *UROBILINOGEN,URINE 0.2 E.U./dl (NORMAL); LEUKOCYTE ESTERASE ,URINE NEGATIVE (NEGATIVE); NITRITE, URINE NEGATIVE (NEGATIVE); PH,URINE 6.5 (5.0-8.0); UGLUCOSE 2+ (NEGATIVE)
[2024-03-07 15:54] LABS: RBC,URINE NONE SEEN /HPF (0-3); WBC,URINE 0-3 /HPF (0-3)
[2024-03-07 15:55] LABS: BACTERIA,URINE NONE SEEN /HPF (NONE SEEN); SQUAMOUS EPITHELIAL CELL,UR FEW /HPF (NONE SEEN)
[2024-03-07] MEDS ORDERED: IOHEXOL 300MG/ML 100 ML INFUS..BTL ONE (16:14)
[2024-03-07] MEDS ORDERED: IV NORMAL SALINE 250 ML IV ONE (16:14)
[2024-03-07] MEDS ORDERED: SWABABLE VALVE TRANSFER SET EA MC ONE (16:14)
[2024-03-07 16:16] LABS: ABG BASE EXCESS 2.4 mmol/L (-2.0-2.0); ABG HCO3 25.3 mmol/L (22.0-26.0); ABG PCO2 34.3 mmHg (35.0-48.0); ABG PH 7.486 (7.340-7.440); ABG PO2 89.1 mmHg (75.0-100.0); ABG SITE RIGHT RADIAL; ABG TOTAL HEMOGLOBIN 14.6 G/dL (14.0-18.0); AaDO2 97.4 mmHg; COHb 0.4 % (0.0-3.9); MetHb 0.3 % (0.0-1.5); O2Hb 96.8 % (94.0-97.0); VT, ABG 450 mL
[2024-03-07] MEDS ORDERED: ACETAMINOPHEN 650 MG SUPP.RECT RC ONE (17:49)
[2024-03-07] MEDS ORDERED: BISACODYL 10 MG SUPP.RECT RC PRN (18:00)
[2024-03-07] MEDS ORDERED: ALBUTEROL SULFATE 2.5 MG/3 ML NEBU IH PRN (18:00)
[2024-03-07] MEDS ORDERED: ONDANSETRON 4 MG/2 ML VIAL IV PRN (18:00)
[2024-03-07] MEDS ORDERED: ZOLPIDEM 5 MG TABLET PO PRN (18:00)
[2024-03-07] MEDS ORDERED: HYDROCODONE/APAP 5-325MG TABLET PO PRN (18:00)
[2024-03-07] MEDS ORDERED: MAGNESIUM HYDROXIDE 30 ML LIQUID UDC PO PRN (18:00)
[2024-03-07] MEDS ORDERED: ACETAMINOPHEN 650 MG/20.3 ML LIQUID UDC GT PRN (18:00)
[2024-03-07] MEDS: IV NS 1000 ML 1,000 ML IV PRN (18:48)
[2024-03-07] MEDS: ACETAMINOPHEN 650 MG/20.3 ML LIQUID UDC PO PRN (18:48)
[2024-03-07 20:00] VITALS: BP 118/64; TEMP 99.6; O2SAT 97
[2024-03-07] MEDS: DOCUSATE SODIUM 100 MG/10 ML LIQUID UDC PO SCH (21:00)
[2024-03-07] MEDS: JEVITY 1.2 1000 ML LIQUID GT PRN (21:35)
[2024-03-07] MEDS: OMEGA-3 FATTY ACIDS/FISH OIL CAPSULE GT SCH (21:48)
[2024-03-07] MEDS: METRONIDAZOLE 500 MG TABLET GT SCH (21:48)
[2024-03-07] MEDS: HEPARIN SODIUM,PORCINE 5,000 UNITS/ML VIAL SQ SCH (21:52)
[2024-03-07] MEDS: LINEZOLID IV 600 MG in PREMIXED 1 EACH IV SCH (22:04)
[2024-03-07 22:30] VITALS: TEMP 101
[2024-03-07] MEDS: AVIBACTAM IV SCH (23:17)
[2024-03-07] MEDS: CEFTAZIDIME IV SCH (23:17)
[2024-03-07] MEDS: NORMAL SALINE IV SCH (23:17)
[2024-03-07] MEDS: ACETAMINOPHEN 650 MG/20.3 ML LIQUID UDC GT PRN (23:40)
[2024-03-07 23:44] VITALS: TEMP 101.7
[2024-03-08] VITALS (11 sets, daily range): BP systolic 108–133; BP diastolic 61–86; TEMP 98.2–102.8; O2SAT 99–100
[2024-03-08] MEDS: CHOLECALCIFEROL 1,000 UNIT TABLET GT SCH (06:13)
[2024-03-08] MEDS: PANTOPRAZOLE ORAL SUSPENSION 40 MG SUSPDR.PKT PO SCH (06:14)
[2024-03-08 07:32] LABS: BASOPHILS % (AUTO) 0.5 % (0.0-2.0); EOSINOPHILS % (AUTO) 0.8 % (0.0-7.0); HEMOGLOBIN 12.6 g/dL (12.5-16.3); LYMPHOCYTES # (AUTO) 1.9 K/uL (0.8-4.8); MEAN CORPUSCULAR HEMOGLOBIN 32.4 uug (23.8-33.4); MEAN CORPUSCULAR HGB CONC 35 g/dL (32.5-36.3); MEAN CORPUSCULAR VOLUME 92.5 fL (73.0-96.2); MONOCYTES % (AUTO) 46.7 % (0.0-11.0); NEUTROPHILS # (AUTO) 0.3 K/uL (1.8-8.9); PLATELET COUNT (AUTO) 279 K/uL (152-348); RED BLOOD CELL COUNT(AUTO) 3.89 MIL/uL (4.06-5.63); RED CELL DISTRIBUTION WIDTH 14.3 % (12.1-16.2); WHITE BLOOD COUNT (AUTO) 4.4 K/uL (3.6-10.2)
[2024-03-08 07:50] LABS: DIFFERENTIAL COMMENT 1
[2024-03-08 07:59] LABS: CALCIUM 8.7 mg/dL (8.5-10.1); CREATININE 0.8 mg/dL (0.6-1.3); MAGNESIUM 1.9 mg/dL (1.8-2.4); PHOSPHOROUS 3.4 mg/dL (2.5-4.9); POTASSIUM 4.1 mmol/L (3.5-5.1)
[2024-03-08] MEDS: BACLOFEN 10 MG TABLET GT SCH (08:25)
[2024-03-08] MEDS: LORATADINE 10 MG TABLET GT SCH (08:25)
[2024-03-08 09:00] LABS: *BILIRUBIN,URIN NEGATIVE (NEGATIVE); *BLOOD, URINE NEGATIVE (NEGATIVE); *CLARITY,URINE CLEAR (CLEAR); *COLOR,URINE YELLOW (YELLOW); *KETONES,URINE NEGATIVE (NEGATIVE); *PROTEIN,URINE 1+ (NEGATIVE); *UROBILINOGEN,URINE 0.2 E.U./dl (NORMAL); LEUKOCYTE ESTERASE ,URINE NEGATIVE (NEGATIVE); NITRITE, URINE NEGATIVE (NEGATIVE); UGLUCOSE TRACE (NEGATIVE)
[2024-03-08 10:59] LABS: RBC,URINE NONE SEEN /HPF (0-3); WBC,URINE 0-3 /HPF (0-3)
[2024-03-08 11:00] LABS: BACTERIA,URINE FEW /HPF (NONE SEEN); SQUAMOUS EPITHELIAL CELL,UR FEW /HPF (NONE SEEN)
[2024-03-08] MEDS: KETOCONAZOLE 2% SHAMPOO 120 ML BOTTLE TP SCH (11:54)
[2024-03-08 13:10] LABS: LYMPHOCYTES % (MANUAL) 49 % (20-40); MONOCYTES % (MANUAL) 36 % (2-10); NEUTROPHILS % (MANUAL) 15 % (42-75); PLATELET ESTIMATE ADEQUATE
[2024-03-08] MEDS ORDERED: PANT40TA49 GT (13:10)
[2024-03-08] MEDS ORDERED: CEFT2.5V IV (13:10)
[2024-03-08] MEDS ORDERED: ASCO500C18 GT (13:10)
[2024-03-08 13:11] LABS: ANISOCYTOSIS 1+
[2024-03-08 13:20] LABS: ERYTHROCYTE SEDIMENTATION RATE 84 MM/HR (0-15)
[2024-03-08] MEDS ORDERED: NORM2DIS4 IJ (13:24)
[2024-03-08] MEDS ORDERED: METR500P3 IV (13:24)
[2024-03-08] MEDS ORDERED: LINE600I9 IV (13:24)
[2024-03-08] MEDS ORDERED: METO25TA6 GT (13:24)
[2024-03-08] MEDS ORDERED: MULT-647 GT (13:24)
[2024-03-08] MEDS: MICAFUNGIN SODIUM 100 MG in IV NORMAL SALINE 100 ML IV SCH (17:53)
[2024-03-08] MEDS: METOPROLOL TARTRATE 25 MG TABLET GT SCH (20:23)
[2024-03-09] VITALS (8 sets, daily range): BP systolic 99–131; BP diastolic 66–78; TEMP 98.9–102.4; O2SAT 94–100
[2024-03-09 07:33] LABS: BASOPHILS % (AUTO) 0.7 % (0.0-2.0); EOSINOPHILS # (AUTO) 0.2 K/uL (0.0-0.7); EOSINOPHILS % (AUTO) 3.5 % (0.0-7.0); HEMATOCRIT 36.8 % (36.7-47.1); HEMOGLOBIN 12.8 g/dL (12.5-16.3); LYMPHOCYTES # (AUTO) 2.2 K/uL (0.8-4.8); LYMPHOCYTES % (AUTO) 47.7 % (20.5-51.5); MEAN CORPUSCULAR HEMOGLOBIN 32.8 uug (23.8-33.4); MEAN CORPUSCULAR HGB CONC 35 g/dL (32.5-36.3); MONOCYTES # (AUTO) 1.7 K/uL (0.1-1.30); MONOCYTES % (AUTO) 38.3 % (0.0-11.0); NEUTROPHILS # (AUTO) 0.4 K/uL (1.8-8.9); NEUTROPHILS % (AUTO) 9.8 % (38.5-71.5); PLATELET COUNT (AUTO) 266 K/uL (152-348); RED BLOOD CELL COUNT(AUTO) 3.91 MIL/uL (4.06-5.63); RED CELL DISTRIBUTION WIDTH 14.5 % (12.1-16.2); WHITE BLOOD COUNT (AUTO) 4.5 K/uL (3.6-10.2)
[2024-03-09 07:36] LABS: ALANINE AMINOTRANSFERASE 15 U/L (16-63); ALBUMIN 2.9 g/dL (3.4-5.0); ALKALINE PHOSPHATASE 50 U/L (50-136); ASPARTATE AMINOTRANSFERASE 6 U/L (15-37); BILIRUBIN,TOTAL 0.2 mg/dL (0.2-1.0); CALCIUM 8.9 mg/dL (8.5-10.1); CARBON DIOXIDE 29 mmol/L (21-32); CHLORIDE 101 mmol/L (98-107); CREATININE 0.6 mg/dL (0.6-1.3); GLUCOSE 193 mg/dL (74-106); PHOSPHOROUS 3.6 mg/dL (2.5-4.9); POTASSIUM 4.1 mmol/L (3.5-5.1); SODIUM SERUM 139 mmol/L (136-145); TOTAL PROTEIN, SERUM 7.4 g/dL (6.4-8.2); UREA NITROGEN, BLOOD 8 mg/dL (7-18)
[2024-03-09 08:05] LABS: DIFFERENTIAL COMMENT 1
[2024-03-09] MEDS: REMEDY ESSENTIAL ZINC PASTE 113 GM TP PRN (08:36)
[2024-03-09] MEDS ORDERED: LORAZEPAM 2 MG/1 ML VIAL IV PRN (10:15)
[2024-03-09 16:44] LABS: BAND % (MANUAL) 1 % (0-10); LYMPHOCYTES % (MANUAL) 37 % (20-40); MONOCYTES % (MANUAL) 33 % (2-10); NEUTROPHILS % (MANUAL) 13 % (42-75)
[2024-03-09 16:45] LABS: EOSINOPHILS % (MANUAL) 5 % (0-8); PLATELET ESTIMATE ADEQUATE
[2024-03-10] VITALS: BP 134/77; TEMP 101.3; O2SAT 97
[2024-03-10 02:23] VITALS: TEMP 98.4; O2SAT 97
[2024-03-10 04:00] VITALS: BP 125/68; TEMP 98.5; O2SAT 100
[2024-03-10 07:44] LABS: BASOPHILS % (AUTO) 0.6 % (0.0-2.0); EOSINOPHILS # (AUTO) 0.2 K/uL (0.0-0.7); EOSINOPHILS % (AUTO) 4.8 % (0.0-7.0); HEMATOCRIT 33.1 % (36.7-47.1); HEMOGLOBIN 11.5 g/dL (12.5-16.3); LYMPHOCYTES # (AUTO) 1.8 K/uL (0.8-4.8); LYMPHOCYTES % (AUTO) 36.7 % (20.5-51.5); MEAN CORPUSCULAR HEMOGLOBIN 32.5 uug (23.8-33.4); MEAN CORPUSCULAR HGB CONC 35 g/dL (32.5-36.3); MEAN CORPUSCULAR VOLUME 93.3 fL (73.0-96.2); MONOCYTES # (AUTO) 1.4 K/uL (0.1-1.30); NEUTROPHILS # (AUTO) 1.3 K/uL (1.8-8.9); NEUTROPHILS % (AUTO) 27.9 % (38.5-71.5); PLATELET COUNT (AUTO) 216 K/uL (152-348); RED BLOOD CELL COUNT(AUTO) 3.55 MIL/uL (4.06-5.63); RED CELL DISTRIBUTION WIDTH 13.7 % (12.1-16.2); WHITE BLOOD COUNT (AUTO) 4.8 K/uL (3.6-10.2)
[2024-03-10 07:55] LABS: DIFFERENTIAL COMMENT 1
[2024-03-10 08:14] LABS: CALCIUM 8.8 mg/dL (8.5-10.1); CARBON DIOXIDE 30 mmol/L (21-32); CHLORIDE 103 mmol/L (98-107); CREATININE 0.5 mg/dL (0.6-1.3); GLUCOSE 168 mg/dL (74-106); MAGNESIUM 1.9 mg/dL (1.8-2.4); PHOSPHOROUS 3.7 mg/dL (2.5-4.9); SODIUM SERUM 140 mmol/L (136-145); UREA NITROGEN, BLOOD 7 mg/dL (7-18)
[2024-03-10 08:16] LABS: C-REACTIVE PROTEIN 0.44 mg/dL (0.00-0.30)
[2024-03-10 11:10] VITALS: BP 121/77; TEMP 100; TEMP 98.8; O2SAT 99
[2024-03-10 15:12] VITALS: BP 118/79; TEMP 99.1; O2SAT 94
[2024-03-10 15:54] LABS: BAND % (MANUAL) 1 % (0-10); EOSINOPHILS % (MANUAL) 3 % (0-8); LYMPHOCYTES % (MANUAL) 47 % (20-40); MONOCYTES % (MANUAL) 27 % (2-10); NEUTROPHILS % (MANUAL) 22 % (42-75); PLATELET ESTIMATE ADEQUATE
[2024-03-10 15:55] LABS: ANISOCYTOSIS 1+; TEAR DROP CELLS 1+
[2024-03-10 20:00] VITALS: BP 105/62; TEMP 99.2; O2SAT 100
[2024-03-11] VITALS (7 sets, daily range): BP systolic 109–138; BP diastolic 60–79; TEMP 97.6–100.2; O2SAT 100
[2024-03-11 12:08] LABS: BASOPHILS % (AUTO) 0.7 % (0.0-2.0); EOSINOPHILS # (AUTO) 0.2 K/uL (0.0-0.7); EOSINOPHILS % (AUTO) 5.1 % (0.0-7.0); HEMATOCRIT 32.5 % (36.7-47.1); HEMOGLOBIN 11.4 g/dL (12.5-16.3); LYMPHOCYTES # (AUTO) 1.1 K/uL (0.8-4.8); LYMPHOCYTES % (AUTO) 29.9 % (20.5-51.5); MEAN CORPUSCULAR HEMOGLOBIN 32.4 uug (23.8-33.4); MEAN CORPUSCULAR HGB CONC 35 g/dL (32.5-36.3); MEAN CORPUSCULAR VOLUME 92.5 fL (73.0-96.2); MONOCYTES # (AUTO) 0.7 K/uL (0.1-1.30); MONOCYTES % (AUTO) 20.5 % (0.0-11.0); NEUTROPHILS # (AUTO) 1.6 K/uL (1.8-8.9); NEUTROPHILS % (AUTO) 43.8 % (38.5-71.5); PLATELET COUNT (AUTO) 226 K/uL (152-348); RED BLOOD CELL COUNT(AUTO) 3.51 MIL/uL (4.06-5.63); RED CELL DISTRIBUTION WIDTH 14.5 % (12.1-16.2); WHITE BLOOD COUNT (AUTO) 3.6 K/uL (3.6-10.2)
[2024-03-11 12:12] LABS: DIFFERENTIAL COMMENT 1
[2024-03-11 12:24] LABS: CALCIUM 8.6 mg/dL (8.5-10.1); CARBON DIOXIDE 28 mmol/L (21-32); CHLORIDE 103 mmol/L (98-107); CREATININE 0.6 mg/dL (0.6-1.3); GLUCOSE 184 mg/dL (74-106); PHOSPHOROUS 4.1 mg/dL (2.5-4.9); SODIUM SERUM 138 mmol/L (136-145); UREA NITROGEN, BLOOD 6 mg/dL (7-18)
[2024-03-11 12:28] LABS: NEUTROPHILS % (MANUAL) 0 % (42-75)
[2024-03-11 12:29] LABS: LYMPHOCYTES % (MANUAL) 0 % (20-40)
[2024-03-12 08:00] VITALS: BP 127/79; TEMP 97; O2SAT 99
[2024-03-12 10:51] LABS: BASOPHILS # (AUTO) 0.1 K/UL (0.0-0.2); EOSINOPHILS % (AUTO) 0.1 % (0.0-7.0); HEMATOCRIT 35.8 % (36.7-47.1); HEMOGLOBIN 12.2 g/dL (12.5-16.3); LYMPHOCYTES # (AUTO) 0.4 K/uL (0.8-4.8); LYMPHOCYTES % (AUTO) 5.2 % (20.5-51.5); MEAN CORPUSCULAR HEMOGLOBIN 32.1 uug (23.8-33.4); MEAN CORPUSCULAR HGB CONC 34 g/dL (32.5-36.3); MONOCYTES # (AUTO) 0.5 K/uL (0.1-1.30); MONOCYTES % (AUTO) 5.9 % (0.0-11.0); NEUTROPHILS # (AUTO) 7.2 K/uL (1.8-8.9); NEUTROPHILS % (AUTO) 87.8 % (38.5-71.5); PLATELET COUNT (AUTO) 319 K/uL (152-348); RED BLOOD CELL COUNT(AUTO) 3.81 MIL/uL (4.06-5.63); RED CELL DISTRIBUTION WIDTH 14.6 % (12.1-16.2); WHITE BLOOD COUNT (AUTO) 8.2 K/uL (3.6-10.2)
[2024-03-12 11:01] LABS: DIFFERENTIAL COMMENT 1
[2024-03-12 11:02] LABS: CALCIUM 9.4 mg/dL (8.5-10.1); CREATININE 0.9 mg/dL (0.6-1.3); MAGNESIUM 1.8 mg/dL (1.8-2.4); POTASSIUM 3.9 mmol/L (3.5-5.1)
[2024-03-12 16:06] VITALS: BP 147/87; TEMP 99.9; O2SAT 100
[2024-03-12 22:00] VITALS: BP 116/68; TEMP 102.9; O2SAT 98
[2024-03-13 00:31] VITALS: TEMP 100.9; O2SAT 100
[2024-03-13 04:00] VITALS: BP 119/66; TEMP 100.2; O2SAT 100
[2024-03-13 07:23] LABS: BASOPHILS % (AUTO) 0.3 % (0.0-2.0); EOSINOPHILS % (AUTO) 0.7 % (0.0-7.0); HEMATOCRIT 32.4 % (36.7-47.1); HEMOGLOBIN 11.3 g/dL (12.5-16.3); LYMPHOCYTES # (AUTO) 2.1 K/uL (0.8-4.8); LYMPHOCYTES % (AUTO) 32.7 % (20.5-51.5); MEAN CORPUSCULAR HEMOGLOBIN 32.6 uug (23.8-33.4); MEAN CORPUSCULAR HGB CONC 35 g/dL (32.5-36.3); MEAN CORPUSCULAR VOLUME 93.7 fL (73.0-96.2); MONOCYTES % (AUTO) 16.1 % (0.0-11.0); NEUTROPHILS # (AUTO) 3.3 K/uL (1.8-8.9); NEUTROPHILS % (AUTO) 50.2 % (38.5-71.5); PLATELET COUNT (AUTO) 234 K/uL (152-348); RED BLOOD CELL COUNT(AUTO) 3.46 MIL/uL (4.06-5.63); RED CELL DISTRIBUTION WIDTH 14.7 % (12.1-16.2); WHITE BLOOD COUNT (AUTO) 6.5 K/uL (3.6-10.2)
[2024-03-13 07:33] LABS: CALCIUM 8.9 mg/dL (8.5-10.1); CARBON DIOXIDE 26 mmol/L (21-32); CHLORIDE 103 mmol/L (98-107); CREATININE 0.6 mg/dL (0.6-1.3); GLUCOSE 180 mg/dL (74-106); MAGNESIUM 1.9 mg/dL (1.8-2.4); PHOSPHOROUS 2.6 mg/dL (2.5-4.9); POTASSIUM 3.3 mmol/L (3.5-5.1); SODIUM SERUM 139 mmol/L (136-145)
[2024-03-13 07:42] LABS: UREA NITROGEN, BLOOD 9 mg/dL (7-18)
[2024-03-13 07:43] LABS: C-REACTIVE PROTEIN 0.44 mg/dL (0.00-0.30)
[2024-03-13 08:07] VITALS: BP 119/66; TEMP 100.2; O2SAT 100
[2024-03-13 11:55] VITALS: BP 118/79; TEMP 99.8; O2SAT 100
[2024-03-13] MEDS: POTASSIUM CHLORIDE 20 MEQ POWDER PACKET GT ONE (13:09)
[2024-03-13 13:50] LABS: BAND % (MANUAL) 1 % (0-10); EOSINOPHILS % (MANUAL) 2 % (0-8); LYMPHOCYTES % (MANUAL) 34 % (20-40); MONOCYTES % (MANUAL) 13 % (2-10); NEUTROPHILS % (MANUAL) 50 % (42-75); PLATELET ESTIMATE ADEQUATE
[2024-03-13 13:51] LABS: ANISOCYTOSIS 1+; HYPOCHROMASIA 1+; TEAR DROP CELLS OCC
[2024-03-13 16:32] VITALS: BP 123/80; TEMP 98.9; O2SAT 100
[2024-03-13] MEDS ORDERED: MISCELLANEOUS MED XX PRN (17:00)
[2024-03-13 20:00] VITALS: BP 127/75; TEMP 99; O2SAT 98
[2024-03-14] VITALS: BP 131/76; TEMP 98.7; O2SAT 98
[2024-03-14 05:17] VITALS: BP 125/83; TEMP 100; O2SAT 100
[2024-03-14 07:22] LABS: BASOPHILS % (AUTO) 0.4 % (0.0-2.0); EOSINOPHILS # (AUTO) 0.2 K/uL (0.0-0.7); EOSINOPHILS % (AUTO) 2.7 % (0.0-7.0); HEMATOCRIT 30.9 % (36.7-47.1); HEMOGLOBIN 11.1 g/dL (12.5-16.3); LYMPHOCYTES # (AUTO) 1.8 K/uL (0.8-4.8); LYMPHOCYTES % (AUTO) 29.3 % (20.5-51.5); MEAN CORPUSCULAR HEMOGLOBIN 33.3 uug (23.8-33.4); MEAN CORPUSCULAR HGB CONC 36 g/dL (32.5-36.3); MEAN CORPUSCULAR VOLUME 92.9 fL (73.0-96.2); MONOCYTES # (AUTO) 0.9 K/uL (0.1-1.30); MONOCYTES % (AUTO) 15.3 % (0.0-11.0); NEUTROPHILS # (AUTO) 3.2 K/uL (1.8-8.9); NEUTROPHILS % (AUTO) 52.3 % (38.5-71.5); PLATELET COUNT (AUTO) 260 K/uL (152-348); RED BLOOD CELL COUNT(AUTO) 3.32 MIL/uL (4.06-5.63); RED CELL DISTRIBUTION WIDTH 14.4 % (12.1-16.2); WHITE BLOOD COUNT (AUTO) 6.1 K/uL (3.6-10.2)
[2024-03-14 07:36] VITALS: BP 97/58; TEMP 98.6; O2SAT 98
[2024-03-14 07:48] LABS: DIFFERENTIAL COMMENT 1
[2024-03-14 07:49] LABS: ALANINE AMINOTRANSFERASE 15 U/L (16-63); ALBUMIN 2.6 g/dL (3.4-5.0); ALKALINE PHOSPHATASE 51 U/L (50-136); ASPARTATE AMINOTRANSFERASE < 5 U/L (15-37); BILIRUBIN,TOTAL 0.3 mg/dL (0.2-1.0); CALCIUM 8.7 mg/dL (8.5-10.1); CHLORIDE 101 mmol/L (98-107); CREATININE 0.5 mg/dL (0.6-1.3); GLUCOSE 184 mg/dL (74-106); HDL CHOLESTEROL 41 mg/dL (40-60); MAGNESIUM 1.7 mg/dL (1.8-2.4); PHOSPHOROUS 3.3 mg/dL (2.5-4.9); POTASSIUM 3.6 mmol/L (3.5-5.1); SODIUM SERUM 135 mmol/L (136-145); TRIGLYCERIDES 268 MG/DL (30-150); UREA NITROGEN, BLOOD 8 mg/dL (7-18)
[2024-03-14 07:51] LABS: THYROID STIMULATING HORMONE 2.095 mIU/mL (0.358-3.740)
[2024-03-14 08:11] LABS: CARBON DIOXIDE 24 mmol/L (21-32); CHOLESTEROL 113 mg/dL (<200); TOTAL PROTEIN, SERUM 6.5 g/dL (6.4-8.2)
[2024-03-14 11:45] VITALS: BP 124/63; TEMP 98.5; O2SAT 100
[2024-03-14] MEDS: MAGNESIUM OXIDE 400 MG TABLET GT ONE (12:26)
[2024-03-14] MEDS ORDERED: HYDROCODONE/APAP 5-325MG TABLET GT PRN (13:15)
[2024-03-14 15:43] VITALS: BP 125/70; TEMP 98; O2SAT 99
[2024-03-14 17:56] LABS: BAND % (MANUAL) 4 % (0-10); BASOPHILS % (MANUAL) 1 % (0-2); EOSINOPHILS % (MANUAL) 2 % (0-8); LYMPHOCYTES % (MANUAL) 22 % (20-40); MONOCYTES % (MANUAL) 18 % (2-10); NEUTROPHILS % (MANUAL) 53 % (42-75); PLATELET ESTIMATE ADEQUATE
[2024-03-14] MEDS: POTASSIUM CHLORIDE 20 MEQ in IV NS 1000 ML 1,000 ML IV PRN (18:13)
[2024-03-14 20:35] VITALS: BP 117/65; TEMP 98.2; O2SAT 94
[2024-03-14] MEDS: HEPARIN SODIUM,PORCINE 5,000 UNITS/ML VIAL SQ SCH (22:45)
[2024-03-15] VITALS: BP 130/81; TEMP 99.4; O2SAT 99
[2024-03-15 04:00] VITALS: BP 121/66; TEMP 98.6; O2SAT 99
[2024-03-15 07:50] LABS: BASOPHILS % (AUTO) 0.6 % (0.0-2.0); EOSINOPHILS # (AUTO) 0.3 K/uL (0.0-0.7); EOSINOPHILS % (AUTO) 6.2 % (0.0-7.0); HEMATOCRIT 32.9 % (36.7-47.1); HEMOGLOBIN 11.5 g/dL (12.5-16.3); LYMPHOCYTES # (AUTO) 1.6 K/uL (0.8-4.8); LYMPHOCYTES % (AUTO) 35.2 % (20.5-51.5); MEAN CORPUSCULAR HEMOGLOBIN 32.8 uug (23.8-33.4); MEAN CORPUSCULAR HGB CONC 35 g/dL (32.5-36.3); MEAN CORPUSCULAR VOLUME 93.5 fL (73.0-96.2); MONOCYTES # (AUTO) 0.8 K/uL (0.1-1.30); MONOCYTES % (AUTO) 16.3 % (0.0-11.0); NEUTROPHILS # (AUTO) 1.9 K/uL (1.8-8.9); NEUTROPHILS % (AUTO) 41.7 % (38.5-71.5); PLATELET COUNT (AUTO) 252 K/uL (152-348); RED BLOOD CELL COUNT(AUTO) 3.52 MIL/uL (4.06-5.63); WHITE BLOOD COUNT (AUTO) 4.7 K/uL (3.6-10.2)
[2024-03-15 07:51] LABS: DIFFERENTIAL COMMENT 1
[2024-03-15 08:00] VITALS: BP 104/71; TEMP 97.6; O2SAT 99
[2024-03-15 08:01] LABS: CALCIUM 9.2 mg/dL (8.5-10.1); CARBON DIOXIDE 28 mmol/L (21-32); CHLORIDE 102 mmol/L (98-107); CREATININE 0.5 mg/dL (0.6-1.3); GLUCOSE 197 mg/dL (74-106); PHOSPHOROUS 4.6 mg/dL (2.5-4.9); POTASSIUM 3.8 mmol/L (3.5-5.1); SODIUM SERUM 138 mmol/L (136-145); UREA NITROGEN, BLOOD 6 mg/dL (7-18)
[2024-03-15] MEDS: PANTOPRAZOLE ORAL SUSPENSION 40 MG SUSPDR.PKT GT SCH (08:24)
[2024-03-15 12:00] VITALS: BP 105/59; TEMP 98.2; O2SAT 99
[2024-03-15 14:42] LABS: BAND % (MANUAL) 4 % (0-10)
[2024-03-15 14:43] LABS: EOSINOPHILS % (MANUAL) 4 % (0-8); LYMPHOCYTES % (MANUAL) 32 % (20-40); MONOCYTES % (MANUAL) 11 % (2-10)
[2024-03-15 14:44] LABS: NEUTROPHILS % (MANUAL) 49 % (42-75)
[2024-03-15 14:45] LABS: PLATELET ESTIMATE ADEQUATE
[2024-03-15 16:00] VITALS: BP 120/76; TEMP 97.2; O2SAT 99
[2024-03-15 20:00] VITALS: BP 139/85; TEMP 98.7; O2SAT 99
[2024-03-16] VITALS (7 sets, daily range): BP systolic 98–130; BP diastolic 52–86; TEMP 97.8–98.8; O2SAT 91–100
[2024-03-17 00:26] VITALS: BP 120/70; TEMP 98.4; O2SAT 100
[2024-03-17 04:39] VITALS: BP 136/70; TEMP 98.7; O2SAT 100
[2024-03-17 06:39] LABS: BASOPHILS % (AUTO) 0.5 % (0.0-2.0); EOSINOPHILS # (AUTO) 0.3 K/uL (0.0-0.7); EOSINOPHILS % (AUTO) 6.9 % (0.0-7.0); HEMATOCRIT 38.2 % (36.7-47.1); HEMOGLOBIN 12.9 g/dL (12.5-16.3); LYMPHOCYTES # (AUTO) 1.8 K/uL (0.8-4.8); LYMPHOCYTES % (AUTO) 38.1 % (20.5-51.5); MEAN CORPUSCULAR HEMOGLOBIN 32.4 uug (23.8-33.4); MEAN CORPUSCULAR HGB CONC 34 g/dL (32.5-36.3); MONOCYTES # (AUTO) 0.9 K/uL (0.1-1.30); MONOCYTES % (AUTO) 19.3 % (0.0-11.0); NEUTROPHILS # (AUTO) 1.7 K/uL (1.8-8.9); NEUTROPHILS % (AUTO) 35.2 % (38.5-71.5); PLATELET COUNT (AUTO) 307 K/uL (152-348); RED BLOOD CELL COUNT(AUTO) 3.98 MIL/uL (4.06-5.63); RED CELL DISTRIBUTION WIDTH 15.7 % (12.1-16.2); WHITE BLOOD COUNT (AUTO) 4.7 K/uL (3.6-10.2)
[2024-03-17 06:45] LABS: ALANINE AMINOTRANSFERASE 13 U/L (16-63); ALKALINE PHOSPHATASE 59 U/L (50-136); BILIRUBIN,TOTAL 0.4 mg/dL (0.2-1.0); CARBON DIOXIDE 26 mmol/L (21-32); CHLORIDE 104 mmol/L (98-107); CREATININE 0.6 mg/dL (0.6-1.3); GLUCOSE 143 mg/dL (74-106); MAGNESIUM 2.1 mg/dL (1.8-2.4); PHOSPHOROUS 4.7 mg/dL (2.5-4.9); POTASSIUM 4.4 mmol/L (3.5-5.1); SODIUM SERUM 139 mmol/L (136-145); TOTAL PROTEIN, SERUM 7.4 g/dL (6.4-8.2); UREA NITROGEN, BLOOD 7 mg/dL (7-18)
[2024-03-17 06:46] LABS: ASPARTATE AMINOTRANSFERASE < 5 U/L (15-37)
[2024-03-17 07:51] VITALS: BP 126/72; TEMP 98.1; O2SAT 99
[2024-03-17 12:02] VITALS: BP 117/66; TEMP 97.8; O2SAT 99
[2024-03-17 13:56] LABS: ANISOCYTOSIS 1+; BAND % (MANUAL) 2 % (0-10); EOSINOPHILS % (MANUAL) 5 % (0-8); LYMPHOCYTES % (MANUAL) 36 % (20-40); MONOCYTES % (MANUAL) 15 % (2-10); NEUTROPHILS % (MANUAL) 42 % (42-75); PLATELET ESTIMATE ADEQUATE
[2024-03-17 15:41] VITALS: BP 100/63; TEMP 97.8; O2SAT 100
[2024-03-17 21:29] VITALS: BP 105/63; TEMP 98.2; O2SAT 98
[2024-03-18 00:34] VITALS: BP 102/60; TEMP 98.5; O2SAT 98
[2024-03-18 05:25] VITALS: BP 99/67; TEMP 98; O2SAT 97
[2024-03-18 08:00] VITALS: BP 102/65; TEMP 98.2; O2SAT 97
[2024-03-18 12:00] VITALS: BP 97/57; TEMP 97.2; O2SAT 97
[2024-03-18 16:00] VITALS: BP 97/58; TEMP 98.2; O2SAT 97
[2024-03-18 20:00] VITALS: BP 111/64; TEMP 98; O2SAT 96
[2024-03-18] MEDS: LINEZOLID 600 MG TABLET GT SCH (20:26)
[2024-03-19 00:22] VITALS: BP 111/70; TEMP 97.6; O2SAT 95
[2024-03-19 04:45] VITALS: BP 126/63; TEMP 97.9; O2SAT 98
[2024-03-19] MEDS ORDERED: IV 0.9% SODIUM CHLORID+ 20 KCL 1,000 ML ONE (05:53)
[2024-03-19 07:30] LABS: BASOPHILS % (AUTO) 0.9 % (0.0-2.0); DIFFERENTIAL COMMENT 1; EOSINOPHILS # (AUTO) 0.3 K/uL (0.0-0.7); EOSINOPHILS % (AUTO) 9.6 % (0.0-7.0); HEMATOCRIT 36.2 % (36.7-47.1); HEMOGLOBIN 12.1 g/dL (12.5-16.3); LYMPHOCYTES # (AUTO) 1.7 K/uL (0.8-4.8); LYMPHOCYTES % (AUTO) 47.1 % (20.5-51.5); MEAN CORPUSCULAR HEMOGLOBIN 32.6 uug (23.8-33.4); MEAN CORPUSCULAR HGB CONC 34 g/dL (32.5-36.3); MEAN CORPUSCULAR VOLUME 97.3 fL (73.0-96.2); MONOCYTES # (AUTO) 0.8 K/uL (0.1-1.30); MONOCYTES % (AUTO) 21.2 % (0.0-11.0); NEUTROPHILS # (AUTO) 0.8 K/uL (1.8-8.9); NEUTROPHILS % (AUTO) 21.2 % (38.5-71.5); PLATELET COUNT (AUTO) 251 K/uL (152-348); RED BLOOD CELL COUNT(AUTO) 3.72 MIL/uL (4.06-5.63); RED CELL DISTRIBUTION WIDTH 15.5 % (12.1-16.2); WHITE BLOOD COUNT (AUTO) 3.5 K/uL (3.6-10.2)
[2024-03-19 08:00] VITALS: BP 127/76; TEMP 98.2; O2SAT 96
[2024-03-19 08:09] LABS: ALANINE AMINOTRANSFERASE 13 U/L (16-63); ALBUMIN 2.9 g/dL (3.4-5.0); ALKALINE PHOSPHATASE 58 U/L (50-136); ASPARTATE AMINOTRANSFERASE < 5 U/L (15-37); BILIRUBIN,TOTAL 0.3 mg/dL (0.2-1.0); CALCIUM 9.4 mg/dL (8.5-10.1); CARBON DIOXIDE 26 mmol/L (21-32); CHLORIDE 103 mmol/L (98-107); CREATININE 0.5 mg/dL (0.6-1.3); GLUCOSE 115 mg/dL (74-106); POTASSIUM 4.2 mmol/L (3.5-5.1); SODIUM SERUM 138 mmol/L (136-145); TOTAL PROTEIN, SERUM 6.9 g/dL (6.4-8.2); UREA NITROGEN, BLOOD 6 mg/dL (7-18)
[2024-03-19 12:00] VITALS: BP 124/67; TEMP 97.6; O2SAT 95
[2024-03-19 15:09] LABS: BAND % (MANUAL) 2 % (0-10); EOSINOPHILS % (MANUAL) 6 % (0-8); LYMPHOCYTES % (MANUAL) 55 % (20-40); MONOCYTES % (MANUAL) 20 % (2-10); NEUTROPHILS % (MANUAL) 17 % (42-75)
[2024-03-19 15:10] LABS: ANISOCYTOSIS 1+; PLATELET ESTIMATE ADEQUATE
[2024-03-19 16:10] VITALS: BP 122/71; TEMP 97.8; O2SAT 95
[2024-03-19 20:53] VITALS: BP 128/81; TEMP 97.8; O2SAT 100
[2024-03-20 00:10] VITALS: BP 119/73; TEMP 97.9; O2SAT 100
[2024-03-20 04:00] VITALS: BP 127/71; TEMP 97.7; O2SAT 99
[2024-03-20 07:44] VITALS: BP 125/77; TEMP 98.4; O2SAT 98
[2024-03-20 11:22] VITALS: BP 101/78; TEMP 98.4; O2SAT 100
[2024-03-20 15:54] VITALS: BP 110/75; TEMP 98.6; O2SAT 100
[2024-03-20 21:47] VITALS: BP 116/62; TEMP 98.7; O2SAT 100
[2024-03-21 01:28] VITALS: BP 124/82; TEMP 98.6; O2SAT 100
[2024-03-21 05:26] VITALS: BP 106/74; TEMP 99.1; O2SAT 100
[2024-03-21 07:34] LABS: BASOPHILS % (AUTO) 0.6 % (0.0-2.0); EOSINOPHILS # (AUTO) 0.2 K/uL (0.0-0.7); EOSINOPHILS % (AUTO) 3.5 % (0.0-7.0); HEMATOCRIT 38.3 % (36.7-47.1); LYMPHOCYTES # (AUTO) 1.8 K/uL (0.8-4.8); LYMPHOCYTES % (AUTO) 32.5 % (20.5-51.5); MEAN CORPUSCULAR HGB CONC 34 g/dL (32.5-36.3); MEAN CORPUSCULAR VOLUME 96.9 fL (73.0-96.2); MONOCYTES # (AUTO) 0.9 K/uL (0.1-1.30); MONOCYTES % (AUTO) 16.1 % (0.0-11.0); NEUTROPHILS # (AUTO) 2.6 K/uL (1.8-8.9); NEUTROPHILS % (AUTO) 47.3 % (38.5-71.5); PLATELET COUNT (AUTO) 274 K/uL (152-348); RED BLOOD CELL COUNT(AUTO) 3.95 MIL/uL (4.06-5.63); RED CELL DISTRIBUTION WIDTH 15.6 % (12.1-16.2); WHITE BLOOD COUNT (AUTO) 5.4 K/uL (3.6-10.2)
[2024-03-21 07:38] LABS: DIFFERENTIAL COMMENT 1
[2024-03-21 07:52] LABS: ALBUMIN 3.2 g/dL (3.4-5.0); BILIRUBIN,TOTAL 0.5 mg/dL (0.2-1.0); CALCIUM 9.1 mg/dL (8.5-10.1); CREATININE 0.7 mg/dL (0.6-1.3); MAGNESIUM 1.9 mg/dL (1.8-2.4); PHOSPHOROUS 4.3 mg/dL (2.5-4.9); POTASSIUM 3.9 mmol/L (3.5-5.1); TOTAL PROTEIN, SERUM 7.4 g/dL (6.4-8.2)
[2024-03-21 08:00] VITALS: BP 127/76; TEMP 98.2; O2SAT 100
[2024-03-21 11:43] VITALS: BP 112/66; TEMP 97.6; O2SAT 100
[2024-03-21] MEDS: LORAZEPAM 2 MG/1 ML VIAL IV ONE (11:53)
[2024-03-21 14:16] LABS: CSF GLUCOSE 61 mg/dL (40-70)
[2024-03-21 14:18] LABS: CSF PROTEIN 130 mg/dL (15-45)
[2024-03-21 14:42] LABS: CSF APPEARANCE CLEAR (CLEAR); CSF COLOR COLORLESS (COLORLESS)
[2024-03-21 14:45] LABS: CSF WHITE BLOOD CELL COUNT 8.8 /cumm (0-5)
[2024-03-21 16:00] VITALS: BP 134/64; TEMP 97.8; O2SAT 100
[2024-03-21 16:18] LABS: ANISOCYTOSIS 1+; EOSINOPHILS % (MANUAL) 3 % (0-8); LYMPHOCYTES % (MANUAL) 33 % (20-40); MONOCYTES % (MANUAL) 14 % (2-10); NEUTROPHILS % (MANUAL) 50 % (42-75); PLATELET ESTIMATE ADEQUATE
[2024-03-21 21:46] VITALS: BP 122/70; TEMP 99.1; O2SAT 98
[2024-03-22 02:58] VITALS: BP 127/73; TEMP 99; O2SAT 99
[2024-03-22 04:36] VITALS: BP 137/69; TEMP 98; O2SAT 97
[2024-03-22 07:29] LABS: CALCIUM 9.3 mg/dL (8.5-10.1); CARBON DIOXIDE 25 mmol/L (21-32); CHLORIDE 102 mmol/L (98-107); CREATININE 0.5 mg/dL (0.6-1.3); GLUCOSE 160 mg/dL (74-106); POTASSIUM 3.8 mmol/L (3.5-5.1); SODIUM SERUM 137 mmol/L (136-145); UREA NITROGEN, BLOOD 9 mg/dL (7-18)
[2024-03-22 07:53] VITALS: BP 113/63; TEMP 98.1; O2SAT 100
[2024-03-22 12:06] VITALS: BP 112/70; TEMP 98; O2SAT 98
[2024-03-22 15:07] LABS: *HSV 1/2 PCR 1DNA CSF Negative (Negative); *HSV 1/2 PCR 2DNA CSF Negative (Negative)
[2024-03-22 16:05] VITALS: BP 118/68; TEMP 97.8; O2SAT 99
[2024-03-22 20:16] VITALS: BP 107/58; TEMP 98.4; O2SAT 99
[2024-03-23 00:10] VITALS: BP 113/74; TEMP 98.3; O2SAT 100
[2024-03-23 04:00] VITALS: BP 109/62; TEMP 98.4; O2SAT 99
[2024-03-23 07:32] LABS: BASOPHILS % (AUTO) 0.4 % (0.0-2.0); CALCIUM 9.5 mg/dL (8.5-10.1); CARBON DIOXIDE 21 mmol/L (21-32); CHLORIDE 101 mmol/L (98-107); CREATININE 0.5 mg/dL (0.6-1.3); EOSINOPHILS # (AUTO) 0.1 K/uL (0.0-0.7); EOSINOPHILS % (AUTO) 2.5 % (0.0-7.0); GLUCOSE 167 mg/dL (74-106); HEMATOCRIT 38.6 % (36.7-47.1); HEMOGLOBIN 13.5 g/dL (12.5-16.3); LYMPHOCYTES # (AUTO) 1.2 K/uL (0.8-4.8); LYMPHOCYTES % (AUTO) 22.5 % (20.5-51.5); MEAN CORPUSCULAR HEMOGLOBIN 33.9 uug (23.8-33.4); MEAN CORPUSCULAR HGB CONC 35 g/dL (32.5-36.3); MEAN CORPUSCULAR VOLUME 97.2 fL (73.0-96.2); MONOCYTES # (AUTO) 0.9 K/uL (0.1-1.30); MONOCYTES % (AUTO) 16.8 % (0.0-11.0); NEUTROPHILS % (AUTO) 57.8 % (38.5-71.5); PLATELET COUNT (AUTO) 186 K/uL (152-348); POTASSIUM 3.9 mmol/L (3.5-5.1); RED BLOOD CELL COUNT(AUTO) 3.97 MIL/uL (4.06-5.63); RED CELL DISTRIBUTION WIDTH 15.7 % (12.1-16.2); SODIUM SERUM 134 mmol/L (136-145); UREA NITROGEN, BLOOD 10 mg/dL (7-18); WHITE BLOOD COUNT (AUTO) 5.2 K/uL (3.6-10.2)
[2024-03-23 07:38] LABS: DIFFERENTIAL COMMENT 1
[2024-03-23 08:22] LABS: BAND % (MANUAL) 1 % (0-10); EOSINOPHILS % (MANUAL) 2 % (0-8); LYMPHOCYTES % (MANUAL) 19 % (20-40); MONOCYTES % (MANUAL) 12 % (2-10); NEUTROPHILS % (MANUAL) 66 % (42-75)
[2024-03-23 08:23] LABS: ANISOCYTOSIS 1+; PLATELET ESTIMATE ADEQUATE
[2024-03-23 18:09] LABS: CRYPTOCOCCUS AG CSF Negative (Negative)
== END 2024-03-23 11:25 | DRG 870 ==
LOC: ER 13:57 → TELE-TD3 15:20 → TELE3 03-09 10:05
PROC: 5A1955Z Respiratory Ventilation, Greater than 96 Consecutive Hours (ICD-10-PCS; principal; 2024-03-07)
PROC: 05HC33Z Insertion of Infusion Device into Left Basilic Vein, Percutaneous Approach (ICD-10-PCS; 2024-03-10)
PROC: 05HB33Z Insertion of Infusion Device into Right Basilic Vein, Percutaneous Approach (ICD-10-PCS; 2024-03-13)
PROC: 05HC33Z Insertion of Infusion Device into Left Basilic Vein, Percutaneous Approach (ICD-10-PCS; 2024-03-14)
PROC: 05H933Z Insertion of Infusion Device into Right Brachial Vein, Percutaneous Approach (ICD-10-PCS; 2024-03-16)
PROC: 009U3ZX Drainage of Spinal Canal, Percutaneous Approach, Diagnostic (ICD-10-PCS; 2024-03-21)
DX: A41.52 Sepsis due to Pseudomonas (principal); J96.21 Acute and chronic respiratory failure with hypoxia; J15.1 Pneumonia due to Pseudomonas; R53.2 Functional quadriplegia; E43 Unspecified severe protein-calorie malnutrition; G93.1 Anoxic brain damage, not elsewhere classified; G91.2 (Idiopathic) normal pressure hydrocephalus; Z99.11 Dependence on respirator [ventilator] status; D68.59 Other primary thrombophilia; J98.11 Atelectasis; E88.09 Other disorders of plasma-protein metabolism, not elsewhere classified; K21.9 Gastro-esophageal reflux disease without esophagitis; G40.909 Epilepsy, unspecified, not intractable, without status epilepticus; K80.20 Calculus of gallbladder without cholecystitis without obstruction; K43.9 Ventral hernia without obstruction or gangrene; R60.0 Localized edema; E78.1 Pure hyperglyceridemia; R13.10 Dysphagia, unspecified; I25.2 Old myocardial infarction; Z86.74 Personal history of sudden cardiac arrest; N20.0 Calculus of kidney; Z88.1 Allergy status to other antibiotic agents; Z93.4 Other artificial openings of gastrointestinal tract status; M62.838 Other muscle spasm; M62.49 Contracture of muscle, multiple sites; R65.20 Severe sepsis without septic shock; K42.9 Umbilical hernia without obstruction or gangrene; B95.2 Enterococcus as the cause of diseases classified elsewhere; Z93.0 Tracheostomy status; Z98.2 Presence of cerebrospinal fluid drainage device; Z86.16 Personal history of COVID-19; Z86.14 Personal history of Methicillin resistant Staphylococcus aureus infection; Z91.041 Radiographic dye allergy status; Z87.442 Personal history of urinary calculi; Z74.01 Bed confinement status
CPT/HCPCS: 36415; 36600; 70030-TC; 70450; 71045; 82803; 83605; 83735; 84100; 84157; 84443; 84484; 85025; 85610; 85651; 85730; 86140; 87040; 87177; 89051; 89055; 93005; 94002; 94003; 94640; 94760; 99082-TC; A4606; A4663; A6209; A6213; G0378; J1644; J2020; J2060; J2248; J3480; J7040; Q9967

== ENCOUNTER 2024-03-23 11:30 | Inpatient (IN) | payer MEDICARE, OTHER ==
[~2024-03-23] VITALS: Ht 167.6 cm; Wt 52.2 kg
[2024-03-23 11:30] VITALS: TEMP 97
[~2024-03-23 11:30] MED LIST changes: -ALBU2.5V38 IH; +ASCO500C18 GT; -BACL10TA GT; -BISA10SU12 RC; +CEFT2.5V IV; -CHOL100043 GT; -DOCU-141 GT; -FOCUS FACTOR GT; +LINE600I9 IV; -LORA10TA7 GT; +METO25TA6 GT; +METR500P3 IV; +MULT-647 GT; +NORM2DIS4 IJ; -OMEG1CAP GT; -OMEP20CA15 GT; +PANT40TA49 GT; -VITAMIN A&D OINT TP; -Z GUARD REMEDY PASTE TP; -[UNRECOGNIZED DRUG - CODE] TP
[2024-03-23] MEDS: JEVITY 1.2 1000 ML LIQUID GT PRN (11:30)
[2024-03-23] MEDS: NORMAL SALINE IV SCH (15:39)
[2024-03-23] MEDS: CEFTAZIDIME IV SCH (15:39)
[2024-03-23] MEDS: AVIBACTAM IV SCH (15:39)
[2024-03-23 16:00] VITALS: TEMP 97
[2024-03-23] MEDS ORDERED: REMEDY ESSENTIAL ZINC PASTE 113 GM TP PRN (16:00)
[2024-03-23] MEDS ORDERED: BISACODYL 10 MG SUPP.RECT RC PRN (16:00)
[2024-03-23] MEDS ORDERED: MAGNESIUM HYDROXIDE 30 ML LIQUID UDC GT PRN (16:00)
[2024-03-23] MEDS: MICAFUNGIN SODIUM 100 MG in IV NORMAL SALINE 100 ML IV SCH (17:07)
[2024-03-23] MEDS ORDERED: ALBUTEROL SULFATE 2.5 MG/3 ML NEBU NEB PRN (17:30)
[2024-03-23] MEDS: BACLOFEN 10 MG TABLET GT SCH (17:43)
[2024-03-23 20:00] VITALS: TEMP 99.2
[2024-03-23] MEDS ORDERED: LINEZOLID 600 MG TABLET ONE (20:42)
[2024-03-23] MEDS ORDERED: LINEZOLID IV 600 MG in PREMIXED 1 EACH IV SCH (21:00)
[2024-03-23] MEDS: LINEZOLID 600 MG TABLET GT SCH (21:00)
[2024-03-23] MEDS: FREE WATER VIA TUBE FEEDING GT SCH (21:06)
[2024-03-23] MEDS: HEPARIN SODIUM,PORCINE 5,000 UNITS/ML VIAL SQ SCH (21:09)
[2024-03-23] MEDS: METRONIDAZOLE 500 MG TABLET GT SCH (21:12)
[2024-03-23] MEDS: REMEDY ESSENTIAL ZINC PASTE 113 GM TP SCH (21:12)
[2024-03-23 22:30] VITALS: TEMP 98.2
[2024-03-24] VITALS: TEMP 98.4
[2024-03-24 04:00] VITALS: TEMP 97.6
[2024-03-24 08:11] VITALS: TEMP 98.3
[2024-03-24] MEDS: PANTOPRAZOLE ORAL SUSPENSION 40 MG SUSPDR.PKT GT SCH (08:56)
[2024-03-24] MEDS: NORMAL SALINE FLUSH 10 ML DISP.SYRIN IV SCH (09:00)
[2024-03-24 13:00] VITALS: TEMP 98.3
[2024-03-24 17:00] VITALS: TEMP 98.3
[2024-03-24] MEDS: MICAFUNGIN SODIUM 100 MG in IV NORMAL SALINE 100 ML IV SCH (17:21)
[2024-03-24] MEDS: BACLOFEN 10 MG TABLET GT SCH (17:34)
[2024-03-24 19:47] VITALS: TEMP 99.1
[2024-03-24] MEDS: LINEZOLID 600 MG TABLET GT SCH (20:09)
[2024-03-24] MEDS: HEPARIN SODIUM,PORCINE 5,000 UNITS/ML VIAL SQ SCH (21:18)
[2024-03-24] MEDS: METRONIDAZOLE 500 MG TABLET GT SCH (22:52)
[2024-03-25 00:08] VITALS: TEMP 98.5
[2024-03-25 04:00] VITALS: TEMP 98.3
[2024-03-25 08:00] VITALS: TEMP 98.8
[2024-03-25] MEDS: PANTOPRAZOLE ORAL SUSPENSION 40 MG SUSPDR.PKT GT SCH (08:46)
[2024-03-25] MEDS: COD LIVER OIL/ZINC OXIDE OINT 113 GM TUBE TP SCH (11:09)
[2024-03-25] MEDS: ACETAMINOPHEN 650 MG/20 ML UDC- SA PATIENTS-PAIN ONLY GT PRN (13:25)
[2024-03-25] MEDS: KETOCONAZOLE 2% SHAMPOO 120 ML BOTTLE TP SCH (14:39)
[2024-03-25] MEDS ORDERED: KETOCONAZOLE 2% SHAMPOO 120 ML BOTTLE TP SCH (17:14)
[2024-03-25 20:01] VITALS: TEMP 99.3
[2024-03-26 07:35] VITALS: TEMP 97.9
[2024-03-26 20:00] VITALS: TEMP 98.7
[2024-03-26] MEDS: ACIDOPHILUS/BULGARICUS CHEW TAB GT SCH (21:50)
[2024-03-27 07:33] VITALS: TEMP 98.4
[2024-03-27 20:23] VITALS: TEMP 98.7
[2024-03-28 07:30] VITALS: TEMP 98.3
[2024-03-28 20:46] VITALS: TEMP 99.2
[2024-03-29 07:24] VITALS: TEMP 99.4
[2024-03-29 20:00] VITALS: TEMP 97.9
[2024-03-30 07:35] VITALS: TEMP 97.6
[2024-03-30 20:00] VITALS: TEMP 98.4
[2024-03-31 07:15] VITALS: TEMP 97.4
[2024-03-31 20:00] VITALS: TEMP 99.6
[2024-04-01 07:25] VITALS: TEMP 98.2
[2024-04-01 20:00] VITALS: TEMP 98.3
[2024-04-01] MEDS: NORMAL SALINE FLUSH 10 ML DISP.SYRIN IV SCH (22:17)
[2024-04-02 07:15] VITALS: TEMP 100.5
[2024-04-02 09:00] VITALS: TEMP 99.8
[2024-04-02 12:47] VITALS: TEMP 98.8
[2024-04-02 18:11] VITALS: TEMP 101
[2024-04-02] MEDS: ACETAMINOPHEN 650 MG/20 ML UDC- SA PATIENTS-FEVER ONLY GT PRN (18:11)
[2024-04-02 18:50] VITALS: TEMP 100.8
[2024-04-02 19:38] LABS: BASOPHILS % (AUTO) 0.2 % (0.0-2.0); EOSINOPHILS % (AUTO) 0.4 % (0.0-7.0); HEMATOCRIT 38.4 % (36.7-47.1); HEMOGLOBIN 13.1 g/dL (12.5-16.3); LYMPHOCYTES # (AUTO) 1.3 K/uL (0.8-4.8); LYMPHOCYTES % (AUTO) 27.2 % (20.5-51.5); MEAN CORPUSCULAR HEMOGLOBIN 33.2 uug (23.8-33.4); MEAN CORPUSCULAR HGB CONC 34 g/dL (32.5-36.3); MEAN CORPUSCULAR VOLUME 97.4 fL (73.0-96.2); MONOCYTES # (AUTO) 0.8 K/uL (0.1-1.30); MONOCYTES % (AUTO) 15.9 % (0.0-11.0); NEUTROPHILS # (AUTO) 2.8 K/uL (1.8-8.9); NEUTROPHILS % (AUTO) 56.3 % (38.5-71.5); PLATELET COUNT (AUTO) 176 K/uL (152-348); RED BLOOD CELL COUNT(AUTO) 3.94 MIL/uL (4.06-5.63); RED CELL DISTRIBUTION WIDTH 15.6 % (12.1-16.2); WHITE BLOOD COUNT (AUTO) 4.9 K/uL (3.6-10.2)
[2024-04-02 19:41] LABS: DIFFERENTIAL COMMENT 1
[2024-04-02 19:44] LABS: LYMPHOCYTES % (MANUAL) 0 % (20-40); NEUTROPHILS % (MANUAL) 0 % (42-75)
[2024-04-02 19:51] LABS: ALANINE AMINOTRANSFERASE 22 U/L (16-63); ALBUMIN 3.2 g/dL (3.4-5.0); ALKALINE PHOSPHATASE 68 U/L (50-136); ASPARTATE AMINOTRANSFERASE < 5 U/L (15-37); BILIRUBIN,TOTAL 0.4 mg/dL (0.2-1.0); CALCIUM 9.3 mg/dL (8.5-10.1); CARBON DIOXIDE 23 mmol/L (21-32); CHLORIDE 102 mmol/L (98-107); CREATININE 0.7 mg/dL (0.6-1.3); GLUCOSE 195 mg/dL (74-106); POTASSIUM 3.9 mmol/L (3.5-5.1); SODIUM SERUM 138 mmol/L (136-145); TOTAL PROTEIN, SERUM 7.5 g/dL (6.4-8.2); UREA NITROGEN, BLOOD 11 mg/dL (7-18)
[2024-04-02 19:55] LABS: C-REACTIVE PROTEIN 0.41 mg/dL (0.00-0.30)
[2024-04-02 20:00] VITALS: TEMP 98.8
[2024-04-03 03:00] VITALS: TEMP 101
[2024-04-03 04:30] VITALS: TEMP 98.8
[2024-04-03 06:17] VITALS: TEMP 98.4
[2024-04-03 07:28] VITALS: TEMP 98.4
[2024-04-03 07:48] LABS: BASOPHILS % (AUTO) 0.3 % (0.0-2.0); DIFFERENTIAL COMMENT 0; EOSINOPHILS # (AUTO) 0.1 K/uL (0.0-0.7); EOSINOPHILS % (AUTO) 1.8 % (0.0-7.0); HEMATOCRIT 40.5 % (36.7-47.1); HEMOGLOBIN 13.5 g/dL (12.5-16.3); LYMPHOCYTES # (AUTO) 2.3 K/uL (0.8-4.8); LYMPHOCYTES % (AUTO) 39.7 % (20.5-51.5); MEAN CORPUSCULAR HEMOGLOBIN 32.7 uug (23.8-33.4); MEAN CORPUSCULAR HGB CONC 33 g/dL (32.5-36.3); MEAN CORPUSCULAR VOLUME 98.2 fL (73.0-96.2); MONOCYTES # (AUTO) 1.1 K/uL (0.1-1.30); MONOCYTES % (AUTO) 20.1 % (0.0-11.0); NEUTROPHILS # (AUTO) 2.2 K/uL (1.8-8.9); NEUTROPHILS % (AUTO) 38.1 % (38.5-71.5); PLATELET COUNT (AUTO) 175 K/uL (152-348); RED BLOOD CELL COUNT(AUTO) 4.12 MIL/uL (4.06-5.63); RED CELL DISTRIBUTION WIDTH 15.1 % (12.1-16.2); WHITE BLOOD COUNT (AUTO) 5.7 K/uL (3.6-10.2)
[2024-04-03 07:55] LABS: CALCIUM 9.3 mg/dL (8.5-10.1); CARBON DIOXIDE 25 mmol/L (21-32); CHLORIDE 107 mmol/L (98-107); CREATININE 0.6 mg/dL (0.6-1.3); POTASSIUM 4.1 mmol/L (3.5-5.1); SODIUM SERUM 143 mmol/L (136-145); UREA NITROGEN, BLOOD 10 mg/dL (7-18)
[2024-04-03 08:03] LABS: GLUCOSE 147 mg/dL (74-106)
[2024-04-03 17:37] LABS: BASOPHILS % (MANUAL) 0 % (0-2); EOSINOPHILS % (MANUAL) 2 % (0-8); LYMPHOCYTES % (MANUAL) 40 % (20-40); MONOCYTES % (MANUAL) 18 % (2-10); NEUTROPHILS % (MANUAL) 40 % (42-75)
[2024-04-03 20:48] VITALS: TEMP 98.4
[2024-04-04 03:21] VITALS: TEMP 98.7
[2024-04-04] MEDS: PANTOPRAZOLE ORAL SUSPENSION 40 MG SUSPDR.PKT GT SCH (06:33)
[2024-04-04 08:00] VITALS: TEMP 99.1
[2024-04-04 20:00] VITALS: TEMP 99.4
[2024-04-05 02:50] VITALS: TEMP 98.2
[2024-04-05 08:08] VITALS: TEMP 97.8
[2024-04-05 19:45] VITALS: TEMP 98.8
[2024-04-06 07:35] VITALS: TEMP 98.6
[2024-04-06 19:40] VITALS: TEMP 98.1
[2024-04-07 07:41] VITALS: TEMP 97.7
[2024-04-07 08:00] VITALS: BP 110/61; TEMP 97.8; O2SAT 98
[2024-04-07 19:51] VITALS: TEMP 98.7
[2024-04-08 08:31] VITALS: TEMP 98.2
[2024-04-08 20:04] VITALS: TEMP 98.5
[2024-04-09 07:41] VITALS: TEMP 98.6
[2024-04-09 20:00] VITALS: TEMP 98.9
[2024-04-10 06:05] LABS: BASOPHILS % (AUTO) 0.8 % (0.0-2.0); EOSINOPHILS # (AUTO) 0.2 K/uL (0.0-0.7); EOSINOPHILS % (AUTO) 5.4 % (0.0-7.0); HEMATOCRIT 40.6 % (36.7-47.1); HEMOGLOBIN 13.5 g/dL (12.5-16.3); LYMPHOCYTES # (AUTO) 1.9 K/uL (0.8-4.8); LYMPHOCYTES % (AUTO) 43.9 % (20.5-51.5); MEAN CORPUSCULAR HEMOGLOBIN 32.6 uug (23.8-33.4); MEAN CORPUSCULAR HGB CONC 33 g/dL (32.5-36.3); MONOCYTES # (AUTO) 0.6 K/uL (0.1-1.30); MONOCYTES % (AUTO) 14.1 % (0.0-11.0); NEUTROPHILS # (AUTO) 1.6 K/uL (1.8-8.9); NEUTROPHILS % (AUTO) 35.8 % (38.5-71.5); PLATELET COUNT (AUTO) 236 K/uL (152-348); RED BLOOD CELL COUNT(AUTO) 4.15 MIL/uL (4.06-5.63); RED CELL DISTRIBUTION WIDTH 14.8 % (12.1-16.2); WHITE BLOOD COUNT (AUTO) 4.4 K/uL (3.6-10.2)
[2024-04-10 06:06] LABS: DIFFERENTIAL COMMENT 1
[2024-04-10 06:19] LABS: CALCIUM 9.9 mg/dL (8.5-10.1); CARBON DIOXIDE 22 mmol/L (21-32); CHLORIDE 105 mmol/L (98-107); CREATININE 0.6 mg/dL (0.6-1.3); GLUCOSE 109 mg/dL (74-106); MAGNESIUM 2.1 mg/dL (1.8-2.4); PHOSPHOROUS 5.3 mg/dL (2.5-4.9); SODIUM SERUM 141 mmol/L (136-145); UREA NITROGEN, BLOOD 15 mg/dL (7-18)
[2024-04-10 07:54] VITALS: TEMP 99.2
[2024-04-10 20:02] VITALS: TEMP 98.8
[2024-04-11 07:57] VITALS: TEMP 98.7
[2024-04-11 19:46] VITALS: TEMP 98.7
[2024-04-12 08:03] VITALS: TEMP 99.6
[2024-04-12] MEDS: KETOCONAZOLE 2% SHAMPOO 120 ML BOTTLE TP SCH (09:36)
[2024-04-12 19:52] VITALS: TEMP 98
[2024-04-12 20:07] LABS: *BILIRUBIN,URIN NEGATIVE (NEGATIVE); *BLOOD, URINE NEGATIVE (NEGATIVE); *CLARITY,URINE CLOUDY (CLEAR); *COLOR,URINE YELLOW (YELLOW); *KETONES,URINE NEGATIVE (NEGATIVE); *PROTEIN,URINE NEGATIVE (NEGATIVE); *UROBILINOGEN,URINE 0.2 E.U./dl (NORMAL); LEUKOCYTE ESTERASE ,URINE NEGATIVE (NEGATIVE); NITRITE, URINE NEGATIVE (NEGATIVE); UGLUCOSE NEGATIVE (NEGATIVE)
[2024-04-12 22:48] LABS: BACTERIA,URINE NONE SEEN /HPF (NONE SEEN); RBC,URINE 0-3 /HPF (0-3); SQUAMOUS EPITHELIAL CELL,UR FEW /HPF (NONE SEEN); WBC,URINE 0-3 /HPF (0-3)
[2024-04-13 07:51] LABS: BASOPHILS % (AUTO) 0.3 % (0.0-2.0); EOSINOPHILS # (AUTO) 0.1 K/uL (0.0-0.7); EOSINOPHILS % (AUTO) 2.5 % (0.0-7.0); HEMOGLOBIN 13.2 g/dL (12.5-16.3); LYMPHOCYTES # (AUTO) 2.9 K/uL (0.8-4.8); LYMPHOCYTES % (AUTO) 49.8 % (20.5-51.5); MEAN CORPUSCULAR HEMOGLOBIN 32.8 uug (23.8-33.4); MEAN CORPUSCULAR HGB CONC 34 g/dL (32.5-36.3); MONOCYTES # (AUTO) 0.7 K/uL (0.1-1.30); MONOCYTES % (AUTO) 12.6 % (0.0-11.0); NEUTROPHILS % (AUTO) 34.8 % (38.5-71.5); PLATELET COUNT (AUTO) 273 K/uL (152-348); RED BLOOD CELL COUNT(AUTO) 4.02 MIL/uL (4.06-5.63); RED CELL DISTRIBUTION WIDTH 14.6 % (12.1-16.2); WHITE BLOOD COUNT (AUTO) 5.8 K/uL (3.6-10.2)
[2024-04-13 07:55] VITALS: TEMP 97.4
[2024-04-13 07:59] LABS: CALCIUM 9.5 mg/dL (8.5-10.1); CARBON DIOXIDE 22 mmol/L (21-32); CHLORIDE 106 mmol/L (98-107); CREATININE 0.6 mg/dL (0.6-1.3); GLUCOSE 129 mg/dL (74-106); POTASSIUM 3.7 mmol/L (3.5-5.1); SODIUM SERUM 140 mmol/L (136-145); UREA NITROGEN, BLOOD 14 mg/dL (7-18)
[2024-04-13 08:04] LABS: DIFFERENTIAL COMMENT 1
[2024-04-13 19:42] VITALS: TEMP 99.6
[2024-04-13 22:35] VITALS: TEMP 98.7
[2024-04-14] MEDS: HYDROCODONE/APAP 5-325MG TABLET PO PRN (01:05)
[2024-04-14 07:52] VITALS: TEMP 98
[2024-04-14 21:03] VITALS: TEMP 97.9
[2024-04-15 08:00] VITALS: TEMP 98.6
[2024-04-15 20:01] VITALS: TEMP 99.1
[2024-04-16 07:44] VITALS: TEMP 97.8
[2024-04-16 19:52] VITALS: TEMP 100
[2024-04-17 00:24] VITALS: TEMP 97.6
[2024-04-17 04:05] VITALS: TEMP 100.9
[2024-04-17 07:46] VITALS: TEMP 99.5
[2024-04-17 08:55] VITALS: TEMP 100.2
[2024-04-17 11:07] LABS: BASOPHILS % (AUTO) 0.3 % (0.0-2.0); EOSINOPHILS # (AUTO) 0.1 K/uL (0.0-0.7); EOSINOPHILS % (AUTO) 0.7 % (0.0-7.0); HEMATOCRIT 40.6 % (36.7-47.1); HEMOGLOBIN 13.6 g/dL (12.5-16.3); LYMPHOCYTES # (AUTO) 2.3 K/uL (0.8-4.8); LYMPHOCYTES % (AUTO) 21.9 % (20.5-51.5); MEAN CORPUSCULAR HEMOGLOBIN 32.4 uug (23.8-33.4); MEAN CORPUSCULAR HGB CONC 34 g/dL (32.5-36.3); MEAN CORPUSCULAR VOLUME 96.5 fL (73.0-96.2); MONOCYTES # (AUTO) 0.8 K/uL (0.1-1.30); NEUTROPHILS # (AUTO) 7.3 K/uL (1.8-8.9); NEUTROPHILS % (AUTO) 69.1 % (38.5-71.5); PLATELET COUNT (AUTO) 265 K/uL (152-348); RED BLOOD CELL COUNT(AUTO) 4.21 MIL/uL (4.06-5.63); WHITE BLOOD COUNT (AUTO) 10.5 K/uL (3.6-10.2)
[2024-04-17 11:14] LABS: CALCIUM 9.8 mg/dL (8.5-10.1); CREATININE 0.7 mg/dL (0.6-1.3); POTASSIUM 3.7 mmol/L (3.5-5.1)
[2024-04-17 11:19] LABS: ALBUMIN 3.5 g/dL (3.4-5.0); BILIRUBIN,TOTAL 0.7 mg/dL (0.2-1.0); TOTAL PROTEIN, SERUM 7.7 g/dL (6.4-8.2)
[2024-04-17 11:51] LABS: *BILIRUBIN,URIN NEGATIVE (NEGATIVE); *BLOOD, URINE NEGATIVE (NEGATIVE); *CLARITY,URINE CLEAR (CLEAR); *COLOR,URINE YELLOW (YELLOW); *KETONES,URINE NEGATIVE (NEGATIVE); *PROTEIN,URINE NEGATIVE (NEGATIVE); *UROBILINOGEN,URINE 0.2 E.U./dl (NORMAL); LEUKOCYTE ESTERASE ,URINE NEGATIVE (NEGATIVE); NITRITE, URINE NEGATIVE (NEGATIVE); UGLUCOSE NEGATIVE (NEGATIVE)
[2024-04-17 18:01] VITALS: TEMP 99.1
[2024-04-17] MEDS: ONDANSETRON HCL 4 MG/5 ML UDC ORAL SOL GT PRN (20:20)
[2024-04-17 20:23] VITALS: TEMP 99
[2024-04-18] MEDS ORDERED: MAGN400O6 GT (08:18)
[2024-04-18] MEDS ORDERED: BISA10SU95 RC (08:18)
[2024-04-18] MEDS ORDERED: [UNRECOGNIZED DRUG - OTHER] GT (08:18)
[2024-04-18] MEDS ORDERED: ONDASTERON GT (08:18)
[2024-04-18] MEDS ORDERED: [UNRECOGNIZED DRUG - OTHER] NEB (08:18)
[2024-04-18] MEDS ORDERED: BACLOFEN GT (08:18)
[2024-04-18] MEDS ORDERED: PANT40TA49 GT (08:18)
[2024-04-18] MEDS ORDERED: HYDR-3972 GT (08:18)
[2024-04-18] MEDS ORDERED: ALBUTEROL NEB (08:18)
[2024-04-18] MEDS ORDERED: ACID1TAB12 GT (08:18)
[2024-04-19] MEDS ORDERED: NIZORAL SHAMPOO TOP (05:49)
[2024-04-19] MEDS ORDERED: KETOCONAZOLE 2% SHAMPOO 120 ML BOTTLE TP SCH (09:00)
== END 2024-04-25 14:32 | disposition short-term general hospital (02) | DRG 207 ==
LOC: SA 11:30
PROVIDERS: ADMIT Internal Medicine; ATTEND Internal Medicine
PROC: 5A1955Z Respiratory Ventilation, Greater than 96 Consecutive Hours (ICD-10-PCS; principal; 2024-03-23)
DX: J96.21 Acute and chronic respiratory failure with hypoxia (principal); G91.2 (Idiopathic) normal pressure hydrocephalus; G93.1 Anoxic brain damage, not elsewhere classified; J98.11 Atelectasis; R50.9 Fever, unspecified; Z98.2 Presence of cerebrospinal fluid drainage device; K21.9 Gastro-esophageal reflux disease without esophagitis; R60.0 Localized edema; N20.0 Calculus of kidney; K80.20 Calculus of gallbladder without cholecystitis without obstruction; K43.9 Ventral hernia without obstruction or gangrene; E78.1 Pure hyperglyceridemia; R13.10 Dysphagia, unspecified; K42.9 Umbilical hernia without obstruction or gangrene; G40.909 Epilepsy, unspecified, not intractable, without status epilepticus; Z74.01 Bed confinement status; Z86.74 Personal history of sudden cardiac arrest; Z93.1 Gastrostomy status; Z88.1 Allergy status to other antibiotic agents; Z86.16 Personal history of COVID-19; M62.838 Other muscle spasm
CPT/HCPCS: 36415; 70030-TC; 71045; 74018; 83735; 84100; 85025; 86140; 87040; 94002; 94003; A4663; A6209; A6213; C1758; J1644; J2020; J2248; J3490

== ENCOUNTER 2024-04-18 07:25 | Inpatient (IN) | payer MEDICARE, OTHER ==
[~2024-04-18] VITALS: Ht 157.5 cm; Wt 65.8 kg
[2024-04-18] VITALS (12 sets, daily range): BP systolic 124–144; BP diastolic 71–93; TEMP 98.1–100.7; O2SAT 98–100
[2024-04-18] MEDS: IV NORMAL SALINE 1000 ML BAG IV ONE ×2 (07:30→10:01)
[2024-04-18] MEDS ORDERED: [UNRECOGNIZED DRUG - OTHER] GT (08:18)
[2024-04-18] MEDS ORDERED: HYDR-3972 GT (08:18)
[2024-04-18] MEDS ORDERED: BISA10SU95 RC (08:18)
[2024-04-18] MEDS ORDERED: ONDASTERON GT (08:18)
[2024-04-18] MEDS ORDERED: [UNRECOGNIZED DRUG - OTHER] NEB (08:18)
[2024-04-18] MEDS ORDERED: PANT40TA49 GT (08:18)
[2024-04-18] MEDS ORDERED: ACID1TAB12 GT (08:18)
[2024-04-18] MEDS ORDERED: MAGN400O6 GT (08:18)
[2024-04-18] MEDS ORDERED: ALBUTEROL NEB (08:18)
[2024-04-18] MEDS ORDERED: BACLOFEN GT (08:18)
[2024-04-18 08:52] LABS: BASOPHILS # (AUTO) 0.1 K/UL (0.0-0.2); BASOPHILS % (AUTO) 0.8 % (0.0-2.0); HEMATOCRIT 45.4 % (36.7-47.1); HEMOGLOBIN 14.9 g/dL (12.5-16.3); LYMPHOCYTES # (AUTO) 0.9 K/uL (0.8-4.8); LYMPHOCYTES % (AUTO) 5.4 % (20.5-51.5); MEAN CORPUSCULAR HEMOGLOBIN 32.4 uug (23.8-33.4); MEAN CORPUSCULAR HGB CONC 33 g/dL (32.5-36.3); MEAN CORPUSCULAR VOLUME 98.5 fL (73.0-96.2); MONOCYTES # (AUTO) 0.8 K/uL (0.1-1.30); NEUTROPHILS # (AUTO) 14.1 K/uL (1.8-8.9); NEUTROPHILS % (AUTO) 88.8 % (38.5-71.5); PLATELET COUNT (AUTO) 318 K/uL (152-348); RED CELL DISTRIBUTION WIDTH 13.9 % (12.1-16.2); WHITE BLOOD COUNT (AUTO) 15.9 K/uL (3.6-10.2)
[2024-04-18 09:00] LABS: DIFFERENTIAL COMMENT 1
[2024-04-18 09:04] LABS: CALCIUM 10.4 mg/dL (8.5-10.1); CARBON DIOXIDE 20 mmol/L (21-32); CHLORIDE 98 mmol/L (98-107); CREATININE 0.9 mg/dL (0.6-1.3); GLUCOSE 196 mg/dL (74-106); SODIUM SERUM 136 mmol/L (136-145); UREA NITROGEN, BLOOD 14 mg/dL (7-18)
[2024-04-18 09:12] LABS: ALANINE AMINOTRANSFERASE 29 U/L (16-63); ALKALINE PHOSPHATASE 93 U/L (50-136); ASPARTATE AMINOTRANSFERASE < 5 U/L (15-37); BILIRUBIN,DIRECT 0.1 mg/dL (0.0-0.2); BILIRUBIN,TOTAL 0.5 mg/dL (0.2-1.0); TOTAL PROTEIN, SERUM 8.9 g/dL (6.4-8.2)
[2024-04-18 09:18] LABS: *BILIRUBIN,URIN NEGATIVE (NEGATIVE); *BLOOD, URINE NEGATIVE (NEGATIVE); *CLARITY,URINE CLEAR (CLEAR); *COLOR,URINE YELLOW (YELLOW); *KETONES,URINE NEGATIVE (NEGATIVE); *PROTEIN,URINE NEGATIVE (NEGATIVE); *UROBILINOGEN,URINE 0.2 E.U./dl (NORMAL); LEUKOCYTE ESTERASE ,URINE NEGATIVE (NEGATIVE); NITRITE, URINE NEGATIVE (NEGATIVE)
[2024-04-18 09:25] LABS: UGLUCOSE 1+ (NEGATIVE)
[2024-04-18 09:39] LABS: LACTIC ACID 7.1 mmol/L (0.4-2.0)
[2024-04-18] MEDS ORDERED: ONDANSETRON 4 MG/2 ML VIAL ONE (10:02)
[2024-04-18] MEDS: ONDANSETRON 4 MG/2 ML VIAL IV ONE (10:02)
[2024-04-18 10:20] LABS: RBC,URINE NONE SEEN /HPF (0-3); SQUAMOUS EPITHELIAL CELL,UR FEW /HPF (NONE SEEN); WBC,URINE 0-3 /HPF (0-3)
[2024-04-18] MEDS ORDERED: LORAZEPAM 2 MG/1 ML VIAL IV PRN (13:15)
[2024-04-18] MEDS: LORAZEPAM 2 MG/1 ML VIAL IV ONE (13:20)
[2024-04-18] MEDS ORDERED: JEVITY 1.2 1000 ML LIQUID GT PRN (13:30)
[2024-04-18] MEDS ORDERED: ONDANSETRON GT SCH (13:30)
[2024-04-18] MEDS ORDERED: MAGNESIUM HYDROXIDE 30 ML LIQUID UDC GT PRN (13:30)
[2024-04-18] MEDS ORDERED: ALBUTEROL SULFATE 1.25 MG/3 ML NEBU NEB PRN (13:30)
[2024-04-18] MEDS ORDERED: BISACODYL 10 MG SUPP.RECT RC PRN (13:30)
[2024-04-18] MEDS: ACETAMINOPHEN 500 MG TABLET GT PRN (13:31)
[2024-04-18] MEDS: LINEZOLID IV 600 MG in PREMIXED 1 EACH IV SCH (16:07)
[2024-04-18] MEDS ORDERED: MISCELLANEOUS MED IV STA (16:29)
[2024-04-18] MEDS ORDERED: MICAFUNGIN SODIUM IV SCH (16:30)
[2024-04-18] MEDS ORDERED: NORMAL SALINE IV SCH (16:30)
[2024-04-18] MEDS ORDERED: [UNRECOGNIZED DRUG - OTHER] GT SCH (17:00)
[2024-04-18] MEDS ORDERED: BACLOFEN GT SCH (17:00)
[2024-04-18] MEDS: METRONIDAZOLE 500 MG/NS 100ML 500 MG in PREMIXED 1 EACH IV SCH (18:19)
[2024-04-18] MEDS: BACLOFEN 10 MG TABLET GT SCH (18:39)
[2024-04-18] MEDS: NORMAL SALINE IV SCH ×2 (19:19→19:20)
[2024-04-18] MEDS: CEFTAZIDIME IV SCH (19:19)
[2024-04-18] MEDS: AVIBACTAM IV SCH (19:19)
[2024-04-18] MEDS: MICAFUNGIN SODIUM IV SCH (19:20)
[2024-04-18] MEDS ORDERED: Medication Not On Formulary EA (Acidophilus/Bulgaricus (Floranex Tablet) 1 TAB) GT SCH (21:00)
[2024-04-18] MEDS ORDERED: Medication Not On Formulary EA (Heparin Sodium,Porcine (Heparin Sodium) 5,000 UNIT) SUBCUT SCH (21:00)
[2024-04-18] MEDS: ACIDOPHILUS/BULGARICUS CHEW TAB GT SCH (21:47)
[2024-04-18] MEDS: NORMAL SALINE FLUSH 10 ML DISP.SYRIN IV SCH (21:47)
[2024-04-18] MEDS: HEPARIN SODIUM,PORCINE 5,000 UNITS/ML VIAL SQ SCH (21:47)
[2024-04-18] MEDS: JEVITY 1.2 1000 ML LIQUID GT PRN (22:01)
[2024-04-19] VITALS (23 sets, daily range): BP systolic 104–157; BP diastolic 59–94; TEMP 98.3–100.7; O2SAT 91–100
[2024-04-19] MEDS: PANTOPRAZOLE ORAL SUSPENSION 40 MG SUSPDR.PKT GT SCH (05:22)
[2024-04-19 05:38] LABS: BILIRUBIN,TOTAL 0.7 mg/dL (0.2-1.0); CALCIUM 8.8 mg/dL (8.5-10.1); CREATININE 0.7 mg/dL (0.6-1.3); MAGNESIUM 1.8 mg/dL (1.8-2.4); PHOSPHOROUS 2.1 mg/dL (2.5-4.9); POTASSIUM 3.2 mmol/L (3.5-5.1); TOTAL PROTEIN, SERUM 6.7 g/dL (6.4-8.2)
[2024-04-19 05:43] LABS: ABG BASE EXCESS -1.5 mmol/L (-2.0-2.0); ABG HCO3 21.8 mmol/L (22.0-26.0); ABG PCO2 32.4 mmHg (35.0-48.0); ABG PH 7.446 (7.340-7.440); ABG PO2 106.3 mmHg (75.0-100.0); ABG SITE RIGHT RADIAL; ABG TOTAL HEMOGLOBIN 12.4 G/dL (14.0-18.0); AaDO2 98.1 mmHg; COHb 0.3 % (0.0-3.9); MetHb 0.3 % (0.0-1.5); O2Hb 97.3 % (94.0-97.0); VT, ABG 450 mL
[2024-04-19 05:47] LABS: BASOPHILS % (AUTO) 0.2 % (0.0-2.0); EOSINOPHILS % (AUTO) 0.4 % (0.0-7.0); HEMATOCRIT 35.1 % (36.7-47.1); HEMOGLOBIN 12.2 g/dL (12.5-16.3); LYMPHOCYTES # (AUTO) 0.8 K/uL (0.8-4.8); LYMPHOCYTES % (AUTO) 9.7 % (20.5-51.5); MEAN CORPUSCULAR HEMOGLOBIN 33.5 uug (23.8-33.4); MEAN CORPUSCULAR HGB CONC 35 g/dL (32.5-36.3); MEAN CORPUSCULAR VOLUME 96.1 fL (73.0-96.2); MONOCYTES # (AUTO) 0.6 K/uL (0.1-1.30); NEUTROPHILS # (AUTO) 6.6 K/uL (1.8-8.9); NEUTROPHILS % (AUTO) 82.7 % (38.5-71.5); PLATELET COUNT (AUTO) 165 K/uL (152-348); RED BLOOD CELL COUNT(AUTO) 3.65 MIL/uL (4.06-5.63); RED CELL DISTRIBUTION WIDTH 13.3 % (12.1-16.2)
[2024-04-19] MEDS ORDERED: NIZORAL SHAMPOO TOP (05:49)
[2024-04-19] MEDS ORDERED: PANTOPRAZOLE SODIUM 40 MG TABLET.DR PO SCH (06:00)
[2024-04-19 06:17] LABS: DIFFERENTIAL COMMENT 1
[2024-04-19] MEDS ORDERED: KETOCONAZOLE 2% CREAM 30 GM TUBE TP SCH (09:00)
[2024-04-19] MEDS: KETOCONAZOLE 2% SHAMPOO 120 ML BOTTLE TP SCH (10:02)
[2024-04-19] MEDS ORDERED: POTASSIUM CHLORIDE 50 ML IV SCH (10:45)
[2024-04-19] MEDS: POTASSIUM CHLORIDE 50 ML IV SCH (11:22)
[2024-04-19] MEDS: POTASSIUM PHOSPHATE MM 15 MMOL in IV NORMAL SALINE 250 ML IV ONE (12:09)
[2024-04-19] MEDS ORDERED: NEUTRA PHOS PACKET GT ONE (16:00)
[2024-04-19] MEDS ORDERED: CEFTAZIDIME 1 G VIAL ONE (20:38)
[2024-04-19] MEDS ORDERED: MICAFUNGIN SODIUM 50 MG IV ONE (20:55)
[2024-04-19] MEDS ORDERED: MICAFUNGIN SODIUM 100 MG VIAL IV ONE (20:55)
[2024-04-19] MEDS ORDERED: METRONIDAZOLE 500 MG/NS 100ML 100 ML IV ONE (20:58)
[2024-04-20] VITALS (24 sets, daily range): BP systolic 101–137; BP diastolic 56–84; TEMP 97.6–99.3; O2SAT 92–100
[2024-04-20 05:44] LABS: CALCIUM 8.9 mg/dL (8.5-10.1); CARBON DIOXIDE 22 mmol/L (21-32); CHLORIDE 102 mmol/L (98-107); CREATININE 0.6 mg/dL (0.6-1.3); GLUCOSE 181 mg/dL (74-106); POTASSIUM 3.1 mmol/L (3.5-5.1); SODIUM SERUM 137 mmol/L (136-145); UREA NITROGEN, BLOOD 8 mg/dL (7-18)
[2024-04-20 05:55] LABS: THYROID STIMULATING HORMONE 1.613 mIU/mL (0.358-3.740)
[2024-04-20] MEDS: POTASSIUM CHLORIDE 20 MEQ POWDER PACKET GT ONE (08:29)
[2024-04-21] VITALS (12 sets, daily range): BP systolic 105–135; BP diastolic 66–89; TEMP 97.5–98.6; O2SAT 95–100
[2024-04-21 05:11] LABS: BASOPHILS % (AUTO) 0.4 % (0.0-2.0); EOSINOPHILS # (AUTO) 0.4 K/uL (0.0-0.7); HEMATOCRIT 37.1 % (36.7-47.1); HEMOGLOBIN 12.7 g/dL (12.5-16.3); LYMPHOCYTES # (AUTO) 1.6 K/uL (0.8-4.8); LYMPHOCYTES % (AUTO) 27.4 % (20.5-51.5); MEAN CORPUSCULAR HEMOGLOBIN 33.2 uug (23.8-33.4); MEAN CORPUSCULAR HGB CONC 34 g/dL (32.5-36.3); MEAN CORPUSCULAR VOLUME 96.5 fL (73.0-96.2); MONOCYTES # (AUTO) 0.8 K/uL (0.1-1.30); MONOCYTES % (AUTO) 13.6 % (0.0-11.0); NEUTROPHILS # (AUTO) 2.9 K/uL (1.8-8.9); NEUTROPHILS % (AUTO) 51.6 % (38.5-71.5); PLATELET COUNT (AUTO) 179 K/uL (152-348); RED BLOOD CELL COUNT(AUTO) 3.84 MIL/uL (4.06-5.63); RED CELL DISTRIBUTION WIDTH 13.6 % (12.1-16.2); WHITE BLOOD COUNT (AUTO) 5.7 K/uL (3.6-10.2)
[2024-04-21 05:22] LABS: CALCIUM 9.1 mg/dL (8.5-10.1); CARBON DIOXIDE 24 mmol/L (21-32); CHLORIDE 106 mmol/L (98-107); CREATININE 0.5 mg/dL (0.6-1.3); GLUCOSE 153 mg/dL (74-106); MAGNESIUM 2.1 mg/dL (1.8-2.4); PHOSPHOROUS 4.6 mg/dL (2.5-4.9); POTASSIUM 3.6 mmol/L (3.5-5.1); SODIUM SERUM 141 mmol/L (136-145); UREA NITROGEN, BLOOD 4 mg/dL (7-18)
[2024-04-21 05:39] LABS: DIFFERENTIAL COMMENT 1
[2024-04-21] MEDS: POTASSIUM CHLORIDE 20 MEQ TAB.PRT.SR PO ONE (09:11)
[2024-04-21] MEDS: LORAZEPAM 2 MG/1 ML VIAL IV PRN (21:26)
[2024-04-22] VITALS (9 sets, daily range): BP systolic 107–143; BP diastolic 75–95; TEMP 97.2–99.7; O2SAT 94–99
[2024-04-22 05:15] LABS: BASOPHILS % (AUTO) 0.3 % (0.0-2.0); EOSINOPHILS # (AUTO) 0.3 K/uL (0.0-0.7); EOSINOPHILS % (AUTO) 6.5 % (0.0-7.0); HEMATOCRIT 38.8 % (36.7-47.1); HEMOGLOBIN 12.8 g/dL (12.5-16.3); LYMPHOCYTES # (AUTO) 1.6 K/uL (0.8-4.8); LYMPHOCYTES % (AUTO) 34.1 % (20.5-51.5); MEAN CORPUSCULAR HEMOGLOBIN 31.7 uug (23.8-33.4); MEAN CORPUSCULAR HGB CONC 33 g/dL (32.5-36.3); MEAN CORPUSCULAR VOLUME 96.3 fL (73.0-96.2); MONOCYTES # (AUTO) 0.6 K/uL (0.1-1.30); MONOCYTES % (AUTO) 13.5 % (0.0-11.0); NEUTROPHILS # (AUTO) 2.2 K/uL (1.8-8.9); NEUTROPHILS % (AUTO) 45.6 % (38.5-71.5); PLATELET COUNT (AUTO) 211 K/uL (152-348); RED BLOOD CELL COUNT(AUTO) 4.02 MIL/uL (4.06-5.63); RED CELL DISTRIBUTION WIDTH 13.5 % (12.1-16.2); WHITE BLOOD COUNT (AUTO) 4.7 K/uL (3.6-10.2)
[2024-04-22 05:20] LABS: DIFFERENTIAL COMMENT 1
[2024-04-22 05:32] LABS: CALCIUM 9.5 mg/dL (8.5-10.1); CARBON DIOXIDE 25 mmol/L (21-32); CHLORIDE 107 mmol/L (98-107); CREATININE 0.6 mg/dL (0.6-1.3); GLUCOSE 125 mg/dL (74-106); MAGNESIUM 2.1 mg/dL (1.8-2.4); PHOSPHOROUS 3.8 mg/dL (2.5-4.9); POTASSIUM 3.5 mmol/L (3.5-5.1); SODIUM SERUM 142 mmol/L (136-145); UREA NITROGEN, BLOOD 4 mg/dL (7-18)
[2024-04-22] MEDS: POTASSIUM CHLORIDE 20 MEQ POWDER PACKET PO ONE (09:34)
[2024-04-23] VITALS (24 sets, daily range): BP systolic 114–157; BP diastolic 68–102; TEMP 98.3–98.9; O2SAT 87–100
[2024-04-23 05:38] LABS: BASOPHILS % (AUTO) 0.4 % (0.0-2.0); EOSINOPHILS # (AUTO) 0.4 K/uL (0.0-0.7); HEMATOCRIT 39.7 % (36.7-47.1); HEMOGLOBIN 13.2 g/dL (12.5-16.3); LYMPHOCYTES # (AUTO) 1.9 K/uL (0.8-4.8); LYMPHOCYTES % (AUTO) 31.9 % (20.5-51.5); MEAN CORPUSCULAR HEMOGLOBIN 32.1 uug (23.8-33.4); MEAN CORPUSCULAR HGB CONC 33 g/dL (32.5-36.3); MONOCYTES # (AUTO) 0.7 K/uL (0.1-1.30); MONOCYTES % (AUTO) 12.5 % (0.0-11.0); NEUTROPHILS # (AUTO) 2.9 K/uL (1.8-8.9); NEUTROPHILS % (AUTO) 49.2 % (38.5-71.5); PLATELET COUNT (AUTO) 213 K/uL (152-348); RED CELL DISTRIBUTION WIDTH 13.6 % (12.1-16.2); WHITE BLOOD COUNT (AUTO) 5.9 K/uL (3.6-10.2)
[2024-04-23 05:46] LABS: DIFFERENTIAL COMMENT 1
[2024-04-23 05:57] LABS: ALANINE AMINOTRANSFERASE 31 U/L (16-63); ALBUMIN 3.3 g/dL (3.4-5.0); ALKALINE PHOSPHATASE 72 U/L (50-136); ASPARTATE AMINOTRANSFERASE 17 U/L (15-37); BILIRUBIN,DIRECT 0.1 mg/dL (0.0-0.2); BILIRUBIN,TOTAL 0.3 mg/dL (0.2-1.0); CALCIUM 9.8 mg/dL (8.5-10.1); CARBON DIOXIDE 26 mmol/L (21-32); CHLORIDE 106 mmol/L (98-107); CREATININE 0.6 mg/dL (0.6-1.3); GLUCOSE 144 mg/dL (74-106); MAGNESIUM 2.2 mg/dL (1.8-2.4); POTASSIUM 4.4 mmol/L (3.5-5.1); SODIUM SERUM 141 mmol/L (136-145); TOTAL PROTEIN, SERUM 7.3 g/dL (6.4-8.2); UREA NITROGEN, BLOOD 6 mg/dL (7-18)
[2024-04-23] MEDS ORDERED: LOPERAMIDE HCL 2 MG CAPSULE PO PRN (08:30)
[2024-04-23] MEDS: ONDANSETRON HCL 4 MG TABLET GT PRN (09:48)
[2024-04-23] MEDS ORDERED: METOCLOPRAMIDE HCL 10 MG/2 ML VIAL IV SCH (18:00)
[2024-04-23] MEDS: METOCLOPRAMIDE HCL 10 MG/2 ML VIAL IV SCH (20:48)
[2024-04-24] VITALS (15 sets, daily range): BP systolic 125–156; BP diastolic 84–115; TEMP 98–99.5; O2SAT 91–98
[2024-04-24 04:59] LABS: BASOPHILS % (AUTO) 0.3 % (0.0-2.0); EOSINOPHILS % (AUTO) 0.1 % (0.0-7.0); LYMPHOCYTES % (AUTO) 9.5 % (20.5-51.5); MEAN CORPUSCULAR HEMOGLOBIN 33.1 uug (23.8-33.4); MEAN CORPUSCULAR HGB CONC 34 g/dL (32.5-36.3); MEAN CORPUSCULAR VOLUME 96.5 fL (73.0-96.2); MONOCYTES # (AUTO) 0.7 K/uL (0.1-1.30); MONOCYTES % (AUTO) 6.8 % (0.0-11.0); NEUTROPHILS # (AUTO) 8.7 K/uL (1.8-8.9); NEUTROPHILS % (AUTO) 83.3 % (38.5-71.5); PLATELET COUNT (AUTO) 248 K/uL (152-348); RED BLOOD CELL COUNT(AUTO) 3.94 MIL/uL (4.06-5.63); RED CELL DISTRIBUTION WIDTH 13.5 % (12.1-16.2); WHITE BLOOD COUNT (AUTO) 10.4 K/uL (3.6-10.2)
[2024-04-24 05:14] LABS: CALCIUM 9.7 mg/dL (8.5-10.1); CREATININE 0.7 mg/dL (0.6-1.3); MAGNESIUM 1.7 mg/dL (1.8-2.4); PHOSPHOROUS 3.2 mg/dL (2.5-4.9); POTASSIUM 3.9 mmol/L (3.5-5.1)
[2024-04-24] MEDS: MAGNESIUM SULFATE/D5W 100 ML IV SCH (09:52)
[2024-04-24] MEDS ORDERED: IOHEXOL 300MG/ML 100 ML INFUS..BTL ONE (11:08)
[2024-04-24] MEDS ORDERED: SWABABLE VALVE TRANSFER SET EA MC ONE (11:08)
[2024-04-24] MEDS ORDERED: IV NORMAL SALINE 250 ML IV ONE (11:10)
[2024-04-24] MEDS: LINEZOLID IV 600 MG in PREMIXED 1 EACH IV SCH (17:57)
[2024-04-25] VITALS: BP 142/83; TEMP 99.4; O2SAT 95
[2024-04-25 04:00] VITALS: BP 140/90; TEMP 98; O2SAT 100
[2024-04-25 06:46] LABS: BASOPHILS % (AUTO) 0.2 % (0.0-2.0); EOSINOPHILS % (AUTO) 0.2 % (0.0-7.0); HEMATOCRIT 37.1 % (36.7-47.1); HEMOGLOBIN 12.5 g/dL (12.5-16.3); LYMPHOCYTES # (AUTO) 1.3 K/uL (0.8-4.8); LYMPHOCYTES % (AUTO) 9.3 % (20.5-51.5); MEAN CORPUSCULAR HEMOGLOBIN 32.8 uug (23.8-33.4); MEAN CORPUSCULAR HGB CONC 34 g/dL (32.5-36.3); MEAN CORPUSCULAR VOLUME 97.1 fL (73.0-96.2); MONOCYTES # (AUTO) 1.2 K/uL (0.1-1.30); MONOCYTES % (AUTO) 9.2 % (0.0-11.0); NEUTROPHILS % (AUTO) 81.1 % (38.5-71.5); PLATELET COUNT (AUTO) 227 K/uL (152-348); RED BLOOD CELL COUNT(AUTO) 3.82 MIL/uL (4.06-5.63); RED CELL DISTRIBUTION WIDTH 13.6 % (12.1-16.2); WHITE BLOOD COUNT (AUTO) 13.5 K/uL (3.6-10.2)
[2024-04-25 06:55] LABS: DIFFERENTIAL COMMENT 1
[2024-04-25 07:02] LABS: ALANINE AMINOTRANSFERASE 31 U/L (16-63); ALBUMIN 3.2 g/dL (3.4-5.0); ALKALINE PHOSPHATASE 74 U/L (50-136); ASPARTATE AMINOTRANSFERASE 19 U/L (15-37); BILIRUBIN,TOTAL 0.5 mg/dL (0.2-1.0); CALCIUM 9.4 mg/dL (8.5-10.1); CARBON DIOXIDE 23 mmol/L (21-32); CHLORIDE 108 mmol/L (98-107); CREATININE 0.6 mg/dL (0.6-1.3); GLUCOSE 150 mg/dL (74-106); MAGNESIUM 2.1 mg/dL (1.8-2.4); POTASSIUM 3.4 mmol/L (3.5-5.1); SODIUM SERUM 143 mmol/L (136-145); TOTAL PROTEIN, SERUM 7.2 g/dL (6.4-8.2); UREA NITROGEN, BLOOD 5 mg/dL (7-18)
[2024-04-25 09:00] VITALS: TEMP 97.2
[2024-04-25 11:00] VITALS: BP 133/64; TEMP 98.4; O2SAT 96
[2024-04-25] MEDS: POTASSIUM CHLORIDE 20 MEQ POWDER PACKET GT ONE (13:32)
[2024-04-25 16:15] VITALS: TEMP 97.2; O2SAT 91
[2024-04-25 20:00] VITALS: BP 142/87; TEMP 99.2; O2SAT 97
[2024-04-26] VITALS (8 sets, daily range): BP systolic 124–147; BP diastolic 79–99; TEMP 98–100; O2SAT 92–99
[2024-04-27] VITALS (7 sets, daily range): BP systolic 119–140; BP diastolic 68–93; TEMP 97.5–99; O2SAT 94–99
[2024-04-27 07:39] LABS: BASOPHILS % (AUTO) 0.4 % (0.0-2.0); EOSINOPHILS # (AUTO) 0.3 K/uL (0.0-0.7); EOSINOPHILS % (AUTO) 4.6 % (0.0-7.0); HEMATOCRIT 37.5 % (36.7-47.1); HEMOGLOBIN 13.2 g/dL (12.5-16.3); LYMPHOCYTES # (AUTO) 2.5 K/uL (0.8-4.8); LYMPHOCYTES % (AUTO) 36.7 % (20.5-51.5); MEAN CORPUSCULAR HEMOGLOBIN 33.7 uug (23.8-33.4); MEAN CORPUSCULAR HGB CONC 35 g/dL (32.5-36.3); MEAN CORPUSCULAR VOLUME 95.8 fL (73.0-96.2); MONOCYTES # (AUTO) 1.1 K/uL (0.1-1.30); NEUTROPHILS # (AUTO) 2.8 K/uL (1.8-8.9); NEUTROPHILS % (AUTO) 42.3 % (38.5-71.5); PLATELET COUNT (AUTO) 239 K/uL (152-348); RED BLOOD CELL COUNT(AUTO) 3.91 MIL/uL (4.06-5.63); RED CELL DISTRIBUTION WIDTH 13.7 % (12.1-16.2); WHITE BLOOD COUNT (AUTO) 6.7 K/uL (3.6-10.2)
[2024-04-27 07:46] LABS: DIFFERENTIAL COMMENT 1
[2024-04-27 07:48] LABS: CALCIUM 8.9 mg/dL (8.5-10.1); CARBON DIOXIDE 23 mmol/L (21-32); CHLORIDE 105 mmol/L (98-107); CREATININE 0.5 mg/dL (0.6-1.3); GLUCOSE 112 mg/dL (74-106); PHOSPHOROUS 4.1 mg/dL (2.5-4.9); POTASSIUM 3.1 mmol/L (3.5-5.1); SODIUM SERUM 140 mmol/L (136-145); UREA NITROGEN, BLOOD 5 mg/dL (7-18)
[2024-04-27] MEDS: POTASSIUM CHLORIDE 20 MEQ POWDER PACKET GT ONE (09:20)
[2024-04-27] MEDS ORDERED: JEVITY 1.2 1000 ML LIQUID GT PRN (11:30)
[2024-04-27 14:09] LABS: BAND % (MANUAL) 3 % (0-10); EOSINOPHILS % (MANUAL) 3 % (0-8); LYMPHOCYTES % (MANUAL) 39 % (20-40); MONOCYTES % (MANUAL) 17 % (2-10); NEUTROPHILS % (MANUAL) 38 % (42-75); PLATELET ESTIMATE ADEQUATE
[2024-04-27] MEDS: HYDROCODONE/APAP 5-325MG TABLET GT PRN (16:16)
[2024-04-28 04:05] VITALS: BP 107/69; TEMP 98.3; O2SAT 97
[2024-04-28 07:56] VITALS: BP 103/78; TEMP 98; O2SAT 98
[2024-04-28 11:28] LABS: BASOPHILS % (AUTO) 0.6 % (0.0-2.0); EOSINOPHILS # (AUTO) 0.5 K/uL (0.0-0.7); EOSINOPHILS % (AUTO) 8.2 % (0.0-7.0); HEMATOCRIT 38.2 % (36.7-47.1); HEMOGLOBIN 13.1 g/dL (12.5-16.3); LYMPHOCYTES # (AUTO) 1.8 K/uL (0.8-4.8); LYMPHOCYTES % (AUTO) 28.7 % (20.5-51.5); MEAN CORPUSCULAR HEMOGLOBIN 33.1 uug (23.8-33.4); MEAN CORPUSCULAR HGB CONC 34 g/dL (32.5-36.3); MEAN CORPUSCULAR VOLUME 96.8 fL (73.0-96.2); MONOCYTES # (AUTO) 0.8 K/uL (0.1-1.30); MONOCYTES % (AUTO) 12.3 % (0.0-11.0); NEUTROPHILS # (AUTO) 3.1 K/uL (1.8-8.9); NEUTROPHILS % (AUTO) 50.2 % (38.5-71.5); PLATELET COUNT (AUTO) 241 K/uL (152-348); RED BLOOD CELL COUNT(AUTO) 3.95 MIL/uL (4.06-5.63); WHITE BLOOD COUNT (AUTO) 6.3 K/uL (3.6-10.2)
[2024-04-28 11:44] VITALS: BP 106/65; TEMP 98.2; O2SAT 99
[2024-04-28 11:46] LABS: CALCIUM 9.5 mg/dL (8.5-10.1); CARBON DIOXIDE 19 mmol/L (21-32); CHLORIDE 104 mmol/L (98-107); CREATININE 0.5 mg/dL (0.6-1.3); GLUCOSE 110 mg/dL (74-106); POTASSIUM 3.7 mmol/L (3.5-5.1); SODIUM SERUM 136 mmol/L (136-145); UREA NITROGEN, BLOOD 6 mg/dL (7-18)
[2024-04-28 11:47] VITALS: BP 111/77; TEMP 97.6; O2SAT 97
[2024-04-28 11:49] LABS: DIFFERENTIAL COMMENT 1
[2024-04-28 16:00] VITALS: BP 113/83; TEMP 98.6; O2SAT 100
[2024-04-28 19:54] VITALS: BP 130/73; TEMP 98.6; O2SAT 98
[2024-04-29] VITALS (10 sets, daily range): BP systolic 102–135; BP diastolic 70–92; TEMP 97.8–99; O2SAT 93–99
[2024-04-29 06:40] LABS: BASOPHILS % (AUTO) 0.5 % (0.0-2.0); EOSINOPHILS # (AUTO) 0.4 K/uL (0.0-0.7); EOSINOPHILS % (AUTO) 7.3 % (0.0-7.0); HEMOGLOBIN 13.4 g/dL (12.5-16.3); LYMPHOCYTES # (AUTO) 1.8 K/uL (0.8-4.8); LYMPHOCYTES % (AUTO) 30.9 % (20.5-51.5); MEAN CORPUSCULAR HEMOGLOBIN 33.2 uug (23.8-33.4); MEAN CORPUSCULAR HGB CONC 35 g/dL (32.5-36.3); MEAN CORPUSCULAR VOLUME 96.2 fL (73.0-96.2); MONOCYTES # (AUTO) 0.8 K/uL (0.1-1.30); NEUTROPHILS # (AUTO) 2.8 K/uL (1.8-8.9); NEUTROPHILS % (AUTO) 47.3 % (38.5-71.5); PLATELET COUNT (AUTO) 193 K/uL (152-348); RED BLOOD CELL COUNT(AUTO) 4.05 MIL/uL (4.06-5.63); RED CELL DISTRIBUTION WIDTH 13.8 % (12.1-16.2); WHITE BLOOD COUNT (AUTO) 5.8 K/uL (3.6-10.2)
[2024-04-29 06:52] LABS: DIFFERENTIAL COMMENT 1
[2024-04-29 06:58] LABS: ALANINE AMINOTRANSFERASE 36 U/L (16-63); ALBUMIN 3.1 g/dL (3.4-5.0); ALKALINE PHOSPHATASE 83 U/L (50-136); ASPARTATE AMINOTRANSFERASE 14 U/L (15-37); BILIRUBIN,TOTAL 0.6 mg/dL (0.2-1.0); CALCIUM 9.3 mg/dL (8.5-10.1); CARBON DIOXIDE 22 mmol/L (21-32); CHLORIDE 104 mmol/L (98-107); CREATININE 0.6 mg/dL (0.6-1.3); GLUCOSE 129 mg/dL (74-106); MAGNESIUM 2.1 mg/dL (1.8-2.4); PHOSPHOROUS 4.8 mg/dL (2.5-4.9); POTASSIUM 3.6 mmol/L (3.5-5.1); SODIUM SERUM 138 mmol/L (136-145); UREA NITROGEN, BLOOD 6 mg/dL (7-18)
[2024-04-29 09:49] LABS: CSF APPEARANCE CLEAR (CLEAR); CSF COLOR COLORLESS (COLORLESS)
[2024-04-29 09:57] LABS: CSF WHITE BLOOD CELL COUNT 8 /cumm (0-5)
[2024-04-29 09:58] LABS: CSF VOLUME 3.7 mL
[2024-04-30] VITALS (13 sets, daily range): BP systolic 91–138; BP diastolic 62–86; TEMP 98–99.2; O2SAT 93–100
[2024-05-01] VITALS (14 sets, daily range): BP systolic 98–137; BP diastolic 45–115; TEMP 98.5–104; O2SAT 96–100
[2024-05-01 10:09] LABS: BASOPHILS % (AUTO) 0.6 % (0.0-2.0); EOSINOPHILS # (AUTO) 0.5 K/uL (0.0-0.7); EOSINOPHILS % (AUTO) 7.9 % (0.0-7.0); HEMOGLOBIN 14.1 g/dL (12.5-16.3); LYMPHOCYTES # (AUTO) 2.6 K/uL (0.8-4.8); MEAN CORPUSCULAR HEMOGLOBIN 32.7 uug (23.8-33.4); MEAN CORPUSCULAR HGB CONC 34 g/dL (32.5-36.3); MEAN CORPUSCULAR VOLUME 97.5 fL (73.0-96.2); MONOCYTES # (AUTO) 0.8 K/uL (0.1-1.30); MONOCYTES % (AUTO) 14.6 % (0.0-11.0); NEUTROPHILS # (AUTO) 1.8 K/uL (1.8-8.9); NEUTROPHILS % (AUTO) 31.9 % (38.5-71.5); PLATELET COUNT (AUTO) 274 K/uL (152-348); RED BLOOD CELL COUNT(AUTO) 4.31 MIL/uL (4.06-5.63); RED CELL DISTRIBUTION WIDTH 14.2 % (12.1-16.2); WHITE BLOOD COUNT (AUTO) 5.8 K/uL (3.6-10.2)
[2024-05-01 11:35] LABS: CARBON DIOXIDE 22 mmol/L (21-32); CHLORIDE 104 mmol/L (98-107); GLUCOSE 125 mg/dL (74-106); SODIUM SERUM 138 mmol/L (136-145)
[2024-05-01 11:35] LABS: BASOPHILS % (AUTO) 0.3 % (0.0-2.0); EOSINOPHILS # (AUTO) 0.1 K/uL (0.0-0.7); EOSINOPHILS % (AUTO) 0.8 % (0.0-7.0); HEMATOCRIT 43.7 % (36.7-47.1); HEMOGLOBIN 14.4 g/dL (12.5-16.3); LYMPHOCYTES # (AUTO) 0.3 K/uL (0.8-4.8); MEAN CORPUSCULAR HEMOGLOBIN 32.5 uug (23.8-33.4); MEAN CORPUSCULAR HGB CONC 33 g/dL (32.5-36.3); MEAN CORPUSCULAR VOLUME 98.8 fL (73.0-96.2); MONOCYTES % (AUTO) 0.6 % (0.0-11.0); NEUTROPHILS % (AUTO) 94.3 % (38.5-71.5); PLATELET COUNT (AUTO) 197 K/uL (152-348); RED BLOOD CELL COUNT(AUTO) 4.42 MIL/uL (4.06-5.63); RED CELL DISTRIBUTION WIDTH 14.4 % (12.1-16.2); WHITE BLOOD COUNT (AUTO) 8.5 K/uL (3.6-10.2)
[2024-05-01 11:36] LABS: CREATININE 0.6 mg/dL (0.6-1.3); MAGNESIUM 2.1 mg/dL (1.8-2.4); PHOSPHOROUS 5.4 mg/dL (2.5-4.9); UREA NITROGEN, BLOOD 8 mg/dL (7-18)
[2024-05-01 11:53] LABS: *BILIRUBIN,URIN NEGATIVE (NEGATIVE); *CLARITY,URINE CLEAR (CLEAR); *COLOR,URINE YELLOW (YELLOW); *KETONES,URINE TRACE (NEGATIVE); *PROTEIN,URINE 1+ (NEGATIVE); *UROBILINOGEN,URINE 0.2 E.U./dl (NORMAL); LEUKOCYTE ESTERASE ,URINE NEGATIVE (NEGATIVE); NITRITE, URINE NEGATIVE (NEGATIVE); PH,URINE 6.5 (5.0-8.0); UGLUCOSE NEGATIVE (NEGATIVE)
[2024-05-01 12:13] LABS: DIFFERENTIAL COMMENT 1
[2024-05-01 12:53] LABS: *BLOOD, URINE TRACE (NEGATIVE)
[2024-05-01 15:10] LABS: BACTERIA,URINE NONE SEEN /HPF (NONE SEEN); CALCIUM OXALATE CRYSTALS,UR MODERATE /HPF (NONE SEEN); SQUAMOUS EPITHELIAL CELL,UR FEW /HPF (NONE SEEN); WBC,URINE NONE SEEN /HPF (0-3)
[2024-05-01] MEDS: BACLOFEN 10 MG TABLET GT SCH (16:43)
[2024-05-01 22:38] LABS: CALCIUM 9.4 mg/dL (8.5-10.1)
[2024-05-02] VITALS (56 sets, daily range): BP systolic 76–187; BP diastolic 36–143; TEMP 98.5–101.1; O2SAT 80–100
[2024-05-02] MEDS ORDERED: PHENYLEPHRINE IV 50 MG in IV NORMAL SALINE 245 ML IV PRN (02:15)
[2024-05-02] MEDS: PHENYLEPHRINE 10 MG/1 ML VIAL ONE (02:36)
[2024-05-02 05:12] LABS: HEMATOCRIT 40.7 % (36.7-47.1); HEMOGLOBIN 13.7 g/dL (12.5-16.3); LYMPHOCYTES # (AUTO) 0.8 K/uL (0.8-4.8); MEAN CORPUSCULAR HEMOGLOBIN 33.1 uug (23.8-33.4); MEAN CORPUSCULAR HGB CONC 34 g/dL (32.5-36.3); MONOCYTES # (AUTO) 0.5 K/uL (0.1-1.30); NEUTROPHILS # (AUTO) 25.4 K/uL (1.8-8.9); PLATELET COUNT (AUTO) 179 K/uL (152-348); RED BLOOD CELL COUNT(AUTO) 4.16 MIL/uL (4.06-5.63); WHITE BLOOD COUNT (AUTO) 26.8 K/uL (3.6-10.2)
[2024-05-02 05:38] LABS: LACTIC ACID 2.2 mmol/L (0.4-2.0)
[2024-05-02 05:42] LABS: ALANINE AMINOTRANSFERASE 39 U/L (16-63); ALBUMIN 3.2 g/dL (3.4-5.0); ALKALINE PHOSPHATASE 121 U/L (50-136); ASPARTATE AMINOTRANSFERASE 36 U/L (15-37); BILIRUBIN,TOTAL 0.5 mg/dL (0.2-1.0); CALCIUM 9.2 mg/dL (8.5-10.1); CARBON DIOXIDE 22 mmol/L (21-32); CHLORIDE 105 mmol/L (98-107); CREATININE 0.7 mg/dL (0.6-1.3); GLUCOSE 91 mg/dL (74-106); NT-PRO BNP 343 pg/mL (0-125); POTASSIUM 3.6 mmol/L (3.5-5.1); SODIUM SERUM 139 mmol/L (136-145); TOTAL PROTEIN, SERUM 7.3 g/dL (6.4-8.2); UREA NITROGEN, BLOOD 11 mg/dL (7-18)
[2024-05-02 06:07] LABS: DIFFERENTIAL COMMENT 1
[2024-05-02] MEDS: ASPIRIN 325 MG TABLET GT SCH (12:55)
[2024-05-02] MEDS: PHENYLEPHRINE IV 50 MG in IV NORMAL SALINE 245 ML IV PRN (13:25)
[2024-05-02] MEDS ORDERED: PREMIXED IV SCH ×2 (14:00)
[2024-05-02] MEDS ORDERED: [UNRECOGNIZED DRUG - OTHER] IV SCH (14:00)
[2024-05-02] MEDS ORDERED: NORMAL SALINE IV SCH (14:00)
[2024-05-02] MEDS ORDERED: METRONIDAZOLE IV SCH (14:00)
[2024-05-02] MEDS ORDERED: LINEZOLID IV SCH (14:00)
[2024-05-02] MEDS ORDERED: MICAFUNGIN SODIUM IV SCH (14:00)
[2024-05-02] MEDS ORDERED: DOSING BY PHARMACY-MD TO SPECIFY MED/ROUTE XX PRN ×3 (14:15)
[2024-05-02 15:11] LABS: CRYPTOCOCCUS AG CSF Negative (Negative)
[2024-05-02] MEDS ORDERED: MISCELLANEOUS MED XX PRN (16:00)
[2024-05-02] MEDS: MICAFUNGIN SODIUM 100 MG in IV NORMAL SALINE 100 ML IV SCH (16:55)
[2024-05-02] MEDS: METRONIDAZOLE 500 MG/NS 100ML 100 ML IV SCH (17:12)
[2024-05-02] MEDS: LINEZOLID IV 600 MG in PREMIXED 1 EACH IV SCH (17:12)
[2024-05-02] MEDS: AMIODARONE HCL 150 MG/3 ML VIAL IV ONE ×2 (22:01→23:03)
[2024-05-02] MEDS: AMIODARONE HCL IV 150 MG in IV DEXTROSE 5% 100 ML IV ONE (22:05)
[2024-05-02] MEDS: AMIODARONE HCL IV 450 MG in IV DEXTROSE 5% 250 ML IV PRN (23:24)
[2024-05-02] MEDS: CEFTAZIDIME IV SCH (23:30)
[2024-05-02] MEDS: NORMAL SALINE IV SCH (23:30)
[2024-05-02] MEDS: AVIBACTAM IV SCH (23:30)
[2024-05-02] MEDS: ACETAMINOPHEN 650 MG SUPP.RECT RC PRN (23:42)
[2024-05-03] VITALS (37 sets, daily range): BP systolic 91–127; BP diastolic 61–90; TEMP 97.5–99.8; O2SAT 95–100
[2024-05-03] MEDS: AMIODARONE HCL 150 MG/3 ML VIAL IV ONE (04:30)
[2024-05-03 12:10] LABS: HEMATOCRIT 41.3 % (36.7-47.1); HEMOGLOBIN 14.2 g/dL (12.5-16.3); MEAN CORPUSCULAR HEMOGLOBIN 33.4 uug (23.8-33.4); MEAN CORPUSCULAR VOLUME 97.1 fL (73.0-96.2); RED BLOOD CELL COUNT(AUTO) 4.26 MIL/uL (4.06-5.63); WHITE BLOOD COUNT (AUTO) 9.7 K/uL (3.6-10.2)
[2024-05-03 12:11] LABS: BASOPHILS % (AUTO) 0.2 % (0.0-2.0); EOSINOPHILS % (AUTO) 0.1 % (0.0-7.0); LYMPHOCYTES # (AUTO) 1.4 K/uL (0.8-4.8); LYMPHOCYTES % (AUTO) 14.5 % (20.5-51.5); MEAN CORPUSCULAR HGB CONC 35 g/dL (32.5-36.3); MONOCYTES # (AUTO) 0.8 K/uL (0.1-1.30); MONOCYTES % (AUTO) 8.1 % (0.0-11.0); NEUTROPHILS # (AUTO) 7.5 K/uL (1.8-8.9); NEUTROPHILS % (AUTO) 77.1 % (38.5-71.5); PLATELET COUNT (AUTO) 145 K/uL (152-348); RED CELL DISTRIBUTION WIDTH 13.9 % (12.1-16.2)
[2024-05-03 14:48] LABS: CALCIUM 9.3 mg/dL (8.5-10.1); CREATININE 0.7 mg/dL (0.6-1.3); MAGNESIUM 1.8 mg/dL (1.8-2.4); PHOSPHOROUS 2.3 mg/dL (2.5-4.9); POTASSIUM 4.3 mmol/L (3.5-5.1)
[2024-05-04] VITALS (24 sets, daily range): BP systolic 96–129; BP diastolic 59–85; TEMP 98–98.6; O2SAT 95–100
[2024-05-04 05:02] LABS: BASOPHILS % (AUTO) 0.4 % (0.0-2.0); EOSINOPHILS # (AUTO) 0.1 K/uL (0.0-0.7); EOSINOPHILS % (AUTO) 2.4 % (0.0-7.0); HEMATOCRIT 33.5 % (36.7-47.1); HEMOGLOBIN 11.5 g/dL (12.5-16.3); LYMPHOCYTES # (AUTO) 1.1 K/uL (0.8-4.8); LYMPHOCYTES % (AUTO) 29.6 % (20.5-51.5); MEAN CORPUSCULAR HEMOGLOBIN 33.3 uug (23.8-33.4); MEAN CORPUSCULAR HGB CONC 35 g/dL (32.5-36.3); MEAN CORPUSCULAR VOLUME 96.8 fL (73.0-96.2); MONOCYTES # (AUTO) 0.6 K/uL (0.1-1.30); MONOCYTES % (AUTO) 16.7 % (0.0-11.0); NEUTROPHILS # (AUTO) 1.8 K/uL (1.8-8.9); NEUTROPHILS % (AUTO) 50.9 % (38.5-71.5); PLATELET COUNT (AUTO) 128 K/uL (152-348); RED BLOOD CELL COUNT(AUTO) 3.46 MIL/uL (4.06-5.63); RED CELL DISTRIBUTION WIDTH 13.9 % (12.1-16.2); WHITE BLOOD COUNT (AUTO) 3.6 K/uL (3.6-10.2)
[2024-05-04 05:17] LABS: CALCIUM 8.6 mg/dL (8.5-10.1); CARBON DIOXIDE 25 mmol/L (21-32); CHLORIDE 106 mmol/L (98-107); CREATININE 0.6 mg/dL (0.6-1.3); GLUCOSE 166 mg/dL (74-106); MAGNESIUM 1.7 mg/dL (1.8-2.4); PHOSPHOROUS 2.8 mg/dL (2.5-4.9); POTASSIUM 3.2 mmol/L (3.5-5.1); SODIUM SERUM 138 mmol/L (136-145); UREA NITROGEN, BLOOD 7 mg/dL (7-18)
[2024-05-04 05:19] LABS: DIFFERENTIAL COMMENT 1
[2024-05-04 05:56] LABS: BAND % (MANUAL) 3 % (0-10); BASOPHILS % (MANUAL) 2 % (0-2); LYMPHOCYTES % (MANUAL) 29 % (20-40); METAMYELOCYTES % 2 % (0-1); MONOCYTES % (MANUAL) 11 % (2-10); NEUTROPHILS % (MANUAL) 53 % (42-75); PLATELET ESTIMATE DECREASED
[2024-05-04] MEDS: MAGNESIUM SULFATE/D5W 100 ML IV SCH (11:36)
[2024-05-04] MEDS: POTASSIUM CHLORIDE 20 MEQ POWDER PACKET GT ONE (11:38)
[2024-05-04] MEDS ORDERED: REMEDY ESSENTIAL ZINC PASTE 113 GM TOP PRN (12:30)
[2024-05-05] VITALS (27 sets, daily range): BP systolic 94–142; BP diastolic 67–94; TEMP 97.6–98.9; O2SAT 99–100
[2024-05-05 05:06] LABS: BASOPHILS % (AUTO) 0.4 % (0.0-2.0); EOSINOPHILS # (AUTO) 0.1 K/uL (0.0-0.7); EOSINOPHILS % (AUTO) 2.2 % (0.0-7.0); HEMATOCRIT 34.5 % (36.7-47.1); HEMOGLOBIN 11.7 g/dL (12.5-16.3); LYMPHOCYTES # (AUTO) 1.5 K/uL (0.8-4.8); LYMPHOCYTES % (AUTO) 29.3 % (20.5-51.5); MEAN CORPUSCULAR HEMOGLOBIN 33.2 uug (23.8-33.4); MEAN CORPUSCULAR HGB CONC 34 g/dL (32.5-36.3); MEAN CORPUSCULAR VOLUME 97.5 fL (73.0-96.2); MONOCYTES # (AUTO) 0.7 K/uL (0.1-1.30); MONOCYTES % (AUTO) 13.2 % (0.0-11.0); NEUTROPHILS # (AUTO) 2.9 K/uL (1.8-8.9); NEUTROPHILS % (AUTO) 54.9 % (38.5-71.5); PLATELET COUNT (AUTO) 152 K/uL (152-348); RED BLOOD CELL COUNT(AUTO) 3.54 MIL/uL (4.06-5.63); RED CELL DISTRIBUTION WIDTH 14.2 % (12.1-16.2); WHITE BLOOD COUNT (AUTO) 5.3 K/uL (3.6-10.2)
[2024-05-05 05:34] LABS: CALCIUM 8.5 mg/dL (8.5-10.1); CARBON DIOXIDE 24 mmol/L (21-32); CHLORIDE 105 mmol/L (98-107); CREATININE 0.5 mg/dL (0.6-1.3); GLUCOSE 178 mg/dL (74-106); PHOSPHOROUS 3.3 mg/dL (2.5-4.9); POTASSIUM 3.8 mmol/L (3.5-5.1); SODIUM SERUM 139 mmol/L (136-145); UREA NITROGEN, BLOOD 5 mg/dL (7-18)
[2024-05-05 05:42] LABS: C-REACTIVE PROTEIN 4.52 mg/dL (0.00-0.30)
[2024-05-05 05:46] LABS: DIFFERENTIAL COMMENT 1
[2024-05-06] VITALS (20 sets, daily range): BP systolic 98–138; BP diastolic 71–96; TEMP 97.9–99.6; O2SAT 96–100
[2024-05-06 05:10] LABS: BASOPHILS % (AUTO) 0.5 % (0.0-2.0); EOSINOPHILS # (AUTO) 0.4 K/uL (0.0-0.7); EOSINOPHILS % (AUTO) 10.6 % (0.0-7.0); HEMATOCRIT 33.7 % (36.7-47.1); HEMOGLOBIN 11.5 g/dL (12.5-16.3); LYMPHOCYTES # (AUTO) 2.1 K/uL (0.8-4.8); LYMPHOCYTES % (AUTO) 49.7 % (20.5-51.5); MEAN CORPUSCULAR HEMOGLOBIN 32.9 uug (23.8-33.4); MEAN CORPUSCULAR HGB CONC 34 g/dL (32.5-36.3); MEAN CORPUSCULAR VOLUME 96.2 fL (73.0-96.2); MONOCYTES # (AUTO) 0.6 K/uL (0.1-1.30); NEUTROPHILS # (AUTO) 1.1 K/uL (1.8-8.9); NEUTROPHILS % (AUTO) 25.2 % (38.5-71.5); PLATELET COUNT (AUTO) 202 K/uL (152-348); RED CELL DISTRIBUTION WIDTH 13.8 % (12.1-16.2); WHITE BLOOD COUNT (AUTO) 4.2 K/uL (3.6-10.2)
[2024-05-06 05:11] LABS: DIFFERENTIAL COMMENT 1
[2024-05-06 05:31] LABS: CALCIUM 9.2 mg/dL (8.5-10.1); CARBON DIOXIDE 24 mmol/L (21-32); CHLORIDE 106 mmol/L (98-107); CREATININE 0.5 mg/dL (0.6-1.3); GLUCOSE 168 mg/dL (74-106); MAGNESIUM 1.9 mg/dL (1.8-2.4); PHOSPHOROUS 3.8 mg/dL (2.5-4.9); SODIUM SERUM 140 mmol/L (136-145); UREA NITROGEN, BLOOD 5 mg/dL (7-18)
[2024-05-06] MEDS: METOCLOPRAMIDE HCL 10 MG/10 ML UDC GT SCH (17:40)
[2024-05-07] VITALS (7 sets, daily range): BP systolic 121–154; BP diastolic 71–87; TEMP 97.8–99.5; O2SAT 94–100
[2024-05-07] MEDS ORDERED: METOCLOPRAMIDE HCL 10 MG/2 ML VIAL ONE (01:36)
[2024-05-07] MEDS ORDERED: METOCLOPRAMIDE HCL 10 MG TABLET ONE (01:42)
[2024-05-07 07:20] LABS: BASOPHILS # (AUTO) 0.3 K/UL (0.0-0.2); BASOPHILS % (AUTO) 2.8 % (0.0-2.0); EOSINOPHILS % (AUTO) 0.3 % (0.0-7.0); HEMATOCRIT 34.7 % (36.7-47.1); HEMOGLOBIN 11.6 g/dL (12.5-16.3); LYMPHOCYTES # (AUTO) 0.7 K/uL (0.8-4.8); LYMPHOCYTES % (AUTO) 6.7 % (20.5-51.5); MEAN CORPUSCULAR HEMOGLOBIN 32.3 uug (23.8-33.4); MEAN CORPUSCULAR HGB CONC 34 g/dL (32.5-36.3); MEAN CORPUSCULAR VOLUME 96.5 fL (73.0-96.2); MONOCYTES # (AUTO) 0.8 K/uL (0.1-1.30); MONOCYTES % (AUTO) 7.8 % (0.0-11.0); NEUTROPHILS # (AUTO) 8.9 K/uL (1.8-8.9); NEUTROPHILS % (AUTO) 82.4 % (38.5-71.5); PLATELET COUNT (AUTO) 244 K/uL (152-348); RED BLOOD CELL COUNT(AUTO) 3.59 MIL/uL (4.06-5.63); RED CELL DISTRIBUTION WIDTH 14.3 % (12.1-16.2); WHITE BLOOD COUNT (AUTO) 10.7 K/uL (3.6-10.2)
[2024-05-07 07:40] LABS: DIFFERENTIAL COMMENT 1
[2024-05-07 07:41] LABS: CALCIUM 8.9 mg/dL (8.5-10.1); CREATININE 0.7 mg/dL (0.6-1.3); MAGNESIUM 1.8 mg/dL (1.8-2.4); PHOSPHOROUS 3.3 mg/dL (2.5-4.9); POTASSIUM 3.7 mmol/L (3.5-5.1)
[2024-05-08 04:09] VITALS: BP 147/88; TEMP 98.7; O2SAT 96
[2024-05-08 07:31] LABS: CALCIUM 8.7 mg/dL (8.5-10.1); CARBON DIOXIDE 23 mmol/L (21-32); CHLORIDE 106 mmol/L (98-107); CREATININE 0.5 mg/dL (0.6-1.3); GLUCOSE 193 mg/dL (74-106); MAGNESIUM 1.8 mg/dL (1.8-2.4); PHOSPHOROUS 2.9 mg/dL (2.5-4.9); POTASSIUM 3.8 mmol/L (3.5-5.1); SODIUM SERUM 141 mmol/L (136-145); UREA NITROGEN, BLOOD 6 mg/dL (7-18)
[2024-05-08 07:39] LABS: BASOPHILS % (AUTO) 0.4 % (0.0-2.0); EOSINOPHILS # (AUTO) 0.1 K/uL (0.0-0.7); EOSINOPHILS % (AUTO) 1.2 % (0.0-7.0); HEMATOCRIT 34.6 % (36.7-47.1); HEMOGLOBIN 11.8 g/dL (12.5-16.3); LYMPHOCYTES # (AUTO) 2.4 K/uL (0.8-4.8); LYMPHOCYTES % (AUTO) 24.5 % (20.5-51.5); MEAN CORPUSCULAR HEMOGLOBIN 32.8 uug (23.8-33.4); MEAN CORPUSCULAR HGB CONC 34 g/dL (32.5-36.3); MEAN CORPUSCULAR VOLUME 96.1 fL (73.0-96.2); MONOCYTES # (AUTO) 1.3 K/uL (0.1-1.30); MONOCYTES % (AUTO) 12.9 % (0.0-11.0); PLATELET COUNT (AUTO) 227 K/uL (152-348); RED CELL DISTRIBUTION WIDTH 13.9 % (12.1-16.2); WHITE BLOOD COUNT (AUTO) 9.9 K/uL (3.6-10.2)
[2024-05-08 07:44] LABS: DIFFERENTIAL COMMENT 1
[2024-05-08 08:00] VITALS: BP 145/71; TEMP 97.7; O2SAT 99
[2024-05-08 08:15] LABS: EOSINOPHILS % (MANUAL) 2 % (0-8); LYMPHOCYTES % (MANUAL) 29 % (20-40); MONOCYTES % (MANUAL) 9 % (2-10); NEUTROPHILS % (MANUAL) 60 % (42-75)
[2024-05-08 08:16] LABS: PLATELET ESTIMATE ADEQUATE
[2024-05-08 12:00] VITALS: BP 131/80; TEMP 97.7; O2SAT 99
[2024-05-08 15:46] VITALS: BP 116/82; TEMP 97.6; O2SAT 99
[2024-05-08 16:00] VITALS: BP 118/81; TEMP 98.7; O2SAT 98
[2024-05-08] MEDS: JEVITY 1.2 1000 ML LIQUID GT PRN (16:45)
[2024-05-08 20:32] VITALS: BP 124/79; TEMP 98.4; O2SAT 100
[2024-05-09] VITALS: BP 127/85; TEMP 98.3; O2SAT 100
[2024-05-09 04:00] VITALS: BP 124/80; TEMP 98.4; O2SAT 98
[2024-05-09 07:24] LABS: BASOPHILS % (AUTO) 0.6 % (0.0-2.0); EOSINOPHILS # (AUTO) 0.2 K/uL (0.0-0.7); EOSINOPHILS % (AUTO) 3.6 % (0.0-7.0); HEMATOCRIT 36.9 % (36.7-47.1); HEMOGLOBIN 12.5 g/dL (12.5-16.3); LYMPHOCYTES # (AUTO) 2.7 K/uL (0.8-4.8); LYMPHOCYTES % (AUTO) 45.3 % (20.5-51.5); MEAN CORPUSCULAR HEMOGLOBIN 32.5 uug (23.8-33.4); MEAN CORPUSCULAR HGB CONC 34 g/dL (32.5-36.3); MEAN CORPUSCULAR VOLUME 95.8 fL (73.0-96.2); MONOCYTES # (AUTO) 0.7 K/uL (0.1-1.30); MONOCYTES % (AUTO) 11.9 % (0.0-11.0); NEUTROPHILS # (AUTO) 2.3 K/uL (1.8-8.9); NEUTROPHILS % (AUTO) 38.6 % (38.5-71.5); PLATELET COUNT (AUTO) 291 K/uL (152-348); RED BLOOD CELL COUNT(AUTO) 3.85 MIL/uL (4.06-5.63); RED CELL DISTRIBUTION WIDTH 14.4 % (12.1-16.2)
[2024-05-09 07:33] VITALS: BP 107/72; TEMP 98.6; O2SAT 96
[2024-05-09 07:36] LABS: CALCIUM 9.7 mg/dL (8.5-10.1); CARBON DIOXIDE 23 mmol/L (21-32); CHLORIDE 103 mmol/L (98-107); CREATININE 0.6 mg/dL (0.6-1.3); GLUCOSE 150 mg/dL (74-106); MAGNESIUM 1.9 mg/dL (1.8-2.4); PHOSPHOROUS 3.9 mg/dL (2.5-4.9); POTASSIUM 3.8 mmol/L (3.5-5.1); SODIUM SERUM 139 mmol/L (136-145); UREA NITROGEN, BLOOD 9 mg/dL (7-18)
[2024-05-09 07:41] LABS: DIFFERENTIAL COMMENT 1
[2024-05-09 12:39] LABS: ALBUMIN 3.1 g/dL (3.4-5.0); BILIRUBIN,DIRECT 0.1 mg/dL (0.0-0.2); BILIRUBIN,TOTAL 0.3 mg/dL (0.2-1.0); TOTAL PROTEIN, SERUM 7.1 g/dL (6.4-8.2)
[2024-05-09 16:06] VITALS: BP 121/82; TEMP 97.8; O2SAT 99
[2024-05-09 21:28] VITALS: BP 127/78; TEMP 98.5; O2SAT 100
[2024-05-09 23:46] VITALS: BP 127/79; TEMP 98.5; O2SAT 99
[2024-05-10 03:08] VITALS: BP 112/65; TEMP 97.8; O2SAT 95
[2024-05-10 05:08] VITALS: BP 117/65; TEMP 98.8; O2SAT 100
[2024-05-10 07:29] VITALS: BP 115/60; TEMP 98.7; O2SAT 99
[2024-05-10 10:56] VITALS: BP 117/74; TEMP 98.5; O2SAT 100
[2024-05-10] MEDS ORDERED: LINE600T15 GT (12:44)
[2024-05-10] MEDS ORDERED: CEFT2.5V IV (12:44)
[2024-05-10] MEDS ORDERED: METR500T GT (12:44)
[2024-05-10] MEDS ORDERED: ACET-73 GT (12:44)
[2024-05-10] MEDS: METRONIDAZOLE 500 MG TABLET GT SCH (13:40)
[2024-05-10] MEDS ORDERED: METRONIDAZOLE 500 MG TABLET PO SCH (14:00)
[2024-05-10] MEDS ORDERED: LINEZOLID 600 MG TABLET GT SCH (21:00)
[2024-05-10] MEDS ORDERED: LINEZOLID 600 MG TABLET PO SCH (21:00)
== END 2024-05-10 14:30 | DRG 870 ==
LOC: ER 07:25 → CCU 11:49 → TELE-TD3 04-24 15:48 → CCU 04-29 19:05 → TELE-TD3 04-30 17:30 → CCU 05-01 22:00 → TELE-TD3 05-06 18:59
PROVIDERS: ADMIT Internal Medicine; ATTEND Internal Medicine
PROC: 5A1955Z Respiratory Ventilation, Greater than 96 Consecutive Hours (ICD-10-PCS; principal; 2024-04-18)
PROC: 05HA33Z Insertion of Infusion Device into Left Brachial Vein, Percutaneous Approach (ICD-10-PCS; 2024-04-18)
PROC: 05H933Z Insertion of Infusion Device into Right Brachial Vein, Percutaneous Approach (ICD-10-PCS; 2024-04-19)
PROC: 02HV33Z Insertion of Infusion Device into Superior Vena Cava, Percutaneous Approach (ICD-10-PCS; 2024-04-24)
PROC: 009U3ZX Drainage of Spinal Canal, Percutaneous Approach, Diagnostic (ICD-10-PCS; 2024-04-29)
PROC: 05HB33Z Insertion of Infusion Device into Right Basilic Vein, Percutaneous Approach (ICD-10-PCS; 2024-05-08)
DX: A41.9 Sepsis, unspecified organism (principal); R53.2 Functional quadriplegia; J96.21 Acute and chronic respiratory failure with hypoxia; G92.8 Other toxic encephalopathy; J69.0 Pneumonitis due to inhalation of food and vomit; I21.A1 Myocardial infarction type 2; R65.21 Severe sepsis with septic shock; G93.1 Anoxic brain damage, not elsewhere classified; J98.11 Atelectasis; G91.2 (Idiopathic) normal pressure hydrocephalus; Z99.11 Dependence on respirator [ventilator] status; D68.59 Other primary thrombophilia; E87.21 Acute metabolic acidosis; E44.0 Moderate protein-calorie malnutrition; E88.09 Other disorders of plasma-protein metabolism, not elsewhere classified; Z86.16 Personal history of COVID-19; K80.20 Calculus of gallbladder without cholecystitis without obstruction; G40.909 Epilepsy, unspecified, not intractable, without status epilepticus; K43.9 Ventral hernia without obstruction or gangrene; M62.838 Other muscle spasm; K31.84 Gastroparesis; K52.9 Noninfective gastroenteritis and colitis, unspecified; R13.10 Dysphagia, unspecified; N20.0 Calculus of kidney; E78.1 Pure hyperglyceridemia; Z74.09 Other reduced mobility; Z86.74 Personal history of sudden cardiac arrest; R73.9 Hyperglycemia, unspecified; Z93.4 Other artificial openings of gastrointestinal tract status; Z98.2 Presence of cerebrospinal fluid drainage device; Z88.1 Allergy status to other antibiotic agents; Z91.041 Radiographic dye allergy status; Z68.26 Body mass index [BMI] 26.0-26.9, adult; Z93.0 Tracheostomy status; Z79.899 Other long term (current) drug therapy
CPT/HCPCS: 36415; 36569; 36600; 70030-TC; 70450; 71045; 74018; 82746; 83605; 83735; 83921; 84100; 84157; 84443; 84484; 85025; 85730; 86140; 87040; 87077; 89051; 93005; 93307; 94002; 94003; 94760; 99082-TC; A4606; A4663; A6209; A6213; A9150; C1758; G0378; J0282; J0713; J1644; J2020; J2060; J2248; J2405; J2765; J3475; J3480; J3490; J7040; J7050; J8597; Q0162; Q9967

== ENCOUNTER 2024-05-10 14:50 | Inpatient (IN) | payer MEDICARE, OTHER ==
[~2024-05-10] VITALS: Ht 198.1 cm; Wt 52.2 kg
[~2024-05-10 14:50] MED LIST changes: +ACET-73 GT; +ACID1TAB12 GT; +ALBUTEROL NEB; -ASCO500C18 GT; +BACLOFEN GT; +BISA10SU95 RC; +HYDR-3972 GT; -HYDR237S13 TP; -KETO15CR2 TP; -LINE600I9 IV; +LINE600T15 GT; +MAGN400O6 GT; -METO25TA6 GT; -METR500P3 IV; +METR500T GT; -MULT-647 GT; -NEOM1OIN19 TP; +NIZORAL SHAMPOO TOP; +ONDASTERON GT; +[UNRECOGNIZED DRUG - OTHER] GT; +[UNRECOGNIZED DRUG - OTHER] NEB
--- NOTE | 2024-05-10 14:50 | NUR ---
Pt was transferred from [facility] floor accompanied by 2 nurses and 1 Rt,received awake,no respiratory distress noted,has a trach shiley # 6 XLT cuffed ,connected to the ventilator AC 12,VT 450,PEEP 5 F102 30 %,suctioned with small amount of pale yellow secretions,complete body check done,no pressures sores noted ,midline on the R upper arm,and has a HL # 22 on the L hand intact,has a GT bard 16/6 cc,Fc in place 16/6 cc,patent with yellow color urine noted.Hob elevated to prevent aspiration,afebrile,no distress noted,report received Addendum: 05/10/24 at 2220 by ERROL CAMARENA RN AC 16
[2024-05-10 15:30] VITALS: TEMP 98.2
--- NOTE | 2024-05-10 15:30 | NUR ---
SW admissions paperwork: SW called and spoke to pt's mother, Lizzette, [phone] to complete the admissions paperwork: (Patient's right's Acknowledgement, Documentation of Preferred Intensity of Care, Conditions of Admission, CDPH Agreement, and Voluntary Prior Express Consent Form). Lizzette told SW she will stop by to sign the forms in person on 05/15/24.
--- NOTE | 2024-05-10 16:34 | NUR ---
PT was transferred from third floor back up to [facility]. PT was placed on cassie HT50 ventilator on MD ordered vent settings and is trached with a shiley 6XLT. PT remains stable with no resp distress noted. Trach is patent and secured, spare trach along with ambu-bag at bedside. Vent settings are A/C 12, VT 450, PEEP +5, 30% (2.5 LPM). Addendum: 05/11/24 at 1032 by WENDIE DORAN RT Vent settings A/C 16, VT 450, PEEP +5, 30% (2.5 LPM)
[2024-05-10] MEDS ORDERED: MAGNESIUM HYDROXIDE 30 ML LIQUID UDC GT PRN (18:45)
[2024-05-10] MEDS ORDERED: BISACODYL 10 MG SUPP.RECT RC PRN (18:45)
[2024-05-10] MEDS ORDERED: JEVITY 1.2 1000 ML LIQUID GT PRN (18:45)
[2024-05-10] MEDS ORDERED: REMEDY ESSENTIAL ZINC PASTE 113 GM TP PRN (18:45)
[2024-05-10] MEDS ORDERED: ALBUTEROL SULFATE 2.5 MG/3 ML NEBU NEB PRN (19:15)
[2024-05-10] MEDS: JEVITY 1.2 1000 ML LIQUID GT PRN (19:20)
[2024-05-10 19:42] VITALS: TEMP 98.7
[2024-05-10] MEDS: LINEZOLID 600 MG TABLET GT SCH (20:12)
[2024-05-10] MEDS: ACIDOPHILUS/BULGARICUS CHEW TAB GT SCH (20:12)
[2024-05-10] MEDS: REMEDY ESSENTIAL ZINC PASTE 113 GM TP SCH (20:13)
[2024-05-10] MEDS: HEPARIN SODIUM,PORCINE 5,000 UNITS/ML VIAL SQ SCH (21:00)
[2024-05-10] MEDS: AVIBACTAM IV SCH (21:22)
[2024-05-10] MEDS: NORMAL SALINE FLUSH 10 ML DISP.SYRIN IV SCH (21:22)
[2024-05-10] MEDS: NORMAL SALINE IV SCH (21:22)
[2024-05-10] MEDS: CEFTAZIDIME IV SCH (21:22)
[2024-05-10] MEDS: METRONIDAZOLE 500 MG TABLET GT SCH (21:26)
[2024-05-10] MEDS ORDERED: CEFTAZIDIME IV SCH (22:00)
[2024-05-10] MEDS ORDERED: AVIBACTAM IV SCH (22:00)
[2024-05-10] MEDS ORDERED: NORMAL SALINE IV SCH (22:00)
[2024-05-11 00:05] VITALS: TEMP 98.9
--- NOTE | 2024-05-11 00:30 | NUR ---
PT ON TRACH WITH VENT NO SOB DISTRESS.CONTINUE ON AVYCAZ 2 GM IV Q 8 HRS X7 DAYS FOR FEVER NO A/R NOTED.PT HAS MIDLINE ON (SIMIN).NO S/S OF PAIN .
[2024-05-11] MEDS ORDERED: ALBUTEROL SULFATE 2.5 MG/3 ML NEBU NEB PRN ×2 (06:30→14:34)
[2024-05-11] MEDS: PANTOPRAZOLE ORAL SUSPENSION 40 MG SUSPDR.PKT GT SCH (06:32)
[2024-05-11] MEDS ORDERED: HYDROGEN PEROXIDE 3% 118 ML BOTTLE TP PRN (06:45)
[2024-05-11 07:52] VITALS: TEMP 98.3
[2024-05-11] MEDS: HYDROGEN PEROXIDE 3% 118 ML BOTTLE TP SCH (09:00)
[2024-05-11] MEDS: BACLOFEN 10 MG TABLET GT SCH ×2 (09:00→17:00)
--- NOTE | 2024-05-11 10:36 | NUR ---
Employment Director Note: Per natural resource officer, Rama, request SW called pt's mother, Lizzette, to inform her that Doctor Joe isnt working here anymore, and the new doctor for the pt will be doctor Harshad Cornejo. Lizzette appreciated the call and the update.
--- NOTE | 2024-05-11 16:11 | NUR ---
CHARU IDT Invitation Note: CHARU emailed pt.'s mother, Lizzette, in regard to the pt.'s IDT meeting on May 16 at 11am.
[2024-05-11 20:01] VITALS: TEMP 98.2
[2024-05-11] MEDS: HEPARIN SODIUM,PORCINE 5,000 UNITS/ML VIAL SQ SCH (21:27)
--- NOTE | 2024-05-12 00:50 | NUR ---
RESP. PT RECEIVED AND REMAINED ON AC,16,VT450,+5,(2.5 LPM )PT'S STABLE, NO SIGNS OF RESP DISTRESS .TRACH TUBE SECURED .SPO>92%,PT STABLE AT THIS TIME.
--- NOTE | 2024-05-12 03:42 | NUR ---
PT CONTINUE ON AVYCAZ 2 GM IV Q8 HRS FOR 7 DAYS FOR FEVER NO A/R NOTED.MIDLINE ON (SIMIN) PT NO N/V NO S/S OF PAIN.ON F/C URINE FLOW NO HEMATURIA NOTED.
[2024-05-12] MEDS: PANTOPRAZOLE ORAL SUSPENSION 40 MG SUSPDR.PKT GT SCH (05:38)
[2024-05-12 08:00] VITALS: TEMP 98.7
[2024-05-12] MEDS: LINEZOLID 600 MG TABLET PO ONE (08:51)
[2024-05-12 20:00] VITALS: TEMP 99.4
[2024-05-12] MEDS: LINEZOLID 100 MG/5 ML GT SCH (20:55)
[2024-05-13 00:55] VITALS: TEMP 98.9
--- NOTE | 2024-05-13 04:41 | NUR ---
RT PT RECEIVED AND REMAINED ON VENT SUPPORT W/ VENT SETTINGS AT AC,16,VT450,+5. V/S STABLE, NO SIGNS OF RESP DISTRESS. TRACH TUBE PATENT/SECURED.
[2024-05-13 07:45] VITALS: TEMP 98.8
[2024-05-13] MEDS ORDERED: LINEZOLID 600 MG TABLET PO SCH (09:00)
[2024-05-13] MEDS: KETOCONAZOLE 2% SHAMPOO 120 ML BOTTLE TP SCH (09:44)
--- NOTE | 2024-05-13 18:00 | NUR ---
PT CONTINUE ON AVYCAZ 2 GM IVATB Q8 HOURS FOR 7 DAYS FOR FEVER NO A/R NOTED.MIDLINE ON (SIMIN) INTACT, NO N/V AFEBRILE,NO S/S OF PAIN.
[2024-05-13 20:30] VITALS: TEMP 98.7
[2024-05-14] VITALS: BP 115/72; TEMP 98.2; O2SAT 98
[2024-05-14 03:29] VITALS: BP 118/67; TEMP 98.4; O2SAT 99
[2024-05-14 07:51] VITALS: TEMP 98
[2024-05-14 09:35] LABS: BASOPHILS % (AUTO) 0.8 % (0.0-2.0); EOSINOPHILS # (AUTO) 0.4 K/uL (0.0-0.7); EOSINOPHILS % (AUTO) 8.2 % (0.0-7.0); HEMATOCRIT 39.1 % (36.7-47.1); HEMOGLOBIN 13.3 g/dL (12.5-16.3); LYMPHOCYTES # (AUTO) 2.1 K/uL (0.8-4.8); LYMPHOCYTES % (AUTO) 39.8 % (20.5-51.5); MEAN CORPUSCULAR HEMOGLOBIN 32.9 uug (23.8-33.4); MEAN CORPUSCULAR HGB CONC 34 g/dL (32.5-36.3); MONOCYTES # (AUTO) 0.9 K/uL (0.1-1.30); MONOCYTES % (AUTO) 17.5 % (0.0-11.0); NEUTROPHILS # (AUTO) 1.8 K/uL (1.8-8.9); NEUTROPHILS % (AUTO) 33.7 % (38.5-71.5); PLATELET COUNT (AUTO) 314 K/uL (152-348); RED BLOOD CELL COUNT(AUTO) 4.04 MIL/uL (4.06-5.63); RED CELL DISTRIBUTION WIDTH 14.9 % (12.1-16.2); WHITE BLOOD COUNT (AUTO) 5.2 K/uL (3.6-10.2)
[2024-05-14 09:50] LABS: ALBUMIN 3.1 g/dL (3.4-5.0); BILIRUBIN,TOTAL 0.3 mg/dL (0.2-1.0); CALCIUM 9.2 mg/dL (8.5-10.1); CREATININE 0.7 mg/dL (0.6-1.3); POTASSIUM 4.1 mmol/L (3.5-5.1); TOTAL PROTEIN, SERUM 6.9 g/dL (6.4-8.2)
[2024-05-14 10:10] LABS: DIFFERENTIAL COMMENT 1
[2024-05-14 16:05] LABS: EOSINOPHILS % (MANUAL) 11 % (0-8); LYMPHOCYTES % (MANUAL) 38 % (20-40); MONOCYTES % (MANUAL) 18 % (2-10); NEUTROPHILS % (MANUAL) 33 % (42-75); PLATELET ESTIMATE ADEQUATE
[2024-05-14 16:06] LABS: ANISOCYTOSIS 1+; TEAR DROP CELLS 1+
--- NOTE | 2024-05-14 16:24 | NUR ---
PT found on MD ordered vent settings and letty well. No resp distress noted. Vent on and working properly, alarms are on and audible. Trach is patent and secured. Trach care was done without incident. Spare trach along with ambu-bag at bedside.
--- NOTE | 2024-05-14 18:00 | NUR ---
CONTINUE ON AVYCAZ 2 GM IVATB Q8 HRS FOR 7 DAYS FOR FEVER, NO A/R NOTED.MIDLINE ON (SIMIN) INTACT,AFEBRILE ,NO NAUSEA OR VOMITING, NO S/S OF PAIN.
[2024-05-14 20:11] VITALS: TEMP 98.8
--- NOTE | 2024-05-15 06:30 | NUR ---
On Avycaz 2.5 mg IV and Flagyl 500 mg via gtube for fever Tolerated well Afebrile VS remain within normal ranges. SIMIN midline intact and patent. Will continue to monitor. Addendum: 05/15/24 at 2334 by NARGIS CROUCH RN Avycaz 2.5G IV
[2024-05-15 07:25] VITALS: TEMP 98.6
--- NOTE | 2024-05-15 11:30 | NUR ---
SW intake paperwork: Pt's mother, Lizzette, came in person to sign the admissions paperwork: (Patient's right's Acknowledgement, Documentation of Preferred Intensity of Care, Conditions of Admission, CDPH Agreement, and Voluntary Prior Express Consent Form). Lizzette reported no active DNR order for pt. Lizzette stated that the pts code status should be Full Code: Maximum Treatment and CPR. No Advanced Health Care Directive and Conservatorship mentioned at this moment, SW offered more information, but Lizzette was not interested and declined. CHARU offered a copy of the signed paperwork, but Lizzette declined, stating it was not necessary.
--- NOTE | 2024-05-15 12:00 | NUR ---
SW Initial Assessment Completion: SW completed pts initial assessment with pts Lizzette vann. Care plans and Interventions were completed. Pt has been admitted to [facility] since 08/27/2009, subacute unit for treatment and care. Pt is in a vegetative state, using a ventilator due to respiratory failure. Due to changes in health, pt went to the [facility] ED on 04/18/24 and was re-admitted to the subacute unit on 05/10/24 where he will continue to receive care and family visits. Per pts Lizzette vann, pts code status should be Full Code: Maximum Treatment and CPR. Discharge plan: Discharge to a lower level of care when medically appropriate. SW will monitor for any service needs and be available to family and pt as needed.
[2024-05-15 12:08] VITALS: TEMP 98
--- NOTE | 2024-05-15 18:51 | NUR ---
SEEN AND EXAMINED BY KENDAL BROWN,NO NEW ORDERS NOTED.
[2024-05-15 20:00] VITALS: TEMP 99.2
--- NOTE | 2024-05-15 20:02 | NUR ---
ON AVYCAZ 2 GM IVATB Q8 Hs FOR 7 DAYS FOR FEVER, NO A/R NOTED.MIDLINE ON (SIMIN) INTACT,AFEBRILE ,NO NAUSEA OR VOMITING, NO S/S OF PAIN.
[2024-05-16 01:59] VITALS: TEMP 99
--- NOTE | 2024-05-16 02:00 | NUR ---
ON AVYCAZ 2.5 GRAMS IV ANTIBIOTIC, NO ADVERSE REACTIONS NOTED. MIDLINE ON SIMIN IS PATENT AND INTACT. PATIENT IS AFEBRILE, NO SIGNS OF DISTRESS, NO SOB, NO S/S OF PAIN, NO NAUSEA OR VOMITING.
[2024-05-16 07:22] VITALS: TEMP 98.2
--- NOTE | 2024-05-16 07:34 | NUR ---
No noted adverse reaction to Avycaz 2.5g IV for fever. SIMIN midline patent and intact. Will continue monitoring.
[2024-05-16] MEDS ORDERED: NEOMY/BACITRAC/POLYMI OINT 28.35 GM TUBE TOP SCH (09:00)
[2024-05-16] MEDS: NEOMY/BACITRA/POLYMYXIN B OINT UD PACKET TP SCH (09:45)
--- NOTE | 2024-05-16 16:27 | NUR ---
INTERDISCIPLINARY PLAN OF CARE CONFERENCE was held today, 05/16/24. Pts mother and family were not available to participate in the IDT meeting. Dr. Castro and the Interdisciplinary Team reviewed the current plan of care in detail, current orders, treatments and medications were reviewed as well. RN reported on the patient's medical condition. Per Sara CAGLE, pt has no respiratory distress, feeding is tolerated well, no pressure sores, no nausea, no vomiting and no gastric residual. See RN IDT conference notes for more information. Per, RT, OT, PT, Dietary and Pharmacist, no changes were reported in pt's current condition and no new recommendations were mentioned. See all disciplines IDT notes and physician's progress notes for additional information and details.
[2024-05-16 20:28] VITALS: TEMP 99.2
--- NOTE | 2024-05-17 07:20 | NUR ---
PT found on MD ordered vent settings: Vt 450, RR 16, PEEP 5 w/ 2.5 bleed-in and letty well. No resp distress noted. Vent on and working properly, alarms are on and audible. Trach is patent and secured. Trach care was done without incident. Spare trach along with ambu-bag at bedside.
[2024-05-17 07:31] VITALS: TEMP 98
[2024-05-17 19:00] VITALS: TEMP 98.9
--- NOTE | 2024-05-17 19:03 | NUR ---
SEEN AND EXAMINED BY DR DOMINGUEZ,NO NEW ORDERS NOTED.CONTINUE WITH AVYCAX 2.5 MG,NO ADVERSE REACTION NOTED,R UPPER ARM MIDLINE INTACT,NO REDNESS NOTED.
--- NOTE | 2024-05-17 19:35 | NUR ---
RT PATIENT RECEIVED ON HT-50 WITH VENT SETTINGS AC16, VT 450,PEEP 5, FiO2 30%. NO SOB NOTED. AIRWAY PATENT, INTACT, AND SECURE. SPARE TRACH AND AMBU BAG AT BEDSIDE. ALARMS ON AND AUDIBLE.
[2024-05-18 08:00] VITALS: TEMP 98.2
[2024-05-18] MEDS: METRONIDAZOLE 500 MG TABLET GT SCH (08:15)
--- NOTE | 2024-05-18 08:30 | NUR ---
PT.WAS SEEN AND EXAMINED BY DR. LUCIANO BRAGA AND WITH NEW ORDERS CARRIED OUT.
[2024-05-18] MEDS: AVIBACTAM IV SCH (09:58)
[2024-05-18] MEDS: NORMAL SALINE IV SCH (09:58)
[2024-05-18] MEDS: CEFTAZIDIME IV SCH (09:58)
[2024-05-18] MEDS: ONDANSETRON HCL 4 MG TABLET GT PRN (10:55)
--- NOTE | 2024-05-18 14:52 | NUR ---
NO A/R TO IV ATB TX AVYCAX IVPB ,FLAGYL PGT AND ZYVOX VIA GT. AND REMAINS AT THIS TIME AFEBRILE WITH NO S/S OF ACUTE DISTRESS,RT. ARM MIDLINE INTACT AND PATENT,NO S/S OF ACUTE DISTRESS,VENT SETTINGS WELL TOLERATED ,SKIN DRY AND WARM TO TOUCH.
--- NOTE | 2024-05-18 18:44 | NUR ---
PT. MEDICATED X 2 WITH ZOFRAN FOR N/V AND EFFECTIVE ,VERY SENSITIVE GAG REFLEX AFTER BEING TRACH SUCTIONED .
[2024-05-18 20:00] VITALS: TEMP 98.2
--- NOTE | 2024-05-19 01:53 | NUR ---
CONTINUE AVYCAZ 2.5 GM IV 8 HRS FOR 7 DAYS AND CONTINUE FLAGYL 500 MG VIA GT AND ZYVOX 600MG VIA GT NO A/R NOTED.ON MIDLINE ON (SIMIN) KEEP CLEAN AND DRY.PT HAS EPISODE OF N/V ZOFRAN WAS GIVEN VIA GT ORDERED.KEEP CLEAN AND GOOD ORAL HYGIENE.
[2024-05-19 08:00] VITALS: TEMP 99.6
--- NOTE | 2024-05-19 11:00 | NUR ---
DR. MCFARLAND WAS NOTIFIED ABOUT THE EPISODES OF VOMITING AND V/S THIS MORNING FOLLOW: HEART RATE 90X',TEMP. 99.6F,THAT WERE RELIEVED WITH ZOFRAN PRN LAST NIGHT AND YESTERDAY AND ALSO I.D DOCTOR MARIA LUZ WAS PAGED AND AWAITING FOR CALL BACK.
--- NOTE | 2024-05-19 11:00 | NUR ---
ISachin BRAGA WAS PAGED AND MESSAGE LEFT RE: VOMITING EPISODES LAST NIGHT AND YESTERDAY THAT WERE RELIEVED WITH ZOFRAN BUT TODAY HR 90X' AND TEMP 99.6F AND AWAITING FOR RESPONSE.
--- NOTE | 2024-05-19 11:47 | NUR ---
DR MCFARLAND RETURN THE MESSAGE AND WITH NO NEW ORDERS AT THIS TIME.
[2024-05-19] MEDS: ACETAMINOPHEN 650 MG/20 ML UDC- SA PATIENTS-PAIN ONLY GT PRN (16:16)
[2024-05-19 19:48] VITALS: TEMP 98.3
--- NOTE | 2024-05-19 21:19 | NUR ---
Afebrile, no acute distress or vomiting noted. GT feeding tolerating well, afebrile. 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 No adverse reactions noted. Midline on right upper arm is intact and patent, no erythema around the Midline site. turned and repositioned for comfort. Will continue monitor.
[2024-05-20 07:54] VITALS: TEMP 98.7
--- NOTE | 2024-05-20 08:08 | NUR ---
Received patient on ordered vent settings per MD orders. Patients airway is patent and secure at this time..will continue to monitor patient throughout my shift. will suction patient prn for secretions
--- NOTE | 2024-05-20 16:41 | NUR ---
PT. WAS SEEN AND EXAMINED BY VIBHA Bhat (I.D) AND WITH NEW ORDERS ,SHE WAS NOTIFIED THAT DR. DURAN IS THE NEW PRIMARY MD AND NO MORE DR. SANTA.SHE SAID SHE WILL COMMUNICATE TO DR. XAVIER (I.D)SO HE CAN TALK TO HIM ABOUT PLAN OF CARE FOR THE PATIENT.
[2024-05-20] MEDS: NORMAL SALINE IV SCH (17:21)
[2024-05-20] MEDS: CEFTAZIDIME IV SCH (17:21)
[2024-05-20] MEDS: AVIBACTAM IV SCH (17:21)
[2024-05-20] MEDS: LINEZOLID 100 MG/5 ML GT SCH (17:22)
[2024-05-20 20:00] VITALS: TEMP 98.9
--- NOTE | 2024-05-20 23:55 | NUR ---
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 No adverse reactions noted. Afebrile, Midline on right upper arm is intact and patent, no erythema around the Midline site. Turned and repositioned for comfort. Will continue monitor.
[2024-05-21 07:56] VITALS: TEMP 98.3
[2024-05-21] MEDS ORDERED: LINEZOLID 600 MG TABLET GT SCH (17:00)
[2024-05-21] MEDS: LINEZOLID 100 MG/5 ML GT SCH (17:00)
--- NOTE | 2024-05-21 18:42 | NUR ---
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
[2024-05-21 20:00] VITALS: TEMP 98.8
--- NOTE | 2024-05-22 04:48 | NUR ---
Noted no adverse reaction to Avycaz 2.5g IV Flagyl 500mg and Zyvox via gtube for fever. Patient remain afebrile and in stable condition. Continue monitoring.
[2024-05-22 07:24] VITALS: TEMP 97.6
--- NOTE | 2024-05-22 11:15 | NUR ---
CHARU IDT Invitation Note: CHARU emailed pt.'s mother, Lizzette, in regard to the pt.'s IDT meeting on May 30 at 11am. CHARU asked for attendance confirmation on 05/29/24 the latest.
--- NOTE | 2024-05-22 18:00 | NUR ---
NO A/R TO AVYCAZ IV FOR SEPSIS RELATED TO PIZZA CHEF SHUNT ,REMAINS AFEBRILE ,NO N/V.RT. ARM WITH INTACT AND PATENT MIDLINE.
[2024-05-22 19:46] VITALS: TEMP 97.8
--- NOTE | 2024-05-23 00:30 | NUR ---
PT RECEIVED ON VENT. SETTINGS AC16,VT450,PEEP5, 30%FIO2(2.5LPM). NO SIGNS OF SOB/RESPIRATORY DISTRESS ATT, WILL CONTINUE TO MONITOR. PT AIRWAY PATENT AND SECURED. TRACH CARE DONE.
[2024-05-23 07:25] VITALS: TEMP 97.7
[2024-05-23 07:26] VITALS: TEMP 98.5
[2024-05-23 07:28] VITALS: TEMP 98.5
[2024-05-23 11:05] LABS: BASOPHILS % (AUTO) 0.2 % (0.0-2.0); EOSINOPHILS % (AUTO) 0.8 % (0.0-7.0); HEMATOCRIT 39.6 % (36.7-47.1); HEMOGLOBIN 13.2 g/dL (12.5-16.3); LYMPHOCYTES # (AUTO) 0.8 K/uL (0.8-4.8); MEAN CORPUSCULAR HEMOGLOBIN 32.4 uug (23.8-33.4); MEAN CORPUSCULAR HGB CONC 33 g/dL (32.5-36.3); MEAN CORPUSCULAR VOLUME 97.2 fL (73.0-96.2); MONOCYTES # (AUTO) 0.7 K/uL (0.1-1.30); MONOCYTES % (AUTO) 10.7 % (0.0-11.0); NEUTROPHILS # (AUTO) 4.9 K/uL (1.8-8.9); NEUTROPHILS % (AUTO) 75.3 % (38.5-71.5); PLATELET COUNT (AUTO) 212 K/uL (152-348); RED BLOOD CELL COUNT(AUTO) 4.08 MIL/uL (4.06-5.63); RED CELL DISTRIBUTION WIDTH 14.5 % (12.1-16.2); WHITE BLOOD COUNT (AUTO) 6.4 K/uL (3.6-10.2)
[2024-05-23 11:09] LABS: DIFFERENTIAL COMMENT 1
[2024-05-23 11:16] LABS: ALANINE AMINOTRANSFERASE 14 U/L (16-63); ALBUMIN 3.2 g/dL (3.4-5.0); ALKALINE PHOSPHATASE 82 U/L (50-136); ASPARTATE AMINOTRANSFERASE < 5 U/L (15-37); BILIRUBIN,TOTAL 0.4 mg/dL (0.2-1.0); CALCIUM 9.1 mg/dL (8.5-10.1); CARBON DIOXIDE 22 mmol/L (21-32); CHLORIDE 104 mmol/L (98-107); CREATININE 0.6 mg/dL (0.6-1.3); GLUCOSE 195 mg/dL (74-106); POTASSIUM 3.7 mmol/L (3.5-5.1); SODIUM SERUM 139 mmol/L (136-145); TOTAL PROTEIN, SERUM 7.2 g/dL (6.4-8.2); UREA NITROGEN, BLOOD 9 mg/dL (7-18)
--- NOTE | 2024-05-23 18:00 | NUR ---
Seen and examined by Dr Sloan ,no new orders noted,Continue on Ivatb,no adverse reaction noted,midline on the R upper arm intact.
[2024-05-23 20:00] VITALS: TEMP 99.2
--- NOTE | 2024-05-24 04:38 | NUR ---
PT CONTINUE ON ATB IV AVYCAZ Q 8 HRS FOR SEPSIS NO A/R NOTED.ON FLAGYL AND ZYVOX VIA GT. MIDLINE SITE ON (SIMIN) KEEP CLEAN AND DRY.NO N/V NOTED.
[2024-05-24 07:34] VITALS: TEMP 98.5
--- NOTE | 2024-05-24 18:00 | NUR ---
SEEN AND EXAMINED BY DR DOMINGUEZ WITH NEW ORDERS.SEEN AND EXAMINED BY DR HYMAN ,NO NEW ORDERS,CONTINUE ON AVYCAZ IVATB ,LAST DOSE WILL BE AT TOMORROW AT 0100,PT'S MOTHER AWARE ,AND AWARE OF THE NEW ORDERS,SHE WAS REQUESTING IF INSTEAD OF SENDING THE SON TO [facility] ,CAN BE SENT TO [facility] ER IN CASE HE HAS FEVER,WILL INFORM DR DOMINGUEZ.
[2024-05-24 20:00] VITALS: TEMP 97
--- NOTE | 2024-05-25 02:42 | NUR ---
PT RECEIVED ON VENT. SETTINGS AC16,VT450,PEEP5, 30%FIO2(2.5LPM). NO SIGNS OF SOB/RESPIRATORY DISTRESS ATT, WILL CONTINUE TO MONITOR. PT AIRWAY PATENT AND SECURED. TRACH CARE DONE.
[2024-05-25 08:00] VITALS: BP 107/68; TEMP 98.2; TEMP 98.6; O2SAT 99
[2024-05-25 20:00] VITALS: TEMP 98.4
[2024-05-26 08:38] VITALS: TEMP 98.5
[2024-05-26 20:00] VITALS: TEMP 98.8
--- NOTE | 2024-05-27 04:20 | NUR ---
S/p iv Antibiotic therapy for Sepsis, recurrent fever/bacteremia, no adverse reactions noted. Afebrile, fluids given as ordered, kept patient clean and comfortable.
--- NOTE | 2024-05-27 06:01 | NUR ---
Added to change Midline dressing Q 7 days and as needed for soiling.
[2024-05-27 09:02] VITALS: TEMP 98.5
[2024-05-27 20:05] VITALS: TEMP 98.5
[2024-05-27 20:08] VITALS: TEMP 98.5
[2024-05-28 07:40] VITALS: TEMP 99.5
--- NOTE | 2024-05-29 05:30 | NUR ---
NOTED GT PLUGGED. TRIED TO UNCLOGGED BUT UNSUCCESSFUL. RE INSERTED GT 02/03. MD NOTIFIED WITH ORDER FOR KUB TO CHECK PLACEMENT.
[2024-05-29] MEDS ORDERED: DIATR MEGLU/DIATRIZOATE SODIUM 30 ML BOTTLE PO ONE (07:00)
[2024-05-29 07:25] VITALS: TEMP 98.1
--- NOTE | 2024-05-29 08:30 | NUR ---
Received KUB results. Results State good Gtube placement. Charge Nurse aware. Gtube feeding/medication and water flushes to continue as ordered.
--- NOTE | 2024-05-29 14:30 | NUR ---
SEEN AND EXAMINED BY KENDAL BROWN,NO NEW ORDERS.
--- NOTE | 2024-05-29 15:28 | NUR ---
SEEN AND EXAMINED BY DR HYMAN WITH NEW ORDERS NOTED TO DC MIDLINE,DR HYMAN SPOKE TO DR DOMINGUEZ REGARDING THE TRANSFER OF THE PATIENT IF HE HAS FEVER AND NEEDS TO BE HOSPITALIZED TO [facility] INSTEAD OF [facility].PT'S MOTHER ZHANG INFORMED.
[2024-05-29 20:00] VITALS: TEMP 98.6
[2024-05-30 07:25] VITALS: TEMP 97.8
[2024-05-30 20:00] VITALS: TEMP 99.6
[2024-05-31 00:30] VITALS: TEMP 97.2
[2024-05-31 07:40] VITALS: TEMP 97.8
--- NOTE | 2024-05-31 12:31 | NUR ---
INTERDISCIPLINARY PLAN OF CARE CONFERENCE was held on 05/30/24. Pts mother and family were not available to participate in the IDT meeting, meeting invitation was emailed to pt's mother on 05/22/24. Dr. Castro and the Interdisciplinary Team reviewed the current plan of care in detail, current orders, treatments and medications were reviewed as well. RN reported on the patient's medical condition. Per Sara CAGLE, pt has no respiratory distress, feeding is tolerated well, no gastric residual and midline was discontinued. See RN IDT conference notes for more information. Per, RT, OT, PT, Dietary and Pharmacist, no changes were reported in pt's current condition and no new recommendations were mentioned. Per PT, pt appears to have poor rehab potential. See all disciplines IDT notes and physician's progress notes for additional information and details. Per Sara CAGLE, "if patient needs to be hospitalized needs to be transfer to [facility] ER".
[2024-05-31 20:08] VITALS: TEMP 98.4
--- NOTE | 2024-06-01 08:00 | NUR ---
PT. WAS SEEN AND EXAMINED BY VIBHA RAMEY (Darwin) AND WITH FEDERICO.
[2024-06-01 08:03] VITALS: TEMP 98.7
--- NOTE | 2024-06-01 12:00 | NUR ---
PT. WAS SEEN AND EXAMINED BY DR SUTTON AND WITH NNO.
--- NOTE | 2024-06-01 18:00 | NUR ---
PT. AFEBRILE ,COMFORTABLE AND STABLE AND STABLE V/S .
[2024-06-01 20:00] VITALS: TEMP 98.6
--- NOTE | 2024-06-02 07:50 | NUR ---
PT. WAS SEEN AND EXAMINED BY DR. BRAGA AND WITH NNO.
[2024-06-02 07:51] VITALS: TEMP 97.2
--- NOTE | 2024-06-02 16:55 | NUR ---
PT. WAS SEEN AND EXAMINED BY DR. DOMINGUEZ AND WITH NNO.
--- NOTE | 2024-06-02 18:00 | NUR ---
PT. REMAINS AFEBRILE,COMFORTABLE ,STABLE AND STABLE V/S.
[2024-06-02 20:00] VITALS: TEMP 98.4
[2024-06-03 07:51] VITALS: TEMP 97.6
--- NOTE | 2024-06-03 18:57 | NUR ---
PT. REMAINS AFEBRILE ,COMFORTABLE AND STABLE WITH STABLE V/S.
[2024-06-03 20:52] VITALS: TEMP 98.8
[2024-06-04 07:38] VITALS: TEMP 98
--- NOTE | 2024-06-04 18:58 | NUR ---
PT. REMAINS AFEBRILE ,COMFORTABLE AND STABLE WITH STABLE V/S.
[2024-06-04 20:01] VITALS: TEMP 98.3
[2024-06-05 07:34] VITALS: TEMP 98.4
--- NOTE | 2024-06-05 09:00 | NUR ---
PT. WAS SEEN AND EXAMINED BY MARIAJOSE Bhat AND WITH MYRAO.
--- NOTE | 2024-06-05 14:50 | NUR ---
PT. AT THIS TIME REMAINS AFEBRILE STABLE WITH STABLE V/S AND COMFORTABLE.
[2024-06-05 19:58] VITALS: TEMP 98.2
[2024-06-06 08:00] VITALS: TEMP 98.2
[2024-06-06] MEDS ORDERED: NEOMY/BACITRAC/POLYMI OINT 28.35 GM TUBE TOP SCH (09:00)
--- NOTE | 2024-06-06 09:02 | NUR ---
CHARU IDT Invitation Note: CHARU emailed pt.'s mother, Lizzette, in regard to the pt.'s IDT meeting on June 13 at 11am. CHAUR asked for attendance confirmation by 06/12/24 the latest.
[2024-06-06] MEDS: NEOMY/BACITRA/POLYMYXIN B OINT UD PACKET TP SCH (09:04)
--- NOTE | 2024-06-06 17:16 | NUR ---
Seen and examined by Ame Gruber Hydrometallurgical Engineer,no new orders.
[2024-06-06 19:58] VITALS: TEMP 99.2
[2024-06-06 20:10] VITALS: TEMP 98.5
[2024-06-07 08:16] VITALS: TEMP 97.6
[2024-06-07 19:00] VITALS: TEMP 98.5
[2024-06-08 08:26] VITALS: TEMP 97.8
[2024-06-08 20:20] VITALS: TEMP 98.6
[2024-06-09 07:54] VITALS: TEMP 98.4
[2024-06-09 20:00] VITALS: TEMP 98.4
[2024-06-10 07:59] VITALS: TEMP 98.8
[2024-06-10 19:53] VITALS: TEMP 98.8
[2024-06-11 07:38] VITALS: TEMP 98.9
[2024-06-11 20:10] VITALS: TEMP 99.6
[2024-06-11 23:24] VITALS: TEMP 98.6
[2024-06-12 07:26] VITALS: TEMP 97.6
[2024-06-12 19:41] VITALS: TEMP 98.3
--- NOTE | 2024-06-13 07:02 | NUR ---
At around 5am pt had episode of vomiting, adm PRN Zofran.Effective. Kept pt clean, dry and comfortable. Will continue monitoring. Endorsed.
[2024-06-13 07:28] VITALS: TEMP 98.7
--- NOTE | 2024-06-13 09:00 | NUR ---
Patient had x1 episode of vomiting small amt thick consistency like GT formula in color. Keep HOB elevated, no s/s of aspiration. Checked gastric residual, 0 noted at this time. No pain noted. VS 98.7- 68-130/84 O2 sat 99.
--- NOTE | 2024-06-13 10:04 | NUR ---
Seen and examined by Ame Cavanaugh ,aware pt has episodes of vomiting and temp 102,with new orders noted and carried out.
--- NOTE | 2024-06-13 10:35 | NUR ---
Pt, has another episode of vomiting, moderate amt Gt formula like in color and consistency. Administered PRN PRN Zofran via GT as ordered,. Kept, HOB elevated at all times suctioned mouth as needed. No, s/s of aspiration and no gastric residuals. pt clean, dry and kept comfortable. Frequent rooms visits practiced.
--- NOTE | 2024-06-13 12:46 | NUR ---
Dr Bucio called,to inform him regarding patient condition ,will call back.
[2024-06-13] MEDS: ACETAMINOPHEN 650 MG/20 ML UDC- SA PATIENTS-FEVER ONLY GT PRN (12:50)
--- NOTE | 2024-06-13 13:26 | NUR ---
Dr Bucio aware of the new orders from Dr amaya ID,he want to sent the patient to a [facility] where they may do evaluation of the LINEN ROOM HOUSEPERSON shunt .Dr Amaya will talk to Dr Bucio,regarding this matter.
--- NOTE | 2024-06-13 13:30 | NUR ---
Pt's mother Lizzette called back,aware of the patient condition and new orders ,agreed with the plan of care,she is coming to visit his son.
[2024-06-13 13:54] LABS: BASOPHILS % (AUTO) 0.1 % (0.0-2.0); HEMATOCRIT 43.3 % (36.7-47.1); HEMOGLOBIN 14.5 g/dL (12.5-16.3); LYMPHOCYTES # (AUTO) 0.5 K/uL (0.8-4.8); LYMPHOCYTES % (AUTO) 3.4 % (20.5-51.5); MEAN CORPUSCULAR HEMOGLOBIN 32.8 uug (23.8-33.4); MEAN CORPUSCULAR HGB CONC 34 g/dL (32.5-36.3); MEAN CORPUSCULAR VOLUME 97.5 fL (73.0-96.2); MONOCYTES # (AUTO) 0.3 K/uL (0.1-1.30); MONOCYTES % (AUTO) 1.9 % (0.0-11.0); NEUTROPHILS # (AUTO) 14.9 K/uL (1.8-8.9); NEUTROPHILS % (AUTO) 94.6 % (38.5-71.5); PLATELET COUNT (AUTO) 339 K/uL (152-348); RED BLOOD CELL COUNT(AUTO) 4.44 MIL/uL (4.06-5.63); RED CELL DISTRIBUTION WIDTH 13.9 % (12.1-16.2); WHITE BLOOD COUNT (AUTO) 15.7 K/uL (3.6-10.2)
[2024-06-13 14:06] LABS: CALCIUM 9.8 mg/dL (8.5-10.1); CREATININE 0.8 mg/dL (0.6-1.3); POTASSIUM 4.2 mmol/L (3.5-5.1)
[2024-06-13 14:07] LABS: DIFFERENTIAL COMMENT 1
[2024-06-13 14:19] LABS: LACTIC ACID 5.8 mmol/L (0.4-2.0)
--- NOTE | 2024-06-13 16:10 | NUR ---
Seen and examined by Dr Dukes with new orders to start on Ivatb Ceftazidine /Avybactan 2.5 gm iv every 8 hours x 5 days per protocol.Linezolid and Metronidazole via Gt ,pt's mother at bedside.waiting for midline insertion.
--- NOTE | 2024-06-13 19:10 | NUR ---
1754 Noted pt, with facial grimacing 3/10 (pain scale) PRN Tylenol given via GT for comfort and effective. Checked Temp 99.1 Axillary. continued with cooling measures. No, episodes of vomiting at this time. Mother, Lizzette at beside support. 1829 Seen by Fortunato VALADEZ Danny new orders carried out. 1914 Pt, taken for new orders CT head, ABD, and pelvis with contrast.
[2024-06-13 20:26] VITALS: TEMP 100.3
[2024-06-13] MEDS: LINEZOLID 600 MG TABLET GT SCH (20:40)
[2024-06-13 20:44] LABS: BILIRUBIN,DIRECT 0.1 mg/dL (0.0-0.2); BILIRUBIN,TOTAL 0.6 mg/dL (0.2-1.0)
[2024-06-13] MEDS: METRONIDAZOLE 500 MG TABLET GT SCH (20:44)
[2024-06-13] MEDS: AVIBACTAM IV SCH (22:48)
[2024-06-13] MEDS: NORMAL SALINE IV SCH (22:48)
[2024-06-13] MEDS: CEFTAZIDIME IV SCH (22:48)
[2024-06-14] VITALS: TEMP 100
[2024-06-14 04:00] VITALS: TEMP 99.3
--- NOTE | 2024-06-14 04:56 | NUR ---
PT ON TRACH WITH VENT NO SOB DISTRESS NOTED.PT HAD EPISODE OF VOMITING ZOFRAN WAS GIVEN VIA GT Q6 HRS PRN ORDERED.AVYCAZ 2.5 MG IV WAS GIVEN Q 8 HRS ,ZYVOX 600 MG Q 12 HRS AND FLAGYL 500 MG Q8 HRS VIA GT ORDERED NO A/R NOTED. TEMP 99.0 CONTINUE MONITOR FOR N/V KEEP CLEAN AND GOOD ORAL HYGIENE.CONTINUE MONITOR FOR FEVER PER FAMILY AWARE OF DR ROQUE TO TRANSFER TO [facility].
[2024-06-14 07:52] VITALS: TEMP 98.8
[2024-06-14 09:28] LABS: BASOPHILS % (AUTO) 0.2 % (0.0-2.0); HEMOGLOBIN 14.1 g/dL (12.5-16.3); LYMPHOCYTES # (AUTO) 1.7 K/uL (0.8-4.8); LYMPHOCYTES % (AUTO) 10.1 % (20.5-51.5); MEAN CORPUSCULAR HEMOGLOBIN 32.8 uug (23.8-33.4); MEAN CORPUSCULAR HGB CONC 34 g/dL (32.5-36.3); MEAN CORPUSCULAR VOLUME 95.5 fL (73.0-96.2); MONOCYTES % (AUTO) 12.3 % (0.0-11.0); NEUTROPHILS # (AUTO) 12.8 K/uL (1.8-8.9); NEUTROPHILS % (AUTO) 77.4 % (38.5-71.5); PLATELET COUNT (AUTO) 242 K/uL (152-348); RED BLOOD CELL COUNT(AUTO) 4.29 MIL/uL (4.06-5.63); RED CELL DISTRIBUTION WIDTH 14.1 % (12.1-16.2); WHITE BLOOD COUNT (AUTO) 16.6 K/uL (3.6-10.2)
[2024-06-14 10:07] LABS: DIFFERENTIAL COMMENT 1
--- NOTE | 2024-06-14 13:15 | NUR ---
PATIENT NOTED WITH ELEVATED TEMP. 101.5, BP 131/92, PULSE 90 RESP 16, O2 SAT 100%, PAGED AND DISCUSS THE ISSUE WITH DR. DURAN, WITH ORDERS TO TRANSFER PATIENT TO [facility] ER FOR TRANSFER TO [facility] FOR THE WEBSPHERE CONSULTANT SHUT EVALUATION. NOTED AND CARRIED OUT.
--- NOTE | 2024-06-14 13:24 | NUR ---
TRANSFERRED TO ER FOR FURTHER EVALUATION WITHOUT COMPLICATION. PT REMAIN ON VENT HT 50 UNTIL FURTHER NOTICE.
[2024-06-14] MEDS ORDERED: PETR113P TP (14:59)
[2024-06-14] MEDS ORDERED: LINE600I2 GT (14:59)
[2024-06-14] MEDS ORDERED: HYDR1SOL TOP (14:59)
[2024-06-14] MEDS ORDERED: KETO120S5 TP (14:59)
[2024-06-14] MEDS ORDERED: NEOM1OIN19 TP (14:59)
[2024-06-14] MEDS ORDERED: BACL10TA PO (14:59)
--- NOTE | 2024-06-14 16:29 | NUR ---
INTERDISCIPLINARY PLAN OF CARE CONFERENCE was held on 06/13/24. Pts mother and family were not available to participate in the IDT meeting, meeting invitation was emailed to pt's mother on 06/06/24. Dr. Castro and the Interdisciplinary Team reviewed the current plan of care in detail, current orders, treatments and medications were reviewed as well. RN reported on the patient's medical condition. Per RNSara, pt has no respiratory distress, feeding is tolerated well, no gastric residual and pt has episodes of vomiting, temperature was 99.6 on 06/12/24. See RN IDT conference notes for more information. Per, RT, OT, PT, Dietary and Pharmacist, no changes were reported in pt's current condition and no new recommendations were mentioned. Per PT, pt appears to have poor rehab potential. See all disciplines IDT notes and physician's progress notes for additional information and details.
[2024-06-14] MEDS ORDERED: NORMAL SALINE FLUSH 10 ML DISP.SYRIN IV SCH (21:00)
== END 2024-06-21 14:00 | disposition short-term general hospital (02) | DRG 207 ==
LOC: SA 14:50
PROVIDERS: ADMIT Internal Medicine; ATTEND Internal Medicine
PROC: 5A1955Z Respiratory Ventilation, Greater than 96 Consecutive Hours (ICD-10-PCS; principal; 2024-05-10)
PROC: 05HA33Z Insertion of Infusion Device into Left Brachial Vein, Percutaneous Approach (ICD-10-PCS; 2024-06-13)
DX: J96.21 Acute and chronic respiratory failure with hypoxia (principal); G92.8 Other toxic encephalopathy; G91.2 (Idiopathic) normal pressure hydrocephalus; G93.1 Anoxic brain damage, not elsewhere classified; D68.59 Other primary thrombophilia; Z68.1 Body mass index [BMI] 19.9 or less, adult; E44.0 Moderate protein-calorie malnutrition; Z99.11 Dependence on respirator [ventilator] status; E87.20 Acidosis, unspecified; R50.9 Fever, unspecified; R19.7 Diarrhea, unspecified; G40.909 Epilepsy, unspecified, not intractable, without status epilepticus; E88.09 Other disorders of plasma-protein metabolism, not elsewhere classified; R73.9 Hyperglycemia, unspecified; Z93.0 Tracheostomy status; Z98.2 Presence of cerebrospinal fluid drainage device; R13.10 Dysphagia, unspecified; K43.9 Ventral hernia without obstruction or gangrene; K80.20 Calculus of gallbladder without cholecystitis without obstruction; Z88.1 Allergy status to other antibiotic agents; Z93.1 Gastrostomy status; Z86.16 Personal history of COVID-19; Z87.442 Personal history of urinary calculi; Z86.74 Personal history of sudden cardiac arrest; Z91.041 Radiographic dye allergy status; I25.2 Old myocardial infarction; Z74.09 Other reduced mobility; Z93.4 Other artificial openings of gastrointestinal tract status
CPT/HCPCS: 36415; 70030-TC; 71045; 74018; 83605; 85025; 87040; 94002; 94003; 94760; 99082-TC; A6209; C1758; J0714; J1644; J3490; Q0162; Q9963

== ENCOUNTER 2024-06-14 13:25 | Inpatient (IN) | payer MEDICARE, OTHER ==
[~2024-06-14] VITALS: Ht 165.1 cm; Wt 62.1 kg
[~2024-06-14 13:25] MED LIST changes: -ACET650S26 GT
[2024-06-14 14:31] LABS: BASOPHILS % (AUTO) 0.1 % (0.0-2.0); HEMATOCRIT 36.7 % (36.7-47.1); HEMOGLOBIN 12.6 g/dL (12.5-16.3); LYMPHOCYTES % (AUTO) 6.5 % (20.5-51.5); MEAN CORPUSCULAR HEMOGLOBIN 32.9 uug (23.8-33.4); MEAN CORPUSCULAR HGB CONC 34 g/dL (32.5-36.3); MEAN CORPUSCULAR VOLUME 95.9 fL (73.0-96.2); MONOCYTES # (AUTO) 1.4 K/uL (0.1-1.30); MONOCYTES % (AUTO) 9.1 % (0.0-11.0); NEUTROPHILS # (AUTO) 12.7 K/uL (1.8-8.9); NEUTROPHILS % (AUTO) 84.3 % (38.5-71.5); PLATELET COUNT (AUTO) 258 K/uL (152-348); RED BLOOD CELL COUNT(AUTO) 3.83 MIL/uL (4.06-5.63); RED CELL DISTRIBUTION WIDTH 13.7 % (12.1-16.2); WHITE BLOOD COUNT (AUTO) 15.1 K/uL (3.6-10.2)
[2024-06-14 14:34] LABS: CALCIUM 9.3 mg/dL (8.5-10.1); CARBON DIOXIDE 25 mmol/L (21-32); CHLORIDE 101 mmol/L (98-107); CREATININE 0.7 mg/dL (0.6-1.3); DIFFERENTIAL COMMENT 1; GLUCOSE 226 mg/dL (74-106); POTASSIUM 3.5 mmol/L (3.5-5.1); SODIUM SERUM 137 mmol/L (136-145); UREA NITROGEN, BLOOD 13 mg/dL (7-18)
[2024-06-14] MEDS ORDERED: DEXAMETHASONE SOD PHOSPHATE 4 MG INJ ONE ×2 (14:36→14:49)
[2024-06-14] MEDS ORDERED: levoFLOXacin 750MG/D5W 150 ML IV ONE (14:36)
[2024-06-14] MEDS ORDERED: CLINDAMYCIN 600 MG PIGGYBACK**ER OMNI IV ONE (14:37)
[2024-06-14] MEDS: IV NORMAL SALINE 1000 ML BAG IV ONE (14:39)
[2024-06-14 14:47] LABS: ALANINE AMINOTRANSFERASE 20 U/L (16-63); ALBUMIN 3.5 g/dL (3.4-5.0); ALKALINE PHOSPHATASE 78 U/L (50-136); ASPARTATE AMINOTRANSFERASE < 5 U/L (15-37); BILIRUBIN,DIRECT 0.1 mg/dL (0.0-0.2); BILIRUBIN,TOTAL 0.7 mg/dL (0.2-1.0); NT-PRO BNP 585 pg/mL (0-125); TOTAL PROTEIN, SERUM 7.5 g/dL (6.4-8.2)
[2024-06-14] MEDS: DEXAMETHASONE SOD PHOSPHATE 4 MG INJ IV ONE (14:47)
[2024-06-14] MEDS: levoFLOXacin 750MG/D5W 150 ML IV ONE (14:47)
[2024-06-14 14:51] LABS: LACTIC ACID 2.2 mmol/L (0.4-2.0)
[2024-06-14] MEDS ORDERED: NEOM1OIN19 TP (14:59)
[2024-06-14] MEDS ORDERED: HYDR1SOL TOP (14:59)
[2024-06-14] MEDS ORDERED: LINE600I2 GT (14:59)
[2024-06-14] MEDS ORDERED: BACL10TA PO (14:59)
[2024-06-14] MEDS ORDERED: KETO120S5 TP (14:59)
[2024-06-14] MEDS ORDERED: PETR113P TP (14:59)
[2024-06-14] MEDS: CLINDAMYCIN PHOSPHATE IV 600 MG in IV DEXTROSE 5% 100 ML IV ONE (16:45)
[2024-06-14 18:50] LABS: *BILIRUBIN,URIN NEGATIVE (NEGATIVE); *BLOOD, URINE NEGATIVE (NEGATIVE); *CLARITY,URINE CLEAR (CLEAR); *COLOR,URINE YELLOW (YELLOW); *KETONES,URINE NEGATIVE (NEGATIVE); *PROTEIN,URINE TRACE (NEGATIVE); *UROBILINOGEN,URINE 0.2 E.U./dl (NORMAL); LEUKOCYTE ESTERASE ,URINE NEGATIVE (NEGATIVE); NITRITE, URINE NEGATIVE (NEGATIVE); PH,URINE 6.5 (5.0-8.0); UGLUCOSE 2+ (NEGATIVE)
[2024-06-14 19:14] LABS: RBC,URINE NONE SEEN /HPF (0-3)
[2024-06-14 19:15] LABS: BACTERIA,URINE NONE SEEN /HPF (NONE SEEN); CALCIUM OXALATE CRYSTALS,UR FEW /HPF (NONE SEEN); SQUAMOUS EPITHELIAL CELL,UR FEW /HPF (NONE SEEN); WBC,URINE 0-3 /HPF (0-3)
[2024-06-14] MEDS ORDERED: ACETAMINOPHEN 650 MG SUPP.RECT RC ONE (19:58)
[2024-06-14 20:00] VITALS: BP 139/88; TEMP 102.9; O2SAT 95
[2024-06-14] MEDS: ACETAMINOPHEN 650 MG SUPP.RECT RC ONE (20:03)
[2024-06-14] MEDS ORDERED: ALBUTEROL SULFATE 2.5 MG/ 0.5 ML NEBU NEB PRN (21:00)
[2024-06-14] MEDS ORDERED: ACETAMINOPHEN ES 500 MG TABLET- SA PATIENTS-PAIN ONLY GT PRN (21:00)
[2024-06-14] MEDS ORDERED: HOME MED MISCELLANEOUS XX SCH (21:00)
[2024-06-14] MEDS ORDERED: Medication Not On Formulary EA (Acidophilus/Bulgaricus (Floranex Tablet) 1 TAB) GT SCH (21:00)
[2024-06-14] MEDS: IV NS 1000 ML 1,000 ML IV PRN (21:42)
[2024-06-14] MEDS: METRONIDAZOLE 500 MG TABLET GT SCH (21:42)
[2024-06-14] MEDS: HEPARIN SODIUM,PORCINE 5,000 UNITS/ML VIAL SQ SCH (21:42)
[2024-06-14] MEDS ORDERED: LINEZOLID 600 MG/300 ML PIGGYBACK IV ONE (21:51)
[2024-06-14] MEDS: LINEZOLID IV 600 MG in PREMIXED 1 EACH IV SCH (21:56)
[2024-06-14 23:00] VITALS: TEMP 102.1
[2024-06-14] MEDS: ACETAMINOPHEN 325 MG TABLET PO PRN (23:17)
[2024-06-15] VITALS (7 sets, daily range): BP systolic 106–128; BP diastolic 64–89; TEMP 97.4–101.7; O2SAT 99–100
[2024-06-15] MEDS: PANTOPRAZOLE SODIUM 40 MG TABLET.DR PO SCH (05:24)
[2024-06-15 07:51] LABS: BASOPHILS % (AUTO) 0.1 % (0.0-2.0); HEMATOCRIT 32.2 % (36.7-47.1); HEMOGLOBIN 11.3 g/dL (12.5-16.3); LYMPHOCYTES # (AUTO) 1.7 K/uL (0.8-4.8); LYMPHOCYTES % (AUTO) 17.1 % (20.5-51.5); MEAN CORPUSCULAR HEMOGLOBIN 33.5 uug (23.8-33.4); MEAN CORPUSCULAR HGB CONC 35 g/dL (32.5-36.3); MEAN CORPUSCULAR VOLUME 95.1 fL (73.0-96.2); MONOCYTES # (AUTO) 1.5 K/uL (0.1-1.30); MONOCYTES % (AUTO) 15.4 % (0.0-11.0); NEUTROPHILS # (AUTO) 6.7 K/uL (1.8-8.9); NEUTROPHILS % (AUTO) 67.4 % (38.5-71.5); PLATELET COUNT (AUTO) 208 K/uL (152-348); RED BLOOD CELL COUNT(AUTO) 3.39 MIL/uL (4.06-5.63); RED CELL DISTRIBUTION WIDTH 13.6 % (12.1-16.2)
[2024-06-15 07:58] LABS: DIFFERENTIAL COMMENT 1
[2024-06-15] MEDS ORDERED: NORMAL SALINE IV SCH (08:00)
[2024-06-15] MEDS ORDERED: CEFTAZIDIME IV SCH (08:00)
[2024-06-15] MEDS ORDERED: AVIBACTAM IV SCH (08:00)
[2024-06-15 08:03] LABS: CALCIUM 9.2 mg/dL (8.5-10.1); CARBON DIOXIDE 25 mmol/L (21-32); CHLORIDE 105 mmol/L (98-107); CREATININE 0.6 mg/dL (0.6-1.3); GLUCOSE 131 mg/dL (74-106); MAGNESIUM 1.9 mg/dL (1.8-2.4); PHOSPHOROUS 1.7 mg/dL (2.5-4.9); POTASSIUM 3.5 mmol/L (3.5-5.1); SODIUM SERUM 139 mmol/L (136-145); UREA NITROGEN, BLOOD 9 mg/dL (7-18)
[2024-06-15] MEDS: ACIDOPHILUS/BULGARICUS CHEW TAB GT SCH (08:20)
[2024-06-15] MEDS: BACLOFEN 10 MG TABLET GT SCH (08:20)
[2024-06-15] MEDS: JEVITY 1.2 1000 ML LIQUID GT PRN (09:13)
[2024-06-15] MEDS: ACETAMINOPHEN 325 MG TABLET GT PRN (13:16)
[2024-06-15] MEDS: AVIBACTAM IV SCH (13:18)
[2024-06-15] MEDS: CEFTAZIDIME IV SCH (13:18)
[2024-06-15] MEDS: NORMAL SALINE IV SCH (13:18)
[2024-06-15] MEDS: NEUTRA PHOS PACKET GT ONE (16:41)
[2024-06-15 19:59] LABS: ANISOCYTOSIS 1+; LYMPHOCYTES % (MANUAL) 17 % (20-40); MONOCYTES % (MANUAL) 11 % (2-10); NEUTROPHILS % (MANUAL) 72 % (42-75); PLATELET ESTIMATE ADEQUATE
[2024-06-16] VITALS (7 sets, daily range): BP systolic 111–132; BP diastolic 64–77; TEMP 97.8–100.2; O2SAT 93–97
[2024-06-16] MEDS: PANTOPRAZOLE ORAL SUSPENSION 40 MG SUSPDR.PKT GT SCH (05:47)
[2024-06-16 06:38] LABS: ABG BASE EXCESS 0.4 mmol/L (-2.0-3.0); ABG HCO3 23.7 mmol/L (21.0-28.0); ABG PCO2 33.4 mmHg (35.0-48.0); ABG PH 7.469 (7.350-7.450); ABG PO2 81.2 mmHg (83.0-108.0); ABG SITE RIGHT RADIAL; ABG TOTAL HEMOGLOBIN 10.9 G/dL (13.5-17.5); AaDO2 96.7 mmHg; COHb 0.3 % (0.5-1.5); MetHb 0.1 % (0.0-1.5); O2Hb 95.9 % (94.0-98.0); VT, ABG 450 mL
[2024-06-16 08:00] LABS: BASOPHILS % (AUTO) 0.2 % (0.0-2.0); EOSINOPHILS % (AUTO) 0.1 % (0.0-7.0); HEMATOCRIT 31.2 % (36.7-47.1); LYMPHOCYTES # (AUTO) 1.9 K/uL (0.8-4.8); LYMPHOCYTES % (AUTO) 43.2 % (20.5-51.5); MEAN CORPUSCULAR HEMOGLOBIN 33.4 uug (23.8-33.4); MEAN CORPUSCULAR HGB CONC 35 g/dL (32.5-36.3); MEAN CORPUSCULAR VOLUME 95.1 fL (73.0-96.2); MONOCYTES # (AUTO) 0.7 K/uL (0.1-1.30); MONOCYTES % (AUTO) 16.3 % (0.0-11.0); NEUTROPHILS # (AUTO) 1.8 K/uL (1.8-8.9); NEUTROPHILS % (AUTO) 40.2 % (38.5-71.5); PLATELET COUNT (AUTO) 157 K/uL (152-348); RED BLOOD CELL COUNT(AUTO) 3.28 MIL/uL (4.06-5.63); RED CELL DISTRIBUTION WIDTH 13.4 % (12.1-16.2); WHITE BLOOD COUNT (AUTO) 4.4 K/uL (3.6-10.2)
[2024-06-16 08:05] LABS: CALCIUM 8.6 mg/dL (8.5-10.1); CARBON DIOXIDE 26 mmol/L (21-32); CHLORIDE 103 mmol/L (98-107); CREATININE 0.6 mg/dL (0.6-1.3); DIFFERENTIAL COMMENT 1; GLUCOSE 124 mg/dL (74-106); PHOSPHOROUS 2.3 mg/dL (2.5-4.9); SODIUM SERUM 139 mmol/L (136-145); UREA NITROGEN, BLOOD 11 mg/dL (7-18)
[2024-06-16 08:10] LABS: C-REACTIVE PROTEIN 0.61 mg/dL (0.00-0.30)
[2024-06-16] MEDS: POTASSIUM CHLORIDE 20 MEQ POWDER PACKET GT ONE (10:16)
[2024-06-16] MEDS: POTASSIUM PHOSPHATE MM 15 MMOL in IV NORMAL SALINE 250 ML IV ONE (11:29)
[2024-06-16 13:32] LABS: LYMPHOCYTES % (MANUAL) 44 % (20-40); MONOCYTES % (MANUAL) 16 % (2-10); NEUTROPHILS % (MANUAL) 40 % (42-75)
[2024-06-16 13:33] LABS: ANISOCYTOSIS 1+; PLATELET ESTIMATE ADEQUATE
[2024-06-17] VITALS (7 sets, daily range): BP systolic 99–129; BP diastolic 58–79; TEMP 97.7–99.6; O2SAT 96–100
[2024-06-17 07:49] LABS: BASOPHILS % (AUTO) 0.3 % (0.0-2.0); EOSINOPHILS # (AUTO) 0.1 K/uL (0.0-0.7); EOSINOPHILS % (AUTO) 1.2 % (0.0-7.0); HEMATOCRIT 34.2 % (36.7-47.1); HEMOGLOBIN 11.8 g/dL (12.5-16.3); LYMPHOCYTES % (AUTO) 45.7 % (20.5-51.5); MEAN CORPUSCULAR HEMOGLOBIN 33.2 uug (23.8-33.4); MEAN CORPUSCULAR HGB CONC 34 g/dL (32.5-36.3); MEAN CORPUSCULAR VOLUME 96.6 fL (73.0-96.2); MONOCYTES # (AUTO) 0.7 K/uL (0.1-1.30); MONOCYTES % (AUTO) 15.6 % (0.0-11.0); NEUTROPHILS # (AUTO) 1.6 K/uL (1.8-8.9); NEUTROPHILS % (AUTO) 37.2 % (38.5-71.5); PLATELET COUNT (AUTO) 174 K/uL (152-348); RED BLOOD CELL COUNT(AUTO) 3.54 MIL/uL (4.06-5.63); RED CELL DISTRIBUTION WIDTH 13.8 % (12.1-16.2); WHITE BLOOD COUNT (AUTO) 4.4 K/uL (3.6-10.2)
[2024-06-17 07:53] LABS: DIFFERENTIAL COMMENT 1
[2024-06-17 08:00] LABS: CALCIUM 8.8 mg/dL (8.5-10.1); CARBON DIOXIDE 26 mmol/L (21-32); CHLORIDE 108 mmol/L (98-107); CREATININE 0.5 mg/dL (0.6-1.3); GLUCOSE 128 mg/dL (74-106); MAGNESIUM 2.3 mg/dL (1.8-2.4); PHOSPHOROUS 3.6 mg/dL (2.5-4.9); POTASSIUM 3.8 mmol/L (3.5-5.1); SODIUM SERUM 141 mmol/L (136-145); UREA NITROGEN, BLOOD 9 mg/dL (7-18)
[2024-06-17 17:04] LABS: ANISOCYTOSIS 1+; LYMPHOCYTES % (MANUAL) 48 % (20-40); MONOCYTES % (MANUAL) 12 % (2-10); NEUTROPHILS % (MANUAL) 40 % (42-75); PLATELET ESTIMATE ADEQUATE
[2024-06-17 17:05] LABS: TEAR DROP CELLS OCC
[2024-06-18] VITALS (8 sets, daily range): BP systolic 102–126; BP diastolic 61–78; TEMP 97.9–98.9; O2SAT 93–100
[2024-06-18 06:24] LABS: BASOPHILS % (AUTO) 0.2 % (0.0-2.0); EOSINOPHILS # (AUTO) 0.2 K/uL (0.0-0.7); EOSINOPHILS % (AUTO) 2.7 % (0.0-7.0); HEMATOCRIT 33.6 % (36.7-47.1); HEMOGLOBIN 11.5 g/dL (12.5-16.3); LYMPHOCYTES # (AUTO) 1.9 K/uL (0.8-4.8); LYMPHOCYTES % (AUTO) 26.6 % (20.5-51.5); MEAN CORPUSCULAR HEMOGLOBIN 32.9 uug (23.8-33.4); MEAN CORPUSCULAR HGB CONC 34 g/dL (32.5-36.3); MONOCYTES # (AUTO) 0.6 K/uL (0.1-1.30); MONOCYTES % (AUTO) 8.8 % (0.0-11.0); NEUTROPHILS # (AUTO) 4.3 K/uL (1.8-8.9); NEUTROPHILS % (AUTO) 61.7 % (38.5-71.5); PLATELET COUNT (AUTO) 187 K/uL (152-348); RED CELL DISTRIBUTION WIDTH 13.5 % (12.1-16.2)
[2024-06-18 06:32] LABS: DIFFERENTIAL COMMENT 1
[2024-06-18 06:35] LABS: CALCIUM 8.8 mg/dL (8.5-10.1); CARBON DIOXIDE 26 mmol/L (21-32); CHLORIDE 104 mmol/L (98-107); CREATININE 0.6 mg/dL (0.6-1.3); GLUCOSE 132 mg/dL (74-106); MAGNESIUM 2.1 mg/dL (1.8-2.4); PHOSPHOROUS 3.5 mg/dL (2.5-4.9); POTASSIUM 3.7 mmol/L (3.5-5.1); SODIUM SERUM 139 mmol/L (136-145); UREA NITROGEN, BLOOD 8 mg/dL (7-18)
[2024-06-18] MEDS: LINEZOLID 600 MG TABLET GT SCH (20:40)
[2024-06-18] MEDS ORDERED: LINEZOLID 600 MG TABLET PO SCH (21:00)
[2024-06-19 03:51] VITALS: BP 102/65; TEMP 98.7; O2SAT 99
[2024-06-19 07:34] VITALS: BP 106/70; TEMP 98.8; O2SAT 97
[2024-06-19 09:56] LABS: BASOPHILS # (AUTO) 0.2 K/UL (0.0-0.2); BASOPHILS % (AUTO) 3.3 % (0.0-2.0); EOSINOPHILS # (AUTO) 0.3 K/uL (0.0-0.7); EOSINOPHILS % (AUTO) 5.1 % (0.0-7.0); HEMATOCRIT 35.8 % (36.7-47.1); HEMOGLOBIN 12.2 g/dL (12.5-16.3); LYMPHOCYTES # (AUTO) 0.9 K/uL (0.8-4.8); LYMPHOCYTES % (AUTO) 13.3 % (20.5-51.5); MEAN CORPUSCULAR HEMOGLOBIN 33.1 uug (23.8-33.4); MEAN CORPUSCULAR HGB CONC 34 g/dL (32.5-36.3); MEAN CORPUSCULAR VOLUME 97.3 fL (73.0-96.2); MONOCYTES # (AUTO) 0.5 K/uL (0.1-1.30); MONOCYTES % (AUTO) 7.5 % (0.0-11.0); NEUTROPHILS # (AUTO) 4.8 K/uL (1.8-8.9); NEUTROPHILS % (AUTO) 70.8 % (38.5-71.5); PLATELET COUNT (AUTO) 139 K/uL (152-348); RED BLOOD CELL COUNT(AUTO) 3.68 MIL/uL (4.06-5.63); RED CELL DISTRIBUTION WIDTH 13.7 % (12.1-16.2); WHITE BLOOD COUNT (AUTO) 6.7 K/uL (3.6-10.2)
[2024-06-19 09:58] LABS: CARBON DIOXIDE 26 mmol/L (21-32); CHLORIDE 105 mmol/L (98-107); CREATININE 0.5 mg/dL (0.6-1.3); GLUCOSE 130 mg/dL (74-106); POTASSIUM 4.2 mmol/L (3.5-5.1); SODIUM SERUM 139 mmol/L (136-145); UREA NITROGEN, BLOOD 6 mg/dL (7-18)
[2024-06-19 09:59] LABS: DIFFERENTIAL COMMENT 1
[2024-06-19 11:37] VITALS: BP 117/59; TEMP 98.2; O2SAT 98
[2024-06-19 15:44] VITALS: BP 91/52; TEMP 98.7; O2SAT 95
[2024-06-19 21:08] VITALS: BP 98/58; TEMP 100.3; O2SAT 98
[2024-06-20 00:31] VITALS: BP 110/68; TEMP 97.8
[2024-06-20 04:01] VITALS: BP 97/52; TEMP 98.5; O2SAT 99
[2024-06-20 07:35] VITALS: BP 102/64; TEMP 98.2; O2SAT 99
[2024-06-20 11:01] VITALS: BP 99/66; TEMP 98.4; O2SAT 99
[2024-06-20 15:14] VITALS: BP 93/51; TEMP 98.2; O2SAT 98
[2024-06-20 20:00] VITALS: BP 11/67; TEMP 99.3; O2SAT 95
[2024-06-21] VITALS: BP 111/73; TEMP 98.4; O2SAT 98
[2024-06-21 04:26] VITALS: BP 112/70; TEMP 98.2; O2SAT 100
[2024-06-21 07:27] VITALS: BP 115/71; TEMP 98.4; O2SAT 100
[2024-06-21 11:09] VITALS: BP 137/89; TEMP 98.7; O2SAT 97
[2024-06-21 12:11] LABS: BASOPHILS % (AUTO) 0.4 % (0.0-2.0); EOSINOPHILS # (AUTO) 0.2 K/uL (0.0-0.7); EOSINOPHILS % (AUTO) 5.5 % (0.0-7.0); HEMATOCRIT 36.4 % (36.7-47.1); HEMOGLOBIN 12.3 g/dL (12.5-16.3); LYMPHOCYTES # (AUTO) 1.3 K/uL (0.8-4.8); LYMPHOCYTES % (AUTO) 30.2 % (20.5-51.5); MEAN CORPUSCULAR HGB CONC 34 g/dL (32.5-36.3); MEAN CORPUSCULAR VOLUME 97.9 fL (73.0-96.2); MONOCYTES # (AUTO) 0.5 K/uL (0.1-1.30); MONOCYTES % (AUTO) 10.8 % (0.0-11.0); NEUTROPHILS # (AUTO) 2.3 K/uL (1.8-8.9); NEUTROPHILS % (AUTO) 53.1 % (38.5-71.5); PLATELET COUNT (AUTO) 191 K/uL (152-348); RED BLOOD CELL COUNT(AUTO) 3.72 MIL/uL (4.06-5.63); RED CELL DISTRIBUTION WIDTH 14.1 % (12.1-16.2); WHITE BLOOD COUNT (AUTO) 4.4 K/uL (3.6-10.2)
[2024-06-21 12:12] LABS: DIFFERENTIAL COMMENT 1
[2024-06-21 14:59] VITALS: BP 110/63; TEMP 98.5; O2SAT 99
[2024-06-21 20:40] VITALS: BP 110/71; TEMP 98.3; O2SAT 100
[2024-06-21 22:25] LABS: CALCIUM 8.9 mg/dL (8.5-10.1); CARBON DIOXIDE 26 mmol/L (21-32); CHLORIDE 106 mmol/L (98-107); CREATININE 0.6 mg/dL (0.6-1.3); GLUCOSE 126 mg/dL (74-106); MAGNESIUM 2.1 mg/dL (1.8-2.4); PHOSPHOROUS 4.4 mg/dL (2.5-4.9); POTASSIUM 3.9 mmol/L (3.5-5.1); SODIUM SERUM 139 mmol/L (136-145); UREA NITROGEN, BLOOD 7 mg/dL (7-18)
[2024-06-22 00:41] VITALS: BP 94/61; TEMP 98.6; O2SAT 100
[2024-06-22 04:20] VITALS: BP 99/65; TEMP 97.9; O2SAT 98
[2024-06-22 07:39] VITALS: BP 117/69; TEMP 97.6; O2SAT 99
[2024-06-22 08:38] LABS: BASOPHILS % (AUTO) 0.3 % (0.0-2.0); EOSINOPHILS # (AUTO) 0.2 K/uL (0.0-0.7); EOSINOPHILS % (AUTO) 4.4 % (0.0-7.0); HEMATOCRIT 35.7 % (36.7-47.1); HEMOGLOBIN 11.9 g/dL (12.5-16.3); LYMPHOCYTES # (AUTO) 1.4 K/uL (0.8-4.8); LYMPHOCYTES % (AUTO) 34.5 % (20.5-51.5); MEAN CORPUSCULAR HEMOGLOBIN 32.7 uug (23.8-33.4); MEAN CORPUSCULAR HGB CONC 33 g/dL (32.5-36.3); MEAN CORPUSCULAR VOLUME 98.2 fL (73.0-96.2); MONOCYTES # (AUTO) 0.6 K/uL (0.1-1.30); MONOCYTES % (AUTO) 14.5 % (0.0-11.0); NEUTROPHILS # (AUTO) 1.9 K/uL (1.8-8.9); NEUTROPHILS % (AUTO) 46.3 % (38.5-71.5); PLATELET COUNT (AUTO) 222 K/uL (152-348); RED BLOOD CELL COUNT(AUTO) 3.63 MIL/uL (4.06-5.63); RED CELL DISTRIBUTION WIDTH 13.9 % (12.1-16.2); WHITE BLOOD COUNT (AUTO) 4.1 K/uL (3.6-10.2)
[2024-06-22 08:50] LABS: DIFFERENTIAL COMMENT 1
[2024-06-22 08:56] LABS: CALCIUM 9.1 mg/dL (8.5-10.1); CARBON DIOXIDE 26 mmol/L (21-32); CHLORIDE 105 mmol/L (98-107); CREATININE 0.6 mg/dL (0.6-1.3); GLUCOSE 107 mg/dL (74-106); MAGNESIUM 2.1 mg/dL (1.8-2.4); PHOSPHOROUS 4.7 mg/dL (2.5-4.9); POTASSIUM 4.2 mmol/L (3.5-5.1); SODIUM SERUM 141 mmol/L (136-145); UREA NITROGEN, BLOOD 9 mg/dL (7-18)
[2024-06-22 11:09] VITALS: BP 102/64; TEMP 97.6; O2SAT 98
[2024-06-22 15:46] VITALS: BP 103/57; TEMP 98; O2SAT 99
[2024-06-22 20:00] VITALS: BP 88/55; TEMP 98.2; O2SAT 97
[2024-06-22] MEDS: HEPARIN SODIUM,PORCINE 5,000 UNITS/ML VIAL SQ SCH (21:44)
[2024-06-23] VITALS: BP 92/30; TEMP 98.4; O2SAT 100
[2024-06-23 04:00] VITALS: BP 97/61; TEMP 97.7; O2SAT 98
[2024-06-23 07:12] LABS: BASOPHILS % (AUTO) 0.5 % (0.0-2.0); EOSINOPHILS # (AUTO) 0.2 K/uL (0.0-0.7); EOSINOPHILS % (AUTO) 3.7 % (0.0-7.0); HEMATOCRIT 34.7 % (36.7-47.1); HEMOGLOBIN 11.8 g/dL (12.5-16.3); LYMPHOCYTES # (AUTO) 1.9 K/uL (0.8-4.8); LYMPHOCYTES % (AUTO) 42.2 % (20.5-51.5); MEAN CORPUSCULAR HEMOGLOBIN 33.4 uug (23.8-33.4); MEAN CORPUSCULAR HGB CONC 34 g/dL (32.5-36.3); MEAN CORPUSCULAR VOLUME 98.2 fL (73.0-96.2); MONOCYTES # (AUTO) 0.7 K/uL (0.1-1.30); MONOCYTES % (AUTO) 14.1 % (0.0-11.0); NEUTROPHILS # (AUTO) 1.8 K/uL (1.8-8.9); NEUTROPHILS % (AUTO) 39.5 % (38.5-71.5); PLATELET COUNT (AUTO) 195 K/uL (152-348); RED BLOOD CELL COUNT(AUTO) 3.53 MIL/uL (4.06-5.63); RED CELL DISTRIBUTION WIDTH 13.9 % (12.1-16.2); WHITE BLOOD COUNT (AUTO) 4.6 K/uL (3.6-10.2)
[2024-06-23 07:18] LABS: DIFFERENTIAL COMMENT 1
[2024-06-23 07:35] LABS: CALCIUM 9.1 mg/dL (8.5-10.1); CARBON DIOXIDE 26 mmol/L (21-32); CHLORIDE 106 mmol/L (98-107); CREATININE 0.5 mg/dL (0.6-1.3); GLUCOSE 117 mg/dL (74-106); MAGNESIUM 2.1 mg/dL (1.8-2.4); PHOSPHOROUS 4.3 mg/dL (2.5-4.9); POTASSIUM 4.4 mmol/L (3.5-5.1); SODIUM SERUM 141 mmol/L (136-145); UREA NITROGEN, BLOOD 9 mg/dL (7-18)
[2024-06-23 08:08] VITALS: BP 99/60; TEMP 98.1; O2SAT 99
[2024-06-23 10:58] VITALS: BP 115/62; TEMP 98.1; O2SAT 99
[2024-06-23] MEDS ORDERED: CEFT2.5V IV (13:58)
[2024-06-23] MEDS ORDERED: LINE600I2 GT (13:58)
[2024-06-23] MEDS ORDERED: METR500T GT (13:58)
[2024-06-23 15:20] VITALS: BP 107/66; TEMP 98.2; O2SAT 99
== END 2024-06-23 15:25 | DRG 91 ==
LOC: ER 13:25 → UNDOADMIN 19:09 → TRANSITION 19:09 → DOU3 20:20 → TELE-TD3 21:23 → TELE3 06-18 12:00
PROVIDERS: ADMIT Nurse Practitioner Acute Care; ATTEND Nurse Practitioner Acute Care
PROC: 5A1955Z Respiratory Ventilation, Greater than 96 Consecutive Hours (ICD-10-PCS; principal; 2024-06-14)
DX: T85.730A Infection and inflammatory reaction due to ventricular intracranial (communicating) shunt, initial encounter (principal); A41.9 Sepsis, unspecified organism; G93.41 Metabolic encephalopathy; R53.2 Functional quadriplegia; J96.21 Acute and chronic respiratory failure with hypoxia; G92.8 Other toxic encephalopathy; G93.1 Anoxic brain damage, not elsewhere classified; Z99.11 Dependence on respirator [ventilator] status; G91.2 (Idiopathic) normal pressure hydrocephalus; D68.59 Other primary thrombophilia; Y75.1 Therapeutic (nonsurgical) and rehabilitative neurological devices associated with adverse incidents; Y92.238 Other place in hospital as the place of occurrence of the external cause; Z98.2 Presence of cerebrospinal fluid drainage device; R13.10 Dysphagia, unspecified; K21.9 Gastro-esophageal reflux disease without esophagitis; K80.20 Calculus of gallbladder without cholecystitis without obstruction; K43.9 Ventral hernia without obstruction or gangrene; Z88.1 Allergy status to other antibiotic agents; Z91.041 Radiographic dye allergy status; Z93.0 Tracheostomy status; Z86.16 Personal history of COVID-19; Z86.74 Personal history of sudden cardiac arrest; Z93.4 Other artificial openings of gastrointestinal tract status; G40.909 Epilepsy, unspecified, not intractable, without status epilepticus; Z79.899 Other long term (current) drug therapy; E78.1 Pure hyperglyceridemia
CPT/HCPCS: 36415; 36600; 70030-TC; 70460; 71045; 83605; 83735; 84100; 84484; 85025; 85730; 86140; 87040; 93005; 94002; 94003; 94760; A4606; A4663; A6209; A6213; G0378; J0714; J1100; J1644; J1956; J2020; J3490; J7040; Q9967

== ENCOUNTER 2024-06-23 16:15 | Inpatient (IN) | payer MEDICARE, OTHER ==
[~2024-06-23] VITALS: Ht 165.1 cm; Wt 50.3 kg
[~2024-06-23 16:15] MED LIST changes: -HYDR-3972 GT; +HYDR1SOL TOP; +KETO120S5 TP; +LINE600I2 GT; -LINE600T15 GT; +NEOM1OIN19 TP; +PETR113P TP
[2024-06-23] MEDS ORDERED: ALBUTEROL SULFATE 2.5 MG/ 0.5 ML NEBU NEB PRN (18:15)
[2024-06-23] MEDS ORDERED: BISACODYL 10 MG SUPP.RECT RC PRN (18:15)
[2024-06-23 19:56] VITALS: TEMP 98.2
[2024-06-23] MEDS: ACIDOPHILUS/BULGARICUS CHEW TAB GT SCH (21:19)
[2024-06-23] MEDS: METRONIDAZOLE 500 MG TABLET GT SCH (21:20)
[2024-06-23] MEDS: REMEDY ESSENTIAL ZINC PASTE 113 GM TOP SCH (21:20)
[2024-06-23] MEDS: BACLOFEN 10 MG TABLET GT SCH (21:20)
[2024-06-23] MEDS: HEPARIN SODIUM,PORCINE 5,000 UNITS/ML VIAL SQ SCH (21:24)
[2024-06-23] MEDS: LINEZOLID 600 MG TABLET GT SCH (21:24)
[2024-06-23] MEDS: METOCLOPRAMIDE HCL 10 MG TABLET PO PRN (21:25)
[2024-06-23] MEDS: CEFTAZIDIME IV SCH (22:40)
[2024-06-23] MEDS: AVIBACTAM IV SCH (22:40)
[2024-06-23] MEDS: NORMAL SALINE IV SCH (22:40)
[2024-06-24 03:29] VITALS: TEMP 98.1
[2024-06-24] MEDS ORDERED: METOCLOPRAMIDE HCL 10 MG TABLET GT PRN (04:30)
[2024-06-24] MEDS: CHOLECALCIFEROL 1,000 UNIT TABLET GT SCH (05:28)
[2024-06-24] MEDS: PANTOPRAZOLE ORAL SUSPENSION 40 MG SUSPDR.PKT GT SCH (05:28)
[2024-06-24 07:54] VITALS: TEMP 98.7
[2024-06-24] MEDS ORDERED: BISACODYL 10 MG SUPP.RECT RC PRN (11:15)
[2024-06-24] MEDS ORDERED: HYDROGEN PEROXIDE 3% 118 ML BOTTLE TP PRN (11:15)
[2024-06-24] MEDS: ACETAMINOPHEN 650 MG/20 ML UDC- SA PATIENTS-PAIN ONLY GT PRN (18:53)
[2024-06-24] MEDS: JEVITY 1.2 1000 ML LIQUID GT PRN (20:23)
[2024-06-24 20:35] VITALS: TEMP 99.2
[2024-06-24] MEDS: HYDROGEN PEROXIDE 3% 118 ML BOTTLE TP SCH (20:55)
[2024-06-24 23:58] VITALS: TEMP 97.4
[2024-06-25 04:16] VITALS: TEMP 97.5
[2024-06-25 07:34] VITALS: TEMP 98.3
[2024-06-25 10:20] VITALS: O2SAT 100
[2024-06-25] MEDS: ONDANSETRON HCL 4 MG TABLET GT PRN (10:27)
[2024-06-25 20:21] VITALS: TEMP 99.6
[2024-06-26 07:28] VITALS: TEMP 99
[2024-06-26] MEDS: PANTOPRAZOLE ORAL SUSPENSION 40 MG SUSPDR.PKT GT SCH (09:45)
[2024-06-26 20:21] VITALS: TEMP 96.3
[2024-06-27 07:23] VITALS: TEMP 97.5
[2024-06-27 19:57] VITALS: TEMP 98.8
[2024-06-28] MEDS: ESOMEPRAZOLE MAGNESIUM 40 MG SUSPDR.PKT GT SCH (05:49)
[2024-06-28 07:25] VITALS: TEMP 101.8
[2024-06-28] MEDS: ACETAMINOPHEN 650 MG/20 ML UDC- SA PATIENTS-FEVER ONLY GT PRN (08:00)
[2024-06-28 20:13] VITALS: TEMP 99.6
[2024-06-28 21:30] VITALS: TEMP 102
[2024-06-28 22:55] VITALS: TEMP 99.1
[2024-06-29 01:07] LABS: *BILIRUBIN,URIN NEGATIVE (NEGATIVE); *CLARITY,URINE CLEAR (CLEAR); *COLOR,URINE YELLOW (YELLOW); *KETONES,URINE NEGATIVE (NEGATIVE); *PROTEIN,URINE NEGATIVE (NEGATIVE); *UROBILINOGEN,URINE 0.2 E.U./dl (NORMAL); LEUKOCYTE ESTERASE ,URINE NEGATIVE (NEGATIVE); NITRITE, URINE NEGATIVE (NEGATIVE); PH,URINE 5.5 (5.0-8.0); UGLUCOSE NEGATIVE (NEGATIVE)
[2024-06-29 01:13] LABS: *BLOOD, URINE TRACE (NEGATIVE); BACTERIA,URINE NONE SEEN /HPF (NONE SEEN); RBC,URINE 0-3 /HPF (0-3); SQUAMOUS EPITHELIAL CELL,UR NONE SEEN /HPF (NONE SEEN); WBC,URINE NONE SEEN /HPF (0-3)
[2024-06-29 03:01] VITALS: TEMP 98.9
[2024-06-29 07:49] LABS: BASOPHILS % (AUTO) 0.5 % (0.0-2.0); EOSINOPHILS % (AUTO) 0.1 % (0.0-7.0); HEMATOCRIT 41.3 % (36.7-47.1); HEMOGLOBIN 14.2 g/dL (12.5-16.3); LYMPHOCYTES # (AUTO) 2.2 K/uL (0.8-4.8); LYMPHOCYTES % (AUTO) 26.7 % (20.5-51.5); MEAN CORPUSCULAR HEMOGLOBIN 33.4 uug (23.8-33.4); MEAN CORPUSCULAR HGB CONC 34 g/dL (32.5-36.3); MEAN CORPUSCULAR VOLUME 97.4 fL (73.0-96.2); MONOCYTES # (AUTO) 1.3 K/uL (0.1-1.30); MONOCYTES % (AUTO) 15.2 % (0.0-11.0); NEUTROPHILS # (AUTO) 4.7 K/uL (1.8-8.9); NEUTROPHILS % (AUTO) 57.5 % (38.5-71.5); PLATELET COUNT (AUTO) 234 K/uL (152-348); RED BLOOD CELL COUNT(AUTO) 4.24 MIL/uL (4.06-5.63); RED CELL DISTRIBUTION WIDTH 14.5 % (12.1-16.2); WHITE BLOOD COUNT (AUTO) 8.2 K/uL (3.6-10.2)
[2024-06-29 08:00] VITALS: TEMP 100.9
[2024-06-29 08:04] LABS: ALANINE AMINOTRANSFERASE 19 U/L (16-63); ALBUMIN 3.7 g/dL (3.4-5.0); ALKALINE PHOSPHATASE 79 U/L (50-136); ASPARTATE AMINOTRANSFERASE 10 U/L (15-37); BILIRUBIN,TOTAL 0.5 mg/dL (0.2-1.0); C-REACTIVE PROTEIN 0.06 mg/dL (0.00-0.30); CALCIUM 9.4 mg/dL (8.5-10.1); CARBON DIOXIDE 24 mmol/L (21-32); CHLORIDE 101 mmol/L (98-107); CREATININE 0.6 mg/dL (0.6-1.3); GLUCOSE 129 mg/dL (74-106); MAGNESIUM 2.3 mg/dL (1.8-2.4); PHOSPHOROUS 3.8 mg/dL (2.5-4.9); POTASSIUM 4.1 mmol/L (3.5-5.1); SODIUM SERUM 135 mmol/L (136-145); TOTAL PROTEIN, SERUM 7.6 g/dL (6.4-8.2); UREA NITROGEN, BLOOD 12 mg/dL (7-18)
[2024-06-29 08:24] LABS: DIFFERENTIAL COMMENT 1
[2024-06-29 12:00] VITALS: TEMP 99.8
[2024-06-29 14:41] LABS: BAND % (MANUAL) 3 % (0-10); LYMPHOCYTES % (MANUAL) 22 % (20-40); NEUTROPHILS % (MANUAL) 60 % (42-75)
[2024-06-29 14:42] LABS: MONOCYTES % (MANUAL) 15 % (2-10)
[2024-06-29] MEDS: POLYVINYL ALCOHOL OPHT DROPS 15 ML BOTTLE EACHEYE SCH (17:11)
[2024-06-29 19:57] VITALS: TEMP 100.8
[2024-06-29 23:00] VITALS: TEMP 98
[2024-06-30 04:22] VITALS: TEMP 98.5
[2024-06-30 07:40] VITALS: TEMP 98.5
[2024-06-30 20:00] VITALS: TEMP 98.6
[2024-07-01 07:38] VITALS: TEMP 98.6
[2024-07-01 19:53] VITALS: TEMP 98.7
[2024-07-02 07:23] VITALS: TEMP 98.8
[2024-07-02 20:06] VITALS: TEMP 98.8
[2024-07-03 07:21] VITALS: TEMP 97.8
[2024-07-03 14:00] VITALS: TEMP 98
[2024-07-03 19:49] VITALS: TEMP 98.2
[2024-07-04 07:23] VITALS: TEMP 97.6
[2024-07-04 20:00] VITALS: TEMP 97.8
[2024-07-04 20:06] LABS: ADENOVIRUS Not Detected (Not Detected); CORONAVIRUS 229E Not Detected (Not Detected); CORONAVIRUS HKU1 Not Detected (Not Detected); CORONAVIRUS NL63 Not Detected (Not Detected); CORONAVIRUS OC43 Not Detected (Not Detected); NP BORDETELLA PERTUSIS Not Detected (Not Detected); NP CHLAMYDOPHILA PNEUMONIAE Not Detected (Not Detected); NP HUMAN METAPNEUMOVIRUS Not Detected (Not Detected); NP HUMAN RHINO/ENTERO VIRUS Not Detected (Not Detected); NP INFLUENZA A Not Detected (Not Detected); NP INFLUENZA A/H1 Not Detected (Not Detected); NP INFLUENZA A/H1-2009 Not Detected (Not Detected); NP INFLUENZA A/H3 Not Detected (Not Detected); NP INFLUENZA B Not Detected (Not Detected); NP MYCOPLASMA PNEUMONIAE Not Detected (Not Detected); NP PARAINFLUENZA 1 Not Detected (Not Detected); NP PARAINFLUENZA 2 Not Detected (Not Detected); NP PARAINFLUENZA 3 Not Detected (Not Detected); NP PARAINFLUENZA 4 Not Detected (Not Detected); NP RESPIRATORY SYNCYTIAL VIRUS Not Detected (Not Detected)
[2024-07-04] MEDS: REMEDY ESSENTIAL ZINC PASTE 113 GM TOP SCH (20:18)
[2024-07-05 20:20] VITALS: TEMP 98.2
[2024-07-06 07:47] VITALS: TEMP 98.8
[2024-07-06 20:00] VITALS: TEMP 97.6
[2024-07-07 07:50] VITALS: TEMP 98.3
[2024-07-07 20:00] VITALS: TEMP 97.8
[2024-07-08 08:08] VITALS: TEMP 97.7
[2024-07-08 20:39] VITALS: TEMP 99.6
[2024-07-09 07:56] VITALS: TEMP 98.9
[2024-07-09 19:47] VITALS: TEMP 98.3
[2024-07-10 07:29] VITALS: TEMP 98.3
[2024-07-10 20:04] VITALS: TEMP 98.2
[2024-07-11 07:24] VITALS: TEMP 98.3
[2024-07-11 20:00] VITALS: TEMP 98.3
[2024-07-12 07:27] VITALS: TEMP 98.7
[2024-07-12 20:00] VITALS: TEMP 98.7
[2024-07-13 07:53] VITALS: TEMP 98.1
[2024-07-13 20:00] VITALS: TEMP 99.8
[2024-07-14 07:54] VITALS: TEMP 98.8
[2024-07-14 21:00] VITALS: TEMP 101.5
[2024-07-14 23:00] VITALS: TEMP 98.5
[2024-07-14 23:38] VITALS: TEMP 102
[2024-07-15] VITALS (7 sets, daily range): TEMP 98.1–101.1
[2024-07-15 08:48] LABS: ALANINE AMINOTRANSFERASE 25 U/L (16-63); ALBUMIN 3.5 g/dL (3.4-5.0); ALKALINE PHOSPHATASE 79 U/L (50-136); ASPARTATE AMINOTRANSFERASE < 5 U/L (15-37); BILIRUBIN,TOTAL 0.7 mg/dL (0.2-1.0); CALCIUM 9.1 mg/dL (8.5-10.1); CARBON DIOXIDE 21 mmol/L (21-32); CHLORIDE 100 mmol/L (98-107); CREATININE 0.7 mg/dL (0.6-1.3); GLUCOSE 215 mg/dL (74-106); MAGNESIUM 1.7 mg/dL (1.8-2.4); PHOSPHOROUS 3.2 mg/dL (2.5-4.9); POTASSIUM 3.4 mmol/L (3.5-5.1); SODIUM SERUM 134 mmol/L (136-145); TOTAL PROTEIN, SERUM 7.5 g/dL (6.4-8.2); UREA NITROGEN, BLOOD 10 mg/dL (7-18)
[2024-07-15 08:54] LABS: BASOPHILS # (AUTO) 0.1 K/UL (0.0-0.2); BASOPHILS % (AUTO) 0.9 % (0.0-2.0); EOSINOPHILS % (AUTO) 0.2 % (0.0-7.0); HEMATOCRIT 37.8 % (36.7-47.1); HEMOGLOBIN 13.1 g/dL (12.5-16.3); LYMPHOCYTES # (AUTO) 0.4 K/uL (0.8-4.8); LYMPHOCYTES % (AUTO) 4.1 % (20.5-51.5); MEAN CORPUSCULAR HEMOGLOBIN 33.8 uug (23.8-33.4); MEAN CORPUSCULAR HGB CONC 35 g/dL (32.5-36.3); MEAN CORPUSCULAR VOLUME 97.2 fL (73.0-96.2); MONOCYTES # (AUTO) 0.7 K/uL (0.1-1.30); MONOCYTES % (AUTO) 6.8 % (0.0-11.0); NEUTROPHILS # (AUTO) 9.6 K/uL (1.8-8.9); PLATELET COUNT (AUTO) 263 K/uL (152-348); RED BLOOD CELL COUNT(AUTO) 3.89 MIL/uL (4.06-5.63); RED CELL DISTRIBUTION WIDTH 14.1 % (12.1-16.2); WHITE BLOOD COUNT (AUTO) 10.9 K/uL (3.6-10.2)
[2024-07-15 08:55] LABS: DIFFERENTIAL COMMENT 1
[2024-07-15] MEDS ORDERED: POTASSIUM CHLORIDE 10 MEQ TAB.PRT.SR XX ONE (14:15)
[2024-07-15] MEDS: ONDANSETRON 4 MG/2 ML VIAL IV PRN (17:33)
[2024-07-15] MEDS: MAGNESIUM OXIDE 400 MG TABLET GT ONE (17:37)
[2024-07-15] MEDS: ACETAMINOPHEN 650 MG SUPP.RECT RC PRN (18:04)
[2024-07-15] MEDS: POTASSIUM CHLORIDE IV PRN (20:22)
[2024-07-15] MEDS: NACL IV PRN (20:22)
[2024-07-15] MEDS: D5 IV PRN (20:22)
[2024-07-15] MEDS ORDERED: LINEZOLID 600 MG TABLET GT SCH (21:00)
[2024-07-15] MEDS ORDERED: AVIBACTAM IV SCH (22:00)
[2024-07-15] MEDS ORDERED: METRONIDAZOLE 500 MG TABLET GT SCH (22:00)
[2024-07-15] MEDS ORDERED: CEFTAZIDIME IV SCH (22:00)
[2024-07-15] MEDS ORDERED: NORMAL SALINE IV SCH (22:00)
[2024-07-16 00:38] LABS: *BILIRUBIN,URIN NEGATIVE (NEGATIVE); *BLOOD, URINE 2+ (NEGATIVE); *CLARITY,URINE CLEAR (CLEAR); *COLOR,URINE YELLOW (YELLOW); *KETONES,URINE NEGATIVE (NEGATIVE); *PROTEIN,URINE 1+ (NEGATIVE); *UROBILINOGEN,URINE 0.2 E.U./dl (NORMAL); LEUKOCYTE ESTERASE ,URINE NEGATIVE (NEGATIVE); NITRITE, URINE NEGATIVE (NEGATIVE); UGLUCOSE 2+ (NEGATIVE)
[2024-07-16 00:45] LABS: BACTERIA,URINE FEW /HPF (NONE SEEN); MUCUS,URINE FEW /LPF (0-FEW); SQUAMOUS EPITHELIAL CELL,UR NONE SEEN /HPF (NONE SEEN); URINE AMORPHOUS URATE MANY /HPF; WBC,URINE 0-3 /HPF (0-3)
[2024-07-16 04:00] VITALS: TEMP 98.6
[2024-07-16 06:13] LABS: BASOPHILS % (AUTO) 0.1 % (0.0-2.0); EOSINOPHILS % (AUTO) 0.1 % (0.0-7.0); HEMATOCRIT 36.1 % (36.7-47.1); HEMOGLOBIN 12.4 g/dL (12.5-16.3); LYMPHOCYTES # (AUTO) 1.3 K/uL (0.8-4.8); LYMPHOCYTES % (AUTO) 15.8 % (20.5-51.5); MEAN CORPUSCULAR HEMOGLOBIN 33.7 uug (23.8-33.4); MEAN CORPUSCULAR HGB CONC 35 g/dL (32.5-36.3); MEAN CORPUSCULAR VOLUME 97.8 fL (73.0-96.2); MONOCYTES # (AUTO) 1.2 K/uL (0.1-1.30); MONOCYTES % (AUTO) 15.1 % (0.0-11.0); NEUTROPHILS # (AUTO) 5.4 K/uL (1.8-8.9); NEUTROPHILS % (AUTO) 68.9 % (38.5-71.5); PLATELET COUNT (AUTO) 246 K/uL (152-348); RED BLOOD CELL COUNT(AUTO) 3.69 MIL/uL (4.06-5.63); RED CELL DISTRIBUTION WIDTH 13.7 % (12.1-16.2); WHITE BLOOD COUNT (AUTO) 7.9 K/uL (3.6-10.2)
[2024-07-16 06:22] LABS: CALCIUM 9.3 mg/dL (8.5-10.1); CARBON DIOXIDE 25 mmol/L (21-32); CHLORIDE 104 mmol/L (98-107); CREATININE 0.6 mg/dL (0.6-1.3); GLUCOSE 160 mg/dL (74-106); SODIUM SERUM 137 mmol/L (136-145); UREA NITROGEN, BLOOD 9 mg/dL (7-18)
[2024-07-16 06:35] LABS: DIFFERENTIAL COMMENT 1; LACTIC ACID 2.4 mmol/L (0.4-2.0)
[2024-07-16 07:41] VITALS: TEMP 97.8
[2024-07-16 08:14] LABS: LYMPHOCYTES % (MANUAL) 23 % (20-40); MONOCYTES % (MANUAL) 12 % (2-10); NEUTROPHILS % (MANUAL) 65 % (42-75); PLATELET ESTIMATE ADEQUATE
[2024-07-16] MEDS ORDERED: MICAFUNGIN SODIUM 100 MG in IV NORMAL SALINE 100 ML IV SCH (09:00)
[2024-07-16] MEDS: ACETAMINOPHEN 650 MG SUPP.RECT RC PRN (14:26)
[2024-07-16 20:08] VITALS: TEMP 98.5
[2024-07-16] MEDS: ONDANSETRON 4 MG/2 ML VIAL IV PRN (22:18)
[2024-07-17 07:23] VITALS: TEMP 98.8
[2024-07-17 20:05] VITALS: TEMP 98.6
[2024-07-18 07:21] VITALS: TEMP 98.9
[2024-07-18 19:55] VITALS: TEMP 98.5
[2024-07-19 07:22] VITALS: TEMP 98
[2024-07-19 19:52] VITALS: TEMP 99
[2024-07-20 04:03] VITALS: TEMP 98.4
[2024-07-20 07:50] VITALS: TEMP 98.8
[2024-07-20 19:51] VITALS: TEMP 98.3
[2024-07-21 07:39] VITALS: TEMP 98.8
[2024-07-21 20:00] VITALS: TEMP 97.8
[2024-07-22 07:54] VITALS: TEMP 97.8
[2024-07-22 20:00] VITALS: TEMP 97.1
[2024-07-23 07:32] VITALS: TEMP 98.5
[2024-07-23 19:39] VITALS: TEMP 97.6
[2024-07-24 06:43] LABS: BASOPHILS % (AUTO) 0.7 % (0.0-2.0); EOSINOPHILS # (AUTO) 0.1 K/uL (0.0-0.7); EOSINOPHILS % (AUTO) 2.5 % (0.0-7.0); HEMATOCRIT 38.4 % (36.7-47.1); HEMOGLOBIN 13.1 g/dL (12.5-16.3); LYMPHOCYTES # (AUTO) 1.8 K/uL (0.8-4.8); LYMPHOCYTES % (AUTO) 37.7 % (20.5-51.5); MEAN CORPUSCULAR HEMOGLOBIN 33.5 uug (23.8-33.4); MEAN CORPUSCULAR HGB CONC 34 g/dL (32.5-36.3); MONOCYTES # (AUTO) 0.7 K/uL (0.1-1.30); MONOCYTES % (AUTO) 13.7 % (0.0-11.0); NEUTROPHILS # (AUTO) 2.2 K/uL (1.8-8.9); NEUTROPHILS % (AUTO) 45.4 % (38.5-71.5); PLATELET COUNT (AUTO) 225 K/uL (152-348); RED BLOOD CELL COUNT(AUTO) 3.92 MIL/uL (4.06-5.63); RED CELL DISTRIBUTION WIDTH 13.8 % (12.1-16.2); WHITE BLOOD COUNT (AUTO) 4.9 K/uL (3.6-10.2)
[2024-07-24 06:53] LABS: ALANINE AMINOTRANSFERASE 29 U/L (16-63); ALBUMIN 3.3 g/dL (3.4-5.0); ALKALINE PHOSPHATASE 81 U/L (50-136); ASPARTATE AMINOTRANSFERASE < 5 U/L (15-37); BILIRUBIN,TOTAL 0.4 mg/dL (0.2-1.0); CALCIUM 9.3 mg/dL (8.5-10.1); CARBON DIOXIDE 25 mmol/L (21-32); CHLORIDE 104 mmol/L (98-107); CREATININE 0.6 mg/dL (0.6-1.3); GLUCOSE 151 mg/dL (74-106); MAGNESIUM 2.1 mg/dL (1.8-2.4); PHOSPHOROUS 5.2 mg/dL (2.5-4.9); POTASSIUM 3.8 mmol/L (3.5-5.1); SODIUM SERUM 138 mmol/L (136-145); TOTAL PROTEIN, SERUM 7.1 g/dL (6.4-8.2); UREA NITROGEN, BLOOD 15 mg/dL (7-18)
[2024-07-24 07:01] LABS: DIFFERENTIAL COMMENT 1
[2024-07-24 07:36] VITALS: TEMP 97.8
[2024-07-24 19:54] VITALS: TEMP 98.2
[2024-07-25 07:26] VITALS: TEMP 98.5
[2024-07-25 07:43] VITALS: O2SAT 100
[2024-07-25 19:57] VITALS: TEMP 97.7
[2024-07-26 07:36] VITALS: TEMP 98.8
[2024-07-26 20:02] VITALS: TEMP 98.3
[2024-07-27 07:56] VITALS: TEMP 98.1
[2024-07-27 20:14] VITALS: TEMP 98.3
[2024-07-28 07:47] VITALS: TEMP 98.4
[2024-07-28 20:07] VITALS: TEMP 98
[2024-07-29 07:55] VITALS: TEMP 98.2
[2024-07-29 20:03] VITALS: TEMP 98
[2024-07-30 08:07] VITALS: TEMP 97.3
[2024-07-30 19:51] VITALS: TEMP 99.1
[2024-07-31 07:27] VITALS: TEMP 98.9
[2024-07-31 20:21] VITALS: TEMP 98.5
[2024-08-01 07:35] VITALS: TEMP 97.4
[2024-08-01] MEDS: NEOMY/BACITRA/POLYMYXIN B OINT UD PACKET TP SCH (12:51)
[2024-08-01 19:41] VITALS: TEMP 97.8
[2024-08-02 07:30] VITALS: TEMP 98.1
[2024-08-02 19:38] VITALS: TEMP 98.2
[2024-08-03 07:24] VITALS: TEMP 98.7
[2024-08-03 19:42] VITALS: TEMP 98.7
[2024-08-04 07:59] VITALS: TEMP 98.2
[2024-08-04 19:46] VITALS: TEMP 97.1
[2024-08-05 07:18] VITALS: TEMP 98
[2024-08-05 20:12] VITALS: TEMP 98.8
[2024-08-05 23:52] VITALS: TEMP 99.8
[2024-08-06 02:46] VITALS: TEMP 99.2
[2024-08-06 02:53] VITALS: TEMP 99.2
[2024-08-06 06:06] VITALS: TEMP 98
[2024-08-06] MEDS: IV NORMAL SALINE 1000 ML BAG IV ONE (06:45)
[2024-08-06 07:30] VITALS: TEMP 98.8
[2024-08-06 19:54] VITALS: TEMP 99.4
[2024-08-06 20:40] VITALS: TEMP 98.5
[2024-08-07 04:29] VITALS: TEMP 97.4
[2024-08-07] MEDS: PANTOPRAZOLE ORAL SUSPENSION 40 MG SUSPDR.PKT GT SCH (06:25)
[2024-08-07 07:29] VITALS: TEMP 98.3
[2024-08-07 20:00] VITALS: TEMP 99.2
[2024-08-08] MEDS ORDERED: ESOMEPRAZOLE MAGNESIUM 40 MG SUSPDR.PKT GT SCH (06:00)
[2024-08-08 07:31] VITALS: TEMP 98
[2024-08-08 20:00] VITALS: TEMP 97.8
[2024-08-08 21:38] VITALS: TEMP 97.8
[2024-08-09] MEDS: OMEPRAZOLE 40 MG CAPSULE.DR GT SCH (05:21)
[2024-08-09 07:30] VITALS: TEMP 97.8
[2024-08-09 19:42] VITALS: TEMP 99.6
[2024-08-10 07:55] VITALS: TEMP 97.5
[2024-08-10 19:49] VITALS: TEMP 98.6
[2024-08-11 07:30] VITALS: TEMP 98.2
[2024-08-11 19:40] VITALS: TEMP 98.7
[2024-08-12 07:30] VITALS: TEMP 98.6
[2024-08-12 19:48] VITALS: TEMP 98.7
[2024-08-13 08:06] VITALS: TEMP 97.8
[2024-08-13 19:47] VITALS: TEMP 98.6
[2024-08-14 06:47] LABS: BASOPHILS % (AUTO) 0.3 % (0.0-2.0); EOSINOPHILS # (AUTO) 0.1 K/uL (0.0-0.7); EOSINOPHILS % (AUTO) 2.4 % (0.0-7.0); HEMATOCRIT 36.6 % (36.7-47.1); HEMOGLOBIN 13.1 g/dL (12.5-16.3); LYMPHOCYTES # (AUTO) 2.2 K/uL (0.8-4.8); LYMPHOCYTES % (AUTO) 35.1 % (20.5-51.5); MEAN CORPUSCULAR HGB CONC 36 g/dL (32.5-36.3); MEAN CORPUSCULAR VOLUME 95.2 fL (73.0-96.2); MONOCYTES # (AUTO) 0.7 K/uL (0.1-1.30); NEUTROPHILS # (AUTO) 3.1 K/uL (1.8-8.9); NEUTROPHILS % (AUTO) 50.2 % (38.5-71.5); PLATELET COUNT (AUTO) 225 K/uL (152-348); RED BLOOD CELL COUNT(AUTO) 3.85 MIL/uL (4.06-5.63); RED CELL DISTRIBUTION WIDTH 13.1 % (12.1-16.2); WHITE BLOOD COUNT (AUTO) 6.2 K/uL (3.6-10.2)
[2024-08-14 07:07] LABS: ALANINE AMINOTRANSFERASE 47 U/L (16-63); ALBUMIN 3.4 g/dL (3.4-5.0); ALKALINE PHOSPHATASE 92 U/L (50-136); ASPARTATE AMINOTRANSFERASE 12 U/L (15-37); BILIRUBIN,TOTAL 0.3 mg/dL (0.2-1.0); CALCIUM 9.6 mg/dL (8.5-10.1); CARBON DIOXIDE 26 mmol/L (21-32); CHLORIDE 103 mmol/L (98-107); CREATININE 0.6 mg/dL (0.6-1.3); GLUCOSE 109 mg/dL (74-106); PHOSPHOROUS 5.2 mg/dL (2.5-4.9); POTASSIUM 3.8 mmol/L (3.5-5.1); SODIUM SERUM 138 mmol/L (136-145); TOTAL PROTEIN, SERUM 7.3 g/dL (6.4-8.2); UREA NITROGEN, BLOOD 15 mg/dL (7-18)
[2024-08-14 07:30] VITALS: TEMP 97.8
[2024-08-14 20:03] VITALS: TEMP 98.5
[2024-08-15 07:26] VITALS: TEMP 97.7
[2024-08-15 19:59] VITALS: TEMP 98.7
[2024-08-16 07:25] VITALS: TEMP 97.5
[2024-08-16 19:57] VITALS: TEMP 98.1
[2024-08-17 07:34] VITALS: TEMP 98
[2024-08-17 21:10] VITALS: BP 95/63; TEMP 98.3; O2SAT 96
[2024-08-18 08:03] VITALS: TEMP 99.1
[2024-08-18 19:42] VITALS: TEMP 98.3
[2024-08-19 07:56] VITALS: TEMP 98.8
[2024-08-19 19:30] VITALS: TEMP 98.3
[2024-08-20 07:35] VITALS: TEMP 97.8
[2024-08-20 20:00] VITALS: TEMP 98.5
[2024-08-21 07:21] LABS: BASOPHILS % (AUTO) 0.5 % (0.0-2.0); EOSINOPHILS # (AUTO) 0.1 K/uL (0.0-0.7); EOSINOPHILS % (AUTO) 2.6 % (0.0-7.0); HEMATOCRIT 37.3 % (36.7-47.1); HEMOGLOBIN 13.2 g/dL (12.5-16.3); LYMPHOCYTES # (AUTO) 2.2 K/uL (0.8-4.8); LYMPHOCYTES % (AUTO) 44.5 % (20.5-51.5); MEAN CORPUSCULAR HEMOGLOBIN 33.5 uug (23.8-33.4); MEAN CORPUSCULAR HGB CONC 35 g/dL (32.5-36.3); MEAN CORPUSCULAR VOLUME 94.7 fL (73.0-96.2); MONOCYTES # (AUTO) 0.6 K/uL (0.1-1.30); MONOCYTES % (AUTO) 11.9 % (0.0-11.0); NEUTROPHILS % (AUTO) 40.5 % (38.5-71.5); PLATELET COUNT (AUTO) 217 K/uL (152-348); RED BLOOD CELL COUNT(AUTO) 3.94 MIL/uL (4.06-5.63); RED CELL DISTRIBUTION WIDTH 13.3 % (12.1-16.2); WHITE BLOOD COUNT (AUTO) 4.8 K/uL (3.6-10.2)
[2024-08-21 07:26] VITALS: TEMP 97.8
[2024-08-21 07:32] LABS: DIFFERENTIAL COMMENT 1
[2024-08-21 08:20] LABS: CALCIUM 9.7 mg/dL (8.5-10.1); CREATININE 0.7 mg/dL (0.6-1.3); MAGNESIUM 2.1 mg/dL (1.8-2.4); PHOSPHOROUS 4.4 mg/dL (2.5-4.9)
[2024-08-21 09:03] LABS: POTASSIUM 3.9 mmol/L (3.5-5.1)
[2024-08-21 19:46] VITALS: TEMP 98.4
[2024-08-22 07:26] VITALS: TEMP 97.9
[2024-08-22 19:41] VITALS: TEMP 99
[2024-08-23 07:50] VITALS: TEMP 101
[2024-08-23 20:27] VITALS: TEMP 99.9
[2024-08-24] MEDS: PROCHLORPERAZINE MALEATE 25 MG SUPP.RECT RC PRN (04:35)
[2024-08-24 07:36] LABS: BASOPHILS % (AUTO) 0.2 % (0.0-2.0); HEMATOCRIT 38.1 % (36.7-47.1); HEMOGLOBIN 13.3 g/dL (12.5-16.3); LYMPHOCYTES # (AUTO) 2.3 K/uL (0.8-4.8); LYMPHOCYTES % (AUTO) 14.4 % (20.5-51.5); MEAN CORPUSCULAR HEMOGLOBIN 33.1 uug (23.8-33.4); MEAN CORPUSCULAR HGB CONC 35 g/dL (32.5-36.3); MEAN CORPUSCULAR VOLUME 94.7 fL (73.0-96.2); MONOCYTES # (AUTO) 1.8 K/uL (0.1-1.30); MONOCYTES % (AUTO) 11.3 % (0.0-11.0); NEUTROPHILS # (AUTO) 11.7 K/uL (1.8-8.9); NEUTROPHILS % (AUTO) 74.1 % (38.5-71.5); PLATELET COUNT (AUTO) 236 K/uL (152-348); RED BLOOD CELL COUNT(AUTO) 4.03 MIL/uL (4.06-5.63); RED CELL DISTRIBUTION WIDTH 12.8 % (12.1-16.2); WHITE BLOOD COUNT (AUTO) 15.9 K/uL (3.6-10.2)
[2024-08-24 07:41] LABS: DIFFERENTIAL COMMENT 1
[2024-08-24 07:56] VITALS: TEMP 97.8
[2024-08-24 07:59] LABS: ALBUMIN 3.9 g/dL (3.4-5.0); BILIRUBIN,TOTAL 0.8 mg/dL (0.2-1.0); CALCIUM 9.8 mg/dL (8.5-10.1); CREATININE 0.7 mg/dL (0.6-1.3); POTASSIUM 3.8 mmol/L (3.5-5.1); TOTAL PROTEIN, SERUM 8.4 g/dL (6.4-8.2)
[2024-08-24 08:25] LABS: *BILIRUBIN,URIN NEGATIVE (NEGATIVE); *BLOOD, URINE NEGATIVE (NEGATIVE); *CLARITY,URINE CLEAR (CLEAR); *COLOR,URINE YELLOW (YELLOW); *KETONES,URINE NEGATIVE (NEGATIVE); *PROTEIN,URINE NEGATIVE (NEGATIVE); *UROBILINOGEN,URINE 0.2 E.U./dl (NORMAL); LEUKOCYTE ESTERASE ,URINE NEGATIVE (NEGATIVE); NITRITE, URINE NEGATIVE (NEGATIVE); PH,URINE 6.5 (5.0-8.0); UGLUCOSE TRACE (NEGATIVE)
[2024-08-24 08:26] LABS: BACTERIA,URINE FEW /HPF (NONE SEEN); WBC,URINE 0-3 /HPF (0-3)
[2024-08-24 20:00] VITALS: TEMP 99.4
[2024-08-25 07:40] VITALS: TEMP 99.7
[2024-08-25 08:20] LABS: BASOPHILS % (AUTO) 0.4 % (0.0-2.0); EOSINOPHILS % (AUTO) 0.4 % (0.0-7.0); HEMATOCRIT 38.2 % (36.7-47.1); HEMOGLOBIN 13.6 g/dL (12.5-16.3); LYMPHOCYTES % (AUTO) 26.2 % (20.5-51.5); MEAN CORPUSCULAR HEMOGLOBIN 33.8 uug (23.8-33.4); MEAN CORPUSCULAR HGB CONC 36 g/dL (32.5-36.3); MEAN CORPUSCULAR VOLUME 94.9 fL (73.0-96.2); MONOCYTES # (AUTO) 0.7 K/uL (0.1-1.30); MONOCYTES % (AUTO) 9.5 % (0.0-11.0); NEUTROPHILS # (AUTO) 4.8 K/uL (1.8-8.9); NEUTROPHILS % (AUTO) 63.5 % (38.5-71.5); PLATELET COUNT (AUTO) 197 K/uL (152-348); RED BLOOD CELL COUNT(AUTO) 4.03 MIL/uL (4.06-5.63); RED CELL DISTRIBUTION WIDTH 13.2 % (12.1-16.2); WHITE BLOOD COUNT (AUTO) 7.6 K/uL (3.6-10.2)
[2024-08-25 08:24] LABS: DIFFERENTIAL COMMENT 1
[2024-08-25 15:20] VITALS: O2SAT 99
[2024-08-25 20:00] VITALS: TEMP 98.8
[2024-08-26 08:00] VITALS: TEMP 99.5
[2024-08-26 19:47] VITALS: TEMP 98.9
[2024-08-27 07:28] VITALS: TEMP 99
[2024-08-27 19:35] VITALS: TEMP 99.5
[2024-08-28 07:34] VITALS: TEMP 98.8
[2024-08-28 20:25] VITALS: TEMP 97.6
[2024-08-29 07:34] VITALS: TEMP 97.6
[2024-08-29 11:06] LABS: ADENOVIRUS Not Detected (Not Detected); CORONAVIRUS 229E Not Detected (Not Detected); CORONAVIRUS HKU1 Not Detected (Not Detected); CORONAVIRUS NL63 Not Detected (Not Detected); CORONAVIRUS OC43 Not Detected (Not Detected); NP BORDETELLA PERTUSIS Not Detected (Not Detected); NP CHLAMYDOPHILA PNEUMONIAE Not Detected (Not Detected); NP HUMAN METAPNEUMOVIRUS Not Detected (Not Detected); NP HUMAN RHINO/ENTERO VIRUS Not Detected (Not Detected); NP INFLUENZA A Not Detected (Not Detected); NP INFLUENZA A/H1 Not Detected (Not Detected); NP INFLUENZA A/H1-2009 Not Detected (Not Detected); NP INFLUENZA A/H3 Not Detected (Not Detected); NP INFLUENZA B Not Detected (Not Detected); NP MYCOPLASMA PNEUMONIAE Not Detected (Not Detected); NP PARAINFLUENZA 1 Not Detected (Not Detected); NP PARAINFLUENZA 2 Not Detected (Not Detected); NP PARAINFLUENZA 3 Not Detected (Not Detected); NP PARAINFLUENZA 4 Not Detected (Not Detected); NP RESPIRATORY SYNCYTIAL VIRUS Not Detected (Not Detected)
[2024-08-29 20:00] VITALS: TEMP 98.8
[2024-08-30 07:25] VITALS: TEMP 97.7
[2024-08-30 07:28] VITALS: TEMP 98.1
[2024-08-30 20:09] VITALS: TEMP 97.8
[2024-08-31 07:34] VITALS: TEMP 97.8
[2024-08-31 20:07] VITALS: TEMP 98.7
[2024-09-01 07:40] VITALS: TEMP 97.4
[2024-09-01 20:00] VITALS: TEMP 98.1
[2024-09-02 08:00] VITALS: TEMP 97.6
[2024-09-02 20:00] VITALS: TEMP 102.7
[2024-09-02 21:55] LABS: HEMOGLOBIN 14.9 g/dL (12.5-16.3)
[2024-09-02 21:56] LABS: CALCIUM 9.7 mg/dL (8.5-10.1); POTASSIUM 4.1 mmol/L (3.5-5.1)
[2024-09-02 22:00] VITALS: TEMP 100
[2024-09-02 22:00] LABS: BASOPHILS % (AUTO) 0.1 % (0.0-2.0); HEMATOCRIT 42.6 % (36.7-47.1); MEAN CORPUSCULAR HEMOGLOBIN 33.3 uug (23.8-33.4); MEAN CORPUSCULAR HGB CONC 35 g/dL (32.5-36.3); MEAN CORPUSCULAR VOLUME 95.5 fL (73.0-96.2); MONOCYTES # (AUTO) 1.4 K/uL (0.1-1.30); MONOCYTES % (AUTO) 7.2 % (0.0-11.0); NEUTROPHILS # (AUTO) 17.4 K/uL (1.8-8.9); NEUTROPHILS % (AUTO) 87.7 % (38.5-71.5); PLATELET COUNT (AUTO) 323 K/uL (152-348); RED BLOOD CELL COUNT(AUTO) 4.46 MIL/uL (4.06-5.63); RED CELL DISTRIBUTION WIDTH 13.2 % (12.1-16.2); WHITE BLOOD COUNT (AUTO) 19.9 K/uL (3.6-10.2)
[2024-09-02 22:02] LABS: BILIRUBIN,TOTAL 0.4 mg/dL (0.2-1.0); MAGNESIUM 2.1 mg/dL (1.8-2.4); PHOSPHOROUS 3.8 mg/dL (2.5-4.9); TOTAL PROTEIN, SERUM 8.6 g/dL (6.4-8.2)
[2024-09-02 22:04] LABS: DIFFERENTIAL COMMENT 1
[2024-09-02 22:14] LABS: LACTIC ACID 3.8 mmol/L (0.4-2.0)
[2024-09-02 22:18] LABS: *BILIRUBIN,URIN NEGATIVE (NEGATIVE); *BLOOD, URINE NEGATIVE (NEGATIVE); *CLARITY,URINE CLEAR (CLEAR); *COLOR,URINE YELLOW (YELLOW); *KETONES,URINE NEGATIVE (NEGATIVE); *PROTEIN,URINE 1+ (NEGATIVE); *UROBILINOGEN,URINE 0.2 E.U./dl (NORMAL); LEUKOCYTE ESTERASE ,URINE NEGATIVE (NEGATIVE); NITRITE, URINE NEGATIVE (NEGATIVE); UGLUCOSE 1+ (NEGATIVE)
[2024-09-02 23:25] VITALS: TEMP 99.2
[2024-09-03] MEDS: IV NORMAL SALINE 1000 ML BAG IV SCH
[2024-09-03] MEDS: CEFEPIME HCL 1 G in IV DEXTROSE 5% 50 ML IV SCH
[2024-09-03 06:47] VITALS: TEMP 99.7
[2024-09-03 07:30] VITALS: TEMP 98.3
[2024-09-03 12:30] VITALS: TEMP 98
[2024-09-03 15:23] LABS: BASOPHILS % (AUTO) 0.1 % (0.0-2.0); EOSINOPHILS % (AUTO) 0.1 % (0.0-7.0); HEMATOCRIT 40.8 % (36.7-47.1); HEMOGLOBIN 13.9 g/dL (12.5-16.3); LYMPHOCYTES # (AUTO) 1.7 K/uL (0.8-4.8); LYMPHOCYTES % (AUTO) 13.9 % (20.5-51.5); MEAN CORPUSCULAR HEMOGLOBIN 32.6 uug (23.8-33.4); MEAN CORPUSCULAR HGB CONC 34 g/dL (32.5-36.3); MEAN CORPUSCULAR VOLUME 96.1 fL (73.0-96.2); MONOCYTES # (AUTO) 1.6 K/uL (0.1-1.30); MONOCYTES % (AUTO) 13.4 % (0.0-11.0); NEUTROPHILS # (AUTO) 8.6 K/uL (1.8-8.9); NEUTROPHILS % (AUTO) 72.5 % (38.5-71.5); PLATELET COUNT (AUTO) 254 K/uL (152-348); RED BLOOD CELL COUNT(AUTO) 4.25 MIL/uL (4.06-5.63); WHITE BLOOD COUNT (AUTO) 11.9 K/uL (3.6-10.2)
[2024-09-03 15:26] LABS: DIFFERENTIAL COMMENT 1
[2024-09-03 15:33] LABS: CARBON DIOXIDE 24 mmol/L (21-32); CHLORIDE 104 mmol/L (98-107); CREATININE 0.6 mg/dL (0.6-1.3); GLUCOSE 193 mg/dL (74-106); MAGNESIUM 2.3 mg/dL (1.8-2.4); PHOSPHOROUS 3.1 mg/dL (2.5-4.9); POTASSIUM 3.9 mmol/L (3.5-5.1); SODIUM SERUM 141 mmol/L (136-145); UREA NITROGEN, BLOOD 7 mg/dL (7-18)
[2024-09-03] MEDS: CEFEPIME HCL 2 GM in IV DEXTROSE 5% 100 ML IV SCH (16:53)
[2024-09-03] MEDS: IV NS 1000 ML 1,000 ML IV SCH (17:47)
[2024-09-03 19:59] VITALS: TEMP 98.4
[2024-09-04] MEDS: CEFEPIME HCL 2 GM in IV DEXTROSE 5% 100 ML IV SCH (01:00)
[2024-09-04 07:26] VITALS: TEMP 99.5
[2024-09-04] MEDS: diphenhydrAMINE 25 MG/10 ML UDC GT PRN (16:40)
[2024-09-04 20:00] VITALS: TEMP 99
[2024-09-04 21:30] VITALS: TEMP 99.1
[2024-09-05 00:42] VITALS: TEMP 98.4
[2024-09-05 05:28] VITALS: TEMP 98.8
[2024-09-05 07:36] VITALS: TEMP 98.2
[2024-09-05 09:49] LABS: BASOPHILS % (AUTO) 0.4 % (0.0-2.0); EOSINOPHILS # (AUTO) 0.1 K/uL (0.0-0.7); EOSINOPHILS % (AUTO) 1.2 % (0.0-7.0); HEMATOCRIT 34.7 % (36.7-47.1); LYMPHOCYTES # (AUTO) 1.5 K/uL (0.8-4.8); LYMPHOCYTES % (AUTO) 25.2 % (20.5-51.5); MEAN CORPUSCULAR HEMOGLOBIN 33.6 uug (23.8-33.4); MEAN CORPUSCULAR HGB CONC 35 g/dL (32.5-36.3); MEAN CORPUSCULAR VOLUME 97.1 fL (73.0-96.2); MONOCYTES # (AUTO) 0.6 K/uL (0.1-1.30); NEUTROPHILS # (AUTO) 3.8 K/uL (1.8-8.9); NEUTROPHILS % (AUTO) 63.2 % (38.5-71.5); PLATELET COUNT (AUTO) 211 K/uL (152-348); RED BLOOD CELL COUNT(AUTO) 3.58 MIL/uL (4.06-5.63)
[2024-09-05 10:09] LABS: DIFFERENTIAL COMMENT 1
[2024-09-05 10:19] LABS: ALBUMIN 3.1 g/dL (3.4-5.0); BILIRUBIN,TOTAL 0.5 mg/dL (0.2-1.0); CALCIUM 9.6 mg/dL (8.5-10.1); CREATININE 0.7 mg/dL (0.6-1.3); POTASSIUM 4.2 mmol/L (3.5-5.1); TOTAL PROTEIN, SERUM 7.2 g/dL (6.4-8.2)
[2024-09-05] MEDS: NORMAL SALINE FLUSH 10 ML DISP.SYRIN IV SCH (10:28)
[2024-09-05 13:02] VITALS: TEMP 98.7
[2024-09-05 20:00] VITALS: TEMP 99.5
[2024-09-06] VITALS: TEMP 98
[2024-09-06 11:22] VITALS: TEMP 98.6
[2024-09-06 20:03] VITALS: TEMP 97.6
[2024-09-07 07:50] VITALS: TEMP 98.2
[2024-09-07 19:54] VITALS: TEMP 97.7
[2024-09-08 07:30] VITALS: TEMP 98
[2024-09-08 19:55] VITALS: TEMP 99.1
[2024-09-09 07:57] VITALS: TEMP 98.4
[2024-09-09 19:59] VITALS: TEMP 99
[2024-09-09] MEDS ORDERED: diphenhydrAMINE 1% CREAM 28.3 GM TUBE TP PRN (22:30)
[2024-09-10 07:39] VITALS: TEMP 97.5
[2024-09-10] MEDS: diphenhydrAMINE 1% CREAM 28.3 GM TUBE TP PRN (13:07)
[2024-09-10 14:03] LABS: BASOPHILS % (AUTO) 0.3 % (0.0-2.0); EOSINOPHILS # (AUTO) 0.4 K/uL (0.0-0.7); EOSINOPHILS % (AUTO) 4.7 % (0.0-7.0); HEMATOCRIT 39.3 % (36.7-47.1); HEMOGLOBIN 13.4 g/dL (12.5-16.3); LYMPHOCYTES # (AUTO) 1.7 K/uL (0.8-4.8); LYMPHOCYTES % (AUTO) 21.5 % (20.5-51.5); MEAN CORPUSCULAR HEMOGLOBIN 32.7 uug (23.8-33.4); MEAN CORPUSCULAR HGB CONC 34 g/dL (32.5-36.3); MEAN CORPUSCULAR VOLUME 96.2 fL (73.0-96.2); MONOCYTES % (AUTO) 12.8 % (0.0-11.0); NEUTROPHILS # (AUTO) 4.9 K/uL (1.8-8.9); NEUTROPHILS % (AUTO) 60.7 % (38.5-71.5); PLATELET COUNT (AUTO) 272 K/uL (152-348); RED BLOOD CELL COUNT(AUTO) 4.09 MIL/uL (4.06-5.63); RED CELL DISTRIBUTION WIDTH 13.2 % (12.1-16.2)
[2024-09-10 14:05] LABS: DIFFERENTIAL COMMENT 1
[2024-09-10 14:16] LABS: ALANINE AMINOTRANSFERASE 33 U/L (16-63); ALBUMIN 3.5 g/dL (3.4-5.0); ALKALINE PHOSPHATASE 92 U/L (50-136); ASPARTATE AMINOTRANSFERASE 6 U/L (15-37); BILIRUBIN,TOTAL 0.4 mg/dL (0.2-1.0); CALCIUM 9.4 mg/dL (8.5-10.1); CARBON DIOXIDE 25 mmol/L (21-32); CHLORIDE 103 mmol/L (98-107); CREATININE 0.6 mg/dL (0.6-1.3); GLUCOSE 149 mg/dL (74-106); POTASSIUM 3.9 mmol/L (3.5-5.1); SODIUM SERUM 138 mmol/L (136-145); TOTAL PROTEIN, SERUM 7.6 g/dL (6.4-8.2); UREA NITROGEN, BLOOD 12 mg/dL (7-18)
[2024-09-10] MEDS: FAMOTIDINE 20 MG TABLET GT SCH (16:39)
[2024-09-10 20:00] VITALS: TEMP 99.2
[2024-09-11 06:24] VITALS: TEMP 98.9
[2024-09-11 07:34] VITALS: TEMP 97.5
[2024-09-11 20:57] VITALS: TEMP 97.9
[2024-09-12 07:38] VITALS: TEMP 98.8
[2024-09-12] MEDS ORDERED: predniSONE 20 MG TABLET GT ONE (10:45)
[2024-09-12] MEDS: predniSONE 5 MG TABLET GT ONE (10:50)
[2024-09-12 20:54] VITALS: TEMP 98.6
[2024-09-13 07:28] VITALS: TEMP 97.6
[2024-09-13 20:00] VITALS: TEMP 98.9
[2024-09-14 07:37] VITALS: TEMP 97.5
[2024-09-14 20:00] VITALS: TEMP 97.6
[2024-09-15 07:44] VITALS: TEMP 97.8
[2024-09-15 20:14] VITALS: TEMP 97.3
[2024-09-16 07:51] VITALS: TEMP 97.3
[2024-09-16 19:47] VITALS: TEMP 97.7
[2024-09-17 07:39] VITALS: TEMP 97.8
[2024-09-17 19:44] VITALS: TEMP 98.4
[2024-09-18 07:32] VITALS: TEMP 98.7
[2024-09-18 19:59] VITALS: TEMP 97.9
[2024-09-19 07:20] VITALS: TEMP 98.7
[2024-09-19 20:17] VITALS: TEMP 97.4
[2024-09-20 07:36] VITALS: TEMP 97.6
[2024-09-20 20:00] VITALS: TEMP 99.2
[2024-09-21 03:15] VITALS: TEMP 98.5
[2024-09-21 07:46] VITALS: TEMP 99.9
[2024-09-21 15:00] VITALS: TEMP 99.1
[2024-09-21 19:59] VITALS: TEMP 102.6
[2024-09-21 20:09] VITALS: TEMP 100.1
[2024-09-21 21:54] VITALS: TEMP 99.1
[2024-09-22] VITALS (7 sets, daily range): TEMP 97.1–100.3
[2024-09-23 07:45] VITALS: TEMP 98.8
[2024-09-23 19:30] VITALS: TEMP 97.5
[2024-09-24 07:50] VITALS: TEMP 97.7
== END 2024-09-24 17:31 | disposition short-term general hospital (02) | DRG 207 ==
LOC: SA 16:15
PROVIDERS: ADMIT Internal Medicine; ATTEND Internal Medicine
PROC: 5A1955Z Respiratory Ventilation, Greater than 96 Consecutive Hours (ICD-10-PCS; principal; 2024-06-23)
PROC: 05HB33Z Insertion of Infusion Device into Right Basilic Vein, Percutaneous Approach (ICD-10-PCS; 2024-09-04)
DX: J96.21 Acute and chronic respiratory failure with hypoxia (principal); G92.8 Other toxic encephalopathy; G93.1 Anoxic brain damage, not elsewhere classified; G91.2 (Idiopathic) normal pressure hydrocephalus; E87.20 Acidosis, unspecified; Z99.11 Dependence on respirator [ventilator] status; Z86.74 Personal history of sudden cardiac arrest; Z88.1 Allergy status to other antibiotic agents; Z91.041 Radiographic dye allergy status; R13.10 Dysphagia, unspecified; K80.20 Calculus of gallbladder without cholecystitis without obstruction; K43.9 Ventral hernia without obstruction or gangrene; G40.909 Epilepsy, unspecified, not intractable, without status epilepticus; Z86.16 Personal history of COVID-19; Z93.0 Tracheostomy status; Z93.1 Gastrostomy status; Z98.2 Presence of cerebrospinal fluid drainage device; Z87.442 Personal history of urinary calculi; E78.1 Pure hyperglyceridemia; D72.829 Elevated white blood cell count, unspecified; R21 Rash and other nonspecific skin eruption; R50.9 Fever, unspecified; K21.9 Gastro-esophageal reflux disease without esophagitis; Z93.4 Other artificial openings of gastrointestinal tract status; T85.730D Infection and inflammatory reaction due to ventricular intracranial (communicating) shunt, subsequent encounter; Y82.8 Other medical devices associated with adverse incidents; Z79.899 Other long term (current) drug therapy
CPT/HCPCS: 36415; 70030-TC; 71045; 74018; 76705; 83605; 83735; 84100; 84146; 85025; 86140; 87040; 94003; 94640; A4663; A6209; C1758; J0692; J0714; J1644; J2405; J3490

== ENCOUNTER 2024-09-24 12:22 | Emergency (ER) | payer MEDICARE, OTHER ==
[~2024-09-24] VITALS: Ht 152.4 cm; Wt 54.4 kg
[2024-09-24] MEDS ORDERED: NOREPINEPHRINE 8MG/NS 250ML 250 ML IV ONE (12:29)
[2024-09-24 12:52] LABS: BASOPHILS % (AUTO) 0.5 % (0.0-2.0); EOSINOPHILS # (AUTO) 0.2 K/uL (0.0-0.7); EOSINOPHILS % (AUTO) 1.8 % (0.0-7.0); HEMATOCRIT 40.5 % (36.7-47.1); HEMOGLOBIN 13.1 g/dL (12.5-16.3); LYMPHOCYTES # (AUTO) 4.6 K/uL (0.8-4.8); LYMPHOCYTES % (AUTO) 49.4 % (20.5-51.5); MEAN CORPUSCULAR HEMOGLOBIN 33.3 uug (23.8-33.4); MEAN CORPUSCULAR HGB CONC 32 g/dL (32.5-36.3); MEAN CORPUSCULAR VOLUME 103.1 fL (73.0-96.2); MONOCYTES # (AUTO) 0.7 K/uL (0.1-1.30); MONOCYTES % (AUTO) 7.7 % (0.0-11.0); NEUTROPHILS # (AUTO) 3.8 K/uL (1.8-8.9); NEUTROPHILS % (AUTO) 40.6 % (38.5-71.5); PLATELET COUNT (AUTO) 246 K/uL (152-348); RED BLOOD CELL COUNT(AUTO) 3.93 MIL/uL (4.06-5.63); RED CELL DISTRIBUTION WIDTH 13.7 % (12.1-16.2); WHITE BLOOD COUNT (AUTO) 9.3 K/uL (3.6-10.2)
[2024-09-24 12:57] LABS: DIFFERENTIAL COMMENT 1
[2024-09-24 13:10] LABS: ALANINE AMINOTRANSFERASE 46 U/L (16-63); ALBUMIN 3.9 g/dL (3.4-5.0); ALKALINE PHOSPHATASE 108 U/L (50-136); ASPARTATE AMINOTRANSFERASE 14 U/L (15-37); BILIRUBIN,DIRECT 0.1 mg/dL (0.0-0.2); BILIRUBIN,TOTAL 0.5 mg/dL (0.2-1.0); CARBON DIOXIDE 22 mmol/L (21-32); CHLORIDE 106 mmol/L (98-107); GLUCOSE 138 mg/dL (74-106); SODIUM SERUM 150 mmol/L (136-145); TOTAL PROTEIN, SERUM 8.2 g/dL (6.4-8.2); UREA NITROGEN, BLOOD 15 mg/dL (7-18)
[2024-09-24 13:38] VITALS: O2SAT 78
== END 2024-09-24 19:03 ==
LOC: ER 12:22
DX: T79.7XXA Traumatic subcutaneous emphysema, initial encounter (principal); J93.9 Pneumothorax, unspecified; J96.02 Acute respiratory failure with hypercapnia; G82.50 Quadriplegia, unspecified; Z46.82 Encounter for fitting and adjustment of non-vascular catheter; Z98.2 Presence of cerebrospinal fluid drainage device; Z99.11 Dependence on respirator [ventilator] status; Z86.74 Personal history of sudden cardiac arrest; Z88.1 Allergy status to other antibiotic agents; Z88.7 Allergy status to serum and vaccine; X58.XXXA Exposure to other specified factors, initial encounter; Y93.89 Activity, other specified; Y92.89 Other specified places as the place of occurrence of the external cause; Y99.8 Other external cause status
CPT/HCPCS: 36415; 71045; 82803; 84484; 85025; 85730; 94002; A4606; A4663